=== PATIENT | male | born 1955 | race Caucasian/White ===

== ENCOUNTER 2018-02-07 18:53 | Emergency (ER) | payer OTHER, SELFPAY ==
[2018-02-07 18:56] VITALS: BP 146/64; PULSE 83; RESP 18; TEMP 36; O2SAT 98; BMI 30.5
--- NOTE | 2018-02-07 19:30 | RAD_ITS ---
XR Knee Complete 4 Views or More INDICATION: fall. right knee pain COMPARISON: September 2014. TECHNIQUE: 4 views of the right knee FINDINGS: Degenerative changes are noted at the right knee with subchondral cyst formation at the medial femoral condyle. Appearance is stable compared to 2014. The joint spaces are decreased at the medial compartment and patellofemoral compartment. Moderate marginal osteophytes are noted. A small suprapatellar knee joint effusion is suggested. Vascular calcifications are noted. RAD/Knee 4 or More Views IMPRESSION: Degenerative changes. No convincing plain film evidence of acute fracture. at 2019 Reported and signed by: Kate Sargent MD Electronically Signed: Kate Sargent MD at 19:17 EDT Tel , Service support ,
--- NOTE | 2018-02-07 21:07 | ED.VISSUMM ---
- ER Visit Summary Date of Service: 02/07/18 Chief Complaint: Fall from ladder History of Present Illness: The patient is a 62 M fall from ladder. Patient was on about a 3 foot step ladder today when he suffered a fall when he collapsed. Patient states that he landed on his feet and suffered a twisting injury as he fell to the left. Patient states that he was initially able to ambulate when he had the initial shot of adrenaline from the fall, but now is unable to bear weight on his right knee. He does report that he has prior injury to that right knee, but states that it was never this bad. Patient denies any other injuries. Physical Examination: Primary survey: Airway is patent, breath sounds equal bilateral, central peripheral pulses 2+ and symmetric, GCS 15 out of 15. Vitals within normal limits. Secondary survey: General: Well-nourished well-developed no acute distress Head: Normocephalic atraumatic Eyes: PERRLA, EOMI ENT: TMs clear no hemotympanum no drainage Neck: Nontender full range of motion, no step-offs noted Heart: Regular rate and rhythm no murmurs Lungs: Respirations nondistressed, lung sounds clear to auscultation bilaterally, chest nontender, normal chest excursion bilaterally Abdomen: Soft nontender nondistended normal bowel sounds no palpable abdominal masses Back: Nontender no step-offs noted Extremities: Right lower extremity exam shows effusion of the right knee with pain on range of motion with no crepitus or deformity. There is some medial joint line tenderness to palpation noted. No laxity with Ventura, posterior drawer, varus, or valgus stress. Skin: Normal color no trauma Neuro: Alert and oriented ?4, GCS 15 out of 15, no lateralizing neurological deficits. Test Results: Knee x-ray is negative for bony pathology per radiology Emergency Department Course and Treatment: Patient presented secondary to a knee injury. X-ray was found to be negative. Patient is unable to bear weight and has a joint effusion on concern for sprain versus ligamentous injury although there is no laxity. Patient was placed in a knee immobilizer was given crutches he will follow-up with orthopedics as well as corporate care. Disposition: Discharge Impression: 1. Right knee sprain This note was generated with [email or web address] dictation software. It may contain incorrect words, spelling, and punctuation that were not noted in review of the chart prior to signing ED Disposition - Plan for ED Patient: Disposition: Home or Assisted Living Chief Complaint: Fall Diagnosis: Knee sprain Instructions: ED Sprain Knee Referrals: Pia Loyola DO [STAFF PHYSICIAN] - As soon as possible Corporate,[facility] [GROUP OF PHYSICIANS] - As soon as possible
--- NOTE | 2018-02-07 21:14 | ED.DCSUM_ITS ---
- ER Visit Summary Date of Service: 02/07/18 Chief Complaint: Fall from ladder History of Present Illness: The patient is a 62 M fall from ladder. Patient was on about a 3 foot step ladder today when he suffered a fall when he collapsed. Patient states that he landed on his feet and suffered a twisting injury as he fell to the left. Patient states that he was initially able to ambulate when he had the initial shot of adrenaline from the fall, but now is unable to bear weight on his right knee. He does report that he has prior injury to that right knee, but states that it was never this bad. Patient denies any other injuries. Physical Examination: Primary survey: Airway is patent, breath sounds equal bilateral, central peripheral pulses 2+ and symmetric, GCS 15 out of 15. Vitals within normal limits. Secondary survey: General: Well-nourished well-developed no acute distress Head: Normocephalic atraumatic Eyes: PERRLA, EOMI ENT: TMs clear no hemotympanum no drainage Neck: Nontender full range of motion, no step-offs noted Heart: Regular rate and rhythm no murmurs Lungs: Respirations nondistressed, lung sounds clear to auscultation bilaterally , chest nontender, normal chest excursion bilaterally Abdomen: Soft nontender nondistended normal bowel sounds no palpable abdominal masses Back: Nontender no step-offs noted Extremities: Right lower extremity exam shows effusion of the right knee with pain on range of motion with no crepitus or deformity. There is some medial joint line tenderness to palpation noted. No laxity with Ventura, posterior drawer, varus, or valgus stress. Skin: Normal color no trauma Neuro: Alert and oriented ?4, GCS 15 out of 15, no lateralizing neurological deficits. Test Results: Knee x-ray is negative for bony pathology per radiology Emergency Department Course and Treatment: Patient presented secondary to a knee injury. X-ray was found to be negative. Patient is unable to bear weight and has a joint effusion on concern for sprain versus ligamentous injury although there is no laxity. Patient was placed in a knee immobilizer was given crutches he will follow-up with orthopedics as well as corporate care. Disposition: Discharge Impression: 1. Right knee sprain This note was generated with [employer] dictation software. It may contain incorrect words, spelling, and punctuation that were not noted in review of the chart prior to signing ED Disposition - Plan for ED Patient: Disposition: Home or Assisted Living Chief Complaint: Fall Diagnosis: Knee sprain Instructions: ED Sprain Knee Referrals: Pia Loyola DO [STAFF PHYSICIAN] - As soon as possible [facility] [GROUP OF PHYSICIANS] - As soon as possible
== END 2018-02-07 21:30 | disposition home or self-care (01) ==
PROVIDERS: Emergency Provider Emergency Medicine; Family Provider Internal Medicine; PCP Internal Medicine
DX: S83.91XA Sprain of unspecified site of right knee, initial encounter (principal); I10 Essential (primary) hypertension; E78.00 Pure hypercholesterolemia, unspecified; Z72.0 Tobacco use; Z79.82 Long term (current) use of aspirin; Z79.899 Other long term (current) drug therapy; W11.XXXA Fall on and from ladder, initial encounter; Y93.89 Activity, other specified; Y92.89 Other specified places as the place of occurrence of the external cause; Y99.0 Civilian activity done for income or pay
CPT/HCPCS: 73564; 99284

== ENCOUNTER → 2018-03-19 06:41 | Outpatient (CLI) | payer OTHER, SELFPAY ==
--- NOTE | 2018-03-19 06:45 | MRI_ITS ---
STUDY: MRI RIGHT KNEE REASON FOR EXAM: Medial knee pain, fall. TECHNIQUE: Standardized fat and water weighted pulse sequences were obtained in all 3 orthogonal planes. COMPARISON: Radiographs 02/07/2018 and MRI images 03/15/2014. FINDINGS: There is a complex tear of the posterior horn of the medial meniscus including a radial component extending to the root (T2 coronal images 9, 10) and a horizontal component (proton-density sagittal images 39, 40). There is arthrosis of the medial femorotibial compartment with marginal osteophytes, partial-thickness chondral loss (T2 sagittal image 21) and subchondral lesions of the medial femoral condyle and medial tibial plateau (proton-density sagittal images 12-15) with cystic change and mild bone edema (T2 sagittal images 22, 23). Normal medial collateral ligamentous complex (MCL). Normal distal semimembranosus, gracilis and semitendinosus tendons. Normal lateral meniscus. There is mild arthrosis of the lateral femorotibial compartment with mild partial-thickness chondral loss of the lateral tibial plateau (T2 sagittal image 9). Normal lateral femoral condyle and tibial plateau. Normal proximal tibiofibular articulation. Normal lateral collateral (fibular) ligament. Normal popliteus tendon. Normal biceps femoris tendon. There is intrasubstance mucoid degeneration of the anterior cruciate ligament (T2 sagittal image 14) without focal discontinuity of the ligament. Normal posterior cruciate ligament (PCL). Normal congruent patellofemoral articulation. There is arthrosis of the patellofemoral compartment with small marginal osteophytes and partial-thickness chondral loss (T2 sagittal image 15). Normal medial and lateral patellar retinaculum. Normal visualized quadriceps tendon. Normal patellar tendon. Normal Hoffa's fat pad. There is no joint effusion. There is mildly thickened medial patellar plica (T2 sagittal image 20; T2 axial image 11). There is mild edema in the anterior subcutis adipose space. There is mild bone edema in the proximal tibia near the insertion site of the anterior cruciate ligament. MRI/Lower Ext Joint Only (Routine) IMPRESSION: Medial meniscal tear. 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 Mildly thickened medial patellar plica. No demonstrated medial collateral ligament injury. Electronically Signed: Oral Evans MD at 8:34 EDT Tel , Service support ,
== END ==
PROVIDERS: Family Provider Internal Medicine; PCP Internal Medicine; Visit Provider Orthopaedic Surgery
DX: S83.411A Sprain of medial collateral ligament of right knee, initial encounter (principal)
CPT/HCPCS: 73721

== ENCOUNTER → 2018-09-16 16:40 | Outpatient (CLI) | payer BC, SELFPAY ==
--- NOTE | 2018-09-16 16:46 | RAD_ITS ---
STUDY: X-RAY CHEST REASON FOR EXAM: Male, 63 years old. Acute shortness of breath TECHNIQUE: PA and lateral views of the chest. COMPARISON: None. FINDINGS: Lungs are hyperexpanded with chronic interstitial changes, no superimposed acute pulmonary process. There is no demonstrated pleural abnormality. Normal size heart. Normal mediastinum and james. Normal visualized pulmonary arteries. Normal visualized aortic arch and descending thoracic aorta. There are diffuse degenerative changes of the visualized thoracic spine. There is degenerative osteoarthritis of the bilateral shoulders. There is no demonstrated abnormality of the visualized soft tissue structures of the upper abdomen. RAD/Chest PA and Lateral IMPRESSION: Hyperexpanded lungs with chronic interstitial changes, no superimposed acute pulmonary process Electronically Signed: Michael Ya MD at 17:05 EDT , Service support ,
== END ==
PROVIDERS: Family Provider Internal Medicine; PCP Internal Medicine; Referring Provider Family Medicine; Visit Provider Family Medicine
DX: J20.9 Acute bronchitis, unspecified (principal)
CPT/HCPCS: 71046

== ENCOUNTER → 2018-10-27 16:30 | Outpatient (CLI) | payer BC, SELFPAY ==
--- NOTE | 2018-10-27 16:33 | RAD_ITS ---
STUDY: X-RAY - RIGHT KNEE REASON FOR EXAM: Male, 63 years old. Pain, history of previous trauma TECHNIQUE: 4 view(s) of the knee. COMPARISON: None. FINDINGS: Some cortical irregularity along the medial articular surface of the distal femur suggests osteochondritis dissecans. Normal visualized proximal tibia and fibula. Normal proximal tibiofibular articulation. There is moderate degenerative arthrosis of the medial femorotibial compartment with moderate joint space narrowing. Normal lateral femorotibial compartment. There is mild degenerative arthrosis of the patellofemoral articulation. There is a soft tissue prominence in the suprapatellar region suggesting a small volume joint effusion. The soft tissue structures are unremarkable. RAD/Knee 3 Views IMPRESSION: Some cortical irregularity in the articular surface of the medial femur suggests osteochondritis dissecans. Tricompartmental arthrosis, most notably in the medial compartment Small suprapatellar effusion Electronically Signed: Michael Ya MD at 17:03 EST , Service support ,
--- OUTSIDE RECORDS SUMMARY | 2018-12-14 01:32 | XMS RPT_ITS ---
:1955 Author Organization OHIP Support Name Relationship Address Phone ELIJAH STEPHAN Unavailable [address] + [place] [address] MONRO MUFFLER Unavailable [address] + [place] [address] HIBBITTS, STEPHAN Unavailable [address] + [place] [address] MONRO MUFFLER Unavailable [address] + [place] [address] HIBBITTS, STEPHAN Unavailable [address] + [place] [address] MONRO MUFFLER Unavailable [address] + [place] [address] HIBBITTS, STEPHAN Unavailable [address] + [place] [address] MONRO MUFFLER Unavailable [address] + [place] [address] HIBBITTS, STEPHAN Unavailable [address] + [place] [address] MONRO MUFFLER Unavailable [address] + [place] [address] HIBBITTS, STEPHAN Unavailable [address] + [place] [address] MONRO MUFFLER Unavailable [address] + [place] [address] HIBBITTS, STEPHAN Unavailable [address] + [place] [address] MONRO MUFFLER Unavailable [address] + [place] [address] HIBBITTS, STEPHAN Unavailable [address] + [place] [address] MONRO MUFFLER Unavailable [address] + [place] [address] HIBBITTS, STEPHAN Unavailable [address] + [place] [address] MONRO MUFFLER Unavailable [address] + [place] [address] HIBBITTS, STEPHAN Unavailable [address] + [place] [address] MONRO MUFFLER Unavailable [address] + [place] [address] Care Team Providers Name Role Phone Gianfranco West Attending Unavailable Brett, Gianfranco Referring Unavailable Brett, Gianfranco Primary Care Unavailable PENVOSE, SUDHIR Primary Care Unavailable Kendall Hancock Attending Unavailable Jose Angel, Kendall Attending Unavailable PENVOSE, SUDHIR Referring Unavailable PENVOSE, SUDHIR Primary Care Unavailable Kendall Walter Attending Unavailable Jose Angel, Kendall Referring Unavailable PENVOSE, SUDHIR Primary Care Unavailable Jose Angel, Kendall Attending Unavailable PENZARISE, SUDHIR Referring Unavailable PENVOSE, SUDHIR Primary Care Unavailable Brett, Gianfranco Primary Care Unavailable NIKKI DEMPSEY Attending Unavailable West, Gianfranco Attending Unavailable Brett, Gianfranco Referring Unavailable Brett, Gianfranco Primary Care Unavailable Saranya Downey Attending Unavailable Gianfranco Wells Attending Unavailable RENZOSE, SUDHIR Referring Unavailable Rusty Self Attending Unavailable Rusty Self Referring Unavailable PENVOSE, SUDHIR Primary Care Unavailable ALBINO PFEIFFER Attending Unavailable RENZOSE, SUDHIR DUNG Referring Unavailable ALBINO PFEIFFER Referring Unavailable ALBINO PFEIFFER Attending Unavailable ALBINO PFEIFFER Referring Unavailable ALBINO PFEIFFER Attending Unavailable PENVOSE, LATONIA Referring Unavailable PENVOSE, LATONIA Primary Care Unavailable ALBINO PFEIFFER Attending Unavailable PENVOSE, LATONIA Referring Unavailable PENVOSE, LATONIA Primary Care Unavailable ALBINO PFEIFFER Attending Unavailable ALBINO PFEIFFER Referring Unavailable PENVOSE, LATONIA Primary Care Unavailable PROBLEMS PROBLEMS DATE TYPE CONDITION / CODE ATTENDING STATUS SOURCE 11/13/2018 Unknown I25.10 - Moodzohra, Active [place] Atherosclerotic Gianfranco [facility] heart disease of [facility] [place] coronary Repository artery without angina pectoris / I25.10(ICD-10) 10/28/2018 Unknown S83.206A - KE, Active [place] Unspecified tear of NIKKI [facility] unspecified Hospital meniscus, current Repository injury, right knee, initial encounter / S83.206A(ICD-10) 09/16/2018 Unknown J20.9 - Acute Rusty Self Active [place] bronchitis, E [facility] unspecified / Hospital J20.9(ICD-10) Repository 12/03/2018 Unknown S83.411A - Sprain of Kendall Walter Active [place] medial collateral Community ligament of right Hospital knee, initial Repository encounter / S83.411A(ICD-10) 02/10/2018 Active Atherosclerotic MARGARETTE, Active [place] heart disease of [facility] Other [place] coronary [place] artery without Repository angina pectoris / I25.10(ICD-10) 02/10/2018 Active Essential (primary) MARGARETTE, Active [place] hypertension / [facility] Other I10(ICD-10) [place] Repository 02/10/2018 Admitting Unknown / MARGARETTE, Active [place] [facility] diagnosis UNK(Unknown) [facility] [place] [facility] Repository PROCEDURES PROCEDURES No Procedure Records FoundRESULTS RESULTS CARDIOLOGY VISIT Observed: 11/13/2018 Status: F Source: [place] REPORT 12:35 PM [facility] REPOSITORY [facility] [address] [place] [address] OFFICE VISIT Date of Service: 11/13/18 MR#: [id number] Acct: [id number] Name: YARI LOPEZ Rep #: [id number] : 1955 Provider: Gianfranco Wells MD Age/Sex: 63/M Location: [facility] Status: Signed HPI HPI Details: YARI LOPEZ, is a 63 M who presents to the office today for outpatient cardiovascular consultation to establish cardiovascular care for history of underlying hyperlipidemia, hypertension, and CAD. He has previously been followed by cardiology in [place], [place] as well as [facility] cardiology in [place], [place]. He states many years ago, during an illness with respect to pneumonia, he underwent a diagnostic cardiac catheterization at [facility] in [place], [place]. To the best of his knowledge she had some element of underlying CAD but not significant and did not require any form of intervention. He denies any ongoing concerning chest discomfort at rest or with exertion. There has been no issues with overt CHF or pulmonary edema. Her has been no near syncope or syncope. He recently was evaluated by his previous mobile marketing manager, Dr. Albino Pfeiffer formally of [facility] cardiology, for his outpatient appointment. He states his Dr. Pfeiffer is due to retire he is now altering his cardiovascular care. However in the meantime Dr. Winter recommended that if the patient was going to have any form of knee surgery, which the patient may need based on previous orthopedic related issues, that he should be considered for a presurgical pharmacologic stress imaging study. This has not occurred at this time as the patient is not sure as to the future plans regarding his right knee related issues. He did have an ECG in the office today. He was noted to be in sinus rhythm. He had an incomplete right bundle branch block pattern. Otherwise he had no new acute changes. Intake Vital Signs11/13/18 Body Mass Index (BMI) 32.1 11/13/18 Height 6 ft 11/13/18 Weight: 223 lb 11/13/18 Body Mass Index (BMI) 30.2 11/13/18 Blood Pressure 142/64 H Intake Visit Reasons: CAD/Ref. West Allergies Penicillins Allergy (Verified 11/13/18 11:26) Swelling Medications Losartan Potassium [Cozaar] 50 mg PO DAILY 02/07/18 [History Confirmed 11/13/18] acetaminophen 325 mg capsule 325 mg PO Q4H PRN 11/03/18 [History Confirmed 11/13/18] albuterol sulfate 90 mcg/actuation breath activated powder inhaler 2 puff INHALATION Q4H PRN 11/03/18 [History Confirmed 11/13/18] pravastatin 10 mg tablet 10 mg PO DAILY 11/03/18 [History Confirmed 11/13/18] tadalafil 10 mg tablet 10 mg PO DAILY PRN 11/03/18 [History Confirmed 11/13/18] aspirin 325 mg tablet 650 mg PO DAILY tab 11/13/18 [History Confirmed 11/13/18] [facility] Medical History Essential hypertension (Chronic) Atherosclerotic heart disease of [place] coronary artery without angina pectoris (Chronic) Tobacco abuse (Chronic) Hyperlipemia (Chronic) IBS (irritable bowel syndrome) (Chronic) Surgical History History of foot surgery (Resolved) History of hernia repair (Resolved) Family History Father Heart disease Mother Heart disease Social History Smoking Status: Current every day smoker alcohol intake: current details: daily substance use type: does not use ROS Const Const: Negative for fatigue, weakness, weight gain, weight loss, frequent falls or excessive sweating Eyes Eyes: Negative for change in vision, blurry vision or transient loss of vision ENT ENT: Positive for balance problems (ambulates with a cane); negative for dizziness Cardio Chest Pain: No Palpitations: No Edema: None, Right (slight due to knee injury) Muscle aches with walking: None Resp Respiratory: Positive for Cough (productive); negative for SOB with activity or SOB at rest GI GI: Negative vomiting or vomiting blood/hematemesis : Negative for hematuria Musc Musc: Positive for balance problems (ambulates with a cane) and muscle aches/ myalgia (right knee, may have rt knee replacement); negative for muscle weakness or joint pain Skin Skin: Negative non-healing lesions or rash Neuro Neuro: Positive for vertigo (HX); negative for weakness, blurry vision, dizziness, lightheadedness, frequent falls or orthostatic symptoms [place] Hematologic/Lymphatic: Negative for easy bleeding Endo Endo: Negative for fatigue or excessive sweating Psych Psych: Negative for anxiety or depression Allergy Allergy/Immunology: Negative for hives, Negative for rash Cardiology Exam Const Appearance: cooperative, healthy appearing, comfortable, no acute distress, well developed and well groomed Nutritional Appearance: underweight Orientation: awake, alert and oriented x3 Head Head: normal to inspection, normocephalic and atraumatic Ears: hearing grossly normal bilaterally Nose: external nose normal Face and Sinus: face symmetric Mouth: oral mucosae normal Teeth and gingiva: fair dentition Eyes Eyelids: eyelids normal Conjunctivae: conjunctivae normal Pupils: PERRL Neck Neck: normal visual inspection Carotids: normal carotid upstroke Chest Chest inspection: normal inspection of the chest and symmetric chest movement Auscultation: Bilateral: Clear to Auscultation Cardio Palpation: normal PMI Rhythm: regular rhythm Heart sounds: S1 normal and S2 normal GI GI: normal to inspection, bowel sounds diminished and soft Neuro General: alert, awake, oriented x3, moves all extremities, no focal sensory deficit and no focal motor deficits Skin Skin: no rashes or lesions noted Extremities Pulses: Normal: Right Radial Pulse, Left Radial Pulse Lower Extremity Edema: None: Bilateral Psych Psychological: normal affect Assessment AND Plan 1. Atherosclerosis of [place] coronary artery of [place] heart without angina pectoris I25.10 Moderate per cath 2006 Plan At the present time he appears to be symptomatically and stable. He will continue risk factor evaluation care per A copy of a previous stress echocardiogram was obtained from 01/14/2014. At that time the study was reported as negative. This was performed through the [facility] institution. If and when the patient does elect to proceed with right knee surgery it would not be unreasonable based on his cardiovascular risk factors and previous diagnosis that he be considered for further evaluation of his cardiovascular status with a pharmacologic stress imaging study. Orders Orders: 2. Hyperlipidemia, unspecified hyperlipidemia type E78.5 Plan He will continue his lipid-lowering therapy. 3. Essential hypertension I10 Plan He will continue his antihypertensive therapy. This is going to be followed by his PCP 4. Tobacco abuse Z72.0 Plan He was counseled on the need to discontinue his tobacco use per Plan Detail Additional Comments He will be scheduled for future outpatient cardiovascular follow-up in approximately 1 year unless needed sooner. Thank you for allowing me to participate in the care of your patient. Please don't hesitate to call if any issues arise. This note was generated using a voice recognition system and there may be incorrect words, spelling or punctuation that were not noted when reviewing the office note prior to saving. Follow Up 1 Year (PFM) Coding Level of Care Code Off vis,new,level 3 Diagnoses Atherosclerosis of [place] coronary artery of [place] heart without angina pectoris I25.10 [place] vs. transplanted heart: [place] heart Hyperlipidemia, unspecified hyperlipidemia type E78.5 Hyperlipidemia type: unspecified Essential hypertension I10 Tobacco abuse Z72.0 Coding Level of Care Code Off vis,new,level 3 Diagnoses Atherosclerosis of [place] coronary artery of [place] heart without angina pectoris I25.10 [place] vs. transplanted heart: [place] heart Hyperlipidemia, unspecified hyperlipidemia type E78.5 Hyperlipidemia type: unspecified Essential hypertension I10 Tobacco abuse Z72.0 11/13/18 1235 <Electronically signed by Gianfranco Wells MD> Date Gianfranco Wells MD Cosigner Signature: Date (if applicable) CC: Gianfranco West MD 12 LEAD EKG PERFORMED Observed: 11/13/2018 Status: F Source: [place] [facility] 11:23 AM [facility] REPOSITORY [facility] [address] [place] [address] 12 Lead EKG performed by [facility] 11/13/182 MR#: [id number] Acct: [id number] Name: YARI LOPEZ Rep #: [id number] : 1955 63 From: Gianfranco Wells MD Attending Dr: Gianfranco Wells MD Status: DEP AMB Ordering Dr: Gianfranco Wells MD Date: 11/13/18 Location: [facility] Sex: M C Admitted: [facility]12 Lead EKG performed by [facility] ECG Report Interpretation Sinus Rhythm Incomplete right bundle branch block. ABNORMAL Electronically signed on 11/13/2018 at 16:19 by Gianfranco Wells[employer] Software Version [id number] 11/13/18 1620 Date Gianfranco Wells MD CC: SUDHIR MARCELINO Date Dictated: 11/13/181121 Date Transcribed: 11/13/181121 Field Interviewer: PM Signed BASIC METABOLIC Collected: 10/30/2018 Status: F Source: [place] PROFILE (BMP) 11:14 AM [facility] REPOSITORY TYPE CODE TESTS RESULT OUT OF RANGE REFERENCE UNITS LAB L501.0100 74-106 mg/dL Normal GLU 103 Result Comment: Fasting Glucose result from 100 to 125 mg/dL suggests IMPAIRED HOMEOSTASIS per A.D.A. criteria. Please note revised GLUCOSE reference range effective 2017. LAB L501.1000 7-18 mg/dL Normal BUN 16 LAB L501.1100 0.70-1.30 mg/dL Normal CREAT,SERUM 0.84 Result Comment: The validity of the calculated GFR AND GFRAA in patients over 70 years has not been determined. Clinical correlation is essential. LAB L501.1110 >60 mL/min Normal EST GFR 99 Result Comment: Non- GFR Calc LAB L501.1115 >60 mL/min Normal EST GFR - AA 120 Result Comment: GFR Calc LAB L501.1300 10-20 RATIO Normal BUN/CRE 19.1 LAB L501.2200 8.5-10.1 mg/dL CA Normal 9.7 LAB L501.5300 136-145 mmol/L NA Normal 137 LAB L501.5600 3.5-5.1 mmol/L K Normal 4.1 LAB L501.5900 98-107 mmol/L CL Normal 103 LAB L501.6100 21.0-32.0 mmol/L Normal CO2 25.0 LAB L501.6200 5-15 Normal GAP 9 Performed By: #### L500.2500, L500.4100, L501.9910 #### [facility] [address] [place], [place], [address] LIPID PROFILE Collected: 10/30/2018 Status: F Source: [place] 11:14 AM [facility] REPOSITORY TYPE CODE TESTS RESULT OUT OF RANGE REFERENCE UNITS LAB L501.4900 200 mg/dL Normal CHOL 150 Result Comment: <200 mg/dL Desirable 200-240 mg/dL Borderline >240 mg/dL High Risk LAB L501.5000 mg/dL Normal TRIG 105 Result Comment: The drugs N-Acetylcysteine and Metamizole may falsely depress this assay. Serum Triglycerides Reference Interval Normal <150 mg/dL Borderline high 150 - 199 mg/dL High 200 - 499 mg/dL Very High > or = 500 mg/dL LAB L501.6400 mg/dL Normal HDL 53 Result Comment: The drugs N-Acetylcysteine and Metamizole may falsely depress this assay. Reference Range HDL <40 mg/dL Low HDL Cholesterol HDL >or= 60 mg/dL High HDL Cholesterol LAB L501.6500 0-130 mg/dL Normal LDL 76 LAB L501.6600 5-40 mg/dL Normal VLDL 21 Performed By: #### L500.2500, L500.4100, L501.9910 #### [facility] [address] [place], [address] PSA,TOTAL - ANNUAL Collected: 10/30/2018 Status: F Source: [place] SCREEN 11:14 AM [facility] REPOSITORY TYPE CODE TESTS RESULT OUT OF RANGE REFERENCE UNITS LAB L501.9910 0.00-4.00 ng/mL Normal PSA,TOT 1.56 SCREEN Result Comment: This test was performed using the TPSA assay method for the [employer] chemistry system. Values obtained with different assay methods cannot be used interchangably. When changing PSA assays in the course of monitoring a patient, additional sequential testing should be carried out to confirm baseline values. Performed By: #### L500.2500, L500.4100, L501.9910 #### [facility] [address] [place], [address] VITAMIN D,25 HYDROXY Collected: 10/30/2018 Status: F Source: [place] 11:14 AM [facility] REPOSITORY TYPE CODE TESTS RESULT OUT OF REFERENCE UNITS RANGE LAB L506.1000 29.95-100.01 ng/mL Low Vitamin D 10.8 25-OH Result Comment: Vitamin D 25(OH) Status Range Deficiency <20 ng/mL (50nmol/L) Insuffciency 20 - 30 ng/mL (50 - 75 nmol/L) Sufficiency 30 - 100 ng/mL (75 - 250 nmol/L) Toxicity >100 ng/mL (>250 nmol/L) Performed By: #### L506.1000 #### [facility] [address] [place], [address] EMERGENCY DEPARTMENT Observed: 10/27/2018 Status: F Source: [place] SUMMARY 6:40 PM [facility] REPOSITORY [facility] Medical Records Department [address] [place] [address] Emergency Department Summary 10/27/18 1831 MR#: [id number] Acct: [id number] Name: ELIJAHBARTYARI K Rep #: [id number] : 1955 63 From: Nikki Dempsey MD PCP: Gianfranco West MD Status: REG ER History of Present Illness Chief Complaint: Lower Extremity Injury Informant: Patient Onset: Days - 2-3 Context: Gradual Onset - chronic pain x 4 mos since injury, found to be meniscus tear, worse x 2-3 days w/o new injury; now swollen Timing: Continuous Quality: ache Location: right knee Current Severity: Severe Maximum Severity: Severe Worsened by: bending or straightening it out Relieved by: remaining still Associated Symptoms: swelling. no redness or fevers. Narrative: Called PCP today and had an outpt knee XR for this same issue. Here due to intense pain and tylenol/ibuprofen not helping. Sched to see PCP in 2d for cortisone injection in same knee. Past Medical History - Allergies and Home Meds Allergies/Adverse Reactions: Allergies Penicillins Allergy (Verified 02/07/18 18:55) Swelling Primary Care Physician: Gianfranco West MD [Primary Care Provider] - Past Medical History: None Lives: Spouse/ Significant Other Smoking Status: Current every day smoker Review of Systems All systems negative except as indicated General: Denies: Chills, Fever Musculoskeletal: Reports: Swelling - right knee only, Extremity Pain. Denies: Neck pain, Back pain Skin: Denies: Rash, Abscess, Wounds Neurological: Denies: Headache, Weakness, Parasthesia, Numbness Physical Exam Vital Signs/Narrative: Vital Signs 10/27/18 17:10 97.8 F 80 16 145/87 H 99 Inital Vital Signs reviewed: Yes General: Well nourished, Well developed, - - nad Head: Normocephalic, Atraumatic Extremities: Tenderness - diffuse anterior right knee, - - + knee effusion right knee. very limited ROM, but good short arc ROM from about30 degrees of flexion to almost complete extension. all ligaments stable w/ short end points and no pain on stressing. Skin: Normal color, No rash, - - no erythema or excessive warmth right knee Neurological: Alert, Oriented x3, Cranial nerves II-XII grossly intact, Normal Strength, Normal Sensation Psychological: Normal affect Diagnostic/Tx/Re-eval - Medical Decision Making I reviewed the x-ray report from his outpatient knee x-ray from today, did show a small effusion, triple compartment arthrosis, and osteochondritis dissecans. I think he would probably benefit acutely from withdrawing fluid from the effusion, however since he is going to have an injection in 2 days in the same knee, I advised that he wait until then to have it done at the same time with a single needle placed in his joint, as opposed to doing it twice, which would increase his risk for iatrogenic septic arthritis. He agrees and is comfortable with medical pain control for now. ED Disposition - Plan for ED Patient: Disposition: Home or Assisted Living Chief Complaint: Lower Extremity Injury Diagnosis: Right knee meniscal tear, Effusion, right knee Instructions: ED Effusion Knee Prescriptions: Oxycodone HCl/Acetaminophen [Percocet 5/325] 1 tab PO Q6H PRN PRN 3 Days #12 tab PRN Reason: Pain Referrals: Gianfranco West MD [Primary Care Provider] - Keep Anahy appointment What to do if you have Problems For any increased pain, shortness of breath, bleeding, nausea or vomiting, chest pain, or any unexpected problems, contact your Primary Care Provider. Call [facility] ([phone]) or report to the closest Emergency Room. Call 911 if necessary. 10/27/18 1840 <Electronically signed by Nikki Dempsey MD> Date Nikki Dempsey MD Cosigner Signature (If Indicated): Date CC: Gianfranco West MD KNEE 3 VIEWS Observed: 10/27/2018 Status: F Source: [place] 4:33 PM [facility] REPOSITORY [facility] Imaging Services [address] [place] [address] Knee 3 Views MR#: [id number] Acct: [id number] Name: YARI LOPEZ Rep #: [id number] : 1955 M 63 From: Theo Ya MD PCP: Gianfranco West MD Status: REG CLI Study: Knee 3 Views Date of Exam: 10/27/18 Exam# [id number] Ordering Dr: Gianfranco West MD STUDY: X-RAY - RIGHT KNEE REASON FOR EXAM: Male, 63 years old. Pain, history of previous trauma TECHNIQUE: 4 view(s) of the knee. COMPARISON: None. FINDINGS: Some cortical irregularity along the medial articular surface of the distal femur suggests osteochondritis dissecans. Normal visualized proximal tibia and fibula. Normal proximal tibiofibular articulation. There is moderate degenerative arthrosis of the medial femorotibial compartment with moderate joint space narrowing. Normal lateral femorotibial compartment. There is mild degenerative arthrosis of the patellofemoral articulation. There is a soft tissue prominence in the suprapatellar region suggesting a small volume joint effusion. The soft tissue structures are unremarkable. RAD/Knee 3 Views IMPRESSION: Some cortical irregularity in the articular surface of the medial femur suggests osteochondritis dissecans. Tricompartmental arthrosis, most notably in the medial compartment Small suprapatellar effusion Electronically Signed: Michael Ya MD at 17:03 EST , Service support , CC: Gianfranco West MD Field Interviewer: Signed PROGRESS Observed: 10/16/2018 Status: COMPLETED Source: [place] 10:59 AM [facility] REPOSITORY HNO ID: [id number] Author: Albino Pfeiffer Service: (none) Author Type: Physician Type: Progress Notes Filed: 10/16/2018 11:25 AM Note Text: PERTINENT CARDIAC HISTORY ASHD - moderate by cath 2006 HL HTN Tobacco use ADHERENCE TO GUIDELINES YANNICK-I or ARB for HF with prior LVEF<40 (NQF 0081) - N/A ASA or Plavix for ASHD (NQF 0067) - met Beta gideon for ASHD with prior LA or prior LVEF<40 (NQF 0070) - N/A Beta gideon for HF with prior LVEF<40 (NQF 0083) - N/A YANNICK-I or ARB for ASHD with DM or prior LVEF<40 (NQF 0066) - met Statin therapy for ASHD or FHL or DM - met BMI documented and plan if >25 (NQF 0421) - lifestyle recommendation form Tobacco use screening and referral (NQ 0028) - lifestyle recommendation form Recommendation for whole food, plant based diet - lifestyle recommendation form CLINICAL IMPRESSION/PLAN: Yari Lopez has stable ischemic heart disease, but has not been able to exercise to greater than 4 METs of activity. I recommend that he have pharmacologic stress test prior to surgery. I've asked him to contact me when arrangements are made. He has been using 2 different nonsteroidals for knee pain. He is also using Tylenol. He has an appointment with primary care today and I've asked him to discuss this. He has not had any recent injections. He be seen in 12 months or as needed. Written and verbal health teaching given to patient, patient verbalizes understanding and agrees with treatment plan. DIAGNOSIS FOR VISIT: ASHD Hypertension HISTORY OF PRESENT ILLNESS Yari Lopez returns for follow-up of his coronary disease and hypertension. He has not yet had his surgery. He is dealing with issues surrounding a potential Workmen's Comp claim. He reports no chest discomfort. Exercise tolerance has been limited by his knee. He's had no orthopnea or edema. He denies syncope, palpitations, TIAs, amaurosis and claudication. ALLERGIES: ALLERGIES Allergen Reactions - Penicillins Swelling CURRENT OUTPATIENT MEDICATIONS: NAPROXEN ORAL Take 220 mg by mouth. Takes 2 Ibuprofen 200 mg cap Take by mouth. Takes 2 nitroglycerin sublingual (NITROSTAT) 0.4 mg SL tablet Dissolve 1 tablet under the tongue as needed. FOR CHEST PAIN. IF NO RELIEF CALL 911 Tadalafil (CIALIS) 10 mg tablet Take 1 tablet by mouth as needed. acetaminophen (TYLENOL) 325 mg tablet Take 2 tablets by mouth every 4 hours as needed. FOR PAIN. aspirin 325 mg tablet Take 1 tablet by mouth once daily. pravastatin (PRAVACHOL) 80 mg tablet Take 1 tablet by mouth once daily. losartan (COZAAR) 50 mg tablet Take 1 tablet by mouth once daily. PHYSICAL EXAMINATION: VITAL SIGNS: BP 131/89 Pulse 84 Ht 6' 0 (1.83m) Wt 227 lb 9.6 oz (103.2kg) BMI 30.86 kg/(m2). Chest: Clear to auscultation. Trachea is midline. Air entry is equal. Cardiac: Regular rhythm. S1 and S2 are normal. PMI is nondisplaced. There is a soft systolic ejection murmur. Carotids are brisk without bruits. JVP is less than 10 cm. Abdomen: Soft and nontender. There are no pulsatile masses or bruits. No liver enlargement. Bowel sounds are active. Extremities: No edema. Pulses are intact and symmetrical. Recent labs were reviewed. Renal function is normal. LDL had improved 85. Electronically Signed: Albino Pfeiffer MD October 16, 2018 10:59 AM CC: DO SATISH Page Observed: 10/16/2018 Status: COMPLETED Source: [place] 10:30 AM [facility] REPOSITORY Office Visit (CAWSTR) YARI LOPEZ ([id number]) 1955 M Date Time Provider Department 10/16/18 10:30 AM ALBINO PFEIFFERWSTR During your visit today, we recorded the following information about you: Pulse Blood pressure Weight Height 84/minute 131/89 103.2 kg 1.829 m Albino Pfeiffer MD 10/16/2018 11:25 AM Signed PERTINENT CARDIAC HISTORY ASHD - moderate by cath 2006 HL HTN Tobacco use ADHERENCE TO GUIDELINES YANNICK-I or ARB for HF with prior LVEF<40 (NQF 0081) - N/A ASA or Plavix for ASHD (NQF 0067) - met Beta gideon for ASHD with prior LA or prior LVEF<40 (NQF 0070) - N/A Beta gideon for HF with prior LVEF<40 (NQF 0083) - N/A YANNICK-I or ARB for ASHD with DM or prior LVEF<40 (NQF 0066) - met Statin therapy for ASHD or FHL or DM - met BMI documented and plan if >25 (NQF 0421) - lifestyle recommendation form Tobacco use screening and referral (NQ 0028) - lifestyle recommendation form Recommendation for whole food, plant based diet - lifestyle recommendation form CLINICAL IMPRESSION/PLAN: Yari Lopez has stable ischemic heart disease, but has not been able to exercise to greater than 4 METs of activity. I recommend that he have pharmacologic stress test prior to surgery. I've asked him to contact me when arrangements are made. He has been using 2 different nonsteroidals for knee pain. He is also using Tylenol. He has an appointment with primary care today and I've asked him to discuss this. He has not had any recent injections. He be seen in 12 months or as needed. Written and verbal health teaching given to patient, patient verbalizes understanding and agrees with treatment plan. DIAGNOSIS FOR VISIT: ASHD Hypertension HISTORY OF PRESENT ILLNESS Yari Lopez returns for follow-up of his coronary disease and hypertension. He has not yet had his surgery. He is dealing with issues surrounding a potential Workmen's Comp claim. He reports no chest discomfort. Exercise tolerance has been limited by his knee. He's had no orthopnea or edema. He denies syncope, palpitations, TIAs, amaurosis and claudication. ALLERGIES: ALLERGIES Allergen Reactions - Penicillins Swelling CURRENT OUTPATIENT MEDICATIONS: NAPROXEN ORAL Take 220 mg by mouth. Takes 2 Ibuprofen 200 mg cap Take by mouth. Takes 2 nitroglycerin sublingual (NITROSTAT) 0.4 mg SL tablet Dissolve 1 tablet under the tongue as needed. FOR CHEST PAIN. IF NO RELIEF CALL 911 Tadalafil (CIALIS) 10 mg tablet Take 1 tablet by mouth as needed. acetaminophen (TYLENOL) 325 mg tablet Take 2 tablets by mouth every 4 hours as needed. FOR PAIN. aspirin 325 mg tablet Take 1 tablet by mouth once daily. pravastatin (PRAVACHOL) 80 mg tablet Take 1 tablet by mouth once daily. losartan (COZAAR) 50 mg tablet Take 1 tablet by mouth once daily. PHYSICAL EXAMINATION: VITAL SIGNS: BP 131/89 Pulse 84 Ht 6' 0 (1.83m) Wt 227 lb 9.6 oz (103.2kg) BMI 30.86 kg/(m2). Chest: Clear to auscultation. Trachea is midline. Air entry is equal. Cardiac: Regular rhythm. S1 and S2 are normal. PMI is nondisplaced. There is a soft systolic ejection murmur. Carotids are brisk without bruits. JVP is less than 10 cm. Abdomen: Soft and nontender. There are no pulsatile masses or bruits. No liver enlargement. Bowel sounds are active. Extremities: No edema. Pulses are intact and symmetrical. Recent labs were reviewed. Renal function is normal. LDL had improved 85. Electronically Signed: Albino Pfeiffer MD October 16, 2018 10:59 AM CC: DO Albino Page MD 10/16/2018 10:59 AM Signed LIFESTYLE CHANGE A healthy lifestyle is the most important component of your overall treatment plan. Please give serious thought to the following areas and commit to making ocean transportation intermediary changes. EAT A WHOLE FOOD, PLANT BASED DIET The nutrition your body gets is more important than the medicine you take. What matters most is the overall way you eat. We encourage you to minimize the use of animal products (which include dairy and all meats except fatty fish) and use whole, unprocessed plant foods to provide your protein, vitamins and other nutrients. We have a lot of information to share with you on this topic. This is not a diet. It is a way of life that you will keep with you. EXERCISE REGULARLY It is not important to spend hours in the gym, lifting weights and perspiring heavily. A total of 2-3 hours per week of aerobic (causing you to be moderately short of breath) exercise is sufficient to improve your health. Talk to us before you begin a new exercise program, if you have heart disease or experience shortness of breath or chest pain. REDUCE STRESS Chronic emotional and physical stress leads to disease. Ways of reducing stress include meditation, visualization, prayer, yoga and other forms of relaxation therapy. Consistency is the linder. Find a technique that works for you and do it every day. CULTIVATE RELATIONSHIPS Loneliness and isolation have a major negative impact on health. Seek out others who can love, care for and nurture you. Avoid hurtful relationships. MAINTAIN IDEAL BODY WEIGHT The best way to do this is to do all the things above. Our bodies naturally find the right weight if we keep moving and feed ourselves the right food. If your BMI is greater than 25, we strongly recommend a referral to a weight management program. Please speak to us or your family physician about available programs. AVOID NICOTINE IN ALL FORMS This includes all tobacco products, whether chewed, smoked, vaped, or rubbed on the skin. Smoking cessation programs, which can make use of tobacco substitutes, medications to suppress cravings and behavior management, are available. Please contact your family physician about programs in your area. Referring Provider: ALBINO PFEIFFER [[id number]] Allergies As of Date: 10/16/2018 Noted Allergy Reaction PENICILLINS 12/26/2010 7 - Swelling Date Reviewed: 10/16/2018 Reviewed by: Nancy Rodriguez MA - Fully Assessed Reason for Visit: Established Patient [175] Primary Visit Diagnosis:Hypertension, essential [I10] Other Visit Diagnosis:ASHD (arteriosclerotic heart disease) [I25.10] Order(s):pravastatin (PRAVACHOL) 80 mg tabletTake 1 tablet by mouth once daily.Disp: 90 tabletRfl: 3 losartan (COZAAR) 50 mg tabletTake 1 tablet by mouth once daily.Disp: 90 tabletRfl: 3 Prescriptions as of 10/16/2018 Sig: NAPROXEN ORAL Take 220 mg by mouth. Takes 2 IBUPROFEN 200 MG CAPSULE Take by mouth. Takes 2 NITROGLYCERIN 0.4 MG SUBLINGU* Dissolve 1 tablet under the t* TADALAFIL 10 MG TABLET Take 1 tablet by mouth as nee* ACETAMINOPHEN 325 MG TABLET Take 2 tablets by mouth every* ASPIRIN 325 MG TABLET Take 1 tablet by mouth once d* PRAVASTATIN 80 MG TABLET Take 1 tablet by mouth once d* LOSARTAN 50 MG TABLET Take 1 tablet by mouth once d* Problem List As Of Date 10/16/2018 Noted Resolved Coronary arteriosclerosis in [place] artery [I25*INVALID FOR* Chest discomfort [R07.89] INVALID FOR* Heart murmur, systolic [R01.1] INVALID FOR* SOB (shortness of breath) on exertion [R06.02] INVALID FOR* Fatigue [R53.83] INVALID FOR* Dyslipidemia [E78.5] INVALID FOR* Tobacco abuse [Z72.0] INVALID FOR* Essential hypertension [I10] INVALID FOR* Other instructions from your clinician: LIFESTYLE CHANGE A healthy lifestyle is the most important component of your overall treatment plan. Please give serious thought to the following areas and commit to making ocean transportation intermediary changes. EAT A WHOLE FOOD, PLANT BASED DIET The nutrition your body gets is more important than the medicine you take. What matters most is the overall way you eat. We encourage you to minimize the use of animal products (which include dairy and all meats except fatty fish) and use whole, unprocessed plant foods to provide your protein, vitamins and other nutrients. We have a lot of information to share with you on this topic. This is not a diet. It is a way of life that you will keep with you. EXERCISE REGULARLY It is not important to spend hours in the gym, lifting weights and perspiring heavily. A total of 2-3 hours per week of aerobic (causing you to be moderately short of breath) exercise is sufficient to improve your health. Talk to us before you begin a new exercise program, if you have heart disease or experience shortness of breath or chest pain. REDUCE STRESS Chronic emotional and physical stress leads to disease. Ways of reducing stress include meditation, visualization, prayer, yoga and other forms of relaxation therapy. Consistency is the linder. Find a technique that works for you and do it every day. CULTIVATE RELATIONSHIPS Loneliness and isolation have a major negative impact on health. Seek out others who can love, care for and nurture you. Avoid hurtful relationships. MAINTAIN IDEAL BODY WEIGHT The best way to do this is to do all the things above. Our bodies naturally find the right weight if we keep moving and feed ourselves the right food. If your BMI is greater than 25, we strongly recommend a referral to a weight management program. Please speak to us or your family physician about available programs. AVOID NICOTINE IN ALL FORMS This includes all tobacco products, whether chewed, smoked, vaped, or rubbed on the skin. Smoking cessation programs, which can make use of tobacco substitutes, medications to suppress cravings and behavior management, are available. Please contact your family physician about programs in your area. Prescriptions ordered this encounter Disp Refills Start End PRAVASTATIN 80 MG TABLET 90 t* 3 10/16/2018 Route: ORAL Sig: Take 1 tablet by mouth once daily. LOSARTAN 50 MG TABLET 90 t* 3 10/16/2018 Route: ORAL Sig: Take 1 tablet by mouth once daily. Medications Discontinued During This Encounter naproxen sodium (ALEVE) 220 mg tablet 12/14/2013 10/16/2018 Class: OTC Sig: TAKES 2 PILLS 3-4 TIMES PER WEEK NEEDED. Disc: Reason for discontinue is not on file. Cosign accepted by ARIC CORONA DO[[id number]] on 12/14/2013 4:51 PM pravastatin (PRAVACHOL) 80 mg tablet 90 t* 3 12/18/2017 10/16/2018 Sig: TAKE 1 TABLET DAILY Disc: Reason for discontinue is not on file. losartan (COZAAR) 50 mg tablet 90 t* 3 12/18/2017 10/16/2018 Sig: TAKE 1 TABLET DAILY Disc: Reason for discontinue is not on file. Encounter Status:Closed by ALBINO PFEIFFER MD on 10/16/18 CHEST PA AND LATERAL Observed: 09/16/2018 Status: F Source: JOFFRE 4:46 PM [facility] REPOSITORY [facility] Imaging Services [address] [place] [address] Chest PA and Lateral MR#: [id number] Acct: [id number] Name: YARI LOPEZ Rep #: [id number] : 1955 M 63 From: Theo Ya MD PCP: SUDHIR MARCELINO Status: REG CLI Study: Chest PA and Lateral Date of Exam: 09/16/18 Exam# [id number] Ordering Dr: Rusty Self MD STUDY: X-RAY CHEST REASON FOR EXAM: Male, 63 years old. Acute shortness of breath TECHNIQUE: PA and lateral views of the chest. COMPARISON: None. FINDINGS: Lungs are hyperexpanded with chronic interstitial changes, no superimposed acute pulmonary process. There is no demonstrated pleural abnormality. Normal size heart. Normal mediastinum and james. Normal visualized pulmonary arteries. Normal visualized aortic arch and descending thoracic aorta. There are diffuse degenerative changes of the visualized thoracic spine. There is degenerative osteoarthritis of the bilateral shoulders. There is no demonstrated abnormality of the visualized soft tissue structures of the upper abdomen. RAD/Chest PA and Lateral IMPRESSION: Hyperexpanded lungs with chronic interstitial changes, no superimposed acute pulmonary process Electronically Signed: Michael Ya MD at 17:05 EDT , Service support , CC: Rusty Sefl MD; SUDHIR MARCELINO Field Interviewer: Signed ORTHOPEDIC VISIT Observed: 04/02/2018 Status: F Source: [place] REPORT 9:14 AM [facility] REPOSITORY [facility] Orthopa[facility] Sports [facility] [address] [address] OFFICE VISIT Date of Service: 03/21/18 MR#: [id number] Acct: [id number] Name: YARI LOPEZ Rep #: [id number] : 1955 Provider: Kendall Walter DO Age/Sex: 62/M [place] [facility] [place] Status: Signed Intake Intake Visit Reasons: RIGHT KNEE Is patient in pain?: Yes Pain scale (1-10): 2 Allergies Penicillins Allergy (Verified 02/07/18 18:55) Swelling Medications Aspirin [Aspirin, Baby] 81 mg PO DAILY@0800 01/25/14 [History Confirmed 02/07/18] Losartan Potassium [Cozaar] 50 mg PO DAILY 02/07/18 [History Confirmed 02/07/18] Pravastatin [Pravachol] 80 mg PO QHS 02/07/18 [History Confirmed 02/07/18] PFSH Social History Smoking Status: Current every day smoker HPI RIGHT KNEE: Details: YARI LOPEZ is a 62 year old M here today for MRI review of his right knee. He states that his pain has been better the last couple of days but he still walks with an antalgic gait but unassisted. Denies numbness, tingling or other associated symptoms. Mild swelling today. ROS Musc Reports joint pain, Reports joint swelling, Reports stiffness, Reports limited joint movement, Reports as per HPI Ortho Exam Right Knee Contralateral Normal: Yes Swelling: Yes Homans Sign: No 1+: Effusion Knee ROM: Yes ROM-Flexion 0-140 (0 125) Examination: Yes Med jt line tenderness, Yes Crepitus, Yes Pain with flexion, Yes Jorge Luis's Test Quad Atrophy: No Stability: NML: Anterior Drawer, NML: Ventura, NML: Posterior Drawer, NML: Valgus 0, NML: Varus 0, NML: Varus 30, NML: Dial 90, NML: Dial 30, 1+: Valgus 30 Popliteal Adenopathy: No Apprehension with Lateral Translation: No Patellar Tilt Normal: Yes Patella Grind: No KNEE: Patient otherwise alert oriented 3 no acute distress. Appropriate eye contact and affect. Walks with improved gait today. Continues have medial joint line tenderness palpation. He continues have Jorge Luis's maneuver. He has mild crepitus across the medial compartment with motion. He has a +1 effusion noted today. No obvious popliteal masses no calf pain negative Homans. EHL anterior gastrosoleus peroneals quads hamstrings 5 out of 5. MRI: Evaluated myself patient-patient shows chondromalacia of the patella he shows a medial meniscus tear with extrusion and probable either a radial tear into the horn versus root changes. He has an osteochondral defect to the medial femoral condyle associated edge loading chondrosis to the medial tibial plateau. Assessment AND Plan Problems 1. Sprain of medial collateral ligament of right knee, subsequent encounter S83.411D 2. Primary osteoarthritis of right knee M17.11 3. Sprain of medial collateral ligament of right knee, initial encounter S83.411A Plan Assessment: Right knee osteoarthritis and associated osteochondral defect with a medial meniscus tear and associated MCL strain. Plan: At this point time I discussed with the patient his treatment options. The patient had originally been approved for an injection but feels this time his knee is getting a little bit better in terms of treatment he rather hold off on performing an injection so that may be apprehension which is understandable. I told the patient after review his MRI that his lesion that was previously seen on his plain films and it may have been an old lesion I have no idea looks a little bit worse he has subchondral bony edema he has meniscal extrusion with associated again he is a radial tear versus a root tear into the meniscus. That is not fixable. I think ultimately if the patient remains symptomatic a diagnostic scope would be warranted at a minimum otherwise based on the remaining portion of the patient's MRI findings a unicompartmental arthroplasty in the future is probably going to be warranted for this patient in the long-term. 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 For now we will hold off on the injection and we will submit for a medial off crusher loader equipment operator brace to provide stability for his MCL pain and also medial compartment arthrosis. Any major issues please contact. Coding Level of Care Code Off vis,est,level 4 Diagnoses Sprain of medial collateral ligament of right knee, subsequent encounter S83.411D Encounter type: subsequent encounter Involved ligament of knee: medial collateral ligament Primary osteoarthritis of right knee M17.11 Osteoarthritis type: primary Sprain of medial collateral ligament of right knee, initial encounter S83.411A 04/02/18 0914 <Electronically signed by Kendall Walter DO> Date Kendall Walter DO Cosigner Signature: Date (if applicable) CC: LOWER EXT JOINT ONLY Observed: 03/19/2018 Status: F Source: JOFFRE (ROUTINE) 6:45 AM [facility] REPOSITORY [facility] Imaging Services [address] [place] [id number] Lower Ext Joint Only (Routine) MR#: [id number] Acct: [id number] Name: YARI LOPEZ Rep #: [id number] : 1955 62 From: Oral Evans MD PCP: SUDHIR MARCELINO Status: REG CLI Study: Lower Ext Joint Only (Routine) Date of Exam: 03/19/18 Exam# [id number] Ordering Dr: Kendall Walter DO STUDY: MRI RIGHT KNEE REASON FOR EXAM: Medial knee pain, fall. TECHNIQUE: Standardized fat and water weighted pulse sequences were obtained in all 3 orthogonal planes. COMPARISON: Radiographs 02/07/2018 and MRI images 03/15/2014. FINDINGS: There is a complex tear of the posterior horn of the medial meniscus including a radial component extending to the root (T2 coronal images 9, 10) and a horizontal component (proton-density sagittal images 39, 40). There is arthrosis of the medial femorotibial compartment with marginal osteophytes, partial-thickness chondral loss (T2 sagittal image 21) and subchondral lesions of the medial femoral condyle and medial tibial plateau (proton-density sagittal images 12-15) with cystic change and mild bone edema (T2 sagittal images 22, 23). Normal medial collateral ligamentous complex (MCL). Normal distal semimembranosus, gracilis and semitendinosus tendons. Normal lateral meniscus. There is mild arthrosis of the lateral femorotibial compartment with mild partial-thickness chondral loss of the lateral tibial plateau (T2 sagittal image 9). Normal lateral femoral condyle and tibial plateau. Normal proximal tibiofibular articulation. Normal lateral collateral (fibular) ligament. Normal popliteus tendon. Normal biceps femoris tendon. There is intrasubstance mucoid degeneration of the anterior cruciate ligament (T2 sagittal image 14) without focal discontinuity of the ligament. Normal posterior cruciate ligament (PCL). Normal congruent patellofemoral articulation. There is arthrosis of the patellofemoral compartment with small marginal osteophytes and partial-thickness chondral loss (T2 sagittal image 15). Normal medial and lateral patellar retinaculum. Normal visualized quadriceps tendon. Normal patellar tendon. Normal Hoffa's fat pad. There is no joint effusion. There is mildly thickened medial patellar plica (T2 sagittal image 20; T2 axial image 11). There is mild edema in the anterior subcutis adipose space. There is mild bone edema in the proximal tibia near the insertion site of the anterior cruciate ligament. MRI/Lower Ext Joint Only (Routine) IMPRESSION: Medial meniscal tear. 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 Mildly thickened medial patellar plica. No demonstrated medial collateral ligament injury. Electronically Signed: Oral Evans MD at 8:34 EDT Tel , Service support , CC: SUDHIR MARCELINO; Kendall Walter DO Field Interviewer: Signed ORTHOPEDIC VISIT Observed: 02/16/2018 Status: F Source: RITCHIE REPORT 10:59 AM [facility] REPOSITORY [facility] [address] [place] [address] OFFICE VISIT Date of Service: 02/12/18 MR#: [id number] Acct: [id number] Name: YARI LOPEZ Rep #: [id number] : 1955 Provider: Kendall Walter DO Age/Sex: 62/M Location[place] [facility] Status: Signed Intake Intake Visit Reasons: RIGHT KNEE Is patient in pain?: Yes Pain scale (1-10): 10 Allergies Penicillins Allergy (Verified 02/07/18 18:55) Swelling Medications Aspirin [Aspirin, Baby] 81 mg PO DAILY@0800 01/25/14 [History Confirmed 02/07/18] Losartan Potassium [Cozaar] 50 mg PO DAILY 02/07/18 [History Confirmed 02/07/18] Pravastatin [Pravachol] 80 mg PO QHS 02/07/18 [History Confirmed 02/07/18] PFSH Social History Smoking Status: Current every day smoker HPI RIGHT KNEE: Details: YARI LOPEZ is a 62 year old M here today for f/u right knee injury at work on 02/07/18 when the ladder he was on collapsed. He presents in a knee immobilizer and using a cane. He states he is unable to walk more than 30ft without a great amount of pain, he can flex to 90 degrees and then the pain stops him. He has minimal swelling. Denies numbness, tingling or other associated symptoms. ROS Musc Reports as per HPI, Reports limited joint movement, Reports joint pain Ortho Exam Right Knee Contralateral Normal: Yes Swelling: Yes Homans Sign: No 1+: Effusion Knee ROM: Yes ROM-Flexion 0-140 (5-130) Examination: Yes Med jt line tenderness, Yes Pain with flexion, Yes Pain with extention, Yes Crepitus, Yes Jorge Luis's Test Quad Atrophy: No Stability: NML: Anterior Drawer, NML: Ventura, NML: Posterior Drawer, NML: Valgus 0, NML: Varus 0, NML: Varus 30, NML: Dial 90, NML: Dial 30, 1+: Valgus 30 Popliteal Adenopathy: No Apprehension with Lateral Translation: No Patellar Tilt Normal: Yes Patella Grind: No KNEE: Patient is alert oriented 3 in no acute distress. Appropriate eye contact affect. He walks an antalgic gait with his knee currently in a knee immobilizer. Patient is tender palpation across the medial joint line has a grade 1 MCL strain through that area the knee allows him to open to neutral mechanical alignment. There is no obvious popliteal masses but he has a grade 1 knee effusion. He has pain with direct compression across the patella and range of motion. Negative posterior drawer stable at 0 and 30 of varus load. Otherwise EHL anterior gastrocsoleus peroneals quads hamstrings appear to be 5 out of 5. X-rays: Evaluated myself the patient-the patient has tricompartmental arthrosis of the knee mild to moderate. No obvious loose bodies or fractures could be appreciated. Left Knee Skin/Wound: Yes CDI Contralateral Normal: Yes Swelling: No Homans Sign: No Quad Atrophy: No Stability: NML: Anterior Drawer, NML: Ventura, NML: Posterior Drawer, NML: Valgus 0, NML: Valgus 30, NML: Varus 0, NML: Varus 30, NML: Dial 90, NML: Dial 30 Apprehension with Lateral Translation: No Patellar Tilt Normal: Yes Patella Grind: No Assessment AND Plan Problems 1. Right knee sprain S83.91XA 2. Sprain of medial collateral ligament of right knee, initial encounter S83.411A 3. Primary osteoarthritis of right knee M17.11 Plan Assessment: Right knee sprain, right knee MCL strain probable right knee medial meniscus tear and radiographic evidence of osteoarthritis. Plan: The patient is a [facility] patient this makes it problematic for me. I think what the patient needs is a knee injection by nylon to do that without the appropriate orders. At this point time I recommend physical therapy and a knee injection at this point. See if this gives him over any acute symptoms. The patient were to fail conservative measures and consideration for MRI. I told the patient he can really be weightbearing as tolerated through the knee but I do not recommend any heavy lifting climbing or excessive standing. 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 Await the follow-up from [facility] as the next course of treatment. I did tell the patient I think that he is been to be in somewhat of the pedicle because he has osteoarthritis of the knee and his fall clearly to be an exacerbation of those injuries or whether or not any other form of operative interventions none of the providing of any significant relief I do not know. For now we will try physical therapy and injections and see how the patient proceeds. Again if he fails conservative consider conservative measures MRI to evaluate for intra-articular pathology. A major issues return Coding Level of Care Code Off vis,est,level 4 Diagnoses Right knee sprain S83.91XA Encounter type: initial encounter Sprain of medial collateral ligament of right knee, initial encounter S83.411A Primary osteoarthritis of right knee M17.11 Osteoarthritis type: primary 02/16/18 1059 <Electronically signed by Kendall Walter DO> Date Kendall Walter DO Cosigner Signature: Date (if applicable) CC: ALT Collected: 02/10/2018 Status: F Source: [place] 2:27 PM [facility] REPOSITORY TYPE CODE TESTS RESULT OUT OF RANGE REFERENCE UNITS LAB ALT 10-54 U/L ALT 24 Performed By: #### ALT, BMP, CK, LIPB #### [facility] [address] [address] BASIC METABOLIC PANL Collected: 02/10/2018 Status: F Source: [place] 2:27 PM [facility] REPOSITORY TYPE CODE TESTS RESULT OUT OF REFERENCE UNITS RANGE LAB GLU 74-99 mg/dL Glucose 75 Result Comment: The [place] Diabetes [employer] (ADA) provides guidance for cutoff values for fasting glucose and random glucose. The ADA defines fasting as no caloric intake for at least 8 hours. Fas ting plasma glucose results between 100 to 125 mg/dL indicate increased risk for diabetes (prediabetes). Fasting plasma glucose results greater than or equal to 126 mg/dL meet the criteria for diagnosis of diabetes. In the absence of unequivocal hyperglycemia, results should be confirmed by repeat testing. In a patient with classic symptoms of hyperglycemia or hyperglycemic crisis, random plasma glucose results greater than or equal to 200 mg/dL meet the criteria for diagnosis of diabetes. Reference: Standards of Medical Care in Diabetes 2016, [place] [employer]. Diabetes Care. 2016.39(Suppl 1). LAB BUN 9-24 mg/dL BUN 11 LAB CRET 0.73-1.22 mg/dL Creatinine 0.91 LAB NA 136-144 mmol/L Sodium 141 LAB K 3.7-5.1 mmol/L Potassium 4.5 LAB CL 97-105 mmol/L Chloride 102 LAB CO2 22-30 mmol/L CO2 Low 21 LAB AGAP 9-18 mmol/L Anion Gap 18 LAB CA 8.5-10.2 mg/dL Calcium, Total 9.7 LAB GFRAA eGFR- Amer. >60 LAB GFRNAA . eGFR-All Other Races >60 Result Comment: eGFR (Estimated GFR) Units of measure: mL/min/1.73 meters squared eGFR is derived from the reexpressed MDRD Study equation using the following parameters: serum creatinine, age, gender and race. The creatinine assay has been calibrated to be traceable to IDMS. An eGFR <60 mL/min/1.73m2 for >3 months is consistent with chronic kidney disease. Refer to KDOQI guidelines for clinical interpretation. In patients with unstable renal function, e.g. those with acute kidney injury, the eGFR may not accurately reflect actual GFR. Performed By: #### ALT, BMP, CK, LIPB #### [facility] [address] [place], [place] [address] CK Collected: 02/10/2018 Status: F Source: [facility] 2:27 PM [facility] [place] REPOSITORY TYPE CODE TESTS RESULT OUT OF RANGE REFERENCE UNITS LAB CK 51-298 U/L CK 205 Result Comment: Please note the updated, gender-specific reference range for this test (effective 11/01/2016). Performed By: #### ALT, BMP, CK, LIPB #### [facility] [address] [place], [place] [address] LIPID PANEL, BASIC Collected: 02/10/2018 Status: F Source: [place] 2:27 PM [facility] [place] REPOSITORY TYPE CODE TESTS RESULT OUT OF REFERENCE UNITS RANGE LAB CHOL <200 mg/dL Cholesterol 159 Result Comment: <200 mg/dL, Desirable 200-239 mg/dL, Borderline high >239 mg/dL, High LAB TRIGLY <150 mg/dL Triglyceride High 202 Result Comment: <150 mg/dL, Normal 150-199 mg/dL, Borderline high 200-499 mg/dL, High >499 mg/dL, Very high LAB HDL >39 mg/dL HDL-Cholesterol Low 34 Result Comment: 40-59 mg/dL, Acceptable >59 mg/dL, High: Negative risk factor for coronary heart disease <40 mg/dL, Low: Positive risk factor for coronary heart disease LAB LDL <100 mg/dL LDL-Cholesterol 85 Result Comment: <100 mg/dL, Optimal 100-129 mg/dL, Near optimal/above optimal 130-159 mg/dL, Borderline high 160-189 mg/dL, High >189 mg/dL, Very high Secondary prevention optimal LDL Cholesterol levels are recommended to be < 70 mg/dL LAB NONHDL <130 mg/dL Non HDL Cholesterol 125 Result Comment: <130 mg/dL, Optimal 130-159 mg/dL, Near optimal/above optimal 160-189 mg/dL, Borderline high 190-219 mg/dL, High >219 mg/dL, Very high Secondary prevention optimal non HDL Cholesterol levels are recommended to be < 100 mg/dL LAB FT hrs Fasting Time 1 LAB VLDL <30 mg/dL High VLDL Cholesterol 40 LAB TCHDL <5.10 TC:HDL Ratio 4.68 LAB LDLHDL <2.54 LDL:HDL Ratio 2.50 Result Comment: Reference: 1. National Cholesterol Education Program ATP III Guideline At-A-Glance Quick Desk Reference: National Heart, Lung, and Blood [place]. National Institutes of Health. 2001: NIH Publication No. 01-3305. 2. An International Atherosclerosis Society position paper: global recommendations for the management of dyslipidemia: executive summary, Atherosclerosis. 2014: 232(2):410-413. Performed By: #### ALT, BMP, CK, LIPB #### [facility] [address] [place], [place] [address] PROGRESS Observed: 02/10/2018 Status: COMPLETED Source: [place] 2:01 PM [facility] REPOSITORY HNO ID: [id number] Author: Albino Pfeiffer Service: (none) Author Type: Physician Type: Progress Notes Filed: 02/11/2018 8:26 AM Note Text: PERTINENT CARDIAC HISTORY ASHD - moderate by cath 2006 HL HTN Tobacco use ADHERENCE TO GUIDELINES YANNICK-I or ARB for HF with prior LVEF<40 (NQF 0081) - N/A ASA or Plavix for ASHD (NQF 0067) - met Beta gideon for ASHD with prior LA or prior LVEF<40 (NQF 0070) - N/A Beta gideon for HF with prior LVEF<40 (NQF 0083) - N/A YANNICK-I or ARB for ASHD with DM or prior LVEF<40 (NQF 0066) - met Statin therapy for ASHD or FHL or DM - met BMI documented and plan if >25 (NQF 0421) - lifestyle recommendation form Tobacco use screening and referral (NQF 0028) - lifestyle recommendation form Recommendation for whole food, plant based diet - lifestyle recommendation form CLINICAL IMPRESSION/PLAN: Yari Lopez has stable ischemic heart disease, but is limited by his knee pain. If he requires surgery, I recommend preoperative pharmacologic stress test. He has a sinus tachycardia which may be related to deconditioning and pain. We will consider beta gideon therapy in the future. He will undergo laboratory studies including basic profile, lipid profile. I will see him in 8 months or as needed. If there is increased chest pain or shortness of breath, he has been advised to contact me. Written and verbal health teaching given to patient, patient verbalizes understanding and agrees with treatment plan. This note was generated using [employer] voice recognition system, and there may be some incorrect words, spellings, and punctuation that were not noted in checking the note before saving. DIAGNOSIS FOR VISIT: ASHD Hypertension HISTORY OF PRESENT ILLNESS Yari Lopez is a 62-year-old gentleman with previous history of moderate coronary disease and hypertension. He is seen at his request. He previously was followed by Dr. Corona. He reports stable exercise tolerance. He's had no chest discomfort and has used no nitroglycerin. He denies orthopnea, edema, syncope, palpitations, TIAs, amaurosis and claudication. He has been extremely limited because of chronic right knee pain. He may require surgery in the future. ALLERGIES: ALLERGIES Allergen Reactions - Penicillins Swelling CURRENT OUTPATIENT MEDICATIONS: pravastatin (PRAVACHOL) 80 mg tablet TAKE 1 TABLET DAILY losartan (COZAAR) 50 mg tablet TAKE 1 TABLET DAILY nitroglycerin sublingual (NITROSTAT) 0.4 mg SL tablet Dissolve 1 tablet under the tongue as needed. FOR CHEST PAIN. IF NO RELIEF CALL 911 Tadalafil (CIALIS) 10 mg tablet Take 1 tablet by mouth as needed. naproxen sodium (ALEVE) 220 mg tablet TAKES 2 PILLS 3-4 TIMES PER WEEK NEEDED. acetaminophen (TYLENOL) 325 mg tablet Take 2 tablets by mouth every 4 hours as needed. FOR PAIN. aspirin 325 mg tablet Take 1 tablet by mouth once daily. PAST MEDICAL HISTORY Diagnosis Date - Hernia 1971 - Hypercholesteremia - Hypertension PAST SURGICAL HISTORY Procedure Laterality Date - CHEST TUBE - INSERT 1984 HAD PNEUMONIA FAMILY HISTORY Problem Relation Age of Onset - HEART ATTACK [Other] [OTHER] Father - Ischemic Heart Disease Mother - Ischemic Heart Disease Father - Breast Cancer Sister - Coronary Artery Disease Sister Social History Marital status: Spouse name: Years of education: Number of children: Social History Main Topics Smoking status: Former Smoker Packs/day: 1.50 Years: 0.00 Types: Cigarettes Start date: 01/16/1965 Quit date: 01/15/2017 Smokeless status: Current User Types: Snuff Alcohol use: Yes 3.0 - 6.0 oz/week 2 - 4 Cans of Beer (12oz) per week Drug use: Yes Comment: VERY RARE USE Sexual activity: Yes Partners with: Female Other Topics Concern Service No Blood Transfusions No REVIEW OF SYSTEMS: General: No chills, fever, weight loss, night sweats. Respiratory: No productive cough. Cardiac: As noted above. GI: No melena. : No dysuria. Musculoskeletal: No myalgias. PHYSICAL EXAMINATION: S/he is alert and in no distress. VITAL SIGNS: BP 130/84 Pulse 96 Wt 228 lb 8 oz (103.6kg) SHEENT: Skin is warm and dry. No xanthelasmas appreciated. Pharynx is benign. There is no oral cyanosis. Neck: supple. No adenopathy or thyroid enlargement. Chest: Clear to percussion and auscultation. Trachea is midline. Air entry is equal. There is no chest wall tenderness. Cardiac: Regular rhythm. S1 and S2 are normal. PMI is nondisplaced. There is a soft systolic ejection murmur. No click is heard. Carotids are brisk without bruits. JVP is less than 10 cm. Abdomen: Soft and nontender. There are no pulsatile masses or bruits. No liver enlargement. Bowel sounds are active. Extremities: No edema. Pulses are intact and symmetrical. He is wearing a knee brace. He has a great toe ambulating. No clubbing or cyanosis. No femoral bruits. Neurologic: Grossly normal motor and sensory. S/he is alert and oriented x4. EKG shows sinus tachycardia. There is no definite inferior Q wave. There is no significant change from 12/14/13. Prior echocardiogram shows normal global LV function. There is no significant wall motion abnormality. These images were reviewed. There is no evidence of ischemia. Prior lab was reviewed. Last LDL was 118. No lab has been done in the last several years. Electronically Signed: Albino Pfeiffer MD February 10, 2018 2:01 PM CC:DO SATISH Page Observed: 02/10/2018 Status: COMPLETED Source: [place] 1:30 PM [facility] REPOSITORY Office Visit ([facility]CARDW[facility]) YARI LOPEZ ([id number]) 1955 M Date Time Provider Department 02/10/18 1:30 PM ALBINO PFEIFFER AGCARDWST During your visit today, we recorded the following information about you: Pulse Blood pressure Weight 96/minute 130/84 103.6 kg Albino Pfeiffer MD 02/11/2018 8:26 AM Signed PERTINENT CARDIAC HISTORY ASHD - moderate by cath 2006 HL HTN Tobacco use ADHERENCE TO GUIDELINES YANNICK-I or ARB for HF with prior LVEFANDlt;40 (NQF 0081) - N/A ASA or Plavix for ASHD (NQF 0067) - met Beta gideon for ASHD with prior LA or prior LVEFANDlt;40 (NQF 0070) - N/A Beta gideon for HF with prior LVEFANDlt;40 (NQF 0083) - N/A YANNICK-I or ARB for ASHD with DM or prior LVEFANDlt;40 (NQ 0066) - met Statin therapy for ASHD or FHL or DM - met BMI documented and plan if ANDgt;25 (NQ 0421) - lifestyle recommendation form Tobacco use screening and referral ([facility] 0028) - lifestyle recommendation form Recommendation for whole food, plant based diet - lifestyle recommendation form CLINICAL IMPRESSION/PLAN: Yari Lopez has stable ischemic heart disease, but is limited by his knee pain. If he requires surgery, I recommend preoperative pharmacologic stress test. He has a sinus tachycardia which may be related to deconditioning and pain. We will consider beta gideon therapy in the future. He will undergo laboratory studies including basic profile, lipid profile. I will see him in 8 months or as needed. If there is increased chest pain or shortness of breath, he has been advised to contact me. Written and verbal health teaching given to patient, patient verbalizes understanding and agrees with treatment plan. This note was generated using [employer] voice recognition system, and there may be some incorrect words, spellings, and punctuation that were not noted in checking the note before saving. DIAGNOSIS FOR VISIT: ASHD Hypertension HISTORY OF PRESENT ILLNESS Yari Lopez is a 62-year-old gentleman with previous history of moderate coronary disease and hypertension. He is seen at his request. He previously was followed by Dr. Corona. He reports stable exercise tolerance. He's had no chest discomfort and has used no nitroglycerin. He denies orthopnea, edema, syncope, palpitations, TIAs, amaurosis and claudication. He has been extremely limited because of chronic right knee pain. He may require surgery in the future. ALLERGIES: ALLERGIES Allergen Reactions - Penicillins Swelling CURRENT OUTPATIENT MEDICATIONS: pravastatin (PRAVACHOL) 80 mg tablet TAKE 1 TABLET DAILY losartan (COZAAR) 50 mg tablet TAKE 1 TABLET DAILY nitroglycerin sublingual (NITROSTAT) 0.4 mg SL tablet Dissolve 1 tablet under the tongue as needed. FOR CHEST PAIN. IF NO RELIEF CALL 911 Tadalafil (CIALIS) 10 mg tablet Take 1 tablet by mouth as needed. naproxen sodium (ALEVE) 220 mg tablet TAKES 2 PILLS 3-4 TIMES PER WEEK NEEDED. acetaminophen (TYLENOL) 325 mg tablet Take 2 tablets by mouth every 4 hours as needed. FOR PAIN. aspirin 325 mg tablet Take 1 tablet by mouth once daily. PAST MEDICAL HISTORY Diagnosis Date - Hernia 1971 - Hypercholesteremia - Hypertension PAST SURGICAL HISTORY Procedure Laterality Date - CHEST TUBE - INSERT 1984 HAD PNEUMONIA FAMILY HISTORY Problem Relation Age of Onset - HEART ATTACK [Other] [OTHER] Father - Ischemic Heart Disease Mother - Ischemic Heart Disease Father - Breast Cancer Sister - Coronary Artery Disease Sister Social History Marital status: Spouse name: Years of education: Number of children: Social History Main Topics Smoking status: Former Smoker Packs/day: 1.50 Years: 0.00 Types: Cigarettes Start date: 01/16/1965 Quit date: 01/15/2017 Smokeless status: Current User Types: Snuff Alcohol use: Yes 3.0 - 6.0 oz/week 2 - 4 Cans of Beer (12oz) per week Drug use: Yes Comment: VERY RARE USE Sexual activity: Yes Partners with: Female Other Topics Concern Service No Blood Transfusions No REVIEW OF SYSTEMS: General: No chills, fever, weight loss, night sweats. Respiratory: No productive cough. Cardiac: As noted above. GI: No melena. : No dysuria. Musculoskeletal: No myalgias. PHYSICAL EXAMINATION: S/he is alert and in no distress. VITAL SIGNS: BP 130/84 Pulse 96 Wt 228 lb 8 oz (103.6kg) SHEENT: Skin is warm and dry. No xanthelasmas appreciated. Pharynx is benign. There is no oral cyanosis. Neck: supple. No adenopathy or thyroid enlargement. Chest: Clear to percussion and auscultation. Trachea is midline. Air entry is equal. There is no chest wall tenderness. Cardiac: Regular rhythm. S1 and S2 are normal. PMI is nondisplaced. There is a soft systolic ejection murmur. No click is heard. Carotids are brisk without bruits. JVP is less than 10 cm. Abdomen: Soft and nontender. There are no pulsatile masses or bruits. No liver enlargement. Bowel sounds are active. Extremities: No edema. Pulses are intact and symmetrical. He is wearing a knee brace. He has a great toe ambulating. No clubbing or cyanosis. No femoral bruits. Neurologic: Grossly normal motor and sensory. S/he is alert and oriented x4. EKG shows sinus tachycardia. There is no definite inferior Q wave. There is no significant change from 12/14/13. Prior echocardiogram shows normal global LV function. There is no significant wall motion abnormality. These images were reviewed. There is no evidence of ischemia. Prior lab was reviewed. Last LDL was 118. No lab has been done in the last several years. Electronically Signed: Albino Pfeiffer MD February 10, 2018 2:01 PM CC:Sudhir Marcelino, DO Albino Pfeiffer MD 02/10/2018 2:01 PM Signed LIFESTYLE CHANGE A healthy lifestyle is the most important component of your overall treatment plan. Please give serious thought to the following areas and commit to making custodial changes. EAT A WHOLE FOOD, PLANT BASED DIET The nutrition your body gets is more important than the medicine you take. What matters most is the overall way you eat. We encourage you to minimize the use of animal products (which include dairy and all meats except fatty fish) and use whole, unprocessed plant foods to provide your protein, vitamins and other nutrients. We have a lot of information to share with you on this topic. We also hold Shared Medical Appointments, where you can come visit with Dr. Pfeiffer in the company of other patients and spend over an hour talking about the challenges of changing the way you eat. This is not a ANDquot;dietANDquot;. It is a way of life that you will keep with you. EXERCISE REGULARLY It is not important to spend hours in the gym, lifting weights and perspiring heavily. A total of 2-3 hours per week of aerobic (causing you to be moderately short of breath) exercise is sufficient to improve your health. Talk to us before you begin a new exercise program, if you have heart disease or experience shortness of breath or chest pain. REDUCE STRESS Chronic emotional and physical stress leads to disease. Ways of reducing stress include meditation, visualization, prayer, yoga and other forms of relaxation therapy. Consistency is the linder. Find a technique that works for you and do it every day. CULTIVATE RELATIONSHIPS Loneliness and isolation have a major negative impact on health. Seek out others who can love, care for and nurture you. Avoid hurtful relationships. MAINTAIN IDEAL BODY WEIGHT The best way to do this is to do all the things above. Our bodies naturally find the right weight if we keep moving and feed ourselves the right food. If your BMI is greater than 25, we strongly recommend a referral to a weight management program. Please speak to us or your family physician about available programs. AVOID NICOTINE IN ALL FORMS This includes all tobacco products, whether chewed, smoked, vaped, or rubbed on the skin. Smoking cessation programs, which can make use of tobacco substitutes, medications to suppress cravings and behavior management, are available. Please contact your family physician about programs in your area. Charlie Guo RN, RN 02/11/2018 8:45 AM Signed Copy of OV note mailed to Dr. Marcelino's office. Referring Provider: SUDHIR MARCELINO [[id number]] Allergies As of Date: 02/10/2018 Noted Allergy Reaction PENICILLINS 12/26/2010 7 - Swelling Date Reviewed: 02/10/2018 Reviewed by: Erin Perry) Jefe - Fully Assessed Reason for Visit: Recheck [92] Primary Visit Diagnosis:ASHD (arteriosclerotic heart disease) [I25.10] Other Visit Diagnosis:Hypertension, essential [I10] Order(s):ECG B/O W INTERP (MED OFFICE) [ECG06] Order #: [id number] Prescriptions as of 02/10/2018 Sig: PRAVASTATIN 80 MG TABLET TAKE 1 TABLET DAILY LOSARTAN 50 MG TABLET TAKE 1 TABLET DAILY NITROGLYCERIN 0.4 MG SUBLINGU* Dissolve 1 tablet under the t* TADALAFIL 10 MG TABLET Take 1 tablet by mouth as nee* NAPROXEN SODIUM 220 MG TABLET TAKES 2 PILLS 3-4 TIMES PER W* ACETAMINOPHEN 325 MG TABLET Take 2 tablets by mouth every* ASPIRIN 325 MG TABLET Take 1 tablet by mouth once d* Problem List As Of Date 02/10/2018 Noted Resolved Coronary arteriosclerosis in [place] artery [I25*INVALID FOR* Chest discomfort [R07.89] INVALID FOR* Heart murmur, systolic [R01.1] INVALID FOR* SOB (shortness of breath) on exertion [R06.02] INVALID FOR* Fatigue [R53.83] INVALID FOR* Dyslipidemia [E78.5] INVALID FOR* Tobacco abuse [Z72.0] INVALID FOR* Essential hypertension [I10] INVALID FOR* Other instructions from your clinician: LIFESTYLE CHANGE A healthy lifestyle is the most important component of your overall treatment plan. Please give serious thought to the following areas and commit to making ocean transportation intermediary changes. EAT A WHOLE FOOD, PLANT BASED DIET The nutrition your body gets is more important than the medicine you take. What matters most is the overall way you eat. We encourage you to minimize the use of animal products (which include dairy and all meats except fatty fish) and use whole, unprocessed plant foods to provide your protein, vitamins and other nutrients. We have a lot of information to share with you on this topic. We also hold Shared Medical Appointments, where you can come visit with Dr. Pfeiffer in the company of other patients and spend over an hour talking about the challenges of changing the way you eat. This is not a diet. It is a way of life that you will keep with you. EXERCISE REGULARLY It is not important to spend hours in the gym, lifting weights and perspiring heavily. A total of 2-3 hours per week of aerobic (causing you to be moderately short of breath) exercise is sufficient to improve your health. Talk to us before you begin a new exercise program, if you have heart disease or experience shortness of breath or chest pain. REDUCE STRESS Chronic emotional and physical stress leads to disease. Ways of reducing stress include meditation, visualization, prayer, yoga and other forms of relaxation therapy. Consistency is the linder. Find a technique that works for you and do it every day. CULTIVATE RELATIONSHIPS Loneliness and isolation have a major negative impact on health. Seek out others who can love, care for and nurture you. Avoid hurtful relationships. MAINTAIN IDEAL BODY WEIGHT The best way to do this is to do all the things above. Our bodies naturally find the right weight if we keep moving and feed ourselves the right food. If your BMI is greater than 25, we strongly recommend a referral to a weight management program. Please speak to us or your family physician about available programs. AVOID NICOTINE IN ALL FORMS This includes all tobacco products, whether chewed, smoked, vaped, or rubbed on the skin. Smoking cessation programs, which can make use of tobacco substitutes, medications to suppress cravings and behavior management, are available. Please contact your family physician about programs in your area. Visit Notes: >> Charlie Wu) ELIEZER Guo chante Feb 11, 2018 8:44 AM Status: Signed Copy of OV note mailed to Dr. Marcelino's office. Encounter Status:Closed by ALBINO PFEIFFER MD on 02/11/18 EMERGENCY DEPARTMENT Observed: 02/08/2018 Status: F Source: JOFFRE SUMMARY 1:09 AM [facility] REPOSITORY [facility] Medical Records Department [address] [place] [address] Emergency Department Summary 02/07/18 2107 MR#: [id number] Acct: [id number] Name: YARI LOPEZ Rep #: [id number] : 1955 62 From: Kendall Hancock MD PCP: SUDHIR MARCELINO Status: DEP ER - ER Visit Summary Date of Service: 02/07/18 Chief Complaint: Fall from ladder History of Present Illness: The patient is a 62 M fall from ladder. Patient was on about a 3 foot step ladder today when he suffered a fall when he collapsed. Patient states that he landed on his feet and suffered a twisting injury as he fell to the left. Patient states that he was initially able to ambulate when he had the initial shot of adrenaline from the fall, but now is unable to bear weight on his right knee. He does report that he has prior injury to that right knee, but states that it was never this bad. Patient denies any other injuries. Physical Examination: Primary survey: Airway is patent, breath sounds equal bilateral, central peripheral pulses 2+ and symmetric, GCS 15 out of 15. Vitals within normal limits. Secondary survey: General: Well-nourished well-developed no acute distress Head: Normocephalic atraumatic Eyes: PERRLA, EOMI ENT: TMs clear no hemotympanum no drainage Neck: Nontender full range of motion, no step-offs noted Heart: Regular rate and rhythm no murmurs Lungs: Respirations nondistressed, lung sounds clear to auscultation bilaterally, chest nontender, normal chest excursion bilaterally Abdomen: Soft nontender nondistended normal bowel sounds no palpable abdominal masses Back: Nontender no step-offs noted Extremities: Right lower extremity exam shows effusion of the right knee with pain on range of motion with no crepitus or deformity. There is some medial joint line tenderness to palpation noted. No laxity with Ventura, posterior drawer, varus, or valgus stress. Skin: Normal color no trauma Neuro: Alert and oriented 4, GCS 15 out of 15, no lateralizing neurological deficits. Test Results: Knee x-ray is negative for bony pathology per radiology Emergency Department Course and Treatment: Patient presented secondary to a knee injury. X-ray was found to be negative. Patient is unable to bear weight and has a joint effusion on concern for sprain versus ligamentous injury although there is no laxity. Patient was placed in a knee immobilizer was given crutches he will follow-up with orthopedics as well as corporate care. Disposition: Discharge Impression: 1. Right knee sprain This note was generated with [employer] dictation software. It may contain incorrect words, spelling, and punctuation that were not noted in review of the chart prior to signing ED Disposition - Plan for ED Patient: Disposition: Home or Assisted Living Chief Complaint: Fall Diagnosis: Knee sprain Instructions: ED Sprain Knee Referrals: Pia Loyola DO [STAFF PHYSICIAN] - As soon as possible Corporate[facility]Care [GROUP OF PHYSICIANS] - As soon as possible What to do if you have Problems For any increased pain, shortness of breath, bleeding, nausea or vomiting, chest pain, or any unexpected problems, contact your Primary Care Provider. Call [facility] ([phone]) or report to the closest Emergency Room. Call 911 if necessary. 02/08/18 0109 <Electronically signed by Kendall Hancock MD> Date Kendall Hancock MD Cosigner Signature (If Indicated): Date CC: SUDHIR MARCELINO KNEE 4 OR MORE Observed: 02/07/2018 Status: F Source: [place] VIEWS 7:22 PM [facility] REPOSITORY [facility] Imaging Services [address] [place] [address] [place] [address] Knee 4 or More Views MR#: [id number] Acct: [id number] Name: YARI LOPEZ Rep #: [id number] : 1955 M 62 From: Kate Sargent MD PCP: SUDHIR MARCELINO Status: REG ER Study: Knee 4 or More Views Date of Exam: 02/07/18 Exam# [id number] Ordering Dr: Kendall Hancock MD XR Knee Complete 4 Views or More INDICATION: fall. right knee pain COMPARISON: September 2014. TECHNIQUE: 4 views of the right knee FINDINGS: Degenerative changes are noted at the right knee with subchondral cyst formation at the medial femoral condyle. Appearance is stable compared to 2013. The joint spaces are decreased at the medial compartment and patellofemoral compartment. Moderate marginal osteophytes are noted. A small suprapatellar knee joint effusion is suggested. Vascular calcifications are noted. RAD/Knee 4 or More Views IMPRESSION: Degenerative changes. No convincing plain film evidence of acute fracture. at 2019 Reported and signed by: Kate Sargent MD Electronically Signed: Kate Sargent MD at 19:17 EDT Tel , Service support , CC: SUDHIR MARCELINO; Kendall Hancock Field Interviewer: Signed OBSOLETE Observed: 12/17/2017 Status: COMPLETED Source: CORNELIA 12:00 AM [facility] REPOSITORY Refill (CHASE) YARI LOPEZ ([id number]) 1955 M Date Time Provider Department 12/17/17 ARIC CORONA During your visit today, we recorded the following information about you: Charlie Guo, RN, RN 12/18/2017 10:54 AM Signed Received refill request, please confirm if patient is going to follow with Dr. Pfeiffer and if so offer an appt, thank you. Leyla Julio PSR 12/18/2017 1:42 PM Signed Attempted to contact patient, left a message for him to return our call. Charlie Guo, RN, RN 12/18/2017 2:01 PM Signed Appointment made for January, patient confirms he will be following with Dr. Pfeiffer. Albino Pfeiffer MD 12/18/2017 2:09 PM Signed Please have labs done prior to appointment. Albino Pfeiffer MD The following approved medication requests have been transmitted electronically. Signed Prescriptions Disp Refills pravastatin (PRAVACHOL) 80 mg tablet 90 tablet 3 Sig: TAKE 1 TABLET DAILY FELICIA: No Authorizing Provider: ALBINO PFEIFFER losartan (COZAAR) 50 mg tablet 90 tablet 3 Sig: TAKE 1 TABLET DAILY FELICIA: No Authorizing Provider: ALBINO PFEIFFER MD Adam Gilmor RN, RN 12/18/2017 3:06 PM Signed Left detailed msg with instructions and asked that he call back with any questions. Allergies As of Date: 12/17/2017 Noted Allergy Reaction PENICILLINS 12/26/2010 7 - Swelling Date Reviewed: 01/17/2017 Reviewed by: Selena Marion Ma - Fully Assessed Reason for Visit: Refill Request [94] Primary Visit Diagnosis:ASHD (arteriosclerotic heart disease) [I25.10] Order(s):pravastatin (PRAVACHOL) 80 mg tabletTAKE 1 TABLET DAILYDisp: 90 tabletRfl: 3 losartan (COZAAR) 50 mg tabletTAKE 1 TABLET DAILYDisp: 90 tabletRfl: 3 BASIC METABOLIC PNL [SQBMP] Order #: [id number] FUTURE LIPID PANEL BASIC [SQLIPB] Order #: [id number] FUTURE ALT/SGPT [SQALT] Order #: [id number] FUTURE CK CREATINE KINASE [SQCK] Order #: [id number] FUTURE Prescriptions as of 12/17/2017 Sig: PRAVASTATIN 80 MG TABLET TAKE 1 TABLET DAILY LOSARTAN 50 MG TABLET TAKE 1 TABLET DAILY NITROGLYCERIN 0.4 MG SUBLINGU* Dissolve 1 tablet under the t* TADALAFIL 10 MG TABLET Take 1 tablet by mouth as nee* NAPROXEN SODIUM 220 MG TABLET TAKES 2 PILLS 3-4 TIMES PER W* ACETAMINOPHEN 325 MG TABLET Take 2 tablets by mouth every* ASPIRIN 325 MG TABLET Take 1 tablet by mouth once d* Problem List As Of Date 12/17/2017 Noted Resolved Coronary arteriosclerosis in [place] artery [I25*INVALID FOR* Chest discomfort [R07.89] INVALID FOR* Heart murmur, systolic [R01.1] INVALID FOR* SOB (shortness of breath) on exertion [R06.02] INVALID FOR* Fatigue [R53.83] INVALID FOR* Dyslipidemia [E78.5] INVALID FOR* Tobacco abuse [Z72.0] INVALID FOR* Essential hypertension [I10] INVALID FOR* Prescriptions ordered this encounter Disp Refills Start End PRAVASTATIN 80 MG TABLET 90 t* 3 12/18/2017 Sig: TAKE 1 TABLET DAILY LOSARTAN 50 MG TABLET 90 t* 3 12/18/2017 Sig: TAKE 1 TABLET DAILY Medications Discontinued During This Encounter pravastatin (PRAVACHOL) 80 mg tablet 90 t* 3 01/14/2017 12/18/2017 Route: ORAL Sig: Take 1 tablet by mouth once daily. Disc: Reason for discontinue is not on file. losartan (COZAAR) 50 mg tablet 90 t* 3 01/14/2017 12/18/2017 Route: ORAL Sig: Take 1 tablet by mouth once daily. Disc: Reason for discontinue is not on file. Encounter Status:Closed by CHARLIE GUO on 12/18/17 ALLERGIES ALLERGIES DATE TYPE / CODE NAME / CODE REACTION SEVERITY SOURCE 11/13/2018 Drug Penicillins/[id number] Swelling Unknown [place] Allergy/416 0476(RXNORM) [facility] [address]12([facility] [place]) Repository 12/26/2010 Drug PENICILLINS SWELLING [facility] Class/49284 Other [place] 1003(SNOMED Repository CT) NG/[id number] PENICILLINS [facility] 6([facility]) Repository ENCOUNTERS ENCOUNTERS ADMIT/DISCHARGE ACCOUNT NUMBER ADMITTING ENCOUNTER LOCATION SOURCE CLASS 11/13/2018/11/13/20 [id number] Ambulatory BMSBuilding: [place] 18 BMS[facility] Repository 11/03/2018 [id number] Ambulatory BMSBuilding: [place] BMS.[facility] Repository 10/30/2018 [id number] Ambulatory [facility] ding:MTLAB Repository 10/27/2018/10/27/20 [id number] Emergency [address] ding:ED Repository 10/27/2018 [id number] Ambulatory [facility] ding:MTRAD Repository 10/16/2018/10/16/20 [id number] Ambulatory [address] Main [place] Repository 10/16/2018 [id number] Ambulatory [facility] MEDICAL Repository CENTERBuildi ng:CAGWS 09/16/2018 [id number] Ambulatory [facility] ding:MTRAD Repository 03/21/2018/03/21/20 [id number] Ambulatory BMSBuilding: [place] 18 [facility] Repository 03/19/2018 [id number] Ambulatory [facility] ding:MRI Repository 02/13/2018 [id number] Ambulatory [facility] MEDICAL Repository CENTERBuildi ng:CAGWS 02/12/2018/02/13/20 [id number] Ambulatory BMSBuilding: [place] 18 BMS[facility] Repository 02/10/2018/02/11/20 [id number] Ambulatory [address] Main [place] Repository 02/10/2018/02/11/20 [id number] Ambulatory [address] Other [place] Repository 02/10/2018/02/11/20 [id number] Ambulatory [address] MEDICAL Repository CENTERBuildi ng:CAGWS 02/07/2018/02/08/20 [id number] Emergency [address] ding:ED Repository PAYERS PAYERS ENCOUNTER GUARANTOR PAYER SUBSCRIBER SOURCE 11/13/2018 YARI Joyce Primary YARI K [place] [id number] Insurance:ANTHEMPolicy HIBBITTSDOB: [facility] [place]: [id number] [id number] Repository [address]Vzw: 330) Date:6049-07-62CY [phone] ([facility] [place] [address]WG: 11/13/2018 Secondary NOT GIVENUNK [place] Insurance:SELF PAY Community INSURANCEPolicy Number: Hospital Effective Repository Date:2018-11-13 11/03/2018 YARI Joyce Primary YARI Joyce [place] [id number] Insurance:ANTHEMPolicy HIBBITTSDOB: Community [place]Z Number: [id number] [id number] Repository [address]Nbj: ([phone]) Date:3172-37-66GM [phone] () TAHIR RASMUSSEN [address]NP: 11/03/2018 Secondary NOT GIVENUNK [place] Insurance:SELF PAY Community INSURANCEPolicy Number: Hospital Effective Repository Date:2018-11-03 10/30/2018 YARI Joyce Primary YARI Joyce [place] [id number] Insurance:ANTHEMPolicy HIBBITTSDOB: Community SANZ Number: [id number], [place] [id number] Repository [address]Aav: ([phone]) Date:7095-00-82CQ [phone] () TAHIR RASMUSSEN [address]DV: 10/30/2018 Secondary NOT GIVENUNK [place] Insurance:SELF PAY Community INSURANCEPolicy Number: Hospital Effective Repository Date:2018-10-30 10/27/2018 YARI Joyce Primary YARI Joyce [place] [id number] Insurance:ANTHEMPolicy HIBBITTSDOB: Community [place] Number: [id number], [place] [id number] Repository [address]Oqn: ([phone]) Date:6129-91-48US [phone] () TAHIR RASMUSSEN [address]VR: 10/27/2018 Secondary NOT GIVENUNK [place] Insurance:SELF PAY Community INSURANCEPolicy Number: Hospital Effective Repository Date:2018-10-27 10/27/2018 YARI Joyce Primary YARI Joyce [place] [id number] Insurance:ANTHEMPolicy HIBBITTSDOB: Community SANZ Number: [id number], [place] [id number] Repository [address]Zrc: (330) Date:6812-05-72QF [phone] () TAHIR RASMUSSEN [address]OW: 10/27/2018 Secondary NOT GIVENUNK [place] Insurance:SELF PAY Community INSURANCEPolicy Number: Hospital Effective Repository Date:2018-10-27 10/16/2018 YARI Joyce Primary Insurance:MICAELA YARI [facility] HIBBITTSDOB: CARD PPOPolicy Number: HIBBITTSDOB: Health System [id number] Date[facility] [place], [place] [address]Xab: () 09/16/2018 YARI Joyce Primary YARI Joyce [place] [id number] Insurance:ANTHEMPolicy HIBBITTSDOB: [facility] Number: [id number], [place] [id number] Repository [address]Csz: [phone]) Date:5290-74-70RX [phone] () [place], [place] [address]IZ: 09/16/2018 Secondary NOT GIVENUNK [place] Insurance:SELF PAY Community INSURANCEPolicy Number: Hospital Effective Repository Date:2018-09-16 03/21/2018 YARI Joyce Primary YARI Joyce [place] [id number] Insurance:CAREWORKS HIBBITTSDOB: [facility] CONSULTANTSPolicy [id number], [place] Number: Repository [address]Say: [phone] [id number] [phone] () Date:4837-01-89EC [address]DUKATHLEENBrady, [place] [address]CQ: 03/21/2018 Secondary NOT GIVENUNK [place] Insurance:SELF PAY Community INSURANCEPolicy Number: Hospital Effective Repository Date:2018-03-12 03/19/2018 YARI Joyce Primary YARI Joyce [place] [id number] Insurance:CAREWORKS HIBBITTSDOB: [facility] CONSULTANTSPolicy [id number], [place] Number: Repository [address]Ntd: [phone] [id number] [phone] () Date:8818-49-80RW [address]DUBLBrady, [place] [address]HU: 03/19/2018 Secondary AYRI K [place] Insurance:[facility] HIBBITTSDOB: Community CAREWORKSPolicy Number: [id number] Hospital [id number] Repository Date:8141-21-38ZV [address]JIRXRLBE, [place] [address]ZJ: 03/19/2018 Tertiary Insurance:SELF NOT GIVENUNK [place] PAY INSURANCEPolicy Community Number: Effective Hospital Date:2018-03-17 Repository 02/13/2018 YARI K Primary Insurance:BLUE YARI K [facility] HIBBITTSDOB: CARD PPOPolicy Number: HIBBITTSDOB: Health System [id number] Repository [place] Date: [place], [place] [address]Gmk: () 02/12/2018 YARI K Primary YARI K [place] [id number] Insurance:CAREWORKS HIBBITTSDOB: [facility] [id number], [place] Number: Repository [address]Hfu: [phone] [id number] [phone] () Date:1503-15-06PA [address]DUFEIhatfield, [place] [address]NH: 02/12/2018 Secondary NOT GIVENUNK [place] Insurance:SELF PAY Community INSURANCEPolicy Number: Hospital Effective Repository Date:2018-02-10 02/10/2018 YARI K Primary Insurance:BLUE YARI K [facility] HIBBITTSDOB: CARD PPOPolicy Number: HIBBITTSDOB: Health System [id number] Repository [place] Date: [place], [place] [address]Hvc: () 02/07/2018 YARI K Primary YARI K [place] [id number] Insurance:CAREWORKS HIBBITTSDOB: [facility] [id number], [place] Number: Repository [id number]: [phone] [id number] [phone] () Date:4295-05-70JF [address]DUKATHLEENJUAN CARL[place], [place] [address]ZJ: 02/07/2018 Secondary NOT GIVENUNK [place] Insurance:SELF PAY Community INSURANCEPolicy Number: Hospital Effective Repository Date:2018-02-07
== END ==
PROVIDERS: Family Provider Family Medicine; PCP Family Medicine; Referring Provider Family Medicine; Visit Provider Family Medicine
DX: S83.91XA Sprain of unspecified site of right knee, initial encounter (principal)
CPT/HCPCS: 73562

== ENCOUNTER 2018-10-27 17:09 | Emergency (ER) | payer BC, SELFPAY ==
[2018-10-27 17:10] VITALS: BP 145/87; PULSE 80; RESP 16; TEMP 36.6; O2SAT 99; BMI 32.1
--- NOTE | 2018-10-27 18:35 | ED.DCSUM_ITS ---
History of Present Illness Chief Complaint: Lower Extremity Injury Informant: Patient Onset: Days - 2-3 Context: Gradual Onset - chronic pain x 4 mos since injury, found to be meniscus tear, worse x 2-3 days w/o new injury; now swollen Timing: Continuous Quality: ache Location: right knee Current Severity: Severe Maximum Severity: Severe Worsened by: bending or straightening it out Relieved by: remaining still Associated Symptoms: swelling. no redness or fevers. Narrative: Called PCP today and had an outpt knee XR for this same issue. Here due to intense pain and tylenol/ibuprofen not helping. Sched to see PCP in 2d for cortisone injection in same knee. Past Medical History - Allergies and Home Meds Allergies/Adverse Reactions: Allergies Penicillins Allergy (Verified 02/07/18 18:55) Swelling Primary Care Physician: Gianfranco West MD [Primary Care Provider] - Past Medical History: None Lives: Spouse/ Significant Other Smoking Status: Current every day smoker Review of Systems All systems negative except as indicated General: Denies: Chills, Fever Musculoskeletal: Reports: Swelling - right knee only, Extremity Pain. Denies: Neck pain, Back pain Skin: Denies: Rash, Abscess, Wounds Neurological: Denies: Headache, Weakness, Parasthesia, Numbness Physical Exam Vital Signs/Narrative: Vital Signs Temp Pulse Resp BP Pulse Ox 10/27/18 17:10 97.8 F 80 16 145/87 H 99 Inital Vital Signs reviewed: Yes General: Well nourished, Well developed, - - nad Head: Normocephalic, Atraumatic Extremities: Tenderness - diffuse anterior right knee, - - + knee effusion right knee. very limited ROM, but good short arc ROM from about30 degrees of flexion to almost complete extension. all ligaments stable w/ short end points and no pain on stressing. Skin: Normal color, No rash, - - no erythema or excessive warmth right knee Neurological: Alert, Oriented x3, Cranial nerves II-XII grossly intact, Normal Strength, Normal Sensation Psychological: Normal affect Diagnostic/Tx/Re-eval - Medical Decision Making I reviewed the x-ray report from his outpatient knee x-ray from today, did show a small effusion, triple compartment arthrosis, and osteochondritis dissecans. I think he would probably benefit acutely from withdrawing fluid from the ef fusion, however since he is going to have an injection in 2 days in the same knee, I advised that he wait until then to have it done at the same time with a single needle placed in his joint, as opposed to doing it twice, which would increase his risk for iatrogenic septic arthritis. He agrees and is comfortable with medical pain control for now. ED Disposition - Plan for ED Patient: Disposition: Home or Assisted Living Chief Complaint: Lower Extremity Injury Diagnosis: Right knee meniscal tear, Effusion, right knee Instructions: ED Effusion Knee Prescriptions: Oxycodone HCl/Acetaminophen [Percocet 5/325] 1 tab PO Q6H PRN PRN 3 Days #12 tab PRN Reason: Pain Referrals: Gianfranco West MD [Primary Care Provider] - Keep Anahy appointment
[2018-10-27] MEDS: morphine 10 MG/ML Syringe SC (18:45)
[2018-10-27] MEDS: Ondansetron 8 MG Tablet PO (18:47)
[2018-10-27 19:12] VITALS: BP 151/88; PULSE 77; RESP 18; O2SAT 95
--- OUTSIDE RECORDS SUMMARY | 2018-12-14 03:04 | XMS RPT_ITS ---
:1955 Author Organization OHIP Support Name Relationship Address Phone ELIJAH STEPHAN Unavailable [address] + [place] [address] MONRO MUFFLER Unavailable [address] + [place] [address] HIBBITTS, STEPHAN Unavailable [address] + [place] [address] MONRO MUFFLER Unavailable [address] + [place] [address] HIBBITTS, STEPHAN Unavailable [address] + [place] [address] MONRO MUFFLER Unavailable [address] + [place] [address] HIBBITTS, STEPHAN Unavailable [address] + [place] [address] MONRO MUFFLER Unavailable [address] + [place] [address] HIBBITTS, STEPHAN Unavailable [address] + [place] [address] MONRO MUFFLER Unavailable [address] + [place] [address] HIBBITTS, STEPHAN Unavailable [address] + [place] [address] MONRO MUFFLER Unavailable [address] + [place] [address] HIBBITTS, STEPHAN Unavailable [address] + [place] [address] MONRO MUFFLER Unavailable [address] + [place] [address] HIBBITTS, STEPHAN Unavailable [address] + [place] [address] MONRO MUFFLER Unavailable [address] + [place] [address] HIBBITTS, STEPHAN Unavailable [address] + [place] [address] MONRO MUFFLER Unavailable [address] + [place] [address] HIBBITTS, STEPHAN Unavailable [address] + [place] [address] MONRO MUFFLER Unavailable [address] + [place] [address] Care Team Providers Name Role Phone Gianfranco [...] I25.10 - Moodzohra, Active [place] Atherosclerotic Gianfranco [facility] heart disease of [facility] ute coronary Repository artery without angina pectoris / I25.10(ICD-10) 10/28/2018 Unknown S83.206A - KE, Active [place] Unspecified tear of NIKKI [facility] unspecified Hospital meniscus, current Repository injury, right knee, initial encounter / S83.206A(ICD-10) 09/16/2018 Unknown J20.9 - Acute Rusty Self Active [place] bronchitis, E Community unspecified / Hospital J20.9(ICD-10) Repository 12/03/2018 Unknown S83.411A - Sprain of Kendall Walter Active [place] medial collateral Community ligament of right Hospital knee, initial Repository encounter / S83.411A(ICD-10) 02/10/2018 Active Atherosclerotic MARGARETTE, Active [place] heart disease of [facility] Other ute coronary [place] artery without Repository angina pectoris / I25.10(ICD-10) 02/10/2018 Active Essential (primary) MARGARETTE, Active [place] hypertension / [facility] Other I10(ICD-10) [place] Repository 02/10/2018 Admitting Unknown / MARGARETTE, Active [place] [facility] diagnosis UNK(Unknown) [facility] Repository PROCEDURES PROCEDURES No Procedure Records FoundRESULTS RESULTS CARDIOLOGY VISIT Observed: 11/13/2018 Status: F Source: [place] REPORT 12:35 PM [facility] HOSPITAL REPOSITORY [facility] [address] [place] [address] OFFICE VISIT Date of Service: 11/13/18 MR#: [id number] Acct: [id number] Name: YARI LOPEZ Rep #: [id number] : 1955 Provider: Gianfranco Wells MD Age/Sex: 63/M [place] [facility] Status: Signed HPI HPI Details: YARI OLPEZ, is a 63 M who presents to the office today for outpatient cardiovascular consultation to establish cardiovascular care for history of underlying hyperlipidemia, hypertension, and CAD. He has previously been followed by cardiology in [place], [place] as well as [facility] cardiology in [place], [place]. He states many years ago, during an illness with respect to pneumonia, he underwent a diagnostic cardiac catheterization at [facility] in [place], [place]. To the best of his knowledge she had some element of underlying CAD but not significant and did not require any form of intervention. He denies any ongoing concerning chest discomfort at rest or with exertion. There has been no issues with overt CHF or pulmonary edema. Her has been no near syncope or syncope. He recently was evaluated by his previous tomographic tech, Dr. Albino Pfeiffer formally of [facility] cardiology, for his outpatient appointment. 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 Atherosclerosis of ute coronary artery of ute heart without angina pectoris I25.10 Moderate per cath 2006 Plan At the present time he appears to be symptomatically and stable. He will continue risk factor evaluation care per A copy of a previous stress echocardiogram was obtained from 01/14/2014. At that time the study was reported as negative. This was performed through the [facility] institution. If and when the patient does [...] Code Off vis,new,level 3 Diagnoses Atherosclerosis of ute coronary artery of ute heart without angina pectoris I25.10 [place] vs. transplanted heart: ute heart Hyperlipidemia, unspecified hyperlipidemia type E78.5 Hyperlipidemia type: unspecified Essential hypertension I10 Tobacco abuse Z72.0 Coding Level of Care Code Off vis,new,level 3 Diagnoses Atherosclerosis of ute coronary artery of ute heart without angina pectoris I25.10 [place] vs. transplanted heart: ute heart Hyperlipidemia, unspecified hyperlipidemia type E78.5 Hyperlipidemia type: unspecified Essential hypertension I10 Tobacco abuse Z72.0 11/13/18 1235 <Electronically signed by Gianfranco Wells MD> Date Gianfranco Wells MD Cosigner Signature: Date (if applicable) CC: Gianfranco West MD 12 LEAD EKG PERFORMED Observed: 11/13/2018 Status: F Source: [place] BY [facility] 11:23 AM [facility] HOSPITAL REPOSITORY [facility] [address] [place] [address] 12 Lead EKG performed by [facility] 11/13/182 MR#: [id number] Acct: [id number] Name: YARI LOPEZ Rep #: [id number] : 1955 63 From: Gianfranco Wells MD Attending Dr: Gianfranco Wells MD Status: DEP AMB Ordering Dr: Gianfranco Wells MD Date: 11/13/18 [place] [facility] Sex: M C Admitted: [facility]/12 Lead EKG performed by [facility] ECG Report Interpretation Sinus Rhythm Incomplete right bundle branch block. ABNORMAL Electronically signed on 11/13/2018 at 16:19 by Gianfranco Wellswood Software Version 8610 11/13/18 1620 Date Gianfranco Wells MD CC: SUDHIR MARCELINO Date Dictated: 11/13/181121 Date Transcribed: 11/13/181121 Reefer Truck Driver: PM Signed BASIC METABOLIC Collected: 10/30/2018 Status: F Source: [place] PROFILE (BMP) 11:14 AM [facility] REPOSITORY TYPE CODE TESTS RESULT OUT OF [...] Performed By: #### L500.2500, L500.4100, L501.9910 #### [facility] [address] [place], [place], [address] LIPID PROFILE Collected: 10/30/2018 Status: F Source: [place] 11:14 AM [facility] REPOSITORY TYPE CODE TESTS RESULT OUT OF [...] Performed By: #### L500.2500, L500.4100, L501.9910 #### [facility] [address] [place], [address] PSA,TOTAL - ANNUAL Collected: 10/30/2018 Status: F Source: [place] SCREEN 11:14 AM [facility] REPOSITORY TYPE CODE TESTS RESULT OUT OF RANGE REFERENCE UNITS LAB L501.9910 0.00-4.00 ng/mL Normal PSA,TOT 1.56 SCREEN Result Comment: This test was performed using the TPSA assay method for the Layer chemistry system. Values obtained with different assay methods cannot be used interchangably. When changing PSA assays in the course of monitoring a patient, additional sequential testing should be carried out to confirm baseline values. Performed By: #### L500.2500, L500.4100, L501.9910 #### [facility] [address] [place], [address] VITAMIN D,25 HYDROXY Collected: 10/30/2018 Status: F Source: [place] 11:14 AM [facility] REPOSITORY TYPE CODE TESTS RESULT OUT OF REFERENCE UNITS RANGE LAB L506.1000 29.95-100.01 ng/mL Low Vitamin D 10.8 25-OH Result Comment: Vitamin D 25(OH) Status Range Deficiency <20 ng/mL (50nmol/L) Insuffciency 20 - 30 ng/mL (50 - 75 nmol/L) Sufficiency 30 - 100 ng/mL (75 - 250 nmol/L) Toxicity >100 ng/mL (>250 nmol/L) Performed By: #### L506.1000 #### [facility] [address] [place], [address] EMERGENCY DEPARTMENT Observed: 10/27/2018 Status: F Source: [place] SUMMARY 6:40 PM [facility] REPOSITORY [facility] Medical Records Department [address] [address] Emergency Department Summary 10/27/18 1831 MR#: [id number] Acct: [id number] Name: ELIJAHBARTYARI K Rep #: [id number] : 1955 63 From: Nikki Dempsey MD [...] your Primary Care Provider. Call [facility] ([phone]) or report to the closest Emergency Room. Call 911 if necessary. 10/27/18 1840 <Electronically signed by Nikki Dempsey MD> Date Nikki Dempsey MD Cosigner Signature (If Indicated): Date CC: Gianfranco West MD KNEE 3 VIEWS Observed: 10/27/2018 Status: F Source: [place] 4:33 PM [facility] REPOSITORY [facility] Imaging Services [address] [place] [address] Knee 3 Views MR#: [id number] Acct: [id number] Name: YARI LOPEZ Rep #: [id number] : 1955 M 63 From: Theo Ya MD PCP: Gianfranco West MD Status: REG CLI Study: Knee 3 Views Date of Exam: 10/27/18 Exam# [id number] Ordering Dr: Gianfranco West MD STUDY: X-RAY [...] Service support , CC: Gianfranco West MD Reefer Truck Driver: Signed PROGRESS Observed: 10/16/2018 Status: COMPLETED Source: [place] 10:59 AM [facility] REPOSITORY HNO ID: [id number] Author: Albino Pfeiffer Service: (none) Author Type: Physician Type: Progress Notes Filed: 10/16/2018 11:25 AM Note Text: PERTINENT CARDIAC HISTORY ASHD - moderate by cath 2006 HL HTN Tobacco use ADHERENCE TO GUIDELINES YANNICK-I or ARB for HF with prior LVEF<40 (NQF 0081) - N/A ASA or Plavix for ASHD (NQF 0067) - met Beta gideon for ASHD with prior UT or prior LVEF<40 (NQF 0070) - N/A [...] SATISH Page Observed: 10/16/2018 Status: COMPLETED Source: [place] 10:30 AM [facility] REPOSITORY Office Visit (CAWSTR) YARI LOPEZ ([id number]) 1955 M Date Time Provider Department 10/16/18 [...] met Beta gideon for ASHD with prior UT or prior LVEF<40 (NQF 0070) - N/A [...] the following areas and commit to making orthopedic physician assistant changes. EAT A WHOLE FOOD, PLANT BASED [...] in your area. Referring Provider: ALBINO PFEIFFER [[id number]] Allergies As of Date: 10/16/2018 Noted Allergy [...] Date 10/16/2018 Noted Resolved Coronary arteriosclerosis in ute artery [I25*INVALID FOR* Chest discomfort [R07.89] INVALID [...] the following areas and commit to making orthopedic physician assistant changes. EAT A WHOLE FOOD, PLANT BASED [...] on file. Cosign accepted by ARIC CORONA DO[[id number]] on 12/14/2013 4:51 PM pravastatin (PRAVACHOL) 80 [...] AND LATERAL Observed: 09/16/2018 Status: F Source: [place] 4:46 PM [facility] REPOSITORY [facility] Imaging Services [address] [place] [address] Chest PA and Lateral MR#: [id number] Acct: [id number] Name: YARI LOPEZ Rep #: [id number] : 1955 M 63 From: Theo Ya MD PCP: SUDHIR MARCELINO Status: REG CLI Study: Chest PA and Lateral Date of Exam: 09/16/18 Exam# [id number] Ordering Dr: Rusty Self MD STUDY: X-RAY [...] EDT , Service support , CC: Rusty Self MD; SUDHIR MARCELINO Reefer Truck Driver: Signed ORTHOPEDIC VISIT Observed: 04/02/2018 Status: F Source: [place] REPORT 9:14 AM [facility] REPOSITORY [facility] [address] [address] OFFICE VISIT Date of Service: 03/21/18 MR#: [id number] Acct: [id number] Name: YARI LOPEZ Rep #: [id number] : 1955 Provider: Kendall Walter DO Age/Sex: 62/M Location: [facility] Status: Signed Intake Intake Visit Reasons: RIGHT [...] the long-term. Patient could consider an off core loader brace as well. For now we will hold off on the injection and we will submit for a medial off core loader brace to provide stability for his MCL [...] JOINT ONLY Observed: 03/19/2018 Status: F Source: [place] (ROUTINE) 6:45 AM [facility] REPOSITORY [facility] Imaging Services [address] [place] [address] Lower Ext Joint Only (Routine) MR#: [id number] Acct: [id number] Name: YARI LOPEZ Rep #: [id number] : 1955 62 From: Oral Evans MD PCP: SUDHIR MARCELINO Status: REG CLI Study: Lower Ext Joint Only (Routine) Date of Exam: 03/19/18 Exam# [id number] Ordering Dr: Kendall Walter DO STUDY: MRI [...] , CC: SUDHIR MARCELINO; Kendall Walter DO Reefer Truck Driver: Signed ORTHOPEDIC VISIT Observed: 02/16/2018 Status: F Source: [place] REPORT 10:59 AM [facility] REPOSITORY [facility] [address] [facility] [address] [place] [address] OFFICE VISIT Date of Service: 02/12/18 MR#: [id number] Acct: [id number] Name: YARI LOPEZ Rep #: [id number] : 1955 Provider: Kendall Walter DO Age/Sex: 62/M Location: [facility] Status: Signed Intake Intake Visit Reasons: RIGHT [...] of osteoarthritis. Plan: The patient is a [facility] patient this makes it problematic [...] with those restrictions. Await the follow-up from [facility] as the next course of [...] CC: ALT Collected: 02/10/2018 Status: F Source: [place] 2:27 PM [facility] REPOSITORY TYPE CODE TESTS RESULT OUT OF RANGE REFERENCE UNITS LAB ALT 10-54 U/L ALT 24 Performed By: #### ALT, BMP, CK, LIPB #### [facility] [address] [address] BASIC METABOLIC PANL Collected: 02/10/2018 Status: F Source: [place] 2:27 PM [facility] REPOSITORY TYPE CODE TESTS RESULT OUT OF REFERENCE UNITS RANGE LAB GLU 74-99 mg/dL Glucose 75 Result Comment: The [place] Diabetes Association (ADA) provides guidance for cutoff [...] Standards of Medical Care in Diabetes 2016, [place] Diabetes Association. Diabetes Care. 2016.39(Suppl 1). LAB [...] By: #### ALT, BMP, CK, LIPB #### [facility] [employer] [address] [place], [place] [address] CK Collected: 02/10/2018 Status: F Source: [facility] 2:27 PM [facility] [place] REPOSITORY TYPE CODE TESTS RESULT OUT OF RANGE REFERENCE UNITS LAB CK 51-298 U/L CK 205 Result Comment: Please note the updated, gender-specific reference range for this test (effective 11/01/2016). Performed By: #### ALT, BMP, CK, LIPB #### [facility] [employer] [address] [place], [place] [address] LIPID PANEL, BASIC Collected: 02/10/2018 Status: F Source: [place] 2:27 PM [facility] [place] REPOSITORY TYPE CODE TESTS RESULT OUT OF [...] Desk Reference: National Heart, Lung, and Blood [place]. National Institutes of Health. 2001: NIH Publication No. 01-3305. 2. An International Atherosclerosis Society position paper: global recommendations for the management of dyslipidemia: executive summary, Atherosclerosis. 2014: 232(2):410-413. Performed By: #### ALT, BMP, CK, LIPB #### [facility] [address] [place], [place] [address] PROGRESS Observed: 02/10/2018 Status: COMPLETED Source: [place] 2:01 PM [facility] REPOSITORY HNO ID: [id number] Author: Albino Pfeiffer Service: (none) Author Type: Physician Type: Progress Notes Filed: 02/11/2018 8:26 AM Note Text: PERTINENT CARDIAC HISTORY ASHD - moderate by cath 2006 HL HTN Tobacco use ADHERENCE TO GUIDELINES YANNICK-I or ARB for HF with prior LVEF<40 (NQF 0081) - N/A ASA or Plavix for ASHD (NQF 0067) - met Beta gideon for ASHD with prior UT or prior LVEF<40 (NQF 0070) - N/A [...] treatment plan. This note was generated using [x+1] voice recognition system, and there may be [...] SATISH Page Observed: 02/10/2018 Status: COMPLETED Source: [place] 1:30 PM [facility] REPOSITORY Office Visit (AGCARDWST) YARI LOPEZ ([id number]) 1955 M Date Time Provider Department 02/10/18 [...] met Beta gideon for ASHD with prior UT or prior LVEFANDlt;40 (NQF 0070) - N/A Beta gideon for HF with prior LVEFANDlt;40 (NQF 0083) - N/A YANNICK-I or ARB for ASHD with DM or prior LVEFANDlt;40 (NQ 0066) - met Statin therapy for ASHD or FHL or DM - met BMI documented and plan if ANDgt;25 (NQ 0421) - lifestyle recommendation form Tobacco use screening and referral ([facility] 0028) - lifestyle recommendation form Recommendation [...] treatment plan. This note was generated using [x+1] voice recognition system, and there may be [...] the following areas and commit to making fpc changes. EAT A WHOLE FOOD, PLANT BASED [...] Dr. Marcelino's office. Referring Provider: SUDHIR MARCELINO [[id number]] Allergies As of Date: 02/10/2018 Noted Allergy Reaction PENICILLINS 12/26/2010 7 - Swelling Date Reviewed: 02/10/2018 Reviewed by: Erin Perry) Jefe - Fully Assessed Reason for Visit: Recheck [92] Primary Visit Diagnosis:ASHD (arteriosclerotic heart disease) [I25.10] Other Visit Diagnosis:Hypertension, essential [I10] Order(s):ECG B/O W INTERP (MED OFFICE) [ECG06] Order #: [id number] Prescriptions as of 02/10/2018 Sig: PRAVASTATIN 80 [...] Date 02/10/2018 Noted Resolved Coronary arteriosclerosis in ute artery [I25*INVALID FOR* Chest discomfort [R07.89] INVALID [...] the following areas and commit to making orthopedic physician assistant changes. EAT A WHOLE FOOD, PLANT BASED [...] EMERGENCY DEPARTMENT Observed: 02/08/2018 Status: F Source: [place] SUMMARY 1:09 AM [facility] REPOSITORY [facility] Medical Records Department [address] [place] [address] Emergency Department Summary 02/07/18 2107 MR#: [id number] Acct: [id number] Name: YARI LOPEZ Rep #: [id number] : 1955 62 From: Kendall Hancock MD [...] knee sprain This note was generated with [x+1] dictation software. It may contain incorrect words, spelling, and punctuation that were not noted in review of the chart prior to signing ED Disposition - Plan for ED Patient: Disposition: Home or Assisted Living Chief Complaint: Fall Diagnosis: Knee sprain Instructions: ED Sprain Knee Referrals: iPa Loyola DO [STAFF PHYSICIAN] - As soon as possible [facility] [GROUP OF PHYSICIANS] - As soon as possible What to do if you have Problems For any increased pain, shortness of breath, bleeding, nausea or vomiting, chest pain, or any unexpected problems, contact your Primary Care Provider. Call [facility] ([phone]) or report to the closest Emergency Room. Call 911 if necessary. 02/08/18 0109 <Electronically signed by Kendall Hancock MD> Date Kendall Hancock MD Cosigner Signature (If Indicated): Date CC: SUDHIR MARCELINO KNEE 4 OR MORE Observed: 02/07/2018 Status: F Source: [place] VIEWS 7:22 PM [facility] REPOSITORY [facility] Imaging Services [address] [place] [address] [place] [address] Knee 4 or More Views MR#: [id number] Acct: [id number] Name: YARI LOPEZ Rep #: [id number] : 1955 M 62 From: Kate Sargent MD PCP: SUDHIR MARCELINO Status: REG ER Study: Knee 4 or More Views Date of Exam: 02/07/18 Exam# [id number] Ordering Dr: Kendall Hancock MD XR Knee [...] support , CC: SUDHIR MARCELINO; Kendall Hancock Reefer Truck Driver: Signed OBSOLETE Observed: 12/17/2017 Status: COMPLETED Source: [place] 12:00 AM [facility] REPOSITORY Refill (CHASE) YARI LOPEZ ([id number]) 1955 M Date Time Provider Department 12/17/17 [...] 3 BASIC METABOLIC PNL [SQBMP] Order #: [id number] FUTURE LIPID PANEL BASIC [SQLIPB] Order #: [id number] FUTURE ALT/SGPT [SQALT] Order #: [id number] FUTURE CK CREATINE KINASE [SQCK] Order #: [id number] FUTURE Prescriptions as of 12/17/2017 Sig: PRAVASTATIN [...] Date 12/17/2017 Noted Resolved Coronary arteriosclerosis in ute artery [I25*INVALID FOR* Chest discomfort [R07.89] INVALID [...] / CODE REACTION SEVERITY SOURCE 11/13/2018 Drug Penicillins/Z11245 Swelling Unknown [place] Allergy/416 0476(RXNORM) [facility] 814268([facility] CT) Repository 12/26/2010 Drug PENICILLINS SWELLING [facility] Class/41827 Other [place] 1003(SNOMED Repository CT) [id number] PENICILLINS [facility] 6([facility] CT) Repository ENCOUNTERS ENCOUNTERS ADMIT/DISCHARGE ACCOUNT NUMBER ADMITTING ENCOUNTER LOCATION SOURCE CLASS 11/13/2018/11/13/20 [id number] Ambulatory BMSBuilding: [place] 18 BMS.[facility] Repository 11/03/2018 [id number] Ambulatory BMSBuilding: [place] BMS.[facility] Repository 10/30/2018 [id number] Ambulatory [facility] ding:MTLAB Repository 10/27/2018/10/27/20 [id number] Emergency [address] ding:ED Repository 10/27/2018 [id number] Ambulatory [facility] ding:MTRAD Repository 10/16/2018/10/16/20 [id number] Ambulatory [address] Main [place] Repository 10/16/2018 [id number] Ambulatory [facility] MEDICAL Repository CENTERBuildi ng:CAGWS 09/16/2018 [id number] Ambulatory [facility] ding:MTRAD Repository 03/21/2018/03/21/20 [id number] Ambulatory BMSBuilding: [place] 18 [facility]Community Health Repository 03/19/2018 [id number] Ambulatory [facility] ding:MRI Repository 02/13/2018 [id number] Ambulatory [facility] MEDICAL Repository CENTERBuildi ng:CAGWS 02/12/2018/02/13/20 [id number] Ambulatory BMSBuilding: [place] 18 BMS.[facility] Repository 02/10/2018/02/11/20 [id number] Ambulatory [address] Main [place] Repository 02/10/2018/02/11/20 [id number] Ambulatory [address] Other [place] Repository 02/10/2018/02/11/20 [id number] Ambulatory [address] MEDICAL Repository CENTERBuildi ng:CAGWS 02/07/2018/02/08/20 [id number] Emergency [address] ding:ED Repository PAYERS PAYERS ENCOUNTER GUARANTOR PAYER SUBSCRIBER SOURCE 11/13/2018 YARI Joyce Primary YARI K [place] [id number] Insurance:ANTHEMPolicy HIBBITTSDOB: [facility] Number: [id number] [id number] Repository [address]Hjq: 330) Date:7506-40-13[phone] ([facility] [address], [place] [address]WM: 11/13/2018 Secondary NOT GIVENUNK [place] Insurance:SELF PAY Community INSURANCEPolicy Number: Hospital Effective Repository Date:2018-11-13 11/03/2018 YARI Joyce Primary YARI Joyce [place] [id number] Insurance:ANTHEMPolicy HIBBITTSDOB: Community [place] Number: [id number], [place] [id number] Repository [address]Hbi: (330) Date:3281-09-58JK [phone] () TAHIR RASMUSSEN [address]YO: 11/03/2018 Secondary NOT GIVENUNK [place] Insurance:SELF PAY Community INSURANCEPolicy Number: Hospital Effective Repository Date:2018-11-03 10/30/2018 YARI Joyce Primary YARI Joyce [place] [id number] Insurance:ANTHEMPolicy HIBBITTSDOB: Community [place] Number: [id number] [id number] Repository [address]Fsj: (330) Date:9426-86-43[phone] () TAHIR RASMUSSEN [address]QC: 10/30/2018 Secondary NOT GIVENUNK [place] Insurance:SELF PAY Community INSURANCEPolicy Number: Hospital Effective Repository Date:2018-10-30 10/27/2018 YARI Joyce Primary YARI Joyce [place] [id number] Insurance:ANTHEMPolicy HIBBITTSDOB: Community [place] Number: [id number] [id number] Repository [address]Nhh: (330) Date:2562-98-48JE [phone] () TAHIR RASMUSSEN [address]LJ: 10/27/2018 Secondary NOT GIVENUNK [place] Insurance:SELF PAY Community INSURANCEPolicy Number: Hospital Effective Repository Date:2018-10-27 10/27/2018 YARI Joyce Primary YARI Joyce [place] [id number] Insurance:ANTHEMPolicy HIBBITTSDOB: Community [place] Number: [id number] [id number] Repository [address]Cen: ([phone]) Date:7977-90-72JU [phone] () TAHIR RASMUSSEN [address]KP: 10/27/2018 Secondary NOT GIVENUNK [place] Insurance:SELF PAY Community INSURANCEPolicy Number: Hospital Effective Repository Date:2018-10-27 10/16/2018 YARI Joyce Primary Insurance:MICAELA YARI [facility] HIBBITTSDOB: CARD PPOPolicy Number: HIBBITTSDOB: Health [facility] [id number] [place], [place] [address]Zjh: () 09/16/2018 YARI Joyce Primary YARI Joyce [place] [id number] Insurance:ANTHEMPolicy HIBBITTSDOB: [facility] Number: [id number] [id number] Repository [id number]: ([phone]) Date:5705-72-17NU [phone] () [id number], [place] [address]SH: 09/16/2018 Secondary NOT GIVENUNK [place] Insurance:SELF PAY Community INSURANCEPolicy Number: Hospital Effective Repository Date:2018-09-16 03/21/2018 YARI Joyce Primary YARI Joyce [place] [id number] Insurance:[employer]AREWORKS HIBBITTSDOB: [facility] CONSULTANTSPolicy [id number] [place], [place] Number: Repository [id number]: [id number] [phone] () Date:0092-56-65IV [address]LEENSc[place], [place] [address]VR: 03/21/2018 Secondary NOT GIVENUNK [place] Insurance:SELF PAY Community INSURANCEPolicy Number: Hospital Effective Repository Date:2018-03-12 03/19/2018 YARI Joyce Primary YARI Joyce [place] [id number] Insurance:[employer]ARE[employer]KS HIBBITTSDOB: [facility] CONSULTANTSPolicy [id number] [place] Number: Repository [id number]: [phone] [phone] () Date:7589-31-81JA [address]DUBLScud[place], [place] [address]UE: 03/19/2018 Secondary YARI K [place] Insurance:[facility] HIBBITTSDOB: Community CAREWORKSPolicy Number: [id number] Hospital [id number] Repository Date:3241-69-37QW [address]CXKDBAWM, [place] [address]ID: 03/19/2018 Tertiary Insurance:SELF NOT GIVENUNK [place] PAY INSURANCEPolicy Community Number: Effective Hospital Date:2018-03-17 Repository 02/13/2018 YARI K Primary Insurance:BLUE YARI K [facility] HIBBITTSDOB: CARD PPOPolicy Number: HIBBITTSDOB: Health System [id number] Repository [address] Date: [place], [place] [address]Oik: () 02/12/2018 YARI K Primary YARI K [place] [id number] Insurance:[employer]ARE[employer]KS HIBBITTSDOB: [facility] [id number] [place] Number: Repository [id number]: [phone] [id number] [phone] () Date:1329-44-55YD [address]DUFEI[place], [place] [address]SY: 02/12/2018 Secondary NOT GIVENUNK [place] Insurance:SELF PAY Community INSURANCEPolicy Number: Hospital Effective Repository Date:2018-02-10 02/10/2018 YARI K Primary Insurance:BLUE YARI K [facility] HIBBITTSDOB: CARD PPOPolicy Number: HIBBITTSDOB: Health System [id number] Repository [address] Date: [place], [place] [address]Tgv: () 02/07/2018 YARI K Primary YARI K [place] [id number] Insurance:[employer]ARE[employer]KS HIBBITTSDOB: [facility] [id number] [place] Number: Repository [id number]: [phone] [id number] [phone] () Date:1023-65-97UQ [address]DUKATHLEENJUAN [place], [place] [address]RR: 02/07/2018 Secondary NOT GIVENUNK [place] Insurance:SELF PAY Community INSURANCEPolicy Number: Hospital Effective Repository Date:2018-02-07
== END 2018-10-27 19:13 | disposition home or self-care (01) ==
PROVIDERS: Emergency Provider Emergency Medicine; Family Provider Family Medicine; PCP Family Medicine
DX: M25.461 Effusion, right knee (principal); S83.206D Unspecified tear of unspecified meniscus, current injury, right knee, subsequent encounter; G89.29 Other chronic pain; F17.200 Nicotine dependence, unspecified, uncomplicated; Z79.82 Long term (current) use of aspirin; Z79.899 Other long term (current) drug therapy; X58.XXXD Exposure to other specified factors, subsequent encounter
CPT/HCPCS: 96372; 99282

== ENCOUNTER → 2018-10-30 11:03 | Outpatient (CLI) | payer BC, SELFPAY ==
[2018-10-27 17:10] VITALS: BMI 32.1
[2018-10-30 12:21] LABS: Anion Gap 9 (5-15); BUN 16 mg/dL (7-18); BUN/Creat Ratio 19.1 RATIO (10-20); Calcium,Total 9.7 mg/dL (8.5-10.1); Chloride 103 mmol/L (98-107); Cholesterol 150 mg/dL (200); Creatinine, Serum 0.84 mg/dL (0.70-1.30); EST Glomerular Filtration Rate 99 mL/min (>60); Est Glom Filt Rate - Afr Amer 120 mL/min (>60); Glucose 103 mg/dL (74-106); High Density Lipoprotein 53 mg/dL; PSA,Total - Annual Screen 1.56 ng/mL (0.00-4.00); Potassium 4.1 mmol/L (3.5-5.1); Sodium Level 137 mmol/L (136-145); Triglycerides 105 mg/dL; Very Low Density Lipoprotein 21 mg/dL (5-40); Vitamin D,25 Hydroxy 10.8 ng/mL (29.95-100.01)
--- OUTSIDE RECORDS SUMMARY | 2018-12-16 06:26 | XMS RPT_ITS ---
:1955 Author Organization OHIP Support Name Relationship Address Phone ELIJAH STEPHAN Unavailable [address] + [place] [address] MONRO MUFFLER Unavailable [address] + [place] [address] HIBBITTS, STEPHAN Unavailable [address] + [place] [address] MONRO MUFFLER Unavailable [address] + [place] [address] HIBBITTS, STEPHAN Unavailable [address] + [place] [address] MONRO MUFFLER Unavailable [address] + [place] [address] HIBBITTS, STEPHAN Unavailable [address] + [place] [address] MONRO MUFFLER Unavailable [address] + [place] [address] HIBBITTS, STEPHAN Unavailable [address] + [place] [address] MONRO MUFFLER Unavailable [address] + [place] [address] HIBBITTS, STEPHAN Unavailable [address] + [place] [address] MONRO MUFFLER Unavailable [address] + [place] [address] HIBBITTS, STEPHAN Unavailable [address] + [place] [address] MONRO MUFFLER Unavailable [address] + [place] [address] HIBBITTS, STEPHAN Unavailable [address] + [place] [address] MONRO MUFFLER Unavailable [address] + [place] [address] HIBBITTS, STEPHAN Unavailable [address] + [place] [address] MONRO MUFFLER Unavailable [address] + [place] [address] HIBBITTS, STEPHAN Unavailable [address] + [place] [address] MONRO MUFFLER Unavailable [address] + [place] [address] Care Team Providers Name Role Phone Gianfranco West Attending Unavailable Brett, Gianfranco Referring Unavailable Brett, Gianfranco Primary Care Unavailable Brett, Gianfranco Primary Care Unavailable NIKKI DEMPSEY Attending Unavailable Brett, Gianfranco Attending Unavailable Brett, Gianfranco Referring Unavailable Brett, Gianfranco Primary Care Unavailable PENVOSE, SUDHIR Primary Care Unavailable Kendall Hancock Attending Unavailable Jose Angel, Kendall Attending Unavailable PENZARISE, SUDHIR Referring Unavailable PENVOSE, SUDHIR Primary Care Unavailable Jose Angel, Kendall Attending Unavailable Jose Angel, Kendall Referring Unavailable PENVOSE, SUDHIR Primary Care Unavailable Jose Angel, Kendall Attending Unavailable PENVOSE, SUDHIR Referring Unavailable PENVOSE, SUDHIR Primary Care Unavailable Rusty Self Attending Unavailable Rusty Self Referring Unavailable PENVOSE, SUDHIR Primary Care Unavailable Saranya Downey Attending Unavailable Gianfranco Wells Attending Unavailable RENZOSE, SUDHIR Referring Unavailable ALBINO PFEIFFER Referring Unavailable ALBINO PFEIFFER Attending Unavailable ALBINO PFEIFFER Referring Unavailable ALBINO PFEIFFER Attending Unavailable RENZOSE, SUDHIR DUNG Referring Unavailable ALBINO PFEIFFER Attending Unavailable PENVOSE, LATONIA Referring Unavailable PENVOSE, LATONIA Primary Care Unavailable ALBINO PFEIFFER Attending Unavailable PENZARISE, LATONIA Referring Unavailable PENVOSE, LAOTNIA Primary Care Unavailable ALBINO PFEIFFER Attending Unavailable ALBINO PFEIFFER Referring Unavailable PENVOSE, LATONIA Primary Care Unavailable PROBLEMS PROBLEMS DATE TYPE CONDITION / CODE ATTENDING STATUS SOURCE 11/13/2018 Unknown I25.10 - Priscilla, Active [place] Atherosclerotic Gianfranco [facility] heart disease of [facility] [place] coronary Repository artery without angina pectoris / I25.10(ICD-10) 10/28/2018 Unknown S83.206A - KE, Active [place] [facility] Hospital meniscus, current Repository injury, right knee, initial encounter / S83.206A(ICD-10) 09/16/2018 Unknown J20.9 - Acute SchRusty worrell Active [place] bronchitis, E Community unspecified / Hospital J20.9(ICD-10) Repository 12/03/2018 Unknown S83.411A - Sprain of Kendall Walter Active [place] medial collateral Community ligament of right Hospital knee, initial Repository encounter / S83.411A(ICD-10) 02/10/2018 Active Atherosclerotic NA Active [place] heart disease of [facility] [place] coronary [place] artery without Repository angina pectoris / I25.10(ICD-10) 02/10/2018 Active Essential (primary) MARGARETTE, Active [place] hypertension / [facility] Other I10(ICD-10) [place] Repository 02/10/2018 Admitting Unknown / MARGARETTE, Active [place] [facility] diagnosis UNK(Unknown) [facility] Repository PROCEDURES PROCEDURES No Procedure Records FoundRESULTS RESULTS CARDIOLOGY VISIT Observed: 11/13/2018 Status: F Source: [place] REPORT 12:35 PM [facility] REPOSITORY [facility] [address] [place] [address] OFFICE VISIT Date of Service: 11/13/18 MR#: [id number] Acct: [id number] Name: YARI LOPEZ Rep #: [id number] : 1955 Provider: Gianfranco Wells MD Age/Sex: 63/M Location: [facility] Status: Signed HPI HPI Details: AYRI LOPEZ, is a 63 M who presents to the office today for outpatient cardiovascular consultation to establish cardiovascular care for history of underlying hyperlipidemia, hypertension, and CAD. He has previously been followed by cardiology in [place], [place] as well as [facility] cardiology in [place], [place]. He states many years ago, during an illness with respect to pneumonia, he underwent a diagnostic cardiac catheterization at [facility] in [place], [place]. To the best of his knowledge she had some element of underlying CAD but not significant and did not require any form of intervention. He denies any ongoing concerning chest discomfort at rest or with exertion. There has been no issues with overt CHF or pulmonary edema. Her has been no near syncope or syncope. He recently was evaluated by his previous switch coupler, Dr. Albino Pfeiffer formally of [facility] cardiology, for his outpatient appointment. He states [...] PO DAILY tab 11/13/18 [History Confirmed 11/13/18] [facility] Medical History Essential hypertension (Chronic) Atherosclerotic heart disease of [place] coronary artery without angina pectoris (Chronic) Tobacco [...] affect Assessment AND Plan 1. Atherosclerosis of [place] coronary artery of [place] heart without angina pectoris I25.10 Moderate per cath 2005 Plan At the present time he appears to be symptomatically and stable. He will continue risk factor evaluation care per A copy of a previous stress echocardiogram was obtained from 01/14/2014. At that time the study was reported as negative. This was performed through the [facility] institution. If and when the patient does [...] Code Off vis,new,level 3 Diagnoses Atherosclerosis of [place] coronary artery of [place] heart without angina pectoris I25.10 [place] vs. transplanted heart: [place] heart Hyperlipidemia, unspecified hyperlipidemia type E78.5 Hyperlipidemia type: unspecified Essential hypertension I10 Tobacco abuse Z72.0 Coding Level of Care Code Off vis,new,level 3 Diagnoses Atherosclerosis of [place] coronary artery of [place] heart without angina pectoris I25.10 [place] vs. transplanted heart: [place] heart Hyperlipidemia, unspecified hyperlipidemia type E78.5 Hyperlipidemia type: unspecified Essential hypertension I10 Tobacco abuse Z72.0 11/13/18 1235 <Electronically signed by Gianfranco Wells MD> Date Gianfranco Wells MD Cosigner Signature: Date (if applicable) CC: Gianfranco West MD 12 LEAD EKG PERFORMED Observed: 11/13/2018 Status: F Source: [place] [facility] [place] AM [facility] [address] [place] [address] 12 Lead EKG performed by [facility] 11/13/18 1122 MR#: [id number] Acct: [id number] Name: YARI LOPEZ Rep #: [id number] : 1955 63 From: Gianfranco Wells MD Attending Dr: Gianfranco Wells MD Status: DEP AMB Ordering Dr: Gianfranco Wells MD Date: 11/13/18 Location: [facility] Sex: M C Admitted: [facility]12 Lead EKG performed by [facility] ECG Report Interpretation Sinus Rhythm Incomplete right bundle branch block. ABNORMAL Electronically signed on 11/13/2018 at 16:19 by Gianfranco Wells Software Version 8610 11/13/18 1620 Date Gianfranco Wells MD CC: SUDHIR MARCELINO Date Dictated: 11/13/181121 Date Transcribed: 11/13/181121 Mallet And Die Cutter: PM Signed BASIC METABOLIC Collected: 10/30/2018 Status: F Source: [place] PROFILE (BMP) 11:14 AM [facility] [place] TYPE CODE TESTS RESULT OUT [...] Performed By: #### L500.2500, L500.4100, L501.9910 #### [facility] [address] [place], [place], [address] LIPID PROFILE Collected: 10/30/2018 Status: F Source: [place] 11:14 AM [facility] [place] TYPE CODE TESTS RESULT OUT [...] Performed By: #### L500.2500, L500.4100, L501.9910 #### [facility] [address] [place], [address] PSA,TOTAL - ANNUAL Collected: 10/30/2018 Status: F Source: [place] SCREEN 11:14 AM [facility] [place] TYPE CODE TESTS RESULT OUT OF RANGE REFERENCE UNITS LAB L501.9910 0.00-4.00 ng/mL Normal PSA,TOT 1.56 SCREEN Result Comment: This test was performed using the TPSA assay method for the [employer] chemistry system. Values obtained with different assay methods cannot be used interchangably. When changing PSA assays in the course of monitoring a patient, additional sequential testing should be carried out to confirm baseline values. Performed By: #### L500.2500, L500.4100, L501.9910 #### [facility] [address] [place], [address] VITAMIN D,25 HYDROXY Collected: 10/30/2018 Status: F Source: [place] 11:14 AM [facility] [place] TYPE CODE TESTS RESULT OUT OF REFERENCE UNITS RANGE LAB L506.1000 29.95-100.01 ng/mL Low Vitamin D 10.8 25-OH Result Comment: Vitamin D 25(OH) Status Range Deficiency <20 ng/mL (50nmol/L) Insuffciency 20 - 30 ng/mL (50 - 75 nmol/L) Sufficiency 30 - 100 ng/mL (75 - 250 nmol/L) Toxicity >100 ng/mL (>250 nmol/L) Performed By: #### L506.1000 #### [facility] [address] [place], [address] EMERGENCY DEPARTMENT Observed: 10/27/2018 Status: F Source: [place] SUMMARY 6:40 PM [facility] [facility] Medical Records Department [address] [address] Emergency Department Summary 10/27/18 1831 MR#: [id number] Acct: [id number] Name: ELIJAHYARI K Rep #: [id number] : 1955 63 From: Nikki Dempsey MD [...] your Primary Care Provider. Call [facility] ([phone]) or report to the closest Emergency Room. Call 911 if necessary. 10/27/18 1840 <Electronically signed by Nikki Dempsey MD> Date Nikki Dempsey MD Cosigner Signature (If Indicated): Date CC: Gianfranco West MD KNEE 3 VIEWS Observed: 10/27/2018 Status: F Source: [place] 4:33 PM [facility] [facility] Imaging Services [address] [place] [address] Knee 3 Views MR#: [id number] Acct: [id number] Name: YARI LOPEZ Rep #: [id number] : 1955 M 63 From: Theo Ya MD PCP: Gianfranco West MD Status: REG CLI Study: Knee 3 Views Date of Exam: 10/27/18 Exam# [id number] Ordering Dr: Gianfranco West MD STUDY: X-RAY [...] Service support , CC: Gianfranco West MD Mallet And Die Cutter: Signed PROGRESS Observed: 10/16/2018 Status: COMPLETED Source: [place] 10:59 AM [facility] REPOSITORY O ID: [id number] Author: Albino Pfeiffer Service: (none) Author Type: Physician Type: Progress Notes Filed: 10/16/2018 11:25 AM Note Text: PERTINENT CARDIAC HISTORY ASHD - moderate by cath 2006 HL HTN Tobacco use ADHERENCE TO GUIDELINES YANNICK-I or ARB for HF with prior LVEF<40 (NQF 0081) - N/A ASA or Plavix for ASHD (NQF 0067) - met Beta gideon for ASHD with prior SC or prior LVEF<40 (NQF 0070) - N/A Beta gideon for HF with prior LVEF<40 (NQF 0083) - N/A YANNICK-I or ARB for ASHD with DM or prior LVEF<40 (NQF 0066) - met Statin therapy for ASHD or FHL or DM - met BMI documented and plan if >25 (NQ 0421) - lifestyle recommendation form Tobacco [...] SATISH Page Observed: 10/16/2018 Status: COMPLETED Source: [place] 10:30 AM [facility] REPOSITORY Office Visit (CAWSTR) YARI LOPEZ ([id number]) 1955 M Date Time Provider Department 10/16/18 [...] met Beta gideon for ASHD with prior SC or prior LVEF<40 (NQF 0070) - N/A [...] MD October 16, 2018 10:59 AM CC: Sudhir Marcelino, DO Albino Pfeiffer MD 10/16/2018 10:59 AM Signed LIFESTYLE CHANGE A healthy lifestyle is the most important component of your overall treatment plan. Please give serious thought to the following areas and commit to making offset printer changes. EAT A WHOLE FOOD, PLANT BASED [...] in your area. Referring Provider: ALBINO PFEIFFER [[id number]] Allergies As of Date: 10/16/2018 Noted Allergy [...] Date 10/16/2018 Noted Resolved Coronary arteriosclerosis in [place] artery [I25*INVALID FOR* Chest discomfort [R07.89] INVALID [...] the following areas and commit to making offset printer changes. EAT A WHOLE FOOD, PLANT BASED [...] on file. Cosign accepted by ARIC CORONA DO[[id number]] on 12/14/2013 4:51 PM pravastatin (PRAVACHOL) 80 [...] AND LATERAL Observed: 09/16/2018 Status: F Source: [place] 4:46 PM [facility] [place] [facility] Imaging Services [address] [place] [address] Chest PA and Lateral MR#: [id number] Acct: [id number] Name: YARI LOPEZ Rep #: [id number] : 1955 M 63 From: Theo Ya MD PCP: SUDHIR MARCELINO Status: REG CLI Study: Chest PA and Lateral Date of Exam: 09/16/18 Exam# [id number] Ordering Dr: Rusty Self MD STUDY: X-RAY [...] , CC: Rusty Self MD; SUDHIR MARCELINO Mallet And Die Cutter: Signed ORTHOPEDIC VISIT Observed: 04/02/2018 Status: F Source: [place] REPORT 9:14 AM [facility] [place] [facility] Orthopaedics AND Sports Medicine [address] [place] [address] OFFICE VISIT Date of Service: 03/21/18 MR#: [id number] Acct: [id number] Name: YARI LOPEZ Rep #: [id number] : 1955 Provider: Kendall Walter DO Age/Sex: 62/M Location[place] [facility] [place] [facility] Status: Signed Intake Intake Visit Reasons: RIGHT [...] the long-term. Patient could consider an off hoist cylinder loader brace as well. For now we will hold off on the injection and we will submit for a medial off hoist cylinder loader brace to provide stability for his [...] JOINT ONLY Observed: 03/19/2018 Status: F Source: [place] (ROUTINE) 6:45 AM [facility] Imaging Services [address] [place] [address] Lower Ext Joint Only (Routine) MR#: [id number] Acct: [id number] Name: YARI LOPEZ Rep #: [id number] : 1955 62 From: Oral Evans MD PCP: SUDHIR MARCELINO Status: REG CLI Study: Lower Ext Joint Only (Routine) Date of Exam: 03/19/18 Exam# [id number] Ordering Dr: Kendall Walter DO STUDY: MRI [...] , CC: SUDHIR MARCELINO; Kendall Walter DO Mallet And Die Cutter: Signed ORTHOPEDIC VISIT Observed: 02/16/2018 Status: F Source: [place] REPORT 10:59 AM [facility] [place] Orthopaedics AND Sports Medicine [address] [facility] [address] [place] [address] OFFICE VISIT Date of Service: 02/12/18 MR#: [id number] Acct: [id number] Name: YARI LOPEZ Rep #: [id number] : 1955 Provider: Kendall Walter DO Age/Sex: [...] of osteoarthritis. Plan: The patient is a [facility] patient this makes it problematic for me. [...] with those restrictions. Await the follow-up from [facility] as the next course of treatment. I [...] CC: ALT Collected: 02/10/2018 Status: F Source: [place] 2:27 PM [facility] REPOSITORY TYPE CODE TESTS RESULT OUT OF RANGE REFERENCE UNITS LAB ALT 10-54 U/L ALT 24 Performed By: #### ALT, BMP, CK, LIPB #### [facility] [address] [address] BASIC METABOLIC PANL Collected: 02/10/2018 Status: F Source: [place] 2:27 PM [facility] REPOSITORY TYPE CODE TESTS RESULT OUT OF REFERENCE UNITS RANGE LAB GLU 74-99 mg/dL Glucose 75 Result Comment: The [place] Diabetes Association (ADA) provides guidance for cutoff [...] Standards of Medical Care in Diabetes 2016, [place] Diabetes Association. Diabetes Care. 2016.39(Suppl 1). LAB [...] By: #### ALT, BMP, CK, LIPB #### [facility] [address] [place], [place] [address] CK Collected: 02/10/2018 Status: F Source: [facility] 2:27 PM [facility] REPOSITORY TYPE CODE TESTS RESULT OUT OF RANGE REFERENCE UNITS LAB CK 51-298 U/L CK 205 Result Comment: Please note the updated, gender-specific reference range for this test (effective 11/01/2016). Performed By: #### ALT, BMP, CK, LIPB #### [facility] [address] [place], [place] [address] LIPID PANEL, BASIC Collected: 02/10/2018 Status: F Source: [place] 2:27 PM [facility] REPOSITORY TYPE CODE TESTS RESULT OUT OF [...] Desk Reference: National Heart, Lung, and Blood [place]. National Institutes of Health. 2001: NIH Publication No. 01-3305. 2. An International Atherosclerosis Society position paper: global recommendations for the management of dyslipidemia: executive summary, Atherosclerosis. 2014: 232(2):410-413. Performed By: #### ALT, BMP, CK, LIPB #### [facility] [address] [place], [place] [address] PROGRESS Observed: 02/10/2018 Status: COMPLETED Source: [place] 2:01 PM [facility] REPOSITORY HNO ID: [id number] Author: Albino Pfeiffer Service: (none) Author Type: Physician Type: Progress Notes Filed: 02/11/2018 8:26 AM Note Text: PERTINENT CARDIAC HISTORY ASHD - moderate by cath 2006 HL HTN Tobacco use ADHERENCE TO GUIDELINES YANNICK-I or ARB for HF with prior LVEF<40 (NQF 0081) - N/A ASA or Plavix for ASHD (NQF 0067) - met Beta gideon for ASHD with prior SC or prior LVEF<40 (NQF 0070) - N/A [...] treatment plan. This note was generated using [employer] voice recognition system, and there may be [...] SATISH Page Observed: 02/10/2018 Status: COMPLETED Source: [place] 1:30 PM [facility] REPOSITORY Office Visit (AGCARDWST) YARI LOPEZ ([id number]) 1955 M Date Time Provider Department 02/10/18 [...] met Beta gideon for ASHD with prior SC or prior LVEFANDlt;40 (NQF 0070) - N/A Beta gideon for HF with prior LVEFANDlt;40 (NQF 0083) - N/A YANNICK-I or ARB for ASHD with DM or prior LVEFANDlt;40 ([facility] 0066) - met Statin therapy for ASHD or FHL or DM - met BMI documented and plan if ANDgt;25 ([facility] 0421) - lifestyle recommendation form Tobacco use screening and referral ([facility] 0028) - lifestyle recommendation form Recommendation [...] treatment plan. This note was generated using [employer] voice recognition system, and there may be [...] MD February 10, 2018 2:01 PM CC:DO Albino Page MD 02/10/2018 2:01 PM Signed LIFESTYLE CHANGE A healthy lifestyle is the most important component of your overall treatment plan. Please give serious thought to the following areas and commit to making offset printer changes. EAT A WHOLE FOOD, PLANT BASED [...] Dr. Marcelino's office. Referring Provider: SUDHIR MARCELINO [[id number]] Allergies As of Date: 02/10/2018 Noted Allergy Reaction PENICILLINS 12/26/2010 7 - Swelling Date Reviewed: 02/10/2018 Reviewed by: Erin Perry) Jefe - Fully Assessed Reason for Visit: Recheck [92] Primary Visit Diagnosis:ASHD (arteriosclerotic heart disease) [I25.10] Other Visit Diagnosis:Hypertension, essential [I10] Order(s):ECG B/O W INTERP (MED OFFICE) [ECG06] Order #: [id number] Prescriptions as of 02/10/2018 Sig: PRAVASTATIN 80 [...] Date 02/10/2018 Noted Resolved Coronary arteriosclerosis in [place] artery [I25*INVALID FOR* Chest discomfort [R07.89] INVALID [...] the following areas and commit to making offset printer changes. EAT A WHOLE FOOD, PLANT BASED [...] programs in your area. Visit Notes: >> Chralie Wu) ELIEZER Guo chante Feb 11, 2018 8:44 AM Status: Signed Copy of OV note mailed to Dr. Marcelino's office. Encounter Status:Closed by ALBINO PFEIFFER MD on 02/11/18 EMERGENCY DEPARTMENT Observed: 02/08/2018 Status: F Source: [place] SUMMARY 1:09 AM [facility] [place] [facility] Medical Records Department [address] [place] [address] Emergency Department Summary 02/07/18 2107 MR#: [id number] Acct: [id number] Name: YARI LOPEZ Rep #: [id number] : 1955 62 From: Kendall Hancock MD [...] knee sprain This note was generated with [employer] dictation software. It may contain incorrect words, [...] problems, contact your Primary Care Provider. Call [employer] [facility] ([phone]) or report to the closest Emergency Room. Call 911 if necessary. 02/08/18 0109 <Electronically signed by Kendall Hancock MD> Date Kendall Hancock MD Cosigner Signature (If Indicated): Date CC: SUDHIR MARCELINO KNEE 4 OR MORE Observed: 02/07/2018 Status: F Source: [place] VIEWS 7:22 PM [facility] [place] [facility] Imaging Services [address] [place] [address] Knee 4 or More Views MR#: [id number] Acct: [id number] Name: YARI LOPEZ Rep #: [id number] : 1955 M 62 From: Kate Sargent MD PCP: SUDHIR MARCELINO Status: REG ER Study: Knee 4 or More Views Date of Exam: 02/07/18 Exam# [id number] Ordering Dr: Kendall Hancock MD XR Knee [...] support , CC: SUDHIR MARCELINO; Kendall Hancock Mallet And Die Cutter: Signed OBSOLETE Observed: 12/17/2017 Status: COMPLETED Source: [place] 12:00 AM [facility] REPOSITORY Refill (CHASE) YARI LOPEZ ([id number]) 1955 M Date Time Provider Department 12/17/17 [...] for him to return our call. Charlie Guo RN, RN 12/18/2017 2:01 PM Signed Appointment [...] 3 BASIC METABOLIC PNL [SQBMP] Order #: [id number] FUTURE LIPID PANEL BASIC [SQLIPB] Order #: [id number] FUTURE ALT/SGPT [SQALT] Order #: [id number] FUTURE CK CREATINE KINASE [SQCK] Order #: [id number] FUTURE Prescriptions as of 12/17/2017 Sig: PRAVASTATIN [...] Date 12/17/2017 Noted Resolved Coronary arteriosclerosis in [place] artery [I25*INVALID FOR* Chest discomfort [R07.89] INVALID [...] / CODE REACTION SEVERITY SOURCE 11/13/2018 Drug Penicillins/[id number] Swelling Unknown [place] Allergy/416 0476(RXNORM) [facility] 284437([facility] ED CT) Repository 12/26/2010 Drug PENICILLINS SWELLING [facility] Class/[address] [place] 1003(SNOMED Repository CT) [id number] PENICILLINS [facility] 6([facility] CT) Repository ENCOUNTERS ENCOUNTERS ADMIT/DISCHARGE ACCOUNT NUMBER ADMITTING ENCOUNTER LOCATION SOURCE CLASS 11/13/2018/11/13/20 [id number] Ambulatory BMSBuilding: [place] 18 BMS.[facility] Repository 11/03/2018 [id number] Ambulatory BMSBuilding: [place] BMS.[facility] Repository 10/30/2018 [id number] Ambulatory [facility] ding:MTLAB Repository 10/27/2018/10/27/20 [id number] Emergency [address] ding:ED Repository 10/27/2018 [id number] Ambulatory [facility] ding:MTRAD Repository 10/16/2018/10/16/20 [id number] Ambulatory [address] Main [place] Repository 10/16/2018 [id number] Ambulatory [facility] MEDICAL Repository CENTERBuildi ng:CAGWS 09/16/2018 [id number] Ambulatory [facility] ding:MTRAD Repository 03/21/2018/03/21/20 [id number] Ambulatory BMSBuilding: [place] 18 BMS.[facility] Repository 03/19/2018 [id number] Ambulatory [facility] ding:MRI Repository 02/13/2018 [id number] Ambulatory [facility] MEDICAL Repository CENTERBuildi ng:CAGWS 02/12/2018/02/13/20 [id number] Ambulatory BMSBuilding: Ritchie 18 BMS.[facility] Repository 02/10/2018/02/11/20 [id number] Ambulatory [address] Main [place] Repository 02/10/2018/02/11/20 [id number] Ambulatory [address] Other [place] Repository 02/10/2018/02/11/20 [id number] Ambulatory [address] MEDICAL Repository CENTERBuildi ng:CAGWS 02/07/2018/02/08/20 [id number] Emergency [address] ding:ED Repository PAYERS PAYERS ENCOUNTER GUARANTOR PAYER SUBSCRIBER SOURCE 11/13/2018 YARI Joyce Primary YARI K Ritchie [id number] Insurance:ANTHEMPolicy HIBBITTSDOB: [facility] Number: [id number] [id number] Repository [address]Cxc: [phone]) Date:2149-91-65OY [phone] () 443658CLGGNLJ, [place] [address]YN: 11/13/2018 Secondary NOT GIVENUNK Ritchie Insurance:SELF PAY Community INSURANCEPolicy Number: Hospital Effective Repository Date:2018-11-13 11/03/2018 YARI Joyce Primary YARI K Ritchie [id number] Insurance:ANTHEMPolicy HIBBITTSDOB: Community SANZ Number: [id number], [place] [id number] Repository [address]Jap: ([phone]) Date:5071-65-92WI [phone] () TAHIR RASMUSSEN [address]NZ: 11/03/2018 Secondary NOT GIVENUNK Ritchie Insurance:SELF PAY Community INSURANCEPolicy Number: Hospital Effective Repository Date:2018-11-03 10/30/2018 YARI K Primary YARI Joyce Bern [id number] Insurance:ANTHEMPolicy HIBBITTSDOB: Community SANZ Number: [id number], [place] [id number] Repository [address]Gvk: ([phone]) Date:3585-58-16IM [phone] () TAHIR RASMUSSEN [address]84[address]MZ: 10/30/2018 Secondary NOT GIVENUNK Ritchie Insurance:SELF PAY Community INSURANCEPolicy Number: Hospital Effective Repository Date:2018-10-30 10/27/2018 YARI K Primary YARI Joyce Ritchie [id number] Insurance:ANTHEMPolicy HIBBITTSDOB: Community SANZ Number: [id number], [place] [id number] Repository [address]Wog: ([phone]) Date:1216-85-14CU [phone] () TAHIR RASMUSSEN [address]WZ: 10/27/2018 Secondary NOT GIVENUNK [place] Insurance:SELF PAY Community INSURANCEPolicy Number: Hospital Effective Repository Date:2018-10-27 10/27/2018 YARI K Primary YARI Joyce Ritchie [id number] Insurance:ANTHEMPolicy HIBBITTSDOB: Community SANZ Number: [id number], [place] [id number] Repository [address]Vlt: ([phone]) Date:6602-48-43QZ [phone] () TAHIR RASMUSSEN [address]VB: 10/27/2018 Secondary NOT GIVENUNK [place] Insurance:SELF PAY Community INSURANCEPolicy Number: Hospital Effective Repository Date:2018-10-27 10/16/2018 YARI Joyce Primary Insurance:BLUE YARI Gal[facility] HIBBITTSDOB: CARD PPOPolicy Number: HIBBITTSDOB: Health System [id number] Repository SANZ Date: [place], [place] [address]Xew: () 09/16/2018 YARI Joyce Primary YARI Joyce [place] [id number] Insurance:ANTHEMPolicy HIBBITTSDOB: [facility] Number: [id number], [place] [id number] Repository [address]Zym: [phone]) Date:4322-33-72SA [phone] () 845201QMACDNF, [place] [address]PP: 09/16/2018 Secondary NOT GIVENUNK [place] Insurance:SELF PAY Community INSURANCEPolicy Number: Hospital Effective Repository Date:2018-09-16 03/21/2018 YARI Joyce Primary YARI Joyce Ritchie [id number] Insurance:CAREWORKS HIBBITTSDOB: [facility] CONSULTANTSPolicy [id number], [place] Number: Repository [id number]: [phone] [id number] [phone] () Date:6509-19-55FV [address], [place] [address]VL: 03/21/2018 Secondary NOT GIVENUNK Ritchie Insurance:SELF PAY Community INSURANCEPolicy Number: Hospital Effective Repository Date:2018-03-12 03/19/2018 YARI Joyce Primary YARI Joyce [place]itchie [id number] Insurance:CAREWORKS HIBBITTSDOB: [facility] CONSULTANTSPolicy [id number], [place] Number: Repository [id number]: [phone] () Date:4300-79-00YN [address], [place] [address]AT: 03/19/2018 Secondary YARI K Ritchie Insurance:[facility] HIBBITTSDOB: Community CAREWORKSPolicy Number: [id number] Hospital [id number] Repository Date:9657-89-63XV [address]UXZZYLVT, [place] [address]ZL: 03/19/2018 Tertiary Insurance:SELF NOT GIVENUNK Ritchie PAY INSURANCEPolicy Community Number: Effective Hospital Date:2018-03-17 Repository 02/13/2018 YARI K Primary Insurance:BLUE YARI K [facility] HIBBITTSDOB: CARD PPOPolicy Number: HIBBITTSDOB: Health System [id number] Repository [place] Date: [place] [id number]: () 02/12/2018 YARI K Primary YARI K Ritchie [id number] Insurance:CAREWORKS HIBBITTSDOB: [facility] [id number], [place] Number: Repository [id number]: [phone] [id number] [phone] () Date:9790-28-32SP [address]DUFEI [place] [address]JI: 02/12/2018 Secondary NOT GIVENUNK Ritchie Insurance:SELF PAY Community INSURANCEPolicy Number: Hospital Effective Repository Date:2018-02-10 02/10/2018 YARI K Primary Insurance:BLUE YARI [facility] HIBBITTSDOB: CARD PPOPolicy Number: HIBBITTSDOB: Health System [id number] Repository [place] Date: [place], [place] [address]Bug: () 02/07/2018 YARI K Primary YARI K Bern [id number] Insurance:CAREWORKS HIBBITTSDOB: [facility] [id number] Number: Repository [id number]: [phone] [id number] [phone] () Date:4678-02-00PE [address]DUFEI [place] [address]KW: 02/07/2018 Secondary NOT GIVENUNK Ritchie Insurance:SELF PAY Community INSURANCEPolicy Number: Hospital Effective Repository Date:2018-02-07
== END ==
PROVIDERS: Family Provider Family Medicine; PCP Family Medicine; Referring Provider Family Medicine; Visit Provider Family Medicine
DX: Z00.00 Encounter for general adult medical examination without abnormal findings (principal)
CPT/HCPCS: 36415; 80048; 80061; 82306; 84153; G0103

== ENCOUNTER → 2019-04-16 | Outpatient (CLI) | payer BC, SELFPAY ==
[2018-11-13 11:39] VITALS: BMI 32.1
[2019-04-16 17:42] LABS: AST(SGOT) 16 U/L (15-37); Alanine Aminotransfer ALT/SGPT 31 U/L (16-61); Albumin, Serum 3.9 g/dL (3.2-5.0); Alkaline Phosphatase 81 U/L (45-117); Anion Gap 9 (5-15); BUN 10 mg/dL (7-18); BUN/Creat Ratio 9.9 RATIO (10-20); Bilirubin, Direct 0.12 mg/dL (0.00-0.30); Chloride 106 mmol/L (98-107); Cholesterol 145 mg/dL (200); Creatinine, Serum 1.01 mg/dL (0.70-1.30); Globulin 3.5 g/dL (2.2-4.2); Glucose 82 mg/dL (74-106); High Density Lipoprotein 40 mg/dL; Potassium 4.3 mmol/L (3.5-5.1); Protein, Total 7.4 g/dL (6.4-8.2); Sodium Level 140 mmol/L (136-145); Triglycerides 183 mg/dL; Very Low Density Lipoprotein 37 mg/dL (5-40)
[2019-04-16 18:39] LABS: Vitamin D,25 Hydroxy 32.7 ng/mL (29.95-100.01)
== END | disposition home or self-care (01) ==
PROVIDERS: Family Provider Family Medicine; PCP Family Medicine; Referring Provider Family Medicine; Visit Provider Family Medicine
DX: I25.10 Atherosclerotic heart disease of native coronary artery without angina pectoris (principal); E55.9 Vitamin D deficiency, unspecified
CPT/HCPCS: 36415; 80047; 80061; 80076; 82306

== ENCOUNTER → 2019-10-21 16:16 | Outpatient (CLI) | payer BC, SELFPAY ==
[2018-11-13 11:39] VITALS: BMI 32.1
[2019-10-21 18:17] LABS: Vitamin D,25 Hydroxy 41.4 ng/mL (29.95-100.01)
== END ==
PROVIDERS: Family Provider Family Medicine; PCP Family Medicine; Referring Provider Family Medicine; Visit Provider Family Medicine
DX: E55.9 Vitamin D deficiency, unspecified (principal)
CPT/HCPCS: 36415; 82306

== ENCOUNTER 2019-12-05 14:35 | Emergency (ER) | payer BC, SELFPAY ==
[2019-11-25 14:30] VITALS: BMI 29.6
[2019-12-05 14:35] VITALS: BP 153/93; PULSE 85; RESP 12; TEMP 36.7; O2SAT 97; BMI 31.8
--- NOTE | 2019-12-05 14:55 | EKG12_ITS ---
Test Reason : CP Blood Pressure : / mmHG Vent. Rate : 090 BPM Atrial Rate : 090 BPM P-R Int : 182 ms QRS Dur : 110 ms QT Int : 358 ms P-R-T Axes : 061 001 051 degrees QTc Int : 437 ms Normal sinus rhythm Incomplete right bundle branch block Borderline ECG Confirmed by LUIS STUBBS, ELBA ([id number]), case briefer DANE OCONNELL ([id number]) on 12/08/2019 9:58:12 AM Referred By: CLEMENTE Confirmed By:ELBA SMITH MD
[2019-12-05 15:13] LABS: Absolute Lymphocyte Count 2.45 X10^3/uL (0.83-4.51); Absolute Neutrophil Count 6.6 X10^3/uL (2.0-7.7); Basophil# 0.07 X10^3/uL; Basophil% 0.7 % (0-1); Eosinophil# 0.25 X10^3/uL; Eosinophils% 2.5 % (0-5); Hematocrit 45.1 % (40-54); Hemoglobin 15.2 g/dL (13.0-16.5); Lymphocyte # 2.45 X10^3/ul (4.0); Lymphocyte % 24.6 % (19-41); Mean Corp Hgb Conc 33.7 g/dL (32-36); Mean Corpuscular Hgb 31.2 pg (27.0-32.0); Mean Corpuscular Volume 92.6 fL (80-94); Mean Platelet Vol. 10.2 fl (6.2-12.0); Monocyte# 0.56 X10^3/uL; Monocyte% 5.6 % (0-10); NRBC Flagged by Analyzer 0 % (0-5); Neutrophil # 6.58 X10^3/uL (2.7-7.7); Neutrophil % 66.3 % (47-70); Platelet Count 240 K/mm3 (150-450); RBC Distribution Width SD 47.9 fl (35.1-43.9); Red Blood Count 4.87 M/mm3 (4.6-6.2); White Blood Count 9.9 K/mm3 (4.4-11.0)
--- NOTE | 2019-12-05 15:15 | RAD_ITS ---
STUDY: X-RAY CHEST REASON FOR EXAM: Male, 64 years old. Chest pain TECHNIQUE: Frontal view of the chest COMPARISON: 09/16/2018 FINDINGS: There are stable chronic increased interstitial markings. The lungs are otherwise clear. There are no pleural effusions. There is no pneumothorax. The heart is normal in size. The visualized osseous structures are within normal limits. RAD/Chest 1 View (Portable) IMPRESSION: No acute thoracic pathology. Electronically Signed: Clarence Baeza, at 15:41 EST Tel , Service support ,
[2019-12-05] MEDS: Aspirin 81 MG TAB.CHEW 324 MG PO (15:29)
[2019-12-05 15:30] VITALS: BP 126/85; PULSE 89; RESP 16; O2SAT 94; O2SAT 95
[2019-12-05 15:33] LABS: Anion Gap 3 (5-15); BUN 13 mg/dL (7-18); BUN/Creat Ratio 9.8 RATIO (10-20); Calcium,Total 9.6 mg/dL (8.5-10.1); Chloride 107 mmol/L (98-107); Creatinine, Serum 1.32 mg/dL (0.70-1.30); EST Glomerular Filtration Rate 58 mL/min (>60); Est Glom Filt Rate - Afr Amer 70 mL/min (>60); Estimated Creatinine Clearance 62.87 ml/min; Glucose 100 mg/dL (74-106); Sodium Level 141 mmol/L (136-145)
--- NOTE | 2019-12-05 15:36 | ED.VISSUMM ---
- ER Visit Summary Date of Service: 12/05/19 Chief Complaint: Chest pain History of Present Illness: The patient is a 64 M who presents with chest pain that has been constant for the past week. Patient describes the pain is dull and aching. Patient states the pain is worse with deep breathing. Patient states the pain started in the left sub-parasternal area but is now over the substernal area. Patient states nothing seems to make it better. Patient admits to a cough but denies any sputum production. Patient denies any fevers or chills. Patient denies any nausea or vomiting. Patient denies any diaphoresis or shortness of breath. Patient denies any palpitations. Patient's cardiac risk factors include hypertension, hypercholesterolemia, family history of coronary artery disease, and smoking. Physical Examination: Vital signs are stable. Patient is afebrile. Patient is in no acute distress. Oral mucosa is pink and moist. Neck is supple. Trachea is midline. There is no JVD noted. Heart was regular rate and rhythm. Lungs are clear and equal bilaterally. Abdomen is soft. Bowel sounds are normal. There is no tenderness. There is no rebound or guarding noted. Skin is warm dry. Cranial nerves II through XII are intact. There are no focal motor or sensory deficits noted. Extremities are intact. There is no calf tenderness or edema. Test Results: EKG showed normal sinus rhythm with a rate of 90. There is incomplete right bundle branch block. There are no acute ST or T wave changes. This was unchanged compared to previous EKG dated 11/25/2019. CBC and basic metabolic profile were obtained and were essentially within normal limits. Creatinine was slightly elevated at 1.32. Troponin was normal. Portable chest x-ray was obtained. There is no acute cardiopulmonary process. This was interpreted by the radiologist and myself. Emergency Department Course and Treatment: Patient was feeling better on reevaluation. Patient was advised of his results. Since the patient has had symptoms for over a week and his troponin and EKG are normal, I do not feel this is cardiac related. Patient was given a prescription for Zyrtec-D to take as needed for upper respiratory drainage and congestion. Patient was instructed to return if worse in any way. Patient was instructed to follow-up with his primary care physician in 3 to 5 days. Patient understood and was agreeable with the plan. All questions were answered. Disposition: Discharge home Impression: Chest pain This note was generated with [employer] dictation software. It may contain incorrect words, spelling, and punctuation that were not noted in review of the chart prior to signing ED Disposition - Plan for ED Patient: Disposition: Home or Assisted Living Diagnosis: Chest pain Instructions: CHEST PAIN, Uncertain Cause Prescriptions: Cetirizine HCl/Pseudoephedrine [Zyrtec-D Tablet] 1 ea PO BID PRN PRN #[id number].[id number] PRN Reason: Congestion Prescription Printed Referrals: Gianfranco West MD [Primary Care Provider] - 3-5 Days
[2019-12-05 16:07] VITALS: BP 121/72; PULSE 80; RESP 16; O2SAT 98
== END 2019-12-05 16:08 | disposition home or self-care (01) ==
PROVIDERS: Emergency Provider Emergency Medicine; PCP Family Medicine
DX: R07.89 Other chest pain (principal); J34.89 Other specified disorders of nose and nasal sinuses; R05 Cough; I45.10 Unspecified right bundle-branch block; I10 Essential (primary) hypertension; E78.00 Pure hypercholesterolemia, unspecified; Z79.82 Long term (current) use of aspirin; Z79.899 Other long term (current) drug therapy; F17.200 Nicotine dependence, unspecified, uncomplicated
CPT/HCPCS: 71045; 80048; 84484; 85025; 93005; 99285

== ENCOUNTER → 2019-12-28 05:46 | Outpatient (CLI) | payer BC, SELFPAY ==
[2019-12-05 14:35] VITALS: BMI 31.8
--- NOTE | 2019-12-28 08:50 | STRESSREP_ITS ---
Stress Test Report Exercise myocardial perfusion stress test. 64-year-old man with a history of known coronary artery disease. Medications: Losartan, pravastatin. Stress protocol: Resting EKG demonstrates sinus rhythm with a rate of 62 bpm normal intervals are noted resting blood pressure is 122/80 mmHg. A right bundle branch block is noted. The patient exercised according to the regular Maurice protocol for total duration of 7 minutes completing 1 minute into stage III of the Maurice protocol. The maximum heart rate attained was 141 bpm which was 89% of maximal predicted heart rate the maximum workload was 8.5 metabolic equivalents. The patient maintained sinus rhythm throughout the recording. At rest no ST or T wave changes were noted suggest resting ischemia right bundle branch block was noted at peak exercise similar pattern was noted with no evidence of ischemia. The resting blood pressure was 122/80 with a peak blood pressure 190/88 rate- pressure product was 24,500. Patient developed some shortness of breath the test was terminated due to the target heart rate being achieved and dyspnea. Myocardial perfusion protocol. 11.4 mCi of technetium 99m sestamibi was injected at rest. The patient exercised according to regular Maurice protocol for 7 minutes and at peak exercise 36.0 mCi of technetium 99m sestamibi was injected stress images were obtained stress and rest images were reconstructed and compared in the short axis vertical long horizontal long axis. Gated images were also obtained per Perfusion SPECT analysis: Review of the stress images demonstrate normal uptake of tracer noted in the septum anterior wall and lateral wall. The mid inferior wall has a medium zone with reduced perfusion which appears to improve on the resting images suggesting a mild to moderate amount of ischemia in a medium size zone. Gated SPECT analysis: The gated ejection fraction was noted to be 68%. Conclusion: Abnormal exercise myocardial perfusion stress test at a moderate workload. Mid inferior ischemia noted.
== END ==
PROVIDERS: PCP Family Medicine; Referring Provider Family Medicine; Visit Provider Family Medicine
DX: I10 Essential (primary) hypertension (principal); I25.10 Atherosclerotic heart disease of native coronary artery without angina pectoris; R07.9 Chest pain, unspecified
CPT/HCPCS: 78452; 93017; A9500; A4216

== ENCOUNTER 2019-12-31 06:52 | Day surgery (SDC) | payer BC, SELFPAY ==
[2019-12-30 07:33] VITALS: BMI 29.5
--- NOTE | 2019-12-31 08:28 | PCM.HP.BLA ---
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 He has a history of hyperlipidemia, hypertension, and CAD. As you recall, he has previously been followed by cardiology in [place], [place] as well as [facility] cardiology in [place], [place]. He states many years ago, during an illness with respect to pneumonia, he underwent a diagnostic cardiac catheterization at [facility] in [place], [place]. To the best of his knowledge she had some element of underlying CAD but not significant and did not require any form of intervention. Patient was seen in [facility] [place] emergency department 12/05/2019 for chest pain. His EKG showed sinus rhythm at a rate of 90 bpm and was negative for acute ST or T wave changes. His troponin was negative. He was discharged to follow-up with primary care physician. He then proceeded to undergo a stress test on 12/28/2019 that was considered to be abnormal. Thus, he presents today for a heart catheterization to evaluate further. He denies chest, arm, jaw, or neck discomfort. His exercise tolerance is stable. He denies symptoms of CHF, palpitations, lightheadedness, dizziness, near syncope, or syncopal episodes. He denies edema or claudication issues. He denies orthopnea, PND, fever, chills, blood in urine, blood in stool, or myalgia. He does acknowledge elements of fatigue. 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 Required: No Accompanied by: Self Allergies Penicillins Allergy (Verified 11/25/19 14:31) Swelling Medications See EMR [facility] Medical History Essential hypertension (Chronic) Atherosclerotic heart disease of [place] coronary artery without angina pectoris (Chronic) Tobacco abuse (Chronic) Hyperlipemia (Chronic) IBS (irritable bowel syndrome) (Chronic) Surgical History History of foot surgery (Resolved) History of hernia repair (Resolved) Family History Father Heart disease Mother Heart disease Social History (Updated 11/25/19 @ 14:58 by Gianfranco Wells MD) Smoking Status: Current every day smoker alcohol intake: current details: daily substance use type: does not use ROS Const Const: Positive for fatigue; negative for weakness, frequent falls, excessive sweating, weight gain or weight loss Eyes Eyes: Negative for transient loss of vision, blurry vision or change in vision ENT ENT: Negative for dizziness (HX vertigo); negative for balance problems Cardio Chest Pain: No Palpitations: No Edema: None Muscle aches with walking: None Resp Respiratory: Negative for Cough; negative for SOB with activity or SOB at rest GI GI: Negative vomiting or vomiting blood/hematemesis : Negative for hematuria Musc Musc: Positive for joint pain (rt knee); negative for muscle aches/ myalgia, muscle weakness or balance problems Skin Skin: Negative non-healing lesions or rash Neuro Neuro: Negative for dizziness (HX vertigo) and vertigo (HX); negative for lightheadedness, orthostatic symptoms, frequent falls, weakness or blurry vision [place] Hematologic/Lymphatic: Negative for easy bleeding Endo Endo: Positive for fatigue; negative for excessive sweating Psych Psych: Negative for anxiety or depression Allergy Allergy/Immunology: Negative for hives, Negative for rash Cardiology Exam Const Appearance: cooperative, healthy appearing, comfortable, no acute distress, well developed and well groomed Nutritional Appearance: underweight Orientation: alert, awake and oriented x3 Head Head: normal to inspection, normocephalic and atraumatic Ears: hearing grossly normal bilaterally Nose: external nose normal Face and Sinus: face symmetric Mouth: oral mucosae normal Teeth and gingiva: fair dentition Eyes Eyelids: eyelids normal Conjunctivae: conjunctivae normal Pupils: PERRL EOM: EOM intact bilaterally Neck Neck: normal visual inspection and full ROM Carotids: normal carotid upstroke Chest Chest inspection: normal inspection of the chest, symmetric chest movement and normal respiratory effort Auscultation: Bilateral: Clear to Auscultation Cardio Palpation: normal PMI Rhythm: regular rhythm Heart sounds: S1 normal and S2 normal GI GI: normal to inspection, soft and bowel sounds present Neuro General: alert, awake, oriented x3, moves all extremities, no focal sensory deficit and no focal motor deficits Skin Skin: no rashes or lesions noted Extremities Pulses: Normal: Right Radial Pulse, Left Radial Pulse Lower Extremity Edema: None: Bilateral Psych Psychological: normal affect Assessment & Plan 1. Atherosclerosis of [place] coronary artery of [place] heart without angina pectoris I25.10 Moderate per cath 2006 Plan Due to his abnormal stress test, he will proceed with heart catheterization. Based on results, further recommendation will be made. 2. Hyperlipidemia, unspecified hyperlipidemia type E78.5 Plan He will continue current statin medication. 3. Essential hypertension I10 Plan Patient's blood pressure is well-controlled. We will continue to monitor. We will not make any medication regimen changes. Thank you for allowing us to participate in the patients plan of care, if you have any questions please do not hesitate to call. This note was generated using a voice recognition system and there may be incorrect words, spelling or punctuation that were not noted when reviewing the office note prior to saving. Supplemental Info Supplemental Information Nuclear stress test from 12/28/2019: Conclusion: Abnormal exercise myocardial perfusion stress test at a moderate workload. Mid inferior ischemia noted.
--- NOTE | 2019-12-31 10:46 | CL.D_ITS ---
Patient Name: YARI NAVA Study Date: 12/31/2019 Performing: Fransisco He MD Ht: 72 inches 183 cm : 1955 Wt: 218.5 lbs 99 kg Age: 64 Gender: male BSA: 2.21 PROCEDURE(S) PERFORMED AI97-PAY/COR/LV CLINICAL PROFILE AND INDICATIONS Indications: Suspected CAD Heart Failure: None Stress/Imaging Date: 12/28/2019Stress Test with SPECT MPI: Positive Intermediate Risk CAD Presentations: Stable angina. CONCLUSIONS Triple-vessel disease with unclear significance of the left anterior descending artery lesion. Moder ately severe disease noted of the circumflex artery lesion and a focal high-grade stenosis noted of t he right coronary artery. RECOMMENDATIONS Staged for FFR Recommended FFR or IFR to the LAD. 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 The risks and benefits of the procedure as well as a full d escription of our services here and current unavailability of surgical backup were fully explained to the patient and/or their significant other prior to the catheterization. The Timeout was completed, verifying the correct patient and procedure. The patient's procedural site was prepped and draped in the usual fashion. Local anesthetic was given subcutaneously to right radial region with Lidocaine 2% . Using a modified Seldinger technique, arterial access was obtained via the right radial artery, a 6 Fr sheath was inserted. Left Coronary Artery selective angiography was performed in multiple views u sing a 5 Fr. 4.0 [place] catheter. Right Coronary Artery selective angiography was then performed in mu ltiple views using a 5 Fr. 4.0 [place] catheter. Left Coronary Artery selective angiography was perform ed in multiple views using a 5 Fr. JL3.5 catheter. Left Ventriculography was performed in DEY projection using a 5 Fr. Pigtail catheter. LV to AO pullback pressures were then recorded.The art erial sheath was pulled and a TR Band was applied for hemostasis CORONARY ANGIOGRAPHY DOMINANCE: Right Dominant LEFT HEART ASSESSMENT Left Ventricular Ejection Fraction: by LV Gram 60 % Normal LV wall motion Normal Left Ventricular systolic function LEFT MAIN: Mild calcification, Non-obstructive LEFT ANTERIOR DESCENDING ARTERY: PROX LAD: Diffusely diseased up to 75 %, There is an area of aneurysmal dilatation at the takeoff of a large diagonal vessel CIRCUMFLEX ARTERY: MID CIRC: 75 % Stenosis OM 1: Ostial - 75 % Stenosis RIGHT CORONARY ARTERY: Mild luminal irregularities less than 30% RT PDA: Mid - 80 % Stenosis COMPLICATIONS No Complications PROCEDURE MEDICATIONS Versed 1 mg IV Fentanyl 50 mcg IV Versed 1 mg IV Oxygen: 2 L/min via nasal cannula Adenosine drip for FFR 27.2 ml IV @ 12/31/2019 08:40:12 Heparin diluted in 23cc Heparinized saline. Patient given 10cc IA of this solution. 12/31/2019 08:09: 31 Heparin 6000 unit(s) IV 12/31/2019 08:33:38 Verapamil 2.5mg, Ntg 100mcgs, 2000 units of Heparin diluted in 23cc Heparinized saline. Patient give n 10cc IA of this solution. 12/31/2019 08:09:31 SUMMARY OF HEMODYNAMIC DATA Time AIR REST ECG 07:10:02 AO 109/73 (89) SA 08:09:12 LV 102/5, 12 08:21:57 LV 114/4, 10 08:22:03 LV 122/10, 13 08:22:47 LVp 108/7, 13 08:22:55 AOp 114/64 (87) 08:23:00 Signed By Fransisco He MD On 12/31/2019 10:45:58 AM Fransisco He MD
--- NOTE | 2019-12-31 18:01 | CL.I_ITS ---
Patient Name: YARI NAVA Study Date: 12/31/2019 Performing: Griselda Choudhury MD Ht: 72.05 inches 183 cm : 1955 Wt: 218.26 lbs 99 kg Age: 64 Gender: male BSA: 2.21 PROCEDURE(S) PERFORMED SH11-FXT, CORONARY OR GRAFT, INITIAL VESSEL CLINICAL PROFILE AND CO-MORBIDITIES Indications: Suspected CAD Heart Failure: None Stress/Imaging Date: 12/28/2019 Stress Test with SPECT MPI: Positive Intermediate Risk CAD Presentations: Stable angina. CONCLUSIONS RECOMMENDATIONS DESCRIPTION OF PROCEDURE The patient arrived to the procedure lab. The risks and benefits of the procedure as well as a full d escription of our services here and current unavailability of surgical backup were fully explained to the patient and/or their significant other prior to the catheterization. The Timeout was completed, verifying the correct patient and procedure. The patient's procedural site was prepped and draped in the usual fashion. Local anesthetic was given subcutaneously to right radial region with Lidocaine 2% Using a modified Seldinger technique,arterial access was obtained via the right radial artery, a 6Fr sheath was inserted. Left Coronary Artery selective angiography was performed in multiple views usin g a 5 Fr. 4.0 [place] catheter. Right Coronary Artery selective angiography was then performed in multi ple views using a 5 Fr. 4.0 [place] catheter. Left Coronary Artery selective angiography was performed in multiple views using a 5 Fr. JL3.5 catheter. Left Ventriculography was performed in DEY projection using a 5 Fr. Pigtail catheter. LV to AO pullback pressures were then recorded. XB 3.5 Guide catheter was inserted and engaged into the LCA. The FFR/iFR wire was inserted. Adeno sine was then given per protocol. Pressures and FFR/iFR were then recorded. FFR Ratio Baseline: 0.92 FFR Ratio post Adenosine: 0.77 The FFR/iFR wire was then removed. The arterial sheath was pulled an d a TR Band was applied for hemostasis INTERVENTION INFORMATION LESION SITE: LAD (Mid) PROCEDURE: FFR. FFR in the LAD was 0.77 which is consistent with significant stenoses Lesion Devices: meets Devices ( [employer]) Coronary FFR Wire COMPLICATIONS No Complications PROCEDURE MEDICATIONS Versed 1 mg IV Fentanyl 50 mcg IV Versed 1 mg IV Oxygen: 2 L/min via nasal cannula Adenosine drip for FFR 27.2 ml IV @ 12/31/2019 08:40:12 Heparin diluted in 23cc Heparinized saline. Patient given 10cc IA of this solution. 12/31/2019 08:09: 31 Heparin 6000 unit(s) IV 12/31/2019 08:33:38 Verapamil 2.5mg, Ntg 100mcgs, 2000 units of Heparin diluted in 23cc Heparinized saline. Patient give n 10cc IA of this solution. 12/31/2019 08:09:31 SUMMARY OF HEMODYNAMIC DATA Time AIR REST ECG 07:10:02 AO 109/73 (89) SA 08:09:12 LV 102/5, 12 08:21:57 LV 114/4, 10 08:22:03 LV 122/10, 13 08:22:47 LVp 108/7, 13 08:22:55 AOp 114/64 (87) 08:23:00 Signed By Griselda Choudhury MD On 12/31/2019 6:00:38 PM Griselda Choudhury MD
== END 2019-12-31 10:45 | disposition home or self-care (01) ==
LOC: CLSP 06:54
PROVIDERS: PCP Family Medicine; Visit Provider Internal Medicine Cardiovascular Disease
DX: I25.118 Atherosclerotic heart disease of native coronary artery with other forms of angina pectoris (principal); I10 Essential (primary) hypertension; E78.5 Hyperlipidemia, unspecified; F17.200 Nicotine dependence, unspecified, uncomplicated; R94.39 Abnormal result of other cardiovascular function study; K58.9 Irritable bowel syndrome, unspecified; Z79.899 Other long term (current) drug therapy; Z79.02 Long term (current) use of antithrombotics/antiplatelets; Z79.82 Long term (current) use of aspirin
CPT/HCPCS: 93458; 93571; 99152; 99153; J0153; J7040; C1769; C1887; C1894; Q9967

== ENCOUNTER 2020-01-15 23:12 | Emergency (ER) | payer BC, SELFPAY ==
[2019-12-30 07:33] VITALS: BMI 29.5
[2020-01-15 23:13] VITALS: BP 154/79; PULSE 86; RESP 18; TEMP 36.3; O2SAT 98; BMI 30.2
--- NOTE | 2020-01-15 23:37 | CT_ITS ---
STUDY: CT CERVICAL SPINE WITHOUT CONTRAST REASON FOR EXAM: Male, 64 years old. ARM WEAKNESS SINCE YESTERDAY. RADIATION DOSAGE (If Supplied By Facility): CTDIvol = ( 21.40 ) mGy, DLP = ( 519.70 ) mGycm TECHNIQUE: High resolution transaxial imaging was performed without contrast material. Sagittal and coronal images were reconstructed. Individualized dose optimization techniques were used for this CT. COMPARISON: None FINDINGS: Normal craniovertebral junction. Normal anterior atlantoaxial articulation. Normal odontoid process. There is straightening of the normal cervical lordosis. Multilevel spondylosis with narrowing of disc spaces, otherwise normal vertebral bodies and posterior osseous elements. C2-3: Mild endplate spondylosis. Normal disc height and morphology. Normal central canal and intervertebral neuroforamina. C3-4: Endplate spondylosis with narrowing of disc space. Uncovertebral disease and bilateral apophyseal hypertrophy. Mild bilateral foraminal encroachment. No central canal stenosis. C4-5: Endplate spondylosis with narrowing of disc space. Uncovertebral disease and bilateral apophyseal hypertrophy. Mild bilateral foraminal encroachment. No central canal stenosis. C5-6: Endplate spondylosis with narrowing of disc space. Moderate uncovertebral disease and bilateral apophyseal hypertrophy. Moderate bilateral foraminal encroachment. No central canal stenosis. C6-7: Endplate spondylosis with narrowing of disc spaces. Moderate uncovertebral disease. No central canal stenosis. Mild bilateral foraminal encroachment. C7-T1: Normal endplates. Normal disc height and morphology. Normal central canal and intervertebral neuroforamina. Calcified atherosclerotic disease of aorta. CT/Spine Cervical without Contras IMPRESSION: Degenerative disease as described. No acute fracture or subluxation. Electronically Signed: Penelope Muñoz MD at 0:44 EST , Service support ,
[2020-01-15 23:57] LABS: Absolute Neutrophil Count 5.8 X10^3/uL (2.0-7.7); Basophil# 0.08 X10^3/uL; Basophil% 0.9 % (0-1); Eosinophil# 0.53 X10^3/uL; Eosinophils% 5.8 % (0-5); Hemoglobin 13.6 g/dL (13.0-16.5); Lymphocyte % 20.9 % (19-41); Mean Corpuscular Hgb 31.6 pg (27.0-32.0); Mean Corpuscular Volume 92.8 fL (80-94); Monocyte# 0.74 X10^3/uL; Monocyte% 8.1 % (0-10); NRBC Flagged by Analyzer 0 % (0-5); Neutrophil # 5.83 X10^3/uL (2.7-7.7); Platelet Count 244 K/mm3 (150-450); RBC Distribution Width CV 14.2 % (11.6-14.6); RBC Distribution Width SD 48.1 fl (35.1-43.9); Red Blood Count 4.31 M/mm3 (4.6-6.2); White Blood Count 9.1 K/mm3 (4.4-11.0)
--- NOTE | 2020-01-15 23:59 | RAD_ITS ---
STUDY: X-RAY - LEFT KNEE REASON FOR EXAM: Male, 64 years old. PT STATES THAT ANTERIOR LT KNEE PAIN STARTED TODAY, NO KNOWN INJURY TECHNIQUE: 4 view(s) of the knee. COMPARISON: None. FINDINGS: Normal visualized distal femur. Normal visualized proximal tibia and fibula. Normal proximal tibiofibular articulation. There is no demonstrated fracture. There is mild degenerative arthrosis of the medial femorotibial compartment. Normal lateral femorotibial compartment. There is moderate to severe degenerative arthrosis of the medial patellofemoral articulation. There is no demonstrated joint effusion. The soft tissue structures are unremarkable. RAD/Knee 4 or More Views IMPRESSION: Degenerative arthrosis. Electronically Signed: Penelope Muñoz MD at 0:23 EST , Service support ,
--- NOTE | 2020-01-15 23:59 | RAD_ITS ---
STUDY: X-RAY - PELVIS AND RIGHT HIP REASON FOR EXAM: Male, 64 years old. PT STATES THAT RT HIP PAIN STARTED TODAY, NO KNOWN INJURY TECHNIQUE: 3 views of the pelvis and hip. COMPARISON: None. FINDINGS: There is a non-specific bowel gas pattern. Normal visualized soft tissue structures. There is narrowing with cortical sclerosis and osteophyte formation of the sacroiliac joint consistent with degenerative osteoarthritic changes. Normal bilateral superior and inferior pubic rami. There are degenerative changes of the pubic symphysis with articular narrowing and sclerosis. Normal bilateral ischial tuberosities. Normal visualized femoral head. There is osteoarthritic spur formation of the acetabular rim. There is moderate articular joint space narrowing of the hip. RAD/HIP, UNI W/ Pelvis 2-3 Views IMPRESSION: Degenerative disease as described, otherwise unremarkable x-ray examination of the pelvis and hip. Electronically Signed: Penelope Muñoz MD at 0:21 EST , Service support ,
[2020-01-16 00:12] LABS: AST(SGOT) 12 U/L (15-37); Alanine Aminotransfer ALT/SGPT 26 U/L (16-61); Albumin, Serum 3.7 g/dL (3.2-5.0); Alkaline Phosphatase 90 U/L (45-117); Anion Gap 6 (5-15); BUN 16 mg/dL (7-18); BUN/Creat Ratio 13.4 RATIO (10-20); Calcium,Total 9.2 mg/dL (8.5-10.1); Chloride 107 mmol/L (98-107); Creatinine, Serum 1.19 mg/dL (0.70-1.30); EST Glomerular Filtration Rate 66 mL/min (>60); Est Glom Filt Rate - Afr Amer 79 mL/min (>60); Estimated Creatinine Clearance 69.74 ml/min; Globulin 3.7 g/dL (2.2-4.2); Glucose 142 mg/dL (74-106); Potassium 3.9 mmol/L (3.5-5.1); Protein, Total 7.4 g/dL (6.4-8.2); Sodium Level 138 mmol/L (136-145)
[2020-01-16 01:12] VITALS: BP 142/84; PULSE 79; RESP 16; O2SAT 95
[2020-01-16 01:17] VITALS: BP 142/84; PULSE 79; RESP 16; O2SAT 95
--- NOTE | 2020-01-16 01:20 | ED.VIS.GEN ---
History of Present Illness Chief Complaint: Weakness Narrative: Patient presenting for evaluation secondary to pain and weakness of his hands bilaterally. Patient has a recent history of a admission for chest pain that resulted in cardiac catheterization through his right wrist and identification of triple-vessel disease. Patient is pending a coronary artery bypass graft. Patient states that over the course of about the last week he has been noticing that he has left knee pain and right groin pain. This was atraumatic in onset, is intermittent, is worse with movement. Patient states that yesterday he noted that he had some right hand pain and weakness. He thought the potentially he had slept wrong on his hand, so he brushed it off. 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 Patient denies any headaches or neck pain. Patient denies that he is had recent infectious signs or symptoms such as fever cough sore throat nausea or vomiting. He denies any lower extremity weakness. He denies any facial weakness or speech difficulty associated with this. He is never had any prior similar episodes in the past. Patient is concerned because about 3 weeks ago he was started on isosorbide and Wellbutrin and has never been on those medications before. Review of systems otherwise negative. Past Medical History - Allergies and Home Meds Allergies/Adverse Reactions: Allergies Penicillins Allergy (Verified 01/15/20 23:12) Swelling Primary Care Physician: Gianfranco West MD [Primary Care Provider] - Past Medical History: - - Coronary artery disease Smoking Status: Current every day smoker Review of Systems All systems negative except as indicated General: Denies: Chills, Fever, Sweats Eyes: Denies: Visual changes - bilaterally, Diplopia ENT: Denies: Rhinorrhea, Sore throat Cardiovascular: Reports: Chest pain Respiratory: Denies: Dyspnea, Cough, Dyspnea on exertion Gastrointestinal: Denies: Abdominal pain, Nausea, Vomiting, Diarrhea, Melena, Hematochezia Genitourinary: Denies: Dysuria, Hematuria, Frequency Musculoskeletal: Denies: Back pain, Extremity Pain Skin: Denies: Rash, Wounds Neurological: Reports: Weakness, Parasthesia. Denies: Headache Physical Exam Vital Signs/Narrative: Vital Signs Temp Pulse Resp BP Pulse Ox 01/16/20 01:17 79 16 142/84 H 95 01/16/20 01:12 79 16 142/84 H 95 01/15/20 23:13 97.4 F L 86 18 154/79 H 98 Inital Vital Signs reviewed: Yes General: Well nourished, Well developed, No Acute Distress Head: Normocephalic, Atraumatic Eyes: Perrl, EOMI ENT: Moist mucous membranes, No rhinorrhea Neck: Supple, Nontender, - - No carotid bruits are noted Cardiovascular: Regular rate, Regular rhythm, No murmurs, - - 2+ radial and 2+ ulnar pulses bilaterally symmetric with normal capillary refill of both hands Respiratory: No distress, CTA bilaterally, Chest nontender Abdomen: Soft, Nontender, Nondistended, Normal bowel sounds Back: Nontender, Normal Inspection Extremities: - - Patient has 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 He has normal extension of the fingers and normal abduction and adduction of the fingers. Normal flexion and extension at the wrist flexion extension at the elbow and shoulder testing. Patient has pain with gripping of his hands, no evidence of skin changes. He has normal circulation. He has 2+ brachioradialis biceps and triceps reflexes bilaterally. Patient complains of pain with palpation of his right groin with no palpable cord or masses or any evidence of hernia with Valsalva. There is a minimal amount of swelling of the left knee with no evidence of overlying erythema or warmth or skin changes. No crepitus with range of motion. 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 CT imaging of the cervical spine shows degenerative changes. Hip x-ray and knee x-ray also showed degenerative changes per radiology review. CBC and chemistry magnesium and phosphate were obtained and were also found to be within normal limits. I considered the possibility of vascular compromise or dissection and the patient this seems unlikely given the lack of neck pain or headache, and the bilateral symptoms. I considered the possibility of transverse myelitis multiple sclerosis Ricky Ren?, but again this seems unlikely. This is not from electrolyte dyscrasias that testing was found to be negative. Patient does not seem to have any sort of arterial compromise, and the bilateral symptoms again point away from the possibility of a central process such as stroke. Likewise this also does not seem to be from the patient's new medications. Patient likely at this point has a peripheral neuropathy as it is bilateral and associated with pain. Patient will be placed in cock-up wrist splints. He was given reassurance. Patient understands signs and symptoms which to return. He will follow-up with primary care for this. All questions were answered and the patient was discharged. ED Disposition - Plan for ED Patient: Disposition: Home or Assisted Living Diagnosis: Peripheral neuropathy Instructions: WEAKNESS, Unk Cause, NEUROPATHY, Peripheral Referrals: Gianfranco West MD [Primary Care Provider] - 1 Week
== END 2020-01-16 01:29 | disposition home or self-care (01) ==
PROVIDERS: Emergency Provider Emergency Medicine; PCP Family Medicine
DX: G62.9 Polyneuropathy, unspecified (principal); I25.10 Atherosclerotic heart disease of native coronary artery without angina pectoris; Z72.0 Tobacco use; Z79.82 Long term (current) use of aspirin
CPT/HCPCS: 72125; 73502; 73564; 80053; 83735; 84100; 85025; 99285; A4216

== ENCOUNTER 2020-02-20 04:33 | Emergency (ER) | payer BC, SELFPAY ==
[2020-02-20 04:34] VITALS: BP 139/81; PULSE 75; RESP 12; TEMP 36.7; O2SAT 98; BMI 31.9
--- NOTE | 2020-02-20 04:37 | EKG12_ITS ---
Test Reason : CHEST PAIN Blood Pressure : / mmHG Vent. Rate : 071 BPM Atrial Rate : 071 BPM P-R Int : 182 ms QRS Dur : 120 ms QT Int : 400 ms P-R-T Axes : 057 -28 031 degrees QTc Int : 434 ms Normal sinus rhythm Right bundle branch block Abnormal ECG Confirmed by BERTIN STUBBS, KILO ([id number]), research editor ELEONORA CHRISTIE ([id number]) on 02/23/2020 2:23:45 PM Referred By: JUSTIN Confirmed By:TAQUERIA DENTNO MD
--- NOTE | 2020-02-20 04:39 | ED.VIS.GEN ---
History of Present Illness Chief Complaint: Chest Pain Informant: Patient Onset: Today Context: Sudden Onset Timing: Continuous Current Severity: Moderate Maximum Severity: Moderate Narrative: The patient is a 64-year-old male with recently documented coronary vascular disease who is actually scheduled for cardiac bypass surgery on February 22 which had to be postponed who presents to the emergency department with chest pain. Patient states it woke him from sleep. He describes it as bandlike pain across his chest. He also feels mildly short of breath. He denies any fevers or chills. The pain does not radiate. The patient was found to have multivessel disease because he was having exertional chest pain and underwent cardiac catheterization. He was scheduled for bypass, but his is currently Covid positive and this has been postponed. The patient states his been compliant with his medications. He denies any fever or chills. He states he thought he might of been reflux, but when he tried to burp, it seemed to make the pain worse. He is not had diarrhea. He states he has been isolating himself from his . Prior similar symptoms: Yes Recent Illness/Hospitalization: No Past Medical History - Allergies and Home Meds Allergies/Adverse Reactions: Allergies Penicillins Allergy (Verified 01/15/20 23:12) Swelling Primary Care Physician: Gianfranco West MD [Primary Care Provider] - Prior records reviewed: Yes Past Medical History: - - Hypertension, coronary vascular disease Surgical History: noncontributory Smoking Status: Former smoker Review of Systems General: Denies: Chills, Fever, Sweats Eyes: Denies: Visual changes - bilaterally, Diplopia ENT: Denies: Rhinorrhea, Sore throat Cardiovascular: Reports: Chest pain. Denies: Palpitations Respiratory: Reports: Dyspnea. Denies: Cough, Dyspnea on exertion Gastrointestinal: Denies: Abdominal pain, Nausea, Vomiting, Diarrhea, Melena, Hematochezia Genitourinary: Denies: Dysuria, Hematuria, Frequency Musculoskeletal: Denies: Back pain, Extremity Pain Skin: Denies: Rash, Wounds Neurological: Denies: Headache, Weakness, Numbness Physical Exam Vital Signs/Narrative: Vital Signs Temp Pulse Resp BP Pulse Ox 02/20/20 04:34 98.0 F 75 12 139/81 H 98 Inital Vital Signs reviewed: Yes General: Well nourished, Well developed, No Acute Distress Head: Normocephalic, Atraumatic Eyes: Perrl, EOMI ENT: Moist mucous membranes, No rhinorrhea Neck: Supple, Nontender Cardiovascular: Regular rate, Regular rhythm, No murmurs Respiratory: No distress, CTA bilaterally, Chest nontender Abdomen: Soft, Nontender, Nondistended, Normal bowel sounds Back: Nontender, Normal Inspection Extremities: Nontender, No edema Skin: Normal color, No rash Neurological: Alert, Oriented x3, Cranial nerves II-XII grossly intact, Normal Strength, Normal Sensation Psychological: Normal affect, Normal Mood Diagnostic/Tx/Re-eval Chest X-Ray - ED: 2 View, Normal, Heart, Lungs, Mediastinum Clinical Impression(s) from Imaging Studies Chest X-Ray 02/20/20 04:50 IMPRESSION: Degenerative changes, as described above. No demonstrated acute cardiopulmonary process. Electronically Signed: Chiara Urias, at 5:50 EDT Tel , Service support , Chest CTA 02/20/20 05:22 IMPRESSION: Emphysema predominantly centrilobular type. No demonstrated pulmonary embolism or arterial dissection. No evidence of pneumonia or ARDS. Electronically Signed: Chiara Urias, at 6:09 EDT Tel , Service support , Abnormal Lab Results 02/20/20 02/20/20 02/20/20 04:40 04:40 04:40 WBC 8.9 RBC 4.29 L Hgb 13.5 Hct 39.9 L MCV 93.0 MCH 31.5 MCHC 33.8 RDW Std Deviation 46.3 H RDW Coeff of Marlene 13.6 Plt Count 241 MPV 9.9 Immature Gran % (Auto) 0.800 Neut % (Auto) 59.1 Lymph % (Auto) 23.3 [place] % (Auto) 9.8 Eos % (Auto) 6.0 H Baso % (Auto) 1.0 Absolute Neuts (auto) 5.2 Absolute Lymphs (auto) 2.06 Nucleated RBC % 0 Sodium 137 Potassium 3.9 Chloride 105 Carbon Dioxide 24.0 Anion Gap 8 BUN 13 Creatinine 1.03 Estim Creat Clear Calc 80.57 Est GFR (MDRD) Af Amer 94 Est GFR (MDRD) Non-Af 77 BUN/Creatinine Ratio 12.6 Glucose 150 H Lactic Acid 1.8 Calcium 8.6 Total Bilirubin 0.30 AST 18 ALT 41 Alkaline Phosphatase 85 Troponin I < 0.015 Total Protein 7.0 Albumin 3.5 Globulin 3.5 Albumin/Globulin Ratio 1.0 - Rhythm Strip Rhythm Strip: Sinus Rhythm Rate: 70 Ectopy: None - EKG Initial EKG Interpretation: Sinus Rhythm, No Acute Injury Pattern, RBBB Prior: Unchanged - Medical Decision Making The patient presents with bandlike pain across his central chest. He states that this is different than his anginal type symptoms he was having he ended up getting a catheterization. He had no change in his pain with nitro from squad. His EKG was obtained on arrival. There was a right bundle branch block which was unchanged from prior. His pain does seem atypical especially given his known symptoms with cardiac pain. However, given his known exposure and history of coronary vascular disease broad metabolic work-up was pursued. Chest x-ray shows chronic change without focal infiltrative process. Screening labs including initial cardiac enzymes were negative. As the patient did have a pleuritic component to his pain, CTA was obtained. There is no evidence of pulmonary embolus, effusion, pneumothorax, or infiltrative process. The patient was pain-free after morphine. The patient has known cardiovascular disease and is scheduled for coronary artery bypass grafting. His symptoms do seem atypical for acute coronary syndrome. I did discuss his case with Dr. Choudhury, and given his unremarkable work-up he was agreeable with plan for 3-hour repeat troponin testing. I do feel that if this is negative, in light of the patient's symptoms, he will be safe for discharge. The patient is comfortable with this plan of care. Impression 1. Atypical chest pain 2. Exposure to Covid 19 ED Disposition - Plan for ED Patient: Instructions: ED Chest Pain Atypical Unkn Cause Referrals: Gianfranco West MD [Primary Care Provider] -
--- NOTE | 2020-02-20 04:50 | RAD_ITS ---
STUDY: X-RAY CHEST REASON FOR EXAM: Male, 64 years old. MIDSTERNAL CHEST PAIN -- TESTED POSITIVE FOR COVID19 TECHNIQUE: Single AP portable view of the chest. COMPARISON: None. FINDINGS: The lungs are clear and expanded. There is no demonstrated pleural abnormality. Normal size heart. Normal mediastinum and james. Normal visualized pulmonary arteries. There is atherosclerotic calcification of the aortic arch with tortuosity. There are diffuse degenerative changes of the visualized thoracic spine. There is degenerative osteoarthritis of the bilateral shoulders. There is no demonstrated abnormality of the visualized soft tissue structures of the upper abdomen. RAD/Chest 1 View (Portable) IMPRESSION: Degenerative changes, as described above. No demonstrated acute cardiopulmonary process. Electronically Signed: Chiara Urias, at 5:50 EDT Tel , Service support ,
[2020-02-20] MEDS: Ondansetron 4 MG/2 ML Vial IV (04:55)
[2020-02-20] MEDS: Morphine 4 MG/ML Syringe IV (04:57)
[2020-02-20 05:02] LABS: Absolute Lymphocyte Count 2.06 X10^3/uL (0.83-4.51); Absolute Neutrophil Count 5.2 X10^3/uL (2.0-7.7); Basophil# 0.09 X10^3/uL; Eosinophil# 0.53 X10^3/uL; Hematocrit 39.9 % (40-54); Hemoglobin 13.5 g/dL (13.0-16.5); Lymphocyte # 2.06 X10^3/ul (4.0); Lymphocyte % 23.3 % (19-41); Mean Corp Hgb Conc 33.8 g/dL (32-36); Mean Corpuscular Hgb 31.5 pg (27.0-32.0); Mean Platelet Vol. 9.9 fl (6.2-12.0); Monocyte# 0.87 X10^3/uL; Monocyte% 9.8 % (0-10); NRBC Flagged by Analyzer 0 % (0-5); Neutrophil # 5.23 X10^3/uL (2.7-7.7); Neutrophil % 59.1 % (47-70); Platelet Count 241 K/mm3 (150-450); RBC Distribution Width CV 13.6 % (11.6-14.6); RBC Distribution Width SD 46.3 fl (35.1-43.9); Red Blood Count 4.29 M/mm3 (4.6-6.2); White Blood Count 8.9 K/mm3 (4.4-11.0)
[2020-02-20 05:14] LABS: AST(SGOT) 18 U/L (15-37); Alanine Aminotransfer ALT/SGPT 41 U/L (16-61); Albumin, Serum 3.5 g/dL (3.2-5.0); Alkaline Phosphatase 85 U/L (45-117); Anion Gap 8 (5-15); BUN 13 mg/dL (7-18); BUN/Creat Ratio 12.6 RATIO (10-20); Calcium,Total 8.6 mg/dL (8.5-10.1); Chloride 105 mmol/L (98-107); Creatinine, Serum 1.03 mg/dL (0.70-1.30); EST Glomerular Filtration Rate 77 mL/min (>60); Est Glom Filt Rate - Afr Amer 94 mL/min (>60); Estimated Creatinine Clearance 80.57 ml/min; Globulin 3.5 g/dL (2.2-4.2); Glucose 150 mg/dL (74-106); Potassium 3.9 mmol/L (3.5-5.1); Sodium Level 137 mmol/L (136-145)
[2020-02-20 05:20] LABS: Lactic Acid 1.8 mmol/L (0.4-1.9)
--- NOTE | 2020-02-20 05:22 | CT_ITS ---
STUDY: CTA CHEST REASON FOR EXAM: Male, 64 years old. PT STATED CHEST PAIN, KNOWN NEED FOR TRIPLE BYPASS, CANCELED DUE TO POSITIVE WITH COVID-19 RADIATION DOSAGE (If Supplied By Facility): CTDIvol = ( 11.77 ) mGy, DLP = ( 510.29 ) mGycm TECHNIQUE: The examination was performed with the intravenous administration of 100ML ISOVUE 370. Post-processing of the angiographic images was performed, with multiplanar reformation and 3D reconstruction. Individualized dose optimization techniques were used for this CT. COMPARISON: None. FINDINGS: Normal enhancement of the main pulmonary artery and right and left pulmonary arteries. Normal enhancement of the bilateral peripheral pulmonary arteries. There is no demonstrated pulmonary embolism. Normal thoracic aorta and visualized great vessels. There is no demonstrated aortic dissection. Normal heart and pericardium. Normal mediastinum. Normal hilar regions. Normal visualized trachea and bronchi. The lungs are well expanded. Centrilobular emphysema is noted in both lungs more prominent in the upper lobes. Normal pleura. Normal chest wall structures. There are degenerative changes of thoracic spine. Normal visualized upper abdomen. CT/CTA Chest W/WO Contrast IMPRESSION: Emphysema predominantly centrilobular type. No demonstrated pulmonary embolism or arterial dissection. No evidence of pneumonia or ARDS. Electronically Signed: Chiara Urias, at 6:09 EDT Tel , Service support ,
[2020-02-20 07:07] VITALS: BP 119/74; PULSE 62; RESP 18; O2SAT 97
[2020-02-20 08:09] VITALS: BP 138/78; PULSE 66; RESP 13; O2SAT 98
[2020-02-20 09:04] VITALS: BP 129/79; PULSE 65; RESP 16; O2SAT 96
== END 2020-02-20 09:07 | disposition home or self-care (01) ==
LOC: ED 05:05
PROVIDERS: Emergency Provider Emergency Medicine; PCP Family Medicine
DX: R07.9 Chest pain, unspecified (principal); Z20.828 Contact with and (suspected) exposure to other viral communicable diseases; I25.10 Atherosclerotic heart disease of native coronary artery without angina pectoris; I10 Essential (primary) hypertension; Z87.891 Personal history of nicotine dependence; Z79.82 Long term (current) use of aspirin
CPT/HCPCS: 71045; 71275; 80053; 83605; 84484; 85025; 87040; 93005; 96365; 96375; 99285; Q9967; A4216; J2405

== ENCOUNTER → 2020-03-03 10:46 | Outpatient (CLI) | payer BC, SELFPAY ==
[2020-02-20 04:34] VITALS: BMI 31.9
== END ==
PROVIDERS: PCP Family Medicine
DX: Z03.818 Encounter for observation for suspected exposure to other biological agents ruled out (principal); Z13.6 Encounter for screening for cardiovascular disorders
CPT/HCPCS: 87635; 94799; U0004

== ENCOUNTER → 2020-04-13 12:40 | Outpatient (CLI) | payer BC, SELFPAY ==
[2020-04-07 14:34] VITALS: BMI 30.3
--- NOTE | 2020-04-13 13:09 | PCM.CR.ITP ---
Diagnosis - General Information Admitting Diagnosis: Z95.1 CABG Personal Learning Style:: Audio/Visual Stage of change r/t lifestyle modifications:: Contemplation Gave educational material for:: Treating Heart Disease, Emotions & Heart Disease, Stress Management & Relaxation, Sleep Disorders & Heart Disease, How The Heart Works, What it means to have Heart Disease, How Coronary Artery Disease is Diagnosed, Heart Procedures, What Heart Medications Do, Risk Factors & Modifications, Living an Active Life, Nutrition - Education/Goals Cardiac Rehabilitation Goals: 1. Maintain the individual as the primary focus of care. 2. To improve the patient's quality of life. 3. Identification of cardiac risk factors and provide cardiac risk factor management. 4. Enhance the psychosocial status of the patient. 5. Reconditioning enough to allow the patient to resume customary activities. 6. Control symptoms of cardiac disease Personal Goals: Initial Assessment: Improve management of stress and emotions, Improve energy level, Participate in home exercise program, Get back to work, or to resume activities faster, Improve knowledge of cardiac disease, Improve muscle strength and endurance, Improve diet and eating habits (eat healthier), Control risk factors (learn risk factor modification) Scale for measuring improvement of personal goals: Enter appropriate number in Comments. 2 = Unchanged. 3 = Slightly Better. 4 = Moderate Improvement. 5 = Met my Goal - Diagnosis & Disease Process Plan/Interventions: Assist Pt to ID & engage in lifestyle modification to reduce CVD risk, Instruct on individual risk factors, Review symptoms of angina & emergency actions, Review secondary diagnosis & identify educational needs., Other see comment 30 day Reassessments:: Not Met 30 day Reassessments:: Not Met 30 day Reassessments:: Not Met 30 day Reassessments:: Not Met Final Reassessments:: Not Met - Safety Referral to Physical Therapy: No Referral to [facility] Case Management: No Fall Risk Assessed:: Yes Assistive Devices:: None Exercise - Initial Assessment - Visit Date of Eval: 04/13/20 - initial eval Mets: Pre-: >7 METS for 30 minutes by discharge - Physician Prescribed Exercise Modalities: Treadmill, Airdyne, NuStep, SciFit Frequency: 3x/week for 12 weeks [36 sessions] Intensity: 60-80% of age predicted maximum heart rate reserve Current METSs:: 3.0 Target Heart Rate:: 102-133 EKG Type: SR with RBBB and possible left anterior fascicular block - Outcomes & Goals Goals:: Verbalizes understanding of THR, RPE & goal METS by session 6, Documents in home exercise log/reports 30 min aerobic 5 day/wk by DC, Demonstrates accurate pulse taking by DC, Other additional outcome/goals: see below - Intervention & Plan Exercise Program Goals: Instruct on personal THR & RPE, Instruct on MET level & personal MET goal, Show patient to take own pulse /validate performance until accurate, Instruct on home exercise, Other additional plan/int - Physical Activity Home Exercise Physical Activity - Home Exercise: Safe Exercise, Warm-up, Self-monitoring, Cool-Down, Home Exercise > 30 min Daily, Sitting Time <3 hours/daily - Outcomes & Goals Outcomes/Goals: Demonstrates correct Warm-up/exercise Cool-Down (S3) if = 2.5 METs, Verbalizes symptoms of exercise intolerance by Session 3 (S3), Demonstrate safe equipment use (S3) & follows exercise prescrition (6), Other: See below - Intervention & Plan Plan/Intervention: Instruct warm-up & cool-down if exercising at > 2 METs, Instruct on symptoms of exercise intolerance & actions to take, Instruct & monitor on saf, Assess intial functional capacity & safety risk, Other See below Nutrition - Initial Assessment - Program Goals Nutrition Program Goals: LDL <100 optimal. 100 - 129 Near optimal. 130 - 159 Borderline High. 160 - 189 High. Total Cholesterol <200 desirable. 200 - 239 Borderline High. >/= 240 High. HDL < 40 Low >/=60 High. Triglycerides <150 desirable. <199 optimal. VlDL 5 - 40. HgbA1C <7%. BMI <25 Patient has diagnosis of Hyperlipidemia (ICD E78)?: Yes - Visit Date of Assessment:: 04/13/20 - Cholesterol/Lipids Determine presence & major risk factors that modify LDL goal: Cigarette smoking, Hypertension or hypertensive medication, Low HDL cholesterol <40 mg/dL*, Family history of premature CHD in Male < 55 years: female <65 yearsFa, Age men > 45 years; women >/= 55 years Outcomes/Goals: Pt IDs own risk factors & lifestyle modifications by Session 10, Verbalizes symptoms of angina & response by session 3., Pt independently manages, Other Additional Outcomes/Goals: Intervention/Plan: Advocate for lipid panel cholesterol medication if applicable, Instruct on personal lipid levels & lipid goals/NCEP guidelines, Instruct on cholesterol, Other additional plan/int - Diabetes (Other Core Measures) Diabetes Type: Not Applicable - Weight Mgt (Other Care) Height: 6 ft Weight:: 101.35 kg BMI: 30.3 Diagnosis Overweight/Obesity BMI> 30% ICD-10 E66: Yes Intervention/Plan: Instruct on ideal BMI & set weight loss goal w/patient, Assist pt to ID & incorporate diet changes for weight loss by S9, Refer to Structured Weight Loss program as appropriate, Encourage goal of using 250-300dcal per session for weight loss, Other additional plan/interventions - Healthy Eating Habits Will attend diet classes:: Yes Outcomes/Goals:: Consume diet rich in vegs,fruits,whole grain/high fiber,fish,lean meat, Limit sat/trans fats,cholesterol & added salts & sugars, Other additional outcome/goals: Intervention/Plan:: Assess current eating habits, Other Additional plan/interventions - Education Gave educational materials for:: Signs & symptoms of hypoglycemia, Signs & symptoms of hyperglycemia, Relate diabetes to coronary artery disease, Healthy eating Nutrition - 30-Day Assessment - Program Goals Nutrition Program Goals: LDL <100 optimal. 100 - 129 Near optimal. 130 - 159 Borderline High. 160 - 189 High. Total Cholesterol <200 desirable. 200 - 239 Borderline High. >/= 240 High. HDL < 40 Low >/=60 High. Triglycerides <150 desirable. <199 optimal. VlDL 5 - 40. HgbA1C <7%. BMI <25 - Visit Date of Assessment:: 04/13/20 Medical - Initial Assessment - Visit Date of Eval: 04/13/20 - Medication Compliance Doesn?t believe in the benefits of treatment?: No Believes medications are unnecessary or harmful?: No Has a concern about medication side effects?: No Expresses concern over the cost of medications?: No Outcomes/Goals: Verbalizes medications,desired effect & common side effects @ DC, Pt self-reports following medication regimen, Other additional outcome/goals: Interventions/plans: Instruct on medication effects & side effects, Review medication list w/patient every two weeks, Instruct importance of taking meds as ordered & assist problem solving, Other additional - Tobacco Use Tobacco Use: Non-smoker - stopped in december How long ago did you quit using tobacco products?: Less than 6 months ago Interventions/plan: Instruct on effects of smoking & provide smoking cessation resource, Assist pt to set quit date & provide encouragement, Assist pt to develop strategies to achieve/maintain quit date, Assist pt w/nicotine replacement & medication for cessation success, Other additional plan/interventions - Hypertension Hypertension Diagnosis:: Hypertension ICD-10 I10 Resting Blood Pressure:: 122/70 [place] [employer] Hypertension Guidelines: [place] [employer] Hypertension Guidelines. Normal BP Less than 120/80. Elevated BP 120/80. Hypertension Stage 1: BP 130-139/80-89. Hypertesnion Stage 2: BP 140 or higher/90 or higher. Hypertension Crisis: BP higher than 180/120 Outcomes/Goals: Able to verbalize/achieve optimal blood pressure <130/80, Incorporates diet changes & exercise for blood pressure control by DC, Other additional outcomes/goals Interventions/plan: Instruct on optimal blood pressure, hypertension & medications, Instruct on effects of sodium, alcohol, stress, exercise &hypertension, Other additional plan/interventions - Tobacco Cessation Referral Smoking Cessation Referral:: No Individual Education/Counseling:: No Education Schedule Given:: Yes Psychosocial - Initial Assess - VIsit Date of Eval: 04/13/20 History of Emotional Disorders: Depression - Pt stets he thinks he is depressed Self-reported stressors: Other - work - Target Goals Target Goals: Assess presence or absence of depression. Using a valid screening tool, maximizes coping skills. Positive support system - Psychosocial Test Tool Used:: Joann Ha QOL Cardiac, PHQ-9 Questionnaire phq-9 Severity: Severity. 1-4 Minimal Depression. 5-9 Mild Depression. 10-14 Moderate Depression. 15-19 Moderately Sever Depression. 20-27 Severe Depression. Rule: See PHQ-9 Score: 15 - Referral to Behavioral Health PS - Interventions: Yes Attend Stress Management Classes, No Referral to Behavioral Health if PHQ-9 score >9:, No Referral to [facility], No Referral to Physician if PHQ-9 if score is 5-9: - Outcomes/Goals: See list Psychosocial Outcomes/Goals:: ID's personal stressors & 2 strategies to manage stress by discharge, Other Additional outcome/goals: - Intervention/Plan: See List Interventions/Plan:: Assess stressors,coping strategies & signs of derpression on admission, Instruct/assist pt to develop coping & personal stress Mgt strategies, Refer to Behavioral Health if appropriate, Refer to Physician if appropriate, Instruct patient to recognize signs & symptoms of depression, Instruct patient to recog, Other additional plan/intervention Patient Health Questionnaire Initial Assessment 1. Little interest or pleasure in doing things: Nearly every day 2. Feeling down, depressed, or hopeless: Nearly every day 3. Trouble falling or staying asleep, or sleeping too much: Nearly every day 4. Feeling tired or having little energy: More than half the days 5. Poor appetite or overeating: Not at all 6. Feeling bad about yourself -- or that you are a failure or have let yourself or your family down: More than half the days 7. Trouble concentrating on things, such as reading the newspaper or watching television: More than half the days 8. Moving or speaking so slowly that other people could have noticed. Or the opposite - being so fidgety or restless that you have been moving around a lot more than usual: Not at all 9. Thoughts that you would be better off , or of hurting yourself in some way: Not at all How difficult have these problems made it for you to do your work, take care of things at home, or get along with other people?: Very difficult Total Score: 15 JOHANN-Q SV Test - Statements CAD is a disease of the arteries in the heart: False Examples of risk factors for heart disease: True Angina is chest pain or discomfort: True The benefits of resistance training include: True Eating more meat and dairy products: False Anti-platelet medications such as aspirin are important: True The only effective way to manage stress: False An exercise warm-up slowly increases heart rate: I Don't Know Prepared, processed foods usually have high sodium: True Depression is common after a heart attack: True The statin medications lower cholesterol: True To control blood pressure, lower the amount of sodium: True If someone gets chest discomfort during walking: False Transfats are partially hydrogenated vegetable oils: I Don't Know Sleep apnea that is not treated increases the risk: I Don't Know To control cholesterol, one should become a vegetarian: False Someone knows if he/she is exercising at the right level: True Diabetes cannot be prevented with exercise & health eating: False Stress is a large risk for heart attack: True A diet that can help lower blood pressure is rich in: True - Total Score Total Correct Responses: 17 Nutrition Survey - Nutrition Survey Instructions Scoring Instructions: Scoring is as follows: Yes = 1 points. No = 0 point. Patient score that is >/=12 is considered to be at potential nutritional risk and could benefit from a referral to a registered dietitian. - Nutrition Survey Initial Have you lost >10 lbs over the past 2 months without trying?: No Are you following a special diet at home for diabetes, low fat, or low salt?: Yes Are you interested in meeting with a dietitian for help understanding your diet?: Yes Do you eat less than 3 meals a day?: No Do you eat fatty meats (zavala, sausage, ribs, etc), fried foods, desserts, large amounts of salad dressings, margarine, butter, or cheese most days?: No Do you have food allergies? [Enter types in comment field]: No Do you eat in restaurants more than 3 times a week?: No Do you season food with salt, seasoning salt, or garlic salt?: No Do you used canned, boxed, frozen meals, or soups, seasoning packets?: Yes Total Score:: 3
--- NOTE | 2020-04-13 13:10 | CR.HP_ITS ---
CR - History & Physical - General Arrival date:: 04/13/20 Arrival time:: 13:10 Date of Referral:: 04/07/20 Date of CR Evaluation:: 04/13/20 Referring Physician: Dr. Gianfranco Wells Primary Diagnosis: Z95.1 - History of Present Cardiac Event Onset Date: Enter Onset Date of cardiac illnesses in Comment field below Current stable Angina Pectoris:: No Acute Myocardial Infarction within 12 months:: No Coronary Artery Bypass Graft:: Yes - 03/08/20 Heart valve replacement or repair:: No PTCA or coronary stenting:: No Heart or Heart-Lung Transplant:: No Heart Failure EF <35%:: No - Medications Home Medications: Ambulatory Orders Medication Instructions Recorded losartan 50 mg tablet 50 mg PO DAILY #90 tab 11/25/19 nitroglycerin 0.4 mg sublingual 0.4 mg SUBLINGUAL Q5-15M PRN #25 01/05/20 tablet tab acetaminophen 500 mg tablet 1,000 mg PO Q4H PRN tab 03/24/20 cholecalciferol (vitamin D3) 25 2,000 unit PO DAILY tab 03/24/20 mcg (1,000 unit) tablet coenzyme Q10 100 mg capsule 100 mg PO DAILY 03/24/20 glimepiride 1 mg tablet 0.5 mg PO DAILY tab 03/24/20 magnesium oxide 400 mg PO DAILY 03/24/20 metformin 500 mg tablet 500 mg PO DAILY 03/24/20 aspirin 81 mg chewable tablet 162 mg PO DAILY@0800 tab 04/07/20 docusate sodium 100 mg capsule 100 mg PO DAILY PRN 04/07/20 metoprolol tartrate 50 mg tablet 50 mg PO BID tab 04/07/20 pravastatin 80 mg tablet 80 mg PO QHS #90 tab 04/07/20 - Allergies Allergies/Adverse Reactions: Allergies Penicillins Allergy (Verified 04/07/20 14:40) Swelling - Sleep Disorder Evaluation Hx of Sleep Apnea: No Do you snore loudly (louder than talking or can be heard through closed doors)?: Yes Do you often feel tired/ fatigued/ sleepy during daytime?: Yes - pt declines sleep study at this time. Has anyone observed you stop breathing during sleep?: No History of Hypertension (for STOP score): Yes STOP Results: Positive Advanced Directives - Advanced Directives Power of Inspector Of Weights And Measures: No Living Will: No Advance Directives Information Provided: No Advance Directives on File: No DNR Order?:: No Past Medical History - Past Medical Illness Medical History: Past Medical History (Last Reviewed 04/07/20 @ 14:47 by Saranya Downey) Pure hypercholesterolemia (Chronic) E78.00 Essential hypertension (Chronic) I10 Atherosclerotic heart disease of [place] coronary artery without angina pectoris (Chronic) I25.10 Moderate per cath 2005. 12/31/2019: FFR in the LAD was 0.77 which is consistent with significant stenoses. 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 12/31/2019: FFR in the LAD was 0.77 which is consistent with significant stenoses. 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 History of foot surgery Z98.890 History of hernia repair Z98.890, Z87.19 Surgical History: noncontributory - Family History Summary Family History: Family History (Last Reviewed 04/07/20 @ 14:47 by Saranya Downey) Father Heart disease Mother Heart disease Social History - Smoking History Smoking Status: Former smoker Years Smokin Packs Smoked per Day: 1.5 Hx Smoking Cessation Date: 12/19/19 Hx Tobacco Use: Yes Hx Smoking Exposure: Yes - Alcohol Use Alcohol Usage: Yes - daily - Substance Abuse Hx Substance Use: No - Occupation Occupation (List type of work in comments):: Employed Hours worked per day:: 10 Returned to work on:: 04/18/20 - Hobbies, Recreation, Social Activities Hobbies: Other - music Recreational Activities: I am able to engage in all my recreational activities Social Environment - Status Marital Status: - Current Living Arrangements Living Environment:: Spouse - Children How many children do you have?: 3 Do any of your children live nearby?: No - Safety Do you feel safe in your surroundings?: Yes - Assistance Do you need any assistance at home?: none Review of Systems - Review of Systems Hints: Right click = Denies (Slash). Left click = Reports ([place]) Review of Present Symptoms: Reports: Shortness of Breath with Exertion, Fatigue, Appetite - Normal, Sleep - Normal. Denies: Shortness of Breath at Rest, PVD, Operative Discomfort - incisional pain, Angina, Wound Healing, Diz ziness/Lightheadedness, Heart Arrhythmia/Irregularities, Appetite - Special Diet, Sexual Changes - Pain Is Patient Pain Free?: No Pain Location: none, chest - incisional pain Pain Level: 8/10 - comes and goes Risk Factor Assessment - Chief Complaint Chief Complaint: CABG - Vital Signs Pulse Ox: 97 - Pulse Pulse Rate: 93 Pulse Rhythm: Regular - Hypertension How long have you been treated?: 5 years Blood Pressure Sitting - Left Arm: 122/70 - Stress Stress: Work-related - Obesity Height: 6 ft Weight:: 101.35 kg Weight in Pounds: 223.4 lbs Body Mass Index (BMI): 30.3 Nutritional Referral for Obesity: No - Physical Inactivity Physical Inactivity: Reg Exercise 30 min/day - pt walkes every day - Risk Stratification Risk Guidelines: Moderate Risk: Risk Factor for Smoking, Risk Factor for Dyslipidemia, Risk Factor for Diabetes, Risk Factor for Obesity, Risk Factor for Hypertension, Risk Factor for Sedentary Lifestyle, Risk Factor for Depression - For Smoking Smoking Risk Guidelines: Smoking Low Risk: None or quit greater than 6 months ago. Smoking Moderate Risk: Smoker or quit 6 months or less ago. Smoking High Risk: Smoker - For Dyslipidemia Dyslipidemia Risk Guidelines: Low Risk: Moderate Risk: High Risk: 15-25% fat 25.1-29% fat >/= 30% fat. <7% sat fat 7-9% sat fat >9% sat fat. <150 mg chol 150-299 mg chol >/= 300 mg chol. LDL <100 LDL 100-129 LDL >/= 130. Chol/HDL ratio <5.0 Chol/HDL ratio 5.0-6.0 Chol/HDL ratio >6.0. Triglycerides <100 Triglycerides 100-149 Triglycerides >/= 150 - For Diabetes Mellitus Diabetes Risk Guidelines: Diabetes Low Risk: HgA1c <6.5% and/or FBG <120. Diabetes Moderate Risk: HgA1c 6.6-7.9% and/or FBG 120-180. Diabetes High Risk: HgA1c >/= 8% and/or FBG >180 - For Obesity/Overweight Obesity/Overweight Risk Guidelines: Obesity Low Risk: BMI <25.0. Obesity Moderate Risk: BMI 25-29.9. Obesity High Risk: BMI >/= 30.0 - For Hypertension Hypertension Risk Guidelines: Hypertension Low Risk: Systolic <120 and Diastolic <80. Hypertension Moderate Risk: Systolic 120-139 and Diastolic 80-89. Hypertension High Risk: Systolic >/= 140 and Di astolic >/= 90 - For Sedentary Lifestyle Sedentary Lifestyle Risk Guidelines: Sedentary Lifestyle Low Risk: >/= 1,500 kcal/week. Sedentary Lifestyle Moderate Risk: 700-1,499 kcal/week. Sedentary Lifestyle High Risk: < 700 kcal/week - For Depression Depression Risk Guidelines: Depression Low Risk: Not clinically depressed. Depression Moderate Risk: Mildly depressed. Depression High Risk: Clinically depressed - Family History Family History: Family History (Last Reviewed 04/07/20 @ 14:47 by Saranya Downey) Father Heart disease Mother Heart disease Motivation - Motivation to Participate On a scale of 1 to 10, how prepared are you to commit to attending program?: 8 What do you see as barriers to successfully being able to complete the program?: none What do you see as the benefits of succesfully completing the program? In other words, what do you hope to get out of participating in the program?: improved fitness Are there issues you are dealing with that will interfere with completing the program?: none Do you have a spouse or signficant other, family or friends who will help support you to complete the program?:
[2020-04-13 14:22] VITALS: BP 122/70; PULSE 93; O2SAT 97; BMI 30.3
[2020-04-13 14:23] VITALS: BP 122/70; BMI 30.3
== END ==
PROVIDERS: PCP Family Medicine; Referring Provider Internal Medicine Cardiovascular Disease; Visit Provider Internal Medicine Cardiovascular Disease
DX: Z95.1 Presence of aortocoronary bypass graft (principal); E78.00 Pure hypercholesterolemia, unspecified; I10 Essential (primary) hypertension; I25.10 Atherosclerotic heart disease of native coronary artery without angina pectoris; K58.9 Irritable bowel syndrome, unspecified; Z72.0 Tobacco use

== ENCOUNTER → 2020-04-19 09:43 | Outpatient (CLI) | payer BC, SELFPAY ==
[2020-04-13 14:22] VITALS: BMI 30.3
[2020-04-13 14:23] VITALS: BMI 30.3
--- NOTE | 2020-04-19 11:25 | STRESSREP ---
Stress Test Report Date: 04-19-2020 Procedure: Exercise tolerance test Indications: CAD; CABG; precardiac rehabilitation evaluation Consent: Per the patient Procedure: The patient exercised on a Maurice protocol for 6 minutes completing stage II achieving a peak heart rate of 153 bpm (97 % predicted maximal heart rate) with a peak blood pressure 168/70 mmHg and a peak MET capacity of approximately 7 mET's. The baseline ECG demonstrated normal sinus rhythm; right IVCD pattern. The peak exercise ECG demonstrated no obvious ECG changes. There were no cardiac dysrhythmias pretest, during exercise, or recovery. The functional capacity was considered average. The patient had no complaint of chest discomfort during exercise or recovery. The examination was discontinued secondary to dyspnea. Impression: 1. Technically adequate (percent predicted maximal heart rate greater than 85%) exercise tolerance test 2. Peak exercise ECG with no obvious ECG changes 3. There were no cardiac dysrhythmias during exercise or recovery This note was generated with freshbagation software. It may contain incorrect words, spelling, and punctuation that were not noted in checking the note before signing.
== END ==
PROVIDERS: PCP Family Medicine; Referring Provider Internal Medicine Cardiovascular Disease; Visit Provider Internal Medicine Cardiovascular Disease
DX: I25.10 Atherosclerotic heart disease of native coronary artery without angina pectoris (principal); E78.00 Pure hypercholesterolemia, unspecified; I10 Essential (primary) hypertension; Z95.1 Presence of aortocoronary bypass graft; Z72.0 Tobacco use
CPT/HCPCS: 93017

== ENCOUNTER → 2020-04-25 13:12 | Outpatient (CLI) | payer BC, SELFPAY ==
[2020-04-13 14:22] VITALS: BMI 30.3
[2020-04-13 14:23] VITALS: BMI 30.3
[2020-04-25 14:04] LABS: Hematocrit 37.8 % (40-54); Hemoglobin 12.2 g/dL (13.0-16.5); Mean Corp Hgb Conc 32.3 g/dL (32-36); Mean Corpuscular Hgb 30.6 pg (27.0-32.0); Mean Corpuscular Volume 94.7 fL (80-94); Mean Platelet Vol. 9.8 fl (6.2-12.0); Platelet Count 319 K/mm3 (150-450); RBC Distribution Width CV 14.1 % (11.6-14.6); RBC Distribution Width SD 48.3 fl (35.1-43.9); Red Blood Count 3.99 M/mm3 (4.6-6.2); White Blood Count 8.9 K/mm3 (4.4-11.0)
[2020-04-25 14:20] LABS: Anion Gap 8 (5-15); BUN 14 mg/dL (7-18); BUN/Creat Ratio 14.8 RATIO (10-20); Calcium,Total 9.4 mg/dL (8.5-10.1); Chloride 106 mmol/L (98-107); Creatinine, Serum 0.95 mg/dL (0.70-1.30); EST Glomerular Filtration Rate 85 mL/min (>60); Est Glom Filt Rate - Afr Amer 103 mL/min (>60); Glucose 122 mg/dL (74-106); Potassium 4.1 mmol/L (3.5-5.1); Sodium Level 137 mmol/L (136-145)
[2020-04-25 14:34] LABS: BNP,B-Type NATRIURETIC PEPTIDE 76.4 pg/mL (0-100)
== END ==
PROVIDERS: PCP Family Medicine; Referring Provider Physician Assistant Medical; Visit Provider Physician Assistant Medical
DX: I25.10 Atherosclerotic heart disease of native coronary artery without angina pectoris (principal); I10 Essential (primary) hypertension; E78.00 Pure hypercholesterolemia, unspecified; Z95.1 Presence of aortocoronary bypass graft
CPT/HCPCS: 36415; 80048; 83880; 85027

== ENCOUNTER 2020-05-13 08:00 | Outpatient (RCR) | payer BC, SELFPAY ==
[2020-04-13 14:22] VITALS: BMI 30.3
[2020-04-13 14:23] VITALS: BMI 30.3
--- NOTE | 2020-05-16 13:38 | CR.ITP_ITS ---
Exercise - 30-day Assessment - Visit Date of Eval: 05/16/20 Session #:: 12 - Physician Prescribed Exercise Modalities: Treadmill, Rower, Airdyne, NuStep Frequency: 3x/week for 12 weeks [36 sessions] Intensity: 60-80% of age predicted maximum heart rate reserve Current METSs:: 5.5 Target Heart Rate:: 102-133 Current RPE:: 13 Maximum Excercise HR:: 119 Resting Blood Pressure: 112/58 Maximum Exercise Blood Pressure: 162/84 EKG Type: NSR WITHOUT ECTOPY. - Outcomes & Goals Goals:: Verbalizes understanding of THR, RPE & goal METS by session 6, Documents in home exercise log/reports 30 min aerobic 5 day/wk by DC, Demonstrates accurate pulse taking by DC - Intervention & Plan Exercise Program Goals: Instruct on personal THR & RPE, Instruct on MET level & personal MET goal, Show patient to take own pulse /validate performance until accurate, Instruct on home exercise - 30-day Reassessments 30 day Reassessments:: Progressing - Physical Activity Home Exercise Physical Activity - Home Exercise: Safe Exercise, Warm-up, Self-monitoring, Cool-Down, Home Exercise > 30 min Daily, Sitting Time <3 hours/daily - Outcomes & Goals Outcomes/Goals: Demonstrates correct Warm-up/exercise Cool-Down (S3) if = 2.5 METs, Verbalizes symptoms of exercise intolerance by Session 3 (S3), Demonstrate safe equipment use (S3) & follows exercise prescrition (6) - Intervention & Plan Plan/Intervention: Instruct warm-up & cool-down if exercising at > 2 METs, Instruct on symptoms of exercise intolerance & actions to take, Instruct & monitor on saf, Assess intial functional capacity & safety risk - 30-day Reassessments 30 day Reassessments:: Progressing Nutrition - 30-Day Assessment - Program Goals Nutrition Program Goals: LDL <100 optimal. 100 - 129 Near optimal. 130 - 159 Borderline High. 160 - 189 High. Total Cholesterol <200 desirable. 200 - 239 Borderline High. >/= 240 High. HDL < 40 Low >/=60 High. Triglycerides <150 desirable. <199 optimal. VlDL 5 - 40. HgbA1C <7%. BMI <25 Patient has diagnosis of Hyperlipidemia (ICD E78)?: Yes - Visit Date of Assessment:: 05/16/20 Session #:: 12 - Cholesterol/Lipids Determine presence & major risk factors that modify LDL goal: Hypertension or hypertensive medication, Family history of premature CHD in Male < 55 years: female <65 yearsFa Outcomes/Goals: Pt IDs own risk factors & lifestyle modifications by Session 10, Verbalizes symptoms of angina & response by session 3., Pt independently manages Intervention/Plan: Instruct on personal lipid levels & lipid goals/NCEP guidelines, Instruct on cholesterol Referral to dietitian:: Yes - MEDICAL NUTRITION THERAPY -WEIGHT LOSS - Diabetes (Other Core Measures) Diabetes Type: Not Applicable - Weight Mgt (Other Care) Not Applicable: No Height: 6 ft Weight:: 225 lb BMI: 30.5 Diagnosis Overweight/Obesity BMI> 30% ICD-10 E66: Yes Diagnosis High BMI/Morbid Obesity BMI> 35% ICD-10 Z68: No Outcomes/Goals: Pt sets, maintains & shows weight loss goal & trend during rehab Intervention/Plan: Instruct on ideal BMI & set weight loss goal w/patient, Assist pt to ID & incorporate diet changes for weight loss by S9, Refer to Structured Weight Loss program as appropriate, Encourage goal of using 250- 300dcal per session for weight loss 30 day Reassessments:: Not Met - NO RECENT WEIGHT LOSS - Healthy Eating Habits Outcomes/Goals:: Consume diet rich in vegs,fruits,whole grain/high fiber,fish,lean meat, Limit sat/trans fats,cholesterol & added salts & sugars Intervention/Plan:: Assess current eating habits 30-day Reassessments:: Progressing - Education Gave educational materials for:: Healthy eating Medical- 30-Day Assessment - Visit Date of Eval: 05/16/20 Session #:: 12 - Medication Compliance Preventative Medication(s):: Aspirin, Statin/lipid, Beta gideon H/O mental health issues: depression, anxiety, or addiction?: No Doesn?t believe in the benefits of treatment?: No Believes medications are unnecessary or harmful?: No Has a concern about medication side effects?: No Expresses concern over the cost of medications?: No Outcomes/Goals: Verbalizes medications,desired effect & common side effects @ DC, Pt self-reports following medication regimen, Keeps card in wallet w/medications listed by DC Interventions/plans: Instruct on medication effects & side effects, Review medication list w/patient every two weeks, Instruct importance of taking meds as ordered & assist problem solving 30-day Reassessments:: Progressing - Tobacco Use Tobacco Use: Non-smoker - Hypertension Resting Blood Pressure:: 112/58 [employer] Association Hypertension Guidelines: [employer] Association Hypertension Guidelines. Normal BP Less than 120/80. Elevated BP 120/80. Hypertension Stage 1: BP 130-139/80-89. Hypertesnion Stage 2: BP 140 or higher/90 or higher. Hypertension Crisis: BP higher than 180/120 Peak Exercise Blood Pressure:: 162/84 Outcomes/Goals: Able to verbalize/achieve optimal blood pressure <130/80, Incorporates diet changes & exercise for blood pressure control by DC Interventions/plan: Instruct on optimal blood pressure, hypertension & medications, Instruct on effects of sodium, alcohol, stress, exercise &hypertension 30 day Reassessments:: Progressing - Tobacco Cessation Referral Smoking Cessation Referral:: No Individual Education/Counseling:: No Education Schedule Given:: Yes Psychosocial - 30-Day Assess - VIsit Date of Eval: 05/16/20 Session #:: 12 Not Applicable: Yes History of previous Mental disease:: No - Target Goals Target Goals: Assess presence or absence of depression. Using a valid screening tool, maximizes coping skills. Positive support system - Psychosocial Test Tool Used:: VictorianoVidder QOL Cardiac, PHQ-9 Questionnaire phq-9 Severity: Severity. 1-4 Minimal Depression. 5-9 Mild Depression. 10-14 Moderate Depression. 15-19 Moderately Sever Depression. 20-27 Severe Depression. Rule: - Referral to Behavioral Health PS - Interventions: Yes Attend Stress Management Classes, No Referral to Behavioral Health if PHQ-9 score >9:, No Referral to [facility], No Referral to Physician if PHQ-9 if score is 5-9: - Outcomes/Goals: See list Psychosocial Outcomes/Goals:: ID's personal stressors & 2 strategies to manage stress by discharge - Intervention/Plan: See List Interventions/Plan:: Assess stressors,coping strategies & signs of derpression on admission, Instruct/assist pt to develop coping & personal stress Mgt strategies, Instruct patient to recognize signs & symptoms of depression, Instruct patient to recog - 30-day Reassessments: 30 day Reassessments:: Progressing Patient Health Questionnaire 30-Day Re-eval Assessment 1. Little interest or pleasure in doing things: More than half the days 2. Feeling down, depressed, or hopeless: More than half the days 3. Trouble falling or staying asleep, or sleeping too much: More than half the days 4. Feeling tired or having little energy: Several days 5. Poor appetite or overeating: Not at all 6. Feeling bad about yourself -- or that you are a failure or have let yourself or your family down: Several days 7. Trouble concentrating on things, such as reading the newspaper or watching television: Not at all 8. Moving or speaking so slowly that other people could have noticed. Or the opposite - being so fidgety or restless that you have been moving around a lot more than usual: Not at all 9. Thoughts that you would be better off , or of hurting yourself in some way: Not at all How difficult have these problems made it for you to do your work, take care of things at home, or get along with other people?: Somewhat difficult Total Score: 8 Self-Efficacy 30-Day Re-eval Assessment We would like to know how confident you are in doing certain activities. Please select your confidence level for:: Select your confidence level for the following using the scale 1-10 where 1 is not at all confident and 10 is totally confident. Your score is the average of all 6 responses. Fatigue: How confident are you that you can keep the fatigue caused by your disease from interfering with the things you want to do? Select Number: 6 Physical Discomfort or Pain: How confident are you that you can keep the physical discomfort or pain of your disease from interfering with the things you want to do? Select Number: 7 Emotional Distress: How confident are you that you can keep the emotional distress caused by your disease from interfering with the things you want to do? Select Number: 7 Other Symptoms or Health Problems: How confident are you that you can keep other symptoms or health problems from interfering with the things you want to do? Select Number: 6 Different Tasks and Activities: How confident are you that you can do the different tasks and activities needed to manage your health condition so as to reduce your need to see a doctor? Select Number: 5 Medication: How confident are you that you can do things other than just taking medication to reduce how much your illness affects your everyday life? Select Number: 8 Total Score:: 6
[2020-05-16 13:51] VITALS: BP 112/58; BP 162/84; BMI 30.5
== END 2020-05-17 23:59 ==
LOC: CR 08:00
PROVIDERS: PCP Family Medicine; Referring Provider Internal Medicine Cardiovascular Disease; Visit Provider Internal Medicine Cardiovascular Disease
DX: I25.10 Atherosclerotic heart disease of native coronary artery without angina pectoris (principal); Z95.1 Presence of aortocoronary bypass graft; E78.00 Pure hypercholesterolemia, unspecified; I10 Essential (primary) hypertension; Z72.0 Tobacco use
CPT/HCPCS: 93798

== ENCOUNTER 2020-05-18 06:15 | Outpatient (RCR) | payer BC, SELFPAY ==
[2020-04-13 14:22] VITALS: BMI 30.3
[2020-05-18 00:15] VITALS: BP 112/58; BP 162/84
== END 2020-06-17 23:59 ==
LOC: CR 06:15
PROVIDERS: PCP Family Medicine; Referring Provider Internal Medicine Cardiovascular Disease; Visit Provider Internal Medicine Cardiovascular Disease
DX: I25.10 Atherosclerotic heart disease of native coronary artery without angina pectoris (principal); E78.00 Pure hypercholesterolemia, unspecified; I10 Essential (primary) hypertension; Z95.1 Presence of aortocoronary bypass graft; Z72.0 Tobacco use
CPT/HCPCS: 93798

== ENCOUNTER → 2020-05-30 15:32 | Outpatient (CLI) | payer BC, SELFPAY ==
[2020-04-13 14:22] VITALS: BMI 30.3
[2020-05-16 13:51] VITALS: BMI 30.5
[2020-05-30 18:54] LABS: CRP 9.08 mg/L (0.0-3.0)
== END ==
PROVIDERS: PCP Family Medicine; Referring Provider Family Medicine; Visit Provider Nurse Practitioner Family
DX: M25.50 Pain in unspecified joint (principal)
CPT/HCPCS: 36415; 86140

== ENCOUNTER 2020-06-21 06:33 | Emergency (ER) | payer BC, SELFPAY ==
[2020-04-13 14:22] VITALS: BMI 30.3
[2020-06-21 06:34] VITALS: BP 188/93; PULSE 77; RESP 16; TEMP 37.3; O2SAT 97; BMI 29.9
[2020-06-21 06:42] VITALS: BP 163/89
--- NOTE | 2020-06-21 07:09 | RAD_ITS ---
STUDY: X-RAY - RIGHT FOOT CLINICAL: Severe right foot pain, no specific injury. TECHNIQUE: 3 view(s) of the foot. COMPARISON: None. FINDINGS: There is a posterior calcaneal enthesophyte. Otherwise, unremarkable talus, calcaneus, and tarsal bones. Normal visualized subtalar, talonavicular, calcaneocuboid, tarsal and tarsometatarsal articulations. Normal metatarsi. Normal metatarsophalangeal joint of the great toe. Normal tibial and fibular sesamoid bones. Normal interphalangeal joint of the great toe. Normal phalanges of the great toe. Normal second through fifth metatarsophalangeal joints. Normal interphalangeal joints and phalanges of the lesser toes. The soft tissue structures are unremarkable. RAD/Foot min 3 Views IMPRESSION: Posterior calcaneal enthesophyte. Otherwise, unremarkable x-ray examination of the right foot. Electronically Signed: Oral Evans MD at 7:43 EDT Tel , Service support ,
[2020-06-21] MEDS: HYDROcodone Bitartrate/Apap 5/325 Tablet PO (07:22)
[2020-06-21 07:28] LABS: Absolute Neutrophil Count 8.8 X10^3/uL (2.0-7.7); Basophil# 0.06 X10^3/uL; Basophil% 0.5 % (0-1); Eosinophil# 0.17 X10^3/uL; Eosinophils% 1.5 % (0-5); Hematocrit 39.8 % (40-54); Hemoglobin 13.5 g/dL (13.0-16.5); Lymphocyte % 12.2 % (19-41); Mean Corp Hgb Conc 33.9 g/dL (32-36); Mean Corpuscular Hgb 30.1 pg (27.0-32.0); Mean Corpuscular Volume 88.8 fL (80-94); Mean Platelet Vol. 9.1 fl (6.2-12.0); Monocyte# 0.95 X10^3/uL; Monocyte% 8.3 % (0-10); NRBC Flagged by Analyzer 0 % (0-5); Neutrophil # 8.81 X10^3/uL (2.7-7.7); Neutrophil % 77.2 % (47-70); Platelet Count 300 K/mm3 (150-450); RBC Distribution Width CV 14.2 % (11.6-14.6); RBC Distribution Width SD 45.8 fl (35.1-43.9); Red Blood Count 4.48 M/mm3 (4.6-6.2); White Blood Count 11.4 K/mm3 (4.4-11.0)
[2020-06-21 07:46] LABS: Anion Gap 7 (5-15); BUN 11 mg/dL (7-18); Chloride 103 mmol/L (98-107); EST Glomerular Filtration Rate 80 mL/min (>60); Est Glom Filt Rate - Afr Amer 97 mL/min (>60); Estimated Creatinine Clearance 81.91 ml/min; Glucose 127 mg/dL (74-106); Potassium 3.8 mmol/L (3.5-5.1); Sodium Level 136 mmol/L (136-145); Uric Acid 7.8 mg/dL (3.5-7.2)
--- NOTE | 2020-06-21 08:07 | ED.DCSUM_ITS ---
- ER Visit Summary Date of Service: 06/21/20 Chief Complaint: Foot pain History of Present Illness: The patient is a 65 M with right foot pain for 2 days. The pain is over the dorsum of his right foot. He denies any trauma or inciting factors. No other associated symptoms. He has had similar pain in his left foot and in his hands in the past. He is being evaluated for autoimmune arthropathies. He denies any history of gout or septic joint. Physical Examination: Afebrile and vital signs unremarkable. Right foot shows unremarkable inspection. Skin is intact. Neurovascularly intact. Pain on palpation of the right dorsal foot with light touch. Ankle and the rest of his leg unremarkable. Test Results: X-ray showed chronic changes. White count 11.4, glucose 127, uric acid 7.8. Emergency Department Course and Treatment: Patient was treated with pain medicine while awaiting results. I suspect this is gout. Patient is on prednisone already day 6 out of 15. He will continue this. Will add pain medicine. Continue using crutches at home. Referred to podiatry and primary care. Return for any new or worsening issues. Treatment Plan: As above Disposition: Discharge Impression: Right foot pain This note was generated with [employer] dictation software. It may contain incorrect words, spelling, and punctuation that were not noted in review of the chart prior to signing ED Disposition - Plan for ED Patient: Referrals: Gianfranco West MD [Primary Care Provider] -
--- NOTE | 2020-06-21 08:08 | DCINST.ED_ITS ---
ED Disposition - Plan for ED Patient: Instructions: ED ARTHRITIS Gout Prescriptions: Oxycodone HCl/Acetaminophen [Percocet 5/325] 1 tablet PO Q6H PRN PRN 3 Days #12 tablet PRN Reason: Pain Transmission Status: Sent to [id number] Referrals: Gianfranco West MD [Primary Care Provider] -
[2020-06-21 08:23] VITALS: BP 149/90; PULSE 88; RESP 18; O2SAT 95
== END 2020-06-21 08:24 | disposition home or self-care (01) ==
LOC: ED 07:14
PROVIDERS: Emergency Provider Emergency Medicine; PCP Family Medicine
DX: M79.671 Pain in right foot (principal); I25.10 Atherosclerotic heart disease of native coronary artery without angina pectoris; I10 Essential (primary) hypertension; Z79.82 Long term (current) use of aspirin; Z79.899 Other long term (current) drug therapy
CPT/HCPCS: 73630; 80048; 84550; 85025; 99283

== ENCOUNTER 2020-12-02 09:55 | Emergency (ER) | payer BC, SELFPAY ==
[2020-11-21 08:38] VITALS: BMI 29.7
[2020-12-02 09:56] VITALS: BP 135/81; PULSE 122; RESP 18; TEMP 36.4; O2SAT 98; BMI 30.1
--- NOTE | 2020-12-02 10:18 | EKG12_ITS ---
Test Reason : Blood Pressure : / mmHG Vent. Rate : 103 BPM Atrial Rate : 103 BPM P-R Int : 166 ms QRS Dur : 108 ms QT Int : 358 ms P-R-T Axes : 063 -43 045 degrees QTc Int : 468 ms Sinus tachycardia Possible Left atrial enlargement Left axis deviation Incomplete right bundle branch block Abnormal ECG Confirmed by LUIS STUBBS, ELBA ([id number]), greeting card editor ELEONORA CHRISTIE ([id number]) on 12/07/2020 6:32:29 AM Referred By: ROMAINE Confirmed By:ELBA SMITH MD
--- NOTE | 2020-12-02 10:25 | ED.DCSUM_ITS ---
- ER Visit Summary Date of Service: 12/02/20 Chief Complaint: [Depression and increased stress] History of Present Illness: The patient is a 65 M [presents to the emergency department stating that he has been under a lot of stress. Patient states that he works every day of the week and cannot remember the last time he had a day off. Patient states that last night he came home and just snapped. Patient apparently broke a spatula and yelled at his . Patient states that he has been drinking and drinks about 4-6 beers a day. Patient states that he is very agitated and oftentimes has no tolerance for people's and aptitude and feels like everybody stupid. Patient also describes some swishing sounds in his left ear like when a vehicle drives by like a telephone pole. Patient denies any falls or head injuries. He states that he had open heart surgery last February. Patient had been having some chest discomfort and was seen at [facility] over a week ago and had a CAT scan of his chest and blood work and everything appeared to be normal. Patient was given albuterol and that seemed to help his symptoms. He denies any fever or cough. Patient describes may be some mild sinus congestion. No body aches or headaches. No COVID-19 exposures. Patient did not know what to do and wanted to come to the ER. He denies feeling suicidal or homicidal. Patient does not want inpatient alcohol detox because he does not feel that he needs it. Patient states he will go 2 to 3 days without drinking. Patient states that his believes a lot of his issues are related to drinking.] Patient denies any headaches. Patient also states that sometimes he will drink the beer in his car while driving. Physical Examination: [HEENT-PERRLA, EOMI. Cranial nerves II through XII grossly intact. TMs clear. Mucous membranes moist. No adenopathy. Cardiovascular-regular rate and rhythm without murmur or ectopy Lungs-clear to auscultation, chest wall stable without crepitus or subcu emphysema Abdomen-normoactive bowel sounds, soft, nontender, no rebound or rigidity, no peritoneal signs. Extremities-intact ?4, normal range of motion, normal pulses, atraumatic] Test Results: [EKG obtained arrival shows sinus rhythm with a ventricular rate of 103 bpm with an incomplete right bundle branch block. CBC with differential showing a 9.8, hemoglobin 13, hematocrit 39, platelet 297. Chemistries unremarkable. LFTs were normal. Troponin is less than 0.015. Alcohol was less than 3.] Emergency Department Course and Treatment: [IV line established on arrival. Patient placed on a quality assurance monitor chassis. I did have patient evaluated by social insurance administrator to arrange some outpatient resources for him. At this point he is not suicidal or homicidal. He does not want voluntary alcohol detox.] Treatment Plan: [Patient will be written off work for 2 days. Patient to follow-up with his primary care physician and resources given by social insurance administrator.] Patient advised to discontinue alcohol use and certainly advised to not drink while driving. Patient will be referred to ENT regarding the ringing in the ears. Disposition: [Discharged home in stable condition] Impression: [Depression Alcohol abuse Tinnitus] This note was generated with [employer] dictation software. It may contain incorrect words, spelling, and punctuation that were not noted in review of the chart prior to signing ED Disposition - Plan for ED Patient: Referrals: Gianfranco West MD [Primary Care Provider] -
[2020-12-02 10:56] LABS: Absolute Neutrophil Count 7.6 X10^3/uL (2.0-7.7); Basophil# 0.08 X10^3/uL; Basophil% 0.8 % (0-1); Eosinophil# 0.14 X10^3/uL; Eosinophils% 1.4 % (0-5); Hematocrit 39.4 % (40-54); Hemoglobin 13.5 g/dL (13.0-16.5); Lymphocyte % 12.3 % (19-41); Mean Corp Hgb Conc 34.3 g/dL (32-36); Mean Corpuscular Hgb 32.4 pg (27.0-32.0); Mean Corpuscular Volume 94.5 fL (80-94); Mean Platelet Vol. 9.2 fl (6.2-12.0); Monocyte% 7.2 % (0-10); NRBC Flagged by Analyzer 0 % (0-5); Neutrophil # 7.61 X10^3/uL (2.7-7.7); Platelet Count 297 K/mm3 (150-450); RBC Distribution Width CV 15.1 % (11.6-14.6); Red Blood Count 4.17 M/mm3 (4.6-6.2); White Blood Count 9.8 K/mm3 (4.4-11.0)
[2020-12-02 11:05] VITALS: BP 111/62; PULSE 92; RESP 14; O2SAT 97
[2020-12-02 11:15] LABS: ALB/GLOB Ratio 0.9 RATIO (0.9-2.4); AST(SGOT) 18 U/L (15-37); Alanine Aminotransfer ALT/SGPT 43 U/L (16-61); Albumin, Serum 3.5 g/dL (3.2-5.0); Alkaline Phosphatase 76 U/L (45-117); Anion Gap 7 (5-15); BUN 13 mg/dL (7-18); BUN/Creat Ratio 12.1 RATIO (10-20); Calcium,Total 9.3 mg/dL (8.5-10.1); Chloride 108 mmol/L (98-107); Creatinine, Serum 1.07 mg/dL (0.70-1.30); EST Glomerular Filtration Rate 74 mL/min (>60); Est Glom Filt Rate - Afr Amer 89 mL/min (>60); Estimated Creatinine Clearance 76.55 ml/min; Globulin 3.7 g/dL (2.2-4.2); Glucose 182 mg/dL (74-106); Protein, Total 7.2 g/dL (6.4-8.2); Sodium Level 138 mmol/L (136-145)
[2020-12-02 11:29] LABS: Alcohol, Blood (Medical)-Serum < 3.0 mg/dL
--- NOTE | 2020-12-02 12:38 | ED.DEP ---
ED Disposition - Plan for ED Patient: Instructions: ED Depression, Tinnitus (Ringing in the Ears) Referrals: Gianfranco West MD [Primary Care Provider] - Pepito Harper MD [STAFF PHYSICIAN] - 3-5 Days
--- NOTE | 2020-12-02 12:49 | CM.ED ---
Social Work Consult: Mental Health Informant: Dr. Key Chief Complaint: I have got too much going on. Marital/Social History: to Coleen Lopez for the past 7 years. Patient reports to have 4 adult daughters that I don't really talk to. Patient reports to talk with my one daughter on Facebook. Living Situation: Lives with spouse. Support/Resources: Denies any active community supports. 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 Denies any issues with comprehension or understanding. Mental Health Treatment/History: Depression, Anxiety. Patient reports to have been prescribed an antidepressant by Dr. West (PCP) but to have ran out a few weeks back. Patient reports it doesn't really help anything anyway. Patient with no history of inpatient psychiatric placement. Triggers/Stressors: Patient reports to work up to 70 hours a week 7 days a week. It is too much. Patient reports to have gotten upset with spouse last evening and to regret this. Coping Skills: Patient having difficulty identifying coping skills as patient reports to only be home for an hour before patient goes to sleep and gets up in the morning again to go to work. Patient does identifying drinking 4-6 beers daily. Substance Abuse/use: Patient reports to consume 4-6 12ounce cans of beer daily on my way home from work. Patient reports to drink a few beers every day when driving home from work. This social media job titles inquiring as to when patient started drinking and driving, patient states oh 20 years or so. Patient reports I know my limits. This social media job titles was able to facilitate conversation about risk and concerns of patient drinking and driving. Patient reports understanding and did state you have a good point when this social media job titles pointed out that patient might have an off day and the alcohol could impact patient differently. Patient denies any other substance abuse/use. Patient denies desire for detox or substance abuse services. Risk to Self/Others: Patient reports to have felt like giving up. Patient reports to have thought about sitting in the garage with the car running and drink till I don't wake up. Patient denies intent to complete suicide. Patient reports I wouldn't want to do that to my family. Patient also forward focused on talking about long-term goals/dreams along with things patient wants to work towards in the next few months such as working less. Patient denies any self harming behaviors or homicidal thoughts, plans, intents, Mental Status Exam: A&Ox3 Appearance/General Behavior: Clean. Appropriate. Calm. Mood/Affect: Pleasant and engaged affect. Communication Pattern: Responds to questions. Thought Process: Appropriate. Judgement: Fair Assessment: Met with patient in room. Introduced self and social media job titles role. Patient agreeable to speak with this social media job titles. Patient reports reason for coming to the ED today was due to me exploding last night. Patient reports to have been getting overwhelmed with how many hours patient puts in at work and dealing with idiots at work. Patient reports to have been upset and came home last evening and broke a spatula and probably ruined dinner. Patient reports to have woken up this morning with regret about how I acted. Patient reports to have left a note for patient spouse saying I am sorry and decided to reach out for help. Patient reports I just need some time off. Patient reports limited ability to be able to take time off at work due to short staffing. Patient reports to have hope that patient will be able to get a few days off. This social media job titles reporting plan to inquire about work excuse for patient this weekend for patient own mental health. Patient reports to this social media job titles to have thoughts of wanting to give up weekly with no intent or specific plan. Patient does admit to have thought about sitting in car in garage but to often times not think about how to complete suicide. Patient does admit to having firearms in the home. Patient reports to have a handgun that has never been shot, you know self defense. This social media job titles voicing concern for patient safety with firearms in the home. Patient reports it would be too messy to shoot myself. Patient is not open to having someone else lock up the firearm as patient reports concerns for spouses own mental health. This social media job titles stressed multiple times how it would be a good idea for patient to not have a firearm in the home due to patient own risk factors. Patient states I will go put the ammo up somewhere hard to get to. This social media job titles pointed out to patient that patient will still know where the ammo is. Patient states maybe I will forget where it is. Patient denies any other lethal means in the home. Patient is open to this social media job titles speak with patient spouse, Coleen after 2:30pm today. Patient states that Coleen will be working until 2:30. Patient open to this social media job titles providing patient with local community resources. Patient unable to commit to counseling as I work all the time. Patient reports plan to speak with boss today or Saturday on patient working fewer hours to start working towards long-term. Patient states I like what I do, I just need to not do it so much. This social media job titles provided patient with list of counseling agencies, Crisis hotline number and information on [facility] Behavioral Health program. Patient plans to return to home today and is comfortable with plan for discharge. Patient encouraged multiple times to not drink and drive and educated on laws in regards to drinking and driving. Patient reports plan from leaving [facility] today will be to drive around and look at other options for work. Active support and listening provided throughout conversation. Patient does not present intoxicated and Alcohol level came back as < 3.0. Collaborating with Dr. Key. Plan is for patient to discharge to community. PLAN: Discharge to home with this social media job titles calling patient spouse as a later time today. Will follow up with patient spouse this afternoon. Vianey ELLSWORTH, BETHANY
[2020-12-02 13:10] VITALS: BP 126/75; PULSE 68; RESP 15; O2SAT 99
--- NOTE | 2020-12-02 15:13 | CM.ED ---
Social Work Telephone call to patient spouse, Coleen. This social psychologist counseled Coleen on lethal means. Coleen plans to lock the gun up. Coleen with no current questions. Support and active listening provided. Vianey ELLSWORTH, BETHANY
== END 2020-12-02 13:11 | disposition home or self-care (01) ==
LOC: ED 11:10
PROVIDERS: Emergency Provider Emergency Medicine; PCP Family Medicine
DX: F32.9 Major depressive disorder, single episode, unspecified (principal); F10.10 Alcohol abuse, uncomplicated; H93.12 Tinnitus, left ear; I25.10 Atherosclerotic heart disease of native coronary artery without angina pectoris; I10 Essential (primary) hypertension; E78.00 Pure hypercholesterolemia, unspecified; Z79.82 Long term (current) use of aspirin
CPT/HCPCS: 80053; 82077; 84484; 85025; 93005; 99284

== ENCOUNTER 2021-01-01 19:16 | Emergency (ER) | payer BC, SELFPAY ==
[2020-12-08 09:20] VITALS: BMI 30.4
[2021-01-01 19:18] VITALS: BP 128/67; PULSE 105; RESP 20; TEMP 36.5; O2SAT 94; BMI 30.9
--- NOTE | 2021-01-01 19:32 | ED.DCSUM_ITS ---
History of Present Illness Chief Complaint: Other, Pain/Inj Informant: Patient Onset: Yesterday Context: Gradual Onset Current Severity: Moderate Maximum Severity: Moderate Narrative: Patient presents with multijoint pain and aches. He states this flare started yesterday. He had similar flares in the past and it was attributed to gout. He saw a maintenance foreman in [place] for 1 visit and is actually scheduled to go back next week. Patient complains of pain to his bilateral hands, knees, ankles. He denies redness or significant swelling. He states usually he is treated with a course of steroids and symptoms improved. - Past Medical History (1) Atherosclerotic heart disease of [place] coronary artery without angina pectoris Status: Chronic Comment: Moderate per cath 2005. 12/31/2019: FFR in the LAD was 0.77 which is consistent with significant stenoses. 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 (2) Essential hypertension Status: Chronic (3) History of coronary artery bypass surgery Status: Chronic Comment: CABG x4- FRAUSTO-LAD, ROBER-Diag, SVG-OM, SVG-R posterolateral branch @ [facility] 03/08/20 (4) Pure hypercholesterolemia Status: Chronic Past Medical History - Allergies and Home Meds Allergies/Adverse Reactions: Allergies Penicillins Allergy (Verified 01/01/21 19:17) Swelling Primary Care Physician: Gianfranco West MD [Primary Care Provider] - Prior records reviewed: Yes Surgical History: noncontributory Lives: Spouse/ Significant Other Smoking Status: Former smoker Review of Systems General: Denies: Chills, Fever Eyes: Denies: Visual changes - bilaterally ENT: Denies: Bilateral ear pain Cardiovascular: Denies: Chest pain Respiratory: Denies: Dyspnea, Cough Gastrointestinal: Denies: Abdominal pain, Vomiting, Diarrhea Genitourinary: Denies: Dysuria Musculoskeletal: Reports: Extremity Pain Skin: Denies: Rash, Wounds Neurological: Denies: Headache Hematologic: Denies: Easy bruising, Easy bleeding Allergy: Denies: Uticaria Physical Exam Vital Signs/Narrative: Vital Signs Temp Pulse Resp BP Pulse Ox 01/01/21 19:18 97.7 F L 105 H 20 H 128/67 H 94 Inital Vital Signs reviewed: Yes General: Well nourished, Well developed Head: Normocephalic ENT: Moist mucous membranes Neck: Supple Cardiovascular: Regular rate, Regular rhythm Respiratory: No distress, CTA bilaterally Abdomen: Soft, Nontender Extremities: - - Tenderness to palpation bilateral hands, knees, ankles. No focal erythema. No focal joint swelling. Skin: Normal color Neurological: Alert, Oriented x3 Psychological: Normal affect Diagnostic/Tx/Re-eval - Medical Decision Making I discussed with patient and that he may have some form of a polyarticular arthritis as opposed to true gout as he does seem to have multiple joints involved. Regardless treatment at this point is still the same. He was treated with a prednisone taper and will follow with a specialist next week. ED Disposition - Plan for ED Patient: Disposition: Home or Assisted Living Diagnosis: Polyarticular arthritis Instructions: ED Gout Prescriptions: Prednisone 10 mg PO DAILY #63 tablet Additional Instructions: Follow-up with your specialist as scheduled.
[2021-01-01] MEDS: predniSONE 20 MG Tablet 60 MG PO (19:39)
[2021-01-01 19:53] VITALS: BP 137/72; PULSE 94; RESP 18; O2SAT 96
== END 2021-01-01 19:53 | disposition home or self-care (01) ==
LOC: ED 19:46
PROVIDERS: Emergency Provider Emergency Medicine; PCP Family Medicine
DX: M13.89 Other specified arthritis, multiple sites (principal); I25.10 Atherosclerotic heart disease of native coronary artery without angina pectoris; Z95.1 Presence of aortocoronary bypass graft; Z87.891 Personal history of nicotine dependence
CPT/HCPCS: 99283

== ENCOUNTER → 2021-04-05 09:56 | Outpatient (CLI) | payer BC, SELFPAY ==
[2021-04-05 12:33] LABS: Hemoglobin A1c 6.8 % (3.8-5.6)
[2021-04-05 12:43] LABS: Anion Gap 9 (5-15); BUN 14 mg/dL (7-18); BUN/Creat Ratio 15.4 RATIO (10-20); Chloride 105 mmol/L (98-107); Cholesterol 161 mg/dL (200); Creatinine, Serum 0.91 mg/dL (0.70-1.30); EST Glomerular Filtration Rate 89 mL/min (>60); Est Glom Filt Rate - Afr Amer 108 mL/min (>60); Glucose 142 mg/dL (74-106); High Density Lipoprotein 62 mg/dL; Potassium 4.3 mmol/L (3.5-5.1); Sodium Level 139 mmol/L (136-145); Triglycerides 271 mg/dL; Very Low Density Lipoprotein 54 mg/dL (5-40)
== END ==
PROVIDERS: PCP Family Medicine; Referring Provider Family Medicine; Visit Provider Family Medicine
DX: E11.9 Type 2 diabetes mellitus without complications (principal)
CPT/HCPCS: 36415; 80048; 80061; 83036

== ENCOUNTER → 2021-07-05 10:28 | Outpatient (CLI) | payer BC, SELFPAY ==
[2021-07-05 12:45] LABS: Anion Gap 7 (5-15); BUN 14 mg/dL (7-18); BUN/Creat Ratio 16.2 RATIO (10-20); Calcium,Total 9.4 mg/dL (8.5-10.1); Chloride 104 mmol/L (98-107); Cholesterol 154 mg/dL (200); Creatinine, Serum 0.86 mg/dL (0.70-1.30); EST Glomerular Filtration Rate 94 mL/min (>60); Est Glom Filt Rate - Afr Amer 114 mL/min (>60); Glucose 125 mg/dL (74-106); High Density Lipoprotein 58 mg/dL; Potassium 4.8 mmol/L (3.5-5.1); Sodium Level 139 mmol/L (136-145); Triglycerides 162 mg/dL; Very Low Density Lipoprotein 32 mg/dL (5-40)
== END ==
PROVIDERS: PCP Family Medicine; Referring Provider Family Medicine; Visit Provider Family Medicine
DX: E11.9 Type 2 diabetes mellitus without complications (principal)
CPT/HCPCS: 36415; 80048; 80061

== ENCOUNTER 2021-08-16 09:21 | Emergency (ER) | payer BC, SELFPAY ==
[2021-08-16 09:22] VITALS: BP 170/98; PULSE 80; RESP 19; TEMP 35.5; O2SAT 96; BMI 31.8
--- NOTE | 2021-08-16 09:36 | CT_ITS ---
STUDY: CT ABDOMEN AND PELVIS WITH CONTRAST REASON FOR EXAM: Male, 66 years old. Left side pain, distention -- IV PO Contrast RADIATION DOSAGE (If Supplied By Facility): CTDIvol = ( 16.65 ) mGy, DLP = ( 1032.97 ) mGycm TECHNIQUE: Transaxial images were obtained from the dome of the diaphragm to the symphysis pubis with oral contrast. Oral and amp; IV GASTROGRAFIN and amp; 100ML ISOVUE 370 was administered. Sagittal and coronal images were reconstructed. Individualized dose optimization techniques were used for this CT. COMPARISON: None. FINDINGS: The visualized lung bases are unremarkable. Coronary artery calcification. There is a 4 cm x 3.6 cm well-defined fluid collection along the right side of the cardiac border. This may represent a localized pericardial effusion versus pericardial cyst. There is decreased attenuation of the liver consistent with steatosis. There is a 1.7 cm cyst in the central portion of the right lobe of the liver. Normal gallbladder and extrahepatic biliary system. Normal spleen. Normal pancreas. Normal bilateral adrenal glands. 1 cm cyst in the inferior lateral aspect of the right kidney. Normal left kidney. There is a small hiatal hernia. Normal small intestine. Moderate amount of fecal material is seen in the colon. The appendix is visualized and appears normal. There is diffuse atherosclerotic calcification of the abdominal aorta and its major visceral branches, without a demonstrated aneurysm. Normal inferior vena cava. Normal retroperitoneum. Diffuse bladder wall thickening. The prostate measures 4 cm x 4.4 cm. There is a small umbilical hernia containing fat. There are diffuse degenerative changes of the visualized lumbar spine. CT/Abdomen/Pelvis WITH Contrast IMPRESSION: Diffuse fatty infiltration of the liver. 1.7 cm cyst in the central portion of the right lobe of the liver. Diffuse bladder wall thickening. Electronically Signed: Nba Mccabe MD at 11:52 EDT , Service support ,
--- NOTE | 2021-08-16 09:37 | EDS_ITS ---
HPI HPI - GI History of Present Illness Chief Complaint: Abd Pain Informant: patient Narrative Narrative: 2-month history of increasing abdominal distention intermittent pain left side abdomen. Symptoms worsen over the last 2 days. He states he is having normal daily bowel movements with no changes in color or consistency. No urinary symptoms. 2 weeks ago had nausea event however no vomiting. Denied any increasing burping. He has positive flatus. No abdominal surgeries in the past. States incomplete colonoscopy approximately 5 years ago done in [place] due to inadequate bowel prep. He did not follow back up for another colonoscopy since then. He has had prior ones before 5 years ago. States 2 days mild cough secondary to postnasal drainage. No fevers. No headaches. No loss of taste or smell. Covid vaccinated. History of coronary bypass over a year ago for vessels. Currently on aspirin. Hypertension, diabetes, hypercholesterolemia history. Prior similar symptoms: No PFSH PFSH Medical History (Updated 08/16/21 @ 13:[address] Pradip Turcios, DO) Atherosclerotic heart disease of [place] coronary artery without angina pectoris Essential hypertension IBS (irritable bowel syndrome) Pure hypercholesterolemia Tobacco abuse Home Medications nitroglycerin 0.4 mg sublingual tablet 0.4 mg SUBLINGUAL Q5-15M PRN #25 tab 01/05/20 [Rx Last Taken Unknown] cholecalciferol (vitamin D3) 25 mcg (1,000 unit) tablet 2,000 unit PO DAILY tab 03/24/20 [History Last Taken Unknown] metformin 500 mg tablet 500 mg PO DAILY 03/24/20 [History Last Taken Unknown] aspirin 81 mg chewable tablet 81 mg PO DAILY@0800 tab 04/07/20 [History Last Taken Unknown] metoprolol tartrate 50 mg tablet 50 mg PO BID #180 tab 08/16/20 [Rx Last Taken Unknown] albuterol sulfate 90 mcg/actuation aerosol inhaler 2 puff INHALATION Q6H PRN 11/21/20 [History Last Taken Unknown] allopurinol 100 mg tablet 100 mg PO DAILY tab 11/21/20 [History Last Taken Unknown] losartan 50 mg tablet See Rx Instructions .ROUTE .COMPLEX #90 tab 11/21/20 [Rx Last Taken Unknown] pravastatin 80 mg tablet 80 mg PO QHS #90 tab 06/08/21 [Rx Last Taken Unknown] adalimumab 40 mg/0.8 mL subcutaneous syringe kit 40 mg SUBCUT Q2W 07/05/21 [History Last Taken Unknown] coenzyme Q10 100 mg capsule 200 mg PO DAILY cap 07/05/21 [History Last Taken Unknown] prednisone 10 mg tablet 10 mg PO BID tab 07/05/21 [History Last Taken Unknown] prednisone 5 mg PO BID 08/16/21 [History Last Taken Unknown] Allergy/AdvReac Type Severity Reaction Status Date / Time Penicillins Allergy Swelling Verified 08/16/21 09:22 Family History Father Heart disease Mother Heart disease Surgical History History of coronary artery bypass surgery (~03/08/20) History of foot surgery History of hernia repair History of left heart catheterization (12/31/19) Social History Smoking Status: Former smoker alcohol intake: current details: daily substance use type: does not use ROS ROS ED Constitutional Constitutional ED: Denies chills, fever(s) or sweats Eyes Eyes: Denies change in vision ENT ENT ED: Denies dysphagia or sore throat Cardiovascular Cardiovascular: Denies chest pain, leg edema, palpitations or racing heartbeat Respiratory/Chest Respiratory/Chest: Reports cough; Denies dyspnea or dyspnea on exertion Gastrointestinal Gastrointestinal: Reports abdominal pain; Denies diarrhea, nausea or vomiting Genitourinary Genitourinary ED: Denies dysuria, hematuria or urinary frequency Musculoskeletal Musculoskeletal: Denies back pain, extremity pain or neck pain Integumentary Denies rash or wounds Neurologic Neurologic: Denies headache(s), paresthesias or weakness EXAM Physical Exam Const Vital Signs: 08/16/21 09:22 08/16/21 12:22 08/16/21 13:54 Temperature 96 F L Temperature Source Temporal Pulse Rate 80 67 72 Respiratory Rate 19 H 16 15 Blood Pressure 170/98 H 140/86 H 142/82 H Blood Pressure Mean 122 104 Pulse Ox 96 97 98 Oxygen Delivery Method Room Air Room Air Positive well nourished and well developed General Appearance ED: well developed and NAD HEENT Reports moist mucous membranes normocephalic and atraumatic Eyes PERRL, EOMs intact bilaterally and conjunctivae normal General Eye ED: Yes normal appearance of both eyes Neck no lymphadenopathy and supple General: Negative for tenderness Chest Wall Chest: Negative for tenderness Resp normal respiratory effort and normal air movement Effort and Inspection: symmetric chest movement; Negative for respiratory distress Cardio regular rate, regular rhythm and no murmurs Peripheral Pulses: pulses 2+ throughout GI normal to inspection, nondistended, normoactive bowel sounds and non-tender GI Narrative: Tender palpation left side of abdomen. No ecchymosis. Negative Salazar's or McBurney's tenderness. No hernias palpated. Inspection: abdominal distention Auscultation: normoactive bowel sounds Palpation: Negative for guarding or rebound tenderness present Back/Spine no CVA tenderness and no thoracic nor lumbar tenderness Extremity normal to inspection General Extremety ED: Negative for edema or tenderness General Extremity: Negative for edema Neuro oriented x3 and no sensory deficits noted Sensorium / Orientation: awake and alert Skin no rashes or lesions noted and no wounds MDM MDM MDM Narrative Medical decision making narrative: Patient tender left side abdomen distended with normal bowel sounds. With his cough symptoms chest x-ray obtained negative. Abdominal labs are all normal. Urine noted hematuria. Contrast CT scan obtained of the abdomen due to reporting increasing distention. Results per radiology enlarged prostate with thickened bladder. Remote tobacco history. There is hematuria. No other findings splinting for his left-sided abdominal pain. Colon was normal. Initially declined pain medicines later requested for which morphine and Zofran was given. Discussed patient findings, with abnormal prostate and bladder is given follow-up with urology. also discussed will need GI follow-up which he states his sees Dr. Lara For which they will make an appointment. He is concerned of a negative work-up for his left-sided ab dominal pain at this time. There is no rash. I did discuss with his PCP Dr. West, updated on results and findings and referrals. He will follow-up as an outpatient to make sure referrals were made. All questions were answered. Lab Data Attestation: I reviewed the patient's lab results. Labs: Laboratory Results - last 24 hr 08/16/21 08/16/21 08/16/21 09:50 09:50 09:50 WBC 8.3 RBC 3.95 L Hgb 13.0 Hct 38.5 L MCV 97.5 H MCH 32.9 H MCHC 33.8 RDW Std Deviation 51.8 H RDW Coeff of Marlene 14.5 Plt Count 268 MPV 9.5 Immature Gran % (Auto) 0.500 Neut % (Auto) 73.8 H Lymph % (Auto) 16.2 L [place] % (Auto) 6.5 Eos % (Auto) 2.4 Baso % (Auto) 0.6 Absolute Neuts (auto) 6.1 Absolute Lymphs (auto) 1.34 Nucleated RBC % 0 Sodium 139 Potassium 4.3 Chloride 106 Carbon Dioxide 25.0 Anion Gap 8 BUN 12 Creatinine 0.94 Estim Creat Clear Calc 85.99 Est GFR (MDRD) Af Amer 104 Est GFR (MDRD) Non-Af 86 BUN/Creatinine Ratio 12.8 Glucose 140 H Calcium 8.8 Total Bilirubin 0.50 Direct Bilirubin 0.14 AST 25 ALT 60 Alkaline Phosphatase 59 Total Protein 6.9 Albumin 3.3 Globulin 3.6 Albumin/Globulin Ratio 0.9 Lipase 187 Urine Color Urine Clarity Urine pH Ur Specific [place] Urine Protein Urine Glucose (UA) Urine Ketones Urine Occult Blood Urine Nitrite Urine Bilirubin Urine Urobilinogen Ur Leukocyte Esterase Urine RBC Urine WBC Ur Squamous Epith Cells Urine Bacteria Urine Mucus 08/16/21 10:10 WBC RBC Hgb Hct MCV MCH MCHC RDW Std Deviation RDW Coeff of Marlene Plt Count MPV Immature Gran % (Auto) Neut % (Auto) Lymph % (Auto) [place] % (Auto) Eos % (Auto) Baso % (Auto) Absolute Neuts (auto) Absolute Lymphs (auto) Nucleated RBC % Sodium Potassium Chloride Carbon Dioxide Anion Gap BUN Creatinine Estim Creat Clear Calc Est GFR (MDRD) Af Amer Est GFR (MDRD) Non-Af BUN/Creatinine Ratio Glucose Calcium Total Bilirubin Direct Bilirubin AST ALT Alkaline Phosphatase Total Protein Albumin Globulin Albumin/Globulin Ratio Lipase Urine Color Yellow Urine Clarity Clear Urine pH 6.0 Ur Specific [place] 1.010 Urine Protein Negative Urine Glucose (UA) Normal Urine Ketones Negative Urine Occult Blood 10 H Urine Nitrite Negative Urine Bilirubin Negative Urine Urobilinogen Normal Ur Leukocyte Esterase Negative Urine RBC 0 SEEN Urine WBC 0 SEEN Ur Squamous Epith Cells 0 SEEN Urine Bacteria 0 SEEN Urine Mucus 0 SEEN Radiography Diagnostic Testing: Radiology Impression Abdomen/Pelvis CT 08/16/21 09:36 IMPRESSION: Diffuse fatty infiltration of the liver. 1.7 cm cyst in the central portion of the right lobe of the liver. Diffuse bladder wall thickening. Electronically Signed: Nba Mccabe MD at 11:52 EDT , Service support , Chest X-Ray 08/16/21 10:05 IMPRESSION: Stable mild increased interstitial markings at the lung bases suggestive of basilar scarring. Electronically Signed: Nba Mccabe MD at 10:23 EDT , Service support , Discharge Plan Triage Chief Complaint: Abd Pain ED Provider: Pradip Turcios Dx/Rx/DC Orders Clinical Impression: Abdominal pain, Enlarged prostate, Hematuria, URI (upper respiratory infection) Instructions: Abdominal Pain, ED Hematuria, ED URI, Viral, No Abx (Adult) Prescriptions: No Action allopurinol 100 mg tablet 100 mg PO DAILY RF: 0 albuterol sulfate [Ventolin HFA] 90 mcg/actuation HFA aerosol inhaler 2 puff INHALATION Q6H PRN (Reason: Wheezing) RF: 0 metformin 500 mg tablet 500 mg PO DAILY RF: 0 coenzyme Q10 [Co Q-10] 100 mg capsule 200 mg PO DAILY RF: 0 prednisone 10 mg tablet 10 mg PO BID RF: 0 Humira 40 mg/0.8 mL syringe kit 40 mg subcut Q2W RF: 0 cholecalciferol (vitamin D3) 25 mcg (1,000 unit) tablet 2,000 unit PO DAILY RF: 0 aspirin 81 mg tablet,chewable 81 mg PO DAILY@0800 RF: 0 prednisone 5 mg tablet 5 mg PO BID RF: 0 nitroglycerin 0.4 mg tablet, sublingual 0.4 mg SUBLINGUAL Q5-15M PRN (Reason: chest pain) Qty: 25 RF: 1 metoprolol tartrate 50 mg tablet 50 mg PO BID Qty: 180 RF: 3 losartan 50 mg tablet See Rx Instructions .ROUTE .COMPLEX Qty: 90 RF: 3 pravastatin 80 mg tablet 80 mg PO QHS Qty: 90 RF: 4 Primary Care Provider: Gianfranco West Referrals: Manuel Mares MD [STAFF PHYSICIAN] - 3-5 Days Gianfranco West MD [Primary Care Provider] - 2 Days Alek Lara MD [NON-STAFF] - 3-5 Days Activity Restrictions/Additional Instructions: CT scan notable for enlarged prostate and thickened bladder wall. Follow-up with urology. Follow-up with GI for abdominal pain symptoms. Follow-up with your PCP for discussion. Disposition Disposition: Home, Self Care Discharge Date/Time: 08/16/21 13:55
[2021-08-16 10:04] LABS: Absolute Lymphocyte Count 1.34 X10^3/uL (0.83-4.51); Absolute Neutrophil Count 6.1 X10^3/uL (2.0-7.7); Basophil# 0.05 X10^3/uL; Basophil% 0.6 % (0-1); Eosinophils% 2.4 % (0-5); Hematocrit 38.5 % (40-54); Lymphocyte # 1.34 X10^3/ul (0.83-4.51); Lymphocyte % 16.2 % (19-41); Mean Corp Hgb Conc 33.8 g/dL (32-36); Mean Corpuscular Hgb 32.9 pg (27.0-32.0); Mean Corpuscular Volume 97.5 fL (80-94); Mean Platelet Vol. 9.5 fl (6.2-12.0); Monocyte# 0.54 X10^3/uL; Monocyte% 6.5 % (0-10); NRBC Flagged by Analyzer 0 % (0-5); Neutrophil # 6.12 X10^3/uL (2.7-7.7); Neutrophil % 73.8 % (47-70); Platelet Count 268 K/mm3 (150-450); RBC Distribution Width CV 14.5 % (11.6-14.6); RBC Distribution Width SD 51.8 fl (35.1-43.9); Red Blood Count 3.95 M/mm3 (4.6-6.2); White Blood Count 8.3 K/mm3 (4.4-11.0)
--- NOTE | 2021-08-16 10:05 | RAD_ITS ---
STUDY: X-RAY CHEST REASON FOR EXAM: Male, 66 years old. Cough TECHNIQUE: Single AP portable view of the chest. COMPARISON: Comparison is made with prior study dated 02/20/2020. FINDINGS: Hyperinflation. Stable mild increased markings at the lung bases suggestive of scarring. There is no demonstrated pleural abnormality. Sternal cerclage wires and vascular clips are present from a prior sternotomy and coronary artery bypass graft procedure (CABG). Normal mediastinum and james. Normal visualized pulmonary arteries. There is atherosclerotic tortuosity of the aortic arch and descending thoracic aorta. There are diffuse degenerative changes of the visualized thoracic spine. Normal visualized ribs, clavicles, and shoulders. There is no demonstrated abnormality of the visualized soft tissue structures of the upper abdomen. RAD/Chest 1 View (Portable) IMPRESSION: Stable mild increased interstitial markings at the lung bases suggestive of basilar scarring. Electronically Signed: Nba Mccabe MD at 10:23 EDT , Service support ,
[2021-08-16 10:20] LABS: ALB/GLOB Ratio 0.9 RATIO (0.9-2.4); AST(SGOT) 25 U/L (15-37); Alanine Aminotransfer ALT/SGPT 60 U/L (16-61); Albumin, Serum 3.3 g/dL (3.2-5.0); Alkaline Phosphatase 59 U/L (45-117); Anion Gap 8 (5-15); BUN 12 mg/dL (7-18); BUN/Creat Ratio 12.8 RATIO (10-20); Bilirubin, Direct 0.14 mg/dL (0.00-0.30); Calcium,Total 8.8 mg/dL (8.5-10.1); Chloride 106 mmol/L (98-107); Creatinine, Serum 0.94 mg/dL (0.70-1.30); EST Glomerular Filtration Rate 86 mL/min (>60); Est Glom Filt Rate - Afr Amer 104 mL/min (>60); Estimated Creatinine Clearance 85.99 ml/min; Globulin 3.6 g/dL (2.2-4.2); Glucose 140 mg/dL (74-106); Potassium 4.3 mmol/L (3.5-5.1); Protein, Total 6.9 g/dL (6.4-8.2); Sodium Level 139 mmol/L (136-145)
[2021-08-16 10:30] LABS: Bacteria 0 SEEN /hpf (None Seen); Mucous, Urine 0 SEEN /hpf (<or=2+); Red Blood Cells-Urine 0 SEEN /hpf (0-5); Squamous Epithelial Cells - UA 0 SEEN /hpf (0-5); White Blood Cells 0 SEEN /hpf (0-5)
[2021-08-16 10:33] LABS: Color, Urine Yellow (Yellow); Glucose, Dipstick Normal (Normal); Ketone-Dipstick Negative (Negative); Leukocyte Esterase-Dipstick Negative /ul (Negative); Nitrite-Dipstick Negative (Negative); Occult Blood-Urine 10 /ul (Negative); Protein-Dipstick Negative (Negative); Urine Bilirubin Dipstick Negative (Negative); Urine Clarity Clear (Clear); Urine Urobilinogen Normal (Normal)
[2021-08-16 10:57] LABS: Lipase 187 U/L (73-393)
[2021-08-16 12:22] VITALS: BP 140/86; PULSE 67; RESP 16; O2SAT 97
[2021-08-16] MEDS: Ondansetron 4 MG/2 ML Vial IV (12:23)
[2021-08-16] MEDS: Morphine 4 MG/ML Syringe IV (12:23)
[2021-08-16 13:54] VITALS: BP 142/82; PULSE 72; RESP 15; O2SAT 98
== END 2021-08-16 13:55 | disposition home or self-care (01) ==
PROVIDERS: Emergency Provider Emergency Medicine; PCP Family Medicine
DX: R10.9 Unspecified abdominal pain (principal); N40.0 Benign prostatic hyperplasia without lower urinary tract symptoms; R31.9 Hematuria, unspecified; J06.9 Acute upper respiratory infection, unspecified; I25.10 Atherosclerotic heart disease of native coronary artery without angina pectoris; E11.9 Type 2 diabetes mellitus without complications; E78.00 Pure hypercholesterolemia, unspecified; I10 Essential (primary) hypertension; Z79.52 Long term (current) use of systemic steroids; Z79.82 Long term (current) use of aspirin; Z79.84 Long term (current) use of oral hypoglycemic drugs; Z87.891 Personal history of nicotine dependence; Z95.1 Presence of aortocoronary bypass graft; Z79.899 Other long term (current) drug therapy
CPT/HCPCS: 71045; 74177; 80053; 81001; 82248; 83690; 85025; 96374; 96375; 99284; Q9967; A4216; J2405

== ENCOUNTER 2021-08-18 14:51 | Emergency (ER) | payer BC, SELFPAY ==
[2021-08-18] VITALS (7 sets, daily range): BP systolic 134–173; BP diastolic 79–95; PULSE 77–100; RESP 10–22; TEMP 37.4; O2SAT 92–96; BMI 33.1
--- NOTE | 2021-08-18 15:12 | EKG12_ITS ---
Test Reason : CP Blood Pressure : / mmHG Vent. Rate : 102 BPM Atrial Rate : 102 BPM P-R Int : 168 ms QRS Dur : 122 ms QT Int : 372 ms P-R-T Axes : 042 -87 040 degrees QTc Int : 484 ms Sinus tachycardia Right bundle branch block Left anterior fascicular block Bifascicular block Abnormal ECG Confirmed by KEVIN STUBBS, TANIA ([id number]), make up editor MARCELLO ASH ([id number]) on 08/21/2021 1:14:46 PM Referred By: ERNESTINE Confirmed By:TANIA BROWN MD
[2021-08-18 15:33] LABS: Absolute Lymphocyte Count 1.48 X10^3/uL (0.83-4.51); Absolute Neutrophil Count 4.8 X10^3/uL (2.0-7.7); Basophil# 0.03 X10^3/uL; Basophil% 0.4 % (0-1); Eosinophil# 0.11 X10^3/uL; Eosinophils% 1.6 % (0-5); Hemoglobin 12.8 g/dL (13.0-16.5); Lymphocyte # 1.48 X10^3/ul (0.83-4.51); Lymphocyte % 21.1 % (19-41); Mean Corp Hgb Conc 34.6 g/dL (32-36); Mean Corpuscular Hgb 33.2 pg (27.0-32.0); Mean Corpuscular Volume 95.9 fL (80-94); Mean Platelet Vol. 9.2 fl (6.2-12.0); Monocyte# 0.57 X10^3/uL; Monocyte% 8.1 % (0-10); NRBC Flagged by Analyzer 0 % (0-5); Neutrophil # 4.78 X10^3/uL (2.7-7.7); Neutrophil % 68.2 % (47-70); Platelet Count 273 K/mm3 (150-450); RBC Distribution Width CV 14.5 % (11.6-14.6); RBC Distribution Width SD 50.9 fl (35.1-43.9); Red Blood Count 3.86 M/mm3 (4.6-6.2)
--- NOTE | 2021-08-18 15:41 | ED.VIS.GI ---
HPI HPI - GI History of Present Illness Chief Complaint: Chest Pain Detail of Chief Complaint: Abdominal bloating and weight gain Informant: patient and spouse/S.O. Abdominal Pain/Flank Pain Onset: Weeks Context: Gradual Onset Timing: Intermittent Quality: Aching and Dull Location: LUQ and LLQ Current Severity: Mild Maximum Severity: Mild Nausea/Vomiting/Emesis GI Symptom: Negative for Nausea and Vomiting Diarrhea/Melena/Hematochezia GI Symptom: Negative for Diarrhea, Melena and Hematochezia Associated Symptoms Associated Symptoms: Negative for Dysuria, Frequency and Hematuria Narrative Narrative: 61-year-old male history of quadruple bypass, prior inguinal hernia repair, pulmonary fibrosis, diabetes and prior pneumonia with empyema for which she had a chest tube. Patient states he has had abdominal bloating going on he was actually in the ER several days ago and extensive work-up which was basically unremarkable including CAT scan of his abdomen and chest x-ray and he was instructed to follow-up with his primary care physician. He is also recently been on prednisone is being tapered off of those currently. He states that about a 14 pound weight gain in the last several weeks. He denies vomiting, diarrhea or melena. He is urinate without difficulty. Prior similar symptoms: Yes Recent Illness/Hospitalization: No [facility] Medical History (Updated 08/18/21 @ 18:[address] Wayne Blanco MD) Atherosclerotic heart disease of [place] coronary artery without angina pectoris Essential hypertension IBS (irritable bowel syndrome) Pure hypercholesterolemia Tobacco abuse Home Medications nitroglycerin 0.4 mg sublingual tablet 0.4 mg SUBLINGUAL Q5-15M PRN #25 tab 01/05/20 [Rx Last Taken Unknown] cholecalciferol (vitamin D3) 25 mcg (1,000 unit) tablet 2,000 unit PO DAILY tab 03/24/20 [History Last Taken Unknown] metformin 500 mg tablet 500 mg PO DAILY 03/24/20 [History Last Taken Unknown] aspirin 81 mg chewable tablet 81 mg PO DAILY@0800 tab 04/07/20 [History Last Taken Unknown] metoprolol tartrate 50 mg tablet 50 mg PO BID #180 tab 08/16/20 [Rx Last Taken Unknown] albuterol sulfate 90 mcg/actuation aerosol inhaler 2 puff INHALATION Q6H PRN 11/21/20 [History Last Taken Unknown] allopurinol 100 mg tablet 100 mg PO DAILY tab 11/21/20 [History Last Taken Unknown] losartan 50 mg tablet See Rx Instructions .ROUTE .COMPLEX #90 tab 11/21/20 [Rx Last Taken Unknown] pravastatin 80 mg tablet 80 mg PO QHS #90 tab 06/08/21 [Rx Last Taken Unknown] adalimumab 40 mg/0.8 mL subcutaneous syringe kit 40 mg SUBCUT Q2W 07/05/21 [History Last Taken Unknown] coenzyme Q10 100 mg capsule 200 mg PO DAILY cap 07/05/21 [History Last Taken Unknown] prednisone 2.5 mg PO DAILY 08/16/21 [History Last Taken Unknown] Allergy/AdvReac Type Severity Reaction Status Date / Time Penicillins Allergy Swelling Verified 08/18/21 14:51 Family History Father Heart disease Mother Heart disease Surgical History History of coronary artery bypass surgery (~03/08/20) History of foot surgery History of hernia repair History of left heart catheterization (12/31/19) Social History Smoking Status: Former smoker alcohol intake: current details: daily substance use type: does not use ROS ROS ED ROS Narrative Weight gain. Abdominal pain. Review of Systems ROS Unobtainable: Denies due to encephalopathy Constitutional Constitutional ED: Denies chills or fever(s) ENT ENT ED: Denies ear pain Cardiovascular Cardiovascular: Denies chest pain Respiratory/Chest Respiratory/Chest: Denies cough or dyspnea Gastrointestinal Gastrointestinal: Reports abdominal pain; Denies nausea or vomiting Genitourinary Genitourinary ED: Denies dysuria or hematuria Musculoskeletal Musculoskeletal: Denies arthralgias or myalgias Integumentary Denies abscess or rash Neurologic Neurologic: Denies headache(s) Psychiatric Psychiatric: Denies depression Endocrine Endocrinology: Denies polyuria Hematologic/Lymphatic Hematologic/Lymphatic: Denies easy bruising Allergic/Immunologic Allergic/Immunologic ED: Denies urticaria EXAM Physical Exam Narrative Exam Narrative: 66-year-old male no acute distress. Vital signs stable afebrile. Pulse ox 95% on room air. HEENT exam unremarkable. Neck nontender. Lungs clear to auscultation bilaterally. Heart regular rhythm rate about 100 no murmur. Abdomen soft. Distended. Possible ascites. No peritoneal signs. No signs of obstruction. Moving all 4 extremities. Trace edema bilaterally. Neurologically is awake and alert with no focal motor deficits. Const Vital Signs: 08/18/21 14:51 08/18/21 14:54 08/18/21 15:15 Temperature 99.3 F H Temperature Source Oral Pulse Rate 100 Respiratory Rate 22 H Respiratory Effort Short of Breath Labored Blood Pressure 173/92 H Blood Pressure Mean 119 Pulse Ox 95 92 Oxygen Delivery Method Room Air Room Air Oxygen Flow Rate (L/min) 08/18/21 15:42 08/18/21 16:23 08/18/21 16:58 Temperature Temperature Source Pulse Rate 87 90 Respiratory Rate 12 11 L Respiratory Effort Blood Pressure 134/86 H 138/79 H Blood Pressure Mean 102 98 Pulse Ox 94 96 96 Oxygen Delivery Method Nasal Cannula Nasal Cannula Nasal Cannula Oxygen Flow Rate (L/min) 2 2 2 08/18/21 17:07 08/18/21 18:03 Temperature Temperature Source Pulse Rate 77 80 Respiratory Rate 12 10 L Respiratory Effort Blood Pressure 144/83 H 155/95 H Blood Pressure Mean 103 115 Pulse Ox 96 96 Oxygen Delivery Method Nasal Cannula Nasal Cannula Oxygen Flow Rate (L/min) 2 2 General Appearance ED: Negative for pallor HEENT Reports moist mucous membranes normocephalic; Negative for atraumatic or trauma Eyes PERRL and EOMs intact bilaterally General Eye ED: Negative for pale conjunctiva or scleral icterus Neck no lymphadenopathy, supple and no JVD General: Negative for tenderness Resp normal respiratory effort Auscultation: wheezes; Negative for rales or rhonchi Cardio regular rate, regular rhythm, S1 normal heart sound, S2 normal heart sound and no murmurs Rate: Negative for tachycardic GI non-tender and no masses; Negative for non-distended Inspection: abdominal distention Auscultation: normoactive bowel sounds; Negative for hyperactive bowel sounds or hypoactive bowel sounds Palpation: soft; Negative for tender, guarding, rigid or rebound tenderness present Back/Spine no CVA tenderness General Back: Negative for CVA tenderness Extremity full ROM General Extremety ED: Yes edema; Negative for tenderness General Extremity: edema Neuro moves all extremities Sensorium / Orientation: alert, oriented to person, oriented to place and oriented to time; Negative for orientation impaired, confused, lethargic or stuporous Motor Exam: strength 5/5 throughout Psych mental status grossly normal and thought process normal Mood & Affect: Negative for depressed or tearful Skin no wounds General Skin Exam: Negative for jaundice or pallor Lesions: no lesions Rashes: no rashes MDM MDM MDM Narrative Medical decision making narrative: 66-year-old male with abdominal pain. An extensive work-up the other day which is basically unremarkable. Get screening labs. He has a benign exam with possible abdominal ascites and lower extremity edema. Repeat exam no change at 6:10 PM. His labs are really unremarkable no significant change from before. Is already been imaged. My concern is this patient's weight gain recently. He will need further evaluation. This will be done as an outpatient. Lab Data Attestation: I reviewed the patient's lab results. Lab results narrative: CBC shows white count 7. Hemoglobin 12.8. Platelet count of 273. Electrolytes unremarkable gap 8 creatinine normal glucose 115 liver enzymes normal troponin normal. Labs: Laboratory Results - last 24 hr 08/18/21 08/18/21 08/18/21 15:25 15:25 15:25 WBC 7.0 RBC 3.86 L Hgb 12.8 L Hct 37.0 L MCV 95.9 H MCH 33.2 H MCHC 34.6 RDW Std Deviation 50.9 H RDW Coeff of Marlene 14.5 Plt Count 273 MPV 9.2 Immature Gran % (Auto) 0.600 Neut % (Auto) 68.2 Lymph % (Auto) 21.1 [place] % (Auto) 8.1 Eos % (Auto) 1.6 Baso % (Auto) 0.4 Absolute Neuts (auto) 4.8 Absolute Lymphs (auto) 1.48 Nucleated RBC % 0 Sodium 139 Potassium 3.8 Chloride 105 Carbon Dioxide 26.0 Anion Gap 8 BUN 9 Creatinine 0.87 Estim Creat Clear Calc 90.16 Est GFR (MDRD) Af Amer 114 Est GFR (MDRD) Non-Af 94 BUN/Creatinine Ratio 10.4 Glucose 115 H Calcium 9.4 Total Bilirubin 0.70 Direct Bilirubin 0.20 AST 18 ALT 50 Alkaline Phosphatase 65 Troponin I High Sens 6 Total Protein 7.4 Albumin 3.5 Globulin 3.9 Radiography Diagnostic Testing: Radiology Impression Chest X-Ray 08/18/21 15:45 IMPRESSION: 1. Stable exam. Persistent prominent interstitial lung markings. Electronically Signed: Chadwick Bang MD ([place]) at 15:59 EDT , Service support , Portable chest x-ray interpreted both by myself and the radiologist shows chronic changes consistent pulmonary fibrosis and prior sternotomy. But no acute process and no significant change from most recent chest x-ray. Discharge Plan Triage Chief Complaint: Chest Pain ED Provider: Wayne Blanco Dx/Rx/DC Orders Clinical Impression: Abdominal pain Instructions: Abdominal Pain Prescriptions: No Action allopurinol 100 mg tablet 100 mg PO DAILY RF: 0 albuterol sulfate [Ventolin HFA] 90 mcg/actuation HFA aerosol inhaler 2 puff INHALATION Q6H PRN (Reason: Wheezing) RF: 0 metformin 500 mg tablet 500 mg PO DAILY RF: 0 coenzyme Q10 [Co Q-10] 100 mg capsule 200 mg PO DAILY RF: 0 Humira 40 mg/0.8 mL syringe kit 40 mg subcut Q2W RF: 0 cholecalciferol (vitamin D3) 25 mcg (1,000 unit) tablet 2,000 unit PO DAILY RF: 0 aspirin 81 mg tablet,chewable 81 mg PO DAILY@0800 RF: 0 prednisone 5 mg tablet 2.5 mg PO DAILY RF: 0 nitroglycerin 0.4 mg tablet, sublingual 0.4 mg SUBLINGUAL Q5-15M PRN (Reason: chest pain) Qty: 25 RF: 1 metoprolol tartrate 50 mg tablet 50 mg PO BID Qty: 180 RF: 3 losartan 50 mg tablet See Rx Instructions .ROUTE .COMPLEX Qty: 90 RF: 3 pravastatin 80 mg tablet 80 mg PO QHS Qty: 90 RF: 4 Primary Care Provider: Gianfranco West Referrals: Gianfranco West MD [Primary Care Provider] - As soon as possible Activity Restrictions/Additional Instructions: Follow-up with your primary care physician for further evaluation. Your labs today were basically unchanged from the ones done previously. Disposition Disposition: Home, Self Care
--- NOTE | 2021-08-18 15:45 | RAD_ITS ---
STUDY: X-RAY CHEST REASON FOR EXAM: Male, 66 years old. chest pain TECHNIQUE: AP COMPARISON: 08/16/2021 FINDINGS: Sternotomy wires and sternal fixation plates are stable. Increased interstitial lung markings overall similar to the prior study. There is pleural fibrotic scarring of the left costophrenic angle. There is mild cardiac enlargement. Normal mediastinum and james. Normal visualized pulmonary arteries. There is atherosclerotic calcification of the aortic arch with tortuosity. There is demineralization of the osseous structures. Normal visualized ribs, clavicles, and shoulders. There is no demonstrated abnormality of the visualized soft tissue structures of the upper abdomen. RAD/Chest 1 View (Portable) IMPRESSION: 1. Stable exam. Persistent prominent interstitial lung markings. Electronically Signed: Chadwick Bang MD ([place]) at 15:59 EDT , Service support ,
[2021-08-18 15:50] LABS: Anion Gap 8 (5-15); BUN 9 mg/dL (7-18); BUN/Creat Ratio 10.4 RATIO (10-20); Calcium,Total 9.4 mg/dL (8.5-10.1); Chloride 105 mmol/L (98-107); Creatinine, Serum 0.87 mg/dL (0.70-1.30); EST Glomerular Filtration Rate 94 mL/min (>60); Est Glom Filt Rate - Afr Amer 114 mL/min (>60); Estimated Creatinine Clearance 90.16 ml/min; Glucose 115 mg/dL (74-106); Potassium 3.8 mmol/L (3.5-5.1); Sodium Level 139 mmol/L (136-145); Troponin-I HS 6 pg/mL (3.0-78.0)
[2021-08-18 16:10] LABS: AST(SGOT) 18 U/L (15-37); Alanine Aminotransfer ALT/SGPT 50 U/L (16-61); Albumin, Serum 3.5 g/dL (3.2-5.0); Alkaline Phosphatase 65 U/L (45-117); Globulin 3.9 g/dL (2.2-4.2); Protein, Total 7.4 g/dL (6.4-8.2)
== END 2021-08-18 18:22 | disposition home or self-care (01) ==
PROVIDERS: Emergency Provider Emergency Medicine; PCP Family Medicine
DX: R10.9 Unspecified abdominal pain (principal); R07.9 Chest pain, unspecified; I25.10 Atherosclerotic heart disease of native coronary artery without angina pectoris; I10 Essential (primary) hypertension; E11.9 Type 2 diabetes mellitus without complications; E78.00 Pure hypercholesterolemia, unspecified; Z79.82 Long term (current) use of aspirin; Z79.84 Long term (current) use of oral hypoglycemic drugs; Z87.891 Personal history of nicotine dependence; Z95.1 Presence of aortocoronary bypass graft; Z79.52 Long term (current) use of systemic steroids; Z79.899 Other long term (current) drug therapy
CPT/HCPCS: 71045; 80048; 80076; 84484; 85025; 93005; 99284; A4216

== ENCOUNTER → 2021-09-21 09:31 | Outpatient (CLI) | payer BC, SELFPAY ==
[2021-09-21 11:08] LABS: PSA,Total - Annual Screen 2.63 ng/mL (0.00-4.00)
== END ==
PROVIDERS: PCP Family Medicine; Referring Provider Urology; Visit Provider Urology
DX: Z12.5 Encounter for screening for malignant neoplasm of prostate (principal)
CPT/HCPCS: 36415; 84153; G0103

== ENCOUNTER 2021-12-14 11:28 | Outpatient (CLI) | payer BC, SELFPAY ==
--- NOTE | 2021-12-14 11:30 | RAD_ITS ---
STUDY: X-RAY - PELVIS AND LEFT HIP REASON FOR EXAM: Male, 66 years old. PAIN TECHNIQUE: 3 views of the pelvis and hip. COMPARISON: None. FINDINGS: There is a non-specific bowel gas pattern. Normal visualized soft tissue structures. Normal bilateral iliac wings, sacroiliac joints and visualized sacrum. Normal bilateral superior and inferior pubic rami. Normal pubic symphysis. Normal bilateral ischial tuberosities. Decrease from her neck offset predisposing can type femoral acetabular impingement. There is osteoarthritic spur formation of the acetabular rim. There is mild articular joint space narrowing of the hip. 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 Electronically Signed: Hardeep Kauffman MD at 15:24 EST ,
== END 2021-12-14 23:59 | disposition short-term general hospital (02) ==
LOC: MTRAD 11:29
PROVIDERS: PCP Family Medicine; Referring Provider Family Medicine; Visit Provider Family Medicine
DX: M16.12 Unilateral primary osteoarthritis, left hip (principal)
CPT/HCPCS: 73502

== ENCOUNTER 2022-03-12 12:24 | Emergency (ER) | payer BC, SELFPAY ==
[2022-03-12 12:29] VITALS: BP 128/78; PULSE 79; RESP 18; TEMP 36.1; O2SAT 96; BMI 33.5
--- NOTE | 2022-03-12 12:45 | EKG12_ITS ---
Test Reason : CP Blood Pressure : / mmHG Vent. Rate : 084 BPM Atrial Rate : 084 BPM P-R Int : 176 ms QRS Dur : 146 ms QT Int : 400 ms P-R-T Axes : 049 -61 035 degrees QTc Int : 472 ms Normal sinus rhythm Left axis deviation Right bundle branch block Abnormal ECG Confirmed by KEVIN STUBBS, TANIA ([id number]), commercial production editor MARCELLO ASH ([id number]) on 03/13/2022 8:41:05 AM Referred By: BRUNILDA Confirmed By:TANIA BROWN MD
--- NOTE | 2022-03-12 12:45 | EX.ED.DYSGE1 ---
HPI History of Present Illness Chief Complaint: Chest Pain Detail of Chief Complaint: Inferior anterior right chest pain near the RCM Informant: patient Onset/Context/Timing Onset: Yesterday Context: Sudden Onset Timing: Intermittent Quality: Pain Location: Near the right costal margin Current Severity: Mild Maximum Severity: Severe Worsened by: Movement Relieved by: Nothing Associated Symptoms Associated Symptoms: None Narrative Narrative: Patient is a 66-year-old male who states he was tying his shoes yesterday when he developed pain anterior inferior chest wall on the right side. It is near the right costal margin. He denies intolerance to greasy or fried foods. He denies history of VTE. He denies leg pain, swelling discoloration. He states he took a tramadol tablet and feels better. He has no other complaints. Prior similar symptoms: No Recent Illness/Hospitalization: No PFSH PFSH Medical History (Updated 03/12/22 @ 12:[address] Walker Faust MD) Atherosclerotic heart disease of [place] coronary artery without angina pectoris Essential hypertension IBS (irritable bowel syndrome) Pure hypercholesterolemia Tobacco abuse Home Medications nitroglycerin 0.4 mg sublingual tablet 0.4 mg SUBLINGUAL Q5-15M PRN #25 tab 01/05/20 [Rx Last Taken Unknown] cholecalciferol (vitamin D3) 25 mcg (1,000 unit) tablet 2,000 unit PO DAILY tab 03/24/20 [History Last Taken Unknown] metformin 500 mg tablet 500 mg PO DAILY 03/24/20 [History Last Taken Unknown] aspirin 81 mg chewable tablet 81 mg PO DAILY@0800 tab 04/07/20 [History Last Taken Unknown] albuterol sulfate 90 mcg/actuation aerosol inhaler 2 puff INHALATION Q6H PRN 11/21/20 [History Last Taken Unknown] allopurinol 100 mg tablet 100 mg PO DAILY tab 11/21/20 [History Last Taken Unknown] coenzyme Q10 100 mg capsule 200 mg PO DAILY cap 07/05/21 [History Last Taken Unknown] metoprolol tartrate 50 mg tablet 50 mg PO BID #180 tab 12/06/21 [Rx Last Taken Unknown] pravastatin 80 mg tablet 80 mg PO QHS #90 tab 12/06/21 [Rx Last Taken Unknown] abatacept 125 mg/mL subcutaneous syringe 125 mg SUBCUT QWEEK 01/15/22 [History Last Taken Unknown] aripiprazole 20 mg tablet 2 mg PO DAILY tab 01/15/22 [History Last Taken Unknown] fluticasone fur. 200 mcg-umeclid 62.5 mcg-vilant 25 mcg inhalat.powder 1 inh INHALATION DAILY 01/15/22 [History Last Taken Unknown] losartan 50 mg tablet 50 mg PO DAILY tab 01/15/22 [History Last Taken Unknown] prednisone 5 mg tablet 2.5 mg PO DAILY PRN 01/15/22 [History Last Taken Unknown] sertraline 50 mg tablet 50 mg PO DAILY 01/15/22 [History Last Taken Unknown] tramadol 50 mg PO Q6H PRN 3 Days #12 tab 03/12/22 [Rx Last Taken Unknown] Allergy/AdvReac Type Severity Reaction Status Date / Time Penicillins Allergy Swelling Verified 03/12/22 12:26 Family History Father Heart disease Mother Heart disease Surgical History History of coronary artery bypass surgery (~03/08/20) History of foot surgery History of hernia repair History of left heart catheterization (12/31/19) Social History (Updated 03/12/22 @ 12:[address] Walker Faust MD) household members: spouse Smoking Status: Former smoker alcohol intake: current details: daily substance use type: does not use ROS ROS ED Constitutional Constitutional ED: Denies chills, fever(s), subjective, sweats or weight loss Cardiovascular Cardiovascular: Reports chest pain; Denies orthopnea, palpitations, paroxysmal nocturnal dyspnea or racing heartbeat Respiratory/Chest Respiratory/Chest: Reports cough; Denies dyspnea, dyspnea on exertion, orthopnea, paroxysmal nocturnal dyspnea or sputum Gastrointestinal Gastrointestinal: Denies abdominal pain, nausea or vomiting Genitourinary Genitourinary ED: Denies hematuria or urinary frequency Musculoskeletal Musculoskeletal: Denies back pain or neck pain Neurologic Neurologic: Denies paresthesias or weakness EXAM Physical Exam Const Vital Signs: 03/12/22 12:29 Temperature 97 F L Temperature Source Temporal Pulse Rate 79 Respiratory Rate 18 Blood Pressure 128/78 H Blood Pressure Mean 94 Pulse Ox 96 Oxygen Delivery Method Room Air Positive well nourished, well developed and obese General Appearance ED: well developed and NAD; Negative for cyanotic or diaphoretic Nutritional Appearance: obese HEENT Negative for trauma or tenderness Eyes PERRL and EOMs intact bilaterally General Eye ED: Negative for pale conjunctiva Chest Wall inspection of chest normal and palpation of chest normal Chest Narrative: There is pain no patient anterior inferior right chest wall. There is no crepitus subcutaneous air. Resp normal respiratory effort and clear to auscultation bilaterally Effort and Inspection: pain with movement Cardio regular rate, regular rhythm, S1 normal heart sound, S2 normal heart sound and no murmurs GI normal to inspection, nondistended, normoactive bowel sounds, non-tender and non-distended; Negative for hepatosplenomegaly Palpation: soft Back/Spine no CVA tenderness Extremity normal to inspection General Extremety ED: Negative for edema or tenderness General Extremity: Negative for edema Neuro oriented x3 and CN's II-XII intact bilaterally Sensorium / Orientation: alert Psych mental status grossly normal Skin no rashes or lesions noted and no wounds MDM MDM MDM Narrative Medical decision making narrative: Patient pain is worse with flexion and twisting the right left and reproduces his pain. He was prescribed tramadol which she has taken in the past. EKG was done per nurse protocol and is unremarkable for any acute ischemic changes. EKG Initial EKG: Attestation: I personally reviewed and interpreted this EKG as follows: Interpretation: Sinus Rhythm (Ventricular rate is 84. [place] to the left. There is evidence of right bundle branch block. HI interval is 176 ms. Cures duration 146 ms. QT duration 400 ms.) Discharge Plan Triage Chief Complaint: Chest Pain ED Provider: Walker Faust Dx/Rx/DC Orders Clinical Impression: Right-sided chest wall pain Prescriptions: New tramadol 50 mg tablet 50 mg PO Q6H PRN (Reason: pain) 3 Days Qty: 12 RF: 0 No Action allopurinol 100 mg tablet 100 mg PO DAILY RF: 0 albuterol sulfate [Ventolin HFA] 90 mcg/actuation HFA aerosol inhaler 2 puff INHALATION Q6H PRN (Reason: Wheezing) RF: 0 metformin 500 mg tablet 500 mg PO DAILY RF: 0 coenzyme Q10 [Co Q-10] 100 mg capsule 200 mg PO DAILY RF: 0 Trelegy Ellipta 200-62.5-25 mcg blister with device 1 inh inhalation DAILY RF: 0 sertraline 50 mg tablet 50 mg PO DAILY RF: 0 Orencia 125 mg/mL syringe 125 mg subcut QWEEK RF: 0 aripiprazole 20 mg tablet 2 mg PO DAILY RF: 0 losartan 50 mg tablet 50 mg PO DAILY RF: 0 cholecalciferol (vitamin D3) 25 mcg (1,000 unit) tablet 2,000 unit PO DAILY RF: 0 aspirin 81 mg tablet,chewable 81 mg PO DAILY@0800 RF: 0 prednisone 5 mg tablet 2.5 mg PO DAILY PRNRF: 0 nitroglycerin 0.4 mg tablet, sublingual 0.4 mg SUBLINGUAL Q5-15M PRN (Reason: chest pain) Qty: 25 RF: 1 metoprolol tartrate 50 mg tablet 50 mg PO BID Qty: 180 RF: 3 pravastatin 80 mg tablet 80 mg PO QHS Qty: 90 RF: 4 Primary Care Provider: Gianfranco West Referrals: Gianfranco West MD [Primary Care Provider] - 1 Week if not improving Activity Restrictions/Additional Instructions: Apply ice to anterior right chest 8-10 times a day for 20 to 30 minutes per application Disposition Disposition: Home, Self Care
== END 2022-03-12 13:01 | disposition home or self-care (01) ==
PROVIDERS: Emergency Provider Emergency Medicine; PCP Family Medicine; Visit Provider Emergency Medicine
DX: R07.89 Other chest pain (principal); I25.10 Atherosclerotic heart disease of native coronary artery without angina pectoris; Z87.891 Personal history of nicotine dependence
CPT/HCPCS: 93005; 99282

== ENCOUNTER 2022-03-29 14:30 | Outpatient (RCR) | payer BC, SELFPAY ==
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
--- NOTE | 2022-04-10 11:26 | HP.PT.NRP ---
YARI NAVA was seen in my office for initial evaluation on 03/01/22. The following Plan of Care was established for this patient: Initial Frequency: 2-3x /Week Initial Duration: 4-6 Weeks Patient/Client Instruction: Educate patient on: Condition, Plan of Care, Risk Factors For the Purpose of:: To improve self management Therapeutic Exercise to Include: Strength training, Body mechanics, Postural training, Flexibilty training, Gait and locomotor training, Neuromotor development, In an aquatic setting, Dynamic Lumbar Stabilization For the Purpose of:: To decrease pain, To increase ROM, To improve muscle performance and motor function, To increase tolerance to activity/condition/position, To improve ability of physical actions for home/community/work/leisure, To improve gait and locomotor functions Cryotherapy (ice pack, ice massage): Yes Thermo therapy (hot pack): Yes Ultrasound (thermal/non thermal): Yes For the Purpose of:: To decrease pain, To improve nutrient delivery to tissue This patient was last seen in our office . Pertinent comments regarding their Physical therapy will appear below: This patient has not returned to Physical Therapy and is appropriate to return to MD for further follow-up as needed. He cancelled all remaining reena'ts. At this point I will be discontinuing this patient from physical therapy. I would be happy to see this patient again in the future if found appropriate by the physician. Thank you! Rosalinda Edwards, PT, Cert MDT Balance/Gait/Functional tests - Balance/Special Test Scores Oswestry Low Back Score: 24
== END 2022-03-29 19:00 | disposition home or self-care (01) ==
LOC: PT 14:30
PROVIDERS: PCP Family Medicine; Referring Provider Orthopaedic Surgery; Visit Provider Orthopaedic Surgery
DX: M16.12 Unilateral primary osteoarthritis, left hip (principal); M51.36 Other intervertebral disc degeneration, lumbar region
CPT/HCPCS: 97112; 97113; 97162

== ENCOUNTER → 2022-07-20 | Outpatient (CLI) | payer BC, SELFPAY ==
[2022-07-20 09:22] LABS: Absolute Lymphocyte Count 2.57 X10^3/uL (0.83-4.51); Absolute Neutrophil Count 5.4 X10^3/uL (2.0-7.7); Basophil# 0.11 X10^3/uL; Basophil% 1.1 % (0-1); Eosinophil# 0.93 X10^3/uL; Eosinophils% 9.5 % (0-5); Hematocrit 44.1 % (40-54); Hemoglobin 15.2 g/dL (13.0-16.5); Lymphocyte # 2.57 X10^3/ul (0.83-4.51); Lymphocyte % 26.3 % (19-41); Mean Corp Hgb Conc 34.5 g/dL (32-36); Mean Corpuscular Hgb 32.1 pg (27.0-32.0); Mean Corpuscular Volume 93.2 fL (80-94); Mean Platelet Vol. 9.7 fl (6.2-12.0); Monocyte# 0.73 X10^3/uL; Monocyte% 7.5 % (0-10); NRBC Flagged by Analyzer 0 % (0-5); Neutrophil # 5.42 X10^3/uL (2.7-7.7); Neutrophil % 55.3 % (47-70); Platelet Count 304 K/mm3 (150-450); RBC Distribution Width CV 14.2 % (11.6-14.6); RBC Distribution Width SD 48.6 fl (35.1-43.9); Red Blood Count 4.73 M/mm3 (4.6-6.2); White Blood Count 9.8 K/mm3 (4.4-11.0)
[2022-07-20 09:46] LABS: BNP,B-Type NATRIURETIC PEPTIDE 206.2 pg/mL (0-100)
[2022-07-20 09:54] LABS: Anion Gap 9 (5-15); BUN 12 mg/dL (7-18); BUN/Creat Ratio 12.8 RATIO (10-20); Calcium,Total 9.5 mg/dL (8.5-10.1); Chloride 105 mmol/L (98-107); Creatinine, Serum 0.94 mg/dL (0.70-1.30); EST Glomerular Filtration Rate 85 mL/min (>60); Est Glom Filt Rate - Afr Amer 103 mL/min (>60); Glucose 88 mg/dL (74-106); Potassium 4.2 mmol/L (3.5-5.1); Sodium Level 138 mmol/L (136-145); Thyroid Stim Hormone (TSH) 2.18 uIU/mL (0.358-3.74)
[2022-07-20 09:58] LABS: AST(SGOT) 18 U/L (15-37); Alanine Aminotransfer ALT/SGPT 25 U/L (16-61); Albumin, Serum 3.8 g/dL (3.2-5.0); Alkaline Phosphatase 76 U/L (45-117); Bilirubin, Direct 0.12 mg/dL (0.00-0.30); Cholesterol 146 mg/dL (200); Globulin 3.7 g/dL (2.2-4.2); High Density Lipoprotein 45 mg/dL; Protein, Total 7.5 g/dL (6.4-8.2); Triglycerides 129 mg/dL; Very Low Density Lipoprotein 26 mg/dL (5-40)
== END | disposition home or self-care (01) ==
LOC: LAB 08:20
PROVIDERS: Internal Medicine Cardiovascular Disease; PCP Family Medicine; Referring Provider Nurse Practitioner Gerontology; Visit Provider Nurse Practitioner Gerontology
DX: R06.09 Other forms of dyspnea (principal); R53.83 Other fatigue; E78.00 Pure hypercholesterolemia, unspecified
CPT/HCPCS: 36415; 80048; 80061; 80076; 83735; 83880; 84443; 85025

== ENCOUNTER → 2022-07-26 | Outpatient (CLI) | payer BC, SELFPAY ==
[2022-07-26 10:52] LABS: Anion Gap 8 (5-15); BUN 16 mg/dL (7-18); BUN/Creat Ratio 15.4 RATIO (10-20); Calcium,Total 9.9 mg/dL (8.5-10.1); Chloride 101 mmol/L (98-107); Creatinine, Serum 1.04 mg/dL (0.70-1.30); EST Glomerular Filtration Rate 76 mL/min (>60); Est Glom Filt Rate - Afr Amer 92 mL/min (>60); Glucose 108 mg/dL (74-106); Potassium 4.1 mmol/L (3.5-5.1); Sodium Level 137 mmol/L (136-145)
== END | disposition home or self-care (01) ==
PROVIDERS: PCP Family Medicine; Referring Provider Nurse Practitioner Gerontology; Visit Provider Nurse Practitioner Gerontology
DX: R06.09 Other forms of dyspnea (principal)
CPT/HCPCS: 36415; 80048

== ENCOUNTER → 2022-08-08 | Outpatient (CLI) | payer BC, SELFPAY ==
--- NOTE | 2022-08-08 08:43 | ECHOCS_ITS ---
Reason For Study: Dyspnea/SOB Procedure This was a 2D Doppler, Color Flow transthoracic echocardiogram. The study was technically difficult. Contrast injection was performed. Exam performed in department. Left Ventricle Left ventricular systolic function is normal. The estimated ejection fraction is 55 %. No evidence for diastolic dysfunction. No regional wall motion abnormalities noted. Right Ventricle Normal RV size. Normal systolic function. Atria The left atrium is mildly enlarged. Normal right atrium. No doppler evidence for ASD. Mitral Valve There is no mitral annular calcification. Normal mitral valve. Trivial mitral valve insufficiency. Tricuspid Valve Normal tricuspid valve. Trivial tricuspid valve insufficiency. Unable to estimate RV systolic pressure/pulmonary artery pressure due to technically difficult study. Aortic Valve Trisinus/trileaflet aortic valve. Normal aortic valve. Pulmonic Valve The pulmonic valve is not well visualized. Trivial pulmonic valve insufficiency. Great Vessels The ascending aorta is severely dilated. Pericardium/Pleural Small pericardial effusion. There are no echocardiographic indications of cardiac tamponade. Medication 20 gauge I.V. with prn adaptor inserted into right arm. Diluted definity 1.5ml given slow IV push to enhance endocardial definition. MMode/2D Measurements & Calculations LVIDd: 4.9 cm IVSd: 1.6 cm Ao root diam: 6.2 cm LVIDs: 2.8 cm LVPWd: 1.4 cm LA dimension: 4.1 cm FS: 43.4 % LAV(MOD-bp): 62.3 ml LA A4 area: 19.4 cm2 LAV(MOD-bp) Indexed: 27.3 ml/m2 LAV(MOD-sp2): 75.5 ml LAV(MOD-sp4): 51.5 ml Time Measurements MV dec time: 0.20 sec Doppler Measurements & Calculations MV E max sina: 74.2 cm/sec Lat Peak E' Sina: 10.2 cm/sec Med Peak E' Sina: 6.7 cm/sec MV A max sina: 66.9 cm/sec E/E' lat: 7.3 E/E' med: 11.1 MV E/A: 1.1 MV V2 max: 79.6 cm/sec MV P1/2t max sina: 79.6 cm/sec Ao V2 max: 98.2 cm/sec MV max P.5 mmHg MV P1/2t: 62.7 msec Ao max P.9 mmHg MV V2 mean: 42.6 cm/sec MV dec slope: 372.0 cm/sec2 MV mean P.86 mmHg MV V2 VTI: 22.7 cm MVA(P1/2t): 3.5 cm2 LV V1 max: 77.4 cm/sec PA V2 max: 88.1 cm/sec LV V1 max P.4 mmHg ECHO/Echo Complete W/ Contrast Interpretation Summary The study was technically difficult. Contrast injection was performed. Left ventricular systolic function is normal. The estimated ejection fraction is 55 %. The left atrium is mildly enlarged. Trivial mitral valve insufficiency. Trivial tricuspid valve insufficiency. Trivial pulmonic valve insufficiency. The ascending aorta is severely dilated (based upon the 2D echocardiographic me asurements obtained: Ranging from approximately 5.7 cm to 6.5 cm) Small pericardial effusion. There are no echocardiographic indications of cardiac tamponade. Unable to estimate RV systolic pressure/pulmonary artery pressure due to techni puneet difficult study. No evidence for diastolic dysfunction. Ordering Physician: Nayeli Hidalgo Referring Physician: Gianfranco West Performed By: Juan Carlos Levin RCS
--- NOTE | 2022-08-08 08:45 | RAD_ITS ---
STUDY: X-RAY CHEST REASON FOR EXAM: Male, 67 years old. Fever and cough TECHNIQUE: PA and lateral views of the chest. COMPARISON: 08/18/2021 FINDINGS: Lungs are hyperexpanded with chronic interstitial changes, stable left pleural thickening and blunting of the left costophrenic angle. No acute pulmonary process or significant interval change. Sternal cerclage wires and vascular clips are present from a prior sternotomy and coronary artery bypass graft procedure (CABG). Normal mediastinum and james. Normal visualized pulmonary arteries. Normal visualized aortic arch and descending thoracic aorta. There are diffuse degenerative changes of the visualized thoracic spine. Normal visualized ribs, clavicles, and shoulders. There is no demonstrated abnormality of the visualized soft tissue structures of the upper abdomen. RAD/Chest PA and Lateral IMPRESSION: Degenerative changes, as described above. No demonstrated acute cardiopulmonary process. No interval change Electronically Signed: Michael Ya MD at 9:33 EDT ,
== END | disposition home or self-care (01) ==
PROVIDERS: PCP Family Medicine; Referring Provider Nurse Practitioner Gerontology; Visit Provider Nurse Practitioner Gerontology
DX: R06.09 Other forms of dyspnea (principal); Z72.0 Tobacco use
CPT/HCPCS: 71046; 93306; Q9957; A4216; C8929

== ENCOUNTER 2022-08-16 08:54 | Emergency (ER) | payer BC, MEDICARE, SELFPAY ==
[2022-08-16 08:55] VITALS: BP 134/82; PULSE 65; RESP 16; TEMP 36.6; O2SAT 98; BMI 32.8
[2022-08-16 09:14] VITALS: BP 152/88; PULSE 64; RESP 18; O2SAT 97
--- NOTE | 2022-08-16 09:14 | EDS_ITS ---
HPI History of Present Illness Chief Complaint: General Illness Informant: patient Onset/Context/Timing Onset: Days Context: Gradual Onset Timing: Intermittent Quality: Dull Location: Lower chest and epigastric area Worsened by: Nothing Relieved by: Nothing Narrative Narrative: Patient presents with shortness of breath, fatigue, and chest pain that has been getting worse over the past several days. 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 At that time there was questionable abnormality of the aorta. Patient had a CT scan of the chest today which showed a type a aortic dissection of the ascending aorta. There is a binta cardial effusion noted along the right heart border. Patient was then referred to the emergency department. Patient admits to some general weakness and fatigue where he feels like after he is done working he needs to come home and rest which is not normal for him. Patient admits to some mild dull chest pain that has been intermittent. Patient states it is over the lower chest and epigastric area. Patient states nothing really makes it better nothing makes it worse. PFSH PFSH Medical History Atherosclerotic heart disease of [place] coronary artery without angina pectoris Essential hypertension IBS (irritable bowel syndrome) Pure hypercholesterolemia Thoracic aortic aneurysm without rupture Tobacco abuse Home Medications nitroglycerin 0.4 mg sublingual tablet 0.4 mg sublingual Q5-15M PRN chest pain #25 tabs 01/05/20 [Rx Last Taken Unknown] cholecalciferol (vitamin D3) 25 mcg (1,000 unit) tablet 2,000 unit PO DAILY 03/24/20 [History Last Taken Unknown] metformin 500 mg tablet 500 mg PO DAILY 03/24/20 [History Last Taken Unknown] aspirin 81 mg chewable tablet 81 mg PO DAILY@0800 04/07/20 [History Last Taken Unknown] albuterol sulfate 90 mcg/actuation aerosol inhaler (Ventolin HFA) 2 puff inhalation Q6H PRN Wheezing 11/21/20 [History Last Taken Unknown] allopurinol 100 mg tablet 100 mg PO DAILY 11/21/20 [History Last Taken Unknown] coenzyme Q10 100 mg capsule (Co Q-10) 200 mg PO DAILY 07/05/21 [History Last Taken Unknown] metoprolol tartrate 50 mg tablet 50 mg PO BID #180 tabs 12/06/21 [Rx Last Taken Unknown] pravastatin 80 mg tablet 80 mg PO QHS #90 tabs 12/06/21 [Rx Last Taken Unknown] abatacept 125 mg/mL subcutaneous syringe (Orencia) 125 mg subcut QWEEK 01/15/22 [History Last Taken Unknown] fluticasone fur. 200 mcg-umeclid 62.5 mcg-vilant 25 mcg inhalat.powder (Trelegy Ellipta) 1 inh inhalation DAILY 01/15/22 [History Last Taken Unknown] losartan 50 mg tablet 50 mg PO DAILY 01/15/22 [History Last Taken Unknown] prednisone 5 mg tablet 5 mg PO DAILY 01/15/22 [History Last Taken Unknown] vortioxetine 20 mg tablet (Trintellix) 20 mg PO DAILY 07/19/22 [History Last Taken Unknown] Allergy/AdvReac Type Severity Reaction Status Date / Time Penicillins Allergy Swelling Verified 08/16/22 08:56 Family History Father Heart disease Mother Heart disease Surgical History History of coronary artery bypass surgery (~03/08/20) History of foot surgery History of hernia repair History of left heart catheterization (12/31/19) Social History household members: spouse Smoking Status: Current every day smoker tobacco type: cigarettes alcohol intake: current details: daily substance use type: does not use ROS ROS ED Constitutional Constitutional ED: Reports chills and subjective; Denies fever(s) Eyes Eyes: Denies blurry vision or change in vision ENT ENT ED: Denies rhinorrhea or sore throat Cardiovascular Cardiovascular: Reports chest pain; Denies palpitations Respiratory/Chest Respiratory/Chest: Reports dyspnea; Denies cough Gastrointestinal Gastrointestinal: Reports nausea and vomiting Genitourinary Genitourinary ED: Denies dysuria or hematuria Musculoskeletal Musculoskeletal: Denies back pain or neck pain Integumentary Denies abscess or rash Neurologic Neurologic: Denies headache(s) or weakness Allergic/Immunologic Allergic/Immunologic ED: Denies mouth swelling or urticaria EXAM Physical Exam Const Vital Signs: 08/16/22 08:55 Temperature 97.8 F Temperature Source Temporal Pulse Rate 65 Respiratory Rate 16 Blood Pressure 134/82 H Blood Pressure Mean 99 Pulse Ox 98 Oxygen Delivery Method Room Air Positive well nourished, well developed and obese General Appearance ED: well developed and NAD Nutritional Appearance: obese HEENT Reports moist mucous membranes Neck supple and no JVD Resp normal respiratory effort and clear to auscultation bilaterally Cardio regular rate, regular rhythm and no murmurs GI normal to inspection, nondistended, normoactive bowel sounds and non-tender Palpation: soft Extremity normal to inspection General Extremety ED: Negative for edema or tenderness General Extremity: Negative for edema Neuro oriented x3, CN's II-XII intact bilaterally and no sensory deficits noted Sensorium / Orientation: alert Motor Exam: strength 5/5 throughout Psych mental status grossly normal Skin no rashes or lesions noted MDM MDM MDM Narrative Medical decision making narrative: IV line was established. Patient was given IV fluids. Patient was placed on continuous cardiac and pulse oximeter monitors. Basic labs were obtained. Type and screen was ordered. Case was discussed with Dr. Wells who was in to evaluate the patient as well. Dr. Wells contacted [facility] and they felt the patient will be better to go to the main campus of the [facility]. Case was discussed with the [facility] transfer line. Patient was accepted for transfer. Patient will be transferred to the service of Dr. Harris. Patient understands and is agreeable with the plan. All questions were answered. 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, Discussing w/Consultants, Arranging Admission or Transfer and Performing Direct Patient Care at Bedside Discharge Plan Triage Chief Complaint: General Illness ED Provider: David Tenorio Dx/Rx/DC Orders Clinical Impression: Aortic dissection, Fatigue, History of coronary artery bypass surgery Prescriptions: No Action allopurinol 100 mg tablet 100 mg PO DAILY Label Comments: take 1 tablet by mouth once daily albuterol sulfate [Ventolin HFA] 90 mcg/actuation HFA aerosol inhaler 2 puff INHALATION Q6H PRN (Reason: Wheezing) metformin 500 mg tablet 500 mg PO DAILY coenzyme Q10 [Co Q-10] 100 mg capsule 200 mg PO DAILY Trelegy Ellipta 200-62.5-25 mcg blister with device 1 inh inhalation DAILY Orencia 125 mg/mL syringe 125 mg subcut QWEEK losartan 50 mg tablet 50 mg PO DAILY Trintellix 20 mg tablet 20 mg PO DAILY cholecalciferol (vitamin D3) 25 mcg (1,000 unit) tablet 2,000 unit PO DAILY aspirin 81 mg tablet,chewable 81 mg PO DAILY@0800 prednisone 5 mg tablet 5 mg PO DAILY Label Comments: TAKE 2 TABLETS BY MOUTH TWICE DAILY nitroglycerin 0.4 mg tablet, sublingual 0.4 mg SUBLINGUAL Q5-15M PRN (Reason: chest pain) Qty: 25 1RF Rx Instructions: until response; do not exceed 3 doses per episode metoprolol tartrate 50 mg tablet 50 mg PO BID Qty: 180 3RF pravastatin 80 mg tablet 80 mg PO QHS Qty: 90 4RF Primary Care Provider: Gianfranco West Referrals: Gianfranco West MD [Primary Care Provider] - Disposition Disposition: Acute Care Hospital Discharge Location: [facility]
[2022-08-16 09:22] VITALS: BP 139/80; PULSE 64; RESP 16; O2SAT 96
[2022-08-16 09:39] VITALS: BP 141/86; PULSE 71; RESP 18; O2SAT 96
[2022-08-16 09:42] LABS: Absolute Lymphocyte Count 1.29 X10^3/uL (0.83-4.51); Absolute Neutrophil Count 8.6 X10^3/uL (2.0-7.7); Basophil# 0.09 X10^3/uL; Basophil% 0.8 % (0-1); Eosinophil# 0.42 X10^3/uL; Eosinophils% 3.7 % (0-5); Hematocrit 40.5 % (40-54); Hemoglobin 13.5 g/dL (13.0-16.5); Lymphocyte # 1.29 X10^3/ul (0.83-4.51); Lymphocyte % 11.5 % (19-41); Mean Corp Hgb Conc 33.3 g/dL (32-36); Mean Corpuscular Hgb 31.4 pg (27.0-32.0); Mean Corpuscular Volume 94.2 fL (80-94); Mean Platelet Vol. 9.8 fl (6.2-12.0); Monocyte# 0.78 X10^3/uL; NRBC Flagged by Analyzer 0 % (0-5); Neutrophil % 76.6 % (47-70); Platelet Count 308 K/mm3 (150-450); RBC Distribution Width CV 14.2 % (11.6-14.6); RBC Distribution Width SD 49.1 fl (35.1-43.9); White Blood Count 11.2 K/mm3 (4.4-11.0)
[2022-08-16 09:51] LABS: International Normalized Ratio 1.1; Partial Thromboplast Time 36.6 Seconds (24.1-36.2); Prothrombin Time (Protime)PT. 13.8 SECONDS (11.7-14.9)
[2022-08-16 09:55] VITALS: BP 139/82; PULSE 64; RESP 16; TEMP 36.4; O2SAT 96
[2022-08-16 09:56] LABS: AST(SGOT) 17 U/L (15-37); Alanine Aminotransfer ALT/SGPT 26 U/L (16-61); Albumin, Serum 3.6 g/dL (3.2-5.0); Alkaline Phosphatase 84 U/L (45-117); Anion Gap 8 (5-15); BUN 11 mg/dL (7-18); BUN/Creat Ratio 11.5 RATIO (10-20); Calcium,Total 9.2 mg/dL (8.5-10.1); Chloride 106 mmol/L (98-107); Creatinine, Serum 0.96 mg/dL (0.70-1.30); EST Glomerular Filtration Rate 84 mL/min (>60); Est Glom Filt Rate - Afr Amer 101 mL/min (>60); Estimated Creatinine Clearance 80.62 ml/min; Globulin 3.5 g/dL (2.2-4.2); Glucose 105 mg/dL (74-106); Potassium 4.2 mmol/L (3.5-5.1); Protein, Total 7.1 g/dL (6.4-8.2); Sodium Level 139 mmol/L (136-145); Troponin-I HS 4 pg/mL (3.0-78.0)
--- NOTE | 2022-08-16 19:59 | CON.PCM.CA_ITS ---
Assessment & Plan Assessment/Plan (1) Aortic dissection: PLAN: The patient has undergone further noninvasive valuation of his cardiovascu lar history and his abnormal transthoracic echocardiogram with a chest CTA. He was found to have had an ascending thoracic aortic aneurysm with an associated dissection. He appeared to be symptomatically and hemodynamically stable at the time. He was monitored in the emergency department. He was subsequently transported by helicopter to the [facility] for additional evaluation and care. 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 At the present time he had not been having symptoms of ongoing angina pectoris. Ideally he would continue medical management. (3) History of coronary artery bypass surgery: PLAN: The patient has undergone CABG. His case was reviewed with his CT surgeon as noted above. At the time of his CT surgery there was no recommendation for intervention of his thoracic aorta. At the present time he will continue medical therapy. Again he was recommended to be transferred to the [facility] for further evaluation and care. (4) Pure hypercholesterolemia: PLAN: The patient should continue risk factor evaluation care as deemed appropri ate. (5) Essential hypertension: PLAN: The patient appeared to be hemodynamically stable at the moment without notation of hypotension. He is being monitored. He will continue medical therapy with adjustment as deemed appropriate. He was subsequently transferred to the [facility] for additional evaluation and care. Addt'l Comments The patient's case was discussed and reviewed with the patient, Dr. Mccabe of radiology, Drs. Lacey and Payton of the [facility] emergency department staff, and Dr. Lombardo of CT surgery at [facility]. This note was generated using a voice recognition system and there may be incorrect words, spelling or punctuation that were not noted when reviewing the office note prior to saving. HPI Consult Data Date of Consult: 08/16/22 HPI Narrative HPI Narrative: YARI NAVA, is a 67 year old white male who presented this a.m. for an outpatient chest CTA based upon a recent outpatient transthoracic echocardiogram suggesting a dilated thoracic aorta of approximately 5.7 to 6.5 cm for additional evaluation and care with subsequent notation of an a sending aortic aneurysm with associated dissection superimposed upon a chronic cardiovascular history of CAD, status post CABG (February 2020 at [facility]: FRAUSTO to the LAD, free ROBER to the diagonal branch, SVG to the OM, and SVG to the right posterior lateral branch), hyperlipidemia, and hypertension. He had presented recently to the outpatient office on 07-19-2022 and was evaluated by the JOHNN[facility]. He did have concerns of shortness of breath/dyspnea. He also noted a decrease in his energy level. He had noted lower extremity peripheral pitting edema. He did not complain at that time of ongoing chest discomfort. He was subsequently asked undergo additional laboratory studies and a chest x-ray and a transthoracic echocardiogram. The chest x-ray and the transthoracic echocardiogram was performed on 08-08-2022. The results are as noted below. Based upon the results he was asked to have a chest CTA to further evaluate his thoracic aorta. This was performed earlier this day. The results of the study are noted below. In brief it demonstrated concerns of an ascending thoracic aortic aneurysm with associated dissection and potential pericardial effusion. Following the patient's chest CTA procedure the case was reviewed with Dr. Mccabe of radiology. The findings were subsequently discussed with the patient. The patient was escorted to the emergency department for additional evaluation and care. At that point in time the patient appeared to be resting comfortably with no acute symptoms especially with respect to chest discomfort or acute shortness of breath or dyspnea. There was no ongoing episodes of or thopnea, PND, or worsening peripheral pitting edema since his recent evaluation. He had no complaints of ongoing palpitations or rapid heart rates. There have been no report of near syncope. He stated he came in as an outpatient for his studies and was resting comfortably awaiting results of his studies. His case was reviewed with his CT surgeon at [facility] - Dr. Ambar Lombardo. He reviewed the patient's previous cardiovascular noninvasive and invasive studies and surgical procedure. Status post review of the case he recommended the patient be transferred to the [facility] for further evaluation and care. The [facility] emergency department contacted the [facility] and requested a transfer to their center. The patient was accepted and was subsequently transferred via helicopter to [facility]. 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 Essential hypertension IBS (irritable bowel syndrome) Pure hypercholesterolemia Thoracic aortic aneurysm without rupture Tobacco abuse Home Medications nitroglycerin 0.4 mg sublingual tablet 0.4 mg sublingual Q5-15M PRN chest pain #25 tabs 01/05/20 [Rx Last Taken Unknown] cholecalciferol (vitamin D3) 25 mcg (1,000 unit) tablet 2,000 unit PO DAILY 03/24/20 [History Last Taken Unknown] metformin 500 mg tablet 500 mg PO DAILY 03/24/20 [History Last Taken Unknown] aspirin 81 mg chewable tablet 81 mg PO DAILY@0800 04/07/20 [History Last Taken Unknown] albuterol sulfate 90 mcg/actuation aerosol inhaler (Ventolin HFA) 2 puff inhalation Q6H PRN Wheezing 11/21/20 [History Last Taken Unknown] allopurinol 100 mg tablet 100 mg PO DAILY 11/21/20 [History Last Taken Unknown] coenzyme Q10 100 mg capsule (Co Q-10) 200 mg PO DAILY 07/05/21 [History Last Taken Unknown] metoprolol tartrate 50 mg tablet 50 mg PO BID #180 tabs 12/06/21 [Rx Last Taken Unknown] pravastatin 80 mg tablet 80 mg PO QHS #90 tabs 12/06/21 [Rx Last Taken Unknown] abatacept 125 mg/mL subcutaneous syringe (Orencia) 125 mg subcut QWEEK 01/15/22 [History Last Taken Unknown] fluticasone fur. 200 mcg-umeclid 62.5 mcg-vilant 25 mcg inhalat.powder (Trelegy Ellipta) 1 inh inhalation DAILY 01/15/22 [History Last Taken Unknown] losartan 50 mg tablet 50 mg PO DAILY 01/15/22 [History Last Taken Unknown] prednisone 5 mg tablet 5 mg PO DAILY 01/15/22 [History Last Taken Unknown] vortioxetine 20 mg tablet (Trintellix) 20 mg PO DAILY 07/19/22 [History Last Taken Unknown] Allergy/AdvReac Type Severity Reaction Status Date / Time Penicillins Allergy Swelling Verified 08/16/22 08:56 Family History Father Heart disease Mother Heart disease Surgical History History of coronary artery bypass surgery (~03/08/20) History of foot surgery History of hernia repair History of left heart catheterization (12/31/19) Social History household members: spouse Smoking Status: Current every day smoker tobacco type: cigarettes alcohol intake: current details: daily substance use type: does not use ROS Constitutional Constitutional: Reports as per HPI Eyes Eyes: Reports as per HPI ENT HEENT: Reports as per HPI Cardiovascular Cardiovascular: Reports dyspnea and edema Respiratory/Chest Respiratory/Chest: Reports dyspnea Gastrointestinal Gastrointestinal: Reports as per HPI Genitourinary Genitourinary: Reports as per HPI Musculoskeletal Musculoskeletal: Reports as per HPI Integumentary Integumentary: Reports as per HPI Neurologic Neurologic: Reports as per HPI Psychiatric Psychiatric: Reports as per HPI Physical Exam Const alert, oriented x3 and no apparent distress Orientation / Consciousness: awake HEENT normocephalic, head/scalp atraumatic and hearing grossly normal bilaterally Eyes PERRL, EOMs intact bilaterally, conjunctivae normal and no scleral icterus Neck full ROM, supple and no JVD Carotids: normal carotid upstroke Chest Chest: midline sternotomy incision Resp normal respiratory effort and clear to auscultation bilaterally Cardio regular rate, regular rhythm, S1 normal heart sound and S2 normal heart sound GI normal to inspection, nondistended, normoactive bowel sounds Extremity no pedal edema Skin no rashes or lesions noted Psych mental status grossly normal Risk Stratification Risk Stratification Applicable: No Procedure Criteria Type of Procedure Procedure Type: Elective Elective Risks - COVID COVID Risk Discussion: The surgeon/proceduralist and patient have discussed in detail the risk of exposure to and/or potential harm posed by the COVID-19 virus with having a surgery/procedure at this time versus the risk of delaying the surge ry/procedure. It is not possible to know either the risk of delaying the surgery or procedure or chance of getting an infection with perfect accuracy, but a joint decision was made between the patient and the surgeon/proceduralist to proceed at this time with the scheduled surgery/procedure as indicated on the consent form. Objective Data Vital Signs: Vital Signs Temp Pulse Resp BP Pulse Ox O2 Del Method 97.5 F L 64 16 139/82 H 96 Room Air 08/16/22 09:55 08/16/22 09:55 08/16/22 09:55 08/16/22 09:55 08/16/22 09:55 08/16/22 09:39 Oxygen Delivery Method Room Air Weight: 235 lb Body Mass Index (BMI) 32.8 Lab / Micro Data Result Diagrams: 08/16/22 09:30 08/16/22 09:30 Labs: Laboratory Results - last 24 hr 08/16/22 09:30: WBC 11.2 H, RBC 4.30 L, Hgb 13.5, Hct 40.5, MCV 94.2 H, MCH 31.4, MCHC 33.3, RDW Std Deviation 49.1 H, RDW Coeff of Marlene 14.2, Plt Count 308, MPV 9.8, Immature Gran % (Auto) 0.400, Neut % (Auto) 76.6 H, Lymph % (Auto) 11.5 L, Bulloch % (Auto) 7.0, Eos % (Auto) 3.7, Baso % (Auto) 0.8, Absolute Neuts (auto) 8.6 H, Absolute Lymphs (auto) 1.29, Nucleated RBC % 0 08/16/22 09:30: PT 13.8, INR 1.1, APTT 36.6 H 08/16/22 09:30: Sodium 139, Potassium 4.2, Chloride 106, Carbon Dioxide 25.0, Anion Gap 8, BUN 11, Creatinine 0.96, Estim Creat Clear Calc 80.62, Est GFR (MDRD) Af Amer 101, Est GFR (MDRD) Non-Af 84, BUN/Creatinine Ratio 11.5, Glucose 105, Calcium 9.2, Total Bilirubin 0.30, AST 17, ALT 26, Alkaline Phosphatase 84, Troponin I High Sens 4, Total Protein 7.1, Albumin 3.6, Globulin 3.5, Albumin/Globulin Ratio 1.0 Micro: Microbiology 08/16/22 09:30 Nasal Secretion SARS-CoV-2 Antigen (Rapid) - Final Cardiology Labs/Tests 08/16/22 09:30: WBC 11.2 H, RBC 4.30 L, Hgb 13.5, Hct 40.5, MCV 94.2 H, MCH 31.4, MCHC 33.3, Plt Count 308, MPV 9.8, Immature Gran % (Auto) 0.400, Neut % (Auto) 76.6 H, Lymph % (Auto) 11.5 L, Bull[place] % (Auto) 7.0, Eos % (Auto) 3.7, Baso % (Auto) 0.8, Absolute Neuts (auto) 8.6 H, Nucleated RBC % 0 08/16/22 09:30: PT 13.8, INR 1.1, APTT 36.6 H 08/16/22 09:30: Sodium 139, Potassium 4.2, Chloride 106, Carbon Dioxide 25.0, Anion Gap 8, BUN 11, Creatinine 0.96, Est GFR (MDRD) Af Amer 101, Est GFR (MDRD) Non-Af 84, BUN/Creatinine Ratio 11.5, Glucose 105, Calcium 9.2, Total Bilirubin 0.30 ECHO: 08-08-2022 Interpretation Summary The study was technically difficult. Contrast injection was performed. ? Left ventricular systolic function is normal. The estimated ejection fraction is 55 %. The left atrium is mildly enlarged. Trivial mitral valve insufficiency. Trivial tricuspid valve insufficiency. Trivial pulmonic valve insufficiency. The ascending aorta is severely dilated (based upon the 2D echocardiographic measurements obtained: Ranging from approximately 5.7 cm to 6.5 cm) Small pericardial effusion. There are no echocardiographic indications of cardiac tamponade. Unable to estimate RV systolic pressure/pulmonary artery pressure due to technically difficult study. No evidence for diastolic dysfunction. Echocardiogram: 02-11-2020:?[facility]: Left ventricle normal with an LVEF 55% Trace MR Trace TR Stress Test 05/07/20: Procedure: Exercise tolerance test Indications: CAD; CABG; precardiac rehabilitation evaluation Consent: Per the patient Procedure: The patient exercised on a Maurice protocol for 6 minutes completing stage II achieving a peak heart rate of 153 bpm (97 % predicted maximal heart rate) with a peak blood pressure 168/70 mmHg and a peak MET capacity of approximately 7 mET's. The baseline ECG demonstrated normal sinus rhythm; right IVCD pattern.? The peak exercise ECG demonstrated no obvious ECG changes. There were no cardiac dysrhythmias pretest, during exercise, or recovery. The functional capacity was considered average. The patient had no complaint of chest discomfort during exercise or recovery. The examination was discontinued secondary to dyspnea. Impression: 1.? Technically adequate (percent predicted maximal heart rate greater than 85%) exercise tolerance test 2.? Peak exercise ECG with no obvious ECG changes 3.? There were no cardiac dysrhythmias during exercise or recovery Stress Test Report: 12-28-2019 Exercise myocardial perfusion stress test. 64-year-old man with a history of known coronary artery disease. Medications: Losartan, pravastatin. Stress protocol: Resting EKG demonstrates sinus rhythm with a rate of 62 bpm normal intervals are noted resting blood pressure is 122/80 mmHg.? A right bundle branch block is noted.? The patient exercised according to the regular Maurice protocol for total duration of 7 minutes completing 1 minute into stage III of the Maurice protocol.? The maximum heart rate attained was 141 bpm which was 89% of maximal predicted heart rate the maximum workload was 8.5 metabolic equivalents.? The patient maintained sinus rhythm throughout the recording.? At rest no ST or T wave changes were noted suggest resting ischemia right bundle branch block was noted at peak exercise similar pattern was noted with no evidence of ischemia.? The resting blood pressure was 122/80 with a peak blood pressure 190/88 rate- pressure product was 24,500.? Patient developed some shortness of breath the test was terminated due to the target heart rate being achieved and dyspnea. Myocardial perfusion protocol. 11.4 mCi of technetium 99m sestamibi was injected at rest.? The patient exercised according to regular Maurice protocol for 7 minutes and at peak exercise 36.0 mCi of technetium 99m sestamibi was injected stress images were obtained stress and rest images were reconstructed and compared in the short axis vertical long horizontal long axis.? Gated images were also obtained per Perfusion SPECT analysis: Review of the stress images demonstrate normal uptake of tracer noted in the septum anterior wall and lateral wall.? The mid inferior wall has a medium zone with reduced perfusion which appears to improve on the resting images suggesting a mild to moderate amount of ischemia in a medium size zone. Gated SPECT analysis: The gated ejection fraction was noted to be 68%. Conclusion: Abnormal exercise myocardial perfusion stress test at a moderate workload. Mid inferior ischemia noted. Cardiac catheterization: 12-31-2019 CONCLUSIONS Triple-vessel disease with unclear significance of the left anterior descending artery lesion.? Moderately severe disease noted of the circumflex artery lesion and a focal high-grade stenosis noted of the right coronary artery. RECOMMENDATIONS Staged for FFR Recommended FFR or IFR to the LAD.? If it is noted to be significant then we should consider coronary artery bypass surgery especially in view of the small aneurysm at the takeoff of the first diagonal vessel DESCRIPTION OF? PROCEDURE The patient arrived to the procedure lab. The risks and benefits of the procedure as well as a full description of our services here and current unavailability of surgical backup were fully explained to the patient and/or their significant other prior to the catheterization. The Timeout was completed, verifying the correct patient and procedure. The patient's procedural site was prepped and draped in the usual fashion. Local anesthetic was given subcutaneously to right radial region with Lidocaine 2%. Using a modified Seldinger technique, arterial access was obtained via the right radial artery, a 6Fr sheath was inserted.? Left Coronary Artery selective angiography was performed in multiple views using a 5 Fr. 4.0 Katy catheter. Right Coronary Artery selective angiography was then performed in multiple views using a 5 Fr. 4.0 Katy catheter. Left Coronary Artery selective angiography was performed in multiple views using a 5 Fr. JL3.5 catheter. Left Ventriculography was performed in DEY projection using a 5 Fr. Pigtail catheter. LV to AO pullback pressures were then recorded.The arterial sheath was pulled and a TR Band was applied for hemostasis CORONARY ANGIOGRAPHY DOMINANCE:? Right Dominant LEFT HEART ASSESSMENT Left Ventricular Ejection Fraction: by LV Gram 60 % Normal LV wall motion Normal Left Ventricular systolic function LEFT MAIN: Mild calcification, Non-obstructive LEFT ANTERIOR DESCENDING ARTERY: PROX LAD: Diffusely diseased up to 75 %, There is an area of aneurysmal dilatation at the takeoff of a large diagonal vessel CIRCUMFLEX ARTERY: MID CIRC: 75 % Stenosis OM 1: Ostial - 75 % Stenosis RIGHT CORONARY ARTERY: Mild luminal irregularities less than 30% RT PDA: Mid - 80 % Stenosis CAB03-08-2020: [facility] FRAUSTO to the LAD Free ROBER to the right diagonal branch SVG to the OM SVG to the right posterior lateral branch Chest x-ray: 08-08-2022 FINDINGS: Lungs are hyperexpanded with chronic interstitial changes, stable left pleural thickening and blunting of the left costophrenic angle.? No acute pulmonary process or significant interval change. Sternal cerclage wires and vascular clips are present from a prior sternotomy and coronary artery bypass graft procedure (CABG). ? Normal mediastinum and james.? Normal visualized pulmonary arteries.? Normal visualized aortic arch and descending thoracic aorta. There are diffuse degenerative changes of the visualized thoracic spine. Normal visualized ribs, clavicles, and shoulders. There is no demonstrated abnormality of the visualized soft tissue structures of the upper abdomen. RAD/Chest PA and Lateral IMPRESSION: Degenerative changes, as described above.? No demonstrated acute cardiopulmonary process.? No interval change ? Electronically Signed: Michael Ya MD at 9:33 EDT Chest CTA: 08-16-[address] Nba Mccabe MD on 08/16/22 at 0858 STUDY:? CTA CHEST REASON FOR EXAM:? Male, 67 years old.? Ascending Aorta dilatation RADIATION DOSAGE (If Supplied By Facility):? CTDIvol = ( 18.26 ) mGy, DLP = ( 589.42 ) mGycm TECHNIQUE:? The examination was performed with the intravenous administration of IV 100mL [id number]-370.? Post-processing of the angiographic images was performed, with multiplanar reformation and 3D reconstruction. Individualized dose optimization techniques were used for this CT. COMPARISON:? Comparison is made with prior study dated 02/20/2020. FINDINGS: Normal enhancement of the main pulmonary artery and right and left pulmonary arteries.? Normal enhancement of the bilateral peripheral pulmonary arteries.? There is no demonstrated pulmonary embolism. There is aneurysmal dilatation of the ascending aorta. The transverse diameter of the ascending aorta measures? 63 mm''s. There is evidence of intimal dissection of the ascending thoracic aorta starting at the level of the aortic root and extending into the proximal portion of the aortic arch.? Both the true lumen and false lumen are visualized.? I suspect focal localized hematoma adjacent to the distal portion of the ascending thoracic aorta.? Small pericardial effusion is seen along the inferior right side of the heart.? Prior CABG.? Coronary artery calcification. Normal mediastinum.? Normal hilar regions. Normal visualized trachea and bronchi.? Hyperinflation. Stable emphysematous changes more prominent in the upper lobes with centrilobular emphysema. Normal pleura. Normal chest wall structures. There are degenerative changes of thoracic spine. Normal visualized upper abdomen. 08/16/22 0858 Date cc:? Dr. Gianfranco Wells MD; Dr. Gianfranco West MD ~* Signed ADDENDUM by Dr. Nba Mccabe MD on 08/16/[address]/CTA Chest W/WO Contrast IMPRESSION: Dilatation of the ascending thoracic aorta with a dissection of the ascending thoracic aorta in keeping with a type A dissection.? Both the true and false lumina are patent. Pericardial effusion is seen along the right side of the heart border. Stable emphysematous changes of the lungs. ? N.B. : The above Results were Read Back by Nba Mccabe MD to Gianfranco Wells and understanding confirmed on 08/16/2022 08:57:14 (ET). ? Electronically Signed: Nba Mccabe MD at 8:58 EDT
== END 2022-08-16 10:17 | disposition short-term general hospital (02) ==
PROVIDERS: Emergency Provider Emergency Medicine; PCP Family Medicine; Visit Provider Emergency Medicine
DX: I25.10 Atherosclerotic heart disease of native coronary artery without angina pectoris (principal); I71.00 Dissection of unspecified site of aorta; R53.83 Other fatigue; F17.210 Nicotine dependence, cigarettes, uncomplicated; I10 Essential (primary) hypertension; E78.00 Pure hypercholesterolemia, unspecified; E66.9 Obesity, unspecified; Z79.82 Long term (current) use of aspirin; Z79.84 Long term (current) use of oral hypoglycemic drugs; Z79.899 Other long term (current) drug therapy; Z95.1 Presence of aortocoronary bypass graft
CPT/HCPCS: 80053; 84484; 85025; 85610; 85730; 87811; 99284

== ENCOUNTER → 2022-08-16 | Outpatient (CLI) | payer BC, SELFPAY ==
--- NOTE | 2022-08-16 07:47 | CT_ITS ---
STUDY: CTA CHEST REASON FOR EXAM: Male, 67 years old. Ascending Aorta dilatation RADIATION DOSAGE (If Supplied By Facility): CTDIvol = ( 18.26 ) mGy, DLP = ( 589.42 ) mGycm TECHNIQUE: The examination was performed with the intravenous administration of IV 100mL Isovue-370. Post-processing of the angiographic images was performed, with multiplanar reformation and 3D reconstruction. Individualized dose optimization techniques were used for this CT. COMPARISON: Comparison is made with prior study dated 02/20/2020. FINDINGS: Normal enhancement of the main pulmonary artery and right and left pulmonary arteries. Normal enhancement of the bilateral peripheral pulmonary arteries. There is no demonstrated pulmonary embolism. There is aneurysmal dilatation of the ascending aorta. The transverse diameter of the ascending aorta measures 63 mm''s. There is evidence of intimal dissection of the ascending thoracic aorta starting at the level of the aortic root and extending into the proximal portion of the aortic arch. Both the true lumen and false lumen are visualized. I suspect focal localized hematoma adjacent to the distal portion of the ascending thoracic aorta. Small pericardial effusion is seen along the inferior right side of the heart. Prior CABG. Coronary artery calcification. Normal mediastinum. Normal hilar regions. Normal visualized trachea and bronchi. Hyperinflation. Stable emphysematous changes more prominent in the upper lobes with centrilobular emphysema. Normal pleura. Normal chest wall structures. There are degenerative changes of thoracic spine. Normal visualized upper abdomen. 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 Both the true and false lumina are patent. Pericardial effusion is seen along the right side of the heart border. Stable emphysematous changes of the lungs. N.B. : The above Results were Read Back by Nba Mccabe MD to Gianfranco Wells and understanding confirmed on 08/16/2022 08:57:14 (ET). Electronically Signed: Nba Mccabe MD at 8:58 EDT ,
== END | disposition home or self-care (01) ==
LOC: CT 07:46
PROVIDERS: PCP Family Medicine; Referring Provider Internal Medicine Cardiovascular Disease; Visit Provider Internal Medicine Cardiovascular Disease
DX: I71.2 Thoracic aortic aneurysm, without rupture (principal)
CPT/HCPCS: 71275; Q9967; A4216

== ENCOUNTER → 2022-10-10 | Outpatient (CLI) | payer BC, SELFPAY ==
[2022-10-10 15:29] LABS: Absolute Lymphocyte Count 1.55 X10^3/uL (0.83-4.51); Absolute Neutrophil Count 5.8 X10^3/uL (2.0-7.7); Basophil# 0.09 X10^3/uL; Eosinophil# 0.44 X10^3/uL; Eosinophils% 5.1 % (0-5); Hematocrit 37.6 % (40-54); Hemoglobin 11.8 g/dL (13.0-16.5); Lymphocyte # 1.55 X10^3/ul (0.83-4.51); Mean Corp Hgb Conc 31.4 g/dL (32-36); Mean Corpuscular Hgb 28.4 pg (27.0-32.0); Mean Corpuscular Volume 90.4 fL (80-94); Mean Platelet Vol. 10.2 fl (6.2-12.0); Monocyte# 0.74 X10^3/uL; Monocyte% 8.6 % (0-10); NRBC Flagged by Analyzer 0 % (0-5); Neutrophil # 5.75 X10^3/uL (2.7-7.7); Neutrophil % 67.1 % (47-70); Platelet Count 356 K/mm3 (150-450); RBC Distribution Width CV 14.9 % (11.6-14.6); RBC Distribution Width SD 49.2 fl (35.1-43.9); Red Blood Count 4.16 M/mm3 (4.6-6.2); White Blood Count 8.6 K/mm3 (4.4-11.0)
[2022-10-10 15:45] LABS: CRP 4.56 mg/L (0.0-3.0)
[2022-10-10 15:52] LABS: Erythrocyte Sedimentation Rate 44 mm/hr (0-20)
== END | disposition home or self-care (01) ==
LOC: MFPLAB 11:28
PROVIDERS: PCP Family Medicine; Visit Provider Family Medicine
DX: R70.0 Elevated erythrocyte sedimentation rate (principal); R79.82 Elevated C-reactive protein (CRP); D64.9 Anemia, unspecified
CPT/HCPCS: 36415; 85025; 85652; 86140

== ENCOUNTER → 2022-10-16 | Outpatient (CLI) | payer BC, SELFPAY ==
--- NOTE | 2022-10-16 08:53 | ECHOD_ITS ---
Reason For Study: S/P AAA REPAIR Procedure This was a 2D Doppler, Color Flow transthoracic echocardiogram. The study was technically difficult. Exam performed in department. Left Ventricle Normal LV size. Moderate concentric left ventricular hypertrophy. Left ventricular systolic function is normal. The estimated ejection fraction is 65 %. Post operative septal motion. No evidence for diastolic dysfunction. Right Ventricle Normal RV size. Normal systolic function. Atria The left atrium is mildly enlarged. Normal right atrium. No doppler evidence for ASD. Mitral Valve There is no mitral annular calcification. Mild focal mitral valve calcification of the anterior leaflet. Mild (1+) mitral valve insufficiency. Tricuspid Valve Normal tricuspid valve. Mild tricuspid valve insufficiency. Right ventricular systolic pressure estimated to be 30 mmHg. Aortic Valve Trisinus/trileaflet aortic valve. Mild diffuse aortic valve thickening. Mild focal aortic valve calcification. Pulmonic Valve Normal pulmonic valve. Trivial pulmonic valve insufficiency. Great Vessels The aortic root is not well visualized, however, based upon the images obtained there appears to be increased echodensity potentially compatible with calcification versus an aortic root repair and the aortic root/ascending thoracic aortic diameter recorded was 3.0 cm. Pericardium/Pleural No pericardial effusion. MMode/2D Measurements & Calculations LVIDd: 4.4 cm IVSd: 1.7 cm Ao root diam: 3.0 cm LVIDs: 2.9 cm LVPWd: 1.5 cm FS: 33.8 % LAV(MOD-bp): 66.8 ml LVAd ap4: 26.9 cm2 SV(MOD-sp4): 44.7 ml LAV(MOD-bp) Indexed: 30.6 ml/m2 LVLd ap4: 7.6 cm LAV(MOD-sp2): 66.0 ml EDV(MOD-sp4): 78.2 ml LAV(MOD-sp4): 64.6 ml EDV(sp4-el): 80.7 ml LVAs ap4: 15.4 cm2 LVLs ap4: 6.3 cm ESV(MOD-sp4): 33.5 ml ESV(sp4-el): 31.6 ml EF(MOD-sp4): 57.2 % EF(sp4-el): 60.8 % SV(sp4-el): 49.0 ml LA A4 area: 22.0 cm2 LA dimension(2D): 4.6 cm RA A4 area: 19.5 cm2 Time Measurements MV dec time: 0.19 sec Doppler Measurements & Calculations MV E max sina: 79.8 cm/sec Lat Peak E' Sina: 10.5 cm/sec Med Peak E' Sina: 5.8 cm/sec MV A max sina: 70.9 cm/sec E/E' lat: 7.6 E/E' med: 13.8 MV E/A: 1.1 MV V2 max: 90.0 cm/sec Ao V2 max: 102.4 cm/sec MV max P.2 mmHg MV dec slope: 415.6 cm/sec2 Ao max P.2 mmHg MV V2 mean: 63.1 cm/sec Ao V2 mean: 75.2 cm/sec MV mean P.7 mmHg Ao mean P.5 mmHg MV V2 VTI: 21.4 cm Ao V2 VTI: 22.4 cm AV (velocity ratio): 0.87 LV V1 max: 82.0 cm/sec MR max sina: 507.1 cm/sec PA V2 max: 94.8 cm/sec LV V1 max P.7 mmHg MR max P.8 mmHg PA V2 mean: 66.4 cm/sec LV V1 mean P.6 mmHg LV V1 mean: 58.7 cm/sec LV V1 VTI: 19.5 cm TR max sina: 267.5 cm/sec TR max P.6 mmHg ECHO/Echo Complete Interpretation Summary The study was technically difficult. Left ventricular systolic function is normal. The estimated ejection fraction is 65 %. Post operative septal motion. Moderate concentric left ventricular hypertrophy. The left atrium is mildly enlarged. Mild focal mitral valve calcification of the anterior leaflet. Mild (1+) mitral valve insufficiency. Mild tricuspid valve insufficiency. Mild diffuse aortic valve thickening. Mild focal aortic valve calcification. Trivial pulmonic valve insufficiency. The aortic root is not well visualized, however, based upon the images obtained there appears to be increased echodensity potentially compatible with calcification versus an aorti c root repair and the aortic root/ascending thoracic aortic diameter recorded was 3.0 cm. Right ventricular systolic pressure estimated to be 30 mmHg. No evidence for diastolic dysfunction. Ordering Physician: Saranya Hawkins Referring Physician: Gianfranco West Performed By: Ana Lowery RCS
== END | disposition home or self-care (01) ==
LOC: CVS 08:52
PROVIDERS: PCP Family Medicine; Visit Provider Physician Assistant Medical
DX: Z98.890 Other specified postprocedural states (principal); I25.10 Atherosclerotic heart disease of native coronary artery without angina pectoris; I10 Essential (primary) hypertension
CPT/HCPCS: 93306

== ENCOUNTER → 2022-10-17 | Outpatient (CLI) | payer BC, SELFPAY ==
--- NOTE | 2022-10-17 07:56 | PCM.CR.HP2 ---
CR - History & Physical - General Arrival date:: 10/17/22 Arrival time:: 07:56 Date of Referral:: 09/11/22 Date of CR Evaluation:: 10/17/22 Referring Physician: Dr. Gianfranco Wells Primary Diagnosis: CABG - History of Present Cardiac Event Onset Date: Enter Onset Date of cardiac illnesses in Comment field below Coronary Artery Bypass Graft:: Yes - 08/17/22 - Sleep Disorder Evaluation Hx of Sleep Apnea: Yes Do you snore loudly (louder than talking or can be heard through closed doors)?: No Do you often feel tired/ fatigued/ sleepy during daytime?: No Has anyone observed you stop breathing during sleep?: No History of Hypertension (for STOP score): Yes STOP Results: Negative - Medications Home Medications: Ambulatory Orders Medication Instructions Recorded nitroglycerin 0.4 mg sublingual 0.4 mg sublingual Q5-15M PRN chest 01/05/20 tablet pain #25 tabs cholecalciferol (vitamin D3) 25 2,000 unit PO DAILY 03/24/20 mcg (1,000 unit) tablet metformin 500 mg tablet 500 mg PO DAILY 03/24/20 aspirin 81 mg chewable tablet 81 mg PO DAILY@0800 04/07/20 albuterol sulfate 90 mcg/actuation 2 puff inhalation Q6H PRN Wheezing 11/21/20 aerosol inhaler (Ventolin HFA) coenzyme Q10 100 mg capsule (Co 200 mg PO DAILY 07/05/21 Q-10) metoprolol tartrate 50 mg tablet 50 mg PO BID #180 tabs 12/06/21 fluticasone fur. 200 mcg-umeclid 1 inh inhalation DAILY 01/15/22 62.5 mcg-vilant 25 mcg inhalat.powder (Trelegy Ellipta) acetaminophen 500 mg tablet 500 mg PO Q6H PRN 09/03/22 aluminum-mag hydroxide-simethicone 30 ml PO TID PRN 09/03/22 200 mg-200 mg-20 mg/5 mL oral susp (Maalox Advanced) glimepiride 1 mg tablet 0.5 mg PO QAM 09/03/22 guaifenesin 600 mg tablet, 600 mg PO Q12H PRN 09/03/22 extended release 12 hr (Mucinex) lidocaine 4 % topical patch 1 patch topical DAILY PRN 09/03/22 magnesium hydroxide 400 mg/5 mL 30 ml PO DAILY PRN 09/03/22 oral suspension (Milk of Magnesia) melatonin 1 mg tablet 3 mg PO HS PRN 09/03/22 oxycodone 5 mg tablet 5 mg PO Q6H PRN 09/03/22 pantoprazole 20 mg tablet,delayed 20 mg PO DAILY 09/03/22 release polyethylene glycol 3350 17 gram 17 g PO BID PRN constipation 09/03/22 oral powder packet (Miralax) docusate sodium 250 mg capsule 250 mg PO DAILY 09/11/22 vortioxetine 20 mg tablet 20 mg PO DAILY 09/11/22 (Trintellix) atorvastatin 40 mg tablet 40 mg PO QHS #90 tabs 10/02/22 losartan 25 mg tablet 12.5 mg PO DAILY #45 tabs 10/02/22 - Allergies Allergies/Adverse Reactions: Allergies Penicillins Allergy (Verified 10/02/22 15:46) Swelling Advanced Directives - Advanced Directives Power of Equipment Installation Professional: No Living Will: No Advance Directives Information Provided: No Advance Directives on File: No DNR Order?:: No Past Medical History - Covid-19 Screening Has a serious heart condition:: Yes Diabetic:: Yes - Past Medical Illness Medical History: Past Medical History (Last Reviewed 10/02/22 @ 19:34 by Saranya QUEZADA, PA) Atherosclerotic heart disease of [place] coronary artery without angina pectoris I25.10 Moderate per cath 2005. 12/31/2019: FFR in the LAD was 0.77 which is consistent with significant stenoses. 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 Diabetes E11.9 Essential hypertension I10 IBS (irritable bowel syndrome) K58.9 Pure hypercholesterolemia E78.00 Thoracic aortic aneurysm without rupture I71.2 Tobacco abuse Z72.0 - Past Surgical History Surgical History: Past Surgical History (Last Reviewed 09/11/22 @ 15:46 by Saranya QUEZADA, PA) History of coronary artery bypass surgery Onset Date: ~03/08/20 Z95.1 CABG x4- FRAUSTO-LAD, ROBER-Diag, SVG-OM, SVG-R posterolateral branch @ [facility] 03/08/20 History of foot surgery Z98.890 History of hernia repair Z98.890, Z87.19 History of left heart catheterization Onset Date: 12/31/19 Z98.890 Cath in 2005, presumably at [facility]. 12/31/2019: FFR in the LAD was 0.77 which is consistent with significant stenoses. 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 Status post aortic dissection repair Onset Date: ~08/17/22 Z98.890 Type A Aortic Dissection Repair (Ascending and Hemiarch Replacement 30 [place] T Graft with reimplantation of RSVG to OM and RSVG to PDA of prior CABG)@ [facility] Main 08/17/22 Surgical History: noncontributory - Family History Summary Family History: Family History (Last Reviewed 09/11/22 @ 15:46 by Saranya QUEZADA, PA) Father Heart disease Mother Heart disease Social History - Smoking History Smoking Status: Current every day smoker Years Smokin - a pack a week Hx Tobacco Use: Yes - Alcohol Use Alcohol Usage: Yes - occasional - Occupation Occupation (List type of work in comments):: Employed Hours worked per day:: 8 Returned to work on:: 10/18/22 - Hobbies, Recreation, Social Activities Hobbies: Other - music Recreational Activities: I am able to engage in all my recreational activities Social Environment - Status Marital Status: - Current Living Arrangements Living Environment:: Spouse - Children How many children do you have?: 4 Do any of your children live nearby?: No - Safety Do you feel safe in your surroundings?: Yes - Assistance Do you need any assistance at home?: no Review of Systems - Review of Systems Hints: Right click = Denies (Slash). Left click = Reports (Lime) Review of Present Symptoms: Reports: Shortness of Breath with Exertion, PVD, Operative Discomfort, Dizziness/Lightheadedness, Fatigue, Appetite - Normal, Appetite - Special Diet, Sleep - Normal. 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 Nutrition Referral for Diabetes: No - Obesity Height: 5 ft 11 in Weight:: 97.976 kg Weight in Pounds: 216.0 lbs Body Mass Index (BMI): 30.1 Nutritional Referral for Obesity: No - declines - Physical Inactivity Physical Inactivity: Reg Exercise 30 min/day - walking - Risk Stratification Risk Guidelines: Moderate Risk: Risk Factor for Obesity, Risk Factor for Sedentary Lifestyle, Risk Factor for Depression, Highest Risk: Risk Factor for Smoking, Risk Factor for Dyslipidemia, Risk Factor for Diabetes, Risk Factor for Hypertension - Family History Family History: Family History (Last Reviewed 09/11/22 @ 15:46 by Saranya Hawkins PA, PA) Father Heart disease Mother Heart disease Motivation - Motivation to Participate On a scale of 1 to 10, how prepared are you to commit to attending program?: 8 What do you see as barriers to successfully being able to complete the program?: nothing What do you see as the benefits of succesfully completing the program? In other words, what do you hope to get out of participating in the program?: more energy Are there issues you are dealing with that will interfere with completing the program?: no Do you have a spouse or signficant other, family or friends who will help support you to complete the program?: yes
[2022-10-17 08:41] VITALS: BP 98/58; PULSE 85; O2SAT 96; BMI 30.1
--- NOTE | 2022-10-17 08:41 | PCM.CR.ITP ---
Diagnosis - General Information Admitting Diagnosis: CABG Personal Learning Style:: Audio/Visual Stage of change r/t lifestyle modifications:: Contemplation Gave educational material for:: Treating Heart Disease, Emotions & Heart Disease, Stress Management & Relaxation, Sleep Disorders & Heart Disease, How The Heart Works, What it means to have Heart Disease, How Coronary Artery Disease is Diagnosed, Heart Procedures, What Heart Medications Do, Risk Factors & Modifications, Living an Active Life, Nutrition - Education/Goals Cardiac Rehabilitation Goals: 1. Maintain the individual as the primary focus of care. 2. To improve the patient's quality of life. 3. Identification of cardiac risk factors and provide cardiac risk factor management. 4. Enhance the psychosocial status of the patient. 5. Reconditioning enough to allow the patient to resume customary activities. 6. Control symptoms of cardiac disease Personal Goals: Initial Assessment: Improve energy level, Participate in home exercise program, Get back to work, or to resume activities faster, Improve muscle strength and endurance, Control risk factors (learn risk factor modification) Scale for measuring improvement of personal goals: Enter appropriate number in Comments. 2 = Unchanged. 3 = Slightly Better. 4 = Moderate Improvement. 5 = Met my Goal - Diagnosis & Disease Process Outcomes/Goals: Pt IDs own risk factors & lifestyle modifications by Session 10, Verbalizes symptoms of angina & response by session 3., Pt independently manages, Other Additional Outcomes/Goals: Plan/Interventions: Assist Pt to ID & engage in lifestyle modification to reduce CVD risk, Instruct on individual risk factors, Review symptoms of angina & emergency actions, Review secondary diagnosis & identify educational needs., Other see comment 30 day Reassessments:: Not Met 30 day Reassessments:: Not Met 30 day Reassessments:: Not Met 30 day Reassessments:: Not Met Final Reassessments:: Not Met - Safety Referral to Physical Therapy: No Referral to [facility] Case Management: No Fall Risk Assessed:: Yes Assistive Devices:: None Exercise - Initial Assessment - Visit Date of Eval: 10/17/22 - initial eval Mets: Pre-: >3 METS for 30 minutes by discharge, >5 METS for 30 minutes by discharge, >7 METS for 30 minutes by discharge, Unable to meet goal due to: (see comment below) - Physician Prescribed Exercise Modalities: Treadmill, Airdyne, NuStep, SciFit, Lateral Advisory Application Developer Frequency: 2x/week for 18 weeks [36 sessions], 3x/week for 12 weeks [36 sessions] Intensity: 60-80% of age predicted maximum heart rate reserve Current METSs:: 4 Target Heart Rate:: 115-131 Resting Blood Pressure: 98/56 EKG Type: NSR/BBB - Outcomes & Goals Goals:: Verbalizes understanding of THR, RPE & goal METS by session 6, Documents in home exercise log/reports 30 min aerobic 5 day/wk by DC, Demonstrates accurate pulse taking by DC, Other additional outcome/goals: see below - Intervention & Plan Exercise Program Goals: Instruct on personal THR & RPE, Instruct on MET level & personal MET goal, Show patient to take own pulse /validate performance until accurate, Instruct on home exercise, Other additional plan/int - Physical Activity Home Exercise Physical Activity - Home Exercise: Safe Exercise, Warm-up, Self-monitoring, Cool-Down, Home Exercise > 30 min Daily, Sitting Time <3 hours/daily - Outcomes & Goals Outcomes/Goals: Demonstrates correct Warm-up/exercise Cool-Down (S3) if = 2.5 METs, Verbalizes symptoms of exercise intolerance by Session 3 (S3), Demonstrate safe equipment use (S3) & follows exercise prescrition (6), Other: See below - Intervention & Plan Plan/Intervention: Instruct warm-up & cool-down if exercising at > 2 METs, Instruct on symptoms of exercise intolerance & actions to take, Instruct & monitor on saf, Assess intial functional capacity & safety risk, Other See below Nutrition - Initial Assessment - Program Goals Nutrition Program Goals: LDL <100 optimal. 100 - 129 Near optimal. 130 - 159 Borderline High. 160 - 189 High. Total Cholesterol <200 desirable. 200 - 239 Borderline High. >/= 240 High. HDL < 40 Low >/=60 High. Triglycerides <150 desirable. <199 optimal. VlDL 5 - 40. HgbA1C <7%. BMI <25 Patient has diagnosis of Hyperlipidemia (ICD E78)?: Yes - Visit Date of Assessment:: 10/17/22 - initial eval - Cholesterol/Lipids (Other Core Measures) Determine presence & major risk factors that modify LDL goal: Cigarette smoking, Hypertension or hypertensive medication, Low HDL cholesterol <40 mg/dL*, Family history of premature CHD in Male < 55 years: female <65 yearsFa, Age men > 45 years; women >/= 55 years Outcomes/Goals: Pt IDs own risk factors & lifestyle modifications by Session 10, Verbalizes symptoms of angina & response by session 3., Pt independently manages, Other Additional Outcomes/Goals: Intervention/Plan: Advocate for lipid panel cholesterol medication if applicable, Instruct on personal lipid levels & lipid goals/NCEP guidelines, Instruct on cholesterol, Other additional plan/int - Diabetes (Other Core Measures) Diabetes Type: Diagnosis Type II ICD-10 E11 Insulin dependent injection/pump?: No Non-Insulin Dependent?: Yes Do you monitor your blood sugar at home?: Yes Referral to Diabetic Clinic:: No - declines Outcomes/Goals:: Able to state symptoms of, Able to state, Able to state, Other additional Intervention/Plan:: Instruct on, Refer to, Instruct on, Other - Weight Mgt (Other Care) Height: 5 ft 11 in Weight:: 97.976 kg BMI: 30.1 Diagnosis Overweight/Obesity BMI> 30% ICD-10 E66: Yes Diagnosis High BMI/Morbid Obesity BMI> 35% ICD-10 Z68: No Outcomes/Goals: Pt sets, maintains & shows weight loss goal & trend during rehab, Other additional outcomes/goals Intervention/Plan: Instruct on ideal BMI & set weight loss goal w/patient, Assist pt to ID & incorporate diet changes for weight loss by S9, Refer to Structured Weight Loss program as appropriate, Encourage goal of using 250-300dcal per session for weight loss, Other additional plan/interventions - Healthy Eating Habits Will attend diet classes:: Yes Outcomes/Goals:: Consume diet rich in vegs,fruits,whole grain/high fiber,fish,lean meat, Limit sat/trans fats,cholesterol & added salts & sugars, Other additional outcome/goals: Intervention/Plan:: Assess current eating habits, Other Additional plan/interventions - Education Gave educational materials for:: Signs & symptoms of hypoglycemia, Signs & symptoms of hyperglycemia, Relate diabetes to coronary artery disease, Healthy eating Nutrition - 30-Day Assessment Nutrition - 60-Day Assessment Nutrition - 90-Day Assessment Nutrition - Final Assessment Core - Initial Assessment - Visit Date of Eval: 10/17/22 - initial eval - Medication Compliance Preventative Medication(s):: Statin/lipid, Beta gideon, ARB (Angiotensi Rcap) H/O mental health issues: depression, anxiety, or addiction?: Yes Doesn?t believe in the benefits of treatment?: No Believes medications are unnecessary or harmful?: No Has a concern about medication side effects?: No Expresses concern over the cost of medications?: No Outcomes/Goals: Verbalizes medications,desired effect & common side effects @ DC, Pt self-reports following medication regimen, Keeps card in wallet w/medications listed by DC, Other additional outcome/goals: Interventions/plans: Instruct on medication effects & side effects, Review medication list w/patient every two weeks, Instruct importance of taking meds as ordered & assist problem solving, Other additional - Tobacco Use Tobacco Use: Cigarettes Do you use smokeless tobacco?: No Outcomes/Goals: Smoking cessation achieved or maintained by discharge, Identify aids/strategies for achieving smoking cessation by session 6, Other additional outcome/goals Interventions/plan: Instruct on effects of smoking & provide smoking cessation resource, Assist pt to set quit date & provide encouragement, Assist pt to develop strategies to achieve/maintain quit date, Assist pt w/nicotine replacement & medication for cessation success, Other additional plan/interventions - Hypertension Hypertension Diagnosis:: Hypertension ICD-10 I10 Resting Blood Pressure:: 98/56 [place] [employer] Hypertension Guidelines: [place] [employer] Hypertension Guidelines. Normal BP Less than 120/80. Elevated BP 120/80. Hypertension Stage 1: BP 130-139/80-89. Hypertesnion Stage 2: BP 140 or higher/90 or higher. Hypertension Crisis: BP higher than 180/120 Outcomes/Goals: Able to verbalize/achieve optimal blood pressure <130/80, Incorporates diet changes & exercise for blood pressure control by DC, Other additional outcomes/goals Interventions/plan: Instruct on optimal blood pressure, hypertension & medications, Instruct on effects of sodium, alcohol, stress, exercise &hypertension, Other additional plan/interventions - Tobacco Cessation Referral Smoking Cessation Referral:: No Individual Education/Counseling:: No Education Schedule Given:: Yes Core - 30-Day Assessment Core - 60-Day Assessment Core - 90 Day Assessment Core - Final Assessment Psychosocial - Initial Assess - VIsit Date of Eval: 10/17/22 - initial eval History of previous Mental disease:: Yes - depression History of Emotional Disorders: Depression - pt is taking meds - Outcomes/Goals: See list Psychosocial Outcomes/Goals:: ID's personal stressors & 2 strategies to manage stress by discharge, Other Additional outcome/goals: - Intervention/Plan: See List Interventions/Plan:: Assess stressors,coping strategies & signs of derpression on admission, Instruct/assist pt to develop coping & personal stress Mgt strategies, Refer to Behavioral Health if appropriate, Refer to Physician if appropriate, Instruct patient to recognize signs & symptoms of depression, Instruct patient to recog, Other additional plan/intervention Psychosocial - 30-Day Assess Psychosocial - 60-Day Assess Psychosocial - 90-Day Assess Psychosocial - Final Assessmen Patient Health Questionnaire Initial Assessment 1. Little interest or pleasure in doing things: Nearly every day 2. Feeling down, depressed, or hopeless: More than half the days 3. Trouble falling or staying asleep, or sleeping too much: Several days 4. Feeling tired or having little energy: More than half the days 5. Poor appetite or overeating: Not at all 6. Feeling bad about yourself -- or that you are a failure or have let yourself or your family down: Several days 7. Trouble concentrating on things, such as reading the newspaper or watching television: More than half the days 8. Moving or speaking so slowly that other people could have noticed. Or the opposite - being so fidgety or restless that you have been moving around a lot more than usual: Not at all 9. Thoughts that you would be better off , or of hurting yourself in some way: Not at all How difficult have these problems made it for you to do your work, take care of things at home, or get along with other people?: Somewhat difficult Total Score: 11 JOHANN-Q SV Test - Statements CAD is a disease of the arteries in the heart: False Examples of risk factors for heart disease: True Angina is chest pain or discomfort: True The benefits of resistance training include: True Eating more meat and dairy products: False Anti-platelet medications such as aspirin are important: True The only effective way to manage stress: False An exercise warm-up slowly increases heart rate: True Prepared, processed foods usually have high sodium: True Depression is common after a heart attack: True The statin medications lower cholesterol: True To control blood pressure, lower the amount of sodium: True If someone gets chest discomfort during walking: I Don't Know Transfats are partially hydrogenated vegetable oils: True Sleep apnea that is not treated increases the risk: False To control cholesterol, one should become a vegetarian: False Someone knows if he/she is exercising at the right level: True Diabetes cannot be prevented with exercise & health eating: False Stress is a large risk for heart attack: True A diet that can help lower blood pressure is rich in: True - Total Score Total Correct Responses: 19 Self-Efficacy Initial Assessment We would like to know how confident you are in doing certain activities. Please select your confidence level for:: Select your confidence level for the following using the scale 1-10 where 1 is not at all confident and 10 is totally confident. Your score is the average of all 6 responses. Fatigue: How confident are you that you can keep the fatigue caused by your disease from interfering with the things you want to do? Select Number: 8 Physical Discomfort or Pain: How confident are you that you can keep the physical discomfort or pain of your disease from interfering with the things you want to do? Select Number: 8 Emotional Distress: How confident are you that you can keep the emotional distress caused by your disease from interfering with the things you want to do? Select Number: 10 Other Symptoms or Health Problems: How confident are you that you can keep other symptoms or health problems from interfering with the things you want to do? Select Number: 8 Different Tasks and Activities: How confident are you that you can do the different tasks and activities needed to manage your health condition so as to reduce your need to see a doctor? Select Number: 8 Medication: How confident are you that you can do things other than just taking medication to reduce how much your illness affects your everyday life? Select Number: 10 Total Score:: 8 Nutrition Survey - Nutrition Survey Initial Have you lost >10 lbs over the past 2 months without trying?: Yes Are you following a special diet at home for diabetes, low fat, or low salt?: Yes Are you interested in meeting with a dietitian for help understanding your diet?: No Do you eat less than 3 meals a day?: No Do you eat fatty meats (zavala, sausage, ribs, etc), fried foods, desserts, large amounts of salad dressings, margarine, butter, or cheese most days?: Yes Do you have food allergies? [Enter types in comment field]: No Do you eat in restaurants more than 3 times a week?: Yes Do you season food with salt, seasoning salt, or garlic salt?: No Do you used canned, boxed, frozen meals, or soups, seasoning packets?: Yes Total Score:: 5
[2022-10-17 09:01] VITALS: BP 98/56; BMI 30.1
== END | disposition home or self-care (01) ==
LOC: CR 07:50
PROVIDERS: PCP Family Medicine; Visit Provider Internal Medicine Cardiovascular Disease
DX: Z95.1 Presence of aortocoronary bypass graft (principal)

== ENCOUNTER 2022-11-05 08:00 | Outpatient (RCR) | payer BC, SELFPAY ==
[2022-10-17 09:01] VITALS: BMI 30.1
--- NOTE | 2022-11-16 10:15 | CR.ITP_ITS ---
Diagnosis Exercise - 30-day Assessment - Visit Date of Eval: 11/16/22 Session #:: 7 - Physician Prescribed Exercise Modalities: Treadmill, Airdyne, NuStep Frequency: 2x/week for 18 weeks [36 sessions] Intensity: 60-80% of age predicted maximum heart rate reserve Current METSs:: 4 Target Heart Rate:: 115-131 Current RPE:: 12 Maximum Excercise HR:: 122 Resting Blood Pressure: 128/60 Maximum Exercise Blood Pressure: 120/50 EKG Type: SR/BBB to ST with occas PVC - Outcomes & Goals Goals:: Verbalizes understanding of THR, RPE & goal METS by session 6, Documents in home exercise log/reports 30 min aerobic 5 day/wk by DC, Demonstrates accurate pulse taking by DC, Other additional outcome/goals: see below - Intervention & Plan Exercise Program Goals: Instruct on personal THR & RPE, Instruct on MET level & personal MET goal, Show patient to take own pulse /validate performance until accurate, Instruct on home exercise, Other additional plan/int - 30-day Reassessments 30 day Reassessments:: Progressing - THR explained - Physical Activity Home Exercise Physical Activity - Home Exercise: Safe Exercise, Warm-up, Self-monitoring, Cool-Down, Home Exercise > 30 min Daily, Sitting Time <3 hours/daily - Outcomes & Goals Outcomes/Goals: Demonstrates correct Warm-up/exercise Cool-Down (S3) if = 2.5 METs, Verbalizes symptoms of exercise intolerance by Session 3 (S3), Demonstrate safe equipment use (S3) & follows exercise prescrition (6), Other: See below - Intervention & Plan Plan/Intervention: Instruct warm-up & cool-down if exercising at > 2 METs, Instruct on symptoms of exercise intolerance & actions to take, Instruct & monitor on saf, Assess intial functional capacity & safety risk, Other See below - 30-day Reassessments 30 day Reassessments:: Progressing - warm up explained Nutrition - Initial Assessment Nutrition - 30-Day Assessment - Program Goals Nutrition Program Goals: LDL <100 optimal. 100 - 129 Near optimal. 130 - 159 Borderline High. 160 - 189 High. Total Cholesterol <200 desirable. 200 - 239 Borderline High. >/= 240 High. HDL < 40 Low >/=60 High. Triglycerides <150 desirable. <199 optimal. VlDL 5 - 40. HgbA1C <7%. BMI <25 Patient has diagnosis of Hyperlipidemia (ICD E78)?: Yes - Visit Date of Assessment:: 11/16/22 Session #:: 7 - Cholesterol/Lipids (Other Core Measures) Determine presence & major risk factors that modify LDL goal: Hypertension or hypertensive medication, Low HDL cholesterol <40 mg/dL*, Family history of premature CHD in Male < 55 years: female <65 yearsFa, Age men > 45 years; women >/= 55 years Outcomes/Goals: Pt IDs own risk factors & lifestyle modifications by Session 10, Verbalizes symptoms of angina & response by session 3., Pt independently manages, Other Additional Outcomes/Goals: Intervention/Plan: Advocate for lipid panel cholesterol medication if applicable, Instruct on personal lipid levels & lipid goals/NCEP guidelines, Instruct on cholesterol, Other additional plan/int - Diabetes (Other Core Measures) Diabetes Type: Diagnosis Type II ICD-10 E11 Insulin dependent injection/pump?: No Non-Insulin Dependent?: Yes Do you monitor your blood sugar at home?: Yes Outcomes/Goals:: Able to state symptoms of, Able to state, Able to state, Other additional Intervention/Plan:: Instruct on, Refer to, Instruct on, Other - Weight Mgt (Other Care) Height: 5 ft 11 in Weight:: 97.976 kg BMI: 30.1 Diagnosis Overweight/Obesity BMI> 30% ICD-10 E66: Yes Diagnosis High BMI/Morbid Obesity BMI> 35% ICD-10 Z68: No Outcomes/Goals: Pt sets, maintains & shows weight loss goal & trend during rehab, Other additional outcomes/goals Intervention/Plan: Instruct on ideal BMI & set weight loss goal w/patient, Assist pt to ID & incorporate diet changes for weight loss by S9, Refer to Structured Weight Loss program as appropriate, Encourage goal of using 250- 300dcal per session for weight loss, Other additional plan/interventions - Healthy Eating Habits Will attend diet classes:: Yes Outcomes/Goals:: Consume diet rich in vegs,fruits,whole grain/high fiber,fish,lean meat, Limit sat/trans fats,cholesterol & added salts & sugars, Other additional outcome/goals: Intervention/Plan:: Assess current eating habits, Other Additional plan/interventions - Education Gave educational materials for:: Signs & symptoms of hypoglycemia, Signs & symptoms of hyperglycemia, Relate diabetes to coronary artery disease, Healthy eating Nutrition - 60-Day Assessment Nutrition - 90-Day Assessment Nutrition - Final Assessment Core - Initial Assessment Core - 30-Day Assessment - Visit Date of Eval: 11/16/22 Session #:: 7 - Medication Compliance Preventative Medication(s):: Statin/lipid, Beta gideon, ARB (Angiotensi Rcap) Doesn?t believe in the benefits of treatment?: No Believes medications are unnecessary or harmful?: No Has a concern about medication side effects?: No Expresses concern over the cost of medications?: No Outcomes/Goals: Verbalizes medications,desired effect & common side effects @ DC, Pt self-reports following medication regimen, Keeps card in wallet w/medications listed by DC, Other additional outcome/goals: Interventions/plans: Instruct on medication effects & side effects, Review medication list w/patient every two weeks, Instruct importance of taking meds as ordered & assist problem solving, Other additional 30-day Reassessments:: Progressing - encouraged to take meds - Tobacco Use Tobacco Use: Cigarettes Outcomes/Goals: Smoking cessation achieved or maintained by discharge, Identify aids/strategies for achieving smoking cessation by session 6, Other additional outcome/goals - Hypertension Hypertension Diagnosis:: Hypertension ICD-10 I10 Resting Blood Pressure:: 128/60 [employer] Hypertension Guidelines: [place] [employer] Hypertension Guidelines. Normal BP Less than 120/80. Elevated BP 120/80. Hypertension Stage 1: BP 130-139/80-89. Hypertesnion Stage 2: BP 140 or higher/90 or higher. Hypertension Crisis: BP higher than 180/120 Peak Exercise Blood Pressure:: 120/50 Outcomes/Goals: Able to verbalize/achieve optimal blood pressure <130/80, Incorporates diet changes & exercise for blood pressure control by DC, Other additional outcomes/goals Interventions/plan: Instruct on optimal blood pressure, hypertension & medications, Instruct on effects of sodium, alcohol, stress, exercise &hypertension, Other additional plan/interventions - Tobacco Cessation Referral Smoking Cessation Referral:: No Individual Education/Counseling:: No Education Schedule Given:: Yes Core - 60-Day Assessment Core - 90 Day Assessment Core - Final Assessment Psychosocial - Initial Assess Psychosocial - 30-Day Assess - VIsit Date of Eval: 11/16/22 Session #:: 7 History of previous Mental disease:: Yes History of Emotional Disorders: Depression - on meds - Outcomes/Goals: See list Psychosocial Outcomes/Goals:: ID's personal stressors & 2 strategies to manage stress by discharge, Other Additional outcome/goals: - Intervention/Plan: See List Interventions/Plan:: Assess stressors,coping strategies & signs of derpression on admission, Instruct/assist pt to develop coping & personal stress Mgt strategies, Refer to Behavioral Health if appropriate, Refer to Physician if appropriate, Instruct patient to recognize signs & symptoms of depression, Instruct patient to recog, Other additional plan/intervention Psychosocial - 60-Day Assess Psychosocial - 90-Day Assess Psychosocial - Final Assessmen Patient Health Questionnaire 30-Day Re-eval Assessment 1. Little interest or pleasure in doing things: Nearly every day 2. Feeling down, depressed, or hopeless: More than half the days 3. Trouble falling or staying asleep, or sleeping too much: Several days 4. Feeling tired or having little energy: More than half the days 5. Poor appetite or overeating: Not at all 6. Feeling bad about yourself -- or that you are a failure or have let yourself or your family down: Several days 7. Trouble concentrating on things, such as reading the newspaper or watching television: More than half the days 8. Moving or speaking so slowly that other people could have noticed. Or the opposite - being so fidgety or restless that you have been moving around a lot more than usual: Not at all 9. Thoughts that you would be better off , or of hurting yourself in some way: Not at all How difficult have these problems made it for you to do your work, take care of things at home, or get along with other people?: Somewhat difficult Total Score: 11 Self-Efficacy 30-Day Re-eval Assessment We would like to know how confident you are in doing certain activities. Please select your confidence level for:: Select your confidence level for the following using the scale 1-10 where 1 is not at all confident and 10 is totally confident. Your score is the average of all 6 responses. Fatigue: How confident are you that you can keep the fatigue caused by your disease from interfering with the things you want to do? Select Number: 8 Physical Discomfort or Pain: How confident are you that you can keep the physical discomfort or pain of your disease from interfering with the things you want to do? Select Number: 8 Emotional Distress: How confident are you that you can keep the emotional distress caused by your disease from interfering with the things you want to do? Select Number: 10 Other Symptoms or Health Problems: How confident are you that you can keep other symptoms or health problems from interfering with the things you want to do? Select Number: 8 Different Tasks and Activities: How confident are you that you can do the different tasks and activities needed to manage your health condition so as to reduce your need to see a doctor? Select Number: 8 Medication: How confident are you that you can do things other than just taking medication to reduce how much your illness affects your everyday life? Select Number: 10 Total Score:: 8 Nutrition Survey
[2022-11-16 10:30] VITALS: BP 120/50; BP 128/60; BMI 30.1
== END 2022-11-17 23:59 ==
LOC: CR 08:00
PROVIDERS: PCP Family Medicine; Visit Provider Internal Medicine Cardiovascular Disease
DX: Z98.890 Other specified postprocedural states (principal)
CPT/HCPCS: 93798

== ENCOUNTER 2022-11-26 10:18 | Outpatient (RCR) | payer BC, SELFPAY ==
[2022-11-18 00:08] VITALS: BP 120/50; BP 128/60
== END 2022-12-18 23:59 ==
LOC: CR 10:18
PROVIDERS: PCP Family Medicine; Visit Provider Internal Medicine Cardiovascular Disease
DX: Z98.890 Other specified postprocedural states (principal)
CPT/HCPCS: 93798

== ENCOUNTER 2023-04-13 09:11 | Emergency (ER) | payer MEDICARE, SELFPAY ==
[2023-04-13 09:11] VITALS: BP 140/81; PULSE 76; RESP 16; TEMP 37.1; O2SAT 98; BMI 29.5
--- NOTE | 2023-04-13 09:18 | RAD_ITS ---
STUDY: X-RAY - PELVIS REASON FOR EXAM: Male, 67 years old. Pain. TECHNIQUE: One view of the pelvis was obtained. COMPARISON: 12/14/2021 FINDINGS: There is no evidence of fracture or dislocation. There are stable mild degenerative changes. There are no radiodense foreign bodies. RAD/Pelvis 1 or 2 Views IMPRESSION: No fracture or dislocation in the pelvis. Stable mild degenerative changes. Electronically Signed: Clarence Baeza MD at 9:40 EDT ,
--- NOTE | 2023-04-13 09:21 | EDS_ITS ---
HPI History of Present Illness Chief Complaint: Fall Detail of Chief Complaint: Injury due to fall last evening Informant: patient Onset/Context/Timing Onset: Yesterday and Hours Mechanism/Context: Blunt Injury and Fall (Missed last step and struck board on wall left lower back/pelvic region) Location of pain/injuries: - (Previously described) Quality of Pain: Aching Location: Left lower back in the region of the posterior iliac spine Current Severity: Mild Maximum Severity: Moderate Worsened by: Movement and palpation Relieved by: Nothing Associated Symptoms Associated Symptoms: Negative for Parasthesias, Weakness, Loss of function, Inability to ambulate, Loss of consciousness or Amnesia Narrative Narrative: Patient walking down steps in the dark. Missed the last step. Fell striking his left lower back against a wooden edge. Patient denies head trauma. Patient denies loss of conscious and is not amnestic. Denies neck pain. He denies paresthesia, anesthesia medics. Complains of a funny sensation left calf area. He reported to triage. His area of trauma is near the pelvis/left lower back. He denies pain in the left inguinal area. He is able to ambulate. He is able to bear weight with no discomfort in the hip region. Patient has urinated since fall and has not noted any blood or discoloration of urine. He is not on an antithrombotic or anticoagulant. Patient does have history of aortic dissection repair, thoracic aortic aneurysm without rupture, hypercholesterolemia, coronary disease, essential hypertension. Tetanus Immunization: 5-10 years Prior similar symptoms: No Recent Illness/Hospitalization: No PFSH PFSH Medical History Atherosclerotic heart disease of [place] coronary artery without angina pectoris Diabetes Essential hypertension IBS (irritable bowel syndrome) Pure hypercholesterolemia Thoracic aortic aneurysm without rupture Tobacco abuse Home Medications cholecalciferol (vitamin D3) 25 mcg (1,000 unit) tablet 2,000 unit PO DAILY 03/24/20 [History Last Taken Unknown] metformin 500 mg tablet 500 mg PO DAILY 03/24/20 [History Last Taken Unknown] aspirin 81 mg chewable tablet 81 mg PO DAILY@0800 04/07/20 [History Last Taken Unknown] albuterol sulfate 90 mcg/actuation aerosol inhaler (Ventolin HFA) 2 puff inhalation Q6H PRN Wheezing 11/21/20 [History Last Taken Unknown] coenzyme Q10 100 mg capsule (Co Q-10) 200 mg PO DAILY 07/05/21 [History Last Taken Unknown] fluticasone fur. 200 mcg-umeclid 62.5 mcg-vilant 25 mcg inhalat.powder (Trelegy Ellipta) 1 inh inhalation DAILY 01/15/22 [History Last Taken Unknown] acetaminophen 500 mg tablet 500 mg PO Q6H PRN 09/03/22 [History Last Taken Unknown] aluminum-mag hydroxide-simethicone 200 mg-200 mg-20 mg/5 mL oral susp (Maalox Advanced) 30 ml PO TID PRN 09/03/22 [History Last Taken Unknown] guaifenesin 600 mg tablet, extended release 12 hr (Mucinex) 600 mg PO Q12H PRN 09/03/22 [History Last Taken Unknown] lidocaine 4 % topical patch 1 patch topical DAILY PRN 09/03/22 [History Last Taken Unknown] magnesium hydroxide 400 mg/5 mL oral suspension (Milk of Magnesia) 30 ml PO DAILY PRN 09/03/22 [History Last Taken Unknown] oxycodone 5 mg tablet 5 mg PO Q6H PRN 09/03/22 [History Last Taken Unknown] vortioxetine 20 mg tablet (Trintellix) 20 mg PO DAILY 09/11/22 [History Last Taken Unknown] atorvastatin 40 mg tablet 40 mg PO QHS #90 tabs 10/02/22 [Rx Last Taken Unknown] losartan 25 mg tablet 12.5 mg PO DAILY #45 tabs 10/02/22 [Rx Last Taken Unknown] metoprolol tartrate 50 mg tablet 50 mg PO BID #180 tabs 12/28/22 [Rx Last Taken Unknown] abatacept 125 mg/mL subcutaneous syringe (Orencia) 125 mg subcut QWEEK 01/17/23 [History Last Taken Unknown] fluticasone propionate 50 mcg/actuation nasal spray,suspension (Flonase Allergy Relief) 1 spray intranasal Q12H PRN allergy symptoms 01/17/23 [History Last Taken Unknown] nitroglycerin 0.4 mg sublingual tablet 0.4 mg sublingual Q5-15M PRN chest pain #25 tabs 01/17/23 [Rx Last Taken Unknown] hydrocodone-acetaminophen 5-325mg 5mg-325mg 1 tab PO Q6H PRN PRN Pain 3 days #10 TABLETS 04/13/23 [Rx Last Taken Unknown] Allergy/AdvReac Type Severity Reaction Status Date / Time Penicillins Allergy Swelling Verified 04/13/23 09:14 Family History Father Heart disease Mother Heart disease Surgical History History of coronary artery bypass surgery (~03/08/20) History of foot surgery History of hernia repair History of left heart catheterization (12/31/19) Status post aortic dissection repair (~08/17/22) Social History household members: spouse Smoking Status: Current every day smoker tobacco type: cigarettes alcohol intake: current details: daily substance use type: does not use ROS ROS ED Constitutional Constitutional ED: Denies chills, fever(s), subjective, sweats or weight loss Eyes Eyes: Denies blurry vision or change in vision Cardiovascular Cardiovascular: Denies chest pain or palpitations Respiratory/Chest Respiratory/Chest: Denies dyspnea Genitourinary Genitourinary ED: Denies dysuria, hematuria or urinary frequency Musculoskeletal Musculoskeletal: Reports back pain; Denies arthralgias, myalgias or neck pain Integumentary Reports Abrasions; Denies rash Neurologic Neurologic: Denies headache(s), paresthesias or weakness Hematologic/Lymphatic Hematologic/Lymphatic: Denies easy bleeding or easy bruising EXAM Physical Exam Const Vital Signs: 04/13/23 09:11 04/13/23 09:18 Temperature 98.7 F Temperature Source Temporal Pulse Rate 76 Respiratory Rate 16 Respiratory Effort Normal Respiratory Depth Normal Respiratory Pattern Normal Blood Pressure 140/81 H Blood Pressure Mean 100 Pulse Ox 98 Oxygen Delivery Method Room Air Room Air Positive well nourished and well developed Constitutional Narrative: Patient noted to have slight limp with walking. General Appearance ED: well developed and NAD HEENT atraumatic; Negative for tenderness Nose: Negative for septum abnormal Eyes PERRL and EOMs intact bilaterally Chest Wall inspection of chest normal Resp normal respiratory effort and clear to auscultation bilaterally Cardio regular rhythm, S1 normal heart sound, S2 normal heart sound and no murmurs GI normal to inspection, nondistended, normoactive bowel sounds, non-tender and non-distended Back/Spine no thoracic nor lumbar tenderness; Negative for normal to inspection Back/Spine Narrative: There is pain outpatient the proximity of the left posterior iliac spine. There is also an abrasion noted left lower back. There is no midline pain over the lumbar spine or sacrum. There is no pain ovation over the left ischial tuberosity. General Back: Negative for CVA tenderness Thoracic Spine / Upper Back: Negative for thoracic spinal tenderness Extremity normal to inspection and full ROM Extremity Narrative: There is no joint line tenderness of the left knee. There is no effusion. There is no Elekta varus valgus stress testing. There is no laxity with Ventura's test. Patient does have stigmata of peripheral arterial disease. Neuro oriented x3, CN's II-XII intact bilaterally, moves all extremities, no focal motor deficits, no sensory deficits noted and No gait normal Shola Coma Scale: document GCS findings Spontaneous Obeys Commands Oriented 15 Sensorium / Orientation: alert Skin skin turgor normal and no jaundice Trauma: abrasion MDM MDM MDM Narrative Medical decision making narrative: X-ray was obtained to evaluate for contusion versus fracture. Patient's prior records were reviewed and he is not on a anticoagulant. 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 The right and left hip joint appear unremarkable.) Treatment and Re-Evaluation Narrative: Plan discharge with short course of opiate analgesia, ice and appropriate home- going instructions Discharge Plan Triage Chief Complaint: Fall ED Provider: Walker Faust Dx/Rx/DC Orders Clinical Impression: Injury due to fall, Essential hypertension, Status post aortic dissection repair, Atherosclerotic heart disease of [place] coronary artery without angina pectoris, Contusion of lower back and pelvis, initial encounter, Abrasion of back Instructions: ED Back Contusion, ED Abrasion Prescriptions: New hydrocodone-acetaminophen [hydrocodone-acetaminophen] 5-325 mg tablet 1 tab PO Q6H PRN PRN (Reason: Pain) 3 Days Qty: 10 0RF No Action albuterol sulfate [Ventolin HFA] 90 mcg/actuation HFA aerosol inhaler 2 puff INHALATION Q6H PRN (Reason: Wheezing) metformin 500 mg tablet 500 mg PO DAILY coenzyme Q10 [Co Q-10] 100 mg capsule 200 mg PO DAILY Trelegy Ellipta 200-62.5-25 mcg blister with device 1 inh inhalation DAILY Orencia 125 mg/mL syringe 125 mg subcut QWEEK fluticasone propionate [Flonase Allergy Relief] 50 mcg/actuation spray,suspension 1 spray intranasal Q12H PRN (Reason: allergy symptoms) Rx Instructions: administer into each nostril nitroglycerin 0.4 mg tablet, sublingual 0.4 mg SUBLINGUAL Q5-15M PRN (Reason: chest pain) Qty: 25 6RF Rx Instructions: until response; do not exceed 3 doses per episode Trintellix 20 mg tablet 20 mg PO DAILY alum-mag hydroxide-simeth [Maalox Advanced] 200-200-20 mg/5 mL suspension 30 ml PO TID PRN Rx Instructions: administer between meals guaifenesin [Mucinex] 600 mg tablet extended release 12hr 600 mg PO Q12H PRN lidocaine 4 % adhesive patch,medicated 1 patch topical DAILY PRN magnesium hydroxide [Milk of Magnesia] 400 mg/5 mL suspension 30 ml PO DAILY PRN oxycodone 5 mg tablet 5 mg PO Q6H PRN acetaminophen 500 mg tablet 500 mg PO Q6H PRN atorvastatin 40 mg tablet 40 mg PO QHS Qty: 90 3RF cholecalciferol (vitamin D3) 25 mcg (1,000 unit) tablet 2,000 unit PO DAILY aspirin 81 mg tablet,chewable 81 mg PO DAILY@0800 losartan 25 mg tablet 12.5 mg PO DAILY Qty: 45 3RF metoprolol tartrate 50 mg tablet 50 mg PO BID Qty: 180 3RF Primary Care Provider: Gianfranco West Referrals: Gianfranco West MD [Primary Care Provider] - 1 Week if not improving Activity Restrictions/Additional Instructions: Apply ice to your lower back 6-10 times a day Disposition Disposition: Home, Self Care
[2023-04-13 10:02] VITALS: BP 134/62; PULSE 78; RESP 16; TEMP 36.6; O2SAT 100
== END 2023-04-13 10:02 | disposition home or self-care (01) ==
LOC: ED 09:47
PROVIDERS: Emergency Provider Emergency Medicine; PCP Family Medicine; Visit Provider Emergency Medicine
DX: S30.0XXA Contusion of lower back and pelvis, initial encounter (principal); S20.419A Abrasion of unspecified back wall of thorax, initial encounter; I25.10 Atherosclerotic heart disease of native coronary artery without angina pectoris; I10 Essential (primary) hypertension; F17.210 Nicotine dependence, cigarettes, uncomplicated; Z95.1 Presence of aortocoronary bypass graft; W10.9XXA Fall (on) (from) unspecified stairs and steps, initial encounter
CPT/HCPCS: 72170; 99282

== ENCOUNTER → 2023-07-29 | Outpatient (CLI) | payer MEDICARE, SELFPAY ==
[2023-07-29 09:41] LABS: AST(SGOT) 11 U/L (15-37); Alanine Aminotransfer ALT/SGPT 18 U/L (16-61); Albumin, Serum 3.7 g/dL (3.2-5.0); Alkaline Phosphatase 118 U/L (45-117); Bilirubin, Direct 0.15 mg/dL (0.00-0.30); Cholesterol 142 mg/dL (200); Globulin 3.8 g/dL (2.2-4.2); High Density Lipoprotein 48 mg/dL; Protein, Total 7.5 g/dL (6.4-8.2); Triglycerides 82 mg/dL; Very Low Density Lipoprotein 16 mg/dL (5-40)
== END | disposition home or self-care (01) ==
PROVIDERS: PCP Family Medicine; Referring Provider Nurse Practitioner Gerontology; Visit Provider Nurse Practitioner Gerontology
DX: E78.00 Pure hypercholesterolemia, unspecified (principal)
CPT/HCPCS: 36415; 80061; 80076

== ENCOUNTER → 2023-09-24 | Outpatient (CLI) | payer MEDICARE, SELFPAY ==
--- NOTE | 2023-09-24 15:34 | RAD_ITS ---
STUDY: X-RAY - LEFT HAND REASON FOR EXAM: Male, 68 years old. PAIN TECHNIQUE: 3 view(s) of the hand. COMPARISON: None. FINDINGS: Normal radiocarpal articulation. Normal distal radioulnar joint. Normal visualized carpal bones. Normal carpal articulations Normal carpometacarpal articulation of the thumb. Normal second through fifth carpometacarpal joints. Normal metacarpi. Normal metacarpophalangeal joint of the thumb. Normal interphalangeal joint of the thumb. Normal proximal and distal phalanges of the thumb. Normal metacarpophalangeal joints of the second through fifth fingers. There is mild articular joint space narrowing of the proximal and distal interphalangeal joints of the second through fifth fingers, but without erosive changes or periarticular soft tissue swelling. Normal phalanges of the second through fifth fingers. Soft tissue swelling. RAD/Hand Min 3 Views IMPRESSION: Degenerative changes of the interphalangeal joints. Soft tissue swelling. Electronically Signed: Nba Mccabe MD at 14:51 EST ,
--- NOTE | 2023-09-24 15:34 | RAD_ITS ---
STUDY: X-RAY - RIGHT HAND REASON FOR EXAM: Male, 68 years old. PAIN TECHNIQUE: 3 view(s) of the hand. COMPARISON: None. FINDINGS: Normal radiocarpal articulation. Normal distal radioulnar joint. Normal visualized carpal bones. Normal carpal articulations Normal carpometacarpal articulation of the thumb. Normal second through fifth carpometacarpal joints. Normal metacarpi. Normal metacarpophalangeal joint of the thumb. Normal interphalangeal joint of the thumb. Normal proximal and distal phalanges of the thumb. Normal metacarpophalangeal joints of the second through fifth fingers. There is mild articular joint space narrowing of the proximal and distal interphalangeal joints of the second through fifth fingers, but without erosive changes or periarticular soft tissue swelling. Normal phalanges of the second through fifth fingers. Soft tissue swelling. RAD/Hand Min 3 Views IMPRESSION: Mild joint space narrowing of the proximal and distal interphalangeal joints. Soft tissue swelling. Electronically Signed: Nba Mccabe MD at 14:50 EST ,
[2023-09-24 17:40] LABS: Absolute Lymphocyte Count 1.63 X10^3/uL (0.83-4.51); Basophil# 0.08 X10^3/uL; Eosinophil# 0.26 X10^3/uL; Eosinophils% 3.4 % (0-5); Hematocrit 38.8 % (40-54); Hemoglobin 12.9 g/dL (13.0-16.5); Lymphocyte # 1.63 X10^3/ul (0.83-4.51); Lymphocyte % 21.1 % (19-41); Mean Corp Hgb Conc 33.2 g/dL (32-36); Mean Corpuscular Hgb 30.7 pg (27.0-32.0); Mean Corpuscular Volume 92.4 fL (80-94); Mean Platelet Vol. 9.7 fl (6.2-12.0); Monocyte# 0.72 X10^3/uL; Monocyte% 9.3 % (0-10); NRBC Flagged by Analyzer 0 % (0-5); Neutrophil % 64.9 % (47-70); Platelet Count 288 K/mm3 (150-450); RBC Distribution Width CV 14.3 % (11.6-14.6); RBC Distribution Width SD 48.5 fl (35.1-43.9); White Blood Count 7.7 K/mm3 (4.4-11.0)
[2023-09-24 18:15] LABS: ALB/GLOB Ratio 0.9 RATIO (0.9-2.4); AST(SGOT) 11 U/L (15-37); Alanine Aminotransfer ALT/SGPT 17 U/L (16-61); Albumin, Serum 3.5 g/dL (3.2-5.0); Alkaline Phosphatase 108 U/L (45-117); Anion Gap 5 (5-15); BUN 18 mg/dL (7-18); BUN/Creat Ratio 18.3 RATIO (10-20); Calcium,Total 9.1 mg/dL (8.5-10.1); Chloride 109 mmol/L (98-107); Creatinine, Serum 0.98 mg/dL (0.70-1.30); EST Glomerular Filtration Rate 81 mL/min (>60); Est Glom Filt Rate - Afr Amer 98 mL/min (>60); Globulin 3.9 g/dL (2.2-4.2); Glucose 100 mg/dL (74-106); Potassium 4.3 mmol/L (3.5-5.1); Protein, Total 7.4 g/dL (6.4-8.2); Sodium Level 138 mmol/L (136-145)
[2023-09-24 18:21] LABS: Erythrocyte Sedimentation Rate 39 mm/hr (0-20)
[2023-09-24 19:48] LABS: Hepatitis B Surface Antibody Non-Reactive; Hepatitis B Surface Antigen Non-Reactive (Nonreactive); Hepatitis C Antibody Non-Reactive (Nonreactive)
[2023-09-26 12:09] LABS: ANTINUCLEAR ANTIBODIES DIRECT Negative (Negative)
[2023-09-27 17:07] LABS: CCP IgG Antibodies > 250 units (0-19); G6PD Quant Test 244 (127-427); QNTFERON TB Mitogen Value > 10.00 IU/mL (.); QNTFERON TB Nil Value 0.01 IU/mL (.); QNTFERON TB1+ Ag Value 0.02 IU/mL (.); QNTFERON TB2+ Ag Value 0.03 IU/mL (.); QNTIFERON TB Positive Criteria Negative (Negative)
== END | disposition home or self-care (01) ==
LOC: MTLAB 15:33
PROVIDERS: PCP Family Medicine; Referring Provider Internal Medicine Rheumatology; Visit Provider Internal Medicine Rheumatology
DX: M05.79 Rheumatoid arthritis with rheumatoid factor of multiple sites without organ or systems involvement (principal); Z79.899 Other long term (current) drug therapy
CPT/HCPCS: 36415; 73130; 80053; 82955; 85025; 85652; 86038; 86140; 86200; 86431; 86480; 86706; 86803; 87340

== ENCOUNTER 2023-11-08 21:12 | Emergency (ER) | payer MEDICARE, SELFPAY ==
[2023-11-08 21:14] VITALS: BP 181/81; PULSE 89; RESP 16; TEMP 36.6; O2SAT 99; BMI 30.2
[2023-11-08 21:23] VITALS: TEMP 37.5
[2023-11-08 21:27] VITALS: BP 181/81; PULSE 89; RESP 16; TEMP 37.5; O2SAT 99
--- NOTE | 2023-11-08 21:38 | EX.ED.DYSGE1 ---
HPI History of Present Illness Chief Complaint: Fever Informant: patient and spouse/S.O. Onset/Context/Timing Onset: Yesterday Narrative Narrative: Patient presents secondary to fever and chills. He is currently on methotrexate therapy secondary to arthritis. He states he was told his inflammatory levels were so high that he should not take Tylenol or ibuprofen at this time until these can be better monitored. He reports developing chills last evening. He does have a slight cough that is worse than his baseline chronic cough. His nose has been running more than normal. No vomiting or diarrhea. No rash or skin lesions. This afternoon he developed a low-grade fever. [facility] Medical History (Updated 11/08/23 @ 23:[address] Beth Briones MD) Arthritis Atherosclerotic heart disease of [place] coronary artery without angina pectoris Diabetes Essential hypertension IBS (irritable bowel syndrome) Pure hypercholesterolemia Thoracic aortic aneurysm without rupture Tobacco abuse Home Medications cholecalciferol (vitamin D3) 25 mcg (1,000 unit) tablet 2,000 unit PO DAILY 03/24/20 [History Last Taken Unknown] metformin 500 mg tablet 500 mg PO DAILY 03/24/20 [History Last Taken Unknown] aspirin 81 mg chewable tablet 81 mg PO DAILY@0800 04/07/20 [History Last Taken Unknown] albuterol sulfate 90 mcg/actuation aerosol inhaler (Ventolin HFA) 2 puff inhalation Q6H PRN Wheezing 11/21/20 [History Last Taken Unknown] coenzyme Q10 100 mg capsule (Co Q-10) 200 mg PO DAILY 07/05/21 [History Last Taken Unknown] fluticasone fur. 200 mcg-umeclid 62.5 mcg-vilant 25 mcg inhalat.powder (Trelegy Ellipta) 1 inh inhalation DAILY 01/15/22 [History Last Taken Unknown] acetaminophen 500 mg tablet 500 mg PO Q6H PRN 09/03/22 [History Last Taken Unknown] aluminum-mag hydroxide-simethicone 200 mg-200 mg-20 mg/5 mL oral susp (Maalox Advanced) 30 ml PO TID PRN 09/03/22 [History Last Taken Unknown] guaifenesin 600 mg tablet, extended release 12 hr (Mucinex) 600 mg PO Q12H PRN 09/03/22 [History Last Taken Unknown] lidocaine 4 % topical patch 1 patch topical DAILY PRN 09/03/22 [History Last Taken Unknown] magnesium hydroxide 400 mg/5 mL oral suspension (Milk of Magnesia) 30 ml PO DAILY PRN 09/03/22 [History Last Taken Unknown] metoprolol tartrate 50 mg tablet 50 mg PO BID #180 tabs 12/28/22 [Rx Last Taken Unknown] fluticasone propionate 50 mcg/actuation nasal spray,suspension (Flonase Allergy Relief) 1 spray intranasal Q12H PRN allergy symptoms 01/17/23 [History Last Taken Unknown] nitroglycerin 0.4 mg sublingual tablet 0.4 mg sublingual Q5-15M PRN chest pain #25 tabs 01/17/23 [Rx Last Taken Unknown] atorvastatin 40 mg tablet 40 mg PO QHS #90 tabs 04/29/23 [Rx Last Taken Unknown] losartan 25 mg tablet 12.5 mg (1/2 x 25 mg) PO DAILY #45 tabs 10/28/23 [Rx Last Taken Unknown] nirmatrelvir 300 mg (150 mg x2)-ritonavir 100 mg tablet,dose pack (Paxlovid) See Rx Instructions PO .COMPLEX #30 tabs 11/08/23 [Rx Last Taken Unknown] Allergy/AdvReac Type Severity Reaction Status Date / Time Penicillins Allergy Swelling Verified 11/08/23 23:34 Family History Father Heart disease Mother Heart disease Surgical History History of coronary artery bypass surgery (~03/08/20) History of foot surgery History of hernia repair History of left heart catheterization (12/31/19) Status post aortic dissection repair (~08/17/22) Social History household members: spouse Smoking Status: Current every day smoker tobacco type: cigarettes alcohol intake: current details: daily substance use type: does not use ROS ROS ED Constitutional Constitutional ED: Reports chills and fever(s) Eyes Eyes: Denies change in vision or discharge from eye(s) ENT ENT ED: Reports rhinorrhea; Denies discharge from eye(s) or sore throat Cardiovascular Cardiovascular: Denies chest pain or palpitations Respiratory/Chest Respiratory/Chest: Reports cough; Denies dyspnea Gastrointestinal Gastrointestinal: Denies abdominal pain, diarrhea, nausea or vomiting Genitourinary Genitourinary ED: Reports urinary frequency; Denies difficulty urinating or dysuria Musculoskeletal Musculoskeletal: Denies back pain or extremity pain Integumentary Denies Abrasions or rash Neurologic Neurologic: Denies headache(s) or weakness Psychiatric Psychiatric: Denies anxiety or depression Allergic/Immunologic Allergic/Immunologic ED: Denies lip swelling or urticaria EXAM Physical Exam Const Vital Signs: 11/08/23 21:14 11/08/23 21:23 11/08/23 21:27 Temperature 97.9 F 99.5 F H 99.5 F H Temperature Source Temporal Oral Oral Pulse Rate 89 89 Respiratory Rate 16 16 Respiratory Effort Respiratory Pattern Blood Pressure 181/81 H 181/81 H Blood Pressure Mean 114 114 Pulse Ox 99 99 Oxygen Delivery Method Room Air Room Air 11/08/23 21:27 11/08/23 23:05 Temperature 102.8 F H Temperature Source Oral Pulse Rate Respiratory Rate Respiratory Effort Normal Respiratory Pattern Normal Blood Pressure Blood Pressure Mean Pulse Ox Oxygen Delivery Method Positive well nourished and well developed General Appearance ED: well developed HEENT Reports moist mucous membranes Eyes EOMs intact bilaterally Chest Wall inspection of chest normal and palpation of chest normal Resp normal respiratory effort and clear to auscultation bilaterally Cardio regular rate and regular rhythm GI non-tender Palpation: soft Extremity normal to inspection Neuro oriented x3 and no sensory deficits noted Motor Exam: strength 5/5 throughout Psych mental status grossly normal Skin no rashes or lesions noted MDM MDM MDM Narrative Medical decision making narrative: Given the patient's immunosuppressed status, IV line is established. Labwork obtained to evaluate for leukocytosis, anemia, and electrolyte derangement. Chest x-ray obtained to evaluate for acute lung pathology, cardiac size, or mediastinal abnormality. Urinalysis obtained to evaluate for infection/hematuria. History & Record Review Discussion w/independent historian: Patient and Family Lab Data Attestation: I reviewed the patient's lab results. Labs: Laboratory Results - last 24 hr 11/08/23 11/08/23 21:50 23:00 WBC 7.6 RBC 4.21 L Hgb 13.4 Hct 38.3 L MCV 91.0 MCH 31.8 MCHC 35.0 RDW Std Deviation 51.1 H RDW Coeff of Marlene 15.9 H Plt Count 231 MPV 9.3 Immature Gran % (Auto) 0.400 Neut % (Auto) 69.5 Lymph % (Auto) 15.3 L [place] % (Auto) 10.7 H Eos % (Auto) 3.3 Baso % (Auto) 0.8 Absolute Neuts (auto) 5.3 Absolute Lymphs (auto) 1.17 Nucleated RBC % 0 Sodium 135 L Potassium 4.1 Chloride 104 Carbon Dioxide 26.0 Anion Gap 5 BUN 13 Creatinine 1.04 Estim Creat Clear Calc 75.65 Est GFR (MDRD) Af Amer 92 Est GFR (MDRD) Non-Af 76 BUN/Creatinine Ratio 12.5 Glucose 85 Lactic Acid 1.4 Calcium 9.1 Total Bilirubin 0.40 Direct Bilirubin 0.13 AST 12 L ALT 17 Alkaline Phosphatase 100 Total Protein 7.2 Albumin 3.3 Globulin 3.9 Urine Color Yellow Urine Clarity Clear Urine pH 6.0 Ur Specific [place] 1.015 Urine Protein Negative Urine Glucose (UA) Normal Urine Ketones Negative Urine Occult Blood 50 H Urine Nitrite Negative Urine Bilirubin Negative Urine Urobilinogen Normal Ur Leukocyte Esterase Negative Urine RBC 0-5 SEEN Urine WBC 0 SEEN Ur Squamous Epith Cells 0 SEEN Urine Bacteria 0 SEEN Urine Mucus 0 SEEN Radiography Chest X-Ray - ED: 1 View, Read by ED Physician, Chronic Changes and No Infiltrates Diagnostic Testing: Clinical Impression(s) from Imaging Studies Chest X-Ray 11/08/23 22:29 IMPRESSION: 1. Largely chronic-appearing lung changes. Difficult to exclude slight superimposed groundglass opacities but they are not convincing. 2. Normal-appearing right cardiomediastinal contour compared to August 08, 2022. There was previously bulging contour from the dilated and dissected ascending aorta seen on CTA the August 16, 2022. There has been interval repeat median sternotomy. Electronically Signed: Di Bateman MD at 23:18 EST , Treatment and Re-Evaluation :: CBC was normal white count 7.6 with a hemoglobin of 13.4. Chemistry studies unremarkable. LFTs normal. Urinalysis reveals no evidence of infection. Portable chest x-ray per my interpretation reveals chronic changes with no focal infiltrate. Radiology interpretation is reviewed. Patient's COVID test does return positive. While here patient's temperature did increase to 102.8. We discussed their desire to not take anti-inflammatories or Tylenol because of the inflammation monitoring. We discussed that with his present infection it would be reasonable for him to take Tylenol or ibuprofen to control his illness especially through this holiday weekend. He can then call his doctor on Saturday to let them know what happened. He is comfortable with that and he is given Tylenol here. Given his immunosuppression status we did discuss use of Paxlovid. He is interested in this. I will have him hold his atorvastatin while taking this but otherwise there should not be any significant interactions with his current medications. Discharge Plan Triage Chief Complaint: Fever ED Provider: Beth Briones Dx/Rx/DC Orders Clinical Impression: COVID-19 Instructions: Coronavirus Disease 2019 (COVID-19): Overview, Coronavirus Disease 2019 (COVID-19): Caring for Yourself or Others Prescriptions: New Paxlovid 300 mg (150 mg x 2)-100 mg tablets,dose pack See Rx Instructions .ROUTE .COMPLEX Qty: 30 0RF Rx Instructions: take TWO 150 mg tablets of nirmatrelvir with ONE 100 mg tablet of ritonavir twice daily for 5 days No Action albuterol sulfate [Ventolin HFA] 90 mcg/actuation HFA aerosol inhaler 2 puff INHALATION Q6H PRN (Reason: Wheezing) metformin 500 mg tablet 500 mg PO DAILY coenzyme Q10 [Co Q-10] 100 mg capsule 200 mg PO DAILY Trelegy Ellipta 200-62.5-25 mcg blister with device 1 inh inhalation DAILY fluticasone propionate [Flonase Allergy Relief] 50 mcg/actuation spray,suspension 1 spray intranasal Q12H PRN (Reason: allergy symptoms) Rx Instructions: administer into each nostril nitroglycerin 0.4 mg tablet, sublingual 0.4 mg SUBLINGUAL Q5-15M PRN (Reason: chest pain) Qty: 25 6RF Rx Instructions: until response; do not exceed 3 doses per episode alum-mag hydroxide-simeth [Maalox Advanced] 200-200-20 mg/5 mL suspension 30 ml PO TID PRN Rx Instructions: administer between meals guaifenesin [Mucinex] 600 mg tablet extended release 12hr 600 mg PO Q12H PRN lidocaine 4 % adhesive patch,medicated 1 patch topical DAILY PRN magnesium hydroxide [Milk of Magnesia] 400 mg/5 mL suspension 30 ml PO DAILY PRN acetaminophen 500 mg tablet 500 mg PO Q6H PRN cholecalciferol (vitamin D3) 25 mcg (1,000 unit) tablet 2,000 unit PO DAILY aspirin 81 mg tablet,chewable 81 mg PO DAILY@0800 metoprolol tartrate 50 mg tablet 50 mg PO BID Qty: 180 3RF atorvastatin 40 mg tablet 40 mg PO QHS Qty: 90 3RF losartan 25 mg tablet 12.5 mg PO DAILY Qty: 45 3RF Primary Care Provider: Gianfranco West Referrals: Gianfranco West MD [Primary Care Provider] - Activity Restrictions/Additional Instructions: Please hold your atorvastatin while taking Paxlovid. You may resume this once the course of Paxlovid is complete. Disposition Disposition: Home, Self Care
[2023-11-08 22:03] LABS: Absolute Lymphocyte Count 1.17 X10^3/uL (0.83-4.51); Absolute Neutrophil Count 5.3 X10^3/uL (2.0-7.7); Basophil# 0.06 X10^3/uL; Basophil% 0.8 % (0-1); Eosinophil# 0.25 X10^3/uL; Eosinophils% 3.3 % (0-5); Hematocrit 38.3 % (40-54); Hemoglobin 13.4 g/dL (13.0-16.5); Lymphocyte # 1.17 X10^3/ul (0.83-4.51); Lymphocyte % 15.3 % (19-41); Mean Corpuscular Hgb 31.8 pg (27.0-32.0); Mean Platelet Vol. 9.3 fl (6.2-12.0); Monocyte# 0.82 X10^3/uL; Monocyte% 10.7 % (0-10); NRBC Flagged by Analyzer 0 % (0-5); Neutrophil % 69.5 % (47-70); Platelet Count 231 K/mm3 (150-450); RBC Distribution Width CV 15.9 % (11.6-14.6); RBC Distribution Width SD 51.1 fl (35.1-43.9); Red Blood Count 4.21 M/mm3 (4.6-6.2); White Blood Count 7.6 K/mm3 (4.4-11.0)
[2023-11-08 22:18] LABS: AST(SGOT) 12 U/L (15-37); Alanine Aminotransfer ALT/SGPT 17 U/L (16-61); Albumin, Serum 3.3 g/dL (3.2-5.0); Alkaline Phosphatase 100 U/L (45-117); Anion Gap 5 (5-15); BUN 13 mg/dL (7-18); BUN/Creat Ratio 12.5 RATIO (10-20); Bilirubin, Direct 0.13 mg/dL (0.00-0.30); Calcium,Total 9.1 mg/dL (8.5-10.1); Chloride 104 mmol/L (98-107); Creatinine, Serum 1.04 mg/dL (0.70-1.30); EST Glomerular Filtration Rate 76 mL/min (>60); Est Glom Filt Rate - Afr Amer 92 mL/min (>60); Estimated Creatinine Clearance 75.65 ml/min; Globulin 3.9 g/dL (2.2-4.2); Glucose 85 mg/dL (74-106); Potassium 4.1 mmol/L (3.5-5.1); Protein, Total 7.2 g/dL (6.4-8.2); Sodium Level 135 mmol/L (136-145)
--- NOTE | 2023-11-08 22:29 | RAD_ITS ---
EXAM: XR CHEST, 1 VIEW CLINICAL INDICATION: fever TECHNIQUE: Frontal view of the chest. COMPARISON: To November 07, 2022, August 18, 2021. CTA August 16, 2022 showed dilatation and dissection of ascending aorta, 7 cm proximal aorta with intimal flap, extending adjacent to right coronary artery origin, also left coronary artery bypass graft arising from the true lumen FINDINGS: LUNGS AND PLEURAL SPACES: Similar appearance of diffusely increased pulmonary interstitial markings without definite focal infiltrate. Persistent blunting of the left lateral costophrenic angle, likely scarring. No pneumothorax. No effusion. HEART: Unremarkable. Cardiac silhouette not enlarged. MEDIASTINUM: Similar contours of the mediastinum with the exception of decreased bulging contour in the expected region of the ascending aorta, more concave right mediastinal margin projecting over the hilum. Similar mildly tortuous appearance of the margin of the descending thoracic aorta. BONES/JOINTS: The sixth previously seen external stabilization plates have been removed and there are more sternal wires, intact. No acute fracture. SOFT TISSUES: Unremarkable. RAD/Chest 1 View (Portable) IMPRESSION: 1. Largely chronic-appearing lung changes. Difficult to exclude slight superimposed groundglass opacities but they are not convincing. 2. Normal-appearing right cardiomediastinal contour compared to August 08, 2022. There was previously bulging contour from the dilated and dissected ascending aorta seen on CTA the August 16, 2022. There has been interval repeat median sternotomy. Electronically Signed: Di Bateman MD at 23:18 EST ,
[2023-11-08 22:32] LABS: Lactic Acid 1.4 mmol/L (0.4-1.9)
[2023-11-08 23:05] VITALS: TEMP 39.3
[2023-11-08 23:06] LABS: Bacteria 0 SEEN /hpf (None Seen); Mucous, Urine 0 SEEN /hpf (<or=2+); Squamous Epithelial Cells - UA 0 SEEN /hpf (0-5); White Blood Cells 0 SEEN /hpf (0-5)
[2023-11-08 23:08] LABS: Color, Urine Yellow (Yellow); Glucose, Dipstick Normal (Normal); Ketone-Dipstick Negative (Negative); Leukocyte Esterase-Dipstick Negative /ul (Negative); Nitrite-Dipstick Negative (Negative); Occult Blood-Urine 50 /ul (Negative); Protein-Dipstick Negative (Negative); Specific Gravity, Urine 1.015 (1.002-1.030); Urine Bilirubin Dipstick Negative (Negative); Urine Clarity Clear (Clear); Urine Urobilinogen Normal (Normal)
[2023-11-08] MEDS: Acetaminophen 500 MG Tablet 1000 MG PO (23:14)
[2023-11-08 23:16] LABS: Red Blood Cells-Urine 0-5 SEEN /hpf (0-5)
[2023-11-08 23:42] VITALS: TEMP 38.1
== END 2023-11-08 23:43 | disposition home or self-care (01) ==
PROVIDERS: Emergency Provider Emergency Medicine; PCP Family Medicine; Visit Provider Emergency Medicine
DX: U07.1 COVID-19 (principal); F17.210 Nicotine dependence, cigarettes, uncomplicated; I25.10 Atherosclerotic heart disease of native coronary artery without angina pectoris; Z95.1 Presence of aortocoronary bypass graft
CPT/HCPCS: 71045; 80048; 80076; 81001; 83605; 85025; 87040; 87086; 87428; 99283; A4216

== ENCOUNTER → 2023-12-09 | Outpatient (CLI) | payer MEDICARE, SELFPAY ==
--- OUTSIDE RECORDS SUMMARY | 2023-12-09 08:57 | XMS RPT_ITS | CCD ---
Author Name Unknown Address [address] [place] [address] Organization [facility] Care Team Providers Care Radiator Specialist Name Role Phone Brandon Clifford MD Unavailable Gianfranco Wells Unavailable Gianfranco Sibley MD Primary Care Provider [phone] John CAFE SERVER.Michelle MCCLELLAN Unavailable Miah Farfan MD Unavailable Tiara Cho RN Unavailable Gianfranco Wells Unavailable Gianfranco Sibley MD Primary Care Provider John CAFE SERVER.Michelle MCCLELLAN Unavailable Miah Farfan MD Unavailable Tiara Cho RN Unavailable Gianfranco Sibley MD Primary Care Provider Tiara Cho RN Unavailable GIANFRANCO SIBLEY Primary Care Unavailable LYNNE PERDUE Attending Unavailable ALESHA ISAAC Referring Unavailable GIANFRANCO SIBLEY Primary Care Unavailable Allergies Allergy Classification Reported Allergen(s) Allergy Type Date of Onset Reaction(s) Facility (1 source) Penicillin Drug Allergy 11-27-2018 swelling [facility] Work Phone: (9 sources) Penicillins; Translations: [PENICILLINS] Drug Allergy 12-26-2010 Swelling [facility] Medications Current Medications Medication Drug Class(es) Dates Sig (Normalized) Sig (Original) oxyCODONE hydrochloride 5 mg oral tablet (4 sources) Opioid Agonist Start: 08-23-2022 End: 08-31-2022 take 1 tablet by mouth every six hours as needed oxyCODONE IR (ROXICODONE) 5 mg immediate release tablet Indications: Postoperative pain Take 1 tablet by ORAL/FEEDING TUBE route every 6 hours as needed for up to 7 days. 28 tablet 0 08/23/2022 08/31/2022 Active Completed/Discontinued Medications Medication Drug Class(es) Dates Sig (Normalized) Sig (Original) acetaminophen 500 mg oral tablet (8 sources) Start: 08-23-2022 take 2 tablets by mouth every six hours as needed acetaminophen (TYLENOL) 500 mg tablet Take 2 tablets by mouth every 6 hours as needed for pain. No more than 4000 mg total for a 24 hours window. Thanks. 0 08/23/2022 Active Problems Active Problems Problem Classification Problem Date Documented Da te Episodic/Chronic Aortic; peripheral; and visceral artery aneurysms (11 sources) Dissection of aorta; Translations: [Dissection of unspecified site of aorta] Onset: 08-16-2022 08-16-2022 Chronic Coronary atherosclerosis and other heart disease (16 sources) Coronary arteriosclerosis; Translations: [Atherosclerotic heart disease of standing [place] coronary artery without angina pectoris] Onset: 12-14-2013 08-16-2022 Chronic Diabetes mellitus with complications (8 sources) Type 2 diabetes mellitus with peripheral angiopathy; Translations: [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al angiopathy without gangrene] Onset: 08-18-2022 08-21-2022 Chronic Disorders of lipid metabolism (8 sources) Dyslipidemia; Translations: [Hyperlipidemia, unspecified] Onset: 07-25-2016 08-16-2022 Chronic Essential hypertension (10 sources) Essential hypertension; Translations: [Essential (primary) hypertension] Onset: 01-17-2017 08-16-2022 Chronic Osteoarthritis (1 source) Unilateral primary osteoarthritis, right knee; Translations: [Unilateral primary osteoarthritis, right knee] Onset: 11-27-2018 11-27-2018 Chronic Other aftercare (1 source) Surgical follow-up; Translations: [Encounter for follow-up examination after completed treatment for conditions other than malignant neoplasm] Episodic Other nutritional; endocrine; and metabolic disorders (8 sources) Obese class I; Translations: [Obesity, unspecified] Onset: 08-17-2022 08-17-2022 Chronic Residual codes; unclassified (7 sources) Obstructive sleep apnea syndrome; Translations: [Obstructive sleep apnea (adult) (pediatric)] Onset: 08-18-2022 08-21-2022 Chronic Substance-related disorders (8 sources) Nicotine dependence; Translations: [Nicotine dependence, unspecified, uncomplicated] Onset: 08-17-2022 08-17-2022 Chronic Unclassified (1 source) Dissection of ascending aorta (HCC); Translations: [Dissection of ascending aorta (HCC)] Onset: 08-22-2022 Past or Other Problems Problem Classification Problem Date Documented Date Episodic/Chronic Administrative/social admission (7 sources) Patient encounter status; Translations: [Persons encountering health services in other specified circumstances] Onset: 08-20-2022 08-21-2022 Episodic Other nervous system disorders (8 sources) Postoperative pain ; Translations: [Other acute postprocedural pain] Onset: 08-18-2022 08-21-2022 Episodic Residual codes; unclassified (8 sources) Tobacco user; Translations: [Tobacco use] Onset: 07-25-2016 08-16-2022 Episodic Unclassified (1 source) Problem Results Test Name Value Interpretation Reference Range Facil ity Vital Signs Date Time Vital Sign Value Performing Clinician Facility 08-30-2022 10:21-0400 Body height 180.3 cm Genna Eng APRN.POWER PLANT MANAGER Work Phone: [facility] 08-30-2022 10:21-0400 Body temperature 98.29 [degF] Genna Eng APRN.POWER PLANT MANAGER Work Phone: [facility] 08-30-2022 10:21-0400 Body weight 100.25 kg Genna Eng APRN.POWER PLANT MANAGER Work Phone: [facility] 08-30-2022 10:21-0400 Diastolic blood pressure 59 mm[Hg] Genna Eng APRN.POWER PLANT MANAGER Work Phone: [facility] 08-30-2022 10:21-0400 Heart rate 84 /min Genna Eng APRN.POWER PLANT MANAGER Work Phone: [facility] 08-30-2022 10:21-0400 Respiratory rate 12 /min Genna Eng APRN.POWER PLANT MANAGER Work Phone: [facility] 08-30-2022 10:21-0400 SaO2% (BldA) [Mass fraction] 96 % Genna Eng CAFE SERVER.POWER PLANT MANAGER Work Phone: [facility] 08-30-2022 10:21-0400 Systolic blood pressure 107 mm[Hg] Genna Eng KARMEN.POWER PLANT MANAGER Work Phone: [facility] 03-09-2020 10:20-0400 Body temperature 36.0 Deg [facility] Encounters Encounter Date Encounter Type Care Provider Facility Start: 10-29-2023 End: 10-29-2023 ambulatory GIANFRANCO SIBLEY Facility:[facility] Start: 10-29-2023 Encounter for other preprocedural examination GIANFRANCO SIBLEY [facility] Start: 09-20-2023 Patient encounter status Alesha Isaac MD Work Phone: [facility] Start: 09-20-2023 Telephone encounter Alesha graf MD Work Phone: Cardiothoracic Procedures Date Procedure Procedure Detail Performing Clinician Start: 10-29-2022 Ct angiography chest w/contrast/noncontrast Colton Walter CAFE SERVER.POWER PLANT MANAGER Work Phone: Start: 03-10-2020 History of coronary artery bypass grafting S/P CABG x 4 Adrianna Aida CAFE SERVER.POWER PLANT MANAGER Work Phone: Start: 02-16-2020 Antibody screen Plan of Treatment Date Care Activity Detail Author Start: 08-16-2027 LIPID SCREEN LIPID SCREEN [facility] Start: 08-17-2025 DIABETES SCREEN DIABETES SCREEN [facility] Start: 09-20-2023 End: 12-20-2023 CREATININE BLD CREATININE BLD Lab Routine Dissection of ascending aorta (HCC) Encounter for other preprocedural examination Expected: 09/20/2023, Expires: 12/20/2023 [facility] Work Phone: Immunizations Immunization Date Immunization Notes Care Provider Radha vieira 09-27-2022 influenza virus vaccine, unspecified formulation Alesha Isaac MD Work Phone: [facility] No information available. Carmel Mcdonnell AT [facility] Work Phone: Payers Date Payer Category Payer Medicare HUMANA MEDICARE HUMANA GOLD PLUS [id number] 2023-Present [phone] [address] [address] [place] [address] HMO [id number] 2023 Private Health Insurance [id number] 2016 Unknown [id number] Social History Date Type Detail Facility Start: 01-21-2020 End: 08-30-2022 Tobacco smoking status NHIS Ex-smoker [facility] Start: [birth year]-16-1964 End: 01-16-2020 History of tobacco use Current smoker [facility] Start: [birth year]-16-1964 End: 01-16-2020 History of tobacco use Cigarette Smoker [facility] Start: 01-21-2020 End: 12-14-2022 Cigarettes smoked current (pack per day) - Reported 1.5 [facility] Work Phone: Start: 01-21-2020 End: 08-30-2022 Tobacco use and exposure User of smokeless tobacco [facility] History of tobacco use Snuff User [facility] Start: 04-13-2020 End: 08-30-2022 Alcohol intake Current drinker of alcohol (finding) [facility] Start: 03-07-2020 History SDOH Alcohol Comment 1-2 daily [facility] Start: 03-09-2020 History SDOH Financial 5 [facility] Start: 03-09-2020 History SDOH Food Worry 1 [facility] Start: 03-09-2020 Education 12 [facility] Start: 1955 Sex Assigned At Not on file C [facility] Start: 08-06-2022 End: 08-30-2022 Exposure to SARS-CoV-2 (event) Not sure [facility] Start: 08-30-2022 End: 12-14-2022 Tobacco use panel [facility] Work Phone: How hard is it for you to pay for the very basics like food, housing, medical care, and heating Not hard at all [facility] Work Phone: (I/We) worried whether (my/our) food would run out before (I/we) got money to buy more. Never true [facility] Work Phone: NEGATED: Highlighted rowStart: 11-27-2018 End: 11-27-2018 Alcohol use Former smoker [facility] Work Phone: NEGATED: Highlighted rowStart: 11-27-2018 End: 11-27-2018 Assertion Current every day smoker [facility] Work Phone: NEGATED: Highlighted rowStart: 11-27-2018 End: 11-27-2018 Details of drug misuse behavior DRUG USE No [facility] Work Phone: NEGATED: Highlighted rowStart: 11-27-2018 End: 11-27-2018 Tobacco use and exposure SMOK ADVICE Yes [facility] Work Phone: Medical Equipment Procedure Code Equipment Code Equipment Origin al Text Equipment Identifier Dates Plate Sternalock Vivek Bone 8 Hole Sternum - [id number] Start: 03-08-2020 Screw Sternalock Vivek 2.4mm Gold 12mm Bone Self Drill Lock Primary Closure - [id number] Start: 03-08-2020 Check BS 3 times a day Start: 03-14-2020 End: 08-16-2022 Clinical Notes 12-14-2013 to 11-21-2023 Addendum Note - Wes Lei RN - 09/20/2023 10:49 AM EDTTelephone Encounter - Wes Lei RN - 09/20/2023 10:33 AM DELVISTTory Verduzco RN - 10/29/2022 8:30 AM EST Note Date & Type Note Facility 11-21-2023 Note Patient Outreach (PU LMMN) YARI LOPEZ ([id number]) 1955 M Date Time Provider Department 11/21/23 JANA EASON During your visit today, we recorded the following information about you: Jana Eason 11/21/2023 7:37 AM Signed Incidental Lung Nodule Enrollment Outreach attempt: 3rd Attempt Outreach status: Complete Enrolled in Lung Nodule program: No Declined reason: Other Lung Nodule Program Location: [place] Two letter attempts Discharge letter sent Allergies As of Date: 11/21/2023 Noted Allergy Reaction PENICILLINS 12/26/2010 7 - Swelling Date Reviewed: 10/29/2023 Reviewed by: Lina Hidalgo Ma - Fully Assessed Prescriptions as of 11/21/2023 - predniSONE (DELTASONE) 10 mg tablet Take 10 mg by mouth once daily. - methotrexate 2.5 mg tablet Take 2.5 mg by mouth every Saturday. 5 tablets 1x a week on Saturdays - folic acid 1 mg tablet Take 1 mg by mouth once daily. - vortioxetine (TRINTELLIX) 20 mg tablet Take 1 tablet by mouth once daily. - glimepiride (AMARYL) 1 mg tablet Take 0.5 tablets by mouth daily with breakfast. - losartan (COZAAR) 25 mg tablet Take a half tablet by mouth daily with lunch. - aluminum-magnesium hydroxide-simethicone (MAALOX,MYLANTA,MAG-AL PLUS) 200-200-20 mg/5 mL suspension Take 30 mL by mouth as needed (Second Line Therapy). - atorvastatin (LIPITOR) 40 mg tablet Take 1 tablet by mouth daily at bedtime. - guaiFENesin (MUCINEX) 600 mg 12 hr tablet Take 1 tablet by mouth every 12 hours as needed (cough). - lidocaine (SALONPAS) 4 % patch Apply 1 Patch as directed once daily. - magnesium hydroxide (MOM) 400 mg/5 mL suspension Take 30 mL by mouth once daily as needed. - metoprolol tartrate, short acting, (LOPRESSOR) 50 mg tablet Take 1 tablet by mouth twice daily. - acetaminophen (TYLENOL) 500 mg tablet Take 2 tablets by mouth every 6 hours as needed for pain. No more than 4000 mg total for a 24 hours window. Thanks. - pantoprazole DR (PROTONIX) 20 mg tablet Take 1 tablet by mouth DAILY (6 AM) for 7 days. - polyethylene glycol 3350 (MIRALAX, GLYCOLAX) 17 gram packet Take 1 Packet by mouth twice daily as needed for constipation. Dissolve dose in 4 - 8 ounces of liquid and take as directed. - metFORMIN ER (GLUCOPHAGE XR) 500 mg 24 hr tablet Take 1 tablet by mouth daily with breakfast. - aspirin, enteric coated (ECOTRIN LOW STRENGTH) 81 mg EC tablet Take 1 tablet by mouth once daily. - albuterol HFA (PROAIR HFA) 90 mcg/actuation inhaler 2 Puffs every 6 hours as needed. Take as directed - coenzyme Q10 (COENZYME Q-10) 100 mg cap capsule Take 100 mg by mouth once daily. - Cholecalciferol, Vitamin D3, 50 mcg (2,000 unit) cap Take 2,000 Units by mouth once daily. - buPROPion XL (WELLBUTRIN XL) 300 mg 24 hr tablet (Discontinued) Take 300 mg by mouth once daily. Problem List As Of Date 11/21/2023 Noted Resolved Coronary arteriosclerosis in [place] artery [I25*12/14/2013 Chest discomfort [R07.89] 12/14/2013 08/16/2022 Heart murmur, systolic [R01.1] 12/14/2013 08/16/2022 SOB (shortness of breath) on exertion [R06.02] 12/14/2013 08/16/2022 Fatigue [R53.83] 12/14/2013 08/16/2022 Hyperlipidemia LDL goal <70 [E78.5] 07/25/2016 Tobacco abuse [Z72.0] 07/25/2016 Essential hypertension [I10] 01/17/2017 S/P CABG x 4 [Z95.1] 03/10/2020 Aortic dissection (HCC) [I71.00] 08/16/2022 Nicotine use disorder, F17.2 [F17.200] 08/17/2022 Obesity, Class I, BMI 30-34.9 [E66.9] 08/17/2022 On mechanically assisted ventilation (HCC) [Z99*08/18/2022 08/18/2022 CAD (coronary artery disease) [I25.10] 08/18/2022 Postoperative pain [G89.18] 08/18/2022 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/18/2022 Coagulopathy (HCC) [D68.9] 08/18/2022 08/20/2022 MISTY (obstructive sleep apnea) [G47.33] 08/18/2022 Pulmonary edema, acute (HCC) [J81.0] 08/20/2022 08/21/2022 Encounter for support and coordination of trans*08/20/2022 Letter Text Encounter Status:Closed by JANA EASON on 11/21/23 [facility] 11-21-2023 Note HNO ID: [id number] Author: ?, ?, ? Service: ? Author Type: ? Type: Progress Notes Filed: 11/21/2023 07:37 Note Text: Incidental Lung Nodule Enrollment Outreach attempt: 3rd Attempt Outreach status: Complete Enrolled in Lung Nodule program: No Declined reason: Other Lung Nodule Program Location: [place] Two letter attempts Discharge letter sent [facility] 11-14-2023 Note Patient Outreach (PU LMMN) YARI LOPEZ ([id number]) 1955 M Date Time Provider Department 11/14/23 JANA EASON During your visit today, we recorded the following information about you: Jana Eason 11/14/2023 7:43 AM Signed Incidental Lung Nodule Enrollment Outreach attempt: 2nd Attempt Outreach status: Complete Enrolled in Lung Nodule program: Referred Lung Nodule outreach: Needs outreach Lung Nodule Program Location: [place] Two letter attempts Allergies As of Date: 11/14/2023 Noted Allergy Reaction PENICILLINS 12/26/2010 7 - Swelling Date Reviewed: 10/29/2023 Reviewed by: Lina Hidalgo Ma - Fully Assessed Prescriptions as of 11/14/2023 - predniSONE (DELTASONE) 10 mg tablet Take 10 mg by mouth once daily. - methotrexate 2.5 mg tablet Take 2.5 mg by mouth every Saturday. 5 tablets 1x a week on Saturdays - folic acid 1 mg tablet Take 1 mg by mouth once daily. - vortioxetine (TRINTELLIX) 20 mg tablet Take 1 tablet by mouth once daily. - glimepiride (AMARYL) 1 mg tablet Take 0.5 tablets by mouth daily with breakfast. - losartan (COZAAR) 25 mg tablet Take a half tablet by mouth daily with lunch. - aluminum-magnesium hydroxide-simethicone (MAALOX,MYLANTA,MAG-AL PLUS) 200-200-20 mg/5 mL suspension Take 30 mL by mouth as needed (Second Line Therapy). - atorvastatin (LIPITOR) 40 mg tablet Take 1 tablet by mouth daily at bedtime. - guaiFENesin (MUCINEX) 600 mg 12 hr tablet Take 1 tablet by mouth every 12 hours as needed (cough). - lidocaine (SALONPAS) 4 % patch Apply 1 Patch as directed once daily. - magnesium hydroxide (MOM) 400 mg/5 mL suspension Take 30 mL by mouth once daily as needed. - metoprolol tartrate, short acting, (LOPRESSOR) 50 mg tablet Take 1 tablet by mouth twice daily. - acetaminophen (TYLENOL) 500 mg tablet Take 2 tablets by mouth every 6 hours as needed for pain. No more than 4000 mg total for a 24 hours window. Thanks. - pantoprazole DR (PROTONIX) 20 mg tablet Take 1 tablet by mouth DAILY (6 AM) for 7 days. - polyethylene glycol 3350 (MIRALAX, GLYCOLAX) 17 gram packet Take 1 Packet by mouth twice daily as needed for constipation. Dissolve dose in 4 - 8 ounces of liquid and take as directed. - metFORMIN ER (GLUCOPHAGE XR) 500 mg 24 hr tablet Take 1 tablet by mouth daily with breakfast. - aspirin, enteric coated (ECOTRIN LOW STRENGTH) 81 mg EC tablet Take 1 tablet by mouth once daily. - albuterol HFA (PROAIR HFA) 90 mcg/actuation inhaler 2 Puffs every 6 hours as needed. Take as directed - coenzyme Q10 (COENZYME Q-10) 100 mg cap capsule Take 100 mg by mouth once daily. - Cholecalciferol, Vitamin D3, 50 mcg (2,000 unit) cap Take 2,000 Units by mouth once daily. - buPROPion XL (WELLBUTRIN XL) 300 mg 24 hr tablet (Discontinued) Take 300 mg by mouth once daily. Facility-Administered Medications as of 11/14/2023 - perflutren lipid microspheres 1.3 mL in NaCl (PF) 0.9% 10 mL injection (DEFINITY) - sodium chloride 0.9 % (flush) 10 mL (BD POSIFLUSH) Problem List As Of Date 11/14/2023 Noted Resolved Coronary arteriosclerosis in [place] artery [I25*12/14/2013 Chest discomfort [R07.89] 12/14/2013 08/16/2022 Heart murmur, systolic [R01.1] 12/14/2013 08/16/2022 SOB (shortness of breath) on exertion [R06.02] 12/14/2013 08/16/2022 Fatigue [R53.83] 12/14/2013 08/16/2022 Hyperlipidemia LDL goal <70 [E78.5] 07/25/2016 Tobacco abuse [Z72.0] 07/25/2016 Essential hypertension [I10] 01/17/2017 S/P CABG x 4 [Z95.1] 03/10/2020 Aortic dissection (HCC) [I71.00] 08/16/2022 Nicotine use disorder, F17.2 [F17.200] 08/17/2022 Obesity, Class I, BMI 30-34.9 [E66.9] 08/17/2022 On mechanically assisted ventilation (HCC) [Z99*08/18/2022 08/18/2022 CAD (coronary artery disease) [I25.10] 08/18/2022 Postoperative pain [G89.18] 08/18/2022 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/18/2022 Coagulopathy (HCC) [D68.9] 08/18/2022 08/20/2022 MISTY (obstructive sleep apnea) [G47.33] 08/18/2022 Pulmonary edema, acute (HCC) [J81.0] 08/20/2022 08/21/2022 Encounter for support and coordination of trans*08/20/2022 Letter Text Letter Text Encounter Status:Closed by JANA EASON on 11/14/23 [facility] 11-14-2023 Note HNO ID: [id number] Author: Jana Eason Service: ? Author Type: ? Type: Progress Notes Filed: 11/14/2023 7:43 AM Note Text: Incidental Lung Nodule Enrollment Outreach attempt: 2nd Attempt Outreach status: Complete Enrolled in Lung Nodule program: Referred Lung Nodule outreach: Needs outreach Lung Nodule Program Location: [place] Two letter attempts [facility] 11-07-2023 Note Patient Outreach (PU FAMO) YARI LOPEZ ([id number]) 1955 M Date Time Provider Department 11/07/23 DELFINO SANCHEZ [facility] During your visit today, we recorded the following information about you: Delfino Sanchez, CAFE SERVER.[facility] 11/07/2023 9:37 AM Signed Incidental Lung Nodule Enrollment Outreach attempt: 1st Attempt Outreach status: Complete Enrolled in Lung Nodule program: Referred Lung Nodule outreach: Needs outreach Lung Nodule Program Location: [place] Letter sent Allergies As of Date: 11/07/2023 Noted Allergy Reaction PENICILLINS 12/26/2010 7 - Swelling Date Reviewed: 10/29/2023 Reviewed by: Lina Hidalgo Ma - Fully Assessed Primary Visit Diagnosis:Lung nodules [R91.8] Prescriptions as of 11/07/2023 - predniSONE (DELTASONE) 10 mg tablet Take 10 mg by mouth once daily. - methotrexate 2.5 mg tablet Take 2.5 mg by mouth every Saturday. 5 tablets 1x a week on Saturdays - folic acid 1 mg tablet Take 1 mg by mouth once daily. - vortioxetine (TRINTELLIX) 20 mg tablet Take 1 tablet by mouth once daily. - glimepiride (AMARYL) 1 mg tablet Take 0.5 tablets by mouth daily with breakfast. - losartan (COZAAR) 25 mg tablet Take a half tablet by mouth daily with lunch. - aluminum-magnesium hydroxide-simethicone (MAALOX,MYLANTA,MAG-AL PLUS) 200-200-20 mg/5 mL suspension Take 30 mL by mouth as needed (Second Line Therapy). - atorvastatin (LIPITOR) 40 mg tablet Take 1 tablet by mouth daily at bedtime. - guaiFENesin (MUCINEX) 600 mg 12 hr tablet Take 1 tablet by mouth every 12 hours as needed (cough). - lidocaine (SALONPAS) 4 % patch Apply 1 Patch as directed once daily. - magnesium hydroxide (MOM) 400 mg/5 mL suspension Take 30 mL by mouth once daily as needed. - metoprolol tartrate, short acting, (LOPRESSOR) 50 mg tablet Take 1 tablet by mouth twice daily. - acetaminophen (TYLENOL) 500 mg tablet Take 2 tablets by mouth every 6 hours as needed for pain. No more than 4000 mg total for a 24 hours window. Thanks. - pantoprazole DR (PROTONIX) 20 mg tablet Take 1 tablet by mouth DAILY (6 AM) for 7 days. - polyethylene glycol 3350 (MIRALAX, GLYCOLAX) 17 gram packet Take 1 Packet by mouth twice daily as needed for constipation. Dissolve dose in 4 - 8 ounces of liquid and take as directed. - metFORMIN ER (GLUCOPHAGE XR) 500 mg 24 hr tablet Take 1 tablet by mouth daily with breakfast. - aspirin, enteric coated (ECOTRIN LOW STRENGTH) 81 mg EC tablet Take 1 tablet by mouth once daily. - albuterol HFA (PROAIR HFA) 90 mcg/actuation inhaler 2 Puffs every 6 hours as needed. Take as directed - coenzyme Q10 (COENZYME Q-10) 100 mg cap capsule Take 100 mg by mouth once daily. - Cholecalciferol, Vitamin D3, 50 mcg (2,000 unit) cap Take 2,000 Units by mouth once daily. - buPROPion XL (WELLBUTRIN XL) 300 mg 24 hr tablet (Discontinued) Take 300 mg by mouth once daily. Facility-Administered Medications as of 11/07/2023 - perflutren lipid microspheres 1.3 mL in NaCl (PF) 0.9% 10 mL injection (DEFINITY) - sodium chloride 0.9 % (flush) 10 mL (BD POSIFLUSH) Problem List As Of Date 11/07/2023 Noted Resolved Coronary arteriosclerosis in [place] artery [I25*12/14/2013 Chest discomfort [R07.89] 12/14/2013 08/16/2022 Heart murmur, systolic [R01.1] 12/14/2013 08/16/2022 SOB (shortness of breath) on exertion [R06.02] 12/14/2013 08/16/2022 Fatigue [R53.83] 12/14/2013 08/16/2022 Hyperlipidemia LDL goal <70 [E78.5] 07/25/2016 Tobacco abuse [Z72.0] 07/25/2016 Essential hypertension [I10] 01/17/2017 S/P CABG x 4 [Z95.1] 03/10/2020 Aortic dissection (HCC) [I71.00] 08/16/2022 Nicotine use disorder, F17.2 [F17.200] 08/17/2022 Obesity, Class I, BMI 30-34.9 [E66.9] 08/17/2022 On mechanically assisted ventilation (HCC) [Z99*08/18/2022 08/18/2022 CAD (coronary artery disease) [I25.10] 08/18/2022 Postoperative pain [G89.18] 08/18/2022 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/18/2022 Coagulopathy (HCC) [D68.9] 08/18/2022 08/20/2022 MISTY (obstructive sleep apnea) [G47.33] 08/18/2022 Pulmonary edema, acute (HCC) [J81.0] 08/20/2022 08/21/2022 Encounter for support and coordination of trans*08/20/2022 Letter Text Letter Text Encounter Status:Closed by DELFINO SANCHEZ on 11/07/23 [facility] 11-07-2023 Note HNO ID: [id number] Author: Delfino Sanchez APRN.POWER PLANT MANAGER Service: ? Author Type: Nurse Practitioner Type: Progress Notes Filed: 11/07/2023 9:37 AM Note Text: Incidental Lung Nodule Enrollment Outreach attempt: 1st Attempt Outreach status: Complete Enrolled in Lung Nodule program: Referred Lung Nodule outreach: Needs outreach Lung Nodule Program Location: [facility] 10-29-2023 Note HNO ID: [id number] Author: Sigmund, Lynne, CAFE SERVER.TALENT ADVISOR Service: ? Author Type: Clinical Nurse Specialist Type: Progress Notes Filed: 11/08/2023 10:10 AM Note Text: FOLLOW-UP Aortic Aneurysm, Aortic Dissection, and Aortic Repair Patient Type: Established REFERRED BY: Alesha Isaac M.D. PCP: Gianfranco Sibley [address] [place] [address] Other Physician: No referring provider defined for this encounter. Patient Mr. Lopez returns, now 12 months following the open repair of his arch and ascending Aortic Dissection. The patient is asymptomatic. 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 The CT scan was reviewed and reveals a maximum aortic diameter of 48 mm in the area of Aortic root. Stable aortic repair with no residual aortic dissection and normal caliber aorta beyond the graft. The Echocardiogram from 08/16/22 reveals normal ventricular function and well functioning valves. Last CT Result Conclusion CTA CHEST/ABD/PEL (GATED) W IVCON Exam End: 10/29/2023 8:39 AM (Final result) Impression: IMPRESSION: 1. The patient has undergone prior supracoronary ascending aorta graft and multivessel CABG. There are no findings to suggest anastomotic stenosis, infection, or leak. 2. 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 Rest of the standing rock thoracoabdominal aorta is normal in calibre with no acute aortic pathology. 3. A 20 mm focal cluster of pulmonary nodular opacities is seen in the right upper lobe. Incidental Finding: Follow-up Acuity: Incidental Finding: Part solid: 6 mm or greater Routing Code: RI_1 Recommendation: Consult to [facility] - [id number] Time Frame: at the discretion of the clinical team. Comments: Follow-up for this incidentally detected lung nodule with Chest CT exam in 3-6 months is recommended. For nodules with suspicious morphology, growing solid component, or solid component >6 mm, PET/CT, Biopsy, or resection should be considered. If the nodule is stable on follow-up imaging, with a solid component <6mm, annual Chest CT exams for 5 additional years is recommended. --END OF FINDING-- COMMUNICATION:? Results will be communicated with the ordering provider via [facility] staff message by [facility] within 2 business days of report finalization. Converting Technician: [email or web address] Transcribe Date/Time: Oct 29 2023 10:26A Dictated by : KRISTEN STINSON MD This examination was interpreted and the report reviewed and electronically signed by: KRISTEN STINSON MD on Oct 30 2023 11:30AM EST Impression: The patient is doing well, after the last visit. (I71.010) Dissection of ascending aorta (HCC) (primary encounter diagnosis) Comment: (Z98.890, Z86.79) S/P ascending aortic aneurysm repair Plan: Follow Up CTA (R91.1) Lung nodule Comment: RUL, 20 mm Plan: Patient notified and will await instructions from [facility]. He will call me back if he does not hear from them in the next week. Plan: He will return to see me in 12 months The following studies will be necessary: - CTA Chest (Gated) with contrast. Lynne Perdue APRN.[facility] 10-29-2023 Note HNO ID: [id number] Author: Liliana Huertas RN Service: ? Author Type: Registered Nurse Type: Progress Notes Filed: 10/29/2023 8:39 AM Note Text: Radiology Service Progress Note DATE OF SERVICE: October 29, 2023 TIME: 8:13 AM PATIENT WEIGHT: 221LBS PATIENT IDENTITY VERIFICATION COMPLETED USING TWO (2) STANDARD IDENTIFIERS: Name and Date of confirmed by patient verbally and Name and Date of confirmed by identification band. FALL SCREENING: Has the patient had 2 falls in the last year or 1 fall with injury or currently using an Ambulatory Assistive Device (Walker, Cane, Wheelchair, Crutches, etc.)? No PATIENT GENDER DATA: Male ALLERGIES: Reviewed and unchanged CONTRAST ALLERGY: No EXAM: CT -CONTRAST INDUCED NEPHROPATHY RISK FACTORS: Patient age > 60 years and Diabetic: Yes. Current medication(s): Metformin. Patient currently has insulin pump?: No. CREATININE: Creatinine Date Value Ref Range Status 08/30/2022 0.90 0.73 - 1.22 mg/dL Final 08/23/2022 0.89 0.73 - 1.22 mg/dL Final 08/22/2022 0.80 0.73 - 1.22 mg/dL Final Estimated Glomerular Filtration Rate Date Value Ref Range Status 08/30/2022 94 >=60 mL/min/1.73m? Final Comment: Estimated Glomerular Filtration Rate (eGFR) is calculated using the 2020 CKD-EPI creatinine equation. This equation utilizes serum creatinine, sex, and age as parameters. The creatinine assay has traceable calibration to isotope dilution-mass spectrometry. Refer to KDIGO guidelines for clinical interpretation. In patients with unstable renal function, e.g. those with acute kidney injury, the eGFR may not accurately reflect actual GFR. eGFR- Date Value Ref Range Status 02/11/2020 >60 Final P.O.C.T. RESULTS: POC done: Yes, See Lab Tab October 29, 2023. Creatinine 1.0, GFR 83 TREATMENT: No Hydration needed. IV SITE: Ambulatory: A peripheral IV was started in the Right antecubital site with a Angio cath: 20 gauge. and A Saline lock was inserted per protocol IV SITE APPEARANCE: Clean,Dry and Intact SIGNATURE: Liliana Huertas RN PATIENT NAME: Yari Lopez DATE: October 29, 2023 TIME: 8:13 AM [facility] 10-29-2023 Note HNO ID: [id number] Author: Angelita Tinajero RT(R) Service: Radiology Author Type: Technologist Type: Progress Notes Filed: 10/29/2023 8:38 AM Note Text: Radiology Service Progress Note PATIENT NAME: Yari Lopez DATE OF SERVICE: October 29, 2023 TIME: 8:38 AM PATIENT IDENTITY VERIFICATION COMPLETED USING TWO (2) IDENTIFIERS: Name and Date of confirmed by patient verbally and Name and Date of confirmed by identification band. FALL SCREENING: Has the patient had 2 falls in the last year or 1 fall with injury or currently using an Ambulatory Assistive Device (Walker, Cane, Wheelchair, Crutches, etc.)? No PATIENT GENDER DATA: Male PATIENT RELEVANT IMPLANT DATA REVIEWED: Yes RADIOLOGY DEPARTMENT: CT; Exam(s) Completed: Cardiac PERIPHERAL IV DATA: Site assessment: Clean,Dry and Intact, Site disposition Discontinued SIGNED BY: RT Anthony(R) October 29, 2023 8:38 AM [facility] 09-20-2023 Miscellaneous Notes Addended by: WES LEI on: 09/20/2023 10:49 AM Modules accepted: Orders Called patient to inform him that Dr. Isaac is recommending he come in for a CTA (chest/abdomen/pelvis) and follow up appointment with Lynne QUIGLEY. left detailed message with the plan and to call back with any further questions. Orders placed and sent to - to be scheduled. Wes Lei RN documented in this encounter [facility] 10-29-2022 History of Presen t illness Narrative Radiology Service Progress Note DATE OF SERVICE: October 29, 2022 TIME: 8:49 AM PATIENT WEIGHT: 216 LBS PATIENT IDENTITY VERIFICATION COMPLETED USING TWO (2) STANDARD IDENTIFIERS: Name and Date of confirmed by patient verbally. FALL SCREENING: Has the patient had 2 falls in the last year or 1 fall with injury or currently using an Ambulatory Assistive Device (Walker, Cane, Wheelchair, Crutches, etc.)? No PATIENT GENDER DATA: Male ALLERGIES: Reviewed and unchanged CONTRAST ALLERGY: No EXAM: CT -CONTRAST INDUCED NEPHROPATHY RISK FACTORS: Patient age > 60 years CREATININE: Creatinine Date Value Ref Range Status 08/30/2022 0.90 0.73 - 1.22 mg/dL Final 08/23/2022 0.89 0.73 - 1.22 mg/dL Final 08/22/2022 0.80 0.73 - 1.22 mg/dL Final Estimated Glomerular Filtration Rate Date Value Ref Range Status 08/30/2022 94 >=60 mL/min/1.73m Final Comment: Estimated Glomerular Filtration Rate (eGFR) is calculated using the 2020 CKD-EPI creatinine equation. This equation utilizes serum creatinine, sex, and age as parameters. The creatinine assay has traceable calibration to isotope dilution-mass spectrometry. Refer to KDIGO guidelines for clinical interpretation. In patients with unstable renal function, e.g. those with acute kidney injury, the eGFR may not accurately reflect actual GFR. eGFR- Date Value Ref Range Status 02/11/2020 >60 Final P.O.C.T. RESULTS: N/A October 29, 2022 TREATMENT: N/A IV SITE: Ambulatory: A peripheral IV was started in the Right antecubital site with a Angio cath: 20 gauge. IV SITE APPEARANCE: Clean,Dry and Intact SIGNATURE: Tory Verduzco RN PATIENT NAME: Yari Lopez DATE: October 29, 2022 TIME: 8:49 AM Radiology Service Progress Note PATIENT NAME: Yari Lopez DATE OF SERVICE: October 29, 2022 TIME: 9:08 AM PATIENT IDENTITY VERIFICATION COMPLETED USING TWO (2) IDENTIFIERS: Name and Date of confirmed by patient verbally and Name and Date of confirmed by identification band. FALL SCREENING: Has the patient had 2 falls in the last year or 1 fall with injury or currently using an Ambulatory Assistive Device (Walker, Cane, Wheelchair, Crutches, etc.)? No PATIENT GENDER DATA: Male PATIENT RELEVANT IMPLANT DATA REVIEWED: Yes RADIOLOGY DEPARTMENT: CT; Exam(s) Completed: Cardiac PERIPHERAL IV DATA: Site assessment: Clean,Dry and Intact, Site disposition Discontinued SIGNED BY: RT Ruiz(R) October 29, 2022 9:08 AM documented in this encounter [facility] 08-30-2022 History of Presen t illness Narrative Images from the original note were not included. [facility] Department of Cardiovascular Medicine DEPARTMENT OF CARDIAC SURGERY OUTPATIENT VISIT DATE August 30, 2022 OUTPATIENT VISIT TYPE POSTOPERATIVE Yari Lopez is a 67 year old male who presents who is here for post operative follow up HPI: S/P on 08/18/2022: Redo Median Sternotomy, Type A Aortic Dissection Repair (Ascending and Hemiarch Replacement #30 HEMASHIELD) with Reimplantation of Proximal RSVG to OM and RSVG to PDA of prior CABG Discharged on 08/23/2022 PAST MEDICAL HISTORY Diagnosis Date Coronary artery disease without angina pectoris Hernia 1971 Hypercholesteremia Hypertension IBS (irritable bowel syndrome) Osteoarthritis of right knee PAST SURGICAL HISTORY Procedure Laterality Date CABG (4) VEIN GRAFTS & ARTERIAL GRAFT(S) 03/08/2020 CARDIAC CATH 12/31/2019 @ [facility] by Dr. He CHEST TUBE - INSERT 1984 HAD PNEUMONIA FOOT SURGERY HX plantars wart outer edge of foot HERNIA REPAIR HX ALLERGIES Allergen Reactions Penicillins Swelling Current Outpatient Medications Medication Sig losartan (COZAAR) 25 mg tablet Take a half tablet by mouth daily with lunch. aluminum-magnesium hydroxide-simethicone (MAALOX,MYLANTA,MAG-AL PLUS) 200-200-20 mg/5 mL suspension Take 30 mL by mouth as needed (Second Line Therapy). atorvastatin (LIPITOR) 40 mg tablet Take 1 tablet by mouth daily at bedtime. lidocaine (SALONPAS) 4 % patch Apply 1 Patch as directed once daily. magnesium hydroxide (MOM) 400 mg/5 mL suspension Take 30 mL by mouth once daily as needed. metoprolol tartrate, short acting, (LOPRESSOR) 50 mg tablet Take 1 tablet by mouth twice daily. acetaminophen (TYLENOL) 500 mg tablet Take 2 tablets by mouth every 6 hours as needed for pain. No more than 4000 mg total for a 24 hours window. Thanks. polyethylene glycol 3350 (MIRALAX, GLYCOLAX) 17 gram packet Take 1 Packet by mouth twice daily as needed for constipation. Dissolve dose in 4 - 8 ounces of liquid and take as directed. metFORMIN ER (GLUCOPHAGE XR) 500 mg 24 hr tablet Take 1 tablet by mouth daily with breakfast. aspirin, enteric coated (ECOTRIN LOW STRENGTH) 81 mg EC tablet Take 1 tablet by mouth once daily. albuterol HFA (PROAIR HFA) 90 mcg/actuation inhaler 2 Puffs every 6 hours as needed. Take as directed coenzyme Q10 (COENZYME Q-10) 100 mg cap capsule Take 100 mg by mouth once daily. Cholecalciferol, Vitamin D3, 50 mcg (2,000 unit) cap Take 2,000 Units by mouth once daily. guaiFENesin (MUCINEX) 600 mg 12 hr tablet Take 1 tablet by mouth every 12 hours as needed (cough). (Patient not taking: Reported on 08/30/2022) oxyCODONE IR (ROXICODONE) 5 mg immediate release tablet Take 1 tablet by ORAL/FEEDING TUBE route every 6 hours as needed for up to [address] (PROTONIX) 20 mg tablet Take 1 tablet by mouth DAILY (6 AM) for 7 days. (Patient not taking: Reported on 08/30/2022) melatonin 1 mg tablet Take 3 tablets by mouth at bedtime as needed for for insomnia. (Patient not taking: Reported on 08/30/2022) glimepiride (AMARYL) 1 mg tablet Take 0.5 tablets by mouth daily with breakfast. Docusate Sodium 250 mg capsule Take 250 mg by mouth once daily. (Patient not taking: Reported on 08/30/2022) Current Facility-Administered Medications Medication Dose Route Frequency perflutren lipid microspheres 1.3 mL in NaCl (PF) 0.9% 10 mL injection (DEFINITY) INTRAVENOUS DIRECTED PRN sodium chloride 0.9 % (flush) 10 mL (BD POSIFLUSH) 10 mL INTRAVENOUS DIRECTED PRN Chief Complaints: Discharge Post Operative Course: Pain scale :No: 0 on a scale of 0 to 10 Appetite: appetite good Activity: Walking ad laurie around the house Elimination: normal, no constipation Sleep: no problems with sleep Mood: normal Incisions/Wounds: Not applicable Review of Systems: HEENT: No complaints offered and Negative for fevers since discharge Cardiac: Denies significant problems Respiratory: denies patient denies a history of any respiratory problems Musculoskeletal: No history of joint swelling, joint pain, or loss of range of motion. Neuro: Denies neurological complaints Physical Exam: BP 107/59 Pulse 84 Temp 36.8 C (98.3 F) (Oral) Resp 12 Ht 180.3 cm (5' 11 ) Wt 100.2 kg (221 lb) SpO2 96% BMI 30.82 kg/m Appearance: well developed, well nourished Neck: No neck vein distention Cardiac: regular S1, S2 Lungs: Clear breath sounds bilaterally without wheeze or dullness Abdomen: soft, non tender Extremities: No edema Sternum: stable Sternotomy site: healing Wound: NA SV [place] sites: healing Procedures: Sutures removed from chest tube sites without difficulty. IMPRESSION & PLAN: S/P on 08/18/2022: Redo Median Sternotomy, Type A Aortic Dissection Repair (Ascending and Hemiarch Replacement #30 HEMASHIELD) with Reimplantation of Proximal RSVG to OM and RSVG to PDA of prior CABG Discharged on 08/23/2022 ASA, BB, BP control, CTA Chest complete CTA chest 08/22/2022 1. The patient has undergone interval supra coronary ascending aorta graft and multivessel CABG. There are no findings to suggest anastomotic stenosis, infection, or leak. There are the typical postoperative changes present. Overall, the findings are appropriate for the recent postoperative state. 2. Residual ectasia of the aortic root. 3. Small right pneumothorax. Centrilobular emphysema. Chest XR 08/30/2022- in process, reviewed Resolving bilateral pleural effusions Coronary artery disease involving standing rock coronary artery of standing rock heart without angina pectoris (primary encounter diagnosis): ASA, BB, statin ECG 08/30/2022 NORMAL SINUS RHYTHM POSSIBLE LEFT ATRIAL ENLARGEMENT COMPLETE RIGHT BUNDLE BRANCH BLOCK ABNORMAL ECG 2. 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al angiopathy without gangrene, without long-term current use of insulin (HCC): restart metformin and amaryl at dc 3. Essential hypertension; controlled on BB and losartan 4. Postoperative pain; controlled on oxycodone and tylenol Summary: Post op care and discharge orders reviewed with the patient- all questions were answered. Surgical sites healing without complication Discussed new medications, dosage, route of administration and side effects Reviewed walking program at home Reviewed diet guidelines for recovery from surgery Return to the clinic prn with signs or symptoms of infection, fevers, SOB, or pleural effusion SBE prophylaxis reviewed Genna Eng APRN.CNP documented in this encounter [facility] 08-30-2022 History of Presen t illness Narrative Radiology Service Progress Note PATIENT NAME: Yari Lopez DATE OF SERVICE: August 30, 2022 TIME: 9:54 AM PATIENT IDENTITY VERIFICATION COMPLETED USING TWO (2) IDENTIFIERS: Name and Date of confirmed by patient verbally. FALL SCREENING: Has the patient had 2 falls in the last year or 1 fall with injury or currently using an Ambulatory Assistive Device (Walker, Cane, Wheelchair, Crutches, etc.)? No PATIENT GENDER DATA: Male PATIENT RELEVANT IMPLANT DATA REVIEWED: Not Applicable RADIOLOGY DEPARTMENT: General X-ray: Exam(s) Completed: Chest X-Ray PERIPHERAL IV DATA: Not applicable SIGNED BY: RT Alvaro(R) August 30, 2022 9:54 AM documented in this encounter [facility] 08-27-2022 Miscellaneous Notes [facility] Contact Center Inbound Phone Encounter DATE of SERVICE: 08/27/2022 TIME of SERVICE: 9:16 AM Status: [facility] Service/Provider: Cardiac Surgery Alesha Isaac M.D. Reason for call: Follow-up Appointment Contact information: [phone] Resolution: Reinforced education Comments: Patient calling the [facility] resource center to schedule/reschedule CTS appointment for 08/28. He needs to make his 3 month follow up apt with Dr. Isaac. He was reminded to follow up with his PCP 7-10 days post surgery and his Nov cardiology apt with Dr. Sullivan. Given number to CTS scheduling [phone] and directly connected. Liana Avila RN Date of Resolution: 08/27/2022 Time of Resolution 9:16 AM documented in this encounter [facility] 08-24-2022 Miscellaneous Notes 1. Have you noticed any increased shortness of breath since you left the hospital? (HVI Red Flag Question) No 2. Have you noticed any increased swelling in your feet, ankles or belly? (Heart Failure Red Flag Question) No 3. Have you gained more than 2 - 3 pounds since discharge? (HVI Red Flag Question) No 4. Have you noticed any changes to your incision or wound since you were discharged as we want to be aware of any signs of infection? (HVI Red Flag Question) No 5. Are you having any increased pain since discharge? If Yes: What type of pain and where? (HVI Red Flag Question) Yes, Dull Pain Patient reports increased pain to back. Patient encouraged to take narcotic pain medication as prescribed, as he is only taking tylenol since discharge. Advised if pain medication does not help to call surgeon's office. Patient verbalized understanding. 6. Have you had any unplanned trips to the Emergency Department or Hospital since you were discharged? If yes: Why? (Heart Failure Red Flag Question) No 7. Do you have any questions about how to take your medications? (Standard Question) No 8. Have you filled your prescriptions [if no-why? If related to cost - Do you need to be connected to someone who can help you with the cost?] Reminder: Please bring in your medications at your follow up appointment. (HVI Red Flag Question) Yes 9. Do you have a doctor s appointment scheduled or is someone working on getting you a follow-up appointment? (Standard Question) Yes documented in this encounter [facility] documented as of this encounter (statuses as of 08/21/2022) [facility] History of Past illness Narrative* Problem Noted Date Resolved Date Pulmonary edema, acute 08/20/2022 2 Overview: History: postoperative Assessment: stable on CXR, improving oxygenation Plan: continue diuresis On mechanically assisted ventilation 08/18/2022 08/18/2022 Overview: History: Postop Assessment: Grade IIA - Glidescope Plan: WTE once clinically indicated Coagulopathy 08/18/2022 08/20/2022 Overview: History: Postop Assessment: Received 2 Platelets intraop. No S/S of bleeding upon arrival Plan: Coags stable. Chest discomfort 12/14/2013 08/16/2022 Heart murmur, systolic 12/14/2013 2 SOB (shortness of breath) on exertion 12/14/2013 08/16/2022 Fatigue 12/14/2013 08/16/2022 documented as of this encounter (statuses as of 08/24/2022) [facility] History of Past illness Narrative* Problem Noted Date Resolved Date Pulmonary edema, acute 08/20/2022 Overview: History: postoperative Assessment: stable on CXR, improving oxygenation Plan: continue diuresis On mechanically assisted ventilation 08/18/2022 08/18/2022 Overview: History: Postop Assessment: Grade IIA - Glidescope Plan: WTE once clinically indicated Coagulopathy 08/18/2022 08/20/2022 Overview: History: Postop Assessment: Received 2 Platelets intraop. No S/S of bleeding upon arrival Plan: Coags stable. Chest discomfort 12/14/2013 08/16/2022 Heart murmur, systolic 12/14/2013 2 SOB (shortness of breath) on exertion 12/14/2013 08/16/2022 Fatigue 12/14/2013 08/16/2022 documented as of this encounter (statuses as of 08/27/2022) [facility] History of Past illness Narrative* Problem Noted Date Resolved Date Pulmonary edema, acute 08/20/2022 Overview: History: postoperative Assessment: stable on CXR, improving oxygenation Plan: continue diuresis On mechanically assisted ventilation 08/18/2022 08/18/2022 Overview: History: Postop Assessment: Grade IIA - Glidescope Plan: WTE once clinically indicated Coagulopathy 08/18/2022 08/20/2022 Overview: History: Postop Assessment: Received 2 Platelets intraop. No S/S of bleeding upon arrival Plan: Coags stable. Chest discomfort 12/14/2013 08/16/2022 Heart murmur, systolic 12/14/2013 2 SOB (shortness of breath) on exertion 12/14/2013 08/16/2022 Fatigue 12/14/2013 08/16/2022 documented as of this encounter (statuses as of 08/30/2022) [facility] History of Past illness Narrative* Problem Noted Date Resolved Date Pulmonary edema, acute 08/20/2022 Overview: History: postoperative Assessment: stable on CXR, improving oxygenation Plan: continue diuresis On mechanically assisted ventilation 08/18/2022 08/18/2022 Overview: History: Postop Assessment: Grade IIA - Glidescope Plan: WTE once clinically indicated Coagulopathy 08/18/2022 08/20/2022 Overview: History: Postop Assessment: Received 2 Platelets intraop. No S/S of bleeding upon arrival Plan: Coags stable. Chest discomfort 12/14/2013 08/16/2022 Heart murmur, systolic 12/14/2013 2 SOB (shortness of breath) on exertion 12/14/2013 08/16/2022 Fatigue 12/14/2013 08/16/2022 documented as of this encounter (statuses as of 08/31/2022) [facility] History of Past illness Narrative* Problem Noted Date Resolved Date Pulmonary edema, acute 08/20/2022 Overview: History: postoperative Assessment: stable on CXR, improving oxygenation Plan: continue diuresis On mechanically assisted ventilation 08/18/2022 08/18/2022 Overview: History: Postop Assessment: Grade IIA - Glidescope Plan: WTE once clinically indicated Coagulopathy 08/18/2022 08/20/2022 Overview: History: Postop Assessment: Received 2 Platelets intraop. No S/S of bleeding upon arrival Plan: Coags stable. Chest discomfort 12/14/2013 08/16/2022 Heart murmur, systolic 12/14/2013 2 SOB (shortness of breath) on exertion 12/14/2013 08/16/2022 Fatigue 12/14/2013 08/16/2022 documented as of this encounter (statuses as of 10/30/2022) [facility] History of Past illness Narrative* Problem Noted Date Diagnosed Date Resolved Date Pulmonary edema, acute 08/20/202208/21 Overview: History: postoperative Assessment: stable on CXR, improving oxygenation Plan: continue diuresis On mechanically assisted ventilation 08/18/2022 08/18/2022 Overview: History: Postop Assessment: Grade IIA - Glidescope Plan: WTE once clinically indicated Coagulopathy 08/18/2022 08/20/2022 Overview: History: Postop Assessment: Received 2 Platelets intraop. No S/S of bleeding upon arrival Plan: Coags stable. Chest discomfort 12/14/2013 08/16/2022 Heart murmur, systolic 12/14/201308/16 SOB (shortness of breath) on exertion 12/14/2013 08/16/2022 Fatigue 12/14/2013 08/16/2022 documented as of this encounter (statuses as of 09/20/2023) [facility] Procedure note* Adrianna Parra APRN.POWER [employer]ANT MANAGER - 08/16/2022 5:38 PM EDT Images from the original note were not included. Arterial Line PROCEDURE NOTE Patient: Yari Lopez Date: August 16, 2022 Procedure Time: 10:20 INFORMED CONSENT: Informed consent was not obtained due to clinical factors necessitating an emergent procedure. [employer] Sign in Communication: Emergent N/A. Time Out: The procedural team confirmed the Correct Patient, the Correct Procedure, the Correct Site and the Correct Position (if applicable) during the audible time out: Emergent N/A. Sign Out Communication: Emergent N/A. INDICATION FOR LINE PLACEMENT: Continuous blood pressure monitoring CONDITION OF LINE PLACEMENT: Sterile PRIMARY PROCEDURALIST: Adrianna Parra PROCEDURE NARRATIVE Site Marked: N/A Skin Preparation: Chlorhexidine Gluconate Barriers Used by Proceduralist and All Assisting Personnel: Yes Barriers Used: Mask, Sterile Drapes, and Sterile Gloves CATHETER PLACEMENT/PLACEMENT TECHNIQUE The right radial artery was cannulated with a 20 g arterial catheter. Number of attempts at insertion: 2 Bright red pulsatile blood exited catheter:No Appropriate wave form was noted: No Estimated Blood Loss: scant Procedure was performed while vehicle in motion: yes COMPLICATIONS: None. The patient tolerated the procedure well Successful Placement: No SIGNATURE: Adrianna Parra APRN.CNP PATIENT NAME: Yari Lopez DATE: 08/16/22 TIME: 10:20 [facility] History of Present illness Narrative* Adrianna Parar APRN.CNP - 08/16/2022 2:01 PM EDT Images from the original note were not included. Critical Care Transport Note Patient Name: Yari Lopez Service Date: 08/16/2022 Referring Facility: [facility] Accepting Facility: [facility] SUBJECTIVE/CHIEF COMPLAINT: I feel fine REASON FOR TRANSPORT: Higher level of cardiovascular care History of Present Illness: The following history is what was known to CCT team at time of given care and summarized through: referring nursing report Yari Lopez is a 67 year old male with a past medical history significant for CAD s/p CABG anddiabetes who presented to [facility] on 08/16/2022 for evaluation and a CT scan. Per report, the patient was at an outpatient cardiology appointment and was getting an ultrasound. The physician was concerned for aortic dissection. He was transported to the emergency department where a CT scan was preformed and revealed a type A aortic dissection. The patient denies chest pain, back pain or SOB. At this time, the physician managing the [facility] at the referring facility. Patient condition attime of exam was: Acutely ill and critically ill. Due to the unique circumstances of the patient, it was determined that this was the closest, most appropriate facility by referring physician. The physician managing the patient requested the [facility] Team transport and treat the patient for the purpose of tertiary care, evaluation, and management of his cardiac condition(s). Air medical transport was requested to reduce the fhi-ly-azapmnsa time, 25 minutesby air vs. approximately 1 hour 13 minutes by ground, with the potential for increased ground transport time secondary to: distance between facilities and the patient's condition requiring an emergent procedure or evaluation not available at the referring facility ROS: A complete review of systems was completed and is negative except where noted. The patient denied a headache, dizziness, numbness, weakness, diplopia, blurry vision, neck pain or stiffness, chest/neck/jaw/shoulder/arm pain, back pain, shortness of breath, a cough, hemoptysis, abdominal pain, difficulty urinating, hematuria, diarrhea, bloody stool, leg/calf pain, trouble walking, recent trauma or surgery, or any other complaints when questioned. See [place] above. PAST MEDICAL HISTORY: PAST MEDICAL HISTORY Diagnosis Date Coronary artery disease without angina pectoris Hernia 1971 Hypercholesteremia Hypertension IBS (irritable bowel syndrome) Osteoarthritis of right knee PAST SURGICAL HISTORY: PAST SURGICAL HISTORY Procedure Laterality Date CABG (4) VEIN GRAFTS & ARTERIAL GRAFT(S) 03/08/2020 CARDIAC CATH 12/31/2019 @ [facility] by Dr. He CHEST TUBE - INSERT 1984 HAD PNEUMONIA FOOT SURGERY HX plantars wart outer edge of foot HERNIA REPAIR HX ALLERGIES: Penicillins SOCIAL HISTORY: Social History Tobacco Use Smoking status: Former Packs/day: 1.50 Types: Cigarettes Start date: 01/16/1965 Quit date: 01/16/2020 Years since quittin.5 Smokeless tobacco: Current Types: Snuff Vaping Use Vaping Use: Never used Substance Use Topics Alcohol use: Yes Comment: 1-2 daily Drug use: Not Currently FAMILY HISTORY: Not reported at time of transport HOME MEDICATIONS: - 81 mg aspirin - No other medications reported at time of transport Medications Administered by Referring Facility: No medications administered OBJECTIVE: Recent Labs, Diagnostics & Procedure Reports reviewed as available. Referring Facility Labs CBC: WBC 11.2k, Hgb 13.5, Hct 40.5, Plt 308K CHEMISTRY: Na 139, K 4.2, Cl 106, CO2 25, BUN 11, SCr 0.96, Glu 105 Coags: INR 1.1, PT 13.8 Diagnostics & Procedure Reports CT Scan: Per radiology read, CTA today shows Type-A AD, begins above coronary ostia and ends distal ascending, flap appears slightly thicker, root 4.3 cm, mid ascending about 6 cm, no evidence of leakage rupture, Coronary calcification, CABG with ALYCE to LAD, SVG to RCA and SVG to LCX, SVGs from true lumen Procedure/Operative Report(s): None Invasive Lines/Devices/Tubes Placed by Referring Facility: PIV x 2 PHYSICAL EXAM: Upon CCT Arrival at Referring Facility Vital Signs: HR 68bpm, BP 149/79mmHg, RR 16, SpO2 95% Oxygen/Ventilator Settings: room air General appearance: Awake, conversant, acutely ill, in no apparent distress. Eyes: Pupils equal and reactive bilaterally. Anicteric sclera. EOMs intact. ENT: Mucous membranes moist. Oropharynx unremarkable. No drainage from ears or nose. Neck supple and trachea midline. Respiratory: CTA bilaterally. Without respiratory distress, wheezing, or rhonchi. Equal chest excursion. Cardiovascular: S1 S2 auscultated. No murmur, rub, or gallop appreciated. Peripheral pulses palpable and equal. Gastrointestinal: Abdomen soft, nondistended, nontender. Genitourinary: Deferred. Musculoskeletal: Appropriate muscle mass, without deformities. No clubbing or cyanosis. BLE non pitting edema Skin: Limited exam due to patient clinical condition. Warm, pale, dry. CR < 3 seconds. Psychiatric: Calm, cooperative, appropriate affect. Heme/Lymph: No abnormal bleeding, ecchymosis, inflammation, or swelling. Neurologic: GCS = 15 (E4, V5, M6). Without focal deficits. CRITICAL CARE COURSE Upon bedside arrival at referring facility the patient was assessed and detailed physical exam performed. Initial exam findings as described above. The patient was placed on the transport monitor andall transport equipment transitioned in standard fashion. The patient was transferred to the transport cot and transported to the Aircraft and loaded without incident. The patient was medically managed, monitored, and reassessed during transport. Medications Managed & Administered by CCT: - 5 mg metoprolol IVP - Titration of Nitroprusside Procedures Performed by CCT: unsuccessful arterial line ASSESSMENT/PLAN: Yari Lopez is a 67 year old male with a past medical history significant forCAD s/p CABG and diabetes who presented to [facility] on 08/16/2022 for evaluation and a CT scan Type A Aortic Dissection: - CT read noted above - Denies chest pain, back pain or shortness of breath - Goal HR 60's - Metoprolol administered - Goal SBP 100-120 - Nitroprusside started and titrated - Monitor hemodynamics - Expedite transfer to [facility] The transport was completed without significant incident or change in the patient's status. The patient was transported to the [facility] by Rotor (Helicopter) for tertiary and/or quaternary evaluation and management of his Emergent Surgical condition(s). Upon arrival to the receiving facility, a nvhf-ek-gcbh report was given to bedside nursing staff [facility] and PNEUMATIC TESTER Patient care was transferred. The patient condition was Acutely Ill at the time of transfer. Vital Signs at time care transferred to the receiving facility unit: HR 66bpm, Rhythm sr, BP 118/72 mmHg, RR 14, SpO2 95% on room air SPECIAL EQUIPMENT: None MODE OF TRANSPORT: Rotor (Helicopter) CRITICAL CARE TIME: I personally performed 30 minutes of critical care time exclusive of separatelybillable procedures, ambulance charges and treating other patients. This was necessary to treat or prevent further deterioration of the following condition(s): Respiratory compromise and Hemodynamic compromise Cardiovascular impairment and Respiratory impairment which the patient had and/or had a high probability of suddenly developing. SIGNATURE: Adrianna Parra APRN.CNP Acute Care Nurse Practitioner [facility] documented in this encounterProvidence Hospital01-27-[facility] History of Past illness Narrative* Problem Noted Date Resolved Date Chest discomfort 12/14/2013 08/16/2022 Heart murmur, systolic 12/14/2013 2 SOB (shortness of breath) on exertion 12/14/2013 08/16/2022 Fatigue 12/14/2013 08/16/2022 documented as of this encounter (statuses as of 08/17/2022) [facility]* Diagnosis Dissection of aorta, unspecified portion of aorta (HCC)- Primary Essential hypertension Unspecified essential hypertension documented [facility] this encounter [facility]* Diagnosis Coronary artery disease involving standing rock coronary artery of standing rock heart without angina pectoris- Primary S/P CABG x 4 Postsurgical aortocoronary bypass status 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al angiopathy without gangrene, without long-term current use of insulin (HCC) Essential hypertension Unspecified essential hypertension Postoperative pain Other acute postoperative pain [facility]* Diagnosis Surgery follow-up Follow-up examination, following unspecified surgery [facility] encounter [facility]* Diagnosis Dissection of thoracic aorta Dissection of aorta, thoracic [facility]* Diagnosis Dissection of ascending aorta (HCC)- Primary Dissection of aorta, thoracic Encounter for other preprocedural examination [facility] this encounter [facility] (n[facility] Outpatient Procedure (Routine) - Pending Review Specialty Diagnoses / Procedures Referred By Contac t Referred To Contact [facility] Diagnoses Dissection of aorta, unspecified portion of aorta (HCC) Essential hypertension Procedures ECHO ECHO TTHRC R-T 2D W/WOM-MODE COMPL SPEC&COLR D Miguel Sullivan MD [address] [place] [address] [address] [address] [place] [address] Referral ID Status Reason Start Date Expiration Date Visits Requested Visits Authorized [id number] Pending Review Auto-Generat ed Referral 08/21/2022 08/21/2023 1 1 * Outpatient Procedure (Routine) - Pending Review Specialty Diagnoses / Procedures Referred By Contac t Referred To Contact [facility] Diagnoses Dissection of aorta, unspecified portion of aorta (HCC) Essential hypertension Procedures ECG COMPLETE ECG ROUTINE ECG W/LEAST 12 LDS W/I&R Miguel Sullivan MD [address] [place] [address] [address] [address] [place] [address] Referral ID Status Reason Start Date Expiration Date Visits Requested Visits Authorized [id number] Pending Review Auto-Generat ed Referral 08/21/2022 08/21/2023 1 1 [facility] Chief Complaint Chief Complaint Description Start Date right knee pain Preliminary chief co mplaint data, not yet signed by the author as of Instructions Instruction Description Start Date CompletedPlease follow-up wi th Primary Care Physician or Senior Mechanical Technician for treatment or adjustment of medication regarding elevated blood pressure.Patient advised to follow-up with Primary Care Physician for BMI management. Advance Directives No Advanced Directives Records FoundLatest Code Status on File Code Status Date Activated Date Inactivated Comments Full Code 03/15/2020 2:26 PM 08/16/2022 10:38 AM Latest Code Status on File Code Status Date Activated Date Inactivated Comments Full Code 08/17/2022 1:34 PM 08/18/2022 1:15 AM Full Code Order Discussed With: Patient Full Code 03/15/2020 2:26 PM 08/16/2022 10:38 AM Latest Code Status on File Code Status Date Activated Date Inactivated Comments Full Code 08/17/2022 1:34 PM 08/18/2022 1:15 AM Full Code 03/15/2020 2:26 PM 08/16/2022 10:38 AM Latest Code Status on File Code Status Date Activated Date Inactivated Comments Full Code 08/17/2022 1:34 PM 08/18/2022 1:15 AM Question Answer Comments Full Code Order Discussed With: Patient Code Status History Code Status Date Activated Date Inactivated Comments Full Code 03/15/2020 2:26 PM 08/16/2022 10:38 AM Assessments There may be information available, but it has not been provided by the sender. Review of System There may be information available, but it has not been provided by the sender. Family History There may be information available, but it has not been provided by the sender.No Family History Records FoundNo Family History Records FoundNo Family History Records FoundNo Family History Records FoundNo Family History Records Found History of Present Illness There may be information available, but it has not been provided by the sender. Summary Purpose Hospital Course Note HNO ID: [id number] Author: Marcelina enrique (Karmen Mcclellan) ELEUTERIO Lopez Service: Cardiovascular Surgery Author Type: Nurse Practitioner Type: Discharge Summary Filed: 03/14/2020 11:14 AM Note Text: Attestation signed by Miah Farfan at 03/14/2020 11:46 AM Attending Note I have personally performed a face to face assessment of the patient and have reviewed the PA/PARLIAMENTARY COUNSEL note. My linder findings include: Assessment/Plan are as above Other additions or changes: None Signature: Miah Farfan MD Date: 03/14/2020 Time: 11:46 AM DISCHARGE SUMMARY PATIENT NAME: Yari Lopez Code Status: Not on file Highest Readmission Risk Score: 20 The 30 day readmissions risk score is derived from an internally validated risk model which evaluates patient level characteristics, utilization history, medication orders and lab results up until the day of (more content not included)... Medications Administered Section Inactive Administered Medications - up to 3 most recent administrations Medication Order MAR Action Action Date Dose Rate Site metoprolol 5 mg injection (LOPRESSOR) 5 mg, INTRAVENOUS, ONCE, 1 dose, On Elizabeth 08/16/22 at 1430, Administer IV push over 2-5 minutes. Given 08/16/2022 10:11 AM EDT 5 mg IV sodium nitroprusside 50 mg in D5W 250 mL (NIPRIDE) 10-200 mcg/min (3-60 mL/hr), INTRAVENOUS, CONTINUOUS, Starting on Elizabeth 08/16/22 at 1430, Until Sat08/17/22 at 0851, Refrigerate - Protect From Light, Select One: Titrate, Choose target parameter: Systolic Blood Pressure (SBP), Titrate to a SBP (mmHg): Specify Range (mmHg), SBP lower limit (mmHg): 100, SBP upper limit (mmHg): 120, Starting Dose: 10-20 mcg/min or Continue at Current Infusion Rate, Titrate Amount/Interval: Titrate by 5-20 mcg/min every 5-10 minutes., Contact LIP: If dose adjusted by more than 120 mcg/min within 30 minutes., If this medication is paused for any duration of time and needs to be restarted: Restart at 10-20 mcg/min and titrate per order parameters. Rate/Dose Change 08/16/2022 10:22 AM EDT 40 mcg/min 12 mL/hr IV Health Concerns Infection Onset Date Last Indicated Resolved Time COVID-19 Rule-Out 08/16/2022 08/16/2022 08/16/2022 1:32 PM EDT Reason for Referral Specialty Diagnoses / Procedures Referred By [facility] Referred To Contact Genna Eng APRN.POWER PLANT MANAGER [address] [place] [address] Referral ID Status Reason Start Date Expiration Date Visits Re quested Visits Authorized [id number] Closed 1 1 Specialty Diagnoses / [facility] Diagnoses Dissection of thoracic aorta Procedures CTA CHEST (GATED) W IVCON CT ANGIOGRAPHY CHEST W/CONTRAST/NONCONTRAST Colton Walter, CAFE SERVER.POWER PLANT MANAGER [address] [place] [address] Ct Imaging Referral ID Status Reason Start Date Expiration Date V isits Requested Visits Authorized [id number] Closed Auto-Generate d Referral 10/17/2022 01/15/2023 1 1 Specialty Diagnoses / Procedures [facility] To [facility] Diagnoses Dissection of ascending aorta (HCC) Encounter for other preprocedural examination Procedures CTA CHEST/ABD/PEL (GATED) W IVCON CT ANGIOGRAPHY CHEST W/CONTRAST/NONCONTRAST CT ANGIO ABD&PLVIS CNTRST MTRL W/WO CNTRST Alesha Walton MD [address] [place] [address] [place] [id number] Referral ID Status Reason Start Date Expiration Date Visits Requested Visits Authorized [id number] Authorized Auto-Generat ed Referral 09/20/2023 10/19/2024 1 1 Additional Source Comments Reason for Visit (unrecogniz ed section and content) Reason Comments Critical Care Transport Reason Comments Follow Up Phone Call RC Follow Up Call Reason Comments Post Dc Program Call - Fyi Reason Comments Post Op Follow Up Reason Comments Radio Main J1 Reason Comments Radiology CT Specialty Diagnoses / Procedures Referred By Contac t Referred To Contact CT IMAGING Diagnoses Dissection of thoracic aorta Procedures CTA CHEST (GATED) W IVCON CT ANGIOGRAPHY CHEST W/CONTRAST/NONCONTRAST Colton Walter, CAFE SERVER.POWER PLANT MANAGER [address] [place] [address] Ct Imaging Referral ID Status Reason Start Date Expiration Date V isits Requested Visits Authorized [id number] Closed Auto-Generate d Referral 10/17/2022 01/15/2023 1 1 Reason Comments Follow Up (unrecognized sect ion and content) No Status Records FoundNo Status Records FoundNo Status Records FoundNo Status Records FoundNo Status Records Found INFORMATION SOURCE (unrecogn ized section and content) DATE CREATED AUTHOR AUTHOR'S ORGANIZ ATION 04/22/2020 [facility] DATE CREATED AUTHOR AUTHOR'S ORGANIZ ATION 11/18/2020 [facility] DATE CREATED AUTHOR AUTHOR'S ORGANIZ ATION 11/08/2023 [facility] DATE CREATED AUTHOR AUTHOR'S ORGANIZ ATION 11/22/2023 [facility] Source Comments (unrecognize d section and content) In the event this informatio n is protected by the Federal Confidentiality of Alcohol and Drug Abuse Patient Records regulations: The Federal rules restrict any use of the information to criminally investigate or prosecute any alcohol or drug abuse patient.[facility] HospitalIn the event this information is protected by the Federal Confidentiality of Alcohol and Drug Abuse Patient Records regulations: The Federal rules restrict any use of the information to criminally investigate or prosecute any alcohol or drug abuse patient.[facility] HospitalIn the event this information is protected by the Federal Confidentiality of Alcohol and Drug Abuse Patient Records regulations: The Federal rules restrict any use of the information to criminally investigate or prosecute any alcohol or drug abuse patient.[facility] HospitalIn the event this information is protected by the Federal Confidentiality of Alcohol and Drug Abuse Patient Records regulations: The Federal rules restrict any use of the information to criminally investigate or prosecute any alcohol or drug abuse patient.[facility] HospitalIn the event this information is protected by the Federal Confidentiality of Alcohol and Drug Abuse Patient Records regulations: The Federal rules restrict any use of the information to criminally investigate or prosecute any alcohol or drug abuse patient.[facility] HospitalIn the event this information is protected by the Federal Confidentiality of Alcohol and Drug Abuse Patient Records regulations: The Federal rules restrict any use of the information to criminally investigate or prosecute any alcohol or drug abuse patient.[facility] HospitalIn the event this information is protected by the Federal Confidentiality of Alcohol and Drug Abuse Patient Records regulations: The Federal rules restrict any use of the information to criminally investigate or prosecute any alcohol or drug abuse patient.[facility] HospitalIn the event this information is protected by the Federal Confidentiality of Alcohol and Drug Abuse Patient Records regulations: The Federal rules restrict any use of the information to criminally investigate or prosecute any alcohol or drug abuse patient.[facility] Care Teams (unrecognized sec tion and content) Radiator Specialist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 Start Date End Date Gianfranco Sibley MD [address] [facility] [address] [place], [place] [id number] PCP - General Family Medicine 02/03/20 Gianfranco Wells [address] [place] [address] Cardiology 01/06/20 Michelle Lopez APRN.POWER PLANT MANAGER 1 [facility] [address] [place], [place] [id number] Referring Cardiac Surg 03/14/20 Miah Farfan MD [address] [place] [address] [place] [address] Home Care Provider Cardiothoracic Surgery 03/14/20 Taira Cho RN [address] [place], [place] [phone] Loss Prevention Detective Post Acute Care 03/14/20 Radiator Specialist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 Start Date End Date Gianfranco Sibley MD [address] [facility] [address] [place] [address] PCP - General Family Medicine 02/03/20 Gianfranco Wells [address] [place] [address] Cardiology 01/06/20 Michelle Lopez, CAFE SERVER.POWER PLANT MANAGER [address] [facility] [address] [place] [address] Referring Cardiac Surg 03/14/20 Miah Farfan MD [address] [place] [address] [place] [address] Home Care Provider Cardiothoracic Surgery 03/14/20 Tiara Cho RN [address] [place], [place] [id number] Loss Prevention Detective Post Acute Care 03/14/20 Radiator Specialist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 Start Date End Date Gianfranco Sibley MD [address] [facility] [address] [place] [address] PCP - General Family Medicine 02/03/20 Gianfranco Wells [address] [place] [address] Cardiology 01/06/20 Michelle Lopez, CAFE SERVER.POWER PLANT MANAGER [address] [facility] [address] [place] [address] Referring Cardiac Surg 03/14/20 Miah Farfan MD [address] [place] [address] [place] [address] Home Care Provider Cardiothoracic Surgery 03/14/20 Tiara Cho RN [address] [place] [address] Loss Prevention Detective Post Acute Care 03/14/20 Radiator Specialist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 Start Date End Date Gianfranco Sibley MD [address] [facility] [address] [place] [address] PCP - General Family Medicine 02/03/20 Gianfranco Wells [address] [place] [address] Cardiology 01/06/20 Michelle Lopez, CAFE SERVER.POWER PLANT MANAGER [address] [facility] [address] [place] [address] Referring Cardiac Surg 03/14/20 Miah Farfan MD [address] [place] [address] [place] [address] Home Care Provider Cardiothoracic Surgery 03/14/20 Tiara Cho RN [address] [place], [place] [id number] Loss Prevention Detective Post Acute Care 03/14/20 Radiator Specialist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 Start Date End Date Gianfranco Sibley MD [address] [facility] [address] [place] [address] PCP - General Family Medicine 02/03/20 Gianfranco Wells [address] [facility] [address] [place] [address] Cardiology 01/06/20 Michelle Lopez, CAFE SERVER.POWER PLANT MANAGER [address] [facility] [address] [place] [address] Referring Cardiac Surg 03/14/20 Miah Farfan MD [address] [place] [address] [place], [place] [phone] Home Care Provider Cardiothoracic Surgery 03/14/20 Tiara Cho RN [address] [place] [address] Loss Prevention Detective Post Acute Care 03/14/20 Radiator Specialist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 Start Date End Date Gianfranco Sibley MD [address] [place], [place] [id number] PCP - General Family Medicine 02/03/20 Gianfranco Wells [address] [place] [id number] Cardiology 01/06/20 Michelle Lopez APRN.POWER PLANT MANAGER [address] [facility] [address] [place], [place] [phone] Referring Cardiac Surg 03/14/20 Miah Farfan MD [address] [address] [place], [place] [id number] Home Care Provider Cardiothoracic Surgery 03/14/20 Tiara Cho RN [address] [place] [address] [facility] 03/14/20 FOR RECORDS PERTAINING TO PATIENTS WHO ARE OR HAVE BEEN ENROLLED IN A CHEMICAL DEPENDENCY/SUBSTANCEABUSE PROGRAM, SOME INFORMATION MAY BE OMITTED. This clinical summary was aggregated from multiple sources. Caution should be exercised in using it in the provision of clinical care. This summary normalizes information from multiple sources, and as a consequence, information in this document may materially change the coding, format and clinical context of patient data. In addition, data may be omitted in some cases. CLINICAL DECISIONS SHOULD BE BASED ON THE PRIMARY CLINICAL RECORDS. [facility]. provides no warranty or guarantee of the accuracy or completeness of information in this document.
[2023-12-09 10:15] LABS: Absolute Neutrophil Count 6.2 X10^3/uL (2.0-7.7); Basophil% 1.1 % (0-1); Eosinophil# 0.55 X10^3/uL; Eosinophils% 5.9 % (0-5); Hematocrit 38.5 % (40-54); Hemoglobin 13.1 g/dL (13.0-16.5); Lymphocyte % 19.4 % (19-41); Mean Corpuscular Volume 94.1 fL (80-94); Mean Platelet Vol. 9.7 fl (6.2-12.0); Monocyte# 0.63 X10^3/uL; Monocyte% 6.8 % (0-10); NRBC Flagged by Analyzer 0 % (0-5); Neutrophil # 6.15 X10^3/uL (2.7-7.7); Neutrophil % 66.5 % (47-70); Platelet Count 286 K/mm3 (150-450); RBC Distribution Width CV 17.1 % (11.6-14.6); RBC Distribution Width SD 58.8 fl (35.1-43.9); Red Blood Count 4.09 M/mm3 (4.6-6.2); White Blood Count 9.3 K/mm3 (4.4-11.0)
[2023-12-09 10:27] LABS: ALB/GLOB Ratio 0.9 RATIO (0.9-2.4); AST(SGOT) 15 U/L (15-37); Alanine Aminotransfer ALT/SGPT 18 U/L (16-61); Albumin, Serum 3.7 g/dL (3.2-5.0); Alkaline Phosphatase 116 U/L (45-117); Anion Gap 4 (5-15); BUN 9 mg/dL (7-18); BUN/Creat Ratio 8.1 RATIO (10-20); Calcium,Total 9.7 mg/dL (8.5-10.1); Chloride 109 mmol/L (98-107); Creatinine, Serum 1.11 mg/dL (0.70-1.30); EST Glomerular Filtration Rate 70 mL/min (>60); Est Glom Filt Rate - Afr Amer 85 mL/min (>60); Glucose 93 mg/dL (74-106); Potassium 4.3 mmol/L (3.5-5.1); Protein, Total 7.7 g/dL (6.4-8.2); Sodium Level 140 mmol/L (136-145)
== END | disposition home or self-care (01) ==
PROVIDERS: PCP Family Medicine; Referring Provider Internal Medicine Rheumatology; Visit Provider Internal Medicine Rheumatology
DX: M05.79 Rheumatoid arthritis with rheumatoid factor of multiple sites without organ or systems involvement (principal); Z79.899 Other long term (current) drug therapy
CPT/HCPCS: 36415; 80053; 85025

== ENCOUNTER → 2024-01-15 | Outpatient (CLI) | payer MEDICARE, SELFPAY ==
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
== END | disposition home or self-care (01) ==
LOC: MTRAD 11:46
PROVIDERS: PCP Family Medicine; Referring Provider Family Medicine; Visit Provider Family Medicine
DX: M25.559 Pain in unspecified hip (principal)
CPT/HCPCS: 73521

== ENCOUNTER → 2024-01-30 | Outpatient (CLI) | payer MEDICARE, SELFPAY ==
[2024-01-30 15:34] LABS: Absolute Lymphocyte Count 3.19 X10^3/uL (0.83-4.51); Absolute Neutrophil Count 7.9 X10^3/uL (2.0-7.7); Basophil# 0.12 X10^3/uL; Eosinophil# 0.67 X10^3/uL; Eosinophils% 5.3 % (0-5); Hematocrit 40.4 % (40-54); Hemoglobin 13.8 g/dL (13.0-16.5); Lymphocyte # 3.19 X10^3/ul (0.83-4.51); Lymphocyte % 25.3 % (19-41); Mean Corp Hgb Conc 34.2 g/dL (32-36); Mean Corpuscular Hgb 32.9 pg (27.0-32.0); Mean Corpuscular Volume 96.4 fL (80-94); Monocyte# 0.74 X10^3/uL; Monocyte% 5.9 % (0-10); NRBC Flagged by Analyzer 0 % (0-5); Neutrophil # 7.85 X10^3/uL (2.7-7.7); Neutrophil % 62.1 % (47-70); Platelet Count 333 K/mm3 (150-450); RBC Distribution Width CV 15.7 % (11.6-14.6); Red Blood Count 4.19 M/mm3 (4.6-6.2); White Blood Count 12.6 K/mm3 (4.4-11.0)
[2024-01-30 16:30] LABS: ALB/GLOB Ratio 1.1 RATIO (0.9-2.4); AST(SGOT) 18 U/L (15-37); Alanine Aminotransfer ALT/SGPT 26 U/L (16-61); Albumin, Serum 3.9 g/dL (3.2-5.0); Alkaline Phosphatase 89 U/L (45-117); Anion Gap 7 (5-15); BUN 13 mg/dL (7-18); BUN/Creat Ratio 13.2 RATIO (10-20); Calcium,Total 9.5 mg/dL (8.5-10.1); Chloride 106 mmol/L (98-107); Creatinine, Serum 0.98 mg/dL (0.70-1.30); EST Glomerular Filtration Rate 81 mL/min (>60); Est Glom Filt Rate - Afr Amer 98 mL/min (>60); Globulin 3.5 g/dL (2.2-4.2); Glucose 111 mg/dL (74-106); Potassium 3.8 mmol/L (3.5-5.1); Protein, Total 7.4 g/dL (6.4-8.2); Sodium Level 141 mmol/L (136-145)
== END | disposition home or self-care (01) ==
LOC: MTLAB 13:39
PROVIDERS: PCP Family Medicine; Referring Provider Internal Medicine Rheumatology; Visit Provider Internal Medicine Rheumatology
DX: M05.79 Rheumatoid arthritis with rheumatoid factor of multiple sites without organ or systems involvement (principal); Z79.899 Other long term (current) drug therapy
CPT/HCPCS: 36415; 80053; 85025

== ENCOUNTER → 2024-01-31 | Outpatient (CLI) | payer MEDICARE, SELFPAY ==
[2024-01-31 12:56] LABS: AST(SGOT) 14 U/L (15-37); Alanine Aminotransfer ALT/SGPT 21 U/L (16-61); Albumin, Serum 3.9 g/dL (3.2-5.0); Alkaline Phosphatase 88 U/L (45-117); Bilirubin, Direct 0.14 mg/dL (0.00-0.30); Cholesterol 129 mg/dL (200); Globulin 3.2 g/dL (2.2-4.2); High Density Lipoprotein 45 mg/dL; Protein, Total 7.1 g/dL (6.4-8.2); Triglycerides 176 mg/dL; Very Low Density Lipoprotein 35 mg/dL (5-40)
== END | disposition home or self-care (01) ==
LOC: MTLAB 09:37
PROVIDERS: PCP Family Medicine; Referring Provider Nurse Practitioner Gerontology; Visit Provider Nurse Practitioner Gerontology
DX: E78.00 Pure hypercholesterolemia, unspecified (principal)
CPT/HCPCS: 36415; 80061; 80076

== ENCOUNTER → 2024-03-17 | Outpatient (CLI) | payer MEDICARE, SELFPAY ==
--- NOTE | 2024-03-17 10:42 | CDU_ITS ---
Reason For Study: TIA Rt. Velocities/BP Lt. Velocities/BP Prox CCA 86.3/15.4 cm/sec. Prox CCA 106.3/11.8 cm/sec. Mid CCA 119.5/26.2 cm/sec. Mid CCA 103.9/19.2 cm/sec. Dist CCA 98.6/24.9 cm/sec. Dist CCA 95.3/22.8 cm/sec. Prox ICA 111.3/25.3 cm/sec. Prox ICA 289.9/85.9 cm/sec. Mid ICA 95.3/29.0 cm/sec. Mid ICA 120.5/37.1 cm/sec. Dist ICA 86.7/31.4 cm/sec. Dist ICA 67.4/21.7 cm/sec. Rt. ICA/CCA = 95.3/119.5=0.80. Lt. ICA/CCA = 289.5/103.9=2.8. Prox ECA 63.4/9.3 cm/sec. Prox ECA 103.9/11.8 cm/sec. Rt. Vert. 29.1/12.0 cm/sec. Lt. Vert. 42.7/13.4 cm/sec. Right Extracranial There is homogeneous, smooth atherosclerotic plaque noted in the right common carotid artery. There is heterogeneous, irregular atherosclerotic plaque noted in the right internal carotid artery. There is heterogeneous, smooth atherosclerotic plaque noted in the right external carotid artery. Antegrade flow is noted in the right vertebral artery. Left Extracranial There is homogeneous, smooth atherosclerotic plaque noted in the left common carotid artery. There is heterogeneous, irregular atherosclerotic plaque noted in the left internal carotid artery. There is intimal thickening but no significant atherosclerotic plaque noted in the left external carotid artery. Antegrade flow is noted in the left vertebral artery. Procedure Carotid Duplex 31260. This is a Carotid Duplex examination using B-mode, color flow and specral Doppler. The study was technically difficult. Exam performed in department. VL/Carotid Duplex Ultrasound Interpretation Summary Mild (<50%) stenosis right extracranial internal carotid. Severe (>70%) stenosis left extracranial internal carotid. Patent and antegrade vertebrals bilaterally. Ordering Physician: Gianfranco West Referring Physician: Gianfranco West Performed By: Charu Joaquin RDCS, RVT
== END | disposition home or self-care (01) ==
PROVIDERS: PCP Family Medicine; Referring Provider Family Medicine; Visit Provider Family Medicine
DX: G45.9 Transient cerebral ischemic attack, unspecified (principal); R42 Dizziness and giddiness
CPT/HCPCS: 93880

== ENCOUNTER → 2024-03-20 | Outpatient (CLI) | payer MEDICARE, SELFPAY ==
[2024-03-20 10:02] LABS: Absolute Lymphocyte Count 1.89 X10^3/uL (0.83-4.51); Absolute Neutrophil Count 5.9 X10^3/uL (2.0-7.7); Basophil# 0.09 X10^3/uL; Eosinophil# 0.41 X10^3/uL; Eosinophils% 4.5 % (0-5); Hematocrit 36.2 % (40-54); Hemoglobin 12.2 g/dL (13.0-16.5); Lymphocyte # 1.89 X10^3/ul (0.83-4.51); Lymphocyte % 20.6 % (19-41); Mean Corp Hgb Conc 33.7 g/dL (32-36); Mean Corpuscular Hgb 32.8 pg (27.0-32.0); Mean Corpuscular Volume 97.3 fL (80-94); Mean Platelet Vol. 9.8 fl (6.2-12.0); Monocyte# 0.82 X10^3/uL; Monocyte% 8.9 % (0-10); NRBC Flagged by Analyzer 0 % (0-5); Neutrophil # 5.91 X10^3/uL (2.7-7.7); Neutrophil % 64.5 % (47-70); Platelet Count 271 K/mm3 (150-450); RBC Distribution Width CV 15.4 % (11.6-14.6); RBC Distribution Width SD 53.5 fl (35.1-43.9); Red Blood Count 3.72 M/mm3 (4.6-6.2); White Blood Count 9.2 K/mm3 (4.4-11.0)
[2024-03-20 10:30] LABS: AST(SGOT) 14 U/L (15-37); Alanine Aminotransfer ALT/SGPT 21 U/L (16-61); Albumin, Serum 3.5 g/dL (3.2-5.0); Alkaline Phosphatase 111 U/L (45-117); Anion Gap 6 (5-15); BUN 10 mg/dL (7-18); Calcium,Total 9.3 mg/dL (8.5-10.1); Chloride 107 mmol/L (98-107); EST Glomerular Filtration Rate 79 mL/min (>60); Est Glom Filt Rate - Afr Amer 96 mL/min (>60); Globulin 3.5 g/dL (2.2-4.2); Glucose 127 mg/dL (74-106); Potassium 3.9 mmol/L (3.5-5.1); Sodium Level 139 mmol/L (136-145)
== END | disposition home or self-care (01) ==
LOC: MTLAB 09:17
PROVIDERS: PCP Family Medicine; Referring Provider Internal Medicine Rheumatology; Visit Provider Internal Medicine Rheumatology
DX: M05.79 Rheumatoid arthritis with rheumatoid factor of multiple sites without organ or systems involvement (principal); Z79.899 Other long term (current) drug therapy
CPT/HCPCS: 36415; 80053; 85025

== ENCOUNTER 2024-03-31 12:52 | Observation (INO) | payer MEDICARE, SELFPAY ==
[2024-03-31] VITALS (12 sets, daily range): BP systolic 105–138; BP diastolic 9–89; PULSE 59–79; RESP 15–20; TEMP 36.5–36.8; O2SAT 91–97; BMI 29.7; BMI 29.3
--- NOTE | 2024-03-31 12:56 | ED.RN ---
SPOKE TO DR NAVA REGARDING PT SYMPTOMS, OK TO HOLD IN TRIAGE UNTIL NEXT ROOM AVAILABLE SINCE ALL SYMPTOMS HAVE RESOLVED.
--- NOTE | 2024-03-31 13:27 | EDS_ITS ---
HPI History of Present Illness Chief Complaint: Neuro S/Sx Informant: patient Narrative Narrative: Presents by private vehicle transient numbness left eye with tongue lip and right blurry vision at noon today while at [employer]. Symptoms lasted 5 minutes. No headache no speech issues no hemiparesis. He reports 2 months ago had symptoms of what he explains as confusion where he had trouble with his keyboard at work which lasted 30 minutes. He follow-up with his PCP 2 days later was told likely TIA. He is already on baby aspirin with coronary disease history is on a statin. An outpatient carotid ultrasound for follow-up. States there was 70% blockage on the left side. Currently denies any symptoms. [facility] Medical History Arthritis Diabetes Thoracic aortic aneurysm without rupture Pure hypercholesterolemia Essential hypertension IBS (irritable bowel syndrome) Atherosclerotic heart disease of [place] coronary artery without angina pectoris Tobacco abuse Home Medications ?Medication ?Instructions ?Recorded ?Last Taken ?Type cholecalciferol (vitamin D3) 25 2,000 unit PO DAILY 03/24/20 Unknown History mcg (1,000 unit) tablet metformin 500 mg tablet 500 mg PO DAILY 03/24/20 Unknown History aspirin 81 mg chewable tablet 81 mg PO DAILY@0800 04/07/20 Unknown History albuterol sulfate 90 mcg/actuation 2 puff inhalation Q6H PRN Wheezing 11/21/20 Unknown History aerosol inhaler (Ventolin HFA) coenzyme Q10 100 mg capsule (Co 200 mg PO DAILY 07/05/21 Unknown History Q-10) fluticasone fur. 200 mcg-umeclid 1 inh inhalation DAILY 01/15/22 Unknown History 62.5 mcg-vilant 25 mcg inhalat.powder (Trelegy Ellipta) acetaminophen 500 mg tablet 500 mg PO Q6H PRN 09/03/22 Unknown History aluminum-mag hydroxide-simethicone 30 ml PO TID PRN 09/03/22 Unknown History 200 mg-200 mg-20 mg/5 mL oral susp (Maalox Advanced) guaifenesin 600 mg tablet, 600 mg PO Q12H PRN 09/03/22 Unknown History extended release 12 hr (Mucinex) lidocaine 4 % topical patch 1 patch topical DAILY PRN 09/03/22 Unknown History magnesium hydroxide 400 mg/5 mL 30 ml PO DAILY PRN 09/03/22 Unknown History oral suspension (Milk of Magnesia) fluticasone propionate 50 1 spray intranasal Q12H PRN 01/17/23 Unknown History mcg/actuation nasal allergy symptoms spray,suspension (Flonase Allergy Relief) nitroglycerin 0.4 mg sublingual 0.4 mg sublingual Q5-15M PRN chest 01/17/23 Unknown Rx tablet pain #25 tabs atorvastatin 40 mg tablet 40 mg PO QHS #90 tabs 04/29/23 Unknown Rx losartan 25 mg tablet 12.5 mg (1/2 x 25 mg) PO DAILY #45 10/28/23 Unknown Rx tabs methotrexate sodium 2.5 mg tablet 2.5 mg PO QWEEK 01/23/24 Unknown History tramadol 50 mg tablet 50 mg PO BID PRN 01/23/24 Unknown History metoprolol tartrate 50 mg tablet 50 mg PO BID #180 tabs 02/11/24 Unknown Rx Allergy/AdvReac Type Severity Reaction Status Date / Time Penicillins Allergy Swelling Verified 03/31/24 12:56 Family History Father Heart disease Mother Heart disease Surgical History Status post aortic dissection repair (~08/17/22) History of coronary artery bypass surgery (~03/08/20) History of left heart catheterization (12/31/19) History of foot surgery History of hernia repair Social History household members: spouse Smoking Status: Current every day smoker tobacco type: cigarettes alcohol intake: current details: daily substance use type: does not use ROS ROS ED Constitutional Constitutional ED: Denies chills, fever(s) or sweats Eyes Eyes: Reports blurry vision; Denies change in vision ENT ENT ED: Denies dysphagia or sore throat Cardiovascular Cardiovascular: Denies chest pain, leg edema, palpitations or racing heartbeat Respiratory/Chest Respiratory/Chest: Denies cough, dyspnea or dyspnea on exertion Gastrointestinal Gastrointestinal: Denies abdominal pain, diarrhea, nausea or vomiting Genitourinary Genitourinary ED: Denies dysuria, hematuria or urinary frequency Musculoskeletal Musculoskeletal: Denies back pain, extremity pain or neck pain Integumentary Denies rash or wounds Neurologic Neurologic: Reports paresthesias; Denies headache(s) or weakness EXAM Physical Exam Const Vital Signs: 03/31/24 12:53 03/31/24 13:12 Temperature 98.2 F Temperature Source Temporal Pulse Rate 78 Respiratory Rate 16 Blood Pressure 138/65 H Blood Pressure Mean 89 Pulse Ox 94 Oxygen Delivery Method Room Air Room Air Positive well nourished and well developed General Appearance ED: well developed and NAD HEENT Reports moist mucous membranes normocephalic and atraumatic Eyes EOMs intact bilaterally and conjunctivae normal Eyes Narrative: With glasses visual minaya intact in all 4 quadrants of both eyes. General Eye ED: Yes normal appearance of both eyes Neck no lymphadenopathy and supple General: Negative for tenderness Chest Wall Chest: Negative for tenderness Resp normal respiratory effort and normal air movement Effort and Inspection: symmetric chest movement; Negative for respiratory distress Cardio regular rate, regular rhythm and no murmurs Peripheral Pulses: pulses 2+ throughout GI normal to inspection, nondistended, normoactive bowel sounds and non-tender Palpation: Negative for guarding or rebound tenderness present Back/Spine no CVA tenderness and no thoracic nor lumbar tenderness Extremity normal to inspection General Extremety ED: Negative for edema or tenderness General Extremity: Negative for edema Neuro oriented x3, CN's II-XII intact bilaterally and no sensory deficits noted Sensorium / Orientation: awake and alert Skin no rashes or lesions noted and no wounds NIHSS NIHSS Initial: 1a Level of Consciousness: 0 1b LOC Questions (Score 2 if aphasic/stupor): 0 1c LOC Commands (Only score 1st attempt): 0 2 Best Gaze (If aphasic, use reflexive mvmts.): 0 3 Visual: 0 4 Facial Palsy: 0 5 Motor Arm Right (UN = amputation/fusion): 0 5 Motor Arm Left: 0 6 Motor Leg Right: 0 6 Motor Leg Left: 0 7 Limb ataxia (Only + if out of proportion): 0 8 Sensory (Aphasia/stupor=0 or 1, coma=2): 0 9 Best Language: 0 10 Dysarthria (mute, coma=2, intubated=UN): 0 11 Extinction and Inattention (only scored if +): 0 Total Score: 0 MDM MDM MDM Narrative Medical decision making narrative: Interventions / MDM: Differential diagnosis: Diagnosis considered but do not suspect: N/A My EKG interpretation: Sinus rate of 71, no ST or T wave changes, right bundle branch block. Imaging independently reviewed and interpreted by myself: N/A External documents reviewed: Carotid duplex from March 17, 2024 greater than 70% stenosis on the left internal carotid. Less than 50% on the right side. Test considered but not ordered:N/A ED course: Patient transient paresthesias and blurry vision. This resolved lasting 5 minutes. Confirm 70% blockage left side from his outpatient exam. Could be a recurrent TIA. CT brain will be ordered, labs. EKG. With symptoms resolved, do not feel stroke team is necessary currently. Will plan for admission for MRI and further evaluation. Re-evaluation: stable Disposition discussed with patient/family/significant other: Case discussed with consulting clinician: N/A This note was generated with [employer] dictation software. It may contain incorrect words, spelling, and punctuation that were not noted in checking the note before signing. Discharge Plan Triage Chief Complaint: Neuro S/Sx ED Provider: Pradip Turcios Dx/Rx/DC Orders Prescriptions: No Action albuterol sulfate [Ventolin HFA] 90 mcg/actuation HFA aerosol inhaler 2 puff INHALATION Q6H PRN (Reason: Wheezing) metformin 500 mg tablet 500 mg PO DAILY coenzyme Q10 [Co Q-10] 100 mg capsule 200 mg PO DAILY Trelegy Ellipta 200-62.5-25 mcg blister with device 1 inh inhalation DAILY fluticasone propionate [Flonase Allergy Relief] 50 mcg/actuation spray,suspension 1 spray intranasal Q12H PRN (Reason: allergy symptoms) Rx Instructions: administer into each nostril nitroglycerin 0.4 mg tablet, sublingual 0.4 mg SUBLINGUAL Q5-15M PRN (Reason: chest pain) Qty: 25 6RF Rx Instructions: until response; do not exceed 3 doses per episode alum-mag hydroxide-simeth [Maalox Advanced] 200-200-20 mg/5 mL suspension 30 ml PO TID PRN Rx Instructions: administer between meals guaifenesin [Mucinex] 600 mg tablet extended release 12hr 600 mg PO Q12H PRN lidocaine 4 % adhesive patch,medicated 1 patch topical DAILY PRN magnesium hydroxide [Milk of Magnesia] 400 mg/5 mL suspension 30 ml PO DAILY PRN acetaminophen 500 mg tablet 500 mg PO Q6H PRN tramadol 50 mg tablet 50 mg PO BID PRN methotrexate sodium 2.5 mg tablet 2.5 mg PO QWEEK Rx Instructions: 6 tablets weekly cholecalciferol (vitamin D3) 25 mcg (1,000 unit) tablet 2,000 unit PO DAILY aspirin 81 mg tablet,chewable 81 mg PO DAILY@0800 atorvastatin 40 mg tablet 40 mg PO QHS Qty: 90 3RF losartan 25 mg tablet 12.5 mg PO DAILY Qty: 45 3RF metoprolol tartrate 50 mg tablet 50 mg PO BID Qty: 180 3RF Primary Care Provider: Gianfranco West Referrals: Gianfranco West MD [Primary Care Provider] - Print Language: Sinhala
--- NOTE | 2024-03-31 13:27 | ED.VIS.STROK ---
HPI History of Present Illness Chief Complaint: Neuro S/Sx Informant: patient Narrative Narrative: Presents by private vehicle transient numbness left eye with tongue lip and right blurry vision at noon today while at [employer]. Symptoms lasted 5 minutes. No headache no speech issues no hemiparesis. He reports 2 months ago had symptoms of what he explains as confusion where he had trouble with his keyboard at work which lasted 30 minutes. He follow-up with his PCP 2 days later was told likely TIA. He is already on baby aspirin with coronary disease history is on a statin. An outpatient carotid ultrasound for follow-up. States there was 70% blockage on the left side. Currently denies any symptoms. [facility] Medical History (Updated 03/31/24 @ 15:[address] Elizabeth Lawson MD) MISTY on CPAP Obesity Rheumatoid arthritis Arthritis Diabetes Thoracic aortic aneurysm without rupture Pure hypercholesterolemia Essential hypertension IBS (irritable bowel syndrome) Atherosclerotic heart disease of [place] coronary artery without angina pectoris Tobacco abuse Home Medications ?Medication ?Instructions ?Recorded ?Last Taken ?Type cholecalciferol (vitamin D3) 25 2,000 unit PO DAILY SUPPLEMENT 03/24/20 03/31/24 History mcg (1,000 unit) tablet aspirin 81 mg chewable tablet 81 mg PO DAILY@0800 HEART HEALTH 04/07/20 03/31/24 History albuterol sulfate 90 mcg/actuation 2 puff inhalation Q6H PRN WHEEZING 11/21/20 Unknown History aerosol inhaler (Ventolin HFA) coenzyme Q10 100 mg capsule (Co 100 mg PO DAILY SUPPLEMENT 07/05/21 03/31/24 History Q-10) fluticasone fur. 200 mcg-umeclid 1 inh inhalation DAILY SHORTNESS 01/15/22 Unknown History 62.5 mcg-vilant 25 mcg OF BREATH/WHEEZING inhalat.powder (Trelegy Ellipta) fluticasone propionate 50 1 spray intranasal Q12H PRN NASAL 01/17/23 Unknown History mcg/actuation nasal CONGESTION spray,suspension (Flonase Allergy Relief) nitroglycerin 0.4 mg sublingual 0.4 mg sublingual Q5-15M PRN CHEST 01/17/23 Unknown Rx tablet PAIN #25 tabs atorvastatin 40 mg tablet 40 mg PO QHS CHOLESTEROL #90 tabs 04/29/23 03/30/24 Rx losartan 25 mg tablet 12.5 mg (1/2 x 25 mg) PO DAILY 10/28/23 03/31/24 Rx BLOOD PRESSURE #45 tabs methotrexate sodium 2.5 mg tablet 20 mg PO SA 01/23/24 03/28/24 History tramadol 50 mg tablet 50 mg PO TID PRN SEVERE HIP PAIN 01/23/24 Unknown History metoprolol tartrate 50 mg tablet 50 mg PO BID BLOOD PRESSURE #180 02/11/24 03/31/24 Rx tabs folic acid 1 mg tablet 2 mg PO DAILY SUPPLEMENT 03/31/24 03/31/24 History leucovorin calcium 15 mg tablet 15 mg PO FELIZ 03/31/24 03/15/24 History metformin 500 mg tablet,extended 500 mg PO DAILY BLOOD SUGARS 03/31/24 03/31/24 History release 24 hr multivitamin with minerals-folic 0.5 tab PO DAILY HEALTH MAINTENANCE 03/31/24 03/31/24 History acid 80 mcg chewable tablet (Centrum Adult 50 Plus) Allergy/AdvReac Type Severity Reaction Status Date / Time Penicillins Allergy Swelling Verified 03/31/24 12:56 Family History Father Heart disease CAD (coronary artery disease) Hypertension Mother Heart disease CAD (coronary artery disease) Hypertension Surgical History Status post aortic dissection repair (~08/17/22) History of coronary artery bypass surgery (~03/08/20) History of left heart catheterization (12/31/19) History of foot surgery History of hernia repair Social History (Updated 03/31/24 @ 15:[address] Elizabeth Lawson MD) household members: spouse Smoking Status: Current every day smoker tobacco type: cigarettes Smoking packs per day: 1 Smoking cigarettes per day: 20.0 alcohol intake: current alcohol intake frequency: a few times a week details: Currently reports 1-2 beers/week, prior had been heavier. substance use type: does not use ROS ROS ED Constitutional Constitutional ED: Denies chills, fever(s) or sweats Eyes Eyes: Reports blurry vision; Denies change in vision ENT ENT ED: Denies dysphagia or sore throat Cardiovascular Cardiovascular: Denies chest pain, leg edema, palpitations or racing heartbeat Respiratory/Chest Respiratory/Chest: Denies cough, dyspnea or dyspnea on exertion Gastrointestinal Gastrointestinal: Denies abdominal pain, diarrhea, nausea or vomiting Genitourinary Genitourinary ED: Denies dysuria, hematuria or urinary frequency Musculoskeletal Musculoskeletal: Denies back pain, extremity pain or neck pain Integumentary Denies rash or wounds Neurologic Neurologic: Reports paresthesias; Denies headache(s) or weakness EXAM Physical Exam Const Vital Signs: 03/31/24 12:53 03/31/24 13:12 03/31/24 13:12 Temperature 98.2 F Temperature Source Temporal Pulse Rate 78 73 Respiratory Rate 16 19 H Blood Pressure 138/65 H 105/54 L Blood Pressure Mean 89 71 Pulse Ox 94 97 Oxygen Delivery Method Room Air Room Air Room Air 03/31/24 13:42 03/31/24 14:12 03/31/24 14:30 Temperature Temperature Source Pulse Rate 70 66 67 Respiratory Rate 15 16 20 H Blood Pressure 110/57 L 109/55 L 116/59 L Blood Pressure Mean 74 73 78 Pulse Ox 93 94 93 Oxygen Delivery Method Room Air Room Air Room Air 03/31/24 15:00 Temperature Temperature Source Pulse Rate 69 Respiratory Rate Blood Pressure 127/89 H Blood Pressure Mean 101 Pulse Ox Oxygen Delivery Method Positive well nourished and well developed General Appearance ED: well developed and NAD HEENT Reports moist mucous membranes normocephalic and atraumatic Eyes EOMs intact bilaterally and conjunctivae normal Eyes Narrative: With glasses visual minaya intact in all 4 quadrants of both eyes. General Eye ED: Yes normal appearance of both eyes Neck no lymphadenopathy and supple General: Negative for tenderness Chest Wall Chest: Negative for tenderness Resp normal respiratory effort and normal air movement Effort and Inspection: symmetric chest movement; Negative for respiratory distress Cardio regular rate, regular rhythm and no murmurs Peripheral Pulses: pulses 2+ throughout GI normal to inspection, nondistended, normoactive bowel sounds and non-tender Palpation: Negative for guarding or rebound tenderness present Back/Spine no CVA tenderness and no thoracic nor lumbar tenderness Extremity normal to inspection General Extremety ED: Negative for edema or tenderness General Extremity: Negative for edema Neuro oriented x3, CN's II-XII intact bilaterally and no sensory deficits noted Sensorium / Orientation: awake and alert Skin no rashes or lesions noted and no wounds NIHSS NIHSS Initial: 1a Level of Consciousness: 0 1b LOC Questions (Score 2 if aphasic/stupor): 0 1c LOC Commands (Only score 1st attempt): 0 2 Best Gaze (If aphasic, use reflexive mvmts.): 0 3 Visual: 0 4 Facial Palsy: 0 5 Motor Arm Right (UN = amputation/fusion): 0 5 Motor Arm Left: 0 6 Motor Leg Right: 0 6 Motor Leg Left: 0 7 Limb ataxia (Only + if out of proportion): 0 8 Sensory (Aphasia/stupor=0 or 1, coma=2): 0 9 Best Language: 0 10 Dysarthria (mute, coma=2, intubated=UN): 0 11 Extinction and Inattention (only scored if +): 0 Total Score: 0 MDM MDM MDM Narrative Medical decision making narrative: Interventions / MDM: Differential diagnosis: TIA, stroke Diagnosis considered but do not suspect: N/A My EKG interpretation: Sinus rate of 71, no ST or T wave changes, right bundle branch block. Imaging independently reviewed and interpreted by myself: CT brain: No acute process. Chest x-ray 1 view: Chronic changes, also read by radiology. External documents reviewed: Carotid duplex from March 17, 2024 greater than 70% stenosis on the left internal carotid. Less than 50% on the right side. Test considered but not ordered:N/A ED course: Patient transient paresthesias and blurry vision. This resolved lasting 5 minutes. Confirm 70% blockage left side from his outpatient exam. Could be a recurrent TIA. CT brain will be ordered, labs. EKG. With symptoms resolved, do not feel stroke team is necessary currently. Will plan for admission for MRI and further evaluation. 1430: CT brain negative. Chest x-ray chronic changes. Labs stable. EKG sinus rhythm. Patient remained stable with no recurrent symptoms. Will discuss with hospitalist for admission. Discussed with Dr. Lawson for admission. Re-evaluation: stable Disposition discussed with patient/family/significant other: Patient Case discussed with consulting clinician: Hospitalist This note was generated with [employer] dictation software. It may contain incorrect words, spelling, and punctuation that were not noted in checking the note before signing. Lab Data Attestation: I reviewed the patient's lab results. Labs: Laboratory Results - last 24 hr 03/31/24 13:25 WBC 11.6 H RBC 3.91 L Hgb 12.9 L Hct 38.0 L MCV 97.2 H MCH 33.0 H MCHC 33.9 RDW Std Deviation 54.2 H RDW Coeff of Marlene 15.4 H Plt Count 338 MPV 9.8 Immature Gran % (Auto) 0.300 Neut % (Auto) 71.8 H Lymph % (Auto) 17.0 L Potter % (Auto) 4.5 Eos % (Auto) 5.4 H Baso % (Auto) 1.0 Absolute Neuts (auto) 8.3 H Absolute Lymphs (auto) 1.96 Nucleated RBC % 0 PT 14.4 INR 1.1 APTT 36.5 H Sodium 140 Potassium 3.6 Chloride 110 H Carbon Dioxide 24.0 Anion Gap 6 BUN 12 Creatinine 1.04 Estim Creat Clear Calc 84.15 Est GFR (MDRD) Af Amer 91 Est GFR (MDRD) Non-Af 76 BUN/Creatinine Ratio 11.5 Glucose 149 H Calcium 9.5 Troponin I High Sens 4 Radiography Diagnostic Testing: Clinical Impression(s) from Imaging Studies Chest X-Ray 03/31/24 13:35 IMPRESSION: Stable examination with increased interstitial markings in both lungs suggestive of scarring. Electronically Signed: Nba Mccabe MD at 14:07 EDT , Brain CT 03/31/24 13:58 IMPRESSION: Chronic involutional changes of the brain. Electronically Signed: Nba Mccabe MD at 14:13 EDT , Discharge Plan Dx/Rx/DC Orders Clinical Impression: Brain TIA, Carotid stenosis, left, Paresthesia Disposition Disposition: Acute Care [facility]
--- NOTE | 2024-03-31 13:35 | RAD_ITS ---
STUDY: X-RAY CHEST REASON FOR EXAM: Male, 68 years old. Neuro deficit, acute, stroke suspected TECHNIQUE: Single AP portable view of the chest. COMPARISON: Comparison is made with prior study dated November 08, 2023. FINDINGS: EKG electrodes are seen. Stable appearance of increased interstitial markings in both lungs with areas of confluence suggestive of chronic scarring. There is no demonstrated pleural abnormality. Sternal cerclage wires and vascular clips are present from a prior sternotomy and coronary artery bypass graft procedure (CABG). Normal mediastinum and james. Normal visualized pulmonary arteries. There is atherosclerotic tortuosity of the aortic arch and descending thoracic aorta. There are degenerative changes of the visualized thoracic spine. Normal visualized ribs, clavicles, and shoulders. There is no demonstrated abnormality of the visualized soft tissue structures of the upper abdomen. RAD/Chest 1 View IMPRESSION: Stable examination with increased interstitial markings in both lungs suggestive of scarring. Electronically Signed: Nba Mccabe MD at 14:07 EDT ,
[2024-03-31 13:37] LABS: Absolute Lymphocyte Count 1.96 X10^3/uL (0.83-4.51); Absolute Neutrophil Count 8.3 X10^3/uL (2.0-7.7); Basophil# 0.11 X10^3/uL; Eosinophil# 0.62 X10^3/uL; Eosinophils% 5.4 % (0-5); Hemoglobin 12.9 g/dL (13.0-16.5); Lymphocyte # 1.96 X10^3/ul (0.83-4.51); Mean Corp Hgb Conc 33.9 g/dL (32-36); Mean Corpuscular Volume 97.2 fL (80-94); Mean Platelet Vol. 9.8 fl (6.2-12.0); Monocyte# 0.52 X10^3/uL; Monocyte% 4.5 % (0-10); NRBC Flagged by Analyzer 0 % (0-5); Neutrophil # 8.31 X10^3/uL (2.7-7.7); Neutrophil % 71.8 % (47-70); Platelet Count 338 K/mm3 (150-450); RBC Distribution Width CV 15.4 % (11.6-14.6); RBC Distribution Width SD 54.2 fl (35.1-43.9); Red Blood Count 3.91 M/mm3 (4.6-6.2); White Blood Count 11.6 K/mm3 (4.4-11.0)
[2024-03-31 13:42] LABS: International Normalized Ratio 1.1; Partial Thromboplast Time 36.5 Seconds (24.1-36.2); Prothrombin Time (Protime)PT. 14.4 SECONDS (11.7-14.9)
[2024-03-31 13:50] LABS: Anion Gap 6 (5-15); BUN 12 mg/dL (7-18); BUN/Creat Ratio 11.5 RATIO (10-20); Calcium,Total 9.5 mg/dL (8.5-10.1); Chloride 110 mmol/L (98-107); Creatinine, Serum 1.04 mg/dL (0.70-1.30); EST Glomerular Filtration Rate 76 mL/min (>60); Est Glom Filt Rate - Afr Amer 91 mL/min (>60); Estimated Creatinine Clearance 84.15 ml/min; Glucose 149 mg/dL (74-106); Potassium 3.6 mmol/L (3.5-5.1); Sodium Level 140 mmol/L (136-145); Troponin-I HS 4 pg/mL (3.0-78.0)
--- NOTE | 2024-03-31 13:58 | CT_ITS ---
STUDY: CT BRAIN WITHOUT CONTRAST REASON FOR EXAM: Male, 68 years old. Transient blurry vision, left lip numbness RADIATION DOSAGE (If Supplied By Facility): CTDIvol = ( 47.06 ) mGy, DLP = ( 907.97 ) mGycm TECHNIQUE: Transaxial CT imaging of the brain was performed without administration of intravenous contrast material. Individualized dose optimization techniques were used for this CT. COMPARISON: No relevant priors. FINDINGS: Normal soft tissue structures. Normal calvarium. There is mild cerebral atrophy with widening of the extra-axial spaces and ventricular dilatation. There are areas of decreased attenuation within the white matter tracts of the supratentorial brain, consistent with microvascular disease changes. Normal basal ganglia and thalami. Normal brainstem. Normal cerebellum. There is no intracranial hemorrhage. There are no findings of an acute ischemic infarction. Atherosclerotic plaque formation of the cavernous portions of the internal carotid arteries bilaterally and vertebral arteries. Partial opacification of the ethmoid sinuses. Partial opacification of the right maxillary sinus and mucosal thickening of the left maxillary sinus. CT/Brain/Head without Contrast IMPRESSION: Chronic involutional changes of the brain. Electronically Signed: Nba Mccabe MD at 14:13 EDT ,
--- NOTE | 2024-03-31 14:32 | PCM.HP.STD ---
HPI - General General Date of Admission: 03/31/24 Date of Service: 03/31/24 Chief Complaint: Transient L sided facial paresthesias, R eye vision changes. HPI Narrative The patient is a 68 y/o M w/ PMHx: Rheumatoid arthritis, Carotid disease, MISTY on CPAP, COPD w/ allergic rhinitis, Obesity, HTN, HLD, IBS, CAD s/p CABG x 4, Hx Thoracic AA s/p repair, Tobacco use, Diabetes mellitus type II who presents to the [facility] ED on 03/31/24 with history of sudden onset numbness across his tongue as well as the left side of his lips and visual changes to the right eye at approximately 12:15 PM with all symptoms resolving after approximately 15 minutes with call to his PCP to review who recommended transition to the ED for evaluation with history of possible TIA several months prior with known left carotid disease reportedly 70% stenosed. Workup in the ED included T98.2, heart rate 78, BP 138/65 with most recent repeat 105/54, respiratory rate 16, 94 to 97% on room air, CBC with WBC 11.6, hemoglobin 12.9, MCV 97.2, platelet 338 with left shift, coags with PTT 36.5 otherwise unremarkable, BMP chloride 110, glucose 149 otherwise not marked appearing, troponin 4, chest x-ray increased interstitial markings both lungs suggestive of scarring, CT head with chronic involutional changes, EKG with SR with RBBB with no acute evidence of ischemia. [facility] Medical History (Updated 03/31/24 @ 15:[address] Elizabeth Lawson MD) MISTY on CPAP Obesity Rheumatoid arthritis Arthritis Diabetes Thoracic aortic aneurysm without rupture Pure hypercholesterolemia Essential hypertension IBS (irritable bowel syndrome) Atherosclerotic heart disease of telida coronary artery without angina pectoris Tobacco abuse Home Medications ?Medication ?Instructions ?Recorded ?Last Taken ?Type cholecalciferol (vitamin D3) 25 2,000 unit PO DAILY SUPPLEMENT 03/24/20 03/31/24 History mcg (1,000 unit) tablet aspirin 81 mg chewable tablet 81 mg PO DAILY@0800 HEART HEALTH 04/07/20 03/31/24 History albuterol sulfate 90 mcg/actuation 2 puff inhalation Q6H PRN WHEEZING 11/21/20 Unknown History aerosol inhaler (Ventolin HFA) coenzyme Q10 100 mg capsule (Co 100 mg PO DAILY SUPPLEMENT 07/05/21 03/31/24 History Q-10) fluticasone fur. 200 mcg-umeclid 1 inh inhalation DAILY SHORTNESS 01/15/22 Unknown History 62.5 mcg-vilant 25 mcg OF BREATH/WHEEZING inhalat.powder (Trelegy Ellipta) fluticasone propionate 50 1 spray intranasal Q12H PRN NASAL 01/17/23 Unknown History mcg/actuation nasal CONGESTION spray,suspension (Flonase Allergy Relief) nitroglycerin 0.4 mg sublingual 0.4 mg sublingual Q5-15M PRN CHEST 01/17/23 Unknown Rx tablet PAIN #25 tabs atorvastatin 40 mg tablet 40 mg PO QHS CHOLESTEROL #90 tabs 04/29/23 03/30/24 Rx losartan 25 mg tablet 12.5 mg (1/2 x 25 mg) PO DAILY 10/28/23 03/31/24 Rx BLOOD PRESSURE #45 tabs methotrexate sodium 2.5 mg tablet 20 mg PO SA 01/23/24 03/28/24 History tramadol 50 mg tablet 50 mg PO TID PRN SEVERE HIP PAIN 01/23/24 Unknown History metoprolol tartrate 50 mg tablet 50 mg PO BID BLOOD PRESSURE #180 02/11/24 03/31/24 Rx tabs folic acid 1 mg tablet 2 mg PO DAILY SUPPLEMENT 03/31/24 03/31/24 History leucovorin calcium 15 mg tablet 15 mg PO FELIZ 03/31/24 03/15/24 History metformin 500 mg tablet,extended 500 mg PO DAILY BLOOD SUGARS 03/31/24 03/31/24 History release 24 hr multivitamin with minerals-folic 0.5 tab PO DAILY HEALTH MAINTENANCE 03/31/24 03/31/24 History acid 80 mcg chewable tablet (Centrum Adult 50 Plus) Allergy/AdvReac Type Severity Reaction Status Date / Time Penicillins Allergy Swelling Verified 03/31/24 12:56 Family History Father Heart disease CAD (coronary artery disease) Hypertension Mother Heart disease CAD (coronary artery disease) Hypertension Surgical History Status post aortic dissection repair (~08/17/22) History of coronary artery bypass surgery (~03/08/20) History of left heart catheterization (02/13/20) History of foot surgery History of hernia repair Social History (Updated 03/31/24 @ 15:[address] Elizabeth Lawson MD) household members: spouse Smoking Status: Current every day smoker tobacco type: cigarettes Smoking packs per day: 1 Smoking cigarettes per day: 20.0 alcohol intake: current alcohol intake frequency: a few times a week details: Currently reports 1-2 beers/week, prior had been heavier. substance use type: does not use ROS ROS Narrative Admission Review of Systems: CONSTITUTIONAL: No weight loss, fever, chills, + weakness or fatigue. HEENT: + R eye vision changes, L facial paresthesias. Eyes: No double vision or yellow sclerae. Ears, Nose, Throat: No hearing loss, sneezing, congestion, runny nose or sore throat. SKIN: No rash or itching, lesions, wounds. CARDIOVASCULAR: No chest pain, chest pressure or chest discomfort, palpitations, edema, orthopnea, syncopal events. RESPIRATORY: No shortness of breath, cough or sputum, wheezing, hemoptysis. GASTROINTESTINAL: No anorexia, nausea, vomiting or diarrhea, abdominal pain, melena, BRBPR. GENITOURINARY: No dysuria, frequency, urgency or retention. NEUROLOGICAL: + + R eye vision changes, L facial paresthesias. No headache, dizziness, syncope, paralysis, ataxia, focal weakness, change in bowel or bladder control, seizure. MUSCULOSKELETAL: + muscle, back pain, joint pain or stiffness. HEMATOLOGIC: + anemia. No marked easy bleeding or bruising. LYMPHATICS: No enlarged nodes. No history of splenectomy. PSYCHIATRIC: No history of depression or anxiety. ENDOCRINOLOGIC: No reports of sweating, cold or heat intolerance. No polyuria or polydipsia. ALLERGIES: + History of allergic rhinitis. Vital Signs Vital Signs Vital Signs: 03/31/24 12:53 03/31/24 13:12 03/31/24 13:12 Temperature 98.2 F Temperature Source Temporal Pulse Rate 78 73 Respiratory Rate 16 19 H Blood Pressure 138/65 H 105/54 L Blood Pressure Mean 89 71 Pulse Ox 94 97 Oxygen Delivery Method Room Air Room Air Room Air 03/31/24 13:42 03/31/24 14:12 Temperature Temperature Source Pulse Rate 70 66 Respiratory Rate 15 16 Blood Pressure 110/57 L 109/55 L Blood Pressure Mean 74 73 Pulse Ox 93 94 Oxygen Delivery Method Room Air Room Air Weight Weight: 219 lb 2.232 oz Body Mass Index (BMI) 29.7 Physical Exam Narrative Physical Examination: General: Awake, alert, oriented x 3 and cooperative, seated upright in the ED bed, no acute distress. Skin: Normal color, normal turgor, no icterus, no cyanosis. HEENT: AT/NC, EOMI, PERRLA, MMM, despite left-sided carotid disease noted no appreciated carotid bruits or JVD noted. Lungs: Diminished, greater bases, proper effort, no rales, ronchi or wheezing. Heart: Regular rate and rhythm; no gallop, rub audible. Abdomen: Soft, obese, NTTP, ND, normal BS, no appreciated HSM. Extremities: No cyanosis, no clubbing, chronic mild right ankle edema unchanged. Neurological: Patient awake, alert, oriented as noted, cognitive function intact; pupils equally reactive to light and accommodation, cranial nerves grossly normal, moving all 4 extremities, no focal deficits, strength preserved, sensation intact, FTN and HTS appropriate, peripheral minaya of vision intact, negative Babinski assessment. Psychiatric: Affect appears normal, no acute evidence of depressive or anxiety feelings. Results Lab / Micro Data 03/31/24 13:25 03/31/24 13:25 Labs: Laboratory Results - last 24 hr 03/31/24 13:25: WBC 11.6 H, RBC 3.91 L, Hgb 12.9 L, Hct 38.0 L, MCV 97.2 H, MCH 33.0 H, MCHC 33.9, RDW Std Deviation 54.2 H, RDW Coeff of Marlene 15.4 H, Plt Count 338, MPV 9.8, Immature Gran % (Auto) 0.300, Neut % (Auto) 71.8 H, Lymph % (Auto) 17.0 L, [place] % (Auto) 4.5, Eos % (Auto) 5.4 H, Baso % (Auto) 1.0, Absolute Neuts (auto) 8.3 H, Absolute Lymphs (auto) 1.96, Nucleated RBC % 0, PT 14.4, INR 1.1, APTT 36.5 H, Sodium 140, Potassium 3.6, Chloride 110 H, Carbon Dioxide 24.0, Anion Gap 6, BUN 12, Creatinine 1.04, Estim Creat Clear Calc 84.15, Est GFR (MDRD) Af Amer 91, Est GFR (MDRD) Non-Af 76, BUN/Creatinine Ratio 11.5, Glucose 149 H, Calcium 9.5, Troponin I High Sens 4 Imaging Radiology Impression Chest X-Ray 03/31/24 13:35 IMPRESSION: Stable examination with increased interstitial markings in both lungs suggestive of scarring. Electronically Signed: Nba Mccabe MD at 14:07 EDT , Brain CT 03/31/24 13:58 IMPRESSION: Chronic involutional changes of the brain. Electronically Signed: Nba Mccabe MD at 14:13 EDT , Assessment & Plan Assessment/Plan (1) TIA (transient ischemic attack): PLAN: Plan The patient is a 68 y/o M w/ PMHx: Rheumatoid arthritis, Carotid disease, MISTY on CPAP, COPD w/ allergic rhinitis, Obesity, HTN, HLD, IBS, CAD s/p CABG x 4, Hx Thoracic AA s/p repair, Tobacco use, Diabetes mellitus type II who presents to the [facility] ED on 03/31/24 with history of sudden onset numbness across his tongue as well as the left side of his lips and visual changes to the right eye at approximately 12:15 PM with all symptoms resolving after approximately 15 minutes with call to his PCP to review who recommended transition to the ED for evaluation with history of possible TIA several months prior. #1. Left-sided paresthesias, R eye vision changes, transient concerning for TIA w/ known carotid disease: Will admit to PCU, will obtain MRI Brain, patient with notable cardiac evaluation with several ECHOs without any evidence of PFO thus will defer repeat, PT/OT/Speech/Nutrition evaluation per protocol. Will allow permissive HTN, maintain on asa, statin w/ AM FLP, fall precautions. Mag, TSH, FLP, HgbA1c requested. Maintain on fall and aspiration precautions. Most recent imaging carotids w/ noted 03/17/24 Carotid US 70% stenosis on the left internal carotid, < 50% on the right side but from review does not appear to have had prior CTA head thus will proceed with CTA head. Will requested Neurology consultation. Will need follow-up outpatient Vascular surgery follow-up. #2. CAD: s/p 02/2020 CABG x 4 with FRAUSTO to the LAD, free ROBER to the right diagonal, SVG to the OM, and SVG to the right posterior lateral branch w/ follow-up 08/2022 re-implantation of the proximal SVG to the OM and SVG to the PDA of prior CABG. will continue aspirin, statin, temporarily holding metoprolol and losartan given permissive hypertension with resumption once appropriate. #3. Hypertension: Given presentation we will maintain permissive hypertension with resumption once appropriate, as needed agents per stroke protocol in the interim. #4. Hyperlipidemia: Continue home statin regimen. AM FLP. #5. Diabetes mellitus type II: Hold oral home regimen, nutrition consulted per stroke protocol, HgbA1c requested, ADA diet, accu checks w/ ISS. #6. Chronic COPD: Will temporarily hold home inhaler and transition in the interim to ATC budesonide therapy, PRN albuterol, HOB, IS parameters. Patient uses as needed Flonase thus we will hold unless symptomatic. #7. Hx Thoracic AA: Initial diagnosis w/ ECHO w/ noted dilated thoracic aorta of approx 5.7-6.5 cm, s/p repair 08/2022 w/ noted type A aortic dissection repair of the acsending w/ graft replacement with a #30 Hemashield. #8. Chronic macrocytic anemia: Admission hemoglobin 12.9, MCV 97.2, baseline hemoglobin appears 12-13, stable however given presentation to be cautious we will obtain folic acid level as well as vitamin B12 level, especially given history of methotrexate although patient per record is taking 2 mg p.o. daily of folic acid, will continue to trend. #9. Tobacco Abuse: Encouraged cessation, inpatient consultation per RT, NR if desired. Initially had stopped 01/2020 but unfortunately started again approximately 1 year ago in 2022, back to 1 pack/day. #10. Rheumatoid arthritis: Will hold patient methotrexate is normally due on the weekend, continue supplementation with folic acid, level pending given macrocytic anemia as noted above. Patient does mention some concerns about methotrexate potentially being the cause of his current presentation but noted need to continue to workup and further evaluate risk factors as noted #1. Encourage continued outpatient follow-up with rheumatology as previously arranged especially given patient concerns. #11. Obesity: Weight loss and lifestyle changes encouraged. #12. MISTY: CPAP q HS. #13. DVT prophylaxis: Lovenox. #14. CODE status: Patient does not have healthcare Pap information consultant or living will in place but notes his would be his decision-maker if necessary. Discussed CODE status at length including difference between FULL code, DNR-CCA and DNR-CC status. Following discussions about the differences in these status, requested DNR-CCA, no intubation which was verified. He notes given his cardiac history he feels he would have a poor quality of life and if coded would likely have low change of a decent outcome. Advanced Care Planning Face to Face Time: 16 minutes. Charges/Coding Visit Charges Inpatient E&M: 00432 Init Hosp L2 Procedures Hospitalists Procedures: 72286 Advncd Care Plan 30 Min
[2024-03-31 15:17] LABS: Magnesium 1.8 mg/dL (1.6-2.6)
--- NOTE | 2024-03-31 16:40 | CT_ITS ---
STUDY: CTA OF THE BRAIN REASON FOR EXAM: Male, 68 years old. TIA RADIATION DOSAGE (If Supplied By Facility): CTDIvol = ( 26.65 ) mGy, DLP = ( 1227.80 ) mGycm TECHNIQUE: CT angiography was performed with a multi-detector CT scanner. Data acquisition was obtained from the skull base through the vertex following intravenous administration of IV 100mL [id number]-[id number]. MIP images were reconstructed from the axial data set. Post-processing of the angiographic images was performed, with multiplanar reformation and 3D reconstruction. Individualized dose optimization techniques were used for this CT. COMPARISON: None. FINDINGS: Normal bilateral petrous carotid arteries. There is calcified plaque formation of the right cavernous carotid artery, without a cross-sectional luminal stenosis. There is calcified plaque formation of the left cavernous carotid artery, with a severe stenosis (greater than 75%). Normal right A1 segments of the anterior cerebral artery. There is hypoplastic development of the left A1 segment of the anterior cerebral arteries with an atretic but intact artery. Normal intact anterior communicating artery (ACOM). Normal bilateral A2 segments of the anterior cerebral arteries. Normal right M1 and M2 segments of the middle cerebral arteries, with a normal M1 bifurcation. Normal left M1 and M2 segments of the middle cerebral arteries, with a normal M1 bifurcation. Normal right posterior communicating artery (PCOM). Normal left posterior communicating artery (PCOM). Normal bilateral vertebral arteries. Normal basilar artery with a normal basilar bifurcation. The visualized bilateral superior cerebellar (SCA) arteries are normal. Normal bilateral P1, P2 and visualized P3 segments of the posterior cerebral arteries. There is no demonstrated aneurysm of the nul[place] of [place]. There is no demonstrated abnormality of the visualized brain. CT/CTA Head W/WO Contrast IMPRESSION: 1. Calcified plaque at both cavernous internal carotid arteries with a severe (80%) stenosis on the left. 2. Otherwise no intracranial stenosis, occlusion, or aneurysm. Electronically Signed: Hardeep Kauffman MD at 20:03 EDT ,
--- NOTE | 2024-03-31 16:40 | MRI_ITS ---
STUDY: MRI BRAIN WITHOUT CONTRAST REASON FOR EXAM: Male, 68 years old. TIA TECHNIQUE: Multiplanar multisequence imaging of the brain was performed without the administration of intravenous contrast. COMPARISON: Noncontrast head CT same date FINDINGS: The ventricles, cisterns, and sulci are within normal limits for patients age. There is no restricted diffusion to suggest acute ischemia or infarction. No succeptibility artifict to suggest intracranial hemorrhage or mineralization. Major intracranial signal voids are preserved. There is no midline shift, mass effect, or extra axial fluid collections are seen. No CP angle or IAC mass is seen. The orbits are unremarkable. The sella turcica and craniovertebral junction are within normal limits. Bilateral maxillary sinus mucoperiosteal thickening. The mastoid air cells are clear. MRI/Brain without Contrast IMPRESSION: No intracranial hemorrhage, acute infarct, or space occupying lesion seen on this noncontrast MRI of the brain. Electronically Signed: Donald Ramirez MD at 18:50 EDT ,
[2024-03-31] MEDS: 0.9% Normal Saline (1000mL) 1,000 ML 100 ML IV (18:55)
[2024-03-31 18:58] LABS: Bedside Glucose 108 mg/dL (74-106)
[2024-03-31] MEDS: Atorvastatin Calcium 40 MG Tablet PO (22:04)
[2024-03-31 22:45] LABS: Bedside Glucose 118 mg/dL (74-106)
[2024-04-01 00:42] VITALS: BP 133/67; PULSE 70; RESP 18; TEMP 36.7; O2SAT 95
[2024-04-01 04:45] VITALS: BP 113/64; PULSE 71; RESP 18; TEMP 36.6; O2SAT 96
[2024-04-01 06:00] VITALS: BMI 29.7
[2024-04-01 07:04] LABS: Bedside Glucose 82 mg/dL (74-106)
[2024-04-01 07:40] LABS: Absolute Neutrophil Count 5.4 X10^3/uL (2.0-7.7); Basophil% 1.2 % (0-1); Eosinophil# 0.58 X10^3/uL; Eosinophils% 6.8 % (0-5); Hematocrit 39.4 % (40-54); Lymphocyte % 23.4 % (19-41); Mean Corpuscular Hgb 32.7 pg (27.0-32.0); Mean Corpuscular Volume 99.2 fL (80-94); Mean Platelet Vol. 10.7 fl (6.2-12.0); Monocyte# 0.43 X10^3/uL; NRBC Flagged by Analyzer 0 % (0-5); Neutrophil # 5.38 X10^3/uL (2.7-7.7); Neutrophil % 63.1 % (47-70); POSITIVE COUNT YES; RBC Distribution Width CV 15.1 % (11.6-14.6); RBC Distribution Width SD 54.3 fl (35.1-43.9); Red Blood Count 3.97 M/mm3 (4.6-6.2); White Blood Count 8.5 K/mm3 (4.4-11.0)
[2024-04-01 08:18] LABS: Hemoglobin A1c 5.6 % (3.8-5.6)
[2024-04-01 08:38] LABS: Bedside Glucose 101 mg/dL (74-106)
[2024-04-01 08:43] VITALS: BP 121/60; PULSE 63; RESP 17; TEMP 36.5; O2SAT 95
[2024-04-01] MEDS: Aspirin 81 MG TAB.CHEW PO (08:49)
[2024-04-01] MEDS: Folic Acid 1 MG Tablet 2 MG PO (08:49)
[2024-04-01 09:05] LABS: AST(SGOT) 29 U/L (15-37); Alanine Aminotransfer ALT/SGPT 34 U/L (16-61); Albumin, Serum 3.3 g/dL (3.2-5.0); Alkaline Phosphatase 98 U/L (45-117); Anion Gap 5 (5-15); BUN 11 mg/dL (7-18); BUN/Creat Ratio 12.8 RATIO (10-20); Chloride 111 mmol/L (98-107); Cholesterol 122 mg/dL (200); Creatinine, Serum 0.86 mg/dL (0.70-1.30); EST Glomerular Filtration Rate 94 mL/min (>60); Est Glom Filt Rate - Afr Amer 114 mL/min (>60); Estimated Creatinine Clearance 101.86 ml/min; Globulin 3.4 g/dL (2.2-4.2); Glucose 87 mg/dL (74-106); High Density Lipoprotein 39 mg/dL; Potassium 4.2 mmol/L (3.5-5.1); Protein, Total 6.7 g/dL (6.4-8.2); Sodium Level 138 mmol/L (136-145); Thyroid Stim Hormone (TSH) 2.39 uIU/mL (0.358-3.74); Triglycerides 170 mg/dL; Very Low Density Lipoprotein 34 mg/dL (5-40)
[2024-04-01 09:23] LABS: Differential Indicated SCAN CRITERIA MET
[2024-04-01 09:24] LABS: Platelet Estimate ADEQUATE (ADEQ)
[2024-04-01 10:04] LABS: Vitamin B12 413 pg/mL (211-911)
[2024-04-01 11:56] LABS: Bedside Glucose 107 mg/dL (74-106)
[2024-04-01 12:33] VITALS: BP 131/61; PULSE 66; RESP 17; TEMP 36.6; O2SAT 94
--- NOTE | 2024-04-01 12:49 | CON.PCM.NE_ITS ---
Assessment and Plan: Neuro Assessment/Plan #Possible TIA- Several event without a consistent neurovascular territory. However, given the patient's risk factors, he is certainly at high risk for TIA/stroke. He does have known severe L carotid stenosis and has had events of transient L eye monocular visual disturbance. I would recommend a CTA neck to better evaluate the carotid disease and consult vascular surgery. If evidence of severe stenosis and amenable to surgery, then would be reasonable to perform CEA if possible -ASA 81 -would add plavix 300mg x 1 followed by plavix 75mg daily for 3 weeks if will not interfere with vascular surgery's plans - contineu Lipitor 80 -MRI brain without stroke -goal LDL<70, HbA1c<7 -CTA head with cavernous carotid disease -CTA neck pending -carotid US with svere L ICA stenoiss, mild R ICA stenosis -TTE pending -BP control: goal normotension 120/80 -tobacco cessation counseling -vascular surgery consult -ophalamology consult to assess if primary ocular issue with vision -cardiac monitoring as an outpatient HPI Consult Data Date of Consult: 04/01/24 HPI Narrative HPI Narrative: 68 yo M w PMH of CAD s/p CABG, AAA, MISTY, tobacco abuse, HLD, HTN, DM. Had an episode 2 months ago at work with vertigo (room spinning sensation), disorientation, visual changes (described as foggy) for 10 minutes and then resolved. Two days ago had 10 minutes of L eye visual changes as if looking thorough broken glass. Yesterday went to hardware store and felt L sided of mouth go numb/tingling and R vision was poor for 10 minutes and then resolved. Has had halo around vision in both eyes intermittently as if looking through shower curtain. Describes it as double vision which improve with covering right eye. Never had complete loss of vision. Drove down to hospital and feels normal currently. Denies weakness, difficultly walking, talking. Takes aspirin daily. [facility] Medical History (Updated 03/31/24 @ 16:51 by Patricia Arreola) Depression Chronic pain Smoker BiPAP (biphasic positive airway pressure) dependence MISTY on CPAP Obesity Rheumatoid arthritis Arthritis Diabetes Thoracic aortic aneurysm without rupture Pure hypercholesterolemia Essential hypertension IBS (irritable bowel syndrome) Atherosclerotic heart disease of [place] coronary artery without angina pectoris Tobacco abuse Home Medications ?Medication ?Instructions ?Recorded ?Last Taken ?Type cholecalciferol (vitamin D3) 25 2,000 unit PO DAILY SUPPLEMENT 03/24/20 03/31/24 History mcg (1,000 unit) tablet aspirin 81 mg chewable tablet 81 mg PO DAILY@0800 [facility] 04/07/20 03/31/24 History albuterol sulfate 90 mcg/actuation 2 puff inhalation Q6H PRN WHEEZING 11/21/20 Unknown History aerosol inhaler (Ventolin HFA) coenzyme Q10 100 mg capsule (Co 100 mg PO DAILY SUPPLEMENT 07/05/21 03/31/24 History Q-10) fluticasone fur. 200 mcg-umeclid 1 inh inhalation DAILY SHORTNESS 01/15/22 Unknown History 62.5 mcg-vilant 25 mcg OF BREATH/WHEEZING inhalat.powder (Trelegy Ellipta) fluticasone propionate 50 1 spray intranasal Q12H PRN NASAL 01/17/23 Unknown History mcg/actuation nasal CONGESTION spray,suspension (Flonase Allergy Relief) nitroglycerin 0.4 mg sublingual 0.4 mg sublingual Q5-15M PRN CHEST 01/17/23 Unknown Rx tablet PAIN #25 tabs losartan 25 mg tablet 12.5 mg (1/2 x 25 mg) PO DAILY 10/28/23 03/31/24 Rx BLOOD PRESSURE #45 tabs methotrexate sodium 2.5 mg tablet 20 mg PO SA 01/23/24 03/28/24 History tramadol 50 mg tablet 50 mg PO TID PRN SEVERE HIP PAIN 01/23/24 Unknown History metoprolol tartrate 50 mg tablet 50 mg PO BID BLOOD PRESSURE #180 02/11/24 03/31/24 Rx tabs folic acid 1 mg tablet 2 mg PO DAILY SUPPLEMENT 03/31/24 03/31/24 History leucovorin calcium 15 mg tablet 15 mg PO FELIZ 03/31/24 03/15/24 History metformin 500 mg tablet,extended 500 mg PO DAILY BLOOD SUGARS 03/31/24 03/31/24 History release 24 hr multivitamin with minerals-folic 0.5 tab PO DAILY HEALTH MAINTENANCE 03/31/24 03/31/24 History acid 80 mcg chewable tablet (Centrum Adult 50 Plus) atorvastatin 80 mg tablet 80 mg PO QHS #30 tabs 04/01/24 Unknown Rx clopidogrel 75 mg tablet (Plavix) 75 mg PO DAILY #21 tabs 04/01/24 Unknown Rx Allergy/AdvReac Type Severity Reaction Status Date / Time Penicillins Allergy Swelling Verified 03/31/24 12:56 Family History Father Heart disease CAD (coronary artery disease) Hypertension Mother Heart disease CAD (coronary artery disease) Hypertension Surgical History Status post aortic dissection repair (~08/17/22) History of coronary artery bypass surgery (~03/08/20) History of left heart catheterization (12/31/19) History of foot surgery History of hernia repair Social History (Updated 03/31/24 @ 15:[address] Elizabeth Lawson MD) household members: spouse Smoking Status: Current every day smoker tobacco type: cigarettes alcohol intake: current alcohol intake frequency: a few times a week details: Currently reports 1-2 beers/week, prior had been heavier. substance use type: does not use Vital Signs Vital Signs Vital Signs: 03/31/24 12:53 03/31/24 13:12 03/31/24 13:12 Temperature 98.2 F Temperature Source Temporal Pulse Rate 78 73 Pulse Strength Respiratory Rate 16 19 H Respiratory Effort Respiratory Depth Respiratory Pattern Blood Pressure 138/65 H 105/54 L Blood Pressure Mean 89 71 Blood Pressure Source Blood Pressure Position Blood Pressure Location Pulse Ox 94 97 Oxygen Delivery Method Room Air Room Air Room Air 03/31/24 13:42 03/31/24 14:12 03/31/24 14:30 Temperature Temperature Source Pulse Rate 70 66 67 Pulse Strength Respiratory Rate 15 16 20 H Respiratory Effort Respiratory Depth Respiratory Pattern Blood Pressure 110/57 L 109/55 L 116/59 L Blood Pressure Mean 74 73 78 Blood Pressure Source Blood Pressure Position Blood Pressure Location Pulse Ox 93 94 93 Oxygen Delivery Method Room Air Room Air Room Air 03/31/24 15:00 03/31/24 16:00 03/31/24 16:43 Temperature 98.2 F Temperature Source Pulse Rate 69 59 L 79 Pulse Strength Respiratory Rate 18 17 Respiratory Effort Respiratory Depth Respiratory Pattern Blood Pressure 127/89 H 115/69 115/9 L Blood Pressure Mean 101 84 44 Blood Pressure Source Blood Pressure Position Blood Pressure Location Pulse Ox 94 97 Oxygen Delivery Method Room Air 03/31/24 16:53 03/31/24 19:35 03/31/24 20:40 Temperature 97.7 F L Temperature Source Oral Pulse Rate 72 Pulse Strength Respiratory Rate 18 Respiratory Effort Respiratory Depth Respiratory Pattern Blood Pressure 121/67 H Blood Pressure Mean 85 Blood Pressure Source Manual Blood Pressure Position Semi-Fowlers Blood Pressure Location Pulse Ox 96 91 92 Oxygen Delivery Method Room Air Room Air Room Air 03/31/24 20:45 03/31/24 22:00 04/01/24 00:42 Temperature 97.8 F 98.1 F Temperature Source Oral Oral Pulse Rate 68 70 Pulse Strength Respiratory Rate 18 18 Respiratory Effort Normal Non-Labored Respiratory Depth Normal Respiratory Pattern Normal Blood Pressure 105/55 L 133/67 H Blood Pressure Mean 71 89 Blood Pressure Source Monitor Monitor Blood Pressure Position Semi-Fowlers Semi-Fowlers Blood Pressure Location Left Arm Left Arm Pulse Ox 94 95 Oxygen Delivery Method Room Air Room Air Room Air 04/01/24 04:13 04/01/24 04:45 04/01/24 08:43 Temperature 97.8 F 97.7 F L Temperature Source Oral Oral Pulse Rate 71 63 Pulse Strength Respiratory Rate 18 17 Respiratory Effort Normal Non-Labored Respiratory Depth Normal Respiratory Pattern Normal Blood Pressure 113/64 121/60 H Blood Pressure Mean 80 80 Blood Pressure Source Monitor Monitor Blood Pressure Position Semi-Fowlers Semi-Fowlers Blood Pressure Location Left Arm Left Arm Pulse Ox 96 95 Oxygen Delivery Method Room Air Room Air 04/01/24 08:58 04/01/24 08:59 04/01/24 12:33 Temperature 97.8 F Temperature Source Oral Pulse Rate 66 Pulse Strength Normal (2+) Respiratory Rate 17 Respiratory Effort Respiratory Depth Respiratory Pattern Blood Pressure 131/61 H Blood Pressure Mean 84 Blood Pressure Source Monitor Blood Pressure Position Semi-Fowlers Blood Pressure Location Left Arm Pulse Ox 94 Oxygen Delivery Method Room Air Room Air Weight Weight: 99.6 kg Body Mass Index (BMI) 29.7 NIHSS NIHSS Nursing Documentation NIHSS Nursing Documentation: NIHSS: Ischemic Stroke/TIA Start: 03/31/24 16:40 Text: For PCU Patients: NIH and Neuro Check every 4 Status: Active hours, PRN and with change in RN caregiver. Freq: [id number] Protocol: Activity Type Activity Date Activity User E-sign Co-sign Detail Recorded Client Recorded Date Recorded By Document 04/01/24 12:33 [facility] 04/01/24 12:38 04/01/24 12:33 NIH Stroke Scale [NIHSS] A score of 0 is normal or asymptomatic . Total possible score is 42. Inpatient: RN or Physician to activate a stroke alert for onset of new stroke symptoms or with NIHSS increase >/= 3 points. Following change in neurological status, NIHSS will be performed per physician order or more frequently PRN. -1a. Level of Consciousness Alert; keenly responsive -1b. LOC Questions Answers BOTH questions correctly. -1c. LOC Commands Performs both tasks correctly . -2. Best Gaze Normal -3. Visual No visual loss -4. Facial Palsy Normal symmetrical movements -5a. Left Arm No drift; arm holds 90 (or 45 ) degrees for full 10 seconds -5b. Right Arm No drift; arm holds 90 (or 45 ) degrees for full 10 seconds -6a. Left Leg No drift; leg holds 30-degree position for full 5 seconds -6b. Right Leg No drift; leg holds 30-degree position for full 5 seconds -7. Limb Ataxia Absent -8. Sensory Normal; no sensory loss -9. Best Language No aphasia; normal -10. Dysarthria Normal -11. Extinction and Inattention No abnormality -Total 0 Query Text:A score of 0 is normal or asymptomatic. Total possible score is 42 . ED: Notify Physician for NIHSS increase by > / = 3 points. Inpatient: RN or Physician to activate a stroke alert for NIHSS increase of > / = 3 points. Coma Scale [Assess] -Eye Opening Spontaneous -Motor Obeys Commands -Verbal Oriented [Total] -Coma Scale Total 15 Physical Exam Narrative MS: awake, alert, oriented x 3, follows commands, able to name, no aphasia, no dysarthria CN: VFF, EOMI, ?no facial weakness, nml facial sensation M:? Antigravity in all extremities, no drift S: nml to LT in all extremities C: no dysmetria Lab / Micro Data 04/01/24 06:55 04/01/24 06:55 Labs: Laboratory Results - last 24 hr 03/31/24 13:25: WBC 11.6 H, RBC 3.91 L, Hgb 12.9 L, Hct 38.0 L, MCV 97.2 H, MCH 33.0 H, MCHC 33.9, RDW Std Deviation 54.2 H, RDW Coeff of [place] 15.4 H, Plt Count 338, MPV 9.8, Immature Gran % (Auto) 0.300, Neut % (Auto) 71.8 H, Lymph % (Auto) 17.0 L, [place] % (Auto) 4.5, Eos % (Auto) 5.4 H, Baso % (Auto) 1.0, Absolute Neuts (auto) 8.3 H, Absolute Lymphs (auto) 1.96, Nucleated RBC % 0, PT 14.4, INR 1.1, APTT 36.5 H, Sodium 140, Potassium 3.6, Chloride 110 H, Carbon Dioxide 24.0, Anion Gap 6, BUN 12, Creatinine 1.04, Estim Creat Clear Calc 84.15, Est GFR (MDRD) Af Amer 91, Est GFR (MDRD) Non-Af 76, BUN/Creatinine Ratio 11.5, G lucose 149 H, Calcium 9.5, Phosphorus 3.0, Magnesium 1.8, Troponin I High Sens 4 03/31/24 18:40: POC Glucose 108 H 03/31/24 22:06: POC Glucose 118 H 04/01/24 06:32: POC Glucose 82 04/01/24 06:55: WBC 8.5, RBC 3.97 L, Hgb 13.0, Hct 39.4 L, MCV 99.2 H, MCH 32.7 H, MCHC 33.0, RDW Std Deviation 54.3 H, RDW Coeff of [place] 15.1 H, Plt Count TNP, MPV 10.7, Immature Gran % (Auto) 0.500, Neut % (Auto) 63.1, Lymph % (Auto) 23.4, [place] % (Auto) 5.0, Eos % (Auto) 6.8 H, Baso % (Auto) 1.2 H, Absolute Neuts (auto) 5.4, Absolute Lymphs (auto) 2.00, Nucleated RBC % 0, Platelet Estimate ADEQUATE, Sodium 138, Potassium 4.2, Chloride 111 H, Carbon Dioxide 22.0, Anion Gap 5, BUN 11, Creatinine 0.86, Estim Creat Clear Calc 101.86, Est GFR (MDRD) Af Amer 114, Est GFR (MDRD) Non-Af 94, BUN/Creatinine Ratio 12.8, Glucose 87, Hemoglobin A1c 5.6, Calcium 9.0, Total Bilirubin 0.60, AST 29, ALT 34, Alkaline Phosphatase 98, Total Protein 6.7, Albumin 3.3, Globulin 3.4, Albumin/Globulin Ratio 1.0, Triglycerides 170, Cholesterol 122, LDL Cholesterol 49, VLDL Cholesterol 34, HDL Cholesterol 39 L, Vitamin B12 413, Folate 17.30, TSH 2.39 04/01/24 08:11: POC Glucose 101 04/01/24 11:19: POC Glucose 107 H Imaging Radiology Impression Chest X-Ray 03/31/24 13:35 IMPRESSION: Stable examination with increased interstitial markings in both lungs suggestive of scarring. Electronically Signed: Nba Mccabe MD at 14:07 EDT , Brain CT 03/31/24 13:58 IMPRESSION: Chronic involutional changes of the brain. Electronically Signed: Nba Mccabe MD at 14:13 EDT , Brain MRI 03/31/24 16:40 IMPRESSION: No intracranial hemorrhage, acute infarct, or space occupying lesion seen on this noncontrast MRI of the brain. Electronically Signed: Donald Ramirez MD at 18:50 EDT , Head CTA 03/31/24 16:40 IMPRESSION: 1. Calcified plaque at both cavernous internal carotid arteries with a severe (80%) stenosis on the left. 2. Otherwise no intracranial stenosis, occlusion, or aneurysm. Electronically Signed: Hardeep Kauffman MD at 20:03 EDT , Active Medications Active Medications Active Medications: Current Medications Generic Name Dose Route Start Last Admin Trade Name Freq PRN Reason Stop Dose Admin Acetaminophen 650 mg 03/31/24 16:40 Acetaminophen 325 Mg Tablet PO Q4H PRN PRN Fever, pain 1-1010 Al Hydroxide/Mg Hydroxide 30 ml 03/31/24 16:40 Mag Hydrox/Al Hydrox/Simeth 30 Ml Udc PO Q6H PRN PRN Gastric Burning Albuterol Sulfate 2.5 mg 03/31/24 16:40 Albuterol 2.5 Mg/3 Ml Vial.Neb. INHALATION Q2H PRN PRN Dyspnea, wheezing Aspirin 81 mg 04/01/24 08:00 04/01/24 08:49 Aspirin 81 Mg Tab.Chew PO 81 mg BREAKFAST NIKUNJ Administration Atorvastatin Calcium 40 mg 03/31/24 22:00 03/31/24 22:04 Atorvastatin Calcium 40 Mg Tablet PO 40 mg QHS NIKUNJ Administration Budesonide 0.5 mg 03/31/24 16:40 Budesonide Respules 0.5 Mg/2 Ml Ampul.Neb. INHALATION BID.RT NIKUNJ Dextrose 0 gm 03/31/24 16:40 Dextrose 50%-Water 25 Gm/50 Ml Disp.Syrin IV X1 PRN HYPOGLYCEMIA Protocol Enoxaparin Sodium 40 mg 04/01/24 10:00 04/01/24 08:50 Enoxaparin 40 Mg/0.4 Ml Syringe SC Not Given DAILY NIKUNJ Folic Acid 2 mg 04/01/24 08:00 04/01/24 08:49 Folic Acid 1 Mg Tablet PO 2 mg BREAKFAST NIKUNJ Administration Glucagon 1 mg 03/31/24 16:40 Glucagon 1 Mg/Ml Syringe IM X1 PRN HYPOGLYCEMIA Guaifenesin 20 ml 03/31/24 16:40 Guaifenesin 10 Ml Udc (200mg/10ml) PO Q4H PRN PRN COUGH Hydralazine HCl 5 mg 03/31/24 16:40 Hydralazine 20 Mg/Ml Vial IV 04/01/24 16:40 Q30M PRN maintain BP parameters with HR <60 Sodium Chloride 250 mls @ 15 mls/hr 03/31/24 16:44 IV .[id number] PRN Additional IVPB Infusion Sodium Chloride 250 mls @ 15 mls/hr 03/31/24 16:44 IV .[id number] PRN Saline Flush Insulin Human Lispro 0 unit 03/31/24 16:40 04/01/24 12:02 Insulin Lispro 100 Unit/Ml Insuln.Pen SC Not Given ACHS NIKUNJ Protocol Melatonin 3 mg 03/31/24 16:40 Melatonin 3 Mg Tablet PO QHS PRN PRN INSOMNIA Ondansetron HCl 4 mg 03/31/24 16:40 Ondansetron 4 Mg/2 Ml Vial IV Q8H PRN PRN NAUSEA/VOMITING Prochlorperazine Edisylate 5 mg 03/31/24 16:40 Prochlorperazine 10 Mg/2 Ml Vial IV Q4H PRN PRN Breakthrough Nausea/Vomiting Senna/Docusate Sodium 2 tablet 03/31/24 16:40 Senna/Docusate Sodium 1 Tablet PO BID PRN PRN Constipation Sodium Chloride 10 - 40 ml 03/31/24 16:44 0.9% Saline Lock 10 Ml Syringe IV UD PRN SALINE FLUSH Tramadol HCl 50 mg 03/31/24 16:40 Tramadol 50 Mg Tablet PO TID PRN PRN SEVERE HIP PAIN
--- NOTE | 2024-04-01 14:24 | CASEMGMT ---
SW went to patient's room to complete a PHQ 9 as he may have had a TIA. Patient was sleeping and did not wake up when SW called his name. FABIEN will check back as able. Ronel TRENT
--- NOTE | 2024-04-01 15:30 | EX.PCM.CON.S ---
Assessment & Plan Assessment/Plan (1) Carotid stenosis, left: PLAN: Plan His pattern of symptoms does not suggest that these episodes would be secondary to his severe L ICA stenosis; however, carotid duplex does suggest stenosis >70% so still may warrant intervention on an outpatient basis even if it is asymptomatic. Would like to obtain a Neck CTA to correlate the duplex results and for potential surgical planning. This further workup may be completed as an outpatient. He will continue with ASA, statin, and now Plavix x 21 days per neurology recommendations. No further medication changes indicated. Will ensure that he has outpatient follow-up scheduled with our office. HPI Consult Data Date of Consult: 04/01/24 HPI Narrative HPI Narrative: YARI NAVA, is a 68 M who presented to the [facility] ER yesterday with concern for stroke/TIA. Yesterday, he presented to the ER following a short episode of blurry possibly double vision in his R eye and paresthesias in the L side of his tongue and L side of his lips. These symptoms lasted about 5 minutes before resolving fully. He denies any associated motor weakness, facial drooping, dysarthria, or total vision loss consistent with amaurosis fugax. He also reports an episode about 2 months ago where he was at work and suddenly became confused as to how to access his computer, felt dizzy, and had R eye vision changes like looking through a shower curtain. This episode lasted about 30 minutes before fully resolving. He also reports a few other episodes of varied visual changes which have occurred bilaterally. He denies any associated headaches. He has not been evaluated by ophthalmology. He has not had any other known CVA/TIA. This admission, he had a Head CTA but did not include Neck CTA. Head CTA suggested significant stenosis of the L cavernous internal carotid artery. Brain MRI was negative for any acute CVA. He'd had a carotid duplex as an outpatient which showed >70% stenosis L ICA and <50% stenosis R ICA. He is already taking ASA and statin. Neurology recommended initiation of Plavix 75 mg daily x 21 days and Holter monitor as an outpatient. [facility] Medical History (Updated 03/31/24 @ 16:51 by Patricia Arreola) Depression Chronic pain Smoker BiPAP (biphasic positive airway pressure) dependence MISTY on CPAP Obesity Rheumatoid arthritis Arthritis Diabetes Thoracic aortic aneurysm without rupture Pure hypercholesterolemia Essential hypertension IBS (irritable bowel syndrome) Atherosclerotic heart disease of [place] coronary artery without angina pectoris Tobacco abuse Home Medications ?Medication ?Instructions ?Recorded ?Last Taken ?Type cholecalciferol (vitamin D3) 25 2,000 unit PO DAILY SUPPLEMENT 03/24/20 03/31/24 History mcg (1,000 unit) tablet aspirin 81 mg chewable tablet 81 mg PO DAILY@0800 [facility] 04/07/20 03/31/24 History albuterol sulfate 90 mcg/actuation 2 puff inhalation Q6H PRN WHEEZING 11/21/20 Unknown History aerosol inhaler (Ventolin HFA) coenzyme Q10 100 mg capsule (Co 100 mg PO DAILY SUPPLEMENT 07/05/21 03/31/24 History Q-10) fluticasone fur. 200 mcg-umeclid 1 inh inhalation DAILY SHORTNESS 01/15/22 Unknown History 62.5 mcg-vilant 25 mcg OF BREATH/WHEEZING inhalat.powder (Trelegy Ellipta) fluticasone propionate 50 1 spray intranasal Q12H PRN NASAL 01/17/23 Unknown History mcg/actuation nasal CONGESTION spray,suspension (Flonase Allergy Relief) nitroglycerin 0.4 mg sublingual 0.4 mg sublingual Q5-15M PRN CHEST 01/17/23 Unknown Rx tablet PAIN #25 tabs atorvastatin 40 mg tablet 40 mg PO QHS CHOLESTEROL #90 tabs 04/29/23 03/30/24 Rx losartan 25 mg tablet 12.5 mg (1/2 x 25 mg) PO DAILY 10/28/23 03/31/24 Rx BLOOD PRESSURE #45 tabs methotrexate sodium 2.5 mg tablet 20 mg PO SA 01/23/24 03/28/24 History tramadol 50 mg tablet 50 mg PO TID PRN SEVERE HIP PAIN 01/23/24 Unknown History metoprolol tartrate 50 mg tablet 50 mg PO BID BLOOD PRESSURE #180 02/11/24 03/31/24 Rx tabs folic acid 1 mg tablet 2 mg PO DAILY SUPPLEMENT 03/31/24 03/31/24 History leucovorin calcium 15 mg tablet 15 mg PO FELIZ 03/31/24 03/15/24 History metformin 500 mg tablet,extended 500 mg PO DAILY BLOOD SUGARS 03/31/24 03/31/24 History release 24 hr multivitamin with minerals-folic 0.5 tab PO DAILY HEALTH MAINTENANCE 03/31/24 03/31/24 History acid 80 mcg chewable tablet (Centrum Adult 50 Plus) Allergy/AdvReac Type Severity Reaction Status Date / Time Penicillins Allergy Swelling Verified 03/31/24 12:56 Family History Father Heart disease CAD (coronary artery disease) Hypertension Mother Heart disease CAD (coronary artery disease) Hypertension Surgical History Status post aortic dissection repair (~08/17/22) History of coronary artery bypass surgery (~03/08/20) History of left heart catheterization (12/31/19) History of foot surgery History of hernia repair Social History (Updated 03/31/24 @ 15:[address] lEizabeth Lawson MD) household members: spouse Smoking Status: Current every day smoker tobacco type: cigarettes Smoking packs per day: 1 Smoking cigarettes per day: 20.0 alcohol intake: current alcohol intake frequency: a few times a week details: Currently reports 1-2 beers/week, prior had been heavier. substance use type: does not use Physical Exam Const alert, oriented x3 and no apparent distress HEENT normocephalic, head/scalp atraumatic, TM's normal bilaterally and external nose normal Head and Scalp: normal to inspection Eyes EOMs intact bilaterally General Eye: normal appearance of both eyes Neck General: normal visual inspection Resp normal respiratory effort Effort and Inspection: able to speak in complete sentences Cardio Rate: regular rate Rhythm: regular rhythm Extremity normal to inspection Skin no rashes or lesions noted Neuro CN's II-XII intact bilaterally Speech: speech normal Psych mental status grossly normal Lab / Micro Data 04/01/24 06:55 04/01/24 06:55 Labs: Laboratory Results - last 24 hr 03/31/24 18:40: POC Glucose 108 H 03/31/24 22:06: POC Glucose 118 H 04/01/24 06:32: POC Glucose 82 04/01/24 06:55: WBC 8.5, RBC 3.97 L, Hgb 13.0, Hct 39.4 L, MCV 99.2 H, MCH 32.7 H, MCHC 33.0, RDW Std Deviation 54.3 H, RDW Coeff of Marlene 15.1 H, Plt Count TNP, MPV 10.7, Immature Gran % (Auto) 0.500, Neut % (Auto) 63.1, Lymph % (Auto) 23.4, [place] % (Auto) 5.0, Eos % (Auto) 6.8 H, Baso % (Auto) 1.2 H, Absolute Neuts (auto) 5.4, Absolute Lymphs (auto) 2.00, Nucleated RBC % 0, Platelet Estimate ADEQUATE, Sodium 138, Potassium 4.2, Chloride 111 H, Carbon Dioxide 22.0, Anion Gap 5, BUN 11, Creatinine 0.86, Estim Creat Clear Calc 101.86, Est GFR (MDRD) Af Amer 114, Est GFR (MDRD) Non-Af 94, BUN/Creatinine Ratio 12.8, Glucose 87, Hemoglobin A1c 5.6, Calcium 9.0, Total Bilirubin 0.60, AST 29, ALT 34, Alkaline Phosphatase 98, Total Protein 6.7, Albumin 3.3, Globulin 3.4, Albumin/Globulin Ratio 1.0, Triglycerides 170, Cholesterol 122, LDL Cholesterol 49, VLDL Cholesterol 34, HDL Cholesterol 39 L, Vitamin B12 413, Folate 17.30, TSH 2.39 04/01/24 08:11: POC Glucose 101 04/01/24 11:19: POC Glucose 107 H Imaging Radiology Impression Brain MRI 03/31/24 16:40 IMPRESSION: No intracranial hemorrhage, acute infarct, or space occupying lesion seen on this noncontrast MRI of the brain. Electronically Signed: Donald Ramirez MD at 18:50 EDT , Head CTA 03/31/24 16:40 IMPRESSION: 1. Calcified plaque at both cavernous internal carotid arteries with a severe (80%) stenosis on the left. 2. Otherwise no intracranial stenosis, occlusion, or aneurysm. Electronically Signed: Hardeep Kauffman MD at 20:03 EDT ,
--- NOTE | 2024-04-01 15:31 | CASEMGMT ---
Met with patient and his to complete RATLIFF form. RATLIFF form explained to patient who voiced understanding and signed form. Original form placed in pt?s chart and copy provided to?patient. Leonila Martel, Discharge Planning Asst
--- NOTE | 2024-04-01 15:41 | CT_ITS ---
INDICATION: TIA -- only head CTA done on admission yesterday EXAMINATION: CT BRAIN WITH CONTRAST TECHNIQUE: Noncontrast axial images were obtained of the brain. Subsequently, routine carotid CT angiogram protocol was performed without and with IV contrast. In addition, images were obtained of the [place]. NASCET criteria using the distal ICAs for comparison were used for evaluation of stenoses. 3D reconstructions were reviewed. A radiation dose optimization technique was used for this scan. IV Contrast dosage and agent: 100 cc [id number] COMPARISON: Noncontrast head CT 03/31/2024, CTA brain 03/31/2024 FINDINGS: --CT BRAIN: BRAIN PARENCHYMA: No intra- or extra-axial hemorrhage. No evidence of acute infarct. No intracranial mass or mass effect. There is preservation of the aguilar/white matter interface. Posterior fossa structures are unremarkable. CSF SPACES: Appropriate for age. No hydrocephalus. Basal cisterns are patent. CALVARIUM, SKULL BASE, PARANASAL SINUSES AND MASTOID AIR CELLS: Stable paranasal sinus disease.. No discrete lytic or blastic abnormalities. --CTA NECK: AORTIC ARCH AND BRANCHES: Vessel origins patent. RIGHT CCA: No occlusion, significant stenosis or dissection. RIGHT ICA: No occlusion, significant stenosis or dissection. LEFT CCA: No occlusion, significant stenosis or dissection. LEFT ICA: 80% stenosis near the origin, no occlusion. RIGHT VERTEBRAL ARTERY: No occlusion, significant stenosis or dissection. LEFT VERTEBRAL ARTERY: No occlusion, significant stenosis or dissection. NECK SOFT TISSUES: 16 mm nodule right lobe thyroid. --CTA HEAD: --Anterior circulation: ICAs: Extensive atherosclerotic plaque in the bilateral cavernous ICAs. High-grade stenosis in the left cavernous ICA again demonstrated, approximately 75%. ACAs: No significant stenosis at the visualized segments. ACOM: Not seen. MCAs: No significant stenosis at the visualized segments. --Posterior circulation: PCOMs: Not seen. wound care physician: No significant stenosis at the visualized segments. BASILAR ARTERY: No significant stenosis. VERTEBRAL ARTERIES: No significant stenosis at the intradural/visualized segments. No evidence of intracranial aneurysm or vascular malformation. CT/CTA Head AND Neck W/ Contrast IMPRESSION: No acute intracranial findings. 80% stenosis left ICA near its origin. High-grade stenosis in the left cavernous ICA, approximately 75%. Electronically Signed: Donald Ramirez MD at 17:43 EDT ,
[2024-04-01 16:20] VITALS: BMI 29.7
--- NOTE | 2024-04-01 17:34 | PCM.DC.SUM ---
Providers Date of Admission: 03/31/24 Date of Discharge: 04/01/24 Primary Care Physician: Dr. Gianfranco West MD Consultations 03/31/24 16:40 Consult: Tele-Neurology Routine Consulting Provider: [facility] Reason for Consult: Acute Ischemic Stroke/TIA EMERGENT Consult: No Notified: Yes Date Notified: 03/31/24 Time Notified: 17:00 Method of Notification: Answering Service Nursing Unit Staff Notify [facility] of Tele-Neurology Consult: Yes 04/01/24 14:38 Consult: Vascular Surgery Routine Consulting Provider: David Huynh Reason for Consult: left carotid stenosis EMERGENT Consult: No Notified: Yes Date Notified: 04/01/24 Time Notified: 14:39 Method of Notification: Text Reason For Visit: TIA Diagnosis Discharge Diagnosis (1) Carotid stenosis, left: Status: Acute Code(s): I65.22 - Occlusion and stenosis of left carotid artery Medications at Discharge Home Medications cholecalciferol (vitamin D3) 25 mcg (1,000 unit) tablet 2,000 unit PO DAILY SUPPLEMENT 03/24/20 aspirin 81 mg chewable tablet 81 mg PO DAILY@0800 [facility] 04/07/20 albuterol sulfate 90 mcg/actuation aerosol inhaler (Ventolin HFA) 2 puff inhalation Q6H PRN WHEEZING 11/21/20 coenzyme Q10 100 mg capsule (Co Q-10) 100 mg PO DAILY SUPPLEMENT 07/05/21 fluticasone fur. 200 mcg-umeclid 62.5 mcg-vilant 25 mcg inhalat.powder (Trelegy Ellipta) 1 inh inhalation DAILY SHORTNESS OF BREATH/WHEEZING 01/15/22 fluticasone propionate 50 mcg/actuation nasal spray,suspension (Flonase Allergy Relief) 1 spray intranasal Q12H PRN NASAL CONGESTION 01/17/23 nitroglycerin 0.4 mg sublingual tablet 0.4 mg sublingual Q5-15M PRN CHEST PAIN #25 tabs 01/17/23 losartan 25 mg tablet 12.5 mg (1/2 x 25 mg) PO DAILY BLOOD PRESSURE #45 tabs 10/28/23 methotrexate sodium 2.5 mg tablet 20 mg PO SA 01/23/24 tramadol 50 mg tablet 50 mg PO TID PRN SEVERE HIP PAIN 01/23/24 metoprolol tartrate 50 mg tablet 50 mg PO BID BLOOD PRESSURE #180 tabs 02/11/24 folic acid 1 mg tablet 2 mg PO DAILY SUPPLEMENT 03/31/24 leucovorin calcium 15 mg tablet 15 mg PO FELIZ 03/31/24 metformin 500 mg tablet,extended release 24 hr 500 mg PO DAILY BLOOD SUGARS 03/31/24 multivitamin with minerals-folic acid 80 mcg chewable tablet (Centrum Adult 50 Plus) 0.5 tab PO DAILY HEALTH MAINTENANCE 03/31/24 atorvastatin 80 mg tablet 80 mg PO QHS #30 tabs 04/01/24 clopidogrel 75 mg tablet (Plavix) 75 mg PO DAILY #21 tabs 04/01/24 Hospital Course Operations None Procedures 2-D Echocardiogram Summary of Care Provided Minutes Spent on Discharge: 47 Hospital Course: Patient is a 68-year-old male with past medical history as outlined was admitted through the ED on 03/31/2024 with a complaint of left-sided facial paresthesias and right eye changes. His symptoms started approximately 12:15 PM on the day of admission and subsequently resolved after about 15 minutes. He called his PCP who recommended that patient come into the ED for evaluation. He had had a possible TIA a few months prior and had known left carotid disease for which she was post to follow-up with vascular surgery but had not yet done so. CT of the brain showed no acute intracranial pathology. He was admitted to be managed for TIA. Neurology was consulted. Neurology reviewed patient and recommended that his atorvastatin be increased to 80 mg and patient be initiated on Plavix for 3 weeks. Vascular surgery was also consulted and a CTA of the head and neck was ordered. Vascular surgery was also consulted and recommended patient to follow-up on outpatient basis. MRI of the brain showed no evidence of stroke. Patient was discharged on 04/01/2024 with a prescription for p.o. atorvastatin 80 mg nightly as well as p.o. aspirin 81 mg daily. He was also given a prescription for p.o. Plavix 75 mg daily x 3 weeks. He is to follow-up with his primary care doctor and was referred to neurology for follow-up as well. Patient seen and examined prior to discharge. He had no active complaints and had an uneventful night. Review of systems otherwise negative. Labs and vitals reviewed. Home medication reviewed and reconciled. Patient was not willing to stay for 2D echo to be done and preferred to do it on outpatient basis with 2D echo ordered and results to be sent to his PCP. Physical Exam Const alert, oriented x3, no apparent distress and average body habitus General Appearance: cooperative and comfortable Orientation / Consciousness: awake Exam Limitations: no limitations HEENT normocephalic, head/scalp atraumatic, hearing grossly normal bilaterally and moist oral mucous membranes Mouth: oral and palatal mucosa normal Eyes PERRL, EOMs intact bilaterally and conjunctivae normal Neck no lymphadenopathy, supple and no JVD Resp normal respiratory effort, no retractions, no use of accessory muscles and clear to auscultation bilaterally Cardio regular rate, regular rhythm, S1 normal heart sound, S2 normal heart sound and no murmurs GI normal to inspection, nondistended, normoactive bowel sounds, soft to palpation and non-tender Extremity normal to inspection, full ROM and no clubbing, cyanosis or edema Skin no rashes or lesions noted Neuro oriented x3, CN's II-XII intact bilaterally, moves all extremities, no focal motor deficits and no sensory deficits noted Sensorium / Orientation: awake Motor Exam: strength 5/5 throughout Psych affect normal Weight / BMI Weight Weight: 219 lb 9.286 oz Body Mass Index (BMI) 29.7 ABG / Lab / Microbiology Data 04/01/24 06:55 04/01/24 06:55 Laboratory: Laboratory Results - last 24 hr 03/31/24 18:40: POC Glucose 108 H 03/31/24 22:06: POC Glucose 118 H 04/01/24 06:32: POC Glucose 82 04/01/24 06:55: WBC 8.5, RBC 3.97 L, Hgb 13.0, Hct 39.4 L, MCV 99.2 H, MCH 32.7 H, MCHC 33.0, RDW Std Deviation 54.3 H, RDW Coeff of Marlene 15.1 H, Plt Count TNP, MPV 10.7, Immature Gran % (Auto) 0.500, Neut % (Auto) 63.1, Lymph % (Auto) 23.4, Mayes % (Auto) 5.0, Eos % (Auto) 6.8 H, Baso % (Auto) 1.2 H, Absolute Neuts (auto) 5.4, Absolute Lymphs (auto) 2.00, Nucleated RBC % 0, Platelet Estimate ADEQUATE, Sodium 138, Potassium 4.2, Chloride 111 H, Carbon Dioxide 22.0, Anion Gap 5, BUN 11, Creatinine 0.86, Estim Creat Clear Calc 101.86, Est GFR (MDRD) Af Amer 114, Est GFR (MDRD) Non-Af 94, BUN/Creatinine Ratio 12.8, Glucose 87, Hemoglobin A1c 5.6, Calcium 9.0, Total Bilirubin 0.60, AST 29, ALT 34, Alkaline Phosphatase 98, Total Protein 6.7, Albumin 3.3, Globulin 3.4, Albumin/Globulin Ratio 1.0, Triglycerides 170, Cholesterol 122, LDL Cholesterol 49, VLDL Cholesterol 34, HDL Cholesterol 39 L, Vitamin B12 413, Folate 17.30, TSH 2.39 04/01/24 08:11: POC Glucose 101 04/01/24 11:19: POC Glucose 107 H Radiography Diagnostic Testing: Radiology Impression Brain MRI 03/31/24 16:40 IMPRESSION: No intracranial hemorrhage, acute infarct, or space occupying lesion seen on this noncontrast MRI of the brain. Electronically Signed: Donald Ramirez MD at 18:50 EDT , Head CTA 03/31/24 16:40 IMPRESSION: 1. Calcified plaque at both cavernous internal carotid arteries with a severe (80%) stenosis on the left. 2. Otherwise no intracranial stenosis, occlusion, or aneurysm. Electronically Signed: Hardeep Kauffman MD at 20:03 EDT , D/C Instructions Discharge Diet: Low fat / Low cholesterol Discharge Activity: Return to Normal Activity Weight Bearing Status: Weight bearing as tolerated Call your doctor if you observe: Fever of 101 or Higher, Shortness of breath, Dizziness, Swelling in the ankles, Chest pain and Increased palpitations (irregular heartbeat) Meaningful Use Info Meaningful Use Meaningful Use Diagnoses (Choose all that apply): None applicable Ischemic Stroke Statin Dosing Therapy Reference: STATIN DOSE THERAPY REFERENCE: * Patients > 75 years receive moderate or high dose statin therapy. * Patients 75 years or YOUNGER should receive HIGH intensity statin dose unless contraindicated. You will be required to document reason for non-treatment if statin daily dose does not meet guidelines. HIGH DOSE STATIN THERAPY DAILY Atorvastatin > than or = to 40 mg Rosuvastatin > than or = to 20 mg Amlodipine + Atorvastatin > than or = to 2.5/40 mg Ezetimibe + Simvastatin 10/80 mg Simvastatin 80mg Discharge Plan Admission Admit Date/Time: 03/31/24 14:34 Primary Reason for Your Visit: TIA Attending Provider: Sherri Choi Primary Care Provider: Gianfranco West Consulting Providers: Homero Romo; Kathrin Etienne; Radha Romero; Naomi Ruiz; Mary Hall; Rajiv Loaiza; Yasmine Gloria; Ji Almeida; [place]; Guadalupe Smith; Thom Pederson; Rody Cooper; Celia Long; Aislinn Chanel; Gerald Fairbanks; Samantha Valentino; Nate Perea; Gregoria Lacey; Kevin Herrera; Elizabeth Lawson; David Huynh Instructions Patient Instructions: TIA Dc Discharge Orders/Prescriptions Prescriptions: New atorvastatin 80 mg tablet 80 mg PO QHS Qty: 30 2RF clopidogrel [Plavix] 75 mg tablet 75 mg PO DAILY Qty: 21 0RF Continued albuterol sulfate [Ventolin HFA] 90 mcg/actuation HFA aerosol inhaler 2 puff INHALATION Q6H PRN (Reason: WHEEZING ) coenzyme Q10 [Co Q-10] 100 mg capsule 100 mg PO DAILY Trelegy Ellipta 200-62.5-25 mcg blister with device 1 inh inhalation DAILY fluticasone propionate [Flonase Allergy Relief] 50 mcg/actuation spray,suspension 1 spray intranasal Q12H PRN (Reason: NASAL CONGESTION ) Rx Instructions: administer into each nostril nitroglycerin 0.4 mg tablet, sublingual 0.4 mg SUBLINGUAL Q5-15M PRN (Reason: CHEST PAIN ) Qty: 25 6RF Rx Instructions: until response; do not exceed 3 doses per episode tramadol 50 mg tablet 50 mg PO TID PRN (Reason: SEVERE HIP PAIN ) methotrexate sodium 2.5 mg tablet 20 mg PO SA Patient Comments: pt states that they take 4 tablets by mouth mid day and 4 tablets at supper for a total daily dose of 20mg. cholecalciferol (vitamin D3) 25 mcg (1,000 unit) tablet 2,000 unit PO DAILY aspirin 81 mg tablet,chewable 81 mg PO DAILY@0800 leucovorin calcium 15 mg tablet 15 mg PO FELIZ folic acid 1 mg tablet 2 mg PO DAILY metformin 500 mg tablet extended release 24 hr 500 mg PO DAILY Centrum Adult 50 Plus 80 mcg tablet,chewable 0.5 tab PO DAILY losartan 25 mg tablet 12.5 mg PO DAILY Qty: 45 3RF metoprolol tartrate 50 mg tablet 50 mg PO BID Qty: 180 3RF Discontinued atorvastatin 40 mg tablet 40 mg PO QHS Qty: 90 3RF Other Ambulatory Orders: Echo Complete (Routine) Facility: [facility] - Location: [facility] Ordered By: Dr. Sherri Choi Referrals / Follow Up: David Huynh MD [Med Staff - Active Staff] - Within 2 Weeks Gianfranco West MD [Primary Care Provider] - Within 2 Weeks Fausto Palmer MD [Non-Staff -Ordering Privileges] - Within 1 Month (see to establish care for TIA) Disposition Disposition (needs filled in before D/C Order can be placed): Home, Self Care Charges/Coding Visit Charges Inpatient E&M: 66368 Disch Hosp >30min
== END 2024-04-01 17:32 | disposition home or self-care (01) ==
LOC: ED 14:44 → PCU 16:13
PROVIDERS: Admitting Provider Family Medicine; Emergency Provider Emergency Medicine; PCP Family Medicine; Visit Provider Student in an Organized Health Care Education/Training Program
DX: I65.22 Occlusion and stenosis of left carotid artery (principal); M06.9 Rheumatoid arthritis, unspecified; J44.9 Chronic obstructive pulmonary disease, unspecified; E11.9 Type 2 diabetes mellitus without complications; E78.00 Pure hypercholesterolemia, unspecified; Z79.82 Long term (current) use of aspirin; F17.210 Nicotine dependence, cigarettes, uncomplicated; I10 Essential (primary) hypertension; H53.8 Other visual disturbances; I25.10 Atherosclerotic heart disease of native coronary artery without angina pectoris; Z79.51 Long term (current) use of inhaled steroids; R20.2 Paresthesia of skin; Z79.84 Long term (current) use of oral hypoglycemic drugs; Z79.899 Other long term (current) drug therapy; G47.33 Obstructive sleep apnea (adult) (pediatric); E66.9 Obesity, unspecified; Z95.1 Presence of aortocoronary bypass graft; D53.9 Nutritional anemia, unspecified; Z68.29 Body mass index [BMI] 29.0-29.9, adult
CPT/HCPCS: 36415; 70450; 70496; 70498; 70551; 71045; 80048; 80053; 80061; 82607; 82746; 82962; 83036; 83735; 84100; 84443; 84484; 85025; 85610; 85730; 93005; 94762; 96360; 96361; 99221; 99285; 99406; J7030; Q9967; A4216; G0378

== ENCOUNTER 2024-04-27 05:26 | Inpatient (IN) | payer MEDICARE, SELFPAY ==
[2024-04-27] VITALS (34 sets, daily range): BP systolic 109–174; BP diastolic 54–92; PULSE 65–80; RESP 12–20; TEMP 36.3–36.6; O2SAT 90–98; BMI 29.8; BMI 29.7
[2024-04-27] MEDS: Vancomycin HCl 1,500 MG in 0.9% Normal Saline (500mL Bag) 500 ML 250 MG IV (06:27)
[2024-04-27] MEDS: Lactated Ringers 1,000 ML 15 ML IV (06:27)
[2024-04-27 06:59] LABS: Bedside Glucose 121 mg/dL (74-106)
--- NOTE | 2024-04-27 07:22 | HP.PCM_ITS ---
History and Physical Allergies Penicillins Allergy (Verified 04/08/24 13:30) Swelling Medications ?Medication ?Instructions ?Recorded ?Confirmed ?Type cholecalciferol (vitamin D3) 25 2,000 unit PO DAILY SUPPLEMENT 03/24/20 04/08/24 History mcg (1,000 unit) tablet aspirin 81 mg chewable tablet 81 mg PO DAILY@0800 [facility] 04/07/20 04/08/24 History albuterol sulfate 90 mcg/actuation 2 puff inhalation Q6H PRN WHEEZING 11/21/20 04/08/24 History aerosol inhaler (Ventolin HFA) coenzyme Q10 100 mg capsule (Co 100 mg PO DAILY SUPPLEMENT 07/05/21 04/08/24 History Q-10) fluticasone fur. 200 mcg-umeclid 1 inh inhalation DAILY SHORTNESS 01/15/22 04/08/24 History 62.5 mcg-vilant 25 mcg OF BREATH/WHEEZING inhalat.powder (Trelegy Ellipta) fluticasone propionate 50 1 spray intranasal Q12H PRN NASAL 01/17/23 04/08/24 History mcg/actuation nasal CONGESTION spray,suspension (Flonase Allergy Relief) nitroglycerin 0.4 mg sublingual 0.4 mg sublingual Q5-15M PRN CHEST 01/17/23 04/08/24 Rx tablet PAIN #25 tabs losartan 25 mg tablet 12.5 mg (1/2 x 25 mg) PO DAILY 10/28/23 04/08/24 Rx BLOOD PRESSURE #45 tabs methotrexate sodium 2.5 mg tablet 20 mg PO SA 01/23/24 04/08/24 History tramadol 50 mg tablet 50 mg PO TID PRN SEVERE HIP PAIN 01/23/24 04/08/24 History metoprolol tartrate 50 mg tablet 50 mg PO BID BLOOD PRESSURE #180 02/11/24 04/08/24 Rx tabs folic acid 1 mg tablet 2 mg PO DAILY SUPPLEMENT 03/31/24 04/08/24 History leucovorin calcium 15 mg tablet 15 mg PO FELIZ 03/31/24 04/08/24 History metformin 500 mg tablet,extended 500 mg PO DAILY BLOOD SUGARS 03/31/24 04/08/24 History release 24 hr multivitamin with minerals-folic 0.5 tab PO DAILY HEALTH MAINTENANCE 03/31/24 04/08/24 History acid 80 mcg chewable tablet (Centrum Adult 50 Plus) atorvastatin 80 mg tablet 80 mg PO QHS #30 tabs 04/01/24 04/08/24 Rx clopidogrel 75 mg tablet (Plavix) 75 mg PO DAILY #21 tabs 04/01/24 04/08/24 Rx PFSH Medical History Depression Chronic pain Smoker BiPAP (biphasic positive airway pressure) dependence MISTY on CPAP Obesity Rheumatoid arthritis Arthritis Diabetes Thoracic aortic aneurysm without rupture Pure hypercholesterolemia Essential hypertension IBS (irritable bowel syndrome) Atherosclerotic heart disease of [place] coronary artery without angina pectoris Tobacco abuse Surgical History Status post aortic dissection repair (~08/17/22) History of coronary artery bypass surgery (~03/08/20) History of left heart catheterization (12/31/19) History of foot surgery History of hernia repair Family History Father Heart disease CAD (coronary artery disease) HypertensionMother Heart disease CAD (coronary artery disease) Hypertension Social History household members: spouse Smoking Status: Current every day smoker tobacco type: cigarettes alcohol intake: current alcohol intake frequency: a few times a week details: Currently reports 1-2 beers/week, prior had been heavier. substance use type: does not use HPI HPI HPI: YARI NAVA, is a 68 M who presents to the office today for follow-up of his severe L ICA stenosis. He was presented to the hospital 03/28/24 following a short episode of blurry possibly double vision in his R eye and paresthesias in the L side of his tongue and L side of his lips. These symptoms lasted about 5 minutes before resolving fully. He denies any associated motor weakness, facial drooping, dysarthria, or total vision loss consistent with amaurosis fugax. He also reports an episode about 2 months ago where he was at work and suddenly became confused as to how to access his computer, felt dizzy, and had R eye vision changes like looking through a shower curtain. This episode lasted about 30 minutes before fully resolving. He also reports a few other episodes of varied visual changes which have occurred bilaterally. He denies any associated headaches. While admitted, he had Brain MRI which was negative for acute CVA. He did complete a Neck CTA which showed severe L ICA stenosis. He had previously had outpatient carotid duplex which reported >70% stenosis L ICA. No prior history of known CVA/TIA. He has been taking ASA and statin. Plavix was started during this recent hospitalization. No adverse effects to this point. ROS General General: Yes fatigue; No weight change, appetite, colon cancer, breast cancer or weakness HEENT HEENT: No difficulty swallowing, eye injury, eye surgery, swollen glands or hoarseness Endo Endocrine: Yes diabetes mellitus; No thyroid disease, thyroid cancer, Hair loss, heat intolerance or cold intolerance Skin Skin: No rash or changing moles Musc Musculoskeletal: Yes back problems, arthritis, rheumatoid arthritis and gout; No joint pain Cardio Cardiovascular: Yes heart disease and high blood pressure; No murmur, pacemaker, atrial fibrillation, heart attack, heart stent, palpitations, shortness of breat with exertion or chest pain Psych Psychiatric: Yes depression and anxiety; No hearing voices Resp Respiratory: No shortness of breath, Yes sleep apnea, Yes cough, No COPD, Yes asthma, No emphysema and No wheezing Gastro Gastrointestinal: Yes abdominal pain, No nausea or vomiting, Yes diarrhea, Yes constipation, No blood in stool, No acid reflux, No hemorrhoids, No ulcers, No gallbladder problem and No black,tarry stools [place] Hematologic: Yes blood thinners, No blood disorders, No bleeding, No anemia and No blood clots Neuro Neurologic: No system reviewed and no additional complaints, except as documented, No as per HPI, No abnormal gait, No abnormal hearing, No abnormal movements, No abnormal speech, No behavioral changes, No burning sensations, No confusion, No convulsions, Yes disequilibrium, Yes dizziness, No localized weakness, No frequent falls, No headache(s), No lack of coordination, No loss of vision, No memory loss, Yes numbness, No other visual disturbances, No radicular pain, Yes restless legs, No sensory deficit, No syncope, Yes tingling, No tremor(s), No weakness and No other Exam Const General: cooperative, comfortable and no acute distress Orientation: alert, awake and oriented x3 HENMT Head: normal to inspection, normocephalic and atraumatic Ears: hearing grossly normal bilaterally and external ears normal Nose: external nose normal Eyes General: appearance normal, both eyes and all related structures EOM: EOM intact bilaterally Neck Neck: normal visual inspection and trachea midline Resp Effort & Inspection: normal respiratory effort, able to speak in complete sentences, not labored, no respiratory distress, no retractions, no stridor and no use of accessory muscles Auscultation: clear to auscultation bilaterally Cardio Rate: regular rate Rhythm: regular rhythm Pulses: brachial pulses present and radial pulses present Skin General: no rashes or lesions noted Trauma: no lacerations or abrasions Wounds: no wounds Neuro General: gait normal, moves all extremities, no focal motor deficits and CN's II-XI intact bilaterally Speech: speech normal Sensory Exam: no sensory deficits noted Extremities Lower Extremity Edema: None: Bilateral Psych Appearance: grossly normal Mental Status: mental status grossly normal Affect: normal affect Speech and Movement: speech and movement normal Attitude: cooperative Coding Level of Care Code Off vis,new,level 4 Diagnoses Carotid stenosis, left I65.22 Assessment and Plan Assessment and Plan (1) Carotid stenosis, left: Status: Acute Comment: -left carotid endarterectomy
--- NOTE | 2024-04-27 07:30 | PLAQ_PTH ---
PATIENT: YARI NAVA LOC: [facility] U#:[id number] AGE/SX: 68/M ROOM: [place] [id number] RE04/27/[address]: Dr. David Huynh MD : [id number] BED: 1 DIS: 04/28/2024 SPEC #: [id number] RECD: 04/27/24 11:33 STATUS: AREN REThomas #: [id number] ARDEN: 04/27/24 07:[address]: David Huynh DEPT: SURGICAL PATHOLOGY RECD BY: Janice Clark ENTERED: 04/27/24 13:07 SP TYPE: PLAQUE OTHR DR: Dr. Gianfranco West MD Tissues: PLAQUE Procedures: Decalcification bone/plaque Surgery Specimen Level III HEADER OPERATION: Left carotid endartectomy PRE-OP DIAGNOSIS: Carotid stenosis, left TISSUE SUBMITTED: Left carotid plaque MICROSCOPIC DIAGNOSIS Left carotid plaque, endartectomy: Atherosclerotic tissue with moderate to marked calcifications (plaque). Focal chronic inflammation. [facility] 04/30/2024 GROSS DESCRIPTION Received in fixative is one container labeled with the patient's name and designated Left carotid plaque. The specimen consists of a piece of previously opened tubular piece of coto indurated tissue measuring 3.5cm in length and 1.2cm in diameter. The specimen cut with gritty sensation. Low Raw Sugar Cutter sections are submitted in one cassette after decalcification. [facility] 04/27/2024 TC:5 CPT:86046,92308
[2024-04-27] MEDS: Heparin Injection (Vial) 5,000 UNIT/ML VIAL 5000 UNIT (08:21)
[2024-04-27] MEDS: Bupivacaine Mpf 0.5% 30 ML VIAL (09:55)
--- NOTE | 2024-04-27 10:05 | PCM.OPRPT ---
Report of Operation Date of Procedure: 04/27/24 Pre-Operative Diagnosis: left carotid stenosis Post-Operative Diagnosis: same Surgery/Procedure Performed:: left carotid endarterectomy Surgeon: David Huynh Type of Anesthesia: General Drains: 19 Fr LUIS F Estimated Blood Loss (mL): 25 Description of Procedure: HPI: Patient is a 68-year-old male with significant stenosis of the left internal carotid artery identified after transient neurologic symptoms. He presents now for endarterectomy. Description of procedure: Upon obtaining informed consent and verification correct patient procedure site patient taken to the operating room where he was placed under general anesthesia. He was then positioned prepped and draped in you sterile fashion a time was performed. Oblique incision was made over the anterior border cleidomastoid and Bovie electrocautery was dissect down through subcutaneous tissue and self-retaining retractor put in position. The platysma was then divided and dissection carried down to the sternocleidomastoid and retracted laterally exposing the carotid sheath. Sharp dissection used to dissect free the anterior border the jugular vein with the facial vein identified, ligated with silk ties and divided. The jugular vein was retracted laterally exposing the carotid vessels and sharp dissection used to dissect free the proximal common carotid artery with care taken to identify and protect the vagus nerve. A right angle used to place a vessel loop and then dissection was carried distally onto the internal carotid artery beyond the area of palpable and visible plaque. Care was taken to identify and protect the hypoglossal nerve and a right angle used to place a vessel loop in the distal extent of the vessel dissection. Patient was then heparinized allowed circulate for 3 minutes and sharp section used to dissect free the external carotid artery then a right angle used to place a vessel loop. Vessels were then occluded first the internal followed by the common and external and then a longitudinal arteriotomy was created on the common carotid artery with an 11 blade extended with Kaur scissors onto the internal carotid artery. A 12 Angolan Tracy shunt was then first placed distally into the internal carotid artery allowed to backbleed before placing proximally into the common carotid artery. The shunt was interrogated Doppler found a patent yarsani to signal. We then performed her endarterectomy with a freer elevator with a satisfactory endpoint distally on the internal and eversion endarterectomy of the external carotid artery. The lumen was then flushed with heparinized saline clear debris and the distal endpoint tacked with 7-0 Prolene interrupted sutures. A bovine pericardial patch was then secured in position using 6-0 Prolene in a running fashion. Prior to completing the suture line the shunt was removed and the vessels back flushed. After completing the suture line the internal carotid artery was allowed to backbleed and then reoccluded at its origin after which the clamps were released from the external and the common carotid artery allowing 10 heartbeats of antegrade flow to flush into the external before reestablishing antegrade flow into the internal carotid artery. After clamps removed satisfactory hemostasis was noted and the vessels were interrogated with Doppler. The internal carotid artery was patent with low resistance signal in the external carotid arteries patent with appropriate signal. Heparin was then reversed with protamine and the incision inspected hemostasis. Lucinda topical hemostatic was applied and 19 Angolan channel LUIS F was placed via separate stab incision. Incision was then closed with 2-0 Vicryl, 3-0 Vicryl, 4 Monocryl and Dermabond for the skin. At the conclusion the case patient was awake anesthesia moving all extremities to command with cranial nerves intact. He was taken recovery room with anticipated admission to the intensive care unit for hemodynamic and neurologic monitoring.
[2024-04-27 10:30] LABS: ACT Activated Clotting Time 250 sec (74-137)
[2024-04-27 10:30] LABS: ACT Activated Clotting Time 159 sec (74-137)
[2024-04-27 10:30] LABS: ACT Activated Clotting Time 238 sec (74-137)
--- NOTE | 2024-04-27 10:30 | SUR.PHASEI ---
PATIENT ALSO HAS A LUIS F DRAIN. I AM UNABLE TO EDIT HIS INITIAL IMMEDIATE ASSESSMENT. IT IS DRAINING SANGUINEOUS DRAINAGE.
--- NOTE | 2024-04-27 11:08 | SUR.PHASEI ---
THIS NURSE PAGED OVERHEAD TO DR. DE LA TORRE. HE ISN'T HERE SO LC BURR RN PAGED DR. DE LA TORRE. HE SAID TO JUST OBSERVE AT THIS TIME.
[2024-04-27] MEDS: 0.9% Normal Saline (1000mL) 1,000 ML 75 ML IV (12:18)
[2024-04-27] MEDS: hydrALAZINE 20 MG/ML Vial 10 MG IV ×2 (13:07→15:05)
[2024-04-27] MEDS: Enoxaparin 40 MG/0.4 ML Syringe SC (13:08)
[2024-04-27] MEDS: Acetaminophen 500 MG Tablet 1000 MG PO ×2 (13:17→21:07)
[2024-04-27] MEDS: Ipratropium/Albuterol Sulfate 3 ML AMPUL.NEB INHALATION ×2 (13:22→19:50)
[2024-04-27] MEDS: Budesonide Respules 0.5 MG/2 ML AMPUL.NEB. INHALATION (13:22)
[2024-04-27] MEDS: Labetalol (Compound) 20 MG/4 ML SYRINGE 10 MG IV ×2 (14:05→16:13)
[2024-04-27] MEDS: Metoprolol Tartrate 50 MG Tablet PO (21:07)
[2024-04-27] MEDS: Atorvastatin Calcium 80 MG Tablet PO (21:07)
[2024-04-27] MEDS: Nitroglycerin Infusion 250 ML 3 MG CONT INF (22:41)
[2024-04-28] VITALS (23 sets, daily range): BP systolic 121–172; BP diastolic 50–95; PULSE 65–82; RESP 10–16; TEMP 36.6; O2SAT 90–98
[2024-04-28] MEDS: Acetaminophen 500 MG Tablet 1000 MG PO (04:39)
[2024-04-28] MEDS: 0.9% Normal Saline (1000mL) 1,000 ML 75 ML IV (04:40)
[2024-04-28 05:02] LABS: Absolute Lymphocyte Count 0.98 X10^3/uL (0.83-4.51); Absolute Neutrophil Count 12.2 X10^3/uL (2.0-7.7); Basophil# 0.01 X10^3/uL; Basophil% 0.1 % (0-1); Hematocrit 35.9 % (40-54); Hemoglobin 12.2 g/dL (13.0-16.5); Lymphocyte # 0.98 X10^3/ul (0.83-4.51); Lymphocyte % 7.1 % (19-41); Mean Corpuscular Hgb 33.3 pg (27.0-32.0); Mean Corpuscular Volume 98.1 fL (80-94); Monocyte# 0.51 X10^3/uL; Monocyte% 3.7 % (0-10); NRBC Flagged by Analyzer 0 % (0-5); Neutrophil # 12.23 X10^3/uL (2.7-7.7); Neutrophil % 88.8 % (47-70); Platelet Count 337 K/mm3 (150-450); RBC Distribution Width CV 14.8 % (11.6-14.6); RBC Distribution Width SD 53.4 fl (35.1-43.9); Red Blood Count 3.66 M/mm3 (4.6-6.2); White Blood Count 13.8 K/mm3 (4.4-11.0)
[2024-04-28] MEDS: Ipratropium/Albuterol Sulfate 3 ML AMPUL.NEB INHALATION (06:49)
[2024-04-28] MEDS: Budesonide Respules 0.5 MG/2 ML AMPUL.NEB. INHALATION (06:49)
--- NOTE | 2024-04-28 07:54 | PN.SURG_ITS ---
Subjective Subjective Doing well today. No numbness/weakness/vision loss/speech difficulty. Pain controlled/ BP moderately elevated overnight. Objective Data Objective Data A&O x 3, NAD RRR Resp non labored Inc C/D/I, no hematoma CN intact, motor/sensory intact LUIS F serosanguineous Vital Signs: Vital Signs Temp Pulse Resp BP Pulse Ox O2 Del Method O2 Flow Rate 98 F 80 16 133/65 H 96 Room Air 2 04/28/24 04:00 04/28/24 07:00 04/28/24 07:00 04/28/24 07:00 04/28/24 07:00 04/28/24 07:00 04/28/24 04:00 Oxygen Flow Rate (L/min) 2 Oxygen Delivery Method Room Air Weight: 220 lb 0.341 oz Body Mass Index (BMI) 29.7 Intake & Output: Intake and Output for Last 24 Hours 04/26/24 04/27/24 04/28/24 23:59 23:59 23:59 Intake Total 2273.30 / 2274.70 1403.65 / 1403.65 Output Total 2049 / 2049 610 / 610 Balance 223.30 / 224.70 793.65 / 793.65 Lab / Micro Data 04/28/24 04:40 Labs: Laboratory Results - last 24 hr 04/27/24 08:12: Activated Clotting Time 159 H 04/27/24 08:48: Activated Clotting Time 250 H 04/27/24 09:23: Activated Clotting Time 238 H 04/28/24 04:40: WBC 13.8 H, RBC 3.66 L, Hgb 12.2 L, Hct 35.9 L, MCV 98.1 H, MCH 33.3 H, MCHC 34.0, RDW Std Deviation 53.4 H, RDW Coeff of Marlene 14.8 H, Plt Count 337, MPV 10.0, Immature Gran % (Auto) 0.300, Neut % (Auto) 88.8 H, Lymph % (Auto) 7.1 L, [place] % (Auto) 3.7, Eos % (Auto) 0.0, Baso % (Auto) 0.1, Absolute Neuts (auto) 12.2 H, Absolute Lymphs (auto) 0.98, Nucleated RBC % 0 Assessment & Plan Assessment/Plan (1) Carotid stenosis, left: PLAN: -doing well -wean Nitro; will resume home meds this AM -drain removed -DC planning
--- NOTE | 2024-04-28 07:57 | DS.PCM_ITS ---
Providers Date of Admission: 04/27/24 Primary Care Physician: Dr. Gianfranco West MD Reason For Visit: left Carotid Endarterectomy Diagnosis Discharge Diagnosis (1) Carotid stenosis, left: Status: Chronic Code(s): I65.22 - Occlusion and stenosis of left carotid artery Plan: -doing well -wean Nitro; will resume home meds this AM -drain removed -DC planning Medications at Discharge Home Medications cholecalciferol (vitamin D3) 25 mcg (1,000 unit) tablet 2,000 unit PO DAILY SUPPLEMENT 03/24/20 aspirin 81 mg chewable tablet 81 mg PO DAILY@0800 [facility] 04/07/20 albuterol sulfate 90 mcg/actuation aerosol inhaler (Ventolin HFA) 2 puff inhalation Q6H PRN WHEEZING 11/21/20 coenzyme Q10 100 mg capsule (Co Q-10) 100 mg PO DAILY SUPPLEMENT 07/05/21 fluticasone fur. 200 mcg-umeclid 62.5 mcg-vilant 25 mcg inhalat.powder (Trelegy Ellipta) 1 inh inhalation DAILY SHORTNESS OF BREATH/WHEEZING 01/15/22 fluticasone propionate 50 mcg/actuation nasal spray,suspension (Flonase Allergy Relief) 1 spray intranasal Q12H PRN NASAL CONGESTION 01/17/23 nitroglycerin 0.4 mg sublingual tablet 0.4 mg sublingual Q5-15M PRN CHEST PAIN #25 tabs 01/17/23 losartan 25 mg tablet 12.5 mg (1/2 x 25 mg) PO DAILY BLOOD PRESSURE #45 tabs 10/28/23 methotrexate sodium 2.5 mg tablet 20 mg PO SA RA 01/23/24 tramadol 50 mg tablet 50 mg PO TID PRN SEVERE HIP PAIN 01/23/24 metoprolol tartrate 50 mg tablet 50 mg PO BID BLOOD PRESSURE #180 tabs 02/11/24 folic acid 1 mg tablet 2 mg PO DAILY SUPPLEMENT 03/31/24 leucovorin calcium 15 mg tablet 15 mg PO FELIZ RA 03/31/24 metformin 500 mg tablet,extended release 24 hr 500 mg PO DAILY BLOOD SUGARS 03/31/24 multivitamin with minerals-folic acid 80 mcg chewable tablet (Centrum Adult 50 Plus) 0.5 tab PO DAILY HEALTH MAINTENANCE 03/31/24 atorvastatin 80 mg tablet 80 mg PO QHS CHOLESTEROL #90 tabs 04/14/24 clopidogrel 75 mg tablet (Plavix) 75 mg PO DAILY CAD #30 tabs 04/23/24 oxycodone 5 mg tablet 5 mg PO Q8H PRN Pain Score 4-10 3 days #9 tabs 04/28/24 Hospital Course Summary of Care Provided Hospital Course: Mr. Lopez underwent elective left carotid endarterectomy 04/27/2024 which he tolerated well. He was admitted post op to the ICU for hemodynamic and neurologic monitoring. He had elevated BP overnight after surgery and was placed on a nitro drip. This was weaned POD #1, the LUIS F output diminished and was removed, and his diet/activity were advanced. He continued to do well, voiding without difficulty, ambulating, and tolerating diet. On 04/28/2024 he was discharged to home. Physical Exam Const alert, oriented x3, no apparent distress and healthy appearing General Appearance: cooperative; Negative for combative or lethargic Orientation / Consciousness: awake Exam Limitations: no limitations HEENT Head and Scalp: normocephalic and atraumatic Eyes EOMs intact bilaterally General Eye: normal appearance of both eyes Neck full ROM, no lymphadenopathy and thyroid normal General: trachea midline; Negative for lymphadenopathy or tenderness Thyroid: thyroid normal Lymph Lymphatic: Negative for no lymphadenopathy noted Resp normal respiratory effort and no use of accessory muscles Effort and Inspection: Negative for labored, stridor or audible wheezes Cardio regular rate and regular rhythm Back/Spine Cervical Spine: cervical ROM normal Extremity full ROM, normal capillary refill and no clubbing, cyanosis or edema Skin no rashes or lesions noted and no wounds Neuro oriented x3, CN's II-XII intact bilaterally, no focal motor deficits and no sensory deficits noted Psych thought process normal, cooperative, affect normal, speech normal and activity/motor behavior normal Weight / BMI Weight Weight: 220 lb 0.341 oz Body Mass Index (BMI) 29.7 ABG / Lab / Microbiology Data 04/28/24 04:40 Laboratory: Laboratory Results - last 24 hr 04/27/24 08:12: Activated Clotting Time 159 H 04/27/24 08:48: Activated Clotting Time 250 H 04/27/24 09:23: Activated Clotting Time 238 H 04/28/24 04:40: WBC 13.8 H, RBC 3.66 L, Hgb 12.2 L, Hct 35.9 L, MCV 98.1 H, MCH 33.3 H, MCHC 34.0, RDW Std Deviation 53.4 H, RDW Coeff of Marlene 14.8 H, Plt Count 337, MPV 10.0, Immature Gran % (Auto) 0.300, Neut % (Auto) 88.8 H, Lymph % (Auto) 7.1 L, [place] % (Auto) 3.7, Eos % (Auto) 0.0, Baso % (Auto) 0.1, Absolute Neuts (auto) 12.2 H, Absolute Lymphs (auto) 0.98, Nucleated RBC % 0 D/C Instructions Discharge Diet: No restrictions May shower in (days): 1 Lifting Restrictions: Do not lift >20 lbs for 2 weeks Additional Activity Instructions: Do not submerge incision for 2 weeks Call your doctor if your incision/area has: Sudden Increased Bleeding, Increased Pain/ Swelling, Increased Redness and Foul Smelling Discharge Call your doctor if you observe: Fever of 101 or Higher, Numbness or Tingling and - (Severe headache) Remove Dressing in: 2 days Meaningful Use Info Meaningful Use Meaningful Use Diagnoses (Choose all that apply): None applicable Ischemic Stroke Statin Dosing Therapy Reference: STATIN DOSE THERAPY REFERENCE: * Patients > 75 years receive moderate or high dose statin therapy. * Patients 75 years or YOUNGER should receive HIGH intensity statin dose unless contraindicated. You will be required to document reason for non-treatment if statin daily dose does not meet guidelines. HIGH DOSE STATIN THERAPY DAILY Atorvastatin > than or = to 40 mg Rosuvastatin > than or = to 20 mg Amlodipine + Atorvastatin > than or = to 2.5/40 mg Ezetimibe + Simvastatin 10/80 mg Simvastatin 80mg Discharge Plan Admission Admit Date/Time: 04/27/24 05:26 Attending Provider: David Huynh Primary Care Provider: Gianfranco West Discharge Orders/Prescriptions Prescriptions: New oxycodone 5 mg Tablet 5 mg PO Q8H PRN (Reason: Pain Score 4-10) 3 Days Qty: 9 0RF Continued albuterol sulfate [Ventolin HFA] 90 mcg/actuation HFA aerosol inhaler 2 puff INHALATION Q6H PRN (Reason: WHEEZING ) coenzyme Q10 [Co Q-10] 100 mg capsule 100 mg PO DAILY Trelegy Ellipta 200-62.5-25 mcg blister with device 1 inh inhalation DAILY fluticasone propionate [Flonase Allergy Relief] 50 mcg/actuation spray,suspension 1 spray intranasal Q12H PRN (Reason: NASAL CONGESTION ) Rx Instructions: administer into each nostril nitroglycerin 0.4 mg tablet, sublingual 0.4 mg SUBLINGUAL Q5-15M PRN (Reason: CHEST PAIN ) Qty: 25 6RF Rx Instructions: until response; do not exceed 3 doses per episode tramadol 50 mg tablet 50 mg PO TID PRN (Reason: SEVERE HIP PAIN ) methotrexate sodium 2.5 mg tablet 20 mg PO SA Patient Comments: pt states that they take 4 tablets by mouth mid day and 4 tablets at supper for a total daily dose of 20mg. cholecalciferol (vitamin D3) 25 mcg (1,000 unit) tablet 2,000 unit PO DAILY aspirin 81 mg tablet,chewable 81 mg PO DAILY@0800 leucovorin calcium 15 mg tablet 15 mg PO FELIZ folic acid 1 mg tablet 2 mg PO DAILY metformin 500 mg tablet extended release 24 hr 500 mg PO DAILY Centrum Adult 50 Plus 80 mcg tablet,chewable 0.5 tab PO DAILY losartan 25 mg tablet 12.5 mg PO DAILY Qty: 45 3RF metoprolol tartrate 50 mg tablet 50 mg PO BID Qty: 180 3RF atorvastatin 80 mg tablet 80 mg PO QHS Qty: 90 3RF clopidogrel [Plavix] 75 mg tablet 75 mg PO DAILY Qty: 30 1RF Referrals / Follow Up: Gianfranco West MD [Primary Care Provider] - Disposition Disposition (needs filled in before D/C Order can be placed): Home, Self Care
[2024-04-28] MEDS: Cholecalciferol (VIT D3) 25 MCG TABLET (1,000 UNITS) 50 MCG PO (08:11)
[2024-04-28] MEDS: Folic Acid 1 MG Tablet 2 MG PO (08:11)
[2024-04-28] MEDS: Metoprolol Tartrate 50 MG Tablet PO (08:11)
[2024-04-28] MEDS: Enoxaparin 40 MG/0.4 ML Syringe SC (08:11)
[2024-04-28] MEDS: metFORMIN (XR) 500 MG Tablet PO (08:12)
[2024-04-28] MEDS: Losartan Potassium 25 MG Tablet 12.5 MG PO (08:12)
[2024-04-28] MEDS: Aspirin 81 MG TAB.CHEW PO (08:12)
[2024-04-28] MEDS: Multivitamins,Ther W-Minerals Tablet 1 TABLET PO (08:12)
--- NOTE | 2024-04-28 10:16 | CASEMGMT ---
ELIEZER ALBARRAN Assessment Face to Face with patient for initial transition planning/care coordination assessment. RN DEION introduced self and role at [facility], pt voices understanding. Pt is A&Ox4 and is resting comfortably in bed and is calm. Care providers, pharmacy, and demographics verified. Admitting dx: Lt Carotid Endarterectomy LACE Strata: 2 PCP: Gianfranco West Specialists: Lino (Vascular), Julio (Rheumatology) [facility]erred Pharmacy: [facility] Insurance: [employer] [facility] Prescription Benefit: Yes LNOK: Coleen Veronicajoey (W) Living Arrangements: Pt lives with his in a Bungalow style home with 2 steps to enter ADLs/IADLs: Ind Transportation: Self, DME: BGM and supplies to check BS. CPAP at night with no additional O2. Cane. BP Cuff. HHC/SNF: Pt states that he had HHC (SN) after cardiac surgery years ago and cannot recall the agency. Denies SNF Pt?s goal: Home Plan: Home no needs. Pt states that his is in healthcare and that she is able to help care for him at home. Pt denies home-going needs. Pt denies the need for HHC. Pt states that he feels safe going home once he is medically ready. 6-Click is 21. PT eval is pending. CM to follow. Dede Muniz RN, CM
== END 2024-04-28 13:50 | disposition home or self-care (01) | DRG 39 ==
LOC: ACINP 05:35 → ICU 10:18
PROVIDERS: Admitting Provider Surgery Trauma Surgery; PCP Family Medicine; Referring Provider Surgery Trauma Surgery; Visit Provider Surgery Trauma Surgery
PROC: 03CN0ZZ Extirpation of Matter from Left External Carotid Artery, Open Approach (ICD-10-PCS; CPT 35301; principal; 2024-04-27 07:10)
DX: I65.22 Occlusion and stenosis of left carotid artery (principal); E78.00 Pure hypercholesterolemia, unspecified; I10 Essential (primary) hypertension; I25.10 Atherosclerotic heart disease of native coronary artery without angina pectoris; H53.9 Unspecified visual disturbance; F17.200 Nicotine dependence, unspecified, uncomplicated; G89.29 Other chronic pain
CPT/HCPCS: 82962; 85025; 85347; 88304; 88311; 94640; 94668; 97802; 99252; 99406; A4648; J7030; J7040; G0463; J2405; J3490

== ENCOUNTER → 2024-04-30 | Outpatient (CLI) | payer MEDICARE, SELFPAY ==
--- NOTE | 2024-04-30 09:56 | ECHOD_ITS ---
Reason For Study: TIA/CVA Procedure This was a 2D Doppler, Color Flow transthoracic echocardiogram. Exam performed in department. Left Ventricle Normal LV size. Left ventricular systolic function is normal. The left ventricular ejection fraction is 55 %. No regional wall motion abnormalities noted. Right Ventricle Normal RV size. Normal systolic function. Atria Normal left atrium. Normal right atrium. Bubble contrast study negative for right to left interatrial shunt. Mitral Valve Mild focal mitral valve calcification. Tricuspid Valve Normal tricuspid valve. Mild (1+) tricuspid valve insufficiency. Pulmonary artery systolic pressure is 30 mmHg. Aortic Valve Trisinus/trileaflet aortic valve. Mild focal aortic valve calcification. Pulmonic Valve Normal pulmonic valve. Mild (1+) pulmonic valve insufficiency. Great Vessels Aortic root repair. The pulmonary artery is normal size. Normal inferior vena cava. Pericardium/Pleural No pericardial effusion. Medication 22 gauge I.V. with prn adaptor inserted into right arm. Performed a rapid injection of agitated mix of 9 cc saline and 1cc air to assess for atrial septal defect. MMode/2D Measurements & Calculations LVIDd: 3.9 cm IVSd: 2.0 cm LVOT diam: 2.2 cm LVIDs: 2.5 cm LVPWd: 1.4 cm FS: 35.7 % LVOT area: 3.7 cm2 Ao root diam: 3.2 cm LAV(MOD-bp): 48.2 ml LA A4 area: 18.1 cm2 LA dimension: 4.6 cm LAV(MOD-bp) Indexed: 21.8 ml/m2 LAV(MOD-sp2): 49.5 ml LAV(MOD-sp4): 45.6 ml RA A4 area: 16.6 cm2 Time Measurements MV dec time: 0.28 sec Doppler Measurements & Calculations MV E max sina: 70.1 cm/sec Lat Peak E' Sina: 10.0 cm/sec Med Peak E' Sina: 6.6 cm/sec MV A max sina: 65.7 cm/sec E/E' lat: 7.0 E/E' med: 10.6 MV E/A: 1.1 MV V2 max: 86.7 cm/sec MV P1/2t max sina: 87.4 cm/sec Ao V2 max: 116.5 cm/sec MV max P.0 mmHg MV P1/2t: 95.3 msec Ao max P.4 mmHg MV V2 mean: 49.6 cm/sec MV dec slope: 268.4 cm/sec2 Ao V2 mean: 85.0 cm/sec MV mean P.2 mmHg Ao mean P.2 mmHg MV V2 VTI: 23.9 cm MVA(P1/2t): 2.3 cm2 Ao V2 VTI: 24.7 cm MVA(VTI): 3.4 cm2 AV (velocity ratio): 0.91 BECCA(I,D): 3.3 cm2 BECCA(V,D): 3.2 cm2 LV V1 max: 100.4 cm/sec SV(LVOT): 82.0 ml PA V2 max: 106.6 cm/sec LV V1 max P.0 mmHg LV V1 mean P.6 mmHg LV V1 mean: 76.0 cm/sec LV V1 VTI: 22.3 cm PI dec slope: 253.1 cm/sec2 TR max sina: 258.5 cm/sec TR max P.7 mmHg ECHO/Echo Complete Interpretation Summary Normal LV size. Left ventricular systolic function is normal. The left ventricular ejection fraction is 55 %. Aortic root repair. Mild focal aortic valve calcification. Ordering Physician: Saranya Hawkins Referring Physician: Gianfranco West Performed By: Juan Carlos Vazquez and Student
== END | disposition home or self-care (01) ==
LOC: CVS 09:54
PROVIDERS: PCP Family Medicine; Referring Provider Physician Assistant Medical; Visit Provider Physician Assistant Medical
DX: G45.9 Transient cerebral ischemic attack, unspecified (principal); R41.0 Disorientation, unspecified; Z95.1 Presence of aortocoronary bypass graft; Z98.890 Other specified postprocedural states; I10 Essential (primary) hypertension; I25.10 Atherosclerotic heart disease of native coronary artery without angina pectoris
CPT/HCPCS: 93306; A4216

== ENCOUNTER → 2024-05-07 | Outpatient (CLI) | payer MEDICARE, SELFPAY ==
--- NOTE | 2024-05-07 12:53 | RAD_ITS ---
STUDY: X-RAY - RIGHT ANKLE REASON FOR EXAM: Male, 68 years old. PAIN TECHNIQUE: 3 views of the right ankle. COMPARISON: None. FINDINGS: Normal visualized distal tibia and fibula. Normal medial and lateral malleoli. Normal tibiotalar articulation and ankle mortise. There is osseous fragmentation adjacent to the posterior calcaneal tuberosity at the distal insertion of the Achilles tendon. Otherwise, intact visualized talus and calcaneus. The visualized subtalar, talonavicular, calcaneocuboid and tarsal articulations are normal. There is no demonstrated fracture. The soft tissue structures are unremarkable. RAD/Ankle min 3 Views IMPRESSION: Osseous fragmentation adjacent to the posterior calcaneal tuberosity at the distal insertion of the Achilles tendon. Electronically Signed: Bernabe Lacey MD at 11:57 EDT ,
== END | disposition home or self-care (01) ==
LOC: MTRAD 12:52
PROVIDERS: PCP Family Medicine; Referring Provider Family Medicine; Visit Provider Family Medicine
DX: M25.571 Pain in right ankle and joints of right foot (principal)
CPT/HCPCS: 73610

== ENCOUNTER → 2024-05-20 | Outpatient (CLI) | payer MEDICARE, SELFPAY ==
[2024-05-20 10:09] LABS: Absolute Lymphocyte Count 2.08 X10^3/uL (0.83-4.51); Absolute Neutrophil Count 7.6 X10^3/uL (2.0-7.7); Basophil# 0.13 X10^3/uL; Basophil% 1.2 % (0-1); Eosinophil# 0.71 X10^3/uL; Eosinophils% 6.3 % (0-5); Hematocrit 38.6 % (40-54); Hemoglobin 12.9 g/dL (13.0-16.5); Lymphocyte # 2.08 X10^3/ul (0.83-4.51); Lymphocyte % 18.6 % (19-41); Mean Corp Hgb Conc 33.4 g/dL (32-36); Mean Corpuscular Hgb 32.3 pg (27.0-32.0); Mean Corpuscular Volume 96.7 fL (80-94); Mean Platelet Vol. 9.6 fl (6.2-12.0); Monocyte# 0.63 X10^3/uL; Monocyte% 5.6 % (0-10); NRBC Flagged by Analyzer 0 % (0-5); Neutrophil % 67.9 % (47-70); Platelet Count 352 K/mm3 (150-450); RBC Distribution Width CV 14.7 % (11.6-14.6); RBC Distribution Width SD 51.8 fl (35.1-43.9); Red Blood Count 3.99 M/mm3 (4.6-6.2); White Blood Count 11.2 K/mm3 (4.4-11.0)
[2024-05-20 10:16] LABS: AST(SGOT) 14 U/L (15-37); Alanine Aminotransfer ALT/SGPT 34 U/L (16-61); Albumin, Serum 3.7 g/dL (3.2-5.0); Alkaline Phosphatase 137 U/L (45-117); Anion Gap 8 (5-15); BUN 14 mg/dL (7-18); BUN/Creat Ratio 13.2 RATIO (10-20); Calcium,Total 9.4 mg/dL (8.5-10.1); Chloride 106 mmol/L (98-107); Creatinine, Serum 1.06 mg/dL (0.70-1.30); EST Glomerular Filtration Rate 74 mL/min (>60); Est Glom Filt Rate - Afr Amer 89 mL/min (>60); Globulin 3.7 g/dL (2.2-4.2); Glucose 153 mg/dL (74-106); Potassium 3.9 mmol/L (3.5-5.1); Protein, Total 7.4 g/dL (6.4-8.2); Sodium Level 138 mmol/L (136-145)
== END | disposition home or self-care (01) ==
LOC: MTLAB 08:29
PROVIDERS: PCP Family Medicine; Referring Provider Internal Medicine Rheumatology; Visit Provider Internal Medicine Rheumatology
DX: M05.79 Rheumatoid arthritis with rheumatoid factor of multiple sites without organ or systems involvement (principal); K58.2 Mixed irritable bowel syndrome; Z79.899 Other long term (current) drug therapy
CPT/HCPCS: 36415; 80053; 85025

== ENCOUNTER → 2024-08-11 | Outpatient (CLI) | payer MEDICARE, SELFPAY ==
[2024-08-11 17:44] LABS: Absolute Lymphocyte Count 1.95 X10^3/uL (0.83-4.51); Absolute Neutrophil Count 5.5 X10^3/uL (2.0-7.7); Basophil# 0.09 X10^3/uL; Eosinophil# 0.48 X10^3/uL; Eosinophils% 5.6 % (0-5); Hematocrit 38.3 % (40-54); Hemoglobin 12.9 g/dL (13.0-16.5); Lymphocyte # 1.95 X10^3/ul (0.83-4.51); Lymphocyte % 22.6 % (19-41); Mean Corp Hgb Conc 33.7 g/dL (32-36); Mean Corpuscular Hgb 32.5 pg (27.0-32.0); Mean Corpuscular Volume 96.5 fL (80-94); Mean Platelet Vol. 9.8 fl (6.2-12.0); Monocyte# 0.55 X10^3/uL; Monocyte% 6.4 % (0-10); NRBC Flagged by Analyzer 0 % (0-5); Neutrophil # 5.53 X10^3/uL (2.7-7.7); Neutrophil % 64.2 % (47-70); Platelet Count 327 K/mm3 (150-450); RBC Distribution Width CV 15.3 % (11.6-14.6); RBC Distribution Width SD 53.3 fl (35.1-43.9); Red Blood Count 3.97 M/mm3 (4.6-6.2); White Blood Count 8.6 K/mm3 (4.4-11.0)
[2024-08-11 18:27] LABS: ALB/GLOB Ratio 0.9 RATIO (0.9-2.4); AST(SGOT) 21 U/L (15-37); Alanine Aminotransfer ALT/SGPT 34 U/L (16-61); Albumin, Serum 3.6 g/dL (3.2-5.0); Alkaline Phosphatase 114 U/L (45-117); Anion Gap 8 (5-15); BUN 11 mg/dL (7-18); BUN/Creat Ratio 10.9 RATIO (10-20); Calcium,Total 9.3 mg/dL (8.5-10.1); Chloride 106 mmol/L (98-107); Creatinine, Serum 1.01 mg/dL (0.70-1.30); EST Glomerular Filtration Rate 78 mL/min (>60); Est Glom Filt Rate - Afr Amer 94 mL/min (>60); Globulin 3.9 g/dL (2.2-4.2); Glucose 172 mg/dL (74-106); Protein, Total 7.5 g/dL (6.4-8.2); Sodium Level 138 mmol/L (136-145)
== END | disposition home or self-care (01) ==
LOC: MTLAB 14:37
PROVIDERS: PCP Family Medicine; Referring Provider Internal Medicine Rheumatology; Visit Provider Internal Medicine Rheumatology
DX: M05.79 Rheumatoid arthritis with rheumatoid factor of multiple sites without organ or systems involvement (principal); Z79.899 Other long term (current) drug therapy; K58.2 Mixed irritable bowel syndrome
CPT/HCPCS: 36415; 80053; 85025

== ENCOUNTER → 2024-09-10 | Outpatient (CLI) | payer MEDICARE, SELFPAY ==
--- NOTE | 2024-09-10 10:48 | RAD_ITS ---
STUDY: X-RAY - RIGHT KNEE REASON FOR EXAM: Male, 69 years old. PAIN TECHNIQUE: 4 views of the right knee. COMPARISON: Right knee radiographs dated 02/07/2018. FINDINGS: Normal visualized distal femur. Normal visualized proximal tibia and fibula. Normal proximal tibiofibular articulation. There is no demonstrated fracture. There is further progression of degenerative arthrosis of the medial femorotibial compartment, with moderate to severe joint space narrowing, mild marginal osteophyte formation, and foci of subchondral cyst formation on both sides of the joint. There is persistent mild degenerative arthrosis of the lateral femorotibial compartment. There is persistent mild degenerative arthrosis of the patellofemoral articulation. There is a small joint effusion. There are atherosclerotic calcifications. RAD/Knee 4 or More Views IMPRESSION: Progression of the medial femorotibial compartment degenerative arthrosis, now moderate to severe. Stable mild degenerative arthrosis of the patellofemoral and lateral femorotibial compartments. Small joint effusion. No demonstrated fracture. Electronically Signed: Bernabe Lacey MD at 14:41 EDT ,
--- OUTSIDE RECORDS SUMMARY | 2024-09-10 12:24 | XMS RPT_ITS | CCD ---
Author Organization [facility] [place] [facility] Care Team Providers Care Weigher Production Name Role Phone Brandon Clifford MD Unavailable [phone] Gianfranco Wells Unavailable Gianfranco West MD Primary Care Provider John GOLF CART ATTENDANT.Uvaldo CASTILLO Unavailable Miah Hinson MD Unavailable Tiara Cho RN Unavailable Gianfranco Wells Unavailable Gianfranco West MD Primary Care Provider [phone] John GOLF CART ATTENDANT.ELEUTERIO, Uvaldo Unavailable Miah Hinson MD Unavailable Tiara Cho RN Unavailable Gianfranco West MD Primary Care Provider Tiara Cho RN Unavailable GIANFRANCO WEST Primary Care Unavailable LYNNE GRIFFITH Attending Unavailable VALERIEPRALESHA ISBELL Referring Unavailable GIANFRANCO EWST Primary Care Unavailable Allergies Allergy Classification Reported Allergen(s) Allergy Type Date of Onset Reaction(s) Facility (1 source) Penicillin Drug Allergy 11-27-2018 swelling [facility] Work Phone: (9 sources) Penicillins; Translations: [PENICILLINS] Drug Allergy 12-26-2010 Swelling [facility] Medications Current Medications Medication Drug Class(es) Dates [...] days. 28 tablet 0 08/23/2022 08/31/2022 Active Comment on above: Take 1 tablet by ORA L/FEEDING TUBE route every 6 hours as needed for up to 7 days. perflutren lipid microspheres 1.3 mL in NaCl (PF) 0.9% 10 mL injection (DEFINITY) (7 sources) Start: 08-21-2022 End: 11-20-2023 perflutren lipid microspheres 1.3 mL in NaCl (PF) 0.9% 10 mL injection (DEFINITY) 125 ml sodium chloride 9 mg/ml prefilled syringe (7 sources) Start: 08-21-2022 End: 11-20-2023 sodium chloride 0.9 % (flush) 10 mL (BD POSIFLUSH) Completed/Discontinued Medications Medication Drug Class(es) Dates Sig (Normalized) Sig (Original) acetaminophen 500 mg oral tablet (8 sources) Start: 08-23-2022 take 2 tablets by mouth every six hours as needed acetaminophen (TYLENOL) 500 mg tablet Take 2 tablets by mouth every 6 hours as needed for pain. No more than 4000 mg total for a 24 hours window. Thanks. 0 08/23/2022 Active Start: 03-14-2020 acetaminophen (TYLENOL) 500 mg tablet [The details of the medication are not available because there are pending changes by a home health clinician.] 0 03/14/2020 Suspended Comment on above: [The details of the medication are not available because there are pending changes by a home health clinician.] Take 2 tablets by [facility] every 6 hours as needed for pain. No more than 4000 mg total for a 24 hours window. Thanks. [id number] 200 actuat albuterol 0.09 mg/actuat metered dose inhaler (8 sources) beta2-Adrenergic Agonist Start: 0 take 2 puff(s) by inhalation every six hours as needed albuterol HFA (PROAIR HFA) 90 mcg/actuation inhaler 2 Puffs every 6 hours as needed. Take as directed 1 Inhaler 0 03/14/2020 Active Start: 03-14-2020 albuterol HFA (PROAIR HFA) 90 mcg/actuation inhaler [The details of the medication are not available because there are pending changes by a home health clinician.] 1 Inhaler 0 03/14/2020 Suspended Comment on above: [The details of the medication are not available because there are pending changes by a home health clinician.] 2 Puffs every 6 hour s as needed. Take as directed aluminum hydroxide 40 mg/ml / magnesium hydroxide 40 mg/ml / simethicone 4 mg/ml oral suspension (6 sources) Start: 2 aluminum-magnesium hydroxide-simethico ne (MAALOX,MYLANTA,MAG -AL PLUS) 200-200-20 mg/5 mL suspension Take 30 mL by mouth as needed (Second Line Therapy). 0 08/23/2022 Active Comment on above: Take 30 mL by mouth as needed (Second Line Therapy). aspirin 81 mg delayed release oral tablet (9 sources) Platelet Aggregation Inhibitor, Nonsteroidal Anti-inflammatory Drug Start: 0 take 1 tablet by mouth once daily aspirin, enteric coated (ECOTRIN LOW STRENGTH) 81 mg EC tablet Take 1 tablet by mouth once daily. 0 04/18/2020 Active Start: 11-27-2018 ASPIRIN 325 MG TABS 2 tablets daily ASPIRIN [id number] Brandon Clifford MD Comment on above: Take 1 tablet by isabel th once daily. atorvastatin 40 mg oral tablet (6 sources) HMG-CoA Reductase Inhibitor Start: take 1 tablet by mouth once daily at bedtime atorvastatin (LIPITOR) 40 mg tablet Take 1 tablet by mouth daily at bedtime. 30 tablet 1 08/23/2022 Active Comment on above: Take 1 tablet by isabel th daily at bedtime. Blood-Glucose Meter (ONETOUCH VERIO FLEX) (1 source) Start: 020 End: 022 Blood-Glucose Meter (ONETOUCH VERIO FLEX) 1 Box as directed. Check BS 3 times aday1 1 Each 0 03/14/2020 08/16/2022 Discontinued (Erroneous entry) Comment on above: 1 Box as directed. C heck BS 3 times aday1 cholecalciferol 0.05 mg oral capsule (8 sources) Vitamin D take 1 capsule by mouth once daily Cholecalciferol, Vitamin D3, 50 mcg (2,000 unit) cap Take 2,000 Units by mouth once daily. 0 Active Comment on above: Take 2,000 Units by mouth once daily. docusate sodium 250 mg oral capsule (6 sources) End: take 1 capsule by mouth once daily Docusate Sodium 250 mg capsule Take 250 mg by mouth once daily. 0 08/30/2022 Discontinued Comment on above: Take 250 mg by mouth once daily. glimepiride 1 mg oral tablet (9 sources) Sulfonylurea Start: End: take 0.5 tablet by mouth once daily at breakfast glimepiride (AMARYL) 1 mg tablet Take 0.5 tablets by mouth daily with breakfast. 15 tablet 2 08/30/2022 Active Comment on above: Take 0.5 tablets by mouth daily with breakfast. 12 hr guaiFENesin 600 mg extended release oral tablet (6 sources) Start: take 1 tablet by mouth every twelve hours as needed for cough guaiFENesin (MUCINEX) 600 mg 12 hr tablet Take 1 tablet by mouth every 12 hours as needed (cough). 0 08/23/2022 Active Comment on above: Take 1 tablet by isabel th every 12 hours as needed (cough). ibuprofen 200 mg oral tablet (1 source) Nonsteroidal Anti-inflammatory Drug Start: IBUPROFEN 200 MG TABS 2 tablets daily IBUPROFEN [id number] Brandon Clifford MD lidocaine 0.04 mg/mg medicated patch (6 sources) Antiarrhythmic, Amide Local Anesthetic Start: apply 1 dose transdermal route once daily lidocaine (SALONPAS) 4 % patch Apply 1 Patch as directed once daily. 0 08/24/2022 Active Comment on above: Apply 1 Patch as dir ected once daily. losartan potassium 25 mg oral tablet (9 sources) Angiotensin 2 Receptor Gideon Start: take 0.5 tablet by mouth once daily at lunch losartan (COZAAR) 25 mg tablet Take a half tablet by mouth daily with lunch. 30 tablet 1 08/23/2022 Active Start: 03-21-2020 take 1 tablet by isabel th once daily losartan (COZAAR) 50 mg tablet Take 1 tablet by mouth once daily. 90 tablet 3 03/21/2020 Suspended Start: 11-27-2018 LOSARTAN POTAS SIUM 50 MG TABS 1 tablet daily LOSARTAN POTASSIUM [id number] Brandon Clifford MD Comment on above: Take 1 tablet by isabel once daily. Take a half tablet b y mouth daily with lunch. magnesium hydroxide 80 mg/ml oral suspension (6 sources) Start: 08-23-20 take 30 mL by mouth once daily as needed magnesium hydroxide (MOM) 400 mg/5 mL suspension Take 30 mL by mouth once daily as needed. 0 08/23/2022 Active Comment on above: Take 30 mL by mouth once daily as needed. melatonin 1 mg oral tablet (4 sources) Start: 08-23-20 End: 08-30-20 take 3 tablets by mouth every twenty-four hours as needed melatonin 1 mg tablet Take 3 tablets by mouth at bedtime as needed for for insomnia. 0 08/23/2022 08/30/2022 Discontinued Comment on above: Take 3 tablets by [facility] at bedtime as needed for for insomnia. 24 hr metFORMIN hydrochloride 500 mg extended release oral tablet (8 sources) Biguanide Start: 04-18-20 take 1 tablet by mouth once daily at breakfast metFORMIN ER (GLUCOPHAGE XR) 500 mg 24 hr tablet Take 1 tablet by mouth daily with breakfast. 30 tablet 0 04/18/2020 Active Comment on above: [facility] with [facility]. metoprolol tartrate 50 mg oral tablet (8 sources) beta-Adrenergic Gideon Start: 08-24-20 take 1 tablet by mouth twice daily metoprolol tartrate, short acting, (LOPRESSOR) 50 mg tablet Take 1 tablet by mouth twice daily. 0 08/24/2022 Active Start: 03-21-2020 take 1 tablet [facility] twice daily metoprolol tartrate, short acting, (LOPRESSOR) 50 mg tablet Take 1 tablet by mouth twice daily. 0 03/21/2020 Suspended Comment on above: Take 1 tablet by [facility] twice daily. pantoprazole 20 mg delayed release oral tablet (6 sources) Proton Pump Inhibitor Start: 2 End: 2 take 1 tablet by mouth once daily, then take 6 tablets by mouth in the morning pantoprazole DR (PROTONIX) 20 mg tablet Take 1 tablet by mouth DAILY (6 AM) for 7 days. 7 tablet 0 08/24/2022 Active Comment on above: Take 1 tablet by isabel th DAILY (6 AM) for 7 days. polyethylene glycol 3350 82891 mg powder for oral solution (6 sources) Osmotic Laxative Start: 2 take 17 g by mouth every twelve hours as needed polyethylene glycol 3350 (MIRALAX, GLYCOLAX) 17 gram packet Take 1 Packet by mouth twice daily as needed for constipation. Dissolve dose in 4 - 8 ounces of liquid and take as directed. 0 08/23/2022 Active Comment on above: Take 1 Packet by isabel th twice daily as needed for constipation. Dissolve dose in 4 - 8 ounces of liquid and take as directed. pravastatin sodium 80 mg oral tablet (3 sources) HMG-CoA Reductase Inhibitor Start: 8 take 1 tablet by mouth once daily pravastatin (PRAVACHOL) 80 mg tablet Take 1 tablet by mouth once daily. 90 tablet 3 10/16/2018 Suspended Comment on above: Take 1 tablet by isabel th once daily. ubidecarenone 100 mg oral capsule (8 sources) coenzyme Q10 (COENZYME Q-10) 100 mg cap capsule Take 100 mg by mouth once daily. 0 Active Comment on above: Take 100 mg by mouth once daily. vortioxetine 20 mg oral tablet (3 sources) Start: 2 take 1 tablet by mouth once daily vortioxetine (TRINTELLIX) 20 mg tablet Take 1 tablet by mouth once daily. 0 08/30/2022 Active Comment on above: Take 1 tablet by isabel th once daily. Problems Active Problems Problem Classification Problem Date Documented Da te Episodic/Chronic Aortic; peripheral; and visceral artery aneurysms (11 sources) Dissection of aorta; Translations: [Dissection of unspecified site of aorta] Onset: 08-16-2022 08-16-2022 Chronic Coronary atherosclerosis and other heart disease (16 sources) Coronary arteriosclerosis; Translations: [Atherosclerotic heart disease of [place] coronary artery without angina pectoris] Onset: 12-14-2013 [...] Results Test Name Value Interpretation Reference Range Facility [facility] 10-29-2023 [facility] Office Visit (TOMN ) YARI LOPEZ ([id number]) 1955 M Date Time Provider Department 10/29/23 9:00 AM LYNNE GRIFFITH [facility] During your visit today, we recorded the following information about you: Temperature Pulse Respiration Blood pressure 98.1 degrees 70/minute 14/minute 110/48 Weight Height 97.1 kg 1.803 m Lynne Griffith APRN.[facility] 11/08/2023 10:10 AM Signed FOLLOW-UP Aortic Aneurysm, Aortic Dissection, and Aortic Repair Patient Type: Established REFERRED BY: Alesha Isaac M.D. PCP: Gianfranco West [address] [place] [address] Other Physician: No referring provider defined for this encounter. Patient Mr. Lopez returns, now 12 months following the open repair of his arch and ascending Aortic Dissection. The patient is asymptomatic. 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 Rest of the [place] thoracoabdominal aorta is normal in calibre with no acute aortic pathology. 3. A 20 mm focal cluster of pulmonary nodular opacities is seen in the right upper lobe. Incidental Finding: Follow-up Acuity: Incidental Finding: Part solid: 6 mm or greater Routing Code: RI_1 Recommendation: Consult to [facility] - [id number] Time Frame: at the discretion of the [...] be communicated with the ordering provider via [employer] staff message by [facility] within 2 business days of report finalization. Hand Roller: PSCB Transcribe Date/Time: Oct 29 2023 10:26A Dictated [...] - CTA Chest (Gated) with contrast. Lynne Griffith APRN.COMMUNICATIONS PROJECT MANAGER Allergies As of Date: 10/29/2023 Noted Allergy Reaction PENICILLINS 12/26/2010 7 - Swelling Date Reviewed: 10/29/2023 Reviewed by: Lina Hidalgo Ma - Fully Assessed Reason for Visit: Established Patient [175] Primary Visit Diagnosis:Dissection of ascending aorta (HCC) [I71.010] Other Visit Diagnoses:S/P ascending aortic aneurysm repair [Z98.890, Z86.79] Lung nodule [R91.1] Disorder of artery or arteriole (HCC) [I77.9] Encounter for other preprocedural examination [Z01.818] Order(s):CTA CHEST (GATED) W IVCON [[id number]] Order #: [id number] FUTURE iv contrast (will be provided with radiology test)CTA Chest. No IV access, insert saline lock prior to the sedation, infusion, injection for imaging exam. Discontinue saline lock post exam. If Pt. has a central natasha (more content not included)... Normal [facility] CTA C/A/P (GATED) W IVCONon 10-29-2023 CTA C/A/P (GATED) W IVCON * * *Final Report* * * DATE OF EXAM: Oct 29 2023 8:39AM [facility]QC 0133 - CTA C/A/P (GATED) W IVCON / PROCEDURE REASON: multiple diagnoses * * * * Physician Interpretation * * * * CTA Aorta chest, abdomen, and pelvis Direct Image Comparison: 10/29/2022 HISTORY: 68 years old Male 08/17/2022 -- Mikal Chronic Type A Dissection Redo Median Sternotomy, Type A Aortic Dissection Repair (Ascending and Hemiarch Replacement 30 HEMASHIELD SELDOVIA T Graft with Reimplantation of Proximal RSVG to OM and RSVG to PDA of prior CABG Under [employer]CA, 10 minutes with Retrograde Cerebroplegia + Aortic valve Commissural Suspension ? 03/08/2020 -- Dr Hinson? Coronary artery bypass graft x4 with left internal mammary ?artery to left anterior descending artery, free right internal mammary graft to the ?right diagonal branch, reversed saphenous vein graft to the obtuse marginal branch, ?and right posterolateral branch; with endoscopic vein harvesting. Evaluation for interval change. There is request to define thoracic and aortic anatomy TECHNIQUE: SCANNER: Multi-detector scanner PROTOCOL: Prospectively triggered helical high-pitch acquisitions ( triggered Flash-mode ) was performed following the intravenous administration of contrast material. Scan Range: thoracic inlet through the ischial tuberosities CT Dose-Length Product (DLP): 468 mGy*cm CT Dose Reduction Employed: Automated exposure control(AEC) and iterative recon CONTRAST: IV administration of 80 ml Omnipaque 350 Scan acquisition: uncomplicated For optimization of anatomic evaluation, advanced 3-D off-line postprocessing was performed on a dedicated workstation by the interpreting physician. STUDY LIMITATIONS: None. RESULT: LINES, TUBES and DEVICES: None CHEST: Chest wall anatomy: unremarkable. LUNGS: emphysema with upper lobe predominance. 20 mm nodular opacify is seen in the right upper lobe (series 6, image 130). Again seen are scattered 3 to 4 mm noncalcified lung nodules. MEDIASTINUM: unremarkable. PERICARDIUM: unremarkable CENTRAL PULMONARY ARTERY: normal dimensions, assessment is limited due to limited contrast enhancement CARDIAC CHAMBERS: Unremarkable. LEFT VENTRICLE: normal size RIGHT VENTRICLE: normal size Left atrium: normal size. EDVIN: normal Right atrium: normal size CENTRAL VENOUS and PULMONARY VENOUS RETURN: normal Coronary Sinus: normal size MITRAL and TRICUSPID VALVE: Assessment is limited in the current study No leaflet calcification. No annular calcification PULMONIC VALVE: Assessment is limited in the current study. No leaflet calcification CORONARY ANATOMY: Normal origin of the coronary arteries. Diffuse calcific atherosclerotic changes of the coronary arteries. However, the current study is not optimized for coronary assessment. Small calibre KITCHEN-LAD CABG grft: likely patent Aorto-coronary to LCx CABG graft: patent Aorto-coronary to PDA CABG graft: patent AORTIC VALVE: appears trileaflet. Moderate leaflet calcification AORTA: Size:Ectatic [place] aortic root - with tiny focal intimal flap in the non-coronary sinus (Series 6, Image 175): stable. Supra-coronary graft replacement of ascending thoracic aorta; anastomoses are intact The remaining segments of the thoracic and abdominal aorta are normal in calibre No acute aortic pathology. STJ: surgical anastomosis. Wall Changes: scattered predominantly calcified wall changes. Arch Branch Vessels: unremarkable proximal segments of the aortic branch vessels. Visceral Branch Vessels: normal size proximal segment of the visceral branch vessels and renal arteries. Replaced right hepatic artery arises from the proximal SMA Iliac Arteries: normal size visualized segments of the iliac arteries. Diffuse atherosclerosis noted. AORTIC DIMENSIONS: [place] AORTIC ROOT: 4.6 x 4.0 cm measured ejzzs-hb-zvszc graft mid ASCENDING THORACIC AORTA: 3.3 cm mid AORTIC ARCH: 3.1 cm mid DESCENDING THORACIC AORTA: 2.5 cm JUXTARENAL ABDOMINAL AORTA (level of SMA): 2.6 cm mid INFRARENAL ABDOMINAL AORTA: 2.3 cm ABDOMEN Gallbladder: unremarkable Liver: Sub-cm hypodensity, too small to characterize, is noted in segment 4 Spleen: unremarkable Adrenal glands: unremarkable Pancreas: unremarkable Kidneys: unremarkable Bowel: appears unremarkable within limitations of non-GI contrast examination PELVIS: scattered phleboliths Bladder: unremarkable BONES: degenerative changes of the spine Fundraising Director (topogram) images: No additional findings. IMPRESSION: 1. The patient has undergone prior supracoronary ascending aorta graft and multivessel CABG. There are no findings to suggest anastomotic stenosis, infection, or leak. 2. 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 Rest of the [place] thoracoabdominal aorta is normal in calibre with no acute aortic pathology. (more content not included)... Invalid Interpretation Code [facility] YARI LOPEZ ([id number]) 1955 M Date Time Provider Department 09/20/23 ALESHA ISAAC [facility] During your visit today, we recorded the following information about you: Wes Lei RN 09/20/2023 10:37 AM Signed Called patient to inform him that Dr. Isaac is recommending he come in for a CTA (chest/abdomen/pelvis) and follow up appointment with Lynne QUIGLEY. left detailed message with the plan and to call back with any further questions. Orders placed and sent to - to be scheduled. ELIEZER Soria Jean, RN 09/20/2023 10:49 AM Signed Addended by: WES LEI on: 09/20/2023 10:49 AM Modules accepted: Orders Allergies As of Date: 09/20/2023 Noted Allergy Reaction PENICILLINS 12/26/2010 7 - Swelling Date Reviewed: 10/29/2022 Reviewed by: Tory Verduzco RN - Fully Assessed Reason for Visit: Follow Up [171] Primary Visit Diagnosis:Dissection of ascending aorta (HCC) [I71.010] Other Visit Diagnosis:Encounter for other preprocedural examination [Z01.818] Order(s):CTA CHEST/ABD/PEL (GATED) W IVCON [[id number]] Order #: [id number] FUTURE CREATININE BLD [SQCRET] Order #: [id number] FUTURE Prescriptions as of 09/20/2023 - vortioxetine (TRINTELLIX) 20 mg tablet Take [...] mouth once daily. Facility-Administered Medications as of 09/20/2023 - perflutren lipid microspheres 1.3 mL in NaCl (PF) 0.9% 10 mL injection (DEFINITY) - sodium chloride 0.9 % (flush) 10 mL (BD POSIFLUSH) Problem List As Of Date 09/20/2023 Noted Resolved Coronary arteriosclerosis in [place] artery [I25*12/14/2013 Chest discomfort [R07.89] 12/14/2013 08/16/2022 [...] Encounter for support and coordination of trans*08/20/2022 Encounter Status:Closed by WES LEI on 09/20/23 Normal [facility] CTA CHEST (GATED) W IVCONon 10-29-2022 [facility] ANGIO CHESTon 11-16-2020 ANGIO CHEST BART LOPEZ Male [id number] Ordering physician: Rusty Serrano LOC:ER [id number] Attending physician: [id number] DO S: 11/16/20 Acc#: [id number] Exam/Proc: ANGIO CHEST Dept: COMPUTED TOMOGRAPHY CT PULMONARY ANGIOGRAM WITH IV CONTRAST: with post-processing, volume rendering and 3-D acquisitions. This exam was performed according to our departmental dose optimization program, and includes the following measures where applicable: automated exposure control, adjustment of the mAs and/or kVp according to patient size and/or exam, and an iterative reconstruction algorithm. CLINICAL STATEMENT:chest pain, elevated d dimer. COMPARISON:None. FINDINGS: There is adequate contrast opacification of the pulmonary arterial vasculature. There is no filling defect or vessel cutoff to indicate pulmonary embolus to the level of the segmental arteries. The pulmonary arteries are normal in size. There is no evidence of right heart strain. The thoracic aorta is normal in caliber, and demonstrates no evidence of dissection, or periaortic hematoma. There is mild pericardial thickening, absent pericardial effusion. There is moderate coronary artery calcification, with evidence of prior median sternotomy. 7 mm right paratracheal, subcarinal and prevascular lymphadenopathy is identified. The trachea is normal. Predominant biapical confluent centrilobular emphysematous change with largest left upper lobe 2 cm subpleural bleb, moderate central bronchiectasis and mild bilateral lung base subpleural cicatrization is demonstrated. The lungs are free of acute consolidation. There is no pneumothorax or pleural fluid. There is no acute fracture or aggressive osseous lesion. Mild multilevel dorsal spine disc degenerative changes noted Subcentimeter right hepatic hypodensity is too small to characterize. Limited images of the upper abdomen are otherwise noncontributory. IMPRESSION: COPD and central bronchiectasis, absent pulmonary consolidation. No pulmonary emboli to the level of the segmental arteries. Separate chronic and post surgical findings as described. Electronically signed by: Dalton Smiley MD 11/16/2020 10:58 AM SPRING TESTER REPORT SIGNATURE ON FILE Electronically Signed Date/Time: 11/16/20 105 Dictated Date/time: 11/16/201057 CC: Normal [facility] CBC with AUTO DIFFon 020 BAS0 % 1.10 % Normal 0-2 [facility] Comment on above: Performed By: #### C BC #### [address] [address] Basophils (Bld) [#/Vol] 0.1 10*3/uL Normal 0-0.1 [facility] Comment on above: Performed By: #### C BC #### [address] [address] Eosinophils (Bld) [#/Vol] 0.2 10*3/uL Normal 0.0-1.80 [facility] Comment on above: Performed By: #### C BC #### [facility] [address] [place] [address] Eosinophils/100 WBC (Bld) 1.5 % Normal 0-8 [facility] Comment on above: Performed By: #### C BC #### [address] [address] GRAN # 8.4 K/uL Normal 2.2-9.1 [facility] Comment on above: Performed By: #### C BC #### [facility] [address] [place] [address] GRAN % 75.6 % Normal 42-80 [facility] Comment on above: Performed By: #### C BC #### [facility] [address] [place] [address] Hematocrit (Bld) [Volume fraction] 38.3 % Low 41.0-53.0 [facility] Comment on above: Performed By: #### C BC #### [facility] [address] [place] [address] Hemoglobin (Bld) [Mass/Vol] 13.2 g/dL Low 14.0-18.0 [facility] Comment on above: Performed By: #### C BC #### [facility] [address] [place] [address] Lymphocytes (Bld) [#/Vol] 1.4 10*3/uL Normal 1.0-4.0 [facility] Comment on above: Performed By: #### C BC #### [facility] [address] [place] [address] Lymphocytes/100 WBC (Bld) 12.2 % Low 16-48 [facility] Comment on above: Performed By: #### C BC #### [facility] [address] [place] [address] MCH (RBC) [Entitic mass] 34.4 g/dL Normal 31.0-36.0 [facility] Comment on above: Performed By: #### C BC #### [address] [place] [address] MCV (RBC) [Entitic vol] 92.4 fL Normal 80-97 [facility] Comment on above: Performed By: #### C BC #### [facility] [address] [place] [address] MEAN CORPUSCULAR HGB 31.8 pg Normal 26.0-32.0 [facility] Comment on above: Performed By: #### C BC #### [facility] [address] [place] [address] Monocytes (Bld) [#/Vol] 1.1 10*3/uL Normal 0.1-1.7 [facility] Comment on above: Performed By: #### C BC #### [facility] [address] [place] [address] Monocytes/100 WBC (Bld) 9.6 % High 3-9 [facility] Comment on above: Performed By: #### C BC #### [facility] [address] [place] [address] Platelet mean volume (Bld) [Entitic vol] 7.5 fL Normal 6.4-10.5 [facility] Comment on above: Performed By: #### C BC #### [facility] [address] [place] [address] Platelets (Bld) [#/Vol] 300 10*3/uL Normal 140-450 [facility] Comment on above: Performed By: #### C BC #### [facility] [address] [place] [address] RBC (Bld) [#/Vol] 4.15 10*6/uL Low 4.40-6.30 [facility] Comment on above: Performed By: #### C BC #### [facility] [address] [place] [address] RED CELL DISTRI WIDTH 15.6 % High 11.0-15.5 [facility] Comment on above: Performed By: #### C BC #### [facility] [address] [place] [address] WBC (Bld) [#/Vol] 11.2 10*3/uL High 4.0-11.0 [facility] Comment on above: Performed By: #### C BC #### [facility] [address] [place] [address] COMPREHENSIVE METABOLIC PANE Oskar 11-16-2020 Albumin [Mass/Vol] 3.6 g/dL Normal 3.4-5.0 [facility] Comment on above: Performed By: #### M N, TRO #### [facility] [address] [place] [address] Albumin/Globulin [Mass ratio] 0.9 {ratio} Low 1.1-1.8 [facility] Comment on above: Performed By: #### M N, TRO #### [facility] [address] [place] [address] ALP [Catalytic activity/Vol] 95 U/L Normal 45-117 [facility] Comment on above: Performed By: #### M N, TRO #### [facility] [address] [place] [address] ALT [Catalytic activity/Vol] 31 U/L Normal 12-78 [facility] Comment on above: Performed By: #### M N, TRO #### [facility] [address] [place] [address] Anion gap [Moles/Vol] 12.0 mmol/L Normal 11-23 [facility] Comment on above: Performed By: #### M N, TRO #### [facility] [address] [place] [address] Bilirubin [Mass/Vol] 0.8 mg/dL Normal 0.2-1.0 [facility] Comment on above: Performed By: #### M N, TRO #### [address] [place] [address] Calcium [Mass/Vol] 9.4 mg/dL Normal 8.5-10.1 [facility] Comment on above: Performed By: #### M N, TRO #### [address] [place] [address] Chloride [Moles/Vol] 103 mmol/L Normal 98-107 [facility] Comment on above: Performed By: #### M N, TRO #### [address] [place] [address] CO2 [Moles/Vol] 22.0 mmol/L Normal 21-32 [facility] Comment on above: Performed By: #### M N, TRO #### [address] [place] [address] Creatinine [Mass/Vol] 1.10 mg/dL Normal 0.7-1.3 [facility] Comment on above: Performed By: #### M N, TRO #### [address] [place] [address] GFR AM > 60.0 Normal [facility] Comment on above: Result Comment: THE NORMAL LEVEL OF GFR VARIES ACCORDING TO AGE, SEX, AND BODY SIZE. A GFR LEVEL OF LESS THAN 60 ML/MIN REPRESENTS LOSS OF THE ADULT LEVEL OF NORMAL KIDNEY FUNCTION. Performed By: #### M N, TRO #### [address] [place] [address] GFR/1.73 sq M.predicted MDRD (S/P/Bld) [Vol rate/Area] mL/min/{1.73_m2} Normal [facility] Comment on above: Performed By: #### M N, TRO #### [address] [place] [address] Globulin (S) [Mass/Vol] 4.1 g/dL Normal 2.5-4.6 [facility] Comment on above: Performed By: #### M N, TRO #### [address] [place] [address] Glucose [Mass/Vol] 138 mg/dL High 70-100 [facility] Comment on above: Performed By: #### M N, TRO #### [address] [place] [address] Potassium [Moles/Vol] 4.7 mmol/L Normal 3.5-5.1 [facility] Comment on above: Performed By: #### M N, TRO #### [facility] [address] [place] [address] Protein [Mass/Vol] 7.7 g/dL Normal 6.0-8.3 [facility] Comment on above: Performed By: #### M N, TRO #### [address] [address] SGOT/AST 20 U/L Normal 15-37 [facility] Comment on above: Performed By: #### M N, TRO #### [address] [address] Sodium [Moles/Vol] 132 mmol/L Low 136-145 [facility] Comment on above: Performed By: #### M N, TRO #### [facility] [address] [place] [address] Urea nitrogen [Mass/Vol] 13.0 mg/dL Normal 7-18 [facility] Comment on above: Performed By: #### M N, TRO #### [address] [address] D-DIMERon 11-16-2020 D-DIMER 1.60 mg/L FEU High 0.0-0.59 [facility] Comment on above: Result Comment: The cut-off level for exclusion of DVT PE is <0.5 mg/L FEU Results of D-Dimer testing should be interpreted in conjunction with the patients's history and clinical presentation. Increased levels of D-Dimer may occur in the following: DVT,PE,DIC,Trauma,Cancer,Sepsis,,Cirrhosis, Rheumatoid Arthritis and Myocardial Infarction. NOTE: False negative results may be seen in patients on anti-coagulant therapy. Performed By: #### D AWILDA #### [address] [address] ED.PDOCon 11-16-2020 ED.PDOC BART LOPEZ Male [id number] Attending provider: [facility] ER ER [id number] Rusty Serrano 1955 65 DOS: 11/16/20 Hx/Exam - History of Present Illness Chief Complaint: CHEST PAIN Location: anterior cehst Symptom Duration: hours Symptom Duration: Hour(s) Onset of Symptoms: gardual Intensity: mild-moderate Quality: sorenss Episode Frequency: 1 episode Episode Duration: Hours Radiations: as above Patient/Family Denies: headach,e neck pian, back pian, rash, vomiting, abd pain, F/c/R - Review of Systems All Other Systems: Pertinent Positives in HPI, All Other Systems Negative Constitutional: Denies: Fever, Chills, Sweats Eyes: Denies: Pain, Blurred Vision ENT: Denies: Ear Pain, Ear Discharge, Nose Pain, Nose Discharge, Nose Congestion, Mouth Pain, Mouth Swelling, Throat Pain, Throat Swelling Respiratory: Denies: Cough, Dry, Shortness of Breath, Sputum, Wheezing Cardiovascular: Chest Pain. Denies: Palpitations, Orthopnea, Paroxysmal Noc. Dyspnea, Edema, Light Headedness Gastrointestinal: Denies: Nausea, Vomiting, Abdominal Pain, Diarrhea, Hematochezia Genitourinary: Denies: Dysuria, Vaginal bleed/discharge Musculoskeletal: Denies: Neck Pain, Back Pain, Body Aches Skin: Denies: Rash Neurological: Denies: Headache, Weakness, Numbness, Incoordination, Change in Speech, Confusion, Seizures Psychiatric: Denies: Anxiety, Depression, Suicidal Ideation - Past Medical History ED PMH: Yes CAD, Yes HTN - Past Surgical History Surgical History: Yes CABG, Yes Hernia Repair - Social History Smoking Status: Former Smoker Hx Alcohol Use: No Hx Drug Use: None Living Conditions: Family - Family History Family/Social History Related to Chief Complaint: Denies - Physical Exam General Appearance: awake, alert, no apparent distress Eyes: PERRL, EOMI Head, Ears, Nose, and Throat: TMs normal, pharynx normal, mucous membranes moist, atraumatic, mastoid non-tender Neck: supple, non-tender, no stridor, no bony tenderness, full ROM, no meningeal signs, no cervical lymphadenopathy, other (no bruit/thrill nekc B/L) Respiratory: lungs clear, no wheezes/rhonchi/rales, no respiratory distress, no accessory muscle use, no crepitus, chest wall tender (no rahs) Cardiovascular: regular rate, rhythm, no murmur, no gallop Abdomen/GI: non tender, soft, non-distended, normal bowel sounds, no organomegaly, no pulsatile mass, no peritoneal signs Back: no CVA tenderness, no vertebral tenderness, normal ROM, non tender Extremity: normal range of motion, non-tender, normal inspection, no pedal edema, no calf tenderness Pulses: Radial: 2+, Posterior Tibial: 2+, Dorsalis Pedis: 2+ Neurologic: no motor/sensory deficits, normal strength, normal sensation, speech clear/fluent Psychiatric: oriented x3, calm Skin Exam: warm/dry, other (no rahs) Lymphatic: no adenopathy - Source of History Source of History: Nursing Notes/Vital Signs/Triage Reviewed and Agree Note(s) - Physician Notes Additional Notes, See Orders for Details: 11/16/20 10:39 65-year-old male presents from home for evaluation of chest soreness over his anterior chest which he started noticing this morning and has been going on for several hours. Patient denies any tearing chest to back pain. Denies any neck pain; no signs of meningismus. Denies abdominal pain or vomiting. 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 He will frequently go on a steroid taper for the symptoms. He states he was having a flareup of this in his hand as well and suspects that his chest soreness is due to this inflammatory condition but he did have a CABG in February 2020 at [facility] and wanted to come in for evaluation to be sure. Patient denies any abdominal pain or vomiting. Denies any fever chills or rigors. d dimer posiitve. IVF were given prior and after CT scan. CTA shows: IMPRESSION: COPD and central bronchiectasis, absent pulmonary consolidation. No pulmonary emboli to the level of the segmental arteries. Separate chronic and post surgical findings as described. Electronically signed by: Dalton Smiley MD 11/16/2020 10:58 AM SPRING TESTER - [id number]; I d/ wpt all imaging results. HEART score is 3. Repeat troponin negative as well. Pt notes he has his appointment with his Drainage Inspector already scheduled Saturday. Discussed with patient, comfortable with plan, close follow up and return precautions. This note is completed with assistance of the medidam[employer] dictation program. While every attempt has been made to dictate accurately, the system does make errors in transcribing the precise spoken word intended. 11/17/20 22:43 This note completed at this point due to the busyness of the ED at time of pt encounter. EKG - EKG EKG Interpretation: Preliminary ED Interpretation (Sinus rhythm rate 96; no prior for comparison; RBBB and LAFB noted; no acute ST or T wave abnormalities noted) Discharge Screen - Discharge Discharge Problem: Atypical chest pain Disposition: HOME/SELF CARE Additional Instructions: Please take your medication as prescribed and follow up closely with your primary care doctor and Drainage Inspector. If the symptoms worsen or new symptoms develop return to the Emergency Department (ED) immediately. Call your doctor for additional questions. ED Condition: Good Instructions: DI for Atypical Chest Pain Prescriptions: PredniSONE [Prednisone] 10 mg PO ASDIR #42 tab Prescription Printed Albuterol [Ventolin Hfa 18 gm] 2 puffs INH Q4-6H PRN PRN #1 inh PRN Reason: Prescription Printed Referrals: provider (Unknown),Unlisted [Primary Care Provider] - 2-3 Days Doctor,Your [ACTIVE] - 2-3 Days Dictated By: Rusty Serrano MD Dictated Date/Time:11/16/20 1028 Electronically Signed Date/Time: 11/17/20 2246 Normal [facility] TROPONINon 11-16-2020 Troponin I.cardiac [Mass/Vol] ng/mL Normal 0-0.045 [facility] Comment on above: Result Comment: Trop onin Reference Range 0.0 - 0.045 ng/ml Negative 0.046 - 0.1 ng/ml Intermediate Risk 0.11 - 0.59 ng/ml High Risk Greater than or equal to 0.6 ng/ml - Indicative of Myocardial Damage Performed By: #### T RO #### [address] [address] Troponin I.cardiac [Mass/Vol] ng/mL Normal 0-0.045 [facility] Comment on above: Result Comment: Trop onin Reference Range 0.0 - 0.045 ng/ml Negative 0.046 - 0.1 ng/ml Intermediate Risk 0.11 - 0.59 ng/ml High Risk Greater than or equal to 0.6 ng/ml - Indicative of Myocardial Damage Performed By: #### M N, TRO #### [address] [address] PROGRESSon 04-18-2020 PROGRESS HNO ID: [id number] Author: Uvlado ([employer] Celebrity Chef Entrepreneur Media Personality) ELEUTERIO Tapia Service: ? Author Type: Nurse Practitioner Type: Progress Notes Filed: 04/18/2020 2:01 PM Note Text: Heart, Vascular and Thoracic [place] [facility] region Virtual Visit ESTABLISHED/ POST-OP follow up Date: 04/18/2020 Patient: Yari Lopez : 1955 This is a virtual visit. It required patient-provider interaction for the medical decision making as documented below. I had personally obtain consent for this virtual visit with patient. HPI: Yari Lopez is a 64 year old male that returns virtually today for one month post-discharge follow up for s/p CABG x 4 (kitchen-lad; luisa-diag; svg-om. svg-rpl; evh) performed on 03/08/[address] Hinson. His Postoperative recovery was uncomplicated, had anticipated postop respiratory insufficiency required prolonged oxygen supplementation and was able to weaned off to room air. Patient was transferred out of ICU on POD #3. He was discharged on 03/14/2020 to home with [facility]. Interval events since discharge: none Yari Lopez reports home recovery as listed below: C/O: comes and goes muscle pain where is numb . Episodes of dizziness/lightheadedne ss/syncope: No Angina: No Palpitations: No BP: reviewed per home log: good per home BP reviewed Tolerating diet well without changing bowel habits: Yes Fever, chills: No Activities at home without SOB or HALE: No, walks long distance without issues. Post surgical pain: No, without Narcotics and takes Tylenol as needed at this time. Leg edema: No Sleep: still struggle with sleep, 3-4 hrs at a time, attributed to undiagnosed anxiety/life situation. Energy: better. Subjective: HISTORY REVIEWED (electronic chart updated): PAST MEDICAL HISTORY Diagnosis Date - Coronary artery disease without angina pectoris - Hernia 1971 - Hypercholesteremia - Hypertension - IBS (irritable bowel syndrome) - Osteoarthritis of right knee PAST SURGICAL HISTORY Procedure Laterality Date - CABG (4) VEIN GRAFTS AND ARTERIAL GRAFT(S) 03/08/2020 - CARDIAC CATH 12/31/2019 @ [facility] by Dr. He - CHEST TUBE - INSERT 1984 HAD PNEUMONIA - FOOT SURGERY HX plantars wart outer edge of foot - HERNIA REPAIR HX FAMILY HISTORY Problem Relation Age of Onset - Ischemic Heart Disease Mother - Ischemic Heart Disease Father - other (HEART ATTACK) Father - Breast Cancer Sister - Coronary Artery Disease Sister Social History Tobacco Use - Smoking status: Former Smoker Packs/day: 1.50 Types: Cigarettes Start date: 01/16/1965 Last attempt to quit: 01/16/2020 Years since quittin.2 - Smokeless tobacco: Current User Types: Snuff Substance Use Topics - Alcohol use: Yes Comment: 1-2 daily - Drug use: Not Currently Current Outpatient Medications Medication Sig - losartan (COZAAR) 50 mg tablet Take 1 tablet by mouth once daily. - metoprolol tartrate, short acting, (LOPRESSOR) 50 mg tablet Take 1 tablet by mouth twice daily. - blood sugar diagnostic (Mouth FoodsTOUCH VERIO) test strip Check BS 3 times a day - Blood-Glucose Meter (Mouth FoodsTOUCH VERIO FLEX) 1 Box as directed. Check BS 3 times aday1 - lancets (Mouth FoodsTOUCH DELICA LANCETS) 30 gauge misc Check BS 3 times a day - acetaminophen (TYLENOL) 500 mg tablet Take 2 tablets by mouth four times daily. No more than 4000 mg total for a 24 hours window. Thanks. (Patient taking differently: Take 2 tablets by mouth every 6 hours as needed for Pain. No more than 4000 mg total for a 24 hours window. Thanks.) - aspirin, enteric coated (ECOTRIN LOW STRENGTH) 81 mg EC tablet Take 2 tablets by mouth once daily for 30 days, THEN 1 tablet once daily. - magnesium oxide (MAG-OX) 400 mg (241.3 mg magnesium) tablet Take 1 tablet by mouth once daily. - albuterol HFA (PROAIR HFA) 90 mcg/actuation inhaler 2 Puffs every 6 hours as needed. Take as directed (Patient taking differently: 2 Puffs every 6 hours as needed for Wheezing/Shortness of Breath. Take as directed) - glimepiride (AMARYL) 1 mg tablet Take 0.5 tablets by mouth daily with breakfast. - metFORMIN ER (GLUCOPHAGE XR) 500 mg 24 hr tablet Take 1 tablet by mouth daily with breakfast. - coenzyme Q10 (COENZYME Q-10) 100 mg cap capsule Take 100 mg by mouth once daily. - Docusate Sodium 250 mg capsule Take 250 mg by mouth once daily. - Cholecalciferol, Vitamin D3, (VITAMIN D-3) 50 mcg (2,000 unit) cap Take 2,000 Units by mouth once daily. - pravastatin (PRAVACHOL) 80 mg tablet Take 1 tablet by mouth once daily. No current facility-administered medications for this visit. ALLERGIES Allergen Reactions - Penicillins Swelling REVIEW OF SYSTEMS: Review of Systems Constitutional: Negative for chills, fever, malaise/fatigue and weight loss. HENT: Negative for sore throat. Respiratory: Negative for cough, sputum production, shortness of breath and wheezing. Cardiovascular: Negative for chest pain, palpitations, orthopnea, claudication, leg swelling and PND. Gastrointestinal: Negative for abdominal pain, blood in stool, constipation, diarrhea, melena, nausea and vomiting. Genitourinary: Negative for dysuria. Musculoskeletal: Negative for falls and joint pain. Skin: No new lesions Neurological: Negative for dizziness, tingling, sensory change, focal weakness, weakness and headaches. Endo/Heme/Allergies: Does not bruise/bleed easily. Psychiatric/Behavioral: Negative for depression. Objective: Due to COVID 19 pandemic, One month post- op Chest X-ray is not performed routinely to avoid potential exposure. Physical Exam Constitutional: He is well-developed, well-nourished, and in no distress. Skin: Well approximated sternal wound/incision without signs of infection. I did noted some redness on the EVH on left proximal EVH site without drainage/tenderness per patient report. scab just came off yesterday . VIDEO EXAM: (if completed, performed via video enabled technology) Vitals:There were no vitals taken for this visit. home vitals reported: BP: 120/78, HR 73, WT: 226.2 Last 2 Encounter Wt Readings: Date: Wt: 04/14/2020 223 lb (101.2 kg) 03/29/2020 221 lb (100.2 kg) ASSESSMENT AND PLAN: ASSESSMENT/PLAN: 1. S/P CABG x 4 - ICD9: V45.81, ICD10: Z95.1 (primary diagnosis) - ASA 81 mg daily, Lipitor 80mg, Lopressor? 50 mg BID 2. Type 2 diabetes mellitus without complication, without long-term current use of insulin (HCC) - ICD9: 250.00, ICD10: E11.9 Controlled. - Continue current medications - BP goal of <130/80 - LDL goal of <100 3. Essential hypertension - ICD9: 401.9, ICD10: I10 - good control - Continue current medication(s) - Recommended regular aerobic exercise. - Recommend home blood pressure monitoring, to bring results in on next visit - Goal of BP <130/80 Cardiac rehabilitation: to start at [facility] Drainage Inspector follow up appointment: patient f/u with Dr. Wells PCP follow up appointment: with Dr. West In summary, Yari Lopez is a 64 year old male that returns virtually today for one month post-discharge follow up for s/p CABG x 4 (kitchen-lad; luisa-diag; svg-om. svg-rpl; evh) performed on 03/08/[address] Hinson. His post-operative course was uncomplicated. Patient is doing well overall without major complaints. Patient is released to drive, work and gradually resume normal daily activities. It's recommended that patient should start cardiac rehab from this point on. he should follow up with his window assembler and PCP as scheduled, and only needs to be seen here on as needed basis. Thanks. I spent more than 21-40 minutes [id number] with the patient and over half the time was devoted to counseling and/or coordination of care. Uvaldo Tapia APRN.ELEUTERIO April 18, 2020 11:30 AM Normal [facility] PROGRESSon 03-21-2020 PROGRESS HNO ID: [id number] Author: Uvaldo (Karmen Castillo) ELEUTERIO Tapia Service: ? Author Type: Nurse Practitioner Type: Progress Notes Filed: 03/21/2020 10:55 AM Note Text: Heart, Vascular and Thoracic [place] [facility] region Virtual Visit ESTABLISHED/ POST-OP follow up Date: 03/21/2020 Patient: Yari Lopez : 1955 This is a virtual video+audio visit. It required patient-provider interaction for the medical decision making as documented below. HPI: Yari Lopez is a 64 year old male that returns virtually today for one week post-discharge follow up for s/p CABG x 4 (kitchen-lad; luisa-diag; svg-om. svg-rpl; evh) performed on 03/08/[address] Hinson. His Postoperative recovery was uncomplicated, had anticipated postop respiratory insufficiency required prolonged oxygen supplementation and was able to weaned off to room air. Patient was transferred out of ICU on POD #3. He was discharged on 03/14/2020 to home with [facility]. Interval events since discharge: none Yari Lopez reports home recovery as listed below: C/O: none Episodes of dizziness/lightheadedne ss/syncope: No Angina: No Palpitations: No BP: reviewed per home lo/67, HR 67. Tolerating diet well without changing bowel habits: Yes Fever, chills: No Activities at home without SOB or HALE: Yes, walks frequently Post surgical pain: No, without Narcotics and takes Tylenol as needed at this time. Leg edema: No, almost non-existing any more Sleep: good Energy: feeling better daily Subjective: HISTORY REVIEWED (electronic chart updated): PAST MEDICAL HISTORY Diagnosis Date - Coronary artery disease without angina pectoris - Hernia 1971 - Hypercholesteremia - Hypertension - IBS (irritable bowel syndrome) - Osteoarthritis of right knee PAST SURGICAL HISTORY Procedure Laterality Date - CARDIAC CATH 12/31/2019 @ [facility] by Dr. He - CHEST TUBE - INSERT 1984 HAD PNEUMONIA - FOOT SURGERY HX plantars wart outer edge of foot - HERNIA REPAIR HX FAMILY HISTORY Problem Relation Age of Onset - Ischemic Heart Disease Mother - Ischemic Heart Disease Father - other (HEART ATTACK) Father - Breast Cancer Sister - Coronary Artery Disease Sister Social History Tobacco Use - Smoking status: Former Smoker Packs/day: 1.50 Types: Cigarettes Start date: 01/16/1965 Last attempt to quit: 01/16/2020 Years since quittin.1 - Smokeless tobacco: Current User Types: Snuff Substance Use Topics - Alcohol use: Yes Comment: 1-2 daily - Drug use: Not Currently Current Outpatient Medications Medication Sig - blood sugar diagnostic (ONETOUCH VERIO) test strip Check BS 3 times a day - Blood-Glucose Meter (ONETOUCH VERIO FLEX) 1 Box as directed. Check BS 3 times aday1 - lancets (ONETOUCH DELICA LANCETS) 30 gauge misc Check BS 3 times a day - acetaminophen (TYLENOL) 500 mg tablet Take 2 tablets by mouth four times daily. No more than 4000 mg total for a 24 hours window. Thanks. (Patient taking differently: Take 2 tablets by mouth every 6 hours as needed for Pain. No more than 4000 mg total for a 24 hours window. Thanks.) - aspirin, enteric coated (ECOTRIN LOW STRENGTH) 81 mg EC tablet Take 2 tablets by mouth once daily for 30 days, THEN 1 tablet once daily. - gabapentin (NEURONTIN) 100 mg capsule Take 1 capsule by mouth every 12 hours for 7 days. - magnesium oxide (MAG-OX) 400 mg (241.3 mg magnesium) tablet Take 1 tablet by mouth once daily. - melatonin 3 mg tablet Take 1 tablet by mouth at bedtime as needed (insomnia). - methyl salicylate-menthol 15-10 % topical cream Apply to affected area every 8 hours as needed (Shoulder paint/stiffness) for up to 14 days. - oxyCODONE IR (ROXICODONE) 5 mg immediate release tablet Take 1 tablet by mouth every 6 hours as needed for up to 7 days. - polyethylene glycol 3350 (MIRALAX, GLYCOLAX) 17 gram packet Take 1 Packet by mouth once daily. - albuterol HFA (PROAIR HFA) 90 mcg/actuation inhaler 2 Puffs every 6 hours as needed. Take as directed (Patient taking differently: 2 Puffs every 6 hours as needed for Wheezing/Shortness of Breath. Take as directed) - furosemide (LASIX) 20 mg tablet Take 1 tablet by mouth once daily for 4 days. - glimepiride (AMARYL) 1 mg tablet Take 0.5 tablets by mouth daily with breakfast. - metFORMIN ER (GLUCOPHAGE XR) 500 mg 24 hr tablet Take 1 tablet by mouth daily with breakfast. - metoprolol tartrate, short acting, (LOPRESSOR) 50 mg tablet Take 1 tablet by mouth three times daily. - coenzyme Q10 (COENZYME Q-10) 100 mg cap capsule Take 100 mg by mouth once daily. - Docusate Sodium 250 mg capsule Take 250 mg by mouth once daily. - buPROPion XL (WELLBUTRIN XL) 300 mg 24 hr tablet Take 300 mg by mouth once daily. - Cholecalciferol, Vitamin D3, (VITAMIN D-3) 50 mcg (2,000 unit) cap Take 2,000 Units by mouth once daily. - pravastatin (PRAVACHOL) 80 mg tablet Take 1 tablet by mouth once daily. - losartan (COZAAR) 50 mg tablet Take 1 tablet by mouth once daily. (Patient not taking: Reported on 03/07/2020 ) No current facility-administered medications for this visit. ALLERGIES Allergen Reactions - Penicillins Swelling REVIEW OF SYSTEMS: Review of Systems Constitutional: Negative for chills, fever, malaise/fatigue and weight loss. HENT: Negative for sore throat. Respiratory: Negative for cough, sputum production, shortness of breath and wheezing. Cardiovascular: Negative for chest pain, palpitations, orthopnea, claudication, leg swelling and PND. Gastrointestinal: Negative for abdominal pain, blood in stool, constipation, diarrhea, melena, nausea and vomiting. Genitourinary: Negative for dysuria. Musculoskeletal: Negative for falls and joint pain. Skin: No new lesions Neurological: Negative for dizziness, tingling, sensory change, focal weakness, weakness and headaches. Endo/Heme/Allergies: Does not bruise/bleed easily. Psychiatric/Behavioral: Negative for depression. Objective: Physical Exam Constitutional: He is oriented to person, place, and time and well-developed, well-nourished, and in no distress. Pulmonary/Chest: Advised patient to assess sternal movement with hands placing on chest: no malunion noted. Abdominal: CT sites are scabbed no signs of infection Neurological: He is oriented to person, place, and time. Skin: Sternal wound appear dry and healthy, no signs of infection: drainage, red, edema. VIDEO EXAM: (if completed, performed via video enabled technology) Vitals:There were no vitals taken for this visit. Patient patient report: Today BP : 106/67. HR 67, Wt: 220.6 Last 2 Encounter Wt Readings: Date: Wt: 03/15/2020 225 lb 8 oz (102.3 kg) 02/16/2020 226 lb (102.5 kg) ASSESSMENT AND PLAN: 1. S/P CABG x 4 - ICD9: V45.81, ICD10: Z95.1 (primary diagnosis) - c/w ASA 162 for 1 month, Lipitor 80mg, Lopressor? 50 mg drop down to BID - continue home ambulation -f/u with Dr. Arreaga in 4-6 weeks: already has an appointment -f/u with CTS in 3-4 weeks 2. Type 2 diabetes mellitus without complication, without long-term current use of insulin (HCC) - ICD9: 250.00, ICD10: E11.9 Controlled. - Continue current medications - Encouraged regular aerobic exercise and weight loss - Daily Asprin therapy recommended - BP goal of <130/80 - LDL goal of <100 3. Essential hypertension - ICD9: 401.9, ICD10: I10 - good control - Continue current medication(s): BB 50 mg BID, Losartan 50 mg daily - Recommended regular aerobic exercise. 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 West In summary, Yari Lopez is a 64 year old male that returns virtually today for one week post-discharge follow up for s/p CABG x 4 (kitchen-lad; luisa-diag; svg-om. svg-rpl; evh) performed on 03/08/[address] Hinson. His Postoperative recovery was uncomplicated, Patient is doing well overall without major complaints. 1 week: patient is to follow back in 3-4 weeks. he is recommended to continue weight limits of 10 lbs and no driving until next follow up visit. I spent more than 41-55 minutes [id number] with the patient and over half the time was devoted to counseling and/or coordination of care. Uvaldo Tapia APRN.CHICKEN TENDER March 21, 2020 10:03 AM [facility] CASE MANAGEMon 03-14-2020 CASE MANAGEM HNO ID: [id number] Author: Iesha BranchRn) ELIEZER August Service: Care Management Author Type: Registered Nurse Type: Care Mgt Progress Note Filed: 03/14/2020 11:29 AM Note Text: CARE MANAGEMENT DISCHARGE NOTE SERVICE DATE: 03/14/2020 SERVICE TIME: 11:29 AM LOS: 6 days Admission Date: 03/08/2020 DISCHARGE ARRANGEMENT (list agency and phone number) Discharge Arrangement: Home Fdc Care: Nursing Provider Name: [facility] CAREGIVER ASSESSMENT: Caregiver is ready, willing and able to meet the patient's needs as recommended by the inter-professional team:: Yes Does the patient have an acute stroke diagnosis, or has the patient had a stroke during this admission?: No Patient's transition needs and plan for meeting these needs: home with and hhc. HANDOFF COMMUNICATION: TRANSPORTATION ARRANGEMENTS: Transportation Arrangements: Car ADDITIONAL CONTACT RESOURCES: SIGNATURE: Iesha August RN PATIENT NAME: Yari Lopez DATE: March 14, 2020 TIME: 11:28 AM PAGER/CONTACT #: [phone] [facility] CONSULT PROGon 03-14-2020 CONSULT PROG HNO ID: [id number] Author: Mercedes Davis Service: Endocrinology Author Type: Physician Type: Consult Progress Note Filed: 03/14/2020 8:32 AM Note Text: ENDOCRINOLOGY CONSULT PROGRESS NOTE SERVICE DATE: 03/14/2020 SERVICE TIME: 8:00 AM Subjective INTERVAL HPI: Following for DM type 2. Adm for scheduled CABG x 4 on 03/08. Notes and orders reviewed. Diet: DIET HEART HEALTHY p.o intake good on 03/13 Activity:Up with Assistance ambulating well Review of Systems: occ pain (03/27 today); no SOB, no nausea Current Facility-Administered Medications Medication Dose Route Frequency - aspirin 162 mg tab(s) 162 mg ORAL DAILY - acetaminophen 1,000 mg tab(s) (TYLENOL) 1,000 mg ORAL/FEEDING TUBE q 6 H - buPROPion XL 300 mg tab(s) (WELLBUTRIN XL) 300 mg ORAL DAILY - cholecalciferol 2,000 Units tab(s) (VITAMIN D3) 2,000 Units ORAL DAILY - enoxaparin 40 mg injection (LOVENOX) 40 mg SUBCUTANEOUS DAILY - lidocaine 4 % 1 Patch (SALONPAS) 1 Patch TRANSDERMAL DAILY And - lidocaine patch - REMOVE OTHER AT BEDTIME And - lidocaine - VERIFY PATCH OTHER q 8 H - polyethylene glycol 3350 17 g packet (MIRALAX, GLYCOLAX) 17 g ORAL DAILY - senna-docusate 8.6-50 mg 1 tablet (SENNA-S) 1 tablet ORAL BID - NaCl 0.9% 250 mL iv bolus 250 mL INTRAVENOUS Post-Op PRN - gabapentin 200 mg cap(s) (NEURONTIN) 200 mg ORAL q 12 H - magnesium oxide 400 mg tab(s) (MAG-OX) 400 mg ORAL DAILY - bisacodyl 10 mg suppository (DULCOLAX) 10 mg RECTAL DAILY PRN - pantoprazole DR 40 mg tab(s) (PROTONIX) 40 mg ORAL DAILY (6 AM) - atorvastatin 80 mg tab(s) (LIPITOR) 80 mg ORAL AT BEDTIME - oxyCODONE IR 5-10 mg tab(s) (ROXICODONE) 5-10 mg ORAL q 3 H PRN - dextrose 40 % 15 g 15 g ORAL PRN Or - glucagon 1 mg injection (GLUCAGEN) 1 mg INTRAMUSCULAR PRN Or - dextrose 50% in water 25 mL syringe 12.5 g INTRAVENOUS PRN - insulin lispro pen (rapid acting) (HumaLOG KWIKPEN) SUBCUTANEOUS w MEALS - benzocaine-menthoL 1 Lozenge (CEPACOL) 1 Lozenge MUCOUS MEMBRANE (TOPICAL MOUTH AND THROAT) q 2 H PRN - metoprolol tartrate (short acting) 50 mg tab(s) (LOPRESSOR) 50 mg ORAL q 12 H - NaCl 0.9% 2-10 mL 2-10 mL INTRAVENOUS q 12 H - melatonin 3 mg tab(s) 3 mg ORAL HS PRN - methyl salicylate 15% - menthol 10% topical cream TOPICAL q 8 H PRN - losartan 50 mg tab(s) (COZAAR) 50 mg ORAL DAILY - albuterol 2.5 mg /3 mL (0.083 %) 2.5 mg (PROVENTIL) 2.5 mg INHALATION q 2 H PRN - ipratropium-albuterol 3 mL nebulizer solution (DUONEB) 3 mL INHALATION q 4 H while awake - glimepiride 0.5 mg tab(s) (AMARYL) 0.5 mg ORAL DAILY WITH BREAKFAST - metFORMIN ER 500 mg tab(s) (GLUCOPHAGE XR) 500 mg ORAL DAILY WITH BREAKFAST Objective PHYSICAL EXAM: GENERAL: Alert, no distress, cooperative SKIN: no rash/bruises; dry skin feet OROPHARYNX: moist LUNGS: coarse sounds, fair air entry; has a vest CARDIAC: RRR ABDOMEN: soft, non tender EXTREMITIES: trace edema, small calluses 1st toe and 5th MT; has stockings BP 119/66 Pulse 75 Temp (Src) 98.4 (Oral) Resp 16 Ht 6' 0 (1.83m) Wt 229 lb 1.6 oz (103.9kg) SpO2 95% BMI 31.06 kg/(m2). O2 Therapy: Room Air DATA: Diagnostic tests reviewed for today's visit: Most recent labs and imaging results. Last 24 hr BS reviewed. Recent Labs 03/13/20 2117 03/13/20 1834 03/13/20 1609 03/13/20 1136 03/13/20 0759 03/13/20 0615 03/12/20 0447 GLUC -- -- -- -- -- 127* -- 107* GLUCOSEMETER 164* 135* 118* 170* 136* -- < > -- < > = values in this interval not displayed. Assessment/Plan DM type 2, pptd after surgery; pre-op A1c was 6.1 on 02/10; may have had impaired glucose tolerance. Had CABG on 03/08; pt seen on 03/13 for hyperglycemia. Was on SSI insulin and regular diet; BS >150's. Pt had regular pancake syrup, sweet tea and some other sugars with diet Started on Amaryl 0.5 mg daily and Metformin ER 500 mg daily on 03/13 (first dose at 12:15 pm on 03/13). Diet changed to carb control on 03/13. Contd SSI. BS better, then >150 at hs. Cont Rx, will not increase dose yet. Diet reinforced. Diab Ed to see pt. Will need Rx for Amaryl, Metformin, glucose meter/strips/lancets for home. Rx for meter/strips/lancets pended by me. F/U with PCP after D/C; call my office if problems. S/P CABG x 4 POA: Unknown Assessment AND Plan: CABG on 03/08 Tobacco abuse SIGNATURE: Mercedes Davis MD PATIENT NAME: Yari Lopez DATE: March 14, 2020 TIME: 8:32 AM PAGER: [phone] [facility] Glucose Meteron 03-14-2020 Glucose [Mass/Vol] 116 mg/dL High 70-99 [facility] Comment on above: Result Comment: RN N OTIFIED Performed By: #### G LMET #### [place] [address] PLAN OF CAREon 03-14-2020 PLAN OF CARE HNO ID: [id number] Author: Jayda Zavala (Pharmacist) Service: Pharmacy Author Type: Pharmacist Type: Plan of Care Filed: 03/14/2020 12:52 PM Note Text: DISCHARGE MEDICATION REVIEW BY PHARMACY Patient Name: Yari Lopez Account #: Data Unavailable Admission Date: 03/08/2020 Date of Contact: March 14, 2020 Time of Contact: 12:52 PM Medication list was reviewed by a Pharmacist for drug interactions or drug related problems:Yes Below is a summary of pharmacist recommendations discussed with LIP: No Recommendations at this time from Discharge Medication List. JAYDA ZAVALA, PHARMACIST March 14, 2020 12:52 PM EXT [id number] Medication List START taking these medications albuterol HFA 90 mcg/actuation inhaler Commonly known as: PROAIR HFA 2 Puffs every 6 hours as needed. Take as directed aspirin, enteric coated 81 mg EC tablet Commonly known as: ECOTRIN LOW STRENGTH Take 2 tablets by mouth once daily for 30 days, THEN 1 tablet once daily. Start taking on: March 14, 2020 Replaces: aspirin 325 mg tablet benzocaine-menthol 15-3.6 mg Lozg Commonly known as: CEPACOL Use 1 Lozenge as instructed every 2 hours as needed. blood sugar diagnostic test strip Commonly known as: PROSimity VERIO Check BS 3 times a day Blood-Glucose Meter Commonly known as: PROSimity VERIO FLEX 1 Box as directed. Check BS 3 times aday1 furosemide 20 mg tablet Commonly known as: LASIX Take 1 tablet by mouth once daily for 4 days. glimepiride 1 mg tablet Commonly known as: AMARYL Take 0.5 tablets by mouth daily with breakfast. Start taking on: March 15, 2020 lancets 30 gauge Misc Commonly known as: Mouth FoodsTOUCH DELICA LANCETS Check BS 3 times a day lidocaine 4 % patch Commonly known as: SALONPAS Apply 1 Patch as directed once daily for 5 days. Start taking on: March 15, 2020 magnesium oxide 400 mg (241.3 mg magnesium) tablet Commonly known as: MAG-OX Take 1 tablet by mouth once daily. Start taking on: March 15, 2020 melatonin 3 mg tablet Take 1 tablet by mouth at bedtime as needed (insomnia). metFORMIN ER 500 mg 24 hr tablet Commonly known as: GLUCOPHAGE XR Take 1 tablet by mouth daily with breakfast. Start taking on: March 15, 2020 methyl salicylate-menthol 15-10 % topical cream Apply to affected area every 8 hours as needed (Shoulder paint/stiffness) for up to 14 days. oxyCODONE IR 5 mg immediate release tablet Commonly known as: ROXICODONE Take 1 tablet by mouth every 6 hours as needed for up to 7 days. polyethylene glycol 3350 17 gram packet Commonly known as: MIRALAX, GLYCOLAX Take 1 Packet by mouth once daily. Start taking on: March 15, 2020 CHANGE how you take these medications acetaminophen 500 mg tablet Commonly known as: TYLENOL Take 2 tablets by mouth four times daily. No more than 4000 mg total for a 24 hours window. Thanks. What changed: ? medication strength ? how much to take ? when to take this ? reasons to take this ? additional instructions gabapentin 100 mg capsule Commonly known as: NEURONTIN Take 1 capsule by mouth every 12 hours for 7 days. What changed: ? how much to take ? when to take this metoprolol tartrate (short acting) 50 mg tablet Commonly known as: LOPRESSOR Take 1 tablet by mouth three times daily. What changed: ? medication strength ? how much to take ? when to take this CONTINUE taking these medications coenzyme Q10 100 mg Cap capsule Commonly known as: COENZYME Q-10 Docusate Sodium 250 mg capsule losartan 50 mg tablet Commonly known as: COZAAR Take 1 tablet by mouth once daily. pravastatin 80 mg tablet Commonly known as: PRAVACHOL Take 1 tablet by mouth once daily. Vitamin D-3 50 mcg (2,000 unit) Cap Generic drug: Cholecalciferol (Vitamin D3) WELLBUTRIN XL 300 mg 24 hr tablet Generic drug: buPROPion XL STOP taking these medications aspirin 325 mg tablet Replaced by: aspirin, enteric coated 81 mg EC tablet Ibuprofen 200 mg Cap nitroglycerin sublingual 0.4 mg SL tablet Commonly known as: NITROSTAT Where to Get Your Medications These medications were sent to [facility] [address] [place], [place] [id number] [phone] [id number] [facility] [phone] [place] [address] ? albuterol HFA 90 mcg/actuation inhaler ? aspirin, enteric coated 81 mg EC tablet ? furosemide 20 mg tablet ? gabapentin 100 mg capsule ? glimepiride 1 mg tablet ? magnesium oxide 400 mg (241.3 mg magnesium) tablet ? metFORMIN ER 500 mg 24 hr tablet ? metoprolol tartrate (short acting) 50 mg tablet ? oxyCODONE IR 5 mg immediate release tablet You can get these medications from any pharmacy Bring a paper prescription for each of these medications ? blood sugar diagnostic test strip ? Blood-Glucose Meter ? lancets 30 gauge Misc You don't need a prescription for these medications ? acetaminophen 500 mg tablet ? benzocaine-menthol 15-3.6 mg Lozg ? lidocaine 4 % patch ? melatonin 3 mg tablet ? methyl salicylate-menthol 15-10 % topical cream ? polyethylene glycol 3350 17 gram packet [facility] PLAN OF CARE HNO ID: [id number] Author: Ronel Chen ([place] Everywhere) Service: Pharmacy Author Type: ? 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 Patient to use [facility] Bedside Delivery - NO prefer own pharmacy Insurance Information as follows: 2. Insurance card on file - YES 3. Credit card for payment - N/A Patient declined per CM Assessment on 03/09 Ronel Chen ([place] Everywhere) Extension [id number], or [phone] [facility] THERAPY NTon 03-14-2020 THERAPY NT HNO ID: [id number] Author: Miladis (Pt) Carmella Service: Physical Therapy Author Type: Physical Therapist Type: Therapy (PT/OT/Speech/Resp) Filed: 03/14/2020 12:30 PM Note Text: Physical Therapy Treatment SERVICE DATE: 03/14/2020 SERVICE TIME: 1031 to 1046 ROOM: [place] [address] Recommended Discharge Disposition: Home Recommended Discharge Disposition Comments: with assist from Anticipated Discharge Needs: Physical Assist at Home;Supervision at Home Physical Assist at Home for: Transportation;Shopping ;Self Care;Safety;Stairs;Laun dry;Cleaning;Ambulation ;Meals Supervision at Home due to: Decreased safety awareness(medical status change) Recommended Discharge Equipment: No equipment needs anticipated PT Recommendations to Nursing: Ambulate without device;To bathroom;In halls;Transfer to/from chair;OOB for Meals;With assist of 1 person Device: Hand Held Assist;No Device PT 6 Clicks Score: 21 Precautions/Activity Restrictions: Cardiac;Sternal Isolation Type: None ASSESSMENT : Patient progressing well towards goals, able to increase ambulation distance and ambulate without device. Patient short of breath on exertion, unable to ambulate and converse at the same time. Patient would benefit from additional physical therapy to address deficits, improve strength/balance/mobili ty. Recommend home at discharge, cardiac rehab when appropriate per surgeon. Patient Disposition at Start of Session: Sitting Edge of Bed Patient Disposition at End of Session: OOB in Chair;Call Abdullahi in Reach Tolerated Full Session Physical Therapy Problem List: Pain;Safety Deficits;Decreased Activity Tolerance;Decreased Range Of Motion;Decreased Strength;Functional Mobility Impairment;Balance Impaired Patient /Caregiver Goals: Go Home Goals for Plan of Care: Rolling with: Independent Transfer supine to/from sit with: Independent Transfer sit to/from stand with: Independent Ambulate with: Modified Independent Distance: 200ft Device: Wheeled Walker Transfer: complete bed to chair transfer independently Goal: able to recall 3/3 sternal precautions Progress Toward Goals: Progressing as expected Rehab Potential: Good PLAN: Treatment Frequency (times per week): 5(2-5) Current admission Treatment Interventions: Education;Strengthening ;Functional Mobility Training;Balance Training;Neuromuscular Re-education Plan of Care developed with: Patient TREATMENT INTERVENTIONS: Therapy Diagnosis: Difficulty walking-musculoskeletal Interventions Provided: Therapeutic Activity (20508);Gait Training (53129) Therapeutic Activity (76455) Treatment Minutes: 6 1 unit Skilled Intervention(s): Education on sternal precautions - no pushing, no pulling, no lifting more than 5-10lbs, no overhead motion, no reaching back. Patient demonstrates good understanding. Education on sternal precautions during functional mobility - no pushing, reaching forward or behind with upper extremities, use cough pillow to brace sternum when moving or coughing. Patient demonstrates good understanding. Education and cues for log roll technique for bed mobility. Patient declines trial and reports he will sleep in recliner chair. Education on car transfer and sit in back seat to avoid airbag. Education on incentive spirometer use, patient demos understanding. Gait Training (35911) Treatment Minutes: 8 1 unit Skilled Intervention(s): Education and cues for appropriate transfers. Instructed patient to cross arms over chest and initiate standing by pushing through bilateral lower extremities and utilizing momentum and forward weight shift as needed. Patient requires stand by assist and demonstrates good understanding. Cues to back up to surface and feel surface behind legs. Cues to cross arms over chest and bend at waist for bowing motion. Patient requires stand by assist and demonstrates good understanding. Patient does lightly use bilateral upper extremity on chair for guidance, no push/pull noted. Cues for upright posture during ambulation. Vitals monitored during gait. Cues for deep breathing as appropriate. Cues for pacing as appropriate. Ambulated in mathur without device, 300ft. No loss of balance or physical assist required. Educated on walking program and increasing distance as able until able to ambulate 20-30 minutes. Educated to use rail with stair negotiation, limit negotiation to prevent fatigue. Total Timed Code Treatment Minutes: 14 Total Treatment Time (minutes): 14 SUBJECTIVE: Current Hospital Course: Chart reviewed and no significant medical updates relevant to therapy were noted Reason for Physical Therapy Consult : treatment Relevant Past Medical History: CAD, HTN, R knee and B hip arthritis, Patient Report: I'm doing better. agreeable to physical therapy. 5/10 incisional pain. 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 Pt rptgrace had low endurance and slept a lot before the surgery. Used his cane occasionally when his knees bothered him OBJECTIVE: CURRENT FUNCTIONAL STATUS: Current Functional Mobility Assist Level Additional Information Rolling Supine to Sit Sit to Supine Scooting Sit to Stand Stand By Assistance Stand to Sit Stand By Assistance Bed to Chair Toilet/Commode Gait Stand By Assistance Gait Device: None Gait Distance (feet): 300ft Stairs Curb Step Car Transfer General Deviations/Observations : Leonora decreased;Lateral sway increased;Non-functiona l gait speed;Step length decreased;Wide base of support Balance: Static Sitting;Dynamic Sitting;Static Standing;Dynamic Standing Static Sitting Balance: Good Patient able to maintain balance without handhold support, limited postural sway Dynamic Sitting Balance: Good Patient accepts moderate challenge, able to maintain balance while picking up object off floor Static Standing Balance: Good Patient able to maintain balance without handhold support, limited postural sway Dynamic Standing Balance: Good Patient accepts moderate challenge, able to maintain balance while picking up object off floor -HLM: 8: Walk 250 feet or more Please see discipline specific clinical documentation flowsheet for complete details for this therapy evaluation/treatment. SIGNATURE: Miladis Weir PT PATIENT NAME: Yari Lopez DATE: March 14, 2020 TIME: 12:25 PM [facility] CONSULTon 03-13-2020 CONSULT HNO ID: [id number] Author: Mercedes Davis Service: Endocrinology Author Type: Physician Type: Consults Filed: 03/14/2020 8:51 PM Note Text: [facility] - Consultation PATIENT NAME: YARI LOPEZ CSN: [id number] DATE OF : 1955 SEX/AGE: M/64 PATIENT TYPE: I HOSP SVC: ORCA LOCATION: [id number] DATE OF SERVICE: 03/13/2020 TIME OF SERVICE: 10:45 AM REFERRING PHYSICIAN: MIAH HINSON REASON FOR CONSULTATION: Postoperative hyperglycemia. HISTORY OF PRESENT ILLNESS: The patient is a 64-year-old male, who was admitted for CABG. The patient had 4-blood vessel bypass on 03/08/2020. The patient was on IV insulin infusion and then has been on sliding scale insulin for hyperglycemia. His blood sugars in the morning are good, but they are going up to over 150s after eating and it was 181 and 193 yesterday. The patient has no known history of diabetes. He was told years ago in 70s that he had borderline blood sugar and at that time he was lean. His physical exam done with his PCP every year and he has not been told he has high blood sugars. The patient had a HbA1c of 6.1 on 02/10 when he had the preop labs. Postoperatively, his blood sugars have been high and he is on sliding scale insulin currently. He was on IV insulin infusion. Patient had a random blood sugar of 143 on 02/10. It is not clear whether it was a fasting lab or not. Patient had a fasting blood sugar of 75 in 2018. He does not have any family history of diabetes. The patient has not noticed any changes in his weight. He does not have any dry mouth or increased thirst, blurred vision. He does not have numbness and tingling in his feet. He has not seen an eye doctor for 6 years. PAST MEDICAL HISTORY: History of coronary artery disease, history of hyperlipidemia, history of hypertension, history of degenerative joint disease, history of irritable bowel syndrome. The patient is an ex-smoker. FAMILY HISTORY: The patient is not aware of any family members with diabetes. SOCIAL HISTORY: The patient was a 1-1/2 pack a day smoker from 1964 up to December of 2019. He drinks 2 beers every day. REVIEW OF SYSTEMS: As per History of Present Illness; otherwise, negative. PHYSICAL EXAMINATION: GENERAL: The patient is lying and slightly sitting in chair, no acute distress. VITAL SIGNS: Height 6 feet, weight 232 pounds, temperature 36.7, BP 140/83, heart rate is 89 and regular. SKIN: Warm and dry. EYES: Pupils appear round. NECK: Supple. No goiter palpable on thyroid exam. LUNGS: Fair air entry. Clear to auscultation. CVS: Regular rate and rhythm. ABDOMEN: Soft, nontender. EXTREMITIES: There is trace edema. The patient has stockings on both feet. He has small calluses on the side of his fifth metatarsal and the first toe. No ulcerations. NEUROLOGICAL: He is alert and oriented x3. Strength is normal. LABORATORY DATA: Sodium 132, potassium 4.1, chloride 96, CO2 of 26, BUN 17, creatinine 0.77. Blood sugars yesterday 117, 193, 181, and 164, this morning 136. CLINICAL IMPRESSION: 1. Diabetes mellitus type 2, the patient had a HbA1c of 6.1 on 02/10 on the preop labs. He may have had impaired glucose tolerance prior to surgery and diabetes was precipitated after his coronary artery bypass graft. The patient is on sliding scale insulin. He is currently on a regular diet and is having pancakes with regular syrup and also sweet tea and applesauce, which may be contributing to high blood sugars. 2. Status post coronary artery bypass graft x4 on 03/08. 3. Hypertension, controlled. 4. Hyperlipidemia, on treatment. RECOMMENDATION: 1. Discussed with the patient the pathophysiology of hyperglycemia and diabetes, importance of blood sugar control in postoperative period. 2. We will continue to monitor the blood sugars before meals and at bedtime. 3. We will change the diet to carb-controlled diet. 4. We will continue sliding scale insulin before meals only for blood sugars greater than 150. 5. To try to wean off insulin. I will start him on glimepiride 0.5 mg daily and metformin ER 500 mg 1 daily. We will give the first dose now. 6. We will get diabetic education to follow the patient and we will follow the patient with you. Mercedes Davis MD Endocrinology SM:modl /[id number] [facility] CONSULT HNO ID: [id number] Author: Mercedes Davis Service: Endocrinology Author Type: Physician Type: Consults Filed: 03/13/2020 10:44 AM Note Text: I have reviewed the patient's medical record in detail. Consult note dictated. See oral agent and sliding scale insulin orders. Carb control diet. Mercedes Davis MD [facility] Comprehensive Metabolic Pane oskar 03-13-2020 Albumin [Mass/Vol] 3.2 g/dL Low 3.9-4.9 [facility] Comment on above: Performed By: #### A SABAS #### [address] [address] ALP [Catalytic activity/Vol] 57 U/L Normal 38-113 [facility] Comment on above: Performed By: #### A SABAS #### [address] [address] ALT [Catalytic activity/Vol] 18 U/L Normal 10-54 [facility] Comment on above: Performed By: #### A SABAS #### [address] [address] Anion gap [Moles/Vol] 10 mmol/L Normal 9-18 [facility] Comment on above: Performed By: #### A SABAS #### [address] [address] AST [Catalytic activity/Vol] 22 U/L Normal 14-40 [facility] Comment on above: Performed By: #### A SABAS #### [address] [address] Bilirubin [Mass/Vol] 0.3 mg/dL Normal 0.2-1.3 [facility] Comment on above: Performed By: #### A SABAS #### [facility] [address] [place], [place] [address] Calcium [Mass/Vol] 8.8 mg/dL Normal 8.5-10.2 [facility] Comment on above: Performed By: #### A SABAS #### [facility] [address] [place], [place] [address] Chloride [Moles/Vol] 96 mmol/L Low 97-105 [facility] Comment on above: Performed By: #### A SABAS #### [facility] [address] [place], [place] [address] CO2 Blood 26 mmol/L Normal 22-30 [facility] Comment on above: Performed By: #### A SABAS #### [facility] [address] [place] [address] Creatinine [Mass/Vol] 0.77 mg/dL Normal 0.73-1.22 [facility] Comment on above: Performed By: #### A SABAS #### [facility] [address] [place], [place] [address] Glucose [Mass/Vol] 127 mg/dL High 74-99 [facility] Comment on above: Result Comment: The [place] [employer] (ADA) provides guidance for cutoff values for fasting glucose and random glucose. The ADA defines fasting as no caloric intake for at least 8 hours.Fasting plasma glucose results between 100 to 125 [...] Reference: Standards of Medical Care in Diabetes 2016; [place] [employer]. Diabetes Care. 2016;39(Suppl 1). Performed By: #### A SABAS #### [facility] [address] [place], [place] [address] Potassium [Moles/Vol] 4.1 mmol/L Normal 3.7-5.1 [facility] Comment on above: Performed By: #### A SABAS #### [facility] [address] [place], [place] [address] Protein [Mass/Vol] 5.9 g/dL Low 6.3-8.0 [facility] Comment on above: Performed By: #### A SABAS #### [facility] [address] [place], [place] [address] Sodium [Moles/Vol] 132 mmol/L Low 136-144 [facility] Comment on above: Performed By: #### A SABAS #### [facility] [address] [place], [place] [address] Urea nitrogen [Mass/Vol] 17 mg/dL Normal 9-24 [facility] Comment on above: Performed By: #### A SABAS #### [facility] [address] [place], [place] [address] MDRD GFRon 03-13-2020 GFR/1.73 sq M predicted among non-blacks MDRD (S/P/Bld) [Vol rate/Area] mL/min/{1.73_m2} Normal >60mL/min/1. 73m2 [facility] Comment on above: Result Comment: If t he patient is , multiply the result by 1.210. Performed By: #### T &S #### [facility] [address] [place], [place] [address] PROGRESSon 03-13-2020 PROGRESS HNO ID: [id number] Author: Marzena Brewer (Pa) Service: Cardiovascular Surgery Author Type: Physician Tool Technician Type: Progress Notes Filed: 03/13/2020 11:11 AM Note Text: CARDIOTHORACIC SURGERY POSTOP PROGRESS NOTE SERVICE DATE: 03/13/2020 SERVICE TIME: 8:15 AM Subjective S/P SURGERY: Procedure(s) (LRB): BYPASS GRAFT ARTERY CORONARY OFF PUMP TWO ARTERIAL GRAFTS (N/A) BYPASS GRAFT ARTERY CORONARY ON-PUMP USING VENOUS GRAFT(S) AND ARTERIAL GRAFT(S); TWO VENOUS GRAFTS (N/A) ENDOSCOPIC HARVEST VEIN FOR CORONARY ARTERY BYPASS PROCEDURE (N/A) DATE OF SURGERY: 03/08/2020 POSTOP DAY #4 LOS: 5 INTERVAL EVENTS / PERTINENT ROS: Patient seen and evaluated in chair. States he still has episodes of feeling short of breath. Also complains of shoulder pain. Denies chest pain and abdominal pain. No events overnight. Will be discharged after endocrine sees. Objective Admission Weight: 102.5 kg (226 lb) BP 140/83 Pulse 89 Temp 36.7 ?C (98.1 ?F) (Oral) Resp 18 Ht 182.9 cm (6') Wt 105.5 kg (232 lb 9.6 oz) SpO2 89% BMI 31.55 kg/m? Body surface area is 2.32 meters squared. Min/Max/Average Temperature AND Blood Pressure: Temp (24hrs), Av.6 ?C (97.9 ?F), Min:36.3 ?C (97.3 ?F), Max:36.8 ?C (98.2 ?F) Systolic (24hrs), Av , Min:99 , Max:140 Diastolic (24hrs), Av, Min:63, Max:83 Intake/Output Summary (Last 24 hours) at 03/13/2020 0815 Last data filed at 03/13/2020 0438 Gross per 24 hour Intake 360 ml Output ? Net 360 ml TELEMETRY: normal sinus rhythm PHYSICAL EXAM: General Appearance: Well developed and well nourished appearance. No acute distress. Midsternal AND SVG incision dry AND intact, without redness, drainage or edema. Head/Eyes: Sclera clear, normal conjunctiva. EOMI Lungs: respiratory effort: normal and clear on left. Wheezes throughout on right Heart: regular rhythm and S1, S2 normal Abdomen: soft, non-tender and bowel sounds present Neurologic/Psychiatric: Oriented to person, place, time. Normal affect. No gross focal neurologic deficits. Extremities: edema: non-pitting Lines, Drains, and Airways Line Peripheral 03/08/20 Left Wrist 16 Gauge 5 days DATA: Diagnostic tests reviewed for today's visit: Chest X-RAY: Central pulmonary vascular prominence with interstitial and hazy opacities, more prominent compared to prior, consider edema. Differential infection Recent Labs 03/13/20 0615 03/12/20 0447 03/11/20 0357 RBC -- 3.03* 3.18* WBC -- 9.46* 13.35* HB -- 9.8* 10.0* HCT -- 28.1* 28.9* PLT -- 255 236 NA 132* 135* 130* K 4.1 3.8 4.3 CHLOR 96* 96* 92* CO2 26 28 27 BUN 17 18 14 CREAT 0.77 0.78 0.71* GLUC 127* 107* 122* CA 8.8 9.0 8.8 TPROT 5.9* -- -- TBILI 0.3 -- -- ALKPHOS 57 -- -- ALT 18 -- -- AST 22 -- -- ANION 10 11 11 Assessment/Plan CAD s/p CABG x 4 -(kitchen-lad; luisa-diag; svg-om. svg-rpl; evh) -POD #?5 -Medical management with ASA 162, Lipitor 80mg, Lopressor?increased to 100mg BID?with hold parameters -Pain control per ERAS protocol -Lasix 40mg IV?x 1 then 20mg IV x 1 this afternoon -Heart healthy diet, bowel regimen ordered; nutrition on consult -Mobilize as tolerated ? Anticipated Respiratory Insufficiency -Multifactorial including emphysematous lung tissue, post operative ? -Currently 90's% on?RA -Scheduled?and PRN duonebs, IS, deep breathing, still wheezing ? Anticipated Acute Blood Loss Anemia -Last HANDH stable at 9.8/28.1 -No indication for transfusion at this time ? Hyperglycemia -HA1C 6.1 -Sliding scale still needed with QACHS glucose checks -Consult to endo for home going recs ? Hypertension -SBP currently in the 100s -Increase metoprolol -Continue losartan to home dose 50mg daily ? Leukocytosis -Lase WBC is 9.46 -Likely reactive; afebrile ? DVT ppx -Lovenox SQ -SCDs/Irina Hose ? HLD -Lipitor 80mg daily ? Hx of Anxiety -Resume home Wellbutrin dose ? GI ppx -PO protonix ? Tobacco Abuse -Continued cessation education ? Dispo:? -Discharge to home with homecare tomorrow (03/14) ? Planned in collaboration with Dr. Hinson Tests/Labs Ordered: 1. Chest X-ray 2. BMP SIGNATURE: Marzena Brewer PA-C PATIENT NAME: Yari Lopez DATE: March 13, 2020 TIME: 8:15 AM PAGER/CONTACT #:[phone] ETX [id number] Normal [facility] XR CHEST 2V FRONTAL/LATon XR CHEST 2V FRONTAL/LAT * * *Final Report* * * DATE OF EXAM: Mar 13 2020 8:33AM [id number] - XR CHEST 2V FRONTAL/LAT / PROCEDURE REASON: Post-operative / post-procedure assessment, symptomatic * * * * Physician Interpretation * * * * EXAMINATION: CHEST RADIOGRAPH (2 VIEW FRONTAL & LATERAL) CLINICAL HISTORY: Post-operative / post-procedure assessment, symptomatic MQ: [id number] EXAM DATE/TIME: 03/13/2020 8:33 AM COMPARISON: 03/12/2020 RESULT: Lines, tubes, and devices: None. Lungs and pleura: Central pulmonary vascular prominence with interstitial and hazy opacities, more prominent compared to prior. Bibasilar atelectasis. No pneumothorax or substantial pleural effusion. Cardiomediastinal silhouette: Stable Bones and soft tissues: Status post median sternotomy with normally aligned sternal wires. IMPRESSION: Central pulmonary vascular prominence with interstitial and hazy opacities, more prominent compared to prior, consider edema. Differential infection Hand Roller: PSCB Transcribe Date/Time: Mar 13 2020 8:47A Dictated by : CHRIS MOON MD This examination was interpreted and the report reviewed and electronically signed by: CHRIS MOON MD on Mar 13 2020 8:49AM EST Normal [facility] Basic Metabolic Panelon 02-17 Anion gap [Moles/Vol] 11 mmol/L Normal 9-18 [facility] Comment on above: Performed By: #### A SABAS #### [facility] [address] [place], [place] [address] Calcium [Mass/Vol] 9.0 mg/dL Normal 8.5-10.2 [facility] Comment on above: Performed By: #### A SABAS #### [facility] [address] [place], [place] [address] Chloride [Moles/Vol] 96 mmol/L Low 97-105 [facility] Comment on above: Performed By: #### A SABAS #### [facility] [address] [place], [place] [address] CO2 Blood 28 mmol/L Normal 22-30 [facility] Comment on above: Performed By: #### A SABAS #### [facility] [address] [place], [place] [address] Creatinine [Mass/Vol] 0.78 mg/dL Normal 0.73-1.22 [facility] Comment on above: Performed By: #### A SABAS #### [facility] [address] [place], [place] [address] Glucose [Mass/Vol] 107 mg/dL High 74-99 [facility] Comment on above: Result Comment: The [place] Diabetes [employer] (ADA) provides guidance for cutoff values for fasting glucose and random glucose. The ADA defines fasting as no caloric intake for at least 8 hours.Fasting plasma glucose results between 100 to 125 [...] Reference: Standards of Medical Care in Diabetes 2016; [place] [employer]. Diabetes Care. 2016;39(Suppl 1). Performed By: #### A SABAS #### [facility] [address] [place], [place] [address] Potassium [Moles/Vol] 3.8 mmol/L Normal 3.7-5.1 [facility] Comment on above: Performed By: #### A SABAS #### [facility] [address] [place], [place] [address] Sodium [Moles/Vol] 135 mmol/L Low 136-144 [facility] Comment on above: Performed By: #### A SABAS #### [facility] [address] [place], [place] [address] Urea nitrogen [Mass/Vol] 18 mg/dL Normal 9-24 [facility] Comment on above: Performed By: #### A SABAS #### [facility] [address] [place], [place] [address] Hemogramon 03-12-2020 Erythrocyte distribution width (RBC) [Ratio] 14.2 % Normal 11.6-14.4 [facility] Comment on above: Performed By: #### M RSA #### [facility] [address] [place] [address] Hematocrit (Bld) [Volume fraction] 28.1 % Low 40.1-51.0 [facility] Comment on above: Performed By: #### M RSA #### [facility] [address] [place], [place] [address] Hemoglobin (Bld) [Mass/Vol] 9.8 g/dL Low 13.7-17.5 [facility] Comment on above: Performed By: #### M RSA #### [facility] [address] [place] [address] MCH (RBC) [Entitic mass] 32.3 pg High 25.7-32.2 [facility] Comment on above: Performed By: #### M RSA #### [place] [address] MCHC (RBC) [Mass/Vol] 34.9 % Normal 32.3-36.5 [facility] Comment on above: Performed By: #### M RSA #### [facility] [address] [place] [address] MCV (RBC) [Entitic vol] 92.7 fL Normal 83.2-95.6 [facility] Comment on above: Performed By: #### M RSA #### [place] [address] Nucleated RBC (Bld) [#/Vol] 0.03 thou/cmm High 0.00-0.01 [facility] Comment on above: Performed By: #### M RSA #### [facility] [address] [place] [address] Nucleated RBC/100 WBC (Bld) [Ratio] 0.3 % High 0.0-0.2 [facility] Comment on above: Performed By: #### M RSA #### [facility] [address] [place] [address] Platelet mean volume (Bld) [Entitic vol] 10.3 fL Normal 8.7-12.0 [facility] Comment on above: Performed By: #### M RSA #### [facility] [address] [place], [place] [address] Platelets (Bld) [#/Vol] 255 thou/cmm Normal 141-365 [facility] Comment on above: Performed By: #### M RSA #### [facility] [address] [place], [place] [address] RBC (Bld) [#/Vol] 3.03 mil/cmm Low 4.63-6.08 [facility] Comment on above: Performed By: #### M RSA #### [facility] [address] [place], [place] [address] RDW SD 47.3 fl High 36.1-45.8 [facility] Comment on above: Performed By: #### M RSA #### [facility] [address] [place], [place] [address] WBC (Bld) [#/Vol] 9.46 thou/cmm High 4.23-9.07 [facility] Comment on above: Performed By: #### M RSA #### [facility] [address] [place], [place] [address] NURSING PROGon 03-12-2020 NURSING PROG HNO ID: [id number] Author: Minerva (Rn) ELIEZER Ramon Service: Nursing Author Type: Registered Nurse Type: Nursing Progress Note Filed: 03/12/2020 9:12 AM Note Text: Pt states he has had 3 to 4 bowel movements since yesterday. BM not witnessed. Advised pt to let staff know next time has BM so it can be witnessed and charted. Will continue to monitor. Normal [facility] PROGRESSon 03-12-2020 PROGRESS HNO ID: [id number] Author: Jana Cerda Service: Pulmonary Disease Author Type: Nurse Practitioner Type: Progress Notes Filed: 03/12/2020 9:33 AM Note Text: Attestation signed by Prosper Pena at 03/12/2020 4:42 PM Attending Note I evaluated the patient and personally participated in the linder components. I agree with the CHICKEN TENDER's findings and plan as documented. No acute events overnight. On room air. Ambulated yesterday without difficulty. Denies dyspnea/cough/sputum. Chest pain controlled. Wbc 9.46 Cr 0.78 CXR: Mild interstitial prominence which may represent CHF. Bibasilar subsegmental atelectasis. Assessment: Acute anticipated post op respiratory insufficiency, improving S/p CABG POD#4 Mild COPD CAD Plan: Continue IS/increase ambulation Bronchodiltors Pulmonary f/unit(s) D/c planning Signature: Prosper Pena MD Date: 03/12/2020 Time: 4:39 PM PULMONARY PROGRESS NOTE [facility] SERVICE DATE: March 12, 2020 SERVICE TIME: 9:27 AM Subjective Patient states he feels good this morning and everyday feeling a little better. Patient denies shortness of breath, wheezing, cough, phlegm, chest pain, fevers or chills. Currently on room OBJECTIVE Current Facility-Administered Medications Medication Dose Route Frequency Provider Last Rate Last Dose - losartan 50 mg tab(s) (COZAAR) 50 mg ORAL DAILY Miah Hinson - metoprolol tartrate (short acting) 50 mg tab(s) (LOPRESSOR) 50 mg ORAL q 12 H Marzena (Pa) Osman 50 mg at 03/11/202027 - NaCl 0.9% 2-10 mL 2-10 mL INTRAVENOUS q 12 H Marzena (Pa) Osman 10 mL at 03/11/201805 - melatonin 3 mg tab(s) 3 mg ORAL HS PRN Marzena (Pa) Osman - methyl salicylate 15% - menthol 10% topical cream TOPICAL q 8 H PRN Akbar (Res) DO Gavino - benzocaine-menthoL 1 Lozenge (CEPACOL) 1 Lozenge MUCOUS MEMBRANE (TOPICAL MOUTH AND THROAT) q 2 H PRN Marzena (Pa) Osman 1 Lozenge at 03/10/20 1012 - pantoprazole DR 40 mg tab(s) (PROTONIX) 40 mg ORAL DAILY (6 AM) Marzena (Pa) Osman 40 mg at 03/12/20 0447 - atorvastatin 80 mg tab(s) (LIPITOR) 80 mg ORAL AT BEDTIME Marzena (Pa) Osman 80 mg at 03/11/202027 - oxyCODONE IR 5-10 mg tab(s) (ROXICODONE) 5-10 mg ORAL q 3 H PRN Marzena (Pa) Osman 5 mg at 03/11/202028 - dextrose 40 % 15 g 15 g ORAL PRN Marzena (Pa) Osman Or - glucagon 1 mg injection (GLUCAGEN) 1 mg INTRAMUSCULAR PRN Marzena (Pa) Osman Or - dextrose 50% in water 25 mL syringe 12.5 g INTRAVENOUS PRN Marzena (Pa) Osman - insulin lispro pen (rapid acting) (HumaLOG KWIKPEN) SUBCUTANEOUS w MEALS Marzena (Pa) Osman 1 Units at 03/11/201803 - insulin lispro pen (rapid acting) (HumaLOG KWIKPEN) SUBCUTANEOUS AT BEDTIME Marzena (Pa) Osman 1 Units at 03/11/202027 - albuterol 2.5 mg /3 mL (0.083 %) 2.5 mg (PROVENTIL) 2.5 mg INHALATION q 2 H PRN Marzena (Pa) Osman 2.5 mg at 03/09/20 1829 - aspirin 162 mg tab(s) 162 mg ORAL DAILY Marzena (Pa) Osman 162 mg at 03/11/20 0900 - acetaminophen 1,000 mg tab(s) (TYLENOL) 1,000 mg ORAL/FEEDING TUBE q 6 H Marzena (Pa) Osman 1,000 mg at 03/12/20 0627 - buPROPion XL 300 mg tab(s) (WELLBUTRIN XL) 300 mg ORAL DAILY Marzena (Pa) Osman 300 mg at 03/11/20 0815 - cholecalciferol 2,000 Units tab(s) (VITAMIN D3) 2,000 Units ORAL DAILY Marzena (Pa) Osman 2,000 Units at 03/11/20 0815 - enoxaparin 40 mg injection (LOVENOX) 40 mg SUBCUTANEOUS DAILY Marzena (Pa) Osman 40 mg at 03/11/20 0811 - lidocaine 4 % 1 Patch (SALONPAS) 1 Patch TRANSDERMAL DAILY Marzena (Pa) Osman 1 Patch at 03/11/20 0816 And - lidocaine patch - REMOVE OTHER AT BEDTIME Marzena (Pa) Osman And - lidocaine - VERIFY PATCH OTHER q 8 H Marzena (Pa) Osman - polyethylene glycol 3350 17 g packet (MIRALAX, GLYCOLAX) 17 g ORAL DAILY Marzena (Pa) Osman 17 g at 03/11/20 0900 - senna-docusate 8.6-50 mg 1 tablet (SENNA-S) 1 tablet ORAL BID Marzena (Pa) Osman 1 tablet at 03/11/202027 - NaCl 0.9% 250 mL iv bolus 250 mL INTRAVENOUS Post-Op PRN Marzena (Pa) Osman 250 mL at 03/08/202039 - gabapentin 200 mg cap(s) (NEURONTIN) 200 mg ORAL q 12 H Marzena (Pa) Osman 200 mg at 03/11/202028 - magnesium oxide 400 mg tab(s) (MAG-OX) 400 mg ORAL DAILY Marzena (Pa) Osman 400 mg at 03/11/20815 - bisacodyl 10 mg suppository (DULCOLAX) 10 mg RECTAL DAILY PRN Marzena (Pa) Osman INTAKE AND OUTPUT Intake/Output Summary (Last 24 hours) at 03/12/2020 0927 Last data filed at 03/11/2020 1100 Gross per 24 hour Intake ? Output 700 ml Net -700 ml New Radiology Films: New Micro: New Labs: BMP: Glucose (mg/dL) Date Value 03/12/2020 107 Potassium (mmol/L) Date Value 03/12/2020 3.8 Sodium (mmol/L) Date Value 03/12/2020 135 Chloride (mmol/L) Date Value 03/12/2020 96 CO2 (mmol/L) Date Value 03/12/2020 28 Creatinine (mg/dL) Date Value 03/12/2020 0.78 BUN (mg/dL) Date Value 03/12/2020 18 Anion Gap (mmol/L) Date Value 03/12/2020 11 Calcium (mg/dL) Date Value 03/12/2020 9.0 CBC: Hemoglobin Date Value 02/11/2020 13.8 g/dL 12/25/2010 14.1 G/DL HGB (g/dL) Date Value 03/12/2020 9.8 03/11/2020 10.0 03/10/2020 10.9 Hematocrit (%) Date Value 03/12/2020 28.1 03/11/2020 28.9 03/10/2020 31.1 WBC (thou/cmm) Date Value 03/12/2020 9.46 03/11/2020 13.35 03/10/2020 16.21 Vital Signs 03/11/20 1957 03/11/20 2352 03/12/20 0429 03/12/20 0825 BP: 130/63 146/71 143/65 130/66 Pulse: 90 77 85 90 Resp: 16 16 18 16 Temp: 37.4 ?C (99.3 ?F) 37 ?C (98.6 ?F) 36.9 ?C (98.4 ?F) 36.3 ?C (97.3 ?F) TempSrc: Oral Oral Oral Oral SpO2: 95% 93% 94% 92% Weight: 104.2 kg (229 lb 12.8 oz) Height: PHYSICAL EXAM: Vitals: Reviewed above. Patient is on Room air GENERAL: AAOx3, very pleasant, resting up in bedside recliner, NAD RESPIRATORY: CTAB. Respirations are even AND unlabored at rest. No wheezing, accessory muscle use, pursed lip breathing or conversational dyspnea. CARDIOVASCULAR: Normal S1S2, RRR. No edema. GI: Abdomen soft, nondistended, nontender, bowel sounds present EXTREMITIES: No clubbing or cyanosis. Moves all extremities equal ? Assessment and Plan: ? 1) Anticipated Post-op respiratory insufficiency: patient stable on room air -Continue PRN Albuterol, encourage IS and Acapella hourly, encourage OOB and ambulation Will need ambulatory SpO2 checked prior to discharge. 2) Mild COPD (LNT367%): Stable not in exacerbation - continue PRN Albuterol, Recommend OP follow-up with our office to establish pulmonary care. Home on PRN Albuterol. 3) Status Post CABG POD#4: Stable - CTS following and managing 4) CAD: 5) Obesity: BMI 31.17 - patient could benefit from weight loss 6) MMP Per primary 7) Discharge Planning: From Pulmonary/CC standpoint stable will sign off call if needed. SIGNATURE: Jana Cerda APRN.CHICKEN TENDER PATIENT NAME: Yari Lopez DATE: March 12, 2020 TIME: 9:27 AM PAGER/CONTACT #: [phone] Teri [facility] PROGRESS HNO ID: [id number] Author: Marzena Brewer (Pa) Service: Cardiovascular Surgery Author Type: Physician Tool Technician Type: Progress Notes Filed: 03/12/2020 9:39 AM Note Text: CARDIOTHORACIC SURGERY POSTOP PROGRESS NOTE SERVICE DATE: 03/12/2020 SERVICE TIME: 8:04 AM Subjective S/P SURGERY: Procedure(s) (LRB): BYPASS GRAFT ARTERY CORONARY OFF PUMP TWO ARTERIAL GRAFTS (N/A) BYPASS GRAFT ARTERY CORONARY ON-PUMP USING VENOUS GRAFT(S) AND ARTERIAL GRAFT(S); TWO VENOUS GRAFTS (N/A) ENDOSCOPIC HARVEST VEIN FOR CORONARY ARTERY BYPASS PROCEDURE (N/A) DATE OF SURGERY: 03/08/2020 POSTOP DAY #4 LOS: 4 INTERVAL EVENTS / PERTINENT ROS: Patient seen and examined in chair. No complaints. Denies chest pain, shortness of breath, and abdominal pain. No events overnight. Objective Admission Weight: 102.5 kg (226 lb) BP 143/65 Pulse 85 Temp 36.9 ?C (98.4 ?F) (Oral) Resp 18 Ht 182.9 cm (6') Wt 104.2 kg (229 lb 12.8 oz) SpO2 94% BMI 31.17 kg/m? Body surface area is 2.3 meters squared. Min/Max/Average Temperature AND Blood Pressure: Temp (24hrs), Av.9 ?C (98.5 ?F), Min:36.5 ?C (97.7 ?F), Max:37.4 ?C (99.3 ?F) Systolic (24hrs), Av , Min:94 , Max:146 Diastolic (24hrs), Av, Min:54, Max:75 Intake/Output Summary (Last 24 hours) at 03/12/2020 0804 Last data filed at 03/11/2020 1100 Gross per 24 hour Intake 360 ml Output 1200 ml Net -840 ml TELEMETRY: normal sinus rhythm PHYSICAL EXAM: General Appearance: Well developed and well nourished appearance. No acute distress. Midsternal AND SVG incision dry AND intact, without redness, drainage or edema. Head/Eyes: Sclera clear, normal conjunctiva. EOMI Lungs: wheezes and respiratory effort: normal Heart: regular rhythm and S1, S2 normal Abdomen: soft, non-tender and bowel sounds present Neurologic/Psychiatric: Oriented to person, place, time. Normal affect. No gross focal neurologic deficits. Extremities: no edema Lines, Drains, and Airways Line Peripheral 03/08/20 0645 Short Right Hand 20 Gauge 4 days Peripheral 03/08/20 Left Wrist 16 Gauge 4 days DATA: Diagnostic tests reviewed for today's visit: Chest X-RAY: Mild interstitial prominence which may represent CHF. ?Bibasilar subsegmental atelectasis Recent Labs 03/12/20 0447 03/11/20 0357 03/10/20 0400 RBC 3.03* 3.18* 3.38* WBC 9.46* 13.35* 16.21* HB 9.8* 10.0* 10.9* HCT 28.1* 28.9* 31.1* PLT 255 236 242 NA 135* 130* 127* K 3.8 4.3 4.7 CHLOR 96* 92* 91* CO2 28 27 24 BUN 18 14 16 CREAT 0.78 0.71* 0.87 GLUC 107* 122* 166* CA 9.0 8.8 8.7 MG -- -- 1.9 ANION 11 11 12 Assessment/Plan CAD s/p CABG x 4 -(kitchen-lad; luisa-diag; svg-om. svg-rpl; evh) -POD #?4 -Medical management with ASA 162, Lipitor 80mg, Lopressor increased to 50mg BID with hold parameters -Pain control per ERAS protocol -Lasix 20mg IV?x 2 -Heart healthy diet, bowel regimen ordered; nutrition on consult -Mobilize as tolerated ? Anticipated Respiratory Insufficiency -Multifactorial including emphysematous lung tissue, post operative ? -Currently 94% on?2L NC; continue to wean -Scheduled?and PRN duonebs, IS, deep breathing, still wheezing ? Anticipated Acute Blood Loss Anemia -Current HANDH stable at 9.8/28.1 -No indication for transfusion at this time -Continue to monitor ? Hyperglycemia -HA1C 6.1 -Sliding scale with QACHS glucose checks -Consider consult endo if hyperglycemia is persistent ? Hypertension -Currently in the 120-140s -Increase metoprolol -Increase losartan to home dose 50mg daily ? Leukocytosis -Trending down 16.21>>13.35>>9.46 -Likely reactive; afebrile -Continue to monitor ? DVT ppx -Lovenox SQ -SCDs/Irina Hose ? HLD -Lipitor 80mg daily ? Hx of Anxiety -Resume home Wellbutrin dose ? GI ppx -PO protonix ? Tobacco Abuse -Continued cessation education ? Dispo: -Discharge to home with homecare when no longer requiring oxygen Planned in collaboration with Dr. Hinson and CVICU Tests/Labs Ordered: 1. Chest X-ray 2. CBC 3. CMP SIGNATURE: Marzena Brewer PA-C PATIENT NAME: Yari Lopez DATE: March 12, 2020 TIME: 8:04 AM PAGER/CONTACT #:[phone] ETX [id number] Normal [facility] XR CHEST 1V FRONTALon 2019 XR CHEST 1V FRONTAL * * *Final Report* * * DATE OF EXAM: Mar 12 2020 7:34AM AKX [id number] - XR CHEST 1V FRONTAL / PROCEDURE REASON: Post-operative / post-procedure assessment, asymptomatic * * * * Physician Interpretation * * * * EXAMINATION: CHEST RADIOGRAPH (SINGLE VIEW AP OR PA) CLINICAL HISTORY: Post-operative / post-procedure assessment, asymptomatic MQ: XC1_5 Comparison: 03/11/2020 RESULT: Lines, tubes, and devices: Right IJ central line has been removed in the interval. Lungs and pleura: Mild to moderate interstitial opacities of the lungs appear unchanged. Bibasilar subsegmental atelectasis. No pneumothorax is seen Cardiomediastinal silhouette: Normal cardiomediastinal silhouette. Other: . IMPRESSION: Mild interstitial prominence which may represent CHF. Bibasilar subsegmental atelectasis. Hand Roller: PSCB Transcribe Date/Time: Mar 12 2020 7:54A Dictated by : FAZAL CROCKER MD This examination was interpreted and the report reviewed and electronically signed by: FAZAL CROCKER MD on Mar 12 2020 7:55AM EST Normal [facility] Basic Metabolic Panelon 04- Anion gap [Moles/Vol] 11 mmol/L Normal 9-18 [facility] Comment on above: Performed By: #### M RSA #### [facility] [address] [place], [place] [address] Calcium [Mass/Vol] 8.8 mg/dL Normal 8.5-10.2 [facility] Comment on above: Performed By: #### M RSA #### [facility] [address] [place], [place] [address] Chloride [Moles/Vol] 92 mmol/L Low 97-105 [facility] Comment on above: Performed By: #### M RSA #### [facility] [address] [place], [place] [address] CO2 Blood 27 mmol/L Normal 22-30 [facility] Comment on above: Performed By: #### M RSA #### [facility] [address] [place], [place] [address] Creatinine [Mass/Vol] 0.71 mg/dL Low 0.73-1.22 [facility] Comment on above: Performed By: #### M RSA #### [facility] [address] [place], [place] [address] Glucose [Mass/Vol] 122 mg/dL High 74-99 [facility] Comment on above: Result Comment: The [place] Diabetes [employer] (ADA) provides guidance for cutoff values for fasting glucose and random glucose. The ADA defines fasting as no caloric intake for at least 8 hours.Fasting plasma glucose results between 100 to 125 [...] Reference: Standards of Medical Care in Diabetes 2016; [place] [employer]. Diabetes Care. 2016;39(Suppl 1). Performed By: #### M RSA #### [facility] [address] [place], [place] [address] Potassium [Moles/Vol] 4.3 mmol/L Normal 3.7-5.1 [facility] Comment on above: Performed By: #### M RSA #### [facility] [address] [place], [place] [address] Sodium [Moles/Vol] 130 mmol/L Low 136-144 [facility] Comment on above: Performed By: #### M RSA #### [facility] [address] [place], [place] [address] Urea nitrogen [Mass/Vol] 14 mg/dL Normal - [facility] Comment on above: Performed By: #### M RSA #### [place] [id number] CASE MANAGEMon 03-11-2020 CASE MANAGEM HNO ID: [id number] Author: Nicole (Rn) ELIEZER Muller Service: ? Author Type: Registered Nurse Type: Care Mgt Progress Note Filed: 03/11/2020 9:59 AM Note Text: CARE MANAGEMENT PROGRESS NOTE SERVICE DATE: 03/11/2020 SERVICE TIME: 9:58 AM LOS: 3 days [place] of Choice Given: Yes Level of Care Discussed: Home Care Financial Disclosure Provided: Yes Financial Disclosure Comments: [facility] affiliation with [facility] Provider List: Home Care Provider list within the patient's requested geographic area shared with the patient/family: No Quality and resource use metrics shared with the patient that are relevant to the patient's goals of care and treatment preferences:: Yes Metrics: Potentially Preventable 30-day Post Discharge Readmission Rates;Transfer of Health Information and Care Preferences Needs Prior to Discharge: Home Care Order;Discharge Prescriptions Met with pt to discuss post CABG dc needs. States his will be home with him at disch and he is agreeable to [facility] and prefers [facility] - referral created. SIGNATURE: Nicole Muller RN PATIENT NAME: Yari Lopez DATE: March 11, 2020 TIME: 9:58 AM PAGER/CONTACT #: [phone] Normal [facility] Hemogramon 03-11-2020 Erythrocyte distribution width (RBC) [Ratio] 14.0 % Normal 11.6-14.4 [facility] Comment on above: Performed By: #### M RSA #### [address] [address] Hematocrit (Bld) [Volume fraction] 28.9 % Low 40.1-51.0 [facility] Comment on above: Performed By: #### M RSA #### [facility] [address] [place] [address] Hemoglobin (Bld) [Mass/Vol] 10.0 g/dL Low 13.7-17.5 [facility] Comment on above: Performed By: #### M RSA #### [facility] [address] [place] [address] MCH (RBC) [Entitic mass] 31.4 pg Normal 25.7-32.2 [facility] Comment on above: Performed By: #### M RSA #### [facility] [address] [place] [address] MCHC (RBC) [Mass/Vol] 34.6 % Normal 32.3-36.5 [facility] Comment on above: Performed By: #### M RSA #### [facility] [address] [place] [address] MCV (RBC) [Entitic vol] 90.9 fL Normal 83.2-95.6 [facility] Comment on above: Performed By: #### M RSA #### [facility] [address] [place] [address] Platelet mean volume (Bld) [Entitic vol] 10.2 fL Normal 8.7-12.0 [facility] Comment on above: Performed By: #### M RSA #### [facility] [address] [place] [address] Platelets (Bld) [#/Vol] 236 thou/cmm Normal 141-365 [facility] Comment on above: Performed By: #### M RSA #### [facility] [address] [place] [address] RBC (Bld) [#/Vol] 3.18 mil/cmm Low 4.63-6.08 [facility] Comment on above: Performed By: #### M RSA #### [facility] [address] [place] [address] RDW SD 45.4 fl Normal 36.1-45.8 [facility] Comment on above: Performed By: #### M RSA #### [place] [address] WBC (Bld) [#/Vol] 13.35 thou/cmm High 4.23-9.07 [facility] Comment on above: Performed By: #### M [facility] #### [facility] [address] [place] [id number] PROGRESSon 03-11-2020 PROGRESS HNO ID: [id number] Author: Marzena Brewer (Pa) Service: Cardiovascular Surgery Author Type: Physician Tool Technician Type: Progress Notes Filed: 03/11/2020 11:26 AM Note Text: CARDIOTHORACIC SURGERY POSTOP PROGRESS NOTE SERVICE DATE: 03/11/2020 SERVICE TIME: 7:04 AM Subjective S/P SURGERY: Procedure(s) (LRB): BYPASS GRAFT ARTERY CORONARY OFF PUMP TWO ARTERIAL GRAFTS (N/A) BYPASS GRAFT ARTERY CORONARY ON-PUMP USING VENOUS GRAFT(S) AND ARTERIAL GRAFT(S); TWO VENOUS GRAFTS (N/A) ENDOSCOPIC HARVEST VEIN FOR CORONARY ARTERY BYPASS PROCEDURE (N/A) DATE OF SURGERY: 03/08/2020 POSTOP DAY #3 LOS: 3 HPI: Yari Lopez is a 64 year old male with past medical history significant for CAD, HTN, HLD, IBS, smoking and recently quit, remote left empyema with chest tube placement. He had left heart cath that demonstrated MVCAD and LAD with 75% lesion and possible aneurysmal dilatation at the takeoff of the diagonal branch. Echo was done and showed normal EF, no valvular abnormalities, but noted dilated sinus to 4.[address] chest also noted dilated aortic root to 4.2 CM and calcifications. INTERVAL EVENTS / PERTINENT ROS: Patient seen and evaluated in bed. Denies chest pain, shortness of breath and abdominal pain. No events over night. Objective Admission Weight: 102.5 kg (226 lb) BP 136/96 Pulse 102 Temp 36.7 ?C (98.1 ?F) Resp 21 Ht 182.9 cm (6') Wt 107.7 kg (237 lb 6.4 oz) SpO2 95% BMI 32.20 kg/m? Body surface area is 2.34 meters squared. Min/Max/Average Temperature AND Blood Pressure: Temp (24hrs), Av.4 ?C (97.6 ?F), Min:36.2 ?C (97.2 ?F), Max:36.7 ?C (98.1 ?F) Systolic (24hrs), Av , Min:107 , Max:151 Diastolic (24hrs), Av, Min:62, Max:116 Intake/Output Summary (Last 24 hours) at 03/11/2020 0701 Last data filed at 03/11/2020 0400 Gross per 24 hour Intake 990 ml Output 3510 ml Net -2520 ml TELEMETRY: normal sinus rhythm PHYSICAL EXAM: General Appearance: Well developed and well nourished appearance. No acute distress. Midsternal AND SVG incision dry AND intact, without redness, drainage or edema. Head/Eyes: Sclera clear, normal conjunctiva. EOMI Lungs: respiratory effort: normal Heart: regular rhythm, S1, S2 normal and pacing wires removed Peripheral Vascular/Arteries: pulses intact Abdomen: soft, non-tender and bowel sounds present Neurologic/Psychiatric: Oriented to person, place, time. Normal affect. No gross focal neurologic deficits. Extremities: edema: non-pitting Lines, Drains, and Airways Line Central Line Quadruple Lumen 03/08/20 Right Neck 3 days Peripheral 03/08/20 0645 Short Right Hand 20 Gauge 3 days Peripheral 03/08/20 Left Wrist 16 Gauge 3 days DATA: Diagnostic tests reviewed for today's visit: Chest X-RAY: Interval removal of bilateral thoracostomy tubes without definite pneumothorax. Bilateral interstitial opacities suggesting edema. Recent Labs 03/11/20 0357 03/10/20 0400 03/09/20 0504 03/08/20 1457 RBC 3.18* 3.38* 3.60* 3.49* WBC 13.35* 16.21* 13.18* 19.48* HB 10.0* 10.9* 11.6* 11.2* HCT 28.9* 31.1* 33.7* 32.6* PLT 236 242 230 243 INR -- -- -- 1.09 APTT -- -- -- 27.2 NA 130* 127* 135* 135* K 4.3 4.7 4.8 4.5 CHLOR 92* 91* 102 102 CO2 27 24 21* 23 BUN 14 16 17 13 CREAT 0.71* 0.87 0.90 0.96 GLUC 122* 166* 131* 174* CA 8.8 8.7 8.7 8.3* MG -- 1.9 1.9 2.1 ANION 11 12 12 10 Recent Labs 03/09/20 0800 03/08/20 1900 03/08/20 1457 03/08/20 1416 03/08/20 1339 03/08/20 1302 PH 7.347* 7.288* 7.183* 7.222* 7.240* 7.340* PCO2 41.1 43.9 62.7* -- -- -- PO2 62.6* 73.2* 84.6 88.0 106.0* 316.0* BE -3.0 -5.6* -6.0* -- -- -- HCO3 -- -- -- 24.5 23.2 24.2 Assessment/Plan CAD s/p CABG x 4 -(kitchen-lad; luisa-diag; svg-om. svg-rpl; evh) -POD # 3 -Medical management with ASA 162, Lipitor 80mg, Lopressor increased to 50mg BID with hold parameters -Pain control per ERAS protocol -D/c central line and pacing wires -Lasix 20mg IV x 2 -Heart healthy diet, bowel regimen ordered; nutrition on consult -Mobilize as tolerated ? Anticipated Respiratory Insufficiency -Multifactorial including emphysematous lung tissue, post operative ? -Currently 98% on 6L NC -Scheduled and PRN duonebs, IS, deep breathing, ABG if needed ? Anticipated Acute Blood Loss Anemia -Current HANDH stable at 10.0/28.9 -No indication for transfusion at this time -Continue to monitor Hyperglycemia -HA1C 6.1 -Sliding scale with QACHS glucose checks -Consider consult endo if hyperglycemia is persistent ? Hypertension -Currently in the 120-140s -Increase metoprolol -Continue losartan at half of home dose (25mg daily); increase as needed ? Leukocytosis -Trending down 16.21>>13.35 -Likely reactive; afebrile -Continue to monitor ? DVT ppx -Lovenox SQ -SCDs/Irina Hose ? HLD -Lipitor 80mg daily ? Hx of Anxiety -Resume home Wellbutrin dose ? GI ppx -PO protonix ? Tobacco Abuse -Continued cessation education ? Dispo: Transfer to [facility] today ? Tests/Labs Ordered: 1. Chest X-ray 2. BMP 3. CBC SIGNATURE: Marzena Brewer PA-C PATIENT NAME: Yari Lopez DATE: March 11, 2020 TIME: 7:01 AM PAGER/CONTACT #: [phone] ETX [id number] Normal [facility] XR CHEST 1V FRONTALon 2019 XR CHEST 1V FRONTAL * * *Final Report* * * DATE OF EXAM: Mar 11 2020 5:28AM AKX [id number] - XR CHEST 1V FRONTAL / PROCEDURE REASON: Post-operative / post-procedure assessment, asymptomatic * * * * Physician Interpretation * * * * EXAMINATION: CHEST RADIOGRAPH (SINGLE VIEW AP OR PA) CLINICAL HISTORY: Post-operative / post-procedure assessment, asymptomatic MQ: XC1_5 Comparison: Prior chest radiographs, the most recent 03/10/2020,, including 12/25/2010, and CT chest study 02/11/2020. RESULT: Lines, tubes, and devices: Multiple monitoring wires overlie the chest. Bilateral thoracostomy tubes have been removed. A right internal jugular central venous catheter appears in unaltered position. Lungs and pleura: There are bilateral interstitial opacities. The lateral costophrenic angles are clear. There is no definite pneumothorax. Cardiomediastinal silhouette: Stable cardiomediastinal silhouette. Other: Postoperative changes of median sternotomy. IMPRESSION: Interval removal of bilateral thoracostomy tubes without definite pneumothorax. Bilateral interstitial opacities suggesting edema. Hand Roller: SILVESTRE Transcribe Date/Time: Mar 11 2020 7:00A Dictated by : RICO PENNINGTON MD This examination was interpreted and the report reviewed and electronically signed by: RICO PENNINGTON MD on Mar 11 2020 7:04AM EST Normal [facility] Basic Metabolic Panelon - Anion gap [Moles/Vol] 12 mmol/L Normal 9-18 [facility] Comment on above: Performed By: #### M RSA #### [facility] [address] [place], [place] [address] Calcium [Mass/Vol] 8.7 mg/dL Normal 8.5-10.2 [facility] Comment on above: Performed By: #### M RSA #### [facility] [address] [place], [place] [address] Chloride [Moles/Vol] 91 mmol/L Low 97-105 [facility] Comment on above: Performed By: #### M RSA #### [facility] [address] [place], [place] [address] CO2 Blood 24 mmol/L Normal 22-30 [facility] Comment on above: Performed By: #### M RSA #### [facility] [address] [place], [place] [address] Creatinine [Mass/Vol] 0.87 mg/dL Normal 0.73-1.22 [facility] Comment on above: Performed By: #### M RSA #### [facility] [address] [place], [place] [address] Glucose [Mass/Vol] 166 mg/dL High 74-99 [facility] Comment on above: Result Comment: The [place] Diabetes [employer] (ADA) provides guidance for cutoff values for fasting glucose and random glucose. The ADA defines fasting as no caloric intake for at least 8 hours.Fasting plasma glucose results between 100 to 125 [...] Reference: Standards of Medical Care in Diabetes 2016; [place] [employer]. Diabetes Care. 2016;39(Suppl 1). Performed By: #### M RSA #### [facility] [address] [place], [place] [address] Potassium [Moles/Vol] 4.7 mmol/L Normal 3.7-5.1 [facility] Comment on above: Performed By: #### M RSA #### [facility] [address] [place], [place] [address] Sodium [Moles/Vol] 127 mmol/L Low 136-144 [facility] Comment on above: Performed By: #### M RSA #### [facility] [address] [place], [place] [address] Urea nitrogen [Mass/Vol] 16 mg/dL Normal 9-24 [facility] Comment on above: Performed By: #### M RSA #### [facility] [address] [place] [address] Hemogramon 03-10-2020 Erythrocyte distribution width (RBC) [Ratio] 14.4 % Normal 11.6-14.4 [facility] Comment on above: Performed By: #### M RSA #### [facility] [address] [place] [address] Hematocrit (Bld) [Volume fraction] 31.1 % Low 40.1-51.0 [facility] Comment on above: Performed By: #### M RSA #### [facility] [address] [place] [address] Hemoglobin (Bld) [Mass/Vol] 10.9 g/dL Low 13.7-17.5 [facility] Comment on above: Performed By: #### M RSA #### [facility] [address] [place] [address] MCH (RBC) [Entitic mass] 32.2 pg Normal 25.7-32.2 [facility] Comment on above: Performed By: #### M RSA #### [facility] [address] [place] [address] MCHC (RBC) [Mass/Vol] 35.0 % Normal 32.3-36.5 [facility] Comment on above: Performed By: #### M RSA #### [facility] [address] [place] [address] MCV (RBC) [Entitic vol] 92.0 fL Normal 83.2-95.6 [facility] Comment on above: Performed By: #### M RSA #### [facility] [address] [place] [address] Platelet mean volume (Bld) [Entitic vol] 10.1 fL Normal 8.7-12.0 [facility] Comment on above: Performed By: #### M RSA #### [facility] [address] [place] [address] Platelets (Bld) [#/Vol] 242 thou/cmm Normal 141-365 [facility] Comment on above: Performed By: #### M RSA #### [facility] [address] [place] [address] RBC (Bld) [#/Vol] 3.38 mil/cmm Low 4.63-6.08 [facility] Comment on above: Performed By: #### M RSA #### [facility] [address] [place], [place] [address] RDW SD 47.8 fl High 36.1-45.8 [facility] Comment on above: Performed By: #### M RSA #### [facility] [address] [place], [place] [address] WBC (Bld) [#/Vol] 16.21 thou/cmm High 4.23-9.07 [facility] Comment on above: Performed By: #### M RSA #### [facility] [address] [place] [id number] Magnesium Bloodon 03-10-2020 Magnesium [Mass/Vol] 1.9 mg/dL Normal 1.7-2.3 [facility] Comment on above: Performed By: #### M RSA #### [facility] [address] [place] [id number] NURSING PROGon 03-10-2020 NURSING PROG HNO ID: [id number] Author: Pepito BranchRn) ELIEZER Allred Service: Nursing Author Type: Registered Nurse Type: Nursing Progress Note Filed: 03/10/2020 6:23 PM Note Text: Chest tubes removed, weaned oxygen from 9 liters to 6 liters throughout the shift. Ambulated 3 times with nursing and 2 times with therapy. The last walk of the day was at a faster pace although still experienced dyspnea with activity. He was still able to tolerate a longer ambulation time and conversation during the walk. Returned to the room and the oximetry was 96-97 % on 6 liters. Have also decreased the amount of pain medication throughout the day, with increased control and increased activity. Appetite better than prior day. Voiding with urinal. Received 40 mg of furosemide today. He has updated his spouse throughout the day on his cell phone. Normal [facility] PROGRESSon 03-10-2020 PROGRESS HNO ID: [id number] Author: Jj Tinajero Service: Pulmonary Disease Author Type: Physician Type: Progress Notes Filed: 03/10/2020 1:05 PM Note Text: MICU- PROGRESS NOTE SERVICE DATE: March 10, 2020 SERVICE TIME: 1:00 PM REASON FOR CONSULT: Postop respiratory insufficiency. Status CABG ?4 (kitchen-lad; luisa-diag; svg-om. svg-rpl; evh) 03/08/2020. REQUESTING PHYSICIAN: Miah Hinson ADMITTING PROVIDER: Miah Hinson Admission Date: 03/08/2020 AGE: [age] year old LOS: 2 days Subjective 64-year-old white male with CAD. Status post CABG ?4 03/08/2020. Has history of CAD, hyperlipidemia, hypertension, DJD and irritable bowel syndrome. Former smoker 1-1/2 packs of cigarettes per day from 01/16/1965 to 01/16/2020. Has mild COPD with FEV1 2.54 L at 73% of predicted, FVC 3.85 L at 85% of predicted, TLC 92% of predicted and DLCO 61% of predicted. Successfully extubated 03/08/2020. This morning remains doing well. Up ambulating today in the mathur. Denies headache, dizziness, lightheadedness or confusion. Denies visual changes. Denies cardiac awareness. Has appropriate median sternotomy pain. Denies cough, sputum production or shortness of breath on nasal cannula oxygen. Denies abdominal pain, cramps, nausea or vomiting. Appetite is improving.. Reports he is having flatus. [place] catheter is out and he is voiding. Denies myalgias or arthralgias. Objective PROBLEMS: ACTIVE PROBLEM LIST Coronary Arteriosclerosis in [place] Artery Chest Discomfort Heart Murmur, Systolic Sob (Shortness of Breath) On Exertion Fatigue Dyslipidemia Tobacco Abuse Essential Hypertension S/P Cabg X 4 PAST MEDICAL HISTORY Diagnosis Date - Coronary artery disease without angina pectoris - Hernia 1971 - Hypercholesteremia - Hypertension - IBS (irritable bowel syndrome) - Osteoarthritis of right knee PAST SURGICAL HISTORY Procedure Laterality Date - CARDIAC CATH 12/31/2019 @ [facility] by Dr. He - CHEST TUBE - INSERT 1984 HAD PNEUMONIA - FOOT SURGERY HX plantars wart outer edge of foot - HERNIA REPAIR HX FAMILY HISTORY Problem Relation Age of Onset - Ischemic Heart Disease Mother - Ischemic Heart Disease Father - other (HEART ATTACK) Father - Breast Cancer Sister - Coronary Artery Disease Sister Social History Tobacco Use - Smoking status: Former Smoker Packs/day: 1.50 Types: Cigarettes Start date: 01/16/1965 Last attempt to quit: 01/16/2020 Years since quittin.1 - Smokeless tobacco: Current User Types: Snuff Substance Use Topics - Alcohol use: Yes Comment: 1-2 daily - Drug use: Not Currently VITAL SIGNS (last 24hrs min/max): Temp Av.4 ?C (97.5 ?F) Min: 36 ?C (96.8 ?F) Max: 36.8 ?C (98.2 ?F) Pulse Av Min: 79 Max: 79 Arterial BP 1 Min: 103/53 Max: 103/53 Cuff BP Min: 129/83 Max: 129/83 Pain Level: 0 Vital signs reviewed. BP 142/82 Pulse 83 Temp (Src) 97.3 (Temporal) Resp 23 Ht 6' 0 (1.83m) Wt 244 lb 11.4 oz (111.0kg) SpO2 93% BMI 33.18 kg/(m2). O2 Therapy: Hi-Flow Nasal Cannula-Heated, Liters: 9 Temp (24hrs), Av.6 ?C (97.8 ?F), Min:36.1 ?C (97 ?F), Max:37.1 ?C (98.8 ?F) NET FLUID BALANCE Intake/Output Summary (Last 24 hours) at 03/10/2020 1300 Last data filed at 03/10/2020 1200 Gross per 24 hour Intake 1373 ml Output 2130 ml Net -757 ml MEDICATIONS Current Facility-Administered Medications Medication Dose Route Frequency - benzocaine-menthoL 1 Lozenge (CEPACOL) 1 Lozenge MUCOUS MEMBRANE (TOPICAL MOUTH AND THROAT) q 2 H PRN - losartan 25 mg tab(s) (COZAAR) 25 mg ORAL DAILY - pantoprazole DR 40 mg tab(s) (PROTONIX) 40 mg ORAL DAILY (6 AM) - atorvastatin 80 mg tab(s) (LIPITOR) 80 mg ORAL AT BEDTIME - metoprolol tartrate (short acting) 25 mg tab(s) (LOPRESSOR) 25 mg ORAL q 12 H - oxyCODONE IR 5-10 mg tab(s) (ROXICODONE) 5-10 mg ORAL q 3 H PRN - dextrose 40 % 15 g 15 g ORAL PRN Or - glucagon 1 mg injection (GLUCAGEN) 1 mg INTRAMUSCULAR PRN Or - dextrose 50% in water 25 mL syringe 12.5 g INTRAVENOUS PRN - insulin lispro pen (rapid acting) (HumaLOG KWIKPEN) SUBCUTANEOUS w MEALS - insulin lispro pen (rapid acting) (HumaLOG KWIKPEN) SUBCUTANEOUS AT BEDTIME - albuterol 2.5 mg /3 mL (0.083 %) 2.5 mg (PROVENTIL) 2.5 mg INHALATION q 2 H PRN - aspirin 162 mg tab(s) 162 mg ORAL DAILY - acetaminophen 1,000 mg tab(s) (TYLENOL) 1,000 mg ORAL/FEEDING TUBE q 6 H - buPROPion XL 300 mg tab(s) (WELLBUTRIN XL) 300 mg ORAL DAILY - cholecalciferol 2,000 Units tab(s) (VITAMIN D3) 2,000 Units ORAL DAILY - potassium chloride iv piggyback 20 mEq/100 mL 20 mEq INTRAVENOUS PRN - magnesium sulfate in water 2 g in sterile water 50 ml 2 g INTRAVENOUS PRN(NO DISPENSE) - enoxaparin 40 mg injection (LOVENOX) 40 mg SUBCUTANEOUS DAILY - ondansetron (PF) 4 mg injection (ZOFRAN) 4 mg INTRAVENOUS q 6 H PRN - morphine 2-4 mg injection 2-4 mg INTRAVENOUS q 1 H PRN - lidocaine 4 % 1 Patch (SALONPAS) 1 Patch TRANSDERMAL DAILY And - lidocaine patch - REMOVE OTHER AT BEDTIME And - lidocaine - VERIFY PATCH OTHER q 8 H - polyethylene glycol 3350 17 g packet (MIRALAX, GLYCOLAX) 17 g ORAL DAILY - senna-docusate 8.6-50 mg 1 tablet (SENNA-S) 1 tablet ORAL BID - NaCl 0.9% 250 mL iv bolus 250 mL INTRAVENOUS Post-Op PRN - gabapentin 200 mg cap(s) (NEURONTIN) 200 mg ORAL q 12 H - magnesium oxide 400 mg tab(s) (MAG-OX) 400 mg ORAL DAILY - bisacodyl 10 mg suppository (DULCOLAX) 10 mg RECTAL DAILY PRN Lines, Drains, and Airways Line Central Line Quadruple Lumen 03/08/20 Right Neck 2 days Peripheral 03/08/20 0645 Short Right Hand 20 Gauge 2 days Peripheral 03/08/20 Left Wrist 16 Gauge 2 days PHYSICAL EXAM PERFORMED: General: Sitting in a bedside chair. HENT: Sinuses nontender. Nares without drainage. Mucous membranes moist. Eyes: Pupils equal. Ocular movements intact. Neck: Short, thick. Right IJ triple-lumen in place without bleeding or hematoma. Normal voice Cardiovascular: Sinus rhythm on telemetry at 81 bpm. Blood pressure 125/48 mmHg by a line. Respiratory: Breathing 9 L supplemental oxygen with saturation 93%. RR 18-20. Some splinting on inspiration. No active abdominal expiratory phase, tripoding or pursed lip breathing. Chest tube in place to waterseal. No air leak. Air entry bilaterally. No conversational dyspnea Abdomen: Large, soft and non tender Genitourinary: [place] catheter has been removed and patient is voiding.. Extremities: Generalized puffiness. Ambulated and hallway this morning; appeared stable on his feet. SCDs in place. Skin: Warm, dry, pink. Good capillary refill. Neurologic: Alert, attention normal, oriented ?3. Cranial nerves grossly intact. Grossly nonfocal. No delirium. No dysarthria. Respiratory/Nursing Documentation: O2 Therapy: Hi-Flow Nasal Cannula-Heated (03/10/20 1000) Invasive Ventilator Mode: Continuous Positive Airway Pressure;Pressure Support Ventilation (03/08/201956) Set Ventilator Respiratory Rate (BPM): 12 (03/08/20 1500) Total Respiratory Rate (BPM): 15 (03/08/201956) Tidal Volume Set (mL): 460 (03/08/20 1600) Exhaled Tidal Volume (mL): 1163 (03/08/201956) Minute Volume (L): 9.8 (03/08/201956) Peak Inspiratory Pressure (cm H2O): 11 (03/08/201956) PEEP/CPAP (cm H2O): 5 (03/08/201956) HEMODYNAMIC DATA: Reviewed NUTRITION: Enteral Feeds: Yes regular diet DATA: Diagnostic tests reviewed for today's visit, films/specimens were personally reviewed by me: Most recent labs and imaging results. LABS: Recent Labs 03/10/20 0400 03/08/20 1457 WBC 16.21* < > 19.48* RBC 3.38* < > 3.49* HB 10.9* < > 11.2* HCT 31.1* < > 32.6* MCV 92.0 < > 93.4 PLT 242 < > 243 GLUC 166* < > 174* BUN 16 < > 13 CREAT 0.87 < > 0.96 NA 127* < > 135* K 4.7 < > 4.5 CHLOR 91* < > 102 CO2 24 < > 23 CA 8.7 < > 8.3* PTSEC -- -- 11.8 APTT -- -- 27.2 INR -- -- 1.09 MG 1.9 < > 2.1 < > = values in this interval not displayed. ABG: Recent Labs 03/09/20 0800 03/08/20 1900 03/08/20 1457 PH 7.347* 7.288* 7.183* PO2 62.6* 73.2* 84.6 PCO2 41.1 43.9 62.7* IMPRESSION: # Anticipated postop respiratory insufficiency; increased O2 requirements. # 55.5 years of smoking pack and a half a day. # Mild COPD emphysematous pattern by PFT 02/11/2020. FEV1 2.54 L at 73% of predicted, FVC 3.85 L at 85% of predicted, TLC 92% of predicted and DLCO 61% of predicted. # Status post CABG ?4 (kitchen-lad; luisa-diag; svg-om. svg-rpl; evh). # CAD. Preop echocardiogram form 02/11/2020 showed LVEF 55% with normal valves. RVSP not specified. Right ventricle normal in size and function. # Obesity with BMI of 30 CRITICAL CARE PLAN: # Incentive spirometry every hour # When necessary DuoNeb aerosols every 4 hours # Chest tubes per cardiothoracic surgery # Start Beta gideon # DVT prophylaxis # Aspirin and statin # Adequate analgesia # Will follow for respiratory issues This patient has a high probability of sudden, clinically significant deterioration, which requires the highest level of physician preparedness to intervene urgently. I managed/supervised life or organ supporting interventions that required frequent physician assessment. I devoted my full attention to the direct care of this patient for the amount of time indicated below. Time I spent with family or surrogate(s) is included only if the patient was incapable of providing the necessary information or participating in medical decision making. Time devoted to teaching is not included. Discussed with nursing staff, respiratory staff, Pharm.D. and MUNICIPAL BOND TRADER Time spent providing critical care services: 23 minutes excluding procedures. SIGNATURE: Jj Tinajero MD PATIENT NAME: Yari Lopez DATE: March 10, 2020 TIME: 1:00 PM [facility] PROGRESS HNO ID: [id number] Author: Koko Ellis (Pa) Service: Cardiac Surgery Author Type: Physician Tool Technician Type: Progress Notes Filed: 03/10/2020 8:51 AM Note Text: CARDIOTHORACIC SURGERY POSTOP PROGRESS NOTE SERVICE DATE: 03/10/2020 SERVICE TIME: 8:43 AM Subjective S/P SURGERY: Procedure(s) (LRB): DATE OF SURGERY: 03/08/2020 POSTOP DAY #2 LOS: 2 INTERVAL EVENTS / PERTINENT ROS: Patient seen and examined this morning. Currently requiring 9L NC. He states that his pain is moderate but is alleviated with oral pain meds. He states that he becomes SOB with ambulation. Denies any N/V. There were no acute events through the night. Labs and images were reviewed. Objective Admission Weight: 102.5 kg (226 lb) BP 149/69 Pulse 79 Temp 36.3 ?C (97.3 ?F) Resp 20 Ht 182.9 cm (6') Wt 111 kg (244 lb 11.4 oz) SpO2 95% BMI 33.19 kg/m? Body surface area is 2.37 meters squared. Min/Max/Average Temperature AND Blood Pressure: Temp (24hrs), Av.8 ?C (98.2 ?F), Min:36 ?C (96.8 ?F), Max:37.5 ?C (99.5 ?F) Systolic (24hrs), Av , Min:126 , Max:163 Diastolic (24hrs), Av, Min:69, Max:88 Intake/Output Summary (Last 24 hours) at 03/10/2020 0843 Last data filed at 03/10/2020 0800 Gross per 24 hour Intake 1743 ml Output 1255 ml Net 488 ml TELEMETRY: normal sinus rhythm PHYSICAL EXAM: General Appearance: Patient sitting upright in his chair on 9L NC. In NAD. Skin: Midsternal incision intact with no surrounding erythema, warmth, redness. SVG intact without any surrounding erythema, warmth, drainage. Neck: no JVD, RIJ in place. Lungs: Mild wheezing bilaterally. Normal respiratory effort. Heart: regular rhythm and S1, S2 normal Peripheral Vascular/Arteries: pulses intact, dorsalis pedis 2+ and radial 3+ Abdomen: slightly distended, non-tender and bowel sounds present in all four quadrants Neurologic/Psychiatric: oriented to time, place and person, alert and line welder strength 5/5 Extremities: 1+ pitting edema to the LE bilaterally, mild non pitting edema to the UE bilaterally Lines, Drains, and Airways Line Central Line Quadruple Lumen 03/08/20 Right Neck 2 days Peripheral 03/08/20 0645 Short Right Hand 20 Gauge 2 days Peripheral 03/08/20 Left Wrist 16 Gauge 2 days Drain Chest Tube 03/08/20 28 Fr 2 days Chest Tube 03/08/20 Anterior Mediastinal 32 Fr Tube #1 2 days Chest Tube 03/08/20 Mediastinal 32 Fr Tube #2 2 days DATA: Diagnostic tests reviewed for today's visit: Chest X-RAY: Persistent bilateral interstitial opacities with possible left basilar atelectasis small bilateral pleural effusions. Recent Labs 03/10/20 0400 03/09/20 0504 03/08/20 1457 RBC 3.38* 3.60* 3.49* WBC 16.21* 13.18* 19.48* HB 10.9* 11.6* 11.2* HCT 31.1* 33.7* 32.6* PLT 242 230 243 INR -- -- 1.09 APTT -- -- 27.2 NA 127* 135* 135* K 4.7 4.8 4.5 CHLOR 91* 102 102 CO2 24 21* 23 BUN 16 17 13 CREAT 0.87 0.90 0.96 GLUC 166* 131* 174* CA 8.7 8.7 8.3* MG 1.9 1.9 2.1 ANION 12 12 10 Recent Labs 03/09/20 0800 03/08/20 1900 03/08/20 1457 03/08/20 1416 03/08/20 1339 03/08/20 1302 PH 7.347* 7.288* 7.183* 7.222* 7.240* 7.340* PCO2 41.1 43.9 62.7* -- -- -- PO2 62.6* 73.2* 84.6 88.0 106.0* 316.0* BE -3.0 -5.6* -6.0* -- -- -- HCO3 -- -- -- 24.5 23.2 24.2 Assessment/Plan CAD s/p CABG x 4 -(kitchen-lad; luisa-diag; svg-om. svg-rpl; evh) -POD # 2 -Medical management with ASA 162, Lipitor 80mg, Lopressor 25mg BID -Pain control per ERAS protocol -Sliding scale and QACHS glucose checks -D/c chest tubes -Lasix 20mg IV -Maintain central line, pacing wires -Heart healthy diet, bowel regimen ordered; nutrition on consult -Mobilize as tolerated ? Anticipated Respiratory Insufficiency -Multifactorial including emphysematous lung tissue, post operative -Currently 93% on 9L NC -Scheduled and PRN duonebs, IS, deep breathing, ABG if needed ? Anticipated Acute Blood Loss Anemia -Current HANDH stable at 10.9/31.1 -No indication for transfusion at this time -Monitor with CBC in the AM Hypertension -Currently in the 130s -Resume losartan at half of home dose (25mg daily); increase as needed ? Leukocytosis -Likely reactive; afebrile -Continue to monitor with CBC in AM ? DVT ppx -Lovenox SQ -SCDs/Irina Hose ? HLD -Lipitor 80mg daily ? Hx of Anxiety -Resume home Wellbutrin dose ? GI ppx -PO protonix ? Tobacco Abuse -Continued cessation education Dispo: Remain in the CVICU for today; likely to transfer tomorrow ? Tests/Labs Ordered: 1. Chest X-ray 2. BMP 3. CBC SIGNATURE: Koko Ellis PA-C PATIENT NAME: Yari Lopez DATE: March 10, 2020 TIME: 8:43 AM PAGER/CONTACT #:[id number] ETX [id number] [facility] THERAPY NTon 03-10-2020 THERAPY NT HNO ID: [id number] Author: Fidelia Ngr/Ludy Samuel Service: Occupational Therapy Author Type: Occupational Therapist Type: Therapy (PT/OT/Speech/Resp) Filed: 03/10/2020 3:12 PM Note Text: Occupational Therapy Evaluation SERVICE DATE: 03/10/2020 SERVICE TIME: 1425 to 1448 ROOM: [place] [address] Recommended Discharge Disposition: Home Recommended Discharge Disposition Comments: Home with family assist to don/doff IRINA hose and sternal vest, light assist for ADLs and IADLs while pt is recovering and has sternal precuations. Pt's is planning on taking a week off when pt gets home. Anticipated Discharge Needs: Physical Assist at Home;Supervision at Home Physical Assist at Home for: Transportation;Shopping ;Self Care;Safety;Stairs;Laun dry;Cleaning;Ambulation ;Meals Supervision at Home due to: Decreased safety awareness(medical status change) OT Recommendations to Nursing: ADL?s in chair;To Bathroom for ADL?s /and or Toileting;OOB for meals;Transfer to Chair;With assist of 1 person OT 6 Clicks Score: 15 Precautions/Activity Restrictions: Cardiac;Sternal;Fall Risk ASSESSMENT: Patient presents with deficits in grooming, UE bathing/dressing, LE bathing/dressing, functional transfers, functional mobility, decreased safety awareness, and decreased insight to deficits after admitted for elective CABG. Requires skilled OT for to maximize independence with out of bed activites of daily living, standing activity tolerance, activity of daily livings within sternal precautions, and functional transfers. Patient Disposition at Start of Session: OOB in Chair;Call Abdullahi in Reach Patient Disposition at End of Session: Call Abdullahi in Reach;OOB in Chair Tolerance Limited By Fatigue(O2 sat in mid 80's with walk and 8 L O2) Occupational Therapy Problem List: Education Deficit;Safety Deficits;Impaired Self Care;Decreased Activity Tolerance;Decreased Strength;Functional Mobility Impairment;Balance Impaired Patient /Caregiver Goals: Go Home;Care For Self Goals for Plan of Care: Grooming with: Stand By Assistance Upper Body Bathing with: Stand By Assistance Upper Body Dressing with: Stand By Assistance Lower Body Bathing with: Moderate Assistance Lower Body Dressing with: Moderate Assistance Toilet Hygiene with: Contact Guard Assistance Toilet Transfer with: Contact Guard Assistance Tolerate (minutes of functional activity): 20 Functional Activity with: Stand By Assistance Additional Goal 1: Pt to demo sternal vest don/doff with min A Additional Goal 2: Pt to maintain sternal precautions with ADLs without verbal cues Transfer: Pt to complete log roll tech for bed mobility with CGA Rehab Potential: Excellent PLAN: Treatment Frequency (times per week): 5(3-5) Current admission Treatment Interventions: Education;Self Care / Home Management;Functional Mobility Training;Balance Training;Energy Conservation Training Plan of Care developed with: Patient TREATMENT INTERVENTIONS: Therapy Diagnosis: Reduced mobility-other;Decrease d activities of daily living (ADL);Muscle Weakness (generalized);Unsteadin ess on feet;Abnormalities of gait and mobility-other;Signs and Symptoms Involving Cognitive Functions and Awareness Interventions Provided: Evaluation;Self Fdc Management (97315) $ Evaluation-Moderate (15813) Billed Units: 1 unit OT Evaluation Moderate Complexity: Occupational Profile - Extended review of patient's medical record completed including patient's physical, cognitive, and psycho-social history (please see current hospital course of evaluation). Occupational Performance - Pt presents with deficits in grooming, UE bathing/dressing, LE bathing/dressing, functional transfers, functional mobility, decreased safety awareness, decreased insight into deficits Complexity in Clinical Decision Making - The extent of clinical reasoning was moderate, several treatment options present for the patient, need for modification during the evaluation was minimal/moderate, comorbidities affecting occupational performance: CAD, HTN, R knee and B hip arthritis Self Fdc Management (63666) Treatment Minutes: 8 1 unit Skilled Intervention(s): Edu pt / family on sternal precautions and how they apply to ADLs/IADLs. Discussed techs for safely donning/doffing IRINA hose with grocery bag to make that easier and dressing the less flexible leg first when donning pants and underwear. Discussed a pole framer or assist at home for lower extremity dressing. Practiced and edu on sternal vest don/doff while maintaining sternal precautions. Facilitated dynamic mobility/lap around unit, pt's O2 goes to the mid 80's at the lowest on 8 LO2. Recovers to mid 90's after 2 min or less. Reinforced sternal precautions for pt transfers. Total Timed Code Treatment Minutes: 8 Total Treatment Time (minutes): 23 SUBJECTIVE: Current Hospital Course: Chart reviewed; Pt s/p CAGB x4 03/08. 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 Pt rpts had low endurance and slept a lot before the surgery. Used his cane occasionally when his knees bothered him OBJECTIVE: Cognition/Communication Deficits Responsiveness: Alert;Awake Follows Commands: 2-step Commands Attention Deficits: Distractible;Divided Executive Function Deficits: Safety Awareness;Problem Solving Problem Solving Deficit: Minimal impairment Safety Awareness Deficit: Minimal impairment CURRENT FUNCTIONAL STATUS: Current Activities of Daily Living Assist Level Feeding Independent Grooming Moderate Assistance Bathing Upper Body Moderate Assistance Bathing Lower Body Maximal Assistance Dressing Upper Body Moderate Assistance Dressing Lower Body Maximal Assistance Toileting Minimal Assistance Functional Mobility Assist Level Rolling Supine to Sit Sit to Supine Scooting Sit to Stand Contact Guard Assistance Stand to Sit Contact Guard Assistance Bed to Chair Toilet/Commode Functional Mobility Contact Guard Assistance IV Pole(Tripod ICU walker) Range of Motion: ROM Limitation Comments ROM Limitation Comments: NT past 90 due to sternal precautions Strength: Strength Limitation Comments Strength Limitation Comments: at least 4/5, NT formally due to sternal precuations Balance: Dynamic Standing;Static Standing Static Standing Balance: Fair Patient able to maintain balance with handhold support, may require occasional minimal assistance Dynamic Standing Balance: Fair(ICU tripod pole) Patient accepts minimal challenge, able to maintain balance while turning head/trunk(ICU tripod pole) Activity Tolerance: Standing Activity Standing Activity: lap in hallway Standing Activity Tolerance (in minutes): 4 Edu pt on fall prevention / up with assistance. Pt left in room in chair with calllight within reach. Please see discipline specific clinical documentation flowsheet for complete details for this therapy evaluation/treatment. SIGNATURE: PAIGE Armenta/Jennifer PATIENT NAME: Yari Lopez DATE: March 10, 2020 TIME: 3:04 PM [facility] XR CHEST 1V FRONTALon 2019 XR CHEST 1V FRONTAL * * *Final Report* * * DATE OF EXAM: Mar 10 2020 6:01AM AKX [id number] - XR CHEST 1V FRONTAL / PROCEDURE REASON: Post-operative / post-procedure assessment, asymptomatic * * * * Physician Interpretation * * * * EXAMINATION: CHEST RADIOGRAPH (SINGLE VIEW AP OR PA) CLINICAL HISTORY: Post-operative / post-procedure assessment, asymptomatic MQ: [id number]_5 Comparison: Chest radiographs 12/25/2010, 03/08/2020 03/09/[address] chest study 02/11/2020. RESULT: Lines, tubes, and devices: Multiple monitoring wires overlie the chest. A right internal jugular central venous catheter appears in unaltered position as do bilateral thoracostomy tubes. Lungs and pleura: Persistent bilateral interstitial opacities with possible left basilar atelectasis small bilateral pleural effusions. Cardiomediastinal silhouette: Stable mild prominent cardiomediastinal silhouette. Other: Postoperative changes of median sternotomy with cerclage wires and stabilization plates. IMPRESSION: Persistent bilateral interstitial opacities suggesting mild edema. Hand Roller: PSCB Transcribe Date/Time: Mar 10 2020 7:30A Dictated by : RICO PENNINGTON MD This examination was interpreted and the report reviewed and electronically signed by: RICO PENNINGTON MD on Mar 10 2020 7:37AM EST Normal [facility] Basic Metabolic Panelon 04- Anion gap [Moles/Vol] 12 mmol/L Normal 9-18 [facility] Comment on above: Performed By: #### T &S #### [place] [address] Calcium [Mass/Vol] 8.7 mg/dL Normal 8.5-10.2 [facility] Comment on above: Performed By: #### T &S #### [facility] [address] [place], [place] [address] Chloride [Moles/Vol] 102 mmol/L Normal 97-105 [facility] Comment on above: Performed By: #### T &S #### [facility] [address] [place] [address] CO2 Blood 21 mmol/L Low 22-30 [facility] Comment on above: Performed By: #### T &S #### [facility] [address] [place] [address] Creatinine [Mass/Vol] 0.90 mg/dL Normal 0.73-1.22 [facility] Comment on above: Performed By: #### T &S #### [facility] [address] [place] [address] Glucose [Mass/Vol] 131 mg/dL High 74-99 [facility] Comment on above: Result Comment: The [place] Diabetes [employer] (ADA) provides guidance for cutoff values for fasting glucose and random glucose. The ADA defines fasting as no caloric intake for at least 8 hours.Fasting plasma glucose results between 100 to 125 [...] Reference: Standards of Medical Care in Diabetes 2016; [place] [employer] Association. Diabetes Care. 2016;39(Suppl 1). Performed By: #### T &S #### [facility] [address] [place] [address] Potassium [Moles/Vol] 4.8 mmol/L Normal 3.7-5.1 [facility] Comment on above: Performed By: #### T &S #### [facility] [address] [place] [address] Sodium [Moles/Vol] 135 mmol/L Low 136-144 [facility] Comment on above: Performed By: #### T &S #### [facility] [address] [place] [address] Urea nitrogen [Mass/Vol] 17 mg/dL Normal 9-24 [facility] Comment on above: Performed By: #### T &S #### [facility] [address] [place] [address] Blood Gas Arterialon 020 Base Excess -3.0 mmol/L Normal -3.0-3.0 [facility] Comment on above: Performed By: #### M RSA #### [facility] [address] [place] [address] FIO2 44 % Normal [facility] Comment on above: Performed By: #### M RSA #### [facility] [address] [place] [address] HCO3 (Bld) [Moles/Vol] 22.3 mmol/L Normal 21.0-28.0 [facility] Comment on above: Performed By: #### M RSA #### [facility] [address] [place] [address] O2% Sat Arterial 91.8 % Low 96.0-100.0 [facility] Comment on above: Performed By: #### M RSA #### [facility] [address] [place] [address] PCO2 Arterial 41.1 mm Hg Normal 35.0-45.0 [facility] Comment on above: Performed By: #### M RSA #### [facility] [address] [place] [address] pH Arterial 7.347 Low 7.350-7.450 [facility] Comment on above: Performed By: #### M RSA #### [facility] [address] [place] [address] PO2 Arterial 62.6 mm Hg Low 83.0-108.0 [facility] Comment on above: Performed By: #### M RSA #### [facility] [address] [place] [address] CASE MGT INIT ASSESon [address] [facility] HNO ID: [id number] Author: Benita (Rn) ELIEZER Caba Service: Care Management Author Type: Registered Nurse Type: Care Mgt Initial Assessment Filed: 03/09/2020 11:38 AM Note Text: CARE MANAGEMENT: ASSESSMENT AND DISCHARGE PLAN SERVICE DATE: March 09, 2020 SERVICE TIME: 11:32 AM PRIMARY CARE PHYSICIAN: Gianfranco West MD ADMISSION STATUS: Inpatient Needs Prior to Discharge: To Be Determined;Accepting Facility;Bed Availability;Facility or Agency Choices;Equipment Delivery;Home Care Order;OT/PT Evaluation;Precertifica tion;Discharge Transportation MEDICAL: BLUE CARD PPO Patient/[place] Stated Goals: To have reduction in symptoms;To improve my functional status;To return home to life as it was Health Insurance: [place] Health Issues Impacting Discharge Plan: Newly diagnosed Newly Diagnosed: Postop respiratory insufficiency. Status CABG ?4 Last Discharge Date: 12/26/10 Is this Within the Past 30 days? Last discharge within 30 days: No Advance Directive: Current Advance Directive: Health Care Power of Investment Fund Manager;Living Will In Chart: No Wool Dyer Attempted to Assist with AD Completion: Yes Action: Education Provided(To bring a copy in for our system) Health LiteracyHow often do you need to have someone help you when you read instructions, pamphlets, or other written material from your doctor or pharmacy? : 1 - Never How confident are you filling out medical forms by yourself?: 1 - Extremely Baseline Mental Status Prior to this Illness what was the patient's Baseline Mental Status?: Unable to complete assessment Prior to this illness, has anyone described the patient having any of the following behaviors?: Not Applicable Relationship of the informant to the patient:: Spouse Name of Informant: : Coleen Functional Status: Independent Does Patient Currently Receive Any Community Services or Home Care?: None Equipment Prior to Admission: None SOCIAL: Living Arrangements: (Condo) Lives With: Spouse Financial Resources: EmployedPrimary Contact: Extended Emergency Contact Information Primary Emergency Contact: JessicaColeen Address: [address] [place] [address] Mobile Relation: Spouse Supportive Patient Contact:: Yes Contact Resources: Family Family Name/Phone: Spouse Coleen [phone] Social Needs Food insecurity Worry: Never true Inability: Never true Resources Needed: No Social Needs Financial resource strain: Not hard at all Social Needs Transportation needs Medical: Yes Non-medical: Yes Caregiver AssessmentCaregiver is ready, willing and able to meet the patient's needs as recommended by the inter-professional team:: Yes Does the patient have an acute stroke diagnosis, or has the patient had a stroke during this admission?: No Patient's transition needs and plan for meeting these needs: BYPASS GRAFT ARTERY CORONARY ON-PUMP THREE CORONARY ARTERIAL GRAFTS - General Patient's perception of need for this admission: Unknown Medication Adherance I am convinced of the importance of my prescription medication: 0 - Agree Completely I worry that my prescription medication will do more harm than good to me : 0 - Disagree Completely I feel financially burdened by my [id number] expenses for my prescription medication:: 0 - Disagree Completely Risk Score: 0 Patient is categorized as: Low risk < 2 Are you interested in bedside delivery of your medications? No Is Patient Psychosocially Complex?: No ASSESSMENT AND PLAN: Medical Needs: Medical Needs: Other Needs Psychosocial Needs: Psychosocial Needs: None FREEDOM OF CHOICE EXPLAINED: [place] of Choice Given: Yes Level of Care Discussed: Home Care;Senior Living Facility;Inpatient Rehab Facility Financial Disclosure Provided: No Financial Disclosure Comments: None Provider List: Other: See Comment(Uncertan at this time await PT/OT ability to see patient) Provider list within the patient's requested geographic area shared with the patient/family: No Quality and resource use metrics shared with the patient that are relevant to the patient's goals of care and treatment preferences:: Yes Metrics: Skin Integrity;Functional Status POTENTIAL TRANSITION PLANS Durable Medical Equipment;Home Care;Home OT/PT;Rehab Facility;To Be Determined Epic reviewed. Telephone call to itBit message left to call it is not an emergency at 9:51. Call returned from Spouse Coleen. Initial assessment completed with her assistance. +pcp, Rx+ At the [facility] in [place] and she will get them from their if he is in need of any new Rx. Follow Clinical course. Possible other discharge needs. SIGNATURE: Benita Caba RN PATIENT NAME: Yari Lopez DATE: March 09, 2020 TIME: 11:31 AM PAGER/CONTACT #: [phone] [facility] ECG COMPLETEon 03-09-2020 ECG COMPLETE NAME : KELY LOPEZ PID : [id number] : 1955 Gender : Male Race : ORD : [id number] Procedure Date : Mar 09 2020 06:33:21 Edit Date : Mar 09 2020 11:32:08 Diagnosis:SINUS RHYTHM WITH PREMATURE ATRIAL COMPLEXES LEFT AXIS DEVIATION LOW VOLTAGE QRS INCOMPLETE RIGHT BUNDLE BRANCH BLOCK INFERIOR INFARCT , AGE UNDETERMINED ABNORMAL ECG WHEN COMPARED WITH ECG OF 08-MAR-2020 15:50, SIGNIFICANT CHANGES HAVE OCCURRED Confirmed by MD MARKELL, SHEA ([id number]) on 03/09/2020 11:32:07 AM Ventricular Rate : 89 BPM Atrial Rate : 89 BPM P-R Interval : 162 ms QRS Duration : 102 ms Q-T Interval : 354 ms QTC Calculation(Bazett) : 430 ms P [place] : 16 degrees R [place] : -47 degrees T [place] : 36 degrees Test Reason : Post-OP Location : 6 : [place] [address] Overread By : MD GUILLAUME VINAYAK Edited By : MD GUILLAUME VINAYAK Referred By : MIAH HINSON Acquired by : ZACK URIARTE [facility] Hemogramon 03-09-2020 Erythrocyte distribution width (RBC) [Ratio] 13.7 % Normal 11.6-14.4 [facility] Comment on above: Performed By: #### T &S #### [place] [address] Hematocrit (Bld) [Volume fraction] 33.7 % Low 40.1-51.0 [facility] Comment on above: Performed By: #### T &S #### [place] [address] Hemoglobin (Bld) [Mass/Vol] 11.6 g/dL Low 13.7-17.5 [facility] Comment on above: Performed By: #### T &S #### [place] [address] MCH (RBC) [Entitic mass] 32.2 pg Normal 25.7-32.2 [facility] Comment on above: Performed By: #### T &S #### [place] [address] MCHC (RBC) [Mass/Vol] 34.4 % Normal 32.3-36.5 [facility] Comment on above: Performed By: #### T &S #### [place] [address] MCV (RBC) [Entitic vol] 93.6 fL Normal 83.2-95.6 [facility] Comment on above: Performed By: #### T &S #### [place] [address] Platelet mean volume (Bld) [Entitic vol] 10.2 fL Normal 8.7-12.0 [facility] Comment on above: Performed By: #### T &S #### [facility] [address] [place], [place] [address] Platelets (Bld) [#/Vol] 230 thou/cmm Normal 141-365 [facility] Comment on above: Performed By: #### T &S #### [facility] [address] [place], [place] [address] RBC (Bld) [#/Vol] 3.60 mil/cmm Low 4.63-6.08 [facility] Comment on above: Performed By: #### T &S #### [facility] [address] [place], [place] [address] RDW SD 46.4 fl High 36.1-45.8 [facility] Comment on above: Performed By: #### T &S #### [facility] [address] [place] [id number] WBC (Bld) [#/Vol] 13.18 thou/cmm High 4.23-9.07 [facility] Comment on above: Performed By: #### T &S #### [facility] [address] [place] [address] Magnesium Bloodon 03-09-2020 Magnesium [Mass/Vol] 1.9 mg/dL Normal 1.7-2.3 [facility] Comment on above: Performed By: #### T &S #### [facility] [address] [place] [address] NURSING PROGon 03-09-2020 NURSING PROG HNO ID: [id number] Author: Pepito BranchRn) ELIEZER Allred Service: Nursing Author Type: Registered Nurse Type: Nursing Progress Note Filed: 03/09/2020 5:12 PM Note Text: Discontinued arterial line, indwelling urine catheter. Increased activity and patient has ambulated the unit x 2. Chest tubes remain a constant pain for the patient. Added oxycodone IR every 3 hours for pain, instead of the tramadol. Added metoprolol. Has voided since the removal of paniagua. Discontinued the insulin infusion and added humalog with glucose checks before meals. Patients sense of well being has improved throughout the day. He has spoken to his by phone. Normal [facility] PROGRESSon 03-09-2020 PROGRESS HNO ID: [id number] Author: Jj Tinajero Service: Pulmonary Disease Author Type: Physician Type: Progress Notes Filed: 03/09/2020 3:07 PM Note Text: MICU- PROGRESS NOTE SERVICE DATE: March 09, 2020 SERVICE TIME: 2:32 PM REASON FOR CONSULT: Postop respiratory insufficiency. Status CABG ?4 (kitchen-lad; luisa-diag; svg-om. svg-rpl; evh) 03/08/2020. REQUESTING PHYSICIAN: Miah Hinson ADMITTING PROVIDER: Miah Hinson Admission Date: 03/08/2020 AGE: [age] year old LOS: 1 days Subjective 64-year-old white male with CAD. Status post CABG ?4 03/08/2020. Has history of CAD, hyperlipidemia, hypertension, DJD and irritable bowel syndrome. Former smoker 1-1/2 packs of cigarettes per day from 01/16/1965 to 01/16/2020. Has mild COPD with FEV1 2.54 L at 73% of predicted, FVC 3.85 L at 85% of predicted, TLC 92% of predicted and DLCO 61% of predicted. Successfully extubated 03/08/2020. This morning is doing well. Denies headache, dizziness, lightheadedness or confusion. Denies visual changes. Denies cardiac awareness. Has appropriate median sternotomy pain. Denies cough, sputum production or shortness of breath on nasal cannula oxygen. Denies abdominal pain, cramps, nausea or vomiting. Little appetite. Reports she's having flatus. Paniagua catheter. Denies myalgias or arthralgias. Objective PROBLEMS: ACTIVE PROBLEM LIST Coronary Arteriosclerosis in [place] Artery Chest Discomfort Heart Murmur, Systolic Sob (Shortness of Breath) On Exertion Fatigue Dyslipidemia Tobacco Abuse Essential Hypertension PAST MEDICAL HISTORY Diagnosis Date - Coronary artery disease without angina pectoris - Hernia 1971 - Hypercholesteremia - Hypertension - IBS (irritable bowel syndrome) - Osteoarthritis of right knee PAST SURGICAL HISTORY Procedure Laterality Date - CARDIAC CATH 12/31/2019 @ [facility] by Dr. He - CHEST TUBE - INSERT 1984 HAD PNEUMONIA - FOOT SURGERY HX plantars wart outer edge of foot - HERNIA REPAIR HX FAMILY HISTORY Problem Relation Age of Onset - Ischemic Heart Disease Mother - Ischemic Heart Disease Father - other (HEART ATTACK) Father - Breast Cancer Sister - Coronary Artery Disease Sister Social History Tobacco Use - Smoking status: Former Smoker Packs/day: 1.50 Types: Cigarettes Start date: 01/16/1965 Last attempt to quit: 01/16/2020 Years since quittin.1 - Smokeless tobacco: Current User Types: Snuff Substance Use Topics - Alcohol use: Yes Comment: 1-2 daily - Drug use: Not Currently VITAL SIGNS (last 24hrs min/max): Temp Av.4 ?C (97.5 ?F) Min: 36 ?C (96.8 ?F) Max: 36.8 ?C (98.2 ?F) Pulse Av Min: 79 Max: 79 Arterial BP 1 Min: 103/53 Max: 103/53 Cuff BP Min: 129/83 Max: 129/83 Pain Level: 0 Vital signs reviewed. BP 126/88 Pulse 73 Temp (Src) 98.8 (Paniagua Thermistor) Resp 19 Ht 6' 0 (1.83m) Wt 236 lb 15.9 oz (107.5kg) SpO2 90% BMI 32.14 kg/(m2). O2 Therapy: Nasal Cannula, Liters: 5 Temp (24hrs), Av.7 ?C (98 ?F), Min:35.9 ?C (96.6 ?F), Max:37.5 ?C (99.5 ?F) NET FLUID BALANCE Intake/Output Summary (Last 24 hours) at 03/09/2020 1432 Last data filed at 03/09/2020 1400 Gross per 24 hour Intake 2357.75 ml Output 4270 ml Net -1912.25 ml MEDICATIONS Current Facility-Administered Medications Medication Dose Route Frequency - pantoprazole DR 40 mg tab(s) (PROTONIX) 40 mg ORAL DAILY (6 AM) - oxyCODONE IR 5-10 mg tab(s) (ROXICODONE) 5-10 mg ORAL q 3 H PRN - aspirin 162 mg tab(s) 162 mg ORAL DAILY - acetaminophen 1,000 mg tab(s) (TYLENOL) 1,000 mg ORAL/FEEDING TUBE q 6 H - buPROPion XL 300 mg tab(s) (WELLBUTRIN XL) 300 mg ORAL DAILY - cholecalciferol 2,000 Units tab(s) (VITAMIN D3) 2,000 Units ORAL DAILY - insulin regular iv infusion 100 units in NaCl 0.9% 100 mL - AK CARD SURG NOMOGRAM 0-12 Units/hr INTRAVENOUS CONTINUOUS - insulin regular human iv bolus 10 Units 10 Units INTRAVENOUS PRN - dextrose 50% in water 25 mL syringe 12.5 g INTRAVENOUS PRN - potassium chloride iv piggyback 20 mEq/100 mL 20 mEq INTRAVENOUS PRN - magnesium sulfate in water 2 g in sterile water 50 ml 2 g INTRAVENOUS PRN(NO DISPENSE) - enoxaparin 40 mg injection (LOVENOX) 40 mg SUBCUTANEOUS DAILY - lactated ringers infusion 50 mL/hr INTRAVENOUS CONTINUOUS - albuterol 2.5 mg /3 mL (0.083 %) 2.5 mg (PROVENTIL) 2.5 mg INHALATION q 2 H PRN - ondansetron (PF) 4 mg injection (ZOFRAN) 4 mg INTRAVENOUS q 6 H PRN - ceFAZolin iv piggyback 2 g in D5W (iso-osmotic) 100 mL (ANCEF) 2 g INTRAVENOUS q 6 HR - morphine 2-4 mg injection 2-4 mg INTRAVENOUS q 1 H PRN - lidocaine 4 % 1 Patch (SALONPAS) 1 Patch TRANSDERMAL DAILY And - lidocaine patch - REMOVE OTHER AT BEDTIME And - lidocaine - VERIFY PATCH OTHER q 8 H - polyethylene glycol 3350 17 g packet (MIRALAX, GLYCOLAX) 17 g ORAL DAILY - senna-docusate 8.6-50 mg 1 tablet (SENNA-S) 1 tablet ORAL BID - NaCl 0.9% 250 mL iv bolus 250 mL INTRAVENOUS Post-Op PRN - gabapentin 200 mg cap(s) (NEURONTIN) 200 mg ORAL q 12 H - magnesium oxide 400 mg tab(s) (MAG-OX) 400 mg ORAL DAILY - bisacodyl 10 mg suppository (DULCOLAX) 10 mg RECTAL DAILY PRN Lines, Drains, and Airways Line Central Line Quadruple Lumen 03/08/20 Right Neck 1 day Peripheral 03/08/20 0645 Short Right Hand 20 Gauge 1 day Peripheral 03/08/20 Left Wrist 16 Gauge 1 day Drain Chest Tube 03/08/20 28 Fr 1 day Chest Tube 03/08/20 Anterior Mediastinal 32 Fr Tube #1 1 day Chest Tube 03/08/20 Mediastinal 32 Fr Tube #2 1 day PHYSICAL EXAM PERFORMED: General: Sitting in a bedside chair. HENT: Sinuses nontender. Nares without drainage. Mucous membranes moist. Eyes: Pupils equal. Ocular movements intact. Denies diplopia Neck: Short, thick. Right IJ triple-lumen in place. Normal voice Cardiovascular: Sinus rhythm on telemetry at 80 bpm. Blood pressure 140/72 mmHg by a line. Respiratory: Breathing 6 L supplemental oxygen with saturation 91%. RR 18-20. Some's splinting on inspiration. No active abdominal expiratory phase, tripoding or pursed lip breathing. Chest tube in place to -20 cm water suction. No air leak. Air entry bilaterally. No conversational dyspnea Abdomen: Large, soft and non tender Genitourinary: Paniagua catheter with clear yellow urine. Extremities: Generalized puffiness. Right radial A- line. No hematoma, bleeding or distal ischemia. Ambulated today. SCDs in place. Skin: Warm, dry, pink. Good capillary refill. Neurologic: Alert, attention normal, oriented ?3. Cranial nerves grossly intact. Grossly nonfocal. No delirium. No dysarthria. Respiratory/Nursing Documentation: O2 Therapy: Nasal Cannula (03/09/20 1200) Invasive Ventilator Mode: Continuous Positive Airway Pressure;Pressure Support Ventilation (03/08/201956) Set Ventilator Respiratory Rate (BPM): 12 (03/08/20 1500) Total Respiratory Rate (BPM): 15 (03/08/201956) Tidal Volume Set (mL): 460 (03/08/20 1600) Exhaled Tidal Volume (mL): 1163 (03/08/201956) Minute Volume (L): 9.8 (03/08/201956) Peak Inspiratory Pressure (cm H2O): 11 (03/08/201956) PEEP/CPAP (cm H2O): 5 (03/08/201956) HEMODYNAMIC DATA: Reviewed NUTRITION: Enteral Feeds: Yes regular diet DATA: Diagnostic tests reviewed for today's visit, films/specimens were personally reviewed by me: Most recent labs and imaging results. LABS: Recent Labs 03/09/20 0504 03/08/20 1457 WBC 13.18* 19.48* RBC 3.60* 3.49* HB 11.6* 11.2* HCT 33.7* 32.6* MCV 93.6 93.4 PLT 230 243 GLUC 131* 174* BUN 17 13 CREAT 0.90 0.96 NA 135* 135* K 4.8 4.5 CHLOR 102 102 CO2 21* 23 CA 8.7 8.3* PTSEC -- 11.8 APTT -- 27.2 INR -- 1.09 MG 1.9 2.1 ABG: Recent Labs 03/09/20 0800 03/08/20 1900 03/08/20 1457 PH 7.347* 7.288* 7.183* PO2 62.6* 73.2* 84.6 PCO2 41.1 43.9 62.7* IMPRESSION: # Anticipated postop respiratory insufficiency # 55.5 years of smoking pack and a half a day. # Mild COPD emphysematous pattern by PFT 02/11/2020. FEV1 2.54 L at 73% of predicted, FVC 3.85 L at 85% of predicted, TLC 92% of predicted and DLCO 61% of predicted. # Status post CABG ?4 (kitchen-lad; luisa-diag; svg-om. svg-rpl; evh). # CAD. Preop echocardiogram form 02/11/2020 showed LVEF 55% with normal valves. RVSP not specified. Right ventricle normal in size and function. # Obesity with BMI of 30 CRITICAL CARE PLAN: # Incentive spirometry every hour # When necessary DuoNeb aerosols every 4 hours # Chest tubes per cardiothoracic surgery # Start Beta gideon # DVT prophylaxis # Aspirin and statin # Adequate analgesia # Will follow for respiratory issues This patient has a high probability of sudden, clinically significant deterioration, which requires the highest level of physician preparedness to intervene urgently. I managed/supervised life or organ supporting interventions that required frequent physician assessment. I devoted my full attention to the direct care of this patient for the amount of time indicated below. Time I spent with family or surrogate(s) is included only if the patient was incapable of providing the necessary information or participating in medical decision making. Time devoted to teaching is not included. Discussed with nursing staff, respiratory staff, Pharm.D. and MUNICIPAL BOND TRADER Time spent providing critical care services: 30 minutes excluding procedures. SIGNATURE: Jj Tinajero MD PATIENT NAME: Yari Lopez DATE: March 09, 2020 TIME: 2:32 PM Normal [facility] PROGRESS HNO ID: [id number] Author: Koko Ellis (Pa) Service: Cardiac Surgery Author Type: Physician Tool Technician Type: Progress Notes Filed: 03/09/2020 5:16 PM Note Text: CARDIOTHORACIC SURGERY POSTOP PROGRESS NOTE SERVICE DATE: 03/09/2020 SERVICE TIME: 7:51 AM Subjective S/P SURGERY: Procedure(s) (LRB): S/p CABG x 4 DATE OF SURGERY: 03/08/2020 POSTOP DAY #1 LOS: 1 INTERVAL EVENTS / PERTINENT ROS: Patient seen and examined this morning. He was extubated on time per the extubation protocol. There were no acute events through the night. He complains of pain this morning that is relieved with oral meds. He does not feel short of breath but is saturating in the low 90's on 5 L NC. Objective Admission Weight: 102.5 kg (226 lb) BP 158/86 Pulse 75 Temp 37.1 ?C (98.8 ?F) Resp 23 Ht 182.9 cm (6') Wt 107.5 kg (236 lb 15.9 oz) SpO2 92% BMI 32.14 kg/m? Body surface area is 2.34 meters squared. Min/Max/Average Temperature AND Blood Pressure: Temp (24hrs), Av.9 ?C (98.4 ?F), Min:36 ?C (96.8 ?F), Max:37.5 ?C (99.5 ?F) No data recorded. No data recorded. Intake/Output Summary (Last 24 hours) at 03/09/2020 1703 Last data filed at 03/09/2020 1600 Gross per 24 hour Intake 2170 ml Output 2090 ml Net 80 ml TELEMETRY: normal sinus rhythm PHYSICAL EXAM: General Appearance: Patient sitting upright in his chair on 5L NC. In NAD. Skin: Midsternal incision intact with no surrounding erythema, warmth, redness. SVG covered by YANNICK wrap with no evidence of drainage. Neck: no JVD, RIJ in place. Lungs: Crackles at the bases bilaterally. Normal respiratory effort. Heart: regular rhythm and S1, S2 normal Peripheral Vascular/Arteries: pulses intact, dorsalis pedis 2+ and radial 2+ Abdomen: soft, non-tender and bowel sounds present Neurologic/Psychiatric: oriented to time, place and person, alert and line welder strength 5/5 Extremities: normal exam of the extremities with minimal non pitting edema to LE Lines, Drains, and Airways Line Central Line Quadruple Lumen 03/08/20 Right Neck 1 day Peripheral 04/21/20 0645 Short Right Hand 20 Gauge 1 day Peripheral 03/08/20 Left Wrist 16 Gauge 1 day Drain Chest Tube 03/08/20 28 Fr 1 day Chest Tube 03/08/20 Anterior Mediastinal 32 Fr Tube #1 1 day Chest Tube 03/08/20 Mediastinal 32 Fr Tube #2 1 day DATA: Diagnostic tests reviewed for today's visit: Chest X-RAY: Prominent interstitial markings is again noted which may be related to a mild element of edema. ?There is bibasilar atelectasis along with a possible tiny bilateral pleural effusion. ?No pneumothorax. Recent Labs 03/09/20 0504 03/08/20 1457 03/08/20 1416 RBC 3.60* 3.49* -- WBC 13.18* 19.48* -- HB 11.6* 11.2* -- HCT 33.7* 32.6* 29* PLT 230 243 -- INR -- 1.09 -- APTT -- 27.2 -- NA 135* 135* 138 K 4.8 4.5 4.6 CHLOR 102 102 -- CO2 21* 23 -- BUN 17 13 -- CREAT 0.90 0.96 -- GLUC 131* 174* -- CA 8.7 8.3* -- MG 1.9 2.1 -- ANION 12 10 -- Recent Labs 03/09/20 0800 03/08/20 1900 03/08/20 1457 03/08/20 1416 03/08/20 1339 03/08/20 1302 PH 7.347* 7.288* 7.183* 7.222* 7.240* 7.340* PCO2 41.1 43.9 62.7* -- -- -- PO2 62.6* 73.2* 84.6 88.0 106.0* 316.0* BE -3.0 -5.6* -6.0* -- -- -- HCO3 -- -- -- 24.5 23.2 24.2 Assessment/Plan CAD s/p CABG x 4 -(kitchen-lad; luisa-diag; svg-om. svg-rpl; evh) -POD # 1 -Medical management with ASA 162, Lipitor 80mg, Lopressor 25mg BID -Continue perioperative abx -Pain control per ERAS protocol -D/c insulin gtt; sliding scale and QACHS glucose checks -D/c paniagua, Piarap leg -Maintain chest tubes, central line, pacing wires -Heart healthy diet, bowel regimen ordered; nutrition on consult -Mobilize as tolerated Anticipated Respiratory Insufficiency -Multifactorial including emphysematous lung tissue, post operative -Currently 91% on 5L NC -Scheduled duonebs, IS, deep breathing, ABG if needed Anticipated Acute Blood Loss Anemia -Current HANDH stable at 11.6/33.7 -No indication for transfusion at this time -Monitor with CBC in the AM Leukocytosis -Likely reactive; afebrile -Continue to monitor with CBC in AM DVT ppx -Lovenox SQ -SCDs/Irina Hose HLD -Lipitor 80mg daily Hx of Anxiety -Resume home Wellbutrin dose GI ppx -PO protonix Tobacco Abuse -Continued cessation education Dispo: Remain in the CVICU Tests/Labs Ordered: 1. Chest X-ray 2. BMP 3. CBC SIGNATURE: Koko Ellis PA-C PATIENT NAME: Yari Lopez DATE: March 09, 2020 TIME: 7:51 AM PAGER/CONTACT #:[phone] [phone] Normal [facility] THERAPY NTon 03-09-2020 THERAPY NT HNO ID: [id number] Author: Gricelda (Pt) Christopher Service: Physical Therapy Author Type: Physical Therapist Type: Therapy (PT/OT/Speech/Resp) Filed: 03/09/2020 2:28 PM Note Text: Physical Therapy Evaluation SERVICE DATE: 03/09/2020 SERVICE TIME: 1126 to 1150 ROOM: [id number] Recommended Discharge Disposition: Home Recommended Discharge Disposition Comments: with assist from Anticipated Discharge Needs: Physical Assist at Home Physical Assist at Home for: Cleaning;Laundry;Meals; Self Care;Shopping;Transport ation PT Recommendations to Nursing: Ambulate with device;To bathroom;In halls;Transfer to/from chair;OOB for Meals;With assist of 1 person Device: Wheeled Walker PT 6 Clicks Score: 18 Precautions/Activity Restrictions: Cardiac;Sternal;Fall Risk ASSESSMENT : This patient was admitted for CABG surgery, has the past medical history of CAD, HTN, R knee and B hip arthritis, impacting current functional level, as well as the social factors complicating the discharge of none. This patient is slightly below baseline functioning of able to ambulate independently with occasional use of cane and will benefit from continued skillled therapy in the hospital for treatment of the following body systems/impairments: musculoskeletal,cardiop ulmonary (gait, transfers, bed mobility, balance, endurance, safety and strengthening). Patient Disposition at Start of Session: OOB in Chair;Call Abdullahi in Reach Patient Disposition at End of Session: OOB in Chair;Call Abdullahi in Reach Tolerated Full Session Physical Therapy Problem List: Pain;Safety Deficits;Decreased Activity Tolerance;Decreased Range Of Motion;Decreased Strength;Functional Mobility Impairment;Balance Impaired Patient /Caregiver Goals: Go Home Goals for Plan of Care: Rolling with: Independent Transfer supine to/from sit with: Independent Transfer sit to/from stand with: Independent Ambulate with: Modified Independent Distance: 200ft Device: Wheeled Walker Transfer: complete bed to chair transfer independently Goal: able to recall 3/3 sternal precautions Rehab Potential: Good PLAN: Treatment Frequency (times per week): 5(2-5) Current admission Treatment Interventions: Education;Strengthening ;Functional Mobility Training;Balance Training;Neuromuscular Re-education Plan of Care developed with: Patient TREATMENT INTERVENTIONS: Therapy Diagnosis: Difficulty walking-musculoskeletal Interventions Provided: Evaluation;Therapeutic Activity (52491) $ Evaluation-Moderate (11639) Billed Units: 1 unit History and examination of body systems see assessment section above. This patient?s clinical presentation is evolving. The patient required a moderate complexity evaluation. Therapeutic Activity (38272) Treatment Minutes: 10 1 unit Skilled Intervention(s): Education on sternal precautions - no pushing, no pulling, no lifting more than 5-10lbs, no overhead motion, no reaching back. Patient demonstrates good understanding. Education on sternal precautions during functional mobility - no pushing, reaching forward or behind with upper extremities, use cough pillow to brace sternum when moving or coughing. Patient demonstrates good understanding. Education and cues for appropriate transfers. Instructed patient to cross arms over chest and initiate standing by pushing through bilateral lower extremities and utilizing momentum and forward weight shift as needed. Patient requires contact guard assist and demonstrates good understanding. Cues to back up to surface and feel surface behind legs. Cues to cross arms over chest and bend at waist for bowing motion. Patient requires contact guard assist and demonstrates good understanding. Cues for upright posture during ambulation. Vitals monitored during gait. Cues for deep breathing as appropriate. Cues for pacing as appropriate. Total Timed Code Treatment Minutes: 10 Total Treatment Time (minutes): 24 SUBJECTIVE: Current Hospital Course: Chart reviewed; Patient presents to the hospital due to CABGx 4 on 03/08/2020 Reason for Physical Therapy Consult : eval and treat Relevant Past Medical History: CAD, HTN, R knee and B hip arthritis, Patient Report: Patient still reporting increased chest pain Home Environment Patient Lives With: Spouse Assistance Available: 24 Hour Entry To Home: Stairs;Without Rail Number Of Stairs Into Home: 3 Number Of Stairs To Bed/Bath: full flight Stairs to Bed/Bath with: Unilateral Rail Tub/Shower Type: tub shower Laundry: in basement, can complete Equipment Owned: Cane;Grab Bars-Shower Prior Functional Level: Within Functional Limits Prior Functional Level Comments: Patient reports independent with functional mobility. States uses cane occasionally due to knee arthritis OBJECTIVE: Range of Motion: WFL Except;ROM Limitation Comments ROM Limitation Comments: within sternal precaution limitations Strength: WFL CURRENT FUNCTIONAL STATUS: Current Functional Mobility Assist Level Additional Information Sit to Stand Contact Guard Assistance Stand to Sit Contact Guard Assistance Gait Contact Guard Assistance Gait Device: (rolling cart in CVICU) Gait Distance (feet): 150ft General Deviations/Observations : Flexed trunk posture;Step length decreased;Wide base of support;Improper distancing from assistive device Balance: Static Standing;Dynamic Standing;Dynamic Sitting;Static Sitting Static Sitting Balance: Good Patient able to maintain balance without handhold support, limited postural sway Dynamic Sitting Balance: Good Patient accepts moderate challenge, able to maintain balance while picking up object off floor Static Standing Balance: Good Patient able to maintain balance without handhold support, limited postural sway Dynamic Standing Balance: Good Patient accepts moderate challenge, able to maintain balance while picking up object off floor -HLM: 7: Walk 25 feet or more Please see discipline specific clinical documentation flowsheet for complete details for this therapy evaluation/treatment. SIGNATURE: Gricelda White PT PATIENT NAME: Yari Lopez DATE: March 09, 2020 TIME: 2:24 PM Normal [facility] XR CHEST 1V FRONTALon 2019 XR CHEST 1V FRONTAL * * *Final Report* * * DATE OF EXAM: Mar 09 2020 5:47AM AKX [id number] - XR CHEST 1V FRONTAL / PROCEDURE REASON: Post-operative / post-procedure assessment, asymptomatic * * * * Physician Interpretation * * * * EXAMINATION: CHEST RADIOGRAPH (SINGLE VIEW AP OR PA) CLINICAL HISTORY: Post-operative / post-procedure assessment, asymptomatic MQ: [id number]_5 Comparison: 03/08/2020, CT study 02/11/2020 RESULT: Lines, tubes, and devices: ET and enteric tubes have been removed. Right central venous catheter is again noted as is a bilateral thoracostomy tube. Mediastinal drain remains in place. Lungs and pleura: Prominent interstitial markings is again noted which may be related to a mild element of edema. There is bibasilar atelectasis along with a possible tiny bilateral pleural effusion. No pneumothorax. Cardiomediastinal silhouette: Mild enlargement. Other: Status post median sternotomy. No acute bony abnormality. IMPRESSION: 1. Interval extubation. 2. Findings again noted suggesting mild edema. Hand Roller: PSCB Transcribe Date/Time: Mar 09 2020 7:19A Dictated by : NADYA SIMS MD This examination was interpreted and the report reviewed and electronically signed by: NADYA SIMS MD on Mar 09 2020 7:22AM EST Normal [facility] ABO/Rh Confirmationon 2019 ABO group Nom (Bld) A Normal [facility] Comment on above: Performed By: #### A SABAS #### [place] [address] RH Type Positive Normal [facility] Comment on above: Performed By: #### A SABAS #### [address] [address] ACT Arterial Panel (i-STAT)o n 03-08-2020 Kaolin ACT ( i-STAT) 131 sec Normal 74-137 [facility] Comment on above: Performed By: #### A CTIA #### [place] [id number] ANES Dayo 03-08-2020 ANES POST HNO ID: [id number] Author: Faviola Roman Service: Anesthesiology Author Type: Anesthesiologist Type: Anesthesia PostOp Filed: 03/08/2020 7:06 PM Note Text: POST ANESTHESIA EVALUATION NOTE SERVICE DATE: 03/08/2020 SERVICE TIME: 7:01 PM : 1955 Vitals: 03/08/20 1700 03/08/20 1730 03/08/20 1800 03/08/20 1830 Temp: 36.3 ?C (97.3 ?F) 36.5 ?C (97.7 ?F) 36.6 ?C (97.9 ?F) 36.7 ?C (98.1 ?F) 03/08/20 1700 03/08/20 1730 03/08/20 1800 03/08/20 183 Arterial BP 1: 174/96 129/78 102/63 100/62 BP: 03/08/20 1700 03/08/20 1730 03/08/20 1800 03/08/20 183 Pulse: (!) 137 76 69 69 03/08/20 1700 03/08/20 1730 03/08/20 1800 03/08/20 1830 Resp: 19 17 16 13 03/08/20 1700 03/08/20 1730 03/08/20 1800 03/08/20 1830 SpO2: 99% 95% 95% 94% Validated Vital Signs: Yes POST ANES STATUS: PACU/ICU Patient Condition: Stable Neurological Status: Sleepy but arousable. Pulmonary Status: On invasive mechanical ventilation. Airway Control: Intubated on mechanical ventilation. Cardiovascular Status: Stable and off epinephrine Pain: Adequately controlled Postoperative Nausea/Vomiting: No significant post operative nausea or vomiting Postoperative Hydration Status: Adequate. Intra-Operative Events: No Significant Anesthesia Events Anesthetic Complications: None Recommendation: Further care per PACU/ICU/Floor team Other Remarks: SIGNATURE: Faviola Roman MD PATIENT NAME: Yari Lopez DATE: March 08, 2020 TIME: 7:00 PM PAGER/CONTACT #: [phone] [facility] ANES PREOPon 03-08-2020 ANES PREOP HNO ID: [id number] Author: Brody Tyson Service: Anesthesiology Author Type: Physician Type: Anesthesia PreOp Filed: 03/08/2020 7:34 AM Note Text: ANESTHESIOLOGY DAY OF SURGERY NOTE SERVICE DATE: 03/08/2020 SERVICE TIME: 7:33 AM : 1955 Procedure(s) (LRB): BYPASS GRAFT ARTERY CORONARY ON-PUMP THREE CORONARY ARTERIAL GRAFTS (N/A) Surgeon(s): Miah Hinson Estimated body mass index is 30.65 kg/m? as calculated from the following: Height as of this encounter: 182.9 cm (6'). Weight as of this encounter: 102.5 kg (226 lb). Most recent hematocrit and potassium results: Hematocrit 40.2 02/11/2020 Potassium 4.2 02/11/2020 ANES DOS/PREOP NOTE: Vitals: 03/07/20 0800 Weight: 102.5 kg (226 lb) Height: 182.9 cm (6') ACTIVE PROBLEM LIST Coronary Arteriosclerosis in [place] Artery Chest Discomfort Heart Murmur, Systolic Sob (Shortness of Breath) On Exertion Fatigue Dyslipidemia Tobacco Abuse Essential Hypertension PAST MEDICAL HISTORY Diagnosis Date - Coronary artery disease without angina pectoris - Hernia 1971 - Hypercholesteremia - Hypertension - IBS (irritable bowel syndrome) - Osteoarthritis of right knee PAST SURGICAL HISTORY Procedure Laterality Date - CARDIAC CATH 12/31/2019 @ [facility] by Dr. He - CHEST TUBE - INSERT 1984 HAD PNEUMONIA - FOOT SURGERY HX plantars wart outer edge of foot - HERNIA REPAIR HX FAMILY HISTORY Problem Relation Age of Onset - Ischemic Heart Disease Mother - Ischemic Heart Disease Father - other (HEART ATTACK) Father - Breast Cancer Sister - Coronary Artery Disease Sister Social History: Social History Tobacco Use - Smoking status: Former Smoker Packs/day: 1.50 Types: Cigarettes Start date: 01/16/1965 Last attempt to quit: 01/16/2020 Years since quittin.1 - Smokeless tobacco: Current User Types: Snuff Substance Use Topics - Alcohol use: Yes Comment: 1-2 daily - Drug use: Not Currently No current facility-administered medications on file prior to encounter. Current Outpatient Medications on File Prior to Encounter Medication Sig - coenzyme Q10 (COENZYME Q-10) 100 mg cap capsule Take 100 mg by mouth once daily. - Docusate Sodium 250 mg capsule Take 250 mg by mouth once daily. - buPROPion XL (WELLBUTRIN XL) 300 mg 24 hr tablet Take 300 mg by mouth once daily. - Cholecalciferol, Vitamin D3, (VITAMIN D-3) 50 mcg (2,000 unit) cap Take 2,000 Units by mouth once daily. - Ibuprofen 200 mg cap Take 400 mg by mouth as needed. - pravastatin (PRAVACHOL) 80 mg tablet Take 1 tablet by mouth once daily. - losartan (COZAAR) 50 mg tablet Take 1 tablet by mouth once daily. (Patient not taking: Reported on 03/07/2020 ) - nitroglycerin sublingual (NITROSTAT) 0.4 mg SL tablet Dissolve 1 tablet under the tongue as needed. FOR CHEST PAIN. IF NO RELIEF CALL 911 - acetaminophen (TYLENOL) 325 mg tablet Take 2 tablets by mouth every 4 hours as needed. FOR PAIN. - aspirin 325 mg tablet Take 1 tablet by mouth once daily. (Patient taking differently: Take 81 mg by mouth once daily. ) Current Facility-Administered Medications Medication Dose Route Frequency Provider Last Rate Last Dose - cold induction cardioplegia solution 500 mL MISCELLANEOUS ONCE Miah A Lahorra - maintenance cardioplegia solution 1,000 mL MISCELLANEOUS ONCE Miah A Lahorra - heparin 3,000 Units in NaCl 0.9% 500 mL irrigation 3,000 Units IRRIGATION ONCE Miah A Lahorra - PHENYLephrine 20 mg in NaCl 0.9% 250 mL (GABE-SYNEPHRINE) 25-300 mcg/min INTRAVENOUS ONCE Miah A Lahorra - aminocaproic acid 25 g in NaCl 0.9% 250 mL (AMicAR) 1 g/hr INTRAVENOUS ONCE Miah A Lahorra - dexmedetomidine 400 mcg in NaCl 0.9% 100 mL (PRECEDEX) 0.2-0.7 mcg/kg/hr INTRAVENOUS ONCE Miah A Lahorra - EPINEPHrine 4 mg in NaCl 0.9% 250 mL 0.5-10 mcg/min INTRAVENOUS ONCE Miah A Lahorra - insulin regular iv infusion 100 units in NaCl 0.9% 100 mL - AK CARD SURG NOMOGRAM 0-12 Units/hr INTRAVENOUS ONCE Miah A Lahorra - nitroglycerin 100 mg in D5W 250 mL 5-20 mcg/min INTRAVENOUS ONCE Miah A Lahorra - NORepinephrine 16 mg in NaCl 0.9% 250 mL (LEVOPHED) 0-20 mcg/min INTRAVENOUS ONCE Miah A Lahorra - PHENYLephrine iv infusion 10 mg in NaCl 0.9% 250 mL (GABE-SYNEPHRINE) 0-100 mcg/min INTRAVENOUS ONCE Miah A Lahorra Allergies: ALLERGIES Allergen Reactions - Penicillins Swelling DOS EXAM: Adequate NPO Status: Yes Anesthetic Risks, Benefits, Alternatives, Personnel and Consent Discussed: Yes Patient agrees to proceed: Yes Previous Anesthesia: No history of adverse event, Nausea and vomiting with sodium pentothal Airway Assessment: MP 3; Neck ROM: Full ROM without neurologic symptoms; Airway Evaluation: Thick neck Symptoms of Sleep Apnea: Hypertension, Age over 50 (64 year old), Neck circumference > 15.75 inches and Male gender Dentition: Multiple missing teeth Additional Physical Exam: Lungs: Patient health status unchanged since recent history and physical. See history and physical for exam findings. Cardiac: Patient health status unchanged since recent history and physical. See history and physical for exam findings. Additional Pertinent Findings: N/A Blood Products: Will accept Blood/Blood Products Anesthetic Plan: General Anesthetic Monitoring: Standard ASA Monitors, Invasive Hemodynamic Monitoring Arterial line, PRANAV - patient denies history of stricture or varices and CVP, Potential Prolonged Intubation, Potential ICU Admission Postop and Potential Multiple Transfusions Pain Management Plan: Parenteral or Oral ASA Class: 4 Other Medical Problems: CAD Dyslipidemia HTN Smoker Remote empyema with chest tube placement ASA and metoprolol taken this AM (03/08/20) Recent Lab Values WBC 13.47 02/11/2020 Hemoglobin 13.8 02/11/2020 Hematocrit 40.2 02/11/2020 Platelet Count 324 02/11/2020 PT INR 0.9 02/11/2020 Sodium 136 02/11/2020 Potassium 4.2 02/11/2020 Chloride 103 02/11/2020 CO2 23 02/11/2020 BUN 15 02/11/2020 Creatinine 0.76 02/11/2020 Glucose 143 02/11/2020 Calcium 9.5 02/11/2020 Magnesium 1.8 02/11/2020 No results found for this basename: GlucoseMeter Antibody Screen Date Value Ref Range Status 02/16/2020 NEGATIVE NEGATIVE Final No results found for: [facility] Chronic Beta Gideon medication administered within 24 hours: Yes I have interviewed and examined the patient. I have reviewed the medical record and/or the pre-anesthesia evaluation, pertinent labs, and test results. Significant changes in the patient's condition since the History and Physical, not otherwise documented in primary service progress notes: No This contains updated information obtained within 48 hours of Surgery/Procedure. SIGNATURE: Brody Tyson MD PATIENT NAME: Yari Lopez DATE: March 08, 2020 TIME: 6:52 AM CSN: [id number] TTE (02/11/2020) CONCLUSIONS: - Technically difficult exam due to body habitus. - Exam indication: CAD - The left ventricle is small. Left ventricular systolic function is normal. EF = 55 ? 5% (visual est.) Grade I left ventricular diastolic dysfunction. - The right ventricle is normal in size. Right ventricular systolic function is normal. - There are no significant valvular abnormalities. - The visualized aorta is dilated with a maximal dimension of 4.4 cm. - Definity contrast could not be administered d/t unavailability of staff. - Exam was compared with the prior echocardiographic exam performed on 01/14/2014 (Stress echo), Aortic root has increased in size from 4.0 to 4.4 cm now. Cath From Outside hospital (12/31/19) LAD - prox 75% Aneurysmal dilation of large Diagonal Cx - mid 75% OM1 - ostial 75% RCA - 30% luminal PDA (right) - mid 80% Normal [facility] Activated PTTon 03-08-2020 aPTT Coag (Bld) [Time] 27.2 s Normal 23.0-32.4 [facility] Comment on above: Result Comment: Unfr actionated Heparin Therapeutic Ranges: Standard Heparin Nomogram: 53 to 78 seconds (anti-Xa level of 0.3 to 0.7 U/mL) Low Dose/ACS Nomogram: 49 to 67 seconds (anti-Xa level of 0.2 to 0.5 U/mL) Stroke Treatment Nomogram: 49 to 67 seconds (anti-Xa level of 0.2 to 0.5 U/mL) Note: The APTT therapeutic range has been determined for the current lot of laboratory APTT reagent in use throughout the [facility]. Performed By: #### T &S #### [place] [address] BRIEF OP NOTon 03-08-2020 BRIEF OP NOT HNO ID: [id number] Author: Miah Hinson Service: Cardiac Surgery Author Type: Physician Type: Brief Op Note Filed: 03/08/2020 2:29 PM Note Text: CARDIOTHORACIC BRIEF OP NOTE LOG ID: [id number] SURGERY/PROCEDURE DATE: 03/08/2020 INCISION/PROCEDURE START TIME: 9:15 AM INCISION CLOSE/PROCEDURE END TIME: SURGEON(S) AND PRINTING EQUIPMENT MECHANIC APPRENTICE(S): Surgeon(s) and Role: * Miah Hinson - Primary Certified Professional Ergonomist: Mitch () SA Claudia; Mila () SA Pedro PROCEDURES AND ANESTHESIA: Procedure(s) and Anesthesia Type: * BYPASS GRAFT ARTERY CORONARY ON-PUMP THREE CORONARY ARTERIAL GRAFTS - General Great Saphenous Vein, Left , Percutaneous endoscopic Internal Thoracic Artery, Bilateral, Open cabg x 4 (kitchen-lad; luisa-diag; svg-om. svg-rpl; evh) ANESTHESIA: General BRIEF FINDINGS: normal LV pre and post ESTIMATED BLOOD LOSS: 250 ml SPECIMENS: None COMPLICATIONS: None PREOPERATIVE DIAGNOSIS: coronary artery disease POSTOPERATIVE DIAGNOSIS: coronary artery disease SIGNATURE: Miah Hinson MD PATIENT NAME: Yari Lopez DATE: March 08, 2020 TIME: 2:28 PM PAGER/CONTACT #: [phone] Normal [facility] Basic Metabolic Panelon 02-17 Anion gap [Moles/Vol] 10 mmol/L Normal 9-18 [facility] Comment on above: Performed By: #### T &S #### [place] [address] Calcium [Mass/Vol] 8.3 mg/dL Low 8.5-10.2 [facility] Comment on above: Performed By: #### T &S #### [place] [address] Chloride [Moles/Vol] 102 mmol/L Normal 97-105 [facility] Comment on above: Performed By: #### T &S #### [facility] [address] [place] [address] CO2 Blood 23 mmol/L Normal 22-30 [facility] Comment on above: Performed By: #### T &S #### [facility] [address] [place] [address] Creatinine [Mass/Vol] 0.96 mg/dL Normal 0.73-1.22 [facility] Comment on above: Performed By: #### T &S #### [place] [id number] Glucose [Mass/Vol] 174 mg/dL High 74-99 [facility] Comment on above: Result Comment: The [place] Diabetes [employer] (ADA) provides guidance for cutoff values for fasting glucose and random glucose. The ADA defines fasting as no caloric intake for at least 8 hours.Fasting plasma glucose results between 100 to 125 [...] Reference: Standards of Medical Care in Diabetes 2016; [place] [employer]. Diabetes Care. 2016;39(Suppl 1). Performed By: #### T &S #### [facility] [address] [place] [address] Potassium [Moles/Vol] 4.5 mmol/L Normal 3.7-5.1 [facility] Comment on above: Performed By: #### T &S #### [facility] [address] [place] [address] Sodium [Moles/Vol] 135 mmol/L Low 136-144 [facility] Comment on above: Performed By: #### T &S #### [facility] [address] [place] [address] Urea nitrogen [Mass/Vol] 13 mg/dL Normal 9-24 [facility] Comment on above: Performed By: #### T &S #### [facility] [address] [place], [place] [address] Blood Gas Arterialon 03-08-2 020 FIO2 40 % Normal [facility] Comment on above: Performed By: #### T &S #### [facility] [address] [place] [address] Base Excess -5.6 mmol/L Low -3.0-3.0 [facility] Comment on above: Performed By: #### T &S #### [facility] [address] [place] [id number] HCO3 (Bld) [Moles/Vol] 20.7 mmol/L Low 21.0-28.0 [facility] Comment on above: Performed By: #### T &S #### [facility] [address] [place], [place] [address] O2% Sat Arterial 93.9 % Low 96.0-100.0 [facility] Comment on above: Performed By: #### T &S #### [facility] [address] [place], [place] [address] PCO2 Arterial 43.9 mm Hg Normal 35.0-45.0 [facility] Comment on above: Performed By: #### T &S #### [facility] [address] [place], [place] [address] pH Arterial 7.288 Low 7.350-7.450 [facility] Comment on above: Performed By: #### T &S #### [facility] [address] [place], [place] [address] PO2 Arterial 73.2 mm Hg Low 83.0-108.0 [facility] Comment on above: Performed By: #### T &S #### [facility] [address] [place], [place] [address] FIO2 50 % Normal [facility] Comment on above: Performed By: #### A BG #### [facility] [address] [place] [address] Base Excess -6.0 mmol/L Low -3.0-3.0 [facility] Comment on above: Performed By: #### A BG #### [facility] [address] [place], [place] [address] HCO3 (Bld) [Moles/Vol] 23.0 mmol/L Normal 21.0-28.0 [facility] Comment on above: Performed By: #### A BG #### [facility] [address] [place], [place] [address] O2% Sat Arterial 94.0 % Low 96.0-100.0 [facility] Comment on above: Performed By: #### A BG #### [facility] [address] [place] [address] PCO2 Arterial 62.7 mm Hg High 35.0-45.0 [facility] Comment on above: Performed By: #### A BG #### [facility] [address] [place] [address] pH Arterial 7.183 Critically low 7.350-7.450 [facility] Comment on above: Performed By: #### A BG #### [facility] [address] [place] [address] PO2 Arterial 84.6 mm Hg Normal 83.0-108.0 [facility] Comment on above: Performed By: #### A BG #### [facility] [address] [place] [address] CG8 Arterial Panel (i-STAT)o n 03-08-2020 Base Excess (i-STAT) -1.0 mmol/L Normal -2.0 to 3.0 [facility] Comment on above: Performed By: #### C G8IA #### [place] [address] Glucose [Mass/Vol] 220 mg/dL High 70-99 [facility] Comment on above: Performed By: #### C G8IA #### [place] [address] HCO3 (Bld) [Moles/Vol] 24.4 mmol/L Normal 22.0-26.0 [facility] Comment on above: Performed By: #### C G8IA #### [place] [address] Hematocrit (Bld) [Volume fraction] 25 %PCV Low 38-51 [facility] Comment on above: Performed By: #### C G8IA #### [place] [address] Performed By: #### C G8IV #### [place] [address] Ionized Calcium (iSTAT) 4.3 mg/dL Low 4.5-5.3 [facility] Comment on above: Performed By: #### C G8IA #### [place] [address] O2% Sat. (i-STAT) 100.0 % High 95.0-98.0 [facility] Comment on above: Performed By: #### Kaya G8IA #### [facility] [address] [place], [place] [address] Oxygen (Bld) [Partial pressure] 354.0 mm Hg High 80.0-105.0 [facility] Comment on above: Performed By: #### Kaya G8IA #### [facility] [address] [place], [place] [address] PCO2 (i-STAT) 42.7 mm Hg Normal 35.0-45.0 [facility] Comment on above: Performed By: #### Kaya G8IA #### [place] [address] pH (Bld) 7.365 [pH] Normal 7.350-7.450 [facility] Comment on above: Performed By: #### Kaya G8IA #### [place] [address] Potassium [Moles/Vol] 6.2 mmol/L High 3.5-4.9 [facility] Comment on above: Performed By: #### Kaya G8IA #### [place] [address] Sodium [Moles/Vol] 132 mmol/L Low 138-146 [facility] Comment on above: Performed By: #### Kaya G8IA #### [place] [address] Total CO2 (i-STAT) 26 mmol/L Normal 23-27 [facility] Comment on above: Performed By: #### Kaya G8IA #### [place] [address] CG8 Venous Panel (i-STAT)on 03-08-2020 Base Excess (i-STAT) -3.0 mmol/L Normal -2.0 to 3.0 [facility] Comment on above: Performed By: #### Kaya G8IV #### [place] [address] Glucose [Mass/Vol] 205 mg/dL High 70-99 [facility] Comment on above: Performed By: #### Kaya G8IV #### [place] [address] HCO3 (Bld) [Moles/Vol] 23.8 mmol/L Normal 23.0-28.0 [facility] Comment on above: Performed By: #### Kaya G8IV #### [place] [address] Hemoglobin (Bld) [Mass/Vol] 8.5 g/dL Low 12.0-17.0 [facility] Comment on above: Performed By: #### Kaya G8IV #### [place] [address] Performed By: #### Kaya G8IA #### [place] [address] Ionized Calcium (iSTAT) 4.5 mg/dL Normal 4.5-5.3 [facility] Comment on above: Performed By: #### Kaya G8IV #### [place] [address] O2% Sat. (i-STAT) 79.0 % Normal 35.0-85.0 [facility] Comment on above: Performed By: #### Kaya G8IV #### [place] [address] Oxygen (Bld) [Partial pressure] 48.0 mm Hg Normal 20.0-50.0 [facility] Comment on above: Performed By: #### Kaya G8IV #### [place] [address] PCO2 (i-STAT) 48.2 mm Hg Normal 41.0-51.0 [facility] Comment on above: Performed By: #### Kaya G8IV #### [place] [address] pH (Bld) 7.302 [pH] Low 7.310-7.410 [facility] Comment on above: Performed By: #### Kaya G8IV #### [address] [place], [place] [address] Potassium [Moles/Vol] 5.9 mmol/L High 3.5-4.9 [facility] Comment on above: Performed By: #### C G8IV #### [facility] [address] [place], [place] [address] Sodium [Moles/Vol] 133 mmol/L Low 138-146 [facility] Comment on above: Performed By: #### C G8IV #### [facility] [address] [place], [place] [address] Total CO2 (i-STAT) 25 mmol/L Normal 24-29 [facility] Comment on above: Performed By: #### C G8IV #### [facility] [address] [place], [place] [address] CONSULTon 03-08-2020 CONSULT HNO ID: [id number] Author: Jj Tinajero Service: Pulmonary Disease Author Type: Physician Type: Consults Filed: 03/08/2020 4:06 PM Note Text: CRITICAL CARE CONSULT NOTE SERVICE DATE: March 08, 2020 SERVICE TIME: 3:41 PM REASON FOR CONSULT: Postop respiratory insufficiency. Status CABG ?4 (kitchen-lad; luisa-diag; svg-om. svg-rpl; evh). REQUESTING PHYSICIAN: Miah Hinson ADMITTING PROVIDER: Miah Hinson Admission Date: 03/08/2020 AGE: [age] year old LOS: 0 days Subjective 64-year-old white male with CAD. Status post CABG ?4. Has history of CAD, hyperlipidemia, hypertension, DJD and irritable bowel syndrome. Former smoker 1-1/2 packs of cigarettes per day from 01/16/1965 to 01/16/2020. Has mild COPD with FEV1 2.54 L at 73% of predicted, FVC 3.85 L at 85% of predicted, TLC 92% of predicted and DLCO 61% of predicted. Objective PROBLEMS: ACTIVE PROBLEM LIST Coronary Arteriosclerosis in [place] Artery Chest Discomfort Heart Murmur, Systolic Sob (Shortness of Breath) On Exertion Fatigue Dyslipidemia Tobacco Abuse Essential Hypertension PAST MEDICAL HISTORY Diagnosis Date - Coronary artery disease without angina pectoris - Hernia 1971 - Hypercholesteremia - Hypertension - IBS (irritable bowel syndrome) - Osteoarthritis of right knee PAST SURGICAL HISTORY Procedure Laterality Date - CARDIAC CATH 12/31/2019 @ [facility] by Dr. He - CHEST TUBE - INSERT 1985 HAD PNEUMONIA - FOOT SURGERY HX plantars wart outer edge of foot - HERNIA REPAIR HX FAMILY HISTORY Problem Relation Age of Onset - Ischemic Heart Disease Mother - Ischemic Heart Disease Father - other (HEART ATTACK) Father - Breast Cancer Sister - Coronary Artery Disease Sister Social History Tobacco Use - Smoking status: Former Smoker Packs/day: 1.50 Types: Cigarettes Start date: 01/16/1965 Last attempt to quit: 01/16/2020 Years since quittin.1 - Smokeless tobacco: Current User Types: Snuff Substance Use Topics - Alcohol use: Yes Comment: 1-2 daily - Drug use: Not Currently VITAL SIGNS (last 24hrs min/max): Temp Av.4 ?C (97.5 ?F) Min: 36 ?C (96.8 ?F) Max: 36.8 ?C (98.2 ?F) Pulse Av Min: 79 Max: 79 Arterial BP 1 Min: 103/53 Max: 103/53 Cuff BP Min: 129/83 Max: 129/83 Pain Level: 0 Vital signs reviewed. BP 129/83 Pulse 79 Temp (Src) 96.8 (Temporal) Resp 12 Ht 6' 0 (1.83m) Wt 226 lb (102.5kg) SpO2 94% BMI 30.64 kg/(m2). O2 Therapy: Room Air, %FIO2: 50 Temp (24hrs), Av.4 ?C (97.5 ?F), Min:36 ?C (96.8 ?F), Max:36.8 ?C (98.2 ?F) NET FLUID BALANCE Intake/Output Summary (Last 24 hours) at 03/08/2020 1541 Last data filed at 03/08/2020 1500 Gross per 24 hour Intake ? Output 1865 ml Net -1865 ml MEDICATIONS Current Facility-Administered Medications Medication Dose Route Frequency - acetaminophen 1,000 mg tab(s) (TYLENOL) 1,000 mg ORAL/FEEDING TUBE q 6 H - cholecalciferol 2,000 Units tab(s) (VITAMIN D3) 2,000 Units ORAL DAILY - insulin regular iv infusion 100 units in NaCl 0.9% 100 mL - [place] CARD SURG NOMOGRAM 0-12 Units/hr INTRAVENOUS CONTINUOUS - insulin regular human iv bolus 10 Units 10 Units INTRAVENOUS PRN - dextrose 50% in water 25 mL syringe 12.5 g INTRAVENOUS PRN - potassium chloride iv piggyback 20 mEq/100 mL 20 mEq INTRAVENOUS PRN - magnesium sulfate in water 2 g in sterile water 50 ml 2 g INTRAVENOUS PRN(NO DISPENSE) - lactated ringers infusion 50 mL/hr INTRAVENOUS CONTINUOUS - albuterol 2.5 mg /3 mL (0.083 %) 2.5 mg (PROVENTIL) 2.5 mg INHALATION q 2 H PRN - EPINEPHrine 4 mg in NaCl 0.9% 250 mL 0.5-10 mcg/min INTRAVENOUS CONTINUOUS - ondansetron (PF) 4 mg injection (ZOFRAN) 4 mg INTRAVENOUS q 6 H PRN - ceFAZolin iv piggyback 2 g in D5W (iso-osmotic) 100 mL (ANCEF) 2 g INTRAVENOUS q 6 HR - midazolam (PF) 2 mg injection (VERSED) 2 mg INTRAVENOUS q 6 H PRN - morphine 2-4 mg injection 2-4 mg INTRAVENOUS q 1 H PRN - lidocaine 4 % 1 Patch (SALONPAS) 1 Patch TRANSDERMAL DAILY - NaCl 0.9% 250 mL iv bolus 250 mL INTRAVENOUS Post-Op PRN - traMADol 50-100 mg tab(s) (ULTRAM) 50-100 mg ORAL q 6 H PRN - gabapentin 200 mg cap(s) (NEURONTIN) 200 mg ORAL q 12 H - bisacodyl 10 mg suppository (DULCOLAX) 10 mg RECTAL DAILY PRN - dexmedetomidine 400 mcg in NaCl 0.9% 100 mL (PRECEDEX) 0.2-0.7 mcg/kg/hr INTRAVENOUS CONTINUOUS Lines, Drains, and Airways Line Arterial Line/Sheath 03/08/20 Right Radial less than 1 day Central Line Quadruple Lumen 03/08/20 Right Neck less than 1 day Peripheral 03/08/20 0645 Short Right Hand 20 Gauge less than 1 day Peripheral 03/08/20 Left Wrist 16 Gauge less than 1 day Drain Chest Tube 03/08/20 28 Fr less than 1 day Chest Tube 03/08/20 Anterior Mediastinal 32 Fr Tube #1 less than 1 day Chest Tube 03/08/20 Mediastinal 32 Fr Tube #2 less than 1 day GI Feed 03/08/20 1500 Gastric Mouth 16 Fr less than 1 day Indwelling Urinary Catheter 03/08/20 Temperature Monitoring 16 Fr less than 1 day Airway Airway Endotracheal Tube 03/08/20 less than 1 day PHYSICAL EXAM PERFORMED: General: Laying supine in bed on mechanical ventilation. Still under the influence of his anesthetic. HENT: Orogastric and orotracheal tubes in place. Eyes: Gaze forward. Pupils equal. Neck: Short, thick. Right IJ triple-lumen in place. Cardiovascular: Sinus rhythm on telemetry at 82 bpm. Blood pressure 123/63 mmHg by a line. Epinephrine and Gabe-Synephrine drips. Respiratory: Mechanical ventilation with FiO2 50, PEEP 5, SIMV 12, RR 12, VT 570, PIP 26 and saturation 93%. No active abdominal expiratory phase. This tube in place to -20 cm water suction. No leak. Air entry bilaterally. Abdomen: Large, soft and non tender Genitourinary: Paniagua catheter with clear yellow urine. Extremities: Generalized puffiness. Right radial A- line. No hematoma or bleeding. Skin: Warm, dry, pink Neurologic: Under the influence of his anesthetic. Precedex drip running. Respiratory/Nursing Documentation: O2 Therapy: Room Air (03/08/20 0708) Invasive Ventilator Mode: Synchronized Intermittent Mandatory Ventilation;Volume Control;Pressure Support Ventilation (03/08/20 1500) Set Ventilator Respiratory Rate (BPM): 12 (03/08/20 1500) Total Respiratory Rate (BPM): 12 (03/08/20 1500) Tidal Volume Set (mL): 570 (03/08/20 1500) Exhaled Tidal Volume (mL): 524 (03/08/20 1500) Minute Volume (L): 6.8 (03/08/20 1500) Peak Inspiratory Pressure (cm H2O): 26 (03/08/20 1500) PEEP/CPAP (cm H2O): 5 (03/08/20 1500) HEMODYNAMIC DATA: Reviewed NUTRITION: Enteral Feeds: No NPO DATA: Diagnostic tests reviewed for today's visit, films/specimens were personally reviewed by me: Most recent labs and imaging results. LABS: Recent Labs 03/08/20 1457 WBC 19.48* RBC 3.49* HB 11.2* HCT 32.6* MCV 93.4 PLT 243 GLUC 174* BUN 13 CREAT 0.96 NA 135* K 4.5 CHLOR 102 CO2 23 CA 8.3* PTSEC 11.8 APTT 27.2 INR 1.09 MG 2.1 ABG: Recent Labs 03/08/20 1457 03/08/20 1416 03/08/20 1339 PH 7.183* 7.222* 7.240* PO2 84.6 88.0 106.0* PCO2 62.7* -- -- IMPRESSION: # Anticipated postop respiratory insufficiency # 55.5 years of smoking pack and a half a day. # Mild COPD emphysematous pattern by PFT 02/11/2020. FEV1 2.54 L at 73% of predicted, FVC 3.85 L at 85% of predicted, TLC 92% of predicted and DLCO 61% of predicted. # Status post CABG ?4 (kitchen-lad; luisa-diag; svg-om. svg-rpl; evh). # CAD. Preop echocardiogram form 02/11/2020 showed LVEF 55% with normal valves. RVSP not specified. Right ventricle normal in size and function. # Obesity with BMI of 30 CRITICAL CARE PLAN: # Obtain blood gas # Adjust ventilator according to blood gas. # Once awakened from his anesthetic wean according to protocol. No obvious barrier to extubation noted. # DuoNeb aerosols every 4 hours as needed # DVT prophylaxis # Vasopressor drugs per cardiothoracic # Aspirin and statin # Adequate analgesia # Continue Precedex still off of mechanical ventilation This patient has a high probability of sudden, clinically significant deterioration, which requires the highest level of physician preparedness to intervene urgently. I managed/supervised life or organ supporting interventions that required frequent physician assessment. I devoted my full attention to the direct care of this patient for the amount of time indicated below. Time I spent with family or surrogate(s) is included only if the patient was incapable of providing the necessary information or participating in medical decision making. Time devoted to teaching is not included. Discussed with nursing staff, respiratory staff and MUNICIPAL BOND TRADER Time spent providing critical care services: 30 minutes excluding procedures. SIGNATURE: Jj Tinajero MD PATIENT NAME: Yari Lopez DATE: March 08, 2020 TIME: 3:41 PM Normal [facility] ECG COMPLETEon 03-08-2020 ECG COMPLETE NAME : KELY LOPEZ PID : [id number] : 1955 Gender : Male Race : ORD : [id number] Procedure Date : Mar 08 2020 15:50:12 Edit Date : Mar 09 2020 11:27:23 Diagnosis:SINUS RHYTHM WITH 1ST DEGREE A-V BLOCK INCOMPLETE RIGHT BUNDLE BRANCH BLOCK LOW VOLTAGE QRS SEPTAL INFARCT , AGE UNDETERMINED ABNORMAL ECG NO PREVIOUS ECGS AVAILABLE Confirmed by MD GUILLAUME VINAYAK ([id number]) on 03/09/2020 11:27:20 AM Ventricular Rate : 77 BPM Atrial Rate : 77 BPM P-R Interval : 216 ms QRS Duration : 84 ms Q-T Interval : 414 ms QTC Calculation(Bazett) : 468 ms P [place]s : 108 degrees R [place]s : -1 degrees T [place]s : 22 degrees Test Reason : Post-OP Location : 6 : [place] [address] Overread By : MD GUILLAUME VINAYAK Edited By : MD GUILLAUME VINAYAK Referred By : MIAH HINSON Acquired by : KASHMIR KLINE [facility] Hemogramon 03-08-2020 Erythrocyte distribution width (RBC) [Ratio] 13.5 % Normal 11.6-14.4 [facility] Comment on above: Performed By: #### C BC1 #### [place] [address] Hematocrit (Bld) [Volume fraction] 32.6 % Low 40.1-51.0 [facility] Comment on above: Performed By: #### C BC1 #### [place] [address] Hemoglobin (Bld) [Mass/Vol] 11.2 g/dL Low 13.7-17.5 [facility] Comment on above: Performed By: #### C BC1 #### [place] [address] MCH (RBC) [Entitic mass] 32.1 pg Normal 25.7-32.2 [facility] Comment on above: Performed By: #### C BC1 #### [place] [address] MCHC (RBC) [Mass/Vol] 34.4 % Normal 32.3-36.5 [facility] Comment on above: Performed By: #### C BC1 #### [place] [address] MCV (RBC) [Entitic vol] 93.4 fL Normal 83.2-95.6 [facility] Comment on above: Performed By: #### C BC1 #### [facility] [address] [place], [place] [address] Platelet mean volume (Bld) [Entitic vol] 10.2 fL Normal 8.7-12.0 [facility] Comment on above: Performed By: #### C BC1 #### [facility] [address] [place], [place] [address] Platelets (Bld) [#/Vol] 243 thou/cmm Normal 141-365 [facility] Comment on above: Performed By: #### C BC1 #### [facility] [address] [place], [place] [address] RBC (Bld) [#/Vol] 3.49 mil/cmm Low 4.63-6.08 [facility] Comment on above: Performed By: #### C BC1 #### [address] [address] RDW SD 45.7 fl Normal 36.1-45.8 [facility] Comment on above: Performed By: #### C BC1 #### [facility] [address] [place], [place] [address] WBC (Bld) [#/Vol] 19.48 thou/cmm High 4.23-9.07 [facility] Comment on above: Performed By: #### C BC1 #### [address] [address] Magnesium Bloodon 03-08-2020 Magnesium [Mass/Vol] 2.1 mg/dL Normal 1.7-2.3 [facility] Comment on above: Performed By: #### T &S #### [address] [address] OPERATIVE NOon 03-08-2020 OPERATIVE NO HNO ID: [id number] Author: Miah Hinson Service: Cardiac Surgery Author Type: Physician Type: Operative Report Filed: 03/09/2020 2:56 PM Note Text: [facility] - Operative Report YARI LOPEZ : 1955 AGE: 64. SEX: M PATIENT TYPE: I HOSP SVC: ORCA LOCATION: [id number] ATTENDING PHYSICIAN: MIAH HINSON CSN NUMBER: [id number] DATE OF SURGERY/PROCEDURE: 03/08/2020 INCISION/PROCEDURE START TIME: 9:15 AM INCISION CLOSE/PROCEDURE END TIME: 2:28 PM PREOPERATIVE DIAGNOSIS: Coronary artery disease, angina, and inducible ischemia. POSTOPERATIVE DIAGNOSIS: Coronary artery disease, angina, and inducible ischemia. SURGEON: Miah Hinson MD PRINTING EQUIPMENT MECHANIC APPRENTICE: 1. Claudia. 2. Ms. Vasquez. SURGERY/PROCEDURE: Coronary artery bypass graft x4 with left internal mammary artery to left anterior descending artery, free right internal mammary graft to the right diagonal branch, reversed saphenous vein graft to the obtuse marginal branch, and right posterolateral branch; with endoscopic vein harvesting. ANESTHESIA: Performed under general anesthesia. The cross-clamp time and the perfusion time are per the perfusion record. COMPLICATIONS: There were no complications. FINDINGS: Normal left ventricular function pre and postop. Excellent graft flows and flow probe analysis. INDICATIONS: This 64-year-old man has anginal symptoms. Stress test revealed inducible ischemia. He was found to have severe multivessel coronary artery disease on heart catheterization including a 75% proximal LAD, associated with aneurysmal dilatation involving the origin of a large diagonal branch, a mid 75% circumflex artery lesion, ostial 75% OM lesion, and 80% lesion in the PDA for what was thought to the PDA, which on examination is actually right posterolateral branch. LV function is normal. There is no valvular abnormality. We recommended myocardial revascularization. The procedure, the intended benefits, potential complications, and staff indications were discussed with him at length. All questions were answered. He understood and he consented to proceed. DESCRIPTION OF PROCEDURE: A preoperative huddle was performed. He was brought to the operating room and placed on the operating table in supine position. Central venous and radial artery accesses were obtained. He was given general anesthesia, intubated. A PRANAV probe was placed. A Paniagua catheter was placed. He was prepped and draped sterilely. He received perioperative IV antibiotics, beta-blockade, aspirin, IV heparin. A time-out was performed and PRANAV confirmed normal LV function with no valvular abnormalities. A median sternotomy was made. The left and right internal mammary arteries were harvested as skeletonized grafts. It had excellent pulsatile flow. The right graft was taken as a free graft. The left greater saphenous vein was then harvested in an endoscopic fashion, and the harvested site closed in layers with absorbable suture. The sternal survey research center director was placed in the wound and a pericardial well was made. The ascending aorta was free of any palpable atherosclerotic disease. LV function appeared well preserved. There was mild-to- moderate cardiomegaly. It was heparinized and cannulated for cardiopulmonary bypass via the aorta and right atrium. After an adequate ACT was achieved, cardiopulmonary bypass was initiated and ventilation was stopped. The aortic root was vented. The aortic cross-clamp was applied. The heart was arrested with 1500 cc of combined antegrade and retrograde cold blood cardioplegia. Boluses of cardioplegia were administered every 15 to 20 minutes. The aforementioned distal anastomoses were completed with running 7-0 Prolene suture end-to-side. Prior to the completion of each anastomosis, each anastomosis was patent to 1 to 1.5 mm probe proximal anastomoses were constructed with running 6-0 Prolene suture end-to-side. The cross- clamp was removed. The heart regained spontaneous sinus rhythm. Ventilations were resumed. We then weaned from bypass on low-dose inotropic support. Decannulated and reversed heparin with protamine. PRANAV confirmed normal LV function. Graft flows were excellent on flow probe analysis. Right ventricular pacing leads were placed and secured to the skin. Bilateral pleural tubes and mediastinal tube were placed and secured to the skin. Hemostasis was very carefully obtained. The sternum was closed with a combination of wire cerclage and a Biomet sternal plate x2. The pectoral fascia, subcutaneous tissues, and skin were closed in layers with absorbable suture. Dry sterile dressings were applied. Sponge counts and needle counts were correct. The patient was then returned to CVICU in good condition after a sign-out. MD LISETTE Bell:[id number] /[id number] Normal [facility] Protimeon 03-08-2020 INR Coag (PPP) [Relative time] 1.09 {INR} Normal 0.90-1.30 [facility] Comment on above: Result Comment: Dana min K Antagonist (VKA) Therapeutic Range: INR 2 to 3 (Target INR of 2.5) Note: For patients treated with VKA drugs, such as warfarin, the [place] [employer] 2012 Guideline recommends a therapeutic INR range of 2 to 3 (target INR of 2.5). This recommendation includes high-risk patients with antiphospholipid syndrome with previous arterial or venous thromboembolism, current-generation mechanical or bioprosthetic aortic heart valve replacement. Note: Patients with mechanical aortic valve replacement and additional risk factors for thromboembolic events (atrial fibrillation, previous thromboembolism, LV dysfunction, hypercoagulable conditions) or an older generation mechanical AVR (i.e., ball in-Cage) or any mechanical MVR should have a INR therapeutic range of 2.5 to 3.5 target INR of 3). Rosibel GH, et al. Chest 2012; 141:7S-47S Beth STEVENSON et al. [facility] 2017; 70: 252-289 Performed By: #### T &S #### [facility] [address] [place], [place] [address] PT Coag (PPP) [Time] 11.8 s Normal 9.7-13.0 [facility] Comment on above: Performed By: #### T &S #### [facility] [address] [place], [place] [address] XR CHEST 1V FRONTALon 2019 XR CHEST 1V FRONTAL * * *Final Report* * * DATE OF EXAM: Mar 08 2020 4:02PM [id number] [id number] - XR CHEST 1V FRONTAL / PROCEDURE REASON: Evaluate tube, line or lead position * * * * Physician Interpretation * * * * EXAMINATION: CHEST RADIOGRAPH (SINGLE VIEW AP OR PA) CLINICAL HISTORY: Evaluate tube, line or lead position MQ: XC1_5 Comparison: CT of the chest 02/11/2020 RESULT: Lines, tubes, and devices: An endotracheal tube terminates at the level of the clavicular heads. The esophagogastric tube terminates below the diaphragm with the tip not included the [id number]. Right basal and left apical thoracostomy tubes and mediastinal drain. Right jugular approach central venous catheter with the tip projecting in the low SVC. Lungs and pleura: No pneumothorax. Mildly prominent interstitial markings suggesting mild interstitial edema. Ill-defined airspace opacities in the right lung greater than left lung base, likely hypoventilatory changes. Trace bilateral pleural effusions. Cardiomediastinal silhouette: Normal cardiomediastinal silhouette. Sternotomy wires, sternal plates and mediastinal clips related to recent CABG. Other: no acute osseous abnormalities. IMPRESSION: Postsurgical changes related to recent CABG. 1. Bilateral thoracostomy tubes and mediastinal drain. No pneumothorax. 2. Small bilateral pleural effusions and hypoventilatory changes in the lung bases, mild interstitial edema. Hand Roller: PSCB Transcribe Date/Time: Mar 08 2020 4:05P Dictated by : SARAH KELLEY MD This examination was interpreted and the report reviewed and electronically signed by: SARAH KELLEY MD on Mar 08 2020 4:08PM [facility] PT EDon 03-07-2020 PT ED HNO ID: [id number] Author: Petty (Rn) ELIEZER Willingham Service: Nursing Author Type: Registered Nurse Type: Patient Education Filed: 03/07/2020 11:34 AM Note Text: PRE OP LEARNING ASSESSMENT PROCEDURE/SURGERY: READINESS TO LEARN COGNITIVE ABILITY: Alert and oriented MOTIVATION TO LEARN: Eager FAMILY SUPPORT: High - Very involved in pt care PATIENT LEARNS BEST BY: Multiple Methods FACTORS AFFECTING LEARNING: None PHYSICAL LIMITATIONS AFFECTING LEARNING: None Electronically Signed By: Petty Willingham RN In Department: [place] [facility] YARI LOPEZ ([id number]) 1955 M Date Time Provider Department 02/24/20 MIAH HINSON During your visit today, we recorded the following information about you: Symone Chávez LPN 02/24/2020 3:01 PM Signed Asa cleary requesting a call back regarding patient. They are wanting to know of he is off work because of his surgery or because he is high risk for COVID-19. His claim # is [id number] Janneth Matt APRN.ELEUTERIO CASTILLO 02/24/2020 4:38 PM Signed LVVACB Janneth Matt APRN.ELEUTERIO CASTILLO 02/25/2020 10:38 AM Signed Telephone call made back to Kathleen Cardoso at [employer] [phone] ext *[phone] [facility] #[id number], fax #[phone]. We discussed the situation with Mr Lopez' surgery, originally scheduled 02/23/2020, but delayed due to his Covid 19 exposure. Mr Lopez reported that he will be out of quarantine 03/03/2020. He is tentatively rescheduled for 03/08. Dr Hinson does require that he be tested and negative for Covid 19 prior to moving forward with surgery. I can either arrange testing through [facility] or he may be test in holderness with results faxed back to us. Kathleen understood our situation and agreed to this plan. She asked that this be documented in a letter I further reviewed with the above with Mr Lopez. NANDO Lawrence APRN.ELEUTERIO CASTILLO 02/25/2020 1:11 PM Signed Order for Covid 19 Testing for Mr Lopez emailed to [email or web address]. Testing should not occur prior to 03/03/2020 and results should be faxed to my attention. Janneth Matt APRN.CNP Allergies As of Date: 02/24/2020 Noted Allergy Reaction PENICILLINS 12/26/2010 7 - Swelling Date Reviewed: 02/16/2020 Reviewed by: Ryann Guzman LPN - Fully Assessed Reason for Visit: Question [1327] Prescriptions as of 02/24/2020 Sig: METOPROLOL TARTRATE 25 MG TAB* Take 1 tablet by mouth twice * BUPROPION XL 300 MG 24 HR TAB Take 300 mg by mouth once daniel* CHOLECALCIFEROL (VITAMIN D3) * Take 2,000 Units by mouth onc* NAPROXEN ORAL Take 220 mg by mouth. Takes 2 IBUPROFEN 200 MG CAPSULE Take by mouth. Takes 2 PRAVASTATIN 80 MG TABLET Take 1 tablet by mouth once d* LOSARTAN 50 MG TABLET Take 1 tablet by mouth once d* NITROGLYCERIN 0.4 MG SUBLINGU* Dissolve 1 tablet under the t* TADALAFIL 10 MG TABLET Take 1 tablet by mouth as nee* ACETAMINOPHEN 325 MG TABLET Take 2 tablets by mouth every* ASPIRIN 325 MG TABLET Take 1 tablet by mouth once d* Patient taking differently: Take 81 mg by mouth once eduin* Problem List As Of Date 02/24/2020 Noted Resolved Coronary arteriosclerosis in [place] artery [I25*12/14/2013 Chest discomfort [R07.89] 12/14/2013 Heart murmur, systolic [R01.1] 12/14/2013 SOB (shortness of breath) on exertion [R06.02] 12/14/2013 Fatigue [R53.83] 12/14/2013 Dyslipidemia [E78.5] 07/25/2016 Tobacco abuse [Z72.0] 07/25/2016 Essential hypertension [I10] 01/17/2017 Letter Text Encounter Status:Closed by [facility]NET[facility] MATT [facility] (AK[facility] NANCYYARI GERBER ([id number]) 1955 M Date Time Provider Department 02/17/20 JANNETH MATT (GOLF CART ATTENDANT, ELEUTERIO) JOSE During your visit today, we recorded the following information about you: Janneth Matt APRN.CNP, CNP 02/17/2020 12:34 PM Signed Mr Lopez called to report that his is a person under investigation for Covid19. Since she started feeling ill, they have maintained a 6 foot minimum distance. He is wondering whether this will change surgery plans. I have advised him to monitor his temperature daily and report her results. We will review and advise. NANDO Lawrence APRN.CNP, CNP 02/19/2020 1:15 PM Signed Mr. Lopez called back to report that his 's covid 19 test came back as positive. He has been self quarantining, however, his surgery has been delayed to allow for an adequate quarantine period. His labs and HANDP are valid until 03/17/2020. NANDO Lawrence APRN.ELEUTERIO CASTILLO 02/19/2020 3:47 PM Signed As a result of the 02/02/20 order by [facility] Director Marzena Farris M.D. to cancel non-essential surgeries that would use PPE, unless special criteria are met, I have reviewed the clinical record for this patient and have determined that the scheduled procedure does not meet criteria to go forward and should be cancelled pursuant to Director Kaleigh?s Order. The procedure will be rescheduled as soon as possible after the 02/02/20 emergency order has been lifted. Janneth Matt APRN.CNP Allergies As of Date: 02/17/2020 Noted Allergy Reaction PENICILLINS 12/26/2010 7 - Swelling Date Reviewed: 02/16/2020 Reviewed by: Ryann Guzman LPN - Fully Assessed Reason for Visit: questions [Other] Prescriptions as of 02/17/2020 Sig: GABAPENTIN 100 MG CAPSULE Take 2 capsules by mouth one * MUPIROCIN 2 % TOPICAL OINTMENT Apply 1 application to affect* METOPROLOL TARTRATE 25 MG TAB* Take 1 tablet by mouth twice * BUPROPION XL 300 MG 24 HR TAB Take 300 mg by mouth once daniel* CHOLECALCIFEROL (VITAMIN D3) * Take 2,000 Units by mouth onc* NAPROXEN ORAL Take 220 mg by mouth. Takes 2 IBUPROFEN 200 MG CAPSULE Take by mouth. Takes 2 PRAVASTATIN 80 MG TABLET Take 1 tablet by mouth once d* LOSARTAN 50 MG TABLET Take 1 tablet by mouth once d* NITROGLYCERIN 0.4 MG SUBLINGU* Dissolve 1 tablet under the t* TADALAFIL 10 MG TABLET Take 1 tablet by mouth as nee* ACETAMINOPHEN 325 MG TABLET Take 2 tablets by mouth every* ASPIRIN 325 MG TABLET Take 1 tablet by mouth once d* Patient taking differently: Take 81 mg by mouth once eduin* Problem List As Of Date 02/17/2020 Noted Resolved Coronary arteriosclerosis in [place] artery [I25*12/14/2013 Chest discomfort [R07.89] 12/14/2013 Heart murmur, systolic [R01.1] 12/14/2013 SOB (shortness of breath) on exertion [R06.02] 12/14/2013 Fatigue [R53.83] 12/14/2013 Dyslipidemia [E78.5] 07/25/2016 Tobacco abuse [Z72.0] 07/25/2016 Essential hypertension [I10] 01/17/2017 Encounter Status:Closed by JANNETH MATT CNP on 02/17/20 [facility] 02-16-2020 [facility] BART LOPEZNY Maria Del Carmen ([id number]) 1955 M Date Time Provider Department 02/16/20 1:00 PM JANNETH MATT (ELEUTERIO PERAZA) CHARLIE During your visit today, we recorded the following information about you: Pulse Respiration Blood pressure Weight 80/minute 16/minute 124/70 102.5 kg Height 1.829 m Janneth Matt APRN.ELEUTERIO CASTILLO 02/16/2020 1:18 PM Addendum Pre-Admission Patient Instruction You are scheduled for surgery on 02/23/2020 located on the 2nd Floor on of the [facility]. Please report to the 2nd Floor Surgical Waiting Area at: 06:00 AM Please note Surgery date and time is subject to change to accommodate emergencies. Do not stop at front entrance registration. 1. Do not eat anything after 11:59 PM on the night before your surgery. Eat a light supper the evening before surgery or follow specific doctor's instructions. 1. Oral hygiene and a shower or bath is required the evening before and the morning of surgery. Use the Hibiclens body wash supplied to you today. 2. Do not chew gum the morning of surgery. 3. Notify your doctor if you develop a cold, sore throat, fever or other changes in your physical condition. 4. No alcohol 24 hours before or after surgery and refrain from smoking the morning of surgery and immediately following surgery. 5. Leave valuables such as rings, watches and money at home. Remove all make-up and nail cambodian before admission. We need to check your circulation. Remove jewelry from all piercings, tongue included, as no metal can go into surgery. 6. Wear loose, comfortable clothing that will accommodate bandages. 7. You will be asked to remove glasses and contacts prior to surgery. Please bring a case. 8. Your length of stay will be determined by your surgeon and the anesthesiologist. 9. Two family members (excluding children under age 13) may stay with you the day of surgery on site. On the morning of surgery, they will be instructed on how to download an reena to their smart phone to receive updates through your surgery. 10. Please bring a list of any medication you are taking including dose and the condition for which you are being treated. Stop the following medications: ? Losartan 50 mg last on 02/21/2020 ? Decrease Aspirin to 81 mg ? Stop naproxyn today Pre-surgery Nutrition Drinks: ? Shakes: 2 boxes daily for 5 days before surgery ? Clear: 2 bottles the evening before surgery and 1 bottle in morning before surgery and finish by 2 hours before surgery time. Day of surgery medications: Take all day of surgery meds at 5:30 AM ? Aspirin 81 mg take daily and the morning of surgery ? Beta gideon: Metoprolol 25 mg twice a day and take the morning of surgery ? Tylenol 1000 mg AM of surgery ? Gabapentin 200 mg AM of surgery ? Mupirocin ointment: Please use a pea sized amount on a q-tip to apply inside your nose twice daily for five days prior to and including the morning of surgery. Start 02/18/2020 CoEnzyme Q10 to mitigate the muscle aches with the statin. Over the counter meds to have at home: Stool Softener like Colace Tylenol (acetaminophen) Extra strength 500 mg Blood pressure cuff Janneth Matt APRN.ELEUTERIO February 16, 2020 Janneth Matt APRN.ELEUTERIO, ELEUTERIO 02/16/2020 2:15 PM Signed UPDATED HISTORY AND PHYSICAL EXAMINATION SERVICE DATE: 02/16/2020 SERVICE TIME: 9:17 AM PHYSICAL EXAM MUST BE COMPLETED ON ADMISSION The History and Physical (completed in the past 30 days) has been reviewed and the patient has been examined. The contents accurately reflect the patient's condition with the following additions or revisions since the HANDP was completed. HPI: Yari Lopez is a 64 year old male with past medical history significant for CAD, HTN, HLD, IBS, smoking and recently quit, remote left empyema with chest tube placement. He had left heart cath that demonstrated MVCAD and LAD with 75% lesion and possible aneurysmal dilatation at the takeoff of the diagonal branch. Echo was done and showed normal EF, no valvular abnormalities, but noted dilated sinus to 4.[address] chest also noted dilated aortic root to 4.2 CM and calcifications. INTERVAL UPDATE: No new updates BP 124/70 (BP Site: Left Arm, BP Position: Sitting) Pulse 80 Resp 16 Ht 6' (1.829 m) Wt 226 lb (102.5 kg) SpO2 98% BMI 30.65 kg/m? LUNGS: Lungs clear to auscultation, Good diaphragmatic excursion CARDIAC: Normal S1 and S2; no rubs, murmurs, or gallops Murmur 1:3/6, mid systolic, low pitched, LLSB EXTREMITIES: No edema Provisional Diagnosis/Treatment Plan: CABG -Surgery date on 02/23/[address] Hinson -HANDP updated, and is consistent with recent evaluation with Dr. Hinson/ Dr. Del Angel -Reviewed all pre-op labs, imaging, and reports -MRSA swab done today in office and mupirocin prescription provided -Pre-op teaching and consultation done -CHG solution given to patient along with instructions -Contact information provided for additional questions or concerns -Instructed to take BB and ASA on DOS Janneth Matt APRN.CNP This HANDP can be found in the Electronic Medical Record dated 01/21/2020. SIGNATURE: Janneth Matt APRN.CNP PATIENT NAME: Yari Lopez DATE: February 16, 2020 TIME: 9:17 AM PAGER: [phone] Referring Provider: SELF [[id number]] Allergies As of Date: 02/16/2020 Noted Allergy Reaction PENICILLINS 12/26/2010 7 - Swelling Date Reviewed: 02/16/2020 Reviewed by: Ryann Guzman LPN - Fully Assessed Reason for Visit: Coronary Artery Disease [530] Cmt: Yari is her for PAT Primary Visit Diagnosis:Preoperative examination [Z01.818] Order(s):TYPE + SCREEN [SQTSCR] Order #: [id number] FUTURE RBC PRODUCTS [[id number]] Order #: [id number] FUTURE gabapentin (NEURONTIN) 100 mg capsuleTake 2 capsules by mouth one time only for 1 dose.Disp: 2 capsuleRfl: 0 UA WITH CULTURE IF INDICATED [SQUACII] Order #: [id number] FUTURE [START ON 02/18/2020] mupirocin (BACTROBAN) 2 % ointmentApply 1 application to affected area twice daily for 5 days. Start including morning of surgery.Disp: 15 gRfl: 0 metoprolol tartrate, short acting, (LOPRESSOR) 25 mg tabletTake 1 tablet by mouth twice daily.Disp: 14 tabletRfl: 0 Prescriptions as of 02/16/2020 Sig: BUPROPION XL 300 MG 24 HR TAB Take 300 mg by mouth once daniel* CHOLECALCIFEROL (VITAMIN D3) * Take 2,000 Units by mouth onc* NAPROXEN ORAL Take 220 mg by mouth. Takes 2 IBUPROFEN 200 MG CAPSULE Take by mouth. Takes 2 PRAVASTATIN 80 MG TABLET Take 1 tablet by mouth once d* LOSARTAN 50 MG TABLET Take 1 tablet by mouth once d* NITROGLYCERIN 0.4 MG SUBLINGU* Dissolve 1 tablet under the t* TADALAFIL 10 MG TABLET Take 1 tablet by mouth as nee* ACETAMINOPHEN 325 MG TABLET Take 2 tablets by mouth every* ASPIRIN 325 MG TABLET Take 1 tablet by mouth once d* Patient taking differently: Take 81 mg by mouth once eduin* GABAPENTIN 100 MG CAPSULE Take 2 capsules by mouth one * MUPIROCIN 2 % TOPICAL OINTMENT Apply 1 application to affect* METOPROLOL TARTRATE 25 MG TAB* Take 1 tablet by mouth twice * Problem List As Of Date 02/16/2020 Noted Resolved Coronary arteriosclerosis in [place] artery [I25*12/14/2013 Chest discomfort [R07.89] 12/14/2013 Heart murmur, systolic [R01.1] 12/14/2013 SOB (shortness of breath) on exertion [R06.02] 12/14/2013 Fatigue [R53.83] 12/14/2013 Dyslipidemia [E78.5] 07/25/2016 Tobacco abuse [Z72.0] 07/25/2016 Essential hypertension [I10] 01/17/2017 Other instructions from your clinician: Pre-Admission Patient Instruction You are scheduled for surgery on 02/23/2020 located on the 2nd Floor on of the [facility]. Please report to the 2nd Floor Surgical Waiting Area at: 06:00 AM Please note Surgery date and time is subject to change to accommodate emergencies. Do not stop at front entrance registration. 1. Do not eat anything after 11:59 PM on the night before your surgery. Eat a light supper the evening before surgery or follow specific doctor's instructions. 1. Oral hygiene and a shower or bath is required the evening before and the morning of surgery. Use the Hibiclens body wash supplied to you today. 2. Do not chew gum the morning of surgery. 3. Notify your doctor if you develop a cold, sore throat, fever or other changes in your physical condition. 4. No alcohol 24 hours before or after surgery and refrain from smoking the morning of surgery and immediately following surgery. 5. Leave valuables such as rings, watches and money at home. Remove all make-up and nail cambodian before admission. We need to check your circulation. Remove jewelry from all piercings, tongue included, as no metal can go into surgery. 6. Wear loose, comfortable clothing that will accommodate bandages. 7. You will be asked to remove glasses and contacts prior to surgery. Please bring a case. 8. Your length of stay will be determined by your surgeon and the anesthesiologist. 9. Two family members (excluding children under age 13) may stay with you the day of surgery on site. On the morning of surgery, they will be instructed on how to download an reena to their smart phone to receive updates through your surgery. 10. Please bring a list of any medication you are taking including dose and the condition for which you are being treated. Stop the following medications: ? Losartan 50 mg last on 02/21/2020 ? Decrease Aspirin to 81 mg ? Stop naproxyn today Pre-surgery Nutrition Drinks: ? Shakes: 2 boxes daily for 5 days before surgery ? Clear: 2 bottles the evening before surgery and 1 bottle in morning before surgery and finish by 2 hours before surgery time. Day of surgery medications: Take all day of surgery meds at 5:30 AM ? Aspirin 81 mg take daily and the morning of surgery ? Beta gideon: Metoprolol 25 mg twice a day and take the morning of surgery ? Tylenol 1000 mg AM of surgery ? Gabapentin 200 mg AM of surgery ? Mupirocin ointment: Please use a pea sized amount on a q-tip to apply inside your nose twice daily for five days prior to and including the morning of surgery. Start 02/18/2020 CoEnzyme Q10 to mitigate the muscle aches with the statin. Over the counter meds to have at home: Stool Softener like Colace Tylenol (acetaminophen) Extra strength 500 mg Blood pressure cuff Janneth Matt APRN.ELEUTERIO February 16, 2020 Prescriptions ordered this encounter Disp Refills Start End GABAPENTIN 100 MG CAPSULE 2 ca* 0 02/16/2020 02/16/2020 Route: ORAL Sig: Take 2 capsules by mouth one time only for 1 dose. MUPIROCIN 2 % TOPICAL OINTMENT 15 g 0 02/18/2020 02/23/2020 Class: Print RX Route: TOPICAL Sig: Apply 1 application to affected area twice daily for 5 days. Start including morning of surgery. METOPROLOL TARTRATE 25 MG TABLET 14 t* 0 02/16/2020 Route: ORAL Sig: Take 1 tablet by mouth twice daily. Medications Discontinued During This Encounter perflutren lipid microspheres (DEFIN* 1.3 * 0 01/21/2020 02/16/2020 Class: In Office Route: INTRAVENOUS Sig: Inject 1.3 mL intravenously as directed. Administration Instructions: If no IV access, insert saline lock prior to administering contrast. Discontinue saline lock post exam. If patient has central line or IVAD, may access for administration according to line specific nursing protocol. Once exam is complete, flush line and de-access per line specific nursing protocol. Diluted IV Bolus: Dilute 1.3 ml of Definity with 8.7 ml of preservative-free saline. Patient not taking: Reported on 02/16/2020 Disc: Course of therapy completed Letter Text Encounter Status:Closed by JANNETH MATT CNP on 02/16/20 [facility] CONSULT PROGon 02-16-2020 CONSULT PROG HNO ID: [id number] Author: Janneth (Karmen Castillo) ELEUTERIO Matt Service: Cardiac Surgery Author Type: Nurse Practitioner Type: Consult Progress Note Filed: 02/21/2020 5:19 PM Note Text: CTVS Surgery Pre-Op Open Heart Check List Patient Info: Yari Lopez 1955 64 year old Penicillins HPI: Yari Lopez is a 64 year old male with past medical history significant for CAD, HTN, HLD, IBS, smoking and recently quit, remote left empyema with chest tube placement. He had left heart cath that demonstrated MVCAD and LAD with 75% lesion and possible aneurysmal dilatation at the takeoff of the diagonal branch. Echo was done and showed normal EF, no valvular abnormalities, but noted dilated sinus to 4.[address] chest also noted dilated aortic root to 4.2 CM and calcifications. Last set of vitals: There were no vitals taken for this visit. Wt: 220 lb (99.8 kg) BMI: 29.84 kg/(m2) Procedure: CABG Diagnosis: CAD Date of Procedure: 02/23/2020 STS Risk Score: 0.382% CARE TEAM: Cardiac Surgeon: Naheed Drainage Inspector: Neri PCP: Brett Other Providers: Pre-Op Testing: LABS: CHEMISTRY Troponin I (NG/ML) Date Value 12/26/2010 <0.04 12/25/2010 <0.04 Sodium Date Value 02/11/2020 136 mmol/L 02/10/2018 141 mmol/L 12/25/2010 139 MMOL/L Chloride Date Value 02/11/2020 103 mmol/L 02/10/2018 102 mmol/L 12/25/2010 103 MMOL/L CO2 Date Value 02/11/2020 23 mmol/L 02/10/2018 21 mmol/L 12/25/2010 22 MMOL/L BUN Date Value 02/11/2020 15 mg/dL 02/10/2018 11 mg/dL 12/25/2010 14 MG/DL Creatinine Date Value 02/11/2020 0.76 mg/dL 02/10/2018 0.91 mg/dL 12/25/2010 0.8 MG/DL Glucose (mg/dL) Date Value 02/11/2020 143 02/10/2018 75 Magnesium (mg/dL) Date Value 02/11/2020 1.8 Protein, Total (g/dL) Date Value 02/11/2020 7.0 Calcium (mg/dL) Date Value 02/11/2020 9.5 02/10/2018 9.7 Bilirubin, Total (mg/dL) Date Value 02/11/2020 0.2 Alkaline Phosphatase (U/L) Date Value 02/11/2020 80 ALT (U/L) Date Value 02/11/2020 25 02/10/2018 24 AST (U/L) Date Value 02/11/2020 13 Anion Gap (mmol/L) Date Value 02/11/2020 10 02/10/2018 18 { Lipid Panel Cholesterol, Total Date Value Ref Range Status 02/10/2018 159 <200 mg/dL Final Comment: <200 mg/dL, Desirable 200-239 mg/dL, Borderline high >239 mg/dL, High HDL Cholesterol Date Value Ref Range Status 02/10/2018 34 (L) >39 mg/dL Final Comment: 40-59 mg/dL, Acceptable >59 mg/dL, High: Negative risk factor for coronary heart disease <40 mg/dL, Low: Positive risk factor for coronary heart disease LDL Cholesterol Date Value Ref Range Status 02/10/2018 85 <100 mg/dL Final Comment: <100 mg/dL, Optimal 100-129 mg/dL, Near optimal/above optimal 130-159 mg/dL, Borderline high 160-189 mg/dL, High >189 mg/dL, Very high Secondary prevention optimal LDL Cholesterol levels are recommended to be < 70 mg/dL Triglyceride Date Value Ref Range Status 02/10/2018 202 (H) <150 mg/dL Final Comment: <150 mg/dL, Normal 150-199 mg/dL, Borderline high 200-499 mg/dL, High >499 mg/dL, Very high NT Pro BNP No results found for: PBNP ENDOCRINE Hemoglobin A1C (%) Date Value 02/11/2020 6.1 No results found for: [facility]REFL HEMATOLOGY RBC Date Value 02/11/2020 4.41 m/uL 12/25/2010 4.30 x10-6/UL Hemoglobin Date Value 02/11/2020 13.8 g/dL 12/25/2010 14.1 G/DL Hematocrit (%) Date Value 02/11/2020 40.2 12/25/2010 40.6 WBC Date Value 02/11/2020 13.47 k/uL 12/25/2010 9.0 x10-3/UL Platelet Count Date Value 02/11/2020 324 k/uL 12/25/2010 250 x10-3/UL COAGULATION PT Sec Date Value Ref Range Status 02/11/2020 10.2 9.7 - 13.0 sec Final PT INR Date Value Ref Range Status 02/11/2020 0.9 0.9 - 1.3 Final Comment: Vitamin K Antagonist (VKA) Therapeutic Range: INR 2 to 3 (Target INR of 2.5) Note: For patients treated with VKA drugs, such as warfarin, the [place] [employer] 2012 Guideline recommends a therapeutic INR range of 2 to 3 (target INR of 2.5). This recommendation includes high-risk patients with antiphospholipid syndrome with previous arterial or venous thromboembolism, current-generation mechanical or bioprosthetic aortic heart valve replacement. Note: Patients with mechanical aortic valve replacement and additional risk factors for thromboembolic events (atrial fibrillation, previous thromboembolism, LV dysfunction, hypercoagulable conditions) or an older generation mechanical AVR (i.e., ball in-Cage) or any mechanical MVR should have a INR therapeutic range of 2.5 to 3.5 (target INR of 3). Rosibel GH, et al. Chest 2012, 141:7S-47S Beth STEVENSON et al. [facility] 2017, 70: 252-289 Anemia Evaluation: Anemic: No Accept Blood: Blood Conservation Committee: Ferritin: FE+TIBC: Fe Sat: FOBT: Anemia Treatment: UA No results found for: UPH, SPGR, UGLUC, UBILI, UKET, UHB, UPROT, UROBILINOGEN, NITRITES, LEUKEST, UWBC, BACTERIAUR Type AND Screen: ABO Group A RH Type Positive Antibody Screen NEGATIVE NEGATIVE Blood Bank Comment PAT specimen RBC Cross match: 2 units MRSA Screen: Pending and treated with mupriocin Chronic Lung Disease: Yes, recent ex-smoker FEVI: 73%. DLCO: 61% ABG: MISTY: No IMAGING/PROCEDURES CXR: N/A see CT chest Cardiac Catheterization: Left heart assessment: LVEF: LV gram 60% Normal LV wall motion Left main: Mild calcification, nonobstructive LAD: Proximal LAD disease up to 75%, there is an area of aneurysmal dilatation at the takeoff of the large diagonal vessel Circumflex artery: Mid circumflex: 75% stenosis, OM 1: Ostial 75% stenosis Right coronary artery: Mild luminal irregularities, less than 30%. Right PDA: Mid 80% stenosis 2D Echo: 55% EF: 55% FINDINGS: ? LEFT VENTRICLE The left ventricle is small. Left ventricular systolic function is normal. Grade I left ventricular diastolic dysfunction. Mitral annular lateral E/e': 9.2. Mitral annular septal E/e': 14.7. Wall Motion: All scored segments are normal. ? ? RIGHT VENTRICLE The right ventricle is normal in size. Right ventricular systolic function is normal. RV systolic tissue Doppler velocity ?is 13.0 cm/s. Tricuspid annular displacement is 2.1 cm. Estimated right ventricular systolic pressure is not reported due to an insufficient tricuspid regurgitation signal. Estimated right atrial pressure is not included as the IVC was not seen. ? LEFT ATRIUM The left atrial cavity is normal in size. ? RIGHT ATRIUM Unable to reliably measure RA volume due to technical limitations. ? MITRAL VALVE The mitral valve leaflets are structurally normal. There is trace mitral valve regurgitation. The pressure half time is 87 msec. The peak mitral E/A ratio is 0.90. The average mitral E/e' ratio is 11.9. The mitral flow deceleration time is 300 msec. ? TRICUSPID VALVE The tricuspid valve leaflets are structurally normal. There is trace tricuspid valve regurgitation. ? AORTIC VALVE The aortic valve cusps are structurally normal. There is no aortic valve regurgitation. Tricuspid aortic valve. ? PULMONIC VALVE The pulmonic valve cusps are structurally normal. There is no pulmonic valve regurgitation. ? AORTA The visualized aorta is dilated. Measurements - Sinus: 4.4 cm. Sinotubular junction 3.3 cm. Mid ascending aorta 3.7 ?cm. PULMONARY ARTERIES The pulmonary arteries are unseen or not interrogated. ? PERICARDIUM There is no pericardial effusion. There is an epicardial fat pad. ? CONCLUSIONS: - Technically difficult exam due to body habitus. - Exam indication: CAD - The left ventricle is small. Left ventricular systolic function is normal. EF = 55 ? 5% (visual est.) Grade I left ventricular diastolic dysfunction. - The right ventricle is normal in size. Right ventricular systolic function is normal. - There are no significant valvular abnormalities. - The visualized aorta is dilated with a maximal dimension of 4.4 cm. - Definity contrast could not be administered d/t unavailability of staff. - Exam was compared with the prior echocardiographic exam performed on 01/14/2014 (Stress echo), Aortic root has increased in size from 4.0 to 4.4 cm now. 5 Meter Walk Test: N/A OPTIONAL TESTINGS: Carotid U/S: Lower EXT JUAN F: Palmar Arch: Vein Mapping: Dental Clearance: CT Chest: IMPRESSION: Moderate emphysema with chronic airway inflammation. Indeterminate (less than 4 mm) pulmonary nodules/nodular densities. Incidental Finding: ?No follow-up imaging for this/these incidentally detected lung nodule(s) is recommended. If there are risk factors for lung malignancy, a follow-up chest CT exam could be obtained in 12 months. 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 Coronary artery disease. Medications: Blood thinners: Patient is on following blood thinners: Aspirin -Yes, dose 81 mg, stopped No Beta Gideon: Last dose of beta gideon taken: Metoprolol 25 mg BID Tylenol 1000 mg DOS: Yes Neurontin 200 mg DOS: Yes YANNICK/ARB: Stop 24 hours preop Yes Last dose date 02/21/2020 Steroids: No Chronic Immunosuppressive drugs: No Heparin stop time addressed: No Implantable Device: No Turned off date: Perioperative Transfusion risk STS Risk Factors: Advanced age No Preoperative anemia No Non-CABG surgery No Preoperative anticoagulation No Clotting abnormalities No Female gender No Small body habitus No Renal insufficiency No IDDM No Sepsis No Liver disease No Post-operative Wound Healing - Vest recommended Yes (Yes to any one of the below requires a post thorax vest) Risk Factors: Obesity Yes DM No Renal Dx No COPD Yes Bilateral MAHAD TBD CONSIDER PRAVENA: No Dietitian consultation: No Drinks provided (outpatient setting): Yes CLEARANCES NEEDED Pulmonary: No Hematology: No Nephrology No Vascular surgery No Other No Janneth Matt APRN.ELEUTERIO Normal [facility] HISTORY PHYSICALon 0 HISTORY PHYSICAL HNO ID: [id number] Author: Janneth (Karmen Castillo) ELEUTERIO Matt Service: ? Author Type: Nurse Practitioner Type: HANDP Filed: 02/16/2020 2:15 PM Note Text: UPDATED HISTORY AND PHYSICAL EXAMINATION SERVICE DATE: 02/16/2020 SERVICE TIME: 9:17 AM PHYSICAL EXAM MUST BE COMPLETED ON ADMISSION The History and Physical (completed in the past 30 days) has been reviewed and the patient has been examined. The contents accurately reflect the patient's condition with the following additions or revisions since the HANDP was completed. HPI: Yari Lopez is a 64 year old male with past medical history significant for CAD, HTN, HLD, IBS, smoking and recently quit, remote left empyema with chest tube placement. He had left heart cath that demonstrated MVCAD and LAD with 75% lesion and possible aneurysmal dilatation at the takeoff of the diagonal branch. Echo was done and showed normal EF, no valvular abnormalities, but noted dilated sinus to 4.[address] chest also noted dilated aortic root to 4.2 CM and calcifications. INTERVAL UPDATE: No new updates BP 124/70 (BP Site: Left Arm, BP Position: Sitting) Pulse 80 Resp 16 Ht 6' (1.829 m) Wt 226 lb (102.5 kg) SpO2 98% BMI 30.65 kg/m? LUNGS: Lungs clear to auscultation, Good diaphragmatic excursion CARDIAC: Normal S1 and S2; no rubs, murmurs, or gallops Murmur 1:3/6, mid systolic, low pitched, LLSB EXTREMITIES: No edema Provisional Diagnosis/Treatment Plan: CABG -Surgery date on 02/23/[address] Hinson -HANDP updated, and is consistent with recent evaluation with Dr. Hinson/ Dr. Del Angel -Reviewed all pre-op labs, imaging, and reports -MRSA swab done today in office and mupirocin prescription provided -Pre-op teaching and consultation done -CHG solution given to patient along with instructions -Contact information provided for additional questions or concerns -Instructed to take BB and ASA on DOS Janneth Matt APRN.CNP This HANDP can be found in the Electronic Medical Record dated 01/21/2020. SIGNATURE: Janneth Matt APRN.CNP PATIENT NAME: Yari Lopez DATE: February 16, 2020 TIME: 9:17 AM PAGER: [phone] Normal [facility] MRSA Screenon 02-16-2020 MRSA DNA PATRICIO+probe Ql (Unsp spec) Test performed at [facility] No MRSA detected. Normal [facility] Comment on above: Performed By: #### M RSA #### [place] [id number] Type and Screenon 02-16-2020 ABO group Nom (Bld) A Normal [facility] Comment on above: Performed By: #### T &S #### [place] [address] Comment PAT specimen Normal [facility] Comment on above: Performed By: #### T &S #### [address] [place], [place] [address] RH Type Positive Normal [facility] Comment on above: Performed By: #### T &S #### [place] [address] Urinalysis, reflexon 020 Reflex Comment see below Normal [facility] Comment on above: Result Comment: Refl ex to culture is not indicated based on established laboratory criteria. Performed By: #### U RIN #### [facility] [address] [place] [address] Bacteria LM.HPF (Urine sed) [#/Area] NONE Normal None [facility] Comment on above: Performed By: #### U RIN #### [place] [address] Ep Cells Urine 0.3 /hpf Normal 0.0-5.0 [facility] Comment on above: Performed By: #### U RIN #### [place] [address] Hyaline Cast 0.0 /lpf Normal 0.0-1.0 [facility] Comment on above: Performed By: #### U RIN #### [place] [address] RBC LM.HPF (Urine sed) [#/Area] 2.5 /[HPF] Normal 0.0-5.0 [facility] Comment on above: Performed By: #### U RIN #### [place] [address] WBC, reflex 0.50 /hpf Normal 0.00-5.00 [facility] Comment on above: Performed By: #### U RIN #### [place] [address] Appearance (U) CLEAR Normal [facility] Comment on above: Performed By: #### U RIN #### [place] [address] Bilirubin (U) [Mass/Vol] Negative Normal Negative [facility] Comment on above: Performed By: #### U RIN #### [place] [id number] Color (U) YELLOW Normal [facility] Comment on above: Performed By: #### U RIN #### [facility] [address] [place] [address] Glucose Ql (U) Negative Normal Negative [facility] Comment on above: Performed By: #### U RIN #### [facility] [address] [place] [address] Hemoglobin,Urine Negative Normal Negative [facility] Comment on above: Performed By: #### U RIN #### [facility] [address] [place] [address] Ketone Urine Negative Normal Negative [facility] Comment on above: Performed By: #### U RIN #### [facility] [address] [place] [address] Leukocyte esterase Test strip Ql (U) Negative Normal Negative [facility] Comment on above: Performed By: #### U RIN #### [place] [address] Nitrite reflex Negative Normal Negative [facility] Comment on above: Performed By: #### U RIN #### [place] [address] pH (U) 6.0 [pH] Normal 5.0-8.0 [facility] Comment on above: Performed By: #### U RIN #### [place] [address] Protein (U) [Mass/Vol] Negative Normal Negative [facility] Comment on above: Performed By: #### U RIN #### [facility] [address] [place] [address] Specific [place], Ur 1.026 Normal 1.005-1.030 [facility] Comment on above: Performed By: #### U RIN #### [facility] [address] [place] [address] Urobilinogen,Ur 1.0 EU/dL Normal 0.2-1.0 [facility] Comment on above: Performed By: #### U RIN #### [place] [address] Tanika 02-12-2020 CNPN Telephone (AGVASACC) YARI LOPEZ ([id number]) 1955 M Date Time Provider Department 02/12/20 UVALDO TAPIA (GOLF CART ATTENDANT, CHICKEN TENDER) [facility] During your visit today, we recorded the following information about you: Elizabeth Haider 03/02/2020 10:37 AM Signed Patient was notified that the case has been r/s to 03/08/20 at 730am with a 6 am arrival time and was agreeable Allergies As of Date: 02/12/2020 Noted Allergy Reaction PENICILLINS 12/26/2010 7 - Swelling Date Reviewed: 02/11/2020 Reviewed by: Annette (Aircraft Engine Specialist) GIOVANNA Gross - Fully Assessed Reason for Visit: Schedule Surgery [1330] Prescriptions as of 02/12/2020 Sig: BUPROPION XL 300 MG 24 HR TAB Take 300 mg by mouth once daniel* CHOLECALCIFEROL (VITAMIN D3) * Take 2,000 Units by mouth onc* X PERFLUTREN LIPID MICROSPHERES* Inject 1.3 mL intravenously a* Patient not taking: Reported on 02/16/2020 NAPROXEN ORAL Take 220 mg by mouth. Takes 2 IBUPROFEN 200 MG CAPSULE Take by mouth. Takes 2 PRAVASTATIN 80 MG TABLET Take 1 tablet by mouth once d* LOSARTAN 50 MG TABLET Take 1 tablet by mouth once d* NITROGLYCERIN 0.4 MG SUBLINGU* Dissolve 1 tablet under the t* TADALAFIL 10 MG TABLET Take 1 tablet by mouth as nee* ACETAMINOPHEN 325 MG TABLET Take 2 tablets by mouth every* ASPIRIN 325 MG TABLET Take 1 tablet by mouth once d* Patient taking differently: Take 81 mg by mouth once eduin* Problem List As Of Date 02/12/2020 Noted Resolved Coronary arteriosclerosis in [place] artery [I25*12/14/2013 Chest discomfort [R07.89] 12/14/2013 Heart murmur, systolic [R01.1] 12/14/2013 SOB (shortness of breath) on exertion [R06.02] 12/14/2013 Fatigue [R53.83] 12/14/2013 Dyslipidemia [E78.5] 07/25/2016 Tobacco abuse [Z72.0] 07/25/2016 Essential hypertension [I10] 01/17/2017 Encounter Status:Closed by UVALDO TAPIA CNP on 02/12/20 [facility] CNCOon 02-04-2020 CNCO Letter Text [facility] CNPNon 02-04-2020 CNPN Telephone (Axial) YARI LOPEZ ([id number]) 1955 M Date Time Provider Department 02/04/20 JANNETH MATT ([facility]) [facility] During your visit today, we recorded the following information about you: Allergies As of Date: 02/04/2020 Noted Allergy Reaction PENICILLINS 12/26/2010 7 - Swelling Date Reviewed: 01/21/2020 Reviewed by: Symone BranhcAsbestos Removal Supervisor) Kyler - Fully Assessed Reason for Visit: Insurance Authorization [[id number]] Cmt: For CT Scheduled 02/10: [id number] valid until 03/20/2020 Prescriptions as of 02/04/2020 Sig: BUPROPION XL 300 MG 24 HR TAB Take 300 mg by mouth once daniel* CHOLECALCIFEROL (VITAMIN D3) * Take 2,000 Units by mouth onc* PERFLUTREN LIPID MICROSPHERES* Inject 1.3 mL intravenously a* NAPROXEN ORAL Take 220 mg by mouth. Takes 2 IBUPROFEN 200 MG CAPSULE Take by mouth. Takes 2 PRAVASTATIN 80 MG TABLET Take 1 tablet by mouth once d* LOSARTAN 50 MG TABLET Take 1 tablet by mouth once d* NITROGLYCERIN 0.4 MG SUBLINGU* Dissolve 1 tablet under the t* TADALAFIL 10 MG TABLET Take 1 tablet by mouth as nee* ACETAMINOPHEN 325 MG TABLET Take 2 tablets by mouth every* ASPIRIN 325 MG TABLET Take 1 tablet by mouth once d* Patient taking differently: Take 81 mg by mouth once eduin* Problem List As Of Date 02/04/2020 Noted Resolved Coronary arteriosclerosis in [place] artery [I25*12/14/2013 Chest discomfort [R07.89] 12/14/2013 Heart murmur, systolic [R01.1] 12/14/2013 SOB (shortness of breath) on exertion [R06.02] 12/14/2013 Fatigue [R53.83] 12/14/2013 Dyslipidemia [E78.5] 07/25/2016 Tobacco abuse [Z72.0] 07/25/2016 Essential hypertension [I10] 01/17/2017 Encounter Status:Closed by JANNETH MATT CNP on 02/04/20 [facility] Tanika 01-25-2020 ELEUTERION Telephone (AGVASACC) YARI LOPEZ ([id number]) 1955 M Date Time Provider Department 01/25/20 MIAH HINSON During your visit today, we recorded the following information about you: Dank Manzanodavid 01/25/2020 11:48 AM Signed PAT 02/16/20 1pm with Janneth Matt CNP. Labs to be drawn prior to this appt. CABG 02/23/20 arrival time 6:00am procedure time 7:30am at [facility]. Surgery booklet mailed to pt's home. Appointment dates phoned to pt. Allergies As of Date: 01/25/2020 Noted Allergy Reaction PENICILLINS 12/26/2010 7 - Swelling Date Reviewed: 01/21/2020 Reviewed by: Symone Chávez - Fully Assessed Reason for Visit: Schedule Surgery [1330] Order(s):SURGICAL REQUEST - ELECTIVE [[id number]] Order #: [id number]: 1 Prescriptions as of 01/25/2020 Sig: BUPROPION XL 300 MG 24 HR TAB Take 300 mg by mouth once daniel* CHOLECALCIFEROL (VITAMIN D3) * Take 2,000 Units by mouth onc* PERFLUTREN LIPID MICROSPHERES* Inject 1.3 mL intravenously a* NAPROXEN ORAL Take 220 mg by mouth. Takes 2 IBUPROFEN 200 MG CAPSULE Take by mouth. Takes 2 PRAVASTATIN 80 MG TABLET Take 1 tablet by mouth once d* LOSARTAN 50 MG TABLET Take 1 tablet by mouth once d* NITROGLYCERIN 0.4 MG SUBLINGU* Dissolve 1 tablet under the t* TADALAFIL 10 MG TABLET Take 1 tablet by mouth as nee* ACETAMINOPHEN 325 MG TABLET Take 2 tablets by mouth every* ASPIRIN 325 MG TABLET Take 1 tablet by mouth once d* Patient taking differently: Take 81 mg by mouth once eduin* Problem List As Of Date 01/25/2020 Noted Resolved Coronary arteriosclerosis in [place] artery [I25*12/14/2013 Chest discomfort [R07.89] 12/14/2013 Heart murmur, systolic [R01.1] 12/14/2013 SOB (shortness of breath) on exertion [R06.02] 12/14/2013 Fatigue [R53.83] 12/14/2013 Dyslipidemia [E78.5] 07/25/2016 Tobacco abuse [Z72.0] 07/25/2016 Essential hypertension [I10] 01/17/2017 Encounter Status:Closed by DANK BAILEY on 01/25/20 [facility] CNPN Telephone (JAMARCUSGRID) YARI LOPEZ ([id number]) 1955 M Date Time Provider Department 01/25/20 MIAH HINSON During your visit today, we recorded the following information about you: Dank Bailey 01/25/2020 9:54 AM Signed Phoned pt with testing appts: 02/11/20 8:00am echo, 9:00am PFT'S, AND 10:20am CT Chest wo contrast @ [facility]. NPO [address] scan. Pt to call back to schedule PAT AND CABG. Allergies As of Date: 01/25/2020 Noted Allergy Reaction PENICILLINS 12/26/2010 7 - Swelling Date Reviewed: 01/21/2020 Reviewed by: Symone Perry) Kyler - Fully Assessed Reason for Visit: Future Appointment [256] Prescriptions as of 01/25/2020 Sig: BUPROPION XL 300 MG 24 HR TAB Take 300 mg by mouth once daniel* CHOLECALCIFEROL (VITAMIN D3) * Take 2,000 Units by mouth onc* PERFLUTREN LIPID MICROSPHERES* Inject 1.3 mL intravenously a* NAPROXEN ORAL Take 220 mg by mouth. Takes 2 IBUPROFEN 200 MG CAPSULE Take by mouth. Takes 2 PRAVASTATIN 80 MG TABLET Take 1 tablet by mouth once d* LOSARTAN 50 MG TABLET Take 1 tablet by mouth once d* NITROGLYCERIN 0.4 MG SUBLINGU* Dissolve 1 tablet under the t* TADALAFIL 10 MG TABLET Take 1 tablet by mouth as nee* ACETAMINOPHEN 325 MG TABLET Take 2 tablets by mouth every* ASPIRIN 325 MG TABLET Take 1 tablet by mouth once d* Patient taking differently: Take 81 mg by mouth once eduin* Problem List As Of Date 01/25/2020 Noted Resolved Coronary arteriosclerosis in [place] artery [I25*12/14/2013 Chest discomfort [R07.89] 12/14/2013 Heart murmur, systolic [R01.1] 12/14/2013 SOB (shortness of breath) on exertion [R06.02] 12/14/2013 Fatigue [R53.83] 12/14/2013 Dyslipidemia [E78.5] 07/25/2016 Tobacco abuse [Z72.0] 07/25/2016 Essential hypertension [I10] 01/17/2017 Encounter Status:Closed by DANK BAILEY on 01/25/20 [facility] HOSPon 01-25-2020 HOSP Patient:Bart Lopez MRN: Height:6' 0 (1.829 m) Weight:226 lb (102.513 kg) Outpatient Medications as of 03/08/20: coenzyme Q10 (COENZYME Q-10) 100 mg cap capsule Docusate Sodium 250 mg capsule gabapentin (NEURONTIN) 100 mg capsule metoprolol tartrate, short acting, (LOPRESSOR) 25 mg tablet buPROPion XL (WELLBUTRIN XL) 300 mg 24 hr tablet Cholecalciferol, Vitamin D3, (VITAMIN D-3) 50 mcg (2,000 unit) cap Ibuprofen 200 mg cap pravastatin (PRAVACHOL) 80 mg tablet losartan (COZAAR) 50 mg tablet nitroglycerin sublingual (NITROSTAT) 0.4 mg SL tablet acetaminophen (TYLENOL) 325 mg tablet aspirin 325 mg tablet Admission/Clinic Administered Medications as of 03/08/20: cold induction cardioplegia solution 500 mL maintenance cardioplegia solution 1,000 mL heparin 3,000 Units in NaCl 0.9% 500 mL irrigation PHENYLephrine 20 mg in NaCl 0.9% 250 mL (GABE-SYNEPHRINE) aminocaproic acid 25 g in NaCl 0.9% 250 mL (AMicAR) dexmedetomidine 400 mcg in NaCl 0.9% 100 mL (PRECEDEX) EPINEPHrine 4 mg in NaCl 0.9% 250 mL insulin regular iv infusion 100 units in NaCl 0.9% 100 mL - AK CARD SURG NOMOGRAM nitroglycerin 100 mg in D5W 250 mL NORepinephrine 16 mg in NaCl 0.9% 250 mL (LEVOPHED) PHENYLephrine iv infusion 10 mg in NaCl 0.9% 250 mL (AGBE-SYNEPHRINE) Problem List: Coronary arteriosclerosis in [place] artery [I25.10] Chest discomfort [R07.89] Heart murmur, systolic [R01.1] SOB (shortness of breath) on exertion [R06.02] Fatigue [R53.83] Dyslipidemia [E78.5] Tobacco abuse [Z72.0] Essential hypertension [I10] Allergies: Penicillins Date Verified: 03/08/20 Lab Values Lab Value Units Date High Low POTA* 4.2 mmol/L 02/11/2020 5.1 3.7 SARAH* 40.2 % 02/11/2020 51.0 39.0 Progress Notes ([facility] CTVS): Symone Chávez LPN 02/24/2020 3:01 PM Signed Asa cleary requesting a call back regarding patient. They are wanting to know of he is off work because of his surgery or because he is high risk for COVID-19. His claim # is [id number] Janneth Matt APRN.CHICKEN TENDER, CHICKEN TENDER 02/24/2020 4:38 PM Signed LVVACB Janneth Matt APRN.CNP, CNP 02/25/2020 10:38 AM Signed Telephone call made back to Kathleen Cardoso at [employer] [phone] ext *[phone] [facility] #[id number], fax #[phone]. We discussed the situation with Mr Lopez' surgery, originally scheduled 02/23/2020, but delayed due to his Covid 19 exposure. Mr Lopez reported that he will be out of quarantine 03/03/2020. He is tentatively rescheduled for 03/08. Dr Hinson does require that he be tested and negative for Covid 19 prior to moving forward with surgery. I can either arrange testing through [facility] or he may be test in [place] with results faxed back to us. Kathelen understood our situation and agreed to this plan. She asked that this be documented in a letter I further reviewed with the above with Mr Lopez. NANDO Lawrence APRN.CNP, CNP 02/25/2020 1:11 PM Signed Order for Covid 19 Testing for Mr Lopez emailed to [email or web address]. Testing should not occur prior to 03/03/2020 and results should be faxed to my attention. Janneth Matt APRN.CNP Progress Notes (AK PROVIDER ADULT): Janneth Matt APRN.CNP, CNP 02/17/2020 12:34 PM Signed Mr Lopez called to report that his is a person under investigation for Covid19. Since she started feeling ill, they have maintained a 6 foot minimum distance. He is wondering whether this will change surgery plans. I have advised him to monitor his temperature daily and report her results. We will review and advise. NANDO Lawrence APRN.CNP, CNP 02/19/2020 1:15 PM Signed Mr. Lopez called back to report that his 's covid 19 test came back as positive. He has been self quarantining, however, his surgery has been delayed to allow for an adequate quarantine period. His labs and HANDP are valid until 03/17/2020. NANDO Lawrence APRN.CNP, CNP 02/19/2020 3:47 PM Signed As a result of the 02/02/20 order by [facility] of Health Director Marzena Farris M.D. to cancel non-essential surgeries that would use PPE, unless special criteria are met, I have reviewed the clinical record for this patient and have determined that the scheduled procedure does not meet criteria to go forward and should be cancelled pursuant to Director Kaleigh?s Order. The procedure will be rescheduled as soon as possible after the 02/02/20 emergency order has been lifted. Janneth Matt APRN.CNP [facility] CNOVon 01-21-2020 CNOV Office Visit (FRANCES CC) YARI LOPEZ ([id number]) 1955 M Date Time Provider Department 01/21/20 4:00 PM MIAH HINSON During your visit today, we recorded the following information about you: Pulse Respiration Blood pressure Weight 85/minute 18/minute 152/80 99.8 kg Height 1.829 m Janneth Matt APRN.CNP, CNP 01/21/2020 5:35 PM Signed RISK SCORES Procedure: Isolated CAB Risk of Mortality: 0.382% Renal Failure: 0.556% Permanent Stroke: 0.543% Prolonged Ventilation: 2.633% DSW Infection: 0.168% Reoperation: 1.506% Morbidity or Mortality: 4.378% Short Length of Stay: 70.474% Long Length of Stay: 1.340% Janneth Matt APRN.CNP, CNP 01/21/2020 5:17 PM Addendum You are seeing Dr Hinson at the request of Dr He for coronary artery disease and consideration of coronary artery bypass graft surgery. He agrees with the recommendation for bypass surgery. In preparation for surgery there are additional tests he'd like you to have: 1. Lung function studies 2. CT scan of your chest 3. Echocardiogram 4. Labs 5. Please have [place] fax any reports and images from your recent ER. Surgery should be scheduled in the near future. Wade from our office will call you to schedule these tests and surgery tomorrow. About a week prior to surgery, you will return to this office for presurgery test review and teaching. Please do not hesitate to contact us if you have any questions. Janneth Matt, GOLF CART ATTENDANT.CHICKEN TENDER [phone] Miah Hinson MD 01/21/2020 5:35 PM Signed CARDIOTHORACIC SURGERY CONSULT / HANDP SERVICE DATE: 01/21/2020 SERVICE TIME: 5:22 PM Subjective PRIMARY SERVICE: Cardiothoracic Surgery CHIEF COMPLAINT: MV CAD, angina, abnormal stress test. HPI: This is a 64 year old man referred for evaluation of severe MV CAD. He is experiencing exertional dyspnea and episodes of exertional and non exertional chest pressure. He notes increased fatigue and lack of energy. Stress test shows a mid inferior wall medium sized zone of inducible ischemia; EF 68%. Cath show severe MV CAD including: LAD proximal 75% Circumflex: mid 75% and ostial OM 75% RCA: mid 80% stenosis Risk factors for CAD include: Tobacco use - just stopped Possible pulmonary fibrosis h/o left empyema requiring chest tube drainage, remote He denies orthopnea edema. He denies diabetes, [place], CHF, etc. PAST MEDICAL HISTORY Diagnosis Date - Coronary artery disease without angina pectoris - Hernia 1971 - Hypercholesteremia - Hypertension - IBS (irritable bowel syndrome) PAST SURGICAL HISTORY Procedure Laterality Date - CARDIAC CATH 12/31/2019 @ [facility] by Dr. He - CHEST TUBE - INSERT 1984 HAD PNEUMONIA - FOOT SURGERY HX - HERNIA REPAIR HX FAMILY HISTORY Problem Relation Age of Onset - Ischemic Heart Disease Mother - Ischemic Heart Disease Father - other (HEART ATTACK) Father - Breast Cancer Sister - Coronary Artery Disease Sister Social History Tobacco Use - Smoking status: Former Smoker Packs/day: 1.50 Types: Cigarettes Start date: 01/16/1965 Last attempt to quit: 01/16/2020 Years since quittin.0 - Smokeless tobacco: Current User Types: Snuff Substance Use Topics - Alcohol use: Yes Alcohol/week: 5.0 - 10.0 standard drinks Types: 2 - 4 Cans of Beer (12oz) per week - Drug use: Yes Comment: VERY RARE USE (Not in a hospital admission) buPROPion XL (WELLBUTRIN XL) 300 mg 24 hr tablet, Take 300 mg by mouth once daily. Cholecalciferol, Vitamin D3, (VITAMIN D-3) 50 mcg (2,000 unit) cap, Take 2,000 Units by mouth once daily. NAPROXEN ORAL, Take 220 mg by mouth. Takes 2 Ibuprofen 200 mg cap, Take by mouth. Takes 2 pravastatin (PRAVACHOL) 80 mg tablet, Take 1 tablet by mouth once daily. losartan (COZAAR) 50 mg tablet, Take 1 tablet by mouth once daily. nitroglycerin sublingual (NITROSTAT) 0.4 mg SL tablet, Dissolve 1 tablet under the tongue as needed. FOR CHEST PAIN. IF NO RELIEF CALL 911 Tadalafil (CIALIS) 10 mg tablet, Take 1 tablet by mouth as needed. acetaminophen (TYLENOL) 325 mg tablet, Take 2 tablets by mouth every 4 hours as needed. FOR PAIN. aspirin 325 mg tablet, Take 1 tablet by mouth once daily. perflutren lipid microspheres (DEFINITY) 1.1 mg/mL injection (to be provided with echo procedure), Inject 1.3 mL intravenously as directed. Administration Instructions: If no IV access, insert saline lock prior to administering contrast. Discontinue saline lock post exam. If patient has central line or IVAD, may access for administration according to line specific nursing protocol. Once exam is complete, flush line and de-access per line specific nursing protocol. Diluted IV Bolus: Dilute 1.3 ml of Definity with 8.7 ml of preservative-free saline. ALLERGIES Allergen Reactions - Penicillins Swelling REVIEW OF SYSTEMS: REVIEW OF SYSTEMS: GENERAL: Fever - No Chills - No Night sweats - No Changes in weight - No NEUROLOGICAL: Headaches - No Seizures - No Passing out - No History of stroke or mini-stroke - No Head injury or trauma - No Numbness, tingling or sensation of pins and needles - No HEAD, EYES, EARS, NOSE, AND THROAT: Changes in hearing - No Changes in vision - No Nose bleeds - No CARDIOVASCULAR: Chest pain or pressure - Yes Palpitations - No Valvular heart disease - No High blood pressure - Yes Irregular heart rate - No Heart attack - No Heart failure - No High Cholesterol - Yes History of rheumatic fever - No History of Scarlet fever - No History of atrial fibrillation - No RESPIRATORY: Cough - No Wheezing - No Shortness of breath - No Shortness of breath with exertion - Yes Coughing up blood - No Asthma - No Bronchitis - No Blood clot in your lung - No GASTROINTESTINAL: Abdominal discomfort - No Nausea - No Vomiting - No Diarrhea - No Constipation - No Difficulty swallowing - No Pain with swallowing - No Stomach pain after eating - No Passing blood with bowel movement - No Black tarry stool - No History of stomach ulcers - No Acid reflux or heartburn - No GENITOURINARY: GENITOURINARY: EXTREMITY: Edema (swelling) - No Intermittent claudication (pain with walking) - No MUSCULOSKELETAL: Joint pain - No Joint swelling - No Back pain - No Muscle pain or ache - No Skin: Rash - No Lesions - No Sores - No Ulcers - No Tenderness - No Skin cancer - No HEMATOLOGY: Bleeding disorder - No Easy bruising - No Anemia - No Cancer - No Blood transfusions - No Blood clots - No ENDOCRINE: Diabetes - No Thyroid disorder - No PSYCHOLOGICAL: Depression - No Anxiety - No OTHER: Objective PHYSICAL EXAM: BP 152/80 (BP Site: Left Arm, BP Position: Sitting) Pulse 85 Resp 18 Ht 6' (1.829 m) Wt 220 lb (99.8 kg) SpO2 97% BMI 29.84 kg/m? Body surface area is 2.25 meters squared. STS RISK CALCULATOR: 0.8 STS Calculator On examination, he appears well and is breathing comfortably. Vitals signs are BP 152/80 (BP Site: Left Arm, BP Position: Sitting) Pulse 85 Resp 18 Ht 6' (1.829 m) Wt 220 lb (99.8 kg) SpO2 97% BMI 29.84 kg/m? . There is no JVD. No cervical or supraclavicular adenopathy is palpated. The chest is symmetrical without deformity. Breath sounds are clear bilaterally. The cardiac rhythm is regular. There are no rubs, gallops, or murmurs. The carotid, subclavian, and radial pulses are 2+ and equal bilaterally. The abdomen is soft and non-tender. There are no abdominal masses. There is no hepatojugular reflux. There is no pretibial edema. There is no clubbing or cyanosis. Lines, Drains, and Airways None Assessment/Plan Yari Lopez is 64 year old man with anginal symptoms, inducible ischemia, who is found to have severe MV CAD with normal LV function. I gree with the recommendation for MV CABG. The risks, benefits, and anticipated outcomes of the procedure; the risks and benefits of the alternatives to the procedure; and the roles and tasks of the personnel to be involved were discussed with the patient and he consents to the procedure and agrees to proceed. In preparation for surgery PFT's with room air ABG, 2D echocardiogram and CT scan of the chest will be obtained. Surgery is scheduled for the near future.. These findings will be communicated back to the requesting provider electronically. SIGNATURE: Miah Hinson MD PATIENT NAME: Yari Lopez DATE: January 21, 2020 TIME: 5:21 PM PAGER/CONTACT #: [phone] Referring Provider: ELBA HE [[id number]] Allergies As of Date: 01/21/2020 Noted Allergy Reaction PENICILLINS 12/26/2010 7 - Swelling Date Reviewed: 01/21/2020 Reviewed by: Symone (Asbestos Removal Supervisor) Kyler - Fully Assessed Reason for Visit: New Patient Evaluation [154] Cmt: CAD. referred by Dr He. Heart cath 12/31/19 [facility]. Uploaded Primary Visit Diagnosis:Coronary arteriosclerosis in [place] artery [I25.10] Other Visit Diagnosis:Tobacco use [Z72.0] Order(s):CBC [SQCBC] Order #: [id number] FUTURE TYPE + SCREEN [SQTSCR] Order #: [id number] FUTURE RBC PRODUCTS [6336811] Order #: [id number] FUTURE COMP METABOLIC PANEL [SQCMP] Order #: [id number] FUTURE PROTHROMBIN TIME/PT [SQPT] Order #: [id number] FUTURE XR CHEST 2V FRONTAL/LAT [1216953] Order #: [id number] FUTURE MRSA CULTURE SCREEN [SQMRSASC] Order #: [id number] FUTURE HGB A1C [DFRUK1Q] Order #: [id number] FUTURE TSH BLD [SQTSH] Order #: [id number] FUTURE MAGNESIUM BLD [SQMG1] Order #: [id number] FUTURE SPIROMETRY BASELINE ONLY [3604243] Order #: [id number] FUTURE LUNG DIFFUSION CAPACITY (DLCO) [5066609] Order #: [id number] FUTURE LUNG VOLUMES [7290772] Order #: [id number] FUTURE CT CHEST WO IVCON [5602294] Order #: [id number] FUTURE ECHO [632202] Order #: [id number]: 1 FUTURE perflutren lipid microspheres (DEFINITY) 1.1 mg/mL injection (to be provided with echo procedure)Inject 1.3 mL intravenously as directed. Administration Instructions: If no IV access, insert saline lock prior to administering contrast. Discontinue saline lock post exam. If patient has central line or IVAD, may access for administration according to line specific nursing protocol. Once exam is complete, flush line and de-access per line specific nursing protocol. Diluted IV Bolus: Dilute 1.3 ml of Definity with 8.7 ml of preservative-free saline.Disp: 1.3 mLRfl: 0 Prescriptions as of 01/21/2020 Sig: BUPROPION XL 300 MG 24 HR TAB Take 300 mg by mouth once daniel* CHOLECALCIFEROL (VITAMIN D3) * Take 2,000 Units by mouth onc* NAPROXEN ORAL Take 220 mg by mouth. Takes 2 IBUPROFEN 200 MG CAPSULE Take by mouth. Takes 2 PRAVASTATIN 80 MG TABLET Take 1 tablet by mouth once d* LOSARTAN 50 MG TABLET Take 1 tablet by mouth once d* NITROGLYCERIN 0.4 MG SUBLINGU* Dissolve 1 tablet under the t* TADALAFIL 10 MG TABLET Take 1 tablet by mouth as nee* ACETAMINOPHEN 325 MG TABLET Take 2 tablets by mouth every* ASPIRIN 325 MG TABLET Take 1 tablet by mouth once d* Patient taking differently: Take 81 mg by mouth once eduin* PERFLUTREN LIPID MICROSPHERES* Inject 1.3 mL intravenously a* Problem List As Of Date 01/21/2020 Noted Resolved Coronary arteriosclerosis in [place] artery [I25*12/14/2013 Chest discomfort [R07.89] 12/14/2013 Heart murmur, systolic [R01.1] 12/14/2013 SOB (shortness of breath) on exertion [R06.02] 12/14/2013 Fatigue [R53.83] 12/14/2013 Dyslipidemia [E78.5] 07/25/2016 Tobacco abuse [Z72.0] 07/25/2016 Essential hypertension [I10] 01/17/2017 Other instructions from your clinician: You are seeing Dr Hinson at the request of Dr He for coronary artery disease and consideration of coronary artery bypass graft surgery. He agrees with the recommendation for bypass surgery. In preparation for surgery there are additional tests he'd like you to have: 1. Lung function studies 2. CT scan of your chest 3. Echocardiogram 4. Labs 5. Please have [facility] fax any reports and images from your recent ER. Surgery should be scheduled in the near future. Wade from our office will call you to schedule these tests and surgery tomorrow. About a week prior to surgery, you will return to this office for presurgery test review and teaching. Please do not hesitate to contact us if you have any questions. Janneth Matt, GOLF CART ATTENDANT.CHICKEN TENDER [phone] Prescriptions ordered this encounter Disp Refills Start End PERFLUTREN LIPID MICROSPHERES 1.1 MG* 1.3 * 0 01/21/2020 01/20/2021 Class: In Office Route: INTRAVENOUS Sig: Inject 1.3 mL intravenously as directed. Administration Instructions: If no IV access, insert saline lock prior to administering contrast. Discontinue saline lock post exam. If patient has central line or IVAD, may access for administration according to line specific nursing protocol. Once exam is complete, flush line and de-access per line specific nursing protocol. Diluted IV Bolus: Dilute 1.3 ml of Definity with 8.7 ml of preservative-free saline. Level of Service: NEW PATIENT VISIT LEVEL 5 [26064] Letter Text Encounter Status:Closed by MIAH HINSON MD on 01/21/20 [facility] HISTORY PHYSICALon 0 HISTORY PHYSICAL HNO ID: [id number] Author: Miah Hinson Service: ? Author Type: Physician Type: HANDP Filed: 01/21/2020 5:35 PM Note Text: CARDIOTHORACIC SURGERY CONSULT / HANDP SERVICE DATE: 01/21/2020 SERVICE TIME: 5:22 PM Subjective PRIMARY SERVICE: Cardiothoracic Surgery CHIEF COMPLAINT: MV CAD, angina, abnormal stress test. HPI: This is a 64 year old man referred for evaluation of severe MV CAD. He is experiencing exertional dyspnea and episodes of exertional and non exertional chest pressure. He notes increased fatigue and lack of energy. Stress test shows a mid inferior wall medium sized zone of inducible ischemia; EF 68%. Cath show severe MV CAD including: LAD proximal 75% Circumflex: mid 75% and ostial OM 75% RCA: mid 80% stenosis Risk factors for CAD include: Tobacco use - just stopped Possible pulmonary fibrosis h/o left empyema requiring chest tube drainage, remote He denies orthopnea edema. He denies diabetes, WA, CHF, etc. PAST MEDICAL HISTORY Diagnosis Date - Coronary artery disease without angina pectoris - Hernia 1971 - Hypercholesteremia - Hypertension - IBS (irritable bowel syndrome) PAST SURGICAL HISTORY Procedure Laterality Date - CARDIAC CATH 12/31/2019 @ [facility] by Dr. He - CHEST TUBE - INSERT 1984 HAD PNEUMONIA - FOOT SURGERY HX - HERNIA REPAIR HX FAMILY HISTORY Problem Relation Age of Onset - Ischemic Heart Disease Mother - Ischemic Heart Disease Father - other (HEART ATTACK) Father - Breast Cancer Sister - Coronary Artery Disease Sister Social History Tobacco Use - Smoking status: Former Smoker Packs/day: 1.50 Types: Cigarettes Start date: 01/16/1965 Last attempt to quit: 01/16/2020 Years since quittin.0 - Smokeless tobacco: Current User Types: Snuff Substance Use Topics - Alcohol use: Yes Alcohol/week: 5.0 - 10.0 standard drinks Types: 2 - 4 Cans of Beer (12oz) per week - Drug use: Yes Comment: VERY RARE USE (Not in a hospital admission) buPROPion XL (WELLBUTRIN XL) 300 mg 24 hr tablet, Take 300 mg by mouth once daily. Cholecalciferol, Vitamin D3, (VITAMIN D-3) 50 mcg (2,000 unit) cap, Take 2,000 Units by mouth once daily. NAPROXEN ORAL, Take 220 mg by mouth. Takes 2 Ibuprofen 200 mg cap, Take by mouth. Takes 2 pravastatin (PRAVACHOL) 80 mg tablet, Take 1 tablet by mouth once daily. losartan (COZAAR) 50 mg tablet, Take 1 tablet by mouth once daily. nitroglycerin sublingual (NITROSTAT) 0.4 mg SL tablet, Dissolve 1 tablet under the tongue as needed. FOR CHEST PAIN. IF NO RELIEF CALL 911 Tadalafil (CIALIS) 10 mg tablet, Take 1 tablet by mouth as needed. acetaminophen (TYLENOL) 325 mg tablet, Take 2 tablets by mouth every 4 hours as needed. FOR PAIN. aspirin 325 mg tablet, Take 1 tablet by mouth once daily. perflutren lipid microspheres (DEFINITY) 1.1 mg/mL injection (to be provided with echo procedure), Inject 1.3 mL intravenously as directed. Administration Instructions: If no IV access, insert saline lock prior to administering contrast. Discontinue saline lock post exam. If patient has central line or IVAD, may access for administration according to line specific nursing protocol. Once exam is complete, flush line and de-access per line specific nursing protocol. Diluted IV Bolus: Dilute 1.3 ml of Definity with 8.7 ml of preservative-free saline. ALLERGIES Allergen Reactions - Penicillins Swelling REVIEW OF SYSTEMS: REVIEW OF SYSTEMS: GENERAL: Fever - No Chills - No Night sweats - No Changes in weight - No NEUROLOGICAL: Headaches - No Seizures - No Passing out - No History of stroke or mini-stroke - No Head injury or trauma - No Numbness, tingling or sensation of pins and needles - No HEAD, EYES, EARS, NOSE, AND THROAT: Changes in hearing - No Changes in vision - No Nose bleeds - No CARDIOVASCULAR: Chest pain or pressure - Yes Palpitations - No Valvular heart disease - No High blood pressure - Yes Irregular heart rate - No Heart attack - No Heart failure - No High Cholesterol - Yes History of rheumatic fever - No History of Scarlet fever - No History of atrial fibrillation - No RESPIRATORY: Cough - No Wheezing - No Shortness of breath - No Shortness of breath with exertion - Yes Coughing up blood - No Asthma - No Bronchitis - No Blood clot in your lung - No GASTROINTESTINAL: Abdominal discomfort - No Nausea - No Vomiting - No Diarrhea - No Constipation - No Difficulty swallowing - No Pain with swallowing - No Stomach pain after eating - No Passing blood with bowel movement - No Black tarry stool - No History of stomach ulcers - No Acid reflux or heartburn - No GENITOURINARY: GENITOURINARY: EXTREMITY: Edema (swelling) - No Intermittent claudication (pain with walking) - No MUSCULOSKELETAL: Joint pain - No Joint swelling - No Back pain - No Muscle pain or ache - No Skin: Rash - No Lesions - No Sores - No Ulcers - No Tenderness - No Skin cancer - No HEMATOLOGY: Bleeding disorder - No Easy bruising - No Anemia - No Cancer - No Blood transfusions - No Blood clots - No ENDOCRINE: Diabetes - No Thyroid disorder - No PSYCHOLOGICAL: Depression - No Anxiety - No OTHER: Objective PHYSICAL EXAM: BP 152/80 (BP Site: Left Arm, BP Position: Sitting) Pulse 85 Resp 18 Ht 6' (1.829 m) Wt 220 lb (99.8 kg) SpO2 97% BMI 29.84 kg/m? Body surface area is 2.25 meters squared. STS RISK CALCULATOR: 0.8 STS Calculator On examination, he appears well and is breathing comfortably. Vitals signs are BP 152/80 (BP Site: Left Arm, BP Position: Sitting) Pulse 85 Resp 18 Ht 6' (1.829 m) Wt 220 lb (99.8 kg) SpO2 97% BMI 29.84 kg/m? . There is no JVD. No cervical or supraclavicular adenopathy is palpated. The chest is symmetrical without deformity. Breath sounds are clear bilaterally. The cardiac rhythm is regular. There are no rubs, gallops, or murmurs. The carotid, subclavian, and radial pulses are 2+ and equal bilaterally. The abdomen is soft and non-tender. There are no abdominal masses. There is no hepatojugular reflux. There is no pretibial edema. There is no clubbing or cyanosis. Lines, Drains, and Airways None Assessment/Plan Yari Lopez is 64 year old man with anginal symptoms, inducible ischemia, who is found to have severe MV CAD with normal LV function. I gree with the recommendation for MV CABG. The risks, benefits, and anticipated outcomes of the procedure; the risks and benefits of the alternatives to the procedure; and the roles and tasks of the personnel to be involved were discussed with the patient and he consents to the procedure and agrees to proceed. In preparation for surgery PFT's with room air ABG, 2D echocardiogram and CT scan of the chest will be obtained. Surgery is scheduled for the near future.. These findings will be communicated back to the requesting provider electronically. SIGNATURE: Miah Hinson MD PATIENT NAME: Yari Lopez DATE: January 21, 2020 TIME: 5:21 PM PAGER/CONTACT #: [phone] [facility] PROGRESSon 01-21-2020 PROGRESS HNO ID: [id number] Author: Janneth Matt CNP Service: ? Author Type: Nurse Practitioner Type: Progress Notes Filed: 01/21/2020 5:35 PM Note Text: RISK SCORES Procedure: Isolated CAB Risk of Mortality: 0.382% Renal Failure: 0.556% Permanent Stroke: 0.543% Prolonged Ventilation: 2.633% DSW Infection: 0.168% Reoperation: 1.506% Morbidity or Mortality: 4.378% Short Length of Stay: 70.474% Long Length of Stay: 1.340% Normal [facility] Tanika 01-07-2020 REINA Telephone (AKPRAD) YARI OLPEZ ([id number]) 1955 M Date Time Provider Department 01/07/20 UVALDO TAPIA) JOSE During your visit today, we recorded the following information about you: Uvaldo Tapia APRN.ELEUTERIO CASTILLO 01/07/2020 3:58 PM Signed Call made to patient after discussion with Dr. Hinson regarding a new appointment time for the outpatient CABG consultation: 01/11 @ 3 pm. Contact left for call back confirmation. Office will be notified regarding this. Thanks. Uvaldo Tapia APRN.CNP Allergies As of Date: 01/07/2020 Noted Allergy Reaction PENICILLINS 12/26/2010 7 - Swelling Date Reviewed: 10/16/2018 Reviewed by: Nancy Rodriguez MA - Fully Assessed Reason for Visit: Future Appointment [[id number]] Prescriptions as of 01/07/2020 Sig: NAPROXEN ORAL Take 220 mg by mouth. Takes 2 IBUPROFEN 200 MG CAPSULE Take by mouth. Takes 2 PRAVASTATIN 80 MG TABLET Take 1 tablet by mouth once d* LOSARTAN 50 MG TABLET Take 1 tablet by mouth once d* NITROGLYCERIN 0.4 MG SUBLINGU* Dissolve 1 tablet under the t* TADALAFIL 10 MG TABLET Take 1 tablet by mouth as nee* ACETAMINOPHEN 325 MG TABLET Take 2 tablets by mouth every* ASPIRIN 325 MG TABLET Take 1 tablet by mouth once d* Problem List As Of Date 01/07/2020 Noted Resolved Coronary arteriosclerosis in [place] artery [I25*12/14/2013 Chest discomfort [R07.89] 12/14/2013 Heart murmur, systolic [R01.1] 12/14/2013 SOB (shortness of breath) on exertion [R06.02] 12/14/2013 Fatigue [R53.83] 12/14/2013 Dyslipidemia [E78.5] 07/25/2016 Tobacco abuse [Z72.0] 07/25/2016 Essential hypertension [I10] 01/17/2017 Encounter Status:Closed by UVALDO TAPIA CNP on 01/07/20 [facility] Tanika 01-05-2020 REINA Telephone (AKPRAD) YARI LOPEZ ([id number]) 1955 M Date Time Provider Department 01/05/20 UVALDO TAPIA) JOSE During your visit today, we recorded the following information about you: Uvaldo Tapia APRN.CNP, CNP 01/05/2020 1:38 PM Addendum Call made to patient and offered him the next available OV with Dr. Hinson on 01/19 @3:[address] He /Gibson' office was contacted regarding this plan and also requested the documents to be fax to office with review. Uvaldo Tapia APRN.CNP Allergies As of Date: 01/05/2020 Noted Allergy Reaction PENICILLINS 12/26/2010 7 - Swelling Date Reviewed: 10/16/2018 Reviewed by: Nancy Rodriguez MA - Fully Assessed Reason for Visit: Appointment Confirmation [[id number]] Prescriptions as of 01/05/2020 Sig: NAPROXEN ORAL Take 220 mg by mouth. Takes 2 IBUPROFEN 200 MG CAPSULE Take by mouth. Takes 2 PRAVASTATIN 80 MG TABLET Take 1 tablet by mouth once d* LOSARTAN 50 MG TABLET Take 1 tablet by mouth once d* NITROGLYCERIN 0.4 MG SUBLINGU* Dissolve 1 tablet under the t* TADALAFIL 10 MG TABLET Take 1 tablet by mouth as nee* ACETAMINOPHEN 325 MG TABLET Take 2 tablets by mouth every* ASPIRIN 325 MG TABLET Take 1 tablet by mouth once d* Problem List As Of Date 01/05/2020 Noted Resolved Coronary arteriosclerosis in [place] artery [I25*12/14/2013 Chest discomfort [R07.89] 12/14/2013 Heart murmur, systolic [R01.1] 12/14/2013 SOB (shortness of breath) on exertion [R06.02] 12/14/2013 Fatigue [R53.83] 12/14/2013 Dyslipidemia [E78.5] 07/25/2016 Tobacco abuse [Z72.0] 07/25/2016 Essential hypertension [I10] 01/17/2017 Encounter Status:Closed by UVALDO TAPIA CNP on 01/05/20 [facility] Clinical Summary: HMSPatient IDon 11-27-2018 KOP Invalid Interpretation Code [facility] Work Phone: Clinical Summary: Scanned Hi story Summaryon 11-27-2018 adl form etoh alcohol performance BeerWine Invalid Interpretation Code [facility] Work Phone: brother(s) of patient alive or Unknown Invalid Interpretation Code [facility] Work Phone: consumes three or more drinks of alcohol (beer, wine, liquor) daily or almost daily 2 drinks per day Invalid Interpretation Code [facility] Work Phone: data entered by patient, alcohol (ethanol or ETOH) use Yes Invalid Interpretation Code [facility] Work Phone: Data entered by patient, allergy list Penicillin Invalid Interpretation Code [facility] Work Phone: data entered by patient, cigarette smoking 1 pack per day Invalid Interpretation Code [facility] Work Phone: data entered by patient, drug (of abuse) use No Invalid Interpretation Code [facility] Work Phone: data entered by patient, Employer Name Employed Invalid Interpretation Code [facility] Work Phone: data entered by patient, exercise history No Invalid Interpretation Code [facility] Work Phone: data entered by patient, father's medical history Heart disease Invalid Interpretation Code [facility] Work Phone: Data entered by patient, history of past surgeries Foot surgeryHernia repair Invalid Interpretation Code [facility] Work Phone: data entered by patient, mother's medical history Heart diseaseCOPD Invalid Interpretation Code [facility] Work Phone: data entered by patient, past medical history AsthmaDepressionHigh blood pressureArthritis Invalid Interpretation Code [facility] Work Phone: data entered by patient, social history, current smoker current everyday smoker Invalid Interpretation Code [facility] Work Phone: data entered by patient, social history, marital status Invalid Interpretation Code [facility] Work Phone: father of patient is alive or Invalid Interpretation Code [facility] Work Phone: Housing Type: apartment, house, mcfp, trailer, none House Invalid Interpretation Code [facility] Work Phone: housing unit size (asthma environmental history, housing) (from single family to don't know) 2 Floors Invalid Interpretation Code [facility] Work Phone: mother of patient is alive or Invalid Interpretation Code [facility] Work Phone: Number of dependent children No Invalid Interpretation Code [facility] Work Phone: sister of patient(s) alive or Unknown Invalid Interpretation Code [facility] Work Phone: Clinical Summary: Scanned RO S Summaryon 11-27-2018 endocrine ROS Denies Invalid Interpretation Code [facility] Work Phone: genitourinary review of systems, E&M Denies Invalid Interpretation Code [facility] Work Phone: Lymphocytes Auto #/vol (Bld) Denies Invalid Interpretation Code [facility] Work Phone: ROS cardiovascular E&M Denies Invalid Interpretation Code [facility] Work Phone: ROS ENT E&M Denies Invalid Interpretation Code [facility] Work Phone: ROS gastrointestinal E&M Denies Invalid Interpretation Code [facility] Work Phone: ROS general E&M Denies Invalid Interpretation Code [facility] Work Phone: ROS Musculoskeletal comments Joint Pain Invalid Interpretation Code [facility] Work Phone: ROS musculoskeletal E&M Complains Invalid Interpretation Code [facility] Work Phone: ROS neurological E&M Denies Invalid Interpretation Code [facility] Work Phone: ROS psychiatric E&M Denies Invalid Interpretation Code [facility] Work Phone: ROS Pulmonary comment Cough Invalid Interpretation Code [facility] Work Phone: ROS pulmonary E&M Complains Invalid Interpretation Code [facility] Work Phone: ROS skin E&M Denies Invalid Interpretation Code [facility] Work Phone: Office Visit: New - 1st visi t with practice, Rm: 2on 11-27-2018 NEGATED: Highlighted rowMRI (magnetic resonance imaging) history of the right knee on 03/19/2018 at [facility], of the right knee on 03/15/2014 at [facility] Invalid Interpretation Code [facility] Work Phone: NEGATED: Highlighted rowProtein mass conc Yes Invalid Interpretation Code [facility] Work Phone: NEGATED: Highlighted rowProtein mass conc Done Invalid Interpretation Code [facility] Work Phone: NEGATED: Highlighted rowTobacco smoking status NHIS current everyday smoker Invalid Interpretation Code [facility] Work Phone: NEGATED: Highlighted rowxray history of the right knee on 10/[address] West's Office--[facility] Invalid Interpretation Code [facility] Work Phone: Vital Signs Date Time Vital Sign Value Performing Clinician Facility 08-30-2022 10:21-0400 Body height 180.3 cm Genna Eng APRN.CHICKEN TENDER Work Phone: [facility] 08-30-2022 10:21-0400 Body temperature 98.29 [degF] Genna Eng APRN.CHICKEN TENDER Work Phone: [facility] 08-30-2022 10:21-0400 Body weight 100.25 kg Genna Eng APRN.CHICKEN TENDER Work Phone: [facility] 08-30-2022 10:21-0400 Diastolic blood pressure 59 mm[Hg] Genna Eng APRN.CHICKEN TENDER Work Phone: [facility] 08-30-2022 10:21-0400 Heart rate 84 /min Genna Eng APRN.CHICKEN TENDER Work Phone: [facility] 08-30-2022 10:21-0400 Respiratory rate 12 /min Genna Eng APRN.CHICKEN TENDER Work Phone: [facility] 08-30-2022 10:21-0400 SaO2% (BldA) [Mass fraction] 96 % Genna Eng APRN.CHICKEN TENDER Work Phone: [facility] 08-30-2022 10:21-0400 Systolic blood pressure 107 mm[Hg] Genna Eng APRN.CHICKEN TENDER Work Phone: [facility] 03-09-2020 10:20-0400 Body temperature 36.0 Deg [facility] Comment on above: Performed By: #### M [facility] #### [facility] [address], [place] [address] 03-08-2020 17:45-0400 Body temperature 35.9 Deg [facility] Comment on above: Performed By: #### T &S #### [facility] [address] [place] [id number] 03-08-2020 17:19-0400 Body temperature 36.1 Deg [facility] Comment on above: Performed By: #### A BG #### [facility] [address] [place] [id number] NEGATED: Highlighted [id number] 10:42-0500 BMI (Body Mass Index) 31.66 kg/m2 Carmel VanScoit AT [facility] Work Phone: NEGATED: Highlighted [id number] 10:42-0500 BP Diastolic 89 mm[Hg] Carmel VanScoit AT [facility] Work Phone: NEGATED: Highlighted [id number] 10:42-0500 BP Diastolic 82 mm[Hg] Carmel VanScoit AT [facility] Work Phone: NEGATED: Highlighted [id number] 10:42-0500 BP Systolic 150 mm[Hg] Carmel VanScoit AT [facility] Work Phone: NEGATED: Highlighted [id number] 10:42-0500 BP Systolic 126 mm[Hg] Carmel VanScoit AT [facility] Work Phone: NEGATED: Highlighted [id number] 10:42-0500 Height 179.07 cm Carmel VanScoit AT [facility] Work Phone: NEGATED: Highlighted [id number] 10:42-0500 Height 179 cm Carmel VanScoit AT [facility] Work Phone: NEGATED: Highlighted [id number] 10:42-0500 Weight 101.15 kg Carmelofelia CampScoit AT [facility] Work Phone: NEGATED: Highlighted [id number] 10:42-0500 Weight 101 kg Carmel Mcdonnell AT [facility] Work Phone: Encounters Encounter Date Encounter Type Care Provider Facility Start: 10-29-2023 End: 10-29-2023 ambulatory GIANFRANCO WEST Facility:[facility] Start: 10-29-2023 Encounter for other preprocedural examination GIANFRANCO WE[facility] Start: 09-20-2023 Patient encounter status Alesha Isaac MD Work Phone: [facility] Start: 09-20-2023 Telephone encounter Alesha graf MD Work Phone: Cardiothoracic Comment on above: Follow Up Start: 10-29-2022 End: 10-29-2022 Subsequent hospital visit by physician Ct 2 Main Qb (I-Stat) Radiology Comment on above: Dissection of thorac ic aorta [I71.019] Start: 08-30-2022 End: 08-30-2022 Patient encounter procedure Genna Eng KARMEN.CHICKEN TENDER Work Phone: Cardiothoracic Comment on above: Coronary artery dise ase involving [place] coronary artery of [place] heart without angina pectoris (Primary Dx); S/P CABG x 4; 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al angiopathy without gangrene, without long-term current use of insulin (HCC); Essential hypertension; Postoperative pain Start: 08-30-2022 End: 08-30-2022 Subsequent hospital visit by physician Xr Chest Main J1 Work Phone: Radiology Comment on above: Surgery follow-up [Z 09] Start: 08-27-2022 Telephone encounter Alesha graf MD Work Phone: Cardiology Comment on above: Post Dc Program Call - Fy Start: 08-24-2022 Telephone encounter Lisa Iyer RN NOC Comment on above: Follow Up Phone Call (RC Follow Up Call) Start: 08-21-2022 Orders Only Miguel celis MD Work Phone: Cardiology Comment on above: Dissection of aorta, unspecified portion of aorta (HCC) (Primary Dx); Essential hypertension Start: 08-16-2022 ambulatory Adrianna POWER RN.CHICKEN TENDER Work Phone: Critical Care Start: 11-27-2018 End: 11-28-2018 Patient encounter procedure Brandon Clifford MD Work Phone: [facility] Work Phone: Procedures Date Procedure Procedure Detail Performing Clinician Start: 10-29-2022 Ct angiography chest w/contrast/noncontrast Colton Walter APRN.CHICKEN TENDER Work Phone: Start: 03-10-2020 History of coronary artery bypass grafting S/P CABG x 4 Adrianna Parra APRN.CHICKEN TENDER Work Phone: Start: 02-16-2020 Antibody screen Comment on above: Performed By: #### T &S #### [place] [id number] Start: 11-27-2018 End: 11-28-2018 BMI documented as above normal parameters - follow-up documented Brandon Clifford MD Work Phone: Start: 11-27-2018 End: 11-28-2018 Documentation of current medications Brandon Clifford MD Work Phone: Start: 11-27-2018 End: 11-28-2018 Osteoarthritis assess Brandon Clifford MD Work Phone: Start: 11-27-2018 End: 11-28-2018 Pain assessment documented as positive - follow-up documented Brandon Clifford MD Work Phone: Start: 11-27-2018 End: 11-28-2018 Pt tobacco screen [id number] Brandon dangelo MD Work Phone: Start: 11-27-2018 End: 11-27-2018 Radiologic examination knee 1/2 views Brandon Clifford MD Work Phone: Start: 11-27-2018 End: 11-27-2018 Radiologic examination knee 3 views Brandon Clifford MD Work Phone: History of coronary artery bypass grafting S/P CABG x 4 Genna Eng APRN.CHICKEN TENDER Work Phone: Plan of Treatment Date Care Activity Detail Author Start: 08-16-2027 LIPID SCREEN LIPID SCREEN [facility] Start: 08-17-2025 DIABETES SCREEN DIABETES SCREEN [facility] Start: 09-20-2023 End: 12-20-2023 CREATININE BLD CREATININE BLD Lab Routine Dissection of ascending aorta (HCC) Encounter for other preprocedural examination Expected: 09/20/2023, Expires: 12/20/2023 [facility] Work Phone: Comment on above: Expected: 09/20/2023 , Expires: 12/20/2023 Start: 08-30-2023 BP CONTROLLED (<130/80) BP CON TROLLED (<130/80) [facility] Start: 08-16-2023 Hepatitis B surface antibody level LDL CHOLESTEROL [facility] Start: 07-19-2023 Covid-19 Vaccine () Covid-19 Vaccine () [facility] Start: 07-19-2023 Influenza vaccination Influenza Vacc ine (#1) [facility] Start: 02-13-2023 Hemoglobin A1c/Hemoglobin.total in Blood HBA1C [facility] Start: 11-18-2022 Advance Directive Discussion Advance Directive Discussion [facility] Start: 11-18-2022 Depression Assessment Depression Ass essment [facility] Start: 07-19-2022 Influenza vaccination INFLUENZA (#1) [facility] Start: 05-18-2022 COVID-19 VACCINE (4 - Booster for Dillan series) COVID-19 VACCINE (4 - Booster for Dillan series) [facility] Start: 11-18-2021 ADVANCE DIRECTIVE DISCUSSION ADVANCE DIRECTIVE DISCUSSION [facility] Start: 11-18-2021 DEPRESSION ASSESSMENT DEPRESSION ASS ESSMENT [facility] Start: 2021 PNEUMOCOCCAL: 65+ (1 - PCV) PNEUMOCOCCAL: 65+ (1 - PCV) [facility] Start: 09-11-2018 Pneumococcal Vaccine : 65+ (2 - PCV) Pneumococcal Vaccine: 65+ (2 - PCV) [facility] Start: 2016 Hepatitis B Vaccine (1 of 3 - Risk 3-dose series) Hepatitis B Vaccine (1 of 3 - Risk 3-dose series) [facility] Start: 2016 RSV Vaccine (1 - 1-d ose 60+ series) RSV Vaccine (1 - 1-dose 60+ series) [facility] Start: 2011 PROSTATE CANCER SCRE ENING DISCUSSION PROSTATE CANCER SCREENING DISCUSSION [facility] Start: 2006 SHINGRIX VACCINE (1 of 2) FAITH GRIX VACCINE (1 of 2) [facility] Start: 2001 COLOGUARD (FIT-DNA) COLOGUARD (FIT-D NA) [facility] Start: 2001 Colonoscopy COLONOSCOPY [facility] Start: 2001 COLORECTAL CANCER SCREENING COLORECTAL CANCER SCREENING [facility] Start: [address] [facility] Start: 2001 FECAL OCCULT BLOOD FECAL OCCULT BLOO D [facility] Start: 2001 SIGMOIDOSCOPY SIGMOIDOSCOPY [facility] Start: 1975 Urine microalbumin profile [facility] Start: 1974 ANNUAL PCP TEAM JR. JAVA DEVELOPER CHINEDU DISEASE VISIT ANNUAL PCP TEAM CHRONIC DISEASE VISIT [facility] Start: 1974 BP CONTROLLED (<130/80) BP CON TROLLED (<130/80) [facility] Start: 1974 HEPATITIS C SCREENING HEPATITIS C SC REENING [facility] Start: 1966 3 comp foot exam completed DIABETIC FOOT EXAM [facility] Start: 1966 Hepatitis B screening URINE ALBUMIN:CREATININE RATIO [facility] Start: 1966 Hepatitis C antibody , confirmatory test DILATED RETINAL EXAM [facility] Start: 1962 PNEUMOCOCCAL: 65+ (1 - PCV) PNEUMOCOCCAL: 65+ (1 - PCV) [facility] Start: 1956 ABDOMINAL AORTIC ANE URYSM SCREENING ABDOMINAL AORTIC ANEURYSM SCREENING [facility] End: 10-19-2024 CTA CHEST/ABD/PEL (GATED) W IVCON CTA CHEST/ABD/PEL (GATED) W IVCON Radiology Routine Dissection of ascending aorta (HCC) Encounter for other preprocedural examination 1 Occurrences starting 09/20/2023 until 10/19/2024 [facility] Work Phone: Comment on above: 1 Occurrences starti ng 09/20/2023 until 10/19/2024 End: 08-21-2023 ECG COMPLETE ECG COMPLETE ECG Routine Dissection of aorta, unspecified portion of aorta (HCC) Essential hypertension 1 Occurrences starting 08/21/2022 until 08/21/2023 [facility] Work Phone: Comment on above: 1 Occurrences starti ng 08/21/2022 until 08/21/2023 End: 08-21-2023 Echocardiography ECHO Cardiology Routine Dissection of aorta, unspecified portion of aorta (HCC) Essential hypertension 1 Occurrences starting 08/21/2022 until 08/21/2023 [facility] Work Phone: Comment on above: 1 Occurrences starti ng 08/21/2022 until 08/21/2023 Patient Education \cps-sql1\CPS_ PtEducat ion\quitting_smoking_0 [id number].pdf, \cps-sql1\CPS_PtEducat ion\CDC_FALL_PREVENTIO N.pdf, \cps-sql1\CPS_PtEducat ion\htn.pdf [facility] Work Phone: End: 08-30-2022 Radiologic exam chest 2 views [facility] Work Phone: Comment on above: 1 Occurrences starti ng 08/30/2022 until 08/30/[address] [facility] & VAS [facility] Immunizations Immunization Date Immunization Notes Care Provider Radha vieira 09-27-2022 influenza virus vaccine, unspecified formulation Alesha Isaac MD Work Phone: [facility] No information available. Carmel Mcdonnell AT [facility] Work Phone: Payers Date Payer Category Payer Medicare HUMANA MEDICARE HUMANA GOLD PLUS [id number] 2023-Present [phone] [address] [address] [place] [address] HMO [id number] 2023 Private Health Insurance [id number] 2016 Unknown [id number] Social History Date Type Detail Facility Start: 01-21-2020 End: 08-30-2022 Tobacco smoking status NHIS Ex-smoker [facility] Start: 01-16-1965 End: 01-16-2020 History of tobacco use Current smoker [facility] Start: 01-16-1965 End: 01-16-2020 History of tobacco use Cigarette Smoker [facility] Start: 01-21-2020 End: 12-14-2022 Cigarettes smoked current (pack per day) - Reported 1.5 [facility] Work Phone: Start: 01-21-2020 End: 08-30-2022 Tobacco use and exposure User of smokeless tobacco [facility] History of tobacco use Snuff User [facility] Start: 04-13-2020 End: 08-30-2022 Alcohol intake Current drinker of alcohol (finding) [facility] Start: 03-07-2020 History SDOH Alcohol Comment 1-2 daily [facility] Start: 03-09-2020 History SDOH Financial 5 [facility] Start: 03-09-2020 History SDOH Food Worry 1 [facility] Start: 03-09-2020 Education 12 [facility] Start: 1955 Sex Assigned At Not on file C [facility] Start: 08-06-2022 End: 08-30-2022 Exposure to SARS-CoV-2 (event) Not sure [facility] Start: 08-30-2022 End: 12-14-2022 Tobacco use panel [facility] Work Phone: How hard is it for you to pay for the very basics like food, housing, medical care, and heating Not hard at all [facility] Work Phone: (I/We) worried whether (my/our) food would run out before (I/we) got money to buy more. Never true [facility] Work Phone: NEGATED: Highlighted rowStart: 11-27-2018 End: 11-27-2018 Alcohol use Former smoker [facility] Work Phone: NEGATED: Highlighted rowStart: 11-27-2018 End: 11-27-2018 Assertion Current every day smoker [facility] Work Phone: NEGATED: Highlighted rowStart: 11-27-2018 End: 11-27-2018 Details of drug misuse behavior DRUG USE No [facility] Work Phone: NEGATED: Highlighted rowStart: 11-27-2018 End: 11-27-2018 Tobacco use and exposure SMOK ADVICE Yes [facility] Work Phone: Medical Equipment Procedure Code Equipment Code Equipment Origin al Text Equipment Identifier Dates Plate Sternalock Vivek Bone 8 Hole Sternum - [id number] Start: 03-08-2020 Screw Sternalock Vivek 2.4mm Gold 12mm Bone Self Drill Lock Primary Closure - [id number] Start: 03-08-2020 Check BS [address] art: 03-14-2020 End: 08-16-2022 Comment on above: Check BS 3 times a d ay Graft Hemashield [place] 30mm 10mm 1 Branch 2 Velour Collagen Polyester 50 - [id number] Start: 08-17-2022 [place] Thk1.65mm P tfe 4x.5in Cardiovascular Sterile - [id number] Start: 08-17-2022 Clinical Notes 12-14-2013 to 11-21-2023 Addendum Note - Wes Lei RN - 09/20/2023 10:49 AM EDTTelephone Encounter - Wes Lei RN - 09/20/2023 10:33 AM EDTDafavio Verduzco RN - 10/29/2022 8:30 AM EST Note Date & Type Note Facility 11-21-2023 Note Patient Outreach (PU LMMN) YARI LOPEZ ([id number]) 1955 M Date Time Provider Department 11/21/23 JANA EASON During your visit today, we recorded the following information about you: EasonJana 11/21/2023 7:37 AM Signed Incidental Lung Nodule Enrollment Outreach attempt: 3rd Attempt Outreach status: Complete Enrolled in Lung Nodule program: No Declined reason: Other Lung Nodule Program Location: [facility] Two letter attempts Discharge letter sent Allergies [...] Date 11/21/2023 Noted Resolved Coronary arteriosclerosis in [place] artery [I25*12/14/2013 Chest discomfort [R07.89] 12/14/2013 08/16/2022 [...] of trans*08/20/2022 Letter Text Encounter Status:Closed by AJNA EASON on 11/21/23 [facility] 11-21-2023 Note HNO ID: [id number] Author: ?, ?, ? Service: ? Author Type: ? Type: Progress Notes Filed: 11/21/2023 07:37 Note Text: Incidental Lung Nodule Enrollment Outreach attempt: 3rd Attempt Outreach status: Complete Enrolled in Lung Nodule program: No Declined reason: Other Lung Nodule Program Location: [facility] Two letter attempts Discharge letter sent [facility] 11-14-2023 Note Patient Outreach (PU LMMN) YARI LOPEZ ([id number]) 1955 Date Time Provider Department 11/14/23 JANA EASON During your visit today, we recorded the following information about you: Jana Eason 11/14/2023 7:43 AM Signed Incidental Lung Nodule Enrollment Outreach attempt: 2nd Attempt Outreach status: Complete Enrolled in Lung Nodule program: Referred Lung Nodule outreach: Needs outreach Lung Nodule Program Location: [facility] Two letter attempts Allergies As of Date: [...] Date 11/14/2023 Noted Resolved Coronary arteriosclerosis in [place] artery [I25*12/14/2013 Chest discomfort [R07.89] 12/14/2013 08/16/2022 [...] Encounter Status:Closed by JANA EASON on 11/14/23 [facility] 11-14-2023 Note HNO ID: [id number] Author: Jana Eason Service: ? Author Type: ? Type: Progress Notes Filed: 11/14/2023 7:43 AM Note Text: Incidental Lung Nodule Enrollment Outreach attempt: 2nd Attempt Outreach status: Complete Enrolled in Lung Nodule program: Referred Lung Nodule outreach: Needs outreach Lung Nodule Program Location: [facility] Two letter attempts [facility] 11-07-2023 Note Patient Outreach (PU FAMO) NANCYYARI GERBER ([id number]) 1955 M Date Time Provider Department 11/07/23 SYMONE SANCHEZTX During your visit today, we recorded the following information about you: Symone Sanchez, GOLF CART ATTENDANT.[facility] 11/07/2023 9:37 AM Signed Incidental Lung Nodule Enrollment Outreach attempt: 1st Attempt Outreach status: Complete Enrolled in Lung Nodule program: Referred Lung Nodule outreach: Needs outreach Lung Nodule Program Location: [facility] Letter sent Allergies As of Date: 11/07/2023 [...] Date 11/07/2023 Noted Resolved Coronary arteriosclerosis in [place] artery [I25*12/14/2013 Chest discomfort [R07.89] 12/14/2013 08/16/2022 [...] Letter Text Letter Text Encounter Status:Closed by SYMONE SANCHEZ on 11/07/23 [facility] 11-07-2023 Note HNO ID: [id number] Author: Symone Sanchez APRN.CHICKEN TENDER Service: ? Author Type: Nurse Practitioner Type: Progress Notes Filed: 11/07/2023 9:37 AM Note Text: Incidental Lung Nodule Enrollment Outreach attempt: 1st Attempt Outreach status: Complete Enrolled in Lung Nodule program: Referred Lung Nodule outreach: Needs outreach Lung Nodule Program Location: [facility] 10-29-2023 Note HNO ID: [id number] Author: Lynne Griffith APRN.COMMUNICATIONS PROJECT MANAGER Service: ? Author Type: Clinical Nurse Specialist Type: Progress Notes Filed: 11/08/2023 10:10 AM Note Text: FOLLOW-UP Aortic Aneurysm, Aortic Dissection, and Aortic Repair Patient Type: Established REFERRED BY: Alesha Isaac M.D. PCP: Gian[address] [place] [address] Other Physician: No referring provider defined for this encounter. Patient Mr. Lopez returns, now 12 months following the open repair of his arch and ascending Aortic Dissection. The patient is asymptomatic. 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 Rest of the [place] thoracoabdominal aorta is normal in calibre with no acute aortic pathology. 3. A 20 mm focal cluster of pulmonary nodular opacities is seen in the right upper lobe. Incidental Finding: Follow-up Acuity: Incidental Finding: Part solid: 6 mm or greater Routing Code: RI_1 Recommendation: Consult to Lung Nodule Clinic - [id number] Time Frame: at the discretion of the [...] be communicated with the ordering provider via [employer] staff message by Imaging Support Services within 2 business days of report finalization. Hand Roller: SILVESTRE Transcribe Date/Time: Oct 29 2023 10:26A Dictated [...] - CTA Chest (Gated) with contrast. Lynne Griffith APRN.[facility] 10-29-2023 Note HNO ID: [id number] Author: Liliana Huertas RN Service: ? Author [...] DATE: October 29, 2023 TIME: 8:13 AM [facility] 10-29-2023 Note HNO ID: [id number] Author: Angelita Tinajero RT(Brown) Service: Radiology Author Type: Technologist Type: Progress [...] RT Anthony(R) October 29, 2023 8:38 AM [facility] 09-20-2023 Miscellaneous Notes Addended by: WES LEI [...] Wes Lei RN documented in this encounter [facility] 10-29-2022 History of Presen t illness Narrative [...] 2022 9:08 AM documented in this encounter [facility] 08-30-2022 History of Presen t illness Narrative Images from the original note were not included. [facility] [place] Nicholas Mas Department of Cardiovascular Medicine DEPARTMENT [...] ARTERIAL GRAFT(S) 03/08/2020 CARDIAC CATH 12/31/2019 @ [facility] by Dr. He CHEST TUBE - [...] stable Sternotomy site: healing Wound: NA SV [place] sites: healing Procedures: Sutures removed from chest [...] bilateral pleural effusions Coronary artery disease involving [place] coronary artery of [place] heart without angina pectoris (primary encounter diagnosis): [...] pleural effusion SBE prophylaxis reviewed Genna Eng APRN.CHICKEN TENDER documented in this encounter [facility] 08-30-2022 History of Presen t illness Narrative [...] 2022 9:54 AM documented in this encounter [facility] 08-27-2022 Miscellaneous Notes [facility] Contact Center Inbound Phone Encounter DATE of SERVICE: 08/27/2022 TIME of SERVICE: 9:16 AM Status: [facility] Service/Provider: Cardiac Surgery Alesha Isaac M.D. Reason for call: Follow-up Appointment Contact information: [phone] Resolution: Reinforced education Comments: Patient calling the [facility] resource center to schedule/reschedule CTS appointment for 08/28. He needs to make his 3 month follow up apt with Dr. Isaac. He was reminded to follow up with his PCP 7-10 days post surgery and his Nov cardiology apt with Dr. Sullivan. Given number to CTS scheduling [phone] and directly connected. Liana Avila RN Date of Resolution: 08/27/2022 Time of Resolution 9:16 AM documented in this encounter [facility] 08-24-2022 Miscellaneous Notes 1. Have you noticed [...] (Standard Question) Yes documented in this encounter [facility] 08-20-2022 History of Past i llness Narrative Problem Noted Date Resolved Date Pulmonary edema, [...] discomfort 12/14/2013 08/16/2022 Heart murmur, systolic 12/14/2013 SOB (shortness of breath) on exertion 12/14/2013 08/16/2022 Fatigue 12/14/2013 08/16/2022 documented as of this encounter (statuses as of 08/21/2022) [facility] History of Past illness Narrative* Problem Noted [...] of this encounter (statuses as of 08/24/2022) [facility] History of Past illness Narrative* Problem Noted [...] of this encounter (statuses as of 08/27/2022) [facility] History of Past illness Narrative* Problem Noted [...] of this encounter (statuses as of 08/30/2022) [facility] History of Past illness Narrative* Problem Noted [...] of this encounter (statuses as of 08/31/2022) [facility] History of Past illness Narrative* Problem Noted [...] discomfort 12/14/2013 08/16/2022 Heart murmur, systolic 12/14/2013 SOB (shortness of breath) on exertion 12/14/2013 08/16/2022 Fatigue 12/14/2013 08/16/2022 documented as of this encounter (statuses as of 10/30/2022) [facility] History of Past illness Narrative* Problem Noted [...] of this encounter (statuses as of 09/20/2023) [facility] Procedure note* Adrianna Parra APRN.CHICKEN TENDER - 08/16/2022 5:38 PM EDT Images from [...] DATE: 08/16/22 TIME: 10:20 [facility] History of Present illness Narrative* Adrianna Parra APRN.CNP - 08/16/2022 2:01 PM EDT Images from the original note were not included. Critical Care Transport Note Patient Name: Yari Lopez Service Date: 08/16/2022 Referring Facility: [facility] Accepting Facility[facility] SUBJECTIVE/CHIEF COMPLAINT: I feel fine REASON FOR TRANSPORT: Higher level of cardiovascular care History of Present Illness: The following history is what was known to CCT team at time of given care and summarized through: referring nursing report Yari Lopez is a 67 year old male with a past medical history significant for CAD s/p CABG anddiabetes who presented to [facility] on 08/16/2022 for evaluation and a [...] physician managing the [facility] at the referring facility. Patient condition attime of exam was: Acutely ill and critically ill. Due to the unique circumstances of the patient, it was determined that this was the closest, most appropriate facility by referring physician. The physician managing the patient requested the [facility] Critical Care Transport Team transport and treat the patient for the purpose of tertiary care, evaluation, and management of his cardiac condition(s). Air medical transport was requested to reduce the hth-bt-jmpjptsb time, 25 minutesby air vs. approximately 1 [...] or any other complaints when questioned. See [place] above. PAST MEDICAL HISTORY: PAST MEDICAL HISTORY Diagnosis Date Coronary artery disease without angina pectoris Hernia 1971 Hypercholesteremia Hypertension IBS (irritable bowel syndrome) Osteoarthritis of right knee PAST SURGICAL HISTORY: PAST SURGICAL HISTORY Procedure Laterality Date CABG (4) VEIN GRAFTS & ARTERIAL GRAFT(S) 03/08/2020 CARDIAC CATH 12/31/2019 @ [facility] by Dr. He CHEST TUBE - [...] s/p CABG and diabetes who presented to [facility] on 08/16/2022 for evaluation and a CT scan Type A Aortic Dissection: - CT read noted above - Denies chest pain, back pain or shortness of breath - Goal HR 60's - Metoprolol administered - Goal SBP 100-120 - Nitroprusside started and titrated - Monitor hemodynamics - Expedite transfer to [facility] The transport was completed without significant incident or change in the patient's status. The patient was transported to the [facility] by [employer] (Helicopter) for tertiary and/or quaternary evaluation and management of his Emergent Surgical condition(s). Upon arrival to the receiving facility, a waxm-eq-btbt report was given to bedside nursing staff [facility] and MUNICIPAL BOND TRADER Patient care was transferred. The patient condition [...] Adrianna Parra APRN.CNP Acute Care Nurse Practitioner [facility] Critical Care Transport Team [facility] History of Past illness Narrative* Problem Noted Date Resolved Date Chest discomfort 12/14/2013 08/16/2022 Heart murmur, systolic 12/14/2013 2 SOB (shortness of breath) on exertion 12/14/2013 08/16/2022 Fatigue 12/14/2013 08/16/2022 documented as of this encounter (statuses as of 08/17/2022) [facility] note* Diagnosis Dissection of aorta, unspecified portion of aorta (HCC)- Primary Essential hypertension Unspecified essential hypertension documented in this encounter [facility] note* Diagnosis Coronary artery disease involving [place] coronary artery of [place] heart without angina pectoris- Primary S/P CABG x 4 Postsurgical aortocoronary bypass status 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al angiopathy without gangrene, without long-term current use of insulin (HCC) Essential hypertension Unspecified essential hypertension Postoperative pain Other acute postoperative pain documented in this encounter [facility] note* Diagnosis Surgery follow-up Follow-up examination, following unspecified surgery documented in this encounter [facility] note* Diagnosis Dissection of thoracic aorta Dissection of aorta, thoracic documented in this encounter [facility] note* Diagnosis Dissection of ascending aorta (HCC)- Primary Dissection of aorta, thoracic Encounter for other preprocedural examination documented in this encounter [facility] for referral (narrative)* Outpatient Procedure (Routine) - Pending Review Specialty Diagnoses / Procedures Referred By Arjun lowery Referred To Contact [facility] Diagnoses Dissection of aorta, unspecified portion of aorta (HCC) Essential hypertension Procedures ECHO ECHO TTHRC R-T 2D W/WOM-MODE COMPL SPEC&COLR D Miguel Sullivan MD [address] [address] [facility] [place] [address] [place] [address] Referral ID Status Reason Start Date Expiration Date Visits Requested Visits Authorized [id number] Pending Review Auto-Generat ed Referral 08/21/2022 08/21/2023 1 1 * Outpatient Procedure (Routine) - Pending Review Specialty Diagnoses / Procedures Referred By Arjun lowery Referred To Contact [facility] Diagnoses Dissection of aorta, unspecified portion of aorta (HCC) Essential hypertension Procedures ECG COMPLETE ECG ROUTINE ECG W/LEAST 12 LDS W/I&R Miguel Sullivan MD [address] [place] [address] [facility] [place] [address] [place] [address] Referral ID Status Reason Start Date Expiration Date Visits Requested Visits Authorized [id number] Pending Review Auto-Generat ed Referral 08/21/2022 08/21/2023 1 1 [facility] Chief Complaint Chief Complaint Description Start Date right knee pain Preliminary chief co mplaint data, not yet signed by the author as of Instructions Instruction Description Start Date CompletedPlease follow-up wi th Primary Care Physician or Drainage Inspector for treatment or adjustment of medication regarding [...] Summary Purpose Hospital Course Note HNO ID: [id number] Author: Marcelina enrique (Karmen Castillo) ELEUTERIO Tapia Service: Cardiovascular Surgery Author Type: Nurse Practitioner Type: Discharge Summary Filed: 03/14/2020 11:14 AM Note Text: Attestation signed by Miah Hinson at 03/14/2020 11:46 AM Attending Note I have personally performed a face to face assessment of the patient and have reviewed the PA/SPOKE MAKER note. My linder findings include: Assessment/Plan are as above Other additions or changes: None Signature: Miah Hinson MD Date: 03/14/2020 Time: 11:46 AM DISCHARGE [...] AM EDT 40 mcg/min 12 mL/hr IV Rate/Dose Change 08/16/2022 10:19 AM EDT 20 mcg/min 6 mL/h r IV New Bag/Syringe/Bottle 08/16/2022 10:16 AM EDT 10 mcg/min 3 mL/hr IV Health Concerns Infection Onset Date Last Indicated Resolved Time COVID-19 Rule-Out 08/16/2022 08/16/2022 08/16/2022 1:32 PM EDT Reason for Referral Specialty Diagnoses / Procedures Referred By Arjun lowery Referred To Contact Genna Eng APRN.CHICKEN TENDER [address] [place] [address] Referral ID Status Reason Start Date Expiration Date Visits Re quested Visits Authorized [id number] Closed 1 1 Specialty Diagnoses / Procedures Referred By Arjun lowery Referred To Contact CT IMAGING Diagnoses Dissection of thoracic aorta Procedures CTA CHEST (GATED) W IVCON CT ANGIOGRAPHY CHEST W/CONTRAST/NONCONTRAST Colton Walter APRN.CHICKEN TENDER [address] [place] [address] Ct Imaging Referral ID Status Reason Start Date Expiration Date V isits Requested Visits Authorized [id number] Closed Auto-Generate d Referral 10/17/2022 01/15/2023 1 1 Specialty Diagnoses / Procedures Referred By Contac t Referred To Contact CT IMAGING Diagnoses Dissection of ascending aorta (HCC) Encounter for other preprocedural examination Procedures CTA CHEST/ABD/PEL (GATED) W IVCON CT ANGIOGRAPHY CHEST W/CONTRAST/NONCONTRAST CT ANGIO ABD&PLVIS CNTRST MTRL W/WO CNTRST Alesha Walton MD [address] [place] [address] [place] [id number] Referral ID Status Reason Start Date Expiration Date Visits Requested Visits Authorized [id number] Authorized Auto-Generat ed Referral 09/20/2023 10/19/2024 1 1 Additional Source Comments Reason for Visit (unrecogniz ed section and content) Reason For Visit Description New - 1st visit with practice Preliminary reason f or visit data, not yet signed by the author as of right knee pain Reason Comments Critical Care Transport Reason Comments Follow Up Phone Call RC Follow Up Call Reason Comments Post Dc Program Call - Fyi Reason Comments Post Op Follow Up Reason Comments Radio Main J1 Reason Comments Radiology CT Specialty Diagnoses / Procedures Referred By Stasac t Referred To Contact CT IMAGING Diagnoses Dissection of thoracic aorta Procedures CTA CHEST (GATED) W IVCON CT ANGIOGRAPHY CHEST W/CONTRAST/NONCONTRAST Colton Walter, GOLF CART ATTENDANT.CHICKEN TENDER [address] [place] [address] Ct Imaging Referral ID Status Reason Start Date Expiration Date V isits Requested Visits Authorized [id number] Closed Auto-Generate d Referral 10/17/2022 01/15/2023 1 1 Reason Comments Follow Up (unrecognized sect ion and content) No Status Records FoundNo Status Records FoundNo Status Records FoundNo Status Records FoundNo Status Records Found INFORMATION SOURCE (unrecogn ized section and content) DATE CREATED AUTHOR 04/22/2020 [facility] DATE CREATED AUTHOR AUTHOR'S ORGANIZ ATION 04/22/2020 [facility] DATE CREATED AUTHOR AUTHOR'S ORGANIZ ATION 11/18/2020 [facility] DATE CREATED AUTHOR AUTHOR'S ORGANIZ ATION 11/08/2023 [facility] DATE CREATED AUTHOR AUTHOR'S ORGANIZ ATION 11/22/2023 [facility] Source Comments (unrecognize d section and content) In the event this informatio n is protected by the Federal Confidentiality of Alcohol and Drug Abuse Patient Records regulations: The Federal rules restrict any use of the information to criminally investigate or prosecute any alcohol or drug abuse patient.[facility] FoundationIn the event this information is protected by the Federal Confidentiality of Alcohol and Drug Abuse Patient Records regulations: The Federal rules restrict any use of the information to criminally investigate or prosecute any alcohol or drug abuse patient.[facility] FoundationIn the event this information is protected by the Federal Confidentiality of Alcohol and Drug Abuse Patient Records regulations: The Federal rules restrict any use of the information to criminally investigate or prosecute any alcohol or drug abuse patient.[facility] FoundationIn the event this information is protected by the Federal Confidentiality of Alcohol and Drug Abuse Patient Records regulations: The Federal rules restrict any use of the information to criminally investigate or prosecute any alcohol or drug abuse patient.[facility] FoundationIn the event this information is protected by the Federal Confidentiality of Alcohol and Drug Abuse Patient Records regulations: The Federal rules restrict any use of the information to criminally investigate or prosecute any alcohol or drug abuse patient.[facility] FoundationIn the event this information is protected by the Federal Confidentiality of Alcohol and Drug Abuse Patient Records regulations: The Federal rules restrict any use of the information to criminally investigate or prosecute any alcohol or drug abuse patient.[facility] FoundationIn the event this information is protected by the Federal Confidentiality of Alcohol and Drug Abuse Patient Records regulations: The Federal rules restrict any use of the information to criminally investigate or prosecute any alcohol or drug abuse patient.[facility] FoundationIn the event this information is protected by the Federal Confidentiality of Alcohol and Drug Abuse Patient Records regulations: The Federal rules restrict any use of the information to criminally investigate or prosecute any alcohol or drug abuse patient.[facility] Care Teams (unrecognized sec tion and content) Weigher Production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 Start Date End Date Gianfranco West MD [address] [facility] [address] [place], [place] [address] PCP - General Family Medicine 02/03/20 Gianfranco Wells [address] [facility] [address] [place] [address] Cardiology 01/06/20 Uvaldo Tapia, GOLF CART ATTENDANT.CHICKEN TENDER [address] [facility] [address] [facility] [place] [address] Referring Cardiac Surg 03/14/20 Miah Hinson MD [address] [place] [address] [place] [address] Home Care Provider Cardiothoracic Surgery 03/14/20 Tiara Cho RN [address] [place] [address] Zinc Plate Grainer Post Acute Care 03/14/20 Weigher Production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 Start Date End Date Gianfranco West MD [address] [facility] [address] [place], [place] [id number] PCP - General Family Medicine 02/03/20 Gianfranco Wells [address] [facility] [address] [place] [address] Cardiology 01/06/20 Uvaldo Tapia, GOLF CART ATTENDANT.CHICKEN TENDER 1 [facility] [address] [place] [address] Referring Cardiac Surg 03/14/20 Miah Hinson MD [address] [place] [address] [place] [address] Home Care Provider Cardiothoracic Surgery 03/14/20 Tiara Cho RN [address] [place] [address] Zinc Plate Grainer Post Acute Care 03/14/20 Weigher Production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 Start Date End Date Gianfranco West MD [address] [facility] [address] [place] [address] PCP - General Family Medicine 02/03/20 Gianfranco Wells [address] [facility] [address] [place] [address] Cardiology 01/06/20 Uvaldo Tapia, GOLF CART ATTENDANT.CHICKEN TENDER 1 [facility] [address] [place] [address] Referring Cardiac Surg 03/14/20 Miah Hinson MD [address] [place] [address] [place] [address] Home Care Provider Cardiothoracic Surgery 03/14/20 Tiara Cho RN [address] [place], [place] [id number] Zinc Plate Grainer Post Acute Care 03/14/20 Weigher Production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 Start Date End Date Gianfranco West MD [address] [facility] [address] [place] [address] PCP - General Family Medicine 02/03/20 Gianfranco Wells [address] [facility] [address] [place] [address] Cardiology 01/06/20 Uvaldo Tapia, GOLF CART ATTENDANT.CHICKEN TENDER [address] [facility] [address] [place] [address] Referring Cardiac Surg 03/14/20 Miah Hinson MD [address] [place] [address] [place] [address] Home Care Provider Cardiothoracic Surgery 03/14/20 Tiara Cho RN [address] [place], [place] [id number] Zinc Plate Grainer Post Acute Care 03/14/20 Weigher Production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 Start Date End Date Gianfranco West MD [address] [facility] [place], [place] [address] [phone] PCP - General Family Medicine 02/03/20 Gianfranco Wells [address] [facility] [address] [place] [address] Cardiology 01/06/20 Uvaldo Tapia, GOLF CART ATTENDANT.CHICKEN TENDER [address] [facility] [address] [place] [address] Referring Cardiac Surg 03/14/20 Miah Hinson MD [address] [place] [address] [place] [address] Home Care Provider Cardiothoracic Surgery 03/14/20 Tiara Cho RN [address] [place], [place] [phone] Zinc Plate Grainer Post Acute Care 03/14/20 Weigher Production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 Start Date End Date Gianfranco West MD [address] [facility] [address] [place] [address] PCP - General Family Medicine 02/03/20 Gianfranco Wells [address] [facility] [address] [place] [address] Cardiology 01/06/20 Uvaldo Tapia, GOLF CART ATTENDANT.CHICKEN TENDER [address] [facility] [address] [place] [address] Referring Cardiac Surg 03/14/20 Miah Hinson MD [address] [place] [address] [place] [address] Home Care Provider Cardiothoracic Surgery 03/14/20 Tiara Cho RN [address] [place] [address] Zinc Plate Grainer Post Acute Care 03/14/20 Weigher Production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 Start Date End Date Gianfranco West MD [address] [place], [place] [phone] PCP - General Family Medicine 02/03/20 Gianfranco Wells [address] [place] [id number] Cardiology 01/06/20 Uvaldo Tapia APRN.CHICKEN TENDER [address] [facility] [address] [place] [address] Referring Cardiac Surg 03/14/20 Miah Hinson MD [address] [place] [address] [place] [address] Home Care Provider Cardiothoracic Surgery 03/14/20 Tiara Cho RN [address] [place] [address] Zinc Plate Grainer Post Acute Care 03/14/20 FOR RECORDS PERTAINING [...] BE BASED ON THE PRIMARY CLINICAL RECORDS. [facility]. provides no warranty or guarantee of the accuracy or completeness of information in this document.
== END | disposition home or self-care (01) ==
PROVIDERS: PCP Family Medicine; Referring Provider Family Medicine; Visit Provider Family Medicine
DX: M25.561 Pain in right knee (principal)
CPT/HCPCS: 73564

== ENCOUNTER → 2024-10-30 | Outpatient (CLI) | payer MEDICARE, SELFPAY ==
[2024-10-30 17:54] LABS: Absolute Lymphocyte Count 2.16 X10^3/uL (0.83-4.51); Absolute Neutrophil Count 5.3 X10^3/uL (2.0-7.7); Basophil# 0.13 X10^3/uL; Basophil% 1.5 % (0-1); Eosinophil# 0.56 X10^3/uL; Eosinophils% 6.3 % (0-5); Hematocrit 37.6 % (40-54); Hemoglobin 13.1 g/dL (13.0-16.5); Lymphocyte # 2.16 X10^3/ul (0.83-4.51); Lymphocyte % 24.2 % (19-41); Mean Corp Hgb Conc 34.8 g/dL (32-36); Mean Corpuscular Hgb 32.9 pg (27.0-32.0); Mean Corpuscular Volume 94.5 fL (80-94); Mean Platelet Vol. 9.6 fl (6.2-12.0); Monocyte# 0.72 X10^3/uL; Monocyte% 8.1 % (0-10); NRBC Flagged by Analyzer 0 % (0-5); Neutrophil # 5.32 X10^3/uL (2.7-7.7); Neutrophil % 59.6 % (47-70); Platelet Count 294 K/mm3 (150-450); RBC Distribution Width CV 15.2 % (11.6-14.6); RBC Distribution Width SD 51.2 fl (35.1-43.9); Red Blood Count 3.98 M/mm3 (4.6-6.2); White Blood Count 8.9 K/mm3 (4.4-11.0)
[2024-10-30 18:08] LABS: ALB/GLOB Ratio 1.2 RATIO (0.9-2.4); AST(SGOT) 17 U/L (15-37); Alanine Aminotransfer ALT/SGPT 34 U/L (16-61); Alkaline Phosphatase 113 U/L (45-117); Anion Gap 4 (5-15); BUN 11 mg/dL (7-18); BUN/Creat Ratio 10.5 RATIO (10-20); Calcium,Total 9.3 mg/dL (8.5-10.1); Chloride 111 mmol/L (98-107); Creatinine, Serum 1.05 mg/dL (0.70-1.30); EST Glomerular Filtration Rate 75 mL/min (>60); Est Glom Filt Rate - Afr Amer 90 mL/min (>60); Globulin 3.3 g/dL (2.2-4.2); Glucose 82 mg/dL (74-106); Potassium 4.1 mmol/L (3.5-5.1); Protein, Total 7.3 g/dL (6.4-8.2); Sodium Level 140 mmol/L (136-145)
== END | disposition home or self-care (01) ==
LOC: MTLAB 15:48
PROVIDERS: PCP Family Medicine; Referring Provider Internal Medicine Rheumatology; Visit Provider Internal Medicine Rheumatology
DX: M05.70 Rheumatoid arthritis with rheumatoid factor of unspecified site without organ or systems involvement (principal); Z79.899 Other long term (current) drug therapy
CPT/HCPCS: 36415; 80053; 85025

== ENCOUNTER → 2024-11-17 | Outpatient (CLI) | payer MEDICARE, SELFPAY ==
--- NOTE | 2024-11-17 09:58 | CDU_ITS ---
Reason For Study: S/P Lt CEA Rt. Velocities/BP Lt. Velocities/BP Prox CCA 78.7/14.5 cm/sec. Prox CCA 106.9/22.3 cm/sec. Mid CCA 106.9/17.9 cm/sec. Mid CCA 91.6/17.9 cm/sec. Dist CCA 81.4/17.9 cm/sec. Dist CCA 88.5/18.2 cm/sec. Prox ICA 117.4/13.3 cm/sec. Prox ICA 49.5/15.1 cm/sec. Mid ICA 79.1/22.5 cm/sec. Mid ICA 132.1/42.6 cm/sec. Dist ICA 76.2/24.5 cm/sec. Dist ICA 79.5/21.2 cm/sec. Rt. ICA/CCA = 0.74. Lt. ICA/CCA = 1.44. Prox ECA 119.3/9.7 cm/sec. Prox ECA 105.1/8.3 cm/sec. Rt. Vert. 37.8/10.7 cm/sec. Lt. Vert. 42.1/11.6 cm/sec. Right Extracranial There is intimal thickening but no significant atherosclerotic plaque noted in the right common carotid artery. There is heterogeneous, irregular atherosclerotic plaque noted in the right internal carotid artery. There is intimal thickening but no significant atherosclerotic plaque noted in the right external carotid artery. Antegrade flow is noted in the right vertebral artery. Vascularized structure noted in the right thyroid that measures 1.88 x 2.05 cm. Left Extracranial There is homogeneous, smooth atherosclerotic plaque noted in the left common carotid artery. There is intimal thickening but no significant atherosclerotic plaque noted in the left internal carotid artery. There is intimal thickening but no significant atherosclerotic plaque noted in the left external carotid artery. Antegrade flow is noted in the left vertebral artery. Procedure This is a Carotid Duplex examination using B-mode, color flow and specral Doppler. Carotid Duplex 22435. Exam performed in department. VL/Carotid Duplex Ultrasound Interpretation Summary Mild (<50%) stenosis right extracranial internal carotid. Normal left extracranial internal carotid. Elevated velocities with no plaque v isualized. Patent and antegrade vertebrals bilaterally. Vascularized structure noted in the right thyroid that measures 1.88 x 2.05 cm. Ordering Physician: Naomi West Referring Physician: Gianfranco West Performed By: Nicole Chamorro RVT
== END | disposition home or self-care (01) ==
LOC: CVS 09:55
PROVIDERS: PCP Family Medicine; Referring Provider Physician Assistant; Visit Provider Physician Assistant
DX: Z48.812 Encounter for surgical aftercare following surgery on the circulatory system (principal); I65.22 Occlusion and stenosis of left carotid artery; Z98.890 Other specified postprocedural states
CPT/HCPCS: 93880

== ENCOUNTER → 2024-11-24 | Outpatient (CLI) | payer MEDICARE, SELFPAY ==
--- NOTE | 2024-11-24 14:30 | US_ITS ---
EXAM: US SOFT TISSUES HEAD AND NECK, THYROID CLINICAL INDICATION: R thyroid abnormality noted on carotid duplex TECHNIQUE: Greyscale and color doppler imaging was performed of the thyroid gland. COMPARISON: CTA head and neck, 04/01/2024 FINDINGS: LEFT THYROID LOBE: The left thyroid lobe measures 4.8 x 1.5 x 1.7 cm. Within the left thyroid lobe, there is a 0.7 cm thyroid cyst. TI-RADS points: 0. TI-RADS category: TR1. This nodule is benign and no FNA or follow-up is necessary. Homogeneous echotexture with normal vascularity. RIGHT THYROID LOBE: The right thyroid lobe measures 4.8 x 2.9 x 2.1 cm. Within the upper pole of the right thyroid lobe, there is a nodule measuring 2.5 cm. This nodule is solid or almost completely solid, hyperechoic or isoechoic, [id number], smoothly marginated and contains no echogenic foci. TI-RADS points: 3. TI-RADS category: TR3. This nodule is mildly suspicious. Recommend FNA evaluation. Within the mid right thyroid lobe, there is a 0.6 cm thyroid cyst. TI-RADS points: 0. TI-RADS category: TR1. This nodule is benign and no FNA or follow-up is necessary. ISTHMUS: The thyroid isthmus measures 0.3 cm. No thyroid nodules are present. US/Thyroid IMPRESSION: The 2.5 cm right thyroid nodule is mildly suspicious. Recommend FNA evaluation. The other nodules described are benign. Electronically Signed: Mark aVn DO at 21:58 EST ,
== END | disposition home or self-care (01) ==
PROVIDERS: PCP Family Medicine; Referring Provider Family Medicine; Visit Provider Physician Assistant
DX: E04.1 Nontoxic single thyroid nodule (principal)
CPT/HCPCS: 76536

== ENCOUNTER → 2024-12-02 | Outpatient (CLI) | payer MEDICARE, SELFPAY ==
[2024-12-02 13:03] LABS: ALB/GLOB Ratio 1.1 RATIO (0.9-2.4); AST(SGOT) 30 U/L (15-37); Alanine Aminotransfer ALT/SGPT 94 U/L (16-61); Albumin, Serum 3.8 g/dL (3.2-5.0); Alkaline Phosphatase 109 U/L (45-117); Anion Gap 4 (5-15); BUN 14 mg/dL (7-18); BUN/Creat Ratio 15.7 RATIO (10-20); Calcium,Total 9.5 mg/dL (8.5-10.1); Chloride 107 mmol/L (98-107); Creatinine, Serum 0.89 mg/dL (0.70-1.30); EST Glomerular Filtration Rate 90 mL/min (>60); Est Glom Filt Rate - Afr Amer 109 mL/min (>60); Globulin 3.4 g/dL (2.2-4.2); Glucose 104 mg/dL (74-106); Potassium 4.1 mmol/L (3.5-5.1); Protein, Total 7.2 g/dL (6.4-8.2); Sodium Level 136 mmol/L (136-145); T4 Free Direct 1.15 ng/dL (0.76-1.46)
== END | disposition home or self-care (01) ==
LOC: MTLAB 10:33
PROVIDERS: PCP Family Medicine; Referring Provider Physician Assistant; Visit Provider Physician Assistant
DX: E04.1 Nontoxic single thyroid nodule (principal); I10 Essential (primary) hypertension
CPT/HCPCS: 36415; 80053; 84439; 84443

== ENCOUNTER → 2025-01-19 | Outpatient (CLI) | payer MEDICARE, SELFPAY ==
--- NOTE | 2025-01-19 14:45 | FLU_PTH ---
PATIENT: YARI NAVA LOC: [facility] U#:[id number] AGE/SX: 69/M ROOM: RE01/19/[address]: Dr. Kendall Jose MD : 1955 BED: DIS: 01/19/2025 SPEC #: [id number] RECD: 01/19/25 15:18 STATUS: THEO REThomas #: [id number] ARDEN: 01/19/25 14:[address]: Kendall Jose DEPT: CYTOLOGY RECD BY: Jeramy Lindo ENTERED: 01/20/25 07:41 SP TYPE: Fluid OTHR DR: Dr. Gianfranco West MD Tissues: A - Thyroid gland, NOS B - Thyroid gland, NOS Procedures: Special Stain Group II Surgery Specimen Level IV Cytospin Fluid ADDENDUM ADDENDUM ADDENDUM ADDENDUM ADDENDUM 01/26/2025 13:58 ADDENDUM 01/26/2025 13:58 ADDENDUM 01/26/2025 13:58 ADDENDUM 01/26/2025 13:58 ADDENDUM 01/26/2025 13:58 This Addendum is being issued because Part B will not be sent for [employer] testing. This corrects the previous report that said it was. Ambar Thompson M.D.
--- NOTE | 2025-01-19 14:45 | FLU_PTH ---
PATIENT: YARI NAVA [facility] U#:[id number] AGE/SX: 69/M ROOM: RE01/19/[address]: Dr. Kendall Jose MD : 1955 BED: DIS: 01/19/2025 SPEC #: [id number] RECD: 01/19/25 15:18 STATUS: AREN HUERTA #: [id number] ARDEN: 01/19/25 14:[address]: Knedall Jose DEPT: CYTOLOGY RECD BY: Jeramy Lindo ENTERED: 01/20/25 07:41 SP TYPE: Fluid OTHR DR: Dr. Gianfranco West MD Tissues: A - Thyroid gland, NOS B - Thyroid gland, NOS Procedures: Special Stain Group II Surgery Specimen Level IV Cytospin Fluid HEADER OPERATION: Fine needle aspiration of right thyroid nodule PRE-OP DIAGNOSIS: Right thyroid nodule TISSUE SUBMITTED: A- right thyroid nodule fluid for cytology, B- Right thyroid nodule slides DIAGNOSIS CYTOLOGY A,B. Right thyroid nodule, cytospins, cellblock and smears: * Negative for malignant cells. * Benign follicular cells and colloid - see Comment. COMMENT This specimen was reviewed by a second pathologist per Dr Jose's request, and the above diagnosis reflects a corrected diagnosis. Dr Jose's office ([place]) was informed of the corrected diagnosis by Dr Jean Marie Stewart (phone call 12:50 pm, 02/04/2025). The slides were reviewed in intradepartmental consultation by Dr Maximo Moore (cytopathologist [facility]). CYTOLOGY STUDY Slides are reviewed. CYTOLOGY GROSS A. Received is 30 ml of fluid labeled with the patient's name and and designated per the requisition as Right thyroid nodule. Submitted for cytology preparation including cell block. B. Received are 4 smears labeled with the patient's name and designated per the requisition as Right thyroid nodule. Submitted for staining. Mr 01/20/2025 CPT: 51296d4,548853 TC:5
--- NOTE | 2025-01-19 14:45 | FLU_PTH ---
PATIENT: YARI NAVA [facility] U#:[id number] AGE/SX: 69/M ROOM: RE01/19/[address]: Dr. Kednall Jose MD : 1955 BED: DIS: 01/19/2025 SPEC #: [id number] RECD: 01/19/25 15:18 STATUS: AREN HUERTA #: [id number] ARDEN: 01/19/25 14:[address]: Kendall Jose DEPT: CYTOLOGY RECD BY: Jeramy Lindo ENTERED: 01/20/25 07:41 SP TYPE: Fluid OTHR DR: Dr. Gianfranco West MD Tissues: A - Thyroid gland, NOS B - Thyroid gland, NOS Procedures: Special Stain Group II Surgery Specimen Level IV Cytospin Fluid HEADER OPERATION: Fine needle aspiration of right thyroid nodule PRE-OP DIAGNOSIS: Right thyroid nodule TISSUE SUBMITTED: A- right thyroid nodule fluid for cytology, B- Right thyroid nodule slides DIAGNOSIS CYTOLOGY A right thyroid nodule, cytology:Unsatisfactory due to insufficient numbers of well-visualized follicular cells.B. Right thyroid nodule, cytology:Unsatisfactory due to insufficient numbers of well-visualized follicular cells.A follicular structure and some microfollicles are identified but obscured by blood. A few hemosiderin-laden macrophages are present. CYTOLOGY STUDY Slides are reviewed. CYTOLOGY GROSS A. Received is 30 ml of fluid labeled with the patient's name and and designated per the requisition as Right thyroid nodule. Submitted for cytology preparation including cell block. B. Received are 4 smears labeled with the patient's name and designated per the requisition as Right thyroid nodule. Submitted for staining. Mr 01/20/2025 CPT: 08440i9,[id number] TC:5
== END | disposition home or self-care (01) ==
LOC: LABSPEC 15:22
PROVIDERS: PCP Family Medicine; Referring Provider Surgery; Visit Provider Surgery
DX: E04.1 Nontoxic single thyroid nodule (principal)
CPT/HCPCS: 88108; 88305; 88313

== ENCOUNTER → 2025-01-25 | Outpatient (CLI) | payer MEDICARE, SELFPAY ==
[2025-01-25 11:14] LABS: Absolute Lymphocyte Count 1.87 X10^3/uL (0.83-4.51); Absolute Neutrophil Count 4.4 X10^3/uL (2.0-7.7); Basophil# 0.11 X10^3/uL; Basophil% 1.5 % (0-1); Eosinophil# 0.48 X10^3/uL; Eosinophils% 6.5 % (0-5); Hematocrit 38.3 % (40-54); Hemoglobin 12.9 g/dL (13.0-16.5); Lymphocyte # 1.87 X10^3/ul (0.83-4.51); Lymphocyte % 25.4 % (19-41); Mean Corp Hgb Conc 33.7 g/dL (32-36); Mean Corpuscular Hgb 33.3 pg (27.0-32.0); Mean Platelet Vol. 10.7 fl (6.2-12.0); Monocyte# 0.54 X10^3/uL; Monocyte% 7.3 % (0-10); NRBC Flagged by Analyzer 0 % (0-5); Neutrophil # 4.35 X10^3/uL (2.7-7.7); Platelet Count 265 K/mm3 (150-450); RBC Distribution Width CV 15.1 % (11.6-14.6); RBC Distribution Width SD 54.6 fl (35.1-43.9); Red Blood Count 3.87 M/mm3 (4.6-6.2); White Blood Count 7.4 K/mm3 (4.4-11.0)
[2025-01-25 13:56] LABS: ALB/GLOB Ratio 1.7 RATIO (0.9-2.4); AST(SGOT) 39 U/L (<=37); Alanine Aminotransfer ALT/SGPT 51 U/L (<=46); Albumin, Serum 4.3 g/dL (3.4-4.8); Alkaline Phosphatase 97 U/L (40-129); Anion Gap 11 (5-15); BUN 15 mg/dL (4-19); BUN/Creat Ratio 14.2 RATIO (10-20); Calcium,Total 9.8 mg/dL (7.6-11.0); Chloride 104 mmol/L (98-108); Creatinine, Serum 1.08 mg/dL (0.70-1.20); EST Glomerular Filtration Rate 75 (>60); Globulin 2.5 g/dL (2.2-4.2); Glucose 109 mg/dL (70-99); Potassium 4.7 mmol/L (3.3-5.1); Protein, Total 6.8 g/dL (5.9-8.4); Sodium Level 140 mmol/L (133-145); Total Bilirubin 0.29 mg/dL (0.00-1.30)
== END | disposition home or self-care (01) ==
LOC: MTLAB 07:35
PROVIDERS: PCP Family Medicine; Referring Provider Internal Medicine Rheumatology; Visit Provider Internal Medicine Rheumatology
DX: M05.70 Rheumatoid arthritis with rheumatoid factor of unspecified site without organ or systems involvement (principal); Z79.899 Other long term (current) drug therapy
CPT/HCPCS: 36415; 80053; 85025

== ENCOUNTER → 2025-02-05 | Outpatient (CLI) | payer MEDICARE, SELFPAY ==
[2025-02-05 18:13] LABS: Microalbumin,Random Urine < 12.0 mg/L (NO RANGE EST.); Microalbumin:Creatinine Ratio UNABLE TO CALCULATE mg/g CRE
== END | disposition home or self-care (01) ==
LOC: MFPLAB 15:42
PROVIDERS: PCP Family Medicine; Referring Provider Family Medicine; Visit Provider Family Medicine
DX: E11.51 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al angiopathy without gangrene (principal)
CPT/HCPCS: 82043; 82570

== ENCOUNTER → 2025-02-24 | Outpatient (CLI) | payer MEDICARE, SELFPAY ==
[2025-02-24 15:33] LABS: ALB/GLOB Ratio 1.9 RATIO (0.9-2.4); AST(SGOT) 21 U/L (<=37); Alanine Aminotransfer ALT/SGPT 26 U/L (<=46); Albumin, Serum 4.2 g/dL (3.4-4.8); Alkaline Phosphatase 88 U/L (40-129); Anion Gap 13 (5-15); BUN 15 mg/dL (4-19); BUN/Creat Ratio 15.3 RATIO (10-20); Calcium,Total 9.3 mg/dL (7.6-11.0); Carbon Dioxide 20.4 mmol/L (21.0-32.0); Chloride 104 mmol/L (98-108); Creatinine, Serum 0.98 mg/dL (0.70-1.20); EST Glomerular Filtration Rate 84 (>60); Globulin 2.3 g/dL (2.2-4.2); Glucose 190 mg/dL (70-99); Potassium 4.3 mmol/L (3.3-5.1); Protein, Total 6.5 g/dL (5.9-8.4); Sodium Level 138 mmol/L (133-145); Total Bilirubin 0.29 mg/dL (0.00-1.30)
== END | disposition home or self-care (01) ==
LOC: MTLAB 09:42
PROVIDERS: PCP Family Medicine; Referring Provider Internal Medicine Rheumatology; Visit Provider Internal Medicine Rheumatology
DX: M05.70 Rheumatoid arthritis with rheumatoid factor of unspecified site without organ or systems involvement (principal); Z79.899 Other long term (current) drug therapy
CPT/HCPCS: 36415; 80053

== ENCOUNTER → 2025-04-22 | Outpatient (CLI) | payer MEDICARE, SELFPAY ==
[2025-04-22 12:37] LABS: Absolute Lymphocyte Count 1.29 X10^3/uL (0.83-4.51); Absolute Neutrophil Count 5.8 X10^3/uL (2.0-7.7); Basophil# 0.12 X10^3/uL; Basophil% 1.4 % (0-1); Eosinophil# 0.38 X10^3/uL; Eosinophils% 4.6 % (0-5); Hematocrit 35.8 % (40-54); Hemoglobin 12.5 g/dL (13.0-16.5); Lymphocyte # 1.29 X10^3/ul (0.83-4.51); Lymphocyte % 15.5 % (19-41); Mean Corp Hgb Conc 34.9 g/dL (32-36); Mean Corpuscular Hgb 33.5 pg (27.0-32.0); Mean Platelet Vol. 10.5 fl (6.2-12.0); Monocyte# 0.66 X10^3/uL; Monocyte% 7.9 % (0-10); NRBC Flagged by Analyzer 0 % (0-5); Neutrophil # 5.83 X10^3/uL (2.7-7.7); Platelet Count 220 K/mm3 (150-450); RBC Distribution Width CV 14.8 % (11.6-14.6); RBC Distribution Width SD 51.8 fl (35.1-43.9); Red Blood Count 3.73 M/mm3 (4.6-6.2); White Blood Count 8.3 K/mm3 (4.4-11.0)
[2025-04-22 13:51] LABS: ALB/GLOB Ratio 1.9 RATIO (0.9-2.4); AST(SGOT) 19 U/L (<=37); Alanine Aminotransfer ALT/SGPT 23 U/L (<=46); Albumin, Serum 4.4 g/dL (3.4-4.8); Alkaline Phosphatase 100 U/L (40-129); Anion Gap 13 (5-15); BUN 13 mg/dL (4-19); BUN/Creat Ratio 11.7 RATIO (10-20); Calcium,Total 9.5 mg/dL (7.6-11.0); Carbon Dioxide 21.4 mmol/L (21.0-32.0); Chloride 106 mmol/L (98-108); Creatinine, Serum 1.08 mg/dL (0.70-1.20); EST Glomerular Filtration Rate 75 (>60); Globulin 2.3 g/dL (2.2-4.2); Glucose 135 mg/dL (70-99); Potassium 4.4 mmol/L (3.3-5.1); Protein, Total 6.7 g/dL (5.9-8.4); Sodium Level 140 mmol/L (133-145); Total Bilirubin 0.51 mg/dL (0.00-1.30)
== END | disposition home or self-care (01) ==
LOC: MTLAB 10:14
PROVIDERS: PCP Family Medicine; Referring Provider Internal Medicine Rheumatology; Visit Provider Internal Medicine Rheumatology
DX: M05.70 Rheumatoid arthritis with rheumatoid factor of unspecified site without organ or systems involvement (principal); Z79.899 Other long term (current) drug therapy
CPT/HCPCS: 36415; 80053; 85025

== ENCOUNTER → 2025-07-20 | Outpatient (CLI) | payer MEDICARE, SELFPAY ==
[2025-07-20 12:37] LABS: Hematocrit 34.6 % (40-54); Hemoglobin 11.8 g/dL (13.0-16.5); Immature Granulocytes Count 0.040 X10^3/uL (0.0-0.0); Mean Corp Hgb Conc 34.1 g/dL (32-36); Mean Corpuscular Volume 98.0 fL (80-94); Mean Platelet Vol. 10.3 fl (6.2-12.0); NRBC Flagged by Analyzer 0 % (0-5); Platelet Count 227 K/mm3 (150-450); RBC Distribution Width CV 14.7 % (11.6-14.6); RBC Distribution Width SD 52.6 fl (35.1-43.9); Red Blood Count 3.53 M/mm3 (4.6-6.2); White Blood Count 9.8 K/mm3 (4.4-11.0)
[2025-07-20 13:23] LABS: AST(SGOT) 18 U/L (<=37); Alanine Aminotransfer ALT/SGPT 22 U/L (<=46); Albumin, Serum 4.3 g/dL (3.4-4.8); Alkaline Phosphatase 91 U/L (40-129); Anion Gap 12 (5-15); BUN 20 mg/dL (4-19); BUN/Creat Ratio 20.1 RATIO (10-20); Calcium,Total 9.7 mg/dL (7.6-11.0); Carbon Dioxide 20.5 mmol/L (21.0-32.0); Chloride 108 mmol/L (98-108); Cholesterol 95 mg/dL (<=200); Globulin 2.1 g/dL (2.2-4.2); Glucose 117 mg/dL (70-99); Low Density Lipoprotein Calc. 29 mg/dL; Potassium 4.0 mmol/L (3.3-5.1); Triglycerides 98 mg/dL; Very Low Density Lipoprotein 20 mg/dL (5-40); cholesterol:hdl ratio screen 2.01
== END | disposition home or self-care (01) ==
LOC: MTLAB 11:07
PROVIDERS: PCP Family Medicine; Referring Provider Internal Medicine Rheumatology; Visit Provider Internal Medicine Rheumatology
DX: E11.51 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al angiopathy without gangrene (principal); M05.70 Rheumatoid arthritis with rheumatoid factor of unspecified site without organ or systems involvement; Z79.899 Other long term (current) drug therapy
CPT/HCPCS: 36415; 80053; 80061; 85025

== ENCOUNTER → 2025-10-19 | Outpatient (CLI) | payer MEDICARE, SELFPAY ==
[2025-10-19 17:39] LABS: Hematocrit 35.9 % (40-54); Hemoglobin 12.1 g/dL (13.0-16.5); Immature Granulocytes Count 0.030 X10^3/uL (0.0-0.0); Mean Corp Hgb Conc 33.7 g/dL (32-36); Mean Corpuscular Volume 99.4 fL (80-94); Mean Platelet Vol. 10.3 fl (6.2-12.0); NRBC Flagged by Analyzer 0 % (0-5); Platelet Count 280 K/mm3 (150-450); RBC Distribution Width CV 15.4 % (11.6-14.6); RBC Distribution Width SD 55.6 fl (35.1-43.9); Red Blood Count 3.61 M/mm3 (4.6-6.2); White Blood Count 7.8 K/mm3 (4.4-11.0)
--- OUTSIDE RECORDS SUMMARY | 2025-10-19 17:42 | XMS RPT_ITS | CCD ---
Author Organization [facility] Care Team Providers Care Curator [employer] Name Role Phone Brandon Clifford MD Unavailable Dr. Tania West Primary Care Provider Dr. Tania West Referring Provider MITA Hidalgo NP Attending Provider Dr. Tania West Primary Care Provider Dr. Tania West Referring Provider MITA Hidalgo NP Attending Provider Dr. Tania Wells Attending Provider Tania Wells Unavailable Tania West MD Primary Care Provider [phone] John MARKETING ACCOUNT MANAGER.ELDERLY CAREGIVER, Weina Unavailable Miah Hinson MD Unavailable Tiara Cho RN Unavailable Dr. Tania West Primary Care Provider Dr. Tania West Referring Provider MITA Hidalgo NP Attending Provider Dr. Tania Wells Attending Provider Dr. David Tenorio Emergency Provider [phone] Saranya Downey Attending Provider Unavailable DAMIEN Taylor Attending Provider Tania Wells Unavailable Tania West MD Primary Care Provider [phone] John MARKETING ACCOUNT MANAGER.ELDERLY CAREGIVER, Weina Unavailable Miah Hinson MD Unavailable Most MARTINS, Tiara Unavailable Brett, Dr. Medel Primary Care Provider Brett, Dr. Medel Referring Provider Brett, Dr. Medel Primary Care Provider Dr. Tania Wells Attending Provider Brett, Dr. Medel Primary Care Provider Brett, Dr. Medel Referring Provider Rocky WISDOM, SYSTEMS ANALYSIS MANAGER-C Nayeli Attending Provider Tania West MD Primary Care Provider RN, Tiara Unavailable Brett, Dr. Medel Primary Care Provider Brett, Dr. Medel Referring Provider Rocky SYSTEMS ANALYSIS MANAGER, SYSTEMS ANALYSIS MANAGER-C Nayeli Attending Provider Brett, Dr. Medel Primary Care Provider Brett, Dr. Medel Referring Provider Rocky SYSTEMS ANALYSIS MANAGER, SYSTEMS ANALYSIS MANAGER-C Nayeli Attending Provider Dr. David Huynh Attending Provider 1([facility])-[phone] Tania Wells MD Unavailable Tania West MD Primary Care Provider 1([facility])[phone] John MARKETING ACCOUNT MANAGER.ELDERLY CAREGIVER, Weina Unavailable DALIA AUGUSTINE Referring Unavail able TANIA WEST Primary Care Unavailable DALIA AUGUSTINE Referring Unavail able TANIA WEST Primary Care Unavailable Dr. Tania West MD Primary Care Provider Julio STUBBS, Dr. Thomas Attending Provider Julio STUBBS, Dr. Thomas Referring Provider Naomi Keen Attending Provider [phone] Naomi Keen Referring Provider 1([facility])-[phone] David Huynh MD Attending Provider [phone] Brett STUBBS, Dr. Medel Referring Provider Rebeca STUBBS, Dr. Argueta Attending Provider Rebeca STUBBS, Dr. Argueta Referring Provider Brett STUBBS, Dr. Medel Attending Provider Brett STUBBS, Dr. Medel Primary Care Provider Donna STUBBS, Dr. Dooley Attending Provider Donna STUBBS, Dr. Dooley Referring Provider Julio STUBBS, Dr. Thomas Attending Provider Julio STUBBS, Dr. Thomas Referring Provider Brett STUBBS, Tania Dasilva Primary Care Provider Abhijeet RN, Virginia Unavailable Unavailable Brett STUBBS, Dr. Medel Primary Care Provider Brett STUBBS, Dr. Medel Referring Provider Brett STUBBS, Dr. Medel Primary Care Provider Julio STUBBS, Dr. Thomas Attending Provider Julio STUBBS, Dr. Thomas Referring Provider Brett STUBBS, Dr. Medel Referring Provider Naomi Keen Attending Provider TANIA WEST Primary Care Unavailable DALIA AUGUSTINE Attending Unavail able BORIS EDGE Referring Unavailable WESTTANIA TAMAYO Primary Care Unavailable SUSAN, SUDISH Attending Unavailable WEST, TANIA Dasilva Primary Care Unavailable SUSAN, SUDISH Referring Unavailable LOW, SEE-DAE Attending Unavailable LOW, SEE-[facility] Admitting Unavailable WEST, TANIA Dasilva Primary Care Unavailable JULYAGAMCHARLES, LUCIO H Attending Unavailable TANIA WEST Primary Care Unavailable MINERVA SALAZAR Referring Unavailable KAYLENE FELIZ Referring Unavailable WEST, TANIA Dasilva Primary Care Unavailable KAYLENE FELIZ Referring Unavailable WEST, TANIA Dasilva Primary Care Unavailable KOPRIVANSURAJ, MARIJAN Referring Unavailable LYNNE GRIFFITH Attending Unavailable WESTTANIA TAMAYO Primary Care Unavailable BORIS EDGE Referring Unavailable WEST, TANIA Dasilva Primary Care Unavailable WEST, TANIA Dasilva Primary Care Unavailable SALAZAR, MINERVA S Referring Unavailable SALAZAR, MINERVA S Attending Unavailable SUSAN, SUDISH Referring Unavailable WEST, TANIA R Primary Care Unavailable WEST, TANIA R Primary Care Unavailable MALVINREEMAIbethCHERRIELUCIO H Attending Unavailable WEST, TANIA R Primary Care Unavailable SALAZAR, MINERVA S Referring Unavailable WEST, TANIA R Primary Care Unavailable FAWNDALIA GardinerA Referring Unavail able WEST, TANIA R Primary Care Unavailable SALAZAR, MINERVA S Referring Unavailable STEPKAYLENE ALVES L Attending Unavailable SUSAN, SUDISH Referring Unavailable WEST, TANIA R Primary Care Unavailable STEPHANS, KAYLENE L Attending Unavailable WEST, TANIA R Primary Care Unavailable SUSAN, SUDISH Referring Unavailable SALAZAR, MINERVA S Referring Unavailable WEST, TANIA R Primary Care Unavailable MALIK CRUZ Attending Unavailable SUSAN, SASCHAISH Attending Unavailable WEST, TANIA R Primary Care Unavailable FAWN, DALIA PHILLIPSA Referring Unavail able STEPLONG, KAYLENE L Referring Unavailable WEST, TANIA R Primary Care Unavailable STEPLONG, KAYLENE L Attending Unavailable WEST, TANIA R Primary Care Unavailable WEST, TANIA R Primary Care Unavailable SUSAN, SUDISH Referring Unavailable WEST, TANIA R Primary Care Unavailable STEPLONG, KAYLENE L Attending Unavailable LYNNE GRIFFITH Referring Unavailable WEST, TANIA R Primary Care Unavailable WEST, TANIA R Primary Care Unavailable CASS, MINERVA S Referring Unavailable STEPKAYLENE ALVES Attending Unavailable West , Dr. Medel Primary Care Physician Dr. Martha Kim MD Attending Physician Naomi Keen Attending Physician [phone] Tania West Referring Unavailable Zhang Jose Attending Unavailable Brett, Tania Primary Care Unavailable West, Tania Primary Care Unavailable West, Tania Referring Unavailable Saranya Taylor Attending Unavail able Brett, Tania Referring Unavailable Naomi West Attending Unavailable Brett, Tania Primary Care Unavailable Miah Thompson Referring Unavailable Miah Thompson Attending Unavailable West, Tania Primary Care Unavailable West, Tania Referring Unavailable Borcharles, Zhang Attending Unavailable Brett, Tania Primary Care Unavailable David Huynh Attending Unavailable Brett, Tania Primary Care Unavailable Naomi West Referring Unavailable Martha Kim Attending Unavailable Martha Kim Referring Unavailable West, Tania Primary Care Unavailable Vellanki, Martha Attending Unavailable Vellanki, Martha Referring Unavailable West, Tania Primary Care Unavailable West, Tania Referring Unavailable West, Tania Attending Unavailable West, Tania Primary Care Unavailable Vellanki, Martha Referring Unavailable Vellanki, Martha Attending Unavailable West, Tania Primary Care Unavailable West, Tania Referring Unavailable West, Naomi Attending Unavailable West, Tania Primary Care Unavailable Rebeca, Zhang Referring Unavailable Zhang Jose Attending Unavailable West, Tania Primary Care Unavailable West, Naomi Attending Unavailable West, Tania Primary Care Unavailable West, Naomi Referring Unavailable Vellanki, Martha Referring Unavailable Vellanki, Martha Attending Unavailable West, Tania Primary Care Unavailable West, Tania Primary Care Unavailable West, Naomi Referring Unavailable West, Naomi Attending Unavailable Vellanki, Martha Attending Unavailable Vellanki, Martha Referring Unavailable West, Tania Primary Care Unavailable Allergies Allergy Classification Reported Allergen(s) Allergy Type Date of Onset Reaction(s) Facility (1 source) Penicillin Drug Allergy 9 swelling [facility] Work Phone: (20 sources) Penicillins; Translations: [PENICILLINS] Allergy to substance 1 Swelling [facility] Medications Current Medications Medication Drug Class(es) Dates Sig (Normalized) Sig (Original) [id number] 200 actuat albuterol 0.09 mg/actuat metered dose inhaler (20 sources) beta2-Adrenergic Agonist Start: 04-18-2020 End: 11-21-2020 Start: 04-18-2020 End: 11-21-2020 take 1 puff(s) by inhalation every six hours Albuterol Sulfate (Ventolin Hfa) 90 mcg/actuation HFA aerosol inhaler Active 2 PUFF INHALATION EVERY 6 HOURS November 21, 2020 1:00am Start: 03-24-2020 End: 04-07-2020 Albuterol Sulfate (Proair Hf a) 90 mcg/actuation HFA aerosol inhaler Discontinued 2 NMA INHALATION EVERY 6 HOURS as needed March 24, 2020 12:00am April 07, 2020 2:47pm Start: 03-24-2020 End: 04-07-2020 take 1 puff(s) by inhalation every six hours Albuterol Sulfate (Proair Hfa) 90 mcg/actuation HFA aerosol inhaler Discontinued 2 PUFF INHALATION EVERY 6 HOURS March 24, 2020 12:00am April 07, 2020 2:47pm Start: 03-14-2020 take 2 puff(s) by in halation every six hours as needed albuterol HFA (PROAIR HFA) 90 mcg/actuation inhaler 2 Puffs every 6 hours as needed. Take as directed 1 Inhaler 03/14/2020 Active Start: 03-14-2020 albuterol HFA (PROAIR HFA) 90 mcg/actuation inhaler [The details of the medication are not available because there are pending changes by a home health clinician.] 1 Inhaler 0 03/14/2020 Suspended Start: 11-03-2018 End: 11-25-2019 take 90 ug by inhalation every four hours as needed Albuterol Sulfate (Proair Respiclick) 90 mcg/actuation aerosol powdr breath activated Discontinued 2 NMA INHALATION Q4H as needed November 03, 2018 1:00am November 25, 2019 3:31pm Start: 11-03-2018 End: 11-25-2019 take 1 puff(s) by inhalation every four hours albuterol sulfate 90 mcg/actuation breath activated powder inhaler Discontinued 2 PUFF INHALATION Q4H November 03, 2018 1:00am November 25, 2019 3:31pm Comment on above: [The details of the medication are not available because there are pending changes by a home health clinician.] 2 Puffs every 6 hour s as needed. Take as directed ARIPiprazole 5 mg oral tablet (20 sources) Atypical Antipsychotic Start: 01-19-2025 take 1 tablet by mouth once daily Start: 01-15-2022 End: 07-19-2022 take 2 mg by mouth once daily Aripiprazole 20 mg table t Discontinued 2 mg PO DAILY January 15, 2022 10:22am July 19, 2022 9:33am Start: 01-15-2022 End: 07-19-2022 take 2 mg by mouth once daily Aripiprazole Discontinue d 2 MG PO DAILY January 15, 2022 10:22am July 19, 2022 9:33am Start: 01-15-2022 End: 01-15-2022 take 1 tablet by mouth once daily Aripiprazole 20 mg tablet Discontinued 20 mg PO DAILY January 15, 2022 1:00am January 15, 2022 10:23am aspirin 81 mg delayed release oral tablet (20 sources) Platelet Aggregation Inhibitor, Nonsteroidal Anti-inflammatory Drug Start: 04-18-2020 take 1 tablet by mouth once daily aspirin, enteric coated (ECOTRIN LOW STRENGTH) 81 mg EC tablet Take 1 tablet by mouth once daily. 04/18/2020 Active Start: 12-05-2019 End: 04-07-2020 take 1 tablet by mouth once daily Start: 11-13-2018 End: 11-25-2019 take 2 tablets by mouth once daily Aspirin 325 mg tablet Discontinued 650 mg PO DAILY November 13, 2018 12:27pm November 25, 2019 3:32pm Start: 11-13-2018 End: 11-25-2019 take 650 mg by mouth once daily Aspirin Discontinued 6 50 MG PO DAILY November 13, 2018 12:27pm November 25, 2019 3:32pm Start: 11-03-2018 End: 11-13-2018 take 1 tablet by mouth once daily Aspirin 325 mg tablet Discontinued 325 mg PO DAILY November 03, 2018 1:00am November 13, 2018 12:28pm Start: 01-25-2014 End: 11-03-2018 take 4 tablets by mouth once daily Aspirin 81 MG tablet,chewable Discontinued 324 mg PO DAILY@0800 January 25, 2014 12:00am November 03, 2018 4:21pm Start: 01-25-2014 End: 11-03-2018 take 324 mg by mouth once daily Aspirin Discontinued 3 24 MG PO DAILY@08January 25, 2014 12:00am November 03, 2018 4:21pm Comment on above: Take 1 tablet by [facility] once daily. cholecalciferol 0.025 mg ora l tablet (20 sources) Vitamin D Start: 03-24-2020 take 1 tablet by mouth once daily Start: 12-05-2019 End: 03-24-2020 take 1 tablet by mouth once daily Cholecalciferol (Vitamin D3) 1,000 UNIT tablet Discontinued 1000 U PO DAILY December 05, 2019 1:00am March 24, 2020 4:45pm take [address] [facility] once daily Cholecalciferol, Vitamin D3, 50 mcg (2,000 unit) cap Take 2,000 Units by mouth once daily. Active Comment on above: Take 2,000 Units by mouth once daily. fluticasone propionate 0.05 mg/actuat metered dose nasal spray (14 sources) Corticosteroid Start: 01-17-2023 take 50 ug nasal route every twelve hours as needed Start: 01-17-2023 take 1 spray(s) nasa l route every twelve hours Fluticasone Propionate (Flonase Allergy Relief) 50 mcg/actuation spray,suspension Active 1 SPRAY INTRANASAL Q12H January 17, 2023 1:00am administer into each nostril Mmxknfagbdh-Wspbnnstp-Xgmlus er (20 sources) Start: 01-15-2022 Hzudebdloqq-Knintfmgh-Ekvurh er (Trelegy Ellipta) 200-62.5-25 mcg blister with device Active 1 INH INHALATION DAILY January 15, 2022 10:05am Start: 01-15-2022 Start: 01-15-2022 Fluticasone-Um eclidin-Vilanter (Trelegy Ellipta) 200-62.5-25 mcg blister with device Active 1 NMA INHALATION DAILY January 15, 2022 1:00am SHORTNESS OF BREATH/WHEEZING Start: 01-15-2022 Fluticasone-Um eclidin-Vilanter (Trelegy Ellipta) 200-62.5-25 mcg blister with device Active 1 NMA INHALATION DAILY January 15, 2022 1:00am Start: 01-15-2022 Fluticasone-Um eclidin-Vilanter (Trelegy Ellipta) 200-62.5-25 mcg blister with device Active 1 INH INHALATION DAILY January 15, 2022 12:00am Start: 01-15-2022 Fluticasone-Um eclidin-Vilanter (Trelegy Ellipta) 200-62.5-25 mcg blister with device Active 1 INH INHALATION DAILY January 15, 2022 1:00am folic acid 1 mg oral tablet (20 sources) Start: 03-31-2024 take 2 tablets by mouth once d aily Start: 10-09-2023 take 1 tablet by isabel th once daily folic acid 1 mg tablet Take 1 mg by mouth once daily. 10/09/2023 Active furosemide 40 mg oral tablet (20 sources) Loop Diuretic Start: 07-20-2022 take 1 tablet by mouth once daily Furosemide (Lasix) 40 mg tablet Active 40 MG PO DAILY July 20, 2022 12:00am Start: 03-24-2020 End: 04-07-2020 take 1 tablet by mouth once daily Furosemide 20 mg tablet Discontinued 20 mg PO DAILY March 24, 2020 12:00am April 07, 2020 2:45pm glucosamine sulfate 500 mg oral tablet (7 sources) Start: 01-19-2025 take 1 tablet by mouth twice daily at mealtime hydroxychloroquine sulfate 200 mg oral tablet (20 sources) Antimalarial, Antirheumatic Agent Start: 09-15-2024 take 1 tablet by mouth twice daily Start: 05-14-2021 End: 07-05-2021 take 1 tablet by mouth once daily Hydroxychloroquine 200 mg tablet Discontinued 200 mg PO DAILY May 14, 2021 12:00am July 05, 2021 1:39pm iv contrast (will be provided with radiology test) (7 sources) Start: 12-28-2024 End: 12-29-2024 inject 1 dose intravenously once iv contrast (will be provided with radiology test) MRI Brain Inject, intravenously, once for 1 dose.No IV access, insert saline lock prior to beginning of sedation, infusion, injection of imaging exam.Discontinue saline lock post exam. If Pt. has a central line or IVAD, may access for administration according to line specific nursing protocol.Once exam is complete flush line and de-access according to line specific nursing protocol in the MR contrast administration guidelines link 1 Each 12/28/2024 12/29/2024 Active Start: 10-29-2024 End: 10-30-2024 inject 1 dose intravenously once iv contrast (will be provided with radiology test) Indications: Dissection of ascending aorta (HCC) , S/P ascending aortic aneurysm repair , Lung nodule , Disorder of artery or arteriole (HCC) CTA Chest. No IV access, insert saline lock prior to the sedation, infusion, injection for imaging exam. Discontinue saline lock post exam. If Pt. has a central line or IVAD, may access for administration according to line specific nursing protocol. Once exam is complete flush line and de-access according to line specific nursing protocol in the CT contrast administration guidelines link. 1 Each 10/29/2024 10/30/2024 Active 24 hr metFORMIN hydrochlorid e 500 mg extended release oral tablet (20 sources) Biguanide Start: 04-18-2020 take 1 tablet by isabel th once daily Start: 03-24-2020 End: 03-31-2024 take 1 tablet by mouth once daily Metformin 500 mg tablet Discontinued 500 mg PO DAILY March 24, 2020 12:00am March 31, 2024 1:38pm Comment on above: Take 1 tablet by isabel daily with breakfast. methotrexate 2.5 mg oral tab let (20 sources) Folate Analog Metabolic Inhibitor Start: 01-23-2024 Start: 01-23-2024 take 6 tablets by mo ut every week Methotrexate Sodium Active 2.5 MG PO EVERY WEEK January 23, 2024 1:00am 6 tablets weekly Start: 10-09-2023 take 1 tablet by mouth once me thotrexate 2.5 mg tablet Take 2.5 mg by mouth every Saturday. 5 tablets 1x a week on Saturdays10/09/2023 Active Multivit With Min-Folic Acid (Centrum Adult 50 Plus) 80 mcg tablet,chewable (7 sources) Start: 03-31-2024 Start: 03-31-2024 Multivit With Min-Folic Acid (Centrum Adult 50 Plus) 80 mcg tablet,chewable Active 0.5 {tbl} PO DAILY March 31, 2024 12:00am HEALTH MAINTENANCE Start: 03-31-2024 Multivit With Min-Folic Acid (Centrum Adult 50 Plus) 80 mcg tablet,chewable Active 0.5 {tbl} PO DAILY March 31, 2024 12:00am perflutren lipid microspheres 1.3 mL in NaCl (PF) 0.9% 10 mL injection (DEFINITY) (7 sources) Start: 08-21-2022 End: 11-20-2023 perflutren lipid microspheres 1.3 mL in NaCl (PF) 0.9% 10 mL injection (DEFINITY) predniSONE 10 mg oral tablet (20 sources) Start: 10-09-2023 take 1 tablet by mouth once daily predniSONE (DELTASONE) 10 mg tablet Take 10 mg by mouth once daily. 10/09/2023 Active Start: 01-15-2022 End: 09-03-2022 take 1 tablet by mouth once daily Prednisone 5 mg tablet Discontinued 5 mg PO DAILY January 15, 2022 10:07am September 03, 2022 4:18pm Start: 08-16-2021 End: 01-15-2022 take 2.5 mg by mouth once daily Prednisone 5 mg tablet Discontinued 2.5 mg PO DAILY August 16, 2021 12:00am January 15, 2022 10:07am Start: 08-16-2021 End: 01-15-2022 take 2.5 mg by mouth once daily Prednisone Discontinue d 2.5 MG PO DAILY August 16, 2021 12:00am January 15, 2022 10:07am Start: 05-14-2021 End: 05-19-2021 take 2 tablets by mouth once daily Prednisone 20 mg tablet Discontinued 40 mg PO DAILY 10 5 0 May 14, 2021 12:00am May 18, 2021 12:00am May 19, 2021 12:01am Start: 05-14-2021 End: 05-19-2021 take 40 mg by mouth once daily Prednisone Discontinued 40 MG PO DAILY 10 5 May 14, 2021 12:00am May 19, 2021 12:01am Start: 01-01-2021 End: 07-05-2021 Prednisone 10 MG tablet Disc ontinued 10 mg PO DAILY 63 0 January 01, 2021 1:00am July 05, 2021 1:40pm 60 mg p.o. daily 3 days, 50 mg p.o. daily 3 days, 40 mg p.o. daily 3 days, 30 mg p.o. daily 3 days, 20 mg p.o. daily 3 days, 10 mg p.o. daily 3 days. Start: 12-08-2020 End: 05-14-2021 take 1 tablet by mouth twice daily Prednisone 10 mg tablet Discontinued 10 mg PO TWICE A DAY 14 0 December 08, 2020 1:00am May 14, 2021 1:34pm Start: 11-21-2020 End: 05-14-2021 take 1 tablet by mouth once daily Prednisone 10 mg tablet Discontinued 10 mg PO DAILY November 21, 2020 1:00am May 14, 2021 1:34pm Start: 06-21-2020 End: 07-13-2020 take 1 tablet by mouth once daily Prednisone 20 MG tablet Discontinued 20 mg PO DAILY June 21, 2020 12:00am July 13, 2020 10:01am 125 ml sodium chloride 9 mg/ml prefilled syringe (7 sources) Start: 08-21-2022 End: 11-20-2023 sodium chloride 0.9 % (flush) 10 mL (BD POSIFLUSH) traMADol hydrochloride 50 mg oral tablet (20 sources) Opioid Agonist Start: 01-23-2024 take 1 tablet by mouth three times daily as needed for pain Start: 01-23-2024 take 50 mg by mouth twice eduin y Tramadol Active 50 MG PO TWICE A DAY January 23, 2024 1:00am Start: 03-12-2022 End: 07-19-2022 take 1 tablet by mouth every six hours as needed for pain Tramadol 50 mg tablet Discontinued 50 mg PO EVERY 6 HOURS as needed for pain 12 3 0 March 12, 2022 12:00am July 19, 2022 9:35am Right-sided chest wall pain Other chest pain ubidecarenone 100 mg oral ca psule (20 sources) Start: 07-05-2021 Coenzyme Q10 ( Co Q-10) 100 mg capsule Active 200 MG PO DAILY July 05, 2021 1:38pm Start: 03-24-2020 End: 07-05-2021 Comment on above: Take 100 mg by mouth once daily. Completed/Discontinued Medications Medication Drug Class(es) Dates Sig (Normalized) Sig (Original) 1 ml abatacept 125 mg/ml prefilled syringe (20 sources) Selective T Cell Costimulation Modulator Start: 01-17-2023 End: 07-25-2023 Abatacept (Orencia) 125 mg/mL syringe Discontinued 125 mg SC EVERY WEEK January 17, 2023 1:00am July 25, 2023 10:18am Start: 01-15-2022 End: 09-11-2022 Abatacept (Orencia) 125 mg/m L syringe Discontinued 125 mg SC EVERY WEEK January 15, 2022 1:00am September 11, 2022 3:34pm acetaminophen 500 mg oral tablet (20 sources) Start: 09-03-2022 End: 03-31-2024 take 1 tablet by mouth every six hours as needed Acetaminophen 500 mg tablet Discontinued 500 mg PO EVERY 6 HOURS as needed September 03, 2022 12:00am March 31, 2024 2:30pm Start: 08-23-2022 take 2 tablets by mo [facility] every six hours as needed acetaminophen (TYLENOL) 500 mg tablet Take 2 tablets by mouth every 6 hours as needed for pain. No more than 4000 mg total for a 24 hours window. Thanks. 08/23/2022 Active Start: 03-14-2020 acetaminophen (TYLENOL) 500 mg tablet [The details of the medication are not available because there are pending changes by a home health clinician.] 0 03/14/2020 Suspended Comment on above: [The details of the medication are not available because there are pending changes by a home health clinician.] Take [address] [facility] every 6 hours as needed for pain. No more than 4000 mg total for a 24 hours window. Thanks. acetaminophen 325 mg / HYDROcodone bitartrate 5 mg oral tablet (14 sources) Opioid Agonist Start: 04-13-2023 End: 07-25-2023 Hydrocodone-Acetaminoph en 5-325 mg tablet Discontinued 1 {tbl} PO EVERY 6 HOURS NEEDED as needed for Pain 10 3 April 13, 2023 July 25, 2023 10:19am Contusion of lower back and pelvis, initial encounter Injury due to fall Contusion of lower back and pelvis, initial encounter Unspecified fall, initial encounter Start: 04-13-2023 End: 07-25-2023 take 1 tablet by mouth every six hours as needed Hydrocodone-Acetaminophen Discontinued 1 TABLET PO EVERY 6 HOURS NEEDED 10 April 13, 2023 July 25, 2023 10:19am acetaminophen 325 mg / oxyCODONE hydrochloride 5 mg oral tablet (20 sources) Opioid Agonist Start: 06-21-2020 End: 06-24-2020 Oxycodone-Acetaminophen 1 TABLET tablet Discontinued 1 {tbl} PO EVERY 6 HOURS NEEDED as needed for Pain 12 3 0 June 21, 2020 June 23, 2020 12:00am June 24, 2020 12:02am Gout Gout, unspecified Start: 06-21-2020 End: 06-24-2020 take 1 tablet by mouth every six hours as needed Oxycodone-Acetaminophen Discontinued 1 TABLET PO EVERY 6 HOURS NEEDED 12 3 June 21, 2020 June 24, 2020 12:02am Start: 10-27-2018 End: 10-30-2018 Oxycodone-Acetaminophen 1 TA BLET tablet Discontinued 1 {tbl} PO EVERY 6 HOURS NEEDED as needed for Pain 12 3 0 October 27, 2018 1:00am October 29, 2018 1:00am October 30, 2018 1:12am Tear of meniscus of right knee Start: 10-27-2018 End: 10-30-2018 take 1 tablet by mouth every six hours as needed Oxycodone-Acetaminophen Discontinued 1 TABLET PO EVERY 6 HOURS NEEDED 10 20October 27, 2018 1:00am October 30, 2018 1:12am 0.8 ml adalimumab 50 mg/ml prefilled syringe (20 sources) Tumor Necrosis Factor Gideon Start: 07-05-2021 End: 01-15-2022 Adalimumab (Humira) 40 mg/0.8 mL syringe kit Discontinued 40 mg SC every 2 weeks July 05, 2021 12:00am January 15, 2022 10:20am allopurinol 100 mg oral tablet (20 sources) Xanthine Oxidase Inhibitor Start: 11-21-2020 End: 09-11-2022 take 1 tablet by mouth once daily Allopurinol 100 mg tablet Discontinued 100 mg PO DAILY November 21, 2020 1:00am September 11, 2022 3:34pm aluminum hydroxide 40 mg/ml / magnesium hydroxide 40 mg/ml / simethicone 4 mg/ml oral suspension (20 sources) Start: 09-03-2022 End: 03-31-2024 take 1 mL by mouth three times daily at mealtime for gastroesophageal reflux disease Alum-Mag Hydroxide-Simeth (Maalox Advanced) 200-200-20 mg/5 mL suspension Discontinued 30 mL PO THREE TIMES A DAY as needed for HEARTBURN September 03, 2022 12:00am March 31, 2024 2:30pm administer between meals Start: 09-03-2022 take 1 mL by mouth t hree times daily at mealtime Alum-Mag Hydroxide-Simeth (Maalox Advanced) 200-200-20 mg/5 mL suspension Active 30 ML PO THREE TIMES A DAY September 03, 2022 12:00am administer between meals Start: 08-23-2022 aluminum-magne sium hydroxide-simethicone (MAALOX,MYLANTA,MAG-AL PLUS) 200-200-20 mg/5 mL suspension Take 30 mL by mouth as needed (Second Line Therapy). 08/23/2022 Active Comment on above: Take 30 mL by mouth as needed (Second Line Therapy). amLODIPine 5 mg oral tablet (20 sources) Dihydropyridine Calcium Channel Gideon Start: 01-15-20 End: 03-24-20 take 1 tablet by mouth once daily Amlodipine 5 mg tablet Discontinued 5 mg PO DAILY 30 12 February 28th, 2020 4:17pm March 24, 2020 4:45pm atorvastatin 80 mg oral tablet (20 sources) HMG-CoA Reductase Inhibitor Start: 04-01-20 End: 12-04-19 take 1 tablet by mouth at bedtime Atorvastatin 80 mg tablet Discontinued 80 mg PO AT BEDTIME 90 3 December 02, 2024 10:55am December 04, 2024 5:44pm CHOLESTEROL Start: 08-23-2022 End: 04-01-2024 take 1 tablet by mouth at bedtime Atorvastatin 40 mg tablet Discontinued 40 mg PO AT BEDTIME 90 3 April 29, 2023 3:31pm April 01, 2024 5:30pm CHOLESTEROL Comment on above: Take 1 tablet by isabel th daily at bedtime. Blood-Glucose Meter (ONETOUCH VERIO FLEX) (1 source) Start: 03-14-20 End: 08-16-20 Blood-Glucose Meter (ONETOUCH VERIO FLEX) 1 Box as directed. Check BS 3 times aday1 1 Each 0 03/14/2020 08/16/2022 Discontinued (Erroneous entry) Comment on above: 1 Box as directed. Kaya travis BS 3 times aday1 24 hr buPROPion hydrochloride 300 mg extended release oral tablet (20 sources) Aminoketone Start: 01-15-20 End: 04-07-20 take 1 tablet by mouth once daily Bupropion Hcl 300 MG tablet extended release 24 hr Discontinued 300 mg PO DAILY January 15, 2020 1:00am April 07, 2020 2:47pm clopidogrel 75 mg oral tablet (14 sources) [id number] Platelet Inhibitor Start: 04-01-20 End: 05-14-20 take 1 tablet by mouth once daily Clopidogrel (Plavix) 75 mg tablet Discontinued 75 mg PO DAILY 30 April 23, 2024 9:56am May 14, 2024 11:29am CAD docusate sodium 250 mg oral capsule (20 sources) Start: 09-11-20 End: 01-18-20 take 1 capsule by mouth once daily Docusate Sodium 250 mg capsule Discontinued 250 mg PO DAILY September 11, 2022 12:00am January 17, 2023 11:32am Start: 04-07-2020 End: 07-13-2020 take 1 capsule by mouth once daily as needed for constipation Docusate Sodium (Colace) 100 mg capsule Discontinued 100 mg PO DAILY as needed for Constipation April 07, 2020 12:00am July 13, 2020 10:00am End: 08-30-2022 take 1 capsule by mouth once daily Docusate Sodium 250 mg capsule Take 250 mg by mouth once daily. 0 08/30/2022 Discontinued Comment on above: Take 250 mg by mouth once daily. DULoxetine 60 mg delayed release oral capsule (20 sources) Serotonin and Norepinephrine Reuptake Inhibitor Start: 07-13-20 End: 07-05-20 take 1 capsule by mouth once daily Duloxetine 60 mg capsule,delayed release(DR/EC) Discontinued 60 mg PO DAILY November 21, 2020 9:42am July 05, 2021 1:39pm Start: 07-13-2020 End: 11-21-2020 Duloxetine 60 mg capsule,del ayed release(DR/EC) Discontinued NMA PO July 13, 2020 12:00am November 21, 2020 9:44am gabapentin 100 mg oral capsule (20 sources) Anti-epileptic Agent Start: 03-24-2020 End: 04-07-2020 take 1 capsule by mouth twice daily Gabapentin 100 mg capsule Discontinued 100 mg PO TWICE A DAY March 24, 2020 12:00am April 07, 2020 2:45pm glimepiride 1 mg oral tablet (20 sources) Sulfonylurea Start: 09-03-2022 End: 01-17-2023 take 0.5 mg by mouth once daily at breakfast Glimepiride Discontinued 0.5 MG PO EVERY MORNING September 03, 2022 12:00am January 17, 2023 11:32am administer with breakfast Start: 03-24-2020 End: 07-13-2020 take 0.5 mg by mouth once daily Glimepiride Discontinu ed 0.5 MG PO DAILY March 24, 2020 12:00am July 13, 2020 10:00am Start: 03-15-2020 End: 03-16-2025 take 0.5 mg by mouth once daily at breakfast Glimepiride 1 mg tablet Discontinued 0.5 mg PO EVERY MORNING September 03, 2022 12:00am January 17, 2023 11:32am administer with breakfast Comment on above: Take 0.5 tablets by mouth daily with breakfast. 12 hr guaiFENesin 600 mg extended release oral tablet (20 sources) Start: 08-23-20 End: 03-31-20 take 1 tablet by mouth every twelve hours as needed for congestion, then take 1 tablet by mouth every twelve hours as needed for congestion Guaifenesin (Mucinex) 600 mg tablet extended release 12hr Discontinued 600 mg PO Q12H as needed for CONGESTION September 03, 2022 12:00am March 31, 2024 2:27pm Comment on above: Take 1 tablet by isabel th every 12 hours as needed (cough). ibuprofen 200 mg oral tablet (20 sources) Nonsteroidal Anti-inflammatory Drug Start: 11-27-19 IBUPROFEN 200 MG TABS 2 tablets daily IBUPROFEN [id number] Brandon Clifford MD Start: 11-03-2018 End: 11-13-2018 take 2 tablets by mouth once daily as needed Ibuprofen 200 mg tablet Discontinued 400 mg PO DAILY as needed November 03, 2018 1:00am November 13, 2018 12:27pm Start: 11-03-2018 End: 11-13-2018 take 400 mg by mouth once daily Ibuprofen Discontinued 400 MG PO DAILY November 03, 2018 1:00am November 13, 2018 12:27pm 24 hr isosorbide mononitrate 30 mg extended release oral tablet (20 sources) Nitrate Vasodilator Start: 01-05-2020 End: 03-24-2020 take 1 tablet by mouth once daily, then take 1 tablet by mouth every twenty-four hours Isosorbide Mononitrate 30 mg tablet extended release 24 hr Discontinued 30 mg PO DAILY 30 January 05, 2020 5:37pm January 15, 2020 4:16pm leucovorin 15 mg oral tablet (7 sources) Folate Analog Start: 03-31-2024 End: 01-19-2025 Leucovorin Calcium 15 mg tablet Discontinued 15 mg PO FELIZ March 31, 2024 12:00am January 19, 2025 3:03pm RA lidocaine 0.04 mg/mg medicated patch (20 sources) Antiarrhythmic, Amide Local Anesthetic Start: 09-03-2022 End: 03-31-2024 Lidocaine 4 % adhesive patch,medicated Discontinued 1 NMA TOPICAL DAILY as needed for PAIN September 03, 2022 12:00am March 31, 2024 2:29pm Start: 08-24-2022 apply 1 dose transde rmal route once daily lidocaine (SALONPAS) 4 % patch Apply 1 Patch as directed once daily. 08/24/2022 Active Comment on above: Apply 1 Patch as dir ected once daily. losartan potassium 25 mg oral tablet (20 sources) Angiotensin 2 Receptor Gideon Start: 09-11-2022 End: 05-24-2025 Losartan 25 mg tablet Discontinued 12.5 mg PO DAILY 45 3 December 08, 2024 9:43am May 24, 2025 12:37pm BLOOD PRESSURE Start: 09-11-2022 End: 10-28-2023 take 12.5 mg by mouth once daily Losartan Discontinued 12.5 MG PO DAILY 45 July 31, 2023 4:06pm October 28, 2023 12:48pm Start: 09-03-2022 End: 09-11-2022 take 1 tablet by mouth once daily Losartan 25 mg tablet Discontinued 25 mg PO DAILY September 03, 2022 12:00am September 11, 2022 3:34pm Start: 08-23-2022 take 0.5 tablet by m out once daily at lunch losartan (COZAAR) 25 mg tablet Take a half tablet by mouth daily with lunch. 30 tablet 1 08/23/2022 2:25 PM EDT 08/23/2022 Active Start: 02-07-2018 End: 09-03-2022 Losartan 50 mg tablet Discon tinued 0 .ROUTE .COMPLEX 90 3 November 14, 2021 1:33pm January 15, 2022 10:23am TAKE 1 TABLET DAILY Comment on above: Take 1 tablet by isabel once daily. Take a half tablet b y mouth daily with lunch. magnesium hydroxide 80 mg/ml oral suspension (20 sources) Start: End: take 1 mL by mouth once daily as needed for constipation Magnesium Hydroxide (Milk Of Magnesia) 400 mg/5 mL suspension Discontinued 30 mL PO DAILY as needed for CONSTIPATION September 03, 2022 12:00am March 31, 2024 2:29pm Start: 09-03-2022 take 1 mL by mouth once daily Magnesium Hydroxide (Milk Of Magnesia) 400 mg/5 mL suspension Active 30 ML PO DAILY September 03, 2022 12:00am Start: 09-03-2022 take 1 mL by mouth once daily Magnesium Hydroxide (Milk Of Magnesia) 400 mg/5 mL suspension Active 30 ML PO DAILY September 02, 2022 11:00pm Start: 08-23-2022 End: 03-16-2025 take 1 mL by mouth once daily as needed for constipation Magnesium Hydroxide (Milk Of Magnesia) 400 mg/5 mL suspension Discontinued 30 mL PO DAILY as needed for CONSTIPATION September 03, 2022 12:00am March 31, 2024 2:29pm Comment on above: Take 30 mL by mouth once daily as needed. melatonin 1 mg oral tablet (20 sources) Start: 09-03-2022 End: 01-17-2023 take 3 tablets by mouth at bedtime as needed Melatonin 1 mg tablet Discontinued 3 mg PO BEDTIME as needed September 03, 2022 12:00am January 17, 2023 11:33am Start: 09-03-2022 End: 01-17-2023 take 3 mg by mouth at bedtime Melatonin Discontinued 3 MG PO BEDTIME September 03, 2022 12:00am January 17, 2023 11:33am Start: 08-23-2022 End: 08-30-2022 take 3 tablets by mouth every twenty-four hours as needed melatonin 1 mg tablet Take 3 tablets by mouth at bedtime as needed for for insomnia. 0 08/23/2022 08/30/2022 Discontinued Start: 03-24-2020 End: 04-07-2020 take 1 tablet by mouth at bedtime as needed Melatonin 3 mg tablet Discontinued 3 mg PO BEDTIME as needed March 24, 2020 12:00am April 07, 2020 2:46pm Comment on above: Take 3 tablets by mo [facility] at bedtime as needed for for insomnia. metoprolol tartrate 50 mg oral tablet (20 sources) beta-Adrenergic Gideon Start: 03-24-2020 End: 04-07-2020 take 1 tablet by mouth three times daily Metoprolol Tartrate 50 mg tablet Discontinued 50 mg PO THREE TIMES A DAY March 24, 2020 12:00am April 07, 2020 2:47pm Start: 03-21-2020 End: 12-08-2024 take 1 tablet by mouth twice daily Metoprolol Tartrate 50 mg tablet Discontinued 50 mg PO TWICE A DAY 180 February 11, 2024 11:38am December 08, 2024 9:44am BLOOD PRESSURE Start: 02-20-2020 End: 03-24-2020 take 1 tablet by mouth twice daily Metoprolol Tartrate 25 MG tablet Discontinued 25 mg PO TWICE A DAY February 20, 2020 12:00am March 24, 2020 4:43pm Comment on above: Take 1 tablet by isabel twice daily. naproxen sodium 220 mg oral tablet (20 sources) Nonsteroidal Anti-inflammatory Drug Start: 8 End: 8 take 2 tablets by mouth once daily as needed Naproxen Sodium 220 mg tablet Discontinued 440 mg PO DAILY as needed November 03, 2018 1:00am November 13, 2018 12:28pm Start: 11-03-2018 End: 11-13-2018 take 440 mg by mouth once daily Naproxen Sodium Discontinued 440 MG PO DAILY November 03, 2018 1:00am November 13, 2018 12:28pm Nirmatrelvir-Ritonavir (1 source) Start: 11-08-2023 End: 01-23-2024 Nirmatrelvir-Ritonavir (Paxlovid) 300 mg (150 mg x 2)-100 mg tablets,dose pack Discontinued 0 PO .COMPLEX 30 0 November 08, 2023 1:00am January 23, 2024 10:54am take TWO 150 mg tablets of nirmatrelvir with ONE 100 mg tablet of ritonavir twice daily for 5 days Nirmatrelvir-Ritonavir (Paxlovid) 300 mg (150 mg x 2)-100 mg tablets,dose pack (12 sources) Start: 11-08-2023 End: 01-23-2024 Nirmatrelvir-Ritonavir (Paxlovid) 300 mg (150 mg x 2)-100 mg tablets,dose pack Discontinued 0 PO .COMPLEX 30 0 November 08, 2023 1:00am January 23, 2024 10:54am take TWO 150 mg tablets of nirmatrelvir with ONE 100 mg tablet of ritonavir twice daily for 5 days Start: 11-08-2023 End: 01-23-2024 Nirmatrelvir-Ritonavir (Paxl ovid) 300 mg (150 mg x 2)-100 mg tablets,dose pack Discontinued 0 PO .COMPLEX 30 November 08, 2023 1:00am January 23, 2024 10:54am take TWO 150 mg tablets of nirmatrelvir with ONE 100 mg tablet of ritonavir twice daily for 5 days Start: 11-08-2023 Nirmatrelvir-R itonavir (Paxlovid) 300 mg (150 mg x 2)-100 mg tablets,dose pack Active 0 PO .COMPLEX November 08, 2023 12:00am take TWO 150 mg tablets of nirmatrelvir with ONE 100 mg tablet of ritonavir twice daily for 5 days nitroglycerin 0.4 mg sublingual tablet (20 sources) Nitrate Vasodilator Start: 01-05-2020 End: 01-17-2023 Nitroglycerin 0.4 mg tablet, sublingual Discontinued 0.4 mg SL every 5 to 15 minutes as needed for chest pain 12 12January 05, 2020 5:37pm January 17, 2023 12:06pm until response; do not exceed 3 doses per episode Start: 01-05-2020 End: 01-17-2023 Nitroglycerin Discontinued 0 .4 MG SL every 5 to 15 minutes January 05, 2020 5:37pm January 17, 2023 12:06pm until response; do not exceed 3 doses per episode oxyCODONE hydrochloride 5 mg oral tablet (20 sources) Opioid Agonist Start: 04-28-2024 End: 01-19-2025 take 1 tablet by mouth every eight hours as needed for pain Oxycodone 5 mg Tablet Discontinued 5 mg PO Q8H as needed for Pain Score 4-10 9 3 0 April 28, 2024 January 19, 2025 3:03pm Stenosis of left carotid artery Occlusion and stenosis of left carotid artery Start: 09-03-2022 End: 07-25-2023 take 1 tablet by mouth every six hours as needed Oxycodone 5 mg tablet Discontinued 5 mg PO EVERY 6 HOURS as needed 0 September 03, 2022 12:00am July 25, 2023 10:19am Start: 08-23-2022 End: 08-31-2022 take 1 tablet [...] needed for up to 7 days. pantoprazole 20 mg delayed release oral tablet (20 sources) Proton Pump Inhibitor Start: 2 End: 5 take 1 tablet by mouth once daily Pantoprazole 20 mg tablet,delayed release (DR/EC) Discontinued 20 mg PO DAILY September 03, 2022 12:00am January 17, 2023 11:34am Comment on above: Take 1 tablet by isabel DAILY (6 AM) for 7 days. polyethylene glycol 3350 50977 mg powder for oral solution (20 sources) Osmotic Laxative Start: 2 End: 3 Polyethylene Glycol 3350 (Miralax) 17 gram powder in packet Discontinued 17 g PO TWICE A DAY as needed for constipation September 03, 2022 12:00am January 17, 2023 11:34am Start: 03-24-2020 End: 04-07-2020 Polyethylene Glycol 3350 (Mi ralax) 17 gram/dose powder Discontinued 17 g PO DAILY March 24, 2020 12:00am April 07, 2020 2:46pm Comment on above: Take 1 Packet by isabel twice daily as needed for constipation. Dissolve dose in 4 - 8 ounces of liquid and take as directed. pravastatin sodium 80 mg oral tablet (20 sources) HMG-CoA Reductase Inhibitor Start: 01-15-2020 End: 03-24-2020 Pravastatin 10 MG tablet Discontinued 80 mg PO DAILY January 16, 2020 12:38am March 24, 2020 4:44pm Start: 01-15-2020 End: 03-24-2020 take 80 mg by mouth once daily Pravastatin Discontinue d 80 MG PO DAILY January 16, 2020 12:38am March 24, 2020 4:44pm Start: 11-03-2018 End: 01-15-2020 take 1 tablet by mouth once daily Pravastatin 10 mg tablet Discontinued 10 mg PO DAILY 90 3 November 25, 2019 3:33pm January 16, 2020 12:38am Start: 02-07-2018 End: 09-03-2022 take 1 tablet by mouth at bedtime Pravastatin 80 mg tablet Discontinued 80 mg PO AT BEDTIME 90 4 December 06, 2021 12:50pm September 03, 2022 4:18pm Comment on above: Take 1 tablet by isabel once daily. sertraline 50 mg oral tablet (20 sources) Serotonin Reuptake Inhibitor Start: 2 End: 2 take 1 tablet by mouth once daily Sertraline 50 mg tablet Discontinued 50 mg PO DAILY January 15, 2022 1:00am July 19, 2022 9:35am vortioxetine 20 mg oral tablet (20 sources) Start: 2 End: 5 take 1 tablet by mouth once daily Vortioxetine (Trintellix) 20 mg tablet Discontinued 20 mg PO DAILY September 11, 2022 12:00am July 25, 2023 10:19am Comment on above: Take 1 tablet by isabel th once daily. Problems Active Problems Problem Classification Problem Date Documented Date Episodic/Chronic Abdominal pain (20 sources) Abdominal pain; Translations: [Unspecified abdominal pain] 08-24-2021 Episodic Aortic; peripheral; and visceral artery aneurysms (20 sources) Thoracic aortic aneurysm without rupture; Translations: [Thoracic aortic aneurysm, without rupture] Onset: 08-16-2022 08-16-2022 Chronic Cancer of bronchus; lung (15 sources) Malignant neoplasm of right upper lobe of lung; Translations: [Malignant neoplasm of upper lobe, right bronchus or lung] Onset: 12-28-2024 12-28-2024 Chronic Cancer; other respiratory and intrathoracic (2 sources) Malignant neoplasm of lower respiratory tract 03-30-2025 Chronic Coronary atherosclerosis and other heart disease (20 sources) Coronary atherosclerosis; Translations: [Atherosclerotic heart disease of crow coronary artery without angina pectoris] Onset: 12-14-2013 Chronic Comment on above: Moderate per cath 20 06. 12/31/2019: FFR in the LAD was 0.77 which is consistent with significant stenoses. 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 Coronary atherosclerosis and other heart disease (15 sources) Presence of aortocoronary bypass graft; Translations: [Aortocoronary bypass status] Onset: 02-17-2020 Episodic Diabetes mellitus with complications (20 sources) Type 2 diabetes mellitus with peripheral angiopathy; Translations: [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al angiopathy without gangrene] Onset: 08-18-2022 08-21-2022 Chronic Disorders of lipid metabolism (20 sources) Pure hypercholesterolemia; Translations: [Pure hypercholesterolemia, unspecified] Onset: 07-25-2016 Chronic E Codes: Fall (14 sources) Falling injury; Translations: [Unspecified fall, initial encounter] 04-21-2023 Episodic Essential hypertension (20 sources) Essential hypertension; Translations: [Essential (primary) hypertension] Onset: 01-17-2017 Chronic Comment on above: CONTROLLED WITH MED Genitourinary symptoms and ill-defined conditions (20 sources) Blood in urine; Translations: [Hematuria, unspecified] 08-24-2021 Episodic Hyperplasia of prostate (20 sources) Large prostate ; Translations: [Benign prostatic hyperplasia without lower urinary tract symptoms] 08-24-2021 Chronic Joint disorders and dislocations; trauma-related (20 sources) Tear of meniscus of knee; Translations: [Unspecified tear of unspecified meniscus, current injury, right knee, initial encounter] 10-28-2018 Episodic Malaise and fatigue (20 sources) Fatigue; Translations: [Other fatigue] Onset: 12-14-2013 Resolved: 08-16-2022 Episodic Nonspecific chest pain (20 sources) Chest wall pain; Translations: [Other chest pain] Onset: 12-14-2013 Resolved: 08-16-2022 03-20-2022 Episodic Occlusion or stenosis of precerebral arteries (7 sources) Left carotid artery stenosis; Translations: [Occlusion and stenosis of left carotid artery] 04-28-2024 Chronic Comment on above: CTA Neck 04/01/24: 89 % stenosis of the L ICA by NASCET with calcific shadowingCarotid Ultrasound 03/17/24: >70% L ICA stenosis with max PSV 289.9/85.9 Osteoarthritis (1 source) Unilateral primary osteoarthritis, right knee; Translations: [Unilateral primary osteoarthritis, right knee] Onset: 11-27-2018 11-27-2018 Chronic Other aftercare (1 source) Surgical follow-up; Translations: [Encounter for follow-up examination after completed treatment for conditions other than malignant neoplasm] Episodic Other circulatory disease (2 sources) Disorder of artery; Translations: [Disorder of arteries and arterioles, unspecified] 10-29-2024 Chronic Other circulatory disease (4 sources) Disorder of carotid artery; Translations: [Disorder of arteries and arterioles, unspecified] 07-06-2025 Chronic Other circulatory disease (1 source) Disorder of arteries and arterioles, unspecified; Translations: [Disorder of artery or arteriole (HCC)] Onset: 10-29-2024 Chronic Other connective tissue disease (20 sources) Pain in thumb ; Translations: [Pain in right finger(s)] 05-14-2021 Episodic Comment on above: per patient history of arthritis, autoimmune, 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 Other lower respiratory disease (20 sources) Dyspnea on exertion; Translations: [Other forms of dyspnea] Onset: 12-14-2013 Resolved: 08-16-2022 07-19-2022 Episodic Other lower respiratory disease (7 sources) Other forms of dyspnea; Translations: [Other respiratory abnormalities] Episodic Other lower respiratory disease (14 sources) Nodule of lung; Translations: [Solitary pulmonary nodule] 10-29-2024 Episodic Other lower respiratory disease (3 sources) Multiple nodules of lung; Translations: [Other nonspecific abnormal finding of lung field] 12-10-2024 Episodic Other nervous system disorders (20 sources) Peripheral nerve disease ; Translations: [Polyneuropathy, unspecified] 01-17-2020 Chronic Other nervous system disorders (7 sources) Paresthesia; Translations: [Paresthesia of skin] 04-09-2024 Episodic Other non-traumatic joint disorders (20 sources) Polyarthropathy; Translations: [Polyarthritis, unspecified] 01-02-2021 Chronic Other non-traumatic joint disorders (20 sources) Effusion of right knee joint; Translations: [Effusion, right knee] 10-28-2018 Episodic Other nutritional; endocrine; and metabolic disorders (20 sources) Obese class I; Translations: [Obesity, unspecified] Onset: 08-17-2022 08-17-2022 Chronic Other upper respiratory infections (20 sources) Upper respiratory infection; Translations: [Acute upper respiratory infection, unspecified] 08-24-2021 Episodic Residual codes; unclassified (20 sources) Obstructive sleep apnea syndrome; Translations: [Obstructive sleep apnea (adult) (pediatric)] Onset: 08-18-2022 08-21-2022 Chronic Residual codes; unclassified (17 sources) Obstructive sleep apnea (adult) (pediatric); Translations: [Obstructive sleep apnea (adult)(pediatric)] Chronic Residual codes; unclassified (20 sources) Tobacco user; Translations: [Tobacco use] Onset: 07-25-2016 08-16-2022 Episodic Residual codes; unclassified (13 sources) Tobacco use; Translations: [Tobacco use disorder] Episodic Residual codes; unclassified (18 sources) Other specified postprocedural states; Translations: [Other postprocedural status] Onset: 07-19-2022 Episodic Residual codes; unclassified (9 sources) Clouded consciousness; Translations: [Disorientation, unspecified] 03-10-2024 Episodic Residual codes; unclassified (2 sources) History of repair of ascending aorta; Translations: [Other specified postprocedural states] 10-29-2024 Episodic Rheumatoid arthritis and related disease (1 source) Rheumatoid arthritis with rheumatoid factor of unspecified site without organ or systems involvement; Translations: [Rheumatoid arthritis with rheumatoid factor of unspecified site without organ or systems involvement] Onset: 04-30-2025 Chronic Sprains and strains (20 sources) Sprain of knee; Translations: [Sprain of unspecified site of unspecified knee, initial encounter] 02-08-2018 Episodic Substance-related disorders (20 sources) Nicotine dependence; Translations: [Nicotine dependence, unspecified, uncomplicated] Onset: 08-17-2022 08-17-2022 Chronic Superficial injury; contusion (20 sources) Abrasion, back; Translations: [Abrasion of unspecified back wall of thorax, initial encounter] 04-21-2023 Episodic Thyroid disorders (19 sources) Thyroid nodule; Translations: [Nontoxic single thyroid nodule] Onset: 02-24-2025 10-30-2024 Chronic Comment on above: Patient is 69-year-o ld male, euthyroid from an endocrine standpoint, who makes consultation related to incidentally noted right-sided thyroid nodule. Patient does appear to make entirely asymptomatic from a compressive standpoint. With the large size of his thyroid nodule and the lack of symptoms it is my estimation that patient's nodule has been there for some time despite not being seen on imaging previously. I discussed the prevalence of thyroid nodules and they are triaged using the TI-RADS rating system. Hand drawing was made to illustrate the position of patient's ultrasound findings. Ultimately, extended the radiology recommendation for FNA biopsy and described the technique. Patient and his were receptive. Procedure was then undertaken uncomplicated fashion. Full details are given in the procedures section of this note. Transient cerebral ischemia (16 sources) Transient cerebral ischemia; Translations: [Transient cerebral ischemic attack, unspecified] 03-10-2024 Chronic Comment on above: 03/2024 NO DEFICITS Unclassified (1 source) Established Patient Onset: 03-05-2025 Unclassified (1 source) Dissection of thoracic aorta, unspecified part (HCC); Translations: [Dissection of thoracic aorta, unspecified part (HCC)] Onset: 08-22-2022 Unclassified (1 source) Dissection of ascending aorta (HCC); Translations: [Dissection of ascending aorta (HCC)] Onset: 08-22-2022 Viral infection (13 sources) Disease caused by 2019-nCoV; Translations: [COVID-19] 11-08-2023 Episodic Past or Other Problems Problem Classification Problem Date Documented Date Episodic/Chronic Administrative/social admission (20 sources) Patient encounter status; Translations: [Persons encountering health services in other specified circumstances] Onset: 08-20-2022 08-21-2022 Episodic Cancer of bronchus; lung (11 sources) History of malignant neoplasm of thoracic cavity structure; Translations: [Personal history of other malignant neoplasm of bronchus and lung] Onset: 03-15-2025 02-19-2025 Episodic Coagulation and hemorrhagic disorders (20 sources) Blood coagulation disorder; Translations: [Coagulation defect, unspecified] Onset: 08-18-2022 Resolved: 08-20-2022 08-20-2022 Chronic Heart valve disorders (20 sources) Systolic murmur; Translations: [Cardiac murmur, unspecified] Onset: 12-14-2013 Resolved: 08-16-2022 08-16-2022 Episodic Neoplasms of unspecified nature or uncertain behavior (6 sources) Neoplasm of lung ; Translations: [Neoplasm of unspecified behavior of respiratory system] Onset: 12-28-2024 12-28-2024 Episodic Other aftercare (1 source) Encounter for surgical aftercare following surgery on the circulatory system; Translations: [Encounter for surgical aftercare following surgery on the circulatory system] Onset: 12-09-2024 Episodic Other circulatory disease (1 source) Personal history of other diseases of the circulatory system; Translations: [S/P ascending aortic aneurysm repair] Onset: 10-29-2024 Episodic Other lower respiratory disease (20 sources) Acute pulmonary edema; Translations: [Acute pulmonary edema] Onset: 08-20-2022 Resolved: 08-21-2022 08-21-2022 Episodic Other lower respiratory disease (2 sources) Solitary pulmonary nodule; Translations: [Lung nodule] Onset: 12-28-2024 Episodic Other lower respiratory disease (1 source) Other nonspecific abnormal finding of lung field; Translations: [Lung nodules] Onset: 12-28-2024 Episodic Other nervous system disorders (20 sources) Postoperative pain ; Translations: [Other acute postprocedural pain] Onset: 08-18-2022 08-21-2022 Episodic Residual codes; unclassified (20 sources) History of cardiac catheterization; Translations: [Other specified postprocedural states] Onset: 12-31-2019 03-24-2020 Episodic Comment on above: Cath in 2005, presum ably at [facility]. 12/31/2019: FFR in the LAD was 0.77 which is consistent with significant stenoses. 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 Residual codes; unclassified (19 sources) History of great vessel repair; Translations: [Other specified postprocedural states] Onset: 07-19-2022 08-27-2022 Episodic Comment on above: Type A Aortic Dissec tion Repair (Ascending and Hemiarch Replacement 30 [employer] T Graft with reimplantation of RSVG to OM and RSVG to PDA of prior CABG)@ [facility] 08/17/22 Respiratory failure; insufficiency; arrest (adult) (20 sources) Ventilator finding; Translations: [Dependence on respirator [ventilator] status] Onset: 08-18-2022 Resolved: 08-18-2022 08-18-2022 Chronic Unclassified (1 source) Problem Unclassified (1 source) Patient encounter status 12-28-2024 Results Test Name Value Interpretation Reference Range Facility Cardiology Visit Reporton Cardiology Visit Report [facility] [address] [place] [address] OFFICE VISIT Date of Service: 09/14/25 MR#: [id number] Acct: [id number] Name: YARI LOPEZ Rep #: [id number] 2 : 1955 Provider: DAMIEN Zamudio Age/Sex: 70/M Location: [facility] [place] Status: Signed HPI HPI History of Present Illness Details: The patient is a 70-year-old male with CAD s/p CABG (2019), HTN, HLD, MISTY, and a history of type A aortic dissection repair, presenting for follow-up. He reports intermittent, non-specific chest pains that he attributes to either his lungs or post- surgical changes from prior sternotomies. He denies any chest heaviness or tightness. He also reports chronic nasal congestion and cough, which he attributes to seasonal allergies and sinus issues; he uses saline solution for symptomatic relief. He has lost some weight recently and reports that his blood pressure and blood glucose have been well controlled. He monitors his blood pressure daily. He denies any current medication needs or refills. His medical history is notable for CABG in 2019 (FRAUSTO to LAD, free ROBER to right diagonal, SVG to OM, SVG to posterior lateral branch), and a type A aortic dissection repair in 08/2022 with ascending aorta replacement and re-implantation of proximal SVG to OM and SVG to PDA. He also underwent left carotid endarterectomy in 03/2024 for high-grade carotid stenosis following an episode of probable amaurosis fugax. He follows with Dr. Huynh for vascular care and Dr. West as his PCP, whom he sees 3???4 times per year, primarily for sinus infections. Current medications include aspirin 81 mg daily, atorvastatin 80 mg daily, losartan 12.5 mg daily, and metoprolol 50 mg BID. Intake Vital Signs 09/15/24 11:10 01/19/25 14:02 09/14/25 08:11 Height 6 ft 0.05 in 6 ft 6 ft Weight: 216 lb BMI 29.2 BP 117/66 Blood Pressure Location Lt brachial Position Sitting Respiration 18 Pulse 61 Pulse Source Monitor Pulse Oximetry (%) 94 Oxygen Delivery Method room air Intake Visit Reasons: 1 Y FU Supply Assistant Required: No Accompanied by: Self Is patient in pain?: No Allergies Penicillins Allergy (Verified 09/14/25 13:05) Swelling Medications ???Medication ???Instructions ???Recorded ???Confirmed ???Type cholecalciferol (vitamin D3) 25 2,000 unit PO DAILY SUPPLEMENT 06/0609/14/25 History mcg (1,000 unit) tablet aspirin 81 mg chewable tablet 81 mg PO DAILY@0800 [facility] 0 04/07/20 09/14/25 History albuterol sulfate 90 mcg/actuation 2 puff inhalation Q6H PRN WHEEZI NG 11/21/20 09/14/25 History aerosol inhaler (Ventolin HFA) coenzyme Q10 100 mg capsule (Co 100 mg PO DAILY SUPPLEMENT 1 09/14/25 History Q-10) fluticasone fur. 200 mcg-umeclid 1 inh inhalation DAILY SHORTNESS 0 01/15/22 09/14/25 History 62.5 mcg-vilant 25 mcg OF BREATH/WHEEZING inhalat.powder (Trelegy Ellipta) fluticasone propionate 50 1 spray intranasal Q12H PRN NASAL 01/17/23 09/14/25 History mcg/actuation nasal CONGESTION spray,suspension (Flonase Allergy Relief) nitroglycerin 0.4 mg sublingual 0.4 mg sublingual Q5-15M PRN CHEST 01/17/23 09/14/25 Rx tablet PAIN #25 tabs folic acid 1 mg tablet 2 mg PO DAILY SUPPLEMENT 03/31/24 09/14/25 History metformin 500 mg tablet,extended 500 mg PO DAILY BLOOD SUGARS 03/3109/14/25 History release 24 hr hydroxychloroquine 200 mg tablet 200 mg PO BID 09/15/24 09/14/25 Hi story atorvastatin 80 mg tablet 80 mg PO QHS CHOLESTEROL #90 tabs 12/04/24 09/14/25 Rx metoprolol tartrate 50 mg tablet 50 mg PO BID BLOOD PRESSURE #180 12/08/24 09/14/25 Rx tabs aripiprazole 5 mg tablet 5 mg PO QDAY 01/19/25 09/14/25 His tory glucosamine sulfate 500 mg tablet 500 mg PO BID 01/19/25 09/14/25 H istory (Glucosamine) losartan 25 mg tablet 12.5 mg (1/2 x 25 mg) PO DAILY 06/1109/14/25 Rx BLOOD PRESSURE #45 tabs methotrexate sodium 2.5 mg tablet 18.5 mg PO SA RA 09/14/25 5 History Ejection fraction %: 55 Have you fallen in the past year?: Yes Nurse's Note: Did an EKG today bc pt has had CP, but thinks it may be his lungs. [facility] Medical History (Updated 09/14/25 @ 14:43 by Saranya QUEZADA, PA) Essential hypertension Hx of cancer of lung ( 11/2024) Carotid stenosis, left Wears glasses Anxiety History of steroid therapy Prostate disease Back pain Migraine headache Syncope Dietary restriction History of hiatal hernia Heartburn Asthma CPAP (continuous positive airway pressure) dependence Shortness of breath on exertion History of pain when walking History of stress test History of edema History of echocardiogram Cardiology follow-up encounter History of deviated nasal sept (more content not included)... Normal [facility] CT CHEST WO IVCONon 07-29-20 CT CHEST WO IVCON * * *Final Report* * * DATE OF EXAM: Jul 29 2025 3:21PM [facility] 0541 - CT CHEST WO IVCON / PROCEDURE REASON: Malignant neoplasm of unspecified part of unspecified bronchus or lung (HCC) * * * * Physician Interpretation * * * * EXAMINATION: CHEST CT WITHOUT CONTRAST CLINICAL HISTORY: Malignant neoplasm of unspecified part of unspecified bronchus or lung (HCC) Technique: Spiral CT acquisition of the chest from the thoracic inlet to the upper abdomen without contrast. MQ: CTCWO_6 CT Radiation dose: Integrated Dose-length product (DLP) for this visit = 462 mGy*cm CT Dose Reduction Employed: Automated exposure control(AEC) and iterative recon Comparison: Chest CT dated 12/28/2024 RESULT: Limitations: None. Lines, tubes, and devices: None. Lung parenchyma and airways: No new or enlarging pulmonary nodules. Decrease in size of right upper lobe peribronchovascular nodule measuring 1.4 cm on image 83, previously 2.5 cm. A bilateral upper lobe predominant nodules and additional scattered nodules including a 2 mm anterior right upper lobe nodule on image 62, 2 mm left upper lobe nodule on image 62, a 6 mm nodule along the left major fissure on image 1, a 5 mm nodule along the right major fissure on image 123, are stable. Moderate upper lung predominant centrilobular and paraseptal emphysema is present. Mild biapical scarring, likely post inflammatory. No endotracheal or central endobronchial lesion is identified. Pleural space: No pleural effusion or thickening. No pneumothorax. Lower neck, lymph nodes, and mediastinum unchanged in size of a 1.8 cm right thyroid nodule. No lymphadenopathy in the supraclavicular, axillary, mediastinal, or hilar regions. The esophagus is unremarkable. Heart, pericardium, and thoracic vessels: The thoracic aorta and main pulmonary artery are normal in caliber. The cardiac chambers are normal in size. Status post CABG surgery with severe crow coronary artery atherosclerotic calcifications are noted, although the study is not optimized for coronary assessment. No pericardial effusion or thickening. Mild atherosclerotic calcifications of the thoracic aorta and arch vessels. Bones and soft tissues: Degenerative changes are seen. Median sternotomy. Upper abdomen: No acute abnormality in the imaged upper abdomen. Localizer images: No additional findings. IMPRESSION: 1. Decreased in size of right upper lobe nodule following radiation treatment. Additional bilateral lung nodules are stable. 2. No thoracic lymphadenopathy. [employer] Developer: SILVESTRE Transcribe Date/Time: Jul 29 2025 3:58P Dictated by : JULIO OLIVAS MD This examination was interpreted and the report reviewed and electronically signed by: JULIO OLIVAS MD on Jul 29 2025 4:54PM EST [id number] Normal [facility] CT Chest WO contraston 07-29 IMPRESSION: 1. Decreased in size of right upper lobe nodule following radiation treatment. Additional bilateral lung nodules are stable. 2. No thoracic lymphadenopathy. [employer] Developer: [facility] CENTER[facility]ede Transcribe Date/Time: Jul 29 2025 3:58P Dictated by : JULIO OLIVAS MD This examination was interpreted and the report reviewed and electronically signed by: JULIO OLIVAS MD on Jul 29 2025 4:54PM EST DIVISION OF RADIOLOGY * * *Final Report* * * DATE OF EXAM: Jul 29 2025 3:21PM [facility] 0541 - CT CHEST WO IVCON / PROCEDURE REASON: Malignant neoplasm of unspecified part of unspecified bronchus or lung (HCC) * * * * Physician Interpretation * * * * EXAMINATION: CHEST CT WITHOUT CONTRAST CLINICAL HISTORY: Malignant neoplasm of unspecified part of unspecified bronchus or lung (HCC) Technique: Spiral CT acquisition of the chest from the thoracic inlet to the upper abdomen without contrast. MQ: CTCWO_6 CT Radiation dose: Integrated Dose-length product (DLP) for this visit = 462 mGy*cm CT Dose Reduction Employed: Automated exposure control(AEC) and iterative recon Comparison: Chest CT dated 12/28/2024 RESULT: Limitations: None. Lines, tubes, and devices: None. Lung parenchyma and airways: No new or enlarging pulmonary nodules. Decrease in size of right upper lobe peribronchovascular nodule measuring 1.4 cm on image 83, previously 2.5 cm. A bilateral upper lobe predominant nodules and additional scattered nodules including a 2 mm anterior right upper lobe nodule on image 62, 2 mm left upper lobe nodule on image 62, a 6 mm nodule along the left major fissure on image 1, a 5 mm nodule along the right major fissure on image 123, are stable. Moderate upper lung predominant centrilobular and paraseptal emphysema is present. Mild biapical scarring, likely post inflammatory. No endotracheal or central endobronchial lesion is identified. Pleural space: No pleural effusion or thickening. No pneumothorax. Lower neck, lymph nodes, and mediastinum unchanged in size of a 1.8 cm right thyroid nodule. No lymphadenopathy in the supraclavicular, axillary, mediastinal, or hilar regions. The esophagus is unremarkable. Heart, pericardium, and thoracic vessels: The thoracic aorta and main pulmonary artery are normal in caliber. The cardiac chambers are normal in size. Status post CABG surgery with severe crow coronary artery atherosclerotic calcifications are noted, although the study is not optimized for coronary assessment. No pericardial effusion or thickening. Mild atherosclerotic calcifications of the thoracic aorta and arch vessels. Bones and soft tissues: Degenerative changes are seen. Median sternotomy. Upper abdomen: No acute abnormality in the imaged upper abdomen. Localizer images: No additional findings. DIVISION OF RADIOLOGY Provider, [facility] - 07/29/2025 * * *Final Report* * * DATE OF EXAM: Jul 29 2025 3:21PM [facility] 0541 - CT CHEST WO IVCON / PROCEDURE REASON: Malignant neoplasm of unspecified part of unspecified bronchus or lung (HCC) * * * * Physician Interpretation * * * * EXAMINATION: CHEST CT WITHOUT CONTRAST CLINICAL HISTORY: Malignant neoplasm of unspecified part of unspecified bronchus or lung (HCC) Technique: Spiral CT acquisition of the chest from the thoracic inlet to the upper abdomen without contrast. MQ: CTCWO_6 CT Radiation dose: Integrated Dose-length product (DLP) for this visit = 462 mGy*cm CT Dose Reduction Employed: Automated exposure control(AEC) and iterative recon Comparison: Chest CT dated 12/28/2024 RESULT: Limitations: None. Lines, tubes, and devices: None. Lung parenchyma and airways: No new or enlarging pulmonary nodules. Decrease in size of right upper lobe peribronchovascular nodule measuring 1.4 cm on image 83, previously 2.5 cm. A bilateral upper lobe predominant nodules and additional scattered nodules including a 2 mm anterior right upper lobe nodule on image 62, 2 mm left upper lobe nodule on image 62, a 6 mm nodule along the left major fissure on image 1, a 5 mm nodule along the right major fissure on image 123, are stable. Moderate upper lung predominant centrilobular and paraseptal emphysema is present. Mild biapical scarring, likely post inflammatory. No endotracheal or central endobronchial lesion is identified. Pleural space: No pleural effusion or thickening. No pneumothorax. Lower neck, lymph nodes, and mediastinum unchanged in size of a 1.8 cm right thyroid nodule. No lymphadenopathy in the supraclavicular, axillary, mediastinal, or hilar regions. The esophagus is unremarkable. Heart, pericardium, and thoracic vessels: The thoracic aorta and main pulmonary artery are normal in caliber. The cardiac chambers are normal in size. Status post CABG surgery with severe crow coronary artery atherosclerotic calcifications are noted, although the study is not optimized for coronary assessment. No pericardial effusion or thickening. Mild atherosclerotic calcifications of the thoracic aorta and arch vessels. Bones and soft tissues: Degenerative changes are seen. Median sternotomy. Upper abdomen: No acute abnormality in the imaged upper abdomen. Localizer images: No additional findings. IMPRESSION IMPRESSION: 1. Decreased in size of right upper lobe nodule following radiation treatment. Additional bilateral lung nodules are stable. 2. No thoracic lymphadenopathy. [employer] Developer: PSCB Transcribe Date/Time: Jul 29 2025 3:58P Dictated by : JULIO OLIVAS MD This examination was interpreted and the report reviewed and electronically signed by: JULIO OLIVAS MD on Jul 29 2025 4:54PM EST [facility] Radiology Study observation (narrative) [facility] CT Chest WO contrastOrdered By: Ccf Provider on 07-29-2025 [facility] Absolute lymphocyte countOrd ered By: Martha Kim on 07-20-2025 Lymphocytes Auto (Unsp spec) [#/Vol] 1.03 10*3/uL 0.83-4.51 [facility] Absolute neutrophil countOrd ered By: Martha Kim on 07-20-2025 Neutrophils (Bld) [#/Vol] 8.0 10*3/uL High 2.0-7.7 [facility] Anion gap in Serum or Plasma Ordered By: Martha Kim on 07-20-2025 Anion gap [Moles/Vol] 12 mmol/L 5-15 [facility] Automated lymphocyte count a s percentage of total leukocytesOrdered By: Martha Kim on 07-20-2025 Lymphocytes/100 WBC Auto (Unsp spec) 10.5 % Low 19-41 [facility] BUN/creatinine ratioOrdered By: Marthalucy Kim on 07-20-2025 Urea nitrogen/Creatinine [Mass ratio] 20.1 mg/mg High 10-20 [facility] Basophil percentageOrdered B y: Martha Kim on 07-20-2025 Basophils/100 WBC (Bld) 0.7 % 0-1 [facility] Bilirubin, totalOrdered By: Martha Kim on 07-20-2025 Bilirubin [Mass/Vol] 0.37 mg/dL 0.00-1.30 [facility] CBC W/Diff, Automatedon Absolute Lymph 1.03 X10 3/uL Normal 0.83-4.51 [facility] Comment on above: Performed By: #### L 100.0100, L500.4100, L500.4050 ####[facility] [address] [place], [address] Absolute Neut 8.0 X10 3/uL High 2.0-7.7 [facility] Comment on above: Performed By: #### L 100.0100, L500.4100, L500.4050 ####[facility] [address] [place], [address] Basophils/100 WBC (Bld) 0.7 % Normal 0-1 [facility] Comment on above: Performed By: #### L 100.0100, L500.4100, L500.4050 ####[facility] [address] [place], [address] Eosinophils/100 WBC (Bld) 1.9 % Normal 0-5 [facility] Comment on above: Performed By: #### L 100.0100, L500.4100, L500.4050 ####[facility] [address] [place], [address] Erythrocyte distribution width (RBC) [Ratio] 14.7 % High 11.6-14.6 [facility] Comment on above: Performed By: #### L 100.0100, L500.4100, L500.4050 ####[facility] [address] [place], [address] Hematocrit (Bld) [Volume fraction] 34.6 % Low 40-54 [facility] Comment on above: Performed By: #### L 100.0100, L500.4100, L500.4050 ####[facility] [address] [place], [address] Hemoglobin (Bld) [Mass/Vol] 11.8 g/dL Low 13.0-16.5 [facility] Comment on above: Performed By: #### L 100.0100, L500.4100, L500.4050 ####[facility] [address] [place], [address] IG% 0.400 Normal 0.0-0.9 [facility] Comment on above: Result Comment: IG% - Immature Granulocytes (promyelocytes, myelocytes and metamyelocytes) > 1% indicates that a LEFT SHIFT is Present. Performed By: #### L 100.0100, L500.4100, L500.4050 ####[facility] [address] [place], [address] Lymphocytes/100 WBC (Bld) 10.5 % Low 19-41 [facility] Comment on above: Performed By: #### L 100.0100, L500.4100, L500.4050 ####[facility] [address] [place], [address] MCH (RBC) [Entitic mass] 33.4 pg High 27.0-32.0 [facility] Comment on above: Performed By: #### L 100.0100, L500.4100, L500.4050 ####[facility] [address] [place], [address] MCHC (RBC) [Mass/Vol] 34.1 g/dL Normal 32-36 [facility] Comment on above: Performed By: #### L 100.0100, L500.4100, L500.4050 ####[facility] [address] [place], [address] MCV (RBC) [Entitic vol] 98.0 fL High 80-[address] [facility] Comment on above: Performed By: #### L 100.0100, L500.4100, L500.4050 ####[facility] [address] [place], [address] Monocytes/100 WBC (Bld) 5.3 % Normal 0-[address] [facility] Comment on above: Performed By: #### L 100.0100, L500.4100, L500.4050 ####[facility] [address] [place], [address] Neutrophils/100 WBC (Bld) 81.2 % High 47-70 [facility] Comment on above: Performed By: #### L 100.0100, L500.4100, L500.4050 ####[facility] [address] [place], [address] Nucleated RBC (Bld) [#/Vol] 0 10*3/uL Normal 0-5 [facility] Comment on above: Performed By: #### L 100.0100, L500.4100, L500.4050 ####[facility] [address] [place], [address] Platelet mean volume (Bld) [Entitic vol] 10.3 fL Normal 6.2-12.0 [facility] Comment on above: Performed By: #### L 100.0100, L500.4100, L500.4050 ####[facility] [address] [place], [address] Platelets (Bld) [#/Vol] 227 10*3/uL Normal 150-450 [facility] Comment on above: Performed By: #### L 100.0100, L500.4100, L500.4050 ####[facility] [address] [place], [address] RBC (Bld) [#/Vol] 3.53 10*6/uL Low 4.6-6.2 [facility] Comment on above: Performed By: #### L 100.0100, L500.4100, L500.4050 ####[facility] [address] [place], [address] RDW SD 52.6 fl High 35.1-43.9 [facility] Comment on above: Performed By: #### L 100.0100, L500.4100, L500.4050 ####[facility] [address] [place], [address] WBC (Bld) [#/Vol] 9.8 10*3/uL Normal 4.4-11.0 [facility] Comment on above: Performed By: #### L 100.0100, L500.4100, L500.4050 ####[facility] [address] [place], [address] Calculated very low density lipoprotein (VLDL) cholesterol measurementOrdered By: Martha Kim on 07-20-2025 Calculated very low density lipoprotein (VLDL) cholesterol measurement 20 mg/dL 5-40 [facility] Carbon dioxide, total [Moles /volume] in Central venous bloodOrdered By: Martha Kim on 07-20-2025 CO2 [Moles/Vol] 20.5 mmol/L Low 21.0-32.0 [facility] Chloride assayOrdered By: Damien Kim on 07-20-2025 Chloride [Moles/Vol] 108 mmol/L 98-108 [facility] Comprehensive Metabolic Prof ilon 07-20-2025 Albumin [Mass/Vol] 4.3 g/dL Normal 3.4-4.8 [facility] Comment on above: Performed By: #### L 100.0100, L500.4100, L500.4050 ####[facility] [address] [place], [address] Albumin/Globulin [Mass ratio] 2.0 {ratio} Normal 0.9-2.4 [facility] Comment on above: Performed By: #### L 100.0100, L500.4100, L500.4050 ####[facility] [address] [place], [address] ALK PHOS 91 U/L Normal 40-129 [facility] Comment on above: Performed By: #### L 100.0100, L500.4100, L500.4050 ####[facility] [address] [place], [address] ALT [Catalytic activity/Vol] 22 U/L Normal <=46 [facility] Comment on above: Performed By: #### L 100.0100, L500.4100, L500.4050 ####[facility] [address] [place], [address] AST [Catalytic activity/Vol] 18 U/L Normal <=37 [facility] Comment on above: Performed By: #### L 100.0100, L500.4100, L500.4050 ####[facility] [facility] [address] [place], [address] Bilirubin [Mass/Vol] 0.37 mg/dL Normal 0.00-1.30 [facility] Comment on above: Performed By: #### L 100.0100, L500.4100, L500.4050 ####[facility] [address] [place], [address] BUN/CRE 20.1 RATIO High 10-20 [facility] Comment on above: Performed By: #### L 100.0100, L500.4100, L500.4050 ####[facility] [address] [place], [address] Calcium [Mass/Vol] 9.7 mg/dL Normal 7.6-11.0 [facility] Comment on above: Performed By: #### L 100.0100, L500.4100, L500.4050 ####[facility] [address] [place], [address] Chloride [Moles/Vol] 108 mmol/L Normal 98-108 [facility] Comment on above: Performed By: #### L 100.0100, L500.4100, L500.4050 ####[facility] [address] [place], [address] CO2 [Moles/Vol] 20.5 mmol/L Low 21.0-32.0 [facility] Comment on above: Performed By: #### L 100.0100, L500.4100, L500.4050 ####[facility] [address] [place], [address] Creatinine [Mass/Vol] 1.01 mg/dL Normal 0.70-1.20 [facility] Comment on above: Performed By: #### L 100.0100, L500.4100, L500.4050 ####[facility] [address] [place], [address] GAP 12 Normal 5-15 [facility] Comment on above: Performed By: #### L 100.0100, L500.4100, L500.4050 ####[facility] [address] [place], [address] GFR/1.73 sq M.predicted among non-blacks MDRD (S/P/Bld) [Vol rate/Area] 81 mL/min/{1.73_m2} Normal >60 [facility] Comment on above: Result Comment: mL/m in/1.73m2 CKD-EPI Creatinine Equation (2020) Performed By: #### L 100.0100, L500.4100, L500.4050 ####[facility] [address] [place], [address] Globulin (S) [Mass/Vol] 2.1 g/dL Low 2.2-4.[address] [facility] Comment on above: Performed By: #### L 100.0100, L500.4100, L500.4050 ####[facility] [address] [place], [address] Glucose [Mass/Vol] 117 mg/dL High 70-99 [facility] Comment on above: Performed By: #### L 100.0100, L500.4100, L500.4050 ####[facility] [address] [place], [address] Potassium [Moles/Vol] 4.0 mmol/L Normal 3.3-5.1 [facility] Comment on above: Performed By: #### L 100.0100, L500.4100, L500.4050 ####[facility] [address] [place], [address] Sodium [Moles/Vol] 140 mmol/L Normal 133-145 [facility] Comment on above: Performed By: #### L 100.0100, L500.4100, L500.4050 ####[facility] [address] [place], [address] T PROT 6.5 g/dL Normal 5.9-8.4 [facility] Comment on above: Performed By: #### L 100.0100, L500.4100, L500.4050 ####[facility] [address] [place], [address] Urea nitrogen [Mass/Vol] 20 mg/dL High 4-19 [facility] Comment on above: Performed By: #### L 100.0100, L500.4100, L500.4050 ####[facility] [address] [place], [address] Eosinophil percentageOrdered By: Martha Kim on 07-20-2025 Eosinophils/100 WBC (Bld) 1.9 % 0-5 [facility] Erythrocyte distribution wid th ratioOrdered By: [facility] Julio on 07-20-2025 Erythrocyte distribution width (RBC) [Ratio] 14.7 % High 11.6-14.6 [facility] Erythrocyte distribution wid th standard deviationOrdered By: Martha Kim on 07-20-2025 Erythrocyte distribution width (RBC) [Ratio] 52.6 fl High 35.1-43.9 [facility] Glomerular filtration rate ( GFR) estimation/1.73 sq m using serum, plasma, or whole bOrdered By: Martha Kim on 07-20-2025 GFR/1.73 sq M.predicted among non-blacks MDRD (S/P/Bld) [Vol rate/Area] 81 mL/min/{1.73_m2} >60 [facility] Comment on above: mL/min/1.73m2 CKD-EP I Creatinine Equation (2020) Hematocrit Auto (Bld) [Volum e fraction]Ordered By: Martha Kim on 07-20-2025 Hematocrit (Bld) [Volume fraction] 34.6 % Low 40-54 [facility] Hemoglobin measurementOrdere d By: Martha Kim on 07-20-2025 Hemoglobin (Bld) [Mass/Vol] 11.8 g/dL Low 13.0-16.5 [facility] Immature granulocytes/100 WB C Auto (Bld)Ordered By: Martha Kim on 07-20-2025 Immature granulocytes/100 WBC (Bld) 0.400 % 0.0-0.9 [facility] Comment on above: IG% - Immature Granu locytes (promyelocytes, myelocytes and metamyelocytes) > 1% indicates that a LEFT SHIFT is Present. LDL calc ser/plasOrdered By: Martha Kim on 07-20-2025 Cholesterol in LDL [Mass/Vol] 29 mg/dL [facility] Comment on above: Owwyiesqli=311-147 m g/dL & Higher Xays=913 mg/dL or greaterFriedwald Equation for LDL-C Laboratory - Chemistry and C hemistry - challengeOrdered By: Martha Kim on 07-20-2025 AST [Catalytic activity/Vol] 18 U/L <38 [facility] Lipid Profileon 07-20-2025 CHOL:HDL 2.01 Normal [facility] Comment on above: Performed By: #### L 100.0100, L500.4100, L500.4050 ####[facility] [address] [facility] [address] [place], [place], [phone] Cholesterol [Mass/Vol] 95 mg/dL Normal <=200 [facility] Comment on above: Result Comment: Chol esterol level, Desirable <200 mg/dL Borderline high cholesterol 200-239 mg/dL High cholesterol >=240 mg/dL Recommendations of the NCEP Adult Treatment Panel for the following risk-cutoff thresholds for the [place] population. Performed By: #### L 100.0100, L500.4100, L500.4050 ####[facility] [address] [facility] [address] [place], [place], [phone] Cholesterol in HDL [Mass/Vol] 47 mg/dL Normal [facility] Comment on above: Result Comment: Delfina onal Cholesterol Education Program (NCEP) guidelines: <40 mg/dL: Low HDL-cholesterol (major risk factor for CHD) >= 60 mg/dL: High HDL-cholesterol (negative risk factor for CHD) HDL-cholesterol is affected by a number of factors, e.g. smoking, exercise, hormones, sex and age. Performed By: #### L 100.0100, L500.4100, L500.4050 ####[facility] [address] [place], [address] Cholesterol in LDL [Mass/Vol] 29 mg/dL Normal [facility] Comment on above: Result Comment: Bord hgrdit=083-623 mg/dL Higher Rpbq=066 mg/dL or greater Friedwald Equation for LDL-C Performed By: #### L 100.0100, L500.4100, L500.4050 ####[facility] [address] [place], [address] Cholesterol in VLDL [Mass/Vol] 20 mg/dL Normal 5-40 [facility] Comment on above: Performed By: #### L 100.0100, L500.4100, L500.4050 ####[facility] [address] [place], [address] Triglyceride [Mass/Vol] 98 mg/dL Normal [facility] Comment on above: Result Comment: The drugs N-Acetylcysteine and Metamizole may falsely depress this assay. Normal range: <150 mg/dL Borderline High: 150-199 mg/dL High: 200-499 mg/dL Very High: >500 mg/dL Performed By: #### L 100.0100, L500.4100, L500.4050 ####[facility] [address] [place], [address] MCV (mean corpuscular volume ) determinationOrdered By: Martha Kim on 07-20-2025 MCV (RBC) [Entitic vol] 98.0 fL High 80-94 [facility] Mean corpuscular hemoglobin (MCH) determinationOrdered By: Martha Kim on 07-20-2025 MCH (RBC) [Entitic mass] 33.4 pg High 27.0-32.0 [facility] Mean corpuscular hemoglobin concentration (MCHC) determinationOrdered By: Martha Kim on 07-20-2025 MCHC (RBC) [Mass/Vol] 34.1 g/dL 32-36 [facility] Mean platelet volume determi nationOrdered By: Martha Kim on 07-20-2025 Platelet mean volume (Bld) [Entitic vol] 10.3 fL 6.2-12.0 [facility] Monocyte percentageOrdered B y: Martha Kim on 07-20-2025 Monocytes/100 WBC (Bld) 5.3 % 0-10 [facility] Neutrophil percentageOrdered By: Martha Kim on 07-20-2025 Neutrophils/100 WBC (Bld) 81.2 % High 47-70 [facility] Nucleated red blood cell per centageOrdered By: Martha Kim on 07-20-2025 Nucleated RBC/100 WBC (Bld) [Ratio] 0 % 0-5 [facility] Platelet countOrdered By: Damien Kim on 07-20-2025 Platelets (Bld) [#/Vol] 227 10*3/uL 150-450 [facility] Potassium measurement (mass/ volume)Ordered By: Martha Kim on 07-20-2025 Potassium (Unsp spec) [Mass/Vol] 4.0 mmol/L 3.3-5.1 [facility] RBC Auto (Bld) [#/Vol]Ordere d By: Martha Kim on 07-20-2025 RBC (Bld) [#/Vol] 3.53 10*6/uL Low 4.6-6.2 [facility] Screening total cholesterol/ high density lipoprotein (HDL) cholesterol ratioOrdered By: Martha Kim on 07-20-2025 Cholesterol.total/Tammy sterol in HDL [Mass ratio] 2.01 {ratio} [facility] Serum creatinine measurement (mass/volume)Ordered By: Martha Kim on 07-20-2025 Creatinine [Mass/Vol] 1.01 mg/dL 0.70-1.20 [facility] Serum globulin measurementOr dered By: Martha Kim on 07-20-2025 Globulin (S) [Mass/Vol] 2.1 g/dL Low 2.2-4.2 [facility] Serum glucose measurement (m ass/volume)Ordered By: Martha Kim on 07-20-2025 Glucose [Mass/Vol] 117 mg/dL High 70-99 [facility] Serum or plasma alanine overton otransferase (ALT) measurementOrdered By: Martha Kim on 07-20-2025 ALT [Catalytic activity/Vol] 22 U/L <47 [facility] Serum or plasma albumin camilo urement (mass/volume)Ordered By: Martha Kim on 07-20-2025 Albumin [Mass/Vol] 4.3 g/dL 3.4-4.8 [facility] Serum or plasma albumin/glob ulin mass ratioOrdered By: Martha Kim on 07-20-2025 Albumin/Globulin [Mass ratio] 2.0 {ratio} 0.9-2.4 [facility] Serum or plasma alkaline balaji sphatase measurementOrdered By: Martha Kim on 07-20-2025 ALP [Catalytic activity/Vol] 91 U/L 40-129 [facility] Serum or plasma calcium camilo urement (mass/volume)Ordered By: Martha Kim on 07-20-2025 Calcium [Mass/Vol] 9.7 mg/dL 7.6-11.0 [facility] Serum or plasma cholesterol in HDL measurement (mass/volume)Ordered By: Martha Kim on 07-20-2025 Cholesterol in HDL [Mass/Vol] 47 mg/dL >40 [facility] Comment on above: National Cholesterol Education Program (NCEP) guidelines:<40 mg/dL: Low HDL-cholesterol (major risk factor for CHD)>= 60 mg/dL: High HDL-cholesterol (negative risk factor for CHD)HDL-cholesterol is affected by a number of factors, e.g. smoking, exercise, hormones, sex and age. Serum or plasma cholesterol measurement (mass/volume)Ordered By: Martha Kim on 07-20-2025 Cholesterol [Mass/Vol] 95 mg/dL <201 [facility] Comment on above: Cholesterol level, D esirable <200 mg/dLBorderline high cholesterol 200-239 mg/dLHigh cholesterol >=240 mg/dLRecommendations of the NCEP Adult Treatment Panel for the following risk-cutoff thresholds for the [place] population. Serum or plasma urea nitroge n measurement (mass/volume)Ordered By: Martha Kim on 07-20-2025 Urea nitrogen [Mass/Vol] 20 mg/dL High 4-19 [facility] Sodium levelOrdered By: Laquita Kim on 07-20-2025 Sodium [Moles/Vol] 140 mmol/L 133-145 [facility] Total proteinOrdered By: Jude Kim on 07-20-2025 Protein [Mass/Vol] 6.5 g/dL 5.9-8.4 [facility] Triglycerides measurementOrd ered By: Martha Kim on 07-20-2025 Triglyceride [Mass/Vol] 98 mg/dL <199 [facility] Comment on above: The drugs N-Acetylcy steine and Metamizole may falsely depress this assay. Normal range: <150 mg/dLBorderline High: 150-199 mg/dLHigh: 200-499 mg/dLVery High: >500 mg/dL White blood cell (WBC) count Ordered By: Martha Kim on 07-20-2025 WBC (Bld) [#/Vol] 9.8 10*3/uL 4.4-11.0 [facility] MR/BMSOrion 07-06-2025 MR/BMSKENDY [facility] [address] [facility] [address] [place] [address] OFFICE VISIT Date of Service: 07/06/25 MR#: [id number] Acct: [id number] Name: YARI LOPEZ Rep #: [id number] 1 : 1955 Provider: DAMIEN Bird Age/Sex: 70/M Location: [facility] Status: Signed Intake Vital Signs 01/19/25 14:02 07/06/25 08:42 Height 6 ft Weight: 225 lb BP 142/69 H Blood Pressure Location Lt brachial Position Sitting Respiration 14 Pulse 51 L Pulse Source Monitor Temp 97.5 F L Temp Source Temporal Pulse Oximetry (%) 96 Oxygen Delivery Method room air Intake Visit Reasons: 1 Y FU Is patient in pain?: No Allergies Penicillins Allergy (Verified 07/06/25 08:44) Swelling Medications ???Medication ???Instructions ???Recorded ???Confirmed ???Type cholecalciferol (vitamin D3) 25 2,000 unit PO DAILY SUPPLEMENT 06/0607/06/25 History mcg (1,000 unit) tablet aspirin 81 mg chewable tablet 81 mg PO DAILY@0800 [facility] 0 04/07/20 07/06/25 History albuterol sulfate 90 mcg/actuation 2 puff inhalation Q6H PRN WHEEZI NG 11/21/20 07/06/25 History aerosol inhaler (Ventolin HFA) coenzyme Q10 100 mg capsule (Co 100 mg PO DAILY SUPPLEMENT 1 07/06/25 History Q-10) fluticasone fur. 200 mcg-umeclid 1 inh inhalation DAILY SHORTNESS 0 01/15/22 07/06/25 History 62.5 mcg-vilant 25 mcg OF BREATH/WHEEZING inhalat.powder (Trelegy Ellipta) fluticasone propionate 50 1 spray intranasal Q12H PRN NASAL 01/17/23 07/06/25 History mcg/actuation nasal CONGESTION spray,suspension (Flonase Allergy Relief) nitroglycerin 0.4 mg sublingual 0.4 mg sublingual Q5-15M PRN CHEST 01/17/23 07/06/25 Rx tablet PAIN #25 tabs methotrexate sodium 2.5 mg tablet 20 mg PO SA RA 01/23/24 07/06/25 History tramadol 50 mg tablet 50 mg PO TID PRN SEVERE HIP PAIN 0 01/23/24 07/06/25 History folic acid 1 mg tablet 2 mg PO DAILY SUPPLEMENT 03/31/24 07/06/25 History metformin 500 mg tablet,extended 500 mg PO DAILY BLOOD SUGARS 03/3107/06/25 History release 24 hr multivitamin with minerals-folic 0.5 tab PO DAILY HEALTH MAINTENANC E 03/31/24 07/06/25 History acid 80 mcg chewable tablet (Centrum Adult 50 Plus) hydroxychloroquine 200 mg tablet 200 mg PO BID 09/15/24 07/06/25 Hi story atorvastatin 80 mg tablet 80 mg PO QHS CHOLESTEROL #90 tabs 12/04/24 07/06/25 Rx metoprolol tartrate 50 mg tablet 50 mg PO BID BLOOD PRESSURE #180 12/08/24 07/06/25 Rx tabs aripiprazole 5 mg tablet 5 mg PO QDAY 01/19/25 07/06/25 His tory glucosamine sulfate 500 mg tablet 500 mg PO BID 01/19/25 07/06/25 H istory (Glucosamine) losartan 25 mg tablet 12.5 mg (1/2 x 25 mg) PO DAILY 06/1107/06/25 Rx BLOOD PRESSURE #45 tabs Have you fallen in the past year?: No PFSH Medical History (Updated 07/06/25 @ 08:42 by Janae Smith) Hx of cancer of lung ( 11/2024) Carotid stenosis, left Wears glasses Anxiety History of steroid therapy Prostate disease Back pain Migraine headache Syncope Dietary restriction History of hiatal hernia Heartburn Asthma CPAP (continuous positive airway pressure) dependence Shortness of breath on exertion History of pain when walking History of stress test History of edema History of echocardiogram Cardiology follow-up encounter History of deviated nasal septum Depression Smoker Rheumatoid arthritis Brain TIA TIA (transient ischemic attack) Arthritis Diabetes Thoracic aortic aneurysm without rupture Pure hypercholesterolemia Essential hypertension IBS (irritable bowel syndrome) Atherosclerotic heart disease of crow coronary artery without angina pectoris Tobacco abuse Surgical History S/P chest tube placement History of left-sided carotid endarterectomy Status post aortic dissection repair ( 08/17/22) History of coronary artery bypass surgery ( 03/08/20) History of left heart catheterization (12/31/19) History of foot surgery History of hernia repair Family History Father Heart disease CAD (coronary artery disease) Hypertension Mother Heart disease CAD (coronary artery disease) Hypertension Social History (Updated 07/06/25 @ 08:41 by Janae Smith) household members: spouse Smoking Status: Former smoker Tobacco: How many years used: 56 quit status: considering quitting alcohol intake: former details: Currently reports 1-2 beers/week, prior had been heavier. substance use type: does not use HPI HPI HPI: YARI LOPEZ, is a 70 M who presents to the office today for routine 1 year follow-up of his carotid disease s/p L CEA 04/2024. Last carotid duplex 10/2024 showed no (more content not included)... Normal [facility] CNNURSEon 07-02-2025 [facility] Nurse Visit (CARTMN) BLOSSOMYARI KENNEDY ([id number]) 1955 M Date Time Provider Department 07/02/25 7:00 AM RESEARCH NURSE YADIRA TAVAREZ During your visit today, we recorded the following information about you: Kyung Diamond, Research Coordinator 07/02/2025 1:01 PM Signed IRB# [id number] Comparing the Effectiveness of Surgery versus Stereotactic Body Radiation Therapy for Stage I Non-Small Cell Lung Cancer PI: Dr. Elliot Lyman I telephoned the patient regarding the outstanding questionnaire assessments related to the 1 Month follow-up time point for the SORT Study that he had on 05/12/2025. I informed him that the PROMIS surveys were sent via email today. Patient states he will look for the survey invitation in his email when he gets home from work today. Window for 1 Month time point is 05/04/2025 - 08/11/2025. House Designer Kyung Diamond Pager #[phone] Referring Provider: KAYLENE FELIZ [[id number]] Allergies As of Date: 07/02/2025 Noted Allergy Reaction PENICILLINS 12/26/2010 7 - Swelling Date Reviewed: 03/25/2025 Reviewed by: Yin Dunn, ELIEZER - Fully Assessed Reason for Visit: Research F/U [[id number]] Cmt: IRB# [id number] Comparing the Effectiveness of Surgery versus Stereotactic Body Radiation Therapy for Stage I Non-Small Cell Lung Cancer PI: Dr. Elliot Lyman Primary Visit Diagnosis:Research study patient [Z00.6] Prescriptions as of 07/02/2025 - predniSONE (DELTASONE) 10 mg tablet Take 10 mg by mouth once daily. - methotrexate 2.5 mg tablet Take 2.5 mg by mouth every Saturday. 5 tablets 1x a week on Saturdays - folic acid 1 mg tablet Take 1 mg by mouth once daily. - losartan (COZAAR) 25 mg tablet Take [...] 1 Patch as directed once daily. - metoprolol tartrate, short acting, (LOPRESSOR) 50 mg tablet Take 1 tablet by mouth twice daily. - acetaminophen (TYLENOL) 500 mg tablet Take 2 tablets by mouth every 6 hours as needed for pain. No more than 4000 mg total for a 24 hours window. Thanks. - polyethylene glycol 3350 (MIRALAX, GLYCOLAX) 17 [...] once daily. Problem List As Of Date 07/02/2025 Noted Resolved Coronary arteriosclerosis in crow artery [I25*12/14/2013 Chest discomfort [R07.89] 12/14/2013 08/16/2022 Heart murmur, systolic [R01.1] 12/14/2013 08/16/2022 SOB (shortness of breath) on exertion [R06.02] 12/14/2013 08/16/2022 Fatigue [R53.83] 12/14/2013 08/16/2022 Hyperlipidemia LDL goal <70 [E78.5] 07/25/2016 Tobacco abuse [Z72.0] 07/25/2016 Essential hypertension [I10] 01/17/2017 S/P CABG x 4 [Z95.1] 03/10/2020 Aortic dissection (HCC) [I71.00] 08/16/2022 Nicotine use disorder, F17.2 [F17.200] 08/17/2022 Obesity, Class I, BMI 30-34.9 [E66.811] 08/17/2022 On mechanically assisted ventilation (HCC) [Z99*08/18/2022 08/18/2022 CAD (coronary artery disease) [I25.10] 08/18/2022 Postoperative pain [G89.18] 08/18/2022 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/18/2022 Coagulopathy (HCC) [D68.9] 08/18/2022 08/20/2022 MISTY (obstructive sleep apnea) [G47.33] 08/18/2022 Pulmonary edema, acute (HCC) [J81.0] 08/20/2022 08/21/2022 Encounter for support and coordination of trans*08/20/2022 Encounter Status:Closed by KYUNG DIAMOND [facility] (CARTMN[facility] YARI LOPEZ ([id number]) 1955 M Date Time Provider Department 05/12/25 7:00 AM RESEARCH NURSE YADIRA TAVAREZ During your visit today, we recorded the following information about you: Camila Leger 05/12/2025 1:22 PM Signed IRB# [id number] Comparing the Effectiveness of Surgery versus Stereotactic Body Radiation Therapy for Stage I Non-Small Cell Lung CanToddI: Dr. Elliot Lyman Study Visit: Follow-up I telephoned the patient for the 1 month follow up for the SORT Study. Reaffirmed that the patient still wishes to participate in the study and continues to consent to the study. Has the patient had any changes in his health since the last study visit? NO Has the patient had any outside hospitalizations/ER visits: NO Discussed protocol defined reproductive requirements and risks. Patient verbalized understanding. Cancer Recurrence (not for 1 month) assessment completed per protocol: NO PROMIS surveys sent via email and to be completed YES Discussed with the patient the importance of follow up in the study. He verbalized understanding. Next study visit will be in 5 months. Patient contact information reaffirmed and updated. Coordinator contact information provided to the patient. Education provided: Protocol required tests/procedures, Follow up requirements/schedule. Materials dispensed: None House Designer: Camila Leger RN Pager # [phone] Referring Provider: KAYLENE FELIZ [[id number]] Allergies As of Date: 05/12/2025 Noted Allergy Reaction PENICILLINS 12/26/2010 7 - Swelling Date Reviewed: 03/25/2025 Reviewed by: Yin Dunn RN - Fully Assessed Reason for Visit: Research [[id number]] Primary Visit Diagnosis:Research study patient [Z00.6] Prescriptions as of 05/12/2025 - predniSONE (DELTASONE) 10 mg tablet Take 10 mg by mouth once daily. - methotrexate 2.5 mg tablet Take 2.5 mg by mouth every Saturday. 5 tablets 1x a week on Saturdays - folic acid 1 mg tablet Take 1 mg by mouth once daily. - losartan (COZAAR) 25 mg tablet Take [...] 1 Patch as directed once daily. - metoprolol tartrate, short acting, (LOPRESSOR) 50 mg tablet Take 1 tablet by mouth twice daily. - acetaminophen (TYLENOL) 500 mg tablet Take 2 tablets by mouth every 6 hours as needed for pain. No more than 4000 mg total for a 24 hours window. Thanks. - polyethylene glycol 3350 (MIRALAX, GLYCOLAX) 17 [...] once daily. Problem List As Of Date 05/12/2025 Noted Resolved Coronary arteriosclerosis in crow artery [I25*12/14/2013 Chest discomfort [R07.89] 12/14/2013 08/16/2022 Heart murmur, systolic [R01.1] 12/14/2013 08/16/2022 SOB (shortness of breath) on exertion [R06.02] 12/14/2013 08/16/2022 Fatigue [R53.83] 12/14/2013 08/16/2022 Hyperlipidemia LDL goal <70 [E78.5] 07/25/2016 Tobacco abuse [Z72.0] 07/25/2016 Essential hypertension [I10] 01/17/2017 S/P CABG x 4 [Z95.1] 03/10/2020 Aortic dissection (HCC) [I71.00] 08/16/2022 Nicotine use disorder, F17.2 [F17.200] 08/17/2022 Obesity, Class I, BMI 30-34.9 [E66.811] 08/17/2022 On mechanically assisted ventilation (HCC) [Z99*08/18/2022 08/18/2022 CAD (coronary artery disease) [I25.10] 08/18/2022 Postoperative pain [G89.18] 08/18/2022 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/18/2022 Coagulopathy (HCC) [D68.9] 08/18/2022 08/20/2022 MISTY (obstructive sleep apnea) [G47.33] 08/18/2022 Pulmonary edema, acute (HCC) [J81.0] 08/20/2022 08/21/2022 Encounter for support and coordination of trans*08/20/2022 Encounter Status:Closed by CAMILA LEGER on 05/12/25 Normal [facility] Absolute lymphocyte countOrd ered By: Martha Kim on 04-22-2025 Lymphocytes Auto (Unsp spec) [#/Vol] 1.29 10*3/uL 0.83-4.51 [facility] Absolute neutrophil countOrd ered By: Martha Kim on 04-22-2025 Neutrophils (Bld) [#/Vol] 5.8 10*3/uL 2.0-7.7 [facility] Anion gap in Serum or Plasma Ordered By: Martha Kim on 04-22-2025 Anion gap [Moles/Vol] 13 mmol/L 5-15 [facility] Automated lymphocyte count a s percentage of total leukocytesOrdered By: Martha Kim on 04-22-2025 Lymphocytes/100 WBC Auto (Unsp spec) 15.5 % Low 19-41 [facility] [facility] BUN/creatinine ratioOrdered By: Martha Kim on 04-22-2025 Urea nitrogen/Creatinine [Mass ratio] 11.7 mg/mg 10-20 [facility] Basophil percentageOrdered B y: Martha Kim on 04-22-2025 Basophils/100 WBC (Bld) 1.4 % High 0-1 [facility] Bilirubin, totalOrdered By: Martha Kim on 04-22-2025 Bilirubin [Mass/Vol] 0.51 mg/dL 0.00-1.30 [facility] CBC W/Diff, Automatedon Absolute Lymph 1.29 X10 3/uL Normal 0.83-4.51 [facility] Comment on above: Performed By: #### L 100.0100, L500.4050 #### [facility] [address] [place], [address] Absolute Neut 5.8 X10 3/uL Normal 2.0-7.7 [facility] Comment on above: Performed By: #### L 100.0100, L500.4050 #### [facility] [address] [place], [address] Basophils/100 WBC (Bld) 1.4 % High 0-1 [facility] Comment on above: Performed By: #### L 100.0100, L500.4050 #### [facility] [address] [place], [address] Eosinophils/100 WBC (Bld) 4.6 % Normal 0-5 [facility] Comment on above: Performed By: #### L 100.0100, L500.4050 #### [facility] [address] [place], [address] Erythrocyte distribution width (RBC) [Ratio] 14.8 % High 11.6-14.6 [facility] Comment on above: Performed By: #### L 100.0100, L500.4050 #### [facility] [address] [place], [address] Hematocrit (Bld) [Volume fraction] 35.8 % Low 40-54 [facility] Comment on above: Performed By: #### L 100.0100, L500.4050 #### [facility] [address] [place], [address] Hemoglobin (Bld) [Mass/Vol] 12.5 g/dL Low 13.0-16.5 [facility] Comment on above: Performed By: #### L 100.0100, L500.4050 #### [facility] [address] [place], [address] IG% 0.600 Normal 0.0-0.9 [facility] Comment on above: Result Comment: IG% - Immature Granulocytes (promyelocytes, myelocytes and metamyelocytes) > 1% indicates that a LEFT SHIFT is Present. Performed By: #### L 100.0100, L500.4050 #### [facility] [address] [place], [address] Lymphocytes/100 WBC (Bld) 15.5 % Low 19-41 [facility] Comment on above: Performed By: #### L 100.0100, L500.4050 #### [facility] [address] [place], [address] MCH (RBC) [Entitic mass] 33.5 pg High 27.0-32.0 [facility] Comment on above: Performed By: #### L 100.0100, L500.4050 #### [facility] [address] [place], [address] MCHC (RBC) [Mass/Vol] 34.9 g/dL Normal 32-36 [facility] Comment on above: Performed By: #### L 100.0100, L500.4050 #### [facility] [address] [place], [address] MCV (RBC) [Entitic vol] 96.0 fL High 80-[address] [facility] Comment on above: Performed By: #### L 100.0100, L500.4050 #### [facility] [address] [place], [address] Monocytes/100 WBC (Bld) 7.9 % Normal 0-[address] [facility] Comment on above: Performed By: #### L 100.0100, L500.4050 #### [facility] [address] [place], [address] Neutrophils/100 WBC (Bld) 70.0 % Normal 47-70 [facility] Comment on above: Performed By: #### L 100.0100, L500.4050 #### [facility] [address] [place], [address] Nucleated RBC (Bld) [#/Vol] 0 10*3/uL Normal 0-5 [facility] Comment on above: Performed By: #### L 100.0100, L500.4050 #### [facility] [address] [place], [address] Platelet mean volume (Bld) [Entitic vol] 10.5 fL Normal 6.2-12.0 [facility] Comment on above: Performed By: #### L 100.0100, L500.4050 #### [facility] [address] [place], [address] Platelets (Bld) [#/Vol] 220 10*3/uL Normal 150-450 [facility] Comment on above: Performed By: #### L 100.0100, L500.4050 #### [facility] [address] [place], [address] RBC (Bld) [#/Vol] 3.73 10*6/uL Low 4.6-6.2 [facility] Comment on above: Performed By: #### L 100.0100, L500.4050 #### [facility] [address] [place], [address] RDW SD 51.8 fl High 35.1-43.9 [facility] Comment on above: Performed By: #### L 100.0100, L500.4050 #### [facility] [address] [place], [address] WBC (Bld) [#/Vol] 8.3 10*3/uL Normal 4.4-11.0 [facility] Comment on above: Performed By: #### L 100.0100, L500.4050 #### [facility] [address] [place], [address] Carbon dioxide, total [Moles /volume] in Central venous bloodOrdered By: Martha Kim on 04-22-2025 CO2 [Moles/Vol] 21.4 mmol/L 21.0-32.0 [facility] Chloride assayOrdered By: Damien Kim on 04-22-2025 Chloride [Moles/Vol] 106 mmol/L 98-108 [facility] Comprehensive Metabolic Prof ilon 04-22-2025 Albumin [Mass/Vol] 4.4 g/dL Normal 3.4-4.8 [facility] Comment on above: Performed By: #### L 100.0100, L500.4050 ####[facility] [address] [place], [address] Albumin/Globulin [Mass ratio] 1.9 {ratio} Normal 0.9-2.4 [facility] Comment on above: Performed By: #### L 100.0100, L500.4050 ####[facility] [address] [place], [address] ALK PHOS 100 U/L Normal 40-129 [facility] Comment on above: Performed By: #### L 100.0100, L500.4050 ####[facility] [address] [place], [address] ALT [Catalytic activity/Vol] 23 U/L Normal <=46 [facility] Comment on above: Performed By: #### L 100.0100, L500.4050 ####[facility] [address] [place], [address] AST [Catalytic activity/Vol] 19 U/L Normal <=37 [facility] Comment on above: Performed By: #### L 100.0100, L500.4050 ####[facility] [address] [place], [address] Bilirubin [Mass/Vol] 0.51 mg/dL Normal 0.00-1.30 [facility] Comment on above: Performed By: #### L 100.0100, L500.4050 ####[facility] [address] [place], [address] BUN/CRE 11.7 RATIO Normal 10-20 [facility] Comment on above: Performed By: #### L 100.0100, L500.4050 ####[facility] [address] [place], [address] Calcium [Mass/Vol] 9.5 mg/dL Normal 7.6-11.0 [facility] Comment on above: Performed By: #### L 100.0100, L500.4050 ####[facility] [address] [place], [address] Chloride [Moles/Vol] 106 mmol/L Normal 98-108 [facility] Comment on above: Performed By: #### L 100.0100, L500.4050 ####[facility] [address] [place], [address] CO2 [Moles/Vol] 21.4 mmol/L Normal 21.0-32.0 [facility] Comment on above: Performed By: #### L 100.0100, L500.4050 ####[facility] [address] [place], [address] Creatinine [Mass/Vol] 1.08 mg/dL Normal 0.70-1.20 [facility] Comment on above: Performed By: #### L 100.0100, L500.4050 ####[facility] [address] [place], [address] GAP 13 Normal 5-15 [facility] Comment on above: Performed By: #### L 100.0100, L500.4050 ####[facility] [address] [place], [address] GFR/1.73 sq M.predicted among non-blacks MDRD (S/P/Bld) [Vol rate/Area] 75 mL/min/{1.73_m2} Normal >60 [facility] Comment on above: Result Comment: mL/m in/1.73m2 CKD-EPI Creatinine Equation (2020) Performed By: #### L 100.0100, L500.4050 ####[facility] [address] [place], [address] Globulin (S) [Mass/Vol] 2.3 g/dL Normal 2.2-4.[address] [facility] Comment on above: Performed By: #### L 100.0100, L500.4050 ####[facility] [address] [place], [address] Glucose [Mass/Vol] 135 mg/dL High 70-99 [facility] Comment on above: Performed By: #### L 100.0100, L500.4050 ####[facility] [address] [place], [address] Potassium [Moles/Vol] 4.4 mmol/L Normal 3.3-5.1 [facility] Comment on above: Performed By: #### L 100.0100, L500.4050 ####[facility] [address] [place], [address] Sodium [Moles/Vol] 140 mmol/L Normal 133-145 [facility] Comment on above: Performed By: #### L 100.0100, L500.4050 ####[facility] [address] [place], [address] T PROT 6.7 g/dL Normal 5.9-8.4 [facility] Comment on above: Performed By: #### L 100.0100, L500.4050 ####[facility] [address] [place], [address] Urea nitrogen [Mass/Vol] 13 mg/dL Normal 4-19 [facility] Comment on above: Performed By: #### L 100.0100, L500.4050 ####[facility] [address] [place], [address] Eosinophil percentageOrdered By: Martha Kim on 04-22-2025 Eosinophils/100 WBC (Bld) 4.6 % 0-5 [facility] Erythrocyte distribution wid th ratioOrdered By: Martha Kim on 04-22-2025 Erythrocyte distribution width (RBC) [Ratio] 14.8 % High 11.6-14.6 [facility] Erythrocyte distribution wid th standard deviationOrdered By: Martha Kim on 04-22-2025 Erythrocyte distribution width (RBC) [Ratio] 51.8 fl High 35.1-43.9 [facility] Glomerular filtration rate ( GFR) estimation/1.73 sq m using serum, plasma, or whole bOrdered By: Martha Kim on 04-22-2025 GFR/1.73 sq M.predicted among non-blacks MDRD (S/P/Bld) [Vol rate/Area] 75 mL/min/{1.73_m2} >60 [facility] Comment on above: mL/min/1.73m2 CKD-EP I Creatinine Equation (2020) Hematocrit Auto (Bld) [Volum e fraction]Ordered By: Martha Kim on 04-22-2025 Hematocrit (Bld) [Volume fraction] 35.8 % Low 40-54 [facility] Hemoglobin measurementOrdere d By: Martha Kim on 04-22-2025 Hemoglobin (Bld) [Mass/Vol] 12.5 g/dL Low 13.0-16.5 [facility] Immature granulocytes/100 WB C Auto (Bld)Ordered By: Martha Kim on 04-22-2025 Immature granulocytes/100 WBC (Bld) 0.600 % 0.0-0.9 [facility] Comment on above: IG% - Immature Granu locytes (promyelocytes, myelocytes and metamyelocytes) > 1% indicates that a LEFT SHIFT is Present. Laboratory - Chemistry and C hemistry - challengeOrdered By: Martha Kim on 04-22-2025 AST [Catalytic activity/Vol] 19 U/L <38 [facility] MCV (mean corpuscular volume ) determinationOrdered By: Martha Kim on 04-22-2025 MCV (RBC) [Entitic vol] 96.0 fL High 80-94 [facility] Mean corpuscular hemoglobin (MCH) determinationOrdered By: Martha Kim on 04-22-2025 MCH (RBC) [Entitic mass] 33.5 pg High 27.0-32.0 [facility] Mean corpuscular hemoglobin concentration (MCHC) determinationOrdered By: Martha Kim on 04-22-2025 MCHC (RBC) [Mass/Vol] 34.9 g/dL 32-36 [facility] Mean platelet volume determi nationOrdered By: Martha Kim on 04-22-2025 Platelet mean volume (Bld) [Entitic vol] 10.5 fL 6.2-12.0 [facility] Monocyte percentageOrdered B y: Martha Kim on 04-22-2025 Monocytes/100 WBC (Bld) 7.9 % 0-10 [facility] Neutrophil percentageOrdered By: Martha Kim on 04-22-2025 Neutrophils/100 WBC (Bld) 70.0 % 47-70 [facility] Nucleated red blood cell per centageOrdered By: Martha Kim on 04-22-2025 Nucleated RBC/100 WBC (Bld) [Ratio] 0 % 0-5 [facility] Platelet countOrdered By: Damien Kim on 04-22-2025 Platelets (Bld) [#/Vol] 220 10*3/uL 150-450 [facility] Potassium measurement (mass/ volume)Ordered By: Martha Kim on 04-22-2025 Potassium (Unsp spec) [Mass/Vol] 4.4 mmol/L 3.3-5.1 [facility] RBC Auto (Bld) [#/Vol]Ordere d By: Martha Kim on 04-22-2025 RBC (Bld) [#/Vol] 3.73 10*6/uL Low 4.6-6.2 [facility] Serum creatinine measurement (mass/volume)Ordered By: Martha Kim on 04-22-2025 Creatinine [Mass/Vol] 1.08 mg/dL 0.70-1.20 [facility] Serum globulin measurementOr dered By: Martha Kim on 04-22-2025 Globulin (S) [Mass/Vol] 2.3 g/dL 2.2-4.[address] [facility] Serum glucose measurement (m ass/volume)Ordered By: Martha Kim on 04-22-2025 Glucose [Mass/Vol] 135 mg/dL High 70-99 [facility] Serum or plasma alanine overton otransferase (ALT) measurementOrdered By: Martha Kim on 04-22-2025 ALT [Catalytic activity/Vol] 23 U/L <47 [facility] Serum or plasma albumin camilo urement (mass/volume)Ordered By: Martha Kim on 04-22-2025 Albumin [Mass/Vol] 4.4 g/dL 3.4-4.8 [facility] Serum or plasma albumin/glob ulin mass ratioOrdered By: Martha Kim on 04-22-2025 Albumin/Globulin [Mass ratio] 1.9 {ratio} 0.9-2.4 [facility] Serum or plasma alkaline balaji sphatase measurementOrdered By: Martha Kim on 04-22-2025 ALP [Catalytic activity/Vol] 100 U/L 40-129 [facility] Serum or plasma calcium camilo urement (mass/volume)Ordered By: Martha Kim on 04-22-2025 Calcium [Mass/Vol] 9.5 mg/dL 7.6-11.0 [facility] Serum or plasma urea nitroge n measurement (mass/volume)Ordered By: Martha Kim on 04-22-2025 Urea nitrogen [Mass/Vol] 13 mg/dL 4-19 [facility] Sodium levelOrdered By: Laquita Kim on 04-22-2025 Sodium [Moles/Vol] 140 mmol/L 133-145 [facility] Total proteinOrdered By: Jude Kim on 04-22-2025 Protein [Mass/Vol] 6.7 g/dL 5.9-8.4 [facility] White blood cell (WBC) count Ordered By: Martha Kim on 04-22-2025 WBC (Bld) [#/Vol] 8.3 10*3/uL 4.4-11.0 [facility] CNOVon 03-25-2025 CNOV Office Visit (RADTMN ) YARI LOPEZ ([id number]) 1955 M Date Time Provider Department 03/25/25 1:10 PM KAYLENE FELIZ RADPATRICIA During your visit today, we recorded the following information about you: Temperature Pulse Respiration Blood pressure 97.7 degrees 61/minute 16/minute 136/61 Weight 105.5 kg Kaylene Feliz MD 03/30/2025 12:23 PM Signed Radiation Oncology - On Treatment Review (OTR) Note PATIENT NAME: Yari Lopez PATIENT DIAGNOSIS: : 69 year old male with [id number] adenocarcinoma (KRAS mutation, PD L1 2%), high risk operable (prior CABG, aortic dissection surgically corrected, carotid stenosis surgically corrected). PROTOCOL: no COURSE: definitive and SBRT (stereotactic body radiotherapy) Current dose: 2000 cGy in 2 fx Planned dose: 5000 cGy in 5 fx SUBJECTIVE: Mr. Lopez was seen in clinic today for OTV. Tolerating treatment well. Denies fatigue at this time. Discussed possible side effects, treatment plan and follow up plan. Above completed by Bruce Cervantes RN Above, no acute changes with treatment. Last 5 Encounter Wt Readings: Date: Wt: 03/25/2025 105.5 kg (232 lb 9.6 oz) 03/16/2025 101.2 kg (223 lb 1.6 oz) 03/15/2025 106.6 kg (235 lb) 03/05/2025 104.6 kg (230 lb 9.6 oz) 03/05/2025 104.3 kg (230 lb) PHYSICAL EXAM: BP 136/61 Pulse 61 Temp 36.5 ?C (97.7 ?F) (Temporal) Resp 16 Wt 105.5 kg (232 lb 9.6 oz) SpO2 97% BMI 33.37 kg/m? Area Assessed: Chest KPS: 90 General Appearance: Alert and oriented. No acute distress. Chest: No respiratory distress. Lungs clear to auscultation bilaterally. IMAGING/LAB RESULTS: None TOXICITY ASSESSMENT (CTC v4.0): Fatigue: grade 0 - No symptoms Weight loss: grade 0 - No weight loss Nausea:Grade 0 - No Symptoms Radiation Dermatitis:grade 0 - No symptoms Dysphagia: grade 0 - No symptoms Esophageal Pain: Grade 0 - No symptoms Dyspnea: grade 0 (No symptoms) I have personally participated in the linder components of the case and agree with the above findings: Treatment chart checked: YES Patient treatment site reviewed and verified: YES Setup images reviewed and current: YES ASSESSMENT/PLAN: Clinically stable. Toxicity within expected parameters. Continue radiation treatment as planned. Follow-up imaging in 3-4 months per guidelines ([facility] [place] w [facility]). Signed by: Kaylene Feliz MD Allergies As of Date: 03/25/2025 Noted Allergy Reaction PENICILLINS 12/26/2010 7 - Swelling Date Reviewed: 03/25/2025 Reviewed by: Yin Dunn RN - Fully Assessed Reason for Visit: Radiotherapy On-treatment Visit [1722] Primary Visit Diagnosis:Malignant neoplasm of upper lobe of right lung (HCC) [C34.11] Other Visit Diagnosis:Malignant neoplasm of unspecified part of unspecified bronchus or lung (HCC) [C34.90] Order(s):CT CHEST WO IVCON [[id number]] Order #: [id number] FUTURE Prescriptions as of 03/30/2025 - predniSONE (DELTASONE) 10 mg tablet Take 10 mg by mouth once daily. - methotrexate 2.5 mg tablet Take 2.5 mg by mouth every Saturday. 5 tablets 1x a week on Saturdays - folic acid 1 mg tablet Take 1 mg by mouth once daily. - losartan (COZAAR) 25 mg tablet Take [...] 1 Patch as directed once daily. - metoprolol tartrate, short acting, (LOPRESSOR) 50 mg tablet Take 1 tablet by mouth twice daily. - acetaminophen (TYLENOL) 500 mg tablet Take 2 tablets by mouth every 6 hours as needed for pain. No more than 4000 mg total for a 24 hours window. Thanks. - polyethylene glycol 3350 (MIRALAX, GLYCOLAX) 17 [...] once daily. Problem List As Of Date 03/25/2025 Noted Resolved Coronary arteriosclerosis in crow artery [I25*12/14/2013 Chest discomfort [R07.89] 12/14/2013 08/16/2022 Heart (more content not included)... Normal [facility] CNNURSEon 03-23-2025 [facility] Nurse Visit (CARTMN) YARI LOPEZ ([id number]) 1955 M Date Time Provider Department 03/23/25 12:45 PM RESEARCH NURSE YADIRA TAVAREZ During your visit today, we recorded the following information about you: Acacia Castaneda RN 03/23/2025 3:48 PM Addendum IRB# [id number] Comparing the Effectiveness of Surgery versus Stereotactic Body Radiation Therapy for Stage I Non-Small Cell Lung Cancer PI: Dr. Vishnu Lyman Study Visit: Screening/Consent I met the patient for the SORT Study. Consented to the study. Confirmed email is correct and consents to receive emails from [employer]. Meeting Facilitator strength test completed: YES 4-meter walk completed: YES Questionnaires completed per protocol: YES NYHA class II :Slight limitation of physical activity. Comfortable at rest. Ordinary physical activity results in fatigue , palpitation, or dyspnea. [facility] surveys sent via email/[employer] notification and patient understands need to complete: YES Discussed with the patient the importance of follow up in the study. He/She verbalized understanding. Next study visit will be via telephone Patient contact information reaffirmed and updated. Coordinator contact information provided to the patient. Education provided: Protocol, Protocol required tests/procedures, Follow up requirements/schedule. Materials dispensed: Coordinator contact card, Acacia Castaneda R.N. House Designer Pager # [phone] Referring Provider: ELLIOT LYMAN [[id number]] Allergies As of Date: 03/23/2025 Noted Allergy Reaction PENICILLINS 12/26/2010 7 - Swelling Date Reviewed: 03/16/2025 Reviewed by: Melody Garcia RN - Fully Assessed Reason for Visit: Research F/U [748] Cmt: IRB# [id number] Comparing the Effectiveness of Surgery versus Stereotactic Body Radiation Therapy for Stage I Non-Small Cell Lung Cancer PI: Dr. Vishnu Lyman Primary Visit Diagnosis:Research study patient [Z00.6] Prescriptions as of 03/23/2025 - predniSONE (DELTASONE) 10 mg tablet Take 10 mg by mouth once daily. - methotrexate 2.5 mg tablet Take 2.5 mg by mouth every Saturday. 5 tablets 1x a week on Saturdays - folic acid 1 mg tablet Take 1 mg by mouth once daily. - losartan (COZAAR) 25 mg tablet Take [...] 1 Patch as directed once daily. - metoprolol tartrate, short acting, (LOPRESSOR) 50 mg tablet Take 1 tablet by mouth twice daily. - acetaminophen (TYLENOL) 500 mg tablet Take 2 tablets by mouth every 6 hours as needed for pain. No more than 4000 mg total for a 24 hours window. Thanks. - polyethylene glycol 3350 (MIRALAX, GLYCOLAX) 17 [...] once daily. Problem List As Of Date 03/23/2025 Noted Resolved Coronary arteriosclerosis in crow artery [I25*12/14/2013 Chest discomfort [R07.89] 12/14/2013 08/16/2022 Heart murmur, systolic [R01.1] 12/14/2013 08/16/2022 SOB (shortness of breath) on exertion [R06.02] 12/14/2013 08/16/2022 Fatigue [R53.83] 12/14/2013 08/16/2022 Hyperlipidemia LDL goal <70 [E78.5] 07/25/2016 Tobacco abuse [Z72.0] 07/25/2016 Essential hypertension [I10] 01/17/2017 S/P CABG x 4 [Z95.1] 03/10/2020 Aortic dissection (HCC) [I71.00] 08/16/2022 Nicotine use disorder, F17.2 [F17.200] 08/17/2022 Obesity, Class I, BMI 30-34.9 [E66.811] 08/17/2022 On mechanically assisted ventilation (HCC) [Z99*08/18/2022 08/18/2022 CAD (coronary artery disease) [I25.10] 08/18/2022 Postoperative pain [G89.18] 08/18/2022 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 Normal [facility] YARI LOPEZ ([id number]) 1955 M Date Time Provider Department 03/16/25 1:30 PM [facility]URSE [facility] RADTMN During your visit today, we recorded the following information about you: Temperature Pulse Respiration Blood pressure 97.4 degrees 62/minute 18/minute 132/62 Weight 101.2 kg Melody Garcia RN 03/16/2025 1:33 PM Signed Radiation Therapy - Patient Education Note PATIENT NAME: Yari Lopez PATIENT March 16, 2025 [facility] FACILITY/LOCATION: [facility] [place] READINESS TO LEARN Cognitive Ability: Alert and oriented Motivation to learn: Eager Interested Family Support: High - Very involved in pt care Instruction provide to: Patient and Family member Patient learns best by: Individual Instruction Written Instruction - Hand-outs Verbal Instruction Factors effecting learning: None Physical limitations effecting learning: None LEARNING RESPONSE Diagnosis: Pt simulated today for radiation therapy to right lung. Education Topic/Teaching Points: Radiation therapy, Side effects, and OTV: Method of instruction: Individual instruction Written instruction/Handouts Verbal instruction Patient /Family response: Patient and family verbalized understanding of radiation treatments, side effects, OTV, and transportation. Follow-up plan: Patient instructed to call with any further issues Supplemental material: Informational handouts on SBRT lung. Referral (recommendation): Social Work Was PED reviewed? Yes Patient has an Onbody or Implanted device: No Signed by: Melody Garcia RN Allergies As of Date: 03/16/2025 Noted Allergy Reaction PENICILLINS 12/26/2010 7 - Swelling Date Reviewed: 03/16/2025 Reviewed by: Melody Garcia RN - Fully Assessed Reason for Visit: Patient Education [91] Primary Visit Diagnosis:Lung nodule [R91.1] Prescriptions as of 03/16/2025 - predniSONE (DELTASONE) 10 mg tablet Take [...] once daily. Problem List As Of Date 03/16/2025 Noted Resolved Coronary arteriosclerosis in crow artery [I25*12/14/2013 Chest discomfort [R07.89] 12/14/2013 08/16/2022 Heart murmur, systolic [R01.1] 12/14/2013 08/16/2022 SOB (shortness of breath) on exertion [R06.02] 12/14/2013 08/16/2022 Fatigue [R53.83] 12/14/2013 08/16/2022 Hyperlipidemia LDL goal <70 [E78.5] 07/25/2016 Tobacco abuse [Z72.0] 07/25/2016 Essential hypertension [I10] 01/17/2017 S/P CABG x 4 [Z95.1] 03/10/2020 Aortic dissection (HCC) [I71.00] 08/16/2022 Nicotine use disorder, F17.2 [F17.200] 08/17/2022 Obesity, Class I, BMI 30-34.9 [E66.811] 08/17/2022 On mechanically assisted ventilation (HCC) [Z99*08/18/2022 08/18/2022 CAD (coronary artery disease) [I25.10] 08/18/2022 Postoperative pain [G89.18] 08/18/2022 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*10 (more content not included)... Normal [facility] CNOVon 03-15-2025 CNOV Office Visit (RADTMN ) YARI LOPEZ ([id number]) 1955 M Date Time Provider Department 03/15/25 8:30 AM KAYLENE FELIZ RADTMN During your visit today, we recorded the following information about you: Temperature Pulse Respiration Blood pressure 97.4 degrees 60/minute 18/minute 125/55 Weight 106.6 kg Kaylene Feliz MD 03/16/2025 10:28 AM Signed Radiation Oncology - New Patient/Consult Note PATIENT NAME: Yari Lopez PATIENT REQUESTING PROVIDER: Dr. Lyman. DIAGNOSIS: 69 year old male with [id number] adenocarcinoma (KRAS mutation, PD L1 2%), high risk operable (prior CABG, aortic dissection surgically corrected, carotid stenosis surgically corrected). HPI: 69 year old male who presents with above diagnosis, for an opinion regarding the role of radiation therapy in the management of the patient's disease. Final recommendations will be communicated back to the requesting physician by way of the shared medical record, or letter to requesting physician via US mail. Mr. Yari Lopez is a very pleasant 69 year old gentleman with a newly diagnosed stage IA3 NSCLC of the RUL. He has had a gradually evolving right upper lobe lung nodule noted on pre and postoperative testing and followed. This recently enlarged to 2.6 cm. PET scan demonstrated mild metabolic activity with an SUV max of 1.1. Lungs AND Pleura: 2.6 x 2.3 cm partly solid right upper lobe lung nodule with mild uptake SUV max 1.1 (3:102). Moderate upper lobe predominant centrilobular emphysema. Numerous nonavid small lung nodules below PET resolution. No evidence of distant hypermetabolic uptake. Endobronchial ultrasound-guided lung biopsy demonstrated adenocarcinoma (KRAS mutation, PD-L1 2%). All sampled lymph nodes negative (4L, 11L, 7, 4R, 11 RS, 11 RI). FINAL DIAGNOSIS A - Lung, Right Upper Lobe Nodule,Transbronchial, Fine Needle Aspiration: Positive for malignant cells. Adenocarcinoma. See comment. B - Lymph node, Station 11L, Transbronchial Fine Needle Aspiration: Negative for metastatic malignant cells. Polymorphous lymphoid sample. C - Lymph node, Station 4L, Transbronchial Fine Needle Aspiration: Negative for metastatic malignant cells. Polymorphous lymphoid sample. D - Lymph node, Station 7, Transbronchial Fine Needle Aspiration: Negative for metastatic malignant cells. Polymorphous lymphoid sample. E - Lymph node, Station 4R, Transbronchial Fine Needle Aspiration: Negative for metastatic malignant cells. Polymorphous lymphoid sample. F - Lymph node, Station 11Rs, Transbronchial Fine Needle Aspiration: Negative for metastatic malignant cells. Polymorphous lymphoid sample. G - Lymph node, Station 11Ri, Transbronchial Fine Needle Aspiration: Non-Diagnostic. Predominantly blood. Not a lymphoid sample. Physically and functionally he is well, however does have some dyspnea on exertion. 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 He was evaluated by cardiothoracic surgery and was not felt to be a candidate for sublobar resection given anatomy of disease. Considered for lobectomy, however given combination of his medical risk factors as well as patient's risk of functional compromise was referred for discussion of SBRT as an alternative to surgical resection. Hospital pulmonary function testing reviewed. ALLERGIES Allergen Reactions Penicillins Swelling MEDICATIONS: predniSONE (DELTASONE) 10 mg tablet Take 10 mg by mouth once daily. methotrexate 2.5 mg tablet Take 2.5 mg by mouth every Saturday. 5 tablets 1x a week on Saturdays folic acid 1 mg tablet Take 1 mg by mouth once daily. vortioxetine (TRINTELLIX) 20 mg tablet Take 1 tablet by mouth once daily. glimepiride (AMARYL) 1 mg tablet Take 0.5 tablets by mouth daily with breakfast. losartan (COZAAR) 25 mg tablet Take a half tablet by mouth daily with lunch. aluminum-magnesium hydroxide-simethicone (MAALOX,MYLANTA,MAG-AL PLUS) 200-200-20 mg/5 mL suspension Take 30 mL by mouth as needed (Second Line Therapy). atorvastatin (LIPITOR) 40 mg tablet Take 1 tablet by mouth daily at bedtime. guaiFENesin (MUCINEX) 600 mg 12 hr tablet Take 1 tablet by mouth every 12 hours as needed (cough). lidocaine (SALONPAS) 4 % patch Apply 1 [...] total for a 24 hours window. Thanks. pantoprazole DR (PROTONIX) 20 mg tablet Take 1 tablet by mouth DAILY (6 AM) for 7 days. kristi (more content not included)... [facility] Tele[facility] (GOPI) YARI LOPEZ ([id number]) 1955 M Date Time Provider Department 03/09/25 ELLIOT LYMAN During your visit today, we recorded the following information about you: Bel Moscoso 03/09/2025 10:45 AM Signed Attempt #1 Requested US Thyroid Radiology Imaging from [facility]. Spoke to: Radiology Phone #: [phone] images sent via electronic transfer Bel Moscoso March 09, 2025 10:30 AM DanisDorisra 03/09/2025 11:15 AM Signed Received US Head/Neck/Thyroid report 11/24/24 and Cytology Report 01/19/25 from [facility] Gaviota Subramanian 03/09/2025 11:21 AM Signed Ultrasound report head, neck, thyroid are in Epic. [facility] Allergies As of Date: 03/09/2025 Noted Allergy Reaction PENICILLINS 12/26/2010 7 - Swelling Date Reviewed: 03/05/2025 Reviewed by: Vanessa Ha MA - Fully Assessed Reason for Visit: Request Outside Medical Records [[id number]] Prescriptions as of 06/04/2025 - predniSONE (DELTASONE) 10 mg tablet Take 10 mg by mouth once daily. - methotrexate 2.5 mg tablet Take 2.5 mg by mouth every Saturday. 5 tablets 1x a week on Saturdays - folic acid 1 mg tablet Take 1 mg by mouth once daily. - losartan (COZAAR) 25 mg tablet Take [...] 1 Patch as directed once daily. - metoprolol tartrate, short acting, (LOPRESSOR) 50 mg tablet Take 1 tablet by mouth twice daily. - acetaminophen (TYLENOL) 500 mg tablet Take 2 tablets by mouth every 6 hours as needed for pain. No more than 4000 mg total for a 24 hours window. Thanks. - polyethylene glycol 3350 (MIRALAX, GLYCOLAX) 17 [...] once daily. Problem List As Of Date 03/09/2025 Noted Resolved Coronary arteriosclerosis in crow artery [I25*12/14/2013 Chest discomfort [R07.89] 12/14/2013 08/16/2022 Heart murmur, systolic [R01.1] 12/14/2013 08/16/2022 SOB (shortness of breath) on exertion [R06.02] 12/14/2013 08/16/2022 Fatigue [R53.83] 12/14/2013 08/16/2022 Hyperlipidemia LDL goal <70 [E78.5] 07/25/2016 Tobacco abuse [Z72.0] 07/25/2016 Essential hypertension [I10] 01/17/2017 S/P CABG x 4 [Z95.1] 03/10/2020 Aortic dissection (HCC) [I71.00] 08/16/2022 Nicotine use disorder, F17.2 [F17.200] 08/17/2022 Obesity, Class I, BMI 30-34.9 [E66.811] 08/17/2022 On mechanically assisted ventilation (HCC) [Z99*08/18/2022 08/18/2022 CAD (coronary artery disease) [I25.10] 08/18/2022 Postoperative pain [G89.18] 08/18/2022 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/18/2022 Coagulopathy (HCC) [D68.9] 08/18/2022 08/20/2022 MISTY (obstructive sleep apnea) [G47.33] 08/18/2022 Pulmonary edema, acute (HCC) [J81.0] 08/20/2022 08/21/2022 Encounter for support and coordination of trans*08/20/2022 Encounter Status:Closed by BEL MOSCOSO on 06/04/25 Normal [facility] CNOVon 03-05-2025 CNOV Office Visit (THORMN ) YARI LOPEZ ([id number]) 1955 Date Time Provider Department 03/05/25 1:40 PM ELLIOT LYMAN During your visit today, we recorded the following information about you: Temperature Pulse Respiration Blood pressure 97.9 degrees 63/minute 14/minute 141/59 Weight Height 104.3 kg 1.778 m Elliot Lyman MD, PhD 03/05/2025 3:07 PM Unsigned Component Overhaul Operator [place] [id number] [place] DEPARTMENT OF THORACIC AND CARDIOVASCULAR SURGERY NAME: YARI LOPEZ CLINIC #: [id number] DATE: 03/05/2025 AGE: 69 PHYSICIAN: Elliot Lyman M.D., Ph.D. I had the sincere pleasure of seeing the patient in my Thoracic Surgery Clinic. This very pleasant 69-year-old man has an evolving right upper lobe non-small cell lung cancer in the center of his lobe. This has been followed for a few years and has come to medical attention more recently. 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 He has also had a carotid artery stenosis managed surgically. He has marginal pulmonary function tests and only fair fitness. We were initially trying to determine whether he would be a surgical candidate, and he has improved since he has stopped smoking and has began exercising himself. However, he is somewhat concerned about proceeding with an aggressive resection, which would almost certainly be a right upper lobectomy based on the location of the lesion. A sublobar resection would almost certainly not be possible. Because of this, he has voiced some concerns about loss of lung function given his already only fair pulmonary function. After discussing with him in great length, feels that his concerns are not unwarranted. SBRT for this type of lesion is not ideal, but for him may be his best option based on his own desire for treatment. I will accordingly refer him to our Radiation Oncology team in regard to management. Elliot Lyman M.D., Ph.D. SM:[id number] /[id number] Yuriy Alejandre RN 03/06/2025 12:15 PM Signed Pt here for follow up visit: Slowly evolving right upper lobe non-small cell lung cancer Last clinic note 02/12/25 per Elliot Lyman M.D. IMPRESSION: Slowly evolving right upper lobe non-small cell lung cancer in a former very heavy smoker with a fair pulmonary function test. He has an ECOG performance status zero, but will need to demonstrate some improvement in walk oximetry and prehabilitation. The patient does have some time to improve his vitality for possible operative intervention, which would be a right upper lobe, which would be a right upper lobectomy based on the location of the lesion. He will begin to briskly exercise himself and has from tobacco now 3 weeks ago. I will likely retest him and also may perform a quantitative CT scan as well as a quantitative perfusion scan. Consideration for a CPEX study will also be given. I will finally re walk him in approximately 3 weeks to assess his level of fitness at that time, so that a treatment decision can be made. Today's visit 03/05/25: BP 141/59 Pulse 63 Temp (Src) 97.9 (Oral) Resp 14 Ht 5' 10 (1.78m) Wt 230 lb (104.3kg) SpO2 94% BMI 33.00 kg/(m2). 10/30/24 CT Actionable Findings Again see is about 2 cm inhomogeneous nodule of the right thyroid gland. Acuity: Actionable Findings: Endocrine (thyroid) Routing Code: EMI_1 Recommendation: US THYROID/PARATHYROID Dobutamine Echo 02/25/25 CONCLUSIONS: - Exam indication: Pre-Op Lung Surg. - The dobutamine stress echo was negative for ischemia at 93 % of MPHR. - The left ventricle is normal in size. There is mild left ventricular hypertrophy. Left ventricular systolic function is normal. EF = 56 ? 5% (2D biplane) Definity contrast used for endocardial border detection. - The right ventricle is normal in size. Right ventricular systolic function is normal. - There are no significant valvular abnormalities. - Exam was compared with the prior echocardiographic exam performed on 08/17/2022 (OR Post PRANAV). Similar findings. 6MWT 03/05/25 Distance Walked (meters) Distance Walked (feet) Male Predicted Walk Distance (feet) Male Lower Limit of Normal (feet) Male % Predicted Total Duration Of The Stops (seconds) 335.28 1100 1722.77 1220.77 63.9 -- Pt has been walking around the block a few times a day Pt has been smoke free since 01/19/25 ELIEZER Faustin Sudish, MD, PhD 03/06/2025 12:15 PM Signed I have read and reviewed the documentation and agree. I wish to add the following findings which have been dictated and will be communicated back to the requesting physician. Elliot (more content not included)... Normal [facility] SIX MINUTE WALKon 03-05-2025 Miah Granados MD 03/05/2025 12:38 PM RESPIRATORY THERAPY SIX MINUTE WALK TEST OXIMETRY REPORT Six Minute Walk Test for This Encounter Oxygen Device Liters FIO2 SpO2% HR Activity Feet Speed (MPH) Flag R/A 98 67 Resting R/A 96 95 Six Minute Walk 1100 2.1 R/A 97 78 Recovery 1 minute post R/A 97 70 Recovery 2 minute post R/A 99 72 Recovery 3 minute post General Information Height Weight Pulse Oximetry Site Oximeter Pre Blood Pressure Post Blood Pressure Total Time Spent (min) 179.6 cm (5' 10.71) 104.6 kg (230 lb 9.6 oz) Forehead Masimo 119/48 155/55 30 _ Distance Walked (meters) Distance Walked (feet) Male Predicted Walk Distance (feet) Male Lower Limit of Normal (feet) Male % Predicted Total Duration Of The Stops (seconds) 335.28 1100 1722.77 1220.77 63.9 -- _ Lowest SpO2 During 6 Minute Walk Pre-Mathew Dyspnea Rating Pre-Mathew Fatigue Rating Post Mathew Dyspnea Rating Post Mathew Fatigue Rating 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 . The patient required Room Air to complete the test. The distance the patient walked in six minutes is moderately reduced. This is the first time patient takes the six minute walk test. The patient perceived their dyspnea during the six minute walk test to be 2-Slight on the modified Mathew scale. The patient perceived their fatigue during the six minute walk test to be 1-Very slight on the modified Mathew scale. I have reviewed the findings and made appropriate revisions as needed. SIGNATURE: Miah Granados MD PATIENT NAME: Yari Lopez DATE: March 05, 2025 TIME: 12:38 PM [facility] SIX MINUTE WALKOrdered By: Antonio Granados on 03-05-2025 [facility] Work Phone: CNOVon 02-25-2025 CNOV Office Visit (CAFLMN ) BLOSSOMYARI KENNEDY ([id number]) 1955 M Date Time Provider Department 02/25/25 9:00 AM DOBUTAMINE ECHO CARD MAIN CAFLMN During your visit today, we recorded the following information about you: Sarah Richard, ELIEZER 02/25/2025 9:49 AM Signed . Dobutamine Stress Echo Plan of Care Plan of care discussed with physician and medication order set signed: Yes Indication for Dobutamine Stress Echo: r/o ischemia Contraindications to medications: None Education on dobutamine stress echo with patient completed. Yes 02/25/2025 9:04 AM IV Access: IV IV Site: right Antecubital IV GAUGE 22 gauge IV Removal Date 02/26/24 Time 0945 Reactions: WNL Referring Provider: ELLIOT LYMAN [[id number]] Allergies As of Date: 02/25/2025 Noted Allergy Reaction PENICILLINS 12/26/2010 7 - Swelling Date Reviewed: 02/12/2025 Reviewed by: Vanessa Ha MA - Fully Assessed Reason for Visit: Procedure [88] Cmt: DSE Visit Diagnoses:Dissection of thoracic aorta, unspecified part (HCC) [I71.019] 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al angiopathy without gangrene, without long-term current use of insulin (HCC) [E11.51] Personal history of malignant neoplasm of bronchus and lung [Z85.118] Lung nodule [R91.1] Order(s):STRESS ECHO DOBUTAMINE [[id number]] Order #: [id number]: 1 Prescriptions as of 02/25/2025 - predniSONE (DELTASONE) 10 mg tablet Take [...] once daily. Problem List As Of Date 02/25/2025 Noted Resolved Coronary arteriosclerosis in crow artery [I25*12/14/2013 Chest discomfort [R07.89] 12/14/2013 08/16/2022 Heart murmur, systolic [R01.1] 12/14/2013 08/16/2022 SOB (shortness of breath) on exertion [R06.02] 12/14/2013 08/16/2022 Fatigue [R53.83] 12/14/2013 08/16/2022 Hyperlipidemia LDL goal <70 [E78.5] 07/25/2016 Tobacco abuse [Z72.0] 07/25/2016 Essential hypertension [I10] 01/17/2017 S/P CABG x 4 [Z95.1] 03/10/2020 Aortic dissection (HCC) [I71.00] 08/16/2022 Nicotine use disorder, F17.2 [F17.200] 08/17/2022 Obesity, Class I, BMI 30-34.9 [E66.811] 08/17/2022 On mechanically assisted ventilation (HCC) [Z99*08/18/2022 08/18/2022 CAD (coronary artery disease) [I25.10] 08/18/2022 Postoperative pain [G89.18] 08/18/2022 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/18/2022 Coagulopathy (HCC) [D68.9] 08/18/2022 08/20/2022 MISTY (obstructive sleep apnea) [G47.33] 08/18/2022 Pulmonary edema, acute (HCC) [J81.0] 08/20/2022 08/21/2022 Encounter for support and coordination of trans*08/20/2022 Encounter Status:Closed by SARAH RICHARD on 02/25/25 Normal [facility] LVEF STRESS ECHO DOBUTAMINEo n 02-25-2025 LV Ejection Fraction 56 % [facility] Comment on above: (2D biplane) EF > 52 An LV Ejection Fraction of > 50% is normal No Panel Informationon 02-25 [facility] STRESS ECHO DOBUTAMINEon Stress Game Operator Report: Dobutamine Stress [place] [id number] Date of service: 02/25/2025 9:00:19 AM MANAGER Supervising physician: Zhang Conner MD PATIENT: Name: MR. YARI LOPEZ Age: 69 years Gender: M Final ---- Echocardiography Report: Dobutamine Stress [facility] J1-5 Date of service: 02/25/2025 9:00:19 AM MANAGER Ordering physician: ELLIOT LYMAN Indication: Pre-Op Lung Surg. Technologist: Mary Ruth Fellow: Naty Allen MD Interpreting physician: Zhang Conner MD PATIENT: Name: MR. YARI LOPEZ : 1955 Age: 69 years Gender: M History of coronary artery disease. Previous cardiovascular interventions: CABG (2019) Type A dissection repair (2021) Primary rhythm: sinus. Height: 180.30 cm BSA: 2.25 m Weight: 100.92 kg BMI: 31.0 kg/m Heart rate 66 bpm Blood pressure 149/76 mmHg Color Doppler was utilized to interrogate the cardiac valves assessed and spectral Doppler was utilized to determine the flow velocities and pressure gradients reported in this exam. MEASUREMENTS: Value Indexed Normal Max aortic dimension 3.7 cm Ao < 3.8 Left atrial volume 56 ml (4ch A-L) 25 ml/m Juliane <= 34 LV ID (diastole) 5.1 cm (2D) 2.26 cm/m LV ID (systole) 3.2 cm (2D) 1.41 cm/m IVS, leaflet tips 1.6 cm (2D) Posterior wall thickness 1.2 cm (2D) Left ventricular mass 305 g (2D) 135 g/m LV stroke volume 66 ml (2D biplane) LV end diastolic volume 117 ml (2D biplane) 51.8 ml/m 34<=EDVi<75 LV end systolic volume 51 ml (2D biplane) 22.7 ml/m Ejection Fraction 56 % (2D biplane) EF > 52 FINDINGS: LEFT VENTRICLE The left ventricle is normal in size. There is mild left ventricular hypertrophy. Left ventricular systolic function is normal. Mitral annular lateral E/e': 7.3. Mitral annular septal E/e': 9.1. Definity contrast used for endocardial border detection. Wall Motion: Rest: All scored segments are normal. Low dose: All scored segments are normal. Peak dose: All scored segments are normal. RIGHT VENTRICLE The right ventricle is normal in size. Right ventricular systolic function is normal. RV systolic tissue Doppler velocity is 7.2 cm/s. Estimated right ventricular systolic pressure is not reported due to an insufficient tricuspid regurgitation signal. Estimated right atrial pressure is 3 mmHg (although IVC not seen). LEFT ATRIUM The left atrial cavity is normal in size. RIGHT ATRIUM The right atrial cavity is normal in size. MITRAL VALVE The mitral valve leaflets are structurally normal. There is mild (1+) mitral valve regurgitation. The pressure half time is 64 msec. The peak mitral E/A ratio is 1.11. The average mitral E/e' ratio is 8.2. The mitral flow deceleration time is 221 msec. TRICUSPID VALVE The tricuspid valve leaflets are structurally normal. There is trace tricuspid valve regurgitation. AORTIC VALVE The aortic valve cusps are structurally normal. There is no aortic valve regurgitation. Tricuspid aortic valve. The peak gradient is 5 mmHg (peak velocity = 108.8 cm/s). PULMONIC VALVE There is trace pulmonic valve regurgitation. The peak gradient is 5 mmHg. AORTA The visualized aorta is normal in size. Measurements - Sinus: 3.7 cm. PERICARDIUM There is no pericardial effusion. There is an epicardial fat pad. CORONARY ARTERIES The coronary arteries are unseen or not interrogated. DOBUTAMINE STRESS ECHO Stress protocol consisted of dobutamine up to 40 mcg/kg/min with hand expert medical writer and atropine. Rest HR 66 bpm. Peak HR 141 bpm. (93 % MPHR) Rest BP 149 mmHg/76 mmHg. Peak BP 146 mmHg/59 mmHg. The left ventricular cavity size is decreased with stress. CONCLUSIONS: - Exam indication: Pre-Op Lung Surg. - The dobutamine stress echo was negative for ischemia at 93 % of MPHR. - The left ventricle is normal in size. There is mild left ventricular hypertrophy. Left ventricular systolic function is normal. EF = 56 5% (2D biplane) Definity contrast used for endocardial border detection. - The right ventricle is normal in size. Right ventricular systolic function is normal. - There are no significant valvular abnormalities. - Exam was compared with the prior echocardiographic exam performed on 08/17/2022 (OR Post PRANAV). Similar findings. Final ---- Stress ECG Report: Dobutamine Stress [facility] J1-5 Date of (more content not included)... [facility] STRESS ECHO DOBUTAMINE Stress Game Operator Report: Dobutamine Stress [facility] J1-5 Date of service: 02/25/2025 9:00:19 AM MANAGER Supervising physician: Zhang Conner MD PATIENT: Name: MR. YARI LOPEZ Age: 69 years Gender: M Final ---- Echocardiography Report: Dobutamine Stress [facility] J1-5 Date of service: 02/25/2025 9:00:19 AM MANAGER Ordering physician: ELLIOT LYMAN Indication: Pre-Op Lung Surg. Technologist: Mary Ruth Fellow: Naty Allen MD Interpreting physician: Zhang Conner MD PATIENT: Name: MR. YARI LOPEZ : 1955 Age: 69 years Gender: M History of coronary artery disease. Previous cardiovascular interventions: CABG (2019) Type A dissection repair (2021) Primary rhythm: sinus. Height: 180.30 cm BSA: 2.25 m Weight: 100.92 kg BMI: 31.0 kg/m Heart rate 66 bpm Blood pressure 149/76 mmHg Color Doppler was utilized to interrogate the cardiac valves assessed and spectral Doppler was utilized to determine the flow velocities and pressure gradients reported in this exam. MEASUREMENTS: Value Indexed Normal Max aortic dimension 3.7 cm Ao < 3.8 Left atrial volume 56 ml (4ch A-L) 25 ml/m Juliane <= 34 LV ID (diastole) 5.1 cm (2D) 2.26 cm/m LV ID (systole) 3.2 cm (2D) 1.41 cm/m IVS, leaflet tips 1.6 cm (2D) Posterior wall thickness 1.2 cm (2D) Left ventricular mass 305 g (2D) 135 g/m LV stroke volume 66 ml (2D biplane) LV end diastolic volume 117 ml (2D biplane) 51.8 ml/m 34<=EDVi<75 LV end systolic volume 51 ml (2D biplane) 22.7 ml/m Ejection Fraction 56 % (2D biplane) EF > 52 FINDINGS: LEFT VENTRICLE The left ventricle is normal in size. There is mild left ventricular hypertrophy. Left ventricular systolic function is normal. Mitral annular lateral E/e': 7.3. Mitral annular septal E/e': 9.1. Definity contrast used for endocardial border detection. Wall Motion: Rest: All scored segments are normal. Low dose: All scored segments are normal. Peak dose: All scored segments are normal. RIGHT VENTRICLE The right ventricle is normal in size. Right ventricular systolic function is normal. RV systolic tissue Doppler velocity is 7.2 cm/s. Estimated right ventricular systolic pressure is not reported due to an insufficient tricuspid regurgitation signal. Estimated right atrial pressure is 3 mmHg (although IVC not seen). LEFT ATRIUM The left atrial cavity is normal in size. RIGHT ATRIUM The right atrial cavity is normal in size. MITRAL VALVE The mitral valve leaflets are structurally normal. There is mild (1+) mitral valve regurgitation. The pressure half time is 64 msec. The peak mitral E/A ratio is 1.11. The average mitral E/e' ratio is 8.2. The mitral flow deceleration time is 221 msec. TRICUSPID VALVE The tricuspid valve leaflets are structurally normal. There is trace tricuspid valve regurgitation. AORTIC VALVE The aortic valve cusps are structurally normal. There is no aortic valve regurgitation. Tricuspid aortic valve. The peak gradient is 5 mmHg (peak velocity = 108.8 cm/s). PULMONIC VALVE There is trace pulmonic valve regurgitation. The peak gradient is 5 mmHg. AORTA The visualized aorta is normal in size. Measurements - Sinus: 3.7 cm. PERICARDIUM There is no pericardial effusion. There is an epicardial fat pad. CORONARY ARTERIES The coronary arteries are unseen or not interrogated. DOBUTAMINE STRESS ECHO Stress protocol consisted of dobutamine up to 40 mcg/kg/min with hand expert medical writer and atropine. Rest HR 66 bpm. Peak HR 141 bpm. (93 % MPHR) Rest BP 149 mmHg/76 mmHg. Peak BP 146 mmHg/59 mmHg. The left ventricular cavity size is decreased with stress. CONCLUSIONS: - Exam indication: Pre-Op Lung Surg. - The dobutamine stress echo was negative for ischemia at 93 % of MPHR. - The left ventricle is normal in size. There is mild left ventricular hypertrophy. Left ventricular systolic function is normal. EF = 56 5% (2D biplane) Definity contrast used for endocardial border detection. - The right ventricle is normal in size. Right ventricular systolic function is normal. - There are no significant valvular abnormalities. - Exam was compared with the prior CC echocardiographic exam performed on 08/17/2022 (OR Post PRANAV). Similar findings. Final ---- Stress ECG Report: Dobutamine Stress [facility] J1-5 Date of service: 02/25/2025 9:00:19 AM MANAGER Ordering physician: ELLIOT LYMAN applied behavior specialist: Sarah Richard Fellow: Naty Allen MD Interpreting physician: Zhang Conner MD Patient name: MR. YARI Joyce NANCYZABRINA MRN (more content not included)... Normal [facility] Anion gap in Serum or Plasma Ordered By: Martha Kim on 02-24-2025 Anion gap [Moles/Vol] 13 mmol/L 5- [facility] BUN/creatinine ratioOrdered By: Martha Kim on 02-24-2025 Urea nitrogen/Creatinine [Mass ratio] 15.3 mg/mg 10- [facility] Bilirubin, totalOrdered By: Martha Kim on 02-24-2025 Bilirubin [Mass/Vol] 0.29 mg/dL 0.00-1.30 [facility] JESSICAYARI Joyce ([id number]) 1955 M Date Time Provider Department 02/24/25 RYANN WARNER During your visit today, we recorded the following information about you: Ryann Warner, ELIEZER 02/24/2025 9:30 AM Signed ECHO LAB TELEPHONE INSTRUCTIONS: Learning Response: Instructions provided to: Patient Procedure: Dobutamine Stress Echo Pre procedure education topics: Arrival time, NPO status, and Medications Instructions/Restrictio ns Hold beta gideon (metoprolol) Patient/Family Response Evaluation: Verbalizes understanding Follow Up Plan and Medication: As directed by physician Instruction/Supplementa l Material Given: Appointment Information and Procedure/Test Specific Information: Dobutamine Stress Echo Test Instructed By Ryann Warner RN. In Department of CARDIOLOGY. Allergies As of Date: 02/24/2025 Noted Allergy Reaction PENICILLINS 12/26/2010 7 - Swelling Date Reviewed: 02/12/2025 Reviewed by: Vanessa Ha MA - Fully Assessed Reason for Visit: Patient Education [91] Cmt: DSE Instructions - test scheduled 02/25/25 Prescriptions as of 02/24/2025 - predniSONE (DELTASONE) 10 mg tablet Take [...] once daily. Problem List As Of Date 02/24/2025 Noted Resolved Coronary arteriosclerosis in crow artery [I25*12/14/2013 Chest discomfort [R07.89] 12/14/2013 08/16/2022 Heart murmur, systolic [R01.1] 12/14/2013 08/16/2022 SOB (shortness of breath) on exertion [R06.02] 12/14/2013 08/16/2022 Fatigue [R53.83] 12/14/2013 08/16/2022 Hyperlipidemia LDL goal <70 [E78.5] 07/25/2016 Tobacco abuse [Z72.0] 07/25/2016 Essential hypertension [I10] 01/17/2017 S/P CABG x 4 [Z95.1] 03/10/2020 Aortic dissection (HCC) [I71.00] 08/16/2022 Nicotine use disorder, F17.2 [F17.200] 08/17/2022 Obesity, Class I, BMI 30-34.9 [E66.811] 08/17/2022 On mechanically assisted ventilation (HCC) [Z99*08/18/2022 08/18/2022 CAD (coronary artery disease) [I25.10] 08/18/2022 Postoperative pain [G89.18] 08/18/2022 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/18/2022 Coagulopathy (HCC) [D68.9] 08/18/2022 08/20/2022 MISTY (obstructive sleep apnea) [G47.33] 08/18/2022 Pulmonary edema, acute (HCC) [J81.0] 08/20/2022 08/21/2022 Encounter for support and coordination of trans*08/20/2022 Encounter Status:Closed by RYANN WARNER on 02/24/25 Normal [facility] Carbon dioxide, total [Moles /volume] in Central venous bloodOrdered By: Martha Kim on 02-24-2025 CO2 [Moles/Vol] 20.4 mmol/L Low 21.0-32.0 [facility] Chloride assayOrdered By: Damien Kim on 02-24-2025 Chloride [Moles/Vol] 104 mmol/L 98-108 [facility] Comprehensive Metabolic Prof ilon 02-24-2025 Albumin [Mass/Vol] 4.2 g/dL Normal 3.4-4.8 [facility] Comment on above: Performed By: #### L [id number] #### [facility] [address] [place], [address] Albumin/Globulin [Mass ratio] 1.9 {ratio} Normal 0.9-2.4 [facility] Comment on above: Performed By: #### L [id number] #### [facility] [address] [place], [address] ALK PHOS 88 U/L Normal 40-129 [facility] Comment on above: Performed By: #### L [id number] #### [facility] [address] [place], [address] ALT [Catalytic activity/Vol] 26 U/L Normal <=46 [facility] Comment on above: Performed By: #### L [id number] #### [facility] [address] [place], [address] AST [Catalytic activity/Vol] 21 U/L Normal <=37 [facility] Comment on above: Performed By: #### L [id number] #### [facility] [address] [place], [address] Bilirubin [Mass/Vol] 0.29 mg/dL Normal 0.00-1.30 [facility] Comment on above: Performed By: #### [id number] #### [facility] [address] [place], [address] BUN/CRE 15.3 RATIO Normal 10-20 [facility] Comment on above: Performed By: #### [id number] #### [facility] [address] [place], [address] Calcium [Mass/Vol] 9.3 mg/dL Normal 7.6-11.0 [facility] Comment on above: Performed By: #### [id number] #### [facility] [address] [place], [address] Chloride [Moles/Vol] 104 mmol/L Normal 98-108 [facility] Comment on above: Performed By: #### L [id number] #### [facility] [address] [place], [address] CO2 [Moles/Vol] 20.4 mmol/L Low 21.0-32.0 [facility] Comment on above: Performed By: #### L [id number] #### [facility] [address] [place], [address] Creatinine [Mass/Vol] 0.98 mg/dL Normal 0.70-1.20 [facility] Comment on above: Performed By: #### [id number] #### [facility] [address] [place], [address] GAP 13 Normal 5-15 [facility] Comment on above: Performed By: #### L [id number] #### [facility] [address] [place], [address] GFR/1.73 sq M.predicted among non-blacks MDRD (S/P/Bld) [Vol rate/Area] 84 mL/min/{1.73_m2} Normal >60 [facility] Comment on above: Result Comment: mL/m in/1.73m2 CKD-EPI Creatinine Equation (2020) Performed By: #### L [id number] #### [facility] [address] [place], [address] Globulin (S) [Mass/Vol] 2.3 g/dL Normal 2.2-4.2 [facility] Comment on above: Performed By: #### [id number] #### [facility] [address] [place], [address] Glucose [Mass/Vol] 190 mg/dL High 70-99 [facility] Comment on above: Performed By: #### [id number] #### [facility] [address] [place], [address] Potassium [Moles/Vol] 4.3 mmol/L Normal 3.3-5.1 [facility] Comment on above: Performed By: #### [id number] #### [facility] [address] [place], [address] Sodium [Moles/Vol] 138 mmol/L Normal 133-145 [facility] Comment on above: Performed By: #### L [id number] #### [facility] [address] [place], [address] T PROT 6.5 g/dL Normal 5.9-8.4 [facility] Comment on above: Performed By: #### L [id number] #### [facility] [address] [place], [address] Urea nitrogen [Mass/Vol] 15 mg/dL Normal 4-19 [facility] Comment on above: Performed By: #### L [id number] #### [facility] [address] [place], [address] GFR/1.73 sq M.predicted opal g non-blacks MDRD (S/P/Bld) [Vol rate/Area]Ordered By: Martha Kim on 02-24-2025 Estimated GFR (MDRD) Non-Af Amer 84 >60 [facility] Comment on above: mL/min/1.73m2 CKD-EP I Creatinine Equation (2020) Glomerular filtration rate ( GFR) estimation/1.73 sq m using serum, plasma, or whole bOrdered By: Martha Kim on 02-24-2025 GFR/1.73 sq M.predicted among non-blacks MDRD (S/P/Bld) [Vol rate/Area] 84 mL/min/{1.73_m2} >60 [facility] Comment on above: mL/min/1.73m2 CKD-EP I Creatinine Equation (2020) Laboratory - Chemistry and C hemistry - challengeOrdered By: Martha Kim on 02-24-2025 AST [Catalytic activity/Vol] 21 U/L <38 [facility] Potassium (Unsp spec) [Mass/ Vol]Ordered By: Martha Kim on 02-24-2025 Potassium [Moles/Vol] 4.3 mmol/L 3.3-5.1 [facility] Potassium measurement (mass/ volume)Ordered By: Martha Kim on 02-24-2025 Potassium (Unsp spec) [Mass/Vol] 4.3 mmol/L 3.3-5.1 [facility] Serum creatinine measurement (mass/volume)Ordered By: Martha Kim on 02-24-2025 Creatinine [Mass/Vol] 0.98 mg/dL 0.70-1.20 [facility] Serum globulin measurementOr dered By: Martha Kim on 02-24-2025 Globulin (S) [Mass/Vol] 2.3 g/dL 2.2-4.2 [facility] Serum glucose measurement (m ass/volume)Ordered By: Martha Kim on 02-24-2025 Glucose [Mass/Vol] 190 mg/dL High 70-99 [facility] Serum or plasma alanine overton otransferase (ALT) measurementOrdered By: Martha Kim on 02-24-2025 ALT [Catalytic activity/Vol] 26 U/L <47 [facility] Serum or plasma albumin camilo urement (mass/volume)Ordered By: Martha Kim on 02-24-2025 Albumin [Mass/Vol] 4.2 g/dL 3.4-4.8 [facility] Serum or plasma albumin/glob ulin mass ratioOrdered By: Martha Kim on 02-24-2025 Albumin/Globulin [Mass ratio] 1.9 {ratio} 0.9-2.4 [facility] Serum or plasma alkaline balaji sphatase measurementOrdered By: Martha Kim on 02-24-2025 ALP [Catalytic activity/Vol] 88 U/L 40-129 [facility] Serum or plasma calcium camilo urement (mass/volume)Ordered By: Martha Kim on 02-24-2025 Calcium [Mass/Vol] 9.3 mg/dL 7.6-11.0 [facility] Serum or plasma urea nitroge n measurement (mass/volume)Ordered By: Martha Kim on 02-24-2025 Urea nitrogen [Mass/Vol] 15 mg/dL 4-19 [facility] Sodium levelOrdered By: Laquita Kim on 02-24-2025 Sodium [Moles/Vol] 138 mmol/L 133-145 [facility] Total proteinOrdered By: Jude iKm on 02-24-2025 Protein [Mass/Vol] 6.5 g/dL 5.9-8.4 [facility] CNPNon 02-23-2025 [facility] Telephone (GOPI) YARI LOPEZ ([id number]) 1955 M Date Time Provider Department 02/23/25 ELLIOT LYMAN During your visit today, we recorded the following information about you: Bel Moscoso 02/23/2025 10:25 AM Signed Received call from pt stating Dr. Lyman wanted him to have a chemical stress test, pt states he called [place] and their 1st available was 03/17; pt is scheduled to see Dr. Lyman 03/05, pt asks if his appts on 03/05 would need to be rescheduled. Please review and advise, pt can be reached at [phone] Bel Moscoso, administrative executive Allergies As of Date: 02/23/2025 Noted Allergy Reaction PENICILLINS 12/26/2010 7 - Swelling Date Reviewed: 02/12/2025 Reviewed by: Vanessa Ha MA - Fully Assessed Reason for Visit: Patient Question [3037] Prescriptions as of 02/23/2025 - predniSONE (DELTASONE) 10 mg tablet Take [...] once daily. Problem List As Of Date 02/23/2025 Noted Resolved Coronary arteriosclerosis in crow artery [I25*12/14/2013 Chest discomfort [R07.89] 12/14/2013 08/16/2022 Heart murmur, systolic [R01.1] 12/14/2013 08/16/2022 SOB (shortness of breath) on exertion [R06.02] 12/14/2013 08/16/2022 Fatigue [R53.83] 12/14/2013 08/16/2022 Hyperlipidemia LDL goal <70 [E78.5] 07/25/2016 Tobacco abuse [Z72.0] 07/25/2016 Essential hypertension [I10] 01/17/2017 S/P CABG x 4 [Z95.1] 03/10/2020 Aortic dissection (HCC) [I71.00] 08/16/2022 Nicotine use disorder, F17.2 [F17.200] 08/17/2022 Obesity, Class I, BMI 30-34.9 [E66.811] 08/17/2022 On mechanically assisted ventilation (HCC) [Z99*08/18/2022 08/18/2022 CAD (coronary artery disease) [I25.10] 08/18/2022 Postoperative pain [G89.18] 08/18/2022 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/18/2022 Coagulopathy (HCC) [D68.9] 08/18/2022 08/20/2022 MISTY (obstructive sleep apnea) [G47.33] 08/18/2022 Pulmonary edema, acute (HCC) [J81.0] 08/20/2022 08/21/2022 Encounter for support and coordination of trans*08/20/2022 Encounter Status:Closed by BEL MOSCOSO on 02/23/25 [facility] CNOVon 02-12-2025 CNOV Office Visit (GOPI ) YARI LOPEZ ([id number]) 1955 M Date Time Provider Department 02/12/25 11:20 AM ELLIOT LYMAN During your visit today, we recorded the following information about you: Temperature Pulse Respiration Blood pressure 98 degrees 62/minute 14/minute 141/69 Weight Height 100.9 kg 1.803 m Elliot Lyman MD, PhD 02/12/2025 2:30 PM Unsigned Component Overhaul Operator [place] [address] [place] DEPARTMENT OF THORACIC AND CARDIOVASCULAR SURGERY NAME: YARI LOPEZ CLINIC #: [id number] DATE: 02/12/2025 AGE: 69 PHYSICIAN: Elliot Lyman M.D., Ph.D. I had the sincere pleasure of meeting with the patient and his family in my Thoracic Surgery Clinic. This very pleasant 69-year-old heavy smoker until the last 3 weeks of cessation, was seen today for an opinion regarding an evolving non-small cell lung cancer in his right upper lobe. Medical history and review of systems have been studied. I have also independently reviewed images of a fused PET-CT scan as well as CT scans dating back several years. I have assessed pulmonary function testing including walk oximetry, DLCO, and spirometry and have assessed the patient and shared my thoughts with the patient and his in detail. In brief, this very heavy smoker with very recent cessation has a 50-pack year tobacco use history. He quit 3 weeks ago. He has a history of peripheral vascular disease including coronary artery disease. He has had an aortic dissection and a CABG. He has also had left carotid artery stenosis and a bypass, all of which within the last 5 years. He had a nodule noted on a CT scan done for aortic surveillance some 2 years ago and this nodule has increased in size by approximately 2.5 to 3 fold when recently viewed in October of this past year. A transbronchial biopsy shows adenocarcinoma of the right upper lobe and multiple local lymph node stations were negative. His PET scan is really quite unremarkable. The lesion itself is quite patchy and does have a ground-glass component. Like stated it is nominally active on his PET scan, which I have independently reviewed. Overall, the patient does have significant pulmonary disease. He has a gas exchange problem with a DLCO of just over 50% and some element of obstructive lung disease. His CT scans demonstrate significant emphysematous changes and interstitial reticular changes in the right upper lobe, far greater than in the right lower or right middle lobe. He has no quantitative perfusion scans. He walked less than a 1000 feet without desaturating, but this may have been an effort issue. He claims he can walk over 2 miles without being short of breath and that will be something which will have to be rechecked. IMPRESSION: Slowly evolving right upper lobe non-small cell lung cancer in a former very heavy smoker with a fair pulmonary function test. He has an ECOG performance status zero, but will need to demonstrate some improvement in walk oximetry and prehabilitation. The patient does have some time to improve his vitality for possible operative intervention, which would be a right upper lobe, which would be a right upper lobectomy based on the location of the lesion. He will begin to briskly exercise himself and has from tobacco now 3 weeks ago. I will likely retest him and also may perform a quantitative CT scan as well as a quantitative perfusion scan. Consideration for a CPEX study will also be given. I will finally re walk him in approximately 3 weeks to assess his level of fitness at that time, so that a treatment decision can be made. Elliot Lyman M.D., Ph.D. SM:[id number] /[id number] Emery Hernandez MD 02/19/2025 8:59 AM Signed [facility] THORAC[facility] SURGERY OUTPATIENT CONSULT NOTE Yari Lopez [id number] Requesting Provider: Dalia Augustine MD Thoracic Physician: Elliot Lyman MD Chief Complaint: Lung mass Impression: 69M with biopsy proven 2.5 cm adenocarcinoma of the RUL. Plan: - Will need repeat 6 min walk, possibly VQ scan to further assess pulmonary function - Needs cardiac stress testing - Will discuss treatment plan, pending further testing in about 3 weeks SIGNATURE: Emery Hernandez MD PAGER: [phone] DATE of SERVICE: 02/12/2025 TIME of SERVICE: 11:01 AM HPI: Yari Lopez is a 69 year old White male referred by Dalia Augustine MD for an opinion regarding management of Lung Nodule. His hsitory is notable for Type A aortic dissection s/p repair (), four vessel CABG (03/08/2020), former smoker, left carotid artery stenosis s/p bypass in 01/2024, HTN, HLD CT chest obtained in 2021 for aortic surveillance showed a 1cm RUL nodule, which has increased in size (more content not included)... Normal [facility] Albumin DL <= 20 mg/L (U) [M ass/Vol]Ordered By: Tania West on 02-05-2025 Urine Random Microalbumin < 12.0 mg/L NO RANGE EST. [facility] Creatinine Unsp time (U) [Ma ss/Vol]Ordered By: Tania West on 02-05-2025 Creatinine (U) [Mass/Vol] 133.00 mg/dL 39.00-259.00 [facility] Microalb:Creat Ratio,Random URon 02-05-2025 Creatinine [Mass/Vol] 133.00 mg/dL Normal 39.00-259.00 [facility] Comment on above: Performed By: #### L [id number] #### [facility] [address] [place], [place], [address] MALB:CREAT UNABLE TO CALCULATE Normal [facility] Comment on above: Performed By: #### L [id number] #### [facility] [address] [place], [place], [address] MICROALBUMIN,UR < 12.0 Normal NO RANGE EST. [facility] Comment on above: Performed By: #### L [id number] #### [facility] [address] [place], [place], [id number] Microalbumin/creat ratio urO rdered By: Tania West on 02-05-2025 Urine Microalbumin/Creatinine Ratio UNABLE TO CALCULATE mg/g CRE [facility] Urine microalbumin/creatinine ratio measurement UNABLE TO CALCULATE mg/g CRE [facility] Random urine creatinine camilo urement (mass/volume)Ordered By: Tania West on 02-05-2025 Creatinine Unsp time (U) [Mass/Vol] 133.00 mg/dL 39.00-259.00 [facility] Urine albumin measurement wi th detection limit of 20 mg/L or less (mass/volume)Ordered By: Tania West on 02-05-2025 Albumin DL <= 20 mg/L (U) [Mass/Vol] < 12.0 mg/L NO RANGE EST. [facility] NM PET/CT SKULL-THIGH INITon 01-28-2025 NM PET/CT SKULL-THIGH INIT * * *Final Report* * * DATE OF EXAM: Jan 28 2025 10:16AM GRP 0060 - NM PET/CT SKULL-THIGH INIT / PROCEDURE REASON: Neoplasm of lung * * * * Physician Interpretation * * * * EXAMINATION: BODY FDG PET-CT CLINICAL HISTORY: 69-year-old male recently diagnosed with invasive adenocarcinoma on biopsy of right upper lobe nodule.. EXAM CATEGORY: Initial treatment strategy. TECHNIQUE: Radiopharmaceutical was administered intravenously followed by PET imaging from the eyes to thighs. Free breathing, low dose CT of the same body region was acquired without IV contrast for attenuation correction and anatomic localization. Unenhanced imaging is limited for the evaluation of some pathology and the acquired CT was not designed to produce diagnostic CT scan quality. Physiologic/non-patholo gic uptake in some body regions could confound or obscure some pathology. * CT Dose-Length Product (DLP): 262 mGy*cm * CT Dose Reduction Employed: Yes * Blood glucose: 112 mg/dL * Injection site: Right Forearm-Antecubital * Injected activity: 14.3 mCi * Uptake Time: 74 minutes * Radiopharmaceutical: I99-Vrqlwieowdawszadwv (FDG) COMPARISON: No previous FDG PET/CT available CORRELATION: CT chest 12/28/2024 RESULT: REFERENCES: FDG uptake is used as a surrogate marker for glucose metabolism. All reported standardized uptake values represent maximum SUV (SUVmax) per body weight, unless otherwise specified. SUV reference values, as follows: * Blood Pool (Descending Aorta): SUVmax 1.1 * Background Liver: SUVmax 2.0; SUVmean 1.2 Localizer Images: No additional findings. HEAD AND NECK: Head: No radiotracer avid lesion or mass effect in the imaged intracranial compartment. Aerodigestive Tract: No radiotracer avid lesion. Lymph Nodes: No radiotracer avid lymphadenopathy. Neck Soft Tissues: No radiotracer avid thyroid nodule. CHEST: Lungs and Pleura: 2.6 x 2.3 cm partly solid right upper lobe lung nodule with mild uptake SUV max 1.1 (3:102). Moderate upper lobe predominant centrilobular emphysema. Numerous nonavid small lung nodules below PET resolution. Lymph Nodes: No radiotracer avid lymphadenopathy. Mediastinum: No radiotracer avid mass. Cardiovascular: Blood pool activity. No pericardial effusion. Normal heart size. Coronary artery calcifications. Enlarged left atrium. Status post CABG. Chest Wall: No radiotracer avid soft tissue lesion. ABDOMEN AND PELVIS: Hepatobiliary: No radiotracer avid lesion. No measurable mass. Spleen: No radiotracer avid lesion. No splenomegaly. Pancreas: No radiotracer avid lesion. Adrenals: No radiotracer avid nodule. Urinary Tract: Physiologic radiotracer excretion in the renal collecting systems and urinary bladder. No hydronephrosis. GI Tract: No radiotracer avid lesion. No bowel dilation. Peritoneum: No radiotracer avid lesion. No ascites. Lymph Nodes: No radiotracer avid lymphadenopathy. Vasculature: Blood pool activity. Abdominal aortic atherosclerotic calcifications without aneurysm. Pelvic Organs: No radiotracer avid lesion. MUSCULOSKELETAL: Bones: No radiotracer avid lesion. No lytic or sclerotic lesion. Degenerative changes. Soft Tissues: No radiotracer avid lesion. IMPRESSION PRIMARY DISEASE SITE: * Partially solid right upper lobe lung nodule with mild uptake correlating with known primary. * Numerous bilateral nonavid small lung nodules below PET resolution. CARLY DISEASE: * No metabolically active regional lymphadenopathy. METASTATIC DISEASE: * No metabolically active distant metastases. [employer] Developer: PSCB Transcribe Date/Time: Jan 28 2025 3:28P Dictated by : CAROLINE ZENG MD This examination was interpreted and the report reviewed and electronically signed by: CAROLINE ZENG MD on Jan 28 2025 3:43PM EST [id number] Normal [facility] PET+CT Guidance for localiza tion of tumor of Skull base to mid-thigh-- W 18F-FDG Deisy 01-28-2025 * * *Final Report* * * DATE OF EXAM: Jan 28 2025 10:16AM GRP 0060 - NM PET/CT SKULL-THIGH INIT / PROCEDURE REASON: Neoplasm of lung * * * * Physician Interpretation * * * * EXAMINATION: BODY FDG PET-CT CLINICAL HISTORY: 69-year-old male recently diagnosed with invasive adenocarcinoma on biopsy of right upper lobe nodule.. EXAM CATEGORY: Initial treatment strategy. TECHNIQUE: Radiopharmaceutical was administered intravenously followed by PET imaging from the eyes to thighs. Free breathing, low dose CT of the same body region was acquired without IV contrast for attenuation correction and anatomic localization. Unenhanced imaging is limited for the evaluation of some pathology and the acquired CT was not designed to produce diagnostic CT scan quality. Physiologic/non-patholo gic uptake in some body regions could confound or obscure some pathology. * CT Dose-Length Product (DLP): 262 mGy*cm * CT Dose Reduction Employed: Yes * Blood glucose: 112 mg/dL * Injection site: Right Forearm-Antecubital * Injected activity: 14.3 mCi * Uptake Time: 74 minutes * Radiopharmaceutical: [id number] (FDG) COMPARISON: No previous FDG PET/CT available CORRELATION: CT chest 12/28/2024 RESULT: REFERENCES: FDG uptake is used as a surrogate marker for glucose metabolism. All reported standardized uptake values represent maximum SUV (SUVmax) per body weight, unless otherwise specified. SUV reference values, as follows: * Blood Pool (Descending Aorta): SUVmax 1.1 * Background Liver: SUVmax 2.0; SUVmean 1.2 Localizer Images: No additional findings. HEAD AND NECK: Head: No radiotracer avid lesion or mass effect in the imaged intracranial compartment. Aerodigestive Tract: No radiotracer avid lesion. Lymph Nodes: No radiotracer avid lymphadenopathy. Neck Soft Tissues: No radiotracer avid thyroid nodule. CHEST: Lungs & Pleura: 2.6 x 2.3 cm partly solid right upper lobe lung nodule with mild uptake SUV max 1.1 (3:102). Moderate upper lobe predominant centrilobular emphysema. Numerous nonavid small lung nodules below PET resolution. Lymph Nodes: No radiotracer avid lymphadenopathy. Mediastinum: No radiotracer avid mass. Cardiovascular: Blood pool activity. No pericardial effusion. Normal heart size. Coronary artery calcifications. Enlarged left atrium. Status post CABG. Chest Wall: No radiotracer avid soft tissue lesion. ABDOMEN AND PELVIS: Hepatobiliary: No radiotracer avid lesion. No measurable mass. Spleen: No radiotracer avid lesion. No splenomegaly. Pancreas: No radiotracer avid lesion. Adrenals: No radiotracer avid nodule. Urinary Tract: Physiologic radiotracer excretion in the renal collecting systems and urinary bladder. No hydronephrosis. GI Tract: No radiotracer avid lesion. No bowel dilation. Peritoneum: No radiotracer avid lesion. No ascites. Lymph Nodes: No radiotracer avid lymphadenopathy. Vasculature: Blood pool activity. Abdominal aortic atherosclerotic calcifications without aneurysm. Pelvic Organs: No radiotracer avid lesion. MUSCULOSKELETAL: Bones: No radiotracer avid lesion. No lytic or sclerotic lesion. Degenerative changes. Soft Tissues: No radiotracer avid lesion. IMPRESSION PRIMARY DISEASE SITE: * Partially solid right upper lobe lung nodule with mild uptake correlating with known primary. * Numerous bilateral nonavid small lung nodules below PET resolution. CARLY DISEASE: * No metabolically active regional lymphadenopathy. METASTATIC DISEASE: * No metabolically active distant metastases. [employer] Developer: SILVESTRE Transcribe Date/Time: Jan 28 2025 3:28P Dictated by : CAROLINE ZENG MD This examination was interpreted and the report reviewed and electronically signed by: CAROLINE ZENG MD on Jan 28 2025 3:43PM [facility] Provider, [facility] - 01/28/2025 * * *Final Report* * * DATE OF EXAM: Jan 28 2025 10:16AM GRP 0060 - NM PET/CT SKULL-THIGH INIT / PROCEDURE REASON: Neoplasm of lung * * * * Physician Interpretation * * * * EXAMINATION: BODY FDG PET-CT CLINICAL HISTORY: 69-year-old male recently diagnosed with invasive adenocarcinoma on biopsy of right upper lobe nodule.. EXAM CATEGORY: Initial treatment strategy. TECHNIQUE: Radiopharmaceutical was administered intravenously followed by PET imaging from the eyes to thighs. Free breathing, low dose CT of the same body region was acquired without IV contrast for attenuation correction and anatomic localization. Unenhanced imaging is limited for the evaluation of some pathology and the acquired CT was not designed to produce diagnostic CT scan quality. Physiologic/non-patholo gic uptake in some body regions could confound or obscure some pathology. * CT Dose-Length Product (DLP): 262 mGy*cm * CT Dose Reduction Employed: Yes * Blood glucose: 112 mg/dL * Injection site: Right Forearm-Antecubital * Injected activity: 14.3 mCi * Uptake Time: 74 minutes * Radiopharmaceutical: [id number] (FDG) COMPARISON: No previous FDG PET/CT available CORRELATION: CT chest 12/28/2024 RESULT: REFERENCES: FDG uptake is used as a surrogate marker for glucose metabolism. All reported standardized uptake values represent maximum SUV (SUVmax) per body weight, unless otherwise specified. SUV reference values, as follows: * Blood Pool (Descending Aorta): SUVmax 1.1 * Background Liver: SUVmax 2.0; SUVmean 1.2 Localizer Images: No additional findings. HEAD AND NECK: Head: No radiotracer avid lesion or mass effect in the imaged intracranial compartment. Aerodigestive Tract: No radiotracer avid lesion. Lymph Nodes: No radiotracer avid lymphadenopathy. Neck Soft Tissues: No radiotracer avid thyroid nodule. CHEST: Lungs & Pleura: 2.6 x 2.3 cm partly solid right upper lobe lung nodule with mild uptake SUV max 1.1 (3:102). Moderate upper lobe predominant centrilobular emphysema. Numerous nonavid small lung nodules below PET resolution. Lymph Nodes: No radiotracer avid lymphadenopathy. Mediastinum: No radiotracer avid mass. Cardiovascular: Blood pool activity. No pericardial effusion. Normal heart size. Coronary artery calcifications. Enlarged left atrium. Status post CABG. Chest Wall: No radiotracer avid soft tissue lesion. ABDOMEN AND PELVIS: Hepatobiliary: No radiotracer avid lesion. No measurable mass. Spleen: No radiotracer avid lesion. No splenomegaly. Pancreas: No radiotracer avid lesion. Adrenals: No radiotracer avid nodule. Urinary Tract: Physiologic radiotracer excretion in the renal collecting systems and urinary bladder. No hydronephrosis. GI Tract: No radiotracer avid lesion. No bowel dilation. Peritoneum: No radiotracer avid lesion. No ascites. Lymph Nodes: No radiotracer avid lymphadenopathy. Vasculature: Blood pool activity. Abdominal aortic atherosclerotic calcifications without aneurysm. Pelvic Organs: No radiotracer avid lesion. MUSCULOSKELETAL: Bones: No radiotracer avid lesion. No lytic or sclerotic lesion. Degenerative changes. Soft Tissues: No radiotracer avid lesion. IMPRESSION PRIMARY DISEASE SITE: * Partially solid right upper lobe lung nodule with mild uptake correlating with known primary. * Numerous bilateral nonavid small lung nodules below PET resolution. CARLY DISEASE: * No metabolically active regional lymphadenopathy. METASTATIC DISEASE: * No metabolically active distant metastases. [employer] Developer: SILVESTRE Transcribe Date/Time: Jan 28 2025 3:28P Dictated by : CAROLINE ZENG MD This examination was interpreted and the report reviewed and electronically signed by: CAROLINE ZENG MD on Jan 28 2025 3:43PM EST [facility] Radiology Study observation (narrative) [facility] PET+CT Guidance for localiza tion of tumor of Skull base to mid-thigh-- W 18F-FDG IVOrdered By: [facility] Provider on 01-28-2025 [facility] Non-gynecologic cytology rep ortOrdered By: Miah Thompson on 01-26-2025 Study report [facility] Other Phone: Absolute lymphocyte countOrd ered By: Martha Kim on 01-25-2025 Lymphocytes Auto (Unsp spec) [#/Vol] 1.87 10*3/uL 0.83-4.51 [facility] Absolute neutrophil countOrd ered By: Martha Kim on 01-25-2025 Neutrophils (Bld) [#/Vol] 4.4 10*3/uL 2.0-7.7 [facility] Anion gap in Serum or Plasma Ordered By: Martha Kim on 01-25-2025 Anion gap [Moles/Vol] 11 mmol/L 5- [facility] Automated lymphocyte count a s percentage of total leukocytesOrdered By: Martha Kim on 01-25-2025 Lymphocytes/100 WBC Auto (Unsp spec) 25.4 % [facility] BUN/creatinine ratioOrdered By: [facility] Julio on 01-25-2025 Urea nitrogen/Creatinine [Mass ratio] 14.2 mg/mg 09-06 [facility] Basophil percentageOrdered B y: Martha Kim on 01-25-2025 Basophils/100 WBC (Bld) 1.5 % High 0-1 [facility] Bilirubin, totalOrdered By: Martha Kim on 01-25-2025 Bilirubin [Mass/Vol] 0.29 mg/dL 0.00-1.30 [facility] CBC W/Diff, Automatedon 01-16 Absolute Lymph 1.87 X10 3/uL Normal 0.83-4.51 [facility] Comment on above: Performed By: #### L [id number], L100.0100 #### [facility] [address] [place], [address] Absolute Neut 4.4 X10 3/uL Normal 2.0-7.7 [facility] Comment on above: Performed By: #### L [id number], L100.0100 #### [facility] [address] [place], [address] Basophils/100 WBC (Bld) 1.5 % High 0-1 [facility] Comment on above: Performed By: #### L [id number], L100.0100 #### [facility] [address] [place], [address] Eosinophils/100 WBC (Bld) 6.5 % High 0-5 [facility] Comment on above: Performed By: #### L [id number], L100.0100 #### [facility] [address] [place], [address] Erythrocyte distribution width (RBC) [Ratio] 15.1 % High 11.6-14.6 [facility] Comment on above: Performed By: #### L [id number], L100.0100 #### [facility] [address] [place], [address] Hematocrit (Bld) [Volume fraction] 38.3 % Low 40-54 [facility] Comment on above: Performed By: #### L [id number], L100.0100 #### [facility] [address] [place], [address] Hemoglobin (Bld) [Mass/Vol] 12.9 g/dL Low 13.0-16.5 [facility] Comment on above: Performed By: #### L [id number], L100.0100 #### [facility] [address] [place], [address] IG% 0.300 Normal 0.0-0.9 [facility] Comment on above: Result Comment: IG% - Immature Granulocytes (promyelocytes, myelocytes and metamyelocytes) > 1% indicates that a LEFT SHIFT is Present. Performed By: #### L [id number], L100.0100 #### [facility] [address] [place], [address] Lymphocytes/100 WBC (Bld) 25.4 % Normal 19-41 [facility] Comment on above: Performed By: #### [id number], [id number] #### [facility] [address] [place], [address] MCH (RBC) [Entitic mass] 33.3 pg High 27.0-32.0 [facility] Comment on above: Performed By: #### L [id number], L100.0100 #### [facility] [address] [place], [address] MCHC (RBC) [Mass/Vol] 33.7 g/dL Normal 32-36 [facility] Comment on above: Performed By: #### L [id number], L100.0100 #### [facility] [address] [place], [address] MCV (RBC) [Entitic vol] 99.0 fL High 80-94 [facility] Comment on above: Performed By: #### L [id number], L100.0100 #### [facility] [address] [place], [address] Monocytes/100 WBC (Bld) 7.3 % Normal 0-[address] [facility] Comment on above: Performed By: #### L [id number], L100.0100 #### [facility] [address] [place], [address] Neutrophils/100 WBC (Bld) 59.0 % Normal 47-70 [facility] Comment on above: Performed By: #### L [id number], L100.0100 #### [facility] [address] [place], [address] Nucleated RBC (Bld) [#/Vol] 0 10*3/uL Normal 0-5 [facility] Comment on above: Performed By: #### L [id number], L100.0100 #### [facility] [address] [place], [address] Platelet mean volume (Bld) [Entitic vol] 10.7 fL Normal 6.2-12.0 [facility] Comment on above: Performed By: #### L [id number], L100.0100 #### [facility] [address] [place], [address] Platelets (Bld) [#/Vol] 265 10*3/uL Normal 150-450 [facility] Comment on above: Performed By: #### L [id number], L100.0100 #### [facility] [address] [place], [address] RBC (Bld) [#/Vol] 3.87 10*6/uL Low 4.6-6.2 [facility] Comment on above: Performed By: #### L [id number], L100.0100 #### [facility] [address] [place], [address] RDW SD 54.6 fl High 35.1-43.9 [facility] Comment on above: Performed By: #### L [id number], L100.0100 #### [facility] [address] [place], [address] WBC (Bld) [#/Vol] 7.4 10*3/uL Normal 4.4-11.0 [facility] Comment on above: Performed By: #### L [id number], L100.0100 #### [facility] [address] [place], [address] Carbon dioxide, total [Moles /volume] in Central venous bloodOrdered By: Martha Kim on 01-25-2025 CO2 [Moles/Vol] 25.0 mmol/L 21.0-32.0 [facility] Chloride assayOrdered By: Damien Kim on 01-25-2025 Chloride [Moles/Vol] 104 mmol/L 98-108 [facility] Comprehensive Metabolic Prof ilon 01-25-2025 Albumin [Mass/Vol] 4.3 g/dL Normal 3.4-4.8 [facility] Comment on above: Performed By: #### L [id number], L100.0100 #### [facility] [address] [place], [address] Albumin/Globulin [Mass ratio] 1.7 {ratio} Normal 0.9-2.4 [facility] Comment on above: Performed By: #### L [id number], L100.0100 #### [facility] [address] [place], [address] ALK PHOS 97 U/L Normal 40-129 [facility] Comment on above: Performed By: #### L [id number], L100.0100 #### [facility] [address] [place], [address] ALT [Catalytic activity/Vol] 51 U/L High <=46 [facility] Comment on above: Performed By: #### L [id number], L100.0100 #### [facility] [address] [place], [address] AST [Catalytic activity/Vol] 39 U/L High <=37 [facility] Comment on above: Performed By: #### L [id number], L100.0100 #### [facility] [address] [place], [address] Bilirubin [Mass/Vol] 0.29 mg/dL Normal 0.00-1.30 [facility] Comment on above: Performed By: #### L [id number], L100.0100 #### [facility] [address] [place], [address] BUN/CRE 14.2 RATIO Normal 10-20 [facility] Comment on above: Performed By: #### L [id number], L100.0100 #### [facility] [address] [place], [address] Calcium [Mass/Vol] 9.8 mg/dL Normal 7.6-11.0 [facility] Comment on above: Performed By: #### L [id number], [id number] #### [facility] [address] [place], [address] Chloride [Moles/Vol] 104 mmol/L Normal 98-108 [facility] Comment on above: Performed By: #### L [id number], L100.0100 #### [facility] [address] [place], [address] CO2 [Moles/Vol] 25.0 mmol/L Normal 21.0-32.0 [facility] Comment on above: Performed By: #### L [id number], L100.0100 #### [facility] [address] [place], [address] Creatinine [Mass/Vol] 1.08 mg/dL Normal 0.70-1.20 [facility] Comment on above: Performed By: #### L [id number], L100.0100 #### [facility] [address] [place], [address] GAP 11 Normal 5-15 [facility] Comment on above: Performed By: #### L [id number], L100.0100 #### [facility] [address] [place], [address] GFR/1.73 sq M.predicted among non-blacks MDRD (S/P/Bld) [Vol rate/Area] 75 mL/min/{1.73_m2} Normal >60 [facility] Comment on above: Result Comment: mL/m in/1.73m2 CKD-EPI Creatinine Equation (2020) Performed By: #### L [id number], L100.0100 #### [facility] [address] [place], [address] Globulin (S) [Mass/Vol] 2.5 g/dL Normal 2.2-4.[address] [facility] Comment on above: Performed By: #### L [id number], L100.0100 #### [facility] [address] [place], [address] Glucose [Mass/Vol] 109 mg/dL High 70-99 [facility] Comment on above: Performed By: #### L [id number], L100.0100 #### [facility] [address] [place], [address] Potassium [Moles/Vol] 4.7 mmol/L Normal 3.3-5.1 [facility] Comment on above: Performed By: #### L [id number], L100.0100 #### [facility] [address] [place], [address] Sodium [Moles/Vol] 140 mmol/L Normal 133-145 [facility] Comment on above: Performed By: #### L [id number], L100.0100 #### [facility] [address] [place], [address] T PROT 6.8 g/dL Normal 5.9-8.4 [facility] Comment on above: Performed By: #### L [id number], L100.0100 #### [facility] [address] [place], [address] Urea nitrogen [Mass/Vol] 15 mg/dL Normal 4-19 [facility] Comment on above: Performed By: #### L [id number], L100.0100 #### [facility] [address] [place], [address] Eosinophil percentageOrdered By: Martha Kmi on 01-25-2025 Eosinophils/100 WBC (Bld) 6.5 % High 0-5 [facility] Erythrocyte distribution wid th ratioOrdered By: Martha Kim on 01-25-2025 Erythrocyte distribution width (RBC) [Ratio] 15.1 % High 11.6-14.6 [facility] Erythrocyte distribution wid th standard deviationOrdered By: Martha Kim on 01-25-2025 Erythrocyte distribution width (RBC) [Entitic vol] 54.6 fL High 35.1-43.9 [facility] Erythrocyte distribution width (RBC) [Ratio] 54.6 fl High 35.1-43.9 [facility] GFR/1.73 sq M.predicted opal g non-blacks MDRD (S/P/Bld) [Vol rate/Area]Ordered By: Martha Kim on 01-25-2025 Estimated GFR (MDRD) Non-Af Amer 75 >60 [facility] Comment on above: mL/min/1.73m2 CKD-EP I Creatinine Equation (2020) Glomerular filtration rate ( GFR) estimation/1.73 sq m using serum, plasma, or whole bOrdered By: Martha Kim on 01-25-2025 GFR/1.73 sq M.predicted among non-blacks MDRD (S/P/Bld) [Vol rate/Area] 75 mL/min/{1.73_m2} >60 [facility] Comment on above: mL/min/1.73m2 CKD-EP I Creatinine Equation (2020) Hematocrit Auto (Bld) [Volum e fraction]Ordered By: Martha Kim on 01-25-2025 Hematocrit (Bld) [Volume fraction] 38.3 % Low 40-54 [facility] Hemoglobin measurementOrdere d By: Martha Kim on 01-25-2025 Hemoglobin (Bld) [Mass/Vol] 12.9 g/dL Low 13.0-16.5 [facility] Immature granulocytes/100 WB C Auto (Bld)Ordered By: Martha Kim on 01-25-2025 Immature granulocytes/100 WBC (Bld) 0.300 % 0.0-0.9 [facility] Comment on above: IG% - Immature Granu locytes (promyelocytes, myelocytes and metamyelocytes) > 1% indicates that a LEFT SHIFT is Present. Laboratory - Chemistry and C hemistry - challengeOrdered By: Martha Kim on 01-25-2025 AST [Catalytic activity/Vol] 39 U/L High <38 [facility] Lymphocytes Auto (Unsp spec) [#/Vol]Ordered By: Martha Kim on 01-25-2025 Lymphocytes (Bld) [#/Vol] 1.87 10*3/uL 0.83-4.51 [facility] Lymphocytes/100 WBC Auto (Un sp spec)Ordered By: Martha Kim on 01-25-2025 Lymphocytes/100 WBC (Bld) 25.4 % 19-41 [facility] MCV (mean corpuscular volume ) determinationOrdered By: Martha Kim on 01-25-2025 MCV (RBC) [Entitic vol] 99.0 fL High 80-94 [facility] Mean corpuscular hemoglobin (MCH) determinationOrdered By: Martha Kim on 01-25-2025 MCH (RBC) [Entitic mass] 33.3 pg High 27.0-32.0 [facility] Mean corpuscular hemoglobin concentration (MCHC) determinationOrdered By: Martha Kim on 01-25-2025 MCHC (RBC) [Mass/Vol] 33.7 g/dL 32-36 [facility] Mean platelet volume determi nationOrdered By: Martha Kim on 01-25-2025 Platelet mean volume (Bld) [Entitic vol] 10.7 fL 6.2-12.0 [facility] Monocyte percentageOrdered B y: Martha Kim on 01-25-2025 Monocytes/100 WBC (Bld) 7.3 % 0-10 [facility] Neutrophil percentageOrdered By: Martha Kim on 01-25-2025 Neutrophils/100 WBC (Bld) 59.0 % 47-70 [facility] Nucleated red blood cell per centageOrdered By: Martha Kim on 01-25-2025 Nucleated RBC/100 WBC (Bld) [Ratio] 0 % 0-5 [facility] Platelet countOrdered By: Damien Kim on 01-25-2025 Platelets (Bld) [#/Vol] 265 10*3/uL 150-450 [facility] Potassium (Unsp spec) [Mass/ Vol]Ordered By: Martha Kim on 01-25-2025 Potassium [Moles/Vol] 4.7 mmol/L 3.3-5.1 [facility] Potassium measurement (mass/ volume)Ordered By: Martha Kim on 01-25-2025 Potassium (Unsp spec) [Mass/Vol] 4.7 mmol/L 3.3-5.1 [facility] RBC Auto (Bld) [#/Vol]Ordere d By: Martha Kim on 01-25-2025 RBC (Bld) [#/Vol] 3.87 10*6/uL Low 4.6-6.2 [facility] Serum creatinine measurement (mass/volume)Ordered By: Martha Kim on 01-25-2025 Creatinine [Mass/Vol] 1.08 mg/dL 0.70-1.20 [facility] Serum globulin measurementOr dered By: Martha Kim on 01-25-2025 Globulin (S) [Mass/Vol] 2.5 g/dL 2.2-4.2 [facility] Serum glucose measurement (m ass/volume)Ordered By: Martha Kim on 01-25-2025 Glucose [Mass/Vol] 109 mg/dL High 70-99 [facility] Serum or plasma alanine overton otransferase (ALT) measurementOrdered By: Martha Kim on 01-25-2025 ALT [Catalytic activity/Vol] 51 U/L High <47 [facility] Serum or plasma albumin camilo urement (mass/volume)Ordered By: Martha Kim on 01-25-2025 Albumin [Mass/Vol] 4.3 g/dL 3.4-4.8 [facility] Serum or plasma albumin/glob ulin mass ratioOrdered By: Martha Kim on 01-25-2025 Albumin/Globulin [Mass ratio] 1.7 {ratio} 0.9-2.4 [facility] Serum or plasma alkaline balaji sphatase measurementOrdered By: Martha Kim on 01-25-2025 ALP [Catalytic activity/Vol] 97 U/L 40-129 [facility] Serum or plasma calcium camilo urement (mass/volume)Ordered By: Martha Kim on 01-25-2025 Calcium [Mass/Vol] 9.8 mg/dL 7.6-11.0 [facility] Serum or plasma urea nitroge n measurement (mass/volume)Ordered By: Martha Kim on 01-25-2025 Urea nitrogen [Mass/Vol] 15 mg/dL 4-19 [facility] Sodium levelOrdered By: Laquita Kim on 01-25-2025 Sodium [Moles/Vol] 140 mmol/L 133-145 [facility] Total proteinOrdered By: Jude Kim on 01-25-2025 Protein [Mass/Vol] 6.8 g/dL 5.9-8.4 [facility] White blood cell (WBC) count Ordered By: Martha Kim on 01-25-2025 WBC (Bld) [#/Vol] 7.4 10*3/uL 4.4-11.0 [facility] MRI BRAIN WO/W IVCONon 01-21 MRI BRAIN WO/W IVCON * * *Final Report* * * DATE OF EXAM: Jan 21 2025 6:51AM [facility] 0[facility] - MRI BRAIN WO/W IVCON / PROCEDURE REASON: Malignant neoplasm of upper lobe of right lung (HCC) * * * * Physician Interpretation * * * * EXAMINATION: MRI BRAIN WO/W IVCON CLINICAL HISTORY: Malignant neoplasm of upper lobe of right lung (HCC) TECHNIQUE: Routine brain MRI protocol without and with contrast including diffusion images. MQ: [id number] Contrast: 10 mL Elucirem IV COMPARISON: None. RESULT: Acute Change: There is no evidence of an acute intracranial process. Hemorrhage: Foci of prior microhemorrhage in the bilateral frontal, left parietal and right temporal lobes. Mass Lesion/ Mass Effect: No evidence of an intracranial mass or extra-axial fluid collection. No abnormal parenchymal or leptomeningeal enhancement is noted following contrast administration. No significant mass effect. Chronic Change: Scattered punctate foci of increased T2 and FLAIR signal are noted in the supratentorial white matter which is a nonspecific finding, but likely represents minimal chronic microvascular ischemia. Parenchyma: There is moderate generalized parenchymal volume loss. The brain parenchyma is otherwise within normal limits of signal intensity and morphology. Ventricles: Ventriculomegaly corresponds to the degree of parenchymal volume loss. Skull Base: Hypothalamic and pituitary region are grossly normal. Craniocervical junction is normal. No significant marrow replacement process. Vasculature: Major intracranial arterial structures, and dural venous sinuses show typical flow void, suggesting patency by spin echo criteria. Other: Mild paranasal sinus disease. The orbits and extracranial soft tissues are unremarkable. IMPRESSION: No acute findings or abnormal enhancement. No evidence of intracranial metastasis. Mark[employer] Developer: [email or web address] Transcribe Date/Time: Jan 22 2025 1:05P Dictated by : EBONIE MCMULLEN MD This examination was interpreted and the report reviewed and electronically signed by: EBONIE MCMULLEN MD on Jan 22 2025 1:13PM EST [id number] Normal [facility] Special Stain Group IIon Special Stain Group II ------ Patient Age/Sex Location Account Attending Physician YARI LOPEZ 69/M LABSPEC [id number] Dr. Zhang Jose MD Specimen: [id number] Received: 01/19/25 Status: AREN Vieira Num: [id number] Spec Type: Fluid Subm Dr: Dr. Zhang Jose MD THIS IS A CORRECTED REPORT 02/04/25-1006 HEADER OPERATION: Fine needle aspiration of right thyroid nodule PRE-OP DIAGNOSIS: Right thyroid nodule TISSUE SUBMITTED: A- right thyroid nodule fluid for cytology, B- Right thyroid nodule slides DIAGNOSIS CYTOLOGY A,B. Right thyroid nodule, cytospins, cellblock and smears: * Negative for malignant cells. * Benign follicular cells and colloid - see Comment. COMMENT This specimen was reviewed by a second pathologist per Dr Jose's request, and the above diagnosis reflects a corrected diagnosis. Dr Jose's office ([place]) was informed of the corrected diagnosis by Dr Nico Stewart (phone call 12:50 pm, 02/04/2025). The slides were reviewed in intradepartmental consultation by Dr Maximo Moore (cytopathologist [facility]). CYTOLOGY STUDY Slides are reviewed. CYTOLOGY GROSS A. Received is 30 ml of fluid labeled with the patient's name and and designated per the requisition as Right thyroid nodule. Submitted for cytology preparation including cell block. B. Received are 4 smears labeled with the patient's name and designated per the requisition as Right thyroid nodule. Submitted for staining. Mr 01/20/2025 CPT: 18654e1,839055 TC:5 Signed (signature on file) Dr. Viry Stewart MD 02/04/25 1252 Normal [facility] Comment on above: Performed By: #### P SSII ####[facility] [id number] [place], [place], [address] Surgery Visit Reporton 01-19 Surgery Visit Report [facility] [address] [place], [place] [address] OFFICE VISIT Date of Service: 01/19/25 MR#: [id number] Acct: [id number] Name: YARI LOPEZ Rep #: [id number] : 1955 Provider: Dr. Zhang arce MD Age/Sex: 69/M Location: [facility] Status: Signed Intake Vital Signs 09/15/24 11:10 01/19/25 14:02 Height 6 ft 0.05 in 6 ft Weight: 224 lb BMI 30.4 BP 102/63 Blood Pressure Location Lt brachial Position Sitting Respiration 16 Intake Visit Reasons: THYROID NODULE Chief Complaint: thyroid nodule Supply Assistant Required: No Is patient in pain?: No Allergies Penicillins Allergy (Verified 01/19/25 14:03) Swelling Medications ???Medication ???Instructions ???Recorded ???Confirmed ???Type cholecalciferol (vitamin D3) 25 2,000 unit PO DAILY SUPPLEMENT 06/0601/19/25 History mcg (1,000 unit) tablet aspirin 81 mg chewable tablet 81 mg PO DAILY@0800 HEART HEALTH 0 04/07/20 01/19/25 History albuterol sulfate 90 mcg/actuation 2 puff inhalation Q6H PRN WHEEZI NG 11/21/20 01/19/25 History aerosol inhaler (Ventolin HFA) coenzyme Q10 100 mg capsule (Co 100 mg PO DAILY SUPPLEMENT 1 01/19/25 History Q-10) fluticasone fur. 200 mcg-umeclid 1 inh inhalation DAILY SHORTNESS 0 01/15/22 01/19/25 History 62.5 mcg-vilant 25 mcg OF BREATH/WHEEZING inhalat.powder (Trelegy Ellipta) fluticasone propionate 50 1 spray intranasal Q12H PRN NASAL 01/17/23 01/19/25 History mcg/actuation nasal CONGESTION spray,suspension (Flonase Allergy Relief) nitroglycerin 0.4 mg sublingual 0.4 mg sublingual Q5-15M PRN CHEST 01/17/23 01/19/25 Rx tablet PAIN #25 tabs methotrexate sodium 2.5 mg tablet 20 mg PO SA RA 01/23/24 01/19/25 History tramadol 50 mg tablet 50 mg PO TID PRN SEVERE HIP PAIN 0 01/23/24 09/15/24 History folic acid 1 mg tablet 2 mg PO DAILY SUPPLEMENT 03/31/24 01/19/25 History metformin 500 mg tablet,extended 500 mg PO DAILY BLOOD SUGARS 03/3101/19/25 History release 24 hr multivitamin with minerals-folic 0.5 tab PO DAILY HEALTH MAINTENANC E 03/31/24 01/19/25 History acid 80 mcg chewable tablet (Centrum Adult 50 Plus) hydroxychloroquine 200 mg tablet 200 mg PO BID 09/15/24 01/19/25 Hi story atorvastatin 80 mg tablet 80 mg PO QHS CHOLESTEROL #90 tabs 12/04/24 01/19/25 Rx losartan 25 mg tablet 12.5 mg (1/2 x 25 mg) PO DAILY 01/19/25 Rx BLOOD PRESSURE #45 tabs metoprolol tartrate 50 mg tablet 50 mg PO BID BLOOD PRESSURE #180 12/08/24 01/19/25 Rx tabs aripiprazole 5 mg tablet 5 mg PO QDAY 01/19/25 01/19/25 His tory glucosamine sulfate 500 mg tablet 500 mg PO BID 01/19/25 01/19/25 H istory (Glucosamine) Have you fallen in the past year?: No PFSH Medical History Carotid stenosis, left Wears glasses Anxiety History of steroid therapy Prostate disease Back pain Migraine headache Syncope Dietary restriction History of hiatal hernia Heartburn Asthma CPAP (continuous positive airway pressure) dependence Shortness of breath on exertion History of pain when walking History of stress test History of edema History of echocardiogram Cardiology follow-up encounter History of deviated nasal septum Depression Smoker Rheumatoid arthritis Brain TIA TIA (transient ischemic attack) Arthritis Diabetes Thoracic aortic aneurysm without rupture Pure hypercholesterolemia Essential hypertension IBS (irritable bowel syndrome) Atherosclerotic heart disease of crow coronary artery without angina pectoris Tobacco abuse Surgical History S/P chest tube placement History of left-sided carotid endarterectomy Status post aortic dissection repair ( 08/17/22) History of coronary artery bypass surgery ( 03/08/20) History of left heart catheterization (12/31/19) History of foot surgery History of hernia repair Family History Father Heart disease CAD (coronary artery disease) Hypertension Mother Heart disease CAD (coronary artery disease) Hypertension Social History (Updated 01/19/25 @ 14:02 by Minerva Mckinney) household members: spouse Smoking Status: Current every day smoker tobacco type: cigarettes quit status: considering quitting alcohol intake: former details: Currently reports 1-2 beers/week, prior had been heavier. substance use type: does not use HPI HPI HPI: Patient is a 69-year-old male who presents for an incidentally discovered right-sided thyroid nodule. They are referred for surgical consultation from PCP, Dr. West and vascular surgery. This was discovered, according to patient and his , jessica (more content not included)... [facility] 01-15-2025 [facility] Telephone (TuneUp) YARI LOPEZ ([id number]) 1955 M Date Time Provider Department 01/15/25 MIAH HINSON [employer] During your visit today, we recorded the following information about you: Betzaida Sullivan 01/15/2025 2:00 PM Signed Pt cancelled 02/09/25 appointment. He is going to get 2nd oppinion and will call back to schedule at a later date. Referral from Dr. Augustine - LATIA adenocarcinoma; also S/P CABG 03/08/20 JAL (per ) *CT Chest 12/28/24* Allergies As of Date: 01/15/2025 Noted Allergy Reaction PENICILLINS 12/26/2010 7 - Swelling Date Reviewed: 12/30/2024 Reviewed by: Kimmy Johnson, ELIEZER - Fully Assessed Reason for Visit: Appointment [186] Cmt: Appointment Prescriptions as of 01/15/2025 - predniSONE (DELTASONE) 10 mg tablet Take [...] once daily. Problem List As Of Date 01/15/2025 Noted Resolved Coronary arteriosclerosis in crow artery [I25*12/14/2013 Chest discomfort [R07.89] 12/14/2013 08/16/2022 Heart murmur, systolic [R01.1] 12/14/2013 08/16/2022 SOB (shortness of breath) on exertion [R06.02] 12/14/2013 08/16/2022 Fatigue [R53.83] 12/14/2013 08/16/2022 Hyperlipidemia LDL goal <70 [E78.5] 07/25/2016 Tobacco abuse [Z72.0] 07/25/2016 Essential hypertension [I10] 01/17/2017 S/P CABG x 4 [Z95.1] 03/10/2020 Aortic dissection (HCC) [I71.00] 08/16/2022 Nicotine use disorder, F17.2 [F17.200] 08/17/2022 Obesity, Class I, BMI 30-34.9 [E66.811] 08/17/2022 On mechanically assisted ventilation (HCC) [Z99*08/18/2022 08/18/2022 CAD (coronary artery disease) [I25.10] 08/18/2022 Postoperative pain [G89.18] 08/18/2022 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/18/2022 Coagulopathy (HCC) [D68.9] 08/18/2022 08/20/2022 MISTY (obstructive sleep apnea) [G47.33] 08/18/2022 Pulmonary edema, acute (HCC) [J81.0] 08/20/2022 08/21/2022 Encounter for support and coordination of trans*08/20/2022 Encounter Status:Closed by BETZAIDA SULLIVAN on 01/15/25 [facility] Tanika 01-14-2025 [facility] Telephone (AGVASACC) YARI LOPEZ ([id number]) 1955 M Date Time Provider Department 01/14/25 MIAH HINSON During your visit today, we recorded the following information about you: Betzaida Sullivan 01/14/2025 4:19 PM Signed Left to schedule OV. Referral from Dr. Augustine - RUL adenocarcinoma; also S/P CABG 03/08/20 JAL (per MF) Allergies As of Date: 01/14/2025 Noted Allergy Reaction PENICILLINS 12/26/2010 7 - Swelling Date Reviewed: 12/30/2024 Reviewed by: Kimmy Johnson, RN - Fully Assessed Reason for Visit: Appointment [186] Cmt: Appointment Prescriptions as of 01/14/2025 - predniSONE (DELTASONE) 10 mg tablet Take [...] once daily. Problem List As Of Date 01/14/2025 Noted Resolved Coronary arteriosclerosis in crow artery [I25*12/14/2013 Chest discomfort [R07.89] 12/14/2013 08/16/2022 Heart murmur, systolic [R01.1] 12/14/2013 08/16/2022 SOB (shortness of breath) on exertion [R06.02] 12/14/2013 08/16/2022 Fatigue [R53.83] 12/14/2013 08/16/2022 Hyperlipidemia LDL goal <70 [E78.5] 07/25/2016 Tobacco abuse [Z72.0] 07/25/2016 Essential hypertension [I10] 01/17/2017 S/P CABG x 4 [Z95.1] 03/10/2020 Aortic dissection (HCC) [I71.00] 08/16/2022 Nicotine use disorder, F17.2 [F17.200] 08/17/2022 Obesity, Class I, BMI 30-34.9 [E66.811] 08/17/2022 On mechanically assisted ventilation (HCC) [Z99*08/18/2022 08/18/2022 CAD (coronary artery disease) [I25.10] 08/18/2022 Postoperative pain [G89.18] 08/18/2022 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/18/2022 Coagulopathy (HCC) [D68.9] 08/18/2022 08/20/2022 MISTY (obstructive sleep apnea) [G47.33] 08/18/2022 Pulmonary edema, acute (HCC) [J81.0] 08/20/2022 08/21/2022 Encounter for support and coordination of trans*08/20/2022 Encounter Status:Closed by BETZAIDA SULLIVAN on 01/14/25 [facility] Telephone (THORMN) YARI LOPEZ ([id number]) 1955 M Date Time Provider Department 01/14/25 ELLIOT LYMAN During your visit today, we recorded the following information about you: Tami Vallejo, RN 01/15/2025 1:41 PM Addendum Thoracic Surgery Consultation - review of records for appointment scheduling Colton Urrutia MD ([facility]) [address] [address] Patient is being referred to DR Elliot Lyman by for Lung Cancer Outside hospital records scanned Pathology: 12/30/2024 Component FINAL DIAGNOSIS Lung, right upper lobe, nodule, transbronchial biopsy: -Invasive adenocarcinoma. A - Lung, Right Upper Lobe Nodule,Transbronchial, Fine Needle Aspiration: Positive for malignant cells. Adenocarcinoma. See comment. B - Lymph node, Station 11L, Transbronchial Fine Needle Aspiration: Negative for metastatic malignant cells. Polymorphous lymphoid sample. C - Lymph node, Station 4L, Transbronchial Fine Needle Aspiration: Negative for metastatic malignant cells. Polymorphous lymphoid sample. D - Lymph node, Station 7, Transbronchial Fine Needle Aspiration: Negative for metastatic malignant cells. Polymorphous lymphoid sample. E - Lymph node, Station 4R, Transbronchial Fine Needle Aspiration: Negative for metastatic malignant cells. Polymorphous lymphoid sample. F - Lymph node, Station 11Rs, Transbronchial Fine Needle Aspiration: Negative for metastatic malignant cells. Polymorphous lymphoid sample. Procedures: 12/30/2024 BRONCH Impression: - Right upper lobe nodule - The airway examination was normal. - Robotic bronchoscopy utilizing the [employer] robot platform was performed. - A transbronchial needle aspiration was performed. - Transbronchial lung biopsies were performed. - Rapid On-Site Evaluation (SARTHAK): Preliminary cytology of the lesion in the anterior segment of the right upper lobe was suggestive of non small cell carcinoma (final results are pending). - Lymph node sizing and sampling was performed. - Rapid On-Site Evaluation (SARTHAK): Preliminary cytology was suggestive of benign-appearing lymphoid tissue in node level 4R, node level 4L, node level 7, node level 11Rs and node level 11L and preliminary cytology was non-diagnostic in node level 11Ri (final results are pending). Recommendation: - Await test results. - The patient will be observed post-procedure, until all discharge criteria are met. Imaging PET/CT: 01/28/2025 IMPRESSION PRIMARY DISEASE SITE: * Partially solid right upper lobe lung nodule with mild uptake correlating with known primary. * Numerous bilateral nonavid small lung nodules below PET resolution. CARLY DISEASE: * No metabolically active regional lymphadenopathy. METASTATIC DISEASE: * No metabolically active distant metastases. CT (chest) 12/28/24 1. A 26 x 23 mm right upper lobe part solid (predominantly solid) pulmonary nodule has enlarged compared to prior exams and is highly suspicious for a primary lung malignancy. 2. Numerous additional small (5 mm or less) pulmonary nodules are present, overall not substantially changed since the prior chest CT from 10/29/2024 with numerous nodules also present on the more remote chest CT from 10/29/2022. These nodules are indeterminate although may represent a combination of respiratory bronchiolitis and Langerhans cell histiocytosis. Underlying neoplastic nodules are possible and continued follow-up is recommended. 3. No thoracic lymphadenopathy. 4. Postsurgical changes of median sternotomy for CABG and thoracic aortic repair. 5. Emphysema. 6. Unchanged indeterminate 1.5 cm right thyroid nodule, which could be further assessed with thyroid ultrasound. MRI: 01/21/2025 IMPRESSION: No acute findings or abnormal enhancement. No evidence of intracranial metastasis. Cardiopulmonary Testing New 6MW- ordered; needs scheduled if surgical candidate. PFT's/Six: 12/28/2024 External Document(s) - Outside PFT Results (12/29/2024) 6MW 12/28/2024: Walked 880ft, did not sat less than 88. See scanned docs for full report Cardiac: No new Cardiac testing S/P w/ Kopruvanac 08/16/2022 GRAFT ASCENDING AORTA W/VALVE SUSPENSION W/CARDIOPULMONARY BYPASS FOR AORTIC DISSECTION AORTIC HEMIARCH GRAFT W/ISOLATION AND CONTROL ARCH VESSELS Office Notes/Consults 01/11/25 Pulnico Augustine, Dalia Presley MD 01/11/25 9:[address] Colton Gamez office Informed of results + RUL adenocarcinoma Informed of referral to Thoracic Surgery per patient request. Dalia Augustine MD 12/28/[address] Augustine PRINCESS RECOMMENDATION/PLAN: - Proceed w/ Robotic Bronchoscopy for biopsy and staging purposes - PFTs in 2020 reasonable, will repeat at [facility] facility for surgical work up purposes - Will obtain PE (more content not included)... [facility] Telephone (PINEDA) YARI LOPEZ ([id number]) 1955 M Date Time Provider Department 01/13/25 DALIA AUGUSTINE During your visit today, we recorded the following information about you: Everrado Mayen 01/13/2025 11:16 AM Signed Office notes faxed to Dr Urrutia's office at [phone] attn Leyla Allergies As of Date: 01/13/2025 Noted Allergy Reaction PENICILLINS 12/26/2010 7 - Swelling Date Reviewed: 12/30/2024 Reviewed by: Kimmy Johnson RN - Fully Assessed Reason for Visit: Office Notes Faxed [Other] Prescriptions as of 01/13/2025 - predniSONE (DELTASONE) 10 mg tablet Take [...] once daily. Problem List As Of Date 01/13/2025 Noted Resolved Coronary arteriosclerosis in crow artery [I25*12/14/2013 Chest discomfort [R07.89] 12/14/2013 08/16/2022 Heart murmur, systolic [R01.1] 12/14/2013 08/16/2022 SOB (shortness of breath) on exertion [R06.02] 12/14/2013 08/16/2022 Fatigue [R53.83] 12/14/2013 08/16/2022 Hyperlipidemia LDL goal <70 [E78.5] 07/25/2016 Tobacco abuse [Z72.0] 07/25/2016 Essential hypertension [I10] 01/17/2017 S/P CABG x 4 [Z95.1] 03/10/2020 Aortic dissection (HCC) [I71.00] 08/16/2022 Nicotine use disorder, F17.2 [F17.200] 08/17/2022 Obesity, Class I, BMI 30-34.9 [E66.811] 08/17/2022 On mechanically assisted ventilation (HCC) [Z99*08/18/2022 08/18/2022 CAD (coronary artery disease) [I25.10] 08/18/2022 Postoperative pain [G89.18] 08/18/2022 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/18/2022 Coagulopathy (HCC) [D68.9] 08/18/2022 08/20/2022 MISTY (obstructive sleep apnea) [G47.33] 08/18/2022 Pulmonary edema, acute (HCC) [J81.0] 08/20/2022 08/21/2022 Encounter for support and coordination of trans*08/20/2022 Encounter Status:Closed [facility] ([id number]) 1955 M Date Time Provider Department 01/11/25 DALIA AUGUSTINE During your visit today, we recorded the following information about you: Dalia Augustine MD 01/11/2025 9:[address] Colton Gamez office Informed of results + RUL adenocarcinoma Informed of referral to Thoracic Surgery per patient request. Dalia Augustine MD Allergies As of Date: 01/11/2025 Noted Allergy Reaction PENICILLINS 12/26/2010 7 - Swelling Date Reviewed: 12/30/2024 Reviewed by: Kimmy Johnson RN - Fully Assessed Reason for Visit: Results [95] Prescriptions as of 01/11/2025 - predniSONE (DELTASONE) 10 mg tablet Take [...] once daily. Problem List As Of Date 01/11/2025 Noted Resolved Coronary arteriosclerosis in crow artery [I25*12/14/2013 Chest discomfort [R07.89] 12/14/2013 08/16/2022 Heart murmur, systolic [R01.1] 12/14/2013 08/16/2022 SOB (shortness of breath) on exertion [R06.02] 12/14/2013 08/16/2022 Fatigue [R53.83] 12/14/2013 08/16/2022 Hyperlipidemia LDL goal <70 [E78.5] 07/25/2016 Tobacco abuse [Z72.0] 07/25/2016 Essential hypertension [I10] 01/17/2017 S/P CABG x 4 [Z95.1] 03/10/2020 Aortic dissection (HCC) [I71.00] 08/16/2022 Nicotine use disorder, F17.2 [F17.200] 08/17/2022 Obesity, Class I, BMI 30-34.9 [E66.811] 08/17/2022 On mechanically assisted ventilation (HCC) [Z99*08/18/2022 08/18/2022 CAD (coronary artery disease) [I25.10] 08/18/2022 Postoperative pain [G89.18] 08/18/2022 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/18/2022 Coagulopathy (HCC) [D68.9] 08/18/2022 08/20/2022 MISTY (obstructive sleep apnea) [G47.33] 08/18/2022 Pulmonary edema, acute (HCC) [J81.0] 08/20/2022 08/21/2022 Encounter for support and coordination of trans*08/20/2022 Encounter Status:Closed by DALIA AUGUSTINE on 01/11/25 [facility] 01-08-2025 [facility] YARI LOPEZ ([id number]) 1955 M Date Time Provider Department 01/08/25 DALIA AUGUSTINE [facility] During your visit today, we recorded the following information about you: Sindhu Salgado 01/08/2025 10:02 AM Signed ----- Message from Dalia Augustine MD sent at 01/08/2025 9:13 AM EST ----- Can you help schedule patient with Dr Hinson? In the next 3-4 weeks? Known patient to him Sindhu Salgado 01/08/2025 10:03 AM Signed Can't schedule for them, provided pt with office number Allergies As of Date: 01/08/2025 Noted Allergy Reaction PENICILLINS 12/26/2010 7 - Swelling Date Reviewed: 12/30/2024 Reviewed by: Kimmy Johnson, ELIEZER - Fully Assessed Prescriptions as of 01/08/2025 - predniSONE (DELTASONE) 10 mg tablet Take [...] once daily. Problem List As Of Date 01/08/2025 Noted Resolved Coronary arteriosclerosis in crow artery [I25*12/14/2013 Chest discomfort [R07.89] 12/14/2013 08/16/2022 Heart murmur, systolic [R01.1] 12/14/2013 08/16/2022 SOB (shortness of breath) on exertion [R06.02] 12/14/2013 08/16/2022 Fatigue [R53.83] 12/14/2013 08/16/2022 Hyperlipidemia LDL goal <70 [E78.5] 07/25/2016 Tobacco abuse [Z72.0] 07/25/2016 Essential hypertension [I10] 01/17/2017 S/P CABG x 4 [Z95.1] 03/10/2020 Aortic dissection (HCC) [I71.00] 08/16/2022 Nicotine use disorder, F17.2 [F17.200] 08/17/2022 Obesity, Class I, BMI 30-34.9 [E66.811] 08/17/2022 On mechanically assisted ventilation (HCC) [Z99*08/18/2022 08/18/2022 CAD (coronary artery disease) [I25.10] 08/18/2022 Postoperative pain [G89.18] 08/18/2022 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/18/2022 Coagulopathy (HCC) [D68.9] 08/18/2022 08/20/2022 MISTY (obstructive sleep apnea) [G47.33] 08/18/2022 Pulmonary edema, acute (HCC) [J81.0] 08/20/2022 08/21/2022 Encounter for support and coordination of trans*08/20/2022 Encounter Status:Closed by SINDHU SALGADO on 01/08/25 [facility] Tanika 01-04-2025 [facility] Telephone (PULMMN) YARI LOPEZ ([id number]) 1955 M Date Time Provider Department 01/04/25 DALIA AUGUSTINE During your visit today, we recorded the following information about you: Dalia Augustine MD 01/04/2025 8:55 AM Signed Called patient to discuss results Nodule+ Adenocarcinoma Mediastinum was negative Pending PET and MRI brain PFTs scanned into chart Sent a message to Dr Hinson to see if surgical resection is still possible for patient. Either Surgery evaluation next or send to radiation oncology pending above opinion. 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 Problem List As Of Date 01/04/2025 Noted Resolved Coronary arteriosclerosis in crow artery [I25*12/14/2013 Chest discomfort [R07.89] 12/14/2013 08/16/2022 Heart murmur, systolic [R01.1] 12/14/2013 08/16/2022 SOB (shortness of breath) on exertion [R06.02] 12/14/2013 08/16/2022 Fatigue [R53.83] 12/14/2013 08/16/2022 Hyperlipidemia LDL goal <70 [E78.5] 07/25/2016 Tobacco abuse [Z72.0] 07/25/2016 Essential hypertension [I10] 01/17/2017 S/P CABG x 4 [Z95.1] 03/10/2020 Aortic dissection (HCC) [I71.00] 08/16/2022 Nicotine use disorder, F17.2 [F17.200] 08/17/2022 Obesity, Class I, BMI 30-34.9 [E66.811] 08/17/2022 On mechanically assisted ventilation (HCC) [Z99*08/18/2022 08/18/2022 CAD (coronary artery disease) [I25.10] 08/18/2022 Postoperative pain [G89.18] 08/18/2022 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/18/2022 Coagulopathy (HCC) [D68.9] 08/18/2022 08/20/2022 MISTY (obstructive sleep apnea) [G47.33] 08/18/2022 Pulmonary edema, acute (HCC) [J81.0] 08/20/2022 08/21/2022 Encounter for support and coordination of trans*08/20/2022 Encounter Status:Closed by DALIA AUGUSTINE on 01/04/25 [facility] ANES POSTPROC EVALon 025 ANES POSTPROC EVAL HNO ID: [id number] Author: CHUCK ALVAREZ MD Service: ? 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 PACU/ICU Patient Condition: stable. Anticipated Disposition: phase 2 then home. Neurological Status: aware and responsive. Pulmonary Status: breathing comfortably on room air Airway Control: returned to baseline unsupported. Cardiovascular Status: stable. Pain Management: clinically adequate Postoperative Hydration: acceptable. Intraoperative Events: no significant anesthesia events Post Operative Nausea/Vomiting Status: no significant post operative nausea or vomiting Recommendation: continue current plan of care. Anesthesia Observations No Documentation SIGNATURE: Chuck Alvarez MD PATIENT NAME: Yari Lopez DATE: December 30, 2024 TIME: 1:24 PM CSN: [id number] Normal [facility] ANES PRE-OPon 12-30-2024 ANES PRE-OP HNO ID: [id number] Author: CHUCK ALVAREZ MD Service: ? Author Type: Physician Type: Anesthesia Preprocedure Evaluation Filed: 12/30/2024 08:03 Note Text: ANESTHESIOLOGY DAY OF SURGERY NOTE : 1955 Procedure Information Date/Time: 12/30/24829 Procedure: BRONCHOSCOPY FLEXIBLE ADULT (Bronchus) - Tier 2- ION Robot Hever Bronch CT scheduled for 12/28 Staging EBUS Location: PULM B-02 / PULM LAB H23 Surgeons: Caitlin Carter MD Estimated body mass index is 30.65 kg/m? as calculated from the following: Height as of this encounter: 182.9 cm (6'). Weight as of this encounter: 102.5 kg (226 lb). Most recent hematocrit and potassium results: Hematocrit (I-STAT) 38.5 12/28/2024 Potassium (I-STAT) 4.0 12/28/2024 Relevant Problems ANESTHESIA (+) MISTY (obstructive sleep apnea) CARDIO (+) Aortic dissection (HCC) (+) CAD (coronary artery disease) (+) Coronary arteriosclerosis in crow artery (+) Essential hypertension (+) S/P CABG x 4 (+) 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al angiopathy without gangrene, without long-term current use of insulin (HCC) ENDO (+) 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al angiopathy without gangrene, without long-term current use of insulin (HCC) PULMONARY (+) MISTY (obstructive sleep apnea) I - PHYSICAL EVALUATION AIRWAY Patient intubated: No. Tracheostomy tube not present Mallampati: I. TM distance: >3 FB. Neck ROM: full ROM without neurological symptoms. Mouth opening: adequate. Short neck: no. Thick neck: no DENTAL Dental findings: teeth intact. II - ANESTHESIA PLAN ASA Score: 3 Anesthetic Plan: general Airway type: ETT NPO Status: adequate Beta Gideon Monitoring Plan Monitoring plan: standard ASA. Post Procedure Analgesic Plan Postoperative analgesic plan: multimodal analgesia. Informed Consent Anesthetic risks, benefits, alternatives, personnel and consent discussed: yes. Patient / Responsible Green Party agrees to proceed: yes Patient / Surrogate agrees to blood products: Yes Significant changes in the patient condition since the History and Physical, not otherwise documented in primary service progress note: no. Potential Anesthesia issues that may suggest increased risk of complications or contraindication to planned procedure: none. Vitals Value Taken Time BP 104/56 12/30/24 0709 Pulse 63 12/30/24 0709 Resp 18 12/30/24 0709 Temp 36.8 ?C (98.2 ?F) 12/30/24 0709 SpO2 94 % 12/30/24 0709 No current facility-administered medications on file as of 12/30/2024. Outpatient Medications as of 12/30/2024 Medication Sig losartan (COZAAR) 25 mg tablet Take a half tablet by mouth daily with lunch. metoprolol tartrate, short acting, (LOPRESSOR) 50 mg tablet Take 1 tablet by mouth twice daily. predniSONE (DELTASONE) 10 mg tablet Take 10 mg by mouth once daily. methotrexate 2.5 mg tablet Take 2.5 mg by mouth every Saturday. 5 tablets 1x a week on Saturdays folic acid 1 mg tablet Take 1 mg by mouth once daily. vortioxetine (TRINTELLIX) 20 mg tablet Take 1 tablet by mouth once daily. aluminum-magnesium hydroxide-simethicone (MAALOX,MYLANTA,MAG-AL PLUS) 200-200-20 mg/5 mL suspension Take 30 mL by mouth as needed (Second Line Therapy). atorvastatin (LIPITOR) 40 mg tablet Take 1 tablet by mouth daily at bedtime. guaiFENesin (MUCINEX) 600 mg 12 hr tablet Take 1 tablet by mouth every 12 hours as needed (cough). lidocaine (SALONPAS) 4 % patch Apply 1 Patch as directed once daily. magnesium hydroxide (MOM) 400 mg/5 mL suspension Take 30 mL by mouth once daily as needed. acetaminophen (TYLENOL) 500 mg tablet Take 2 tablets by mouth every 6 hours as needed for pain. No more than 4000 mg total for a 24 hours window. Thanks. polyethylene glycol 3350 (MIRALAX, GLYCOLAX) 17 gram packet Take 1 Packet by mouth twice daily as needed for constipation. Dissolve dose in 4 - 8 ounces of liquid and take as directed. aspirin, enteric coated (ECOTRIN LOW STRENGTH) 81 [...] Take 2,000 Units by mouth once daily. I have interviewed and examined the patient. I have reviewed the medical record and/or the pre-anesthesia evaluation, pertinent labs, and test results. This contains updated information obtained within 48 hours of Surgery/Procedure. SIGNATURE: Chuck Alvarez MD PATIENT NAME: Yari Lopez DATE: December 30, 2024 TIME: 7:55 AM CSN: [id number] Normal [facility] CYTOLOGY NON-GYNon 5 ADEQUACY INTERPRETATION [facility] Comment on above: Order Comment: Speci men Type: SPECIMEN OBTAINED BY ASPIRATIONOrdering Facility: [facility] Address: [address] [place] [address] Result Comment: A: # 1,2 Non-diagnostic #3 Positive for malignancy B: #1 Lymphoid sample #2 Limited Lymphoid sample C: #1 Lymphoid sample #2 Non-diagnostic D: #1 Lymphoid sample E: #1 Limited lymphoid sample F: #1 Limited Lymphoid sample G: #1 Non-diagnostic Dr. Maria Dolores Jalloh // Ambar Pérez // Hema Crain Each letter in the above intra-procedural assessment refers to a unique site. The specific site is indicated in the final diagnosis portion of the report. Each number in this assessment references a discrete evaluation episode. Intra-procedural assessment performed at [facility], [address] [place] [address]. [place] [address] Performed By: #### C YTONON ####[facility] LABIA [id number] [place] [address] [place] CASE REPORT Normal [facility] Comment on above: Order Comment: Speci men Type: SPECIMEN OBTAINED BY ASPIRATIONOrdering Facility: [facility] Address: [address] [place] [address] Result Comment: [facility] Cytology Report Case: [id number] Authorizing Provider: Caitlin Carter MD Collected: 12/30/2024 08:36 AM Ordering Location: Admitting Received: 12/30/2024 10:10 AM Pathologist: Winnie Jalloh MD Specimens: A) - Lung, Right Upper Lobe, Transbronchial, Right Upper Lobe Nodule B) - Lymph Node, Transbronchial, 11L C) - Lymph Node, Transbronchial, 4L D) - Lymph Node, Transbronchial, Station 7 E) - Lymph Node, Transbronchial, 4R F) - Lymph Node, Transbronchial, 11RS G) - Lymph Node, Transbronchial, 11RI Performed By: #### C YTONON ####[facility] LABIA [id number] [place] [address] [place] CLINICAL HISTORY Normal [facility] Comment on above: Order Comment: Speci men Type: SPECIMEN OBTAINED BY ASPIRATIONOrdering Facility: [facility] Address: [address] [place] [address] Result Comment: Pre- op diagnosis: Bronchiolar disease [J98.09] Smoker, right and left lung nodules Performed By: #### C YTONON ####[facility] LABIA [id number] [place] [address] [place] FINAL DIAGNOSIS Normal [facility] Comment on above: Order Comment: Speci men Type: SPECIMEN OBTAINED BY ASPIRATIONOrdering Facility: [facility] Address: [address] [place] [address] Result Comment: A - Lung, Right Upper Lobe Nodule,Transbronchial, Fine Needle Aspiration: Positive for malignant cells. Adenocarcinoma. See comment. B - Lymph node, Station 11L, Transbronchial Fine Needle Aspiration: Negative for metastatic malignant cells. Polymorphous lymphoid sample. C - Lymph node, Station 4L, Transbronchial Fine Needle Aspiration: Negative for metastatic malignant cells. Polymorphous lymphoid sample. D - Lymph node, Station 7, Transbronchial Fine Needle Aspiration: Negative for metastatic malignant cells. Polymorphous lymphoid sample. E - Lymph node, Station 4R, Transbronchial Fine Needle Aspiration: Negative for metastatic malignant cells. Polymorphous lymphoid sample. F - Lymph node, Station 11Rs, Transbronchial Fine Needle Aspiration: Negative for metastatic malignant cells. Polymorphous lymphoid sample. G - Lymph node, Station 11Ri, Transbronchial Fine Needle Aspiration: Non-Diagnostic. Predominantly blood. Not a lymphoid sample. The following cell blocks were associated with this case: A1 Cell Block, Alcohol Fixed B1 Cell Block, Alcohol Fixed C1 Cell Block, Alcohol Fixed D1 Cell Block, Alcohol Fixed E1 Cell Block, Alcohol Fixed F1 Cell Block, Alcohol Fixed G1 Cell Block, Alcohol Fixed at 1217 EST Performed By: #### C YTONON ####[facility] LABCLIA [id number] [place] [address] [place] FINAL PERFORMING LAB Normal [facility] Comment on above: Order Comment: Speci men Type: SPECIMEN OBTAINED BY ASPIRATIONOrdering Facility: [facility] Address: [address] [place] [address] Result Comment: Tech nical component, commercial accountant screening performed at [facility], [address] [place] [address] CLIA# [id number] Diagnostic interpretation performed at [facility], [address] [place] [address] CLIA# [id number] Fiber Machine Tender: Aidan Fuentes M.D. Performed By: #### C YTONON ####[facility] LABCLIA [id number] [address] [place] GROSS DESCRIPTION Normal [facility] Comment on above: Order Comment: Speci men Type: SPECIMEN OBTAINED BY ASPIRATIONOrdering Facility: [facility] Address: [address] [place] [address] Result Comment: A. L criselda, Right Upper Lobe, Transbronchial 35 cc clear red CytoLyt with material. ThinPrep and Cell Block prepared and 6 smears (3 air dried and 3 fixed). B. Lymph Node, Transbronchial 30 cc clear light pink CytoLyt with material. ThinPrep and Cell Block prepared and 4 smears (2 air dried and 2 fixed). C. Lymph Node, Transbronchial 30 cc clear colorless CytoLyt . ThinPrep and Cell Block prepared and 4 smears (2 air dried and 2 fixed). D. Lymph Node, Transbronchial 30 cc clear light pink CytoLyt with material. ThinPrep and Cell Block prepared and 2 smears (1 air dried and 1 fixed). E. Lymph Node, Transbronchial 30 cc clear light pink CytoLyt with material. ThinPrep and Cell Block prepared and 2 smears (1 air dried and 1 fixed). F. Lymph Node, Transbronchial 30 cc clear pink CytoLyt with material. ThinPrep and Cell Block prepared and 2 smears (1 air dried and 1 fixed). G. Lymph Node, Transbronchial 30 cc hazy red CytoLyt with material. ThinPrep and Cell Block prepared and 2 smears (1 air dried and 1 fixed). Performed By: #### C YTONON ####[facility] LABCLIA [id number] [place] [address] [place] ORDER COMMENT Normal [facility] Comment on above: Order Comment: Speci men Type: SPECIMEN OBTAINED BY ASPIRATIONOrdering Facility: [facility] Address: [address] [place] [address] Result Comment: Pre- op diagnosis: Bronchiolar disease [J98.09] Performed By: #### C YTONON ####[facility] LABCLIA [id number] [place] [address] [place] FISH FOR ALK (2P23) THINPREP NSCLCon 12-30-2024 FISH FOR ALK (2P23) THINPREP NSCLC Normal [facility] Comment on above: Order Comment: Speci men Type: SPECIMEN OBTAINED BY ASPIRATIONOrdering Facility: [facility] Address: [address] [place] [address] Result Comment: FISH FOR ALK (2P23) THINPREP NSCLC Laboratory Accession Number: [id number] Case: [id number] Block: A1 Sample Type: FNA Sample Description: LUNG, RIGHT UPPER LOBE NODULE, TRANSBRONCHIAL FNA Received Date: 01/01/2025 Number of nuclei scored: 50 RESULT: Result Reference Range ALK Rearrangement 2% (0-14%) INTERPRETATION: Interphase FISH was negative for a rearrangement involving the ALK gene at 2p23.2. Nomenclature: nuc hugo(ALKx3~6)[] METHODOLOGY: The dual color, ALK (2p23.2-2p23.1) Break Apart FISH Probe Kit ([employer], [place], [place]), approved for formalin-fixed, paraffin- embedded tissue by the Food and Drug Administration (FDA) for selection of locally advanced or metastatic non-small cell lung cancer patients for treatment with crizotinib, was modified for use with ThinPrep cytopathology slides as a laboratory developed test. Fifty (50) interphase cancer cells were analyzed. The slides were scored manually. REFERENCES: 1) Tolu EL, Kun YErikaJ, Skyla WANG, et al. Anaplastic Lymphoma Kinase Inhibition in Cuw-Pgroj-Hqch Lung Cancer. N Engl J Med 2010;363:6546-0121. 2) Misa NI, Alexus PT, Lilian MN, et al. Molecular Testing Guideline for the Selection of Lung Cancer Patients for EGFR and ALK Tyrosine Kinase Inhibitors: Guideline from the College [employer] [place] [employer], International Association for the Study of Lung Cancer, and Association for Molecular Pathology. J Mol Diagn 2013;15:415-53. 3) NCCN Clinical Practice Guidelines in Oncology: Non-Small Cell Lung Cancer, National Comprehensive Cancer Network, Inc. Available at NCCN.org. 4) Jeremy SJ, Irvin M, Angelina S, et al. Unique clinicopathologic features characterize ALK-rearranged lung adenocarcinoma in the western population. Clin Cancer Res 2009;15:8017-5110. LIMITATIONS: This test will not identify all rearrangements in ALK. Rare, cryptic abnormalities may be below the resolution of the assay, or may otherwise be undetected. Specimen size, quality or representativeness can affect the quality of the results. DISCLAIMER: This test was developed and its performance characteristics determined by [facility]'s Pathology and Laboratory Medicine Department. It has not been cleared or approved by the FDA. [facility] Pathology and Laboratory Medicine Department is regulated under CLIA as certified to perform high-complexity testing. This test is used for clinical purposes. It should not be regarded as investigational or for research. Interpretation performed at [facility], [address] [place] [address]. CLIA Number: [id number] As reviewed by Sanjana Burris MD Performed By: #### F [facility] ####[facility] LIMSCLIA [id number] [place] [address] [place] FISH FOR RET (10Q11.21)on FISH FOR RET (10Q11.21) Normal C [facility] Comment on above: Order Comment: Speci men Type: TISSUE SPECIMENOrdering Facility: [facility] Address: [address] [place] [address] Result Comment: FISH for RET (10q11.21) Laboratory Accession Number: [id number] Case: [id number] Block/Part ID: A1 Sample Type: FFPET Sample Description: LUNG, RIGHT UPPER LOBE NODULE, TRANSBRONCHIAL BIOPSY Received Date: 01/05/2025 Number of nuclei scored: 50 RESULT: Result Reference Range RET Rearrangement 0% (0-14%) INTERPRETATION: A rearrangement involving the RET gene at 10q11.21 was not detected. Clinical and pathological correlation is recommended. Nomenclature: nuc hugo(RETx3~5)[25/50] METHODOLOGY: A dual color, break apart probe specific to the RET gene at 10q11.21 ([employer], [place], [place]) was used in this interphase FISH assay to detect the presence of a RET rearrangement. The slides were scored manually. REFERENCES: Sarah A, Skinner L, Hasanovic A, et al. Response to Cabozantinib in patients with RET fusion-positive lung adenocarcinomas. Cancer Discov 2013;3:630-5 2. Emerita BLACK[facility]URN. RET revisited: expanding the oncogenic portfolio. Lori Rev Cancer 2014;14:173-86 3. Hugh C, et al. Molecular methods for somatic mutation testing in lung adenocarcinoma: EGFR and beyond. Trans Lung Cancer Res 2015;4:126-41 4. National Comprehensive Cancer Network (NCCN) Clinical Practice Guidelines in Oncology, Non-Small Cell Lung Cancer, Available at NCCN.org LIMITATIONS: This test will not identify all rearrangements in RET. Rare, cryptic abnormalities may be below the resolution of the assay, or may otherwise be undetected. Specimen size, quality or representativeness can affect the quality of the results. This assay has been validated for tissues fixed with neutral buffered formalin. Decalcification agents and fixation agents containing heavy metals, e.g. B5, or harsh acid or base components (e.g. Bouin's solution) can adversely impact assay performance. DISCLAIMER: This test was developed and its performance characteristics determined by [facility]'s Pathology and Laboratory Medicine Department. It has not been cleared or approved by the FDA. [facility] Pathology and Laboratory Medicine Department is regulated under CLIA as certified to perform high-complexity testing. This test is used for clinical purposes. It should not be regarded as investigational or for research. Interpretation performed at [facility], [address] [place] [address]. CLIA Number: [id number] As reviewed by Anusha Doran MD, PhD Performed By: #### R ET ####[facility] LIMSCLIA [id number] [address] OF [place] NURSING PROGon 12-30-2024 NURSING PROG HNO ID: [id number] Author: MIGUEL ROTHMAN RN Service: Nursing Author Type: Registered Nurse Type: Nursing Progress Note Filed: 12/30/2024 10:40 Note Text: POST OP LEARNING RESPONSE INSTRUCTION PROVIDED TO: Patient and Spouse METHOD OF INSTRUCTION: Individual instruction Written instruction/Handouts PATIENT / FAMILY RESPONSE: Verbalizes understanding of: post bronchoscopy instructions FOLLOW-UP PLAN: Complete - No need for follow-up SUPPLEMENTAL MATERIAL: None REFERRAL (RECOMMENDATION): None Electronically Signed By: Miguel Rothman RN In Department: ADMITTING Normal [facility] PD-L1 22C3on 12-30-2024 AP BIOMARKER DISCLAIMER Normal C [facility] Comment on above: Order Comment: Speci men Type: TISSUE SPECIMENOrdering Facility: [facility] Address: [address] [place] [address] Result Comment: Laboratory Developed Test (LDT) Disclaimer: Performance characteristics of immunohistochemical, immunofluorescent and chromogenic in-situ hybridization tests have been determined by the performing laboratory within [facility]???s [facility] Pathology and Laboratory Medicine Department ([facility], [facility], [facility], [facility], [facility], [facility], or [facility]) in a manner consistent with CLIA requirements. One or more of these tests have not been cleared or approved by the FDA. [facility] is regulated under CLIA as qualified to perform high-complexity testing. These tests are used for clinical purposes. They should not be regarded as investigational or for research. Positive and negative controls stain appropriately. Performed By: #### L [id number] ####[facility] LABIA [id number] [place] [address] [place] AP BLOCK ID A1 Normal [facility] Comment on above: Order Comment: Speci men Type: TISSUE SPECIMENOrdering Facility: [facility] Address: [address] [place] [address] Performed By: #### L [id number] ####[facility] LABIA [id number] [address] [place] BIOMARKER INTERPRETATION COMMENT AND REFERENCE RANGE Normal [facility] Comment on above: Order Comment: Speci omer Type: TISSUE SPECIMENOrdering Facility: [facility] Address: [address] [place] [address] Result Comment: Inte rpretation standard: TPS: The Tumor Proportion Score is the percentage of the viable tumor cells demonstrating partial or completed membrane staining of any intensity. Reference Range for PDL1 expression in Non-Small Cell Lung Cancer (NSCLC) TPS less than 1%: Negative TPS between 1 - 49%: Low Positive TPS greater than 50%: High Positive The PDL1 expression of Non-Small Cell Lung Cancer (NSCLC) is interpreted to determine if the patient should be considered for treatment with either pembrolizumab (KEYTRUDA) or cemiplimab-rwlc (LIBTAYO). Please refer to the Product label for additional information. KEYTRUDA - (https://www.keytrudahcp.com/prescribing-information/) LIBTAYO - (https://www.[employer]/sites/default/files/Libtayo_FPI.pdf ) Performed By: #### L [id number] ####[facility] LABCLIA [id number] [address] BIOMARKER METHOD Immunohistochemistry was performed on formalin fixed paraffin-embedded tissue using the mouse monoclonal antibody 22C3 ([employer]; [place], [place]) followed by ultrasensitive bright field detection (Optiview with amplification [[employer], [place]]). Normal [facility] Comment on above: Order Comment: Speci men Type: TISSUE SPECIMENOrdering Facility: [facility] Address: [address] [place] [address] Performed By: #### L [id number] ####[facility] LABCLIA [id number] [address] OF [facility] CASE NUMBER PD-[id number] Normal [facility] Comment on above: Order Comment: Speci men Type: TISSUE SPECIMENOrdering Facility: [facility] Address: [address] [place] [address] Performed By: #### L [id number] ####[facility] LABCLIA [id number] [address] STATES OF [facility] FINAL PERFORMING LAB Normal [facility] Comment on above: Order Comment: Speci men Type: TISSUE SPECIMENOrdering Facility: [facility] Address: [address] [place] [address] Result Comment: Diag nostic interpretation performed at: [facility], [address] [place] [address] CLIA# [id number] Fiber Machine Tender: Aidan Fuentes MD Electronically signed out by: Natalie Crawley MD Performed By: #### L [id number] ####[facility] LABCLIA [id number] [address] OF [place] Result Comment: Diag nostic interpretation performed at: [facility], [address] [id number] CLIA# [id number] Fiber Machine Tender: Aidan Fuentes MD Performed By: #### 6 6121-5 ####[facility] LABCLIA [id number] [place] [address] [place] FIXATIVE Normal [facility] Comment on above: Order Comment: Speci men Type: TISSUE SPECIMENOrdering Facility: [facility] Address: [address] [place] [address] Performed By: #### L [id number] ####[facility] LABCLIA [id number] [place] [address] [place] PD-L1 22C3 TPS (LUNG) INTERPRETATION Positive Abnormal [facility] Comment on above: Order Comment: Speci men Type: TISSUE SPECIMENOrdering Facility: [facility] Address: [address] [place] [address] Performed By: #### L [id number] ####[facility] LABCLIA [id number] [place] [address] [place] PD-L1 TUMOR TYPE Other (See Comment) Normal [facility] Comment on above: Order Comment: Speci men Type: TISSUE SPECIMENOrdering Facility: [facility] Address: [address] [place] [address] Result Comment: See original report Performed By: #### L [id number] ####[facility] LABCLIA [id number] [place] [address] [place] TUMOR PROPORTION SCORE (TPS) 2 Normal [facility] Comment on above: Order Comment: Speci men Type: TISSUE SPECIMENOrdering Facility: [facility] Address: [address] [place] [address] Performed By: #### L [id number] ####[facility] LABCLIA [id number] [place] [address] [place] Pathology biopsy report Hernan (Tiss)on 12-30-2024 CASE REPORT Normal [facility] Comment on above: Order Comment: Bernie tello Type: TISSUE SPECIMENOrdering Facility: [facility] Address: [address] [place] [address] Result Comment: [facility] Pathology Report Case: [id number] Authorizing Provider: Caitlin Carter MD Collected: 12/30/2024 09:12 AM Ordering Location: Admitting Received: 12/30/2024 11:19 AM Pathologist: Natalie Crawley MD Specimen: Lung, Right Upper Lobe, Transbronchial Biopsy, RUL NODULE TBBX Performed By: #### 6 6121-5 ####[facility] LABCLIA [id number] [address] CLINICAL HISTORY Normal [facility] Comment on above: Order Comment: Bernie tello Type: TISSUE SPECIMENOrdering Facility: [facility] Address: [address] [place] [address] Result Comment: Pre- op diagnosis: Bronchiolar disease [J98.09] 26 x 23 mm RUL predominantly solid lung nodule, enlarged compared to prior exams. Numerous additional <5 mm lung nodules, overall n stable since prior chest CT 10/29/24, numerous nodules also present on remote chest CT 10/29/22, may represent a combination of RB and LCH. Underlying neoplastic nodules are possible Performed By: #### 6 6121-5 ####[facility] LABIA [id number] [address] FINAL DIAGNOSIS Normal [facility] Comment on above: Order Comment: Speci omer Type: TISSUE SPECIMENOrdering Facility: [facility] Address: [address] [place] [address] Result Comment: Lung , right upper lobe, nodule, transbronchial biopsy: -Invasive adenocarcinoma. at 0939 EST Performed By: #### 6 6121-5 ####[facility] LABCLIA [id number] OF [facility] GROSS DESCRIPTION Normal [facility] Comment on above: Order Comment: Speci men Type: TISSUE SPECIMENOrdering Facility: [facility] Address: [address] [place] [address] Result Comment: A. L criselda, Right Upper Lobe, Transbronchial Biopsy Received in formalin are multiple pieces of coto-red, soft tissue aggregating to 2.3 x 0.5 x 0.1 cm. Totally submitted in one cassette. Gross examination performed at [facility], [address] [place] [address]. AMS December 30, 2024 11:33 AM Performed By: #### 6 6121-5 ####[facility] LABCLIA [id number] [address] ROS1 GENE REARRANGEMENTon FISH FOR ROS1 (6Q22) Normal [facility] Comment on above: Order Comment: Speci men Type: TISSUE SPECIMENOrdering Facility: [facility] Address: [address] [place] [address] Result Comment: FISH for ROS1(6q22) Laboratory Accession Number: [id number] Case: [id number] Block/Part ID: A1 Sample Type: FFPET Sample Description: LUNG, RIGHT UPPER LOBE NODULE, TRANSBRONCHIAL BIOPSY Received Date: 01/05/2025 Number of nuclei scored: 50 RESULT: Result Reference Range ROS1 Rearrangement 4% (0-14%) INTERPRETATION: A rearrangement involving the ROS1 gene at 6q22.1 was not detected. Clinical and pathological correlation is recommended. Nomenclature: nuc hugo(ROS1x1)[1550]/(ROS1x3~6)[50] METHODOLOGY: A dual color, break apart probe specific to the ROS1 gene at 6q22.1 ([employer], [place], [place]) was used in this interphase FISH assay to detect the presence of a ROS1 rearrangement. The slides were scored manually. REFERENCES: 1) Myriam KD, Harman RC. Molecular Pathways: ROS1 Fusion Proteins in Cancer. Clin Cancer Res 2013;15:1-6. Raheel AT, Mary Grace VERDUZCO, Hamilton B, et al. Crizotinib in Ros1-Rearranged Non-Small Cell Lung Cancer. New Encl J Med 2014;21:1963-71 2) Raheel AT, Mary Grace VERDUZCO, Louie Aguayo, et al. Crizotinib in ROS1-Rearranged Non-Small Lung Cancer. New Engl J Med 2014;21:1963-71 3) Hugh Kirkpatrick, et al. Molecular methods for somatic mutation testing in lung adenocarcinoma: EGFR and beyond. Transl Lung Cacer Res 2015;4:126-41 4) Gaby Aj, Anahi Cristina, Treva Kirkpatrick, et al. ROS1 rearrangements in lung adenocarcinoma: prognostic impact, therapeutic options and genetic variability. Oncotarget 2015; e-pub ahead of print, February 09, 2015. 5) National Comprehensive Cancer Network (NCCN) Clinical Practice Guidelines in Oncology, Non-Small Cell Lung Cancer. Available at NCCN.org LIMITATIONS: This test will not identify all rearrangements in ROS1. Rare, cryptic abnormalities may be below the resolution of the assay, or may otherwise be undetected. Specimen size, quality or representativeness can affect the quality of the results. This assay has been validated for tissues fixed with neutral buffered formalin. Decalcification agents and fixation agents containing heavy metals, e.g. B5, or harsh acid or base components (e.g. Bouin's solution) can adversely impact assay performance. DISCLAIMER: This test was developed and its performance characteristics determined by [facility]'s Pathology and Laboratory Medicine Department. It has not been cleared or approved by the FDA. [facility]'s Pathology and Laboratory Medicine Department is regulated under CLIA as certified to perform high-complexity testing. This test is used for clinical purposes. It should not be regarded as investigational or for research. Interpretation performed at [facility], [facility] [place] [address]. CLIA Number: [id number] As reviewed by Anusha Doran MD, PhD Performed By: #### R OS1 ####[facility] [id number] [place] [address] [place] TARGETED ONCOLOGY PANEL NEXT GENERATION SEQUENCING CYTOLOGYon 12-30-2024 TARGETED ONCOLOGY PANEL NEXT GENERATION SEQUENCING CYTOLOGY Normal [facility] Comment on above: Order Comment: Speci men Type: SPECIMEN OBTAINED BY ASPIRATIONOrdering Facility: [facility] Address: [facility] [place] [address] Result Comment: [facility] Targeted Oncology Panel Laboratory Accession Number: [id number] Case #: [id number] Block #: Sample Type: FFPET % Tumor: 20 CASE SUMMARY: DNA summary: The clinically significant KRAS G13C variant was detected. RNA summary: There was either insufficient material for RNA extraction, or the extracted RNA from this specimen did not meet minimum sequencing quality metrics for reporting; as such, fusions and aberrant transcripts cannot be reported. This can be due to poor quality or low quantity of specimen derivatives. The sample DNA met quality metrics, and single nucleotide variants, indels and copy number gains are reported. If clinically indicated, repeat testing of an alternative specimen is recommended. *Unless otherwise stated, all assay hotspot regions have been tested (see EVALUATED GENES below) and only positive genes are reported. RESULTS: Single Nucleotide Variants/Indels: KRAS\X09\p.Lbg66Jgd \X09\NM_033360.2:c.37G>T \X09\7.7% VAF, Depth 3572x, Ex2 Copy Number Gains: None detected RNA Fusions and Aberrant Transcripts: RNA QNS, see Case Summary VARIANT INTERPRETATIONS: KRAS p.Jul20Veu NM_033360.2:c.37G>T The clinically significant G13C variant in KRAS was detected in this specimen. KRAS alonso-oncogene encodes for a small GTPase family protein, K-Gaudencio, which plays linder role cell proliferation regulation. KRAS hot spot mutations, especially in exon 2, and amplifications are common in colorectal, non-small cell lung and pancreatic cancers (PMID: 73123835, [id number], [id number]). Biomarker Therapy Associations Resistance: COLORECTAL CANCER: [Cetuximab, Panitumumab, Tucatinib + Trastuzumab] Variants of uncertain significance detected: None detected Regions with coverage <100x: PIK3CA:NM_006218.2:Ex2 chr3:[id number] Range: 54-64 METHODOLOGY: Extracted nucleic acid from the specimen, both DNA and RNA, were subjected to separate targeted amplification reactions, using AmpliSeq custom primers designed by [employer] ([employer], [place], [place]). Hotspots and selected fusions in gene regions listed below were sequenced using Illumina ([place], [place]) 2x150 paired-end cycle chemistry. A customized bioinformatics analytical platform was used for read alignment (Genome Build GRCh37/hg19), variant identification and annotation. Single nucleotide variants (SNVs), insertion, deletion (indels) and copy number gain variants are detected by DNA sequencing. Select fusions and aberrant transcripts (EGFR vIII and MET exon 14 skipping transcripts) are detected by RNA sequencing. Variants are classified according to established guidelines (1). Reported results include variants of strong or potential clinical significance and variants of unclear clinical significance. Benign population polymorphisms are not included in the report. If relevant, standard of care therapies for various solid tumor types/indications (FDA-approved biomarker or standard biomarker recommended by a professional society) are provided in the variant interpretation section, as well as markers resistant to FDA-approved drugs. This information is not to be considered a recommendation for therapy. Based on validation, the DNA testing delivered an average of >500x coverage and >99% of targeted regions showed over 100x coverage. A minimum coverage depth of 100 reads is required across the entire region of interest; a list of low coverage areas is included in the report as applicable. The test demonstrated 100% sensitivity and 100% specificity in identifying SNVs, indels and copy number gains. The lower limit of detection of this assay is approximately 5% variant allele fraction (VAF) for SNV/indels and 6 copies or greater for copy number gains. Variants below these thresholds may be reported at the discretion of the molecular pathology professional staff if the technical quality of the sequencing is sufficient at that location and the call is unequivocal. Based on validation, the RNA fusion testing averaged >150,000 total reads. The test demonstrated 93% sensitivity and 100% specificity in gene fusion identification compared to NGS sequencing, and 69% sensitivity and 100% specificity compared to FISH of fusion drivers (unknown fusion partner). Overall sensitivity is 78% and accuracy is 99%. The lower limit of detection is approximately 1% of total sequencing reads. LIMITATIONS: Sequence changes outside the analyzed alterations hotspots, including intronic and noncoding regions, will not be identified by this test. Insertions and deletions larger than 20 and 40 bp, respectively, may not be identified by this test. Negative results from specimens for which the percentage of tumor cells is 10% or less should be interpreted with caution. Although variant allele fraction is provided as a percentage, this is not a quantitative test (more content not included)... Performed By: #### T OPCY ####[facility] [id number] [address] OF [facility] Tanika 12-29-2024 REINA Telephone (PINEDA) JESSICAYARI ([id number]) 1955 M Date Time Provider Department 12/29/24 DALIA AUGUSTINE During your visit today, we recorded the following information about you: Everardo Mayen 12/29/2024 9:34 AM Signed Patient had pft's completed at Dr Urrutia's office. Called to request results to be faxed to [phone] Allergies As of Date: 12/29/2024 Noted Allergy Reaction PENICILLINS 12/26/2010 7 - Swelling Date Reviewed: 12/28/2024 Reviewed by: Bhakti Alfonso MA - Fully Assessed Reason for Visit: PFT Results [Other] Request Outside PFT Results [Other] Prescriptions as of 12/29/2024 - iv contrast (will be provided with radiology test) MRI Brain Inject, intravenously, once for 1 dose.No IV access, insert saline lock prior to beginning of sedation, infusion, injection of imaging exam.Discontinue saline lock post exam. If Pt. has a central line or IVAD, may access for administration according to line specific nursing protocol.Once exam is complete flush line and de-access according to line specific nursing protocol in the MR contrast administration guidelines link - predniSONE (DELTASONE) 10 mg tablet Take [...] once daily. Problem List As Of Date 12/29/2024 Noted Resolved Coronary arteriosclerosis in crow artery [I25*12/14/2013 Chest discomfort [R07.89] 12/14/2013 08/16/2022 Heart murmur, systolic [R01.1] 12/14/2013 08/16/2022 SOB (shortness of breath) on exertion [R06.02] 12/14/2013 08/16/2022 Fatigue [R53.83] 12/14/2013 08/16/2022 Hyperlipidemia LDL goal <70 [E78.5] 07/25/2016 Tobacco abuse [Z72.0] 07/25/2016 Essential hypertension [I10] 01/17/2017 S/P CABG x 4 [Z95.1] 03/10/2020 Aortic dissection (HCC) [I71.00] 08/16/2022 Nicotine use disorder, F17.2 [F17.200] 08/17/2022 Obesity, Class I, BMI 30-34.9 [E66.811] 08/17/2022 On mechanically assisted ventilation (HCC) [Z99*08/18/2022 08/18/2022 CAD (coronary artery disease) [I25.10] 08/18/2022 Postoperative pain [G89.18] 08/18/2022 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/18/2022 Coagulopathy (HCC) [D68.9] 08/18/2022 08/20/2022 MISTY (obstructive sleep apnea) [G47.33] 08/18/2022 Pulmonary edema, acute (HCC) [J81.0] 08/20/2022 08/21/2022 Encounter for support and coordination of trans*08/20/2022 Encounter Status:Closed by EVERARDO [facility]EN [facility]29/[facility] YARI LOPEZ ([id number]) 1955 M Date Time Provider Department 12/29/24 DALIA AUGUSTINE During your visit today, we recorded the following information about you: Everardo Mayen 12/29/2024 3:07 PM Signed Outside PFT Results received and uploaded Allergies As of Date: 12/29/2024 Noted Allergy Reaction PENICILLINS 12/26/2010 7 - Swelling Date Reviewed: 12/28/2024 Reviewed by: Bhakti Alfonso MA - Fully Assessed Reason for Visit: Outside PFT Results [Other] Prescriptions as of 12/29/2024 - iv contrast (will be provided with radiology test) MRI Brain Inject, intravenously, once for 1 dose.No IV access, insert saline lock prior to beginning of sedation, infusion, injection of imaging exam.Discontinue saline lock post exam. If Pt. has a central line or IVAD, may access for administration according to line specific nursing protocol.Once exam is complete flush line and de-access according to line specific nursing protocol in the MR contrast administration guidelines link - predniSONE (DELTASONE) 10 mg tablet Take [...] once daily. Problem List As Of Date 12/29/2024 Noted Resolved Coronary arteriosclerosis in crow artery [I25*12/14/2013 Chest discomfort [R07.89] 12/14/2013 08/16/2022 Heart murmur, systolic [R01.1] 12/14/2013 08/16/2022 SOB (shortness of breath) on exertion [R06.02] 12/14/2013 08/16/2022 Fatigue [R53.83] 12/14/2013 08/16/2022 Hyperlipidemia LDL goal <70 [E78.5] 07/25/2016 Tobacco abuse [Z72.0] 07/25/2016 Essential hypertension [I10] 01/17/2017 S/P CABG x 4 [Z95.1] 03/10/2020 Aortic dissection (HCC) [I71.00] 08/16/2022 Nicotine use disorder, F17.2 [F17.200] 08/17/2022 Obesity, Class I, BMI 30-34.9 [E66.811] 08/17/2022 On mechanically assisted ventilation (HCC) [Z99*08/18/2022 08/18/2022 CAD (coronary artery disease) [I25.10] 08/18/2022 Postoperative pain [G89.18] 08/18/2022 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 Comment on above: Order Comment: Speci men Type: BLOOD SPECIMENOrdering Facility: [facility] Address: [address] [place] [address] Performed By: #### 2 4321-2 ####[facility] LABCLIA [id number] [place] [address] [place] Calcium [Mass/Vol] 9.3 mg/dL Normal 8.5-10.2 [facility] Comment on above: Order Comment: Speci men Type: BLOOD SPECIMENOrdering Facility: [facility] Address: [address] [place] [address] Performed By: #### 2 4321-2 ####[facility] LABCLIA [id number] [place] [address] [place] Chloride [Moles/Vol] 105 mmol/L Normal 98-107 [facility] Comment on above: Order Comment: Speci men Type: BLOOD SPECIMENOrdering Facility: [facility] Address: [address] [place] [address] Performed By: #### 2 4321-2 ####[facility] LABCLIA [id number] [place] [address] [place] CO2 [Moles/Vol] 25 mmol/L Normal 22-30 [facility] Comment on above: Order Comment: Speci men Type: BLOOD SPECIMENOrdering Facility: [facility] Address: [address] [place] [address] Performed By: #### 2 4321-2 ####[facility] LABCLIA [id number] [place] [address] [place] Creatinine [Mass/Vol] 0.97 mg/dL Normal 0.73-1.22 [facility] Comment on above: Order Comment: Speci men Type: BLOOD SPECIMENOrdering Facility: [facility] Address: [address] [place] [address] Performed By: #### 2 4321-2 ####[facility] LABIA [id number] [place] [address] [place] Creatinine and Glomerular filtration rate.predicted panel (S/P/Bld) 85 mL/min/1.73m??? Normal >=60 [facility] Comment on above: Order Comment: Speci men Type: BLOOD SPECIMENOrdering Facility: [facility] Address: [address] [place] [address] Result Comment: Ambar mated Glomerular Filtration Rate (eGFR) is calculated using the 2020 CKD-EPI creatinine equation. This equation utilizes serum creatinine, sex, and age as parameters. The creatinine assay has traceable calibration to isotope dilution-mass spectrometry. Refer to KDIGO guidelines for clinical interpretation. In patients with unstable renal function, e.g. those with acute kidney injury, the eGFR may not accurately reflect actual GFR. Performed By: #### 2 4321-2 ####[facility] LABIA [id number] [place] [id number] [place] Glucose [Mass/Vol] 142 mg/dL High 74-99 [facility] Comment on above: Order Comment: Speci men Type: BLOOD SPECIMENOrdering Facility: [facility] Address: [address] [place] [address] Result Comment: The [place] Diabetes Association (ADA) provides guidance for cutoff values for fasting glucose and random glucose. The ADA defines fasting as no caloric intake for at least 8 hours. Fasting plasma glucose results between 100 to 125 [...] Standards of Medical Care in Diabetes 2016, [place] [employer] Association. Diabetes Care. 2016.39(Suppl 1). Performed By: #### 2 4321-2 ####[facility] LABCLIA [id number] [place] [address] [place] Potassium [Moles/Vol] 4.0 mmol/L Normal 3.7-5.1 [facility] Comment on above: Order Comment: Speci men Type: BLOOD SPECIMENOrdering Facility: [facility] Address: [address] [place] [address] Performed By: #### 2 1-2 ####[facility] LABIA [id number] [place] [address] [place] Sodium [Moles/Vol] 143 mmol/L Normal 136-144 [facility] Comment on above: Order Comment: Sherifi men Type: BLOOD SPECIMENOrdering Facility: [facility] Address: [address] [place] [address] Performed By: #### 2 1-2 ####[facility] LABCLIA [id number] [place] [address] [place] Urea nitrogen [Mass/Vol] 10 mg/dL Normal 9-24 [facility] Comment on above: Order Comment: Sherifi men Type: BLOOD SPECIMENOrdering Facility: [facility] Address: [address] [place] [address] Performed By: #### 2 4321-2 ####[facility] LABCLIA [id number] [place] [address] [place] CBC panel Auto (Bld)on 12-28 Erythrocyte distribution width (RBC) [Ratio] 15.5 % High 11.5-15.0 [facility] Comment on above: Order Comment: Speci men Type: BLOOD SPECIMENOrdering Facility: [facility] Address: [address] [place] [address] Performed By: #### 5 8410-2 ####[facility] LABCLIA [id number] [place] [address] [place] Hematocrit (Bld) [Volume fraction] 38.5 % Low 39.0-51.0 [facility] Comment on above: Order Comment: Speci men Type: BLOOD SPECIMENOrdering Facility: [facility] Address: [address] [place] [address] Performed By: #### 5 8410-2 ####[facility] LABCLIA [id number] [address] [place] Hemoglobin (Bld) [Mass/Vol] 12.9 g/dL Low 13.0-17.0 [facility] Comment on above: Order Comment: Speci men Type: BLOOD SPECIMENOrdering Facility: [facility] Address: [address] [place] [address] Performed By: #### 5 8410-2 ####[facility] LABIA [id number] [place] [address] [place] MCH (RBC) [Entitic mass] 33.0 pg Normal 26.0-34.0 [facility] Comment on above: Order Comment: Speci men Type: BLOOD SPECIMENOrdering Facility: [facility] Address: [address] [place] [address] Performed By: #### 5 8410-2 ####[facility] LABCLIA [id number] [place] [address] [place] MCHC (RBC) [Mass/Vol] 33.5 g/dL Normal 30.5-36.0 [facility] Comment on above: Order Comment: Speci men Type: BLOOD SPECIMENOrdering Facility: [facility] Address: [address] [place] [address] Performed By: #### 5 8410-2 ####[facility] LABIA [id number] [place] [address] [place] MCV (RBC) [Entitic vol] 98.5 fL Normal 80.0-100.0 C [facility] Comment on above: Order Comment: Speci men Type: BLOOD SPECIMENOrdering Facility: [facility] Address: [address] [place] [address] Performed By: #### 5 8410-2 ####[facility] [id number] [place] [address] [place] Nucleated RBC (Bld) [#/Vol] 10*3/uL Normal <0.01 [facility] Comment on above: Order Comment: Speci men Type: BLOOD SPECIMENOrdering Facility: [facility] Address: [address] [place] [address] Performed By: #### 5 8410-2 ####[facility] [id number] [place] [address] [place] Platelet mean volume (Bld) [Entitic vol] 10.4 fL Normal 9.0-12.7 [facility] Comment on above: Order Comment: Speci men Type: BLOOD SPECIMENOrdering Facility: [facility] Address: [address] [place] [address] Performed By: #### 5 8410-2 ####[facility] LABIA [id number] [place] [address] [place] Platelets (Bld) [#/Vol] 236 10*3/uL Normal 150-400 [facility] Comment on above: Order Comment: Speci men Type: BLOOD SPECIMENOrdering Facility: [facility] Address: [address] [place] [address] Performed By: #### 5 8410-2 ####[facility] LABCLIA [id number] [place] [address] [place] RBC (Bld) [#/Vol] 3.91 10*6/uL Low 4.20-6.00 [facility] Comment on above: Order Comment: Speci men Type: BLOOD SPECIMENOrdering Facility: [facility] Address: [address] [place] [address] Performed By: #### 5 8410-2 ####[facility] LABCLIA [id number] [place] [address] [place] WBC (Bld) [#/Vol] 7.91 10*3/uL Normal 3.70-11.00 [facility] Comment on above: Order Comment: Speci men Type: BLOOD SPECIMENOrdering Facility: [facility] Address: [address] [place] [address] Performed By: #### 5 8410-2 ####[facility] LABIA [id number] [place] [address] [place] CNOVon 12-28-2024 CNOV Office Visit (PMNA11 ) YARI LOPEZ ([id number]) 1955 M Date Time Provider Department 12/28/24 11:00 AM DALIA AUGUSTINE PMNA11 During your visit today, we recorded the following information about you: Temperature Pulse Respiration Blood pressure 97.4 degrees 70/minute 16/minute 133/62 Weight 100.5 kg Daila Augustine MD 12/28/2024 12:58 PM Signed INTERVENTIONAL PULMONARY MEDICINE CONSULTATION PLEASE DO NOT REMOVE FROM THE CHART OR MODIFY PRINTED COPY Patient Name: Yari Lopez : 1955 PRIMARY CARE PHYSICIAN: Tania West MD REFERRING PHYSICIAN: Dr Colton Urrutia Consultation requested by for an opinion regarding No diagnosis found.. My final recommendations/evaluat ion will be communicated back to the requesting physician by way of shared medical record or letter via US mail CHIEF COMPLAINT: Lung Mass HISTORY OF PRESENT ILLNESS: Yari Lopez is a 69 year old male, BMI 30.9 kg/m2, with a history of Type A aortic dissection s/p repair (2021) and CABG in 2019. H/o cigarette use. L carotid stenosis s/p bypass in 01/2024 CT Chest 2021 with 10 mm RUL nodule, now has grown to 25mm Oct 2024. Not present in 2019. Saw cardiac surgery in 10/2024 PFTs from 2019 still within reasonable possibility of surgical candidacy. Will repeat for surgical evaluation. Will need a PET scan and Brain MRI for staging purposes. - Doing overall well - SOB with stairs or incline - No chest pain/discomfort - No cough - No hemoptysis - No Wheezing - No LE edema - No heartburn - Weight is stable and Appetite is good - No fever chills or night sweats - No bumps, lumps in neck - Stable vision and hearing - No gross hematuria - No muscle or joint pain - No focal numbness or weakness - No rash - Sleeps overall well PAST MEDICAL HISTORY Diagnosis Date Coronary artery disease without angina pectoris Hernia 1971 Hypercholesteremia Hypertension IBS (irritable bowel syndrome) Osteoarthritis of right knee PAST SURGICAL HISTORY Procedure Laterality Date CABG (4) VEIN GRAFTS AND ARTERIAL GRAFT(S) 03/08/2020 CARDIAC CATH 12/31/2019 @ [facility] by Dr. He CHEST TUBE - INSERT 1984 HAD PNEUMONIA FOOT SURGERY HX plantars wart outer edge of foot HERNIA REPAIR HX FAMILY HISTORY Problem Relation Age of Onset Ischemic Heart Disease Mother Ischemic Heart Disease Father other (HEART ATTACK) Father Breast Cancer Sister Coronary Artery Disease Sister Social History Tobacco Use Smoking status: Former Current packs/day: 0.00 Average packs/day: 1.5 packs/day for 55.0 years (82.5 ttl pk-yrs) Types: Cigarettes Start date: 01/16/1965 Quit date: 01/16/2020 Years since quittin.9 Smokeless tobacco: Current Types: Snuff Vaping Use Vaping status: Never Used Substance Use Topics Alcohol use: Yes Comment: 1-2 daily Drug use: Not Currently ALLERGIES: ALLERGIES Allergen Reactions Penicillins Swelling CURRENT OUTPATIENT MEDICATIONS: predniSONE (DELTASONE) 10 mg tablet Take 10 mg by mouth once daily. methotrexate 2.5 mg tablet Take 2.5 mg by mouth every Saturday. 5 tablets 1x a week on Saturdays folic acid 1 mg tablet Take 1 mg by mouth once daily. vortioxetine (TRINTELLIX) 20 mg tablet Take 1 tablet by mouth once daily. losartan (COZAAR) 25 mg tablet Take a half tablet by mouth daily with lunch. aluminum-magnesium hydroxide-simethicone (MAALOX,MYLANTA,MAG-AL PLUS) 200-200-20 mg/5 mL suspension Take 30 mL by mouth as needed (Second Line Therapy). atorvastatin (LIPITOR) 40 mg tablet Take 1 tablet by mouth daily at bedtime. guaiFENesin (MUCINEX) 600 mg 12 hr tablet Take 1 tablet by mouth every 12 hours as needed (cough). lidocaine (SALONPAS) 4 % patch Apply 1 [...] ounces of liquid and take as directed. aspirin, enteric coated (ECOTRIN LOW STRENGTH) 81 [...] Take 2,000 Units by mouth once daily. glimepiride (AMARYL) 1 mg tablet Take 0.5 tablets by mouth daily with breakfast. pantoprazole DR (PROTONIX) 20 mg tablet Antonio (more content not included)... Normal [facility] CNPAnju 12-28-2024 CNPN Telephone (RIQ) YARI LOPEZ ([id number]) 1955 M Date Time Provider Department 12/28/24 DALIA AUGUSTINE [facility] During your visit today, we recorded the following information about you: Fiordaliza Lew 12/28/2024 1:17 PM Signed This form is used for MAIN CAMPUS APPOINTMENTS ONLY. Is this request for a Main [place] PET scan appointment? Yes: Coil Cleaner: Fiordaliza Lew Requesting Person Dalia Augustine [phone] Area Code + Phone/Pager: [phone] Who do we call to schedule this appointment? Patient Requesting Staff [phone] Area Code + Phone/Pager: N/A PET Orders (A delay in scheduling will result if the orders are not present at time of review): Internal ADDITIONAL ACTION MAY BE REQUIRED IF PATIENTS OON INSURANCE OR SELF PAY COVERAGE HAS NOT BEEN CLEARED FOR REQUESTED APPOINTMENT. Scheduling: PRASHANT: As soon as insurance will allow What account will this PET appointment be linked to? P/F Type of PET: Oncology: Are there additional diagnostic CT scans required to be done at time of PET scan? No Is the request for a PET MR ? No What account will diagnostic testing appointment be linked to? P/F Will the patient need anesthesia? NO Send requests to P COORD REVIEW Sharon Alejo RN 12/28/2024 4:02 PM Signed [facility] PET - ORDER Skull to Thigh PET CT With DX CT/MR: No Comments for Automatic Coin Machine Mechanic: PRASHANT: As soon as insurance will allow Will the patient need anesthesia: no Cleared By: ORM / GPS to process Primary Insurance: [employer] DX Imaging: N/A Diagnosis: 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 H/o cigarette use. L carotid stenosis s/p bypass in 01/202412-28-24 CT Chest abnormal finding Initial/Subsequent: Initial PET Imaging Protocol: Top Of Ear To Proximal Thigh Diagnostic Imaging Requested: No Is this a pretreatment and an initial PET scan: Please schedule as requested Route to or Requested Scheduling Pool: P PET LAUNCH MANAGER Gigi YOUNG [facility]ER[facility] SHEILA([place])Gigi [facility] Crystal Gonzalez 12/29/2024 8:04 AM Signed Scheduled 01/06 @ 1500 Allergies As of Date: 12/28/2024 Noted Allergy Reaction PENICILLINS 12/26/2010 7 - Swelling Date Reviewed: 12/28/2024 Reviewed by: Bhakti Alfonso MA - Fully Assessed Reason for Visit: Nm Pet Request [[id number]] Prescriptions as of 12/29/2024 - iv contrast (will be provided with radiology test) MRI Brain Inject, intravenously, once for 1 dose.No IV access, insert saline lock prior to beginning of sedation, infusion, injection of imaging exam.Discontinue saline lock post exam. If Pt. has a central line or IVAD, may access for administration according to line specific nursing protocol.Once exam is complete flush line and de-access according to line specific nursing protocol in the MR contrast administration guidelines link - predniSONE (DELTASONE) 10 mg tablet Take [...] mg by mouth once daily. - Cholecalciferol, Vit (more content not included)... Normal [facility] CT CHEST WO IVCONon 12-28-19 CT CHEST WO IVCON * * *Final Report* * * DATE OF EXAM: Dec 28 2024 12:57PM [facility] [place]ST WO IVCON / PROCEDURE REASON: multiple diagnoses * * * * Physician Interpretation * * * * EXAMINATION: CHEST CT WITHOUT CONTRAST CLINICAL HISTORY: 69-year-old male with history of type A aortic dissection status post repair with pulmonary nodules. Technique: Spiral CT acquisition of the chest from the thoracic inlet to the upper abdomen without contrast. MQ: CTCWO_6 CT Radiation dose: Integrated Dose-length product (DLP) for this visit = 545 mGy*cm CT Dose Reduction Employed: mAs-kVp adjusted based on patient size-age Comparison: Chest CT exams dated 10/29/2024 and 10/29/2022 RESULT: Limitations: None. Lines, tubes, and devices: None. Lung parenchyma and airways: There is moderate severity upper lobe predominant centrilobular emphysema associated with bronchial wall thickening a right upper lobe part solid nodule measuring 26 x 23 mm, image 161 measured 24 x 20 mm on the 10/29/2024 exam, previously measuring 13 x 10 mm on the 2021 exam. There are numerous additional small (5 mm less) pulmonary nodular densities in the upper lung zones bilaterally including a 3 mm right upper lobe nodule, image 126 a 4 mm right upper lobe nodule, image 152 a 3 mm right upper lobe nodule, image to 33; a 3 mm left upper lobe nodule, image 46, and a 4 mm left upper lobe nodule, image 137, overall probably unchanged since 10/29/2024 although the assessment is limited due to respiratory motion on the prior chest CT. Numerous pulmonary nodules are present in the upper lobes on the prior chest CT from 10/29/2022. No consolidation. No pulmonary edema. The central airways are patent without suspicious endobronchial lesion. Pleural space: No pleural effusion, pleural thickening, or pneumothorax. Lower neck, lymph nodes, and mediastinum: A 1.5 cm indeterminate hypodense right thyroid nodule, image 1 appears unchanged. No supraclavicular or axillary lymphadenopathy. No enlarged mediastinal or hilar lymph nodes. A right hilar lymph node, image 184 of series 5 measures 0.9 cm in short axis. The esophagus is decompressed. Heart, pericardium, and thoracic vessels: The patient is status post median sternotomy for thoracic aortic repair and CABG. There is graft material within the ascending aorta. Distal to the graft, the thoracic aorta is nondilated and mildly atherosclerotic. The main pulmonary artery is nondilated measuring 2.5 cm in diameter. Moderate to severe diffuse crow three-vessel coronary artery atherosclerotic calcifications are present, however, this exam is not optimized for coronary assessment. The left atrium appears enlarged. No pericardial effusion. There are retained epicardial leads. Bones and soft tissues: The sternum is well approximated by median sternotomy wires. No destructive lytic or blastic bone lesion. Multilevel endplate degenerative changes are present throughout the imaged spine. Upper abdomen: Low-attenuation hepatic lesions are unchanged, image 326 of series 3, too small to characterize although likely benign given small size. Otherwise, the imaged solid abdominal organs are unremarkable on this noncontrast exam. Mild atherosclerosis is present in the proximal abdominal aorta and branch vessels. Localizer images: No additional findings. IMPRESSION: 1. A 26 x 23 mm right upper lobe part solid (predominantly solid) pulmonary nodule has enlarged compared to prior exams and is highly suspicious for a primary lung malignancy. 2. Numerous additional small (5 mm or less) pulmonary nodules are present, overall not substantially changed since the prior chest CT from 10/29/2024 with numerous nodules also present on the more remote chest CT from 10/29/2022. These nodules are indeterminate although may represent a combination of respiratory bronchiolitis and Langerhans cell histiocytosis. Underlying neoplastic nodules are possible and continued follow-up is recommended. 3. No thoracic lymphadenopathy. 4. Postsurgical changes of median sternotomy for CABG and thoracic aortic repair. 5. Emphysema. 6. Unchanged indeterminate 1.5 cm right thyroid nodule, which could be further assessed with thyroid ultrasound. Marklogic Developer: [facility] Transcribe Date/Time: Dec 28 2024 1:10P Dictated by : MIAH WOODRUFF MD This examination was interpreted and the report reviewed and electronically signed by: MIAH WOODRUFF MD on Dec 28 2024 1:41PM EST [id number] Normal [facility] CT Chest WO contraston 12-28 IMPRESSION: 1. A 26 x 23 mm right upper lobe part solid (predominantly solid) pulmonary nodule has enlarged compared to prior exams and is highly suspicious for a primary lung malignancy. 2. Numerous additional small (5 mm or less) pulmonary nodules are present, overall not substantially changed since the prior chest CT from 10/29/2024 with numerous nodules also present on the more remote chest CT from 10/29/2022. These nodules are indeterminate although may represent a combination of respiratory bronchiolitis and Langerhans cell histiocytosis. Underlying neoplastic nodules are possible and continued follow-up is recommended. 3. No thoracic lymphadenopathy. 4. Postsurgical changes of median sternotomy for CABG and thoracic aortic repair. 5. Emphysema. 6. Unchanged indeterminate 1.5 cm right thyroid nodule, which could be further assessed with thyroid ultrasound. Marklogic Developer: [facility] Transcribe Date/Time: Dec 28 2024 1:10P Dictated by : MIAH WOODRUFF MD This examination was interpreted and the report reviewed and electronically signed by: MIAH WOODRUFF MD on Dec 28 2024 1:41PM EST DIVISION OF RADIOLOGY * * *Final Report* * * DATE OF EXAM: Dec 28 2024 12:57PM [facility] [facility] [place] CHEST WO IVCON / PROCEDURE REASON: multiple diagnoses * * * * Physician Interpretation * * * * EXAMINATION: CHEST CT WITHOUT CONTRAST CLINICAL HISTORY: 69-year-old male with history of type A aortic dissection status post repair with pulmonary nodules. Technique: Spiral CT acquisition of the chest from the thoracic inlet to the upper abdomen without contrast. MQ: CTCWO_6 CT Radiation dose: Integrated Dose-length product (DLP) for this visit = 545 mGy*cm CT Dose Reduction Employed: mAs-kVp adjusted based on patient size-age Comparison: Chest CT exams dated 10/29/2024 and 10/29/2022 RESULT: Limitations: None. Lines, tubes, and devices: None. Lung parenchyma and airways: There is moderate severity upper lobe predominant centrilobular emphysema associated with bronchial wall thickening a right upper lobe part solid nodule measuring 26 x 23 mm, image 161 measured 24 x 20 mm on the 10/29/2024 exam, previously measuring 13 x 10 mm on the 2021 exam. There are numerous additional small (5 mm less) pulmonary nodular densities in the upper lung zones bilaterally including a 3 mm right upper lobe nodule, image 126 a 4 mm right upper lobe nodule, image 152 a 3 mm right upper lobe nodule, image to 33; a 3 mm left upper lobe nodule, image 46, and a 4 mm left upper lobe nodule, image 137, overall probably unchanged since 10/29/2024 although the assessment is limited due to respiratory motion on the prior chest CT. Numerous pulmonary nodules are present in the upper lobes on the prior chest CT from 10/29/2022. No consolidation. No pulmonary edema. The central airways are patent without suspicious endobronchial lesion. Pleural space: No pleural effusion, pleural thickening, or pneumothorax. Lower neck, lymph nodes, and mediastinum: A 1.5 cm indeterminate hypodense right thyroid nodule, image 1 appears unchanged. No supraclavicular or axillary lymphadenopathy. No enlarged mediastinal or hilar lymph nodes. A right hilar lymph node, image 184 of series 5 measures 0.9 cm in short axis. The esophagus is decompressed. Heart, pericardium, and thoracic vessels: The patient is status post median sternotomy for thoracic aortic repair and CABG. There is graft material within the ascending aorta. Distal to the graft, the thoracic aorta is nondilated and mildly atherosclerotic. The main pulmonary artery is nondilated measuring 2.5 cm in diameter. Moderate to severe diffuse crow three-vessel coronary artery atherosclerotic calcifications are present, however, this exam is not optimized for coronary assessment. The left atrium appears enlarged. No pericardial effusion. There are retained epicardial leads. Bones and soft tissues: The sternum is well approximated by median sternotomy wires. No destructive lytic or blastic bone lesion. Multilevel endplate degenerative changes are present throughout the imaged spine. Upper abdomen: Low-attenuation hepatic lesions are unchanged, image 326 of series 3, too small to characterize although likely benign given small size. Otherwise, the imaged solid abdominal organs are unremarkable on this noncontrast exam. Mild atherosclerosis is present in the proximal abdominal aorta and branch vessels. Localizer images: No additional findings. DIVISION OF RADIOLOGY Provider, [facility] - 12/28/2024 * * *Final Report* * * DATE OF EXAM: Dec 28 2024 12:57PM [facility] [facility] [place] CHEST WO IVCON / PROCEDURE REASON: multiple diagnoses * * * * Physician Interpretation * * * * EXAMINATION: CHEST CT WITHOUT CONTRAST CLINICAL HISTORY: 69-year-old male with history of type A aortic dissection status post repair with pulmonary nodules. Technique: Spiral CT acquisition of the chest from the thoracic inlet to the upper abdomen without contrast. MQ: CTCWO_6 CT Radiation dose: Integrated Dose-length product (DLP) for this visit = 545 mGy*cm CT Dose Reduction Employed: mAs-kVp adjusted based on patient size-age Comparison: Chest CT exams dated 10/29/2024 and 10/29/2022 RESULT: Limitations: None. Lines, tubes, and devices: None. Lung parenchyma and airways: There is moderate severity upper lobe predominant centrilobular emphysema associated with bronchial wall thickening a right upper lobe part solid nodule measuring 26 x 23 mm, image 161 measured 24 x 20 mm on the 10/29/2024 exam, previously measuring 13 x 10 mm on the 2021 exam. There are numerous additional small (5 mm less) pulmonary nodular densities in the upper lung zones bilaterally including a 3 mm right upper lobe nodule, image 126 a 4 mm right upper lobe nodule, image 152 a 3 mm right upper lobe nodule, image to 33; a 3 mm left upper lobe nodule, image 46, and a 4 mm left upper lobe nodule, image 137, overall probably unchanged since 10/29/2024 although the assessment is limited due to respiratory motion on the prior chest CT. Numerous pulmonary nodules are present in the upper lobes on the prior chest CT from 10/29/2022. No consolidation. No pulmonary edema. The central airways are patent without suspicious endobronchial lesion. Pleural space: No pleural effusion, pleural thickening, or pneumothorax. Lower neck, lymph nodes, and mediastinum: A 1.5 cm indeterminate hypodense right thyroid nodule, image 1 appears unchanged. No supraclavicular or axillary lymphadenopathy. No enlarged mediastinal or hilar lymph nodes. A right hilar lymph node, image 184 of series 5 measures 0.9 cm in short axis. The esophagus is decompressed. Heart, pericardium, and thoracic vessels: The patient is status post median sternotomy for thoracic aortic repair and CABG. There is graft material within the ascending aorta. Distal to the graft, the thoracic aorta is nondilated and mildly atherosclerotic. The main pulmonary artery is nondilated measuring 2.5 cm in diameter. Moderate to severe diffuse crow three-vessel coronary artery atherosclerotic calcifications are present, however, this exam is not optimized for coronary assessment. The left atrium appears enlarged. No pericardial effusion. There are retained epicardial leads. Bones and soft tissues: The sternum is well approximated by median sternotomy wires. No destructive lytic or blastic bone lesion. Multilevel endplate degenerative changes are present throughout the imaged spine. Upper abdomen: Low-attenuation hepatic lesions are unchanged, image 326 of series 3, too small to characterize although likely benign given small size. Otherwise, the imaged solid abdominal organs are unremarkable on this noncontrast exam. Mild atherosclerosis is present in the proximal abdominal aorta and branch vessels. Localizer images: No additional findings. IMPRESSION IMPRESSION: 1. A 26 x 23 mm right upper lobe part solid (predominantly solid) pulmonary nodule has enlarged compared to prior exams and is highly suspicious for a primary lung malignancy. 2. Numerous additional small (5 mm or less) pulmonary nodules are present, overall not substantially changed since the prior chest CT from 10/29/2024 with numerous nodules also present on the more remote chest CT from 10/29/2022. These nodules are indeterminate although may represent a combination of respiratory bronchiolitis and Langerhans cell histiocytosis. Underlying neoplastic nodules are possible and continued follow-up is recommended. 3. No thoracic lymphadenopathy. 4. Postsurgical changes of median sternotomy for CABG and thoracic aortic repair. 5. Emphysema. 6. Unchanged indeterminate 1.5 cm right thyroid nodule, which could be further assessed with thyroid ultrasound. Marklogic Developer: [employer] Transcribe Date/Time: Dec 28 2024 1:10P Dictated by : MIAH WOODRUFF MD This examination was interpreted and the report reviewed and electronically signed by: MIAH WOODRUFF MD on Dec 28 2024 1:41PM EST [facility] Radiology Study observation (narrative) [facility] CT Chest WO contrastOrdered By: Ccf Provider on 12-28-2024 [facility] ECG COMPLETEon 12-28-2024 ECG COMPLETE Ventricular Rate : 6 6 BPM Atrial Rate : 66 BPM P-R Interval : 190 ms QRS Duration : 162 ms Q-T Interval : 466 ms QTC Calculation(Bazett) : 488 ms Calculated P Cran[place] : 60 degrees Calculated R [place] : -54 degrees Calculated T [place] : 35 degrees NORMAL SINUS RHYTHM POSSIBLE LEFT ATRIAL ENLARGEMENT LEFT AXIS DEVIATION COMPLETE RIGHT BUNDLE BRANCH BLOCK ABNORMAL ECG Confirmed by ZAHNG BEARDEN MD ([id number]) on 01/04/2025 10:00:42 PM NAME : YARI LOPEZ PID : [id number] : 1955 Gender : Male Race : ORD : [id number] Procedure Date : Dec 28 2024 12:22:04 Edit Date : Jan 04 2025 22:00:43 Diagnosis: NORMAL SINUS RHYTHM POSSIBLE LEFT ATRIAL ENLARGEMENT LEFT AXIS DEVIATION COMPLETE RIGHT BUNDLE BRANCH BLOCK ABNORMAL ECG Confirmed by ZHANG BEARDEN MD ([id number]) on 01/04/2025 10:00:42 PM Test Reason : Location : 119 : A17 A17 Overread By : ZHANG BEARDEN MD Edited By : ZHANG BEARDEN MD Referred By : BORIS EDGE Acquired by : NAOMI MARTINEZ [facility] NURSING PROGon 12-23-2024 NURSING PROG HNO ID: [id number] Author: KOFFI ALANIS RN Service: Nursing Author Type: Registered Nurse Type: Nursing Progress Note Filed: 12/23/2024 14:38 Note Text: AMBULATORY PATIENT EDUCATION TOPIC: Bronchoscopy instruction READINESS TO LEARN COGNITIVE ABILITY: Alert and oriented MOTIVATION TO LEARN: Interested FAMILY SUPPORT: Unable to assess - Family not present INSTRUCTION PROVIDED TO: Patient PATIENT LEARNS BEST BY: Verbal Instruction FACTORS AFFECTING LEARNING: None PHYSICAL LIMITATIONS AFFECTING LEARNING: None LEARNING RESPONSE DIAGNOSIS: pulmonary disese METHOD OF INSTRUCTION: Verbal instruction PATIENT / FAMILY RESPONSE: Verbalizes understanding of: PRE-PROCEDURE INSTRUCTIONS-Correct action to take to follow pre-procedure instructions FOLLOW-UP PLAN: Complete - No need for follow-up Patient instructed to call with any further issues SUPPLEMENTAL MATERIAL: None REFERRAL (RECOMMENDATION): None Electronically Signed By: Koffi Alanis RN In Department: ADMITTING Normal [facility] YARI LOPEZ ([id number]) 1955 M Date Time Provider Department 12/14/24 [facility] During your visit today, we recorded the following information about you: Everardo Mayen 12/14/2024 9:56 AM Signed Outside medical records received and uploaded Allergies As of Date: 12/14/2024 Noted Allergy Reaction PENICILLINS 12/26/2010 7 - Swelling Date Reviewed: 10/29/2024 Reviewed by: Lina Hidalgo MA - Fully Assessed Reason for Visit: Received Outside Medical Records [[id number]] Prescriptions as of 12/15/2024 - predniSONE (DELTASONE) 10 mg tablet Take [...] once daily. Problem List As Of Date 12/14/2024 Noted Resolved Coronary arteriosclerosis in crow artery [I25*12/14/2013 Chest discomfort [R07.89] 12/14/2013 08/16/2022 Heart murmur, systolic [R01.1] 12/14/2013 08/16/2022 SOB (shortness of breath) on exertion [R06.02] 12/14/2013 08/16/2022 Fatigue [R53.83] 12/14/2013 08/16/2022 Hyperlipidemia LDL goal <70 [E78.5] 07/25/2016 Tobacco abuse [Z72.0] 07/25/2016 Essential hypertension [I10] 01/17/2017 S/P CABG x 4 [Z95.1] 03/10/2020 Aortic dissection (HCC) [I71.00] 08/16/2022 Nicotine use disorder, F17.2 [F17.200] 08/17/2022 Obesity, Class I, BMI 30-34.9 [E66.811] 08/17/2022 On mechanically assisted ventilation (HCC) [Z99*08/18/2022 08/18/2022 CAD (coronary artery disease) [I25.10] 08/18/2022 Postoperative pain [G89.18] 08/18/2022 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/18/2022 Coagulopathy (HCC) [D68.9] 08/18/2022 08/20/2022 MISTY (obstructive sleep apnea) [G47.33] 08/18/2022 Pulmonary edema, acute (HCC) [J81.0] 08/20/2022 08/21/2022 Encounter for support and coordination of trans*08/20/2022 Encounter Status:Closed by [facility]ARD[id number]AR[facility] ([id number]) 1955 M Date Time Provider Department 12/14/24 JOANA HAIRSTON [id number] During your visit today, we recorded the following information about you: Allergies As of Date: 12/14/2024 Noted Allergy Reaction PENICILLINS 12/26/2010 7 - Swelling Date Reviewed: 10/29/2024 Reviewed by: Lina Hidalgo MA - Fully Assessed Reason for Visit: Appointment [186] Cmt: PreOp Bronch Prescriptions as of 12/14/2024 - predniSONE (DELTASONE) 10 mg tablet Take [...] once daily. Problem List As Of Date 12/14/2024 Noted Resolved Coronary arteriosclerosis in crow artery [I25*12/14/2013 Chest discomfort [R07.89] 12/14/2013 08/16/2022 Heart murmur, systolic [R01.1] 12/14/2013 08/16/2022 SOB (shortness of breath) on exertion [R06.02] 12/14/2013 08/16/2022 Fatigue [R53.83] 12/14/2013 08/16/2022 Hyperlipidemia LDL goal <70 [E78.5] 07/25/2016 Tobacco abuse [Z72.0] 07/25/2016 Essential hypertension [I10] 01/17/2017 S/P CABG x 4 [Z95.1] 03/10/2020 Aortic dissection (HCC) [I71.00] 08/16/2022 Nicotine use disorder, F17.2 [F17.200] 08/17/2022 Obesity, Class I, BMI 30-34.9 [E66.811] 08/17/2022 On mechanically assisted ventilation (HCC) [Z99*08/18/2022 08/18/2022 CAD (coronary artery disease) [I25.10] 08/18/2022 Postoperative pain [G89.18] 08/18/2022 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/18/2022 Coagulopathy (HCC) [D68.9] 08/18/2022 08/20/2022 MISTY (obstructive sleep apnea) [G47.33] 08/18/2022 Pulmonary edema, acute (HCC) [J81.0] 08/20/2022 08/21/2022 Encounter for support and coordination of trans*08/20/2022 Encounter Status:Closed by JOANA LA on 12/14/24 [facility] 12-10-20[facility] YARI LOPEZ ([id number]) 1955 M Date Time Provider Department 12/10/24 EVERARDO MAYEN During your visit today, we recorded the following information about you: Everardo Mayen 12/10/2024 3:[address] Colton Urrutia's office requesting medical records / office notes Allergies As of Date: 12/10/2024 Noted Allergy Reaction PENICILLINS 12/26/2010 7 - Swelling Date Reviewed: 10/29/2024 Reviewed by: Lina Hidalgo MA - Fully Assessed Reason for Visit: Request Outside Medical Records [[id number]] Prescriptions as of 12/10/2024 - predniSONE (DELTASONE) 10 mg tablet Take [...] once daily. Problem List As Of Date 12/10/2024 Noted Resolved Coronary arteriosclerosis in crow artery [I25*12/14/2013 Chest discomfort [R07.89] 12/14/2013 08/16/2022 Heart murmur, systolic [R01.1] 12/14/2013 08/16/2022 SOB (shortness of breath) on exertion [R06.02] 12/14/2013 08/16/2022 Fatigue [R53.83] 12/14/2013 08/16/2022 Hyperlipidemia LDL goal <70 [E78.5] 07/25/2016 Tobacco abuse [Z72.0] 07/25/2016 Essential hypertension [I10] 01/17/2017 S/P CABG x 4 [Z95.1] 03/10/2020 Aortic dissection (HCC) [I71.00] 08/16/2022 Nicotine use disorder, F17.2 [F17.200] 08/17/2022 Obesity, Class I, BMI 30-34.9 [E66.811] 08/17/2022 On mechanically assisted ventilation (HCC) [Z99*08/18/2022 08/18/2022 CAD (coronary artery disease) [I25.10] 08/18/2022 Postoperative pain [G89.18] 08/18/2022 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/18/2022 Coagulopathy (HCC) [D68.9] 08/18/2022 08/20/2022 MISTY (obstructive sleep apnea) [G47.33] 08/18/2022 Pulmonary edema, acute (HCC) [J81.0] 08/20/2022 08/21/2022 Encounter for support and coordination of trans*08/20/2022 Encounter Status:Closed by EVERARDO MAYEN on 12/10/24 [facility] Tanika 12-09-2024 [facility] Telephone (PULMMN) YARI LOPEZ ([id number]) 1955 M Date Time Provider Department 12/09/24 EVERARDO MAYEN During your visit today, we recorded the following information about you: Everardo Mayen 12/09/2024 3:27 PM Signed Referring Physician: Dr Colton Urrutia Address: [address] [place] [address] Phone #: [phone] Fax #: [phone] Reason for referral: EBUS with biopsy Is there CareEverywhere Records: Yes Is there Imaging available: Yes - Recent CT: Yes - Date of CT: 10/29/24 at [facility] Leyla from Dr Urrutia's office requesting callback to confirm once patient has been scheduled at [phone] Please call Coleen to schedule at [phone] Allergies As of Date: 12/09/2024 Noted Allergy Reaction PENICILLINS 12/26/2010 7 - Swelling Date Reviewed: 10/29/2024 Reviewed by: Lina Hidalgo MA - Fully Assessed Reason for Visit: EBUS Referral [Other] Prescriptions as of 12/17/2024 - predniSONE (DELTASONE) 10 mg tablet Take [...] once daily. Problem List As Of Date 12/09/2024 Noted Resolved Coronary arteriosclerosis in crow artery [I25*12/14/2013 Chest discomfort [R07.89] 12/14/2013 08/16/2022 Heart murmur, systolic [R01.1] 12/14/2013 08/16/2022 SOB (shortness of breath) on exertion [R06.02] 12/14/2013 08/16/2022 Fatigue [R53.83] 12/14/2013 08/16/2022 Hyperlipidemia LDL goal <70 [E78.5] 07/25/2016 Tobacco abuse [Z72.0] 07/25/2016 Essential hypertension [I10] 01/17/2017 S/P CABG x 4 [Z95.1] 03/10/2020 Aortic dissection (HCC) [I71.00] 08/16/2022 Nicotine use disorder, F17.2 [F17.200] 08/17/2022 Obesity, Class I, BMI 30-34.9 [E66.811] 08/17/2022 On mechanically assisted ventilation (HCC) [Z99*08/18/2022 08/18/2022 CAD (coronary artery disease) [I25.10] 08/18/2022 Postoperative pain [G89.18] 08/18/2022 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/18/2022 Coagulopathy (HCC) [D68.9] 08/18/2022 08/20/2022 MISTY (obstructive sleep apnea) [G47.33] 08/18/2022 Pulmonary edema, acute (HCC) [J81.0] 08/20/2022 08/21/2022 Encounter for support and coordination of trans*08/20/2022 Encounter Status:Closed by EVERARDO MAYEN on 12/17/24 Normal [facility] Albumin to globulin ratioOrd ered By: Naomi West on 12-02-2024 Albumin/Globulin [Mass ratio] 1.1 {ratio} 0.9-2.4 [facility] Bilirubin, totalOrdered By: Naomi West on 12-02-2024 Bilirubin [Mass/Vol] 0.40 mg/dL 0.20-1.00 [facility] Comment on above: For patients on eltr ombopag therapy, use of Dimension [place] TBIL is not recommended. Blood urea nitrogen (BUN)/cr eatinine ratioOrdered By: Naomi West on 12-02-2024 Urea nitrogen/Creatinine [Mass ratio] 15.7 mg/mg 10-20 [facility] Carbon dioxide measurementOr dered By: Naomi West on 12-02-2024 CO2 [Moles/Vol] 25.0 mmol/L 21.0-32.0 [facility] Chloride measurementOrdered By: Naomi West on 12-02-2024 Chloride [Moles/Vol] 107 mmol/L 98-107 [facility] Comprehensive Metabolic Prof ilon 12-02-2024 Albumin [Mass/Vol] 3.8 g/dL Normal 3.2-5.0 [facility] Comment on above: Performed By: #### L 506.0400, L501.9520, L500.4050 #### [facility] [address] [place], [address] Albumin/Globulin [Mass ratio] 1.1 {ratio} Normal 0.9-2.4 [facility] Comment on above: Performed By: #### L 506.0400, L501.9520, L500.4050 #### [facility] [address] [place], [address] ALK P 109 U/L Normal 45-117 [facility] Comment on above: Performed By: #### L 506.0400, L501.9520, L500.4050 #### [facility] [address] [place], [address] ALT [Catalytic activity/Vol] 94 U/L High 16-61 [facility] Comment on above: Performed By: #### L 506.0400, L501.9520, L500.4050 #### [facility] [address] [place], [address] AST [Catalytic activity/Vol] 30 U/L Normal 15-37 [facility] Comment on above: Performed By: #### L 506.0400, L501.9520, L500.4050 #### [facility] [address] [place], [address] Bilirubin [Mass/Vol] 0.40 mg/dL Normal 0.20-1.00 [facility] Comment on above: Result Comment: For patients on eltrombopag therapy, use of Dimension [place] TBIL is not recommended. Performed By: #### L 506.0400, L501.9520, L500.4050 #### [facility] [address] [place], [address] BUN/CRE 15.7 RATIO Normal 10-20 [facility] Comment on above: Performed By: #### L 506.0400, L501.9520, L500.4050 #### [facility] [address] [place], [address] CA,Total 9.5 mg/dL Normal 8.5-10.1 [facility] Comment on above: Performed By: #### L 506.0400, L501.9520, L500.4050 #### [facility] [address] [place], [address] Chloride [Moles/Vol] 107 mmol/L Normal 98-107 [facility] Comment on above: Performed By: #### L 506.0400, L501.9520, L500.4050 #### [facility] [address] [place], [address] CO2 [Moles/Vol] 25.0 mmol/L Normal 21.0-32.0 [facility] Comment on above: Performed By: #### L 506.0400, L501.9520, L500.4050 #### [facility] [address] [place], [address] Creatinine [Mass/Vol] 0.89 mg/dL Normal 0.70-1.30 [facility] Comment on above: Result Comment: The validity of the calculated GFR GFRAA in patients over 70 years has not been determined. Clinical correlation is essential. Performed By: #### L 506.0400, L501.9520, L500.4050 #### [facility] [address] [place], [address] EST GFR - AA 109 mL/min Normal >60 [facility] Comment on above: Result Comment: Afri can Guinean GFR Calc Performed By: #### L 506.0400, L501.9520, L500.4050 #### [facility] [address] [place], [address] GAP 4 Low 5-15 [facility] Comment on above: Performed By: #### L 506.0400, L501.9520, L500.4050 #### [facility] [address] [place], [address] GFR/1.73 sq M.predicted among non-blacks MDRD (S/P/Bld) [Vol rate/Area] 90 mL/min/{1.73_m2} Normal >60 [facility] Comment on above: Result Comment: Non- GFR Calc Performed By: #### L 506.0400, L501.9520, L500.4050 #### [facility] [address] [place], [address] Globulin (S) [Mass/Vol] 3.4 g/dL Normal 2.2-4.2 [facility] Comment on above: Performed By: #### L 506.0400, L501.9520, L500.4050 #### [facility] [address] [place], [address] Glucose [Mass/Vol] 104 mg/dL Normal 74-106 [facility] Comment on above: Result Comment: Fast ing Glucose result from 100 to 125 mg/dL suggests IMPAIRED HOMEOSTASIS per A.D.A. criteria. Performed By: #### L 506.0400, L501.9520, L500.4050 #### [facility] [address] [place], [address] Potassium [Moles/Vol] 4.1 mmol/L Normal 3.5-5.1 [facility] Comment on above: Performed By: #### L 506.0400, L501.9520, L500.4050 #### [facility] [address] [place], [address] Sodium [Moles/Vol] 136 mmol/L Normal 136-145 [facility] Comment on above: Performed By: #### L 506.0400, L501.9520, L500.4050 #### [facility] [address] [place], [address] T PROT 7.2 g/dL Normal 6.4-8.2 [facility] Comment on above: Performed By: #### L 506.0400, L501.9520, L500.4050 #### [facility] [address] [place], [address] Urea nitrogen [Mass/Vol] 14 mg/dL Normal 7-18 [facility] Comment on above: Performed By: #### L 506.0400, L501.9520, L500.4050 #### [facility] [address] [place], [address] Direct serum free thyroxine (FT4) measurementOrdered By: Naomi eWst on 12-02-2024 Free T4 [Mass/Vol] 1.15 ng/dL 0.76-1.46 [facility] Estimated glomerular filtrat ion rate (GFR) AmericanOrdered By: Naomi West on 12-02-2024 Estimated GFR (MDRD) Amer 109 mL/min >60 [facility] Comment on above: GFR Calc Glomerular filtration rate ( GFR) estimationOrdered By: Naomi West on 12-02-2024 Estimated GFR (MDRD) Non-Af Amer 90 mL/min >60 [facility] Comment on above: Non- GFR Calc Glucose measurementOrdered B y: Naomi West on 12-02-2024 Glucose [Mass/Vol] 104 mg/dL 74-106 [facility] Comment on above: Fasting Glucose resu lt from 100 to 125 mg/dL suggests IMPAIRED HOMEOSTASIS per A.D.A. criteria. Laboratory - Chemistry and C hemistry - challengeOrdered By: Naomi West on 12-02-2024 AST [Catalytic activity/Vol] 30 U/L 15-37 [facility] Potassium measurementOrdered By: Naomi West on 12-02-2024 Potassium [Moles/Vol] 4.1 mmol/L 3.5-5.1 [facility] Serum anion gap measurementO rdered By: Naomi West on 12-02-2024 Anion gap [Moles/Vol] 4 mmol/L Low 5-15 [facility] Serum globulin measurementOr dered By: Naomi West on 12-02-2024 Globulin (S) [Mass/Vol] 3.4 g/dL 2.2-4.[address] [facility] Serum or plasma alanine overton otransferase (ALT) measurementOrdered By: Naomi West on 12-02-2024 ALT [Catalytic activity/Vol] 94 U/L High 16-61 [facility] Serum or plasma albumin camilo urement (mass/volume)Ordered By: Naomi West on 12-02-2024 Albumin [Mass/Vol] 3.8 g/dL 3.2-5.0 [facility] Serum or plasma alkaline balaji sphatase measurementOrdered By: Naomi West on 12-02-2024 ALP [Catalytic activity/Vol] 109 U/L 45-117 [facility] Serum or plasma calcium camilo urement (mass/volume)Ordered By: Naomi West on 12-02-2024 Calcium [Mass/Vol] 9.5 mg/dL 8.5-10.1 [facility] Serum or plasma creatinine m easurement (mass/volume)Ordered By: Naomi West on 12-02-2024 Creatinine [Mass/Vol] 0.89 mg/dL 0.70-1.30 [facility] Comment on above: The validity of the calculated GFR & GFRAA in patients over 70 years has not been determined. Clinical correlation is essential. Serum or plasma urea nitroge n measurement (mass/volume)Ordered By: Naomi West on 12-02-2024 Urea nitrogen [Mass/Vol] 14 mg/dL 7-18 [facility] Sodium levelOrdered By: Jovanny West on 12-02-2024 Sodium [Moles/Vol] 136 mmol/L 136-145 [facility] T4 Free Directon 12-02-2024 T4 FREE DIRECT 1.15 ng/dL Normal 0.76-1.46 [facility] Comment on above: Performed By: #### L 506.0400, L501.9520, L500.4050 #### [facility] [address] [place], [place], [address] TSH QnOrdered By: Naomi henry on 12-02-2024 Thyroid Stimulating Hormone (TSH) 1.240 uIU/mL 0.358-3.740 [facility] Thyroid Stim Hormone (TSH)on 12-02-2024 TSH 1.240 uIU/mL Normal 0.358-3.740 [facility] Comment on above: Performed By: #### L 506.0400, L501.9520, L500.4050 #### [facility] [address] [facility] [place], [place], [id number] Total proteinOrdered By: Dale West on 12-02-2024 Protein [Mass/Vol] 7.2 g/dL 6.4-8.2 [facility] Thyroidon 11-24-2024 Thyroid [facility] [address] [place] [address] Thyroid MR#: [id number] Acct: [id number] Name: YARI LOPEZ Rep #: [id number] : 1955 M 69 From: Mark vinson DO PCP: Dr. Tania West MD Status: REG CLI Study: Thyroid Date of Exam: 11/24/24 Exam# [id number] Ordering Dr: Naomi West [id number] EXAM: US SOFT TISSUES HEAD AND NECK, THYROID CLINICAL INDICATION: R thyroid abnormality noted on carotid duplex TECHNIQUE: Greyscale and color doppler imaging was performed of the thyroid gland. COMPARISON: CTA head and neck, 04/01/2024 FINDINGS: LEFT THYROID LOBE: The left thyroid lobe measures 4.8 x 1.5 x 1.7 cm. Within the left thyroid lobe, there is a 0.7 cm thyroid cyst. TI-RADS points: 0. TI-RADS category: TR1. This nodule is benign and no FNA or follow-up is necessary. Homogeneous echotexture with normal vascularity. RIGHT THYROID LOBE: The right thyroid lobe measures 4.8 x 2.9 x 2.1 cm. Within the upper pole of the right thyroid lobe, there is a nodule measuring 2.5 cm. This nodule is solid or almost completely solid, hyperechoic or isoechoic, [id number], smoothly marginated and contains no echogenic foci. TI-RADS points: 3. TI-RADS category: TR3. This nodule is mildly suspicious. Recommend FNA evaluation. Within the mid right thyroid lobe, there is a 0.6 cm thyroid cyst. TI-RADS points: 0. TI-RADS category: TR1. This nodule is benign and no FNA or follow-up is necessary. ISTHMUS: The thyroid isthmus measures 0.3 cm. No thyroid nodules are present. US/Thyroid IMPRESSION: The 2.5 cm right thyroid nodule is mildly suspicious. Recommend FNA evaluation. The other nodules described are benign. Electronically Signed: Mark Van DO at 21:58 EST , CC: DAMIEN Bird; Dr. Tania West MD [employer] Developer: Signed Normal [facility] Carotid Duplex Ultrasoundon 11-17-2024 Carotid Duplex Ultrasound [facility] [address] [place] [address] Carotid Duplex Ultrasound 11/17/24 1014 MR#: [id number] Acct: [id number] Name: YARI LOPEZ Rep #: [id number] : 1955 69 From: David Huynh MD Attending Dr: DAMIEN Bird Status: REG CLI Ordering Dr: Naomi West Date: 11/17/24 Location: [facility] Sex: M C Admitted: Reason For Study: S/P Lt CEA Rt. Velocities/BP Lt. Velocities/BP Prox CCA 78.7/14.5 cm/sec. Prox CCA 106.9/22.3 cm/sec. Mid CCA 106.9/17.9 cm/sec. Mid CCA 91.6/17.9 cm/sec. Dist CCA 81.4/17.9 cm/sec. Dist CCA 88.5/18.2 cm/sec. Prox ICA 117.4/13.3 cm/sec. Prox ICA 49.5/15.1 cm/sec. Mid ICA 79.1/22.5 cm/sec. Mid ICA 132.1/42.6 cm/sec. Dist ICA 76.2/24.5 cm/sec. Dist ICA 79.5/21.2 cm/sec. Rt. ICA/CCA = 0.74. Lt. ICA/CCA = 1.44. Prox ECA 119.3/9.7 cm/sec. Prox ECA 105.1/8.3 cm/sec. Rt. Vert. 37.8/10.7 cm/sec. Lt. Vert. 42.1/11.6 cm/sec. Right Extracranial There is intimal thickening but no significant atherosclerotic plaque noted in the right common carotid artery. There is heterogeneous, irregular atherosclerotic plaque noted in the right internal carotid artery. There is intimal thickening but no significant atherosclerotic plaque noted in the right external carotid artery. Antegrade flow is noted in the right vertebral artery. Vascularized structure noted in the right thyroid that measures 1.88 x 2.05 cm. Left Extracranial There is homogeneous, smooth atherosclerotic plaque noted in the left common carotid artery. There is intimal thickening but no significant atherosclerotic plaque noted in the left internal carotid artery. There is intimal thickening but no significant atherosclerotic plaque noted in the left external carotid artery. Antegrade flow is noted in the left vertebral artery. Procedure This is a Carotid Duplex examination using B-mode, color flow and specral Doppler. Carotid Duplex [id number]. Exam performed in department. VL/Carotid Duplex Ultrasound Interpretation Summary Mild (<50%) stenosis right extracranial internal carotid. Normal left extracranial internal carotid. Elevated velocities with no plaque visualized. Patent and antegrade vertebrals bilaterally. Vascularized structure noted in the right thyroid that measures 1.88 x 2.05 cm. Ordering Physician: Naomi West Referring Physician: Tania West Performed By: Nicole Chamorro RVT 11/17/24 6574 Date David Huynh MD CC: DAMIEN Bird; Dr. Tania West MD Date Dictated: 11/17/24 1014 Date Transcribed: 11/17/241556 [employer] Developer: Signed Normal [facility] Absolute neutrophil countOrd ered By: Martha Kim on 10-30-2024 Neutrophils (Bld) [#/Vol] 5.3 10*3/uL 2.0-7.7 [facility] Albumin to globulin ratioOrd ered By: Martha Kim on 10-30-2024 Albumin/Globulin [Mass ratio] 1.2 {ratio} 0.9-2.4 [facility] Basophil percentageOrdered B y: Martha Kim on 10-30-2024 Basophils/100 WBC (Bld) 1.5 % High 0-1 [facility] Bilirubin, totalOrdered By: Martha Kim on 10-30-2024 Bilirubin [Mass/Vol] 0.40 mg/dL 0.20-1.00 [facility] Comment on above: For patients on eltr ombopag therapy, use of Dimension [place] TBIL is not recommended. Blood urea nitrogen (BUN)/cr eatinine ratioOrdered By: Martha Kim on 10-30-2024 Urea nitrogen/Creatinine [Mass ratio] 10.5 mg/mg 10- [facility] CBC W/Diff, Automatedon 10-18 Absolute Lymph 2.16 X10 3/uL Normal 0.83-4.51 [facility] Comment on above: Performed By: #### L 500.4050, L100.0100 ####[facility] [address] [place], [address] Absolute Neut 5.3 X10 3/uL Normal 2.0-7.7 [facility] Comment on above: Performed By: #### L 500.4050, L100.0100 ####[facility] [address] [place], [address] Basophils/100 WBC (Bld) 1.5 % High 0-1 [facility] Comment on above: Performed By: #### L 500.4050, L100.0100 ####[facility] [address] [place], [address] Eosinophils/100 WBC (Bld) 6.3 % High 0-5 [facility] Comment on above: Performed By: #### L 500.4050, L100.0100 ####[facility] [address] [place], [address] Erythrocyte distribution width (RBC) [Ratio] 15.2 % High 11.6-14.6 [facility] Comment on above: Performed By: #### L 500.4050, L100.0100 ####[facility] [address] [place], [address] Hematocrit (Bld) [Volume fraction] 37.6 % Low 40-54 [facility] Comment on above: Performed By: #### L 500.4050, L100.0100 ####[facility] [address] [place], [address] Hemoglobin (Bld) [Mass/Vol] 13.1 g/dL Normal 13.0-16.5 [facility] Comment on above: Performed By: #### L 500.4050, L100.0100 ####[facility] [address] [place], [address] IG% 0.300 Normal 0.0-0.9 [facility] Comment on above: Result Comment: IG% - Immature Granulocytes (promyelocytes, myelocytes and metamyelocytes) > 1% indicates that a LEFT SHIFT is Present. Performed By: #### L 500.4050, L100.0100 ####[facility] [address] [place], [address] Lymphocytes/100 WBC (Bld) 24.2 % Normal 19-41 [facility] Comment on above: Performed By: #### L 500.4050, L100.0100 ####[facility] [address] [place], [address] MCH (RBC) [Entitic mass] 32.9 pg High 27.0-32.0 [facility] Comment on above: Performed By: #### L 500.4050, L100.0100 ####[facility] [address] [place], [address] MCHC (RBC) [Mass/Vol] 34.8 g/dL Normal 32-36 [facility] Comment on above: Performed By: #### L 500.4050, L100.0100 ####[facility] [address] [place], [address] MCV (RBC) [Entitic vol] 94.5 fL High 80-94 [facility] Comment on above: Performed By: #### L 500.4050, L100.0100 ####[facility] [address] [place], [address] Monocytes/100 WBC (Bld) 8.1 % Normal 0-[address] [facility] Comment on above: Performed By: #### L 500.4050, L100.0100 ####[facility] [address] [place], [address] Neutrophils/100 WBC (Bld) 59.6 % Normal 47-70 [facility] Comment on above: Performed By: #### L 500.4050, L100.0100 ####[facility] [address] [place], [address] Nucleated RBC (Bld) [#/Vol] 0 10*3/uL Normal 0-5 [facility] Comment on above: Performed By: #### L 500.4050, L100.0100 ####[facility] [address] [place], [address] Platelet mean volume (Bld) [Entitic vol] 9.6 fL Normal 6.2-12.0 [facility] Comment on above: Performed By: #### L 500.4050, L100.0100 ####[facility] [address] [place], [address] Platelets (Bld) [#/Vol] 294 10*3/uL Normal 150-450 [facility] Comment on above: Performed By: #### L 500.4050, L100.0100 ####[facility] [address] [place], [address] RBC (Bld) [#/Vol] 3.98 10*6/uL Low 4.6-6.2 [facility] Comment on above: Performed By: #### L 500.4050, L100.0100 ####[facility] [address] [place], [address] RDW SD 51.2 fl High 35.1-43.9 [facility] Comment on above: Performed By: #### L 500.4050, L100.0100 ####[facility] [address] [place], [address] WBC (Bld) [#/Vol] 8.9 10*3/uL Normal 4.4-11.0 [facility] Comment on above: Performed By: #### L 500.4050, L100.0100 ####[facility] [address] [place], [address] [facility] Telephone (AGVASSolaborate) YARI LOPEZ ([id number]) 1955 M Date Time Provider Department 10/30/24 MIAH HINSON During your visit today, we recorded the following information about you: Rama García 10/30/2024 3:07 PM Signed LMOM to schedule office visit with Dr. Naheed Cooper F/up - lung nodule eval *CTA A/P 10/29/24* Allergies As of Date: 10/30/2024 Noted Allergy Reaction PENICILLINS 12/26/2010 7 - Swelling Date Reviewed: 10/29/2024 Reviewed by: Lina Hidalgo MA - Fully Assessed Reason for Visit: Appointment [186] Cmt: Appointment Prescriptions as of 10/30/2024 - iv contrast (will be provided with radiology test) CTA Chest. No IV access, insert saline lock prior to the sedation, infusion, injection for imaging exam. Discontinue saline lock post exam. If Pt. has a central line or IVAD, may access for administration according to line specific nursing protocol. Once exam is complete flush line and de-access according to line specific nursing protocol in the CT contrast administration guidelines link. - predniSONE (DELTASONE) 10 mg tablet Take [...] once daily. Problem List As Of Date 10/30/2024 Noted Resolved Coronary arteriosclerosis in crow artery [I25*12/14/2013 Chest discomfort [R07.89] 12/14/2013 08/16/2022 Heart murmur, systolic [R01.1] 12/14/2013 08/16/2022 SOB (shortness of breath) on exertion [R06.02] 12/14/2013 08/16/2022 Fatigue [R53.83] 12/14/2013 08/16/2022 Hyperlipidemia LDL goal <70 [E78.5] 07/25/2016 Tobacco abuse [Z72.0] 07/25/2016 Essential hypertension [I10] 01/17/2017 S/P CABG x 4 [Z95.1] 03/10/2020 Aortic dissection (HCC) [I71.00] 08/16/2022 Nicotine use disorder, F17.2 [F17.200] 08/17/2022 Obesity, Class I, BMI 30-34.9 [E66.811] 08/17/2022 On mechanically assisted ventilation (HCC) [Z99*08/18/2022 08/18/2022 CAD (coronary artery disease) [I25.10] 08/18/2022 Postoperative pain [G89.18] 08/18/2022 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/18/2022 Coagulopathy (HCC) [D68.9] 08/18/2022 08/20/2022 MISTY (obstructive sleep apnea) [G47.33] 08/18/2022 Pulmonary edema, acute (HCC) [J81.0] 08/20/2022 08/21/2022 Encounter for support and coordination of trans*08/20/2022 Encounter Status:Closed by RAMA GARCÍA on 10/30/24 Normal [facility] Carbon dioxide measurementOr dered By: Martha Kim on 10-30-2024 CO2 [Moles/Vol] 25.0 mmol/L 21.0-32.0 [facility] Chloride measurementOrdered By: Martha Kim on 10-30-2024 Chloride [Moles/Vol] 111 mmol/L High 98-107 [facility] Comprehensive Metabolic Prof ilon 10-30-2024 Albumin [Mass/Vol] 4.0 g/dL Normal 3.2-5.0 [facility] Comment on above: Performed By: #### L 500.4050, L100.0100 ####[facility] [address] [place], [address] Albumin/Globulin [Mass ratio] 1.2 {ratio} Normal 0.9-2.4 [facility] Comment on above: Performed By: #### L 500.4050, L100.0100 ####[facility] [address] [place], [address] ALK P 113 U/L Normal 45-117 [facility] Comment on above: Performed By: #### L 500.4050, L100.0100 ####[facility] [address] [place], [address] ALT [Catalytic activity/Vol] 34 U/L Normal 16-61 [facility] Comment on above: Performed By: #### L 500.4050, L100.0100 ####[facility] [address] [place], [address] AST [Catalytic activity/Vol] 17 U/L Normal 15-37 [facility] Comment on above: Performed By: #### L 500.4050, L100.0100 ####[facility] [address] [place], [address] Bilirubin [Mass/Vol] 0.40 mg/dL Normal 0.20-1.00 [facility] Comment on above: Result Comment: For patients on eltrombopag therapy, use of Dimension [place] TBIL is not recommended. Performed By: #### L 500.4050, L100.0100 ####[facility] [address] [place], [address] BUN/CRE 10.5 RATIO Normal 10-20 [facility] Comment on above: Performed By: #### L 500.4050, L100.0100 ####[facility] [address] [place], [address] CA,Total 9.3 mg/dL Normal 8.5-10.1 [facility] Comment on above: Performed By: #### L 500.4050, L100.0100 ####[facility] [address] [place], [address] Chloride [Moles/Vol] 111 mmol/L High 98-107 [facility] Comment on above: Performed By: #### L 500.4050, L100.0100 ####[facility] [address] [place], [address] CO2 [Moles/Vol] 25.0 mmol/L Normal 21.0-32.0 [facility] Comment on above: Performed By: #### L 500.4050, L100.0100 ####[facility] [address] [place], [address] Creatinine [Mass/Vol] 1.05 mg/dL Normal 0.70-1.30 [facility] Comment on above: Result Comment: The validity of the calculated GFR GFRAA in patients over 70 years has not been determined. Clinical correlation is essential. Performed By: #### L 500.4050, L100.0100 ####[facility] [address] [place], [address] EST GFR - AA 90 mL/min Normal >60 [facility] Comment on above: Result Comment: Afri can Guine[place] GFR Calc Performed By: #### L 500.4050, L100.0100 ####[facility] [address] [place], [address] GAP 4 Low 5-15 [facility] Comment on above: Performed By: #### L 500.4050, L100.0100 ####[facility] [address] [place], [address] GFR/1.73 sq M.predicted among non-blacks MDRD (S/P/Bld) [Vol rate/Area] 75 mL/min/{1.73_m2} Normal >60 [facility] Comment on above: Result Comment: Non- GFR Calc Performed By: #### L 500.4050, L100.0100 ####[facility] [address] [place], [address] Globulin (S) [Mass/Vol] 3.3 g/dL Normal 2.2-4.[address] [facility] Comment on above: Performed By: #### L 500.4050, L100.0100 ####[facility] [address] [place], [address] Glucose [Mass/Vol] 82 mg/dL Normal 74-106 [facility] Comment on above: Performed By: #### L 500.4050, L100.0100 ####[facility] [address] [place], [address] Potassium [Moles/Vol] 4.1 mmol/L Normal 3.5-5.1 [facility] Comment on above: Performed By: #### L 500.4050, L100.0100 ####[facility] [address] [place], [address] Sodium [Moles/Vol] 140 mmol/L Normal 136-145 [facility] Comment on above: Performed By: #### L 500.4050, L100.0100 ####[facility] [address] [place], [address] T PROT 7.3 g/dL Normal 6.4-8.2 [facility] Comment on above: Performed By: #### L 500.4050, L100.0100 ####[facility] [address] [place], [address] Urea nitrogen [Mass/Vol] 11 mg/dL Normal 7-18 [facility] Comment on above: Performed By: #### L 500.4050, L100.0100 ####[facility] [address] [place], [address] Eosinophil percentageOrdered By: Martha Kim on 10-30-2024 Eosinophils/100 WBC (Bld) 6.3 % High 0-5 [facility] Erythrocyte distribution wid th ratioOrdered By: Martha Kim on 10-30-2024 Erythrocyte distribution width (RBC) [Ratio] 15.2 % High 11.6-14.6 [facility] Erythrocyte distribution wid th standard deviationOrdered By: Martha Kim on 10-30-2024 Erythrocyte distribution width (RBC) [Entitic vol] 51.2 fL High 35.1-43.9 [facility] Estimated glomerular filtrat ion rate (GFR) AmericanOrdered By: Martha Kim on 10-30-2024 Estimated GFR (MDRD) Amer 90 mL/min >60 [facility] Comment on above: GFR Calc Glomerular filtration rate ( GFR) estimationOrdered By: Martha Kim on 10-30-2024 Estimated GFR (MDRD) Non-Af Amer 75 mL/min >60 [facility] Comment on above: Non- GFR Calc Glucose measurementOrdered B y: Martha Kim on 10-30-2024 Glucose [Mass/Vol] 82 mg/dL 74-106 [facility] Hematocrit Auto (Bld) [Volum e fraction]Ordered By: Martha Kim on 10-30-2024 Hematocrit (Bld) [Volume fraction] 37.6 % Low 40-54 [facility] Hemoglobin measurementOrdere d By: Martha Kim on 10-30-2024 Hemoglobin (Bld) [Mass/Vol] 13.1 g/dL 13.0-16.5 [facility] Immature granulocytes/100 WB C Auto (Bld)Ordered By: Martha Kim on 10-30-2024 Immature granulocytes/100 WBC (Bld) 0.300 % 0.0-0.9 [facility] Comment on above: IG% - Immature Granu locytes (promyelocytes, myelocytes and metamyelocytes) > 1% indicates that a LEFT SHIFT is Present. Laboratory - Chemistry and C hemistry - challengeOrdered By: Martha Kim on 10-30-2024 AST [Catalytic activity/Vol] 17 U/L 15-37 [facility] Lymphocytes Auto (Unsp spec) [#/Vol]Ordered By: Martha Kim on 10-30-2024 Lymphocytes (Bld) [#/Vol] 2.16 10*3/uL 0.83-4.51 [facility] Lymphocytes/100 WBC Auto (Un sp spec)Ordered By: Martha Kim on 10-30-2024 Lymphocytes/100 WBC (Bld) 24.2 % 19-41 [facility] MCV (mean corpuscular volume ) determinationOrdered By: Martha Kim on 10-30-2024 MCV (RBC) [Entitic vol] 94.5 fL High 80-94 [facility] Mean corpuscular hemoglobin (MCH) determinationOrdered By: Martha Kim on 10-30-2024 MCH (RBC) [Entitic mass] 32.9 pg High 27.0-32.0 [facility] Mean corpuscular hemoglobin concentration (MCHC) determinationOrdered By: Martha Kim on 10-30-2024 MCHC (RBC) [Mass/Vol] 34.8 g/dL 32-36 [facility] Mean platelet volume determi nationOrdered By: Martha Kim on 10-30-2024 Platelet mean volume (Bld) [Entitic vol] 9.6 fL 6.2-12.0 [facility] Monocyte percentageOrdered B y: Martha Kim on 10-30-2024 Monocytes/100 WBC (Bld) 8.1 % 0-10 [facility] Neutrophil percentageOrdered By: Martha Kim on 10-30-2024 Neutrophils/100 WBC (Bld) 59.6 % 47-70 [facility] Nucleated red blood cell per centageOrdered By: Martha Kim on 10-30-2024 Nucleated RBC/100 WBC (Bld) [Ratio] 0 % 0-5 [facility] Platelet countOrdered By: Damien Kim on 10-30-2024 Platelets (Bld) [#/Vol] 294 10*3/uL 150-450 [facility] Potassium measurementOrdered By: Martha Kim on 10-30-2024 Potassium [Moles/Vol] 4.1 mmol/L 3.5-5.1 [facility] RBC Auto (Bld) [#/Vol]Ordere d By: Martha Kim on 10-30-2024 RBC (Bld) [#/Vol] 3.98 10*6/uL Low 4.6-6.2 [facility] Serum anion gap measurementO rdered By: Martha Kim on 10-30-2024 Anion gap [Moles/Vol] 4 mmol/L Low 5-15 [facility] Serum globulin measurementOr dered By: Martha Kim on 10-30-2024 Globulin (S) [Mass/Vol] 3.3 g/dL 2.2-4.[address] [facility] Serum or plasma alanine overton otransferase (ALT) measurementOrdered By: Martha Kim on 10-30-2024 ALT [Catalytic activity/Vol] 34 U/L 16-61 [facility] Serum or plasma albumin camilo urement (mass/volume)Ordered By: Martha Kim on 10-30-2024 Albumin [Mass/Vol] 4.0 g/dL 3.2-5.0 [facility] Serum or plasma alkaline balaji sphatase measurementOrdered By: Martha Kim on 10-30-2024 ALP [Catalytic activity/Vol] 113 U/L 45-117 [facility] Serum or plasma calcium camilo urement (mass/volume)Ordered By: Martha Kim on 10-30-2024 Calcium [Mass/Vol] 9.3 mg/dL 8.5-10.1 [facility] Serum or plasma creatinine m easurement (mass/volume)Ordered By: Martha Kim on 10-30-2024 Creatinine [Mass/Vol] 1.05 mg/dL 0.70-1.30 [facility] Comment on above: The validity of the calculated GFR & GFRAA in patients over 70 years has not been determined. Clinical correlation is essential. Serum or plasma urea nitroge n measurement (mass/volume)Ordered By: Martha Kim on 10-30-2024 Urea nitrogen [Mass/Vol] 11 mg/dL 7-18 [facility] Sodium levelOrdered By: Laquita Kim on 10-30-2024 Sodium [Moles/Vol] 140 mmol/L 136-145 [facility] Total proteinOrdered By: Jude Kim on 10-30-2024 Protein [Mass/Vol] 7.3 g/dL 6.4-8.2 [facility] White blood cell (WBC) count Ordered By: Martha Kim on 10-30-2024 WBC (Bld) [#/Vol] 8.9 10*3/uL 4.4-11.0 [facility] CNOVon 10-29-2024 CNOV Office Visit ([facility] ) YARI LOPEZ ([id number]) 1955 M Date Time Provider Department 10/29/24 10:30 AM LYNNE GRIFFITH [facility] During your visit today, we recorded the following information about you: Temperature Pulse Respiration Blood pressure 97.1 degrees 66/minute 14/minute 117/52 Weight Height 90.7 kg 1.803 m Lynne Griffith, KARMEN.FLAT LOCK OPERATOR 10/30/2024 11:16 AM Signed FOLLOW-UP Aortic Aneurysm, Aortic Dissection, and Aortic Repair Patient Type: Established REFERRED BY: Cristi Isaac M.D. PCP: Tania West [address] [facility] [address] [place] [address] Other Physician: Cristi Isaac [address] [facility] [address] Patient Mr. Lopez returns, now 12 months following the last assessment of his arch and ascending Aortic Repair. The patient is asymptomatic. Last year had a few bouts of confusion and visual disturbances, they though it was TIAs but after evaluation it was determined they were not TIAs. 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 Since his surgery, he has had no recurrence of confusion of vision issues. I do not have access to any reports. 2023 Left carotid subclavian bypass (per patient) 08/17/2022 -- Dr Isaac Chronic Type A Dissection Redo Median Sternotomy, Type A Aortic Dissection Repair (Ascending and Hemiarch Replacement 30 HEMASHIELD CHEHALIS T Graft with Reimplantation of Proximal RSVG [...] and reveals a maximum aortic diameter of 49 mm in the area of Aortic root. Overall, aortic root has been stable (47 mm in 2021). Beyond the graft, there is no residual dissection and normal caliber aorta. The Echocardiogram from 08/16/22 reveals normal ventricular [...] in the non-coronary sinus. Rest of the crow thoracoabdominal aorta is normal in calibre with no acute aortic pathology. 3. A 20 mm focal cluster of pulmonary nodular opacities is seen in the right upper lobe. Incidental Finding: Follow-up Acuity: Incidental Finding: Part solid: 6 mm or greater Routing Code: RI_1 Recommendation: Consult to Lung Nodule [facility] - [id number] Time Frame: at the discretion of the [...] be communicated with the ordering provider via [employer] staff message by Imaging Support Services within 2 business days of report finalization. [employer] Developer: PSCB Transcribe Date/Time: Oct 29 2023 10:26A Dictated by : KRISTEN STINSON MD This examination was interpreted and the report reviewed and electronically signed by: KRISTEN STINSON MD on Oct 30 2023 11:30AM EST Creatinine (POCT) Date Value Ref Range Status 10/29/2024 1.10 0.7 - 1.4 mg/dL Final Impression: The patient is doing well, after the last visit. Mr Lopez has not followed up on the lung nodule that was discussed at the last visit. (I71.010) Dissection of ascending aorta (HCC) (primary encounter diagnosis) Comment: (Z98.890, Z86.79) S/P ascending aortic aneurysm repair Plan: Follow Up CTA (R91.1) Lung nodule Comment: increase in size; RUL 23x16 mm Plan: Discussed findings with patient via phone, he will follow up with PCP and/or molecular physicist (E04.1) Thyroid nodule greater than or equal to 1.5 cm in diameter incidentally noted on imaging study Comment: 20 mm, right lobe Plan:Discussed findings with patient via phone, he will follow up with PCP and/or job coach Plan: He will return to see me in 12 months The following studies will be necessary: - CT gated thoracic a (more content not included)... Normal [facility] CREATININE, BLOOD (POC)on Creatinine [Mass/Vol] 1.10 mg/dL 0.7 - 1.4 mg/dL [facility] eGFR (POCT) mL/min/1.73 m2 [facility] Location:Radiology [facility], [address] [place] [address], [address] [place] [address] POINT OF CARE [facility] CTA CHEST (GATED) W IVCONon 10-29-2024 CTA CHEST (GATED) W IVCON * * *Final Report* * * DATE OF EXAM: Oct 29 2024 9:38AM JQC 0125 - CTA CHEST (GATED) W IVCON / PROCEDURE REASON: multiple diagnoses * * * * Physician Interpretation * * * * CTA Aorta chest - images were acquired and screened for acute findings earlier. Subsequently reported following overnight procedure. Direct Image Comparison: CTAs between 10/29/2023 and 02/20/2020 HISTORY: 69 years old Male with chronic h/o repaired type-A dissection limited to ascending aorta -remote CABG (FRAUSTO to LAD, SVG to OM, SVG to PDA, ROBER to Diagonal, OSH?) -07/2022 [facility]: Redo Median Sternotomy, Type A Aortic Dissection Repair (Ascending and Hemiarch Replacement 30 HEMASHIELD CHEHALIS T Graft with Reimplantation of Proximal RSVG to OM and RSVG to PDA of prior CABG, Aortic valve Commissural Suspension Evaluation for interval change. There is request to define thoracic and aortic anatomy TECHNIQUE: SCANNER: Siemens Definition Force Dual source [id number] scanner PROTOCOL: Prospectively triggered helical high-pitch acquisitions (triggered Flash-mode) was performed following the intravenous administration of contrast material. Scan Range: thoracic inlet to the diaphragm CT Dose-Length Product (DLP): 255 mGy*cm CT Dose Reduction Employed: Automated exposure control(AEC) and iterative recon CONTRAST: IV administration of 80 ml Omnipaque 350 Scan acquisition: uncomplicated Macro Version: [id number] For optimization of anatomic evaluation, advanced 3-D off-line postprocessing was performed on a dedicated workstation by the interpreting physician. Additional lung CAD. Linder images reconstructed, saved, and available in EPIC 'Get Images'. STUDY LIMITATIONS: Limited contrast enhancement of the right sided cardiac chambers and pulmonary artery. RESULT: LINES, TUBES and DEVICES: None CHEST: Chest wall anatomy: evidence of median sternotomy with sternal wires in place. Retained epicardial pacer wires are in place. - again see is about 2 cm inhomogeneous nodule of the right thyroid gland. LUNGS: upper lobe predominant emphysematous changes. mosaic attenuation. - non-calcified up to 6 mm nodules e.g. right upper lung lobe (Image # [id number]) - the previously described nodular opacification appears more prominent on the current study and now measures about 23x16 mm. Lesion has significantly increased since 2021. (see saved images). Follow-up recommendations: see Impression MEDIASTINUM: mediastinal and right hilar lymph nodes, which are at the upper size of normal. PERICARDIUM: unremarkable CENTRAL PULMONARY ARTERY: normal dimensions. Assessment is limited due to limited contrast enhancement. CARDIAC CHAMBERS: LEFT VENTRICLE: normal size. RIGHT VENTRICLE: upper normal size Left Atrium: normal size. EDVIN: no evidence of thrombus. Right Atrium: normal size CENTRAL VENOUS and PULMONARY VENOUS RETURN: normal. Coronary Sinus: normal size MITRAL VALVE: assessment is limited in the current study - no leaflet calcification. No annular calcification TRICUSPID and PULMONIC VALVE: assessment is limited, No leaflet calcification. CORONARY ANATOMY: normal origin of the coronary arteries. Diffuse, dense calcified atherosclerotic changes including LM, proximal LAD, LCX, RCA, precluding precise assessment with CT. - Cheesh-Na DEE is not identified in situ and likely used for grafting Evidence of prior Coronary Bypass Surgery. Assessment for Graft patency is limited in the current study: - likely patent ALYCE graft to the LAD. Graft descends to the left of the sternum - likely patent Aorto-coronary graft to branches of the RCA. Safe distance to the sternum - likely patent Aorto-coronary graft to branches of the LCX. Safe distance to the sternum - additional patent grafts are not identified repaired AORTIC VALVE: appears trileaflet. Mild calcification at the commissures. AORTA: Pathology: No acute aortic pathology. Intervention: Supra-coronary graft ascending aorta. Complications: n/a Aortic Size: Stable Mild Dilation Aortic Root. STJ: maintained. Wall Changes: Surgical changes surrounding grafted ascending aorta. Mild partially calcified wall changes arch and descending thoracic aorta. Arch Branch Vessels: Patent, normal size proximal segments of the arch branch vessels, with mild partially calcified wall changes. AORTIC DIMENSIONS: ANNULUS: max. and min. Diameter: 2.9 x 2.4 cm. AREA 5.5 cm2 crow AORTIC ROOT: 4.7 x 4.4 cm measured [id number] No significant interval change Area 14.2 cm2 grafted ASCENDING THORACIC AORTA: 3.1 cm mid AORTIC ARCH: 2.9 cm mid DESCENDING THORACIC AORTA: 2.6 cm RELATIONSHIP OF THE CARDIOVASCULAR STRUCTURES OF THE STERNUM: Left brachio-cephalic vein lies immediately behind the manubrium sternum RV lies 8 mm behind the lower sternum limited upper ABDOMEN: small cystic lesions of the liver Social Sciences Chair (topogram) images: No addit (more content not included)... Invalid Interpretation Code [facility] Absolute lymphocyte countOrd ered By: Martha Kim on 03-20-2024 Lymphocytes Auto (Unsp spec) [#/Vol] 1.89 10*3/uL 0.83-4.51 [facility] Automated lymphocyte count a s percentage of total leukocytesOrdered By: Martha Kim on 03-20-2024 Lymphocytes/100 WBC Auto (Unsp spec) 20.6 % 19-41 [facility] Basophil percentageOrdered B y: Martha Kim on 03-20-2024 Basophils/100 WBC (Bld) 1.0 % 0-1 [facility] Bilirubin [Mass/Vol] 0.40 mg/dL 0.20-1.00 [facility] Comment on above: For patients on eltr ombopag therapy, use of Dimension [place] TBIL is not recommended. Chloride [Moles/Vol] 107 mmol/L 98-107 [facility] Eosinophils/100 WBC (Bld) 4.5 % 0-5 [facility] Glucose [Mass/Vol] 127 mg/dL 74-106 [facility] Comment on above: Fasting Glucose resu lt greater than or equal to 126 mg/dL suggests DIABETES MELLITUS per A.D.A. criteria. Hemoglobin (Bld) [Mass/Vol] 12.2 g/dL 13.0-16.5 [facility] Monocytes/100 WBC (Bld) 8.9 % 0-10 [facility] Neutrophils (Bld) [#/Vol] 5.9 10*3/uL 2.0-7.7 [facility] Neutrophils/100 WBC (Bld) 64.5 % 47-70 [facility] Potassium [Moles/Vol] 3.9 mmol/L 3.5-5.1 [facility] Protein [Mass/Vol] 7.0 g/dL 6.4-8.2 [facility] Sodium [Moles/Vol] 139 mmol/L 136-145 [facility] WBC (Bld) [#/Vol] 9.2 10*3/uL 4.4-11.0 [facility] Determination of erythrocyte mean corpuscular volume (MCV)Ordered By: Martha Kim on 03-20-2024 MCV (RBC) [Entitic vol] 97.3 fL 80-94 [facility] Erythrocyte distribution wid th ratioOrdered By: Martha Kim on 03-20-2024 Erythrocyte distribution width (RBC) [Ratio] 15.4 % 11.6-14.6 [facility] Erythrocyte distribution wid th standard deviationOrdered By: Martha Kim on 03-20-2024 Erythrocyte distribution width (RBC) [Entitic vol] 53.5 fL 35.1-43.9 [facility] Hematocrit Auto (Bld) [Volum e fraction]Ordered By: Martha Kim on 03-20-2024 Hematocrit (Bld) [Volume fraction] 36.2 % 40-54 [facility] Immature granulocytes/100 WB C Auto (Bld)Ordered By: Martha Kim on 03-20-2024 Immature granulocytes/100 WBC (Bld) 0.500 % 0.0-0.9 [facility] Comment on above: IG% - Immature Granu locytes (promyelocytes, myelocytes and metamyelocytes) > 1% indicates that a LEFT SHIFT is Present. Laboratory - Chemistry and C hemistry - challengeOrdered By: Martha Kim on 03-20-2024 Albumin/Globulin [Mass ratio] 1.0 {ratio} 0.9-2.4 [facility] ALP [Catalytic activity/Vol] 111 U/L 45-117 [facility] ALT [Catalytic activity/Vol] 21 U/L 16-61 [facility] CO2 [Moles/Vol] 26.0 mmol/L 21.0-32.0 [facility] Globulin (S) [Mass/Vol] 3.5 g/dL 2.2-4.2 [facility] Urea nitrogen/Creatinine [Mass ratio] 10.0 mg/mg 10-20 [facility] Laboratory - Hematology and Cell countsOrdered By: Martha Kim on 03-20-2024 MCH (RBC) [Entitic mass] 32.8 pg 27.0-32.0 [facility] MCHC (RBC) [Mass/Vol] 33.7 g/dL 32-36 [facility] Nucleated RBC/100 WBC (Bld) [Ratio] 0 % 0-5 [facility] Platelet mean volume (Bld) [Entitic vol] 9.8 fL 6.2-12.0 [facility] Platelets (Bld) [#/Vol] 271 10*3/uL 150-450 [facility] No Panel InformationOrdered By: Martha Kim on 03-20-2024 Estimated GFR (MDRD) Amer 96 mL/min >60 [facility] Comment on above: GFR Calc Estimated GFR (MDRD) Non-Af Amer 79 mL/min >60 [facility] Comment on above: Non- GFR Calc RBC Auto (Bld) [#/Vol]Ordere d By: Martha Kim on 03-20-2024 RBC (Bld) [#/Vol] 3.72 10*6/uL 4.6-6.2 [facility] Serum or plasma calcium camilo urement (mass/volume)Ordered By: Martha Kim on 03-20-2024 Calcium [Mass/Vol] 9.3 mg/dL 8.5-10.1 [facility] Serum or plasma creatinine m easurement (mass/volume)Ordered By: Martha Kim on 03-20-2024 Creatinine [Mass/Vol] 1.00 mg/dL 0.70-1.30 [facility] Comment on above: The validity of the calculated GFR & GFRAA in patients over 70 years has not been determined. Clinical correlation is essential. Serum or plasma urea nitroge n measurement (mass/volume)Ordered By: Martha Kim on 03-20-2024 Urea nitrogen [Mass/Vol] 10 mg/dL 7-18 [facility] Thin prep Papanicolaou smear with manual screeningOrdered By: Martha Kim on 03-20-2024 Thin prep Papanicolaou smear with manual screening 3.5 g/dL 3.2-5.0 [facility] Thin prep Papanicolaou smear with manual screening 14 U/L 15-37 [facility] Thin prep Papanicolaou smear with manual screening 6 5-15 [facility] Basophil percentageOrdered B y: Nayeli Hiadlgo on 01-31-2024 Bilirubin [Mass/Vol] 0.50 mg/dL 0.20-1.00 [facility] Comment on above: For patients on eltr ombopag therapy, use of Dimension [place] TBIL is not recommended. Cholesterol [Mass/Vol] 129 mg/dL <200 [facility] Comment on above: <200 mg/dL Desirable 200-240 mg/dL Borderline >240 mg/dL High Risk Protein [Mass/Vol] 7.1 g/dL 6.4-8.2 [facility] Triglyceride [Mass/Vol] 176 mg/dL <[address] [facility] Comment on above: The drugs N-Acetylcy steine and Metamizole may falsely depress this assay.Serum Triglycerides Reference Interval Normal <150 mg/dL Borderline high 150 - 199 mg/dL High 200 - 499 mg/dL Very High > or = 500 mg/dL Direct bilirubinOrdered By: Nayeli Hidalgo on 01-31-2024 Bilirubin.direct [Mass/Vol] 0.14 mg/dL 0.00-0.30 [facility] Laboratory - Chemistry and C hemistry - challengeOrdered By: Nayeli Hidalgo on 01-31-2024 ALP [Catalytic activity/Vol] 88 U/L 45-117 [facility] ALT [Catalytic activity/Vol] 21 U/L 16-61 [facility] Cholesterol in HDL [Mass/Vol] 45 mg/dL >40 [facility] Comment on above: The drugs N-Acetylcy steine and Metamizole may falsely depress this assay. Reference Range HDL <40 mg/dL Low HDL Cholesterol HDL >or= 60 mg/dL High HDL Cholesterol Cholesterol in LDL [Mass/Vol] 49 mg/dL 0-130 [facility] Globulin (S) [Mass/Vol] 3.2 g/dL 2.2-4.2 [facility] No Panel InformationOrdered By: Nayeli Hidalgo on 01-31-2024 VLDL Cholesterol 35 mg/dL 5-40 [facility] Thin prep Papanicolaou smear with manual screeningOrdered By: Nayeli Hidalgo on 01-31-2024 Thin prep Papanicolaou smear with manual screening 3.9 g/dL 3.2-5.0 [facility] Thin prep Papanicolaou smear with manual screening 14 U/L 15-37 [facility] Absolute lymphocyte countOrd ered By: Martha Kim on 01-30-2024 Lymphocytes Auto (Unsp spec) [#/Vol] 3.19 10*3/uL 0.83-4.51 [facility] Automated lymphocyte count a s percentage of total leukocytesOrdered By: Martha Kim on 01-30-2024 Lymphocytes/100 WBC Auto (Unsp spec) 25.3 % 19-41 [facility] Basophil percentageOrdered B y: Martha Kim on 01-30-2024 Basophils/100 WBC (Bld) 1.0 % 0-1 [facility] Bilirubin [Mass/Vol] 0.50 mg/dL 0.20-1.00 [facility] Comment on above: For patients on eltr ombopag therapy, use of Dimension [place] TBIL is not recommended. Chloride [Moles/Vol] 106 mmol/L 98-107 [facility] Eosinophils/100 WBC (Bld) 5.3 % 0-5 [facility] Glucose [Mass/Vol] 111 mg/dL 74-106 [facility] Comment on above: Fasting Glucose resu lt from 100 to 125 mg/dL suggests IMPAIRED HOMEOSTASIS per A.D.A. criteria. Hemoglobin (Bld) [Mass/Vol] 13.8 g/dL 13.0-16.5 [facility] Monocytes/100 WBC (Bld) 5.9 % 0-10 [facility] Neutrophils (Bld) [#/Vol] 7.9 10*3/uL 2.0-7.7 [facility] Neutrophils/100 WBC (Bld) 62.1 % 47-70 [facility] Potassium [Moles/Vol] 3.8 mmol/L 3.5-5.1 [facility] Protein [Mass/Vol] 7.4 g/dL 6.4-8.2 [facility] Sodium [Moles/Vol] 141 mmol/L 136-145 [facility] WBC (Bld) [#/Vol] 12.6 10*3/uL 4.4-11.0 [facility] Determination of erythrocyte mean corpuscular volume (MCV)Ordered By: Martha Kim on 01-30-2024 MCV (RBC) [Entitic vol] 96.4 fL 80-94 [facility] Erythrocyte distribution wid th ratioOrdered By: [facility] Julio on 01-30-2024 Erythrocyte distribution width (RBC) [Ratio] 15.7 % 11.6-14.6 [facility] Erythrocyte distribution wid th standard deviationOrdered By: [facility] Julio on 01-30-2024 Erythrocyte distribution width (RBC) [Entitic vol] 55.0 fL 35.1-43.9 [facility] Hematocrit Auto (Bld) [Volum e fraction]Ordered By: Marthalucy Kim on 01-30-2024 Hematocrit (Bld) [Volume fraction] 40.4 % 40-54 [facility] Immature granulocytes/100 WB C Auto (Bld)Ordered By: [facility] Julio on 01-30-2024 Immature granulocytes/100 WBC (Bld) 0.400 % 0.0-0.9 [facility] Comment on above: IG% - Immature Granu locytes (promyelocytes, myelocytes and metamyelocytes) > 1% indicates that a LEFT SHIFT is Present. Laboratory - Chemistry and C hemistry - challengeOrdered By: Martha Kim on 01-30-2024 Albumin/Globulin [Mass ratio] 1.1 {ratio} 0.9-2.4 [facility] ALP [Catalytic activity/Vol] 89 U/L 45-117 [facility] ALT [Catalytic activity/Vol] 26 U/L 16-61 [facility] CO2 [Moles/Vol] 28.0 mmol/L 21.0-32.0 [facility] Globulin (S) [Mass/Vol] 3.5 g/dL 2.2-4.[address] [facility] Urea nitrogen/Creatinine [Mass ratio] 13.2 mg/mg 10-20 [facility] Laboratory - Hematology and Cell countsOrdered By: Martha Kim on 01-30-2024 MCH (RBC) [Entitic mass] 32.9 pg 27.0-32.0 [facility] MCHC (RBC) [Mass/Vol] 34.2 g/dL 32-36 [facility] Nucleated RBC/100 WBC (Bld) [Ratio] 0 % 0-5 [facility] Platelet mean volume (Bld) [Entitic vol] 10.0 fL 6.2-12.0 [facility] Platelets (Bld) [#/Vol] 333 10*3/uL 150-450 [facility] No Panel InformationOrdered By: Martha Kim on 01-30-2024 Estimated GFR (MDRD) Amer 98 mL/min >60 [facility] Comment on above: GFR Calc Estimated GFR (MDRD) Non-Af Amer 81 mL/min >60 [facility] Comment on above: Non- GFR Calc RBC Auto (Bld) [#/Vol]Ordere d By: Martha Kim on 01-30-2024 RBC (Bld) [#/Vol] 4.19 10*6/uL 4.6-6.2 [facility] Serum or plasma calcium camilo urement (mass/volume)Ordered By: Martha Kim on 01-30-2024 Calcium [Mass/Vol] 9.5 mg/dL 8.5-10.1 [facility] Serum or plasma creatinine m easurement (mass/volume)Ordered By: Martha Kim on 01-30-2024 Creatinine [Mass/Vol] 0.98 mg/dL 0.70-1.30 [facility] Comment on above: The validity of the calculated GFR & GFRAA in patients over 70 years has not been determined. Clinical correlation is essential. Serum or plasma urea nitroge n measurement (mass/volume)Ordered By: Martha Kim on 01-30-2024 Urea nitrogen [Mass/Vol] 13 mg/dL 7-18 [facility] Thin prep Papanicolaou smear with manual screeningOrdered By: Martha Kim on 01-30-2024 Thin prep Papanicolaou smear with manual screening 3.9 g/dL 3.2-5.0 [facility] Thin prep Papanicolaou smear with manual screening 18 U/L 15-37 [facility] Thin prep Papanicolaou smear with manual screening 7 5-15 [facility] Absolute lymphocyte countOrd ered By: Martha Kim on 12-09-2023 Lymphocytes Auto (Unsp spec) [#/Vol] 1.80 10*3/uL 0.83-4.51 [facility] Automated lymphocyte count a s percentage of total leukocytesOrdered By: Martha Kim on 12-09-2023 Lymphocytes/100 WBC Auto (Unsp spec) 19.4 % 19-41 [facility] Basophil percentageOrdered B y: Martha Kim on 12-09-2023 Basophils/100 WBC (Bld) 1.1 % 0-1 [facility] Bilirubin [Mass/Vol] 0.40 mg/dL 0.20-1.00 [facility] Comment on above: For patients on eltr ombopag therapy, use of Dimension [place] TBIL is not recommended. Chloride [Moles/Vol] 109 mmol/L 98-107 [facility] Eosinophils/100 WBC (Bld) 5.9 % 0-5 [facility] Glucose [Mass/Vol] 93 mg/dL 74-106 [facility] Hemoglobin (Bld) [Mass/Vol] 13.1 g/dL 13.0-16.5 [facility] Monocytes/100 WBC (Bld) 6.8 % 0-[address] [facility] Neutrophils (Bld) [#/Vol] 6.2 10*3/uL 2.0-7.7 [facility] Neutrophils/100 WBC (Bld) 66.5 % 47-70 [facility] Potassium [Moles/Vol] 4.3 mmol/L 3.5-5.1 [facility] Protein [Mass/Vol] 7.7 g/dL 6.4-8.2 [facility] Sodium [Moles/Vol] 140 mmol/L 136-145 [facility] WBC (Bld) [#/Vol] 9.3 10*3/uL 4.4-11.0 [facility] Determination of erythrocyte mean corpuscular volume (MCV)Ordered By: Martha Kim on 12-09-2023 MCV (RBC) [Entitic vol] 94.1 fL 80-94 [facility] Erythrocyte distribution wid th ratioOrdered By: Martha Kim on 12-09-2023 Erythrocyte distribution width (RBC) [Ratio] 17.1 % 11.6-14.6 [facility] Erythrocyte distribution wid th standard deviationOrdered By: Martha Kim on 12-09-2023 Erythrocyte distribution width (RBC) [Entitic vol] 58.8 fL 35.1-43.9 [facility] Hematocrit Auto (Bld) [Volum e fraction]Ordered By: Marthalucy Kim on 12-09-2023 Hematocrit (Bld) [Volume fraction] 38.5 % 40-54 [facility] Immature granulocytes/100 WB C Auto (Bld)Ordered By: [facility] Julio on 12-09-2023 Immature granulocytes/100 WBC (Bld) 0.300 % 0.0-0.9 [facility] Comment on above: IG% - Immature Granu locytes (promyelocytes, myelocytes and metamyelocytes) > 1% indicates that a LEFT SHIFT is Present. Laboratory - Chemistry and C hemistry - challengeOrdered By: [facility] Julio on 12-09-2023 Albumin/Globulin [Mass ratio] 0.9 {ratio} 0.9-2.4 [facility] ALP [Catalytic activity/Vol] 116 U/L 45-117 [facility] ALT [Catalytic activity/Vol] 18 U/L 16-61 [facility] CO2 [Moles/Vol] 27.0 mmol/L 21.0-32.0 [facility] Globulin (S) [Mass/Vol] 4.0 g/dL 2.2-4.2 [facility] Urea nitrogen/Creatinine [Mass ratio] 8.1 mg/mg 10-20 [facility] Laboratory - Hematology and Cell countsOrdered By: Martha Kim on 12-09-2023 MCH (RBC) [Entitic mass] 32.0 pg 27.0-32.0 [facility] MCHC (RBC) [Mass/Vol] 34.0 g/dL 32-36 [facility] Nucleated RBC/100 WBC (Bld) [Ratio] 0 % 0-5 [facility] Platelets (Bld) [#/Vol] 286 10*3/uL 150-450 [facility] No Panel InformationOrdered By: Martha Kim on 12-09-2023 Estimated GFR (MDRD) Amer 85 mL/min >60 [facility] Comment on above: GFR Calc Estimated GFR (MDRD) Non-Af Amer 70 mL/min >60 [facility] Comment on above: Non- GFR Calc Platelet mean volume Blake-Ec ker (Bld) [Entitic vol]Ordered By: Martha Kim on 12-09-2023 Platelet mean volume (Bld) [Entitic vol] 9.7 fL 6.2-12.0 [facility] RBC Auto (Bld) [#/Vol]Ordere d By: Martha Kim on 12-09-2023 RBC (Bld) [#/Vol] 4.09 10*6/uL 4.6-6.2 [facility] Serum or plasma calcium camilo urement (mass/volume)Ordered By: Martha Kim on 12-09-2023 Calcium [Mass/Vol] 9.7 mg/dL 8.5-10.1 [facility] Serum or plasma creatinine m easurement (mass/volume)Ordered By: Martha Kim on 12-09-2023 Creatinine [Mass/Vol] 1.11 mg/dL 0.70-1.30 [facility] Comment on above: The validity of the calculated GFR & GFRAA in patients over 70 years has not been determined. Clinical correlation is essential. Serum or plasma urea nitroge n measurement (mass/volume)Ordered By: Martha Kim on 12-09-2023 Urea nitrogen [Mass/Vol] 9 mg/dL 7-18 [facility] Thin prep Papanicolaou smear with manual screeningOrdered By: Martha Kim on 12-09-2023 Thin prep Papanicolaou smear with manual screening 3.7 g/dL 3.2-5.0 [facility] Thin prep Papanicolaou smear with manual screening 15 U/L 15-37 [facility] Thin prep Papanicolaou smear with manual screening 4 5-15 [facility] Absolute lymphocyte countOrd ered By: Beth Briones on 11-08-2023 Lymphocytes Auto (Unsp spec) [#/Vol] 1.17 10*3/uL 0.83-4.51 [facility] Basophil percentageOrdered B y: Beth Briones on 11-08-2023 Basophil percentage 0 SEEN /hpf 0-5 [facility] Basophils/100 WBC (Bld) 0.8 % 0-1 [facility] Bilirubin [Mass/Vol] 0.40 mg/dL 0.20-1.00 [facility] Comment on above: For patients on eltr ombopag therapy, use of Dimension [place] TBIL is not recommended. Chloride [Moles/Vol] 104 mmol/L 98-107 [facility] Eosinophils/100 WBC (Bld) 3.3 % 0-5 [facility] Glucose [Mass/Vol] 85 mg/dL 74-106 [facility] Lactate [Moles/Vol] 1.4 mmol/L 0.4-2.0 [facility] Neutrophils (Bld) [#/Vol] 5.3 10*3/uL 2.0-7.7 [facility] Neutrophils/100 WBC (Bld) 69.5 % 47-70 [facility] Potassium [Moles/Vol] 4.1 mmol/L 3.5-5.1 [facility] Protein [Mass/Vol] 7.2 g/dL 6.4-8.2 [facility] Sodium [Moles/Vol] 135 mmol/L 136-145 [facility] WBC (Bld) [#/Vol] 7.6 10*3/uL 4.4-11.0 [facility] Bilirubin Test strip Ql (U)O rdered By: Beth Briones on 11-08-2023 Bilirubin Ql (U) Negative Negative [facility] Blood erythrocytes count (nu mber/volume)Ordered By: Beth Briones on 11-08-2023 RBC (Bld) [#/Vol] 4.21 10*6/uL 4.6-6.2 [facility] Blood hemoglobin measurement (mass/volume)Ordered By: Beth Briones on 11-08-2023 Hemoglobin (Bld) [Mass/Vol] 13.4 g/dL 13.0-16.5 [facility] Blood lymphocytes/100 leukoc ytesOrdered By: Beth Briones on 11-08-2023 Lymphocytes/100 WBC (Bld) 15.3 % 19-41 [facility] Blood monocytes/100 leukocyt esOrdered By: Beth Briones on 11-08-2023 Monocytes/100 WBC (Bld) 10.7 % 0-10 [facility] Blood platelet mean volumeOr dered By: Beth Briones on 11-08-2023 Platelet mean volume (Bld) [Entitic vol] 9.3 fL 6.2-12.0 [facility] Culture, urineOrdered By: Edward Briones on 11-08-2023 Bacteria identified Cx Nom (U) Culture exhibits no growth. [facility] Determination of erythrocyte mean corpuscular volume (MCV)Ordered By: Beth Briones on 11-08-2023 MCV (RBC) [Entitic vol] 91.0 fL 80-94 [facility] Direct bilirubinOrdered By: Beth Briones on 11-08-2023 Bilirubin.direct [Mass/Vol] 0.13 mg/dL 0.00-0.30 [facility] Hematocrit Auto (Bld) [Volum e fraction]Ordered By: Beth Briones on 11-08-2023 Hematocrit (Bld) [Volume fraction] 38.3 % 40-54 [facility] Influenza virus A and B and SARS-CoV-2 (COVID-19) Ag panel - Upper respiratory specimOrdered By: Beth Briones on 11-08-2023 SARS-CoV-2 & FLU Antigen (Rapid) SARS-CoV-2 (COVID 19) [facility] Ketones Test strip Ql (U)Ord ered By: Beth Briones on 11-08-2023 Ketones Ql (U) Negative Negative [facility] Laboratory - Chemistry and C hemistry - challengeOrdered By: Beth Briones on 11-08-2023 ALP [Catalytic activity/Vol] 100 U/L 45-117 [facility] ALT [Catalytic activity/Vol] 17 U/L 16-61 [facility] CO2 [Moles/Vol] 26.0 mmol/L 21.0-32.0 [facility] Globulin (S) [Mass/Vol] 3.9 g/dL 2.2-4.2 [facility] Urea nitrogen/Creatinine [Mass ratio] 12.5 mg/mg 10-20 [facility] Laboratory - Hematology and Cell countsOrdered By: Beth Briones on 11-08-2023 Erythrocyte distribution width (RBC) [Entitic vol] 51.1 fL 35.1-43.9 [facility] Erythrocyte distribution width (RBC) [Ratio] 15.9 % 11.6-14.6 [facility] Immature granulocytes/100 WBC (Bld) 0.400 % 0.0-0.9 [facility] Comment on above: IG% - Immature Granu locytes (promyelocytes, myelocytes and metamyelocytes) > 1% indicates that a LEFT SHIFT is Present. MCH (RBC) [Entitic mass] 31.8 pg 27.0-32.0 [facility] Nucleated RBC/100 WBC (Bld) [Ratio] 0 % 0-5 [facility] Laboratory - Microbiology an d Antimicrobial susceptibilityOrdered By: Beth Briones on 11-08-2023 Bacteria identified Cx Nom (Bld) No growth in 5 days. [facility] Bacteria identified Cx Nom (Bld) No growth in 5 days. [facility] MCHC Auto (RBC) [Mass/Vol]Or dered By: Beth Briones on 11-08-2023 MCHC (RBC) [Mass/Vol] 35.0 g/dL 32-36 [facility] Mucus LM Ql (Urine sed)Order ed By: Beth Briones on 11-08-2023 Mucus Ql (Urine sed) 0 SEEN /hpf [facility] Nitrite Test strip Ql (U)Ord ered By: Beth Briones on 11-08-2023 Nitrite Ql (U) Negative Negative [facility] No Panel InformationOrdered By: Beth Briones on 11-08-2023 Estimated Creatinine Clearance Calc 75.65 ml/min [facility] [facility] Estimated GFR (MDRD) Amer 92 mL/min >60 [facility] Comment on above: GFR Calc Estimated GFR (MDRD) Non-Af Amer 76 mL/min >60 [facility] Comment on above: Non- GFR Calc Platelets bldOrdered By: Rossana Briones on 11-08-2023 Platelets (Bld) [#/Vol] 231 10*3/uL 150-450 [facility] Protein Test strip Ql (U)Ord ered By: Beth Briones on 11-08-2023 Protein Ql (U) Negative Negative [facility] Serum or plasma albumin camilo urement (mass/volume)Ordered By: Beth Briones on 11-08-2023 Albumin [Mass/Vol] 3.3 g/dL 3.2-5.0 [facility] Serum or plasma calcium camilo urement (mass/volume)Ordered By: Beth Briones on 11-08-2023 Calcium [Mass/Vol] 9.1 mg/dL 8.5-10.1 [facility] Serum or plasma creatinine m easurement (mass/volume)Ordered By: Beth Briones on 11-08-2023 Creatinine [Mass/Vol] 1.04 mg/dL 0.70-1.30 [facility] Comment on above: The validity of the calculated GFR & GFRAA in patients over 70 years has not been determined. Clinical correlation is essential. Serum or plasma urea nitroge n measurement (mass/volume)Ordered By: Beth Briones on 11-08-2023 Urea nitrogen [Mass/Vol] 13 mg/dL 7-18 [facility] Squamous epithelial cells de tection in urine sediment by light microscopyOrdered By: Beth Briones on 11-08-2023 Epithelial cells.squamous LM Ql (Urine sed) 0 SEEN /hpf 0-5 [facility] Thin prep Papanicolaou smear with manual screeningOrdered By: Beth Briones on 11-08-2023 Thin prep Papanicolaou smear with manual screening 12 U/L 15-37 [facility] Thin prep Papanicolaou smear with manual screening 5 5-15 [facility] Upper respiratory specimen i nfluenza A virus, influenza B virus, and severe acute resOrdered By: Beth Briones on 11-08-2023 SARS-CoV-2 & FLU Antigen (Rapid) SARS-CoV-2 (COVID 19) [facility] Urine blood detectionOrdered By: Beth Briones on 11-08-2023 RBC Ql (U) 50 /ul Negative [facility] RBC Ql (U) 0-5 SEEN /hpf 0-5 [facility] Urine clarityOrdered By: Rossana Briones on 11-08-2023 Clarity (U) Clear Clear [facility] Urine color determinationOrd ered By: Beth Briones on 11-08-2023 Color (U) Yellow Yellow [facility] Urine glucose detectionOrder ed By: Beth Briones on 11-08-2023 Glucose Ql (U) Normal mg/dl Normal [facility] Urine leukocyte esterase det ection by dipstickOrdered By: Beth Briones on 11-08-2023 Leukocyte esterase Test strip Ql (U) Negative Negative [facility] Urine pHOrdered By: Beth Briones on 11-08-2023 pH (U) 6.0 [pH] 5.0 - 8.0 [facility] Urine sediment bacteria coun t by microscopy (number/high power field)Ordered By: Beth Briones on 11-08-2023 Bacteria LM.HPF (Urine sed) [#/Area] 0 /[HPF] None Seen [facility] Urine specific gravity measu rementOrdered By: Beth Briones on 11-08-2023 Specific gravity (U) [Rel density] 1.015 1.002-1.030 [facility] Urobilinogen Auto test strip Ql (U)Ordered By: Beth Briones on 11-08-2023 Urobilinogen Ql (U) Normal mg/dl Normal [facility] Absolute lymphocyte countOrd ered By: Martha Kim on 09-24-2023 Lymphocytes Auto (Unsp spec) [#/Vol] 1.63 10*3/uL 0.83-4.51 [facility] Basophil percentageOrdered B y: Martha Kim on 09-24-2023 Basophils/100 WBC (Bld) 1.0 % 0-1 [facility] Bilirubin [Mass/Vol] 0.40 mg/dL 0.20-1.00 [facility] Comment on above: For patients on eltr ombopag therapy, use of Dimension [place] TBIL is not recommended. Chloride [Moles/Vol] 109 mmol/L 98-107 [facility] Eosinophils/100 WBC (Bld) 3.4 % 0-5 [facility] Glucose [Mass/Vol] 100 mg/dL 74-106 [facility] Comment on above: Fasting Glucose resu lt from 100 to 125 mg/dL suggests IMPAIRED HOMEOSTASIS per A.D.A. criteria. Neutrophils (Bld) [#/Vol] 5.0 10*3/uL 2.0-7.7 [facility] Neutrophils/100 WBC (Bld) 64.9 % 47-70 [facility] Potassium [Moles/Vol] 4.3 mmol/L 3.5-5.1 [facility] Protein [Mass/Vol] 7.4 g/dL 6.4-8.2 [facility] Sodium [Moles/Vol] 138 mmol/L 136-145 [facility] WBC (Bld) [#/Vol] 7.7 10*3/uL 4.4-11.0 [facility] Blood erythrocytes count (nu mber/volume)Ordered By: Martha Kim on 09-24-2023 RBC (Bld) [#/Vol] 4.20 10*6/uL 4.14-5.80 [facility] Blood hemoglobin measurement (mass/volume)Ordered By: Martha Kim on 09-24-2023 Hemoglobin (Bld) [Mass/Vol] 12.9 g/dL 13.0-16.5 [facility] Blood lymphocytes/100 leukoc ytesOrdered By: Martha Kim on 09-24-2023 Lymphocytes/100 WBC (Bld) 21.1 % 19-41 [facility] Blood monocytes/100 leukocyt esOrdered By: Martha Kim on 09-24-2023 Monocytes/100 WBC (Bld) 9.3 % 0-[address] [facility] Blood platelet mean volumeOr dered By: Martha Kim on 09-24-2023 Platelet mean volume (Bld) [Entitic vol] 9.7 fL 6.2-12.0 [facility] Determination of erythrocyte mean corpuscular volume (MCV)Ordered By: Martha Kim on 09-24-2023 MCV (RBC) [Entitic vol] 92.4 fL 80-94 [facility] Erythrocyte [id number] ate dehydrogenase (enzymatic activity/mass)Ordered By: Martha Kim on 09-24-2023 G6PD (RBC) [Catalytic activity/Mass] 244 127-427 [facility] Comment on above: Result Units: U/10E1 2 RBCWhen decreased, G-6-PD, Quant. values are associated withacute hemolytic anemia when deficient individuals areexposed to oxidative stress, such as with certainmedications (e.g., primaquine), infection, or ingestion offava beans. Caution: In patients with acute hemolysis(e.g., abnormally low RBC values), testing for G-6-PD maybe falsely normal because older erythrocytes with a higherenzyme deficiency have been hemolyzed. Young erythrocytesand reticulocytes have normal or near-normal enzymeactivity. Normal values of G-6-PD may be measured forseveral weeks following a hemolytic event. Erythrocyte sedimentation ra teOrdered By: Martha Kim on 09-24-2023 ESR (Bld) [Velocity] 39 mm/h 0-20 [facility] Hematocrit Auto (Bld) [Volum e fraction]Ordered By: Martha Kim on 09-24-2023 Hematocrit (Bld) [Volume fraction] 38.8 % 40-54 [facility] Laboratory - Chemistry and C hemistry - challengeOrdered By: Martha Kim on 09-24-2023 ALP [Catalytic activity/Vol] 108 U/L 45-117 [facility] ALT [Catalytic activity/Vol] 17 U/L 16-61 [facility] CO2 [Moles/Vol] 24.0 mmol/L 21.0-32.0 [facility] Globulin (S) [Mass/Vol] 3.9 g/dL 2.2-4.2 [facility] Urea nitrogen/Creatinine [Mass ratio] 18.3 mg/mg 10-20 [facility] Laboratory - Hematology and Cell countsOrdered By: Martha Kim on 09-24-2023 Erythrocyte distribution width (RBC) [Entitic vol] 48.5 fL 35.1-43.9 [facility] Erythrocyte distribution width (RBC) [Ratio] 14.3 % 11.6-14.6 [facility] Immature granulocytes/100 WBC (Bld) 0.300 % 0.0-0.9 [facility] Comment on above: IG% - Immature Granu locytes (promyelocytes, myelocytes and metamyelocytes) > 1% indicates that a LEFT SHIFT is Present. MCH (RBC) [Entitic mass] 30.7 pg 27.0-32.0 [facility] Nucleated RBC/100 WBC (Bld) [Ratio] 0 % 0-5 [facility] MCHC Auto (RBC) [Mass/Vol]Or dered By: Martha Kim on 09-24-2023 MCHC (RBC) [Mass/Vol] 33.2 g/dL 32-36 [facility] No Panel InformationOrdered By: Martha Kim on 09-24-2023 Anti-Nuclear Antibody Screen Negative Negative [facility] Comment on above: Performed at: [employer] [place] [id number] Director: Alek Granados PhD, Phone: [phone] Estimated GFR (MDRD) Amer 98 mL/min >60 [facility] Comment on above: GFR Calc Estimated GFR (MDRD) Non-Af Amer 81 mL/min >60 [facility] Comment on above: Non- GFR Calc Hepatitis B Surface Antigen Non-Reactive Nonreactive [facility] Hepatitis C Antibody Non-Reactive Nonreactive [facility] Comment on above: Non Reactive: < 0.8 Equivocal: >/= 0.8 to < 1.0 Reactive: >/= 1.0The CDC recommends that a reactive/equivocal HCV antibody result be followed up by the HCV Nucleic Acid Amplificationtest (283505) Platelets bldOrdered By: Jude Kim on 09-24-2023 Platelets (Bld) [#/Vol] 288 10*3/uL 150-450 [facility] Qualitative QuantiFERON-TB g old in tube testOrdered By: Martha Kim on 09-24-2023 M. tuberculosis tuberculin stim IFN-g Ql (Bld) 0.02 IU/mL . [facility] Serum cyclic citrullinated p eptide IgG antibody assay (units/volume)Ordered By: Martha Kim on 09-24-2023 Cyclic citrullinated peptide IgG Qn > 250 units 0-19 [facility] Comment on above: Negative <20 Weak po sitive 20 - 39 Moderate positive 40 - 59 Strong positive >59Performed at: [facility] [employer] [id number] Director: Alek Granados PhD, Phone: [phone] at: [facility] [employer] [id number] Director: Lucy Luo MD, Phone: [phone] Serum hepatitis B virus surf adryan antibody IgG detectionOrdered By: Martha Kim on 09-24-2023 HBV surface IgG Ql (S) Non-Reactive [facility] Comment on above: Non Reactive: Incons istent with immunity less than <10 mIU/mL Reactive: Consistent with immunity greater than or equal to 10 mIU/mL Serum or plasma C reactive p rotein measurement (mass/volume)Ordered By: Martha Kim on 09-24-2023 CRP [Mass/Vol] 17.30 mg/L 0.0-3.0 [facility] Comment on above: C-Reactive Protein ( CRP) provides useful information for thediagnosis, therapy and monitoring of inflammatory processesand associated diseases. For the evaluation of Relative Riskfor Cardiovascular Disease, a High Sensitivity CRP (HSCRP)should be ordered. Serum or plasma albumin camilo urement (mass/volume)Ordered By: Martha Kmi on 09-24-2023 Albumin [Mass/Vol] 3.5 g/dL 3.2-5.0 [facility] Serum or plasma albumin/glob ulin mass ratioOrdered By: Martha Kim on 09-24-2023 Albumin/Globulin [Mass ratio] 0.9 {ratio} 0.9-2.4 [facility] Serum or plasma calcium camilo urement (mass/volume)Ordered By: Martha Kim on 09-24-2023 Calcium [Mass/Vol] 9.1 mg/dL 8.5-10.1 [facility] Serum or plasma creatinine m easurement (mass/volume)Ordered By: Martha Kim on 09-24-2023 Creatinine [Mass/Vol] 0.98 mg/dL 0.70-1.30 [facility] Comment on above: The validity of the calculated GFR & GFRAA in patients over 70 years has not been determined. Clinical correlation is essential. Serum or plasma urea nitroge n measurement (mass/volume)Ordered By: Martha Kim on 09-24-2023 Urea nitrogen [Mass/Vol] 18 mg/dL 7-18 [facility] Serum rheumatoid factor dete ctionOrdered By: Martha Kim on 09-24-2023 Rheumatoid factor Ql (S) 1140.0 IU/mL <15 [facility] Thin prep Papanicolaou smear with manual screeningOrdered By: Martha Kim on 09-24-2023 Thin prep Papanicolaou smear with manual screening 11 U/L 15-37 [facility] Thin prep Papanicolaou smear with manual screening 5 5-15 [facility] Thin prep Papanicolaou smear with manual screening Comment . [facility] Comment on above: QuantiFERON-TB Gold Plus is a qualitative indirect test forM tuberculosis infection (including disease) and isintended for use in conjunction with risk assessment,radiography, and other medical and diagnostic evaluations.The QuantiFERON-TB Gold Plus result is determined bysubtracting the Nil value from either TB antigen (Ag)value. The Mitogen tube serves as a control for the test. Thin prep Papanicolaou smear with manual screening 0.03 IU/mL . [facility] Thin prep Papanicolaou smear with manual screening 0.01 IU/mL . [facility] Thin prep Papanicolaou smear with manual screening > 10.00 IU/mL . [facility] Thin prep Papanicolaou smear with manual screening Negative Negative [facility] Comment on above: No response to M tub erculosis antigens detected.Infection with M tuberculosis is unlikely, but high riskindividuals should be considered for additional testing(ATS/IDSA/CDC Clinical Practice Guidelines, 2017). Thereference range is an Antigen minus Nil result of <0.35IU/mL.The specimen received for QuantiFERON testing was incubatedby the ordering institution. Specific procedures outlinedin our Directory of Services and in the package insert forthe QuantiFERON Gold (In Tube) test must be followed toenable for proper stimulation of cells for the productionof interferon gamma. Chemiluminescence immunoassaymethodology Basophil percentageOrdered B y: Nayeli Hidalgo on 07-29-2023 Bilirubin [Mass/Vol] 0.50 mg/dL 0.20-1.00 [facility] Comment on above: For patients on eltr ombopag therapy, use of Dimension [place] TBIL is not recommended. Cholesterol [Mass/Vol] 142 mg/dL <200 [facility] Comment on above: <200 mg/dL Desirable 200-240 mg/dL Borderline >240 mg/dL High Risk Protein [Mass/Vol] 7.5 g/dL 6.4-8.2 [facility] Triglyceride [Mass/Vol] 82 mg/dL <199 [facility] Comment on above: The drugs N-Acetylcy steine and Metamizole may falsely depress this assay.Serum Triglycerides Reference Interval Normal <150 mg/dL Borderline high 150 - 199 mg/dL High 200 - 499 mg/dL Very High > or = 500 mg/dL Direct bilirubinOrdered By: Nayeli Hidalgo on 07-29-2023 Bilirubin.direct [Mass/Vol] 0.15 mg/dL 0.00-0.30 [facility] Laboratory - Chemistry and C hemistry - challengeOrdered By: Nayeli Hidalgo on 07-29-2023 ALP [Catalytic activity/Vol] 118 U/L 45-117 [facility] ALT [Catalytic activity/Vol] 18 U/L 16-61 [facility] Globulin (S) [Mass/Vol] 3.8 g/dL 2.2-4.[address] [facility] Serum or plasma albumin camilo urement (mass/volume)Ordered By: Nayeli Hidalgo on 07-29-2023 Albumin [Mass/Vol] 3.7 g/dL 3.2-5.0 [facility] Serum or plasma cholesterol in HDL measurement (mass/volume)Ordered By: Nayeli Hidalgo on 07-29-2023 Cholesterol in HDL [Mass/Vol] 48 mg/dL >40 [facility] Comment on above: The drugs N-Acetylcy steine and Metamizole may falsely depress this assay. Reference Range HDL <40 mg/dL Low HDL Cholesterol HDL >or= 60 mg/dL High HDL Cholesterol Serum or plasma cholesterol in VLDL measurement (mass/volume)Ordered By: Nayeli Hidalgo on 07-29-2023 Cholesterol in VLDL [Mass/Vol] 16 mg/dL 5-40 [facility] Serum or plasma low density lipoprotein (LDL) cholesterol measurement (mass/volume)Ordered By: Nayeli Hidalgo on 07-29-2023 Cholesterol in LDL [Mass/Vol] 78 mg/dL 0-130 [facility] Thin prep Papanicolaou smear with manual screeningOrdered By: Nayeli Hidalgo on 07-29-2023 Thin prep Papanicolaou smear with manual screening 11 U/L 15-37 [facility] CTA CHEST (GATED) W IVCONon 10-29-2022 [facility] Absolute lymphocyte countOrd ered By: Dr. West on 10-10-2022 Lymphocytes Auto (Unsp spec) [#/Vol] 1.55 10*3/uL 0.83-4.51 [facility] Basophil percentageOrdered B y: Dr. West on 10-10-2022 Basophils/100 WBC (Bld) 1.0 % 0-1 [facility] Eosinophils/100 WBC (Bld) 5.1 % 0-5 [facility] Neutrophils (Bld) [#/Vol] 5.8 10*3/uL 2.0-7.7 [facility] Neutrophils/100 WBC (Bld) 67.1 % 47-70 [facility] WBC (Bld) [#/Vol] 8.6 10*3/uL 4.4-11.0 [facility] Blood erythrocytes count (nu mber/volume)Ordered By: Dr. West on 10-10-2022 RBC (Bld) [#/Vol] 4.16 10*6/uL 4.6-6.2 [facility] Blood hemoglobin measurement (mass/volume)Ordered By: Dr. West on 10-10-2022 Hemoglobin (Bld) [Mass/Vol] 11.8 g/dL 13.0-16.5 [facility] Blood lymphocytes/100 leukoc ytesOrdered By: Dr. West on 10-10-2022 Lymphocytes/100 WBC (Bld) 18.0 % 19-41 [facility] Blood monocytes/100 leukocyt esOrdered By: Dr. West on 10-10-2022 Monocytes/100 WBC (Bld) 8.6 % 0-10 [facility] Blood platelet mean volumeOr dered By: Dr. West on 10-10-2022 Platelet mean volume (Bld) [Entitic vol] 10.2 fL 6.2-12.0 [facility] Determination of erythrocyte mean corpuscular volume (MCV)Ordered By: Dr. West on 10-10-2022 MCV (RBC) [Entitic vol] 90.4 fL 80-94 [facility] Erythrocyte sedimentation ra teOrdered By: Dr. West on 10-10-2022 ESR (Bld) [Velocity] 44 mm/h 0-20 [facility] Hematocrit Auto (Bld) [Volum e fraction]Ordered By: Dr. West on 10-10-2022 Hematocrit (Bld) [Volume fraction] 37.6 % 40-54 [facility] Laboratory - Hematology and Cell countsOrdered By: Dr. West on 10-10-2022 Erythrocyte distribution width (RBC) [Entitic vol] 49.2 fL 35.1-43.9 [facility] Erythrocyte distribution width (RBC) [Ratio] 14.9 % 11.6-14.6 [facility] Immature granulocytes/100 WBC (Bld) 0.200 % 0.0-0.9 [facility] Comment on above: IG% - Immature Granu locytes (promyelocytes, myelocytes and metamyelocytes) > 1% indicates that a LEFT SHIFT is Present. MCH (RBC) [Entitic mass] 28.4 pg 27.0-32.0 [facility] Nucleated RBC/100 WBC (Bld) [Ratio] 0 % 0-5 [facility] MCHC Auto (RBC) [Mass/Vol]Or dered By: Dr. West on 10-10-2022 MCHC (RBC) [Mass/Vol] 31.4 g/dL 32-36 [facility] Platelets bldOrdered By: Dr. West on 10-10-2022 Platelets (Bld) [#/Vol] 356 10*3/uL 150-450 [facility] Serum or plasma C reactive p rotein measurement (mass/volume)Ordered By: Dr. West on 10-10-2022 CRP [Mass/Vol] 4.56 mg/L 0.0-3.0 [facility] Comment on above: C-Reactive Protein ( CRP) provides useful information for thediagnosis, therapy and monitoring of inflammatory processesand associated diseases. For the evaluation of Relative Riskfor Cardiovascular Disease, a High Sensitivity CRP (HSCRP)should be ordered. Absolute lymphocyte counton 08-16-2022 Lymphocytes Auto (Unsp spec) [#/Vol] 1.29 10*3/uL 0.83-4.51 [facility] Work Phone: Basophil percentageon 2021 Basophils/100 WBC (Bld) 0.8 % 0-1 [facility] Work Phone: Bilirubin [Mass/Vol] 0.30 mg/dL 0.20-1.00 [facility] Work Phone: [phone] Comment on above: For patients on eltr ombopag therapy, use of Dimension [place] TBIL is not recommended. Chloride [Moles/Vol] 106 mmol/L 98-107 [facility] Work Phone: Eosinophils/100 WBC (Bld) 3.7 % 0-5 [facility] Work Phone: [phone] Glucose [Mass/Vol] 105 mg/dL 74-106 [facility] Work Phone: Comment on above: Fasting Glucose resu lt from 100 to 125 mg/dL suggests IMPAIRED HOMEOSTASIS per A.D.A. criteria. Neutrophils (Bld) [#/Vol] 8.6 10*3/uL 2.0-7.7 [facility] Work Phone: Neutrophils/100 WBC (Bld) 76.6 % 47-70 [facility] Work Phone: [phone] Potassium [Moles/Vol] 4.2 mmol/L 3.5-5.1 [facility] Work Phone: [phone] Protein [Mass/Vol] 7.1 g/dL 6.4-8.2 [facility] Work Phone: Sodium [Moles/Vol] 139 mmol/L 136-145 [facility] Work Phone: WBC (Bld) [#/Vol] 11.2 10*3/uL 4.4-11.0 [facility] Work Phone: Blood erythrocytes count (nu mber/volume)on 08-16-2022 RBC (Bld) [#/Vol] 4.30 10*6/uL 4.6-6.2 [facility] Work Phone: Blood hemoglobin measurement (mass/volume)on 08-16-2022 Hemoglobin (Bld) [Mass/Vol] 13.5 g/dL 13.0-16.5 [facility] Work Phone: [phone] Blood lymphocytes/100 leukoc yteson 08-16-2022 Lymphocytes/100 WBC (Bld) 11.5 % 19-41 [facility] Work Phone: [phone] Blood monocytes/100 leukocyt eson 08-16-2022 Monocytes/100 WBC (Bld) 7.0 % 0-10 [facility] Work Phone: Blood platelet mean volumeon 08-16-2022 Platelet mean volume (Bld) [Entitic vol] 9.8 fL 6.2-12.0 [facility] Work Phone: [phone] Determination of erythrocyte mean corpuscular volume (MCV)on 08-16-2022 MCV (RBC) [Entitic vol] 94.2 fL 80-94 [facility] Work Phone: Hematocrit Auto (Bld) [Volum e fraction]on 08-16-2022 Hematocrit (Bld) [Volume fraction] 40.5 % 40-54 [facility] Work Phone: [phone] INR in Blood by Coagulation assayon 08-16-2022 INR Coag (Bld) [Relative time] 1.1 {INR} [facility] Work Phone: Laboratory - Chemistry and C hemistry - challengeon 08-16-2022 ALP [Catalytic activity/Vol] 84 U/L 45-117 [facility] Work Phone: ALT [Catalytic activity/Vol] 26 U/L 16-61 [facility] Work Phone: CO2 [Moles/Vol] 25.0 mmol/L 21.0-32.0 [facility] Work Phone: Globulin (S) [Mass/Vol] 3.5 g/dL 2.2-4.2 [facility] Work Phone: [phone] Urea nitrogen/Creatinine [Mass ratio] 11.5 mg/mg 10-20 [facility] Work Phone: [phone] Laboratory - Coagulationon 0 08-16-2022 aPTT Coag (Bld) [Time] 36.6 s 24.1-36.2 [facility] Work Phone: [phone] PT Coag (PPP) [Time] 13.8 s 11.7-14.9 [facility] Work Phone: [phone] Laboratory - Hematology and Cell countson 08-16-2022 Erythrocyte distribution width (RBC) [Entitic vol] 49.1 fL 35.1-43.9 [facility] Work Phone: [phone] Erythrocyte distribution width (RBC) [Ratio] 14.2 % 11.6-14.6 [facility] Work Phone: [phone] Immature granulocytes/100 WBC (Bld) 0.400 % 0.0-0.9 [facility] Work Phone: [phone] Comment on above: IG% - Immature Granu locytes (promyelocytes, myelocytes and metamyelocytes) > 1% indicates that a LEFT SHIFT is Present. MCH (RBC) [Entitic mass] 31.4 pg 27.0-32.0 [facility] Work Phone: [phone] Nucleated RBC/100 WBC (Bld) [Ratio] 0 % 0-5 [facility] Work Phone: [phone] MCHC Auto (RBC) [Mass/Vol]on 08-16-2022 MCHC (RBC) [Mass/Vol] 33.3 g/dL 32-36 [facility] Work Phone: [phone] Panel Informationon 08-16 Estimated Creatinine Clearance Calc 80.62 ml/min [facility] Work Phone: [phone] Estimated GFR (MDRD) Amer 101 mL/min >60 [facility] Work Phone: [phone] Comment on above: GFR Calc Estimated GFR (MDRD) Non-Af Amer 84 mL/min >60 [facility] Work Phone: Comment on above: Non- GFR Calc Troponin I High Sensitivity 4 pg/mL 3.0-78.0 [facility] Work Phone: Comment on above: Please Note: New Traci t Units and Gender Specific Reference Ranges. For more information see Policy Stat Procedure [place] High Sensitivity Troponin (TNIH) and attachments. Platelets bldon 08-16-2022 Platelets (Bld) [#/Vol] 308 10*3/uL 150-450 [facility] Work Phone: Serum or plasma albumin camilo urement (mass/volume)on 08-16-2022 Albumin [Mass/Vol] 3.6 g/dL 3.2-5.0 [facility] Work Phone: Serum or plasma albumin/glob ulin mass ratioon 08-16-2022 Albumin/Globulin [Mass ratio] 1.0 {ratio} 0.9-2.4 [facility] Work Phone: Serum or plasma calcium camilo urement (mass/volume)on 08-16-2022 Calcium [Mass/Vol] 9.2 mg/dL 8.5-10.1 [facility] Work Phone: Serum or plasma creatinine m easurement (mass/volume)on 08-16-2022 Creatinine [Mass/Vol] 0.96 mg/dL 0.70-1.30 [facility] Work Phone: Comment on above: The validity of the calculated GFR & GFRAA in patients over 70 years has not been determined. Clinical correlation is essential. Serum or plasma urea nitroge n measurement (mass/volume)on 08-16-2022 Urea nitrogen [Mass/Vol] 11 mg/dL 7-18 [facility] Work Phone: Thin prep Papanicolaou smear with manual screeningon 08-16-2022 Thin prep Papanicolaou smear with manual screening 17 U/L 15-37 [facility] Work Phone: [phone] Thin prep Papanicolaou smear with manual screening 8 5-15 [facility] Work Phone: Basophil percentageon 2021 Chloride [Moles/Vol] 101 mmol/L 98-107 [facility] Work Phone: Glucose [Mass/Vol] 108 mg/dL 74-106 [facility] Work Phone: Comment on above: Fasting Glucose resu lt from 100 to 125 mg/dL suggests IMPAIRED HOMEOSTASIS per A.D.A. criteria. Potassium [Moles/Vol] 4.1 mmol/L 3.5-5.1 [facility] Work Phone: Sodium [Moles/Vol] 137 mmol/L 136-145 [facility] Work Phone: Laboratory - Chemistry and C hemistry - challengeon 07-26-2022 CO2 [Moles/Vol] 28.0 mmol/L 21.0-32.0 [facility] Work Phone: [phone] Urea nitrogen/Creatinine [Mass ratio] 15.4 mg/mg 10-20 [facility] Work Phone: No Panel Informationon 07-26 Estimated GFR (MDRD) Amer 92 mL/min >60 [facility] Work Phone: Comment on above: GFR Calc Estimated GFR (MDRD) Non-Af Amer 76 mL/min >60 [facility] Work Phone: Comment on above: Non- GFR Calc Serum or plasma calcium camilo urement (mass/volume)on 07-26-2022 Calcium [Mass/Vol] 9.9 mg/dL 8.5-10.1 [facility] Work Phone: [phone] Serum or plasma creatinine m easurement (mass/volume)on 07-26-2022 Creatinine [Mass/Vol] 1.04 mg/dL 0.70-1.30 [facility] Work Phone: Comment on above: The validity of the calculated GFR & GFRAA in patients over 70 years has not been determined. Clinical correlation is essential. Serum or plasma urea nitroge n measurement (mass/volume)on 07-26-2022 Urea nitrogen [Mass/Vol] 16 mg/dL 7-18 [facility] Work Phone: Thin prep Papanicolaou smear with manual screeningon 07-26-2022 Thin prep Papanicolaou smear with manual screening 8 5-15 [facility] Work Phone: Absolute lymphocyte counton 07-20-2022 Lymphocytes Auto (Unsp spec) [#/Vol] 2.57 10*3/uL 0.83-4.51 [facility] Work Phone: Basophil percentageon 2021 Basophils/100 WBC (Bld) 1.1 % 0-1 [facility] Work Phone: [phone] Bilirubin [Mass/Vol] 0.50 mg/dL 0.20-1.00 [facility] Work Phone: Comment on above: For patients on eltr ombopag therapy, use of Dimension [place] TBIL is not recommended. Chloride [Moles/Vol] 105 mmol/L 98-107 [facility] Work Phone: Cholesterol [Mass/Vol] 146 mg/dL <200 [facility] Work Phone: Comment on above: <200 mg/dL Desirable 200-240 mg/dL Borderline >240 mg/dL High Risk Eosinophils/100 WBC (Bld) 9.5 % 0-5 [facility] Work Phone: Glucose [Mass/Vol] 88 mg/dL 74-106 [facility] Work Phone: Neutrophils (Bld) [#/Vol] 5.4 10*3/uL 2.0-7.7 [facility] Work Phone: Neutrophils/100 WBC (Bld) 55.3 % 47-70 [facility] Work Phone: Potassium [Moles/Vol] 4.2 mmol/L 3.5-5.1 [facility] Work Phone: Protein [Mass/Vol] 7.5 g/dL 6.4-8.2 [facility] Work Phone: [phone] Sodium [Moles/Vol] 138 mmol/L 136-145 [facility] Work Phone: [phone] Triglyceride [Mass/Vol] 129 mg/dL <199 [facility] Work Phone: Comment on above: The drugs N-Acetylcy steine and Metamizole may falsely depress this assay.Serum Triglycerides Reference Interval Normal <150 mg/dL Borderline high 150 - 199 mg/dL High 200 - 499 mg/dL Very High > or = 500 mg/dL WBC (Bld) [#/Vol] 9.8 10*3/uL 4.4-11.0 [facility] Work Phone: [phone] Blood erythrocytes count (nu mber/volume)on 07-20-2022 RBC (Bld) [#/Vol] 4.73 10*6/uL 4.6-6.2 [facility] Work Phone: [phone] Blood hemoglobin measurement (mass/volume)on 07-20-2022 Hemoglobin (Bld) [Mass/Vol] 15.2 g/dL 13.0-16.5 [facility] Work Phone: Blood lymphocytes/100 leukoc yteson 07-20-2022 Lymphocytes/100 WBC (Bld) 26.3 % 19-41 [facility] Work Phone: [phone] Blood monocytes/100 leukocyt eson 07-20-2022 Monocytes/100 WBC (Bld) 7.5 % 0-10 [facility] Work Phone: [phone] Blood platelet mean volumeon 07-20-2022 Platelet mean volume (Bld) [Entitic vol] 9.7 fL 6.2-12.0 [facility] Work Phone: [phone] Determination of erythrocyte mean corpuscular volume (MCV)on 07-20-2022 MCV (RBC) [Entitic vol] 93.2 fL 80-94 [facility] Work Phone: [phone] Direct bilirubinon 2 Bilirubin.direct [Mass/Vol] 0.12 mg/dL 0.00-0.30 [facility] Work Phone: [phone] Hematocrit Auto (Bld) [Volum e fraction]on 07-20-2022 Hematocrit (Bld) [Volume fraction] 44.1 % 40-54 [facility] Work Phone: [phone] Laboratory - Chemistry and C hemistry - challengeon 07-20-2022 ALP [Catalytic activity/Vol] 76 U/L 45-117 [facility] Work Phone: [phone] ALT [Catalytic activity/Vol] 25 U/L 16-61 [facility] Work Phone: [phone] CO2 [Moles/Vol] 24.0 mmol/L 21.0-32.0 [facility] Work Phone: [phone] Globulin (S) [Mass/Vol] 3.7 g/dL 2.2-4.2 [facility] Work Phone: [phone] Magnesium [Mass/Vol] 2.0 mg/dL 1.6-2.6 [facility] Work Phone: [phone] Natriuretic peptide B (Bld) [Mass/Vol] 206.2 pg/mL 0-100 [facility] Work Phone: [phone] Urea nitrogen/Creatinine [Mass ratio] 12.8 mg/mg 10-20 [facility] Work Phone: [phone] Laboratory - Hematology and Cell countson 07-20-2022 Erythrocyte distribution width (RBC) [Entitic vol] 48.6 fL 35.1-43.9 [facility] Work Phone: [phone] Erythrocyte distribution width (RBC) [Ratio] 14.2 % 11.6-14.6 [facility] Work Phone: [phone] Immature granulocytes/100 WBC (Bld) 0.300 % 0.0-0.9 [facility] Work Phone: [phone] Comment on above: IG% - Immature Granu locytes (promyelocytes, myelocytes and metamyelocytes) > 1% indicates that a LEFT SHIFT is Present. MCH (RBC) [Entitic mass] 32.1 pg 27.0-32.0 [facility] Work Phone: Nucleated RBC/100 WBC (Bld) [Ratio] 0 % 0-5 [facility] Work Phone: MCHC Auto (RBC) [Mass/Vol]on 07-20-2022 MCHC (RBC) [Mass/Vol] 34.5 g/dL 32-36 [facility] Work Phone: No Panel Informationon 07-20 Estimated GFR (MDRD) Amer 103 mL/min >60 [facility] Work Phone: Comment on above: GFR Calc Estimated GFR (MDRD) Non-Af Amer 85 mL/min >60 [facility] Work Phone: Comment on above: Non- GFR Calc Thyroid Stimulating Hormone (TSH) 2.18 uIU/mL 0.358-3.74 [facility] Work Phone: Platelets bldon 07-20-2022 Platelets (Bld) [#/Vol] 304 10*3/uL 150-450 [facility] Work Phone: Serum or plasma albumin camilo urement (mass/volume)on 07-20-2022 Albumin [Mass/Vol] 3.8 g/dL 3.2-5.0 [facility] Work Phone: Serum or plasma calcium camilo urement (mass/volume)on 07-20-2022 Calcium [Mass/Vol] 9.5 mg/dL 8.5-10.1 [facility] Work Phone: Serum or plasma cholesterol in HDL measurement (mass/volume)on 07-20-2022 Cholesterol in HDL [Mass/Vol] 45 mg/dL >40 [facility] Work Phone: Comment on above: The drugs N-Acetylcy steine and Metamizole may falsely depress this assay. Reference Range HDL <40 mg/dL Low HDL Cholesterol HDL >or= 60 mg/dL High HDL Cholesterol Serum or plasma cholesterol in VLDL measurement (mass/volume)on 07-20-2022 Cholesterol in VLDL [Mass/Vol] 26 mg/dL 5-40 [facility] Work Phone: Serum or plasma creatinine m easurement (mass/volume)on 07-20-2022 Creatinine [Mass/Vol] 0.94 mg/dL 0.70-1.30 [facility] Work Phone: Comment on above: The validity of the calculated GFR & GFRAA in patients over 70 years has not been determined. Clinical correlation is essential. Serum or plasma low density lipoprotein (LDL) cholesterol measurement (mass/volume)on 07-20-2022 Cholesterol in LDL [Mass/Vol] 75 mg/dL 0-130 [facility] Work Phone: Serum or plasma urea nitroge n measurement (mass/volume)on 07-20-2022 Urea nitrogen [Mass/Vol] 12 mg/dL 7-18 [facility] Work Phone: Thin prep Papanicolaou smear with manual screeningon 07-20-2022 Thin prep Papanicolaou smear with manual screening 18 U/L 15-37 [facility] Work Phone: Thin prep Papanicolaou smear with manual screening 9 5-15 [facility] Work Phone: ANGIO CHESTon 11-16-2020 ANGIO CHEST BART LOPEZ Male [id number] Ordering physician: Rusty Serrano LOC:ER [id number] Attending physician: [id number] DO S: 11/16/20 Acc#: [id number] Exam/Proc: ANGIO CHEST Dept: COMPUTED TOMOGRAPHY CT [...] by: Dalton Smiley MD 11/16/2020 10:58 AM JANITOR CARETAKER REPORT SIGNATURE ON FILE Electronically Signed Date/Time: 11/16/20 1058 Dictated Date/time: 11/16/20 1058 CC: Normal [facility] CBC with AUTO DIFFon 020 BAS0 % 1.10 % Normal 0-2 [facility] Comment on above: Performed By: #### C BC #### [facility] [address] [place] [address] Basophils (Bld) [#/Vol] 0.1 10*3/uL Normal 0-0.1 [facility] Comment on above: Performed By: #### C BC #### [facility] [address] [place] [address] Eosinophils (Bld) [#/Vol] 0.2 10*3/uL Normal 0.0-1.80 [facility] Comment on above: Performed By: #### C BC #### [facility] [address] [place] [address] Eosinophils/100 WBC (Bld) 1.5 % Normal 0-8 [facility] Comment on above: Performed By: #### C BC #### [facility] [address] [place] [address] GRAN # 8.4 K/uL Normal 2.2-9.1 [facility] Comment on above: Performed By: #### C BC #### [facility] [address] [place] [address] GRAN % 75.6 % Normal 42-80 [facility] Comment on above: Performed By: #### C BC #### [facility] [address] [place] [address] Hematocrit (Bld) [Volume fraction] 38.3 % Low 41.0-53.0 [facility] Comment on above: Performed By: #### C BC #### [address] [place] [address] Hemoglobin (Bld) [Mass/Vol] 13.2 g/dL Low 14.0-18.0 [facility] Comment on above: Performed By: #### C BC #### [address] [place] [address] Lymphocytes (Bld) [#/Vol] 1.4 10*3/uL Normal 1.0-4.0 [facility] Comment on above: Performed By: #### C BC #### [address] [place] [address] Lymphocytes/100 WBC (Bld) 12.2 % Low 16-48 [facility] Comment on above: Performed By: #### C BC #### [facility] [address] [place] [address] MCH (RBC) [Entitic mass] 34.4 g/dL Normal 31.0-36.0 [facility] Comment on above: Performed By: #### C BC #### [facility] [address] [place] [address] MCV (RBC) [Entitic vol] 92.4 fL Normal 80-97 [facility] Comment on above: Performed By: #### C BC #### [address] [place] [address] MEAN CORPUSCULAR HGB 31.8 pg Normal 26.0-32.0 [facility] Comment on above: Performed By: #### C BC #### [facility] [address] [place] [address] Monocytes (Bld) [#/Vol] 1.1 10*3/uL Normal 0.1-1.7 [facility] Comment on above: Performed By: #### C BC #### [facility] [address] [place] [address] Monocytes/100 WBC (Bld) 9.6 % High 3-9 [facility] Comment on above: Performed By: #### C BC #### [facility] [address] [place] [address] Platelet mean volume (Bld) [Entitic vol] 7.5 fL Normal 6.4-10.5 [facility] Comment on above: Performed By: #### C BC #### [address] [place] [address] Platelets (Bld) [#/Vol] 300 10*3/uL Normal 140-450 [facility] Comment on above: Performed By: #### C BC #### [facility] [address] [place] [address] RBC (Bld) [#/Vol] 4.15 10*6/uL Low 4.40-6.30 [facility] Comment on above: Performed By: #### C BC #### [facility] [address] [place] [address] RED CELL DISTRI WIDTH 15.6 % High 11.0-15.5 [facility] Comment on above: Performed By: #### C BC #### [facility] [address] [place] [address] WBC (Bld) [#/Vol] 11.2 10*3/uL High 4.0-11.0 [facility] Comment on above: Performed By: #### C BC #### [facility] [address] [place] [address] COMPREHENSIVE METABOLIC PANE Oskar 11-16-2020 Albumin [Mass/Vol] 3.6 g/dL Normal 3.4-5.0 [facility] Comment on above: Performed By: #### M N, TRO #### [facility] [address] [place] [address] Albumin/Globulin [Mass ratio] 0.9 {ratio} Low 1.1-1.8 [facility] Comment on above: Performed By: #### M N, TRO #### [facility] [address] [place] [address] ALP [Catalytic activity/Vol] 95 U/L Normal 45-117 [facility] Comment on above: Performed By: #### M N, TRO #### [facility] [address] [place] [address] ALT [Catalytic activity/Vol] 31 U/L Normal 12-78 [facility] Comment on above: Performed By: #### M N, TRO #### [facility] [address] [place] [address] Anion gap [Moles/Vol] 12.0 mmol/L Normal 11-23 [facility] Comment on above: Performed By: #### M N, TRO #### [facility] [address] [place] [address] Bilirubin [Mass/Vol] 0.8 mg/dL Normal 0.2-1.0 [facility] Comment on above: Performed By: #### M N, TRO #### [facility] [address] [place] [address] Calcium [Mass/Vol] 9.4 mg/dL Normal 8.5-10.1 [facility] Comment on above: Performed By: #### M N, TRO #### [facility] [address] [place] [address] Chloride [Moles/Vol] 103 mmol/L Normal 98-107 [facility] Comment on above: Performed By: #### M N, TRO #### [facility] [address] [place] [address] CO2 [Moles/Vol] 22.0 mmol/L Normal 21-32 [facility] Comment on above: Performed By: #### M N, TRO #### [facility] [address] [place] [address] Creatinine [Mass/Vol] 1.10 mg/dL Normal 0.7-1.3 [facility] Comment on above: Performed By: #### M N, TRO #### [facility] [address] [place] [address] GFR AM > 60.0 [facility] Comment on above: Result Comment: THE NORMAL LEVEL OF GFR VARIES ACCORDING TO AGE, SEX, AND BODY SIZE. A GFR LEVEL OF LESS THAN 60 ML/MIN REPRESENTS LOSS OF THE ADULT LEVEL OF NORMAL KIDNEY FUNCTION. Performed By: #### M N, TRO #### [address] [place] [address] GFR/1.73 sq M.predicted MDRD (S/P/Bld) [Vol rate/Area] mL/min/{1.73_m2} Normal [facility] Comment on above: Performed By: #### M N, TRO #### [address] [place] [address] Globulin (S) [Mass/Vol] 4.1 g/dL Normal 2.5-4.6 [facility] Comment on above: Performed By: #### M N, TRO #### [address] [place] [address] Glucose [Mass/Vol] 138 mg/dL High 70-100 [facility] Comment on above: Performed By: #### M N, TRO #### [address] [place] [address] Potassium [Moles/Vol] 4.7 mmol/L Normal 3.5-5.1 [facility] Comment on above: Performed By: #### M N, TRO #### [address] [place] [address] Protein [Mass/Vol] 7.7 g/dL Normal 6.0-8.3 [facility] Comment on above: Performed By: #### M N, TRO #### [address] [place] [address] SGOT/AST 20 U/L Normal 15-37 [facility] Comment on above: Performed By: #### M N, TRO #### [address] [place] [address] Sodium [Moles/Vol] 132 mmol/L Low 136-145 [facility] Comment on above: Performed By: #### M N, TRO #### [address] [place] [address] Urea nitrogen [Mass/Vol] 13.0 mg/dL Normal 7-18 [facility] Comment on above: Performed By: #### M N, TRO #### [address] [place] [address] D-DIMERon 11-16-2020 D-DIMER 1.60 mg/L FEU High 0.0-0.59 [facility] Comment on above: Result Comment: [...] therapy. Performed By: #### D AWILDA #### [address] [address] ED.PDOCon 11-16-2020 ED.PDOC BART LOPEZ Male [id number] Attending provider: LEXX GRAHAM [id number] Rusty Serrano [id number] DOS: 11/16/20 Hx/Exam [...] have a CABG in February [address] [facility] and wanted to come in for [...] by: Dalton Smiley MD 11/16/2020 10:58 AM JANITOR CARETAKER - 3317; I d/ wpt all imaging results. HEART score is 3. Repeat troponin negative as well. Pt notes he has his appointment with his Arm Maker already scheduled Saturday. Discussed with patient, comfortable with plan, close follow up and return precautions. This note is completed with assistance of the [employer] dictation program. While every attempt has been [...] closely with your primary care doctor and Arm Maker. If the symptoms worsen or new symptoms [...] 1028 Electronically Signed Date/Time: 11/17/20 2246 Normal [facility] TROPONINon 11-16-2020 Troponin I.cardiac [Mass/Vol] ng/mL Normal 0-0.045 [facility] Comment on above: Result Comment: Trop onin Reference Range 0.0 - 0.045 ng/ml Negative 0.046 - 0.1 ng/ml Intermediate Risk 0.11 - 0.59 ng/ml High Risk Greater than or equal to 0.6 ng/ml - Indicative of Myocardial Damage Performed By: #### T RO #### [facility] [address] [place] [address] Troponin I.cardiac [Mass/Vol] ng/mL Normal 0-0.045 [facility] Comment on above: Result Comment: Trop onin Reference Range 0.0 - 0.045 ng/ml Negative 0.046 - 0.1 ng/ml Intermediate Risk 0.11 - 0.59 ng/ml High Risk Greater than or equal to 0.6 ng/ml - Indicative of Myocardial Damage Performed By: #### M N, TRO #### [address] [address] Glucose Meteron 03-14-2020 Glucose [Mass/Vol] 116 mg/dL High 70-99 [facility] Comment on above: Result Comment: ELIEZER Omer OTIFIED Performed By: #### G ALISSA #### [place] [address] Comprehensive Metabolic Pane oskar 03-13-2020 Albumin [Mass/Vol] 3.2 g/dL Low 3.9-4.9 [facility] Comment on above: Performed By: #### A SABAS #### [place] [address] ALP [Catalytic activity/Vol] 57 U/L Normal 38-113 [facility] Comment on above: Performed By: #### A SABAS #### [place] [address] ALT [Catalytic activity/Vol] 18 U/L Normal 10-54 [facility] Comment on above: Performed By: #### A SABAS #### [place] [address] Anion gap [Moles/Vol] 10 mmol/L Normal 9-18 [facility] Comment on above: Performed By: #### A SABAS #### [facility] [address] [place], [place] [address] AST [Catalytic activity/Vol] 22 U/L Normal 14-40 [facility] Comment on above: Performed By: #### A SABAS #### [facility] [address] [place], [place] [address] Bilirubin [Mass/Vol] 0.3 mg/dL Normal 0.2-1.3 [facility] Comment on above: Performed By: #### A SABAS #### [facility] [address] [place], [place] [address] Calcium [Mass/Vol] 8.8 mg/dL Normal 8.5-10.2 [facility] Comment on above: Performed By: #### A SABAS #### [facility] [address] [place], [place] [address] Chloride [Moles/Vol] 96 mmol/L Low 97-105 [facility] Comment on above: Performed By: #### A SABAS #### [facility] [address] [place], [place] [address] CO2 Blood 26 mmol/L Normal 22-30 [facility] Comment on above: Performed By: #### A SABAS #### [facility] [address] [place], [place] [address] Creatinine [Mass/Vol] 0.77 mg/dL Normal 0.73-1.22 [facility] Comment on above: Performed By: #### A SABAS #### [facility] [address] [place], [place] [address] Glucose [Mass/Vol] 127 mg/dL High 74-99 [facility] Comment on above: Result Comment: The [place] [employer] (ADA) provides guidance for cutoff [...] Standards of Medical Care in Diabetes 2016; [place] [employer]. Diabetes Care. 2016;39(Suppl 1). Performed By: #### A SABAS #### [facility] [address] [place], [place] [address] Potassium [Moles/Vol] 4.1 mmol/L Normal 3.7-5.1 [facility] Comment on above: Performed By: #### A SABAS #### [facility] [address] [place], [place] [address] Protein [Mass/Vol] 5.9 g/dL Low 6.3-8.0 [facility] Comment on above: Performed By: #### A SABAS #### [address] [address] Sodium [Moles/Vol] 132 mmol/L Low 136-144 [facility] Comment on above: Performed By: #### A SABAS #### [facility] [address] [place], [place] [address] Urea nitrogen [Mass/Vol] 17 mg/dL Normal 9-24 [facility] Comment on above: Performed By: #### A SABAS #### [facility] [address] [place], [place] [address] MDRD GFRon 03-13-2020 GFR/1.73 sq M predicted among non-blacks MDRD (S/P/Bld) [Vol rate/Area] mL/min/{1.73_m2} Normal >60mL/min/1. 73m2 [facility] Comment on above: Result Comment: If t he patient is , multiply the result by 1.210. Performed By: #### T &S #### [facility] [address] [place], [place] [address] XR CHEST 2V FRONTAL/LATon XR CHEST 2V FRONTAL/LAT * * *Final Repor t* * * DATE OF EXAM: Mar 13 [...] compared to prior, consider edema. Differential infection Marklogic Developer: SILVESTRE Transcribe Date/Time: Mar 13 2020 8:47A Dictated by : CHRIS MOON MD This examination was interpreted and the report reviewed and electronically signed by: CHRIS MOON MD on Mar 13 2020 8:49AM EST Normal [facility] Basic Metabolic Panelon 04-2 Anion gap [Moles/Vol] 11 mmol/L Normal 9-18 [facility] Comment on above: Performed By: #### A SABAS #### [place] [address] Calcium [Mass/Vol] 9.0 mg/dL Normal 8.5-10.2 [facility] Comment on above: Performed By: #### A SABAS #### [facility] [address] [place], [place] [address] Chloride [Moles/Vol] 96 mmol/L Low 97-105 [facility] Comment on above: Performed By: #### A SABAS #### [facility] [address] [place], [place] [address] CO2 Blood 28 mmol/L Normal 22-30 [facility] Comment on above: Performed By: #### A SABAS #### [facility] [address] [place], [place] [address] Creatinine [Mass/Vol] 0.78 mg/dL Normal 0.73-1.22 [facility] Comment on above: Performed By: #### A SABAS #### [facility] [address] [place], [place] [address] Glucose [Mass/Vol] 107 mg/dL High 74-99 [facility] Comment on above: Result Comment: The [place] [employer] (ADA) provides guidance for cutoff [...] Standards of Medical Care in Diabetes 2016; [place] [employer]. Diabetes Care. 2016;39(Suppl 1). Performed By: #### A SABAS #### [address] [address] Potassium [Moles/Vol] 3.8 mmol/L Normal 3.7-5.1 [facility] Comment on above: Performed By: #### A SABAS #### [address] [address] Sodium [Moles/Vol] 135 mmol/L Low 136-144 [facility] Comment on above: Performed By: #### A SABAS #### [address] [address] Urea nitrogen [Mass/Vol] 18 mg/dL Normal 9-24 [facility] Comment on above: Performed By: #### A SABAS #### [address] [address] Hemogramon 03-12-2020 Erythrocyte distribution width (RBC) [Ratio] 14.2 % Normal 11.6-14.4 [facility] Comment on above: Performed By: #### M RSA #### [address] [address] Hematocrit (Bld) [Volume fraction] 28.1 % Low 40.1-51.0 [facility] Comment on above: Performed By: #### M RSA #### [facility] [address] [place] [address] Hemoglobin (Bld) [Mass/Vol] 9.8 g/dL Low 13.7-17.5 [facility] Comment on above: Performed By: #### M RSA #### [facility] [address] [place] [address] MCH (RBC) [Entitic mass] 32.3 pg High 25.7-32.2 [facility] Comment on above: Performed By: #### M RSA #### [facility] [address] [place] [address] MCHC (RBC) [Mass/Vol] 34.9 % Normal 32.3-36.5 [facility] Comment on above: Performed By: #### M RSA #### [facility] [address] [place] [address] MCV (RBC) [Entitic vol] 92.7 fL Normal 83.2-95.6 [facility] Comment on above: Performed By: #### M RSA #### [facility] [address] [place] [address] Nucleated RBC (Bld) [#/Vol] 0.03 thou/cmm High 0.00-0.01 [facility] Comment on above: Performed By: #### M RSA #### [facility] [address] [place] [id number] Nucleated RBC/100 WBC (Bld) [Ratio] 0.3 % High 0.0-0.2 [facility] Comment on above: Performed By: #### M RSA #### [facility] [address] [place] [address] Platelet mean volume (Bld) [Entitic vol] 10.3 fL Normal 8.7-12.0 [facility] Comment on above: Performed By: #### M RSA #### [facility] [address] [place], [place] [address] Platelets (Bld) [#/Vol] 255 thou/cmm Normal 141-365 [facility] Comment on above: Performed By: #### M RSA #### [facility] [address] [place], [place] [address] RBC (Bld) [#/Vol] 3.03 mil/cmm Low 4.63-6.08 [facility] Comment on above: Performed By: #### M RSA #### [facility] [address] [place], [place] [address] RDW SD 47.3 fl High 36.1-45.8 [facility] Comment on above: Performed By: #### M RSA #### [facility] [address] [place], [place] [address] WBC (Bld) [#/Vol] 9.46 thou/cmm High 4.23-9.07 [facility] Comment on above: Performed By: #### M RSA #### [facility] [address] [place], [place] [address] XR CHEST 1V FRONTALon 2019 XR CHEST [...] which may represent CHF. Bibasilar subsegmental atelectasis. [employer] Developer: PSCB Transcribe Date/Time: Mar 12 2020 7:54A Dictated by : FAZAL CROCKER MD This examination was interpreted and the report reviewed and electronically signed by: FAZAL CROCKER MD on Mar 12 2020 7:55AM EST Normal [facility] Basic Metabolic Panelon 04- Anion gap [Moles/Vol] 11 mmol/L Normal 9-18 [facility] Comment on above: Performed By: #### M RSA #### [facility] [address] [place], [place] [address] Calcium [Mass/Vol] 8.8 mg/dL Normal 8.5-10.2 [facility] Comment on above: Performed By: #### M RSA #### [facility] [address] [place], [place] [address] Chloride [Moles/Vol] 92 mmol/L Low 97-105 [facility] Comment on above: Performed By: #### M RSA #### [facility] [address] [place], [place] [address] CO2 Blood 27 mmol/L Normal 22-30 [facility] Comment on above: Performed By: #### M RSA #### [facility] [address] [place], [place] [address] Creatinine [Mass/Vol] 0.71 mg/dL Low 0.73-1.22 [facility] Comment on above: Performed By: #### M RSA #### [facility] [address] [place], [place] [address] Glucose [Mass/Vol] 122 mg/dL High 74-99 [facility] Comment on above: Result Comment: The [place] [employer] (ADA) provides guidance for cutoff [...] Standards of Medical Care in Diabetes 2016; [place] [employer]. Diabetes Care. 2016;39(Suppl 1). Performed By: #### M RSA #### [facility] [address] [place], [place] [address] Potassium [Moles/Vol] 4.3 mmol/L Normal 3.7-5.1 [facility] Comment on above: Performed By: #### M RSA #### [facility] [address] [place] [address] Sodium [Moles/Vol] 130 mmol/L Low 136-144 [facility] Comment on above: Performed By: #### M RSA #### [facility] [address] [place] [address] Urea nitrogen [Mass/Vol] 14 mg/dL Normal 9-24 [facility] Comment on above: Performed By: #### M RSA #### [facility] [address] [place] [address] Hemogramon 03-11-2020 Erythrocyte distribution width (RBC) [Ratio] 14.0 % Normal 11.6-14.4 [facility] Comment on above: Performed By: #### M RSA #### [place] [address] Hematocrit (Bld) [Volume fraction] 28.9 % Low 40.1-51.0 [facility] Comment on above: Performed By: #### M RSA #### [place] [address] Hemoglobin (Bld) [Mass/Vol] 10.0 g/dL Low 13.7-17.5 [facility] Comment on above: Performed By: #### M RSA #### [place] [address] MCH (RBC) [Entitic mass] 31.4 pg Normal 25.7-32.2 [facility] Comment on above: Performed By: #### M RSA #### [place] [address] MCHC (RBC) [Mass/Vol] 34.6 % Normal 32.3-36.5 [facility] Comment on above: Performed By: #### M RSA #### [place] [address] MCV (RBC) [Entitic vol] 90.9 fL Normal 83.2-95.6 [facility] Comment on above: Performed By: #### M RSA #### [place] [address] Platelet mean volume (Bld) [Entitic vol] 10.2 fL Normal 8.7-12.0 [facility] Comment on above: Performed By: #### M RSA #### [facility] [address] [place] [address] Platelets (Bld) [#/Vol] 236 thou/cmm Normal 141-365 [facility] Comment on above: Performed By: #### M RSA #### [facility] [address] [place] [address] RBC (Bld) [#/Vol] 3.18 mil/cmm Low 4.63-6.08 [facility] Comment on above: Performed By: #### M RSA #### [facility] [address] [place] [address] RDW SD 45.4 fl Normal 36.1-45.8 [facility] Comment on above: Performed By: #### M RSA #### [facility] [address] [place] [id number] WBC (Bld) [#/Vol] 13.35 thou/cmm High 4.23-9.07 [facility] Comment on above: Performed By: #### M RSA #### [facility] [address] [place] [address] XR CHEST 1V FRONTALon 2019 XR CHEST [...] definite pneumothorax. Bilateral interstitial opacities suggesting edema. [employer] Developer: SILVESTRE Transcribe Date/Time: Mar 11 2020 7:00A Dictated by : RICO PENNINGTON MD This examination was interpreted and the report reviewed and electronically signed by: RICO PENNINGTON MD on Mar 11 2020 7:04AM EST Normal [facility] Basic Metabolic Panelon 02-17 Anion gap [Moles/Vol] 12 mmol/L Normal 9-18 [facility] Comment on above: Performed By: #### M RSA #### [facility] [address] [place], [place] [address] Calcium [Mass/Vol] 8.7 mg/dL Normal 8.5-10.2 [facility] Comment on above: Performed By: #### M RSA #### [facility] [address] [place], [place] [address] Chloride [Moles/Vol] 91 mmol/L Low 97-105 [facility] Comment on above: Performed By: #### M RSA #### [facility] [address] [place], [place] [address] CO2 Blood 24 mmol/L Normal 22-30 [facility] Comment on above: Performed By: #### M RSA #### [facility] [address] [place], [place] [address] Creatinine [Mass/Vol] 0.87 mg/dL Normal 0.73-1.22 [facility] Comment on above: Performed By: #### M RSA #### [facility] [address] [place], [place] [address] Glucose [Mass/Vol] 166 mg/dL High 74-99 [facility] Comment on above: Result Comment: The [place] [employer] (ADA) provides guidance for cutoff [...] Standards of Medical Care in Diabetes 2016; [place] [employer]. Diabetes Care. 2016;39(Suppl 1). Performed By: #### M RSA #### [facility] [address] [place], [place] [address] Potassium [Moles/Vol] 4.7 mmol/L Normal 3.7-5.1 [facility] Comment on above: Performed By: #### M RSA #### [facility] [address] [place] [address] Sodium [Moles/Vol] 127 mmol/L Low 136-144 [facility] Comment on above: Performed By: #### M RSA #### [place] [address] Urea nitrogen [Mass/Vol] 16 mg/dL Normal 9-24 [facility] Comment on above: Performed By: #### M RSA #### [facility] [address] [place] [address] Hemogramon 03-10-2020 Erythrocyte distribution width (RBC) [Ratio] 14.4 % Normal 11.6-14.4 [facility] Comment on above: Performed By: #### M RSA #### [place] [address] Hematocrit (Bld) [Volume fraction] 31.1 % Low 40.1-51.0 [facility] Comment on above: Performed By: #### M RSA #### [facility] [address] [place] [address] Hemoglobin (Bld) [Mass/Vol] 10.9 g/dL Low 13.7-17.5 [facility] Comment on above: Performed By: #### M RSA #### [facility] [address] [place], [place] [address] MCH (RBC) [Entitic mass] 32.2 pg Normal 25.7-32.2 [facility] Comment on above: Performed By: #### M RSA #### [address] [address] MCHC (RBC) [Mass/Vol] 35.0 % Normal 32.3-36.5 [facility] Comment on above: Performed By: #### M RSA #### [facility] [address] [place] [address] MCV (RBC) [Entitic vol] 92.0 fL Normal 83.2-95.6 [facility] Comment on above: Performed By: #### M RSA #### [facility] [address] [place] [address] Platelet mean volume (Bld) [Entitic vol] 10.1 fL Normal 8.7-12.0 [facility] Comment on above: Performed By: #### M RSA #### [place] [address] Platelets (Bld) [#/Vol] 242 thou/cmm Normal 141-365 [facility] Comment on above: Performed By: #### M RSA #### [facility] [address] [place] [address] RBC (Bld) [#/Vol] 3.38 mil/cmm Low 4.63-6.08 [facility] Comment on above: Performed By: #### M RSA #### [place] [address] RDW SD 47.8 fl High 36.1-45.8 [facility] Comment on above: Performed By: #### M RSA #### [facility] [address] [place] [address] WBC (Bld) [#/Vol] 16.21 thou/cmm High 4.23-9.07 [facility] Comment on above: Performed By: #### M RSA #### [facility] [address] [place] [address] Magnesium Bloodon 03-10-2020 Magnesium [Mass/Vol] 1.9 mg/dL Normal 1.7-2.3 [facility] Comment on above: Performed By: #### M RSA #### [place] [address] XR CHEST 1V FRONTALon 2019 XR CHEST [...] Persistent bilateral interstitial opacities suggesting mild edema. [employer] Developer: PSCB Transcribe Date/Time: Mar 10 2020 7:30A Dictated by : RICO PENNINGTON MD This examination was interpreted and the report reviewed and electronically signed by: RICO PENNINGTON MD on Mar 10 2020 7:37AM EST Normal [facility] Basic Metabolic Panelon 02-17 Anion gap [Moles/Vol] 12 mmol/L Normal 9-18 [facility] Comment on above: Performed By: #### T &S #### [address] [address] Calcium [Mass/Vol] 8.7 mg/dL Normal 8.5-10.2 [facility] Comment on above: Performed By: #### T &S #### [facility] [address] [place], [place] [address] Chloride [Moles/Vol] 102 mmol/L Normal 97-105 [facility] Comment on above: Performed By: #### T &S #### [facility] [address] [place], [place] [address] CO2 Blood 21 mmol/L Low 22-30 [facility] Comment on above: Performed By: #### T &S #### [facility] [address] [place], [place] [address] Creatinine [Mass/Vol] 0.90 mg/dL Normal 0.73-1.22 [facility] Comment on above: Performed By: #### T &S #### [facility] [address] [place], [place] [address] Glucose [Mass/Vol] 131 mg/dL High 74-99 [facility] Comment on above: Result Comment: The [place] [employer] (ADA) provides guidance for cutoff [...] Standards of Medical Care in Diabetes 2016; [place] [employer]. Diabetes Care. 2016;39(Suppl 1). Performed By: #### T &S #### [facility] [address] [place], [place] [address] Potassium [Moles/Vol] 4.8 mmol/L Normal 3.7-5.1 [facility] Comment on above: Performed By: #### T &S #### [facility] [address] [place], [place] [address] Sodium [Moles/Vol] 135 mmol/L Low 136-144 [facility] Comment on above: Performed By: #### T &S #### [facility] [address] [place], [place] [address] Urea nitrogen [Mass/Vol] 17 mg/dL Normal 9-24 [facility] Comment on above: Performed By: #### T &S #### [facility] [address] [place], [place] [address] Blood Gas Arterialon 03-09- 020 Base Excess -3.0 mmol/L Normal -3.0-3.0 [facility] Comment on above: Performed By: #### M RSA #### [facility] [address] [place], [place] [address] FIO2 44 % Normal [facility] Comment on above: Performed By: #### M RSA #### [facility] [address] [place] [address] HCO3 (Bld) [Moles/Vol] 22.3 mmol/L Normal 21.0-28.0 [facility] Comment on above: Performed By: #### M RSA #### [facility] [address] [place] [address] O2% Sat Arterial 91.8 % Low 96.0-100.0 [facility] Comment on above: Performed By: #### M RSA #### [facility] [address] [place] [address] PCO2 Arterial 41.1 mm Hg Normal 35.0-45.0 [facility] Comment on above: Performed By: #### M RSA #### [facility] [address] [place] [address] pH Arterial 7.347 Low 7.350-7.450 [facility] Comment on above: Performed By: #### M RSA #### [facility] [address] [place] [address] PO2 Arterial 62.6 mm Hg Low 83.0-108.0 [facility] Comment on above: Performed By: #### M RSA #### [place] [address] Hemogramon 03-09-2020 Erythrocyte distribution width (RBC) [Ratio] 13.7 % Normal 11.6-14.4 [facility] Comment on above: Performed By: #### T &S #### [facility] [address] [place] [address] Hematocrit (Bld) [Volume fraction] 33.7 % Low 40.1-51.0 [facility] Comment on above: Performed By: #### T &S #### [place] [address] Hemoglobin (Bld) [Mass/Vol] 11.6 g/dL Low 13.7-17.5 [facility] Comment on above: Performed By: #### T &S #### [facility] [address] [place] [address] MCH (RBC) [Entitic mass] 32.2 pg Normal 25.7-32.2 [facility] Comment on above: Performed By: #### T &S #### [facility] [address] [place] [address] MCHC (RBC) [Mass/Vol] 34.4 % Normal 32.3-36.5 [facility] Comment on above: Performed By: #### T &S #### [facility] [address] [place] [address] MCV (RBC) [Entitic vol] 93.6 fL Normal 83.2-95.6 [facility] Comment on above: Performed By: #### T &S #### [facility] [address] [place] [address] Platelet mean volume (Bld) [Entitic vol] 10.2 fL Normal 8.7-12.0 [facility] Comment on above: Performed By: #### T &S #### [facility] [address] [place] [address] Platelets (Bld) [#/Vol] 230 thou/cmm Normal 141-365 [facility] Comment on above: Performed By: #### T &S #### [facility] [address] [place] [address] RBC (Bld) [#/Vol] 3.60 mil/cmm Low 4.63-6.08 [facility] Comment on above: Performed By: #### T &S #### [facility] [address] [place] [address] RDW SD 46.4 fl High 36.1-45.8 [facility] Comment on above: Performed By: #### T &S #### [facility] [address] [place] [address] WBC (Bld) [#/Vol] 13.18 thou/cmm High 4.23-9.07 [facility] Comment on above: Performed By: #### T &S #### [facility] [address] [place], [place] [address] Magnesium Bloodon 03-09-2020 Magnesium [Mass/Vol] 1.9 mg/dL Normal 1.7-2.3 [facility] Comment on above: Performed By: #### T &S #### [facility] [address] [place], [place] [address] XR CHEST 1V FRONTALon 2019 XR CHEST [...] 2. Findings again noted suggesting mild edema. [employer] Developer: PSCB Transcribe Date/Time: Mar 09 2020 7:19A Dictated by : NADYA SIMS MD This examination was interpreted and the report reviewed and electronically signed by: NADYA SIMS MD on Mar 09 2020 7:22AM EST Normal [facility] ABO/Rh Confirmationon 2019 ABO group Nom (Bld) A Normal [facility] Comment on above: Performed By: #### A SABAS #### [facility] [address] [place] [address] RH Type Positive Normal [facility] Comment on above: Performed By: #### A SABAS #### [facility] [address] [place] [address] ACT Arterial Panel (i-STAT)o n 03-08-2020 Kaolin ACT ( i-STAT) 131 sec Normal 74-137 [facility] Comment on above: Performed By: #### A CTIA #### [facility] [address] [place], [place] [address] Activated PTTon 03-08-2020 aPTT Coag (Bld) [Time] 27.2 s Normal 23.0-32.4 [facility] Comment on above: Result Comment: Unfr actionated [...] laboratory APTT reagent in use throughout the [facility]. Performed By: #### T &S #### [facility] [address] [place], [place] [address] Basic Metabolic Panelon 02-17 Anion gap [Moles/Vol] 10 mmol/L Normal 9-18 [facility] Comment on above: Performed By: #### T &S #### [facility] [address] [place], [place] [address] Calcium [Mass/Vol] 8.3 mg/dL Low 8.5-10.2 [facility] Comment on above: Performed By: #### T &S #### [facility] [address] [place], [place] [address] Chloride [Moles/Vol] 102 mmol/L Normal 97-105 [facility] Comment on above: Performed By: #### T &S #### [facility] [address] [place], [place] [address] CO2 Blood 23 mmol/L Normal 22-30 [facility] Comment on above: Performed By: #### T &S #### [address] [address] Creatinine [Mass/Vol] 0.96 mg/dL Normal 0.73-1.22 [facility] Comment on above: Performed By: #### T &S #### [facility] [address] [place], [place] [address] Glucose [Mass/Vol] 174 mg/dL High 74-99 [facility] Comment on above: Result Comment: The [place] [employer] (ADA) provides guidance for cutoff [...] Standards of Medical Care in Diabetes 2016; [place] [employer]. Diabetes Care. 2016;39(Suppl 1). Performed By: #### T &S #### [facility] [address] [place], [place] [address] Potassium [Moles/Vol] 4.5 mmol/L Normal 3.7-5.1 [facility] Comment on above: Performed By: #### T &S #### [facility] [address] [place], [place] [address] Sodium [Moles/Vol] 135 mmol/L Low 136-144 [facility] Comment on above: Performed By: #### T &S #### [facility] [address] [place], [place] [address] Urea nitrogen [Mass/Vol] 13 mg/dL Normal 9-24 [facility] Comment on above: Performed By: #### T &S #### [facility] [address] [place], [place] [address] Blood Gas Arterialon 020 FIO2 40 % Normal [facility] Comment on above: Performed By: #### T &S #### [facility] [address] [place], [place] [address] Base Excess -5.6 mmol/L Low -3.0-3.0 [facility] Comment on above: Performed By: #### T &S #### [facility] [address] [place], [place] [address] HCO3 (Bld) [Moles/Vol] 20.7 mmol/L Low 21.0-28.0 [facility] Comment on above: Performed By: #### T &S #### [facility] [address] [place], [place] [address] O2% Sat Arterial 93.9 % Low 96.0-100.0 [facility] Comment on above: Performed By: #### T &S #### [facility] [address] [place], [place] [address] PCO2 Arterial 43.9 mm Hg Normal 35.0-45.0 [facility] Comment on above: Performed By: #### T &S #### [facility] [address] [place], [place] [address] pH Arterial 7.288 Low 7.350-7.450 [facility] Comment on above: Performed By: #### T &S #### [facility] [address] [place], [place] [address] PO2 Arterial 73.2 mm Hg Low 83.0-108.0 [facility] Comment on above: Performed By: #### T &S #### [facility] [address] [place], [place] [address] FIO2 50 % Normal [facility] Comment on above: Performed By: #### A BG #### [facility] [address] [place], [place] [address] Base Excess -6.0 mmol/L Low -3.0-3.0 [facility] Comment on above: Performed By: #### A BG #### [facility] [address] [place], [place] [address] HCO3 (Bld) [Moles/Vol] 23.0 mmol/L Normal 21.0-28.0 [facility] Comment on above: Performed By: #### A BG #### [facility] [address] [place], [place] [address] O2% Sat Arterial 94.0 % Low 96.0-100.0 [facility] Comment on above: Performed By: #### A BG #### [facility] [address] [place] [address] PCO2 Arterial 62.7 mm Hg High 35.0-45.0 [facility] Comment on above: Performed By: #### A BG #### [facility] [address] [place] [address] pH Arterial 7.183 Critically low 7.350-7.450 [facility] Comment on above: Performed By: #### A BG #### [facility] [address] [place] [address] PO2 Arterial 84.6 mm Hg Normal 83.0-108.0 [facility] Comment on above: Performed By: #### A BG #### [facility] [address] [place] [address] CG8 Arterial Panel (i-STAT)o n 03-08-2020 Base Excess (i-STAT) -1.0 mmol/L Normal -2.0 to 3.0 [facility] Comment on above: Performed By: #### Kaya G8IA #### [facility] [address] [place] [address] Glucose [Mass/Vol] 220 mg/dL High 70-99 [facility] Comment on above: Performed By: #### Kaya G8IA #### [facility] [address] [place] [address] HCO3 (Bld) [Moles/Vol] 24.4 mmol/L Normal 22.0-26.0 [facility] Comment on above: Performed By: #### Kaya G8IA #### [facility] [address] [place] [address] Hematocrit (Bld) [Volume fraction] 25 %PCV Low 38-51 [facility] Comment on above: Performed By: #### Kaya G8IA #### [place] [address] Performed By: #### C G8IV #### [place] [address] Ionized Calcium (iSTAT) 4.3 mg/dL Low 4.5-5.3 A [facility] Comment on above: Performed By: #### Kaya G8IA #### [facility] [address] [place], [place] [address] O2% Sat. (i-STAT) 100.0 % High 95.0-98.0 [facility] Comment on above: Performed By: #### Kaya G8IA #### [facility] [address] [place], [place] [address] Oxygen (Bld) [Partial pressure] 354.0 mm Hg High 80.0-105.0 [facility] Comment on above: Performed By: #### Kaya G8IA #### [place] [address] PCO2 (i-STAT) 42.7 mm Hg Normal 35.0-45.0 [facility] Comment on above: Performed By: #### Kaya G8IA #### [place] [address] pH (Bld) 7.365 [pH] Normal 7.350-7.450 [facility] Comment on above: Performed By: #### Kaya G8IA #### [place] [address] Potassium [Moles/Vol] 6.2 mmol/L High 3.5-4.9 [facility] Comment on above: Performed By: #### Kaya G8IA #### [place] [address] Sodium [Moles/Vol] 132 mmol/L Low 138-146 [facility] Comment on above: Performed By: #### Kaya G8IA #### [place] [address] Total CO2 (i-STAT) 26 mmol/L Normal 23-27 [facility] Comment on above: Performed By: #### Kaya G8IA #### [place] [address] CG8 Venous Panel (i-STAT)on 03-08-2020 Base Excess (i-STAT) -3.0 mmol/L Normal -2.0 to 3.0 [facility] Comment on above: Performed By: #### Kaya G8IV #### [facility] [address] [place] [address] Glucose [Mass/Vol] 205 mg/dL High 70-99 [facility] Comment on above: Performed By: #### C G8IV #### [facility] [address] [place] [address] HCO3 (Bld) [Moles/Vol] 23.8 mmol/L Normal 23.0-28.0 [facility] Comment on above: Performed By: #### C G8IV #### [facility] [address] [place] [address] Hemoglobin (Bld) [Mass/Vol] 8.5 g/dL Low 12.0-17.0 [facility] Comment on above: Performed By: #### C G8IV #### [place] [address] Performed By: #### Kaya G8IA #### [place] [address] Ionized Calcium (iSTAT) 4.5 mg/dL Normal 4.5-5.3 A [facility] Comment on above: Performed By: #### C G8IV #### [place] [address] O2% Sat. (i-STAT) 79.0 % Normal 35.0-85.0 [facility] Comment on above: Performed By: #### C G8IV #### [place] [address] Oxygen (Bld) [Partial pressure] 48.0 mm Hg Normal 20.0-50.0 [facility] Comment on above: Performed By: #### C G8IV #### [place] [address] PCO2 (i-STAT) 48.2 mm Hg Normal 41.0-51.0 [facility] Comment on above: Performed By: #### C G8IV #### [place] [address] pH (Bld) 7.302 [pH] Low 7.310-7.410 [facility] Comment on above: Performed By: #### C G8IV #### [facility] [address] [place] [address] Potassium [Moles/Vol] 5.9 mmol/L High 3.5-4.9 [facility] Comment on above: Performed By: #### C G8IV #### [facility] [address] [place] [address] Sodium [Moles/Vol] 133 mmol/L Low 138-146 [facility] Comment on above: Performed By: #### C G8IV #### [facility] [address] [place] [address] Total CO2 (i-STAT) 25 mmol/L Normal 24-29 [facility] Comment on above: Performed By: #### C G8IV #### [facility] [address] [place] [address] Hemogramon 03-08-2020 Erythrocyte distribution width (RBC) [Ratio] 13.5 % Normal 11.6-14.4 [facility] Comment on above: Performed By: #### C BC1 #### [facility] [address] [place] [address] Hematocrit (Bld) [Volume fraction] 32.6 % Low 40.1-51.0 [facility] Comment on above: Performed By: #### C BC1 #### [facility] [address] [place] [address] Hemoglobin (Bld) [Mass/Vol] 11.2 g/dL Low 13.7-17.5 [facility] Comment on above: Performed By: #### C BC1 #### [facility] [address] [place], [place] [address] MCH (RBC) [Entitic mass] 32.1 pg Normal 25.7-32.2 [facility] Comment on above: Performed By: #### C BC1 #### [facility] [address] [place], [place] [address] MCHC (RBC) [Mass/Vol] 34.4 % Normal 32.3-36.5 [facility] Comment on above: Performed By: #### C BC1 #### [facility] [address] [place], [place] [address] MCV (RBC) [Entitic vol] 93.4 fL Normal 83.2-95.6 A [facility] Comment on above: Performed By: #### C BC1 #### [facility] [address] [place], [place] [address] Platelet mean volume (Bld) [Entitic vol] 10.2 fL Normal 8.7-12.0 [facility] Comment on above: Performed By: #### C BC1 #### [facility] [address] [place], [place] [address] Platelets (Bld) [#/Vol] 243 thou/cmm Normal 141-365 [facility] Comment on above: Performed By: #### C BC1 #### [facility] [address] [place] [address] RBC (Bld) [#/Vol] 3.49 mil/cmm Low 4.63-6.08 [facility] Comment on above: Performed By: #### C BC1 #### [facility] [address] [place] [address] RDW SD 45.7 fl Normal 36.1-45.8 [facility] Comment on above: Performed By: #### C BC1 #### [facility] [address] [place], [place] [address] WBC (Bld) [#/Vol] 19.48 thou/cmm High 4.23-9.07 [facility] Comment on above: Performed By: #### C BC1 #### [facility] [address] [place] [address] Magnesium Bloodon 03-08-2020 Magnesium [Mass/Vol] 2.1 mg/dL Normal 1.7-2.3 [facility] Comment on above: Performed By: #### T &S #### [facility] [address] [place] [address] Protimeon 03-08-2020 INR Coag (PPP) [Relative time] 1.09 {INR} Normal 0.90-1.30 [facility] Comment on above: Result Comment: Dana min K Antagonist (VKA) Therapeutic Range: INR 2 to 3 (Target INR of 2.5) Note: For patients treated with VKA drugs, such as warfarin, the [place] [employer] 2012 Guideline recommends [...] Chest 2012; 141:7S-47S Beth STEVENSON et al. [facility] 2017; 70: 252-289 Performed By: #### T &S #### [facility] [address] [place] [address] PT Coag (PPP) [Time] 11.8 s Normal 9.7-13.0 [facility] Comment on above: Performed By: #### T &S #### [address] [address] XR CHEST 1V FRONTALon 2019 XR CHEST [...] diaphragm with the tip not included the [id number]. Right basal and left apical thoracostomy tubes [...] in the lung bases, mild interstitial edema. [employer] Developer: PSCB Transcribe Date/Time: Mar 08 2020 4:05P Dictated by : SARAH KELLEY MD This examination was interpreted and the report reviewed and electronically signed by: SARAH KELLEY MD on Mar 08 2020 4:08PM EST Normal [facility] MRSA Screenon 02-16-2020 MRSA DNA PATRICIO+probe Ql (Unsp spec) Test performed at [facility] No MRSA detected. Normal [facility] Comment on above: Performed By: #### M RSA #### [place] [address] Type and Screenon 02-16-2020 ABO group Nom (Bld) A Normal [facility] Comment on above: Performed By: #### T &S #### [place] [address] Comment PAT specimen Normal [facility] Comment on above: Performed By: #### T &S #### [place] [address] RH Type Positive Normal [facility] Comment on above: Performed By: #### T &S #### [place] [address] Urinalysis, reflexon 020 Reflex Comment see below Normal [facility] Comment on above: Result Comment: Refl ex to culture is not indicated based on established laboratory criteria. Performed By: #### U RIN #### [place] [address] Bacteria LM.HPF (Urine sed) [#/Area] NONE Normal None [facility] Comment on above: Performed By: #### U RIN #### [facility] [address] [place] [address] Ep Cells Urine 0.3 /hpf Normal 0.0-5.0 [facility] Comment on above: Performed By: #### U RIN #### [facility] [address] [place] [address] Hyaline Cast 0.0 /lpf Normal 0.0-1.0 [facility] Comment on above: Performed By: #### U RIN #### [place] [address] RBC LM.HPF (Urine sed) [#/Area] 2.5 /[HPF] Normal 0.0-5.0 [facility] Comment on above: Performed By: #### U RIN #### [place] [address] WBC, reflex 0.50 /hpf Normal 0.00-5.00 [facility] Comment on above: Performed By: #### U RIN #### [place] [address] Appearance (U) CLEAR Normal [facility] Comment on above: Performed By: #### U RIN #### [place] [address] Bilirubin (U) [Mass/Vol] Negative Normal Negative [facility] Comment on above: Performed By: #### U RIN #### [place] [address] Color (U) YELLOW Normal [facility] Comment on above: Performed By: #### U RIN #### [place] [address] Glucose Ql (U) Negative Normal Negative [facility] Comment on above: Performed By: #### U RIN #### [place] [address] Hemoglobin,Urine Negative Normal Negative [facility] Comment on above: Performed By: #### U RIN #### [place] [address] Ketone Urine Negative Normal Negative [facility] Comment on above: Performed By: #### U RIN #### [facility] [address] [place] [address] Leukocyte esterase Test strip Ql (U) Negative Normal Negative [facility] Comment on above: Performed By: #### U RIN #### [facility] [address] [place] [address] Nitrite reflex Negative Normal Negative [facility] Comment on above: Performed By: #### U RIN #### [facility] [address] [place] [address] pH (U) 6.0 [pH] Normal 5.0-8.0 [facility] Comment on above: Performed By: #### U RIN #### [facility] [address] [place] [address] Protein (U) [Mass/Vol] Negative Normal Negative [facility] Comment on above: Performed By: #### U RIN #### [place] [address] Specific [place], Ur 1.026 Normal 1.005-1.030 [facility] Comment on above: Performed By: #### U RIN #### [place] [address] Urobilinogen,Ur 1.0 EU/dL Normal 0.2-1.0 [facility] Comment on above: Performed By: #### U RIN #### [place] [address] Clinical Summary: HMSPatient IDon 11-27-2018 KOP Invalid Interpretation Code [facility] Work Phone: Clinical Summary: Scanned Hi story Summaryon 11-27-2018 adl form etoh alcohol performance BeerWine Invalid Interpretation Code [facility] Work Phone: brother(s) of patient alive or Unknown Invalid Interpretation Code [facility] Work Phone: consumes three or more drinks of alcohol (beer, wine, liquor) daily or almost daily 2 drinks per day Invalid Interpretation Code [facility] Work Phone: data entered by patient, alcohol (ethanol or ETOH) use Yes Invalid Interpretation Code [facility] Work Phone: Data entered by patient, allergy list Penicillin Invalid Interpretation Code [facility] Work Phone: data entered by patient, cigarette smoking 1 pack per day Invalid Interpretation Code [facility] Work Phone: data entered by patient, drug (of abuse) use No Invalid Interpretation Code [facility] Work Phone: data entered by patient, Employer Name Employed Invalid Interpretation Code [facility] Work Phone: data entered by patient, exercise history No Invalid Interpretation Code [facility] Work Phone: data entered by patient, father's medical history Heart disease Invalid Interpretation Code [facility] Work Phone: Data entered by patient, history of past surgeries Foot surgeryHernia repair Invalid Interpretation Code [facility] Work Phone: data entered by patient, mother's medical history Heart diseaseCOPD Invalid Interpretation Code [facility] Work Phone: data entered by patient, past medical history AsthmaDepressionHigh blood pressureArthritis Invalid Interpretation Code [facility] Work Phone: data entered by patient, social history, current smoker current everyday smoker Invalid Interpretation Code [facility] Work Phone: data entered by patient, social history, marital status Invalid Interpretation Code [facility] Work Phone: father of patient is alive or Invalid Interpretation Code [facility] Work Phone: Housing Type: apartment, house, jail, trailer, none House Invalid Interpretation Code [facility] Work Phone: housing unit size (asthma environmental history, housing) (from single family to don't know) 2 Floors Invalid Interpretation Code [facility] Work Phone: mother of patient is alive or Invalid Interpretation Code [facility] Work Phone: Number of dependent children No Invalid Interpretation Code [facility] Work Phone: sister of patient(s) alive or Unknown Invalid Interpretation Code [facility] Work Phone: Clinical Summary: Scanned RO S Summaryon 11-27-2018 endocrine ROS Denies Invalid Interpretation Code [facility] Work Phone: genitourinary review of systems, E&M Denies Invalid Interpretation Code [facility] Work Phone: Lymphocytes Auto #/vol (Bld) Denies Invalid Interpretation Code [facility] Work Phone: ROS cardiovascular E&M Denies Invalid Interpretation Code [facility] Work Phone: ROS ENT E&M Denies Invalid Interpretation Code [facility] Work Phone: ROS gastrointestinal E&M Denies Invalid Interpretation Code [facility] Work Phone: ROS general E&M Denies Invalid Interpretation Code [facility] Work Phone: ROS Musculoskeletal comments Joint Pain Invalid Interpretation Code [facility] Work Phone: ROS musculoskeletal E&M Complains Invalid Interpretation Code [facility] Work Phone: ROS neurological E&M Denies Invalid Interpretation Code [facility] Work Phone: ROS psychiatric E&M Denies Invalid Interpretation Code [facility] Work Phone: ROS Pulmonary comment Cough Invalid Interpretation Code [facility] Work Phone: ROS pulmonary E&M Complains Invalid Interpretation Code [facility] Work Phone: ROS skin E&M Denies Invalid Interpretation Code [facility] Work Phone: Office Visit: New - 1st visi t with practice, Rm: 2on 11-27-2018 NEGATED: Highlighted rowMRI (magnetic resonance imaging) history of the right knee on 03/19/2018 at [facility], of the right knee on 03/15/2014 at [facility] Invalid Interpretation Code [facility] Work Phone: NEGATED: Highlighted rowProtein mass conc Yes Invalid Interpretation Code [facility] Work Phone: NEGATED: Highlighted rowProtein mass conc Done Invalid Interpretation Code [facility] Work Phone: NEGATED: Highlighted rowTobacco smoking status NHIS current everyday smoker Invalid Interpretation Code [facility] Work Phone: NEGATED: Highlighted rowxray history of the right knee on 10/[address] West's Office--[facility] Invalid Interpretation Code [facility] Work Phone: COVID-19 virus antigen assay SARS-CoV-2 (COVID-19) Ag IA.rapid Ql (Resp) [facility] Work Phone: Vital Signs Date Time Vital Sign Value Performing Clinician Facility 07-06-2025 08:42-0400 Body temperature 97.5 [degF] Dr. Tania West MD Work Phone: [facility] 07-06-2025 08:42-0400 Body weight 102.[address] Tania West MD Work Phone: [facility] 07-06-2025 08:42-0400 Diastolic blood pressure 69 mm[Hg] Dr. Tania West MD Work Phone: [facility] 07-06-2025 08:42-0400 Heart rate 51 /min Dr. Tania West MD Work Phone: [facility] 07-06-2025 08:42-0400 Respiratory rate 14 /min Dr. Tania West MD Work Phone: [facility] 07-06-2025 08:42-0400 SaO2% (BldA) [Mass fraction] 96 % Dr. Tania West MD Work Phone: [facility] 07-06-2025 08:42-0400 Systolic blood pressure 142 mm[Hg] Dr. Tania West MD Work Phone: [facility] 03-25-2025 12:53-0400 Body mass index (BMI) [Ratio] 33.37 kg/m2 Kaylene Feliz MD Work Phone: [facility] 03-25-2025 12:53-0400 Body temperature 97.7 [degF] Kaylene Feliz MD Work Phone: [facility] 03-25-2025 12:53-0400 Body weight 105.51 kg Kaylene Feliz MD Work Phone: [facility] Comment on above: shoes on 03-25-2025 12:53-0400 Diastolic blood pressure 61 mm[Hg] Kaylene Feliz MD Work Phone: [facility] 03-25-2025 12:53-0400 Heart rate 61 /min Kaylene Feliz MD Work Phone: [facility] 03-25-2025 12:53-0400 Respiratory rate 16 /min Kaylene Feliz MD Work Phone: [facility] 03-25-2025 12:53-0400 SaO2% (BldA) [Mass fraction] 97 % Kaylene Feliz MD Work Phone: [facility] Comment on above: RA 03-25-2025 12:53-0400 Systolic blood pressure 136 mm[Hg] Kaylene Feliz MD Work Phone: [facility] 03-16-2025 13:20-0400 Body mass index (BMI) [Ratio] 32.01 kg/m2 Nurse Main Work Phone: [facility] 03-16-2025 13:20-0400 Body temperature 97.39 [degF] Nurse Main Work Phone: [facility] 03-16-2025 13:20-0400 Body weight 101.2 kg Nurse Main Work Phone: [facility] Comment on above: shoes on 03-16-2025 13:20-0400 Diastolic blood pressure 62 mm[Hg] Nurse Main Work Phone: [facility] 03-16-2025 13:20-0400 Heart rate 62 /min Nurse Main Work Phone: [facility] 03-16-2025 13:20-0400 Respiratory rate 18 /min Nurse Main Work Phone: [facility] 03-16-2025 13:20-0400 SaO2% (BldA) [Mass fraction] 95 % Nurse Main Work Phone: [facility] Comment on above: ra 03-16-2025 13:20-0400 Systolic blood pressure 132 mm[Hg] Nurse Main Work Phone: [facility] 03-15-2025 08:14-0400 Body mass index (BMI) [Ratio] 33.72 kg/m2 Kaylene Feliz MD Work Phone: [facility] 03-15-2025 08:14-0400 Body temperature 97.39 [degF] Kaylene Feliz MD Work Phone: [facility] 03-15-2025 08:14-0400 Body weight 106.59 kg Kaylene Feliz MD Work Phone: [facility] 03-15-2025 08:14-0400 Diastolic blood pressure 55 mm[Hg] Kaylene Feliz MD Work Phone: [facility] 03-15-2025 08:14-0400 Heart rate 60 /min Kaylene Feliz MD Work Phone: [facility] 03-15-2025 08:14-0400 Respiratory rate 18 /min Kaylene Feliz MD Work Phone: [facility] 03-15-2025 08:14-0400 SaO2% (BldA) [Mass fraction] 96 % Kaylene Feliz MD Work Phone: [facility] 03-15-2025 08:14-0400 Systolic blood pressure 125 mm[Hg] Kaylene Feliz MD Work Phone: [facility] 03-05-2025 12:51-0400 Body height 177.8 cm Elliot Lyman MD, PhD Work Phone: [facility] 03-05-2025 12:51-0400 Body mass index (BMI) [Ratio] 33 kg/m2 Elliot Lyman MD, PhD Work Phone: [facility] 03-05-2025 12:51-0400 Body temperature 97.9 [degF] Elliot Lyman MD, PhD Work Phone: [facility] 03-05-2025 12:51-0400 Body weight 104.33 kg Elliot Lyman MD, PhD Work Phone: [facility] 03-05-2025 12:51-0400 Diastolic blood pressure 59 mm[Hg] Elliot Lyman MD, PhD Work Phone: [facility] 03-05-2025 12:51-0400 Heart rate 63 /min Elliot Lyman MD, PhD Work Phone: [facility] 03-05-2025 12:51-0400 Respiratory rate 14 /min Elliot Lyman MD, PhD Work Phone: [facility] 03-05-2025 12:51-0400 SaO2% (BldA) [Mass fraction] 94 % Elliot Lyman MD, PhD Work Phone: [facility] 03-05-2025 12:51-0400 Systolic blood pressure 141 mm[Hg] Elliot Lyman MD, PhD Work Phone: [facility] 03-05-2025 12:00-0400 Body height 179.6 cm Pul 4 [facility] 03-05-2025 12:00-0400 Body mass index (BMI) [Ratio] 32.43 kg/m2 Pulm 4 [facility] 03-05-2025 12:00-0400 Body weight 104.6 kg Pulm 4 [facility] 02-12-2025 11:06-0400 Body height 180.3 cm Elliot Lyman MD, PhD Work Phone: [facility] 02-12-2025 11:06-0400 Body mass index (BMI) [Ratio] 31.03 kg/m2 Elliot Lyman MD, PhD Work Phone: [facility] 02-12-2025 11:06-0400 Body temperature 98.01 [degF] Elliot Lyman MD, PhD Work Phone: [facility] 02-12-2025 11:06-0400 Body weight 100.92 kg Elliot Lyman MD, PhD Work Phone: [facility] 02-12-2025 11:06-0400 Diastolic blood pressure 69 mm[Hg] Elliot Lyman MD, PhD Work Phone: [facility] 02-12-2025 11:06-0400 Heart rate 62 /min Elliot Lyman MD, PhD Work Phone: [facility] 02-12-2025 11:06-0400 Respiratory rate 14 /min Elliot Lyman MD, PhD Work Phone: [facility] 02-12-2025 11:06-0400 SaO2% (BldA) [Mass fraction] 95 % Elliot Lyman MD, PhD Work Phone: [facility] 02-12-2025 11:06-0400 Systolic blood pressure 141 mm[Hg] Elliot Lyman MD, PhD Work Phone: [facility] 01-19-2025 14:02-0500 Body height 182.[address] Tania West MD Work Phone: [facility] 01-19-2025 14:02-0500 Body mass index (BMI) [Ratio] 30.4 kg/m2 Dr. Tania West MD Work Phone: [facility] 01-19-2025 14:02-0500 Body weight 101.[address] Tania West MD Work Phone: [facility] 01-19-2025 14:02-0500 Diastolic blood pressure 63 mm[Hg] Dr. Tania West MD Work Phone: [facility] 01-19-2025 14:02-0500 Respiratory rate 16 /min Dr. Tania West MD Work Phone: [facility] 01-19-2025 14:02-0500 Systolic blood pressure 102 mm[Hg] Dr. Tania West MD Work Phone: [facility] 12-28-2024 10:53-0500 Body mass index (BMI) [Ratio] 30.9 kg/m2 Dalia Augustine MD Work Phone: [facility] 12-28-2024 10:53-0500 Body temperature 97.39 [degF] Dalia Augustine MD Work Phone: [facility] 12-28-2024 10:53-0500 Body weight 100.5 kg Dalia Augustine MD Work Phone: [facility] 12-28-2024 10:53-0500 Diastolic blood pressure 62 mm[Hg] Dalia Augustine MD Work Phone: [facility] 12-28-2024 10:53-0500 Heart rate 70 /min Dalia Augustine MD Work Phone: [facility] 12-28-2024 10:53-0500 Respiratory rate 16 /min Dalia Augustine MD Work Phone: [facility] 12-28-2024 10:53-0500 SaO2% (BldA) [Mass fraction] 96 % Dalia Augustine MD Work Phone: [facility] 12-28-2024 10:53-0500 Systolic blood pressure 133 mm[Hg] Dalia Augustine MD Work Phone: [facility] 10-29-2024 10:08-0500 Body height 180.3 cm Lynne Griffith APRN.[facility] Work Phone: [facility] 10-29-2024 10:08-0500 Body mass index (BMI) [Ratio] 27.89 kg/m2 Lynnephilippe Griffith APRN.FLAT LOCK OPERATOR Work Phone: [facility] 10-29-2024 10:08-0500 Body temperature 97.11 [degF] Lynnephilippe Griffith APRN.FLAT LOCK OPERATOR Work Phone: [facility] 10-29-2024 10:08-0500 Body weight 90.72 kg Lynnephilippe Griffith APRN.FLAT LOCK OPERATOR Work Phone: [facility] 10-29-2024 10:08-0500 Diastolic blood pressure 52 mm[Hg] Lynne Griffith APRN.FLAT LOCK OPERATOR Work Phone: [facility] 10-29-2024 10:08-0500 Heart rate 66 /min Lynnephilippe Griffith APRN.FLAT LOCK OPERATOR Work Phone: [facility] 10-29-2024 10:08-0500 Respiratory rate 14 /min Lynne Iron DUMONTN.FLAT LOCK OPERATOR Work Phone: [facility] 10-29-2024 10:08-0500 SaO2% (BldA) [Mass fraction] 96 % Lynne Iron PERAZA.FLAT LOCK OPERATOR Work Phone: [facility] 10-29-2024 10:08-0500 Systolic blood pressure 117 mm[Hg] Lynne Griffith APRN.FLAT LOCK OPERATOR Work Phone: [facility] 01-23-2024 09:51-0500 Body height 182.[address] Tania West Work Phone: [facility] 01-23-2024 09:51-0500 Body mass index (BMI) [Ratio] 29.7 kg/m2 Dr. Tania West Work Phone: [facility] 01-23-2024 09:51-0500 Body weight 99.[address] Tania West Work Phone: [facility] 01-23-2024 09:51-0500 Diastolic blood pressure 67 mm[Hg] Dr. Tania West Work Phone: [facility] 01-23-2024 09:51-0500 Heart rate 67 /min Dr. Tania West Work Phone: [facility] 01-23-2024 09:51-0500 Respiratory rate 18 /min Dr. Tania West Work Phone: [facility] 01-23-2024 09:51-0500 SaO2% (BldA) [Mass fraction] 97 % Dr. Tania West Work Phone: [facility] 01-23-2024 09:51-0500 Systolic blood pressure 125 mm[Hg] Dr. Tania West Work Phone: [facility] 11-08-2023 23:42-0500 Body temperature 100.5 [degF] Dr. Tania West Work Phone: [facility] 11-08-2023 21:27-0500 Diastolic blood pressure 81 mm[Hg] Dr. Tania West Work Phone: [facility] 11-08-2023 21:27-0500 Heart rate 89 /min Dr. Tania West Work Phone: [facility] 11-08-2023 21:27-0500 Respiratory rate 16 /min Dr. Tania West Work Phone: [facility] 11-08-2023 21:27-0500 SaO2% (BldA) [Mass fraction] 99 % Dr. Tania West Work Phone: [facility] 11-08-2023 21:27-0500 Systolic blood pressure 181 mm[Hg] Dr. Tania West Work Phone: [facility] 11-08-2023 21:14-0500 Body height 182.[address] Tania West Work Phone: [facility] 11-08-2023 21:14-0500 Body mass index (BMI) [Ratio] 30.2 kg/m2 Dr. Tania West Work Phone: [facility] 11-08-2023 21:14-0500 Body weight 101.[address] Tania West Work Phone: [facility] 07-25-2023 10:12-0400 Body height 180.[address] Tania West Work Phone: [facility] 07-25-2023 10:12-0400 Body mass index (BMI) [Ratio] 29.1 kg/m2 Dr. Tania West Work Phone: [facility] 07-25-2023 10:12-0400 Body weight 94.[address] Tania West Work Phone: [facility] 07-25-2023 10:12-0400 Diastolic blood pressure 61 mm[Hg] Dr. Tania West Work Phone: [facility] 07-25-2023 10:12-0400 Heart rate 81 /min Dr. Tania West Work Phone: [facility] 07-25-2023 10:12-0400 Respiratory rate 18 /min Dr. Tania West Work Phone: [facility] 07-25-2023 10:12-0400 SaO2% (BldA) [Mass fraction] 95 % Dr. Tania West Work Phone: [facility] 07-25-2023 10:12-0400 Systolic blood pressure 101 mm[Hg] Dr. Tania West Work Phone: [facility] 04-13-2023 10:02-0400 Body temperature 97.8 [degF] Dr. Tania West Work Phone: [facility] 04-13-2023 10:02-0400 Diastolic blood pressure 62 mm[Hg] Dr. Tania West Work Phone: [facility] 04-13-2023 10:02-0400 Heart rate 78 /min Dr. Tania West Work Phone: [facility] 04-13-2023 10:02-0400 Respiratory rate 16 /min Dr. Tania West Work Phone: [facility] 04-13-2023 10:02-0400 SaO2% (BldA) [Mass fraction] 100 % Dr. Tania West Work Phone: [facility] 04-13-2023 10:02-0400 Systolic blood pressure 134 mm[Hg] Dr. Tania West Work Phone: [facility] 04-13-2023 09:11-0400 Body mass index (BMI) [Ratio] 29.5 kg/m2 Dr. Tania West Work Phone: 7(855)513-445375 [place] [address] 04-13-2023 09:11-0400 Body weight 96.[address] Tania West Work Phone: 9(228)908-666975 [place] [address] 11-18-2022 00:08-0500 Body weight 97.[address] Tania West Work Phone: 6(605)253-980675 [place] [address] 11-16-2022 10:30-0500 Body height 180.[address] Tania West Work Phone: 0(550)760-715275 [place] [address] 11-16-2022 10:30-0500 Body weight 97.[address] Tania West Work Phone: 7(621)[phone] [place] [address] 10-17-2022 09:01-0500 Body height 180.[address] Tania West Work Phone: [facility] Work Phone: 10-17-2022 09:01-0500 Body weight 97.[address] Tania West Work Phone: [facility] 10-17-2022 08:41-0500 Body mass index (BMI) [Ratio] 30.1 kg/m2 Dr. Tania West Work Phone: [facility] 10-17-2022 08:41-0500 Diastolic blood pressure 58 mm[Hg] Dr. Tania West Work Phone: [facility] 10-17-2022 08:41-0500 Heart rate 85 /min Dr. Tania West Work Phone: [facility] 10-17-2022 08:41-0500 SaO2% (BldA) [Mass fraction] 96 % Dr. Tania West Work Phone: [facility] 10-17-2022 08:41-0500 Systolic blood pressure 98 mm[Hg] Dr. Tania West Work Phone: [facility] 10-02-2022 15:45-0500 Body height 180.[address] Tania West Work Phone: [facility] Work Phone: 10-02-2022 15:45-0500 Body mass index (BMI) [Ratio] 30.4 kg/m2 Dr. Tania West Work Phone: [facility] 10-02-2022 15:45-0500 Body weight 98.[address] Tania West Work Phone: [facility] 10-02-2022 15:45-0500 Diastolic blood pressure 69 mm[Hg] Dr. Tania West Work Phone: [facility] 10-02-2022 15:45-0500 Heart rate 82 /min Dr. Tania West Work Phone: [facility] 10-02-2022 15:45-0500 Respiratory rate 18 /min Dr. Tania West Work Phone: [facility] 10-02-2022 15:45-0500 SaO2% (BldA) [Mass fraction] 99 % Dr. Tania West Work Phone: [facility] 10-02-2022 15:45-0500 Systolic blood pressure 119 mm[Hg] Dr. Tania West Work Phone: [facility] 09-11-2022 15:01-0400 Body mass index (BMI) [Ratio] 30.1 kg/m2 Dr. Tania West Work Phone: [facility] 09-11-2022 15:01-0400 Body weight 97.[address] Tania West Work Phone: [facility] 09-11-2022 15:01-0400 Diastolic blood pressure 54 mm[Hg] Dr. Tania West Work Phone: [facility] 09-11-2022 15:01-0400 Heart rate 91 /min Dr. Tania West Work Phone: [facility] 09-11-2022 15:01-0400 Respiratory rate 18 /min Dr. Tania West Work Phone: [facility] 09-11-2022 15:01-0400 SaO2% (BldA) [Mass fraction] 96 % Dr. Tania West Work Phone: [facility] 09-11-2022 15:01-0400 Systolic blood pressure 100 mm[Hg] Dr. Tania West Work Phone: [facility] 08-30-2022 10:21-0400 Body height 180.3 cm Acacia Albertinayuni PERAZA.ELDERLY CAREGIVER Work Phone: [facility] 08-30-2022 10:21-0400 Body temperature 98.29 [degF] Acacia Albertinayuni PERAZA.ELDERLY CAREGIVER Work Phone: [facility] 08-30-2022 10:21-0400 Body weight 100.25 kg Acacia Albertinayuni PERAZA.ELDERLY CAREGIVER Work Phone: [facility] 08-30-2022 10:21-0400 Diastolic blood pressure 59 mm[Hg] Acacia Eng APRN.ELDERLY CAREGIVER Work Phone: [facility] 08-30-2022 10:21-0400 Heart rate 84 /min Acacia Eng APRN.ELDERLY CAREGIVER Work Phone: [facility] 08-30-2022 10:21-0400 Respiratory rate 12 /min Acacia Eng APRN.ELDERLY CAREGIVER Work Phone: [facility] 08-30-2022 10:21-0400 SaO2% (BldA) [Mass fraction] 96 % Acacia Eng APRN.ELDERLY CAREGIVER Work Phone: [facility] 08-30-2022 10:21-0400 Systolic blood pressure 107 mm[Hg] Acacia Eng APRN.ELDERLY CAREGIVER Work Phone: [facility] 08-16-2022 09:55-0400 Body temperature 97.5 [degF] Dr. Tania West Work Phone: [facility] Work Phone: 08-16-2022 09:55-0400 Diastolic blood pressure 82 mm[Hg] Dr. Tania West Work Phone: [facility] Work Phone: 08-16-2022 09:55-0400 Heart rate 64 /min Dr. Tania West Work Phone: [facility] Work Phone: 08-16-2022 09:55-0400 Respiratory rate 16 /min Dr. Tania West Work Phone: [facility] Work Phone: 08-16-2022 09:55-0400 SaO2% (BldA) [Mass fraction] 96 % Dr. Tania West Work Phone: [facility] Work Phone: 08-16-2022 09:55-0400 Systolic blood pressure 139 mm[Hg] Dr. Tania West Work Phone: [facility] Work Phone: 08-16-2022 08:55-0400 Body height 180.[address] Tania West Work Phone: [facility] Work Phone: 08-16-2022 08:55-0400 Body mass index (BMI) [Ratio] 32.8 kg/m2 Dr. Tania West Work Phone: [facility] Work Phone: 08-16-2022 08:55-0400 Body weight 106.[address] Tania West Work Phone: [facility] Work Phone: 07-19-2022 09:20-0400 Body height 180.[address] Tania West Work Phone: [facility] Work Phone: 07-19-2022 09:20-0400 Body mass index (BMI) [Ratio] 32.8 kg/m2 Dr. Tania West Work Phone: [facility] Work Phone: 07-19-2022 09:20-0400 Body weight 106.[address] Tania West Work Phone: [facility] Work Phone: 07-19-2022 09:20-0400 Diastolic blood pressure 80 mm[Hg] Dr. Tania West Work Phone: [facility] Work Phone: 07-19-2022 09:20-0400 Heart rate 59 /min Dr. Tania West Work Phone: [facility] Work Phone: 07-19-2022 09:20-0400 Respiratory rate 18 /min Dr. Tania West Work Phone: [facility] Work Phone: 07-19-2022 09:20-0400 SaO2% (BldA) [Mass fraction] 93 % Dr. Tania West Work Phone: [facility] Work Phone: 07-19-2022 09:20-0400 Systolic blood pressure 153 mm[Hg] Dr. Tania West Work Phone: [facility] Work Phone: 03-12-2022 12:29-0400 Body height 180.[address] Tania West Work Phone: [facility] Work Phone: 03-12-2022 12:29-0400 Body mass index (BMI) [Ratio] 33.5 kg/m2 Dr. Tania West Work Phone: [facility] Work Phone: 03-12-2022 12:29-0400 Body temperature 97 [degF] Dr. Tania West Work Phone: [facility] Work Phone: 03-12-2022 12:29-0400 Body weight 108.[address] Tania West Work Phone: [facility] Work Phone: 03-12-2022 12:29-0400 Diastolic blood pressure 78 mm[Hg] Dr. Tania West Work Phone: [facility] Work Phone: 03-12-2022 12:29-0400 Heart rate 79 /min Dr. Tania West Work Phone: [facility] Work Phone: 03-12-2022 12:29-0400 Respiratory rate 18 /min Dr. Tania West Work Phone: [facility] Work Phone: 03-12-2022 12:29-0400 SaO2% (BldA) [Mass fraction] 96 % Dr. Tania West Work Phone: [facility] Work Phone: 03-12-2022 12:29-0400 Systolic blood pressure 128 mm[Hg] Dr. Tania West Work Phone: [facility] Work Phone: 01-15-2022 08:02-0500 Body mass index (BMI) [Ratio] 32.5 kg/m2 Dr. Tania West Work Phone: [facility] Work Phone: 01-15-2022 08:02-0500 Body weight 105.[address] Tania West Work Phone: [facility] Work Phone: 01-15-2022 08:02-0500 Diastolic blood pressure 81 mm[Hg] Dr. Tania West Work Phone: [facility] Work Phone: 01-15-2022 08:02-0500 Heart rate 82 /min Dr. Tania West Work Phone: [facility] Work Phone: 01-15-2022 08:02-0500 Respiratory rate 18 /min Dr. Tania West Work Phone: [facility] Work Phone: 01-15-2022 08:02-0500 SaO2% (BldA) [Mass fraction] 94 % Dr. Tania West Work Phone: [facility] Work Phone: 01-15-2022 08:02-0500 Systolic blood pressure 131 mm[Hg] Dr. Tania West Work Phone: [facility] Work Phone: 03-09-2020 10:20-0400 Body temperature 36.0 Deg Daniela [facility] Comment on above: Performed By: #### M RSA #### [place] [id number] 03-08-2020 17:45-0400 Body temperature 35.9 Deg Daniela [facility] Comment on above: Performed By: #### T &S #### [place] [address] 03-08-2020 17:19-0400 Body temperature 36.1 Deg Daniela [facility] Comment on above: Performed By: #### A BG #### [place] [address] NEGATED: Highlighted [id number] 10:42-0500 BMI (Body Mass Index) 31.66 kg/m2 Carmel Mcdonnell AT [facility] Work Phone: NEGATED: Highlighted [id number] 10:42-0500 BP Diastolic 89 mm[Hg] Carmel Mcdonnell AT [facility] Work Phone: NEGATED: Highlighted [id number] 10:42-0500 BP Diastolic 82 mm[Hg] Carmel VanScoit AT [facility] Work Phone: NEGATED: Highlighted [id number] 10:42-0500 BP Systolic 150 mm[Hg] Carmel VanScoit AT [facility] Work Phone: NEGATED: Highlighted [id number] 10:42-0500 BP Systolic 126 mm[Hg] Carmel VanScoit AT [facility] Work Phone: NEGATED: Highlighted [id number] 10:42-0500 Height 179.07 cm Carmel VanScoit AT [facility] Work Phone: NEGATED: Highlighted [id number] 10:42-0500 Height 179 cm Carmel VanScoit AT [facility] Work Phone: NEGATED: Highlighted [id number] 10:42-0500 Weight 101.15 kg Carmel VanScoit AT [facility] Work Phone: NEGATED: Highlighted [id number] 10:42-0500 Weight 101 kg Carmel VanScoit AT [facility] Work Phone: Encounters Encounter Date Encounter Type Care Provider Facility Start: 09-14-2025 End: 09-14-2025 ambulatory Tania West Facility:[facility] Start: 08-02-2025 End: 08-02-2025 Follow-up encounter Kaylene Feliz MD Work Phone: Radiation Oncology Comment on above: Encounter for follow -up surveillance of lung cancer (Primary Dx); History of lung cancer Start: 08-02-2025 End: 08-02-2025 Telemedicine consultation with patient Kaylene Feliz MD Work Phone: Radiation Oncology Start: 08-02-2025 End: 08-02-2025 ambulatory KAYLENE FELIZ Facility:[facility] Start: 07-29-2025 ambulatory KAYLENEJUAN CARLOS FELIZ Facili ty:[facility] Start: 07-29-2025 End: 07-29-2025 Subsequent hospital visit by physician [facility] (I-Stat) Work Phone: Cat Scan Comment on above: Malignant neoplasm o f unspecified part of unspecified bronchus or lung (HCC) [C34.90] Start: 07-20-2025 End: 07-20-[address] Tania West MD Work Phone: -[facility] [place] Start: 07-20-2025 End: 07-20-[address] Martha Kim MD -[facility] Work Phone: Start: 07-20-2025 End: 07-20-2025 ambulatory Martha Kim Facility:[facility] Start: 07-06-2025 End: 07-06-2025 Patient encounter procedure Naomi QUEZADA -[facility] Work Phone: Start: 07-06-2025 End: 07-06-[address] Tania West MD Work Phone: -[facility] Start: 07-02-2025 End: 07-02-2025 ambulatory KAYLENE FELIZ Facility:[facility] Start: 07-02-2025 Encounter for examination for normal comparison and control in clinical research program TANIA WEST [facility] Start: 07-02-2025 End: 07-02-2025 Nursing evaluation of patient and report Research Nurse Isabelaho Main Work Phone: Cardiothoracic Comment on above: Research study paticonnor nt (Primary Dx) Start: 07-02-2025 End: 07-02-2025 Patient entered into trial Research Nurse Yadira Main Work Phone: [facility] Start: 05-13-2025 End: 05-13-2025 ambulatory KAYLENE Jennifer VLADIMIR Facility:[facility] Start: 05-12-2025 End: 05-12-2025 Nursing evaluation of patient and report Research Nurse Ctho Main Work Phone: Cardiothoracic Comment on above: Research study jesse nt (Primary Dx) Start: 05-12-2025 End: 05-12-2025 Patient entered into trial Research Nurse Yadira Main Work Phone: [facility] Start: 04-22-2025 End: 04-22-[address] Tania West MD Work Phone: [facility] Work Phone: Start: 04-22-2025 End: 04-22-[address] Martha Kim MD -[facility] [place] Work Phone: Start: 04-22-2025 End: 04-22-2025 ambulatory Martha Kim Facility:[facility] Start: 04-08-2025 End: 04-13-2025 Patient encounter procedure Kaylene Feliz MD Work Phone: Radiation Oncology Start: 04-08-2025 End: 04-13-2025 Radiation Oncology Note Kaylene Feliz MD Work Phone: Radiation Oncology Comment on above: Completion Note Start: 04-06-2025 End: 04-06-2025 ambulatory MINERVA SALAZAR Facility:[facility] Start: 04-01-2025 End: 04-01-2025 ambulatory TANIA WEST Facility:[facility] Start: 03-30-2025 End: 03-30-2025 ambulatory LUCIO CRANE Facility:[facility] Start: 03-25-2025 End: 03-25-2025 Patient encounter procedure Kaylene Feliz MD Work Phone: Radiation Oncology Comment on above: Malignant neoplasm o f upper lobe of right lung (HCC) (Primary Dx); Malignant neoplasm of unspecified part of unspecified bronchus or lung (HCC) Start: 03-25-2025 End: 03-25-2025 ambulatory TANIA WEST Facility:[facility] Start: 03-23-2025 End: 03-23-2025 ambulatory ELLIOT LYMAN Facility:[facility] Start: 03-23-2025 End: 03-23-2025 Nursing evaluation of patient and report Research Nurse Yadira Main Work Phone: Cardiothoracic Comment on above: Research study jesse nt (Primary Dx) Start: 03-23-2025 End: 03-23-2025 Patient entered into trial Research Nurse Yadira Main Work Phone: [facility] Start: 03-23-2025 End: 03-23-2025 ambulatory LUCIO CRANE Facility:[facility] Start: 03-16-2025 End: 03-20-2025 Patient encounter procedure Minerva Salazar MD Work Phone: Radiation Oncology Start: 03-16-2025 End: 03-20-2025 Radiation Oncology Note Minerva Salazar MD Work Phone: Radiation Oncology Comment on above: Simulation Note Treatment Planning Start: 03-16-2025 End: 03-16-2025 Nursing evaluation of patient and report Nurse Brigid Main Work Phone: Radiation Oncology Comment on above: Lung nodule (Primary Dx) Start: 03-16-2025 End: 03-16-2025 ambulatory TANIA WEST Facility:[facility] Start: 03-15-2025 End: 03-16-2025 Patient encounter procedure Kaylene Feliz MD Work Phone: Radiation Oncology Comment on above: Malignant neoplasm o f upper lobe of right lung (HCC) (Primary Dx); Multinodular thyroid; Personal history of malignant neoplasm of bronchus and lung; Lung nodule Malignant neoplasm o f upper lobe of right lung (HCC) (Primary Dx) Start: 03-15-2025 End: 03-15-2025 ambulatory ELLIOT LYMAN Facility:[facility] Start: 03-09-2025 End: 06-04-2025 Telephone encounter Elliot Lyman MD, PhD Work Phone: Thoracic Clinic Comment on above: Request Outside [facility] Records Start: 03-05-2025 End: 03-05-2025 Patient encounter procedure Elliot Lyman MD, PhD Work Phone: Thoracic Clinic Comment on above: Multinodular thyroid (Primary Dx); Personal history of malignant neoplasm of bronchus and lung; Lung nodule Start: 03-05-2025 End: 03-05-2025 Patient encounter procedure Pulm Fct [facility] Main 4 Pulmonary Medicine Start: 03-05-2025 End: 03-05-2025 ambulatory Pulm [facility]ct [facility] Main 4 Pulmonary Medicine Comment on above: Spirometry Start: 02-25-2025 End: 02-25-2025 Patient encounter procedure Dobutamine Echo Card Main Work Phone: Cardiology Comment on above: Dissection of thorac ic aorta, unspecified part (HCC); 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al angiopathy without gangrene, without long-term current use of insulin (HCC); Personal history of malignant neoplasm of bronchus and lung; Lung nodule Start: 02-25-2025 End: 02-25-2025 ambulatory TANIA WEST Facility:[facility] Start: 02-24-2025 End: 02-24-2025 Telephone encounter Ryann Warner RN Cardiology Comment on above: Patient Education (D SE Instructions - test scheduled 02/25/25) Start: 02-24-2025 End: 02-24-[address] Tania West MD Work Phone: [facility] Work Phone: Start: 02-24-2025 End: 02-24-[address] Martha Kim MD -Laboratory, [place] Work Phone: Start: 02-24-2025 End: 02-24-2025 ambulatory Martha Kim Facility:[facility] Start: 02-23-2025 End: 02-23-2025 Telephone encounter Elliot Lyman MD, PhD Work Phone: Thoracic Clinic Comment on above: Patient Question Start: 02-12-2025 End: 02-12-2025 ambulatory Marcello Mays Research Coordinator Pulmonary Medicine Comment on above: Research Update Start: 02-12-2025 End: 02-12-2025 Patient encounter procedure Elliot Lyman MD, PhD Work Phone: Thoracic Clinic Comment on above: Personal history of malignant neoplasm of bronchus and lung (Primary Dx); Dissection of thoracic aorta, unspecified part (HCC); 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al angiopathy without gangrene, without long-term current use of insulin (HCC); Lung nodule Start: 02-05-2025 End: 02-05-[address] Tania West MD Work Phone: [facility] Work Phone: Start: 02-05-2025 End: 02-05-[address] [facility] Start: 02-05-2025 End: 02-05-2025 ambulatory Tania West Facility:[facility] Start: 01-28-2025 End: 01-28-2025 ambulatory [facility] Facility:[facility] Start: 01-28-2025 End: 01-28-2025 Subsequent hospital visit by physician Pet [facility] Work Phone: CT Scan Comment on above: Neoplasm of lung [D4 9.1] Start: 01-25-2025 End: 01-25-[address] Tania West MD Work Phone: [facility] Work Phone: Start: 01-25-2025 End: 01-25-[address] Martha Kim MD -Laboratory, [place] Work Phone: Start: 01-25-2025 End: 01-25-2025 ambulatory Martha Kim Facility:[facility] Start: 01-21-2025 ambulatory [facility] Facility:[facility] Start: 01-21-2025 End: 01-21-2025 Subsequent hospital visit by physician Mri 2 [facility] (I-Stat/Lg Bore/1.5t) [facility] Comment on above: Malignant neoplasm o f upper lobe of right lung (HCC) [C34.11] Start: 01-19-2025 End: 01-19-[address] Tania West MD Work Phone: [facility] Work Phone: Start: 01-19-2025 End: 01-19-[address] Zhang Jose MD -Laboratory, [place] Work Phone: Start: 01-19-2025 End: 01-19-[address] Zhang Jose MD -[facility] Work Phone: Start: 01-19-2025 End: 01-19-2025 ambulatory Tania West Facility:[facility] Start: 01-19-2025 Non-patient / Non-visit Dr. Miah vega MD -[facility] Start: 01-19-2025 End: 01-19-2025 ambulatory Zhang Jose Facility:[facility] Start: 01-15-2025 End: 01-15-2025 Telephone encounter Miah Hinson MD Work Phone: [facility] Comment on above: Appointment (Appoint ment) Start: 01-14-2025 End: 01-14-2025 ambulatory Cathleen Eason CPR INSTRUCTOR Pulmonary Medicine Start: 01-14-2025 End: 01-15-2025 Telephone encounter Miah Hinson MD Work Phone: [facility] Comment on above: Appointment (Appoint ment) Start: 01-13-2025 End: 01-13-2025 Telephone encounter Dalia Augustine MD Work Phone: Pulmonary Medicine Comment on above: Office Notes Faxed Start: 01-11-2025 End: 01-11-2025 Telephone encounter Dalia Augustine MD Work Phone: Pulmonary Medicine Comment on above: Results Start: 01-08-2025 End: 01-08-2025 Telephone encounter Dalia Augustine MD Work Phone: Pulmonary Medicine Start: 01-04-2025 End: 01-04-2025 Telephone encounter Dalia Augustine MD Work Phone: Pulmonary Medicine Comment on above: Results Start: 12-30-2024 End: 12-30-2024 Chart abstracting Ronel Garces Research Coordinator Work Phone: Pulmonary Medicine Comment on above: Informed Consent (IR B [phone]) Start: 12-30-2024 End: 12-30-2024 ambulatory CAITLIN CARTER Facility:[facility] Start: 12-29-2024 End: 12-29-2024 Telephone encounter Dalia Augustine MD Work Phone: Pulmonary Medicine Comment on above: PFT Results ; Reques t Outside PFT Results Outside PFT Results Start: 12-29-2024 ambulatory Tania West Facility:[facility] Start: 12-28-2024 Encounter for other preprocedural examination TANIA WEST [facility] Start: 12-28-2024 End: 12-29-2024 Telephone encounter Dalia Augustine MD Work Phone: [facility] [place] Comment on above: Nm Pet Request Start: 12-28-2024 End: 12-28-[address] (I-Stat) [facility] Start: 12-28-2024 End: 12-28-2024 Subsequent hospital visit by physician Ct 2 Main Qb (I-Stat) Radiology Comment on above: Lung nodules [R91.8] Start: 12-28-2024 End: 12-28-2024 ambulatory BORIS EDGE Facility:[facility] Start: 12-28-2024 Encounter for other preprocedural examination TANIA WEST [facility] Start: 12-28-2024 End: 12-28-2024 ambulatory TANIA WEST Facility:[facility] Start: 12-28-2024 End: 12-28-2024 Office outpatient new 45 minutes Dalia Augustine MD Work Phone: Pulmonary Medicine Comment on above: Right upper lobe pul monary nodule (Primary Dx); Neoplasm of lung; Malignant neoplasm of upper lobe of right lung (HCC); Pre-operative examination Start: 12-28-2024 End: 12-28-2024 Preprocedural examination done Dalia Augustine MD Work Phone: [facility] Start: 12-14-2024 End: 12-15-2024 Telephone encounter Joana Hairston CT [facility] [id number] Comment on above: Appointment (PreOp Dede moreira) Received Outside [facility] Records Start: 12-10-2024 End: 12-10-2024 ambulatory Boris Edge MD, PhD Work Phone: Pulmonary Medicine Comment on above: Bronchoscopy Schedul ing (Initial Bronch Request ) Start: 12-10-2024 End: 12-10-2024 Patient encounter status Boris Edge MD, PhD Work Phone: [facility] Start: 12-10-2024 End: 12-10-2024 Telephone encounter Everardo Mayen Pulmonary Medicine Comment on above: Request Outside [facility] Records Start: 12-09-2024 End: 12-17-2024 Telephone encounter Everardo Mayen Pulmonary Medicine Comment on above: EBUS Referral Start: 12-02-2024 End: 12-02-2024 Patient encounter procedure Naomi QUEZADA -Laboratory, [place] Work Phone: Start: 12-02-2024 End: 12-02-2024 ambulatory Naomi West Facility:[facility] Start: 11-24-2024 End: 11-24-2024 Patient encounter procedure Naomi QUEZADA -Ultrasound, [facility] Work Phone: Start: 11-24-2024 End: 11-24-2024 ambulatory [facility] Facility:[facility] Start: 11-17-2024 ambulatory David Huynh Facility:[facility] Start: 11-17-2024 Non-patient / Non-visit Dr. David jauregui MD -[facility] Start: 11-17-2024 End: 11-17-2024 Patient encounter procedure Naomi QUEZADA -Cardiovascular Services Work Phone: Start: 11-17-2024 End: 11-17-2024 ambulatory Tania West Facility:[facility] Start: 11-03-2024 End: 11-03-2024 ambulatory Denia Obrien APRN.CNP Work Phone: Pulmonary Medicine Start: 10-30-2024 End: 10-30-[address] 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); S/P ascending aortic aneurysm repair; Lung nodule; Disorder of artery or arteriole (HCC); Thyroid nodule greater than or equal to 1.5 cm in diameter incidentally noted on imaging study Start: 10-29-2024 Encounter for other preprocedural examination TANIA WEST [facility] Start: 10-29-2024 End: 10-30-2024 ambulatory CRISTI ISAAC Facility:[facility] Start: 10-29-2024 End: 10-29-[address] (I-Stat) Work Phone: [facility] Start: 10-29-2024 End: 10-29-2024 Subsequent hospital visit by physician Isabela Main J (I-Stat) Work Phone: Radiology Comment on above: Dissection of ascend ing aorta (HCC) [I71.010] Start: 03-20-2024 End: 03-20-[address] Tania West Work Phone: [facility] Work Phone: Start: 03-20-2024 End: 03-20-[address] Tania West Work Phone: [facility] Work Phone: Start: 03-17-[address] Tania devine Work Phone: [facility]-Cardiovascular Services Work Phone: Start: 03-17-2024 Non-patient / Non-visit Dr. Damien West Work Phone: [facility] Start: 03-17-2024 End: 03-17-[address] Tania West Work Phone: [facility] Work Phone: Start: 03-17-2024 End: 03-17-[address] Tania West Work Phone: [facility]-Cardiovascular Services Work Phone: Start: 01-31-2024 End: 01-31-[address] Tania West Work Phone: [facility] Work Phone: Start: 01-31-2024 End: 01-31-[address] Tania West Work Phone: [facility] Work Phone: Start: 01-30-2024 End: 01-30-[address] Tania West Work Phone: [facility] Work Phone: Start: 01-30-2024 End: 01-30-[address] Tania West Work Phone: [facility] Work Phone: Start: 01-23-2024 End: 01-23-[address] Tania West Work Phone: [facility] Work Phone: Start: 01-15-2024 End: 01-15-2024 ambulatory [facility] Work Phone: Start: 01-15-2024 End: 01-15-2024 [facility] Start: 12-09-2023 End: 12-09-2023 [facility] Work [facility] Start: 11-08-2023 End: 11-08-2023 Emergency department patient visit Dr. Tania West Work Phone: [facility]-Emergency Department Work Phone: Start: 09-24-2023 End: 09-24-[address] Tania West Work Phone: [facility] Work Phone: Start: 09-20-2023 Patient encounter status Cristi Isaac MD Work Phone: [facility] Start: 09-20-2023 Telephone encounter Cristi graf MD Work Phone: Cardiothoracic Comment on above: Follow Up Start: 07-29-2023 End: 07-29-[address] Tania West Work Phone: [facility] Work Phone: Start: 07-29-2023 End: 07-29-[address] [facility] Start: 07-25-2023 End: 07-25-[address] Tania West Work Phone: [facility] Work Phone: Start: 04-13-2023 End: 04-13-2023 Emergency department patient visit Dr. Tania West Work Phone: [facility]-Emergency Department Work Phone: Start: 11-26-2022 End: 12-18-[address] Tania West Work Phone: [facility] Work Phone: Start: 11-26-2022 End: 12-18-[address] Tania West Work Phone: [facility]-Cardiac Rehab Start: 11-05-2022 End: 11-17-[address] Tania West Work Phone: [facility] Work Phone: Start: 11-05-2022 End: 11-17-[address] Tania West Work Phone: [facility]-Cardiac Rehab Start: 11-05-[address] Tania West Work Phone: [facility]-Card[facility] Re[facility] Start: 10-29-2022 End: 10-29-2022 Subsequent hospital visit by physician Ct 2 Main Qb (I-Stat) Radiology Comment on above: Dissection of thorac ic aorta [I71.019] Start: 10-22-[address] Tania West Work Phone: [facility]-Cardiac Rehab Start: 10-17-2022 End: 10-17-[address] Tania West Work Phone: [facility] Work Phone: Start: 10-17-2022 End: 10-17-[address] Tania West Work Phone: [facility]-Cardiac Rehab Start: 10-16-2022 Non-patient / Non-visit Dr. Damien West Work Phone: [facility] Start: 10-16-2022 End: 10-16-[address] Tania West Work Phone: [facility] Work Phone: Start: 10-16-2022 End: 10-16-[address] Tania West Work Phone: [facility]-Cardiovascular Services Start: 10-10-2022 End: 10-10-[address] Tania West Work Phone: [facility] Work Phone: Start: 10-10-2022 End: 10-10-[address] Tania West Work Phone: [facility] Start: 10-02-2022 End: 10-02-[address] Tania West Work Phone: [facility] Start: 09-11-2022 End: 09-11-[address] Tania West Work Phone: [facility] Start: 09-03-2022 Non-patient / Non-visit Dr. 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 (Primary Dx); S/P CABG x 4; 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al angiopathy without gangrene, without long-term current use of insulin (HCC); Essential hypertension; Postoperative pain Start: 08-30-2022 End: 08-30-2022 Subsequent hospital visit by physician Xr Chest Main J1 Work Phone: Radiology Comment on above: Surgery follow-up [Z 09] Start: 08-27-2022 Telephone encounter Cristi graf MD Work Phone: Cardiology Comment on above: Post Dc Program Call - Start: 08-24-2022 Telephone encounter Lisa Iyer RN NOC Comment on above: Follow Up Phone Call (RC Follow Up Call) Start: 08-21-2022 Orders Only Miguel celis MD Work Phone: Cardiology Comment on above: Dissection of aorta, unspecified portion of aorta (HCC) (Primary Dx); Essential hypertension Start: 08-16-2022 Non-patient / Non-visit Dr. Damien West Work Phone: [facility] Start: 08-16-2022 ambulatory Adrianna POWER RN.ELDERLY CAREGIVER Work Phone: Critical Care Start: 08-16-2022 End: 08-16-2022 Emergency department patient visit Dr. Tania West Work Phone: [facility]-Emergency Department Start: 08-16-2022 End: 08-16-[address] Tania West Work Phone: [facility] Start: 08-08-2022 Non-patient / Non-visit Dr. Damien West Work Phone: [facility] Start: 08-08-2022 End: 08-08-[address] Tania West Work Phone: [facility] Work Phone: Start: 08-08-2022 End: 08-08-[address] Tania West Work Phone: [facility]-Cardiovascular Services Start: 07-26-2022 End: 07-26-[address] Tania West Work Phone: [facility] Work Phone: Start: 07-26-2022 End: 07-26-[address] Tania West Work Phone: [facility]-Laboratory Start: 07-20-2022 End: 07-20-[address] Tania West Work Phone: [facility] Work Phone: Start: 07-20-2022 End: 07-20-[address] Tania West Work Phone: [facility]-Laboratory Start: 07-19-2022 End: 07-19-[address] Tania West Work Phone: [facility] Start: 03-29-2022 End: 03-29-[address] Tania West Work Phone: [facility]-Physical Therapy Start: 03-12-2022 End: 03-12-2022 Emergency department patient visit Dr. Tania West Work Phone: [facility]-Emergency Department Start: 03-01-[address] Tania West Work Phone: [facility]-Physical Therapy Start: 01-15-2022 End: 01-15-[address] Tania West Work Phone: [facility] Start: 12-14-2021 End: 12-14-[address] Tania West Work Phone: [facility] [place] Start: 01-07-[address] Tania West Work Phone: [facility] Start: 11-27-2018 End: 11-28-2018 Patient encounter procedure Brandon Clifford MD Work Phone: [facility] Work Phone: Procedures Date Procedure Procedure Detail Performing Clinician Start: 07-29-2025 Ct thorax w/o contra st material Kaylene Feliz MD Work Phone: Start: 03-05-2025 Pulmonary stress testing Elliot Lyman MD, PhD Work Phone: Start: 02-25-2025 Echo tthrc r-t 2d w/ wo m-mode complete rest&st Elliot Lyman MD, PhD Work Phone: Start: 02-25-2025 LVEF STRESS ECHO DOBUTAMINE Elliot Lyman MD, PhD Work Phone: Start: 01-28-[address] attenuation skull base mid-thigh Dalia Augustine MD Work Phone: Start: 12-28-2024 Ct thorax w/o contra st material Boris Edge MD, PhD Work Phone: Start: 11-24-2024 US scan of thyroid Dr. Tania West MD Work Phone: Start: 10-29-2024 Creatinine [Mass/vol ume] in Serum or Plasma [facility] Provider Start: 01-15-2024 Plain x-ray of pelvi s and lower extremity Start: 11-08-2023 Plain chest X-ray Dr. Gigi West Work Phone: Start: 11-08-2023 Bacteria identified in Blood by Culture Start: 11-08-2023 SARS-CoV-2 & FLU Ant igen (Rapid) Dr. Tania West Work Phone: Start: 11-08-2023 Urine culture Start: 11-08-2023 Viral antigen assay Start: 09-24-2023 Plain x-ray of hand Dr. Tania West Work Phone: Start: 04-13-2023 Pelvis X-ray Dr. Tania devine Work Phone: Start: 10-29-2022 Ct angiography chest w/contrast/noncontrast Colton Walter MARKETING ACCOUNT MANAGER.ELDERLY CAREGIVER Work Phone: Start: 08-16-2022 CT angiography of ch est with contrast Dr. Tania West Work Phone: Start: 08-08-2022 Plain chest X-ray Dr. Gigi West Work Phone: Start: 12-14-2021 Plain X-ray of hip Dr. Tania West Work Phone: Start: 03-10-2020 History of coronary artery bypass grafting S/P CABG x 4 Adrianna Aida MARKETING ACCOUNT MANAGER.ELDERLY CAREGIVER Work Phone: Start: 02-17-2020 History of coronary artery bypass grafting History of coronary artery bypass surgery Dr. Tania West Work Phone: Comment on above: CABG x4- FRAUSTO-LAD, R MAHAD-Diag, SVG-OM, SVG-R posterolateral branch @ [facility] 03/08/20 Start: 02-16-2020 Antibody screen Comment on above: Performed By: #### T &S #### [place] [id number] Start: 11-27-2018 End: 11-28-2018 BMI documented as [...] 11-28-2018 Pt tobacco screen rcvd tlk Brandon Clifford MD Work Phone: Start: 11-27-2018 End: 11-27-2018 Radiologic examination knee 1/2 views Brandon Clifford MD Work Phone: Start: 11-27-2018 End: 11-27-2018 Radiologic examination knee 3 views Brandon Clifford MD Work Phone: History of carotid endarterectomy S/P carotid endarterectomy Dr. Tania West MD Work Phone: History of carotid endarterectomy S/P carotid endarterectomy Naomi QUEZADA History of coronary artery bypass grafting S/P CABG x 4 Acacia Eng MARKETING ACCOUNT MANAGER.ELDERLY CAREGIVER Work Phone: Viral antigen assay Dr. Tania West Work Phone: Plan of Treatment Date Care Activity Detail Author Start: 04-03-2028 End: 04-03-2028 Nursing evaluation of patient and report 04/03/2028 7:00 AM EDT Nurse Visit Cardiothoracic [address] [place] [address] Main, Research Nurse [facility] [address] [place] [address] ph. [phone] SORT Study Cardiothoracic Comment on above: [phone]. [phone] SORT Study Start: 08-16-2027 LIPID SCREEN LIPID SCREEN [facility] Start: 04-05-2027 End: 04-05-2027 Nursing evaluation of patient and report 04/05/2027 7:00 AM EDT Nurse Visit Cardiothoracic [address] [place] [address] Main, Research Nurse Ri[address] [place] [address] ph. [phone] SORT Study Cardiothoracic Comment on above: ph. [phone] SORT Study Start: 04-13-2026 End: 04-13-2026 Nursing evaluation of patient and report 04/13/2026 7:00 AM EDT Nurse Visit Cardiothoracic [address] [place] [address] Main, Research Nurse [facility] [address] [place] [address] ph. [phone] SORT Study -survey check Cardiothoracic Comment on above: ph. [phone] SORT Study -survey check Start: 04-06-2026 End: 04-06-2026 Nursing evaluation of patient and report 04/06/2026 7:00 AM EDT Nurse Visit Cardiothoracic [address] [place] [address] Main, Research Nurse [facility] [address] [place] [address] ph. [phone] SORT Study Cardiothoracic Comment on above: ph. [phone] SORT Study Start: 12-28-2025 Screening for malignant neoplasm of lung Lung Cancer Screening [facility] Start: 10-29-2025 BP Controlled (<130/80) BP Controlled (<130/80) [facility] Start: 10-26-2025 End: 10-26-2025 Patient encounter procedure 10/26/2025 2:15 PM EST Appointment Radiology [address] [place] [id number] Dissection of ascending aorta (HCC) [I71.010] Radiology Comment on above: Dissection of ascending aorta (HCC) [I71 .010] Start: 10-26-2025 End: 10-26-2025 Patient encounter procedure Cardiology Comment on above: Dissection of ascending aorta (HCC) [I71 .010] 12 month follow-up Start: 10-15-2025 End: 10-15-2025 Nursing evaluation of patient and report 10/15/2025 7:00 AM EST Nurse Visit Cardiothoracic [address] [place] [address] Main, Research Nurse Riho [address] [place] [address] ph. [phone] SORT Study -survey check Cardiothoracic Comment on above: ph. [phone] SORT Study -survey check Start: 10-07-2025 End: 10-07-2025 Nursing evaluation of patient and report 10/07/2025 7:00 AM EST Nurse Visit Cardiothoracic [address] [place] [address] Main, Research Nurse Riho [address] [place] [address] ph. [phone] SORT Study Cardiothoracic Comment on above: [phone]. [phone] SORT Study Start: 08-17-2025 DIABETES SCREEN DIABETES SCREEN [facility] Start: 08-02-2025 End: 08-02-2025 Follow-up encounter 08/02/2025 9:30 AM EDT [facility] [address] [place] [address] Kaylene Feliz MD [address] [address] VV follow up Radiation Oncology Comment on above: VV follow up Start: 07-23-2025 End: 07-23-2025 Follow-up encounter 07/23/2025 3:00 PM EDT [facility] Radiation Oncology [address] [place] [address] Kaylene Feliz MD [address] [address] VV follow up Radiation Oncology Comment on above: VV follow up Start: 07-19-2025 Influenza vaccination Influenza Vaccine (#1) [facility] Start: 07-13-2025 End: 07-13-2025 Patient encounter procedure 07/13/2025 8:40 AM EDT Appointment Cat Scan [address] [place] [address] Malignant neoplasm of unspecified part of unspecified bronchus or lung (HCC) [C3.. Cat Scan Comment on above: Malignant neoplasm of unspecified part o f unspecified bronchus or lung (HCC) [C3.. Start: 07-12-2025 End: 04-29-2026 CT Chest WO contrast CT CHEST WO IVCON Radiology Routine Malignant neoplasm of unspecified part of unspecified bronchus or lung (HCC) Expected: 07/12/2025 (Approximate), Expires: 04/29/2026 [facility] Work Phone: Comment on above: Expected: 07/12/2025 (Approximate), Expi res: 04/29/2026 Start: 05-12-2025 End: 05-12-2025 Nursing evaluation of patient and report 05/12/2025 7:00 AM EDT Nurse Visit Cardiothoracic [address] [place], [place] [id number] Main, Research Nurse Ct [address] [place] [address] ph. [phone] SORT Study Cardiothoracic Comment on above: [phone]. [phone] SORT Study Start: 04-06-2025 End: 04-06-2025 Patient encounter procedure 04/06/2025 2:20 PM EDT Appointment Radiation Oncology [address] [place] [id number] Malik Cruz MD [address] [place] [address] F 5FX RUL *BELT* TU/THURS DLM *REQ PM* Radiation Oncology Comment on above: F 5FX RUL *BELT* TU/THURS DLM *REQ PM* Start: 04-06-2025 End: 04-06-2025 Patient encounter procedure 04/06/2025 9:30 AM EDT Appointment Radiation Oncology [address] [place] [address] Malik Cruz MD [address] [place] [address] 5FX RUL *BELT* TU/THURS DLM Radiation Oncology Comment on above: 5FX RUL *BELT* TU/THURS DLM Start: 04-01-2025 End: 04-01-2025 Patient encounter procedure Radiation Oncology Comment on above: 5FX RUL *BELT* TU/THURS DLM F 5FX RUL *BELT* TU/ THURS DLM *REQ PM* Start: 03-30-2025 End: 03-30-2025 Patient encounter procedure 03/30/2025 1:20 PM EDT Appointment Radiation Oncology [address] [place] [address] Lucio Crane MD [address] [place], [place] [id number] F 5FX RUL *BELT* TU/THURS DLM *REQ PM* Radiation Oncology Comment on above: F 5FX RUL *BELT* TU/THURS DLM *REQ PM* Start: 03-30-2025 End: 03-30-2025 Patient encounter procedure 03/30/2025 11:40 AM EDT Appointment Radiation Oncology [address] [place] [address] Lucio Crane MD [address] [place], [place] [id number] 5FX RUL *BELT* TU/THURS DLM Radiation Oncology Comment on above: 5FX RUL *BELT* TU/THURS DLM Start: 03-25-2025 End: 03-25-2025 Patient encounter procedure Radiation Oncology Comment on above: F 5FX RUL *BELT* TU/THURS DLM *REQ PM* EDGE 2 Start: 03-25-2025 End: 03-25-2025 Patient encounter procedure 03/25/2025 9:20 AM EDT Appointment Radiation Oncology [id number] [address] [place] [address] Kaylene Feliz MD [address] [id number] 5FX RUL *BELT* TU/THURS DLM Radiation Oncology Comment on above: 5FX RUL *BELT* TU/THURS DLM Start: 03-23-2025 End: 03-23-2025 Patient encounter procedure Radiation Oncology Comment on above: 5FX RUL *BELT* TU/THURS TIME OK DLM/SCHE DULED SORT Consent Approac h F 5FX RUL *BELT* TU/ THURS TIME OK DLM/SCHEDULED Start: 03-20-2025 End: 10-29-2025 US Thyroid gland US THYROID/PARATHYROID Radiology Routine Multinodular thyroid Expected: 03/20/2025, Expires: 10/29/2025 [facility] Work Phone: Comment on above: Expected: 03/20/2025, Expires: Start: 03-18-2025 Covid-19 Vaccine () Covid-19 Vaccine () [facility] Start: 03-05-2025 End: 03-21-2026 SIX MINUTE WALK SIX MINUTE WALK PFT Routine Dissection of thoracic aorta, unspecified part (HCC) 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al angiopathy without gangrene, without long-term current use of insulin (HCC) Personal history of malignant neoplasm of bronchus and lung Lung nodule Expected: 03/05/2025, Expires: 03/21/2026 [facility] Work Phone: Comment on above: Expected: 03/05/2025, Expires: Start: 03-05-2025 End: 02-19-2026 STRESS ECHO DOBUTAMINE STRESS ECHO DOBUTAMINE Cardiology Routine Dissection of thoracic aorta, unspecified part (HCC) 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al angiopathy without gangrene, without long-term current use of insulin (HCC) Personal history of malignant neoplasm of bronchus and lung Lung nodule Expected: 03/05/2025, Expires: 02/19/2026 [facility] Comment on above: Expected: 03/05/2025, Expires: Start: 03-05-2025 End: 03-05-2025 Patient encounter procedure 03/05/2025 1:40 PM EDT Office Visit [facility] [address] [place] [address] Elliot Lyman MD, PhD [address] [facility] [address] [place] [address] Dissection of thoracic aorta, unspecified part (HCC) [I71.019] [facility] Comment on above: Dissection of thoracic aorta, unspecifie d part (HCC) [I71.019] Start: 03-05-2025 End: 03-05-2025 ambulatory 03/05/2025 12:30 PM EDT Procedure Pulmonary Medicine [address] [address] 4, Pulm Fct Lab Main [address] [place] [address] Dissection of thoracic aorta, unspecified part (HCC) [I71.019] Pulmonary Medicine Comment on above: Dissection of thoracic aorta, unspecifie d part (HCC) [I71.019] Start: 02-25-2025 End: 02-25-2025 Patient encounter procedure Cardiology Comment on above: Dissection of thoracic aorta, unspecifie d part (HCC) [I71.019] CCN Sent Start: 02-09-2025 End: 02-09-2025 Patient encounter procedure 02/09/2025 9:30 AM EDT Office Visit [facility] [address] [place] [address] Miah Hinson MD 1 [facility] [address] [place], [place] [id number] New Patient Referral from Dalia Augustine MD ([phone]) - Malignant neoplasm of upper lobe of right lung *CT Chest 12/28/24* [facility] Comment on above: New Patient Referral from Ava Augustine MD ([phone]) - Malignant neoplasm of upper lobe of right lung *CT Chest 12/28/24* Start: 02-05-2025 End: 02-05-2025 Patient encounter procedure 02/05/2025 9:20 AM EDT Office Visit [facility] [address] [id number] Elliot Lyman MD, PhD [address] [place] [address] Neoplasm of lung [D49.1] [facility] Clinic Comment on above: Neoplasm of lung [D49.1] Start: 01-28-2025 End: 01-28-2025 ambulatory 01/28/2025 9:[address] Scan [address] [place], [place] [id number] NM PET/CT SKULL-THIGH INITIAL CT Scan Comment on above: NM PET/CT SKULL-THIGH INITIAL Start: 01-28-2025 End: 01-28-2025 Patient encounter procedure [facility] Comment on above: NM PET/CT SKULL-THIGH INITIAL Start: 01-21-2025 End: 01-21-2025 Patient encounter procedure 01/21/2025 6:20 AM EST Appointment [facility] [address] [place], [place] [id number] MRI BRAIN WO/W IVCON [93005 (CPT )] [facility] Comment on above: MRI BRAIN WO/W IVCON [35531 (CPT )] Start: 12-30-2024 End: 12-30-2024 Admission to same day surgery center Admitting Comment on above: BRONCHOSCOPY FLEXIBLE ADULT Start: 12-30-2024 End: 12-30-2024 [facility] incl fluor gdnce dx w/cell washg spx PULM LAB H23 Start: 12-30-2024 Subsequent hospital visit by physician Admitting Comment on above: Bronchiolar disease [J98.09] Start: 12-28-2024 End: 03-29-2025 Basic metabolic 2000 panel - Serum or Plasma [facility] Comment on above: Expected: 12/28/2024, Expires: Start: 12-28-2024 End: 03-29-2025 CBC panel - Blood by Automated count [facility] Comment on above: Expected: 12/28/2024, Expires: Start: 12-28-2024 End: 12-28-2024 ambulatory 12/28/2024 12:10 PM EST Results Only Cardiology [address] [id number] PreOp Testing Cardiology Comment on above: PreOp Testing Start: 12-28-2024 End: 12-28-2024 Patient encounter procedure Pulmonary Medicine Comment on above: New Consultation Lung nodules [R91.8] PreOp Testing Start: 11-18-2024 Advance Directive Discussion Advance Directive Discussion [facility] Start: 11-18-2024 Medicare Advantage Annual Wellness Visit Medicare Advantage Annual Wellness Visit [facility] Start: 11-13-2024 Covid-19 Vaccine () Covid-19 Vaccine () [facility] Start: 11-18-2023 Advance Directive Discussion Advance Directive Discussion [facility] Start: 11-08-2023 End: 11-08-2023 [facility] Start: 11-08-2023 End: 11-08-2023 Blood culture [facility] Start: 11-08-2023 Bacteria identified in Blood by Culture Blood Culture [facility] Start: 11-08-2023 Bacteria identified in Urine by Culture Urine Culture [facility] Start: 09-20-2023 End: 12-20-2023 CREATININE BLD CREATININE BLD Lab Routine Dissection of ascending aorta (HCC) Encounter for other preprocedural examination Expected: 09/20/2023, Expires: 12/20/2023 [facility] Work Phone: Comment on above: Expected: 09/20/2023, Expires: Start: 08-30-2023 BP CONTROLLED (<130/80) BP CONTROLLED (<130/80) [facility] Start: 08-16-2023 Hepatitis B surface antibody level LDL CHOLESTEROL [facility] Start: 07-19-2023 Covid-19 Vaccine () Covid-19 Vaccine () [facility] Start: 07-19-2023 Influenza vaccination Influenza Vaccine (#[facility]) [facility] Start: 02-13-2023 Hemoglobin A1c measurement HbA1C [facility] Start: 02-13-2023 Hemoglobin A1c/Hemoglobin.total in Blood HBA1C [facility] Start: 11-18-2022 Advance Directive Discussion Advance Directive Discussion [facility] Start: 11-18-2022 Depression Assessment Depression Assessment [facility] Start: 09-11-2022 Patient referral [facility] Work Phone: Start: 09-11-2022 Pneumococcal Vaccine: 50+ (4 of 4 - PCV20 or PCV21) Pneumococcal Vaccine: 50+ (4 of 4 - PCV20 or PCV21) [facility] Start: 09-11-2022 Pneumococcal Vaccine: 65+ (4 of 4 - PPSV23 or PCV20) Pneumococcal Vaccine: 65+ (4 of 4 - PPSV23 or PCV20) [facility] Start: 08-16-2022 [facility] Work Phone: Start: 07-19-2022 Influenza vaccination INFLUENZA (#1) [facility] Start: 05-18-2022 COVID-19 VACCINE (4 - Booster for Dillan series) COVID-19 VACCINE (4 - Booster for Dillan series) [facility] Start: 11-18-2021 ADVANCE DIRECTIVE DISCUSSION ADVANCE DIRECTIVE DISCUSSION [facility] Start: 11-18-2021 DEPRESSION ASSESSMENT DEPRESSION ASSESSMENT [facility] Start: 2021 PNEUMOCOCCAL: 65+ (1 - PCV) PNEUMOCOCCAL: 65+ (1 - PCV) [facility] Start: 02-10-2021 Screening for malignant neoplasm of lung Lung Cancer Screening [facility] Start: 09-11-2018 Pneumococcal Vaccine: 65+ (2 - PCV) Pneumococcal Vaccine: 65+ (2 - PCV) [facility] Start: 2016 Hepatitis B Vaccine (1 of 3 - Risk 3-dose series) Hepatitis B Vaccine (1 of 3 - Risk 3-dose series) [facility] Start: 2016 RSV Vaccine (1 - 1-dose 60+ series) RSV Vaccine (1 - 1-dose 60+ series) [facility] Start: 2016 RSV Vaccine (1 - Risk 60-74 years 1-dose series) RSV Vaccine (1 - Risk 60-74 years 1-dose series) [facility] Start: 2011 PROSTATE CANCER SCREENING DISCUSSION PROSTATE CANCER SCREENING DISCUSSION [facility] Start: 2011 Prostate specific antigen measurement Prostate Cancer Screening Discussion [facility] Start: 2006 SHINGRIX VACCINE (1 of 2) SHINGRIX VACCINE (1 of 2) [facility] Start: 2001 COLOGUARD (FIT-DNA) COLOGUARD (FIT-DNA) [facility] Start: 2001 Colonoscopy COLONOSCOPY [facility] Start: 2001 COLORECTAL CANCER SCREENING COLORECTAL CANCER SCREENING [facility] Start: [address] COLONOGRAPHY [facility] Start: 2001 FECAL OCCULT BLOOD FECAL OCCULT BLOOD [facility] Start: 2001 Prostate specific antigen measurement Prostate Cancer Screening Discussion [facility] Start: 2001 Screening for malignant neoplasm of colon [facility] Start: 2001 SIGMOIDOSCOPY SIGMOIDOSCOPY [facility] Start: 1975 Urine microalbumin profile [facility] Start: 1974 ANNUAL PCP TEAM CHRONIC DISEASE VISIT ANNUAL PCP TEAM CHRONIC DISEASE VISIT [facility] Start: 1974 Anxiety Screening Anxiety Screening [facility] Start: 1974 BP CONTROLLED (<130/80) BP CONTROLLED (<130/80) [facility] Start: 1974 Depression Screening Depression Screening [facility] Start: 1974 HEPATITIS C SCREENING HEPATITIS C SCREENING [facility] Start: 1974 Hepatitis C screening Hepatitis C Screening [facility] Start: 1966 3 comp foot exam completed DIABETIC FOOT EXAM [facility] Start: 1966 Diabetic foot examination Diabetic Foot Exam [facility] Start: 1966 Glaucoma screening Dilated Retinal Exam [facility] Start: 1966 Hepatitis B screening URINE ALBUMIN:CREATININE RATIO [facility] Start: 1966 Hepatitis C antibody, confirmatory test DILATED RETINAL EXAM [facility] Start: 1962 PNEUMOCOCCAL: 65+ (1 - PCV) PNEUMOCOCCAL: 65+ (1 - PCV) [facility] Start: 1956 ABDOMINAL AORTIC ANEURYSM SCREENING ABDOMINAL AORTIC ANEURYSM SCREENING [facility] Start: 1956 Abdominal aortic aneurysm screening Abdominal Aortic Aneurysm Screening [facility] End: 01-09-2026 CT Chest WO contrast CT CHEST WO IVCON Radiology Routine Lung nodules Pre-op testing 1 Occurrences starting 12/10/2024 until 01/09/2026 [facility] Comment on above: 1 Occurrences starting 12/10/2024 until 01/09/2026 CT Guidance for radi ation treatment of Unspecified body region CT SIM PLANNING RADIATION ONCOLOGY Radiology Routine Malignant neoplasm of upper lobe of right lung (HCC) Ordered: 03/16/2025 [facility] Work Phone: Comment on above: Ordered: 03/16/2025 CTA Chest vessels W contrast IV CTA CHEST (GATED) W IVCON Radiology Routine Dissection of ascending aorta (HCC) S/P ascending aortic aneurysm repair Lung nodule Disorder of artery or arteriole (HCC) Encounter for other preprocedural examination 10/29/2024 9:38 AM EST [facility] Work Phone: End: 11-28-2025 CTA Chest vessels W contrast IV CTA CHEST (GATED) W IVCON Radiology Routine Dissection of ascending aorta (HCC) S/P ascending aortic aneurysm repair Lung nodule Disorder of artery or arteriole (HCC) 1 Occurrences starting 10/29/2024 until 11/28/2025 [facility] Work Phone: Comment on above: 1 Occurrences starting 10/29/2024 until 11/28/2025 End: 10-19-2024 CTA CHEST/ABD/PEL (GATED) W IVCON CTA CHEST/ABD/PEL (GATED) W IVCON Radiology Routine Dissection of ascending aorta (HCC) Encounter for other preprocedural examination 1 Occurrences starting 09/20/2023 until 10/19/2024 [facility] Work Phone: Comment on above: 1 Occurrences starting 09/20/2023 until 10/19/2024 End: 08-21-2023 ECG COMPLETE ECG COMPLETE ECG Routine Dissection of aorta, unspecified portion of aorta (HCC) Essential hypertension 1 Occurrences starting 08/21/2022 until 08/21/2023 [facility] Work Phone: Comment on above: 1 Occurrences starting 08/21/2022 until 08/21/2023 End: 12-10-2025 ECG COMPLETE ECG COMPLETE ECG STAT Lung nodules Pre-op testing 1 Occurrences starting 12/10/2024 until 12/10/2025 [facility] Work Phone: Comment on above: 1 Occurrences starting 12/10/2024 until 12/10/2025 End: 08-21-2023 Echocardiography ECHO Cardiology Routine Dissection of aorta, unspecified portion of aorta (HCC) Essential hypertension 1 Occurrences starting 08/21/2022 until 08/21/2023 [facility] Work Phone: Comment on above: 1 Occurrences starting 08/21/2022 until 08/21/2023 End: 10-29-2025 Echocardiography ECHO Cardiology Routine Dissection of ascending aorta (HCC) S/P ascending aortic aneurysm repair Lung nodule Disorder of artery or arteriole (HCC) 1 Occurrences starting 10/29/2024 until 10/29/2025 [facility] Comment on above: 1 Occurrences starting 10/29/2024 until 10/29/2025 End: 01-27-2026 LUNG DIFFUSION CAPACITY (DLCO) LUNG DIFFUSION CAPACITY (DLCO) PFT Routine Right upper lobe pulmonary nodule Neoplasm of lung 1 Occurrences starting 12/28/2024 until 01/27/2026 [facility] Comment on above: 1 Occurrences starting 12/28/2024 until 01/27/2026 End: 01-27-2026 MR Brain WO and W contrast IV MRI BRAIN WO/W IVCON Radiology Routine Malignant neoplasm of upper lobe of right lung (HCC) 1 Occurrences starting 12/28/2024 until 01/27/2026 [facility] Comment on above: 1 Occurrences starting 12/28/2024 until 01/27/2026 MR Brain WO and W contrast IV MRI BRAIN WO/W IVCON Radiology Routine Malignant neoplasm of upper lobe of right lung (HCC) 01/21/2025 6:51 AM EST [facility] Work Phone: Patient Education [facility] Work Phone: Patient referral [facility] Work Phone: End: 01-27-2026 PET+CT Guidance for localization of tumor of Skull base to mid-thigh-- W [id number] IV NM PET/CT SKULL-THIGH INITIAL Radiology Routine Neoplasm of lung 1 Occurrences starting 12/28/2024 until 01/27/2026 [facility] Work Phone: Comment on above: 1 Occurrences starting 12/28/2024 until 01/27/2026 End: 10-13-2022 Radiologic exam chest 2 views [facility] Work Phone: Comment on above: 1 Occurrences starting 08/30/2022 until 08/30/2022 End: 02-14-2026 SIX MINUTE WALK SIX MINUTE WALK PFT Routine Malignant neoplasm of lung, unspecified laterality, unspecified part of lung (HCC) 1 Occurrences starting 01/15/2025 until 02/14/2026 [facility] Work Phone: Comment on above: 1 Occurrences starting 01/15/2025 until 02/14/2026 End: 01-27-2026 SPIROMETRY - BASELINE AND POST DILATOR SPIROMETRY - BASELINE AND POST DILATOR PFT Routine Right upper lobe pulmonary nodule Neoplasm of lung 1 Occurrences starting 12/28/2024 until 01/27/2026 [facility] Comment on above: 1 Occurrences starting 12/28/2024 until 01/27/2026 [facility] Work Phone: XR Chest PA and Lateral [facility] Work Phone: [facility] Immunizations Immunization Date Immunization Notes Care Provider [facility] 09-18-2024 influenza virus vaccine, unspecified formulation Elliot Lyman MD, PhD Work Phone: [facility] 09-27-2022 influenza virus vaccine, unspecified formulation Cristi Isaac MD Work Phone: [facility] No information available. Carmel Mcdonnell AT [facility] Work Phone: Payers Date Payer Category Payer Self-pay [id number] 2023 Medicare (Managed Care) [employer] [id number] 2023 Private Health Insurance [id number] 2021 Medicare [id number] 2016 Unknown [id number] 2013 Unknown [id number] Medicare [id number] Unknown [id number] Unknown [id number]. 2.462 Unknown [id number]. 2.462 Unknown [id number] [id number]. 2.462 Unknown [id number] [id number]. 2.462 Unknown [id number] [id number]. 2.462 Unknown [id number] [id number]. 2.462 Unknown [id number] [id number]. 2.462 Unknown [id number] 2.16840.1.113426.3.579. 2.462 Unknown [id number] [id number]. 2.462 Unknown [id number] [id number]. 2.462 Unknown [id number] [id number]. 2.462 Unknown [id number] [id number]. 2.462 Unknown [id number] [id number]. 2.462 Unknown [id number] [id number]. 2.462 Unknown [id number] [id number]. 2.462 Unknown [id number]. 2.462 Social History Date Type Detail Facility Start: 03-12-2022 End: 01-23-2024 Tobacco smoking status [facility] Unknown if ever smoked [facility] Start: 01-01-2021 Spouse/ Signif icant Other [facility] Start: 1955 Sex Assigned At Male W [facility] Start: 01-21-2020 End: 07-06-2025 Tobacco smoking status VAIS Ex-smoker [facility] Start: 01-16-1965 End: 01-16-2020 History of tobacco use Current smoker [facility] Start: 01-16-1965 End: 01-16-2020 History of tobacco use Cigarette Smoker [facility] Start: 01-21-2020 End: 10-29-2023 Cigarettes smoked current (pack per day) - Reported 1.5 [facility] Work Phone: Start: 01-21-2020 End: 10-29-2024 Tobacco use and exposure User of smokeless tobacco [facility] History of tobacco use Snuff User [facility] Start: 04-13-2020 End: 03-15-2025 Alcohol intake Current drinker of alcohol (finding) [facility] Start: 03-07-2020 History SDOH Alcohol Comment 1-2 daily [facility] Start: 03-09-2020 History SDOH Financial 5 [facility] Start: 03-09-2020 History SDOH Food Worry 1 [facility] Start: 03-09-2020 Education 12 [facility] Start: 1955 Sex Assigned At Not on file [facility] Start: 08-06-2022 End: 08-30-2022 Exposure to SARS-CoV-2 (event) Not sure [facility] Start: 08-30-2022 End: 10-29-2023 Tobacco use panel [facility] Work Phone: Start: 10-19-2012 How hard is it for you to pay for the very basics like food, housing, medical care, and heating Not hard at all [facility] Work Phone: (I/We) worried whether (my/our) food would run out before (I/we) got money to buy more. Never true [facility] Work Phone: Start: 01-19-2025 Tobacco smoking status NHIS Smokes tobacco daily (finding) [facility] Start: 03-31-2024 Cigarettes Cigarettes [facility] Start: 02-01-2025 End: 03-01-2025 Sex Male (finding) [facility] NEGATED: Highlighted rowStart: 11-27-2018 End: 11-27-2018 Alcohol use ETOH USE Yes [facility] Work Phone: NEGATED: Highlighted rowStart: 11-27-2018 End: 11-27-2018 Assertion Current every day smoker [facility] Work Phone: NEGATED: Highlighted rowStart: 11-27-2018 End: 11-27-2018 Details of drug misuse behavior DRUG USE No [facility] Work Phone: NEGATED: Highlighted rowStart: 11-27-2018 End: 11-27-2018 Tobacco use and exposure SMOK ADVICE Yes [facility] Work Phone: Medical Equipment Procedure Code Equipment Code Equipment Origin al Text Equipment Identifier Dates Endarterectomy, carotid Plant polysaccharide haemostatic agent, bioabsorbable [id number] FDA Start: 04-27-2024 Endarterectomy, carotid Cardiovascular patch, animal-derived ()[id number] FDA Start: 04-27-2024 Endarterectomy, carotid Ligation clip, metallic [id number] FDA Start: 04-27-2024 Endarterectomy, carotid Ligation clip, metallic [id number] FDA Start: 04-27-2024 Endarterectomy, carotid Ligation clip, metallic [id number] FDA Start: 04-27-2024 Plate Sternalock Vivek Bone 8 Hole Sternum - [id number] Start: 03-08-2020 Screw Sternalock Vivek 2.4mm Gold 12mm Bone Self Drill Lock Primary Closure - [id number] Start: 03-08-2020 Check BS [address] art: 03-14-2020 End: 08-16-2022 Comment on above: Check BS 3 times a d ay Graft Hemashield [place] 30mm 10mm 1 Branch 2 Velour Collagen Polyester 50 - [id number] Start: 08-17-2022 [place] Thk1.65mm P tfe 4x.5in Cardiovascular Sterile - [id number] Start: 08-17-2022 Functional Status Date Assessment Result Facility 03-14-2020 Are you deaf, or do you have serious difficulty hearing No 03/14/2020 11:13 AM Carmel Stein RN No [facility] 03-14-2020 Are you blind, or do you have serious difficulty seeing, even when wearing glasses No 03/14/2020 11:13 AM Carmel Stein RN No [facility] 03-14-2020 Do you have serious difficulty walking or climbing stairs No 03/14/2020 11:13 AM Carmel Stein RN [facility] 03-14-2020 Do you have difficul ty dressing or bathing No 03/14/2020 11:13 AM Carmel Stein RN No [facility] 03-14-2020 Because of a physica l, mental, or emotional condition, do you have difficulty doing errands alone such as visiting a physician's office or shopping No 03/14/2020 11:13 AM EDT Carmel Campuzano RN No [facility] Mental Status Date Assessment Result Facility 11-08-2023 Cognitive function Level Of Cons ciousness Awake;Alert;Appropriate;Fol lows Commands [facility] Work Phone: 08-16-2022 Cognitive function Level Of Cons ciousness Awake;Alert;Appropriate;Fol lows Commands [facility] Work Phone: 03-12-2022 Cognitive function Voice/Name [facility] Work Phone: 03-14-2020 Because of a physica l, mental, or emotional condition, do you have serious difficulty concentrating, remembering, or making decisions No 03/14/2020 11:13 AM EDT Carmel Campuzano RN No [facility] Clinical Notes 12-14-2013 to 08-02-2025 Kaylene Feliz MD - 08/02/2025 9:46 AM Delfino Cortez, RT(R) - 07/29/2025 3:00 PM EDT Note Date & Type Note Facility 08-02-2025 Note HNO ID: [id number] Author: KAYLENE FELIZ MD Service: ? Author Type: Physician Type: Progress Notes Filed: 08/02/2025 10:34 Note Text: Radiation Oncology - [facility] Follow Up Note PATIENT NAME: Yari Lopez PATIENT DIAGNOSIS: 70 year old male with [id number] adenocarcinoma or the RUL (KRAS mutation, PD L1 2%), high risk operable (prior CABG, aortic dissection surgically corrected, carotid stenosis surgically corrected) s/p SBRT (50 Gy/5 fx) completed 04/06/25. INTERVAL HISTORY: [facility] They have consented to this video encounter. Overall he reports he is generally well since treatment, though did have significant postradiation fatigue. This is gradually improving towards baseline and nearly resolved. He was able to maintain his work schedule during this time, however had minimal energy remaining for other activities. Also feels like he might have had a mild exacerbation of his underlying dyspnea, though able to complete all of his activities and walking regularly with his . Similarly feels this is gradually improving towards baseline. Discussed options of short-term steroid pulse, though already on 10 mg of prednisone daily and is this is improving with time we have elected to just continue to follow. Otherwise denies chest pain, bone pain, cough or neurological changes. Weight and appetite at baseline. On review of imaging 07/29/2025 CT chest demonstrates favorable early response with reduction in size of the treated right upper lobe neoplasm. Mild early evolution of surrounding postradiation changes. No evidence of adenopathy. Several scattered bilateral indeterminant subsolid lung nodules remain stable. ALLERGIES Allergen Reactions Penicillins Swelling MEDICATIONS: predniSONE (DELTASONE) 10 mg tablet Take 10 mg by mouth once daily. methotrexate 2.5 mg tablet Take 2.5 mg by mouth every Saturday. 5 tablets 1x a week on Saturdays folic acid 1 mg tablet Take 1 mg by mouth once daily. losartan (COZAAR) 25 mg tablet Take a half tablet by mouth daily with lunch. aluminum-magnesium hydroxide-simethicone (MAALOX,MYLANTA,MAG-AL PLUS) 200-200-20 mg/5 mL suspension Take 30 mL by mouth as needed (Second Line Therapy). atorvastatin (LIPITOR) 40 mg tablet Take 1 tablet by mouth daily at bedtime. guaiFENesin (MUCINEX) 600 mg 12 hr tablet Take 1 tablet by mouth every 12 hours as needed (cough). lidocaine (SALONPAS) 4 % patch Apply 1 Patch as directed once daily. metoprolol tartrate, short acting, (LOPRESSOR) 50 mg [...] Take 2,000 Units by mouth once daily. [DISCONTINUED] buPROPion XL (WELLBUTRIN XL) 300 mg 24 hr tablet Take 300 mg by mouth once daily. REVIEW OF SYSTEMS: GENERAL: SEE HPI. HEENT: Negative for sudden vision or hearing changes. NECK: Negative for masses in the neck. RESPIRATORY: SEE HPI. CARDIAC: Negative for chest pain, palpitations, murmurs, or syncopal episodes. GI: Negative for nausea, vomiting, diarrhea, constipation, blood per rectum, or melena. : Negative for dysuria, hematuria, urgency, frequency or incontinence. MUSCULOSKELETAL: Negative for limitations in movement, pain, or swelling. NEURO: Negative for dizziness, headache, weakness or numbness. HEMATOLOGIC: Negative for bleeding or easy bruising. SKIN: Negative for rashes or other skin changes. PHYSICAL EXAM: Virtual visit KPS: 80 General Appearance: Alert and oriented. No acute distress. Remainder of exam deferred for counseling purposes. TOXICITY ASSESSMENT CTC4: Grade 1 acute fatigue and mild dyspnea resolving to baseline ASSESSMENT/PLAN: Clinically doing well, with improvement over time of acute fatigue and mild dyspnea in the immediate posttreatment period resolving towards baseline. CT demonstrates favorable response in the treated tumor, no evidence of new or active disease. We will see him again in 3-4 months for followup (coordinate with his upcoming October scheduled cardiology appointments). Signed by: Kaylene Feliz MD Medical Decision Making: Problems: H (more content not included)... [facility] 08-02-2025 History of Present illness Narrative Radiation Oncology - [facility] Follow Up Note PATIENT NAME: Yari Lopez PATIENT DIAGNOSIS: 70 year old male with [id number] adenocarcinoma or the RUL (KRAS mutation, PD L1 2%), high risk operable (prior CABG, aortic dissection surgically corrected, carotid stenosis surgically corrected) s/p SBRT (50 Gy/5 fx) completed 04/06/25. INTERVAL HISTORY: Mr. Lopez is seen today by [facility] MyChart Zoom video virtual visit. They have consented to this video encounter. Overall he reports he is generally well since treatment, though did have significant postradiation fatigue. This is gradually improving towards baseline and nearly resolved. He was able to maintain his work schedule during this time, however had minimal energy remaining for other activities. Also feels like he might have had a mild exacerbation of his underlying dyspnea, though able to complete all of his activities and walking regularly with his . Similarly feels this is gradually improving towards baseline. Discussed options of short-term steroid pulse, though already on 10 mg of prednisone daily and is this is improving with time we have elected to just continue to follow. Otherwise denies chest pain, bone pain, cough or neurological changes. Weight and appetite at baseline. On review of imaging 07/29/2025 CT chest demonstrates favorable early response with reduction in size of the treated right upper lobe neoplasm. Mild early evolution of surrounding postradiation changes. No evidence of adenopathy. Several scattered bilateral indeterminant subsolid lung nodules remain stable. ALLERGIES Allergen Reactions Penicillins Swelling MEDICATIONS: predniSONE (DELTASONE) 10 mg tablet Take 10 mg by mouth once daily. methotrexate 2.5 mg tablet Take 2.5 mg by mouth every Saturday. 5 tablets 1x a week on Saturdays folic acid 1 mg tablet Take 1 mg by mouth once daily. losartan (COZAAR) 25 mg tablet Take a half tablet by mouth daily with lunch. aluminum-magnesium hydroxide-simethicone (MAALOX,MYLANTA,MAG-AL PLUS) 200-200-20 mg/5 mL suspension Take 30 mL by mouth as needed (Second Line Therapy). atorvastatin (LIPITOR) 40 mg tablet Take 1 tablet by mouth daily at bedtime. guaiFENesin (MUCINEX) 600 mg 12 hr tablet Take 1 tablet by mouth every 12 hours as needed (cough). lidocaine (SALONPAS) 4 % patch Apply 1 Patch as directed once daily. metoprolol tartrate, short acting, (LOPRESSOR) 50 mg [...] Take 2,000 Units by mouth once daily. [DISCONTINUED] buPROPion XL (WELLBUTRIN XL) 300 mg 24 hr tablet Take 300 mg by mouth once daily. REVIEW OF SYSTEMS: GENERAL: SEE HPI. HEENT: Negative for sudden vision or hearing changes. NECK: Negative for masses in the neck. RESPIRATORY: SEE HPI. CARDIAC: Negative for chest pain, palpitations, murmurs, or syncopal episodes. GI: Negative for nausea, vomiting, diarrhea, constipation, blood per rectum, or melena. : Negative for dysuria, hematuria, urgency, frequency or incontinence. MUSCULOSKELETAL: Negative for limitations in movement, pain, or swelling. NEURO: Negative for dizziness, headache, weakness or numbness. HEMATOLOGIC: Negative for bleeding or easy bruising. SKIN: Negative for rashes or other skin changes. PHYSICAL EXAM: Virtual visit KPS: 80 General Appearance: Alert and oriented. No acute distress. Remainder of exam deferred for counseling purposes. TOXICITY ASSESSMENT CTC4: Grade 1 acute fatigue and mild dyspnea resolving to baseline ASSESSMENT/PLAN: Clinically doing well, with improvement over time of acute fatigue and mild dyspnea in the immediate posttreatment period resolving towards baseline. CT demonstrates favorable response in the treated tumor, no evidence of new or active disease. We will see him again in 3-4 months for followup (coordinate with his upcoming October scheduled cardiology appointments). Signed by: Kaylene Feliz MD Medical Decision Making: Problems: High: Illness/injury w/ threat to life/body function Risk: Moderate: Moderate risk from testing/treatment Medical Decision Making Level: 4 - Moderate documented in this encounter [facility] 07-29-2025 History of Present illness Narrative Radiology Service Progress Note PATIENT NAME: Yari Lopez DATE OF SERVICE: July 29, 2025 TIME: 3:55 PM PATIENT IDENTITY VERIFICATION COMPLETED USING TWO (2) IDENTIFIERS: Name and Date of confirmed by patient verbally. FALL SCREENING: Has the patient had 2 falls in the last year or 1 fall with injury or currently using an Ambulatory Assistive Device (Walker, Cane, Wheelchair, Crutches, etc.)? No PATIENT GENDER DATA: Assigned male at PATIENT RELEVANT IMPLANT DATA REVIEWED: Yes PATIENT PRESENTS WITH AN IMPLANTABLE OR ATTACHED ELECTRONIC SERVICE TECHNICIAN: No RADIOLOGY DEPARTMENT: CT; Exam(s) Completed: Chest. Anesthesia: No PERIPHERAL IV DATA: Not applicable SIGNED BY: RT Autumn(Brown) July 29, 2025 3:55 PM documented in this encounter [facility] 07-29-2025 Note HNO ID: [id number] Author: DELFINO MULLER RT(Brown) Service: ? Author Type: It Infrastructure Manager Type: Progress Notes Filed: 07/29/2025 15:55 Note Text: Radiology Service Progress Note PATIENT NAME: Yari Lopez DATE OF SERVICE: July 29, 2025 TIME: 3:55 PM PATIENT IDENTITY VERIFICATION COMPLETED USING TWO (2) IDENTIFIERS: Name and Date of confirmed by patient verbally. FALL SCREENING: Has the patient had 2 falls in the last year or 1 fall with injury or currently using an Ambulatory Assistive Device (Walker, Cane, Wheelchair, Crutches, etc.)? No PATIENT GENDER DATA: Assigned male at PATIENT RELEVANT IMPLANT DATA REVIEWED: Yes PATIENT PRESENTS WITH AN IMPLANTABLE OR ATTACHED ELECTRONIC SERVICE TECHNICIAN: No RADIOLOGY DEPARTMENT: CT; Exam(s) Completed: Chest. Anesthesia: No PERIPHERAL IV DATA: Not applicable SIGNED BY: RT Autumn(R) July 29, 2025 3:55 PM [facility] 07-06-2025 Evaluation note Diagnosis Onset Date Resolution Carotid arterial disease acute July 06, 2025 8:18am S/P carotid endarterectomy acute July 06 8:[address] [place] [address] Work Phone: 1(247) 293-936308-15-2025 NoteHNO ID: [id number] Author: KYUNG DIAMOND, Research Coordinator Service: ? Author Type: Research Type: Progress Notes Filed: 07/02/2025 13:01 Note Text: IRB# [id number] Comparing the Effectiveness of Surgery versus Stereotactic Body Radiation Therapy for Stage I Non-Small Cell Lung Cancer PI: Dr. Elliot Lyman I telephoned the patient regarding the outstanding questionnaire assessments related to the 1 Month follow-up time point for the SORT Study that he had on 05/12/2025. I informed him that the PROMIS surveys were sent via email today. Patient states he will look for the survey invitation in his email when he gets home from work today. Window for 1 Month time point is 05/04/2025 - 08/11/2025. House Designer Kyung Diamond Pager #[phone]08-15-2025 History of Present illness Narrative* Kyung Diamond, Research Coordinator - 07/02/2025 12:45 PM EDT IRB# [id number] Comparing the Effectiveness of Surgery versus Stereotactic Body Radiation Therapy for Stage I Non-Small Cell Lung Cancer PI: Dr. Elliot Lyman I telephoned the patient regarding the outstanding questionnaire assessments related to the 1 Monthfollow-up time point for the SORT Study that he had on 05/12/2025. I informed him that the PROMIS surveys were sent via email today. Patient states he will look for the survey invitation in his email when he gets home from work today. Window for 1 Month time point is 05/04/2025 - 08/11/2025. House Designer Kyung Diamond Pager #[phone] documented in this encounter[facility]25 NoteHNO ID: [id number] Author: ?, ?, ? Service: ? Author Type: ? Type: Progress Notes Filed: 05/12/2025 13:22 Note Text: IRB# [id number] Comparing the Effectiveness of Surgery versus Stereotactic Body Radiation Therapy for Stage I Non-Small Cell Lung CancePI: Dr. Elliot Lyman Study Visit: Follow-up I telephoned the patient for the 1 month follow up for the SORT Study. Reaffirmed that the patient still wishes to participate in the study and continues to consent to the study. Has the patient had any changes in his health since the last study visit? NO Has the patient had any outside hospitalizations/ER visits: NO Discussed protocol defined reproductive requirements and risks. Patient verbalized understanding. Cancer Recurrence (not for 1 month) assessment completed per protocol: NO PROMIS surveys sent via email and to be completed YES Discussed with the patient the importance of follow up in the study. He verbalized understanding. Next study visit will be in 5 months. Patient contact information reaffirmed and updated. Coordinator contact information provided to the patient. Education provided: Protocol required tests/procedures, Follow up requirements/schedule. Materials dispensed: None House Designer: Camila Leger RN Pager # [phone] Clinic [facility] Hospital06-25-2025 History of Present illness Narrative* Camila Leger - 05/12/2025 1:13 PM EDT IRB# [id number] Comparing the Effectiveness of Surgery versus Stereotactic Body Radiation Therapy for Stage I Non-Small Cell Lung CancePI: Dr. Elliot Lyman Study Visit: Follow-up I telephoned the patient for the 1 month follow up for the SORT Study. Reaffirmed that the patient still wishes to participate in the study and continues to consent to the study. Has the patient had any changes in his health since the last study visit? NO Has the patient had any outside hospitalizations/ER visits: NO Discussed protocol defined reproductive requirements and risks. Patient verbalized understanding. Cancer Recurrence (not for 1 month) assessment completed per protocol: NO PROMIS surveys sent via email and to be completed YES Discussed with the patient the importance of follow up in the study. He verbalized understanding. Next study visit will be in 5 months. Patient contact information reaffirmed and updated. Coordinator contact information provided to the patient. Education provided: Protocol required tests/procedures, Follow up requirements/schedule. Materials dispensed: None House Designer: Camila Leger RN Pager # [phone] documented in this encounter[facility] History of Present illness Narrative* Kaylene Feliz MD - 04/08/2025 12:00 AM EDT YARI LOPEZ [id number] 04/08/2025 [facility] Department of Radiation Oncology [facility] RADIATION ONCOLOGY: COMPLETION NOTE DATE OF SIMULATION: 03/16/2025 DATES OF TREATMENT: 03/23/2025 to 04/06/2025 TREATMENT MACHINE: Edge1 , Edge2 TREATMENT AREA: RUL NSCLC DIAGNOSIS: 69 year old male with [id number] adenocarcinoma (KRAS mutation, PD L1 2%), high risk operable (prior CABG, aortic dissection surgically corrected, carotid stenosis surgically corrected). CONCURRENT THERAPY: None. DELIVERED DOSE: The RUL NSCLC PTV received a total dose of 5000 cGy in 5 fractions at 1000 cGy/fraction prescribed to Max Dose at 75.6% IDL using 6 MV photons with SBRT Coplanar VMAT technique; CBCT daily. For additional details regarding dose and treatment plan please contact the Radiation Oncologist ELAPSED DAYS: 14 TOLERANCE: At last on-treatment visit, his toxicity was summarized as: Fatigue: grade 0 - No symptoms Weight loss: grade 0 - No weight loss Nausea:Grade 0 - No Symptoms Radiation Dermatitis:grade 0 - No symptoms Dysphagia: grade 0 - No symptoms Esophageal Pain: Grade 0 - No symptoms Dyspnea: grade 0 (No symptoms) RESPONSE: To be assessed in outpatient clinic in 3 months with imaging. Staff Physician Kaylene Feliz M.D 0:22 PM documented in this encounterSelect [facility]-22-2025 NoteHNO ID: [id number] Author: KAYLENE FELIZ MD Service: Radiation Oncology Author Type: Physician Type: Progress Notes Filed: 04/12/2025 22:22 Note Text: YARI LOPEZ [id number] 04/08/2025 [facility] Department of Radiation Oncology [facility] RADIATION ONCOLOGY: COMPLETION NOTE DATE OF SIMULATION: 03/16/2025 DATES OF TREATMENT: 03/23/2025 to 04/06/2025 TREATMENT MACHINE: Edge1 , Edge2 TREATMENT AREA: RUL NSCLC DIAGNOSIS: 69 year old male with [id number] adenocarcinoma (KRAS mutation, PD L1 2%), high risk operable (prior CABG, aortic dissection surgically corrected, carotid stenosis surgically corrected). CONCURRENT THERAPY: None. DELIVERED DOSE: The RUL NSCLC PTV received a total dose of 5000 cGy in 5 fractions at 1000 cGy/fraction prescribed to Max Dose at 75.6% IDL using 6 MV photons with SBRT Coplanar VMAT technique; CBCT daily. For additional details regarding dose and treatment plan please contact the Radiation Oncologist ELAPSED DAYS: 14 TOLERANCE: At last on-treatment visit, his toxicity was summarized as: Fatigue: grade 0 - No symptoms Weight loss: grade 0 - No weight loss Nausea:Grade 0 - No Symptoms Radiation Dermatitis:grade 0 - No symptoms Dysphagia: grade 0 - No symptoms Esophageal Pain: Grade 0 - No symptoms Dyspnea: grade 0 (No symptoms) RESPONSE: To be assessed in outpatient clinic in 3 months with imaging. Staff Physician Kaylene Feliz M.D 0:22 PM Electronically SignedC[facility] Clinic [facility]05-08-2025 NoteHNO ID: [id number] Author: KAYLENE FELIZ MD Service: ? Author Type: Physician Type: Progress Notes Filed: 03/30/2025 12:23 Note Text: Radiation Oncology - On Treatment Review (OTR) Note PATIENT NAME: Yari Lopez PATIENT DIAGNOSIS: : 69 year old male with [id number] adenocarcinoma (KRAS mutation, PD L1 2%), high risk operable (prior CABG, aortic dissection surgically corrected, carotid stenosis surgically corrected). PROTOCOL: no COURSE: definitive and SBRT (stereotactic body radiotherapy) Current dose: 2000 cGy in 2 fx Planned dose: 5000 cGy in 5 fx SUBJECTIVE: Mr. Lopez was seen in clinic today for OTV. Tolerating treatment well. Denies fatigue at this time. Discussed possible side effects, treatment plan and follow up plan. Above completed by Bruce Cervantes RN Above, no acute changes with treatment. Last 5 Encounter Wt Readings: Date: Wt: 03/25/2025 105.5 kg (232 lb 9.6 oz) 03/16/2025 101.2 kg (223 lb 1.6 oz) 03/15/2025 106.6 kg (235 lb) 03/05/2025 104.6 kg (230 lb 9.6 oz) 03/05/2025 104.3 kg (230 lb) PHYSICAL EXAM: BP 136/61 Pulse 61 Temp 36.5 ?C (97.7 ?F) (Temporal) Resp 16 Wt 105.5 kg (232 lb 9.6 oz) SpO2 97% BMI 33.37 kg/m? Area Assessed: Chest KPS: 90 General Appearance: Alert and oriented. No acute distress. Chest: No respiratory distress. Lungs clear to auscultation bilaterally. IMAGING/LAB RESULTS: None TOXICITY ASSESSMENT (CTC v4.0): Fatigue: grade 0 - No symptoms Weight loss: grade 0 - No weight loss Nausea:Grade 0 - No Symptoms Radiation Dermatitis:grade 0 - No symptoms Dysphagia: grade 0 - No symptoms Esophageal Pain: Grade 0 - No symptoms Dyspnea: grade 0 (No symptoms) I have personally participated in the linder components of the case and agree with the above findings: Treatment chart checked: YES Patient treatment site reviewed and verified: YES Setup images reviewed and current: YES ASSESSMENT/PLAN: Clinically stable. Toxicity within expected parameters. Continue radiation treatment as planned. Follow-up imaging in 3-4 months per guidelines ([facility] w VV). Signed by: Kaylene Feliz, [facility]05-08-2025 History of Present illness Narrative* Kaylene Feliz MD - 03/25/2025 12:57 PM EDT Radiation Oncology - On Treatment Review (OTR) Note PATIENT NAME: Yari Lopez PATIENT DIAGNOSIS: : 69 year old male with [id number] adenocarcinoma (KRAS mutation, PD L1 2%), high risk operable (prior CABG, aortic dissection surgically corrected, carotid stenosis surgically corrected). PROTOCOL: no COURSE: definitive and SBRT (stereotactic body radiotherapy) Current dose: 2000 cGy in 2 fx Planned dose: 5000 cGy in 5 fx SUBJECTIVE: Mr. Lopez was seen in clinic today for OTV. Tolerating treatment well. Denies fatigue at this time. Discussed possible side effects, treatment plan and follow up plan. Above completed by Bruce Cervantes RN Above, no acute changes with treatment. Last 5 Encounter Wt Readings: Date: Wt: 03/25/2025 105.5 kg (232 lb 9.6 oz) 03/16/2025 101.2 kg (223 lb 1.6 oz) 03/15/2025 106.6 kg (235 lb) 03/05/2025 104.6 kg (230 lb 9.6 oz) 03/05/2025 104.3 kg (230 lb) PHYSICAL EXAM: BP 136/61 Pulse 61 Temp 36.5 C (97.7 F) (Temporal) Resp 16 Wt 105.5 kg (232 lb 9.6 oz) SpO2 97% BMI 33.37 kg/m Area Assessed: Chest KPS: 90 General Appearance: Alert and oriented. No acute distress. Chest: No respiratory distress. Lungs clear to auscultation bilaterally. IMAGING/LAB RESULTS: None TOXICITY ASSESSMENT (CTC v4.0): Fatigue: grade 0 - No symptoms Weight loss: grade 0 - No weight loss Nausea:Grade 0 - No Symptoms Radiation Dermatitis:grade 0 - No symptoms Dysphagia: grade 0 - No symptoms Esophageal Pain: Grade 0 - No symptoms Dyspnea: grade 0 (No symptoms) I have personally participated in the linder components of the case and agree with the above findings: Treatment chart checked: YES Patient treatment site reviewed and verified: YES Setup images reviewed and current: YES ASSESSMENT/PLAN: Clinically stable. Toxicity within expected parameters. Continue radiation treatment as planned. Follow-up imaging in 3-4 months per guidelines ([facility] w VV). Signed by: Kaylene Feliz MD documented in this encounterSelect [facility]25 NoteHNO ID: [id number] Author: ACACIA CASTANEDA RN Service: ? Author Type: Registered Nurse Type: Progress Notes Filed: 03/23/2025 15:48 Note Text: IRB# [id number] Comparing the Effectiveness of Surgery versus Stereotactic Body Radiation Therapy for Stage I Non-Small Cell Lung Cancer PI: Dr. Vishnu Lyman Study Visit: Screening/Consent I met the patient for the SORT Study. Consented to the study. Confirmed email is correct and consents to receive emails from [employer] surveys. Meeting Facilitator strength test completed: YES 4-meter walk completed: YES Questionnaires completed per protocol: YES NYHA class II :Slight limitation of physical activity. Comfortable at rest. Ordinary physical activity results in fatigue , palpitation, or dyspnea. PROMIS surveys sent via email/[employer] notification and patient understands need to complete: YES Discussed with the patient the importance of follow up in the study. He/She verbalized understanding. Next study visit will be via telephone Patient contact information reaffirmed and updated. Coordinator contact information provided to the patient. Education provided: Protocol, Protocol required tests/procedures, Follow up requirements/schedule. Materials dispensed: Coordinator contact cardAcacia R.N. House Designer Pager # [phone] Clinic [facility] Hospital05-06-2025 History of Present illness Narrative* Acacia Castaneda RN - 03/23/2025 3:17 PM EDT IRB# [id number] Comparing the Effectiveness of Surgery versus Stereotactic Body Radiation Therapy for Stage I Non-Small Cell Lung Cancer PI: Dr. Vishnu Lyman Study Visit: Screening/Consent I met the patient for the SORT Study. Consented to the study. Confirmed email is correct and consents to receive emails from [employer]. Meeting Facilitator strength test completed: YES 4-meter walk completed: YES Questionnaires completed per protocol: YES NYHA class II :Slight limitation of physical activity. Comfortable at rest. Ordinary physical activity results in fatigue , palpitation, or dyspnea. PROMIS surveys sent via email/[employer] notification and patient understands need to complete: YES Discussed with the patient the importance of follow up in the study. He/She verbalized understanding. Next study visit will be via telephone Patient contact information reaffirmed and updated. Coordinator contact information provided to the patient. Education provided: Protocol, Protocol required tests/procedures, Follow up requirements/schedule. Materials dispensed: Coordinator contact card, Acacia Castaneda R.N. House Designer Pager # [phone] documented in this encounterSelect [facility]-29-[facility]25 NoteHNO ID: [id number] Author: MELODY GARCIA RN Service: ? Author Type: Registered Nurse Type: Progress Notes Filed: 03/16/2025 13:33 Note Text: Radiation Therapy - Patient Education Note PATIENT NAME: Yari Lopez PATIENT March 16, 2025 [facility] FACILITY/LOCATION: [facility] READINESS TO LEARN Cognitive Ability: Alert and oriented Motivation to learn: Eager Interested Family Support: High - Very involved in pt care Instruction provide to: Patient and Family member Patient learns best by: Individual Instruction Written Instruction - Hand-outs Verbal Instruction Factors effecting learning: None Physical limitations effecting learning: None LEARNING RESPONSE Diagnosis: Pt simulated today for radiation therapy to right lung. Education Topic/Teaching Points: Radiation therapy, Side effects, and OTV: Method of instruction: Individual instruction Written instruction/Handouts Verbal instruction Patient /Family response: Patient and family verbalized understanding of radiation treatments, side effects, OTV, and transportation. Follow-up plan: Patient instructed to call with any further issues Supplemental material: Informational handouts on SBRT lung. Referral (recommendation): Social Work Was PED reviewed? Yes Patient has an Onbody or Implanted device: No Signed by: Melody [facility] History of Present illness Narrative* Melody Garcia RN - 03/16/2025 1:29 PM EDT Radiation Therapy - Patient Education Note PATIENT NAME: Yari Lopez PATIENT March 16, 2025 [facility] FACILITY/LOCATION: [facility] READINESS TO LEARN Cognitive Ability: Alert and oriented Motivation to learn: Eager Interested Family Support: High - Very involved in pt care Instruction provide to: Patient and Family member Patient learns best by: Individual Instruction Written Instruction - Hand-outs Verbal Instruction Factors effecting learning: None Physical limitations effecting learning: None LEARNING RESPONSE Diagnosis: Pt simulated today for radiation therapy to right lung. Education Topic/Teaching Points: Radiation therapy, Side effects, and OTV: Method of instruction: Individual instruction Written instruction/Handouts Verbal instruction Patient /Family response: Patient and family verbalized understanding of radiation treatments, sideeffects, OTV, and transportation. Follow-up plan: Patient instructed to call with any further issues Supplemental material: Informational handouts on SBRT lung. Referral (recommendation): Social Work Was PED reviewed? Yes Patient has an Onbody or Implanted device: No Signed by: Melody Garcia RN documented in this encounterSelect Medical Specialty [facility] [place]04-29-2025 History of Present illness Narrative* Kaylene Feliz MD - 03/16/2025 10:13 AM EDT Radiation Oncology - New Patient/Consult Note PATIENT NAME: Yari Lopez PATIENT REQUESTING PROVIDER: Dr. Lyman. DIAGNOSIS: 69 year old male with [id number] adenocarcinoma (KRAS mutation, PD L1 2%), high risk operable (prior CABG, aortic dissection surgically corrected, carotid stenosis surgically corrected). HPI: 69 year old male who presents with above diagnosis, for an opinion regarding the role of radiation therapy in the management of the patient's disease. Final recommendations will be communicated back to the requesting physician by way of the shared medical record, or letter to requesting physician via US mail. Mr. Yari Loepz is a very pleasant 69 year old gentleman with a newly diagnosed stage IA3 NSCLC of the RUL. He has had a gradually evolving right upper lobe lung nodule noted on pre and postoperative testingand followed. This recently enlarged to 2.6 cm. PET scan demonstrated mild metabolic activity with an SUV max of 1.1. Lungs & Pleura: 2.6 x 2.3 cm partly solid right upper lobe lung nodule with mild uptake SUV max 1.1 (3:102). Moderate upper lobe predominant centrilobular emphysema. Numerous nonavid small lung nodules below PET resolution. No evidence of distant hypermetabolic uptake. Endobronchial ultrasound-guided lung biopsy demonstrated adenocarcinoma (KRAS mutation, PD-L1 2%). All sampled lymph nodes negative (4L, 11L, 7, 4R, 11 RS, 11 RI). FINAL DIAGNOSIS A - Lung, Right Upper Lobe Nodule,Transbronchial, Fine Needle Aspiration: Positive for malignant cells. Adenocarcinoma. See comment. B - Lymph node, Station 11L, Transbronchial Fine Needle Aspiration: Negative for metastatic malignant cells. Polymorphous lymphoid sample. C - Lymph node, Station 4L, Transbronchial Fine Needle Aspiration: Negative for metastatic malignant cells. Polymorphous lymphoid sample. D - Lymph node, Station 7, Transbronchial Fine Needle Aspiration: Negative for metastatic malignant cells. Polymorphous lymphoid sample. E - Lymph node, Station 4R, Transbronchial Fine Needle Aspiration: Negative for metastatic malignant cells. Polymorphous lymphoid sample. F - Lymph node, Station 11Rs, Transbronchial Fine Needle Aspiration: Negative for metastatic malignant cells. Polymorphous lymphoid sample. G - Lymph node, Station 11Ri, Transbronchial Fine Needle Aspiration: Non-Diagnostic. Predominantly blood. Not a lymphoid sample. Physically and functionally he is well, however does have some dyspnea on exertion. 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 He was evaluated by cardiothoracic surgery and was not felt to be a candidate for sublobar resection given anatomy of disease. Considered for lobectomy, however given combination of his medical risk factors as well as patient's risk of functional compromise was referred for discussion of SBRT as an alternative to surgical resection. Hospital pulmonary function testing reviewed. ALLERGIES Allergen Reactions Penicillins Swelling MEDICATIONS: predniSONE (DELTASONE) 10 mg tablet Take 10 mg by mouth once daily. methotrexate 2.5 mg tablet Take 2.5 mg by mouth every Saturday. 5 tablets 1x a week on Saturdays folic acid 1 mg tablet Take 1 mg by mouth once daily. vortioxetine (TRINTELLIX) 20 mg tablet Take 1 tablet by mouth once daily. glimepiride (AMARYL) 1 mg tablet Take 0.5 tablets by mouth daily with breakfast. losartan (COZAAR) 25 mg tablet Take a half tablet by mouth daily with lunch. aluminum-magnesium hydroxide-simethicone (MAALOX,MYLANTA,MAG-AL PLUS) 200-200-20 mg/5 mL suspensionTake 30 mL by mouth as needed (Second Line Therapy). atorvastatin (LIPITOR) 40 mg tablet Take 1 tablet by mouth daily at bedtime. guaiFENesin (MUCINEX) 600 mg 12 hr tablet Take 1 tablet by mouth every 12 hours as needed (cough). lidocaine (SALONPAS) 4 % patch Apply 1 [...] total for a 24 hours window. Thanks. pantoprazole DR (PROTONIX) 20 mg tablet Take 1 tablet by mouth DAILY (6 AM) for 7 days. polyethylene glycol 3350 (MIRALAX, GLYCOLAX) 17 gram [...] Take 2,000 Units by mouth once daily. [DISCONTINUED] buPROPion XL (WELLBUTRIN XL) 300 mg 24 hr tablet Take 300 mg by mouth once daily. PAST MEDICAL HISTORY Diagnosis Date Coronary artery disease without angina pectoris Hernia 1971 Hypercholesteremia Hypertension IBS (irritable bowel syndrome) Lung nodule Multinodular thyroid Osteoarthritis of right knee Prior radiation therapy, collagen vascular disease, or inflammatory bowel disease: No Any implanted or external electric devices? No PAST SURGICAL HISTORY Procedure Laterality Date CABG (4) VEIN GRAFTS & ARTERIAL GRAFT(S) 03/08/2020 CARDIAC CATH 12/31/2019 @ [facility] by Dr. He CHEST TUBE - INSERT 1984 HAD PNEUMONIA FOOT SURGERY HX plantars wart outer edge of foot HERNIA REPAIR HX FAMILY HISTORY Problem Relation Age of Onset Ischemic Heart Disease Mother Ischemic Heart Disease Father other (HEART ATTACK) Father Breast Cancer Sister Coronary Artery Disease Sister Social History Tobacco Use Smoking status: Former Current packs/day: 0.00 Average packs/day: 1.5 packs/day for 55.0 years (82.5 ttl pk-yrs) Types: Cigarettes Start date: 01/16/1965 Quit date: 01/16/2020 Years since quittin.1 Smokeless tobacco: Current Types: Snuff Vaping Use Vaping status: Never Used Substance Use Topics Alcohol use: Yes Comment: 1-2 daily Drug use: Not Currently COMPLETE REVIEW OF SYSTEMS: As noted in HPI PHYSICAL EXAM: VS: BP 125/55 Pulse 60 Temp 36.3 C (97.4 F) (Oral) Resp 18 Wt 106.6 kg (235 lb) SpO2 96% BMI 33.72 kg/m KPS: 80 General appearance: Alert and oriented. No acute distress. HEENT: NCAT. Sclera anicteric. PER. EOMI. Neck: Normal ROM. Abdomen: Soft. Nontender. Nondistended. Musculoskeletal: No edema. Normal ROM in extremities. No bone or spine tenderness. Neuro: No focal deficits. Skin: No rashes noted RADIOLOGY/LABORATORY DATA: see HPI ASSESSMENT AND PLAN: 69 year old male with [id number] adenocarcinoma (KRAS mutation, PD L1 2%), high risk operable (prior CABG, aortic dissection surgically corrected, carotid stenosis surgically corrected). We reviewed options of surgical resection versus stereotactic body radiation. Discussed available comparative data and limitations of its application. Reviewed expected outcomes and uncertainties with choice of either treatment. Discussed potential participation in SORT trial if he is felt to be eligible, will reach out to thoracic surgery to confirm formal surgical candidacy. Given risks of resection as well as his own concerns about functional decline and value system on aggressive therapy versus risk he would like to proceed with intent stereotactic body radiation. Given size and favorable location of lesion agree that this is a very reasonable decision in this circumstance. Patient demonstrates understanding and agreement and has given his informed consent to proceed. Will schedule simulation. Signed by: Kaylene Feliz MD Medical Decision Making: Problems: High: Illness/injury w/ threat to life/body function Risk: High: High risk from testing/treatment Medical Decision Making Level: 5 - High cc: Tania West [address] [facility] [address] [phone] Elliot Lyman [address] [facility] J[address] [facility] [id number] documented in this encounterSelect Medical Specialty [facility] [place]04-29-2025 NoteHNO ID: [id number] Author: KAYLENE FELIZ MD Service: ? Author Type: Physician Type: Progress Notes Filed: 03/16/2025 10:28 Note Text: Radiation Oncology - New Patient/Consult Note PATIENT NAME: Yari Lopez PATIENT REQUESTING PROVIDER: Dr. Lyman. DIAGNOSIS: 69 year old male with [id number] adenocarcinoma (KRAS mutation, PD L1 2%), high risk operable (prior CABG, aortic dissection surgically corrected, carotid stenosis surgically corrected). HPI: 69 year old male who presents with above diagnosis, for an opinion regarding the role of radiation therapy in the management of the patient's disease. Final recommendations will be communicated back to the requesting physician by way of the shared medical record, or letter to requesting physician via US mail. Mr. Yari Lopez is a very pleasant 69 year old gentleman with a newly diagnosed stage IA3 NSCLC of the RUL. He has had a gradually evolving right upper lobe lung nodule noted on pre and postoperative testing and followed. This recently enlarged to 2.6 cm. PET scan demonstrated mild metabolic activity with an SUV max of 1.1. Lungs AND Pleura: 2.6 x 2.3 cm partly solid right upper lobe lung nodule with mild uptake SUV max 1.1 (3:102). Moderate upper lobe predominant centrilobular emphysema. Numerous nonavid small lung nodules below PET resolution. No evidence of distant hypermetabolic uptake. Endobronchial ultrasound-guided lung biopsy demonstrated adenocarcinoma (KRAS mutation, PD-L1 2%). All sampled lymph nodes negative (4L, 11L, 7, 4R, 11 RS, 11 RI). FINAL DIAGNOSIS A - Lung, Right Upper Lobe Nodule,Transbronchial, Fine Needle Aspiration: Positive for malignant cells. Adenocarcinoma. See comment. B - Lymph node, Station 11L, Transbronchial Fine Needle Aspiration: Negative for metastatic malignant cells. Polymorphous lymphoid sample. C - Lymph node, Station 4L, Transbronchial Fine Needle Aspiration: Negative for metastatic malignant cells. Polymorphous lymphoid sample. D - Lymph node, Station 7, Transbronchial Fine Needle Aspiration: Negative for metastatic malignant cells. Polymorphous lymphoid sample. E - Lymph node, Station 4R, Transbronchial Fine Needle Aspiration: Negative for metastatic malignant cells. Polymorphous lymphoid sample. F - Lymph node, Station 11Rs, Transbronchial Fine Needle Aspiration: Negative for metastatic malignant cells. Polymorphous lymphoid sample. G - Lymph node, Station 11Ri, Transbronchial Fine Needle Aspiration: Non-Diagnostic. Predominantly blood. Not a lymphoid sample. Physically and functionally he is well, however does have some dyspnea on exertion. 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 He was evaluated by cardiothoracic surgery and was not felt to be a candidate for sublobar resection given anatomy of disease. Considered for lobectomy, however given combination of his medical risk factors as well as patient's risk of functional compromise was referred for discussion of SBRT as an alternative to surgical resection. Hospital pulmonary function testing reviewed. ALLERGIES Allergen Reactions Penicillins Swelling MEDICATIONS: predniSONE (DELTASONE) 10 mg tablet Take 10 mg by mouth once daily. methotrexate 2.5 mg tablet Take 2.5 mg by mouth every Saturday. 5 tablets 1x a week on Saturdays folic acid 1 mg tablet Take 1 mg by mouth once daily. vortioxetine (TRINTELLIX) 20 mg tablet Take 1 tablet by mouth once daily. glimepiride (AMARYL) 1 mg tablet Take 0.5 tablets by mouth daily with breakfast. losartan (COZAAR) 25 mg tablet Take a half tablet by mouth daily with lunch. aluminum-magnesium hydroxide-simethicone (MAALOX,MYLANTA,MAG-AL PLUS) 200-200-20 mg/5 mL suspension Take 30 mL by mouth as needed (Second Line Therapy). atorvastatin (LIPITOR) 40 mg tablet Take 1 tablet by mouth daily at bedtime. guaiFENesin (MUCINEX) 600 mg 12 hr tablet Take 1 tablet by mouth every 12 hours as needed (cough). lidocaine (SALONPAS) 4 % patch Apply 1 [...] total for a 24 hours window. Thanks. pantoprazole DR (PROTONIX) 20 mg tablet Take 1 tablet by mouth DAILY (6 AM) for 7 days. polyethylene glycol 3350 (MIRALAX, GLYCOLAX) 17 gram packet Take 1 Packet by mouth twice daily as needed for constipation. Dissolve dose in 4 - 8 ounces of liquid and take as directed. metFORMIN ER (GLUCOPHAGE XR) 500 mg 24 hr tablet Take 1 tablet by mouth daily with breakfast. aspirin, enteric coate (more content not included)...[facility] 03-16-[facility]25 History of Present illness Narrative* Minerva Salazar MD - 03/16/2025 12:00 AM EDT YARI LOPEZ [id number] 03/16/2025 [facility] Department of Radiation Oncology [facility] RADIATION ONCOLOGY SIMULATION NOTE DATE OF SIMULATION: 03/16/2025 MACHINE: CT Simulator DIAGNOSIS: 69 year old male with [id number] adenocarcinoma (KRAS mutation, PD L1 2%), high risk operable (prior CABG, aortic dissection surgically corrected, carotid stenosis surgically corrected). AREA:SBRT RT LUNG PATIENT POSITION: Supine. CONTRAST: None PROTOCOL: None BLOCKS: Custom blocks are necessary to develop an optimal plan. FIXATION DEVICE: In order to achieve accurate and reproducible treatments, the patient is immobilized with BODYFIX & BELT. PROCEDURE: A time-out was conducted and recorded by the therapist. Patient was simulated on the CT scanner for external beam radiation therapy. Respiratory motion management set-up and use at the time of 4D CT simulation was reviewed. Treatment site was marked by the simulation therapist. ASSESSMENT/PLAN: Patient tolerated simulation procedure well. Treatments will be initiated after treatment planning. The patient will be scheduled for a verification simulation on the treatment machine to ensure proper set-up and field arrangement is correct prior to the first treatment of primary and any boost minaya if applicable. Electronically Signed Minerva Salazar M.D. 54:14 PM documented in this encounterSelect Medical Specialty [facility] [place]04-29-2025 History of Present illness Narrative* Kaylene Feliz MD - 03/16/2025 12:00 AM EDT NANCYZABRINAYARI [id number] 03/16/2025 [facility] [place] [facility] Main - Department of Radiation Oncology Treatment Planning Note For reasons stated in the consult note, Yari Lopez is a candidate for radiation therapy. Based on review and interpretation of the relevant diagnostic studies together with the exam findings, Yari Lopez was simulated on 03/16/2025 at which time the target volume and/or requisite minaya were d elineated, as indicated in the simulation note, to be treated according to the prescription. An ITV was created from all the phases of respiratory motion captured by the 4DCT image sets. Motion management allowed for design of patient specific planning target volume and reduced the radiationexposure to normal tissues. The treatment target and organs at risk were contoured on the simulation scan. Special consideration to these and other structures was given in light of the potential for increased toxicities of stereotactic body radiation therapy (SBRT) with close proximity to sensitive organs (central tumor within 2 cm of proximal bronchial tree). Pulmonary function testing was reviewed (Dec 2024 OSH testing accessible in hyperlink to 02/12/25 thoracic surgery encounter). After reviewing multiple treatment plans with dosimetry, the best plan was approved to deliver the prescribed course of radiation to the target area using inverse planning to allow for the best isodose distribution, treating to the 75.6% isodose line with 6MV FFF and 2 minaya. Custom MLC for IMRT was the treatment device used to shape/modify the beams. Limiting dose to normal tissue was confirmedupon review of the calculated dose volume histogram. IMRT planning was used because it best met the dose/volume constraints for the organs at risk for this patient, better than what could be achieved using conventional or 3D planning. The specific doserequirements for the PTV, organs at risk and dose-volume histograms are contained in this treatmentplan and/or elsewhere in the medical record. A completed summary of this plan dated 03/18/2025 incorporated herein by reference includes dose, beam arrangements, energy, blocking, isodose distribution, and/or ports and DVH. Electronically Signed Kaylene Feliz M.D. 59:52 AM documented in this encounterSelect Medical Specialty Hospital [facility]04-29-2025 NoteHNO ID: [id number] Author: MINERVA SALAZAR MD Service: Radiation Oncology Author Type: Physician Type: Progress Notes Filed: 03/16/2025 16:14 Note Text: YARI LOPEZ [id number] 03/16/2025 [facility] Department of Radiation Oncology [facility] RADIATION ONCOLOGY SIMULATION NOTE DATE OF SIMULATION: 03/16/2025 MACHINE: CT Simulator DIAGNOSIS: 69 year old male with [id number] adenocarcinoma (KRAS mutation, PD L1 2%), high risk operable (prior CABG, aortic dissection surgically corrected, carotid stenosis surgically corrected). AREA:SBRT RT LUNG PATIENT POSITION: Supine. CONTRAST: None PROTOCOL: None BLOCKS: Custom blocks are necessary to develop an optimal plan. FIXATION DEVICE: In order to achieve accurate and reproducible treatments, the patient is immobilized with BODYFIX AND BELT. PROCEDURE: A time-out was conducted and recorded by the therapist. Patient was simulated on the CT scanner for external beam radiation therapy. Respiratory motion management set-up and use at the time of 4D CT simulation was reviewed. Treatment site was marked by the simulation therapist. ASSESSMENT/PLAN: Patient tolerated simulation procedure well. Treatments will be initiated after treatment planning. The patient will be scheduled for a verification simulation on the treatment machine to ensure proper set-up and field arrangement is correct prior to the first treatment of primary and any boost minaya if applicable. Electronically Signed Minerva Salazar M.D. :14 [facility]04-29-2025 NoteHNO ID: [id number] Author: KAYLENE FELIZ MD Service: Radiation Oncology Author Type: Physician Type: Progress Notes Filed: 03/19/2025 09:52 Note Text: YARI LOPEZ [id number] 03/16/2025 [place] - Department of Radiation Oncology Treatment Planning Note For reasons stated in the consult note, Yari Lopez is a candidate for radiation therapy. Based on review and interpretation of the relevant diagnostic studies together with the exam findings, Yari Lopez was simulated on 03/16/2025 at which time the target volume and/or requisite minaya were delineated, as indicated in the simulation note, to be treated according to the prescription. An ITV was created from all the phases of respiratory motion captured by the 4DCT image sets. Motion management allowed for design of patient specific planning target volume and reduced the radiation exposure to normal tissues. The treatment target and organs at risk were contoured on the simulation scan. Special consideration to these and other structures was given in light of the potential for increased toxicities of stereotactic body radiation therapy (SBRT) with close proximity to sensitive organs (central tumor within 2 cm of proximal bronchial tree). Pulmonary function testing was reviewed (Dec 2024 OS testing accessible in hyperlink to 02/12/25 thoracic surgery encounter). After reviewing multiple treatment plans with dosimetry, the best plan was approved to deliver the prescribed course of radiation to the target area using inverse planning to allow for the best isodose distribution, treating to the 75.6% isodose line with 6MV FFF and 2 minaya. Custom MLC for IMRT was the treatment device used to shape/modify the beams. Limiting dose to normal tissue was confirmed upon review of the calculated dose volume histogram. IMRT planning was used because it best met the dose/volume constraints for the organs at risk for this patient, better than what could be achieved using conventional or 3D planning. The specific dose requirements for the PTV, organs at risk and dose-volume histograms are contained in this treatment plan and/or elsewhere in the medical record. A completed summary of this plan dated 03/18/2025 incorporated herein by reference includes dose, beam arrangements, energy, blocking, isodose distribution, and/or ports and DVH. Electronically Signed Kaylene Feliz M.D. :52 [facility]04-22-2025 Telephone encounter Note* Telephone Encounter - Gaviota Subramanian - 03/09/2025 11:20 AM EDT Ultrasound report head, neck, thyroid are in [facility]. Gaviota Stokes [facility]04-22-2025 Miscellaneous Notes* Telephone Encounter - Gaviota Subramanian - 03/09/2025 11:20 AM EDT Ultrasound report head, neck, thyroid are in [facility]. Gaviota Stokes * Telephone Encounter - Bel Moscoso - 03/09/2025 10:59 AM EDT Received US Head/Neck/Thyroid report 11/24/24 and Cytology Report 01/19/25 from [facility] * Telephone Encounter - Bel Moscoso - 03/09/2025 10:30 AM EDT Attempt #1 Requested US Thyroid Radiology Imaging from [facility]. Spoke to: Radiology Phone #: [phone] images sent via electronic transfer Bel Moscoso March 09, 2025 10:30 AM documented in this encounterSelect Medical Specialty [facility] [place]04-22-2025 Telephone encounter Note * Telephone Encounter - Bel Moscoso - 03/09/2025 10:59 AM EDT Received US Head/Neck/Thyroid report 11/24/24 and Cytology Report 01/19/25 from [facility]04-22-2025 Telephone encounter Note* Telephone Encounter - Bel Moscoso - 03/09/2025 10:30 AM EDT Attempt #1 Requested US Thyroid Radiology Imaging from [facility]. Spoke to: Radiology Phone #: [phone] images sent via electronic transfer Bel Moscoso March 09, 2025 10:30 AM [facility]04-19-2025 NoteHNO ID: [id number] Author: ELLIOT LYMAN MD, PhD Service: ? Author Type: Physician Type: Progress Notes Filed: 03/06/2025 12:15 Note Text: I have read and reviewed the documentation and agree. I wish to add the following findings which have been dictated and will be communicated back to the requesting physician. Elliot Lyman MD, [facility]DCleveland [facility] History of Present illness Narrative* Elliot Lyman MD, PhD - 03/06/2025 12:14 PM EDT I have read and reviewed the documentation and agree. I wish to add the following findings which have been dictated and will be communicated back to the requesting physician. Elliot Lyman MD, PhD * Yuriy Alejandre, RN - 03/05/2025 1:40 PM EDT Pt here for follow up visit: Slowly evolving right upper lobe non-small cell lung cancer Last clinic note 02/12/25 per Elliot Lyman M.D. IMPRESSION: Slowly evolving right upper lobe non-small cell lung cancer in a former very heavy smoker with a fair pulmonary function test. He has an ECOG performance status zero, but will need to demonstrate some improvement in walk oximetry and prehabilitation. The patient does have some time to improve his vitality for possible operative intervention, which would be a right upper lobe, which would be a right upper lobectomy based on the location of the lesion. He will begin to briskly exercise himself and has from tobacco now 3 weeks ago. I will likely retest him and also may perform a quantitative CT scan as well as a quantitative perfusion scan. Consideration for a CPEX study will also be given. I will finally re walk him in approximately 3 weeks to assess his level of fitness at that time, so that a treatment decision can be made. Today's visit 03/05/25: BP 141/59 Pulse 63 Temp (Src) 97.9 (Oral) Resp 14 Ht 5' 10 (1.78m) Wt 230 lb (104.3kg) SpO2 94% BMI 33.00 kg/(m^2). 10/30/24 CT Actionable Findings Again see is about 2 cm inhomogeneous nodule of the right thyroid gland. Acuity: Actionable Findings: Endocrine (thyroid) Routing Code: EMI_1 Recommendation: US THYROID/PARATHYROID Dobutamine Echo 02/25/25 CONCLUSIONS: - Exam indication: Pre-Op Lung Surg. - The dobutamine stress echo was negative for ischemia at 93 % of MPHR. - The left ventricle is normal in size. There is mild left ventricular hypertrophy. Left ventricular systolic function is normal. EF = 56 5% (2D biplane) Definity contrast used for endocardial border detection. - The right ventricle is normal in size. Right ventricular systolic function is normal. - There are no significant valvular abnormalities. - Exam was compared with the prior echocardiographic exam performed on 08/17/2022 (OR Post PRANAV). Similar findings. 6MWT 03/05/25 Distance Walked (meters) Distance Walked (feet) Male Predicted Walk Distance (feet) Male Lower Limit of Normal (feet) Male % Predicted Total Duration Of The Stops (seconds) 335.28 1100 1722.77 1220.77 63.9 -- Pt has been walking around the block a few times a day Pt has been smoke free since 01/19/25 Yuriy Alejandre RN documented [facility] NoteHNO ID: [id number] Author: YURIY ALEJANDRE RN Service: ? Author Type: Registered Nurse Type: Progress Notes Filed: 03/06/2025 12:15 Note Text: Pt here for follow up visit: Slowly evolving right upper lobe non-small cell lung cancer Last clinic note 02/12/25 per Elliot Lyman M.D. IMPRESSION: Slowly evolving right upper lobe non-small cell lung cancer in a former very heavy smoker with a fair pulmonary function test. He has an ECOG performance status zero, but will need to demonstrate some improvement in walk oximetry and prehabilitation. The patient does have some time to improve his vitality for possible operative intervention, which would be a right upper lobe, which would be a right upper lobectomy based on the location of the lesion. He will begin to briskly exercise himself and has from tobacco now 3 weeks ago. I will likely retest him and also may perform a quantitative CT scan as well as a quantitative perfusion scan. Consideration for a CPEX study will also be given. I will finally re walk him in approximately 3 weeks to assess his level of fitness at that time, so that a treatment decision can be made. Today's visit 03/05/25: BP 141/59 Pulse 63 Temp (Src) 97.9 (Oral) Resp 14 Ht 5' 10 (1.78m) Wt 230 lb (104.3kg) SpO2 94% BMI 33.00 kg/(m2). 10/30/24 CT Actionable Findings Again see is about 2 cm inhomogeneous nodule of the right thyroid gland. Acuity: Actionable Findings: Endocrine (thyroid) Routing Code: EMI_1 Recommendation: US THYROID/PARATHYROID Dobutamine Echo 02/25/25 CONCLUSIONS: - Exam indication: Pre-Op Lung Surg. - The dobutamine stress echo was negative for ischemia at 93 % of MPHR. - The left ventricle is normal in size. There is mild left ventricular hypertrophy. Left ventricular systolic function is normal. EF = 56 ? 5% (2D biplane) Definity contrast used for endocardial border detection. - The right ventricle is normal in size. Right ventricular systolic function is normal. - There are no significant valvular abnormalities. - Exam was compared with the prior echocardiographic exam performed on 08/17/2022 (OR Post PRANAV). Similar findings. 6MWT 03/05/25 Distance Walked (meters) Distance Walked (feet) Male Predicted Walk Distance (feet) Male Lower Limit of Normal (feet) Male % Predicted Total Duration Of The Stops (seconds) 335.28 1100 1722.77 1220.77 63.9 -- Pt has been walking around the block a few times a day Pt has been smoke free since 01/19/25 Yuriy Alejandre RNCleveland [facility]04-18-2025 NoteHNO ID: [id number] Author: MIAH GRANADOS MD Service: ? Author Type: Registered Resp Therapist Type: Procedures Filed: 03/05/2025 12:38 Note Text: RESPIRATORY THERAPY SIX MINUTE WALK TEST OXIMETRY REPORT Six Minute Walk Test for This Encounter Oxygen Device Liters FIO2 SpO2% HR Activity Feet Speed (MPH) Flag R/A 98 67 Resting R/A 96 95 Six Minute Walk 1100 2.1 R/A 97 78 Recovery 1 minute post R/A 97 70 Recovery 2 minute post R/A 99 72 Recovery 3 minute post General Information Height Weight Pulse Oximetry Site Oximeter Pre Blood Pressure Post Blood Pressure Total Time Spent (min) 179.6 cm (5' 10.71) 104.6 kg (230 lb 9.6 oz) Forehead Masimo 119/48 155/55 30 _ Distance Walked (meters) Distance Walked (feet) Male Predicted Walk Distance (feet) Male Lower Limit of Normal (feet) Male % Predicted Total Duration Of The Stops (seconds) 335.28 1100 1722.77 1220.77 63.9 -- _ Lowest SpO2 During 6 Minute Walk Pre-Mathew Dyspnea Rating Pre-Mathew Fatigue Rating Post Mathew Dyspnea Rating Post Mathew Fatigue Rating 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 . The patient required Room Air to complete the test. The distance the patient walked in six minutes is moderately reduced. This is the first time patient takes the six minute walk test. The patient perceived their dyspnea during the six minute walk test to be 2-Slight on the modified Mathew scale. The patient perceived their fatigue during the six minute walk test to be 1-Very slight on the modified Mathew scale. I have reviewed the findings and made appropriate revisions as needed. SIGNATURE: Miah Granados MD PATIENT NAME: Yari Lopez DATE: March 05, 2025 TIME: 12:38 [facility]04-18-2025 Procedure note* Nicole Peng RRT - 03/05/2025 12:34 PM EDTAssociated Order(s): SIX MINUTE WALK RESPIRATORY THERAPY SIX MINUTE WALK TEST OXIMETRY REPORT Six Minute Walk Test for This Encounter Oxygen Device Liters FIO2 SpO2% HR Activity Feet Speed (MPH) Flag R/A 98 67 Resting R/A 96 95 Six Minute Walk 1100 2.1 R/A 97 78 Recovery 1 minute post R/A 97 70 Recovery 2 minute post R/A 99 72 Recovery 3 minute post General Information Height Weight Pulse Oximetry Site Oximeter Pre Blood Pressure Post Blood Pressure Total Time Spent (min) 179.6 cm (5' 10.71) 104.6 kg (230 lb 9.6 oz) Forehead Masimo 119/48 155/55 30 _ Distance Walked (meters) Distance Walked (feet) Male Predicted Walk Distance (feet) Male Lower Limit of Normal (feet) Male % Predicted Total Duration Of The Stops (seconds) 335.28 1100 1722.77 1220.77 63.9 -- _ Lowest SpO2 During 6 Minute Walk Pre-Mathew Dyspnea Rating Pre-Mathew Fatigue Rating Post Mathew Dyspnea Rating Post Mathew Fatigue Rating 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 . The patient required Room Air to complete the test. The distance the patient walked in six minutes is moderately reduced. This is the first time patient takes the six minute walk test. The patient perceived their dyspnea during the six minute walk test to be 2- Slight on the modified Mathew scale. The patient perceived their fatigue during the six minute walk test to be 1-Very slight on the modified Mathew scale. I have reviewed the findings and made appropriate revisions as needed. SIGNATURE: Miah Granados MD PATIENT NAME: Yari Lopez DATE: March 05, 2025 TIME: 12:38 PM [facility]04-18-2025 Procedure note* Nicole Peng RRT - 03/05/2025 12:34 PM EDTAssociated Order(s): SIX MINUTE WALK RESPIRATORY THERAPY SIX MINUTE WALK TEST OXIMETRY REPORT Six Minute Walk Test for This Encounter Oxygen Device Liters FIO2 SpO2% HR Activity Feet Speed (MPH) Flag R/A 98 67 Resting R/A 96 95 Six Minute Walk 1100 2.1 R/A 97 78 Recovery 1 minute post R/A 97 70 Recovery 2 minute post R/A 99 72 Recovery 3 minute post General Information Height Weight Pulse Oximetry Site Oximeter Pre Blood Pressure Post Blood Pressure Total Time Spent (min) 179.6 cm (5' 10.71) 104.6 kg (230 lb 9.6 oz) Forehead Masimo 119/48 155/55 30 _ Distance Walked (meters) Distance Walked (feet) Male Predicted Walk Distance (feet) Male Lower Limit of Normal (feet) Male % Predicted Total Duration Of The Stops (seconds) 335.28 1100 1722.77 1220.77 63.9 -- _ Lowest SpO2 During 6 Minute Walk Pre-Mathew Dyspnea Rating Pre-Mathew Fatigue Rating Post Mathew Dyspnea Rating Post Mathew Fatigue Rating 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 . The patient required Room Air to complete the test. The distance the patient walked in six minutes is moderately reduced. This is the first time patient takes the six minute walk test. The patient perceived their dyspnea during the six minute walk test to be 2- Slight on the modified Mathew scale. The patient perceived their fatigue during the six minute walk test to be 1-Very slight on the modified Mathew scale. I have reviewed the findings and made appropriate revisions as needed. SIGNATURE: Miah Granados MD PATIENT NAME: Yari Lopez DATE: March 05, 2025 TIME: 12:38 PM documented in this encounterSelect [facility]25 NoteHNO ID: [id number] Author: ELLIOT YLMAN MD, PhD Service: Thoracic Surgery Author Type: Physician Type: Progress Notes Filed: 03/13/2025 10:50 Note Text: [place] [address] [place] DEPARTMENT OF THORACIC AND CARDIOVASCULAR SURGERY NAME: YARI LOPEZ CLINIC #: [id number] DATE: 03/05/2025 AGE: 69 PHYSICIAN: Elliot Lyman M.D., Ph.D. I had the sincere pleasure of seeing the patient in my Thoracic Surgery Clinic. This very pleasant 69-year-old man has an evolving right upper lobe non-small cell lung cancer in the center of his lobe. This has been followed for a few years and has come to medical attention more recently. 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 He has also had a carotid artery stenosis managed surgically. He has marginal pulmonary function tests and only fair fitness. We were initially trying to determine whether he would be a surgical candidate, and he has improved since he has stopped smoking and has began exercising himself. However, he is somewhat concerned about proceeding with an aggressive resection, which would almost certainly be a right upper lobectomy based on the location of the lesion. A sublobar resection would almost certainly not be possible. Because of this, he has voiced some concerns about loss of lung function given his already only fair pulmonary function. After discussing with him in great length, feels that his concerns are not unwarranted. SBRT for this type of lesion is not ideal, but for him may be his best option based on his own desire for treatment. I will accordingly refer him to our Radiation Oncology team in regard to management. Elliot Lyman M.D., Ph.D. SM:[id number] /[id number] [facility] 02-25-2025 NoteHNO ID: [id number] Author: SARAH RICHARD RN Service: ? Author Type: Registered Nurse Type: Progress Notes Filed: 02/25/2025 09:49 Note Text: . Dobutamine Stress Echo Plan of Care Plan of care discussed with physician and medication order set signed: Yes Indication for Dobutamine Stress Echo: r/o ischemia Contraindications to medications: None Education on dobutamine stress echo with patient completed. Yes 02/25/2025 9:04 AM IV Access: IV IV Site: right Antecubital IV GAUGE 22 gauge IV Removal Date 02/26/24 Time 0945 [facility] History of Present illness Narrative* Sarah Richard RN - 02/25/2025 9:03 AM EDT . Dobutamine Stress Echo Plan of Care Plan of care discussed with physician and medication order set signed: Yes Indication for Dobutamine Stress Echo: r/o ischemia Contraindications to medications: None Education on dobutamine stress echo with patient completed. Yes 02/25/2025 9:04 AM IV Access: IV IV Site: right Antecubital IV GAUGE 22 gauge IV Removal Date 02/26/24 Time 0945 Reactions: WNL documented in this encounter[facility] Telephone encounter Note * Telephone Encounter - Ryann Warner RN - 02/24/2025 9:28 AM EDT ECHO LAB TELEPHONE INSTRUCTIONS: Learning Response: Instructions provided to: Patient Procedure: Dobutamine Stress Echo Pre procedure education topics: Arrival time, NPO status, and Medications Instructions/Restrictions Hold beta gideon (metoprolol) Patient/Family Response Evaluation: Verbalizes understanding Follow Up Plan and Medication: As directed by physician Instruction/Supplemental Material Given: Appointment Information and Procedure/Test Specific Information: Dobutamine Stress Echo Test Instructed By Ryann Warner RN. In Department of CARDIOLOGY. [facility]04-09-2025 Miscellaneous Notes* Telephone Encounter - Ryann Warner RN - 02/24/2025 9:28 AM EDT ECHO LAB TELEPHONE INSTRUCTIONS: Learning Response: Instructions provided to: Patient Procedure: Dobutamine Stress Echo Pre procedure education topics: Arrival time, NPO status, and Medications Instructions/Restrictions Hold beta gideon (metoprolol) Patient/Family Response Evaluation: Verbalizes understanding Follow Up Plan and Medication: As directed by physician Instruction/Supplemental Material Given: Appointment Information and Procedure/Test Specific Information: Dobutamine Stress Echo Test Instructed By Ryann Warner RN. In Department of CARDIOLOGY. documented in this encounter[facility] Telephone encounter Note * Telephone Encounter - Bel Moscoso - 02/23/2025 10:23 AM EDT Received call from pt stating Dr. Lyman wanted him to have a chemical stress test, pt states he called [facility] and their 1st available was 03/17; pt is scheduled to see Dr. Lyman 03/05, pt asks if his appts on 03/05 would need to be rescheduled. Please review and advise, pt can be reached at [phone] Bel Moscoso, administrative executive [facility]04-08-2025 Miscellaneous Notes* Telephone Encounter - Bel Moscoso - 02/23/2025 10:23 AM EDT Received call from pt stating Dr. Lyman wanted him to have a chemical stress test, pt states he called [facility] and their 1st available was 03/17; pt is scheduled to see Dr. Lyman 03/05, pt asks if his appts on 03/05 would need to be rescheduled. Please review and advise, pt can be reached at [phone] Bel Moscoso, administrative executive documented in this encounterSelect [facility]2025 NoteHNO ID: [id number] Author: ELLIOT LYMAN MD, PhD Service: ? Author Type: Physician Type: Progress Notes Filed: 02/19/2025 08:59 Note Text: [facility] STAFF PHYSICIAN NOTE OF PERSONAL INVOLVEMENT IN CARE I have reviewed the documentation obtained and documented by the Resident and I have personally performed a face to face assessment of the patient and have personally participated in the linder components of the visit which includes medical decision making.. I have discussed the case and management of the patient's care. I wish to add the following findings which have been dictated and will be communicated back to the requesting physician. STAFF PHYSICIAN: Elliot Lyman MD, PhD DATE [facility] SERVICE: [facility] History of Present illness Narrative* Elliot Lyman MD, PhD - 02/19/2025 8:58 AM EDT [facility] STAFF PHYSICIAN NOTE OF PERSONAL INVOLVEMENT IN CARE I have reviewed the documentation obtained and documented by the Resident and I have personally performed a face to face assessment of the patient and have personally participated in the linder components of the visit which includes medical decision making.. I have discussed the case and management ofthe patient's care. I wish to add the following findings which have been dictated and will be communicated back to the requesting physician. STAFF PHYSICIAN: Elliot Lyman MD, PhD DATE OF SERVICE: February 12, 2025 * Emery Hernandez MD - 02/12/2025 11:00 AM EDT Images from the original note were not included. 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 Plan: - Will need repeat 6 min walk, possibly VQ scan to further assess pulmonary function - Needs cardiac stress testing - Will discuss treatment plan, pending further testing in about 3 weeks SIGNATURE: Emery Hernandez MD PAGER: [phone] DATE of SERVICE: 02/12/2025 TIME of SERVICE: 11:01 AM HPI: Yair Lopez is a 69 year old White male referred by Dalia Augustine MD for an opinion regarding management of Lung Nodule. His hsitory is notable for Type A aortic dissection s/p repair (), four vessel CABG (03/08/2020), former smoker, left carotid artery stenosis s/p bypass in 01/2024, HTN, HLD CT chest obtained in 2021 for aortic surveillance showed a 1cm RUL nodule, which has increased in size to 2.5cm in Decemener 2023. Under went transbronchial biopsy on 12/30/2024, which showed adenocarcinomoa in the RUL, negative station 11L, 4L, 7, 4R, and 11R Currently, he is asymptomatic. Denies shortness of breath, cough, wheezing. No personal history of cancer. On and off smoker for most of his, with at least 2 packs per day for 20 years. Quit three weeks ago. (document at least 4 of these elements) Location: right Quality: chronic Timing: constant Context: in the setting of smoking history ECOG Score: 0 Living arrangement: Lives with family/friend Functional status: Independent Unintentional weight loss over last 3 months: No PAST MEDICAL HISTORY Diagnosis Date Coronary artery disease without angina pectoris Hernia 1971 Hypercholesteremia Hypertension IBS (irritable bowel syndrome) Osteoarthritis of right knee PAST SURGICAL HISTORY Procedure Laterality Date CABG (4) VEIN GRAFTS & ARTERIAL GRAFT(S) 03/08/2020 CARDIAC CATH 12/31/2019 @ [facility] by Dr. He CHEST TUBE - INSERT 1984 HAD PNEUMONIA FOOT SURGERY HX plantars wart outer edge of foot HERNIA REPAIR HX FAMILY HISTORY Problem Relation Age of Onset Ischemic Heart Disease Mother Ischemic Heart Disease Father other (HEART ATTACK) Father Breast Cancer Sister Coronary Artery Disease Sister Social History Tobacco Use Smoking status: Former Current packs/day: 0.00 Average packs/day: 1.5 packs/day for 55.0 years (82.5 ttl pk-yrs) Types: Cigarettes Start date: 01/16/1965 Quit date: 01/16/2020 Years since quittin.0 Smokeless tobacco: Current Types: Snuff Vaping Use Vaping status: Never Used Substance Use Topics Alcohol use: Yes Comment: 1-2 daily Drug use: Not Currently ALLERGIES Allergen Reactions Penicillins Swelling Asbestos Exposure No PHYSICAL EXAM BP 141/69 Pulse 62 Temp 36.7 C (98 F) (Oral) Resp 14 Ht 180.3 cm (5' 11) Wt 100.9 kg (222 lb 8 oz) SpO2 95% BMI 31.03 kg/m Neck: No masses and No cervical, supraclavicular, or axillary adenopathy Resp: Clear and Respiratory effort: normal Cardiovascular: Regular rate & rhythm GI: Soft Neurological/Psychiatric: Oriented to time, place & person DATA: Radiology: PET CT HEAD AND NECK: Head: No radiotracer avid lesion or mass effect in the imaged intracranial compartment. Aerodigestive Tract: No radiotracer avid lesion. Lymph Nodes: No radiotracer avid lymphadenopathy. Neck Soft Tissues: No radiotracer avid thyroid nodule. CHEST: Lungs & Pleura: 2.6 x 2.3 cm partly solid right upper lobe lung nodule with mild uptake SUV max 1.1 (3:102). Moderate upper lobe predominant centrilobular emphysema. Numerous nonavid small lung nodules below PET resolution. Lymph Nodes: No radiotracer avid lymphadenopathy. Mediastinum: No radiotracer avid mass. Cardiovascular: Blood pool activity. No pericardial effusion. Normal heart size. Coronary artery calcifications. Enlarged left atrium. Status post CABG. Chest Wall: No radiotracer avid soft tissue lesion. ABDOMEN AND PELVIS: Hepatobiliary: No radiotracer avid lesion. No measurable mass. Spleen: No radiotracer avid lesion. No splenomegaly. Pancreas: No radiotracer avid lesion. Adrenals: No radiotracer avid nodule. Urinary Tract: Physiologic radiotracer excretion in the renal collecting systems and urinary bladder. No hydronephrosis. GI Tract: No radiotracer avid lesion. No bowel dilation. Peritoneum: No radiotracer avid lesion. No ascites. Lymph Nodes: No radiotracer avid lymphadenopathy. Vasculature: Blood pool activity. Abdominal aortic atherosclerotic calcifications without aneurysm. Pelvic Organs: No radiotracer avid lesion. MUSCULOSKELETAL: Bones: No radiotracer avid lesion. No lytic or sclerotic lesion. Degenerative changes. Soft Tissues: No radiotracer avid lesion. IMPRESSION PRIMARY DISEASE SITE: * Partially solid right upper lobe lung nodule with mild uptake correlating with known primary. * Numerous bilateral nonavid small lung nodules below PET resolution. CARLY DISEASE: * No metabolically active regional lymphadenopathy. METASTATIC DISEASE: * No metabolically active distant metastases. MRI Brain IMPRESSION: No acute findings or abnormal enhancement. No evidence of intracranial metastasis. CT Chest IMPRESSION: 1. A 26 x 23 mm right upper lobe part solid (predominantly solid) pulmonary nodule has enlarged compared to prior exams and is highly suspicious for a primary lung malignancy. 2. Numerous additional small (5 mm or less) pulmonary nodules are present, overall not substantially changed since the prior chest CT from 10/29/2024 with numerous nodules also present on the more remote chest CT from 10/29/2022. These nodules are indeterminate although may represent a combination of respiratory bronchiolitis and Langerhans cell histiocytosis. Underlying neoplastic nodules are possible and continued follow-up is recommended. 3. No thoracic lymphadenopathy. 4. Postsurgical changes of median sternotomy for CABG and thoracic aortic repair. 5. Emphysema. 6. Unchanged indeterminate 1.5 cm right thyroid nodule, which could be further assessed with thyroid ultrasound. FINAL DIAGNOSIS A - Lung, Right Upper Lobe Nodule,Transbronchial, Fine Needle Aspiration: Positive for malignant cells. Adenocarcinoma. See comment. B - Lymph node, Station 11L, Transbronchial Fine Needle Aspiration: Negative for metastatic malignant cells. Polymorphous lymphoid sample. C - Lymph node, Station 4L, Transbronchial Fine Needle Aspiration: Negative for metastatic malignant cells. Polymorphous lymphoid sample. D - Lymph node, Station 7, Transbronchial Fine Needle Aspiration: Negative for metastatic malignant cells. Polymorphous lymphoid sample. E - Lymph node, Station 4R, Transbronchial Fine Needle Aspiration: Negative for metastatic malignant cells. Polymorphous lymphoid sample. F - Lymph node, Station 11Rs, Transbronchial Fine Needle Aspiration: Negative for metastatic malignant cells. Polymorphous lymphoid sample. G - Lymph node, Station 11Ri, Transbronchial Fine Needle Aspiration: Non-Diagnostic. Predominantly blood. Not a lymphoid sample. PFT's/Six: 12/28/2024 External Document(s) - Outside PFT Results (12/29/2024) 6MW 12/28/2024: Walked 880ft, did not sat less than 88. See scanned docs for full report I have personally reviewed the following images/data: Chest X-ray, CT scan, Pathology, and PET Scan Outside Paper Medical Records Review personally performed by: Emery Hernandez MD documented in this encounterSelect [facility]25 NoteHNO ID: [id number] Author: MARCELLO MAYS Research Coordinator Service: ? Author Type: Research Type: Progress Notes Filed: 02/12/2025 11:34 Note Text: Summary: Research Update Study title: cfMeDIP-seq Assay Multicenter Prospective Observational Validation for Early Cancer Detection, Minimal Residual Disease, and Relapse ([facility]) PI: Gerald York MD, Yari Lopez agreed to redraw as first blood draw was rejected due to hemolysis. Blood was DRAWN at consent visit with kit number [id number] on 02/12/2025 at 11:30am by Marcello Mays There were no adverse events associated with the blood draw. Sample was stored and shipped per the protocol and lab manual Fed Ex [id number] Marcello Mays, Research Coordinator [phone] [facility]inatorC[facility] History of Present illness Narrative* Marcello Mays Research Coordinator - 02/12/2025 11:31 AM EDT Summary: Research Update Study title: cfMeDIP-seq Assay Multicenter Prospective Observational Validation for Early Cancer Detection, Minimal Residual Disease, and Relapse ([facility]) PI: Gerald York MD, Yari K Blossomsonja agreed to redraw as first blood draw was rejected due to hemolysis. Blood was DRAWN at consent visit with kit number [id number] on 02/12/2025 at 11:30am by Marcello Mays There were no adverse events associated with the blood draw. Sample was stored and shipped per the protocol and lab manual Fed Ex [id number] Marcello Mays Research Coordinator [phone] House Designer documented in this encounterSelect [facility]ty [facility] [place]-28-2025 NoteHNO ID: [id number] Author: EMERY HERNANDEZ MD Service: ? 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 Plan: - Will need repeat 6 min walk, possibly VQ scan to further assess pulmonary function - Needs cardiac stress testing - Will discuss treatment plan, pending further testing in about 3 weeks SIGNATURE: Emery Hernandez MD PAGER: [phone] DATE of SERVICE: 02/12/2025 TIME of SERVICE: 11:01 AM HPI: Yari Lopez is a 69 year old White male referred by Dalia Augustine MD for an opinion regarding management of Lung Nodule. His hsitory is notable for Type A aortic dissection s/p repair (), four vessel CABG (03/08/2020), former smoker, left carotid artery stenosis s/p bypass in 01/2024, HTN, HLD CT chest obtained in 2021 for aortic surveillance showed a 1cm RUL nodule, which has increased in size to 2.5cm in Decemener 2023. Under went transbronchial biopsy on 12/30/2024, which showed adenocarcinomoa in the RUL, negative station 11L, 4L, 7, 4R, and 11R Currently, he is asymptomatic. Denies shortness of breath, cough, wheezing. No personal history of cancer. On and off smoker for most of his, with at least 2 packs per day for 20 years. Quit three weeks ago. (document at least 4 of these elements) Location: right Quality: chronic Timing: constant Context: in the setting of smoking history ECOG Score: 0 Living arrangement: Lives with family/friend Functional status: Independent Unintentional weight loss over last 3 months: No PAST MEDICAL HISTORY Diagnosis Date Coronary artery disease without angina pectoris Hernia 1971 Hypercholesteremia Hypertension IBS (irritable bowel syndrome) Osteoarthritis of right knee PAST SURGICAL HISTORY Procedure Laterality Date CABG (4) VEIN GRAFTS AND ARTERIAL GRAFT(S) 03/08/2020 CARDIAC CATH 12/31/2019 @ [facility] by Dr. He CHEST TUBE - INSERT 1984 HAD PNEUMONIA FOOT SURGERY HX plantars wart outer edge of foot HERNIA REPAIR HX FAMILY HISTORY Problem Relation Age of Onset Ischemic Heart Disease Mother Ischemic Heart Disease Father other (HEART ATTACK) Father Breast Cancer Sister Coronary Artery Disease Sister Social History Tobacco Use Smoking status: Former Current packs/day: 0.00 Average packs/day: 1.5 packs/day for 55.0 years (82.5 ttl pk-yrs) Types: Cigarettes Start date: 01/16/1965 Quit date: 01/16/2020 Years since quittin.0 Smokeless tobacco: Current Types: Snuff Vaping Use Vaping status: Never Used Substance Use Topics Alcohol use: Yes Comment: 1-2 daily Drug use: Not Currently ALLERGIES Allergen Reactions Penicillins Swelling Asbestos Exposure No PHYSICAL EXAM BP 141/69 Pulse 62 Temp 36.7 ?C (98 ?F) (Oral) Resp 14 Ht 180.3 cm (5' 11) Wt 100.9 kg (222 lb 8 oz) SpO2 95% BMI 31.03 kg/m? Neck: No masses and No cervical, supraclavicular, or axillary adenopathy Resp: Clear and Respiratory effort: normal Cardiovascular: Regular rate AND rhythm GI: Soft Neurological/Psychiatric: Oriented to time, place AND person DATA: Radiology: PET CT HEAD AND NECK: Head: No radiotracer avid lesion or mass effect in the imaged intracranial compartment. Aerodigestive Tract: No radiotracer avid lesion. Lymph Nodes: No radiotracer avid lymphadenopathy. Neck Soft Tissues: No radiotracer avid thyroid nodule. CHEST: Lungs AND Pleura: 2.6 x 2.3 cm partly solid right upper lobe lung nodule with mild uptake SUV max 1.1 (3:102). Moderate upper lobe predominant centrilobular emphysema. Numerous nonavid small lung nodules below PET resolution. Lymph Nodes: No radiotracer avid lymphadenopathy. Mediastinum: No radiotracer avid mass. Cardiovascular: Blood pool activity. No pericardial effusion. Normal heart size. Coronary artery calcifications. Enlarged left atrium. Status post CABG. Chest Wall: No radiotracer avid soft tissue lesion. ABDOMEN AND PELVIS: Hepatobiliary: No radiotracer avid lesion. No measurable mass. Spleen: No radiotracer avid lesion. No splenomegaly. Pancreas: No radiotracer avid lesion. Adrenals: No radiotracer avid nodule. Urinary Tract: Physiologic radiotracer excretion in the renal collecting systems and urinary bladder. No hydronephrosis. GI Tract: No radiotracer avid lesion. No bowel dilation. Peritoneum: No radiotracer avid lesion. No ascites. Lymph Nodes: No radiotracer avid lymphadenopathy. Vasculature: Blood pool activity. Abdominal aortic atherosclerotic calcifications without aneurysm. Pelvic Organs: No radiotracer avid lesion. MUSCULOSKELETAL: Bones: No radiotrac (more content not included)...[facility] 02-12-2025 NoteHNO ID: [id number] Author: ELLIOT LYMAN MD, PhD Service: Thoracic Surgery Author Type: Physician Type: Progress Notes Filed: 02/23/2025 12:20 Note Text: [place] [address] [place] DEPARTMENT OF THORACIC AND CARDIOVASCULAR SURGERY NAME: YARI LOPEZ CLINIC #: [id number] DATE: 02/12/2025 AGE: 69 PHYSICIAN: Elliot Lyman M.D., Ph.D. I had the sincere pleasure of meeting with the patient and his family in my Thoracic Surgery Clinic. This very pleasant 69-year-old heavy smoker until the last 3 weeks of cessation, was seen today for an opinion regarding an evolving non-small cell lung cancer in his right upper lobe. Medical history and review of systems have been studied. I have also independently reviewed images of a fused PET-CT scan as well as CT scans dating back several years. I have assessed pulmonary function testing including walk oximetry, DLCO, and spirometry and have assessed the patient and shared my thoughts with the patient and his in detail. In brief, this very heavy smoker with very recent cessation has a 50-pack year tobacco use history. He quit 3 weeks ago. He has a history of peripheral vascular disease including coronary artery disease. He has had an aortic dissection and a CABG. He has also had left carotid artery stenosis and a bypass, all of which within the last 5 years. He had a nodule noted on a CT scan done for aortic surveillance some 2 years ago and this nodule has increased in size by approximately 2.5 to 3 fold when recently viewed in October of this past year. A transbronchial biopsy shows adenocarcinoma of the right upper lobe and multiple local lymph node stations were negative. His PET scan is really quite unremarkable. The lesion itself is quite patchy and does have a ground-glass component. Like stated it is nominally active on his PET scan, which I have independently reviewed. Overall, the patient does have significant pulmonary disease. He has a gas exchange problem with a DLCO of just over 50% and some element of obstructive lung disease. His CT scans demonstrate significant emphysematous changes and interstitial reticular changes in the right upper lobe, far greater than in the right lower or right middle lobe. He has no quantitative perfusion scans. He walked less than a 1000 feet without desaturating, but this may have been an effort issue. He claims he can walk over 2 miles without being short of breath and that will be something which will have to be rechecked. IMPRESSION: Slowly evolving right upper lobe non-small cell lung cancer in a former very heavy smoker with a fair pulmonary function test. He has an ECOG performance status zero, but will need to demonstrate some improvement in walk oximetry and prehabilitation. The patient does have some time to improve his vitality for possible operative intervention, which would be a right upper lobe, which would be a right upper lobectomy based on the location of the lesion. He will begin to briskly exercise himself and has from tobacco now 3 weeks ago. I will likely retest him and also may perform a quantitative CT scan as well as a quantitative perfusion scan. Consideration for a CPEX study will also be given. I will finally re walk him in approximately 3 weeks to assess his level of fitness at that time, so that a treatment decision can be made. Elliot Lyman M.D., Ph.D. SM:[id number] /[id number] [facility] 01-28-2025 NoteHNO ID: [id number] Author: YUNG MAGANA RT(R) Service: ? Author Type: Technologist Type: Progress Notes Filed: 01/28/2025 08:48 Note Text: RADIOLOGY SERVICE PROGRESS NOTE SERVICE DATE: 01/28/2025 SERVICE TIME: 8:48 AM PATIENT IDENTITY VERIFICATION COMPLETED USING TWO (2) STANDARD IDENTIFIERS: Name and Date of confirmed by patient verbally and Name and Date of confirmed by identification band FALL SCREENING: Has the patient had 2 falls in the last year or 1 fall with injury or currently using an Ambulatory Assistive Device (Walker, Cane, Wheelchair, Crutches, etc.)? No PATIENT GENDER DATA: .male ALLERGIES: Reviewed and unchanged MEDICATIONS REVIEWED: Not applicable PATIENT RELEVANT IMPLANT DATA REVIEWED: Not Applicable PATIENT PRESENTS WITH AN IMPLANTABLE OR ATTACHED ELECTRONIC SERVICE TECHNICIAN: No CREATININE: Creatinine Date Value Ref Range Status 12/28/2024 0.97 0.73 - 1.22 mg/dL Final Creatinine (POCT) Date Value Ref Range Status 10/29/2024 1.10 0.7 - 1.4 mg/dL Final 10/29/2023 1.00 0.7 - 1.4 mg/dL Final Estimated Glomerular Filtration Rate Date Value Ref Range Status 12/28/2024 85 >=60 mL/min/1.73m? Final Comment: Estimated Glomerular Filtration [...] Status 02/11/2020 >60 Final P.O.C.T. RESULTS: N/A January 28, [address] PERFORMED: No IV SITE: Ambulatory: A peripheral IV was started in the Right antecubital site with a Angio cath: 22 gauge. POST EXAM PIV STATUS: Discontinued PROCEDURE TYPE: NM INJECT: PET/CT BODY SCAN. 14.3 mCi F18 FDG. No other medications given.. ADMINISTRATION TIME: 0846 PATIENT DISCHARGED TO: Ambulatory patient, left AR department area. Is this a therapy: No A Diagnostic radioactive procedure has taken place, with no further precautions necessary other than routine body substance precautions. More information regarding radiation safety can be found using this link: [email or web address] SIGNATURE: VIRGILIO [place]) PATIENT NAME: Yari Lopez DATE: January 28, 2025 TIME: 8:48 AM PAGER/CONTACT #:[facility]03-06-[facility] History of Present illness Narrative* Philippe Ann Tech - 01/21/2025 6:20 AM EST Radiology Service Progress Note DATE OF SERVICE: January 21, 2025 TIME: 6:36 AM PATIENT IDENTITY VERIFICATION COMPLETED USING TWO (2) STANDARD IDENTIFIERS: Name and Date of confirmed by patient verbally and Name and Date of confirmed by identification band. FALL SCREENING: Has the patient had 2 falls in the last year or 1 fall with injury or currently using an Ambulatory Assistive Device (Walker, Cane, Wheelchair, Crutches, etc.)? No PATIENT GENDER DATA: Assigned male at PATIENT RELEVANT IMPLANT DATA REVIEWED: Not Applicable PATIENT PRESENTS WITH AN IMPLANTABLE OR ATTACHED ELECTRONIC SERVICE TECHNICIAN: No ALLERGIES: Reviewed and unchanged CONTRAST ALLERGY: NO. EXAM: MRI - CONTRAST TYPE: GROUP II PERIPHERAL IV DATA: Ambulatory: A peripheral IV was started in the Left antecubital site with a Angio cath: 22 gauge. RADIOLOGY DEPARTMENT: MR; Exam(s) Completed: Head: Routine Brain SIGNATURE: Vaughn Lopez PATIENT NAME: Yari Lopez DATE: January 21, 2025 TIME: 6:36 AM documented in this encounterSelect [facility]03-06-2025 NoteHNO ID: [id number] Author: PHILIPPE ANN Tech Service: Radiology Author Type: It Infrastructure Manager Type: Progress Notes Filed: 01/21/2025 06:36 Note Text: Radiology Service Progress Note DATE OF SERVICE: January 21, 2025 TIME: 6:36 AM PATIENT IDENTITY VERIFICATION COMPLETED USING TWO (2) STANDARD IDENTIFIERS: Name and Date of confirmed by patient verbally and Name and Date of confirmed by identification band. FALL SCREENING: Has the patient had 2 falls in the last year or 1 fall with injury or currently using an Ambulatory Assistive Device (Walker, Cane, Wheelchair, Crutches, etc.)? No PATIENT GENDER DATA: Assigned male at PATIENT RELEVANT IMPLANT DATA REVIEWED: Not Applicable PATIENT PRESENTS WITH AN IMPLANTABLE OR ATTACHED ELECTRONIC SERVICE TECHNICIAN: No ALLERGIES: Reviewed and unchanged CONTRAST ALLERGY: NO. EXAM: MRI - CONTRAST TYPE: GROUP II PERIPHERAL IV DATA: Ambulatory: A peripheral IV was started in the Left antecubital site with a Angio cath: 22 gauge. RADIOLOGY DEPARTMENT: MR; Exam(s) Completed: Head: Routine Brain SIGNATURE: Vaughn Lopez PATIENT NAME: Yari Lopez DATE: January 21, 2025 TIME: 6:36 [facility] Evaluation note* Diagnosis Onset Date Resolution Status Admit Date Thyroid nodule incidentally noted on imaging study acute January 19, 2025 1:45pm [facility] Work Phone: 1(248) 243-585202-28-2025 Telephone encounter Note* Telephone Encounter - Betzaida Sullivan - 01/15/2025 1:57 PM EST Pt cancelled 02/09/25 appointment. He is going to get 2nd oppinion and will call back to schedule jack later date. Referral from Dr. Fawn JEFFERY adenocarcinoma; also S/P CABG 03/08/20 JAL (per MF) *CT Chest 12/28/24* [facility]02-[facility] Miscellaneous Notes* Telephone Encounter - Betzaida Sullivan - 01/15/2025 1:57 PM EST Pt cancelled 02/09/25 appointment. He is going to get 2nd oppinion and will call back to schedule jack later date. Referral from Dr. Fawn JEFFERY adenocarcinoma; also S/P CABG 03/08/20 JAL (per MF) *CT Chest 12/28/24* documented in this encounterSelect [facility]-27-2025 Telephone encounter Note * Telephone Encounter - Betzaida Sullivan - 01/14/2025 4:17 PM EST Left VM to schedule OV. Referral from Dr. Fawn JEFFERY adenocarcinoma; also S/P CABG 03/08/20 JAL (per MF) [facility] Miscellaneous Notes* Telephone Encounter - Betzaida Sullivan - 01/14/2025 4:17 PM EST Left VM to schedule OV. Referral from Dr. Fawn JEFFERY adenocarcinoma; also S/P CABG 03/08/20 JAL (per MF) documented in this encounterSelect [facility]-27-2025 Telephone encounter Note * Telephone Encounter - Tami Vallejo RN - 01/14/2025 2:12 PM EST Thoracic Surgery Consultation - review of records for appointment scheduling Colton Urrutia MD ([facility]) [address] [place] [address] Patient is being referred to DR Elliot Lyman by for Lung Cancer Outside hospital records scanned Pathology: 12/30/2024 Component FINAL DIAGNOSIS Lung, right upper lobe, nodule, transbronchial biopsy: -Invasive adenocarcinoma. A - Lung, Right Upper Lobe Nodule,Transbronchial, Fine Needle Aspiration: Positive for malignant cells. Adenocarcinoma. See comment. B - Lymph node, Station 11L, Transbronchial Fine Needle Aspiration: Negative for metastatic malignant cells. Polymorphous lymphoid sample. C - Lymph node, Station 4L, Transbronchial Fine Needle Aspiration: Negative for metastatic malignant cells. Polymorphous lymphoid sample. D - Lymph node, Station 7, Transbronchial Fine Needle Aspiration: Negative for metastatic malignant cells. Polymorphous lymphoid sample. E - Lymph node, Station 4R, Transbronchial Fine Needle Aspiration: Negative for metastatic malignant cells. Polymorphous lymphoid sample. F - Lymph node, Station 11Rs, Transbronchial Fine Needle Aspiration: Negative for metastatic malignant cells. Polymorphous lymphoid sample. Procedures: 12/30/2024 [facility] Imaging PET/CT: per pul order CT (chest) 12/28/24 1. A 26 x 23 mm right upper lobe part solid (predominantly solid) pulmonary nodule has enlarged compared to prior exams and is highly suspicious for a primary lung malignancy. 2. Numerous additional small (5 mm or less) pulmonary nodules are present, overall not substantially changed since the prior chest CT from 10/29/2024 with numerous nodules also present on the more remote chest CT from 10/29/2022. These nodules are indeterminate although may represent a combination of respiratory bronchiolitis and Langerhans cell histiocytosis. Underlying neoplastic nodules are possible and continued follow-up is recommended. 3. No thoracic lymphadenopathy. 4. Postsurgical changes of median sternotomy for CABG and thoracic aortic repair. 5. Emphysema. 6. Unchanged indeterminate 1.5 cm right thyroid nodule, which could be further assessed with thyroid ultrasound. MRI: per pul order Cardiopulmonary Testing PFT's/Six: 11/2024 External Document(s) - Outside PFT Results (12/29/2024) 880ft , desat Cardiac: Office Notes/Consults 01/11/25 Dalia Ponce MD 01/11/25 9:[address] Colton Gamez office Informed of results + RUL adenocarcinoma Informed of referral to Thoracic Surgery per patient request. Dalia Augustine MD History of: FAMILY HISTORY Problem Relation Age of Onset Ischemic Heart Disease Mother Ischemic Heart Disease Father other (HEART ATTACK) Father Breast Cancer Sister Coronary Artery Disease Sister PAST MEDICAL HISTORY Diagnosis Date Coronary artery disease without angina pectoris Hernia 1971 Hypercholesteremia Hypertension IBS (irritable bowel syndrome) Osteoarthritis of right knee PAST SURGICAL HISTORY Procedure Laterality Date CABG (4) VEIN GRAFTS & ARTERIAL GRAFT(S) 03/08/2020 CARDIAC CATH 12/31/2019 @ [facility] by Dr. He CHEST TUBE - INSERT 1984 HAD PNEUMONIA FOOT SURGERY HX plantars wart outer edge of foot HERNIA REPAIR HX Social History Tobacco Use Smoking status: Former Current packs/day: 0.00 Average packs/day: 1.5 packs/day for 55.0 years (82.5 ttl pk-yrs) Types: Cigarettes Start date: 01/16/1965 Quit date: 01/16/2020 Years since quittin.0 Smokeless tobacco: Current Types: Snuff Vaping Use Vaping status: Never Used Substance Use Topics Alcohol use: Yes Comment: 1-2 daily Drug use: Not Currently Request consult with dr lyman MRI brain and PET scan per pul orders (scheduled already) six min walk Tami Vallejo RN [facility]25 Miscellaneous Notes* Telephone Encounter - Tami Vallejo RN - 01/14/2025 2:12 PM EST Thoracic Surgery Consultation - review of records for appointment scheduling Colton Urrutia MD ([facility]) [facility] [address] [facility] [id number] Patient is being referred to DR Elliot Lyman by for Lung Cancer Outside hospital records scanned Pathology: 12/30/2024 Component FINAL DIAGNOSIS Lung, right upper lobe, nodule, transbronchial biopsy: -Invasive adenocarcinoma. A - Lung, Right Upper Lobe Nodule,Transbronchial, Fine Needle Aspiration: Positive for malignant cells. Adenocarcinoma. See comment. B - Lymph node, Station 11L, Transbronchial Fine Needle Aspiration: Negative for metastatic malignant cells. Polymorphous lymphoid sample. C - Lymph node, Station 4L, Transbronchial Fine Needle Aspiration: Negative for metastatic malignant cells. Polymorphous lymphoid sample. D - Lymph node, Station 7, Transbronchial Fine Needle Aspiration: Negative for metastatic malignant cells. Polymorphous lymphoid sample. E - Lymph node, Station 4R, Transbronchial Fine Needle Aspiration: Negative for metastatic malignant cells. Polymorphous lymphoid sample. F - Lymph node, Station 11Rs, Transbronchial Fine Needle Aspiration: Negative for metastatic malignant cells. Polymorphous lymphoid sample. Procedures: 12/30/2024 BRONCH Imaging PET/CT: per pul order CT (chest) 12/28/24 1. A 26 x 23 mm right upper lobe part solid (predominantly solid) pulmonary nodule has enlarged compared to prior exams and is highly suspicious for a primary lung malignancy. 2. Numerous additional small (5 mm or less) pulmonary nodules are present, overall not substantially changed since the prior chest CT from 10/29/2024 with numerous nodules also present on the more remote chest CT from 10/29/2022. These nodules are indeterminate although may represent a combination of respiratory bronchiolitis and Langerhans cell histiocytosis. Underlying neoplastic nodules are possible and continued follow-up is recommended. 3. No thoracic lymphadenopathy. 4. Postsurgical changes of median sternotomy for CABG and thoracic aortic repair. 5. Emphysema. 6. Unchanged indeterminate 1.5 cm right thyroid nodule, which could be further assessed with thyroid ultrasound. MRI: per pulm order Cardiopulmonary Testing PFT's/Six: 11/2024 External Document(s) - Outside PFT Results (12/29/2024) 880ft , desat Cardiac: Office Notes/Consults 01/11/25 Dalia Ponce MD 01/11/25 9:[address] Colton Gamez office Informed of results + RUL adenocarcinoma Informed of referral to Thoracic Surgery per patient request. Dalia Augustine MD History of: FAMILY HISTORY Problem Relation Age of Onset Ischemic Heart Disease Mother Ischemic Heart Disease Father other (HEART ATTACK) Father Breast Cancer Sister Coronary Artery Disease Sister PAST MEDICAL HISTORY Diagnosis Date Coronary artery disease without angina pectoris Hernia 1971 Hypercholesteremia Hypertension IBS (irritable bowel syndrome) Osteoarthritis of right knee PAST SURGICAL HISTORY Procedure Laterality Date CABG (4) VEIN GRAFTS & ARTERIAL GRAFT(S) 03/08/2020 CARDIAC CATH 12/31/2019 @ [facility] by Dr. He CHEST TUBE - INSERT 1985 HAD PNEUMONIA FOOT SURGERY HX plantars wart outer edge of foot HERNIA REPAIR HX Social History Tobacco Use Smoking status: Former Current packs/day: 0.00 Average packs/day: 1.5 packs/day for 55.0 years (82.5 ttl pk-yrs) Types: Cigarettes Start date: 01/16/1965 Quit date: 01/16/2020 Years since quittin.0 Smokeless tobacco: Current Types: Snuff Vaping Use Vaping status: Never Used Substance Use Topics Alcohol use: Yes Comment: 1-2 daily Drug use: Not Currently Request consult with dr lyman MRI brain and PET scan per pulm orders (scheduled already) six min walk Tami Vallejo RN documented in this [facility]02-27-2025 NoteHNO ID: [id number] Author: CATHLEEN EASON HUC Service: ? Author Type: Human Resources Training Manager Type: Progress Notes Filed: 01/14/2025 13:33 Note Text: Follow Up Diagnosis: Lung Nodule Recommendation: PET Scan and Other Follow up Date: 01/28/2025 Follow-Up Scheduled: Yes Pulmonary Follow-Up Type: Diagnostic Work-up Enrolled in Lung Nodule program: Yes Lung Nodule Program Location: [facility]02-27-2025 History of Present illness Narrative* Cathleen Eason HUC - 01/14/2025 1:32 PM EST Follow Up Diagnosis: Lung Nodule Recommendation: PET Scan and Other Follow up Date: 01/28/2025 Follow-Up Scheduled: Yes Pulmonary Follow-Up Type: Diagnostic Work-up Enrolled in Lung Nodule program: Yes Lung Nodule Program [facility] NotePatient Outreach (PULMMN) YARI LOPEZ ([id number]) 1955 M Date Time Provider Department 01/14/25 CATHLEEN EASON During your visit today, we recorded the following information about you: Cathleen Eason HUC 01/14/2025 1:33 PM Signed Follow Up Diagnosis: Lung Nodule Recommendation: PET Scan and Other Follow up Date: 01/28/2025 Follow-Up Scheduled: Yes Pulmonary Follow-Up Type: Diagnostic Work-up Enrolled in Lung Nodule program: Yes Lung Nodule Program Location: [facility] Allergies As of Date: 01/14/2025 Noted Allergy Reaction PENICILLINS 12/26/2010 7 - Swelling Date Reviewed: 12/30/2024 Reviewed by: Kimmy Johnson, RN - Fully Assessed Prescriptions as of 01/14/2025 - predniSONE (DELTASONE) 10 mg tablet Take [...] once daily. Problem List As Of Date 01/14/2025 Noted Resolved Coronary arteriosclerosis in crow artery [I25*12/14/2013 Chest discomfort [R07.89] 12/14/2013 08/16/2022 Heart murmur, systolic [R01.1] 12/14/2013 08/16/2022 SOB (shortness of breath) on exertion [R06.02] 12/14/2013 08/16/2022 Fatigue [R53.83] 12/14/2013 08/16/2022 Hyperlipidemia LDL goal <70 [E78.5] 07/25/2016 Tobacco abuse [Z72.0] 07/25/2016 Essential hypertension [I10] 01/17/2017 S/P CABG x 4 [Z95.1] 03/10/2020 Aortic dissection (HCC) [I71.00] 08/16/2022 Nicotine use disorder, F17.2 [F17.200] 08/17/2022 Obesity, Class I, BMI 30-34.9 [E66.811] 08/17/2022 On mechanically assisted ventilation (HCC) [Z99*08/18/2022 08/18/2022 CAD (coronary artery disease) [I25.10] 08/18/2022 Postoperative pain [G89.18] 08/18/2022 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/18/2022 Coagulopathy (HCC) [D68.9] 08/18/2022 08/20/2022 MISTY (obstructive sleep apnea) [G47.33] 08/18/2022 Pulmonary edema, acute (HCC) [J81.0] 08/20/2022 08/21/2022 Encounter for support and coordination of trans*08/20/2022 Encounter Status:Closed by CATHLEEN EASON on 01/14/25[facility]02-26-2025 Telephone encounter Note* Telephone Encounter - Everardo Mayen - 01/13/2025 11:15 AM EST Office notes faxed to Dr Urrutia's office at [phone] hari Mayer [facility]02-26-2025 Miscellaneous Notes* Telephone Encounter - Everardo Mayen - 01/13/2025 11:15 AM EST Office notes faxed to Dr Urrutia's office at [phone] hari Mayer documented in this encounterSelect [facility] [place] Telephone encounter Note * Telephone Encounter - Dalia Augustine MD - 01/11/2025 9:[address] Colton Gamez office Informed of results + RUL adenocarcinoma Informed of referral to Thoracic Surgery per patient request. Dalia Augustine MD [facility] Work Phone: [phone]) 531-548702-24-2025 Miscellaneous Notes* Telephone Encounter - Dalia Augustine MD - 01/11/2025 9:[address] Colton Gamez office Informed of results + RUL adenocarcinoma Informed of referral to Thoracic Surgery per patient request. Dalia Augustine MD documented in this encounter[facility] [place]25 Telephone encounter Note * Telephone Encounter - Sindhu Salgado - 01/08/2025 10:03 AM EST Can't schedule for them, provided pt with office number [facility]02-21-2025 Miscellaneous Notes* Telephone Encounter - Sinduh Salgado - 01/08/2025 10:03 AM EST Can't schedule for them, provided pt with office number * Telephone Encounter - Sindhu Salgado - 01/08/2025 10:02 AM EST ----- Message from Dalia Augustine MD sent at 01/08/2025 9:13 AM EST ----- Can you help schedule patient with Dr Hinson? In the next 3-4 weeks? Known patient to him documented in this encounter[facility] [place]25 Telephone encounter Note * Telephone Encounter - Sindhu Salgado - 01/08/2025 10:02 AM EST ----- Message from Dalia Augustine MD sent at 01/08/2025 9:13 AM EST ----- Can you help schedule patient with Dr Hinson? In the next 3-4 weeks? Known patient to him [facility]02-17-2025 Telephone encounter Note* Telephone Encounter - Dalia Augustine MD - 01/04/2025 8:51 AM EST Called patient to discuss results Nodule+ Adenocarcinoma Mediastinum was negative Pending PET and MRI brain PFTs scanned into chart Sent a message to Dr Hinson to see if surgical resection is still possible for patient. Either Surgery evaluation next or send to radiation oncology pending above opinion. Dalia Augustine MD [facility]02-17-2025 Miscellaneous Notes* Telephone Encounter - Dalia Augustine MD - 01/04/2025 8:51 AM EST Called patient to discuss results Nodule+ Adenocarcinoma Mediastinum was negative Pending PET and MRI brain PFTs scanned into chart Sent a message to Dr Hinson to see if surgical resection is still possible for patient. Either Surgery evaluation next or send to radiation oncology pending above opinion. Dalia Augustine MD documented in this encounterSelect [facility]-12-2025 NoteHNO ID: [id number] Author: BOY GOLDMAN APRN.SHOES HAND SEWER Service: ? Author Type: Nurse Loin Trimmer Type: Anesthesia Procedure Notes Filed: 12/30/2024 09:23 Note Text: ANESTHESIOLOGY PROCEDURE NOTE Airway General Information Procedure Start Time/Medication Administration: 12/30/2024 9:22 AM Procedure End Time: 12/30/2024 9:22 AM Patient location during procedure: OR Timeout Performed Pre-procedure: timeout performed Consent Obtained: Yes Patient identity confirmed: arm band Staffing Anesthesiologist: Chuck Alvarez MD SHOES HAND SEWER: Boy Goldman APRN.SHOES HAND SEWER Performed by: GERARDO Indications and Patient Condition Indications for airway management: anesthesia Preoxygenated: yes anesthesia circuit Patient position: sniffing Method: asleep Cricoid Pressure: No Manual In-Line Stabilization: No Difficult Mask: No Final Airway Details Final airway type: supraglottic airway Number of attempts at approach: 1 Final Supraglottic Airway: i-gel Size 5 Seal Adequate: yes Failed airway: no Unrecognized esophageal intubation: no Airway not difficult SIGNATURE: Boy Goldman APRN.SHOES HAND SEWER PATIENT NAME: Yari Lopez DATE: December 30, 2024 TIME: 9:22 AM CSN: [id number]-12-[facility]25 NoteHNO ID: [id number] Author: ?, ?, ? Service: ? Author Type: ? Type: Progress Notes Filed: 12/30/2024 09:08 Note Text: Summary: Research Consent Study title: cfMeDIP-seq Assay Multicenter Prospective Observational Validation for Early Cancer Detection, Minimal Residual Disease, and Relapse ([place]) PI: Gerald York MD, Yari Lopez is interested in above study and appears to meet all Inclusion/Exclusion criteria at this time. Patient was informed of this study via face to face discussion. The Informed Consent document was thoroughly reviewed and all risks/benefits/alternatives have been presented. All questions were answered to patient's satisfaction. Risks/benefits/alternatives were presented and it is our opinion that the patient understands all of these. The patient verbalized understanding of the study and its procedures. Patient signed the Informed Consent prior to any study intervention on December 30, 2024 at 7:55 am time. Patient signed the Informed Consent IN PERSON: A copy of the signed consent document was given to the patient. Blood was DRAWN at consent visit with kit number [id number] on 30 Dec 2024 at 8:00 am by Bronch Nurse There were no adverse events associated with the blood draw. Sample was stored and shipped per the protocol and lab manual. Ronel Garces [phone] [facility]inatorC[facility]02-12-[facility]25 History of Present illness Narrative* Ronel Garces - 12/30/2024 9:04 AM ESTSummary: Research Consent Study title: cfMeDIP-seq Assay Multicenter Prospective Observational Validation for Early Cancer Detection, Minimal Residual Disease, and Relapse ([facility]) PI: Gerald York MD, Yari Joyce Jessica is interested in above study and appears to meet all Inclusion/Exclusion criteria at this time. Patient was informed of this study via face to face discussion. The Informed Consent document was thoroughly reviewed and all risks/benefits/alternatives have been presented. All questions were answered to patient's satisfaction. Risks/benefits/alternatives were presented and it is ouropinion that the patient understands all of these. The patient verbalized understanding of the study and its procedures. Patient signed the Informed Consent prior to any study intervention on December 30, 2024 at 7:55 amtime. Patient signed the Informed Consent IN PERSON: A copy of the signed consent document was given to the patient. Blood was DRAWN at consent visit with kit number [id number] on 30 Dec 2024 at 8:00 am by Bronch Nurse There were no adverse events associated with the blood draw. Sample was stored and shipped per the protocol and lab manual. Ronel Garces [phone] House Designer documented in this encounterSelect [facility]02-12-2025 NoteHNO ID: [id number] Author: BOY GOLDMAN APRN.SHOES HAND SEWER Service: ? Author Type: Nurse Loin Trimmer Type: Anesthesia Procedure Notes Filed: 12/30/2024 08:54 Note Text: ANESTHESIOLOGY PROCEDURE NOTE Airway General Information Procedure Start Time/Medication Administration: 12/30/2024 8:46 AM Procedure End Time: 12/30/2024 8:46 AM Patient location during procedure: OR Timeout Performed Pre-procedure: timeout performed Consent Obtained: Yes Patient identity confirmed: arm band and patient Staffing Anesthesiologist: Chuck Alvarez MD SHOES HAND SEWER: Boy Goldman APRN.SHOES HAND SEWER Performed by: GERARDO Indications and Patient Condition Indications for airway management: anesthesia Preoxygenated: yes anesthesia circuit Patient position: sniffing Method: asleep Cricoid Pressure: No Manual In-Line Stabilization: No Difficult Mask: No Final Airway Details Final airway type: endotracheal airway Final Endotracheal Airway: ETT Cuffed: yes Successful intubation technique: video laryngoscopy Devices used: Ríos Blade size: #4 ETT size (mm): 9.0 Placement verified by: chest auscultation, bronchoscopy and capnometry Cormack-Lehane Classification: grade I - full view of glottis Number of attempts at approach: 1 Failed airway: no Unrecognized esophageal intubation: no Airway not difficult SIGNATURE: Boy Goldman APRN.CRNA PATIENT NAME: Yari Lopez DATE: December 30, 2024 TIME: 8:53 AM CSN: [id number] [facility]02-12-2025 NotePart A. Case was reviewed in consultation with Dr. Beth Marino, who concurs with the diagnosis. Molecular testing will be performed.[facility] Comment on above:Order Comment: Specimen Type: SPECIMEN OBTAINED BY ASPIRATIONOrdering Facility: [facility] Address: [address] [place], [place] [address]Performed By: #### CYTONON ####[facility] LABCLIA [id number] [address]02-12-2025 NotePatient Name: Yari Lopez Procedure Date: 12/30/2024 8:28 AM Date of : 1955 Admit Type: Outpatient Age: 69 Gender: Male Note Status: Finalized Procedure: Bronchoscopy Indications: Mediastinal staging of suspected lung cancer., Right upper lobe nodule Providers: See-Dae Carter MD (Doctor) Referring MD: Requesting Physician: Dalia Augustine MD Patient Profile: Refer to note in patient chart for documentation of history and physical. Imaging Source: CT of chest. Clinical Radiographic Stage: N0. The patient's ECOG performance status grade is 0 - fully active, able to carry on all pre-disease performance without restriction. Medicines: General Anesthesia, See the Anesthesia note for documentation of the administered medications Complications: No immediate complications Estimated Blood Loss: Estimated blood loss was minimal. Procedure: Pre-Anesthesia Assessment: - A History and Physical has been performed. Patient meds and allergies have been reviewed. The risks and benefits of the procedure and the sedation options and risks were discussed with the patient. All questions were answered and informed consent was obtained. Patient identification and proposed procedure were verified prior to the procedure by the physician, the nurse, the anesthesiologist and the associate vice president in the procedure room. Mental Status Examination: normal. Airway Examination: normal oropharyngeal airway. Respiratory Examination: Not performed. CV Examination: normal. ASA Grade Assessment: III - A patient with severe systemic disease. After reviewing the risks and benefits, the patient was deemed in satisfactory condition to undergo the procedure. The anesthesia plan was to use general anesthesia. Immediately prior to administration of medications, the patient was re-assessed for adequacy to receive sedatives. The heart rate, respiratory rate, oxygen saturations, blood pressure, adequacy of pulmonary ventilation, and response to care were monitored throughout the procedure. The physical status of the patient was re-assessed after the procedure. After confirmation of universal protocol, the bronchoscope was introduced. The bronchoscope was introduced through the mouth, via the endotracheal tube and advanced to the tracheobronchial tree of both lungs. The EBUS SCOPE was introduced through the mouth, via laryngeal mask airway and advanced to the tracheobronchial tree. The was introduced through the mouth, via the endotracheal tube and advanced to the right lung only. The procedure was accomplished without difficulty. The patient tolerated the procedure well. Total fluoroscopy time was 4.2 minutes. The Air Kerma dose was: 154.3 mGy. PEEP 10. Findings: The endotracheal tube is in good position. The trachea is of normal caliber. The andrew is sharp. The tracheobronchial tree was examined to at least the first subsegmental level. Bronchial mucosa and anatomy are normal; there are no endobronchial lesions, and no secretions. Robotic bronchoscopy utilizing the [employer] robot platform was performed. The CT scan was used for planning purposes. A virtual bronchoscopic image was generated using the planning software. The target in the anterior segment of the right upper lobe (located in the middle one-third of the lung) was identified and marked. A semi-solid nodule 2.5 cm in size was found and a pathway was created. CT-body registration was then achieved per standard workflows. Navigation to the lesion was performed. Advanced imaging using axial imaging with 3D reconstructions was used to further target the lesion(s). Two spins were done. Based on this radiographic information, adjustments in targeting were made. A okub-mn-lqacqm (TIL) spin was performed. Njpm-qv-ltttek position was achieved at the end of navigation. Transbronchial needle aspirations of a semi-solid nodule were performed in the anterior segment of the right upper lobe using an Ion Flexision 23 gauge needle and sent for routine cytology. The procedure was guided by fluoroscopy. Transbronchial needle aspiration technique was selected because the sampling site was not visible endoscopically. The sampling device penetrated the full thickness of the bronchial wall to obtain the needle aspiration of lung tissue. 8 were obtained. Stage N0. Transbronchial biopsies of a semi-solid nodule were performed in the anterior segment of the right upper lobe using forceps and sent for histopathology examination. The procedure was guided by fluoroscopy. Transbronchial biopsy technique was selected because the sampling site was not visible endoscopically. The sampling device penetrated the full thickness of the bronchial wall to obtain the biopsy of lung tissue. Seven biopsy passes were performed. Seven biopsy samples were obtained. Rapid On-Site Evaluation (SARTHAK): Preliminary cytology of the l (more content not included)...[facility]02-11-2025 Telephone encounter Note* Telephone Encounter - Everardo Mayen - 12/29/2024 3:07 PM EST Outside PFT Results received and uploaded [address]11-2025 Miscellaneous Notes* Telephone Encounter - Everardo Mayen - 12/29/2024 3:07 PM EST Outside PFT Results received and uploaded documented in this encounterSelect [facility] Telephone encounter Note * Telephone Encounter - Everardo Mayen - 12/29/2024 9:30 AM EST Patient had pft's completed at Dr Urrutia's office. Called to request results to be faxed to [phone]11-2025 Miscellaneous Notes* Telephone Encounter - Everardo Mayen - 12/29/2024 9:30 AM EST Patient had pft's completed at Dr Urrutia's office. 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 H/o cigarette use. L carotid stenosis s/p bypass in 01/202412-28-24 CT Chest abnormal finding Initial/Subsequent: Initial PET Imaging Protocol: Top Of Ear To Proximal Thigh Diagnostic Imaging Requested: No Is this a pretreatment and an initial PET scan: Please schedule as requested Route to or Requested Scheduling Pool: P PET LAUNCH MANAGER Gigi [facility] CLERICAL POOL([facility], Gigi SCOTT [facility] * Telephone Encounter - Fiordaliza Lew - 12/28/2024 1:08 PM EST This form is used for MAIN CAMPUS APPOINTMENTS ONLY. Is this request for a [facility] [place] PET scan appointment? Yes: Coil Cleaner: Fiordaliza eLw Requesting Person Dalia Augustine [phone] Area Code + Phone/Pager: [phone] Who do we call to schedule this appointment? Patient Requesting Staff [phone] Area Code + Phone/Pager: N/A PET Orders (A delay in scheduling will result if the orders are not present at time of review): Internal ADDITIONAL ACTION MAY BE REQUIRED IF PATIENTS OON INSURANCE OR SELF PAY COVERAGE HAS NOT BEEN CLEARED FOR REQUESTED APPOINTMENT. Scheduling: PRASHANT: As soon as insurance will allow What account will this PET appointment be linked to? P/F Type of PET: Oncology: Are there additional diagnostic CT scans required to be done at time of PET scan? No Is the request for a PET MR ? No What account will diagnostic testing appointment be linked to? P/F Will the patient need anesthesia? 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 H/o cigarette use. L carotid stenosis s/p bypass in 01/202412-28-24 CT Chest abnormal finding Initial/Subsequent: Initial PET Imaging Protocol: Top Of Ear To Proximal Thigh Diagnostic Imaging Requested: No Is this a pretreatment and an initial PET scan: Please schedule as requested Route to or Requested Scheduling Pool: P PET LAUNCH MANAGER Gigi YOUNG [facility] CLERICAL POOL([facility], Gigi [facility]OTT [facility]02-10-2025 Telephone encounter Note* Telephone Encounter - Fiordailza Lew - 12/28/2024 1:08 PM EST This form is used for MAIN CAMPUS APPOINTMENTS ONLY. Is this request for a [facility] [place] PET scan appointment? Yes: Coil Cleaner: Fiordaliza Lew Requesting Person Dalia Augustine [phone] Area Code + Phone/Pager: [phone] Who do we call to schedule this appointment? Patient Requesting Staff [phone] Area Code + Phone/Pager: N/A PET Orders (A delay in scheduling will result if the orders are not present at time of review): Internal ADDITIONAL ACTION MAY BE REQUIRED IF PATIENTS OON INSURANCE OR SELF PAY COVERAGE HAS NOT BEEN CLEARED FOR REQUESTED APPOINTMENT. Scheduling: PRASHANT: As soon as insurance will allow What account will this PET appointment be linked to? P/F Type of PET: Oncology: Are there additional diagnostic CT scans required to be done at time of PET scan? No Is the request for a PET MR ? No What account will diagnostic testing appointment be linked to? P/F Will the patient need anesthesia? NO Send requests to P COORD REVIEW [facility] Work Phone: [phone] History of Present illness Narrative* Edilia Valadez RT(R) - 12/28/2024 1:00 PM EST Radiology Service Progress Note PATIENT NAME: Yari Lopez DATE OF SERVICE: December 28, 2024 TIME: 12:57 PM PATIENT IDENTITY VERIFICATION COMPLETED USING TWO (2) IDENTIFIERS: Name and Date of confirmedby patient verbally and Name and Date of confirmed by identification band. FALL SCREENING: Has the patient had 2 falls in the last year or 1 fall with injury or currently using an Ambulatory Assistive Device (Walker, Cane, Wheelchair, Crutches, etc.)? No PATIENT GENDER DATA: Assigned male at PATIENT RELEVANT IMPLANT DATA REVIEWED: Yes PATIENT PRESENTS WITH AN IMPLANTABLE OR ATTACHED ELECTRONIC SERVICE TECHNICIAN: No RADIOLOGY DEPARTMENT: CT; Exam(s) Completed: Chest PERIPHERAL IV DATA: Not applicable SIGNED BY: RT Mar(Brown) December 28, 2024 12:57 PM documented in this encounterSelect [facility]25 NoteHNO ID: [id number] Author: EDILIA VALADEZ RT(R) Service: Radiology Author Type: It Infrastructure Manager Type: Progress Notes Filed: 12/28/2024 12:58 Note Text: Radiology Service Progress Note PATIENT NAME: Yari Lopez DATE OF SERVICE: December 28, 2024 TIME: 12:57 PM PATIENT IDENTITY VERIFICATION COMPLETED USING TWO (2) IDENTIFIERS: Name and Date of confirmed by patient verbally and Name and Date of confirmed by identification band. FALL SCREENING: Has the patient had 2 falls in the last year or 1 fall with injury or currently using an Ambulatory Assistive Device (Walker, Cane, Wheelchair, Crutches, etc.)? No PATIENT GENDER DATA: Assigned male at PATIENT RELEVANT IMPLANT DATA REVIEWED: Yes PATIENT PRESENTS WITH AN IMPLANTABLE OR ATTACHED ELECTRONIC SERVICE TECHNICIAN: No RADIOLOGY DEPARTMENT: CT; Exam(s) Completed: Chest PERIPHERAL IV DATA: Not applicable SIGNED BY: VIRGILIO Manuel) December 28, 2024 12:57 [facility]02-10-2025 Instructions* Patient Instructions* Dalia Augustine MD - 12/28/2024 11:49 AM EST - Schedule PET scan - Schedule MRI - Schedule PFTs in [place] - Obtain today EKG, Blood work and CT Scan Will see you on Saturday Dalia Augustine MD Bronchoscopy A bronchoscopy is a diagnostic examination of the lungs. Your doctor recommended an examination of the air passages leading to your lungs. This procedure involves passing a narrow, flexible instrument through the mouth or nose and into the airways that allows a visual examination of the lungs. The procedure itself, which is useful in the diagnosis and treatment of pulmonary disorders, involves little hazard and is not painful. Your physician may request a bronchoscopy for several reasons: persistent cough that is not responding to medication, coughing up blood or an abnormal chest x- ray results. Diseases that affect the lungs often also affect the air passages. In some cases visual exam may be enough for an immediate diagnosis. In other cases where abnormal growths, secretions, or blood are present, a sample may be taken for testing. There is some risk to any medical procedure, but the frequency of complications with a bronchoscopyis small and is clearly outweighed by the benefits of an accurate diagnosis. Pneumothorax (collapsed lung) and bleeding at a biopsy site are only remotely possible, and they can be treated effectively and immediately at [facility] should they occur. If you have any medical problems, are taking any medications, or have any allergies to medications,please inform the nurse at the time the examination is being scheduled. The examination requires that you have an empty stomach: that is you should not take any food or drink or anything by mouth foreight hours before he examination. If your bronchoscopy is schedule in the morning before noon, do not eat or drink after midnight. If you have medications as noted above, you may take them as early as possible before 7am. If your bronchoscopy is scheduled for or after 12 noon, you may have a lightbreakfast before 7am (such as 1 piece of toast, juice, 1 cup coffee). Take any medication at that ti me. Do not eat or drink anything after 7am. You will be given medication prior to the procedure as a relaxant. These medications may make you somewhat groggy afterward. Therefore you must be accompanied by an adult who can drive you home. You will not be allowed to drive yourself. To prepare for the procedure, the nurse will spray your throat and your nose to diminish your gag reflex. You will also receive a small amount of oxygen during the procedure. While the procedure is painless, you may experience some discomfort for a short period of time. You will be able to breath normally throughout the examination. There are brief periods when you may experience shortness of breath. The procedure itself takes approximately one hour. After the exam you will spend at least one hour in recovery, where your family will be able to be with you after the procedure while the numbing medication wears off. Then your doctor will discuss your results with you. If any specimens were taken it will take 48-72 hours for results, therefore youmay need to come back to see your doctor to discuss the final results. Your mouth and throat will remain numb from the anesthesia as after a dental procedure. You are cautioned not to eat or drink during the time it takes the anesthesia to wear off, until your gag reflex is normal. This precaution is necessary to keep food or liquids from accidentally entering the windpipe or lungs rather than passing directly into the esophagus and stomach. You may also experience some hoarseness from the positioning of the bronchoscope. Special instructions: 1. If you are diabetic: we generally recommend that you take your usual dose or check with your general adjuster. If you are on oral medication, you may hold your diabetic medication 2. If you have high blood pressure: take your medication with a sip of water 3. If you take heart medications: take with a sip of water 4. If you are on anti-seizure medications: take with a sip of water 5. Bring all of your medications with you to your appointment 6. DO NOT take aspirin, aspirin containing products, ibuprofen-containing products, non-steroidal products, plavix, petal coumadin or heparin 5 days before the procedure. These increase your risk of bleeding. If you have concerns about stopping your medications, please contact your physician. The previous information was written, printed & produced by [facility] documented in this encounterSelect Medical Specialty [facility] [place]02-10-2025 NoteHNO ID: [id number] Author: DALIA AUGUSTINE MD Service: ? Author Type: Physician Type: Progress Notes Filed: 12/28/2024 12:58 Note Text: INTERVENTIONAL PULMONARY MEDICINE CONSULTATION PLEASE DO NOT REMOVE FROM THE CHART OR MODIFY PRINTED COPY Patient Name: Yari Lopez : 1955 PRIMARY CARE PHYSICIAN: Tania West MD REFERRING PHYSICIAN: Dr Colton Urrutia Consultation requested by for an opinion regarding No diagnosis found.. My final recommendations/evaluation will be communicated back to the requesting physician by way of shared medical record or letter via US mail CHIEF COMPLAINT: Lung Mass HISTORY OF PRESENT ILLNESS: Yari Lopez is a 69 year old male, BMI 30.9 kg/m2, with a history of Type A aortic dissection s/p repair (2021) and CABG in 2019. H/o cigarette use. L carotid stenosis s/p bypass in 01/2024 CT Chest 2021 with 10 mm RUL nodule, now has grown to 25mm Oct 2024. Not present in 2019. Saw cardiac surgery in 10/2024 PFTs from 2020 still within reasonable possibility of surgical candidacy. Will repeat for surgical evaluation. Will need a PET scan and Brain MRI for staging purposes. - Doing overall well - SOB with stairs or incline - No chest pain/discomfort - No cough - No hemoptysis - No Wheezing - No LE edema - No heartburn - Weight is stable and Appetite is good - No fever chills or night sweats - No bumps, lumps in neck - Stable vision and hearing - No gross hematuria - No muscle or joint pain - No focal numbness or weakness - No rash - Sleeps overall well PAST MEDICAL HISTORY Diagnosis Date Coronary artery disease without angina pectoris Hernia 1971 Hypercholesteremia Hypertension IBS (irritable bowel syndrome) Osteoarthritis of right knee PAST SURGICAL HISTORY Procedure Laterality Date CABG (4) VEIN GRAFTS AND ARTERIAL GRAFT(S) 03/08/2020 CARDIAC CATH 12/31/2019 @ [facility] by Dr. He CHEST TUBE - INSERT 1984 HAD PNEUMONIA FOOT SURGERY HX plantars wart outer edge of foot HERNIA REPAIR HX FAMILY HISTORY Problem Relation Age of Onset Ischemic Heart Disease Mother Ischemic Heart Disease Father other (HEART ATTACK) Father Breast Cancer Sister Coronary Artery Disease Sister Social History Tobacco Use Smoking status: Former Current packs/day: 0.00 Average packs/day: 1.5 packs/day for 55.0 years (82.5 ttl pk-yrs) Types: Cigarettes Start date: 01/16/1965 Quit date: 01/16/2020 Years since quittin.9 Smokeless tobacco: Current Types: Snuff Vaping Use Vaping status: Never Used Substance Use Topics Alcohol use: Yes Comment: 1-2 daily Drug use: Not Currently ALLERGIES: ALLERGIES Allergen Reactions Penicillins Swelling CURRENT OUTPATIENT MEDICATIONS: predniSONE (DELTASONE) 10 mg tablet Take 10 mg by mouth once daily. methotrexate 2.5 mg tablet Take 2.5 mg by mouth every Saturday. 5 tablets 1x a week on Saturdays folic acid 1 mg tablet Take 1 mg by mouth once daily. vortioxetine (TRINTELLIX) 20 mg tablet Take 1 tablet by mouth once daily. losartan (COZAAR) 25 mg tablet Take a half tablet by mouth daily with lunch. aluminum-magnesium hydroxide-simethicone (MAALOX,MYLANTA,MAG-AL PLUS) 200-200-20 mg/5 mL suspension Take 30 mL by mouth as needed (Second Line Therapy). atorvastatin (LIPITOR) 40 mg tablet Take 1 tablet by mouth daily at bedtime. guaiFENesin (MUCINEX) 600 mg 12 hr tablet Take 1 tablet by mouth every 12 hours as needed (cough). lidocaine (SALONPAS) 4 % patch Apply 1 [...] ounces of liquid and take as directed. aspirin, enteric coated (ECOTRIN LOW STRENGTH) 81 [...] Take 2,000 Units by mouth once daily. glimepiride (AMARYL) 1 mg tablet Take 0.5 tablets by mouth daily with breakfast. pantoprazole DR (PROTONIX) 20 mg tablet Take 1 tablet by mouth DAILY (6 AM) for 7 days. metFORMIN ER (GLUCOPHAGE XR) 500 mg 24 hr tablet Take 1 tablet by mouth daily with breakfast. [DISCONTINUED] buPROPion XL (WELLBUTRIN XL) 300 mg 24 hr tablet Take 300 mg by mouth once daily. REVIEW OF SYSTEMS Per HPI, otherwise, the remainder of the ROS was negat (more content not included)...[facility]02-10-2025 History of Present illness Narrative* Dalia Augustine MD - 12/28/2024 11:01 AM EST Images from the original note were not included. INTERVENTIONAL PULMONARY MEDICINE CONSULTATION PLEASE DO NOT REMOVE FROM THE CHART OR MODIFY PRINTED COPY Patient Name: Yari Lopez : 1955 PRIMARY CARE PHYSICIAN: Tania West MD REFERRING PHYSICIAN: Dr Colton Urrutia Consultation requested by for an opinion regarding No diagnosis found.. My final recommendations/evaluation will be communicated back to the requesting physician by way of shared medical record or letter via US mail CHIEF COMPLAINT: Lung Mass HISTORY OF PRESENT ILLNESS: Yari Lopez is a 69 year old male, BMI 30.9 kg/m2, with a history of Type A aortic dissection s/p repair (2021) and CABG in 2019. H/o cigarette use. L carotid stenosis s/p bypass in 01/2024 CT Chest 2021 with 10 mm RUL nodule, now has grown to 25mm Oct 2024. Not present in 2019. Saw cardiac surgery in 10/2024 PFTs from 2020 still within reasonable possibility of surgical candidacy. Will repeat for surgical evaluation. Will need a PET scan and Brain MRI for staging purposes. - Doing overall well - SOB with stairs or incline - No chest pain/discomfort - No cough - No hemoptysis - No Wheezing - No LE edema - No heartburn - Weight is stable and Appetite is good - No fever chills or night sweats - No bumps, lumps in neck - Stable vision and hearing - No gross hematuria - No muscle or joint pain - No focal numbness or weakness - No rash - Sleeps overall well PAST MEDICAL HISTORY Diagnosis Date Coronary artery disease without angina pectoris Hernia 1971 Hypercholesteremia Hypertension IBS (irritable bowel syndrome) Osteoarthritis of right knee PAST SURGICAL HISTORY Procedure Laterality Date CABG (4) VEIN GRAFTS & ARTERIAL GRAFT(S) 03/08/2020 CARDIAC CATH 12/31/2019 @ [facility] by Dr. He CHEST TUBE - INSERT 1984 HAD PNEUMONIA FOOT SURGERY HX plantars wart outer edge of foot HERNIA REPAIR HX FAMILY HISTORY Problem Relation Age of Onset Ischemic Heart Disease Mother Ischemic Heart Disease Father other (HEART ATTACK) Father Breast Cancer Sister Coronary Artery Disease Sister Social History Tobacco Use Smoking status: Former Current packs/day: 0.00 Average packs/day: 1.5 packs/day for 55.0 years (82.5 ttl pk-yrs) Types: Cigarettes Start date: 01/16/1965 Quit date: 01/16/2020 Years since quittin.9 Smokeless tobacco: Current Types: Snuff Vaping Use Vaping status: Never Used Substance Use Topics Alcohol use: Yes Comment: 1-2 daily Drug use: Not Currently ALLERGIES: ALLERGIES Allergen Reactions Penicillins Swelling CURRENT OUTPATIENT MEDICATIONS: predniSONE (DELTASONE) 10 mg tablet Take 10 mg by mouth once daily. methotrexate 2.5 mg tablet Take 2.5 mg by mouth every Saturday. 5 tablets 1x a week on Saturdays folic acid 1 mg tablet Take 1 mg by mouth once daily. vortioxetine (TRINTELLIX) 20 mg tablet Take 1 tablet by mouth once daily. losartan (COZAAR) 25 mg tablet Take a half tablet by mouth daily with lunch. aluminum-magnesium hydroxide-simethicone (MAALOX,MYLANTA,MAG-AL PLUS) 200-200-20 mg/5 mL suspensionTake 30 mL by mouth as needed (Second Line Therapy). atorvastatin (LIPITOR) 40 mg tablet Take 1 tablet by mouth daily at bedtime. guaiFENesin (MUCINEX) 600 mg 12 hr tablet Take 1 tablet by mouth every 12 hours as needed (cough). lidocaine (SALONPAS) 4 % patch Apply 1 [...] ounces of liquid and take as directed. aspirin, enteric coated (ECOTRIN LOW STRENGTH) 81 [...] Take 2,000 Units by mouth once daily. glimepiride (AMARYL) 1 mg tablet Take 0.5 tablets by mouth daily with breakfast. pantoprazole DR (PROTONIX) 20 mg tablet Take 1 tablet by mouth DAILY (6 AM) for 7 days. metFORMIN ER (GLUCOPHAGE XR) 500 mg 24 hr tablet Take 1 tablet by mouth daily with breakfast. [DISCONTINUED] buPROPion XL (WELLBUTRIN XL) 300 mg 24 hr tablet Take 300 mg by mouth once daily. REVIEW OF SYSTEMS Per HPI, otherwise, the remainder of the ROS was negative. PHYSICAL EXAMINATION: VITAL SIGNS: BP 133/62 Pulse 70 Temp (Src) 97.4 (Temporal) Resp 16 Wt 221 lb 9 oz (100.5kg) SpO2 96% General appearance: well appearing, alert, and in no acute distress Skin: skin color, texture, turgor normal, no rashes or lesions Head: normal Eyes: Not icteric, no injection and visual acuity is grossly normal ENT: moist mucus membranes Neck: Supple, no adenopathy; thyroid symmetric Lymph nodes: No submandibular, cervical, supraclavicular, axillary, or epitrochlear lymphadenopathypresent Lungs: lungs clear to auscultation no wheezing or rhonchi Heart: RRR without murmur, gallop, or rubs. No ectopy Abdomen: soft, non-tender. Bowel sounds normal. No masses, organomegaly Extremities: Extremities normal. No deformities, edema, or skin discoloration Neuro: no obvious deficit LAST LAB RESULTS: Latest Ref Rng & Units 10/29/2024 10/29/2023 08/30/2022 BMP Glucose 74 - 99 mg/dL 111 BUN 9 - 24 mg/dL 11 Creatinine 0.73 - 1.22 mg/dL 0.90 Sodium 136 - 144 mmol/L 137 Potassium 3.7 - 5.1 mmol/L 4.4 Chloride 97 - 105 mmol/L 102 CO2 22 - 30 mmol/L 24 Anion Gap 9 - 18 mmol/L 11 Calcium 8.5 - 10.2 mg/dL 10.2 EGFR mL/min/1.73 m2 >60 >60 94 IMAGING: Personally reviewed by me. Please see my impression/recommendations for my own interpretation/comments on imaging. OTHER TESTING: PFTs ECHO Recent Results (from the past 29620 hours) ECHO Collection Time: 08/16/22 3:53 PM Impression CONCLUSIONS: - Technically difficult exam due to body habitus. - Exam indication: Type A Dissection - The left ventricle is normal in size. There is mild left ventricular hypertrophy. Left ventricular systolic function is normal. EF = 62 5% (2D biplane) Definity contrast used for endocardial border detection. Apical endocardial definition limited- contrast agent used. - RV not well seen, no significant dilation or dysfunction is suggested. - The left atrial cavity is mildly dilated. - The visualized aorta is dilated with a maximal dimension of 6.3 cm. -Known type A dissection. Differential flow evident by color Doppler (clip #17). Small effusion along the diaphragmatic surface of the RV. - Exam was compared with the prior echocardiographic exam performed on 02/11/2020. Signifcant increase in size of ascending aorta in setting of dissection. * * * Final * * * V/Q/Perfusion scan Last VQScan No resulted procedures found. IMPRESSIONS: - RUL Nodule, growing since 2021, expect NSCLC - h/o Aortic Dissection s/p Repair 2021 - h/o L Carotic stenosis bypass 2023 - h/o CAD s/p CABG 2019 - h/o smoking - Preoperative examination: No obvious contraindication to undergo general anesthesia for the planned procedure. RECOMMENDATION/PLAN: - Proceed w/ Robotic Bronchoscopy for biopsy and staging purposes - PFTs in 2019 reasonable, will repeat at [facility] facility for surgical work up purposes - Will obtain PET and brain MRI, likely referral to Dr Hinson due to patient preference pending results. - I sent a message to patient's Aortic team in light of expect GA. He was seen in October 2024 without concerns. Has had anesthesia in November for colonoscopy without issues. Expect overall reasonable to proceed. Written and verbal health teaching given to patient, patient verbalizes understanding and agrees with treatment plan. I spent a total of 45 minutes on the date of the service which included preparing to see the patient, [id number] patient care, completing clinical documentation, obtaining and/or reviewing separately obtained history, performing a medically appropriate examination, and counseling and educating the patient/family/caregiver. Electronically Signed: Dalia Augustine MD December 28, 2024 11:01 AM CC: Tania West MD documented in this encounterSelect [facility]01-27-2025 Telephone encounter Note * Telephone Encounter - Everardo Mayen - 12/14/2024 9:55 AM EST Outside medical records received and uploaded [facility]01-27-2025 Miscellaneous Notes* Telephone Encounter - Everardo Mayen - 12/14/2024 9:55 AM EST Outside medical records received and uploaded documented in this encounterSelect [facility] [place]-23-2025 Telephone encounter Note * Telephone Encounter - Everardo Mayen - 12/10/2024 3:[address] Colton Urrutia's office requesting medical records / office notes [facility]01-23-2025 Miscellaneous Notes* Telephone Encounter - Everardo Mayen - 12/10/2024 3:[address] Colton Urrutia's office requesting medical records / office notes documented in this encounterSelect Medical Specialty [facility]-2025 NoteHNO ID: [id number] Author: MATT QUEVEDO RN Service: ? Author Type: Physician Type: Progress Notes Filed: 12/11/2024 10:13 Note Text: Bronchoscopy Request: Cleared for scheduling December 11, 2024 Please schedule patient for the following: Outpatient Visit: New Consult with Staff: Patient Choice (Virtual or In-Person), Bronchoscopy Procedures: Staging EBUS Navigation Bronchoscopy (Illumisite) Robotic Bronchoscopy Auris (STEFANIE/SS/MM/FA) Robotic Bronchoscopy ION (TG/CG/LL/AM/MA/SL/SS/STEFANIE/SG/BB/FA) Timing: Next available Time Allotment/Tier: TIER 2: 2 HOUR Physician Performing Bronchoscopy: If ION Robot, TG, FA, STEFANIE, SS, CG, MA, SG, SL, GS or LL or [place]; If Robot ([place]), MM or CG; Otherwise, Bronch A, B or C Anesthesia Type: General Special Requests: None Needs Labs: No Needs EKG: Yes Needs CT prior: Yes EMN Bronchoscopy Protocol Chest CT Does the pt need cardiac clearance? No Is he/she on anticoagulants/anti-plt therapy? No Is patient on GLP-1 agonsits (ie Ozempic, Mounjaro, Trulicity, etc)? No Is patient on SGLT2 inhibitors (?-flozin? drugs - Jardiance, etc)? No IF YES TO EITHER OF ABOVE TWO QUESTIONS PLEASE REFER TO [facility] ANESTHESIA GUIDANCE ON HOLDING Nursing Considerations: (ie: halfway, TB, respiratory isolation, etc.) none Diagnosis/Reason for Bronchoscopy: Enlarging RUL nodular consolidation, needs diagnosis and staging Referred by: Dr Urrutia Reviewed by: BORIS EDGE MD, PhD ADDENDUM: CBC with diff: WBC 10.09 08/30/2022 RBC 3.29 08/30/2022 Hemoglobin 9.9 08/30/2022 Hematocrit (I-STAT) 31.0 08/30/2022 MCV 94.2 08/30/2022 MCH 30.1 08/30/2022 MCHC 31.9 08/30/2022 RDW-CV 14.3 08/30/2022 Platelet Count 580 08/30/2022 MPV 9.3 08/30/2022 Neut% 65.5 12/25/2010 Lymph% 23.6 12/25/2010 [place]% 4.7 12/25/2010 Eosin% 5.0 12/25/2010 Baso% 1.2 12/25/2010 Abs Neut (ANC) 5.9 12/25/2010 Abs Lym 2.1 12/25/2010 Abs [place] 0.4 12/25/2010 Abs Eosin 0.4 12/25/2010 Abs Baso 0.1 12/25/2010 Potassium Date Value Ref Range Status 08/30/2022 4.4 3.7 - 5.1 mmol/L Final 08/23/2022 4.2 3.7 - 5.1 mmol/L Final 08/22/2022 4.1 3.7 - 5.1 mmol/L Final Sodium Date Value Ref Range Status 08/30/2022 137 136 - 144 mmol/L Final 08/23/2022 136 136 - 144 mmol/L Final 08/22/2022 135 (L) 136 - 144 mmol/L Final BUN Date Value Ref Range Status 08/30/2022 11 9 - 24 mg/dL Final Creatinine Date Value Ref Range Status 08/30/2022 0.90 0.73 - 1.22 mg/dL Final 08/23/2022 0.89 0.73 - 1.22 mg/dL Final Creatinine (POCT) Date Value Ref Range Status 10/29/2024 1.10 0.7 - 1.4 mg/dL Final 10/29/2023 1.00 0.7 - 1.4 mg/dL [facility] History of Present illness Narrative* Boris Edge MD, PhD - 12/10/2024 3:43 PM EST Bronchoscopy Request: Please schedule patient for the following: Outpatient Visit: New Consult with Staff: Patient Choice (Virtual or In-Person), Bronchoscopy Procedures: Staging EBUS Navigation Bronchoscopy (Illumisite) Robotic Bronchoscopy Auris (STEFANIE/SS/MM/FA) Robotic Bronchoscopy ION (TG/CG/LL/AM/MA/SL/SS/STEFANIE/SG/BB/FA) Timing: Next available Time Allotment/Tier: TIER 2: 2 HOUR Physician Performing Bronchoscopy: Bronch A, B or C Anesthesia Type: General Special Requests: None Needs Labs: No Needs EKG: Yes Needs CT prior: Yes EMN Bronchoscopy Protocol Chest CT Does the pt need cardiac clearance? No Is he/she on anticoagulants/anti-plt therapy? No Is patient on GLP-1 agonsits (ie Ozempic, Mounjaro, Trulicity, etc)? No Is patient on SGLT2 inhibitors ( -flozin drugs - Jardiance, etc)? No IF YES TO EITHER OF ABOVE TWO QUESTIONS PLEASE REFER TO [facility] ANESTHESIA GUIDANCE ON HOLDING Nursing Considerations: (ie: halfway, TB, respiratory isolation, etc.) none Diagnosis/Reason for Bronchoscopy: Enlarging RUL nodular consolidation, needs diagnosis and staging Referred by: Dr Urrutia Reviewed by: BORIS EDGE MD, PhD ADDENDUM: CBC with diff: WBC 10.09 08/30/2022 RBC 3.29 08/30/2022 Hemoglobin 9.9 08/30/2022 Hematocrit (I-STAT) 31.0 08/30/2022 MCV 94.2 08/30/2022 MCH 30.1 08/30/2022 MCHC 31.9 08/30/2022 RDW-CV 14.3 08/30/2022 Platelet Count 580 08/30/2022 MPV 9.3 08/30/2022 Neut% 65.5 12/25/2010 Lymph% 23.6 12/25/2010 [place]% 4.7 12/25/2010 Eosin% 5.0 12/25/2010 Baso% 1.2 12/25/2010 Abs Neut (ANC) 5.9 12/25/2010 Abs Lym 2.1 12/25/2010 Abs [place] 0.4 12/25/2010 Abs Eosin 0.4 12/25/2010 Abs Baso 0.1 12/25/2010 Potassium Date Value Ref Range Status 08/30/2022 4.4 3.7 - 5.1 mmol/L Final 08/23/2022 4.2 3.7 - 5.1 mmol/L Final 08/22/2022 4.1 3.7 - 5.1 mmol/L Final Sodium Date Value Ref Range Status 08/30/2022 137 136 - 144 mmol/L Final 08/23/2022 136 136 - 144 mmol/L Final 08/22/2022 135 (L) 136 - 144 mmol/L Final BUN Date Value Ref Range Status 08/30/2022 11 9 - 24 mg/dL Final Creatinine Date Value Ref Range Status 08/30/2022 0.90 0.73 - 1.22 mg/dL Final 08/23/2022 0.89 0.73 - 1.22 mg/dL Final Creatinine (POCT) Date Value Ref Range Status 10/29/2024 1.10 0.7 - 1.4 mg/dL Final 10/29/2023 1.00 0.7 - 1.4 mg/dL Final documented in this encounterSelect [facility]25 Telephone encounter Note * Telephone Encounter - Everardo Mayen - 12/09/2024 3:15 PM EST Referring Physician: Dr Colton Urrutia Address: [address] [place], [place] [id number] Phone #: [phone] Fax #: [phone] Reason for referral: EBUS with biopsy Is there CareEverywhere Records: Yes Is there Imaging available: Yes - Recent CT: Yes - Date of CT: 10/29/24 at [facility] Leyla from Dr Urrutia's office requesting callback to confirm once patient has been scheduled at [phone] Please call Coleen to schedule at [phone] [facility]01-22-2025 Miscellaneous Notes* Telephone Encounter - Everardo Mayen - 12/09/2024 3:15 PM EST Referring Physician: Dr Colton Urrutia Address: [address] , [place] [id number] Phone #: [phone] Fax #: [phone] Reason for referral: EBUS with biopsy Is there CareEverywhere Records: Yes Is there Imaging available: Yes - Recent CT: Yes - Date of CT: 10/29/24 at [facility] Leyla from Dr Urrutia's office requesting callback to confirm once patient has been scheduled at [phone] Please call Coleen to schedule at [phone] documented in this encounterSelect [facility]-2024 NoteHNO ID: [id number] Author: DENIA OBRIEN APRN.CNP Service: ? Author Type: Nurse Practitioner Type: Progress Notes Filed: 11/03/2024 14:26 Note Text: Incidental Lung Nodule Enrollment Outreach attempt: 1st Attempt Outreach status: Complete Enrolled in Lung Nodule program: Yes Lung Nodule outreach: Enrolled Lung Nodule Program Location: [place] Encounter created for lung nodules reported on ct chest imaging dated 10/29/2024 completed for routine monitoring after type A dissection ascending aneurysm repair noting: enlarging RUL nodular opacity with current measurements 23x16 mm, previously 20 mm in 2022. Results were discussed with the patient by cardiac surgery team with referral to pulmonary placed. I sent a scheduling request to coordinate a new patient provider visit. Denia Obrien, [facility]12-17-2024 History of Present illness Narrative* Denia Obrien APRN.CNP - 11/03/2024 2:19 PM EST Incidental Lung Nodule Enrollment Outreach attempt: 1st Attempt Outreach status: Complete Enrolled in Lung Nodule program: Yes Lung Nodule outreach: Enrolled Lung Nodule Program Location: [place] Encounter created for lung nodules reported on ct chest imaging dated 10/29/2024 completed for routine monitoring after type A dissection ascending aneurysm repair noting: enlarging RUL nodular opacity with current measurements 23x16 mm, previously 20 mm in 2022. Results were discussed with the patient by cardiac surgery team with referral to pulmonary placed. I sent a scheduling request to coordinate a new patient provider visit. Denia Obrien NP documented in this encounterSelect Medical [facility]12-17-2024 NotePatient Outreach ([facility] YARI LOPEZ ([id number]) 1955 M Date Time Provider Department 11/03/24 DENIA OBRIEN [facility] [place] During your visit today, we recorded the following information about you: Denia Obrien APRN.CNP 11/03/2024 2:26 PM Signed Incidental Lung Nodule Enrollment Outreach attempt: 1st Attempt Outreach status: Complete Enrolled in Lung Nodule program: Yes Lung Nodule outreach: Enrolled Lung Nodule Program Location: [place] Encounter created for lung nodules reported on ct chest imaging dated 10/29/2024 completed for routine monitoring after type A dissection ascending aneurysm repair noting: enlarging RUL nodular opacity with current measurements 23x16 mm, previously 20 mm in 2022. Results were discussed with the patient by cardiac surgery team with referral to pulmonary placed. I sent a scheduling request to coordinate a new patient provider visit. Denia Obrien NP Allergies As of Date: 11/03/2024 Noted Allergy Reaction PENICILLINS 12/26/2010 7 - Swelling Date Reviewed: 10/29/2024 Reviewed by: Lina Hidalgo MA - Fully Assessed Prescriptions as of 11/03/2024 - predniSONE (DELTASONE) 10 mg tablet Take [...] once daily. Problem List As Of Date 11/03/2024 Noted Resolved Coronary arteriosclerosis in crow artery [I25*12/14/2013 Chest discomfort [R07.89] 12/14/2013 08/16/2022 Heart murmur, systolic [R01.1] 12/14/2013 08/16/2022 SOB (shortness of breath) on exertion [R06.02] 12/14/2013 08/16/2022 Fatigue [R53.83] 12/14/2013 08/16/2022 Hyperlipidemia LDL goal <70 [E78.5] 07/25/2016 Tobacco abuse [Z72.0] 07/25/2016 Essential hypertension [I10] 01/17/2017 S/P CABG x 4 [Z95.1] 03/10/2020 Aortic dissection (HCC) [I71.00] 08/16/2022 Nicotine use disorder, F17.2 [F17.200] 08/17/2022 Obesity, Class I, BMI 30-34.9 [E66.811] 08/17/2022 On mechanically assisted ventilation (HCC) [Z99*08/18/2022 08/18/2022 CAD (coronary artery disease) [I25.10] 08/18/2022 Postoperative pain [G89.18] 08/18/2022 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 Naheed Cooper F/up - lung nodule eval *CTA A/P 10/29/24* ERTH [facility]12-13-2024 Miscellaneous Notes* Telephone Encounter - Rama García - 10/30/2024 3:07 PM EST LMOM to schedule office visit with Dr. Hinson Est F/up - lung nodule eval *CTA A/P 10/29/24* documented in this encounterSelect Medical [facility] [place]12-12-2024 History of Present illness Narrative* Lynne Griffith APRN.FLAT LOCK OPERATOR - 10/29/2024 10:30 AM EST Images from the original note were not included. FOLLOW-UP Aortic Aneurysm, Aortic Dissection, and Aortic Repair Patient Type: Established REFERRED BY: Cristi Isaac M.D. PCP: Tania West [address] [facility] [address] [place] [address] Other Physician: Cristi Isaac [address] [facility] [address] Patient Mr. Lopez returns, now 12 months following the last assessment of his arch and ascendingAortic Repair. The patient is asymptomatic. Last year had a few bouts of confusion and visual disturbances, they though it was TIAs but after evaluation it was determined they were not TIAs. 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 Since his surgery, he has had no recurrence of confusion of vision issues. I do not have access to any reports. 2023 Left carotid subclavian bypass (per patient) 08/17/2022 -- Dr Isaac Chronic Type A Dissection Redo Median Sternotomy, Type A Aortic Dissection Repair (Ascending and Hemiarch Replacement 30 HEMASHIELD CHEHALIS T Graft with Reimplantation of Proximal RSVG [...] and reveals a maximum aortic diameter of 49 mm in the area of Aortic root.Overall, aortic root has been stable (47 mm in 2021). Beyond the graft, there is no residual dissection and normal caliber aorta. The Echocardiogram from 08/16/22 reveals normal ventricular [...] in the non-coronary sinus. Rest of the crow thoracoabdominal aorta is normal in calibre with no acute aortic pathology. 3. A 20 mm focal cluster of pulmonary nodular opacities is seen in the right upper lobe. Incidental Finding: Follow-up Acuity: Incidental Finding: Part solid: 6 mm or greater Routing Code: RI_1 Recommendation: Consult to Lung Nodule Clinic - [id number] Time Frame: at the discretion of the [...] be communicated with the ordering provider via Exhbit staff message by Imaging Support Services within 2 business days of report finalization. Marklogic Developer: PSCB Transcribe Date/Time: Oct 29 2023 10:26A Dictated by : KRISTEN STINSON MD This examination was interpreted and the report reviewed and electronically signed by: KRISTEN STINSON MD on Oct 30 2023 11:30AM EST Creatinine (POCT) Date Value Ref Range Status 10/29/2024 1.10 0.7 - 1.4 mg/dL Final Impression: The patient is doing well, after the last visit. Mr Lopez has not followed up on the lung nodule that was discussed at the last visit. (I71.010) Dissection of ascending aorta (HCC) (primary encounter diagnosis) Comment: (Z98.890, Z86.79) S/P ascending aortic aneurysm repair Plan: Follow Up CTA (R91.1) Lung nodule Comment: increase in size; RUL 23x16 mm Plan: Discussed findings with patient via phone, he will follow up with PCP and/or molecular physicist (E04.1) Thyroid nodule greater than or equal to 1.5 cm in diameter incidentally noted on imaging study Comment: 20 mm, right lobe Plan:Discussed findings with patient via phone, he will follow up with PCP and/or job coach Plan: He will return to see me in 12 months The following studies will be necessary: - CT gated thoracic aorta with contrast - Echocardiogram - Continue to follow up with local cardiology. Lynne Griffith APRN.FLAT LOCK OPERATOR documented in this encounterSelect Medical Specialty [facility] [place]12-12-2024 NoteHNO ID: [id number] Author: LYNNE GRIFFITH APRN.FLAT LOCK OPERATOR Service: ? Author Type: Clinical Nurse Specialist Type: Progress Notes Filed: 10/30/2024 11:16 Note Text: FOLLOW-UP Aortic Aneurysm, Aortic Dissection, and Aortic Repair Patient Type: Established REFERRED BY: Cristi Isaac M.D. PCP: Tania West [address] [place], [place] [address] [address] [place] [id number] Other Physician: Cristi Isaac [address] [facility] [address] Patient Mr. Lopez returns, now 12 months following the last assessment of his arch and ascending Aortic Repair. The patient is asymptomatic. Last year had a few bouts of confusion and visual disturbances, they though it was TIAs but after evaluation it was determined they were not TIAs. 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 Since his surgery, he has had no recurrence of confusion of vision issues. I do not have access to any reports. 2023 Left carotid subclavian bypass (per patient) 08/17/2022 -- Dr Isaac Chronic Type A Dissection Redo Median Sternotomy, Type A Aortic Dissection Repair (Ascending and Hemiarch Replacement 30 HEMASHIELD CHEHALIS T Graft with Reimplantation of Proximal RSVG [...] and reveals a maximum aortic diameter of 49 mm in the area of Aortic root. Overall, aortic root has been stable (47 mm in 2021). Beyond the graft, there is no residual dissection and normal caliber aorta. The Echocardiogram from 08/16/22 reveals normal ventricular [...] in the non-coronary sinus. Rest of the crow thoracoabdominal aorta is normal in calibre with no acute aortic pathology. 3. A 20 mm focal cluster of pulmonary nodular opacities is seen in the right upper lobe. Incidental Finding: Follow-up Acuity: Incidental Finding: Part solid: 6 mm or greater Routing Code: RI_1 Recommendation: Consult to Lung Nodule Clinic - [id number] Time Frame: at the discretion of the [...] be communicated with the ordering provider via Exhbit staff message by Imaging Support Services within 2 business days of report finalization. Marklogic Developer: SILVESTRE Transcribe Date/Time: Oct 29 2023 10:26A Dictated by : KRISTEN STINSON MD This examination was interpreted and the report reviewed and electronically signed by: KRISTEN STINSON MD on Oct 30 2023 11:30AM EST Creatinine (POCT) Date Value Ref Range Status 10/29/2024 1.10 0.7 - 1.4 mg/dL Final Impression: The patient is doing well, after the last visit. Mr Lopez has not followed up on the lung nodule that was discussed at the last visit. (I71.010) Dissection of ascending aorta (HCC) (primary encounter diagnosis) Comment: (Z98.890, Z86.79) S/P ascending aortic aneurysm repair Plan: Follow Up CTA (R91.1) Lung nodule Comment: increase in size; RUL 23x16 mm Plan: Discussed findings with patient via phone, he will follow up with PCP and/or molecular physicist (E04.1) Thyroid nodule greater than or equal to 1.5 cm in diameter incidentally noted on imaging study Comment: 20 mm, right lobe Plan:Discussed findings with patient via phone, he will follow up with PCP and/or job coach Plan: He will return to see me in 12 months The following studies will be necessary: - CT gated thoracic aorta with contrast - Echocardiogram - Continue to follow up with local cardiology. Lynne Griffith APRN.[facility]12-12-2024 History of Present illness Narrative* Lluvia Sapp RN - 10/29/2024 9:45 AM EST Radiology Service Progress Note DATE OF SERVICE: October 29, 2024 TIME: 9:24 AM PATIENT WEIGHT: 220 LBS PATIENT IDENTITY VERIFICATION COMPLETED USING TWO [...] 61 years and Diabetic: Yes. Current medication(s): Metformin and glimeperide. Patient currently has insulin pump?: No. CREATININE: Creatinine Date Value Ref Range Status 08/30/2022 0.90 0.73 - 1.22 mg/dL Final Creatinine (POCT) Date Value Ref Range Status 10/29/2024 1.10 0.7 - 1.4 mg/dL Final 10/29/2023 1.00 0.7 - 1.4 mg/dL Final eGFR (POCT) Date Value Ref Range Status 10/29/2024 >60 mL/min/1.73 m2 Final eGFR- Date Value Ref Range Status 02/11/2020 >60 Final P.O.C.T. RESULTS: POC done: Yes, See Lab Tab October 29, 2024 TREATMENT: No Hydration needed. IV SITE: Ambulatory: A peripheral IV was started in the Right antecubital site with a Angio cath: 20 gauge. and A Saline lock was inserted per protocol IV SITE APPEARANCE: Clean,Dry and Intact SIGNATURE: Lluvia Sapp RN PATIENT NAME: Yari Lopez DATE: October 29, 2024 TIME: 9:24 AM * Ara Martinez RT(R) - 10/29/2024 9:45 AM EST Radiology Service Progress Note PATIENT NAME: Yari Lopez DATE OF SERVICE: October 29, 2024 TIME: 9:39 AM PATIENT IDENTITY VERIFICATION COMPLETED USING TWO (2) IDENTIFIERS: Name and Date of confirmedby patient verbally and Name and Date of confirmed by identification band. FALL SCREENING: Has the patient had 2 falls in the last year or 1 fall with injury or currently using an Ambulatory Assistive Device (Walker, Cane, Wheelchair, Crutches, etc.)? No PATIENT GENDER DATA: Male PATIENT RELEVANT IMPLANT DATA REVIEWED: Yes PATIENT PRESENTS WITH AN IMPLANTABLE OR ATTACHED ELECTRONIC SERVICE TECHNICIAN: No RADIOLOGY DEPARTMENT: CT; Exam(s) Completed: Cardiac PERIPHERAL IV DATA: Site assessment: Clean,Dry and Intact, Site disposition Discontinued SIGNED BY: RT Anthony(R) October 29, 2024 9:39 AM documented in this encounterCleveland [id number] NoteHNO ID: [id number] Author: LLUVIA SAPP RN Service: Radiology Author Type: Registered Nurse Type: Progress Notes Filed: 10/29/2024 09:33 Note Text: Radiology Service Progress Note DATE OF SERVICE: October 29, 2024 TIME: 9:24 AM PATIENT WEIGHT: 220 LBS PATIENT IDENTITY VERIFICATION COMPLETED USING TWO [...] 61 years and Diabetic: Yes. Current medication(s): Metformin and glimeperide. Patient currently has insulin pump?: No. CREATININE: Creatinine Date Value Ref Range Status 08/30/2022 0.90 0.73 - 1.22 mg/dL Final Creatinine (POCT) Date Value Ref Range Status 10/29/2024 1.10 0.7 - 1.4 mg/dL Final 10/29/2023 1.00 0.7 - 1.4 mg/dL Final eGFR (POCT) Date Value Ref Range Status 10/29/2024 >60 mL/min/1.73 m2 Final eGFR- Date Value Ref Range Status 02/11/2020 >60 Final P.O.C.T. RESULTS: POC done: Yes, See Lab Tab October 29, 2024 TREATMENT: No Hydration needed. IV SITE: Ambulatory: A peripheral IV was started in the Right antecubital site with a Angio cath: 20 gauge. and A Saline lock was inserted per protocol IV SITE APPEARANCE: Clean,Dry and Intact SIGNATURE: Lluvia Sapp RN PATIENT NAME: Yari Lopez DATE: October 29, 2024 TIME: 9:24 [facility]12-12-2024 NoteHNO ID: [id number] Author: ARA MARTINEZ RT(R) Service: Radiology Author Type: Technologist Type: Progress Notes Filed: 10/29/2024 09:39 Note Text: Radiology Service Progress Note PATIENT NAME: Yari Lopez DATE OF SERVICE: October 29, 2024 TIME: 9:39 AM PATIENT IDENTITY VERIFICATION COMPLETED USING TWO [...] Male PATIENT RELEVANT IMPLANT DATA REVIEWED: Yes PATIENT PRESENTS WITH AN IMPLANTABLE OR ATTACHED ELECTRONIC SERVICE TECHNICIAN: No RADIOLOGY DEPARTMENT: CT; Exam(s) Completed: Cardiac PERIPHERAL IV DATA: Site assessment: Clean,Dry and Intact, Site disposition Discontinued SIGNED BY: RT Anthony(R) October 29, 2024 9:39 [facility]12-21-2023 NotePatient Outreach ([facility]) YARI LOPEZ ([id number]) 1955 M Date Time Provider Department 11/07/23 DELFINO SANCHEZ [facility] During your visit today, we recorded the following information about you: Delfino Sanchez, MARKETING ACCOUNT MANAGER.ELDERLY CAREGIVER 11/07/2023 9:37 AM Signed Incidental Lung Nodule Enrollment Outreach attempt: 1st Attempt Outreach status: Complete Enrolled in Lung Nodule program: Referred Lung Nodule outreach: Needs outreach Lung Nodule Program Location: [place] Letter sent Allergies As of Date: 11/07/2023 [...] Date 11/07/2023 Noted Resolved Coronary arteriosclerosis in crow artery [I25*12/14/2013 Chest discomfort [R07.89] 12/14/2013 08/16/2022 [...] Text Encounter Status:Closed by DELFINO SANCHEZ on 11/07/23[facility] 11-07-2023 NoteHNO ID: [id number] Author: Delfino Sanchez, MARKETING ACCOUNT MANAGER.ELDERLY CAREGIVER Service: ? Author Type: Nurse Practitioner Type: Progress Notes Filed: 11/07/2023 9:37 AM Note Text: Incidental Lung Nodule Enrollment Outreach attempt: 1st Attempt Outreach status: Complete Enrolled in Lung Nodule program: Referred Lung Nodule outreach: Needs outreach Lung Nodule Program Location: [facility]11-03-2023 Miscellaneous Notes* Addendum Note - Wes Lei RN - 09/20/2023 10:49 AM EDTAddended by: WES LEI on: 09/20/2023 10:49 AM Modules accepted: Orders * Telephone Encounter - Wes Lei RN - 09/20/2023 10:33 AM EDT Called patient to inform him that Dr. Isaac is recommending he come in for a CTA (chest/abdomen/pelvis) and follow up appointment with Lynne QUIGLEY. left detailed message with the plan andto call back with any further questions. Orders placed and sent to J4-1 to be scheduled. Wes Lei RN documented in this encounterSelect Medical Specialty [facility] [place]12-12-2022 History of Present illness Narrative* Tory Verduzco RN - 10/29/2022 8:30 AM EST Radiology Service Progress Note DATE OF SERVICE: [...] creatinine assay has traceable calibration to isotope dilution- mass spectrometry. Refer to KDIGO guidelines for clinical interpretation. In patients with unstable renal function, e.g. those with acute kidney injury, the eGFRmay not accurately reflect actual GFR. eGFR- Date Value Ref Range Status 02/11/2020 >60 Final P.O.C.T. RESULTS: N/A October 29, 2022 TREATMENT: N/A IV SITE: Ambulatory: A peripheral IV was started in the Right antecubital site with a Angio cath: 20 gauge. IV SITE APPEARANCE: Clean,Dry and Intact SIGNATURE: Tory Verduzco RN PATIENT NAME: Yari Lopez DATE: October 29, 2022 TIME: 8:49 AM * RT Ruiz(R) - 10/29/2022 8:30 AM EST Radiology Service Progress Note PATIENT NAME: Yari Lopez DATE OF SERVICE: October 29, 2022 TIME: 9:08 AM PATIENT IDENTITY VERIFICATION COMPLETED USING TWO (2) IDENTIFIERS: Name and Date of confirmedby patient verbally and Name and Date of [...] 29, 2022 9:08 AM documented in this encounterSelect Medical [facility]10-13-2022 History of Present illness Narrative* Acacia Eng APRN.ELDERLY CAREGIVER - 08/30/2022 10:51 AM EDT Images from the original note were not included. [facility] Department of Cardiovascular Medicine DEPARTMENT [...] ARTERIAL GRAFT(S) 03/08/2020 CARDIAC CATH 12/31/2019 @ [facility] by Dr. He CHEST TUBE - INSERT 1984 HAD PNEUMONIA FOOT SURGERY HX plantars wart outer edge of foot HERNIA REPAIR HX ALLERGIES Allergen Reactions Penicillins Swelling Current Outpatient Medications Medication Sig losartan (COZAAR) 25 mg tablet Take a half tablet by mouth daily with lunch. aluminum-magnesium hydroxide-simethicone (MAALOX,MYLANTA,MAG-AL PLUS) 200-200-20 mg/5 mL suspensionTake 30 mL by mouth as needed (Second [...] (Oral) Resp 12 Ht 180.3 cm (5' 11) Wt 100.2 kg (221 lb) SpO2 96% BMI 30.82 kg/m Appearance: well developed, well nourished Neck: No neck vein distention Cardiac: regular S1, S2 Lungs: Clear breath sounds bilaterally without wheeze or dullness Abdomen: soft, non tender Extremities: No edema Sternum: stable Sternotomy site: healing Wound: NA SV [place] sites: healing Procedures: Sutures removed from chest [...] bilateral pleural effusions Coronary artery disease involving crow coronary artery of crow heart without angina pectoris (primary encounter diagnosis): ASA, BB, statin ECG 08/30/2022 NORMAL SINUS RHYTHM POSSIBLE LEFT ATRIAL ENLARGEMENT COMPLETE RIGHT BUNDLE BRANCH BLOCK ABNORMAL ECG 2. 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al angiopathy without gangrene, without long-termcurrent use of insulin (HCC): restart metformin and [...] SOB, or pleural effusion SBE prophylaxis reviewed Acacia Eng APRN.ELDERLY CAREGIVER documented in this encounterSelect Medical Specialty [facility] [place]10-13-2022 History of Present illness Narrative* RT Alvaro(R) - 08/30/2022 9:45 AM EDT Radiology Service Progress Note PATIENT NAME: Yari Lopez DATE OF SERVICE: August 30, 2022 TIME: 9:54 AM PATIENT IDENTITY VERIFICATION COMPLETED USING TWO (2) IDENTIFIERS: Name and Date of confirmedby patient verbally. FALL SCREENING: Has the patient [...] 30, 2022 9:54 AM documented in this encounterSelect Medical Specialty [facility] [place]10-10-2022 Miscellaneous Notes* Telephone Encounter - Liana Avila RN - 08/27/2022 9:16 AM EDT [facility] Center Inbound Phone Encounter DATE of SERVICE: 08/27/2022 TIME of SERVICE: 9:16 AM Status: [facility] Service/Provider: Cardiac Surgery Cristi Isaac M.D. Reason for call: Follow-up Appointment Contact information: [phone] Resolution: Reinforced education Comments: Patient calling the TI resource center to schedule/reschedule CTS appointment for 08/28. He needs to make his 3 month follow up apt with Dr. Isaac. He was reminded to follow up with his PCP 7-10 days post surgery and his Nov cardiology apt with Dr. Sullivan. Given number to CTS scheduling [phone] and directly connected. Liana Avila RN Date of Resolution: 08/27/2022 Time of Resolution 9:16 AM documented in this encounterSelect Medical Specialty [facility] [place]10-07-2022 Miscellaneous Notes* Telephone Encounter - Lisa Iyer RN - 08/24/2022 2:54 PM EDT 1. Have you noticed any increased shortness [...] What type of pain and where? (HVI RedFlag Question) Yes, Dull Pain Patient reports increased [...] appointment? (Standard Question) Yes documented in this encounterSelect Medical Specialty [facility] [place]10-03-2022 History of Past illness Narrative* Problem Noted [...] of this encounter (statuses as of 08/21/2022) [facility] History of Past illness Narrative* Problem Noted [...] of this encounter (statuses as of 08/24/2022) [facility] History of Past illness Narrative* Problem Noted [...] of this encounter (statuses as of 08/27/2022) [facility] History of Past illness Narrative* Problem Noted [...] of this encounter (statuses as of 08/30/2022) [facility] History of Past illness Narrative* Problem Noted [...] of this encounter (statuses as of 08/31/2022) [facility] History of Past illness Narrative* Problem Noted [...] of this encounter (statuses as of 10/30/2022) [facility] History of Past illness Narrative* Problem Noted [...] of this encounter (statuses as of 09/20/2023) [facility] Procedure note* Adrianna Parra APRN.CNP - 08/16/2022 5:38 PM EDT Images from [...] DATE: 08/16/22 TIME: 10:20 documented in this encounterSelect Medical Specialty [facility] [place]09-29-2022 History of Present illness Narrative* Adrianna Parra APRN.CNP - 08/16/2022 2:01 PM EDT Images from the original note were not included. Critical Care Transport Note Patient Name: Yari Lopez Service Date: 08/16/2022 Referring Facility: [facility] Accepting Facility: [facility] SUBJECTIVE/CHIEF COMPLAINT: I feel fine REASON FOR TRANSPORT: Higher level of cardiovascular care History of Present Illness: The following history is what was known to CCT team at time of given care and summarized through: referring nursing report Yari Lopez is a 67 year old male with a past medical history significant for CAD s/p CABG anddiabetes who presented to [facility] on 08/16/2022 for evaluation and a CT [...] physician [facility] at the referring facility. Patient condition attime of exam was: Acutely ill and critically ill. Due to the unique circumstances of the patient, it was determined that this was the closest, most appropriate facility by referring physician. The physician managing the patient requested the [facility] Critical Care Transport Team transport and treat the patient for the purpose of tertiary care, evaluation, and management of his cardiac condition(s). Air medical transport was requested to reduce the [id number] time, 25 minutesby air vs. approximately 1 [...] or any other complaints when questioned. See YAKUTAT above. PAST MEDICAL HISTORY: PAST MEDICAL HISTORY Diagnosis Date Coronary artery disease without angina pectoris Hernia 1971 Hypercholesteremia Hypertension IBS (irritable bowel syndrome) Osteoarthritis of right knee PAST SURGICAL HISTORY: PAST SURGICAL HISTORY Procedure Laterality Date CABG (4) VEIN GRAFTS & ARTERIAL GRAFT(S) 03/08/2020 CARDIAC CATH 12/31/2019 @ [facility] by Dr. He CHEST TUBE - INSERT [...] s/p CABG and diabetes who presented to [facility] on 08/16/2022 for evaluation and a CT scan Type A Aortic Dissection: - CT read noted above - Denies chest pain, back pain or shortness of breath - Goal HR 60's - Metoprolol administered - Goal SBP 100-120 - Nitroprusside started and titrated - Monitor hemodynamics - Expedite transfer to [facility] The transport was completed without significant incident or change in the patient's status. The patient was transported to the [facility] by [employer]) for tertiary and/or quaternary evaluation and management of his Emergent Surgical condition(s). Upon arrival to the receiving facility, a [id number] report was given to bedside nursing staff [id number] and SYSTEMS ANALYSIS MANAGER Patient care was transferred. The patient condition [...] Adrianna Parra APRN.CNP Acute Care Nurse Practitioner [facility] Critical [facility]* Diagnosis Onset Date Resolution Status MISTY (obstructive sleep apnea) acute Status post aortic dissection repair July, acute Atherosclerotic heart diseas e of crow coronary artery without angina pectoris chronic Essential hypertension chron ic Pure hypercholesterolemia ronic MISTY (obstructive sleep apnea) acute Status post aortic dissection repair July, acute Atherosclerotic heart diseas e of crow coronary artery without angina pectoris chronic Essential hypertension chron ic Pure hypercholesterolemia [facility] Work Phone: 1(478) 407-481509-01-2022 Evaluation note* Diagnosis Onset Date Resolution Status Status post aortic dissection repair July, acute Essential hypertension chron ic History of coronary artery bypass surgery February, chronic Pure hypercholesterolemia ch ronic Tobacco abuse [facility] Work Phone: 1(169) 915-924604-01-2020 Evaluation note* Diagnosis Onset Date Resolution Status Atherosclerotic heart diseas e of crow coronary artery without angina pectoris chronic Essential hypertension chron ic History of coronary artery bypass surgery February, chronic Pure hypercholesterolemia [facility] Work Phone: 1(522) 520-787501-27-2014 History of Past illness Narrative* Problem Noted Date Resolved Date Chest discomfort 12/14/2013 08/16/2022 Heart murmur, systolic 12/14/2013 SOB (shortness of breath) on exertion 12/14/2013 08/16/2022 Fatigue 12/14/2013 08/16/2022 documented as of this encounter (statuses as of 08/17/2022) [facility] [place] [facility]* Diagnosis Onset Date Resolution Status HALE (dyspnea on exertion) ac [place] Fatigue acute MISTY (obstructive sleep apnea) acute Atherosclerotic heart diseas e of crow coronary artery without angina pectoris chronic Essential hypertension chron ic History of coronary artery bypass surgery February, chronic Pure hypercholesterolemia ch ronic Tobacco abuse [facility] Work Phone: Evaluation note* Diagnosis Dissection of aorta, unspecified portion of aorta (HCC)- Primary Essential hypertension Unspecified essential hypertension documented in this encounter [facility] note* Diagnosis Coronary artery disease involving crow coronary artery of crow heart without angina pectoris- Primary S/P CABG x 4 Postsurgical aortocoronary bypass status 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al angiopathy without gangrene, without long-term current use of insulin (HCC) Essential hypertension Unspecified essential hypertension Postoperative pain Other acute postoperative pain documented in this encounter [facility] [place] [facility]* Diagnosis Surgery follow-up Follow-up examination, following unspecified surgery documented in this encounter [facility] note* Diagnosis Onset Date Resolution Status HALE (dyspnea on exertion) ac [place] Fatigue acute MISTY (obstructive sleep apnea) acute Atherosclerotic heart diseas e of crow coronary artery without angina pectoris chronic Essential hypertension chron ic History of coronary artery bypass surgery February, chronic Pure hypercholesterolemia ch ronic Tobacco abuse chronic MISTY (obstructive sleep apnea) acute Status post aortic dissection repair July, acute Atherosclerotic heart diseas e of crow coronary artery without angina pectoris chronic Essential hypertension chron ic Pure hypercholesterolemia ch ronic MISTY (obstructive sleep apnea) acute Status post aortic dissection repair July, acute Atherosclerotic heart diseas e of crow coronary artery without angina pectoris chronic Essential hypertension chron ic [facility] Work Phone: Evaluation note* Diagnosis Dissection of thoracic aorta Dissection of aorta, thoracic documented in this encounter [facility] note* Diagnosis Dissection of ascending aorta (HCC)- Primary Dissection of aorta, thoracic Encounter for other preprocedural examination documented in this encounter [facility] noteNo assessment information availableWAvita [facility] Work [facility]: Evaluation note* Diagnosis Dissection of ascending aorta (HCC) Dissection of aorta, thoracic S/P ascending aortic aneurysm repair Other postprocedural status Lung nodule Solitary pulmonary nodule Disorder of artery or arteriole (HCC) Unspecified disorders of arteries and arterioles Encounter for other preprocedural examination documented in this encounter [facility] [place] [facility]* Diagnosis Dissection of ascending aorta (HCC)- Primary Dissection of aorta, thoracic S/P ascending aortic aneurysm repair Other postprocedural status Lung nodule Solitary pulmonary nodule Disorder of artery or arteriole (HCC) Unspecified disorders of arteries and arterioles Thyroid nodule greater than or equal to 1.5 cm in diameter incidentally noted on imaging study documented in this encounter [facility] [place] [facility]* Diagnosis Lung nodules- Primary Other nonspecific abnormal finding of lung field Pre-op testing Preoperative examination, unspecified documented [facility] this encounter [facility] [place] [facility]* Diagnosis Right upper lobe pulmonary nodule- Primary Neoplasm of lung Neoplasm of unspecified nature of respiratory system Malignant neoplasm of upper lobe of right lung (HCC) Malignant neoplasm of upper lobe, bronchus or lung Pre-operative examination Preoperative examination, unspecified Bronchiolar disease Other diseases of trachea and bronchus documented in this encounter [facility] [place] [facility]* Diagnosis Lung nodules Other nonspecific abnormal finding of lung field Pre-op testing Preoperative examination, unspecified Bronchiolar disease Other diseases of trachea and bronchus documented in this encounter [facility] [place] [facility]* Diagnosis 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)- Primary documented in this encounter [facility] [place] [facility]* Diagnosis Malignant neoplasm of lung, unspecified laterality, unspecified part of lung (HCC)- Primary documented in this encounter [facility] [place] [facility]* Diagnosis Malignant neoplasm of upper lobe of right lung (HCC) Malignant neoplasm of upper lobe, bronchus or lung documented in this encounter [facility] [place] [facility]* Diagnosis Personal history of malignant neoplasm of bronchus and lung- Primary Dissection of thoracic aorta, unspecified part (HCC) 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al angiopathy without gangrene, without long-term current use of insulin (HCC) Lung nodule Solitary pulmonary nodule documented in this encounter [facility] [place] [facility]* Diagnosis Dissection of thoracic aorta, unspecified part (HCC) 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al angiopathy without gangrene, without long-term current use of insulin (HCC) Personal history of malignant neoplasm of bronchus and lung Lung nodule Solitary pulmonary nodule documented in this encounter [facility] note* Diagnosis Lung nodule- Primary Solitary pulmonary nodule Dissection of thoracic aorta, unspecified part (HCC) 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al angiopathy without gangrene, without long-term current use of insulin (HCC) Personal history of malignant neoplasm of bronchus and lung documented in this encounter [facility] [place] [facility]* Diagnosis Multinodular thyroid- Primary Nontoxic multinodular goiter Personal history of malignant neoplasm of bronchus and lung Lung nodule Solitary pulmonary nodule documented in this encounter [facility] note* Diagnosis Malignant neoplasm of upper lobe of right lung (HCC)- Primary Malignant neoplasm of upper lobe, bronchus or lung Multinodular thyroid Nontoxic multinodular goiter Personal history of malignant neoplasm of bronchus and lung Lung nodule Solitary pulmonary nodule documented in this encounter [facility] note* Diagnosis Lung nodule- Primary Solitary pulmonary nodule documented in this encounter [facility] [place] [facility]* Diagnosis Malignant neoplasm of upper lobe of right lung (HCC)- Primary Malignant neoplasm of upper lobe, bronchus or lung documented in this encounter [facility] note* Diagnosis Research study patient- Primary documented in this encounter [facility] note* Diagnosis Malignant neoplasm of upper lobe of right lung (HCC)- Primary Malignant neoplasm of upper lobe, bronchus or lung Malignant neoplasm of unspecified part of unspecified bronchus or lung (HCC) documented in this encounter [facility] note* Diagnosis Research study patient- Primary documented in this encounter [facility] note* Diagnosis Research study patient- Primary documented in this encounter [facility] note* Diagnosis Onset Date Resolution Status Admit Date Carotid arterial disease acute July 06, 2025 8:18am S/P carotid endarterectomy acute July 06, 2025 8:18am [employer] Work Phone: Evaluation note* Diagnosis Malignant neoplasm of unspecified part of unspecified bronchus or lung (HCC) documented in this encounter [facility] note* Diagnosis Encounter for follow-up surveillance of lung cancer- Primary Unspecified follow-up examination History of lung cancer Personal history of malignant neoplasm of bronchus and lung documented in this encounter [facility] Discharge instructions Additional Instructions Please hold your atorvastatin while taking Paxlovid. You may resume this once the course of Paxlovid is complete.[facility] Work Phone: Reason for referral (narrative)* Outpatient Procedure (Routine) - Pending Review Specialty Diagnoses / Procedures Referred By Arjun lowery Referred To Contact [facility] Diagnoses Dissection of aorta, unspecified portion of aorta (HCC) Essential hypertension Procedures ECHO ECHO TTHRC R-T 2D W/WOM-MODE COMPL SPEC&COLR D Miguel Sullivan MD [address] [place] [address] [place] [address] Referral ID Status Reason Start Date Expiration Date Visits Requested Visits Authorized [id number] Pending Review Auto-Generat ed Referral 08/21/2022 08/21/2023 1 1 * Outpatient Procedure (Routine) - Pending Review Specialty Diagnoses / Procedures Referred By Arjun lowery Referred To Contact [facility] Diagnoses Dissection of aorta, unspecified portion of aorta (HCC) Essential hypertension Procedures ECG COMPLETE ECG ROUTINE ECG W/LEAST 12 LDS W/I&R Miguel Sullivan MD [address] [place] [address] [place] [address] [place] [address] Referral ID Status Reason Start Date Expiration Date Visits Requested Visits Authorized [id number] Pending Review Auto-Generat ed Referral 08/21/2022 08/21/2023 1 1 [facility] ([facility]ative[facility]No reason for referral information availableWAvita [facility] Work Phone: Reason for visit Narrative* MRI/CT (Routine) - Closed Specialty Diagnoses / Procedures Referred By Arjun lowery Referred To Contact CT IMAGING Diagnoses Lung nodules Pre-op testing Procedures CT CHEST WO IVCON DIAGNOSTIC COMPUTED TOMOGRAPHY THORAX W/O SAMUELT Boris Edge MD, PhD [address] [place] [address] Phone: tel: fax: [facility] [place] [address] Referral ID Status Reason Start Date Expiration Date V isits Requested Visits Authorized [id number] Closed Auto-Generate d Referral 12/10/2024 01/09/2026 1 1 [facility] for visit Narrative* MRI/CT (Routine) - Closed Specialty Diagnoses / Procedures Referred By Contac t Referred To Contact MR IMAGING Diagnoses Malignant neoplasm of upper lobe of right lung (HCC) Procedures MRI BRAIN WO/W IVCON MRI BRAIN BRAIN STEM W/O W/CONTRAST MATERIAL Dalia Augustine MD [address] [place] [address] Phone: tel: fax: [facility] [place] [phone] Referral ID Status Reason Start Date Expiration Date V isits Requested Visits Authorized [id number] Closed Auto-Generate d Referral 01/06/2025 04/05/2025 1 1 [facility] for visit Narrative* Diagnostic Procedure Only (Routine) - Closed Specialty Diagnoses / Procedures Referred By Contsuraj t Referred To Contact [facility] Diagnoses Neoplasm of lung Procedures NM PET/CT SKULL-THIGH INITIAL PET IMAGING CT ATTENUATION SKULL BASE MID-THIGH Dalia Augustine MD [address] [place] [address] Phone: tel: fax: [facility] [address] [place] [address] Phone: tel: Referral ID Status Reason Start Date Expiration Date V isits Requested Visits Authorized [id number] Closed Auto-Generate d Referral 01/18/2025 11/17/2025 1 0 [facility] Chief Complaint Chief Complaint Description Start Date right knee pain Preliminary chief co mplaint data, not yet signed by the author as of Instructions Instruction Description Start Date CompletedPlease follow-up wi th Primary Care Physician or Arm Maker for treatment or adjustment of medication regarding elevated blood pressure.Patient advised to follow-up with Primary Care Physician for BMI management. Advance Directives No Advanced Directives Records Found Advance Directive Response Recorded Date/ Time Advance Directives No December 8:07am Living Will No March 12, 2022 12:38pm Power of Portfolio Analyst No March 12 12:38pm Advance Directive Response Recorded Date/ Time Advance Directives No December 8:07am Living Will No August 16, 2022 9:16am Power of Portfolio Analyst No July 9:16am Latest Code Status on File Code Status [...] Code 03/15/2020 2:26 PM 08/16/2022 10:38 AM Advance Directive Response Recorded Date/ Time Advance Directives No December 7:07am Living Will No August 16, 2022 8:16am Power of Portfolio Analyst No July 8:16am Advance Directive Response Recorded Date/ Time Advance Directives on File No Novem 2021 8:41am Advance Directives No December 7:07am Living Will No October 17, 2 022 8:41am Power of Portfolio Analyst No October 17, 2022 8:41am Advance Directive Response Recorded Date/ Time Advance Directives No December 8:07am Living Will No April 13, 2023 9 :18am Power of Portfolio Analyst No April 13, 2023 9:18am Latest Code Status on File Code Status Date Activated Date Inactivated Comments Full Code 08/17/2022 1:34 PM 08/18/2022 1:15 AM Question Answer Comments Full Code Order Discussed With: Patient Code Status History Code Status Date Activated Date Inactivated Comments Full Code 03/15/2020 2:26 PM 08/16/2022 10:38 AM Advance Directive Response Recorded Date/ Time Advance Directives No December 7:07am Living Will No Piero 22nd, 2 023 9:27pm Power of Portfolio Analyst No November 08, 2023 9:27pm Advance Directive Response Recorded Date/ Time Advance Directives No December 8:07am Living Will No November 08, 2 023 10:27pm Power of Portfolio Analyst No November 08, 2023 10:27pm Date Activated Date Inactivated Comments 08/17/2022 1:34 PM 08/18/2022 1:15 AM Question Answer Comments Full Code Order Discussed With: Patient Date Activated Date Inactivated Comments 03/15/2020 2:26 PM 08/16/2022 10:38 AM Date Activated Date Inactivated Comments 08/17/2022 1:34 PM 08/18/2022 1:15 AM Question Answer Comments Full Code Order Discussed With: Patient Date Activated Date Inactivated Comments 03/15/2020 2:26 PM 08/16/2022 10:38 AM Advance Directive Response Recorded Date/ Time Living Will No April 27, 2024 12:17pm Power of Portfolio Analyst No April 27 12:17pm Advance Directives No December 8:07am Advance Directive Response Recorded Date/ Time Living Will No April 27, 2024 12:17pm Do you have a Healthcare Power of Portfolio Analyst? No April 27, 2024 12:17pm Advance Directives No December 8:07am Advance Directive Response Recorded Date/ Time Advance Directives No December 8:07am Assessments There may be information available, but it has not been provided by the sender. Review of System There may be information available, but it has not been provided by the sender. Family History No Family History Records Found Relationship Condition Age at Onset Recorded Date/T rajendra father Cardiac disease Unknown mother Cardiac disease Unknown Relationship Condition Age at Onset Recorded Date/T rajendra father Cardiac disease Unknown Coronary artery disease Unknown Hypertension Unknown mother Cardiac disease Unknown History of Present Illness There may be information available, but it has not been provided by the sender. Summary Purpose Chief Complaint and Reason for Visit Chief Complaint Admit Date 1 Y FU July 06, 2025 8: 18am Pain July 20, 2025 11:05am Reason for Visit Admit Date Carotid arterial disease July 06 8:18am S/P carotid endarterectomy July 06, 2025 8:18am Chief Complaint 6 M FU DISC DEGENERATION, LUMBAR REGION. 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 RX HERE 6 M FU E ORDERS E ORDERS Reason for Visit HALE (dyspnea on exer tion) Fatigue MISTY (obstructive sleep apnea) Atherosclerotic heart disease of crow coronary artery without angina pectoris Essential hypertension History of coronary artery bypass surgery Pure hypercholesterolemia Tobacco abuse Chief Complaint 6 M FU E ORDERS E ORDERS Reason for Visit HALE (dyspnea on exer tion) Fatigue MISTY (obstructive sleep apnea) Atherosclerotic heart disease of crow coronary artery without angina pectoris Essential hypertension History of coronary artery bypass surgery Pure hypercholesterolemia Tobacco abuse Chief Complaint 6 M FU E ORDERS E ORDERS DYSPNEA/SOB Reason for Visit HALE (dyspnea on exer tion) Fatigue MISTY (obstructive sleep apnea) Atherosclerotic heart disease of crow coronary artery without angina pectoris Essential hypertension History of coronary artery bypass surgery Pure hypercholesterolemia Tobacco abuse Chief Complaint 6 M FU E ORDERS E ORDERS DYSPNEA/SOB Thoracic aortic aneurysm, without rupture tired no drive Reason for Visit HALE (dyspnea on exer tion) Fatigue MISTY (obstructive sleep apnea) Atherosclerotic heart disease of crow coronary artery without angina pectoris Essential hypertension History of coronary artery bypass surgery Pure hypercholesterolemia Tobacco abuse Chief Complaint 6 M FU E ORDERS E ORDERS DYSPNEA/SOB Thoracic aortic aneurysm, without rupture tired no drive tired no drive Amb Documentation Aortic Dissection (CCF scanned) fu per PFM Reason for Visit HALE (dyspnea on exer tion) Fatigue MISTY (obstructive sleep apnea) Atherosclerotic heart disease of crow coronary artery without angina pectoris Essential hypertension History of coronary artery bypass surgery Pure hypercholesterolemia Tobacco abuse MISTY (obstructive sleep apnea) Status post aortic dissection repair Atherosclerotic heart disease of crow coronary artery without angina pectoris Essential hypertension Pure hypercholesterolemia MISTY (obstructive sleep apnea) Status post aortic dissection repair Atherosclerotic heart disease of crow coronary artery without angina pectoris Essential hypertension Pure hypercholesterolemia Chief Complaint 6 M FU E ORDERS E ORDERS DYSPNEA/SOB Thoracic aortic aneurysm, without rupture tired no drive tired no drive Amb Documentation Aortic Dissection (CCF scanned) fu per PFM POST AAA S/P CABG CABG, Z98.890 Reason for Visit HALE (dyspnea on exer tion) Fatigue MISTY (obstructive sleep apnea) Atherosclerotic heart disease of crow coronary artery without angina pectoris Essential hypertension History of coronary artery bypass surgery Pure hypercholesterolemia Tobacco abuse MISTY (obstructive sleep apnea) Status post aortic dissection repair Atherosclerotic heart disease of crow coronary artery without angina pectoris Essential hypertension Pure hypercholesterolemia MISTY (obstructive sleep apnea) Status post aortic dissection repair Atherosclerotic heart disease of crow coronary artery without angina pectoris Essential hypertension Pure hypercholesterolemia Chief Complaint E ORDERS DYSPNEA/SOB Thoracic aortic aneurysm, without rupture tired no drive tired no drive Amb Documentation Aortic Dissection (CCF scanned) fu per PFM POST AAA S/P CABG CABG, Z98.890 Reason for Visit MISTY (obstructive sle ep apnea) Status post aortic dissection repair Atherosclerotic heart disease of crow coronary artery without angina pectoris Essential hypertension Pure hypercholesterolemia MISTY (obstructive sleep apnea) Status post aortic dissection repair Atherosclerotic heart disease of crow coronary artery without angina pectoris Essential hypertension Pure hypercholesterolemia Chief Complaint Amb Documentation Aortic Dissection (CCF scanned) fu per PFM POST AAA S/P CABG CABG, Z98.890 CABG, Z98.890 Reason for Visit MISTY (obstructive sle ep apnea) Status post aortic dissection repair Atherosclerotic heart disease of crow coronary artery without angina pectoris Essential hypertension Pure hypercholesterolemia MISTY (obstructive sleep apnea) Status post aortic dissection repair Atherosclerotic heart disease of crow coronary artery without angina pectoris Essential hypertension Pure hypercholesterolemia Chief Complaint fall 6 M FU INT LABS Reason for Visit Status post aortic d issection repair Essential hypertension History of coronary artery bypass surgery Pure hypercholesterolemia Tobacco abuse Chief Complaint 6 M FU INT LABS LABS AND XRAY- FEVER Reason for Visit Status post aortic d issection repair Essential hypertension History of coronary artery bypass surgery Pure hypercholesterolemia Tobacco abuse Chief Complaint LABS AND XRAY- FEVER Chief Complaint FEVER 6 M FU PAIN- COPY PCP EORDER Reason for Visit Status post aortic d issection repair Essential hypertension History of coronary artery bypass surgery Pure hypercholesterolemia Tobacco abuse Chief Complaint 6 M FU PAIN- COPY PCP EORDER TIA VITOR TO READ Reason for Visit Status post aortic d issection repair Essential hypertension History of coronary artery bypass surgery Pure hypercholesterolemia Tobacco abuse Chief Complaint Admit Date PAIN- COPY PCP October 30, 2024 3:47pm OCCLUSION/STENOSIS OF CAROTID ARTERY Dec ember 2023 9:54am THYROID ABNORMALITY November 24, 2024 2: 21pm EORDERS- FROM 11/19/24 AND 12/01/24 December 02, 2024 10:32am THYROID NODULE January 19, 2025 1:45 pm FINE NEEDLE ASPIRATION OF R THYROID NODU LE January 19, 2025 3:20pm PAIN- COPY PCP January 25, 2025 7:3 3am Reason for Visit Admit Date Thyroid nodule incidentally noted on mahad ging study January 19, 2025 1:45pm Chief Complaint Admit Date OCCLUSION/STENOSIS OF CAROTID ARTERY Dec ember 2023 9:54am THYROID ABNORMALITY November 24, 2024 2: 21pm EORDERS- FROM 11/19/24 AND 12/01/24 December 02, 2024 10:32am RT THYROID NODULE January 19, 2025 8:00 am THYROID NODULE January 19, 2025 1:45 pm FINE NEEDLE ASPIRATION OF R THYROID NODU LE January 19, 2025 3:20pm PAIN- COPY PCP January 25, 2025 7:3 3am Chief Complaint Admit Date RT THYROID NODULE January 19, 2025 8:00 am THYROID NODULE January 19, 2025 1:45 pm FINE NEEDLE ASPIRATION OF R THYROID NODU LE January 19, 2025 3:20pm PAIN- COPY PCP January 25, 2025 7:3 3am Chief Complaint Admit Date 1 Y FU July 06, 2025 8: 18am Medications Administered Section Inactive Administered Medications - up to 3 most recent administrations Medication Order MAR Action Action Date Dose Rate Site metoprolol 5 mg injection (LOPRESSOR) 5 mg, INTRAVENOUS, ONCE, 1 dose, On Sat08/16/22 at 1430, Administer IV push over 2-5 minutes. Given 08/16/2022 10:11 AM EDT 5 mg IV sodium nitroprusside 50 mg in D5W 250 mL (NIPRIDE) 10-200 mcg/min (3-60 mL/hr), INTRAVENOUS, CONTINUOUS, Starting on Sat08/16/22 at 1430, Until Sat08/17/22 at 0851, Refrigerate [...] Referral Specialty Diagnoses / Procedures Referred By Contac t Referred To Contact Acacia Eng APRN.ELDERLY CAREGIVER [address] [place] [address] Referral ID Status Reason Start Date Expiration Date Visits Re quested Visits Authorized [id number] Closed 1 1 Specialty Diagnoses / Procedures Referred By Contac t Referred To Contact CT IMAGING Diagnoses Dissection of thoracic aorta Procedures CTA CHEST (GATED) W IVCON CT ANGIOGRAPHY CHEST W/CONTRAST/NONCONTRAST Colton Walter APRN.ELDERLY CAREGIVER [address] [place] [address] Ct Imaging Referral ID Status Reason Start Date Expiration Date V isits Requested Visits Authorized [id number] Closed Auto-Generate d Referral 10/17/2022 01/15/2023 1 1 Specialty Diagnoses / Procedures Referred By Contac t Referred To Contact CT IMAGING Diagnoses Dissection of ascending aorta (HCC) Encounter for other preprocedural examination Procedures CTA CHEST/ABD/PEL (GATED) W IVCON CT ANGIOGRAPHY CHEST W/CONTRAST/NONCONTRAST CT ANGIO ABD&PLVIS CNTRST MTRL W/WO CNTRST Cristi Walton MD [address] [place] [address] Ct Imaging [facility] Referral ID Status Reason Start Date Expiration Date Visits Requested Visits Authorized [id number] Authorized Auto-Generat ed Referral 09/20/2023 10/19/2024 1 1 Specialty Diagnoses / Procedures Referred By Contac t Referred To Contact Endocrinology Diagnoses Thyroid nodule greater than or equal to 1.5 cm in diameter incidentally noted on imaging study Procedures CONSULT TO ENDOCRINOLOGY OFFICE/OUTPATIENT NEW HIGH MDM 60 MINUTES Lynne Griffith, MARKETING ACCOUNT MANAGER.[facility] [address] [place] [address] Referral ID Status Reason Start Date Expiration Date Visits Requested Visits Authorized [id number] Authorized PCP Requested Referral 4 10/30/2025 1 1 Specialty Diagnoses / Procedures Referred By Contac t Referred [facility] Diagnoses Dissection of ascending aorta (HCC) S/P ascending aortic aneurysm repair Lung nodule Disorder of artery or arteriole (HCC) Procedures ECHO ECHO TTHRC R-T 2D W/WOM-MODE COMPL SPEC&COLR D Lynne Griffith, MARKETING ACCOUNT MANAGER.[facility] [address] [place] [address] [place] [address] Referral ID Status Reason Start Date Expiration Date Visits Requested Visits Authorized [id number] New Request Auto-Generat ed Referral 4 10/29/2025 1 1 Specialty Diagnoses / Procedures Referred By Contac t Referred To Contact CT IMAGING Diagnoses Dissection of ascending aorta (HCC) S/P ascending aortic aneurysm repair Lung nodule Disorder of artery or arteriole (HCC) Procedures CTA CHEST (GATED) W IVCON CT ANGIOGRAPHY CHEST W/CONTRAST/NONCONTRAST Lynne Griffith, MARKETING ACCOUNT MANAGER.[facility] [address] [place] [address] Ct Imaging [place] [address] Referral ID Status Reason Start Date Expiration Date Visits Requested Visits Authorized [id number] New Request Auto-Generat ed Referral 4 11/28/2025 1 1 Specialty Diagnoses / Procedures Referred By Contac t Referred To Contact CT IMAGING Diagnoses Lung nodules Pre-op testing Procedures CT CHEST WO IVCON DIAGNOSTIC COMPUTED TOMOGRAPHY THORAX W/O Boris Michelle MD, PhD [address] [place] [address] Ct Imaging [place] [address] Referral ID Status Reason Start Date Expiration Date Visits Requested Visits Authorized [id number] New Request Auto-Generat ed Referral 12/10/2024 01/09/2026 1 1 Specialty Diagnoses / Procedures Referred By Contac t Referred [facility] Diagnoses Lung nodules Pre-op testing Procedures ECG COMPLETE ECG ROUTINE ECG W/LEAST 12 LDS W/I&R Boris Edge MD, PhD [address] [place] [address] [facility] [place] [address] [place] [address] Referral ID Status Reason Start Date Expiration Date Visits Requested Visits Authorized [id number] New Request Auto-Generat ed Referral 12/10/2024 12/10/2025 1 1 Additional Source Comments Reason for [...] IVCON CT ANGIOGRAPHY CHEST W/CONTRAST/NONCONTRAST Colton Walter, MARKETING ACCOUNT MANAGER.ELDERLY CAREGIVER [address] [place] [address] Ct Imaging Referral ID Status Reason Start Date Expiration Date V isits Requested Visits Authorized [id number] Closed Auto-Generate d Referral 10/17/2022 01/15/2023 1 1 Reason Comments Follow Up Reason Comments Radiology CT Specialty Diagnoses / Procedures Referred By Contac t Referred To Contact CT IMAGING Diagnoses Dissection of ascending aorta (HCC) S/P ascending aortic aneurysm repair Lung nodule Disorder of artery or arteriole (HCC) Encounter for other preprocedural examination Procedures CTA CHEST (GATED) W IVCON CT ANGIOGRAPHY CHEST W/CONTRAST/NONCONTRAST Lynne Griffith, MARKETING ACCOUNT MANAGER.FLAT LOCK OPERATOR [address] [place] [address] Ct Imaging [place] [address] Referral ID Status Reason Start Date Expiration Date V isits Requested Visits Authorized [id number] Closed Auto-Generate d Referral 11/08/2023 12/07/2024 1 1 Reason Comments Established Patient Reason Comments Appointment Appointment Reason Comments Request Outside Medical Records Reason Onset Date Comments Bronchoscopy Scheduling 12/10/2024 Initial Bronch Request Reason Comments Appointment PreOp Bronch Reason Comments Received Outside Medical Records Reason Comments EBUS Referral Reason Comments New Reason Comments Nm Pet Request Reason Comments PFT Results Request Outside PFT Results Reason Comments Outside PFT Results Reason Comments Informed Consent IRB [id number] Reason Comments Results Reason Comments Office Notes Faxed Reason Comments Appointment Appointment Reason Comments Research Update Reason Comments Consult Reason Comments Patient Question Reason Comments Patient Education DSE Instructions - t est scheduled 02/25/25 Reason Comments Procedure DSE Specialty Diagnoses / Procedures Referred By Contsuraj t Referred To Contact [facility] Diagnoses Dissection of thoracic aorta, unspecified part (HCC) 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al angiopathy without gangrene, without long-term current use of insulin (HCC) Personal history of malignant neoplasm of bronchus and lung Lung nodule Procedures STRESS ECHO DOBUTAMINE ECHO TTHRC R-T 2D W/WO M-MODE COMPLETE REST&ST Elliot Lyman MD, PhD [address] [place] [address] Phone: tel: fax: [facility] [place] [address] [place] [address] Referral ID Status Reason Start Date Expiration Date V isits Requested Visits Authorized [id number] Closed Auto-Generat ed Referral Patient Cleared - Admin/Chairm an/Director advise to proceed or did not respond 02/25/2025 03/26/2025 1 1 Reason Comments Spirometry Specialty Diagnoses / Procedures Referred By Arjun lowery Referred To Contact [facility] Diagnoses Dissection of thoracic aorta, unspecified part (HCC) 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al angiopathy without gangrene, without long-term current use of insulin (HCC) Personal history of malignant neoplasm of bronchus and lung Lung nodule Procedures SIX MINUTE WALK CARDIOPULMONARY EXERCISE STRESS Elliot Lyman MD, PhD [address] [place] [address] Phone: tel: fax: [facility] [place] [address] [place] [address] Referral ID Status Reason Start Date Expiration Date V isits Requested Visits Authorized [id number] Closed Auto-Generate d Referral 03/05/2025 03/21/2026 1 1 Reason Comments Established Patient Reason Comments Consult Specialty Diagnoses / Procedures Referred By Contac t Referred To Contact Radiation Oncology Diagnoses Multinodular thyroid Personal history of malignant neoplasm of bronchus and lung Lung nodule Procedures RAD/ONC CONSULT OFFICE/OUTPATIENT NEW HIGH MDM 60 MINUTES Elliot Lyman MD, PhD [address] [place] [address] Phone: tel: fax: Referral ID Status Reason Start Date Expiration Date V isits Requested Visits Authorized [id number] Closed PCP Requested Referral 03/13/2025 03/06/2026 1 1 Reason Comments Patient Education Reason Onset Date Comments Simulation Request Form 03/15/2025 Reason Comments Research F/U IRB# [id number] Comparin g the Effectiveness of Surgery versus Stereotactic Body Radiation Therapy for Stage I Non-Small Cell Lung Cancer PI: Dr. Vishnu Lyman Reason Comments Radiotherapy On-treatment Visit Reason Comments Research Reason Comments Research F/U IRB# [id number] Comparin g the Effectiveness of Surgery versus Stereotactic Body Radiation Therapy for Stage I Non-Small Cell Lung Cancer PI: Dr. Elliot Lyman Specialty Diagnoses / Procedures Referred By Contac t Referred To Contact CT IMAGING Diagnoses Malignant neoplasm of unspecified part of unspecified bronchus or lung (HCC) Procedures CT CHEST WO IVCON DIAGNOSTIC COMPUTED TOMOGRAPHY THORAX W/O CNTRST Kaylene Feliz MD [address] [place] [address] Phone: tel: fax: [place] [address] Referral ID Status Reason Start Date Expiration Date V isits Requested Visits Authorized [id number] Closed Auto-Generate d Referral 07/12/2025 04/29/2026 1 1 Reason Comments Lung Cancer (unrecognized sect ion and content) No Status Records FoundNo Status Records FoundNo Status Records FoundNo Status Records FoundNo Status Records FoundNo Status Records Found INFORMATION SOURCE (unrecogn ized section and content) DATE CREATED AUTHOR 04/22/2020 [facility] DATE CREATED AUTHOR AUTHOR'S ORGANIZ ATION 11/18/2020 [facility] DATE CREATED AUTHOR AUTHOR'S ORGANIZ ATION 11/08/2023 [facility] DATE CREATED AUTHOR AUTHOR'S ORGANIZ ATION 02/02/2025 [facility] DATE CREATED AUTHOR AUTHOR'S ORGANIZ ATION 08/03/2025 [facility] DATE CREATED AUTHOR AUTHOR'S ORGANIZ ATION 09/15/2025 [facility] Goals (unrecognized section and content) Goals may be documented in a n alternate sectionGoals may be documented in an alternate sectionGoals may be documented in an alternate sectionGoals may be documented in an alternate sectionGoals may be documented in an alternate sectionGoals may be documented in an alternate sectionGoals may be documented in an alternate sectionGoals may be documented in an alternate sectionGoals may be documented in an alternate sectionGoals may be documented in an alternate sectionGoals may be documented in an alternate sectionGoals may be documented in an alternate sectionGoals may be documented in an alternate sectionGoals may be documented in an alternate sectionGoals may be documented in an alternate sectionGoals may be documented in an alternate sectionGoals may be documented in an alternate sectionGoals may be documented in an alternate sectionGoals may be documented in an alternate sectionGoals may be documented in an alternate sectionGoals may be documented in an alternate sectionGoals may be documented in an alternate sectionGoals may be documented in an alternate sectionGoals may be documented in an alternate section Source Comments (unrecognize d section and content) In the event this informatio n is protected by the Federal Confidentiality of Alcohol and Drug Abuse Patient Records regulations: The Federal rules restrict any use of the information to criminally investigate or prosecute any alcohol or drug abuse patient.[facility] the event this information is protected by the Federal Confidentiality of Alcohol and Drug Abuse Patient Records regulations: The Federal rules restrict any use of the information to criminally investigate or prosecute any alcohol or drug abuse patient.[facility] the event this information is protected by the Federal Confidentiality of Alcohol and Drug Abuse Patient Records regulations: The Federal rules restrict any use of the information to criminally investigate or prosecute any alcohol or drug abuse patient.[facility] the event this information is protected by the Federal Confidentiality of Alcohol and Drug Abuse Patient Records regulations: The Federal rules restrict any use of the information to criminally investigate or prosecute any alcohol or drug abuse patient.[facility]ronIn the event this information is protected by the Federal Confidentiality of Alcohol and Drug Abuse Patient Records regulations: The Federal rules restrict any use of the information to criminally investigate or prosecute any alcohol or drug abuse patient.[facility]ronIn the event this information is protected by the Federal Confidentiality of Alcohol and Drug Abuse Patient Records regulations: The Federal rules restrict any use of the information to criminally investigate or prosecute any alcohol or drug abuse patient.[facility]ronIn the event this information is protected by the Federal Confidentiality of Alcohol and Drug Abuse Patient Records regulations: The Federal rules restrict any use of the information to criminally investigate or prosecute any alcohol or drug abuse patient.[facility]ronIn the event this information is protected by the Federal Confidentiality of Alcohol and Drug Abuse Patient Records regulations: The Federal rules restrict any use of the information to criminally investigate or prosecute any alcohol or drug abuse patient.[facility]ronIn the event this information is protected by the Federal Confidentiality of Alcohol and Drug Abuse Patient Records regulations: The Federal rules restrict any use of the information to criminally investigate or prosecute any alcohol or drug abuse patient.[facility]ronIn the event this information is protected by the Federal Confidentiality of Alcohol and Drug Abuse Patient Records regulations: The Federal rules restrict any use of the information to criminally investigate or prosecute any alcohol or drug abuse patient.[facility]ronIn the event this information is protected by the Federal Confidentiality of Alcohol and Drug Abuse Patient Records regulations: The Federal rules restrict any use of the information to criminally investigate or prosecute any alcohol or drug abuse patient.[facility]ronIn the event this information is protected by the Federal Confidentiality of Alcohol and Drug Abuse Patient Records regulations: The Federal rules restrict any use of the information to criminally investigate or prosecute any alcohol or drug abuse patient.[facility]ronIn the event this information is protected by the Federal Confidentiality of Alcohol and Drug Abuse Patient Records regulations: The Federal rules restrict any use of the information to criminally investigate or prosecute any alcohol or drug abuse patient.[facility]ronIn the event this information is protected by the Federal Confidentiality of Alcohol and Drug Abuse Patient Records regulations: The Federal rules restrict any use of the information to criminally investigate or prosecute any alcohol or drug abuse patient.[facility]ronIn the event this information is protected by the Federal Confidentiality of Alcohol and Drug Abuse Patient Records regulations: The Federal rules restrict any use of the information to criminally investigate or prosecute any alcohol or drug abuse patient.[facility]ronIn the event this information is protected by the Federal Confidentiality of Alcohol and Drug Abuse Patient Records regulations: The Federal rules restrict any use of the information to criminally investigate or prosecute any alcohol or drug abuse patient.[facility]ronIn the event this information is protected by the Federal Confidentiality of Alcohol and Drug Abuse Patient Records regulations: The Federal rules restrict any use of the information to criminally investigate or prosecute any alcohol or drug abuse patient.[facility]ronIn the event this information is protected by the Federal Confidentiality of Alcohol and Drug Abuse Patient Records regulations: The Federal rules restrict any use of the information to criminally investigate or prosecute any alcohol or drug abuse patient.[facility]ronIn the event this information is protected by the Federal Confidentiality of Alcohol and Drug Abuse Patient Records regulations: The Federal rules restrict any use of the information to criminally investigate or prosecute any alcohol or drug abuse patient.[facility]ronIn the event this information is protected by the Federal Confidentiality of Alcohol and Drug Abuse Patient Records regulations: The Federal rules restrict any use of the information to criminally investigate or prosecute any alcohol or drug abuse patient.[facility]ronIn the event this information is protected by the Federal Confidentiality of Alcohol and Drug Abuse Patient Records regulations: The Federal rules restrict any use of the information to criminally investigate or prosecute any alcohol or drug abuse patient.[facility]ronIn the event this information is protected by the Federal Confidentiality of Alcohol and Drug Abuse Patient Records regulations: The Federal rules restrict any use of the information to criminally investigate or prosecute any alcohol or drug abuse patient.[facility]ronIn the event this information is protected by the Federal Confidentiality of Alcohol and Drug Abuse Patient Records regulations: The Federal rules restrict any use of the information to criminally investigate or prosecute any alcohol or drug abuse patient.[facility]ronIn the event this information is protected by the Federal Confidentiality of Alcohol and Drug Abuse Patient Records regulations: The Federal rules restrict any use of the information to criminally investigate or prosecute any alcohol or drug abuse patient.[facility]ronIn the event this information is protected by the Federal Confidentiality of Alcohol and Drug Abuse Patient Records regulations: The Federal rules restrict any use of the information to criminally investigate or prosecute any alcohol or drug abuse patient.[facility]ronIn the event this information is protected by the Federal Confidentiality of Alcohol and Drug Abuse Patient Records regulations: The Federal rules restrict any use of the information to criminally investigate or prosecute any alcohol or drug abuse patient.[facility]ronIn the event this information is protected by the Federal Confidentiality of Alcohol and Drug Abuse Patient Records regulations: The Federal rules restrict any use of the information to criminally investigate or prosecute any alcohol or drug abuse patient.[facility]ronIn the event this information is protected by the Federal Confidentiality of Alcohol and Drug Abuse Patient Records regulations: The Federal rules restrict any use of the information to criminally investigate or prosecute any alcohol or drug abuse patient.[facility]ronIn the event this information is protected by the Federal Confidentiality of Alcohol and Drug Abuse Patient Records regulations: The Federal rules restrict any use of the information to criminally investigate or prosecute any alcohol or drug abuse patient.[facility]ronIn the event this information is protected by the Federal Confidentiality of Alcohol and Drug Abuse Patient Records regulations: The Federal rules restrict any use of the information to criminally investigate or prosecute any alcohol or drug abuse patient.[facility]ronIn the event this information is protected by the Federal Confidentiality of Alcohol and Drug Abuse Patient Records regulations: The Federal rules restrict any use of the information to criminally investigate or prosecute any alcohol or drug abuse patient.[facility]ronIn the event this information is protected by the Federal Confidentiality of Alcohol and Drug Abuse Patient Records regulations: The Federal rules restrict any use of the information to criminally investigate or prosecute any alcohol or drug abuse patient.[facility]ronIn the event this information is protected by the Federal Confidentiality of Alcohol and Drug Abuse Patient Records regulations: The Federal rules restrict any use of the information to criminally investigate or prosecute any alcohol or drug abuse patient.[facility]ronIn the event this information is protected by the Federal Confidentiality of Alcohol and Drug Abuse Patient Records regulations: The Federal rules restrict any use of the information to criminally investigate or prosecute any alcohol or drug abuse patient.[facility]ronIn the event this information is protected by the Federal Confidentiality of Alcohol and Drug Abuse Patient Records regulations: The Federal rules restrict any use of the information to criminally investigate or prosecute any alcohol or drug abuse patient.[facility]ronIn the event this information is protected by the Federal Confidentiality of Alcohol and Drug Abuse Patient Records regulations: The Federal rules restrict any use of the information to criminally investigate or prosecute any alcohol or drug abuse patient.[facility] the event this information is protected by the Federal Confidentiality of Alcohol and Drug Abuse Patient Records regulations: The Federal rules restrict any use of the information to criminally investigate or prosecute any alcohol or drug abuse patient.[facility] the event this information is protected by the Federal Confidentiality of Alcohol and Drug Abuse Patient Records regulations: The Federal rules restrict any use of the information to criminally investigate or prosecute any alcohol or drug abuse patient.[facility] [place] the event this information is protected by the Federal Confidentiality of Alcohol and Drug Abuse Patient Records regulations: The Federal rules restrict any use of the information to criminally investigate or prosecute any alcohol or drug abuse patient.[facility] [place] the event this information is protected by the Federal Confidentiality of Alcohol and Drug Abuse Patient Records regulations: The Federal rules restrict any use of the information to criminally investigate or prosecute any alcohol or drug abuse patient.[facility] [place] the event this information is protected by the Federal Confidentiality of Alcohol and Drug Abuse Patient Records regulations: The Federal rules restrict any use of the information to criminally investigate or prosecute any alcohol or drug abuse patient.[facility] [place] the event this information is protected by the Federal Confidentiality of Alcohol and Drug Abuse Patient Records regulations: The Federal rules restrict any use of the information to criminally investigate or prosecute any alcohol or drug abuse patient.[facility] [place] the event this information is protected by the Federal Confidentiality of Alcohol and Drug Abuse Patient Records regulations: The Federal rules restrict any use of the information to criminally investigate or prosecute any alcohol or drug abuse patient.[facility] [place] the event this information is protected by the Federal Confidentiality of Alcohol and Drug Abuse Patient Records regulations: The Federal rules restrict any use of the information to criminally investigate or prosecute any alcohol or drug abuse patient.[facility] the event this information is protected by the Federal Confidentiality of Alcohol and Drug Abuse Patient Records regulations: The Federal rules restrict any use of the information to criminally investigate or prosecute any alcohol or drug abuse patient.[facility] [place] the event this information is protected by the Federal Confidentiality of Alcohol and Drug Abuse Patient Records regulations: The Federal rules restrict any use of the information to criminally investigate or prosecute any alcohol or drug abuse patient.[facility] [place] the event this information is protected by the Federal Confidentiality of Alcohol and Drug Abuse Patient Records regulations: The Federal rules restrict any use of the information to criminally investigate or prosecute any alcohol or drug abuse patient.[facility] [place] the event this information is protected by the Federal Confidentiality of Alcohol and Drug Abuse Patient Records regulations: The Federal rules restrict any use of the information to criminally investigate or prosecute any alcohol or drug abuse patient.[facility] [place] the event this information is protected by the Federal Confidentiality of Alcohol and Drug Abuse Patient Records regulations: The Federal rules restrict any use of the information to criminally investigate or prosecute any alcohol or drug abuse patient.[facility] [place] the event this information is protected by the Federal Confidentiality of Alcohol and Drug Abuse Patient Records regulations: The Federal rules restrict any use of the information to criminally investigate or prosecute any alcohol or drug abuse patient.[facility] [place] the event this information is protected by the Federal Confidentiality of Alcohol and Drug Abuse Patient Records regulations: The Federal rules restrict any use of the information to criminally investigate or prosecute any alcohol or drug abuse patient.[facility] [place] the event this information is protected by the Federal Confidentiality of Alcohol and Drug Abuse Patient Records regulations: The Federal rules restrict any use of the information to criminally investigate or prosecute any alcohol or drug abuse patient.[facility] [place]ronIn the event this information is protected by the Federal Confidentiality of Alcohol and Drug Abuse Patient Records regulations: The Federal rules restrict any use of the information to criminally investigate or prosecute any alcohol or drug abuse patient.[facility] [place] Care Teams (unrecognized sec tion and content) 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 Start Date End Date Tania West MD [address] [facility] [address] [place], [place] [address] PCP - General Family Medicine 02/03/20 Tania Wells [address] [facility] [address] [place] [address] Cardiology 01/06/20 Michelle Lopez, MARKETING ACCOUNT MANAGER.ELDERLY CAREGIVER [address] [place] [address] Referring Cardiac Surg 03/14/20 Miah Hinson MD [address] [place] [address] Home Care Provider Cardiothoracic Surgery 03/14/20 Tiara Cho RN [address] [place] [address] Senior Engineer Post Acute Care 03/14/20 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 Start Date End Date Tania West MD [address] [facility] [address] [place] [address] PCP - General Family Medicine 02/03/20 Tania Wells [address] [facility] [address] [place] [address] Cardiology 01/06/20 Michelle Lopez, MARKETING ACCOUNT MANAGER.ELDERLY CAREGIVER [address] [facility] [place] [address] Referring Cardiac Surg 03/14/20 Miah Hinson MD [address] [place] [address] [place] [address] Home Care Provider Cardiothoracic Surgery 03/14/20 Tiara Cho RN [address] [place] [address] Senior Engineer Post Acute Care 03/14/20 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 Start Date End Date Tania West MD [address] [facility] [address] [place] [address] PCP - General Family Medicine 02/03/20 Tania Wells [address] [facility] [address] [place] [address] Cardiology 01/06/20 Michelle Lopez, MARKETING ACCOUNT MANAGER.ELDERLY CAREGIVER [address] [facility] [address] [place] [address] Referring Cardiac Surg 03/14/20 Miah Hinson MD [address] [place] [address] [place] [address] Home Care Provider Cardiothoracic Surgery 03/14/20 Tiara Cho RN [address] [place] [address] Senior Engineer Post Acute Care 03/14/20 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 Start Date End Date Tania West MD [address] [facility] [address] [place] [address] PCP - General Family Medicine 02/03/20 Tania Wells [address] [facility] [address] [place] [address] Cardiology 01/06/20 Michelle Lopez, MARKETING ACCOUNT MANAGER.ELDERLY CAREGIVER [address] [facility] [place] [address] Referring Cardiac Surg 03/14/20 Miah Hinson MD [address] [place] [address] [place] [address] Home Care Provider Cardiothoracic Surgery 03/14/20 Tiara Cho RN [address] [place] [address] Senior Engineer Post Acute Care 03/14/20 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 Start Date End Date Tania West MD [address] [facility] [address] [place] [address] PCP - General Family Medicine 02/03/20 Tania Wells [address] [facility] [address] [place] [address] Cardiology 01/06/20 Michelle Lopez, MARKETING ACCOUNT MANAGER.ELDERLY CAREGIVER [address] [facility] [place] [address] Referring Cardiac Surg 03/14/20 Miah Hinson MD [address] [place] [address] [place] [address] Home Care Provider Cardiothoracic Surgery 03/14/20 Tiara Cho RN [address] [place] [address] Senior Engineer Post Acute Care 03/14/20 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 Start Date End Date Tania West MD [address] [place], [place] [address] PCP - General Family Medicine 02/03/20 Tania Wells [address] [place] [address] Cardiology 01/06/20 Michelle Lopez, MARKETING ACCOUNT MANAGER.ELDERLY CAREGIVER [address] [facility] [address] [place] [address] Referring Cardiac Surg 03/14/20 Miah Hinson MD [address] [place] [address] [place] [address] Home Care Provider Cardiothoracic Surgery 03/14/20 Tiara Cho RN [address] [place] [address] Senior Engineer Post Acute Care 03/14/20 Team Status: Active Member Role Status Dates Dr. Tania West MD Family Provider Active Dr. Tania West MD Primary Care Provider Active Team Status: Inactive Member Role Status Dates Dr. Tania West MD Primary Care Provider, Referring Provider Active Saranya Hawkins PA, PA Attending Provider Active Team Status: Active Member Role Status Dates Dr. Tania West MD Primary Care Provider Active Saranya Donwey Attending Provider Active Team Status: Active Member Role Status Dates Dr. Tania West MD Primary Care Provider Active Dr. Tania Wells MD Attending Provider Active Team Status: Inactive Member Role Status Dates Dr. Tania West MD Primary Care Provider Active Dr. Tania Wells MD Attending Provider Active Team Status: Inactive Member Role Status Dates Dr. Tania West MD Primary Care Provider Active Saranya Hawkins PA, PA Attending Provider Active Team Status: Inactive Member Role Status Dates Dr. Tania West MD Primary Care Provider, Attending Provider Active Team Status: Inactive Member Role Status Dates Dr. Tania West MD Primary Care Provider, Referring Provider Active Nayeli Hidalgo SYSTEMS ANALYSIS MANAGER, SYSTEMS ANALYSIS MANAGER-C Attending Provider Active Team Status: Inactive Member Role Status Dates Dr. Tania West MD Primary Care Provider Active Dr. Walker Faust MD Attending Provider, Emergency Provi joshua Active Team Status: Inactive Member Role Status Dates Dr. Tania West MD Primary Care Provider Active Nayeli Hidalgo SYSTEMS ANALYSIS MANAGER, SYSTEMS ANALYSIS MANAGER-C Attending Provider, Referring P dona Active 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 Start Date End Date Tania West MD [address] [facility] [address] [place], [place] [address] PCP - General Family Medicine 02/03/20 Tania Wells [address] [place] [address] Cardiology 01/06/20 Michelle Lopez APRN.ELDERLY CAREGIVER [address] [facility] [address] [place], [place] [id number] Referring Cardiac Surg 03/14/20 Miah Hinson MD [address] [place] [address] [place] [address] Home Care Provider Cardiothoracic Surgery 03/14/20 Tiara Cho, RN [address] [place], [place] [id number] Senior Engineer Post Acute Care 03/14/20 Team Status: Inactive Member Role Status Dates Dr. Tania West MD Primary Care Provider Active Dr. Martha Kim MD Attending Provider, Referring Provider Active Team Status: Inactive Member Role Status Dates Dr. Tania West MD Primary Care Provider Active Dr. Beth Briones MD Emergency Provider Active Team Status: Inactive Member Role Status Dates Dr. Tania West MD Primary Care Provider Active Dr. Beth Briones MD Attending Provider, Emergency Provider Active Team Status: Inactive Member Role Status Dates Dr. Tania West MD Primary Care Provi joshua, Attending Provider, Referring Provider Active Team Status: Active Member Role Status Dates Dr. Tania West MD Primary Care Provider Active Nayeli Hidalgo SYSTEMS ANALYSIS MANAGER, SYSTEMS ANALYSIS MANAGER-C Attending Provider, Referring Gigi carcamo Active Team Status: Active Member Role Status Dates Dr. Tania West MD Primary Care Provider Active Dr. David Huynh MD Attending Provider Active Team Status: Active Member Role Status Dates Dr. Tania West MD Primary Care Provider Active Saranya Hawkins PA, PA Attending Provider, Referr ing Provider Active Team Status: Active Member Role Status Dates Dr. Tania West MD Primary Care Provider Active Dr. Martha Kim MD Attending Provider, Referring Provider Active 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 Start Date End Date Tania West MD [address] [facility] [address] [place], [place] [address] PCP - General Family Medicine 02/03/20 Tania Wells MD [address] [place] [address] Cardiology 01/06/20 Michelle Lopez APRN.ELDERLY CAREGIVER [address] [facility] [address] [place] [address] Referring Cardiac Surg 03/14/20 Miah Hinson MD [address] [place] [address] [place] [address] Home Care Provider Cardiothoracic Surgery 03/14/20 Tiara Cho RN [address] [place] [address] Senior Engineer Post Acute Care 03/14/20 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 Start Date End Date Tania West MD [address] [facility] [address] [place], [place] [address] PCP - General Family Medicine 02/03/20 Tania Wells MD [address] [place] [address] Cardiology 01/06/20 Michelle Lopez, MARKETING ACCOUNT MANAGER.ELDERLY CAREGIVER [address] [facility] [address] [place] [address] Referring Cardiac Surg 03/14/20 Miah Hinson MD [address] [place] [address] [place] [address] Home Care Provider Cardiothoracic Surgery 03/14/20 Tiara Cho RN [address] [place], [place] [id number] Senior Engineer Post Acute Care 03/14/20 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 Start Date End Date Tania West MD [address] [facility] [address] [place] [address] PCP - General Family Medicine 02/03/20 Tania Wells MD [address] [place] [address] Cardiology 01/06/20 Michelle Lopez, MARKETING ACCOUNT MANAGER.ELDERLY CAREGIVER [address] [facility] [address] [place] [address] Referring Cardiac Surg 03/14/20 Miah Hinson MD [address] [place] [address] [place] [address] Home Care Provider Cardiothoracic Surgery 03/14/20 Tiara Cho RN [address] [place], [place] [id number] Senior Engineer Post Acute Care 03/14/20 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 Start Date End Date Tania West MD [address] [facility] [address] [place] [address] PCP - General Family Medicine 02/03/20 Tania Wells MD [address] [place] [address] Cardiology 01/06/20 Michelle Lopez, KARMEN.ELDERLY CAREGIVER [address] [facility] [address] [place] [address] Referring Cardiac Surg 03/14/20 Miah Hinson MD [address] [place] [address] [place] [address] Home Care Provider Cardiothoracic Surgery 03/14/20 Tiara Cho RN [address] [place], [place] [id number] Senior Engineer Post Acute Care 03/14/20 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 Start Date End Date Tania West MD [address] [place] [address] PCP - General Family Medicine 02/03/20 Tania Wells MD [address] [place] [address] Cardiology 01/06/20 Michelle Lopez APRN.ELDERLY CAREGIVER [address] [facility] [address] [place] [address] Referring Cardiac Surg 03/14/20 Miah Hinson MD [address] [place] [address] [place] [address] Home Care Provider Cardiothoracic Surgery 03/14/20 Tiara Cho RN [address] [place] [address] Senior Engineer Post Acute Care 03/14/20 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 Start Date End Date Tania West MD [address] [facility] [address] [place] [address] PCP - General Family Medicine 02/03/20 Tania Wells MD [address] [place] [address] Cardiology 01/06/20 Michelle Lopez, MARKETING ACCOUNT MANAGER.ELDERLY CAREGIVER [address] [facility] [address] [place] [address] Referring Cardiac Surg 03/14/20 Miah Hinson MD [address] [place] [address] [place] [address] Home Care Provider Cardiothoracic Surgery 03/14/20 Tiara Cho RN [address] [place], [place] [id number] Senior Engineer Post Acute Care 03/14/20 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 Start Date End Date Tania West MD [address] [place] [address] [address] [place] [address] PCP - General Family Medicine 02/03/20 Tania Wells MD [address] [place] [address] Cardiology 01/06/20 Michelle Lopez, MARKETING ACCOUNT MANAGER.ELDERLY CAREGIVER [address] [facility] [address] [place] [address] Referring Cardiac Surg 03/14/20 Miah Hinson MD [address] [place] [address] [place] [address] Home Care Provider Cardiothoracic Surgery 03/14/20 Tiara Cho RN [address] [place], [place] 8329631 Senior Engineer Post Acute Care 03/14/20 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 Start Date End Date Tania West MD [address] [facility] [address] [place] [address] PCP - General Family Medicine 02/03/20 Tania Wells MD [address] [place] [address] Cardiology 01/06/20 Michelle Lopez, KARMEN.ELDERLY CAREGIVER [address] [facility] [address] [place] [address] Referring Cardiac Surg 03/14/20 Miah Hinson MD [address] [place] [address] [place] [address] Home Care Provider Cardiothoracic Surgery 03/14/20 Tiara Cho RN [address] [facility], [place] 1576031 Senior Engineer Post Acute Care 03/14/20 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 Start Date End Date Tania West MD [address] [facility] [address] [place] [address] PCP - General Family Medicine 02/03/20 Tania Wells MD [address] [place] [address] Cardiology 01/06/20 Michelle Lopez APRN.ELDERLY CAREGIVER [address] [facility] [address] [place] [address] Referring Cardiac Surg 03/14/20 Miah Hinson MD [address] [place] [address] [place] [address] Home Care Provider Cardiothoracic Surgery 03/14/20 Tiara Cho RN [address] [facility] [place] [address] Senior Engineer Post Acute Care 03/14/20 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 Start Date End Date Tania West MD [address] [facility] [address] [place] [address] PCP - General Family Medicine 02/03/20 Tania Wells MD [address] [place] [address] Cardiology 01/06/20 Michelle Lopez APRN.CNP [address] [place] [address] Referring Cardiac Surg 03/14/20 Miah Hinson MD [address] [place] [address] [place] [address] Home Care Provider Cardiothoracic Surgery 03/14/20 Tiara Cho RN [address] [facility], [place] 1159631 Senior Engineer Post Acute Care 03/14/20 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 Start Date End Date Tania West MD [address] [facility] [address] [place] [address] PCP - General Family Medicine 02/03/20 Tania Wells MD [address] [place] [address] Cardiology 01/06/20 Michelle Lopez, MARKETING ACCOUNT MANAGER.ELDERLY CAREGIVER [address] [place] [address] Referring Cardiac Surg 03/14/20 Miah Hinson MD [address] [place] [address] [place] [address] Home Care Provider Cardiothoracic Surgery 03/14/20 Tiara Cho RN [address] [place], [place] [id number] Senior Engineer Post Acute Care 03/14/20 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 Start Date End Date Tania West MD [address] [facility] [address] [place] [address] PCP - General Family Medicine 02/03/20 Tania Wells MD [address] [place] [address] Cardiology 01/06/20 Michelle Lopez, MARKETING ACCOUNT MANAGER.ELDERLY CAREGIVER [address] [place] [address] Referring Cardiac Surg 03/14/20 Miah Hinson MD [address] [place] [address] [place] [address] Home Care Provider Cardiothoracic Surgery 03/14/20 Tiara Cho RN [address] [place], [place] [address] Senior Engineer Post Acute Care 03/14/20 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 Start Date End Date Tania West MD [address] [facility] [address] [place] [address] PCP - General Family Medicine 02/03/20 Tania Wells MD [address] [place] [address] Cardiology 01/06/20 Michelle Lopez, MARKETING ACCOUNT MANAGER.ELDERLY CAREGIVER [address] [place] [address] Referring Cardiac Surg 03/14/20 Miah Hinson MD [address] [place] [address] [place] [address] Home Care Provider Cardiothoracic Surgery 03/14/20 Tiara Cho RN [address] [place], [place] [phone] Senior Engineer Post Acute Care 03/14/20 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 Start Date End Date Tania West MD [address] [place] [address] [address] [place] [address] PCP - General Family Medicine 02/03/20 Tania Wells MD [address] [place] [address] Cardiology 01/06/20 Michelle Lopez, MARKETING ACCOUNT MANAGER.ELDERLY CAREGIVER [address] [place] [address] Referring Cardiac Surg 03/14/20 Miah Hinson MD [address] [place] [address] [place] [address] Home Care Provider Cardiothoracic Surgery 03/14/20 Tiara Cho RN [address] [place] [address] Senior Engineer Post Acute Care 03/14/20 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 Start Date End Date Tania West MD [address] [facility] [address] [place] [address] PCP - General Family Medicine 02/03/20 Tania Wells MD [address] [place] [address] Cardiology 01/06/20 Michelle Lopez, MARKETING ACCOUNT MANAGER.ELDERLY CAREGIVER [address] [place] [address] Referring Cardiac Surg 03/14/20 Miah Hinson MD [address] [place] [address] [place] [address] Home Care Provider Cardiothoracic Surgery 03/14/20 Tiara Cho RN [address] [place], [place] [id number] Senior Engineer Post Acute Care 03/14/20 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 Start Date End Date Tania West MD [address] [facility] [address] [place] [address] PCP - General Family Medicine 02/03/20 Tania Wells MD [address] [place] [address] Cardiology 01/06/20 Michelle Lopez, MARKETING ACCOUNT MANAGER.ELDERLY CAREGIVER [address] [place] [address] Referring Cardiac Surg 03/14/20 Miah Hinson MD [address] [place] [address] [place] [address] Home Care Provider Cardiothoracic Surgery 03/14/20 Tiara Cho RN [address] [place], [place] [id number] Senior Engineer Post Acute Care 03/14/20 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 Start Date End Date Tania West MD [address] [place] [address] PCP - General Family Medicine 02/03/20 Tania Wells MD [address] [place] [address] Cardiology 01/06/20 Michelle Lpoez APRN.ELDERLY CAREGIVER [address] [place] [address] Referring Cardiac Surg 03/14/20 Miah Hinson MD [address] [place] [address] [place] [address] Home Care Provider Cardiothoracic Surgery 03/14/20 Tiara Cho RN [address] [place] [address] Senior Engineer Post Acute Care 03/14/20 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 Tania West MD Primary Care Provider Active Start: October 30, 2024 End: October 30, 2024 Dr. Martha Kim MD Attending Provider Active Start: October 30, 2024 End: October 30, 2024 Dr. Martha Kim MD Referring Provider Active Start: October 30, 2024 End: October 30, 2024 Team Status: Inactive Member Role Status Dates Dr. Tania West MD Primary Care Provider Active Start: November 17, 2024 End: November 17, 2024 DAMIEN Bird Attending Provider Active Star t: November 17, 2024 End: November 17, 2024 DAMIEN Bird Referring Provider Active Star t: November 17, 2024 End: November 17, 2024 Team Status: Active Member Role Status Dates Dr. Tania West MD Primary Care Provider Active Start: November 17, 2024 Dr. David Huynh MD Attending Provider Active S tart: November 17, 2024 DAMIEN Bird Referring Provider Active Star t: November 17, 2024 Team Status: Inactive Member Role Status Dates Dr. Tania West MD Primary Care Provider Active Start: November 24, 2024 End: November 24, 2024 Dr. Tania West MD Referring Provider Active Start: November 24, 2024 End: November 24, 2024 DAMIEN Bird Attending Provider Active Star t: November 24, 2024 End: November 24, 2024 Team Status: Inactive Member Role Status Dates Dr. Tania West MD Primary Care Provider Active Start: December 02, 2024 End: December 02, 2024 DAMIEN Bird Attending Provider Active Star t: December 02, 2024 End: December 02, 2024 DAMIEN Bird Referring Provider Active Star t: December 02, 2024 End: December 02, 2024 Team Status: Inactive Member Role Status Dates Dr. Tania West MD Primary Care Provider Active Start: January 19, 2025 End: January 19, 2025 Dr. Tania West MD Referring Provider Active Start: January 19, 2025 End: January 19, 2025 Dr. Zhang Jose MD Attending Provider Active Start: January 19, 2025 End: January 19, 2025 Team Status: Inactive Member Role Status Dates Dr. Tania West MD Primary Care Provider Active Start: January 19, 2025 End: January 19, 2025 Dr. Zhang Jose MD Attending Provider Active Start: January 19, 2025 End: January 19, 2025 Dr. Zhang Jose MD Referring Provider Active Start: January 19, 2025 End: January 19, 2025 Team Status: Active Member Role Status Dates Dr. Tania West MD Primary Care Provider Active Start: January 25, 2025 Dr. Martha Kim MD Attending Provider Active Start: January 25, 2025 Dr. Martha Kim MD Referring Provider Active Start: January 25, 2025 Team Status: Inactive Member Role Status Dates Dr. Tania West MD Primary Care Provider Active Start: January 25, 2025 End: January 25, 2025 Dr. Martha Kim MD Attending Provider Active Start: January 25, 2025 End: January 25, 2025 Dr. Martha Kim MD Referring Provider Active Start: January 25, 2025 End: January 25, 2025 Team Status: Inactive Member Role Status Dates Dr. Tania West MD Primary Care Provider Active Start: February 05, 2025 End: February 05, 2025 Dr. Tania West MD Attending Provider Active Start: February 05, 2025 End: February 05, 2025 Dr. Tania West MD Referring Provider Active Start: February 05, 2025 End: February 05, 2025 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 Start Date End Date Tania West MD [address] [place] [address] [address] [place] [address] PCP - General Family Medicine 02/03/20 Tania Wells MD [address] [place] [address] Cardiology 01/06/20 Michelle Lopez, KARMEN.ELDERLY CAREGIVER [address] [place] [address] Referring Cardiac Surg 03/14/20 Miah Hinson MD [address] [place] [address] [place] [address] Home Care Provider Cardiothoracic Surgery 03/14/20 Tiara Cho RN [address] [place] [address] Senior Engineer Post Acute Care 03/14/20 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 Start Date End Date Tania West MD [address] [place] [address] PCP - General Family Medicine 02/03/20 Tania Wells MD [address] [place] [address] Cardiology 01/06/20 Michelle Lopez, KARMEN.ELDERLY CAREGIVER [address] [place] [address] Referring Cardiac Surg 03/14/20 Miah Hinson MD [address] [place] [address] [place] [address] Home Care Provider Cardiothoracic Surgery 03/14/20 Tiara Cho RN [address] [place] [address] Senior Engineer Post Acute Care 03/14/20 Team Status: Active Member Role Status Dates Dr. Tania West MD Primary Care Provider Active Start: January 19, 2025 Dr. Miah Thompson MD Attending Provider Active Start: January 19, 2025 Dr. Miah Thompson MD Referring Provider Active Start: January 19, 2025 Team Status: Inactive Member Role Status Dates Dr. Tania West MD Primary Care Provider Active Start: February 24, 2025 End: February 24, 2025 Dr. Martha Kim MD Attending Provider Active Start: February 24, 2025 End: February 24, 2025 Dr. Martha Kim MD Referring Provider Active Start: February 24, 2025 End: February 24, 2025 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 Start Date End Date Tania West MD [address] [facility] [address] [place], [place] [address] PCP - General Family Medicine 02/03/20 Tania Wells MD [address] [place], [place] [id number] Cardiology 01/06/20 Michelle Lopez APRN.CNP [address] [facility] [address] Referring Cardiac Surg 03/14/20 Miah Hinson MD [address] [place] [address] [place] [address] Home Care Provider Cardiothoracic Surgery 03/14/20 Tiara Cho RN [address] [place] [address] Senior Engineer Post Acute Care 03/14/20 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 Start Date End Date Tania West MD [address] [facility] [address] [place], [place] [id number] PCP - General Family Medicine 02/03/20 Tania Wells MD [address] [place] [address] Cardiology 01/06/20 Michelle Lopez APRN.ELDERLY CAREGIVER [address] [place] [address] Referring Cardiac Surg 03/14/20 Miah Hinson MD [address] [place] [address] [place] [address] Home Care Provider Cardiothoracic Surgery 03/14/20 Tiara Cho RN [address] [place] [address] Senior Engineer Post Acute Care 03/14/20 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 Start Date End Date Tania West MD [address] [place] [address] PCP - General Family Medicine 02/03/20 Tania Wells MD [address] [place] [address] Cardiology 01/06/20 Michelle Lopez APRN.ELDERLY CAREGIVER [address] [place] [address] Referring Cardiac Surg 03/14/20 Miah Hinson MD [address] [place] [address] [place] [address] Home Care Provider Cardiothoracic Surgery 03/14/20 Tiara Cho RN [address] [place] [address] Senior Engineer Post Acute Care 03/14/20 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 Start Date End Date Tania West MD [address] [facility] [address] [place], [place] [address] PCP - General Family Medicine 02/03/20 Tania Wells MD [address] [place] [address] Cardiology 01/06/20 Michelle Lopez, MARKETING ACCOUNT MANAGER.ELDERLY CAREGIVER [address] [place] [address] Referring Cardiac Surg 03/14/20 Miah Hinson MD [address] [place] [address] [place] [address] Home Care Provider Cardiothoracic Surgery 03/14/20 Tiara Cho, RN [address] [place], [place] [id number] Senior Engineer Post Acute Care 03/14/20 Virginia Jha, ELIEZER Specialty Motor Room Controller Radiation Oncology 03/16/25 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 Start Date End Date Tania West MD [address] [facility] [address] [place] [address] PCP - General Family Medicine 02/03/20 Tania Wells MD [address] [place] [address] Cardiology 01/06/20 Michelle Lopez, MARKETING ACCOUNT MANAGER.ELDERLY CAREGIVER [address] [place] [address] Referring Cardiac Surg 03/14/20 Miah Hinson MD [address] [place] [address] [place] [address] Home Care Provider Cardiothoracic Surgery 03/14/20 Tiara Cho RN [address] [place], [place] [id number] Senior Engineer Post Acute Care 03/14/20 Virginia Jha, RN Specialty Motor Room Controller Radiation Oncology 03/16/25 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 Start Date End Date Tania West MD [address] [place] [address] PCP - General Family Medicine 02/03/20 Tania Wells MD [address] [place] [address] Cardiology 01/06/20 Michelle Lopez APRN.ELDERLY CAREGIVER [address] [place] [address] Referring Cardiac Surg 03/14/20 Miah Hinson MD [address] [place] [address] [place] [address] Home Care Provider Cardiothoracic Surgery 03/14/20 Tiara Cho RN [address] [place], [place] [id number] Senior Engineer Post Acute Care 03/14/20 Virginia Jha, ELIEZER Specialty Motor Room Controller Radiation Oncology 03/16/25 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 Start Date End Date Tania West MD [address] [place] [address] PCP - General Family Medicine 02/03/20 Tania Wells MD [address] [place] [address] Cardiology 01/06/20 Michelle Lopez APRN.ELDERLY CAREGIVER [address] [place] [address] Referring Cardiac Surg 03/14/20 Miah Hinson MD [address] [place] [address] [place] [address] Home Care Provider Cardiothoracic Surgery 03/14/20 Tiara Cho RN [address] [place] [address] Senior Engineer Post Acute Care 03/14/20 Virginia Jha, ELIZEER Specialty Motor Room Controller Radiation Oncology 03/16/25 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 Start Date End Date Tania West MD [address] [place] [address] PCP - General Family Medicine 02/03/20 Tania Wells MD [address] [place] [address] Cardiology 01/06/20 Michelle Lopez, KARMEN.ELDERLY CAREGIVER [address] [place] [address] Referring Cardiac Surg 03/14/20 Miah Hinson MD [address] [place] [address] [place] [address] Home Care Provider Cardiothoracic Surgery 03/14/20 Tiara Cho RN [address] [place] [address] Senior Engineer Post Acute Care 03/14/20 Virginia Jha, ELIEZER Specialty Motor Room Controller Radiation Oncology 03/16/25 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 Start Date End Date Tania West MD [address] [facility] [address] [place], [place] [address] PCP - General Family Medicine 02/03/20 Tania Wells MD [address] [place], [place] [address] Cardiology 01/06/20 Michelle Lopez APRN.ELDERLY CAREGIVER [address] [place], [place] [id number] Referring Cardiac Surg 03/14/20 Miah Hinson MD [address] [place] [address] [place] [address] Home Care Provider Cardiothoracic Surgery 03/14/20 Tiara Cho, RN [address] [place], [place] [id number] Senior Engineer Post Acute Care 03/14/20 Virginia Jha, ELIEZER Specialty Motor Room Controller Radiation Oncology 03/16/25 Team Status: Inactive Member Role Status Dates Dr. Tania West MD Primary Care Provider Active Start: April 22, 2025 End: April 22, 2025 Dr. Martha Kim MD Attending Provider Active Start: April 22, 2025 End: April 22, 2025 Dr. 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 Start Date End Date Tania West MD [address] [facility] [address] [place], [place] [address] PCP - General Family Medicine 02/03/20 Tania Wells MD [address] [place] [address] Cardiology 01/06/20 Michelle Lopez, MARKETING ACCOUNT MANAGER.ELDERLY CAREGIVER [address] [place] [address] Referring Cardiac Surg 03/14/20 Miah Hinson MD [address] [place] [address] [place] [address] Home Care Provider Cardiothoracic Surgery 03/14/20 Tiara Cho RN [address] [place] [address] Senior Engineer Post Acute Care 03/14/20 Virginia Jha, ELIEZER Specialty Motor Room Controller Radiation Oncology 03/16/25 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 Start Date End Date Tania West MD [address] [place] [address] [address] [place] [address] PCP - General Family Medicine 02/03/20 Tania Wells MD [address] [place] [address] Cardiology 01/06/20 Michelle Lopez, MARKETING ACCOUNT MANAGER.ELDERLY CAREGIVER [address] [place] [address] Referring Cardiac Surg 03/14/20 Miah Hinson MD [address] [place] [address] [place] [address] Home Care Provider Cardiothoracic Surgery 03/14/20 Tiara Cho RN [address] [place] [address] Senior Engineer Post Acute Care 03/14/20 Virginia Jha, ELIEZER Specialty Motor Room Controller Radiation Oncology 03/16/25 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 Start Date End Date Tania West MD [address] [place] [address] PCP - General Family Medicine 02/03/20 Tania Wells MD [address] [place] [address] Cardiology 01/06/20 Michelle Lopez APRN.ELDERLY CAREGIVER [address] [place] [address] Referring Cardiac Surg 03/14/20 Miah Hinson MD [address] [place] [address] [place], [place] [id number] Home Care Provider Cardiothoracic Surgery 03/14/20 Tiara Cho, ELIEZER [address] [place], [place] [id number] Senior Engineer Post Acute Care 03/14/20 Virginia Jha, ELIEZER Specialty Motor Room Controller Radiation Oncology 03/16/25 Team Status: Active Member Role/Relationship Status Dates Dr. Tania West MD Family Provider Active Dr. Tania West MD Primary Care Provider Active Team Status: Inactive Member Role/Relationship Status Dates Dr. Tania West MD Primary Care Provider Active Start: April 22, 2025 End: April 22, 2025 Dr. Martha Kim MD Attending Provider Active Start: April 22, 2025 End: April 22, 2025 Dr. Martha Kim MD Referring Provider Active Start: April 22, 2025 End: April 22, 2025 Team Status: Inactive Member Role/Relationship Status Dates Dr. Tania West MD Primary Care Provider Active Start: July 06, 2025 End: July 06, 2025 Dr. Tania West MD Referring Provider Active Start: July 06, 2025 End: July 06, 2025 DAMIEN Bird Attending Provider Active Star t: July 06, 2025 End: July 06, 2025 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 Start Date End Date Tania West MD [address] [facility] [address] [place], [place] [address] PCP - General Family Medicine 02/03/20 Tania Wells MD [address] [place] [address] Cardiology 01/06/20 Michelle Lopez, MARKETING ACCOUNT MANAGER.ELDERLY CAREGIVER [address] [place] [address] Referring Cardiac Surg 03/14/20 Miah Hinson MD [address] [place] [address] [place] [address] Home Care Provider Cardiothoracic Surgery 03/14/20 Tiara Cho, RN [address] [place], [place] [id number] Senior Engineer Post Acute Care 03/14/20 Virginia Jha, ELIEZER Specialty Motor Room Controller Radiation Oncology 03/16/25 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 Start Date End Date Tania West MD [address] [facility] [address] [place] [address] PCP - General Family Medicine 02/03/20 Tania Wells MD [address] [place] [address] Cardiology 01/06/20 Michelle Lopez, MARKETING ACCOUNT MANAGER.ELDERLY CAREGIVER [address] [place] [address] Referring Cardiac Surg 03/14/20 Miah Hinson MD [address] [place] [address] [place] [address] Home Care Provider Cardiothoracic Surgery 03/14/20 Tiara Cho, RN [address] [place] [address] Senior Engineer Post Acute Care 03/14/20 Virginia Jha, ELIEZER Specialty Motor Room Controller Radiation Oncology 03/16/25 Team Status: Active Member Role/Relationship Status Dates Dr. Tania West MD Primary care physician Active Team Status: Inactive Member Role/Relationship Status Dates Dr. Tania West MD Primary care physician Active Start: April 22, 2025 End: April 22, 2025 Dr. Martha Kim MD Attending physician Active Start: April 22, 2025 End: April 22, 2025 Dr. Martha Kim MD Referring Provider Active Start: April 22, 2025 End: April 22, 2025 Team Status: Inactive Member Role/Relationship Status Dates Dr. Tania West MD Primary care physician Active Start: July 06, 2025 End: July 06, 2025 Dr. Tania West MD Referring Provider Active Start: July 06, 2025 End: July 06, 2025 DAMIEN Bird Attending physician Active Sta rt: July 06, 2025 End: July 06, 2025 Team Status: Inactive Member Role/Relationship Status Dates Dr. Tania West MD Primary care physician Active Start: July 20, 2025 End: July 20, 2025 Dr. Martha Kim MD Attending physician Active Start: July 20, 2025 End: July 20, 2025 Dr. Martha Kim MD Referring Provider Active Start: July 20, 2025 End: July 20, 2025 FOR RECORDS PERTAINING TO PATIENTS WHO ARE [...] BE BASED ON THE PRIMARY CLINICAL RECORDS. [employer] provides no warranty or guarantee of the accuracy or completeness of information in this document.
[2025-10-19 18:10] LABS: AST(SGOT) 24 U/L (<=37); Alanine Aminotransfer ALT/SGPT 31 U/L (<=46); Albumin, Serum 4.6 g/dL (3.4-4.8); Alkaline Phosphatase 109 U/L (40-129); Anion Gap 13 (5-15); BUN 14 mg/dL (4-19); BUN/Creat Ratio 13.3 RATIO (10-20); Calcium,Total 9.8 mg/dL (7.6-11.0); Carbon Dioxide 24.6 mmol/L (21.0-32.0); Chloride 104 mmol/L (98-108); Globulin 2.4 g/dL (2.2-4.2); Glucose 89 mg/dL (70-99); Potassium 4.6 mmol/L (3.3-5.1)
== END | disposition home or self-care (01) ==
LOC: MTLAB 14:47
PROVIDERS: PCP Family Medicine; Referring Provider Internal Medicine Rheumatology; Visit Provider Internal Medicine Rheumatology
DX: M05.70 Rheumatoid arthritis with rheumatoid factor of unspecified site without organ or systems involvement (principal); Z79.899 Other long term (current) drug therapy
CPT/HCPCS: 36415; 80053; 85025

== ENCOUNTER → 2025-10-21 | Outpatient (CLI) | payer MEDICARE, SELFPAY ==
--- NOTE | 2025-10-21 12:49 | ECHOD_ITS ---
Reason For Study Reason For Study: TAA Procedure This was a 2D Doppler, Color Flow transthoracic echocardiogram. Myocardial strain analysis was performed in this exam to aid in the assessment of cardiac function. Exam performed in department. Left Ventricle Normal LV size. The left ventricular ejection fraction is 65 %. No regional wall motion abnormalities noted. Right Ventricle Normal RV size. Normal systolic function. Atria Normal left atrium. Normal right atrium. Mitral Valve Normal mitral valve. Mild (1+) eccentric mitral valve insufficiency. Tricuspid Valve Normal tricuspid valve. Mild (1+) tricuspid valve insufficiency. Pulmonary artery systolic pressure is 24 mmHg. Aortic Valve Trisinus/trileaflet aortic valve. Pulmonic Valve Normal pulmonic valve. Great Vessels Normal aortic root. The pulmonary artery is normal size. Normal inferior vena cava. Pericardium/Pleural No pericardial effusion. MMode/2D Measurements & Calculations LVIDd: 5.4 cm IVSd: 0.96 cm asc Aorta Diam: 3.3 cm LVIDs: 3.1 cm LVPWd: 0.98 cm RVDd: 4.4 cm FS: 43.2 % LAV(MOD-bp): 68.3 ml LVAd ap4: 28.0 cm2 LVAd ap2: 33.8 cm2 LAV(MOD-bp) Indexed: 31.0 ml/m2 LVLd ap4: 7.5 cm LVLd ap2: 8.5 cm LAV(MOD-sp2): 72.2 ml EDV(MOD-sp4): 86.7 ml EDV(MOD-sp2): 111.2 ml LAV(MOD-sp4): 64.2 ml EDV(sp4-el): 88.6 ml EDV(sp2-el): 114.4 ml LVAs ap4: 15.8 cm2 LVAs ap2: 17.1 cm2 LVLs ap4: 6.0 cm LVLs ap2: 6.8 cm ESV(MOD-sp4): 33.4 ml ESV(MOD-sp2): 37.0 ml ESV(sp4-el): 35.2 ml ESV(sp2-el): 36.9 ml EF(MOD-sp4): 61.5 % EF(MOD-sp2): 66.7 % EF(sp4-el): 60.3 % SV(MOD-sp4): 53.3 ml SV(MOD-sp2): 74.2 ml SV(sp4-el): 53.4 ml SI(MOD-sp4): 24.2 ml/m2 SI(MOD-sp2): 33.7 ml/m2 LA A4 area: 20.6 cm2 LA dimension(2D): 4.9 cm RA A4 area: 15.7 cm2 TAPSE: 1.6 cm Time Measurements MV dec time: 0.22 sec Doppler Measurements & Calculations MV E max sina: 78.6 cm/sec Lat Peak E' Sina: 10.7 cm/sec Med Peak E' Sina: 8.8 cm/sec MV A max sina: 67.0 cm/sec E/E' lat: 7.3 E/E' med: 8.9 MV E/A: 1.2 Ao V2 max: 105.2 cm/sec LV V1 max: 89.0 cm/sec MV dec slope: 360.5 cm/sec2 Ao max P.4 mmHg LV V1 max P.2 mmHg Ao V2 mean: 71.5 cm/sec LV V1 mean P.6 mmHg Ao mean P.3 mmHg LV V1 mean: 58.9 cm/sec Ao V2 VTI: 24.2 cm LV V1 VTI: 20.2 cm AV (velocity ratio): 0.83 PA V2 max: 107.8 cm/sec PI end-d sina: 93.1 cm/sec TR max sina: 233.6 cm/sec TR max P.8 mmHg ECHO/Echo Complete Interpretation Summary Normal LV size. The left ventricular ejection fraction is 65 %. Mild (1+) tricuspid valve insufficiency. Pulmonary artery systolic pressure is 24 mmHg. Structurally normal valves. The global longitudinal strain is normal. The globa l longitudinal strain = -19.4 % (normal). Ordering Physician: Saranya Hawkins Referring Physician: Gianfranco West Performed By: Sarthak Chinchilla RDCS
== END | disposition home or self-care (01) ==
LOC: CVS 12:47
PROVIDERS: PCP Family Medicine; Referring Provider Physician Assistant Medical; Visit Provider Physician Assistant Medical
DX: Z98.890 Other specified postprocedural states (principal)
CPT/HCPCS: 93306